=== PATIENT | female | born 1990 | race Caucasian/White ===

== ENCOUNTER 2023-08-05 14:17 | Outpatient (OUT) | payer BC, SELFPAY ==
--- NOTE | 2023-08-05 14:19 | US_ITS ---
[address] [address] Patient Name: ELVIN STUART MRN: [id number] date: 1990 Sex: F Assigned Patient Location: US Current Patient Location: US Accession/Order Number: [id number] Exam Date: 08/05/2023 14:20 Report Date: 08/05/2023 15:55 At the request of: RADAMES CHAUHAN Procedure: US OB transvaginal EXAMINATION: US OB transvaginal HISTORY: MISSED MENSES COMPARISON: No relevant comparison available. FINDINGS: GESTATIONAL SAC: Present and normal appearing. YOLK SAC: Present and normal appearing. POLE: Present and normal appearing. CARDIAC: Present. UTERUS: Normal size and appearance. OVARIES: Right: Normal. Left: Corpus lutein cyst. CERVIX: 3.8 cm in length and closed. CUL-DE-SAC: Normal. OTHER: None. AGE BY LMP: 7 weeks 5 days LOLLY BY LMP: 03/18/2024 AGE BY US CRL: 8 weeks 0 days LOLLY BY US CRL: 03/16/2024 US/US OB transvaginal IMPRESSION: 1. Single live intrauterine . Electronically authenticated by: BLU FELIPE Date: 08/05/2023 15:55
== END 2023-08-05 14:18 | disposition home or self-care (01) ==
LOC: US 14:17
PROVIDERS: Visit Provider Obstetrics & Gynecology
DX: Z34.91 Encounter for supervision of normal pregnancy, unspecified, first trimester (principal); N92.6 Irregular menstruation, unspecified
CPT/HCPCS: 76817

== ENCOUNTER 2023-09-04 08:38 | Outpatient (OUT) | payer BC, SELFPAY ==
[2023-09-04 09:13] LABS: Basophils Absolute Auto 0.1 10^3/uL (0.0-0.1); Basophils Percent Auto 1.1 % (0.2-2.0); Eosinophils Absolute Auto 0.2 10^3/uL (0.0-0.7); Eosinophils Percent Auto 2.3 % (0.9-7.0); Hematocrit 41.4 % (36.0-48.0); Hemoglobin 13.7 g/dL (12.0-16.0); Immature Granulocytes Abs Auto 0.04 10^3/uL (0.00-0.03); Immature Granulocytes Pct Auto 0.5 % (0.0-0.5); Lymphocytes Absolute Auto 2.2 10^3/uL (1.2-3.8); Lymphocytes Percent Auto 25.3 % (20.5-60.0); Mean Corpuscular HGB Conc 33.1 g/dL (29.9-35.2); Mean Corpuscular Hemoglobin 30.6 pg (26.7-34.0); Mean Corpuscular Volume 92.6 fL (81.0-99.0); Mean Platelet Volume 9.3 fL (9.5-13.5); Monocytes Absolute Auto 0.3 10^3/uL (0.3-0.8); Monocytes Percent Auto 3.4 % (1.7-12.0); Neutrophils Percent Auto 67.4 % (43.0-75.0); Platelet Count 312 10^3/uL (150-450); Red Blood Count 4.47 10^6/uL (4.20-5.40); Red Cell Distribution Width 14.1 % (11.0-15.0); White Blood Count 8.8 10^3/uL (4.0-11.0)
[2023-09-04 09:25] LABS: Estimated Average Glucose 88 mg/dL; Glycohemoglobin A1C 4.7 % (4.5-6.2)
[2023-09-04 09:35] LABS: Thyroid Stimulating Hormone 5.807 uIU/mL (0.358-3.740)
[2023-09-05 08:09] LABS: HBsAg Screen Negative (Negative); HCV Ab Non Reactive (Non Reactive); HIV Ab/p24 Ag Screen Non Reactive (Non Reactive); Rubella Antibodies, IgG 2.85 index (Immune >0.99)
[2023-09-05 09:08] LABS: Rapid Plasma Reagin, Quant Non Reactive titer (NonRea<1:1)
== END 2023-09-04 08:39 | disposition home or self-care (01) ==
LOC: LAB 08:39
PROVIDERS: Visit Provider Obstetrics & Gynecology
DX: N92.6 Irregular menstruation, unspecified (principal)
CPT/HCPCS: 36415; 83036; 84443; 85025; 86592; 86762; 86803; 86850; 86900; 86901; 87086; 87340; 87389

== ENCOUNTER 2023-11-03 13:00 | Outpatient (OUT) | payer BC, SELFPAY ==
--- NOTE | 2023-11-03 13:02 | US_ITS ---
[address] [address] Patient Name: ELVIN STUART MRN: [id number] date: 1990 Sex: F Assigned Patient Location: Current Patient Location: US Accession/Order Number: [id number] Exam Date: 11/03/2023 13:03 Report Date: 11/03/2023 15:09 At the request of: RADAMES CHAUHAN Procedure: US OB cervical length EXAMINATION: US OB anatomy, US OB cervical length HISTORY: ANATOMY COMPARISON: No relevant comparison available. FINDINGS: Heart Rate: 148.0 bpm Amniotic Fluid Volume: Subjectively normal Number: 1.0 Position: Transverse presentation, transverse lie Placenta: Posterior, grade 1. The placental edge is 2.1 cm from the os Cervix: 4.5 cm, closed Normal anatomy: Lateral ventricles, cerebellum, posterior fossa, nose, lips, orbits, four-chamber heart, RVOT, LVOT, diaphragm, stomach, kidneys, abdominal cord insertion, bladder, umbilical arteries, three-vessel cord, spine, extremities BIOMETRY: BPD: 4.5 cm cm; 19 weeks 3 days; 11% HC: 18.1 cmcm; 20 weeks 3 days , 37% AC: 15.8 cm cm; 20 weeks 6 days, 55% FL: 4.1 cm cm; 23 weeks 2 days; 97.0 % % EFW: 447.8 grams, 1 lb. 0 oz., 96% FL/AC: 26.1 FL/BPD: 92.2 HC/AC: 1.2 GESTATIONAL AGE: Age by EDC: 20 weeks 4 days LOLLY by EDC: 03/18/2024 Age by US: 20 weeks 0 days LOLLY by US: 03/15/2024 US/US OB cervical length IMPRESSION: Normal anatomy scan Closed cervix measuring 4.5 cm in length Electronically authenticated by: JESSE THOMAS Date: 11/03/2023 15:09
--- NOTE | 2023-11-03 13:02 | US_ITS ---
[address] [address] Patient Name: ELVIN STUART MRN: [id number] date: 1990 Sex: F Assigned Patient Location: Current Patient Location: US Accession/Order Number: [id number] Exam Date: 11/03/2023 13:03 Report Date: 11/03/2023 15:09 At the request of: RADAMES CHAUHAN Procedure: US OB anatomy EXAMINATION: US OB anatomy, US OB cervical length HISTORY: ANATOMY COMPARISON: No relevant comparison available. FINDINGS: Heart Rate: 148.0 bpm Amniotic Fluid Volume: Subjectively normal Number: 1.0 Position: Transverse presentation, transverse lie Placenta: Posterior, grade 1. The placental edge is 2.1 cm from the os Cervix: 4.5 cm, closed Normal anatomy: Lateral ventricles, cerebellum, posterior fossa, nose, lips, orbits, four-chamber heart, RVOT, LVOT, diaphragm, stomach, kidneys, abdominal cord insertion, bladder, umbilical arteries, three-vessel cord, spine, extremities BIOMETRY: BPD: 4.5 cm cm; 19 weeks 3 days; 11% HC: 18.1 cmcm; 20 weeks 3 days , 37% AC: 15.8 cm cm; 20 weeks 6 days, 55% FL: 4.1 cm cm; 23 weeks 2 days; 97.0 % % EFW: 447.8 grams, 1 lb. 0 oz., 96% FL/AC: 26.1 FL/BPD: 92.2 HC/AC: 1.2 GESTATIONAL AGE: Age by EDC: 20 weeks 4 days LOLLY by EDC: 03/18/2024 Age by US: 20 weeks 0 days LOLLY by US: 03/15/2024 US/US OB anatomy IMPRESSION: Normal anatomy scan Closed cervix measuring 4.5 cm in length Electronically authenticated by: JESSE THOMAS Date: 11/03/2023 15:09
== END 2023-11-03 13:01 | disposition home or self-care (01) ==
LOC: US 13:01
PROVIDERS: Visit Provider Obstetrics & Gynecology
DX: O26.812 Pregnancy related exhaustion and fatigue, second trimester (principal); E03.9 Hypothyroidism, unspecified; Z36.89 Encounter for other specified antenatal screening; Z3A.20 20 weeks gestation of pregnancy
CPT/HCPCS: 36415; 76805; 76817; 82105; 82728; 85025; 86376

== ENCOUNTER 2023-11-03 15:50 | Outpatient (OUT) | payer BC, SELFPAY ==
--- OUTSIDE RECORDS SUMMARY | 2023-11-04 10:05 | XMS_ITS | CCD ---
Author Name Unknown Address [address] [place] [address] Organization [facility] Care Team Providers Care Chief Of Production Name Role Phone Bruce Mayes Attending Unavailable [...] HER Unavailable Unavaila ble OBGYN IVF RDMS [id number] 1, MG OBGYN Unavailable Unavailable King Guevara Unavailable Unavailable Shahla Healy Unavailable Unavailable January, Jami Unavailable Unavailable Evelyn Perez Unavailable [phone] Unavailable Unavailable Unavailable Unavailable Sabina Barnhart Unavailable [...] DR CRUM Admitting Unavailable GISSEL ., DR CRMU Consulting Unavailable KARASIK ., DR SHETH Consulting [...] Admkaterine Unavailable AnaEvelyn santana Primary Care Provider [phone] JAMI ROMERO Attending Unavailable ANA, EVELYN Husain Primary Care UnavailEVELYN Tomlinson Primary Care Unavailleyda e Lc Waite Admitting Evelyn Patino [facility] Unavailable Lc Waite Attending Unavailable SHERMAN HUNTER Attending Unavailable Link [facility], Zoya Cheung Attending Robert Perez MD, Evelyn Gracia Primary Care Evelyn Hernandez MD Primary [facility] [place] Zamzam Buitrago APRNSIVA, Zoya Cheung Attending Robert ilable Allergies Allergy Classification Reported Allergen(s) Allergy Type Date of Onset Reaction(s) Facility Progesterone (2 sources) Progesterone; Translations: [Progesterone OIL] Drug Allergy [id number] n 310 IVF Work Phone: (16 sources) Progesterone; Translations: [Progesterone OIL] Drug Allergy 2 [facility] (2 sources) sesame seed extract Drug Allergy [facility] (1 source) No Known Medication Allergies; Translations: [No Known Medication Allergies] Propensity to adverse reactions to drug (disorder) [facility] Repository Medications Current Medications Medication Drug Class(es) [...] Kelechi Gage MD Start : 14-Aug-2019 Active [id number] 200 actuat albuterol 0.09 mg/actuat metered dose [...] DO Start : 19-Jan-2019 Active BD Disp Devon 27G X 1/2 (19 sources) Start: 10-03-2019 BD Disp Needle s 27G X 1/2 USE DIRECTED. Quantity: 2 Refills: 2 Shahla Healy MD Start : 03-Oct-2019 Active chorionic gonadotropin 71986 unt/ml injectable solution (19 sources) Gonadotropin Start: 10-03-2019 Chorionic Gonadotropin 14647 UNIT Intramuscular Solution Reconstituted USE DIRECTED. Quantity: [...] 75 UNIT Daily Quantity: 1 Refills: 4 Shahal Healy MD Start : 03-Oct-2019 Active 0.42 [...] Start : 25-Dec-2019 Active Peak Flow Meter Woodland Rang Device (3 sources) Start: 01-23-2020 Peak Flow Mete r Woodland Rang Device USE DIRECTED. Quantity: 1 Refills: [...] Demographics: Name: KIARA ASHLEY Date: 1990 Address: [address] [place] [address] Date and Time: 12-Jul-2023 09:31 Caller Information: call from Call From: patient Caller Name: Kiara Primary Phone Number: [phone] Reason for Call: Reason for Callmedication question [...] 09:57 by Harmony Ross (N MGR) Normal [facility] XR ANKLE LEFT (MIN 3 [...] Dario William MD 02/27/23 Final result Normal [facility] 1. No acute osseous abnormality involving the left ankle. [facility] RIS CONSOLIDATED EXAMINATION: THREE XRAY VIEWS OF [...] acute osseous abnormality involving the left ankle. [facility] Phone: Radiology Study observation (narrative) [facility] Phone: XR ANKLE LEFT (MIN 3 VIEWS)O rdered By: Dario William on 02-27-2023 [facility] Phone: PAP ACOG PANEL 2: 30 to 65on 01-19-2023 . . Normal [facility] Comment on above: Result Comment: Perf ormed at: WB Performed By: #### [id number] #### [facility] [address] [place] [address] Dr. Claire Mayes Age Gdln ACOG Testing 30-65 Normal [facility] Comment on above: Performed By: #### [id number] #### [facility] [address] [address] [address] Claire Mayes DIAGNOSIS: Comment Normal [facility] Comment on above: Result Comment: NEGA TIVE FOR INTRAEPITHELIAL LESION OR MALIGNANCY. Performed at: WB Performed By: #### 4 [id number] #### [facility] [address] [address] [address] Claire Mayes HPV Aptima Negative Normal Negative [facility] Comment on above: Result Comment: This nucleic acid amplification test detects fourteen high-risk HPV types (16,18,31,33,35,39,45,51,52,56,58,59,66,68) without differentiation. Performed at: =G Performed By: #### 4 [id number] #### [facility] [address] [place] [address] Dr. Claire Mayes HPV Genotype Reflex Comment Normal [facility] Comment on above: Result Comment: Crit eria not met, HPV Genotype not performed. Performed at: WB Performed By: #### 4 [id number] #### [facility] [address] [place] [address] Dr. Claire Mayes Methodology: Comment Normal [facility] Comment on above: Result Comment: This liquid based ThinPrep(R) pap test was screened with the use of an image guided system. Performed at: WB Performed By: #### 4 [id number] #### [facility] [address] [place] [address] Dr. Claire Mayes Note: Comment Normal [facility] Comment on above: Result Comment: The Pap smear is a screening test designed to aid in the detection of premalignant and malignant conditions of the uterine cervix. It is not a diagnostic procedure and should not be used as the sole means of detecting cervical cancer. Both false-positive and false-negative reports do occur. . Performed at: WB Performed By: #### [id number] #### [facility] [address] [place] [address] Dr. Claire Mayes Performed by: Comment Normal [facility] Comment on above: Result Comment: Sherlyn Wright, Editor Continuity And Script (ASCP) Performed at: WB Performed By: #### [id number] #### [facility] [address] [place] [address] Dr. Claire Mayes Specimen adequacy: Comment Normal [facility] Comment on above: Result Comment: Sati sfactory for evaluation. No endocervical component is identified. Performed at: WB Performed By: #### 4 [id number] #### [facility] [address] [place] [address] Dr. Claire Mayes CBC with Diffon 09-22-2022 Abs. Basophil 0.03 k/uL Normal 0.00-0.20 [facility] Comment on above: Performed By: #### L IP, CDP, CP #### [address] [place], [place] [id number] Box Inspector: Jesse Curry MD Abs.Imm.Granulocy te 0.04 k/uL Normal 0.00-0.30 [facility] Comment on above: Performed By: #### L IP, CDP, CP #### [address] [place], [facility]83 Box Inspector: Jesse Curry MD Abs.Neutrophil (Seg) 12.54 k/uL High 1.50-8.10 [facility] Comment on above: Performed By: #### L IP, CDP, CP #### [address] [place] [id number] Box Inspector: Jesse Curry MD Basophils/100 WBC (Bld) 0 % Normal 0-2 [facility] Comment on above: Performed By: #### L IP, CDP, CP #### [address] [place], [facility] Box Inspector: Jesse Curry MD Eosinophils (Bld) [#/Vol] 0.16 10*3/uL Normal 0.00-0.44 [facility] Comment on above: Performed By: #### L IP, CDP, CP #### [address] [place], [facility]83 Box Inspector: Jesse Curry MD Eosinophils/100 WBC (Bld) 1 % Normal 1-4 [facility] Comment on above: Performed By: #### L IP, CDP, CP #### [address] [place], [facility]83 Box Inspector: Jesse Curry MD Erythrocyte distribution width (RBC) [Ratio] 13.6 % Normal 11.8-14.4 [facility] Comment on above: Performed By: #### L IP, CDP, CP #### [address] [place], [facility]83 Box Inspector: Jesse Curry MD Hematocrit (Bld) [Volume fraction] 46.4 % Normal 36.3-47.1 [facility] Comment on above: Performed By: #### L IP, CDP, CP #### [facility] [address] [place], [place] [id number] Box Inspector: Jesse Curry MD Hemoglobin (Bld) [Mass/Vol] 15.6 g/dL High 11.9-15.1 [facility] Comment on above: Performed By: #### L IP, CDP, CP #### [address] [place], [place] [id number] Box Inspector: Jesse Curry MD Immature granulocytes/100 WBC (Bld) 0 % Normal 0 [facility] Comment on above: Performed By: #### L IP, CDP, CP #### [facility] [address] [place] [address] Dr. [place], [place] [id number] Box Inspector: Jesse Curry MD Lymphocytes (Bld) [#/Vol] 0.98 10*3/uL Low 1.10-3.70 [facility] Comment on above: Performed By: #### L IP CDP, CP #### [address] [place], [place] [id number] Box Inspector: Jesse Curry MD Lymphocytes/100 WBC (Bld) 7 % Low 24-43 [facility] Comment on above: Performed By: #### L IP, CDP, CP #### [facility] [address] [place] [address] Dr. [place], [place] [id number] Box Inspector: Jesse Curry MD MCH (RBC) [Entitic mass] 30.4 pg Normal 25.2-33.5 [facility] Comment on above: Performed By: #### L IP, CDP, CP #### [facility] [address] [place] [address] Dr. [place], [place] [id number] Box Inspector: Jesse Curry MD MCHC (RBC) [Mass/Vol] 33.6 g/dL Normal 28.4-34.8 [facility] Comment on above: Performed By: #### L BJ BUCK, CP #### [facility] [address] [place], [place] [id number] Box Inspector: Jesse Curry MD MCV (RBC) [Entitic vol] 90.3 fL Normal 82.6-102.9 [facility] Comment on above: Performed By: #### L IP CDP, CP #### [address] [place] [address] Box Inspector: Jesse Curry MD Monocytes (Bld) [#/Vol] 0.58 10*3/uL Normal 0.10-1.20 [facility] Comment on above: Performed By: #### L BJ BUCK, CP #### [address] [place], [facility]83 Box Inspector: Jesse Curry MD Monocytes/100 WBC (Bld) 4 % Normal 3-12 [facility] Comment on above: Performed By: #### L BJ BUCK, CP #### [address] [place], [place] [id number] Box Inspector: Jesse Curry MD Neutrophil (Seg) 88 % High 36-65 [facility] Comment on above: Performed By: #### L BJ BUCK, CP #### [address] [place], [place] [id number] Box Inspector: Jesse Curry MD NRBC Automated 0.0 per 100 WBC Normal 0.0 [facility] Comment on above: Performed By: #### L BJ BUCK, CP #### [address] [place], [place] [id number] Box Inspector: Jesse Curry MD Platelet mean volume (Bld) [Entitic vol] 9.9 fL Normal 8.1-13.5 [facility] Comment on above: Performed By: #### L IP CDP, CP #### [facility] [address] [place], [place] [id number] Box Inspector: Jesse Curry MD Platelets (Bld) [#/Vol] 299 10*3/uL Normal 138-453 [facility] Comment on above: Performed By: #### L IP CDP, CP #### [facility] [address] [place], [place] [id number] Box Inspector: Jesse Curry MD RBC (Bld) [#/Vol] 5.14 10*6/uL High 3.95-5.11 [facility] Comment on above: Performed By: #### L CIELO CDP, CP #### [address] [place], [place] [id number] Box Inspector: Jesse Curry MD WBC (Bld) [#/Vol] 14.3 10*3/uL High 3.5-11.3 [facility] Comment on above: Performed By: #### L CIELO CDP, CP #### [address] [place], [facility]83 Box Inspector: Jesse Curry MD CT ABDOMEN PELVIS W [...] A Maldonado DO 09/22/22 Final result Normal [facility] Comp Metabolic Profon 2021 Albumin [Mass/Vol] 4.7 g/dL Normal 3.5-5.2 [facility] Comment on above: Performed By: #### L CIELO CDP, CP #### [facility] [address] [place] [address] [place] [id number] Box Inspector: Jesse Curry MD Albumin/Glob Ratio 2.0 Normal 1.0-2.5 [facility] Comment on above: Performed By: #### L CIELO CDP, CP #### [facility] [address] [place] [address] [place] [id number] Box Inspector: Jesse Curry MD Alkaline Phos 77 U/L Normal 35-104 [facility] Comment on above: Performed By: #### L CIELO CDP, CP #### [address] [place] [address] Box Inspector: Jesse Curry MD ALT [Catalytic activity/Vol] 10 U/L Normal 5-33 [facility] Comment on above: Performed By: #### L IP, CDP, CP #### [facility] [address] [place] [address] Dr. [place], [place] [id number] Box Inspector: Jesse Curry MD Anion gap [Moles/Vol] 12 mmol/L Normal 9-17 [facility] Comment on above: Performed By: #### L IP, CDP, CP #### [facility] [address] [place], [place] [id number] Box Inspector: Jesse Curry MD AST [Catalytic activity/Vol] 14 U/L Normal <32 [facility] Comment on above: Performed By: #### L IP, CDP, CP #### [facility] [address] [place], [place] [id number] Box Inspector: Jesse Curry MD Bilirubin [Mass/Vol] 0.6 mg/dL Normal 0.3-1.2 [facility] Comment on above: Performed By: #### L IP, CDP, CP #### [facility] [address] [place] [address] Dr. [place], [place] [id number] Box Inspector: Jesse Curry MD BUN/CRE Ratio 31 High 9-20 [facility] Comment on above: Performed By: #### L IP, CDP, CP #### [address] [place], [place] [id number] Box Inspector: Jesse Curry MD Calcium [Mass/Vol] 9.8 mg/dL Normal 8.6-10.4 [facility] Comment on above: Performed By: #### L IP, CDP, CP #### [facility] [address] [place] [address] Dr. [place], [place] [id number] Box Inspector: Jesse Curry MD Chloride [Moles/Vol] 104 mmol/L Normal 98-107 [facility] Comment on above: Performed By: #### L IP, CDP, CP #### [facility] [address] [place], [place] [id number] Box Inspector: Jesse Curry MD CO2 [Moles/Vol] 22 mmol/L Normal 20-31 [facility] Comment on above: Performed By: #### L IP, CDP, CP #### [facility] [address] [place] [address] Box Inspector: Jesse Curry MD Creatinine [Mass/Vol] 0.85 mg/dL Normal 0.50-0.90 [facility] Comment on above: Performed By: #### L IP, CDP, CP #### [facility] [address] [place] [address] Box Inspector: Jesse Curry MD GFR/1.73 sq M.predicted among non-blacks MDRD (S/P/Bld) [Vol rate/Area] mL/min/{1.73_m2} Normal >60 [facility] Comment on above: Result Comment: Effective Aug [...] By: #### L CIELO CDP, CP #### [facility] [address] [place] [address] Box Inspector: Jesse Curry MD Glucose [Mass/Vol] 109 mg/dL High 70-99 [facility] Comment on above: Performed By: #### L IP, CDP, CP #### [facility] [address] [place] [address] Box Inspector: Jesse Curry MD Potassium [Moles/Vol] 4.0 mmol/L Normal 3.7-5.3 [facility] Comment on above: Performed By: #### L IP, CDP, CP #### [facility] [address] [place] [address] Box Inspector: Jesse Curry MD Protein [Mass/Vol] 7.1 g/dL Normal 6.4-8.3 [facility] Comment on above: Performed By: #### L BJ BUCK, CP #### [facility] [address] [place] [address] Box Inspector: Jesse Curry MD Sodium [Moles/Vol] 138 mmol/L Normal 135-144 [facility] Comment on above: Performed By: #### L IP CDP, CP #### [facility] [address] [place] [address] Box Inspector: Jesse Curry MD Urea nitrogen [Mass/Vol] 26 mg/dL High 6-20 [facility] Comment on above: Performed By: #### L BJ BUCK, CP #### [facility] [address] [place] [address] Box Inspector: Jesse Curry MD HCG, ,Urineon 09-22 Beta HCG ( test) Ql (U) Negative Normal NEG [facility] Comment on above: Result Comment: Spec imens with hCG levels near the threshold of the test (25 mIU/mL) may give a negative or indeterminate result. In such cases, another test should be performed with a new specimen in 48-72 hours. If early is suspected clinically in this setting, correlation with quantitative serum b-hCG level is suggested. [facility] has confirmed the use of plasma for this test. This has not been cleared or approved by the U.S. Food and Drug Administration. The FDA has determined that such clearance is not necessary. Performed By: #### U HCG #### [facility] [address] [place] [address] Box Inspector: Jesse Curry MD Lactic Acidon 09-22-2022 Lactate [Moles/Vol] 1.8 mmol/L Normal 0.5-2.2 [facility] Comment on above: Performed By: #### L ACTIC #### [facility] [address] [place] [address] Box Inspector: Jesse Curry MD Lipaseon 09-22-2022 Lipase [Catalytic activity/Vol] 39 U/L Normal 13-60 [facility] Comment on above: Performed By: #### L IP, CDP, CP #### [facility] [address] [place], [place] [id number] Box Inspector: Jesse Curry MD UA w/Reflex Cultureon 2021 Bilirubin, SemiQt,Ur Negative Normal NEG [facility] Comment on above: Performed By: #### U MICAO, UAX #### [facility] [address] [place], [facility]83 Box Inspector: Jesse Curry MD Blood, Urine Negative Normal NEG [facility] Comment on above: Performed By: #### U MICAO, UAX #### [facility] [address] [place], [facility] Box Inspector: Jesse Curry MD Clarity (U) Clear Normal CLEAR [facility] Comment on above: Performed By: #### U MICAO, UAX #### [facility] [address] [place] [address] Dr. [place], [place] [id number] Box Inspector: Jesse Curry MD Color (U) Yellow Normal YEL [facility] Comment on above: Performed By: #### U MICAO, UAX #### [facility] [address] [place], [facility] Box Inspector: Jesse Curry MD Glucose Ql (U) Negative Normal NEG [facility] Comment on above: Performed By: #### U MICAO, UAX #### [facility] [address] [place], [place] [id number] Box Inspector: Jesse Curry MD Ketones Ql (U) Negative Normal NEG [facility] Comment on above: Performed By: #### U MICAO, UAX #### [facility] [address] [place] [address] Dr. [place], [place] [id number] Box Inspector: Jesse Curry MD Leukocyte esterase Test strip Ql (U) Negative Normal NEG [facility] Comment on above: Performed By: #### U MICAO, UAX #### [address] [place], [place] [id number] Box Inspector: Jesse Curry MD Nitrite,Ur Negative Normal NEG [facility] Comment on above: Performed By: #### U MICAO, UAX #### [address] [place], [facility] Box Inspector: Jesse Curry MD PH,Ur 8.0 Normal 5.0-9.0 [facility] Comment on above: Performed By: #### U MICAO, UAX #### [address] [place], [facility]83 Box Inspector: Jesse Curry MD Protein Ql (U) Negative Normal NEG [facility] Comment on above: Performed By: #### U MICAO, UAX #### [address] [place], [facility] Box Inspector: Jesse Curry MD Spec. [place],Ur 1.020 Normal 1.010-1.020 [facility] Comment on above: Performed By: #### U MICAO, UAX #### [address] [place], [facility]83 Box Inspector: Jesse Curry MD Urobilinogen,Ur Normal Normal NORM [facility] Comment on above: Performed By: #### U MICAO, UAX #### [address] [place], [facility] Box Inspector: Jesse Curry MD Urinalysis,Microon 2 Bacteria TRACE Abnormal NONE [facility] Comment on above: Performed By: #### U MICAO, UAX #### [facility] [address] [place], [place] [id number] Box Inspector: Jesse Curry MD Epithelial cells LM Ql (Urine sed) 0 TO 2 Normal 0-25 [facility] Comment on above: Performed By: #### U MICAO, UAX #### [facility] [address] [place], [place] [id number] Box Inspector: Jesse Curry MD Urine RBC's None Normal 0-2 [facility] Comment on above: Performed By: #### U MICAO, UAX #### [facility] [address] [place] [address] Box Inspector: Jesse Curry MD Urine WBC's 0 TO 2 Normal 0-5 [facility] Comment on above: Performed By: #### U MICAO, UAX #### [facility] [address] [place] [address] Box Inspector: Jesse Curry MD CBC AUTO DIFFon 02-20-2022 BASO # 0.1 103/ul Normal 0.0-0.1 [facility] Comment on above: Performed By: #### C BC #### [facility] [address] [place] [address] Dr. Claire Mayes Basophils/100 WBC (Bld) 0.8 % Normal 0.2-2.0 [facility] Comment on above: Performed By: #### C BC #### [facility] [address] [place] [address] Dr. Claire Mayes EO # 0.2 103/ul Normal 0.0-0.7 [facility] Comment on above: Performed By: #### C BC #### [facility] [address] [place] [address] Dr. Claire Mayes Eosinophils/100 WBC (Bld) 0.9 % Normal 0.9-7.0 [facility] Comment on above: Performed By: #### C BC #### [facility] [address] [place] [address] Dr. Claire Mayes Erythrocyte distribution width (RBC) [Ratio] 15.0 % Normal 11.0-15.0 [facility] Comment on above: Performed By: #### C BC #### [facility] [address] [place] [address] Dr. Claire Mayes Hematocrit (Bld) [Volume fraction] 31.3 % Critically low 36.0-48.0 [facility] Comment on above: Performed By: #### C BC #### [facility] [address] [place] [address] Dr. Claire Mayes Hemoglobin (Bld) [Mass/Vol] 10.3 g/dL Critically low 12.0-16.0 [facility] Comment on above: Performed By: #### C BC #### [facility] [address] [place] [address] Dr. Claire Mayes IG # 0.21 10e3/ul Critically high 0.00-0.03 [facility] Comment on above: Performed By: #### C BC #### [facility] [address] [place] [address] Dr. Claire Mayes IG % 1.3 % Critically high 0.0-0.5 [facility] Comment on above: Performed By: #### C BC #### [facility] [address] [place] [address] Dr. Claire Mayes LYMPH # 2.1 103/ul Normal 1.2-3.8 [facility] Comment on above: Performed By: #### C BC #### [facility] [address] [place] [address] Dr. Claire Mayes Lymphocytes/100 WBC (Bld) 12.6 % Critically low 20.5-60.0 [facility] Comment on above: Performed By: #### C BC #### [facility] [address] [place] [address] Dr. Claire Mayes MANUAL DIFF REQ NO Normal [facility] Comment on above: Performed By: #### C BC #### [facility] [address] [place] [address] Dr. Claire Mayes MCH (RBC) [Entitic mass] 29.8 pg Normal 26.7-34.0 [facility] Comment on above: Performed By: #### C BC #### [facility] [address] [place] [address] Dr. Claire Mayes MCHC (RBC) [Mass/Vol] 32.9 g/dL Normal 29.9-35.2 [facility] Comment on above: Performed By: #### C BC #### [facility] [address] [place] [address] Dr. Claire Mayes MCV (RBC) [Entitic vol] 90.5 fL Normal 81.0-99.0 [facility] Comment on above: Performed By: #### C BC #### [facility] [address] [place] [address] Dr. Claire Mayes MONO # 0.8 103/ul Normal 0.3-0.8 [facility] Comment on above: Performed By: #### C BC #### [facility] [address] [place] [address] Dr. Claire Mayes Monocytes/100 WBC (Bld) 5.1 % Normal 1.7-12.0 [facility] Comment on above: Performed By: #### C BC #### [facility] [address] [place] [address] Dr. Claire Mayes NEUT # 13.2 103/ul Critically high 1.4-6.5 [facility] Comment on above: Performed By: #### C BC #### [facility] [address] [place] [address] Dr. Claire Mayes Neutrophils/100 WBC (Bld) 79.3 % Critically high 43.0-75.0 [facility] Comment on above: Performed By: #### C BC #### [facility] [address] [place] [address] Dr. Claire Mayes Platelet mean volume (Bld) [Entitic vol] 10.4 fL Normal 9.5-13.5 [facility] Comment on above: Performed By: #### C BC #### [facility] [address] [place] [address] Dr. Claire Mayes PLT 233 103/ul Normal 150-450 [facility] Comment on above: Performed By: #### C BC #### [facility] [address] [place] [address] Dr. Claire Mayes RBC 3.46 106/ul Critically low 4.20-5.40 [facility] Comment on above: Performed By: #### C BC #### [facility] [address] [place] [address] Dr. Claire Mayes WBC 16.6 103/ul Critically high 4.0-11.0 [facility] Comment on above: Performed By: #### C BC #### [facility] [address] [place] [address] Dr. Claire Mayes CBC AUTO DIFFon 02-18-2022 BASO # 0.1 103/ul Normal 0.0-0.1 [facility] Comment on above: Performed By: #### C BC #### [facility] [address] [place] [address] Dr. Claire Mayes Basophils/100 WBC (Bld) 0.7 % Normal 0.2-2.0 [facility] Comment on above: Performed By: #### C BC #### [facility] [address] [place] [address] Dr. Claire Mayes EO # 0.2 103/ul Normal 0.0-0.7 [facility] Comment on above: Performed By: #### C BC #### [facility] [address] [place] [address] Dr. Claire Mayes Eosinophils/100 WBC (Bld) 1.2 % Normal 0.9-7.0 [facility] Comment on above: Performed By: #### C BC #### [facility] [address] [place] [address] Dr. Claire Mayes Erythrocyte distribution width (RBC) [Ratio] 15.0 % Normal 11.0-15.0 [facility] Comment on above: Performed By: #### C BC #### [facility] [address] [place] [address] Dr. Claire Mayes Hematocrit (Bld) [Volume fraction] 35.1 % Critically low 36.0-48.0 [facility] Comment on above: Performed By: #### C BC #### [facility] [address] [place] [address] Dr. Claire Mayes Hemoglobin (Bld) [Mass/Vol] 11.8 g/dL Critically low 12.0-16.0 [facility] Comment on above: Performed By: #### C BC #### [facility] [address] [place] [address] Dr. Claire Mayes IG # 0.30 10e3/ul Critically high 0.00-0.03 [facility] Comment on above: Performed By: #### C BC #### [facility] [address] [place] [address] Dr. Claire Mayes IG % 1.9 % Critically high 0.0-0.5 [facility] Comment on above: Performed By: #### C BC #### [facility] [address] [place] [address] Dr. Claire Mayes LYMPH # 2.9 103/ul Normal 1.2-3.8 [facility] Comment on above: Performed By: #### C BC #### [facility] [address] [place] [address] Dr. Claire Mayes Lymphocytes/100 WBC (Bld) 18.5 % Critically low 20.5-60.0 [facility] Comment on above: Performed By: #### C BC #### [facility] [address] [place] [address] Dr. Claire Mayes MANUAL DIFF REQ NO Normal [facility] Comment on above: Performed By: #### C BC #### [facility] [address] [place] [address] Dr. Claire Mayes MCH (RBC) [Entitic mass] 30.2 pg Normal 26.7-34.0 [facility] Comment on above: Performed By: #### C BC #### [facility] [address] [place] [address] Dr. Claire Mayes MCHC (RBC) [Mass/Vol] 33.6 g/dL Normal 29.9-35.2 [facility] Comment on above: Performed By: #### C BC #### [facility] [address] [place] [address] Dr. Claire Mayes MCV (RBC) [Entitic vol] 89.8 fL Normal 81.0-99.0 [facility] Comment on above: Performed By: #### C BC #### [facility] [address] [place] [address] Dr. Claire Mayes MONO # 0.7 103/ul Normal 0.3-0.8 [facility] Comment on above: Performed By: #### C BC #### [facility] [address] [place] [address] Dr. Claire Mayes Monocytes/100 WBC (Bld) 4.7 % Normal 1.7-12.0 [facility] Comment on above: Performed By: #### C BC #### [facility] [address] [place] [address] Dr. Claire Mayes NEUT # 11.3 103/ul Critically high 1.4-6.5 [facility] Comment on above: Performed By: #### C BC #### [facility] [address] [place] [address] Dr. Claire Mayes Neutrophils/100 WBC (Bld) 73.0 % Normal 43.0-75.0 [facility] Comment on above: Performed By: #### C BC #### [facility] [address] [place] [address] Dr. Claire Mayes Platelet mean volume (Bld) [Entitic vol] 10.8 fL Normal 9.5-13.5 [facility] Comment on above: Performed By: #### C BC #### [facility] [address] [place] [address] Dr. Claire Mayes PLT 233 103/ul Normal 150-450 [facility] Comment on above: Performed By: #### C BC #### [facility] [address] [place] [address] Dr. Claire Mayes RBC 3.91 106/ul Critically low 4.20-5.40 [facility] Comment on above: Performed By: #### C BC #### [facility] [address] [address] [address] Claire Mayes WBC 15.5 103/ul Critically high 4.0-11.0 [facility] Comment on above: Performed By: #### C BC #### [facility] [address] [address] [address] Claire Mayes Covid-19 PCR ([facility])on SARS-CoV-2 (COVID-19) RNA FERDINAND+probe Ql (Unsp spec) Not detected Normal NOT DETECTED [facility] Comment on above: Result Comment: [...] for this test is supported by the [place] of Health and Human Service's declaration that [...] used). Performed By: #### C VDTBH #### [facility] [address] [address] [address] Claire Mayes DRUG SCREEN RAPID (URINE)on 02-18-2022 AMP Negative Normal NEGATIVE [facility] Comment on above: Performed By: #### D RUGRPD #### [facility] [address] [place] [address] Dr. Claire Mayes BAR Negative Normal NEGATIVE [facility] Comment on above: Performed By: #### D RUGRPD #### [facility] [address] [place] [address] Dr. Claire Mayes BUP Negative Normal NEGATIVE [facility] Comment on above: Performed By: #### D RUGRPD #### [facility] [address] [place] [address] Dr. Claire Mayes BZO Negative Normal NEGATIVE [facility] Comment on above: Performed By: #### D RUGRPD #### [facility] [address] [place] [address] Dr. Claire Mayes KIT Negative Normal NEGATIVE [facility] Comment on above: Performed By: #### D RUGRPD #### [facility] [address] [place] [address] Dr. Claire Mayes CUT-OFFS SEE BELOW Normal [facility] Comment on above: Result Comment: AMP [...] ng/mL Performed By: #### D RUGRPD #### [facility] [address] [place] [address] Dr. Claire Mayes DRUG CUT HEADER DRUG CLASS TEST SYST EM CUT-OFF CONCENTRATIONS ARE FOLLOWS: Normal [facility] Comment on above: Performed By: #### D RUGRPD #### [facility] [address] [place] [address] Dr. Claire Mayes mAMP Negative Normal NEGATIVE [facility] Comment on above: Performed By: #### D RUGRPD #### [facility] [address] [place] [address] Dr. Claire Mayes MTD Negative Normal NEGATIVE [facility] Comment on above: Performed By: #### D RUGRPD #### [facility] [address] [place] [address] Dr. Claire Mayes OPI Negative Normal NEGATIVE [facility] Comment on above: Performed By: #### D RUGRPD #### [facility] [address] [place] [address] Dr. Claire Mayes OXY Negative Normal NEGATIVE [facility] Comment on above: Performed By: #### D RUGRPD #### [facility] [address] [place] [address] Dr. Claire Mayes PCP Negative Normal NEGATIVE [facility] Comment on above: Performed By: #### D RUGRPD #### [facility] [address] [place] [address] Dr. Claire Mayes PPX Negative Normal NEGATIVE [facility] Comment on above: Performed By: #### D RUGRPD #### [facility] [address] [place] [address] Dr. Claire Mayes TCA Negative Normal NEGATIVE [facility] Comment on above: Performed By: #### D RUGRPD #### [facility] [address] [place] [address] Dr. Claire Mayes THC Negative Normal NEGATIVE [facility] Comment on above: Performed By: #### D RUGRPD #### [facility] [address] [place] [address] Dr. Claire Mayes TYPE AND SCREENon 02-18-2022 TYPE AND SCREEN Negative Normal [facility] Comment on above: Performed By: #### T NS #### [facility] [address] [place] [address] Dr. Claire Mayes US PREG BIOPHY W [...] JESSE THOMAS Date: 2022-02-17 14:27 Normal [facility] US PREG BIOPHY W NON [...] BLU FELIPE Date: 2022-02-10 16:40 Normal [facility] GROUP B STREP CULTUREon 01-14 S. agalactiae Ag Ql (Unsp spec) Culture Observations: Beta Strep called to Belgica Lange at office 02/04/22 @[address] [place] [address] Isolate 1 Streptococcus agalactiae Heavy growth of ORGANISM 1 Streptococcus agalactiae ANTIBIOTIC M.I.C RX STATUS Benzylpenicillin <=0.06 S F Ampicillin <=0.25 S F Cefotaxime <=0.12 S F Ceftriaxone <=0.12 S F Levofloxacin 0.5 S F Erythromycin 2 R F Clindamycin <=0.25 S F Linezolid <=2 S F Vancomycin 0.5 S F Tetracycline >=16 R F Normal [facility] Comment on above: Performed By: #### G BSCX #### [facility] [address] [place] [address] Dr. Claire Mayes US PREG BIOPHY W [...] by: JESSE THOMAS Date: 2022-02-03 16:02 Normal [facility] LMPon 06-19-2021 Last menstrual period start date [id number] TP-HRFNP-Jwtai n 310 IVF Work Phone: PRODUCTION CLOTH CUTTER - Office Visiton PRODUCTION CLOTH CUTTER - Office Visit Diagnoses/Problems Assessed Irregular menses (626.4) (N92.6) Female infertility (628.9) (N97.9) Protein S deficiency (289.81) (D68.59) Occupation Formerly [employer] [employer] ED Provider Impressions 30 year-old desires [...] ] Imaging: Saline US, can do at [place] [x ] Vitamin D, TSH, prolactin [ [...] Verbal consent was requested and obtained from KIARA ASHLEY on this date, 06/19/2021 03:00 PM , for a telehealth visit. Pt presents for a FUV to discuss transferring their remaining embryo. Geena GIL. Telemedicine visit due to COVID-19 pandemic. Verbal consent obtained for telemedicine visit. 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 Hx: LMP: 05/29/21 Menstrual cycles: Have been fairly regular for the past 3 months; 30-35 days Pap smear: 2019, up to date Mammogram: None PMH/Surg Hx/Social Hx: See below Hx of Clotting disorders: Yes- Protein S deficiency Currently on Lovenox 40 mg daily Was on Lovenox 60 mg daily prior to Needs to be on therapeutic dosing when Genetic Screening Hx: [employer] screen negative Partner History: Franklin Ashley 04/09/1990 SA in past year: 2.8 cc 125 mil/mL 69% motility WKI=624 million (recent IUI sample) Morph from original SA was 2.8% Active Problems Problems 16 weeks gest (more content not included)... Normal [employer] CBC AND DIFFERENTIALon 08-06 % AUTOMATED IMMATURE GRAN 0.3 % Normal 0.0 - 0.9 [facility] Comment on above: Result Comment: Graciela ture Granulocyte Count (IG) includes promyelocytes, myelocytes and metamyelocytes but does not include bands. Percent differential counts (%) should be interpreted in the context of the absolute cell counts (cells/L). Performed By: #### C BCDF #### [address] [place] [address] Basophils (Bld) [#/Vol] 0.09 10*3/uL Normal 0.00 - 0.10 [facility] Comment on above: Performed By: #### C BCDF #### [address] [place] [address] Basophils/100 WBC (Bld) 0.9 % Normal 0.0 - 2.0 [facility] Comment on above: Performed By: #### C BCDF #### [address] [place] [address] Eosinophils (Bld) [#/Vol] 0.23 10*3/uL Normal 0.00 - 0.70 [facility] Comment on above: Performed By: #### C BCDF #### [address] [place] [address] Eosinophils/100 WBC (Bld) 2.4 % Normal 0.0 - 6.0 [facility] Comment on above: Performed By: #### C BCDF #### [address] [place] [address] Erythrocyte distribution width (RBC) [Ratio] 14.3 % Normal 11.5 - 14.5 [facility] Comment on above: Performed By: #### C BCDF #### [address] [place] [address] Hematocrit (Bld) [Volume fraction] 40.4 % Normal 36.0 - 46.0 [facility] Comment on above: Performed By: #### C BCDF #### [address] [place] [address] Hemoglobin (Bld) [Mass/Vol] 12.9 g/dL Normal 12.0 - 16.0 [facility] Comment on above: Performed By: #### C BCDF #### [address] [place] [address] Lymphocytes (Bld) [#/Vol] 2.44 10*3/uL Normal 1.20 - 4.80 [facility] Comment on above: Performed By: #### C BCDF #### [address] [place] [address] Lymphocytes/100 WBC (Bld) 25.7 % Normal 13.0 - 44.0 [facility] Comment on above: Performed By: #### C BCDF #### [address] [place] [address] MCHC (RBC) [Mass/Vol] 31.9 g/dL Low 32.0 - 36.0 [facility] Comment on above: Performed By: #### C BCDF #### [address] [place] [address] MCV (RBC) [Entitic vol] 88 fL Normal 80 - 100 [facility] Comment on above: Performed By: #### C BCDF #### [address] [place] [address] Monocytes (Bld) [#/Vol] 0.55 10*3/uL Normal 0.10 - 1.00 [facility] Comment on above: Performed By: #### C BCDF #### [address] [place] [address] Monocytes/100 WBC (Bld) 5.8 % Normal 2.0 - 10.0 [facility] Comment on above: Performed By: #### C BCDF #### [address] [place] [address] Neutrophils (Bld) [#/Vol] 6.15 10*3/uL Normal 1.20 - 7.70 [facility] Comment on above: Performed By: #### C BCDF #### [address] [place] [address] Neutrophils/100 WBC (Bld) 64.9 % Normal 40.0 - 80.0 [facility] Comment on above: Performed By: #### C BCDF #### [address] [place] [address] Platelets (Bld) [#/Vol] 410 10*3/uL Normal 150 - 450 [facility] Comment on above: Performed By: #### C BCDF #### [address] [place] [address] RBC (Bld) [#/Vol] 4.58 x10E12/L Normal 4.00 - 5.20 [facility] Comment on above: Performed By: #### C BCDF #### [address] [place] [address] WBC (Bld) [#/Vol] 9.5 10*3/uL Normal 4.4 - 11.3 [facility] Comment on above: Performed By: #### C BCDF #### [address] 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 Reports her asthma is stable. [...] or homicidal ideation Vitals Vital Signs Recorded: [id number] 01:08PM Heart Rate62 Unbqsqfk329 Umvtkhklw58 Height5 ft 2 in Ghnswg132 lb BMI Vfgvjsfwsx50.28 BSA Calculated1.79 Tobacco Useb) No Fall Screeninga) [...] ongoing well-woman care with her current local Tractor Mechanic Helper. She has Hematology follow-up today following our [...] Aug 06 2020 2:00PM EST (Author) Normal E[employer] Education Complete Blood Count + Diffe marc 06-27-2020 Basophils/100 WBC (Bld) 0.5 % 0.0 - 2.0 DE-RJONY-Wfkww [address] Work Phone: Eosinophils (Bld) [#/Vol] 0.24 {x10E9/L} See Below YJ-VJGYN-Lpcpk wn 2nd Fl Work Phone: Comment on above: Reference Range: 0.0 0 - 0.70 Eosinophils/100 WBC (Bld) 1.1 % 0.0 - 6.0 EU-TUZMQ-Sbnpj wn [facility] Fl Work Phone: Erythrocyte distribution width (RBC) [Ratio] 15.0 % above high threshold See Below QL-UBKUH-Elhvd wn 2nd Fl Work Phone: Comment on above: Reference Range: 11. 5 - 14.5 Hematocrit (Bld) [Volume fraction] 30.0 % below low threshold See Below ZW-SKAAZ-Gzabn wn 2nd Fl Work Phone: Comment on above: Reference Range: 36. 0 - 46.0 Hemoglobin (Bld) [Mass/Vol] 9.8 g/dL below low threshold See Below XP-XXPJU-Afpra wn 2nd Fl Work Phone: Comment on above: Reference Range: 12. 0 - 16.0 Lymphocytes (Bld) [#/Vol] 2.25 {x10E9/L} See Below XW-UQCFP-Cqwyx wn 2nd Fl Work Phone: Comment on above: Reference Range: 1.2 0 - 4.80 Lymphocytes/100 WBC (Bld) 10.4 % See Below CC-AHXAX-Zhfxf wn 2nd Fl Work Phone: Comment on above: Reference Range: 13. 0 - 44.0 MCHC (RBC) [Mass/Vol] 32.7 g/dL See Below ZB-VYREP-Uniln wn 2nd Fl Work Phone: Comment on above: Reference Range: 32. 0 - 36.0 MCV (RBC) [Entitic vol] 91 fL 80 - 100 GQ-JIQJQ-Yjrww wn 2nd Fl Work Phone: Monocytes (Bld) [#/Vol] 0.84 {x10E9/L} See Below KI-KDPAW-Cfmpx wn 2nd Fl Work Phone: Comment on above: Reference Range: 0.1 0 - 1.00 Monocytes/100 WBC (Bld) 3.9 % 2.0 - 10.0 RH-ZDMYA-Ttgnr wn 2nd Fl Work Phone: Neutrophils/100 WBC (Bld) 82.7 % See Below QV-CSNER-Famkv wn 2nd Fl Work Phone: Comment on above: Reference Range: 40. 0 - 80.0 Platelets (Bld) [#/Vol] 225 {x10E9/L} 150 - 450 LX-TJCOZ-Kdbxh wn 2nd Fl Work Phone: RBC (Bld) [#/Vol] 3.31 {x10E12/L} below low threshold See Below AZ-BDGBS-Bhwwg wn 2nd Fl Work Phone: Comment on above: Reference Range: 4.0 0 - 5.20 WBC (Bld) [#/Vol] 0.0 {/100_WBC} 0.0-0.0 MG- OBGYN-[address] Work Phone: WBC (Bld) [#/Vol] 21.6 {x10E9/L} above high threshold 4.4 - 11.3 XN-IAAEQ-Yajth wn 2nd Fl Work Phone: Complete Blood Count + Differential 0.11 {x10E9/L} above high threshold See Below KG-VMITL-Tbgzd wn 2nd Fl Work Phone: Comment on above: Reference Range: 0.0 0 - 0.10 Complete Blood Count + Differential 1.4 % above high threshold 0.0 - 0.9 PB-RTISP-Nbknl[address] Work Phone: Comment on above: Immature Granulocyte Count (IG) includes promyelocytes, myelocytes and metamyelocytes but does not include bands. Percent differential counts (%) should be interpreted in the context of the absolute cell counts (cells/L). Complete Blood Count + Differential 17.85 {x10E9/L} above high threshold See Below BQ-QLJDG-Mipkz wn 2nd Fl Work Phone: Comment on above: Reference Range: 1.2 0 - 7.70 Hematologyon 06-26-2020 Hematocrit (Bld) [Volume fraction] 30.5 % below low threshold See Below FI-KAKSX-Jizie wn 2nd Fl Work Phone: Comment on above: Reference Range: 36. 0 - 46.0 Hemoglobin (Bld) [Mass/Vol] 10.7 g/dL below low threshold See Below TZ-OPNEJ-Sndsm wn 2nd Fl Work Phone: Comment on above: Reference Range: 12. 0 - 16.0 MCV (RBC) [Entitic vol] 84 fL 80 - 100 NQ-GOXCG-Dqxgm wn 2nd Fl Work Phone: Platelets (Bld) [#/Vol] 258 {x10E9/L} 150 - 450 TT-YVQDI-Stzxg wn 2nd Fl Work Phone: RBC (Bld) [#/Vol] 3.62 {x10E12/L} below low threshold See Below XN-QUDXQ-Igins wn 2nd Fl Work Phone: Comment on above: Reference Range: 4.0 0 - 5.20 WBC (Bld) [#/Vol] 0.0 {/100_WBC} 0.0-0.0 MG- OBGYN-Midto wn 2nd Fl Work Phone: WBC (Bld) [#/Vol] 35.7 {x10E9/L} above high threshold 4.4 - 11.3 KR-UYZBE-Luvwh wn 2nd Fl Work Phone: Otheron 06-26-2020 Erythrocyte distribution width (RBC) [Ratio] 14.6 % above high threshold See Below BZ-TGLFJ-Phiif wn 2nd Fl Work Phone: Comment on above: Reference Range: 11. 5 - 14.5 MCHC (RBC) [Mass/Vol] 35.1 g/dL See Below VR-KYHRP-Qyqol wn 2nd Fl Work Phone: Comment on [...] 3.5 cm, located 1.0 cm from themargin. Video Game Script Writer sections are submitted in 5 cassettes.AXQ/LMPSummary of Cassettes:Specimen Label SiteA 1 umbilical cord sections 2 membrane rolls 3 placental parenchyma, umbilical cord insertion site 4 placental parenchyma 5 placental parenchyma, lesionaxq/06/26/2020 FC-VCIKI-Hohgv wn [facility] Fl Work Phone: Coronavirus 2019 RNA by PCR, Symptomaticon 06-25-2020 Coronavirus 2019 RNA by PCR, Symptomatic NOT DETECTED See Below [address] Work Phone: Comment on above: SOURCE: [...] this test method. Fact sheet for providers: www.fda.gov/media/540161/downloadFact sheet for patients: www.[employer].gov/[employer]/157432/downloadThis test has received FDA Emergency Use Authorization (EUA) and has been verified by [facility] ([facility]). This test is only authorized for the duration of time that circumstances exist to justify the authorization of the emergency use of in vitro diagnostic tests for the detection of SARS-CoV-2 virus and/or diagnosis of COVID-19 infection under section 564(b)(1) of the Act, 21 U.S.C. 360bbb-3(b)(1), unless the authorization is terminated or revoked sooner. [facility] is certified under CLIA-88 as qualified to perform high complexity testing. Testing is performed in the [facility] laboratories located at [address] [place] [address]. Hematologyon 06-25-2020 ABO group Nom (Bld) A [address] Work Phone: Blood group antibody screen Ql Negative [address] Work Phone: Hematocrit (Bld) [Volume fraction] 34.7 % below low threshold See Below [address] Work Phone: Comment on above: Reference Range: 36. 0 - 46.0 Hemoglobin (Bld) [Mass/Vol] 11.6 g/dL below low threshold See Below FB-ROLRJ-Lwtxw[address] Work Phone: Comment on above: Reference Range: 12. 0 - 16.0 MCV (RBC) [Entitic vol] 90 fL 80 - 100 HP-COFZD-Hhwui wn 2nd Fl Work Phone: Platelets (Bld) [#/Vol] 268 {x10E9/L} 150 - 450 IN-LQBGS-Hwptu wn 2nd Fl Work Phone: RBC (Bld) [#/Vol] 3.85 {x10E12/L} below low threshold See Below ZV-LRANS-Gvqtf wn 2nd Fl Work Phone: Comment on above: Reference Range: 4.0 0 - 5.20 Rh immune globulin screen (Bld) [Interp] Positive ZQ-AZOLH-Kakav wn 2nd Fl Work Phone: WBC (Bld) [#/Vol] 0.0 {/100_WBC} 0.0-0.0 MG- OBGYN-[address] Work Phone: WBC (Bld) [#/Vol] 15.5 {x10E9/L} above high threshold 4.4 - 11.3 FN-MQDFJ-Xlyeo wn 2nd Fl Work Phone: Otheron 06-25-2020 Erythrocyte distribution width (RBC) [Ratio] 14.4 % See Below BM-EWZRX-Rnyxk wn 2nd Fl Work Phone: Comment on above: Reference Range: 11. 5 - 14.5 MCHC (RBC) [Mass/Vol] 33.4 g/dL See Below MZ-MWQLH-Izmom wn 2nd Fl Work Phone: Comment on above: Reference Range: 32. 0 - 36.0 SYPHILIS SCREENING WITH REFL EXon 06-25-2020 T. pallidum IgG+IgM IA Ql (S) NONREACTIVE See Below SW-GWGNA-Exohq [facility] Fl Work Phone: Comment on above: SOURCE: Reference Ra nge: NONREACTIVENo significant level of Treponema pallidum antibody detected. Repeat testing in 2 to 4 weeks may be considered if early infection or incubating syphilis infection is suspected. Imm/Pathon 06-07-2020 Bacteria identified Aer cx Nom (Genital specimen) PATIENT: KIARA ASHLEY LOCATION: [facility] BILL#: [id number] : 89 AGE: SEX: F ORDERED BY: PARAS GUEVARA: VAGINAL COLLECTED: 06/07/20 09:36ANTIBIOTICS AT ADRIENNE.: RECEIVED : 06/08/20 07:27SITE: VAGINAL R E S U L T S GROUP B STREP SCREEN PRELIM 06/09/20 08:35 CULTURE IN PROGRESS. VK-OWEXQ-PHU 1200 [place] Work Phone: Bacteria identified Aer cx Nom (Genital specimen) PATIENT: KIARA ASHLEY LOCATION: [facility] BILL#: [id number] : 89 AGE: SEX: F ORDERED BY: PARAS GUEVARA: VAGINAL COLLECTED: 06/07/20 09:36ANTIBIOTICS AT ADRIENNE.: RECEIVED : 06/08/20 07:27SITE: VAGINAL R E S U L T S GROUP B STREP SCREEN FINAL 06/10/20 11:54 NEGATIVE FOR GROUP B BETA STREP. QO-BFJPO-Widvj wn 2nd Fl Work Phone: Otheron 06-07-2020 [...] growth-No malformations were identified on a limited survey-[facility] 06/22 The patient is aware of the [...] signed by: RILEY TREVIÑO 06/07/20 09:33 Normal RH-KMESA-PFR [address] [place] Work Phone: Comment on above: ORDER REVISED TO A O B FOLLOW UP OR REPEAT SCAN BY RADIOLOGIST; Original Order Number: [id number] CBC AND DIFFERENTIALon 04-24 % AUTOMATED IMMATURE GRAN 1.9 % High 0.0 - 0.9 [facility] Comment on above: Result Comment: Graciela ture Granulocyte Count (IG) includes promyelocytes, myelocytes and metamyelocytes but does not include bands. Percent differential counts (%) should be interpreted in the context of the absolute cell counts (cells/L). Performed By: #### C BCDF #### [address] [place] [address] Basophils (Bld) [#/Vol] 0.08 10*3/uL Normal 0.00 - 0.10 [facility] [place] Comment on above: Performed By: #### C BCDF #### [address] [place] [address] Basophils/100 WBC (Bld) 0.5 % Normal 0.0 - 2.0 [facility] [place] Comment on above: Performed By: #### C BCDF #### [address] [place] [address] Eosinophils (Bld) [#/Vol] 0.22 10*3/uL Normal 0.00 - 0.70 [facility] [place] Comment on above: Performed By: #### C BCDF #### [address] [place] [address] Eosinophils/100 WBC (Bld) 1.5 % Normal 0.0 - 6.0 [facility] [place] Comment on above: Performed By: #### C BCDF #### [address] [place] [address] Erythrocyte distribution width (RBC) [Ratio] 14.0 % Normal 11.5 - 14.5 [facility] [place] Comment on above: Performed By: #### C BCDF #### [address] [place] [address] Hematocrit (Bld) [Volume fraction] 35.6 % Low 36.0 - 46.0 [facility] [place] Comment on above: Performed By: #### C BCDF #### [address] [place] [address] Hemoglobin (Bld) [Mass/Vol] 11.8 g/dL Low 12.0 - 16.0 [facility] [place] Comment on above: Performed By: #### C BCDF #### [address] [place] [address] Lymphocytes (Bld) [#/Vol] 2.38 10*3/uL Normal 1.20 - 4.80 [facility] [place] Comment on above: Performed By: #### C BCDF #### [address] [place] [address] Lymphocytes/100 WBC (Bld) 16.0 % Normal 13.0 - 44.0 [facility] [place] Comment on above: Performed By: #### C BCDF #### [address] [place] [address] MCHC (RBC) [Mass/Vol] 33.1 g/dL Normal 32.0 - 36.0 [facility] [place] Comment on above: Performed By: #### C BCDF #### [address] [place] [address] MCV (RBC) [Entitic vol] 92 fL Normal 80 - 100 [facility] [place] Comment on above: Performed By: #### C BCDF #### [address] [place] [address] Monocytes (Bld) [#/Vol] 0.74 10*3/uL Normal 0.10 - 1.00 [facility] [place] Comment on above: Performed By: #### C BCDF #### [address] [place] [address] Monocytes/100 WBC (Bld) 5.0 % Normal 2.0 - 10.0 [facility] [place] Comment on above: Performed By: #### C BCDF #### [address] [place] [address] Neutrophils (Bld) [#/Vol] 11.17 10*3/uL High 1.20 - 7.70 [facility] [place] Comment on above: Performed By: #### C BCDF #### [address] [place] [address] Neutrophils/100 WBC (Bld) 75.1 % Normal 40.0 - 80.0 [facility] [place] Comment on above: Performed By: #### C BCDF #### [address] [place] [address] Platelets (Bld) [#/Vol] 285 10*3/uL Normal 150 - 450 [facility] [place] Comment on above: Performed By: #### C BCDF #### [address] [place] [address] RBC (Bld) [#/Vol] 3.89 x10E12/L Low 4.00 - 5.20 [facility] [place] Comment on above: Performed By: #### C BCDF #### [address] [place] [address] WBC (Bld) [#/Vol] 14.9 10*3/uL High 4.4 - 11.3 [facility] Comment on above: Performed By: #### C BCDF #### [address] [place] [address] COMPREHENSIVE PANELon 2019 ALP [Catalytic activity/Vol] 79 U/L Normal 33 - 110 [facility] [place] Comment on above: Performed By: #### C MP #### [address] [place] [address] [facility] [address] [facility] [place] [address] ALT [Catalytic activity/Vol] 7 U/L Normal 7 - 45 [facility] [place] Comment on above: Result Comment: Melida ents treated with Sulfasalazine may generate falsely decreased results for ALT. Performed By: #### C MP #### [address] [place] [address] [place] [address] AST [Catalytic activity/Vol] 13 U/L Normal 9 - 39 [facility] [place] Comment on above: Performed By: #### C MP #### [address] [place] [address] [place] [address] Bilirubin [Mass/Vol] 0.3 mg/dL Normal 0.0 - 1.2 [facility] [place] Comment on above: Performed By: #### C MP #### [address] [place] [address] [place] [address] Protein [Mass/Vol] 5.9 g/dL Low 6.4 - 8.2 [facility] [place] Comment on above: Performed By: #### C MP #### [address] [place] [address] [place] [address] Anion gap [Moles/Vol] 12 mmol/L Normal 10 - 20 [facility] [place] Comment on above: Performed By: #### C MP #### [address] [place] [address] [place] [address] Chloride [Moles/Vol] 106 mmol/L Normal 98 - 107 [facility] [place] Comment on above: Performed By: #### C MP #### [address] [place] [address] [place] [address] Potassium [Moles/Vol] 3.7 mmol/L Normal 3.5 - 5.3 [facility] [place] Comment on above: Performed By: #### C MP #### [address] [place] [address] [place] [address] Sodium [Moles/Vol] 137 mmol/L Normal 136 - 145 [facility] [place] Comment on above: Performed By: #### C MP #### [address] [place] [address] [place] [address] Calcium [Mass/Vol] 9.2 mg/dL Normal 8.6 - 10.3 [facility] [place] Comment on above: Performed By: #### C MP #### [address] [place] [address] [place] [address] Glucose [Mass/Vol] 95 mg/dL Normal 74 - 99 [facility] [place] Comment on above: Performed By: #### C MP #### [address] [place] [address] [place] [address] Urea nitrogen [Mass/Vol] 7 mg/dL Normal 6 - 23 [facility] [place] Comment on above: Performed By: #### C MP #### [address] [place] [address] [place] [address] Albumin [Mass/Vol] 3.4 g/dL Normal 3.4 - 5.0 [facility] [place] Comment on above: Performed By: #### C MP #### [address] [place] [address] [place] [address] Creatinine [Mass/Vol] 0.70 mg/dL Normal 0.50 - 1.05 [facility] [place] Comment on above: Performed By: #### C MP #### [address] [place] [address] [place] [address] GFR- AM. >60 Normal >60 [facility] [place] Comment on above: Result Comment: CALC ULATIONS OF ESTIMATED GFR ARE PERFORMED USING THE MDRD STUDY EQUATION FOR THE IDMS-TRACEABLE CREATININE METHODS. CLIN CHEM 2007;53:766-72 Performed By: #### C MP #### [address] [place] [address] [place] [address] GFR-NON AM. >60 Normal >60 [facility] [place] Comment on above: Performed By: #### C MP #### [address] [place] [address] [place] [address] HCO3 (Bld) [Moles/Vol] 23 mmol/L Normal 21 - 32 [facility] [place] Comment on above: Performed By: #### C MP #### [address] [place] [address] [place] [address] FERRITINon 04-24-2020 Ferritin [Mass/Vol] 8 ug/L Normal 8 - 150 [facility] [place] Comment on above: Performed By: #### F ERRI #### [address] [place] [address] IRON + TIBCon 04-24-2020 % SATURATION 14 % Low 25 - 45 [facility] [place] Comment on above: Performed By: #### I RONT #### [address] [address] Iron [Mass/Vol] 65 ug/dL Normal 35 - 150 [facility] [place] Comment on above: Performed By: #### I RONT #### [address] [place] [address] TIBC 449 ug/dL High 240 - 445 [facility] [place] Comment on above: Performed By: #### I RONT #### [address] [place] [address] Complete Blood Count + Diffe rentialon 02-10-2020 Basophils/100 WBC (Bld) 1.0 % 0.0 - 2.0 YB-NTYFG-CLK 1200 [place] Work Phone: Eosinophils (Bld) [#/Vol] 0.37 {x10E9/L} See Below KV-SLOZD-ZRW 1200 [place] Work Phone: Comment on above: Reference Range: 0.0 0 - 0.70 Eosinophils/100 WBC (Bld) 3.0 % 0.0 - 6.0 EL-ZOGWT-MDI 1200 [place] Work Phone: Erythrocyte distribution width (RBC) [Ratio] 13.4 % See Below DD-XAHSC-YON 1200 [place] Work Phone: Comment on above: Reference Range: 11. 5 - 14.5 Hematocrit (Bld) [Volume fraction] 41.8 % See Below XD-MILWI-MED 1200 [place] Work Phone: Comment on above: Reference Range: 36. 0 - 46.0 Hemoglobin (Bld) [Mass/Vol] 13.6 g/dL See Below KO-OKRSW-KPK 1200 [place] Work Phone: Comment on above: Reference Range: 12. 0 - 16.0 Lymphocytes (Bld) [#/Vol] 2.52 {x10E9/L} See Below WX-JKAOL-YTA 1200 [place] Work Phone: Comment on above: Reference Range: 1.2 0 - 4.80 Lymphocytes/100 WBC (Bld) 20.2 % See Below JV-DYDGO-LNA 1200 [place] Work Phone: Comment on above: Reference Range: 13. 0 - 44.0 MCHC (RBC) [Mass/Vol] 32.5 g/dL See Below FM-UFUBN-SUY 1200 [place] Work Phone: Comment on above: Reference Range: 32. 0 - 36.0 MCV (RBC) [Entitic vol] 95 fL 80 - 100 AG-FSANO-PTE 1200 [place] Work Phone: Monocytes (Bld) [#/Vol] 0.58 {x10E9/L} See Below AD-ZUVFZ-TWS 1200 [place] Work Phone: Comment on above: Reference Range: 0.1 0 - 1.00 Monocytes/100 WBC (Bld) 4.6 % 2.0 - 10.0 DF-ZXHCI-USI 1200 [place] Work Phone: Neutrophils/100 WBC (Bld) 70.6 % See Below KO-SJCOR-HIC 1200 [place] Work Phone: Comment on above: Reference Range: 40. 0 - 80.0 Platelets (Bld) [#/Vol] 372 {x10E9/L} 150 - 450 VJ-OIOWZ-FWR 1200 [place] Work Phone: RBC (Bld) [#/Vol] 4.40 {x10E12/L} See Below MG -OBGYN-MAC 1200 [place] Work Phone: Comment on above: Reference Range: 4.0 0 - 5.20 WBC (Bld) [#/Vol] 0.0 {/100_WBC} 0.0-0.0 MG- OBGYN-MAC 1200 [place] Work Phone: WBC (Bld) [#/Vol] 12.7 {x10E9/L} above high threshold 4.4 - 11.3 AM-HLCKZ-MQJ 1200 [place] Work Phone: Comment on above: SOURCE: Complete Blood Count + Differential 8.81 {x10E9/L} above high threshold See Below RR-UDDQR-NZJ 1200 [place] Work Phone: Comment on above: Reference Range: 1.2 0 - 7.70 Complete Blood Count + Differential 0.6 % 0.0 - 0.9 HU-IKROW-WWX 1200 [place] Work Phone: Comment on above: Percent differential counts (%) should be interpreted in the context of the absolute cell counts (cells/L). Complete Blood Count + Differential 0.13 {x10E9/L} above high threshold See Below DY-FAPBJ-DJG 1200 [place] Work Phone: Comment on above: Reference Range: 0.0 0 - 0.10 Cult, Urineon 12-25-2019 Bacteria identified Cx Nom (U) PATIENT: KIARA ASHLEY LOCATION: C0646 BILL#: [id number] : 89 AGE: SEX: F ORDERED BY: PARAS GUEVARA: URINE COLLECTED: 12/25/19 09:41ANTIBIOTICS AT [facility].: RECEIVED : 12/25/19 17:06SITE: Clean Catch/Voided R E S U L T S URINE CULTURE,BACTERIAL FINAL 12/26/19 10:21 NO SIGNIFICANT GROWTH. PM-BETFM-TSO 1200 [place] Work Phone: Hematologyon 12-25-2019 ABO group Nom (Bld) A TK-MDAVX-KFR 1200 [place] Work Phone: Blood group antibody screen Ql Negative PA-VOYGT-ZCH 1200 [place] Work Phone: Rh immune globulin screen (Bld) [Interp] Positive TC-RVQYJ-UTN 1200 [place] Work Phone: Hepatitis B Surface Antigeno n 12-25-2019 Hepatitis B Surface Antigen NONREACTIVE See Below LP-FOZEJ-JRS 1200 [place] Work Phone: Comment on above: [...] Hepatitis C Antibody Test NON-REACTIVE See Below QW-ORVRC-WYS 1200 [place] Work Phone: Comment on above: SOURCE: Reference Ra nge: NONREACTIVE Patients receiving more than 5 mg/day of biotin may have interference in test results. A sample should be taken no sooner than eight hours after previous dose. Contact the testing laboratory for additional information. Metabolic Panelon 12-25-2019 ALP [Catalytic activity/Vol] 67 U/L 33 - 110 WA-YWFIW-DVQ 1200 [place] Work Phone: Anion gap [Moles/Vol] 15 mmol/L 10 - 20 WK-XRNOF-YBJ 1200 [place] Work Phone: Bilirubin [Mass/Vol] 0.3 mg/dL 0.0 - 1.2 HF-GPJKI-RRY 1200 [place] Work Phone: Calcium [Mass/Vol] 9.6 mg/dL 8.6 - 10.6 FV-CHBJA-GFQ 1200 [place] Work Phone: Chloride [Moles/Vol] 104 mmol/L 98 - 107 UO-OVMPC-BVT 1200 [place] Work Phone: CO2 [Moles/Vol] 21 mmol/L 21 - 32 MG-OBGYN- MAC 1200 [place] Work Phone: Creatinine [Mass/Vol] 0.69 mg/dL See Below FK-WMMIL-BGK 1200 [place] Work Phone: Comment on above: Reference Range: 0.5 0 - 1.05 Glucose [Mass/Vol] 83 mg/dL 74 - 99 YJ-LCZYK-YZE 1200 [place] Work Phone: Comment on above: SOURCE: Potassium [Moles/Vol] 4.1 mmol/L 3.5 - 5.3 CN-LKCYW-ZMR 1200 [place] Work Phone: Protein [Mass/Vol] 6.2 g/dL below low threshold 6.4 - 8.2 XY-NWXLK-LTV 1200 [place] Work Phone: Sodium [Moles/Vol] 136 mmol/L 136 - 145 XZ-TAWLN-JWB 1200 [place] Work Phone: Urea nitrogen [Mass/Vol] 9 mg/dL 6 - 23 OX-KXHRV-SQN 1200 [place] Work Phone: Otheron 12-25-2019 Albumin BCP dye [Mass/Vol] 3.9 g/dL 3.4 - 5.0 GH-MLECJ-RJV 1200 [place] Work Phone: ALT With P-5'-P [Catalytic activity/Vol] 8 U/L 7 - 45 OH-UUBCI-QJW 1200 [place] Work Phone: Comment on above: Patients treated wit h Sulfasalazine may generate falsely decreased results for ALT. AST With P-5'-P [Catalytic activity/Vol] 11 U/L 9 - 39 PL-MGUNZ-LPK 1200 [place] Work Phone: NONE SA-FIKYY-DXU 1200 [place] Work Phone: >60 >60 EZ-WHCGZ-MQY 1200 [place] Work Phone: Comment on above: CALCULATIONS OF MARÍA MATED GFR ARE PERFORMED USING THE MDRD STUDY EQUATION FOR THE IDMS-TRACEABLE CREATININE METHODS. CLIN CHEM 2007;53:766-72 SYPHILIS SCREENING WITH REFL EXon 12-25-2019 T. pallidum IgG+IgM IA Ql (S) NONREACTIVE See Below JO-MOVQG-RFV 1200 [place] Work Phone: Comment on above: SOURCE: Reference Ra nge: NONREACTIVENo significant level of Treponema pallidum antibody detected. Repeat testing in 2 to 4 weeks may be considered if early infection or incubating syphilis infection is suspected. CBC AND DIFFERENTIALon 11-21 % AUTOMATED IMMATURE GRAN 0.9 % Normal 0.0 - 0.9 [facility] [place] Comment on above: Result Comment: Perc ent differential counts (%) should be interpreted in the context of the absolute cell counts (cells/L). Performed By: #### C BCDF #### [address] [place] [address] Basophils (Bld) [#/Vol] 0.16 10*3/uL High 0.00 - 0.10 [facility] [place] Comment on above: Performed By: #### C BCDF #### [address] [place] [address] Basophils/100 WBC (Bld) 1.2 % Normal 0.0 - 2.0 [facility] [place] Comment on above: Performed By: #### C BCDF #### [address] [place] [address] Eosinophils (Bld) [#/Vol] 0.80 10*3/uL High 0.00 - 0.70 [facility] [place] Comment on above: Performed By: #### C BCDF #### [address] [place] [address] Eosinophils/100 WBC (Bld) 5.8 % Normal 0.0 - 6.0 [facility] [place] Comment on above: Performed By: #### C BCDF #### [address] [place] [address] Erythrocyte distribution width (RBC) [Ratio] 13.6 % Normal 11.5 - 14.5 [facility] [place] Comment on above: Performed By: #### C BCDF #### [address] [place] [address] Hematocrit (Bld) [Volume fraction] 39.4 % Normal 36.0 - 46.0 [facility] [place] Comment on above: Performed By: #### C BCDF #### [address] [place] [address] Hemoglobin (Bld) [Mass/Vol] 13.0 g/dL Normal 12.0 - 16.0 [facility] [place] Comment on above: Performed By: #### C BCDF #### [address] [place] [address] Lymphocytes (Bld) [#/Vol] 2.24 10*3/uL Normal 1.20 - 4.80 [facility] [place] Comment on above: Performed By: #### C BCDF #### [address] [place] [address] Lymphocytes/100 WBC (Bld) 16.3 % Normal 13.0 - 44.0 [facility] [place] Comment on above: Performed By: #### C BCDF #### [address] [place] [address] MCHC (RBC) [Mass/Vol] 33.0 g/dL Normal 32.0 - 36.0 [facility] [place] Comment on above: Performed By: #### C BCDF #### [address] [place] [address] MCV (RBC) [Entitic vol] 94 fL Normal 80 - 100 [facility] [place] Comment on above: Performed By: #### C BCDF #### [address] [place] [address] Monocytes (Bld) [#/Vol] 0.83 10*3/uL Normal 0.10 - 1.00 [facility] [place] Comment on above: Performed By: #### C BCDF #### [address] [place] [address] Monocytes/100 WBC (Bld) 6.0 % Normal 2.0 - 10.0 [facility] [place] Comment on above: Performed By: #### C BCDF #### [address] [place] [address] Neutrophils (Bld) [#/Vol] 9.60 10*3/uL High 1.20 - 7.70 [facility] [place] Comment on above: Performed By: #### C BCDF #### [address] [place] [address] Neutrophils/100 WBC (Bld) 69.8 % Normal 40.0 - 80.0 [facility] [place] Comment on above: Performed By: #### C BCDF #### [address] [place] [address] Platelets (Bld) [#/Vol] 380 10*3/uL Normal 150 - 450 [facility] [place] Comment on above: Performed By: #### C BCDF #### [address] [place] [address] RBC (Bld) [#/Vol] 4.21 x10E12/L Normal 4.00 - 5.20 [facility] [place] Comment on above: Performed By: #### C BCDF #### [address] [place] [address] WBC (Bld) [#/Vol] 13.8 10*3/uL High 4.4 - 11.3 [facility] Comment on above: Performed By: #### C BCDF #### [address] [place] [address] Complete Blood Count + Diffe fannytialon 11-14-2019 Basophils (Bld) [#/Vol] 0.05 {x10E9/L} See Below [facility] Work [facility]: Comment on above: Reference Range: 0.0 0 - 0.10 Basophils/100 WBC (Bld) 0.4 % 0.0 - 2.0 MP-Reproductiv e [facility] [place] Work Phone: Eosinophils (Bld) [#/Vol] 0.89 {x10E9/L} above high threshold See Below MP-Reproductiv e [facility] [place] Work Phone: Comment on above: Reference Range: 0.0 0 - 0.70 Eosinophils/100 WBC (Bld) 7.3 % 0.0 - 6.0 MP-Reproductiv e [facility]- [place] Work Phone: Erythrocyte distribution width (RBC) [Ratio] 13.9 % See Below MP-Reproductiv e [facility] [place] Work Phone: Comment on above: Reference Range: [...] 2.13 {x10E9/L} See Below MP-Reproductiv e [facility] [place] Work Phone: Comment on above: Reference Range: 1.2 0 - 4.80 Lymphocytes/100 WBC (Bld) 17.5 % See Below MP-Reproductiv e [facility] [place] Work Phone: Comment on above: Reference Range: [...] 69.4 % See Below MP-Reproductiv e [facility]- [place] Work Phone: Comment on above: Reference Range: 40. 0 - 80.0 Platelets (Bld) [#/Vol] 423 {x10E9/L} 150 - 450 MP-Reproductiv e [facility]- [place] Work Phone: RBC (Bld) [#/Vol] 4.15 {x10E12/L} See Below MP -Reproductiv e [facility]ocr[facility]- [place] Work Phone: Comment on above: Reference Range: 4.0 0 - 5.20 WBC (Bld) [#/Vol] 12.2 {x10E9/L} above high threshold 4.4 - 11.3 MP-Reproductiv e [facility]- [place] Work Phone: WBC (Bld) [#/Vol] 0.0 {/100_WBC} 0.0-0.0 MP- Reproductiv e [facility]- [place] Work Phone: Complete Blood Count + Differential 0.5 % 0.0 - 0.9 MP-Reproductiv e [facility]- [place] Work Phone: Comment on above: Percent differential counts (%) should be interpreted in the context of the absolute cell counts (cells/L). Complete Blood Count + Differential 8.42 {x10E9/L} above high threshold See Below MP-Reproductiv e [facility]- [place] Work Phone: Comment on above: Reference Range: 1.2 0 - 7.70 Metabolic Panelon 11-14-2019 ALP [Catalytic activity/Vol] 82 U/L 33 - 110 MP-Reproductiv e Endocrin[facility]- [place] Work Phone: Anion gap [Moles/Vol] 19 mmol/L 10 - 20 MP-Reproductiv e [facility]- [place] Work Phone: Bilirubin [Mass/Vol] 0.4 mg/dL 0.0 - 1.2 MP-Reproductiv e [facility]- [place] Work Phone: Calcium [Mass/Vol] 9.5 mg/dL 8.6 - 10.6 MP-Reproductiv e [facility]- [place] Work Phone: Chloride [Moles/Vol] 100 mmol/L 98 - 107 MP-Reproductiv e [facility]- [place] Work Phone: CO2 [Moles/Vol] 20 mmol/L below low threshold 21 - 32 MP-Reproductiv e Endocrinology- [place] Work Phone: Creatinine [Mass/Vol] 0.80 mg/dL See Below MP-Reproductiv e Endocrin[facility]- [place] Work Phone: Comment on above: Reference Range: 0.5 0 - 1.05 Glucose [Mass/Vol] 86 mg/dL 74 - 99 MP-Reproductiv e [facility]- [place] Work Phone: Potassium [Moles/Vol] 4.3 mmol/L 3.5 - 5.3 MP-Reproductiv e Endocr[facility]- [place] Work Phone: Protein [Mass/Vol] 5.8 g/dL below low threshold 6.4 - 8.2 MP-Reproductiv e Endocrinology- [place] 206 Work Phone: Sodium [Moles/Vol] 135 mmol/L below low threshold 136 - 145 MP-Reproductiv e Endocr[facility]- [place] Work Phone: Urea nitrogen [Mass/Vol] 10 mg/dL 6 - 23 MP-Reproductiv e Endocr[facility]- [place] Work Phone: Otheron 11-14-2019 Albumin BCP dye [Mass/Vol] 3.5 g/dL 3.4 - 5.0 MP-Reproductiv e [facility] Work Phone: ALT With P-5'-P [Catalytic activity/Vol] 17 U/L 7 - 45 MP-Reproductiv e [facility] Work Phone: Comment on above: Patients treated wit h Sulfasalazine may generate falsely decreased results for ALT. AST With P-5'-P [Catalytic activity/Vol] 22 U/L 9 - 39 MP-Reproductiv e [facility] Work Phone: >60 >60 MP-Reproductiv e [facility] Work Phone: Comment on above: CALCULATIONS OF MARÍA MATED GFR ARE PERFORMED USING THE MDRD STUDY EQUATION FOR THE IDMS-TRACEABLE CREATININE METHODS. CLIN CHEM 2007;53:766-72 CBCon 11-09-2019 Erythrocyte distribution width (RBC) [Ratio] 13.7 % See Below QT-WCXJR-Knlsk n 310 [facility] Work Phone: Comment on above: Performed By: #### L H #### [facility] [address] [place] [address] Reference Range: 11. 5 - 14.5 Hematocrit (Bld) [Volume fraction] 41.9 % See Below XB-YYYGT-Xgvzq n 310 [facility] Work Phone: Comment on above: Performed By: #### L H #### [facility] [address] [place] [address] Reference Range: 36. 0 - 46.0 Hemoglobin (Bld) [Mass/Vol] 14.0 g/dL See Below JC-GKGRI-Hcrwi n 310 [facility] Work Phone: Comment on above: Performed By: #### L H #### [facility] [address] [place] [address] Reference Range: 12. 0 - 16.0 MCHC (RBC) [Mass/Vol] 33.4 g/dL See Below OI-ZZDKT-Hhgco n 310 [facility] Work Phone: Comment on above: Performed By: #### L H #### [facility] [address] [place] [address] Reference Range: 32. 0 - 36.0 MCV (RBC) [Entitic vol] 94 fL 80 - 100 ZA-NSNAL-Aqxut n 310 [facility] Work Phone: Comment on above: Performed By: #### L H #### [facility] [address] [place] [id number] Platelets (Bld) [#/Vol] 411 10*3/uL Normal 150 - [address] [facility] Comment on above: Performed By: #### L H #### [facility] [address] [place] [id number] RBC (Bld) [#/Vol] 4.44 x10E12/L Normal 4.00 - 5.[address] [facility] Comment on above: Performed By: #### L H #### [facility] [address] [place] [id number] WBC (Bld) [#/Vol] 12.4 10*3/uL High 4.4 - 11.3 [facility] Comment on above: Performed By: #### L H #### [facility] [address] [place] [id number] COMPREHENSIVE PANELon 2018 Albumin [Mass/Vol] 3.8 g/dL Normal 3.4 - 5.[address] [facility] Comment on above: Performed By: #### L H #### [facility] [address] [place] [id number] ALP [Catalytic activity/Vol] 51 U/L 33 - 110 TL-BFSNT-Kobph n 310 [facility] Work Phone: Comment on above: Performed By: #### L H #### [facility] [address] [place] [id number] ALT [Catalytic activity/Vol] 12 U/L Normal 7 - [address] [facility] Comment on above: Result Comment: Melida ents treated with Sulfasalazine may generate falsely decreased results for ALT. Performed By: #### L H #### [facility] [address] [place] [id number] Anion gap [Moles/Vol] 13 mmol/L 10 - 20 QD-CDSUB-Weoem n 310 [facility] Work Phone: Comment on above: Performed By: #### L H #### [facility] [address] [place] [id number] AST [Catalytic activity/Vol] 12 U/L Normal 9 - [address] [facility] Comment on above: Performed By: #### L H #### [facility] [address] [place] [address] Bilirubin [Mass/Vol] 0.4 mg/dL 0.0 - 1.2 ZC-VIHOJ-Jwmih n 310 IVF Work Phone: Comment on above: Performed By: #### L H #### [facility] [address] [place] [address] Calcium [Mass/Vol] 9.3 mg/dL 8.6 - 10.3 XG-HJNLB-Ziiim n 310 IVF Work Phone: Comment on above: Performed By: #### L H #### [facility] [address] [place] [address] Chloride [Moles/Vol] 102 mmol/L 98 - 107 WY-[id number]-Zgvrp n 310 IVF Work Phone: Comment on above: Performed By: #### L H #### [facility] [address] [place] [address] Creatinine [Mass/Vol] 0.89 mg/dL See Below [id number]-[id number]-Yibzx n 310 IVF Work Phone: Comment on above: Performed By: #### L H #### [facility] [address] [place] [id number] Reference Range: 0.5 0 - 1.05 GFR- AM. >60 Normal >[address] [facility] Comment on above: Result Comment: CALC ULATIONS OF ESTIMATED GFR ARE PERFORMED USING THE MDRD STUDY EQUATION FOR THE IDMS-TRACEABLE CREATININE METHODS. CLIN CHEM 2007;53:766-72 Performed By: #### L H #### [facility] [address] [place] [id number] GFR-NON AM. >60 Normal >[address] [facility] Comment on above: Performed By: #### L H #### [facility] [address] [place] [address] Glucose [Mass/Vol] 74 mg/dL 74 - 99 WU-JQLAE-Elabx n 310 IVF Work Phone: Comment on above: Performed By: #### L H #### [facility] [address] [place] [address] HCO3 (Bld) [Moles/Vol] 25 mmol/L Normal 21 - [address] [facility] Comment on above: Performed By: #### L H #### [facility] [address] [place] [address] Potassium [Moles/Vol] 4.1 mmol/L 3.5 - 5.3 YS-PWBPJ-Yqfzz n 310 IVF Work Phone: Comment on above: Performed By: #### L H #### [facility] [address] [place] [id number] Protein [Mass/Vol] 6.0 g/dL below low threshold 6.4 - 8.2 BS-NQLNI-Rdgaf n 310 IVF Work Phone: Comment on above: Performed By: #### L H #### [facility] [address] [place] [address] Sodium [Moles/Vol] 136 mmol/L 136 - 145 CO-VLTFN-Dqzcz n 310 IVF Work Phone: Comment on above: Performed By: #### L H #### [facility] [address] [place] [address] Urea nitrogen [Mass/Vol] 11 mg/dL 6 - 23 HM-GWBNS-Ndufn n 310 IVF Work Phone: Comment on above: Performed By: #### L H #### [facility] [address] [place] [address] HCG, Beta Quantitativeon HCG.beta subunit Qn 7102 {mIU/mL} Abnormal BR-TISUV-Xpyid n 310 IVF Work Phone: Comment on [...] performed using a different test methodology at [facility]. Direct result comparison should only be made within the same method. REF VALUESNON FEMALE <5MALES <5 HCG,BETA-QUANTITATIVEon - HCG,BETA-QUANTITA TIVE 7102 mIU/mL [facility] Comment on above: Result Comment: Low- level [...] HCG measurement is performed using the [employer] Access Immunoassay which detects intact HCG and free beta HCG subunit. This test is not indicated for use as a tumor marker. HCG testing is performed using a different test methodology at [facility]. Direct result comparison should only be made within the same method. REF VALUES NON FEMALE <5 MALES <5 Performed By: #### L H #### [facility] [address] [place] [address] Hematologyon 11-09-2019 Platelets (Bld) [#/Vol] 411 {x10E9/L} 150 - 450 NO-QTZEH-Wqwyw n 310 IVF Work Phone: RBC (Bld) [#/Vol] 4.44 {x10E12/L} See Below MG -OBGYN-Risma n 310 IVF Work Phone: Comment on above: Reference Range: 4.0 0 - 5.20 WBC (Bld) [#/Vol] 12.4 {x10E9/L} above high threshold 4.4 - 11.3 KK-ZRIDS-Lbtfh n 310 IVF Work Phone: Metabolic Panelon 11-09-2019 CO2 [Moles/Vol] 25 mmol/L 21 - 32 MG-OBGYN- Risma n 310 IVF Work Phone: Otheron 11-09-2019 Albumin BCP dye [Mass/Vol] 3.8 g/dL 3.4 - 5.0 KV-QCVSJ-Qrazz n 310 IVF Work Phone: ALT With P-5'-P [Catalytic activity/Vol] 12 U/L 7 - 45 FW-EAWZC-Kovky n 310 IVF Work Phone: Comment on above: Patients treated wit h Sulfasalazine may generate falsely decreased results for ALT. AST With P-5'-P [Catalytic activity/Vol] 12 U/L 9 - 39 HT-DABPS-Leuuq n 310 IVF Work Phone: >60 >60 CI-TDPTP-Wafqc n 310 IVF Work Phone: Comment on [...] HCG measurement is performed using the [email or web address] Access Immunoassay which detects intact HCG and free beta HCG subunit. This test is not indicated for use as a tumor marker. HCG testing is performed using a different test methodology at [facility]. Direct result comparison should only be made within the same method. REF VALUESNON FEMALE <5MALES <5 HCG,BETA-QUANTITATIVEon 10-15 HCG,BETA-QUANTITA TIVE 240 mIU/mL [facility] Comment on above: Result Comment: Low- level [...] HCG measurement is performed using the [email or web address] Access Immunoassay which detects intact HCG and free beta HCG subunit. This test is not indicated for use as a tumor marker. HCG testing is performed using a different test methodology at [facility]. Direct result comparison should only be made within the same method. REF VALUES NON FEMALE <5 MALES <5 Performed By: #### E STRA #### [facility] [address] [place] [address] ESTRADIOLon 10-14-2019 ESTRADIOL 1871 pg/mL Normal [facility] Comment on above: Result Comment: Estr adiol measurement is performed using the [employer] Access Immunoassay. Estradiol testing is performed using a different test methodology at [facility]. Direct result comparison should only be made within the same method. REF VALUES FOLLICULAR PHASE 20-144 MID CYCLE 64-357 LUTEAL PHASE 56-214 POSTMENOPAUSE < 32 PREPUBERTY < 20 MALE 10-18Y < 20 ADULT MALE < 40 Performed By: #### E STRA #### [facility] [address] [place] [address] Estradiol, Serumon 9 E2 [Mass/Vol] 1871 pg/mL MG-OBGYN-Ri sma n 310 IVF Work Phone: Comment on above: Estradiol measuremen t is performed using the [employer] Access Immunoassay. Estradiol testing is performed using a different test methodology at [facility]. Direct result comparison should only be made within the same method.REF VALUESFOLLICULAR PHASE 20-144MID CYCLE 64-357LUTEAL PHASE 56-214POSTMENOPAUSE < 32PREPUBERTY < 20MALE 10-18Y < 20ADULT MALE < 40 PROGESTERONEon 10-14-2019 PROGESTERONE 1.0 ng/mL Normal [facility] Comment on above: Result Comment: Prog esterone is performed using the [employer] Access Immunoassay. Progesterone testing is performed using a different test methodology at [facility]. Direct result comparison should only be made within the same method. REF VALUES MALE <0.2-0.8 FOLLICULAR PHASE <0.2-1.5 LUTEAL PHASE 7.4-15.4 POSTMENOPAUSAL <0.2-0.2 1ST TRIMESTER 12.0-84.0 2ND TRIMESTER 10.2-58.8 3RD TRIMESTER 46.5-160 Performed By: #### E STRA #### [facility] [address] [place] [address] Progesterone, Serumon 2018 Progesterone [Mass/Vol] 1.0 ng/mL EV-YKUNW-Kqlhe n 310 IVF Work Phone: Comment on above: Progesterone is perf ormed using the [employer] Access Immunoassay. Progesterone testing is performed using a different test methodology at [facility]. Direct result comparison should only be made within the same method.REF VALUESMALE <0.2-0.8 FOLLICULAR PHASE <0.2-1.5 LUTEAL PHASE 7.4-15.4 POSTMENOPAUSAL <0.2-0.2 1ST TRIMESTER 12.0-84.0 2ND TRIMESTER 10.2-58.8 3RD TRIMESTER 46.5-160 ESTRADIOLon 10-11-2019 ESTRADIOL 284 pg/mL Normal [facility] Comment on above: Result Comment: Estr adiol measurement is performed using the [employer] Access Immunoassay. Estradiol testing is performed using a different test methodology at [facility]. Direct result comparison should only be made within the same method. REF VALUES FOLLICULAR PHASE 20-144 MID CYCLE 64-357 LUTEAL PHASE 56-214 POSTMENOPAUSE < 32 PREPUBERTY < 20 MALE 10-18Y < 20 ADULT MALE < 40 Performed By: #### E STRA #### [facility] [address] [place] [address] Estradiol, Serumon 9 E2 [Mass/Vol] 284 pg/mL MG-OBGYN-Ri sma n 310 IVF Work Phone: Comment on above: Estradiol measuremen t is performed using the [employer] Access Immunoassay. Estradiol testing is performed using a different test methodology at [facility]. Direct result comparison should only be made within the same method.REF VALUESFOLLICULAR PHASE 20-144MID CYCLE 64-357LUTEAL PHASE 56-214POSTMENOPAUSE < 32PREPUBERTY < 20MALE 10-18Y < 20ADULT MALE < 40 ESTRADIOLon 10-05-2019 ESTRADIOL 129 pg/mL Normal [facility] Comment on above: Result Comment: Estr adiol measurement is performed using the [employer] Access Immunoassay. Estradiol testing is performed using a different test methodology at [facility]. Direct result comparison should only be made within the same method. REF VALUES FOLLICULAR PHASE 20-144 MID CYCLE 64-357 LUTEAL PHASE 56-214 POSTMENOPAUSE < 32 PREPUBERTY < 20 MALE 10-18Y < 20 ADULT MALE < 40 Performed By: #### E BARBARA #### [facility] [address] [place] [address] Estradiol, Serumon 9 E2 [Mass/Vol] 129 pg/mL MG-OBGYN-Ri sma n 310 IVF Work Phone: Comment on above: Estradiol measuremen t is performed using the [employer] Access Immunoassay. Estradiol testing is performed using a different test methodology at [facility]. Direct result comparison should only be made within the same method.REF VALUESFOLLICULAR PHASE 20-144MID CYCLE 64-357LUTEAL PHASE 56-214POSTMENOPAUSE < 32PREPUBERTY < 20MALE 10-18Y < 20ADULT MALE < 40 PROGESTERONEon 10-05-2019 PROGESTERONE 0.2 ng/mL Normal [facility] Comment on above: Result Comment: Prog esterone is performed using the [email or web address] Access Immunoassay. Progesterone testing is performed using a different test methodology at [facility]. Direct result comparison should only be made within the same method. REF VALUES MALE <0.2-0.8 FOLLICULAR PHASE <0.2-1.5 LUTEAL PHASE 7.4-15.4 POSTMENOPAUSAL <0.2-0.2 1ST TRIMESTER 12.0-84.0 2ND TRIMESTER 10.2-58.8 3RD TRIMESTER 46.5-160 Performed By: #### E BARBARA #### [facility] [address] [place] [address] Progesterone, Serumon 2018 Progesterone [Mass/Vol] 0.2 ng/mL KH-XMSOO-Qkuku n 310 IVF Work Phone: Comment on above: Progesterone is perf ormed using the [email or web address] Access Immunoassay. Progesterone testing is performed using a different test methodology at [facility]. Direct result comparison should only be made within the same method.REF VALUESMALE <0.2-0.8 FOLLICULAR PHASE <0.2-1.5 LUTEAL PHASE 7.4-15.4 POSTMENOPAUSAL <0.2-0.2 1ST TRIMESTER 12.0-84.0 2ND TRIMESTER 10.2-58.8 3RD TRIMESTER 46.5-160 ESTRADIOLon 10-02-2019 ESTRADIOL 357 pg/mL Normal [facility] Comment on above: Result Comment: Estr adiol measurement is performed using the [employer] Access Immunoassay. Estradiol testing is performed using a different test methodology at [facility]. Direct result comparison should only be made within the same method. REF VALUES FOLLICULAR PHASE 20-144 MID CYCLE 64-357 LUTEAL PHASE 56-214 POSTMENOPAUSE < 32 PREPUBERTY < 20 MALE 10-18Y < 20 ADULT MALE < 40 Performed By: #### E STRA #### [facility] [address] [place] [address] Estradiol, Serumon 9 E2 [Mass/Vol] 357 pg/mL MG-OBGYN-Cr ock er 206A IVF Work Phone: Comment on above: Estradiol measuremen t is performed using the [employer] Access Immunoassay. Estradiol testing is performed using a different test methodology at [facility]. Direct result comparison should only be made within the same method.REF VALUESFOLLICULAR PHASE 20-144MID CYCLE 64-357LUTEAL PHASE 56-214POSTMENOPAUSE < 32PREPUBERTY < 20MALE 10-18Y < 20ADULT MALE < 40 LUTEINIZING HORMONEon 2018 LUTEINIZING HORMONE 14.7 IU/L Normal [facility] Comment on above: Result Comment: Lute inizing Hormone [LH] is performed using the [employer] Access Immunoassay. LH testing is performed using a different test methodology at [facility]. Direct result comparison should only be made within the same method. REF VALUES FOLLICULAR PHASE 1.5-10.0 MID-CYCLE 13.0-72.0 LUTEAL PHASE 0.5-13.0 MENOPAUSE 15.0-65.0 PREPUBERTY 0- 3.0 CHILDREN 0- 6.0 ADULT MALE 1.0- 9.0 Performed By: #### E STRA #### [facility] [address] [place] [address] Luteinizing Hormone, Serumon 10-02-2019 Lutropin Qn 14.7 {IU/L} BJ-HMENR-Dbc ck er 206A IVF Work Phone: Comment on above: Luteinizing Hormone [LH] is performed using the [email or web address] Access Immunoassay. LH testing is performed using a different test methodology at [facility]. Direct result comparison should only be made within the same method.REF VALUESFOLLICULAR PHASE 1.5-10.0MID-CYCLE 13.0-72.0LUTEAL PHASE 0.5-13.0MENOPAUSE 15.0-65.0PREPUBERTY 0- 3.0CHILDREN 0- 6.0ADULT MALE 1.0- 9.0 PROGESTERONEon 10-02-2019 PROGESTERONE 0.1 ng/mL Normal [facility] Comment on above: Result Comment: Prog esterone is performed using the [email or web address] Access Immunoassay. Progesterone testing is performed using a different test methodology at [facility]. Direct result comparison should only be made within the same method. REF VALUES MALE <0.2-0.8 FOLLICULAR PHASE <0.2-1.5 LUTEAL PHASE 7.4-15.4 POSTMENOPAUSAL <0.2-0.2 1ST TRIMESTER 12.0-84.0 2ND TRIMESTER 10.2-58.8 3RD TRIMESTER 46.5-160 Performed By: #### E STRA #### [facility] [address] [place] [address] Progesterone, Serumon 2018 Progesterone [Mass/Vol] 0.1 ng/mL VO-NGCNY-Zaytd er 206A IVF Work Phone: Comment on above: Progesterone is perf ormed using the [email or web address] Access Immunoassay. Progesterone testing is performed using a different test methodology at [facility]. Direct result comparison should only be made within the same method.REF VALUESMALE <0.2-0.8 FOLLICULAR PHASE <0.2-1.5 LUTEAL PHASE 7.4-15.4 POSTMENOPAUSAL <0.2-0.2 1ST TRIMESTER 12.0-84.0 2ND TRIMESTER 10.2-58.8 3RD TRIMESTER 46.5-160 HCG,BETA-QUANTITATIVEon 07-17 HCG,BETA-QUANTITA TIVE 10 mIU/mL [facility] Comment on above: Result Comment: Low- level [...] performed using a different test methodology at [facility] Direct result comparison should only be made within the same method. REF VALUES NON FEMALE <5 MALES <5 Performed By: #### L H #### [facility] [address] [place] [address] LUTEINIZING HORMONEon 2018 LUTEINIZING HORMONE 57.0 IU/L Normal [facility] Comment on above: Result Comment: Lute inizing Hormone [LH] is performed using the [employer] Access Immunoassay. LH testing is performed using a different test methodology at [facility] Direct result comparison should only be made within the same method. REF VALUES FOLLICULAR PHASE 1.5-10.0 MID-CYCLE 13.0-72.0 LUTEAL PHASE 0.5-13.0 MENOPAUSE 15.0-65.0 PREPUBERTY 0- 3.0 CHILDREN 0- 6.0 ADULT MALE 1.0- 9.0 Performed By: #### E STRA #### [facility] [address] [place] [address] PROGESTERONEon 08-13-2019 PROGESTERONE 6.7 ng/mL Normal [facility] Comment on above: Result Comment: Prog esterone is performed using the [email or web address] Access Immunoassay. Progesterone testing is performed using a different test methodology at [facility]. Direct result comparison should only be made within the same method. REF VALUES MALE <0.2-0.8 FOLLICULAR PHASE <0.2-1.5 LUTEAL PHASE 7.4-15.4 POSTMENOPAUSAL <0.2-0.2 1ST TRIMESTER 12.0-84.0 2ND TRIMESTER 10.2-58.8 3RD TRIMESTER 46.5-160 Performed By: #### L H #### [facility] [address] [place] [address] ESTRADIOLon 08-12-2019 ESTRADIOL 1380 pg/mL Normal [facility] Comment on above: Result Comment: Estr adiol measurement is performed using the [employer] Access Immunoassay. Estradiol testing is performed using a different test methodology at [facility]. Direct result comparison should only be made within the same method. REF VALUES FOLLICULAR PHASE 20-144 MID CYCLE 64-357 LUTEAL PHASE 56-214 POSTMENOPAUSE < 32 PREPUBERTY < 20 MALE 10-18Y < 20 ADULT MALE < 40 Performed By: #### L H #### [facility] [address] [place] [address] PROGESTERONEon 08-12-2019 PROGESTERONE 1.7 ng/mL Normal [facility] Comment on above: Result Comment: Prog esterone is performed using the [employer] Access Immunoassay. Progesterone testing is performed using a different test methodology at [facility]. Direct result comparison should only be made within the same method. REF VALUES MALE <0.2-0.8 FOLLICULAR PHASE <0.2-1.5 LUTEAL PHASE 7.4-15.4 POSTMENOPAUSAL <0.2-0.2 1ST TRIMESTER 12.0-84.0 2ND TRIMESTER 10.2-58.8 3RD TRIMESTER 46.5-160 Performed By: #### L H #### [facility] [address] [place] [address] ESTRADIOLon 08-11-2019 ESTRADIOL 874 pg/mL Normal [facility] Comment on above: Result Comment: Estr adiol measurement is performed using the [employer] Access Immunoassay. Estradiol testing is performed using a different test methodology at [facility]. Direct result comparison should only be made within the same method. REF VALUES FOLLICULAR PHASE 20-144 MID CYCLE 64-357 LUTEAL PHASE 56-214 POSTMENOPAUSE < 32 PREPUBERTY < 20 MALE 10-18Y < 20 ADULT MALE < 40 Performed By: #### L H #### [facility] [address] [place] [address] PROGESTERONEon 08-11-2019 PROGESTERONE 1.2 ng/mL Normal [facility] Comment on above: Result Comment: Prog esterone is performed using the [employer] Access Immunoassay. Progesterone testing is performed using a different test methodology at [facility]. Direct result comparison should only be made within the same method. REF VALUES MALE <0.2-0.8 FOLLICULAR PHASE <0.2-1.5 LUTEAL PHASE 7.4-15.4 POSTMENOPAUSAL <0.2-0.2 1ST TRIMESTER 12.0-84.0 2ND TRIMESTER 10.2-58.8 3RD TRIMESTER 46.5-160 Performed By: #### L H #### [facility] [address] [place] [address] ESTRADIOLon 08-09-2019 ESTRADIOL 385 pg/mL Normal [facility] Comment on above: Result Comment: Estr adiol measurement is performed using the [employer] Access Immunoassay. Estradiol testing is performed using a different test methodology at [facility]. Direct result comparison should only be made within the same method. REF VALUES FOLLICULAR PHASE 20-144 MID CYCLE 64-357 LUTEAL PHASE 56-214 POSTMENOPAUSE < 32 PREPUBERTY < 20 MALE 10-18Y < 20 ADULT MALE < 40 Performed By: #### L H #### [facility] [address] [place] [address] ESTRADIOLon 08-07-2019 ESTRADIOL 80 pg/mL Normal [facility] Comment on above: Result Comment: Estr adiol measurement is performed using the [employer] Access Immunoassay. Estradiol testing is performed using a different test methodology at [facility]. Direct result comparison should only be made within the same method. REF VALUES FOLLICULAR PHASE 20-144 MID CYCLE 64-357 LUTEAL PHASE 56-214 POSTMENOPAUSE < 32 PREPUBERTY < 20 MALE 10-18Y < 20 ADULT MALE < 40 Performed By: #### L H #### [facility] [address] [place] [address] ESTRADIOLon 08-04-2019 ESTRADIOL 58 pg/mL Normal [facility] Comment on above: Result Comment: Estr adiol measurement is performed using the [employer] Access Immunoassay. Estradiol testing is performed using a different test methodology at [facility]. Direct result comparison should only be made within the same method. REF VALUES FOLLICULAR PHASE 20-144 MID CYCLE 64-357 LUTEAL PHASE 56-214 POSTMENOPAUSE < 32 PREPUBERTY < 20 MALE 10-18Y < 20 ADULT MALE < 40 Performed By: #### L H #### [facility] [address] [place] [address] ESTRADIOLon 07-07-2019 ESTRADIOL 110 pg/mL Normal [facility] Comment on above: Result Comment: Estr adiol measurement is performed using the [email or web address] Access Immunoassay. Estradiol testing is performed using a different test methodology at [facility]. Direct result comparison should only be made within the same method. REF VALUES FOLLICULAR PHASE 20-144 MID CYCLE 64-357 LUTEAL PHASE 56-214 POSTMENOPAUSE < 32 PREPUBERTY < 20 MALE 10-18Y < 20 ADULT MALE < 40 Performed By: #### L H #### [facility] [address] [place] [address] NR MRI SELLA WO/Won 05-31-20 19 NR MRI SELLA WO/W Patient Name: KIARA ASHLEY STUDY: NR MRI SELLA WO/W; 05/31/2019 2:00 pm INDICATION: History of 7 mm microadenoma 2008. COMPARISON: None. ACCESSION NUMBER(S): [id number] ORDERING CLINICIAN: SHAHLA HEALY TECHNIQUE: High resolution [...] magnum. Electronically signed by: PHYSICIAN ELLEN Normal [facility] ESTRADIOLon 05-05-2019 ESTRADIOL 217 pg/mL Normal [facility] Comment on above: Result Comment: Estr adiol measurement is performed using the [employer] Access Immunoassay. Estradiol testing is performed using a different test methodology at [facility]. Direct result comparison should only be made within the same method. REF VALUES FOLLICULAR PHASE 20-144 MID CYCLE 64-357 LUTEAL PHASE 56-214 POSTMENOPAUSE < 32 PREPUBERTY < 20 MALE 10-18Y < 20 ADULT MALE < 40 Performed By: #### E STRA #### [facility] [address] [place] [id number] LUTEINIZING HORMONEon 2018 LUTEINIZING HORMONE 4.4 IU/L Normal [facility] Comment on above: Result Comment: Lute inizing Hormone [LH] is performed using the [employer] Access Immunoassay. LH testing is performed using a different test methodology at [facility]. Direct result comparison should only be made within the same method. REF VALUES FOLLICULAR PHASE 1.5-10.0 MID-CYCLE 13.0-72.0 LUTEAL PHASE 0.5-13.0 MENOPAUSE 15.0-65.0 PREPUBERTY 0- 3.0 CHILDREN 0- 6.0 ADULT MALE 1.0- 9.0 Performed By: #### L H #### [facility] [address] [place] [address] ESTRADIOLon 04-11-2019 ESTRADIOL 118 pg/mL Normal [facility] Comment on above: Result Comment: Estr adiol measurement is performed using the [employer] Access Immunoassay. Estradiol testing is performed using a different test methodology at [facility]. Direct result comparison should only be made within the same method. REF VALUES FOLLICULAR PHASE 20-144 MID CYCLE 64-357 LUTEAL PHASE 56-214 POSTMENOPAUSE < 32 PREPUBERTY < 20 MALE 10-18Y < 20 ADULT MALE < 40 Performed By: #### E STRA #### [facility] [address] [place] [address] LUTEINIZING HORMONEon 2018 LUTEINIZING HORMONE 7.7 IU/L Normal [facility] Comment on above: Result Comment: Lute inizing Hormone [LH] is performed using the [employer] Access Immunoassay. LH testing is performed using a different test methodology at [facility]. Direct result comparison should only be made within the same method. REF VALUES FOLLICULAR PHASE 1.5-10.0 MID-CYCLE 13.0-72.0 LUTEAL PHASE 0.5-13.0 MENOPAUSE 15.0-65.0 PREPUBERTY 0- 3.0 CHILDREN 0- 6.0 ADULT MALE 1.0- 9.0 Performed By: #### L H #### [facility] [address] [place] [place] [id number] PROGESTERONEon 04-11-2019 PROGESTERONE 0.1 ng/mL Normal [facility] Comment on above: Result Comment: Prog esterone is performed using the [email or web address] Access Immunoassay. Progesterone testing is performed using a different test methodology at [facility] than universal health services. Direct result comparison should only be made within the same method. REF VALUES MALE <0.2-0.8 FOLLICULAR PHASE <0.2-1.5 LUTEAL PHASE 7.4-15.4 POSTMENOPAUSAL <0.2-0.2 1ST TRIMESTER 12.0-84.0 2ND TRIMESTER 10.2-58.8 3RD TRIMESTER 46.5-160 Performed By: #### P SVEN #### [facility] [address] [id number] ESTRADIOLon 03-17-2019 ESTRADIOL 120 pg/mL Normal [facility] Comment on above: Result Comment: Estr adiol measurement is performed using the [employer] Access Immunoassay. Estradiol testing is performed using a different test methodology at [facility] than universal health services. Direct result comparison should only be made within the same method. REF VALUES FOLLICULAR PHASE 20-144 MID CYCLE 64-357 LUTEAL PHASE 56-214 POSTMENOPAUSE < 32 PREPUBERTY < 20 MALE 10-18Y < 20 ADULT MALE < 40 Performed By: #### E STRA #### [facility] [address] [id number] LUTEINIZING HORMONEon 2018 LUTEINIZING HORMONE 6.8 IU/L Normal [facility] Comment on above: Result Comment: Lute inizing Hormone [LH] is performed using the [employer] Access Immunoassay. LH testing is performed using a different test methodology at [facility] than universal health services. Direct result comparison should only be made within the same method. REF VALUES FOLLICULAR PHASE 1.5-10.0 MID-CYCLE 13.0-72.0 LUTEAL PHASE 0.5-13.0 MENOPAUSE 15.0-65.0 PREPUBERTY 0- 3.0 CHILDREN 0- 6.0 ADULT MALE 1.0- 9.0 Performed By: #### L H #### [facility] [address] [place] [address] ESTRADIOLon 02-20-2019 ESTRADIOL 521 pg/mL Normal [facility] Comment on above: Result Comment: Estr adiol measurement is performed using the [employer] Access Immunoassay. Estradiol testing is performed using a different test methodology at [facility]. Direct result comparison should only be made within the same method. REF VALUES FOLLICULAR PHASE 20-144 MID CYCLE 64-357 LUTEAL PHASE 56-214 POSTMENOPAUSE < 32 PREPUBERTY < 20 MALE 10-18Y < 20 ADULT MALE < 40 Performed By: #### E STRA #### [facility] [address] [place] [address] LUTEINIZING HORMONEon 2018 LUTEINIZING HORMONE 3.5 IU/L Normal [facility] Comment on above: Result Comment: Lute inizing Hormone [LH] is performed using the [employer] Access Immunoassay. LH testing is performed using a different test methodology at [facility] than universal health services. Direct result comparison should only be made within the same method. REF VALUES FOLLICULAR PHASE 1.5-10.0 MID-CYCLE 13.0-72.0 LUTEAL PHASE 0.5-13.0 MENOPAUSE 15.0-65.0 PREPUBERTY 0- 3.0 CHILDREN 0- 6.0 ADULT MALE 1.0- 9.0 Performed By: #### L H #### [facility] [address] [place] [address] Vital Signs Date Time Vital Sign Value Performing Clinician Modesto golden 02-27-2023 11:35-0400 Body mass index (BMI) [Ratio] 29.26 kg/m2 Evelyn Perez Work Phone: [facility] 02-27-2023 11:35-0400 Body temperature 98.8 [degF] Evelyn Perez Work Phone: [facility] [employer] 02-27-2023 11:35-0400 Body weight 72.58 kg Evelyn Calderonrn [facility] Phone: [facility] 02-27-2023 11:35-0400 Diastolic blood pressure 66 mm[Hg] Evelyn Calderonrn Work Phone: [facility] [employer] 02-27-2023 11:35-0400 Heart rate 88 /min Evelyn Calderonrn Work Phone: [facility] [employer] 02-27-2023 11:35-0400 Respiratory rate 14 /min Evelyn Calderonrn Work Phone: [facility] [employer] 02-27-2023 11:35-0400 SaO2% (BldA) [Mass fraction] 100 % Evelyn Calderonrn Work Phone: [facility] [employer] 02-27-2023 11:35-0400 Systolic blood pressure 103 mm[Hg] Evelyn Calderonrn Work Phone: [facility] [employer] 06-19-2021 14:03-0400 Body height 157.48 cm Evelyn Calderonrn Work Phone: WN-EBIVH-Ogenyd 310 IVF Work Phone: 06-19-2021 14:03-0400 Body mass index (BMI) [Ratio] 29.26 kg/m2 Evelyn Calderonrn Work Phone: IX-RTQHQ-Ohpfac 310 IVF Work Phone: 06-19-2021 14:03-0400 Body surface area Derived from formula 1.74 m2 Evelyn Calderonrn Work Phone: CU-VHORX-Niwoia 310 IVF Work Phone: 06-19-2021 14:03-0400 Body weight 72.58 kg Evelyn Calderonrn Work Phone: VQ-LBXRX-Zmornc 310 IVF Work Phone: 06-19-2021 14:03-0400 1 1 Evelyn Husain Ana Work Phone: SN-GHUAE-Mfamix 310 IVF Work Phone: Comment on above: GRAV PARA 06-19-2021 14:03-0400 0 1 Evelyn Husain Ana Work Phone: ES-DQGEB-Gletyy 310 IVF Work Phone: Comment on above: [employer] 06-07-2020 10:41-0400 BMI (Body Mass Index) 34.93 kg/m2 King Lappen EN-CFWVV-JAB [address] [place] Work Phone: 06-07-2020 10:41-0400 Body weight 86.64 kg King Lappen VW-ARBPF-CXL [address] [place] Work Phone: 06-07-2020 10:41-0400 BP Diastolic 76 mm[Hg] King Lappen RK-YUZNP-XSH [address] [place] Work Phone: 06-07-2020 10:41-0400 BP Systolic 111 mm[Hg] King Lappen FS-BWIUL-YPT [address] [place] Work Phone: 06-07-2020 10:41-0400 BSA (Body Surface Area) 1.87 m2 King Lappen HH-YXEWD-JEU [address] [place] Work Phone: 06-07-2020 10:41-0400 Pulse (Heart Rate) 101 /min King Lappen LI-UZXRV-IMZ [address] [place] Work Phone: 06-07-2020 10:41-0400 0 1 King Lappen PY-CSBFJ-ZVT [address] [place] Work Phone: Comment on above: Pain Scale 12-25-2019 10:58-0500 BMI (Body Mass Index) 30.18 kg/m2 King Lappen WR-GYBNP-ZBB [address] [place] Work Phone: 12-25-2019 10:58-0500 Body weight 74.84 kg King Lappen XR-GKPHH-UMJ [address] [place] Work Phone: 12-25-2019 10:58-0500 BP Diastolic 68 mm[Hg] King Lappen LO-QUERQ-UNF [address] [place] Work Phone: 12-25-2019 10:58-0500 BP Systolic 112 mm[Hg] King Lappen OL-RVEQI-QSV [address] [place] Work Phone: 12-25-2019 10:58-0500 BSA (Body Surface Area) 1.76 m2 King Lappen BJ-NSZXH-YYV [address] [place] Work Phone: 11-09-2019 11:28-0500 Body Temperature 98.78 [degF] Kelechi Gage FC-AWAJC-Nnvnqp 310 IVF Work Phone: 11-09-2019 11:28-0500 BP Diastolic 76 mm[Hg] Kelechi Gage OL-SATVF-Akmqli 310 IVF Work Phone: 11-09-2019 11:28-0500 BP Systolic 112 mm[Hg] Kelechi Gage WE-IVHVA-Isbtai 310 IVF Work Phone: 11-09-2019 11:28-0500 Respiratory Rate 96 /min Kelechi Gage RE-WUBPZ-Bcyhpy 310 IVF Work Phone: Encounters Encounter Date Encounter Type Care Provider Facility Start: 01-10-2024 ambulatory Evelyn Perez MD Facility:Pulmonology & Critical Care Medicine [facility] Start: 10-05-2023 End: 10-05-2023 ambulatory SHERMAN HUNTER Not Available Start: 09-14-2023 End: 09-14-2023 ambulatory Lc Waite Facility:[facility] Start: 02-27-2023 End: 02-27-2023 Emergency department patient visit EVELYN PEREZ [facility] Start: 02-27-2023 End: 02-27-2023 Emergency department patient visit Evelyn Perez Work Phone: [facility] ED Comment on above: Sprain of left ankle , unspecified ligament, initial encounter (Primary Dx) Start: 01-13-2023 End: 01-14-2023 ambulatory Zoya Skyecharo Buitrago 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 Facility:H1 Start: 09-22-2022 End: 09-22-2022 Emergency department patient visit JAMI ROMERO [facility] Start: 03-10-[address] EVELYN PEREZ Facility:H1 [...] 12-27-2021 End: 12-27-2021 ambulatory Sabina Barnhart Other [employer] Other Start: 12-27-2021 Office outpatient visit 5 minutes Sabina Barnhart [facility] Start: 07-16-2021 Patient encounter procedure Evelyn Perez Work Phone: OW-KFHOM-Ibhhza 310 IVF Work Phone: Start: 07-07-2021 AUDIT Evelyn Husain Scherm erhorn Work Phone: OB-GNFUX-Nbwfap 310 IVF Work Phone: Start: 07-07-2021 Chart Update Evelyn Husain Schechiara erhorn Work Phone: WZ-BSWAH-Ytnfby 310 IVF Work Phone: Start: 07-02-2021 Telephone encounter Evelyn Husain Alejandro higginbothamerhorn Work Phone: DI-XNJRD-Werudh 310 IVF Work Phone: Start: 06-19-2021 Patient encounter procedure Evelyn Trevinohorn Work Phone: FM-TXVMW-Sjhtba 310 IVF Work Phone: Start: 06-07-2020 Patient encounter procedure King Lappen VT-CGRPV-ORM [address] [place] Work Phone: Start: 04-24-2020 Patient encounter procedure King Lappen RH-FHALF-UJB [address] [place] Work Phone: Start: 02-20-2020 Patient encounter procedure King Lappen JC-MWKUH-KRV [address] [place] Work Phone: Start: 02-14-2020 Patient encounter procedure King Lappen ZM-YYFJV-QNF [address] [place] Work Phone: Start: 01-23-2020 Patient encounter procedure King Lappen GV-OOTHS-WWB [address] [place] Work Phone: Start: 12-25-2019 Patient encounter procedure King Lappen II-XVABN-ZMO [address] [place] Work Phone: Start: 11-21-2019 Patient encounter procedure King Lappen CB-PYQNC-ZCX [address] [place] Work Phone: Start: 11-16-2019 Patient encounter procedure [facility]age [facility] Work Phone: Start: 11-14-2019 Patient encounter procedure Kelechi Gage EN-WHAFC-Nlhpgt 310 IVF Work Phone: Start: 11-09-2019 Patient encounter procedure Kelechi Gage UC-IMCHO-Jroqhh 310 IVF Work Phone: Start: 11-02-2019 Patient encounter procedure Kelechi Gage MP-Reproductive Endocrinology-[place] Work Phone: Start: 10-21-2019 Patient encounter procedure Kelechi Gage MP-Reproductive Endocrinology-[place] Work Phone: Start: 10-14-2019 Patient encounter procedure Kelechi Gage EE-BSQAO-Nxttcf 310 IVF Work Phone: Start: 10-11-2019 Patient encounter procedure Kelechi Gage ED-CVXMT-Dmrtpe 310 IVF Work Phone: Start: 10-05-2019 Patient encounter procedure Kelechi Gage AZ-HDHOK-Jdoehn 320 Work Phone: Start: 10-02-2019 Patient encounter procedure Kelechi TONGKB-DOWLT-Lkvqbfj 206A IVF Work Phone: Start: 08-14-2019 Patient encounter procedure Kelechi Gage CZ-AIZRK-Kxrcod 310 IVF Work Phone: Start: 08-13-2019 Patient encounter procedure Kelechi TONGGU-PRLON-Rarqye 310 IVF Work Phone: Start: 08-12-2019 Patient encounter procedure Kelechi Gage SJ-LXSDB-Talibs 310 IVF Work Phone: Start: 08-11-2019 Patient encounter procedure Kelechi Gage NP-EZUJP-Eeujpy 310 IVF Work Phone: Start: 08-09-2019 Patient encounter procedure Kelechi Gage IW-IQRDC-Lksuxx 310 IVF Work Phone: Start: 08-07-2019 Patient encounter procedure Kelechi Gage IH-KISNR-Cetcic 310 IVF Work Phone: Start: 08-04-2019 Patient encounter procedure Kelechi Gage IN-MPLLZ-Hadxrd 310 IVF Work Phone: Start: 07-07-2019 Patient encounter procedure Kelechi Gage EY-MSZGF-Lnzrwi 310 IVF Work Phone: Start: 06-08-2019 Patient encounter procedure Kelechi Gage OD-MDMVX-Bpjbto 310 IVF Work Phone: Start: 05-17-2019 Patient encounter procedure Kelechi Gage SE-NJDLH-Ihqjwb 310 IVF Work Phone: Start: 05-08-2019 Patient encounter procedure Kelechi Gage HR-JQTOA-Fehmnu 310 IVF Work Phone: Start: 05-05-2019 Patient encounter procedure Kelechi Gage GL-RXLOK-Rwngya 310 IVF Work Phone: Start: 04-13-2019 Patient encounter procedure Kelechi Gage AI-NRADK-Buicff 310 IVF Work Phone: Start: 04-11-2019 Patient encounter procedure Kelechi Gage RI-QDXWY-Bnmvdy 310 IVF Work Phone: Start: 03-20-2019 Patient encounter procedure Kelechi Gage JM-JIXBT-Atupcr 310 IVF Work Phone: Start: 03-17-2019 Patient encounter procedure Kelechi Gage YW-XPYIE-Cdjhgr 310 IVF Work Phone: Start: 02-22-2019 Patient encounter procedure Kelechi Gage VL-AZKUV-Gkfupz 310 IVF Work Phone: Start: 02-20-2019 Patient encounter procedure Kelechi Gage II-IXXDI-Zgllze 310 IVF Work Phone: Start: 02-13-2019 Patient encounter procedure Bruce Mayes Facility:[facility] Start: 02-08-2019 End: 02-12-2019 Patient encounter procedure Bruce Montiel Mayes Facility:[facility] Start: 01-19-2019 Patient encounter procedure Kelechi Gage BI-ZUVZH-Cztyxs 310 IVF Work Phone: Patient encounter status Evelyn Perez Work Phone: PV-WSFJZ-Odwpbd 310 IVF Work Phone: Procedures Date Procedure [...] Influenza vaccination Flu vacc ine (Season Ended) [facility] Start: 2021 Screening for malign ant neoplasm of cervix [facility] Start: 07-25-2021 ULTRASOUND, Provider : OBGYN IVF RDMS ARDEN 1,[facility] OBGYN, Status: Pen, Time: 9:00 AM ULTRASOUND, Provider: OBGYN IVF RDMS ARDEN 1,MG OBGYN, Status: Pen, Time: 9:00 AM AQ-QJHUM-Ikmsnt 310 IVF Work Phone: Start: 07-16-2021 ULTRASOUND, Provider : OBGYN IVF RDMS [id number] 1,MG OBGYN, Status: Pen, Time: 1:00 PM ULTRASOUND, Provider: OBGYN IVF RDMS [id number] 1,MG OBGYN, Status: Pen, Time: 1:00 PM ZO-BSRTN-Rqfann 310 IVF Work Phone: Start: 07-07-2021 ULTRASALIN, Provider : Miguel A Barrera, Status: Pen, Time: 10:00 AM ULTRASALIN, Provider: Miguel A Barrera, Status: Pen, Time: 10:00 AM GA-PDWCP-Mjvnbh 310 IVF Work Phone: Start: 06-05-2020 MAC Imaging Order MG-MARINE EQUIPMENT RESEARCH ENGINEER-MAC [address] [place] Work Phone: Start: 11-16-2019 IO Ultrasound, MP-Reproductive Endocrinology-[place] 206 Work Phone: Start: 11-14-2019 Blood count complete auto&auto difrntl wbc Complete Blood Count + Differential EV-HBTGJ-Jtfhkg 310 IVF Work Phone: Start: 11-14-2019 Comprehensive metabo lic 2000 panel ZZ-COXJF-Ztphhr 310 IVF Work Phone: Start: 11-02-2019 Gonadotropin chorion ic quantitative HCG, Beta Quantitative MP-Reproductive Endocrinology-[place] 206 Work Phone: Start: 10-11-2019 IO Ultrasound, limited pelvic, follicle monitoring FZ-EMMRN-Hyleow 310 IVF Work Phone: Start: 10-05-2019 IO Ultrasound, limited pelvic, follicle monitoring YX-PGEWK-Eqznwx 320 Work Phone: Start: 2012 Screening for malign ant neoplasm of cervix Pap smear [facility] Start: 2010 DTaP/Tdap/Td vaccine (1 - Tdap) DTaP/Tdap/Td vaccine (1 - Tdap) [facility] Start: 2009 Hepatitis C screening Hepatitis C sc reen [facility] Start: 2006 HIV screening HIV screen [facility] Start: 2003 Depression Screen Depression Screen [facility] Start: 1992 Varicella vaccine (1 of 2 - 2-dose childhood series) Varicella vaccine (1 of 2 - 2-dose childhood series) [facility] Start: 03-02-1992 COVID-19 Vaccine (#1) COVID-19 Vacci ne (#1) [facility] Assay of estradiol Estradiol, Serum MG-MARINE EQUIPMENT RESEARCH ENGINEER-Risman 310 IVF Work Phone: Comment on above: Approx [id number] Approx [id number] Approx [id number] Assay of progesterone Progesterone, Serum XA-ZRHKV-Kqqtqd 310 IVF Work Phone: Comment on above: Approx [id number] Gonadotropin luteini zing hormone Luteinizing Hormone, Serum DJ-EYCAQ-Iceabo 310 IVF Work Phone: Comment on above: Approx [id number] JC-HUGTU-Xztpym 320 Work Phone: IO Ultrasound, l imited pelvic, follicle monitoring IH-SOFNC-Uyhvty 310 IVF Work Phone: Comment on above: Approx [id number] Approx 13Oct2019 Approx 02Oct2019 NEGATED: Highlighted row has been ruled out! Planned Goals not documented OS-JQMVI-Kmqpso 310 IVF Work Phone: Payers Date Payer Category Payer Self-pay 2017 Unknown 1991 Unknown [id number] 2.16.84 [id number] 1991 Unknown [id number] 2.16.84 0.1.979321.3.579.2.593 1991 Unknown [id number] 2.16.84 0.1.311481.3.579.2.593 1991 Unknown [id number] 2.16.84 0.1.850042.3.579.2.593 1991 Unknown [id number] 2.16.84 0.1.514320.3.579.2.593 1991 Unknown [id number] 2.16.84 0.1.705501.3.579.2.593 1991 Unknown [id number] 2.16.84 0.1.402324.3.579.2.593 1991 Unknown [id number] 2.16.84 0.1.314645.3.579.2.593 1991 Unknown [id number] 2.16.84 0.1.121036.3.579.2.593 1991 Unknown [id number] 2.16.84 0.1.106086.3.579.2.593 1991 Unknown [id number] 2.16.84 0.1.016971.3.579.2.593 1991 Unknown [id number] 2.16.84 0.1.967258.3.579.2.593 1991 Unknown [id number] 2.16.84 0.1.343714.3.579.2.593 1991 Unknown [id number] 2.16.84 0.1.836857.3.579.2.593 1991 Unknown [id number] 2.16.8 40.1.325091.3.579.2.173 1991 Unknown [id number] 2.16.8 40.1.354720.3.579.2.173 1991 Unknown [id number] 2.16.840 .1.942791.3.579.2.1259 1991 Unknown [id number] 2.16. 840.1.014712.3.579.2.196 1991 Unknown [id number] 2.16. 840.1.935711.3.579.2.196 1959 Self-pay [id number] 1959 Unknown [id number] 1959 Unknown [id number] Unknown [id number] 2.16.8 40.1.970311.3.579.2.243 Unknown [id number] 2.16.8 40.1.826368.3.579.2.243 Unknown [id number] 2.16.8 40.1.998609.3.579.2.531 Social History Date Type Detail Facility - - PW-AMSMH-Jsulkp 310 IVF Work Phone: Never a smoker Never a smoker MG-OBSACHIN-Renee rosario 310 IVF Work Phone: Comment on above: [facility] ED; Sex Assigned At Sex Assigned At [facility] [employer] Other Start: 09-22-2022 Tobacco smoking stat [facility] Never smoked tobacco [employer] Work Phone: Start: 09-22-2022 Tobacco use and exposure Smokeless tobacco non-user [employer] Work Phone: Start: 1990 Sex Assigned At Not on file B ON [employer] Work Phone: Start: 02-17-2023 End: 02-27-2023 Exposure to SARS-CoV-2 (event) Not sure BON [employer] Functional Status Date Assessment Result Facility NEGATED: Highlighted row Functional performance Functional status health issues are not documented Disease PZ-RZWRM-Lxcyky 310 IVF Work Phone: Mental Status Date Assessment Result Facility NEGATED: Highlighted row Cognitive function [Interpretation] Cognitive status health issues are not documented Disease EO-WPHRO-Fhcaxd 310 IVF Work Phone: Clinical Note 01-13-2023 [...] qualifying data available. Assessment/Plan 1. Asthma Ordered: [id number] AMB Admin of patient-focused health risk assessment [...] signed by Link Zoya PERKINS 01/13/23 12:06 [facility] Evaluation note 12-27-2021 Note Date & [...] Patient care instructions given in writting by [facility] Care At Home document. [employer] Other Clinical Note 07-25-2021 Note Date & [...] for care. Reviewed plan with Dr. Bruce Aubrto, EMBEDDED SOFTWARE MANAGER 07/25/2021 09:22 note: ob scan LOLLY: 03/05/2022. [...] Plan reviewed by Dr. Healy. Petra Lombardi EMBEDDED SOFTWARE MANAGER 07/16/21 1409 TC to pt with quant = 3238 form yesterday; normal rise from 728 on 07/02; Pt doing well; no problems with Lovenox. PT transferred to [facility] to schedule OB US for next week at [facility]. eBre Way RN 07/07/2021 11:47 Spoke with patient regarding JGJC=521. Pain=0. Patient states she will begin prometrium BID and Lovenox today. Patient will repeat BHCg on Wednesday when she is at work. Patient aware RN will call her WednesdayJuly 07 with results and plan. Lucy Dunlap R.N.07/03/2021 12:19 Spoke to patient, will start Prometrium 100 mg BID and Lovenox 40 mg BID today (+Protein S deficiency). [place] to f/u with patient tomorrow once HCG level is back. Patient verbalized understanding. Rosibel Sam RN 07/02/2021 13:54 note: Reviewed positive test. LMP 05/29, conceived on christy cycle/IC. Plan to get HCG drawn today. Start Prometrium 100mg BID. Start Lovenox 40mg BID SQ. Plan per Dr. Healy. RN to communicate. Petra Lombardi [facility] 07/02/21 1304 Active Problems 16 weeks gestation [...] directed. Peak F (more content not included)... PenBlade Chief complaint Narrative - Reported 06-19-2021 Note [...] 30 year-old who presents for a FET [id number] Hx:06/2020: IOL @ 38 weeks due to [...] contour on HSG - images reviewed from [facility] 08/2018Uterine Cavity Evaluation:Normal uterine cavity [...] Ashley 04/09/1989A in past year:2.8 cc125 mil/mL69% qunktdijFKG=879 million(recent IUI sample)Morph from original SA was 2.8% IU-USSYY-Zqbhnr 310 IVF Work Phone: Evaluation note Note Date & Type Note Facility Evaluation note Diagnosis Sprain of left ankle, unspecified ligament, initial encounter- Primary documented in this encounter [facility] Phone: Hospital Discharge instructions Attachments Note Date & Type Note Facility Hospital Discharge instructions The following attachments cannot be sent through Care Everywhere.Ankle Sprain (Bulgarian)Ankle Sprain: Rehab Exercises (Bulgarian)documented in this encounter [facility] Phone: Summary Purpose Family History No Family [...] section and content) DATE CREATED AUTHOR 02/15/2019 [facility] DATE CREATED AUTHOR AUTHOR'S ORGANIZ ATION 11/12/[address] [facility] DATE CREATED AUTHOR AUTHOR'S ORGANIZ ATION 08/09/2020 [facility] DATE CREATED AUTHOR AUTHOR'S ORGANIZ ATION 07/26/2021 [employer] DATE CREATED AUTHOR AUTHOR'S ORGANIZ ATION 01/21/2023 [facility] DATE CREATED AUTHOR AUTHOR'S ORGANIZ ATION 03/06/2023 [facility] DATE CREATED AUTHOR AUTHOR'S ORGANIZ ATION 07/12/2023 [facility] DATE CREATED AUTHOR AUTHOR'S ORGANIZ ATION 10/04/2023 [facility] DATE CREATED AUTHOR AUTHOR'S ORGANIZ ATION 10/07/2023 [facility] EPIC DATE CREATED AUTHOR AUTHOR'S ORGANIZ ATION 10/30/2023 [facility] REASON FOR VISIT (unrecogniz ed section and content) Reason Comments Ankle Pain Rolled ankle during morning run. Swelling to lateral ankle. 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 Care Teams (unrecognized sec tion and content) Chief Of Production Relationship Specialty Start Date End Date Evelyn Perez [address] [place] [address] PCP - General Pediatrics 09/22/22 [...] BE BASED ON THE PRIMARY CLINICAL RECORDS. [employer] provides no warranty or guarantee of the accuracy or completeness of information in this document.
[2023-11-05 04:07] LABS: Thyroid Peroxidase (TPO) Ab 15 IU/mL (0-34)
== END 2023-11-03 15:51 | disposition home or self-care (01) ==
LOC: LAB 15:50
DX: E03.9 Hypothyroidism, unspecified (principal)
CPT/HCPCS: 36415; 86376

== ENCOUNTER 2023-11-03 16:01 | Outpatient (OUT) | payer BC, SELFPAY ==
[2023-11-03 16:19] LABS: Basophils Absolute Auto 0.1 10^3/uL (0.0-0.1); Basophils Percent Auto 0.9 % (0.2-2.0); Eosinophils Absolute Auto 0.2 10^3/uL (0.0-0.7); Eosinophils Percent Auto 1.8 % (0.9-7.0); Hematocrit 38.7 % (36.0-48.0); Hemoglobin 12.7 g/dL (12.0-16.0); Immature Granulocytes Abs Auto 0.17 10^3/uL (0.00-0.03); Immature Granulocytes Pct Auto 1.4 % (0.0-0.5); Lymphocytes Absolute Auto 2.8 10^3/uL (1.2-3.8); Mean Corpuscular HGB Conc 32.8 g/dL (29.9-35.2); Mean Corpuscular Hemoglobin 30.8 pg (26.7-34.0); Mean Corpuscular Volume 93.9 fL (81.0-99.0); Mean Platelet Volume 9.4 fL (9.5-13.5); Monocytes Absolute Auto 0.4 10^3/uL (0.3-0.8); Monocytes Percent Auto 3.3 % (1.7-12.0); Neutrophils Absolute Auto 8.9 10^3/uL (1.4-6.5); Neutrophils Percent Auto 70.6 % (43.0-75.0); Platelet Count 317 10^3/uL (150-450); Red Blood Count 4.12 10^6/uL (4.20-5.40); Red Cell Distribution Width 14.3 % (11.0-15.0); White Blood Count 12.6 10^3/uL (4.0-11.0)
--- OUTSIDE RECORDS SUMMARY | 2023-11-04 10:03 | XMS_ITS | CCD ---
Author Name Unknown Address [address] [place] [address] Organization [facility] Care Team Providers Care Dry Cell Sealer Name Role Phone Bruce Mayes Attending Unavailable Bruce Mayes Primary Care Unavailable Shahla Healy Consulting Unavailable Bruce Mayes Attending Unavailable Bruce Mayes Primary Care Unavailable Shahla Healy Consulting Unavailable Kelechi Gage Unavailable Unavailable OBGYN IVF RDMS ARDEN 1, MG OBGYN Unavailable Unavailable Evelyn Perez Unavailable Unavailabl e Shahla Healy Unavailable Unavailable Shahla Healy Unavailable Unavailable IVF NURSE OSMEL HER Unavailable Unavaila ble OBGYN IVF RDMS [id number], MG OBGYN Unavailable Unavailable King Guevara Unavailable Unavailable Shahla Healy Unavailable Unavailable January, Jami Unavailable Unavailable Evelyn Perez Unavailable Unavailable Unavailable Unavailable Unavailable Sabina Barnhart Unavailable ANA, DR EVELYN Husain Primary Care Unavail able GISSEL ., DR CRUM Attending Unavailable GISSEL ., DR CRUM Admitting Unavailable ANA, DR EVELYN Husain Primary Care Unavail able GISSEL ., DR CRUM Attending Unavailable GISSEL ., DR CRUM Admitting Unavailable GISSEL ., DR CRUM Consulting Unavailable GISSEL ., DR CRUM Attending Unavailable GISSEL ., DR CRUM Admitting Unavailable ANA, DR EVELYN Husain Primary Care Unavail able ANA, DR EVELYN Husain Primary Care Unavail able GISSEL ., DR CRUM Attending Unavailable GISSEL ., DR CRUM Admitting Unavailable GISSEL ., DR CRUM Consulting Unavailable ANA, DR EVELYN Husain Primary Care Unavail able GISSEL ., DR CRUM Attending Unavailable GISSEL ., DR CRUM Admitting Unavailable ZIEBER, DR BLU Starr Consulting Unavailable WEST, DR JESSE Alvarez Consulting Unavailable ANA, DR EVELYN Husain Primary Care Unavail able GISSEL ., DR CRUM Attending Unavailable GISSEL ., DR CRUM Admitting Unavailable GISSEL ., DR CRUM Consulting Unavailable KARASIK ., DR SHETH Consulting Unavailabl e KARASIK ., DR SHETH Attending Unavailabl e KARASIK ., DR SHETH Admitting Unavailabl e ANA, DR EVELYN Husain Primary Care Unavail able WEST, DR JESSE Alvarez Consulting Unavailable ANA, DR EVELYN Husain Primary Care Unavail able GISSEL ., DR CRUM Attending Unavailable GISSEL ., DR CRUM Admitting Unavailable GISSEL ., DR CRUM Consulting Unavailable KARASIK ., DR SHETH Consulting Unavailabl e GISSEL ., DR CRUM Primary Care Unavailable KARASIK ., DR SHETH Attending Unavailabl e KARASIK ., DR SHETH Admitting Unavailabl e GISSEL ., DR CRUM Consulting Unavailable GISSEL ., DR CRUM Procedure Practitioner Unavail able GISSEL ., DR CRUM Consulting Unavailable ANA, DR EVELYN Husain Primary Care Unavail able GISSEL ., DR CRUM Attending Unavailable GISSEL ., DR CRUM Admkaterine Unavailable ANA, DR EVELYN Husain Primary Care Unavail able GISSEL ., DR CRUM Attending Unavailable GISSEL ., DR CRUM Admitting Unavailable GISSEL ., DR CRUM Consulting Unavailable ANA, DR EVELYN Husain Primary Care Unavail able GISSEL ., DR CRUM Attending Unavailable GISSEL ., DR CRUM Admkaterine Unavailable ANA, DR EVELYN Husain Primary Care Unavail able GISSEL ., DR CRUM Attending Unavailable GISSEL ., DR CRUM Admitting Unavailable ANA, DR EVELYN Husain Primary Care Unavail able GISSEL ., DR CRUM Attending Unavailable GISSEL ., DR CRUM Admkaterine Unavailable AnaEvelyn santana Primary Care Provider [phone] JAMI ROMERO Attending Unavailable ANA, EVELYN Husain Primary Care UnavailEVELYN Tomlinson Primary Care Unavailleyda e Lc Waite Admitting Evelyn Patino [facility] Unavailable Lc Waite Attending Unavailable SHERMAN HUNTER Attending Unavailable Link [facility], Zoya Cheung Attending Robert Perez MD, Evelyn Gracia Primary Care Evelyn Hernandez MD Primary [facility] Buitrago APRNSIVA, Zoya Cheung Attending Robert ilable Allergies Allergy Classification Reported Allergen(s) Allergy Type Date of Onset Reaction(s) Facility Progesterone (2 sources) Progesterone; Translations: [Progesterone OIL] Drug Allergy [id number] n 310 IVF Work Phone: (16 sources) Progesterone; Translations: [Progesterone OIL] Drug Allergy 2 [facility] (2 sources) sesame seed extract Drug Allergy The [facility] Repository (1 source) No Known Medication Allergies; Translations: [No Known Medication Allergies] Propensity to adverse reactions to drug (disorder) [facility] Repository Medications Current Medications Medication Drug Class(es) Dates Sig (Normalized) Sig (Original) metoclopramide 10 mg oral tablet (4 sources) Dopamine-2 Receptor Antagonist Start: 09-22-2022 take 1 tablet by mouth four times daily metoclopramide (REGLAN) 10 MG tablet Take 1 tablet by mouth 4 times daily 30 tablet 0 09/22/2022 Active Start: 01-23-2020 Reglan 10 MG O ral Tablet Refills: 0 DO Start : 23-Jan-2020 Active ondansetron 4 mg disintegrating oral tablet (4 sources) Serotonin-3 Receptor Antagonist Start: 09-22-2022 take 1 tablet by mouth every eight hours as needed for nausea ondansetron (ZOFRAN ODT) 4 MG disintegrating tablet Take 1 tablet by mouth every 8 hours as needed for Nausea or Vomiting 20 tablet 0 09/22/2022 Active Start: 01-23-2020 take 1 tablet by immanuel th every four to six hours as needed for nausea Ondansetron 4 MG Oral Tablet Disintegrating TAKE 1 TABLET Every 4-6 hours as needed for nausea Quantity: 1 Refills: 15 January Jami CALDERÓN Start : 23-Jan-2020 Active 30 Tablet Bottle MV & Min w/FA-DHA ( ADULT GUMMY/DHA/FA PO) (1 source) MV & Mi n w/FA-DHA ( ADULT GUMMY/DHA/FA PO) Take by mouth 0 Active Completed/Discontinued Medications Medication Drug Class(es) Dates Sig (Normalized) Sig (Original) acetaminophen 300 mg / codeine phosphate 30 mg oral tablet (20 sources) Opioid Agonist Start: 08-14-2019 take 1 tablet by mouth every four to six hours as needed for pain Acetaminophen-Cod eine 300-30 MG Oral Tablet TAKE 1 TABLET EVERY 4 TO 6 HOURS NEEDED FOR PAIN. Quantity: 10 Refills: 0 Kelechi Gage MD Start : 14-Aug-2019 Active [id number] 200 actuat albuterol 0.09 mg/actuat metered dose inhaler (13 sources) beta2-Adrenergic Agonist Start: 05-19-2019 Ventolin HFA 108 (90 Base) MCG/ACT Inhalation Aerosol Solution Quantity: 18 Refills: 0 Ordered: 19-May-2019 DO Start : 19-May-2019 Active Start: 05-19-2019 Ventolin HFA 1 08 (90 Base) MCG/ACT Inhalation Aerosol Solution Quantity: 18 Refills: 0 DO Start : 19-May-2019 Active take 2 puff(s) by in halation every six hours as needed for wheezing albuterol sulfate HFA (PROVENTIL;VENTOLIN;PROAIR) 108 (90 Base) MCG/ACT inhaler Inhale 2 puffs into the lungs every 6 hours as needed for Wheezing 0 Active alpha-tocopherol acetate 30 unt / ascorbic acid 100 mg / beta carotene 1000 unt / calcium carbonate 200 mg / calcium pantothenate 7 mg / cholecalciferol 400 unt / docusate sodium 25 mg / ferrous fumarate 29 mg / folic acid 1 mg / niacinamide 15 mg / pyridoxine hydrochloride 20 mg / riboflavin 3 mg / thiamine 3 mg / vitamin b12 0.012 mg / zinc oxide 20 mg oral tablet (20 sources) Vitamin B12, Vitamin D, Vitamin C Start: 01-19-2019 19 Oral Tablet Quantity: 0 Refills: 0 Ordered: 19-Jan-2019 DO Start : 19-Jan-2019 Active BD Disp [place] 27G X 1/2 (19 sources) Start: 10-03-2019 BD Disp Needle s 27G X 1/2 USE DIRECTED. Quantity: 2 Refills: 2 Shahla Healy MD Start : 03-Oct-2019 Active chorionic gonadotropin 97891 unt/ml injectable solution (19 sources) Gonadotropin Start: 10-03-2019 Chorionic Gonadotropin 11336 UNIT Intramuscular Solution Reconstituted USE DIRECTED. Quantity: 1 Refills: 1 Shahla Healy MD Start : 03-Oct-2019 Active 0.4 ml enoxaparin sodium 100 mg/ml prefilled syringe (20 sources) Low Molecular Weight Heparin Start: 06-07-2020 Lovenox 80 MG/0.8ML Subcutaneous Solution Refills: 0 DO Start : 07-Jun-2020 Active 0.8 ML Syringe Start: 11-02-2019 inject 40 mg by subc utaneous injection twice daily Enoxaparin Sodium 40 MG/0.4ML Subcutaneous Solution INJECT 40 MG Twice daily Quantity: 60 Refills: 2 Ordered: 02-Jul-2021 Shahla Healy MD Start : 02-Jul-2021 Active Start: 02-08-2019 Enoxaparin Sod ium 60 MG/0.6ML Subcutaneous Solution Refills: 0 DO Start : 08-Feb-2019 Active 0.6 ML Syringe enoxaparin (LOVE NOX) 300 MG/3ML injection Inject 0.4 mLs into the skin daily 0 Active famotidine 20 mg oral tablet (20 sources) Histamine-2 Receptor Antagonist Start: 01-19-2019 Pepcid 20 MG Oral Tablet Refills: 0 DO Start : 19-Jan-2019 Active 12 hr fexofenadine hydrochloride 60 mg / pseudoephedrine hydrochloride 120 mg extended release oral tablet (18 sources) alpha-Adrenergic Agonist, Histamine-1 Receptor Antagonist Start: 01-19-2019 Connie-D Allergy [facility] Congestion 60-120 MG Oral Tablet Extended Release 12 Hour Refills: 0 DO Start : 19-Jan-2019 Active fluticasone propionate 0.05 mg/actuat metered dose nasal spray (20 sources) Corticosteroid Start: 01-19-2019 Flonase Allerg y Relief 50 MCG/ACT Nasal Suspension Quantity: 0 Refills: 0 Ordered: 19-Jan-2019 DO Start : 19-Jan-2019 Active Start: 01-19-2019 Flonase Allerg y Relief 50 MCG/ACT Nasal Suspension Refills: 0 DO Start : 19-Jan-2019 Active 9.9 ML Bottle 0.36 ml follitropin beta 833 unt/ml cartridge (19 sources) Start: 10-03-2019 inject 75 [IU] by subcutaneous injection once daily Follistim AQ 300 UNT/0.36ML Subcutaneous Solution INJECT 75 UNIT Daily Quantity: 1 Refills: 4 Shahla Healy MD Start : 03-Oct-2019 Active 0.42 ML Crtrdg-NDL Start: 10-03-2019 inject 75 [IU] by li bcutaneous injection once daily Follistim AQ 300 UNT/0.36ML Subcutaneous Solution INJECT 75 UNIT Daily Quantity: 1 Refills: 4 Shahla Healy MD Start : 03-Oct-2019 Active 0.42 ML Crtrdg-NDL 60 actuat formoterol fumarate 0.005 mg/actuat / mometasone furoate 0.2 mg/actuat metered dose inhaler (20 sources) Corticosteroid, beta2-Adrenergic Agonist Start: 01-19-2019 Dulera 200-5 MCG/ACT Inhalation Aerosol Quantity: 0 Refills: 0 Ordered: 19-Jan-2019 DO Start : 19-Jan-2019 Active Start: 01-19-2019 Dulera 200-5 M CG/ACT Inhalation Aerosol Refills: 0 DO Start : 19-Jan-2019 Active 8.8 GM Inhaler take 2 puff(s) by in halation in the morning mometasone-formoterol (DULERA) 200-5 MCG/ACT inhaler Inhale 2 puffs into the lungs in the morning and 2 puffs in the evening. 0 Active letrozole 2.5 mg oral tablet (19 sources) Aromatase Inhibitor Start: 10-03-2019 take 2 tablets by mouth once daily, then take 3-7 tablets by mouth once daily Letrozole 2.5 MG Oral Tablet TAKE 2 TABLET Daily take tablets on cycle days 3-7 please perform urine negative home test prior to starting medications Quantity: 10 Refills: 2 Shahla Healy MD Start : 03-Oct-2019 Active loratadine 10 mg oral capsule (20 sources) Start: 05-17-2019 take 1 capsule by mouth once daily Claritin 10 MG Oral Capsule TAKE 1 CAPSULE Daily Quantity: 30 Refills: 0 Ordered: 17-May-2019 DO Start : 17-May-2019 Active pantoprazole 20 mg delayed release oral tablet (3 sources) Proton Pump Inhibitor Start: 01-23-2020 Protonix 20 MG Oral Tablet Delayed Release Refills: 0 DO Start : 23-Jan-2020 Active Peak Air Peak Flow Meter Device (7 sources) Start: 12-25-2019 Peak Air Peak Flow Meter Device Use as directed. Quantity: 1 Refills: 0 Paola King CALDERÓN Start : 25-Dec-2019 Active Start: 12-25-2019 Peak Air Peak Flow Meter Device USE DIRECTED. Quantity: 1 Refills: 0 JustoKing chisholm MD Start : 25-Dec-2019 Active Peak Flow Meter Hardin Rang Device (3 sources) Start: 01-23-2020 Peak Flow Mete r Hardin Rang Device USE DIRECTED. Quantity: 1 Refills: 0 January Jami CALDERÓN Start : 23-Jan-2020 Active progesterone 100 mg oral capsule (9 sources) Progesterone Start: 07-02-2021 Progesterone 1 00 MG Oral Capsule Insert 1 capsule per vagina twice daily Quantity: 60 Refills: 3 Ordered: 02-Jul-2021 Shahla Healy MD Start : 02-Jul-2021 Active Start: 11-06-2019 Progesterone 5 0 MG/ML Intramuscular Oil Refills: 0 DO Start : 06-Nov-2019 Active Problems Active Problems Problem Classification Problem Date Documented Da te Episodic/Chronic Asthma (20 sources) Asthma; Translations: [Asthma, unspecified type, unspecified] Chronic Cancer; other and unspecified primary (20 sources) Personal history of other benign neoplasm; Translations: [History of neoplasm of pituitary gland] Episodic Coagulation and hemorrhagic disorders (20 sources) Protein S deficiency disease; Translations: [Thrombophilia] Onset: 2 Chronic Esophageal disorders (20 sources) Gastroesophageal reflux disease; Translations: [Esophageal reflux] Chronic Female infertility (20 sources) Female infertility; Translations: [Infertility, female, of unspecified origin] Chronic Immunizations and screening for infectious disease (20 sources) Patient encounter status; Translations: [Screening examination for venereal disease] Onset: 2 Resolved: 2 Episodic Menstrual disorders (20 sources) Irregular periods; Translations: [Irregular menstrual cycle] Chronic Other and unspecified benign neoplasm (20 sources) Pituitary microadenoma; Translations: [Benign neoplasm of pituitary gland and craniopharyngeal duct] Episodic Other complications of ; puerperium affecting management of mother (5 sources) Forceps delivery - delivered; Translations: [Forceps or vacuum extractor delivery without mention of indication, unspecified as to episode of care or not applicable] Episodic Other complications of (10 sources) Thrombophilia; Translations: [Coagulation defects complicating , childbirth, or the puerperium, antepartum condition or complication] Episodic Other complications of (5 sources) Asthma in ; Translations: [Other current conditions classifiable elsewhere of mother, antepartum condition or complication] Episodic Other complications of (5 sources) Anxiety; Translations: [Mental disorders of mother, condition or complication] Episodic Other nervous system disorders (20 sources) Postoperative pain ; Translations: [Other acute postoperative pain] Episodic Other nutritional; endocrine; and metabolic disorders (8 sources) Obesity; Translations: [Obesity complicating , childbirth, or the puerperium, antepartum condition or complication] Chronic Other screening for suspected conditions (not mental disorders or infectious disease) (20 sources) care status; Translations: [Patient encounter status] Onset: 2 Resolved: 1 Episodic Other upper respiratory disease (20 sources) Seasonal allergy; Translations: [Allergic rhinitis, cause unspecified] Chronic Phlebitis; thrombophlebitis and thromboembolism (20 sources) H/O: thrombosis; Translations: [H/O: Deep vein thrombosis] Episodic Pulmonary heart disease (20 sources) Pulmonary embolism; Translations: [Other pulmonary embolism and infarction] Episodic Residual codes; unclassified (8 sources) Gestation period, 20 weeks; Translations: [ state, incidental] Episodic Residual codes; unclassified (8 sources) Gestation period, 26 weeks; Translations: [ state, incidental] Episodic Residual codes; unclassified (7 sources) Gestation period, 33 weeks; Translations: [ state, incidental] Episodic Residual codes; unclassified (7 sources) Gestation period, 35 weeks; Translations: [ state, incidental] Episodic Residual codes; unclassified (5 sources) Gestation period, 16 weeks; Translations: [ state, incidental] Episodic Sprains and strains (2 sources) Sprain of left ankle; Translations: [Sprain of unspecified ligament of left ankle, initial encounter] Onset: 3 Episodic Unclassified (2 sources) [facility] Onset: 9 Unclassified (1 source) PERSONAL HISTORY OF COVID-19; Translations: [PERSONAL HISTORY OF COVID-19] Onset: 2 Unclassified (1 source) CONTACT W/AND (SUSP) EXPOS COVID-19; Translations: [CONTACT W/AND (SUSP) EXPOS COVID-19] Onset: 2 Viral infection (20 sources) Human papilloma virus infection; Translations: [Human papillomavirus in conditions classified elsewhere and of unspecified site] Episodic Past or Other Problems Problem Classification Problem Date Documented Date Episodic/Chronic Abdominal pain (18 sources) Pain in female pelvis; Translations: [Unspecified symptom associated with female genital organs] Onset: 09-22-2022 Episodic OB-related trauma to perineum and vulva (1 source) Second degree perineal laceration during delivery; Translations: [SECOND DEG PERINEAL LAC DUR DELIV] Onset: 02-25-2022 Episodic Other complications of ; puerperium affecting management of mother (1 source) Other diseases of the blood and blood-forming organs and certain disorders involving the immune mechanism complicating childbirth; Translations: [OTH DZ BLD BFO IMMUN COMP CHILDBRTH] Onset: 02-25-2022 Episodic Other complications of ; puerperium affecting management of mother (1 source) Streptococcus B carrier state complicating childbirth; Translations: [STREP B TAVARES STATE COMP CHILDBIRTH] Onset: 02-25-2022 Episodic Other complications of (4 sources) Other diseases of the blood and blood-forming organs and certain disorders involving the immune mechanism complicating , third trimester; Translations: [OTH DZ BLD BFO IMMN COMP PG 3RD TRI] Onset: 02-18-2022 Episodic Other complications of (1 source) Other specified related conditions, third trimester; Translations: [OTH SPEC PREG RELATED COND 3RD TRI] Onset: 02-12-2022 Episodic Other complications of (3 sources) Other diseases of the blood and blood-forming organs and certain disorders involving the immune mechanism complicating , unspecified trimester; Translations: [OTH DZ BLD BFO IMMN COMP PG UNS TRI] Onset: 02-03-2022 Episodic Other and delivery including normal (20 sources) test positive; Translations: [] Onset: 02-24-2022 Episodic Residual codes; unclassified (1 source) 38 weeks gestation of ; Translations: [38 WEEKS GESTATION OF ] Onset: 02-25-2022 Episodic Residual codes; unclassified (1 source) 37 weeks gestation of ; Translations: [37 WEEKS GESTATION OF ] Onset: 02-24-2022 Episodic Residual codes; unclassified (1 source) 36 weeks gestation of ; Translations: [36 WEEKS GESTATION OF ] Onset: 02-12-2022 Episodic Residual codes; unclassified (1 source) 35 weeks gestation of ; Translations: [35 WEEKS GESTATION OF ] Onset: 02-06-2022 Episodic Residual codes; unclassified (3 sources) Gestation period, 16 weeks; Translations: [16 weeks gestation of ] Unclassified (20 sources) Patient encounter status; Translations: [Fertility testing] NEGATED: Highlighted row has not occurred!Residual codes; unclassified (20 sources) Disease Episodic Results Test Name Value Interpretation Reference Range Facility Phone Note - Heme Onc-medica tion questionon 07-12-2023 Phone Note - Heme Onc-medication question Phone Call Information: Patient Demographics: Name: KIARA ASHLEY Date: 1990 Address: [address] [place] [address] Date and Time: 12-Jul-2023 09:31 Caller Information: call from Call From: patient Caller Name: Kiara Primary Phone Number: [phone] Reason for Call: Reason for Callmedication question Message: Message: Patient found out yesterday that she is so she will need to double her Lovenox Asking for new RX Caller Informed Of: Per Dr. Mayes: she needs lovenox 40 mg SC BID for first trimester Team Communication: Clinician note: contacted patient Disposition: Rx sent by eprescribe Team Communications: Spoke with the patient. States she is positive for . Provided update from Dr. Mayes above. Pt asked for script to be sent to [facility]. Script sent. Pt had no further questions or concerns at this time. LamodaHarmony 07/12/2023 09:54 Lamoda, Harmony 07/12/2023 09:57 Outpatient Medication Profile: * Patient Currently Takes Medications as of 31-May-2023 13:54 documented in Structured Notes enoxaparin 40 mg/0.4 mL injectable solution: 40 milligram(s) subcutaneously once a day , Start Date: 31-May-2023 enoxaparin 100 mg/mL injectable solution: 90 milligrams SUBQ 2 times a day Waste 10 mg prior to giving dose , Start Date: 20-Jan-2022 Dulera 200 mcg-5 mcg/inh inhalation aerosol: 2 puff(s) inhaled 2 times a day 1 oral capsule: Calcium 600+D oral tablet: orally once a day Vitamin D3 1000 intl units (25 mcg) oral tablet: albuterol 90 mcg/inh inhalation aerosol: 2 puff(s) inhaled every 6 hours Allergies: NKDA: Sesame oil: Swelling/Edema Lab Results: Results CBC date/time WBC HGB HCT PLT Neut 06-Aug-2020 14:22 9.5 12.9 40.4 410 6.15 BMP date/time NA K CL CO2 BUN CREAT 24-Apr-2020 15:50 137 3.7 106 N/A 7 0.70 Electronic Signatures: Harmony Ross (N MGR) (Signed 12-Jul-2023 09:57) Authored: Phone Call Information Ashli Coleman (UNIT SECT) (Signed 12-Jul-2023 09:31) Authored: Phone Call Information, Outpatient Medication Profile, Allergies, Results Last Updated: 12-Jul-2023 09:57 by Harmony Ross (N MGR) Normal [facility] XR ANKLE LEFT (MIN 3 VIEWS)o n 02-27-2023 XR ANKLE LEFT (MIN 3 VIEWS) EXAMINATION: THREE XRAY VIEWS OF THE LEFT ANKLE 02/27/2023 11:46 am COMPARISON: None. HISTORY: ORDERING SYSTEM PROVIDED HISTORY: pain, swelling TECHNOLOGIST PROVIDED HISTORY: pain, swelling FINDINGS: The bone mineralization is within normal limits. The ankle mortise is stable. No acute fractures or dislocations are seen. There is no soft tissue swelling. IMPRESSION: 1. No acute osseous abnormality involving the left ankle. Interpreted by: Dario William MD Signed by: Dario William MD 02/27/23 Final result Normal [facility] 1. No acute osseous abnormality involving the left ankle. [facility] RIS CONSOLIDATED EXAMINATION: THREE XRAY VIEWS OF THE LEFT ANKLE 02/27/2023 11:46 am COMPARISON: None. HISTORY: ORDERING SYSTEM PROVIDED HISTORY: pain, swelling TECHNOLOGIST PROVIDED HISTORY: pain, swelling FINDINGS: The bone mineralization is within normal limits. The ankle mortise is stable. No acute fractures or dislocations are seen. There is no soft tissue swelling. Dario Reyna MD - 02/27/2023 EXAMINATION: THREE XRAY VIEWS OF THE LEFT ANKLE 02/27/2023 11:46 am COMPARISON: None. HISTORY: ORDERING SYSTEM PROVIDED HISTORY: pain, swelling TECHNOLOGIST PROVIDED HISTORY: pain, swelling FINDINGS: The bone mineralization is within normal limits. The ankle mortise is stable. No acute fractures or dislocations are seen. There is no soft tissue swelling. IMPRESSION: 1. No acute osseous abnormality involving the left ankle. [employer] Phone: Radiology Study observation (narrative) [employer] Phone: XR ANKLE LEFT (MIN 3 VIEWS)O rdered By: Dario William on 02-27-2023 [employer] Phone: PAP ACOG PANEL 2: 30 to 65on 01-19-2023 . . Normal [facility] Comment on above: Result Comment: Perf ormed at: WB Performed By: #### [id number] #### [facility] [address] [place] [address] Dr. Claire Mayes Age Gdln ACOG Testing 30-[address] [facility] Comment on above: Performed By: #### [id number] #### [facility] [address] [address] [address] Claire Mayes DIAGNOSIS: Comment Normal [facility] Comment on above: Result Comment: NEGA TIVE FOR INTRAEPITHELIAL LESION OR MALIGNANCY. Performed at: WB Performed By: #### [id number] #### [facility] [address] [address] [address] Claire Mayes HPV Aptima Negative Normal Negative [facility] Comment on above: Result Comment: This nucleic acid amplification test detects fourteen high-risk HPV types (16,18,31,33,35,39,45,51,52,56,58,59,66,68) without differentiation. Performed at: =G Performed By: #### [id number] #### [facility] [address] [place] [address] Dr. Claire Mayes HPV Genotype Reflex Comment Normal [facility] Comment on above: Result Comment: Crit eria not met, HPV Genotype not performed. Performed at: WB Performed By: #### [id number] #### [facility] [address] [place] [address] Dr. Claire Mayes Methodology: Comment Normal [facility] Comment on above: Result Comment: This liquid based ThinPrep(R) pap test was screened with the use of an image guided system. Performed at: WB Performed By: #### [id number] #### [facility] [facility] [address] [place] [address] Dr. Claire Mayes Note: Comment Normal [facility] Comment on above: Result Comment: The Pap smear is a screening test designed to aid in the detection of premalignant and malignant conditions of the uterine cervix. It is not a diagnostic procedure and should not be used as the sole means of detecting cervical cancer. Both false-positive and false-negative reports do occur. . Performed at: WB Performed By: #### [id number] #### [facility] [address] [place] [address] Dr. Claire Mayes Performed by: Comment Normal [facility] Comment on above: Result Comment: Sherlyn Wright, Retail Visual Merchandiser (ASCP) Performed at: WB Performed By: #### [id number] #### [facility] [address] [place] [address] Dr. Claire Mayes Specimen adequacy: Comment Normal [facility] Comment on above: Result Comment: Sati sfactory for evaluation. No endocervical component is identified. Performed at: WB Performed By: #### [id number] #### [facility] [address] [place] [address] Dr. Claire Mayes CBC with Diffon 09-22-2022 Abs. Basophil 0.03 k/uL Normal 0.00-0.20 [facility] Comment on above: Performed By: #### L IP, CDP, CP #### [address] [place], [place] [id number] Administrative Program Specialist: Jesse Curry MD Abs.Imm.Granulocy te 0.04 k/uL Normal 0.00-0.30 [facility] Comment on above: Performed By: #### L IP, CDP, CP #### [address] [place], [facility] Administrative Program Specialist: Jesse Curry MD Abs.Neutrophil (Seg) 12.54 k/uL High 1.50-8.10 [facility] Comment on above: Performed By: #### L IP, CDP, CP #### [address] [place] [id number] Administrative Program Specialist: Jesse Curry MD Basophils/100 WBC (Bld) 0 % Normal 0-2 [facility] Comment on above: Performed By: #### L IP, CDP, CP #### [address] [place], [facility] Administrative Program Specialist: Jesse Curry MD Eosinophils (Bld) [#/Vol] 0.16 10*3/uL Normal 0.00-0.44 [facility] Comment on above: Performed By: #### L IP, CDP, CP #### [address] [place], [facility] Administrative Program Specialist: Jesse Curry MD Eosinophils/100 WBC (Bld) 1 % Normal 1-4 [facility] Comment on above: Performed By: #### L IP, CDP, CP #### [address] [place], [facility] Administrative Program Specialist: Jesse Curry MD Erythrocyte distribution width (RBC) [Ratio] 13.6 % Normal 11.8-14.4 [facility] Comment on above: Performed By: #### L IP, CDP, CP #### [address] [place], [facility] Administrative Program Specialist: Jesse Curry MD Hematocrit (Bld) [Volume fraction] 46.4 % Normal 36.3-47.1 [facility] Comment on above: Performed By: #### L IP, CDP, CP #### [facility] [address] [place], [place] [id number] Administrative Program Specialist: Jesse Curry MD Hemoglobin (Bld) [Mass/Vol] 15.6 g/dL High 11.9-15.1 [facility] Comment on above: Performed By: #### L IP, CDP, CP #### [address] [place], [place] [id number] Administrative Program Specialist: Jesse Curry MD Immature granulocytes/100 WBC (Bld) 0 % Normal 0 [facility] Comment on above: Performed By: #### L IP, CDP, CP #### [facility] [address] [place] [address] Dr. [place], [place] [id number] Administrative Program Specialist: Jesse Curry MD Lymphocytes (Bld) [#/Vol] 0.98 10*3/uL Low 1.10-3.70 [facility] Comment on above: Performed By: #### L IP CDP, CP #### [address] [place], [place] [id number] Administrative Program Specialist: Jesse Curry MD Lymphocytes/100 WBC (Bld) 7 % Low 24-43 [facility] Comment on above: Performed By: #### L IP, CDP, CP #### [facility] [address] [place] [address] Dr. [place], [place] [id number] Administrative Program Specialist: Jesse Curry MD MCH (RBC) [Entitic mass] 30.4 pg Normal 25.2-33.5 [facility] Comment on above: Performed By: #### L IP, CDP, CP #### [facility] [address] [place] [address] Dr. [place], [place] [id number] Administrative Program Specialist: Jesse Curry MD MCHC (RBC) [Mass/Vol] 33.6 g/dL Normal 28.4-34.8 [facility] Comment on above: Performed By: #### L BJ BUCK, CP #### [facility] [address] [place], [place] [id number] Administrative Program Specialist: Jesse Curry MD MCV (RBC) [Entitic vol] 90.3 fL Normal 82.6-102.9 [facility] Comment on above: Performed By: #### L IP CDP, CP #### [address] [place] [address] Administrative Program Specialist: Jesse Curry MD Monocytes (Bld) [#/Vol] 0.58 10*3/uL Normal 0.10-1.20 [facility] Comment on above: Performed By: #### L BJ BUCK, CP #### [address] [place], [facility] Administrative Program Specialist: Jesse Curry MD Monocytes/100 WBC (Bld) 4 % Normal 3-12 [facility] Comment on above: Performed By: #### L BJ BUCK, CP #### [address] [place], [place] [id number] Administrative Program Specialist: Jesse Curry MD Neutrophil (Seg) 88 % High 36-65 [facility] Comment on above: Performed By: #### L BJ BUCK, CP #### [address] [place], [place] [id number] Administrative Program Specialist: Jesse Curry MD NRBC Automated 0.0 per 100 WBC Normal 0.0 [facility] Comment on above: Performed By: #### L BJ BUCK, CP #### [address] [place], [place] [id number] Administrative Program Specialist: Jesse Curry MD Platelet mean volume (Bld) [Entitic vol] 9.9 fL Normal 8.1-13.5 [facility] Comment on above: Performed By: #### L IP CDP, CP #### [facility] [address] [place], [place] [id number] Administrative Program Specialist: Jesse Curry MD Platelets (Bld) [#/Vol] 299 10*3/uL Normal 138-453 [facility] Comment on above: Performed By: #### L IP CDP, CP #### [facility] [address] [place], [place] 6771083 Administrative Program Specialist: Jesse Curry MD RBC (Bld) [#/Vol] 5.14 10*6/uL High 3.95-5.11 [facility] Comment on above: Performed By: #### L CIELO CDP, CP #### [address] [place], [place] [id number] Administrative Program Specialist: Jesse Curry MD WBC (Bld) [#/Vol] 14.3 10*3/uL High 3.5-11.3 [facility] Comment on above: Performed By: #### L CIELO CDP, CP #### [address] [place], [facility] Administrative Program Specialist: Jesse Curry MD CT ABDOMEN PELVIS W IV CONTR Monica 09-22-2022 CT ABDOMEN PELVIS W IV CONTRAST EXAMINATION: CT OF THE ABDOMEN AND PELVIS WITH CONTRAST 09/22/2022 5:19 am TECHNIQUE: CT of the abdomen and pelvis was performed with the administration of intravenous contrast. Multiplanar reformatted images are provided for review. Automated exposure control, iterative reconstruction, and/or weight based adjustment of the mA/kV was utilized to reduce the radiation dose to as low as reasonably achievable. COMPARISON: None. HISTORY: ORDERING SYSTEM PROVIDED HISTORY: ruq abdominal pain FINDINGS: Lower Chest: The heart is nonenlarged. No pericardial effusion. The visualized lung bases are clear. Organs: Liver is normal in size without evidence of focal liver lesion.. Gallbladder is nondistended and without evidence of radiopaque stone.The intrahepatic and extrahepatic ducts are nondilated. Pancreas appears unremarkable without evidence of ductal dilatation or masses.. Adrenals are unremarkable. Spleen is normal in size. No renal calculi or hydronephrosis. Vasculature is unremarkable. GI/Bowel: The stomach is unremarkable.No evidence of bowel obstruction. There is suggestion of small bowel wall thickening involving the proximal jejunum (series 2, images 64 through 72). Moderate colonic stool burden. Appendix is normal. Pelvis: The urinary bladder appears normal without abnormal wall thickening.No pelvic masses. Peritoneum/Retroperitoneum :There is no free or loculated fluid collection, no free intraperitoneal air.No abdominopelvic lymphadenopathy is present. Bones and abdominal wall: No suspicious osseous lesions are identified. The abdominal wall soft tissues appear normal. IMPRESSION: Suggestion of small bowel wall thickening involving the proximal jejunum raising the concern for underlying infectious/inflammatory process, potentially reflecting collapsed bowel. No evidence of bowel obstruction, free intraperitoneal air or abdominopelvic lymphadenopathy. Interpreted by: Miguel A Maldonado DO Signed by: Miguel A Maldonado DO 09/22/22 Final result Normal [facility] Comp Metabolic Profon 2021 Albumin [Mass/Vol] 4.7 g/dL Normal 3.5-5.2 [facility] Comment on above: Performed By: #### L CIELO CDP, CP #### [facility] [address] [place] [address] [place] [address] Administrative Program Specialist: Jesse Curry MD Albumin/Glob Ratio 2.0 Normal 1.0-2.5 [facility] Comment on above: Performed By: #### L CIELO CDP, CP #### [facility] [address] [place] [address] [place] [address] Administrative Program Specialist: Jesse Curry MD Alkaline Phos 77 U/L Normal 35-104 [facility] Comment on above: Performed By: #### L CIELO CDP, CP #### [address] [place] [address] Administrative Program Specialist: Jesse Curry MD ALT [Catalytic activity/Vol] 10 U/L Normal 5-33 [facility] Comment on above: Performed By: #### L IP, CDP, CP #### [facility] [address] [place] [address] Dr. [place], [place] [id number] Administrative Program Specialist: Jesse Curry MD Anion gap [Moles/Vol] 12 mmol/L Normal 9-17 [facility] Comment on above: Performed By: #### L IP, CDP, CP #### [facility] [address] [place], [place] [id number] Administrative Program Specialist: Jesse Curry MD AST [Catalytic activity/Vol] 14 U/L Normal <32 [facility] Comment on above: Performed By: #### L IP, CDP, CP #### [facility] [address] [place], [place] 6502483 Administrative Program Specialist: Jesse Curry MD Bilirubin [Mass/Vol] 0.6 mg/dL Normal 0.3-1.2 [facility] Comment on above: Performed By: #### L IP, CDP, CP #### [facility] [address] [place] [address] Dr. [place], [place] [id number] Administrative Program Specialist: Jesse Curry MD BUN/CRE Ratio 31 High 9-20 [facility] Comment on above: Performed By: #### L IP, CDP, CP #### [address] [place], [place] [id number] Administrative Program Specialist: Jesse Curry MD Calcium [Mass/Vol] 9.8 mg/dL Normal 8.6-10.4 [facility] Comment on above: Performed By: #### L IP, CDP, CP #### [facility] [address] [place] [address] Dr. [place], [place] [id number] Administrative Program Specialist: Jesse Curry MD Chloride [Moles/Vol] 104 mmol/L Normal 98-107 [facility] Comment on above: Performed By: #### L IP, CDP, CP #### [facility] [address] [place], [place] [id number] Administrative Program Specialist: Jesse Curry MD CO2 [Moles/Vol] 22 mmol/L Normal 20-31 [facility] Comment on above: Performed By: #### L IP, CDP, CP #### [facility] [address] [place] [address] Administrative Program Specialist: Jesse Curry MD Creatinine [Mass/Vol] 0.85 mg/dL Normal 0.50-0.90 [facility] Comment on above: Performed By: #### L IP, CDP, CP #### [facility] [address] [place] [address] Administrative Program Specialist: Jesse Curry MD GFR/1.73 sq M.predicted among non-blacks MDRD (S/P/Bld) [Vol rate/Area] mL/min/{1.73_m2} Normal >60 [facility] Comment on above: Result Comment: Effective Aug 17, 2022 These results are not intended for use in patients <18 years of age. eGFR results are calculated without a race factor using the 2020 CKD-EPI equation. Careful clinical correlation is recommended, particularly when comparing to results calculated using previous equations. The CKD-EPI equation is less accurate in patients with extremes of muscle mass, extra-renal metabolism of creatine, excessive creatine ingestion, or following therapy that affects renal tubular secretion. Performed By: #### L CIELO CDP, CP #### [facility] [address] [place] [address] Administrative Program Specialist: Jesse Curry MD Glucose [Mass/Vol] 109 mg/dL High 70-99 [facility] Comment on above: Performed By: #### L IP, CDP, CP #### [facility] [address] [place] [address] Administrative Program Specialist: Jesse Curry MD Potassium [Moles/Vol] 4.0 mmol/L Normal 3.7-5.3 [facility] Comment on above: Performed By: #### L IP, CDP, CP #### [facility] [address] [place] [address] Administrative Program Specialist: Jesse Curry MD Protein [Mass/Vol] 7.1 g/dL Normal 6.4-8.3 [facility] Comment on above: Performed By: #### L BJ BUCK, CP #### [facility] [address] [place] [address] Administrative Program Specialist: Jesse Curry MD Sodium [Moles/Vol] 138 mmol/L Normal 135-144 [facility] Comment on above: Performed By: #### L IP CDP, CP #### [facility] [address] [place] [address] Administrative Program Specialist: Jesse Curry MD Urea nitrogen [Mass/Vol] 26 mg/dL High 6-20 [facility] Comment on above: Performed By: #### L BJ BUCK, CP #### [facility] [address] [place] [address] Administrative Program Specialist: Jesse Curry MD HCG, ,Urineon 09-22 Beta HCG ( test) Ql (U) Negative Normal NEG [facility] Comment on above: Result Comment: Spec imens with hCG levels near the threshold of the test (25 mIU/mL) may give a negative or indeterminate result. In such cases, another test should be performed with a new specimen in 48-72 hours. If early is suspected clinically in this setting, correlation with quantitative serum b-hCG level is suggested. [facility] has confirmed the use of plasma for this test. This has not been cleared or approved by the [place]. Food and Drug Administration. The FDA has determined that such clearance is not necessary. Performed By: #### U HCG #### [facility] [address] [place] [address] Administrative Program Specialist: Jesse Curry MD Lactic Acidon 09-22-2022 Lactate [Moles/Vol] 1.8 mmol/L Normal 0.5-2.2 [facility] Comment on above: Performed By: #### L ACTIC #### [facility] [address] [place] [address] Administrative Program Specialist: Jesse Curry MD Lipaseon 09-22-2022 Lipase [Catalytic activity/Vol] 39 U/L Normal 13-60 [facility] Comment on above: Performed By: #### L IP, CDP, CP #### [facility] [address] [place], [place] 1400383 Administrative Program Specialist: Jesse Curry MD UA w/Reflex Cultureon 2021 Bilirubin, SemiQt,Ur Negative Normal NEG [facility] Comment on above: Performed By: #### U MICAO, UAX #### [facility] [address] [place], [facility] Administrative Program Specialist: Jesse Curry MD Blood, Urine Negative Normal NEG [facility] Comment on above: Performed By: #### U MICAO, UAX #### [facility] [address] [place], [facility] Administrative Program Specialist: Jesse Curry MD Clarity (U) Clear Normal CLEAR [facility] Comment on above: Performed By: #### U MICAO, UAX #### [facility] [address] [place] [address] Dr. [place], [place] [id number] Administrative Program Specialist: Jesse Curry MD Color (U) Yellow Normal YEL [facility] Comment on above: Performed By: #### U MICAO, UAX #### [facility] [address] [place], [facility] Administrative Program Specialist: Jesse Curry MD Glucose Ql (U) Negative Normal NEG [facility] Comment on above: Performed By: #### U MICAO, UAX #### [facility] [address] [place], [place] [id number] Administrative Program Specialist: Jesse Curry MD Ketones Ql (U) Negative Normal NEG [facility] Comment on above: Performed By: #### U MICAO, UAX #### [facility] [address] [place] [address] Dr. [place], [place] [id number] Administrative Program Specialist: Jesse Curry MD Leukocyte esterase Test strip Ql (U) Negative Normal NEG [facility] Comment on above: Performed By: #### U MICAO, UAX #### [address] [place], [place] [id number] Administrative Program Specialist: Jesse Curry MD Nitrite,Ur Negative Normal NEG [facility] Comment on above: Performed By: #### U MICAO, UAX #### [address] [place], [facility] Administrative Program Specialist: Jesse Curry MD PH,Ur 8.0 Normal 5.0-9.0 [facility] Comment on above: Performed By: #### U MICAO, UAX #### [address] [place], [facility] Administrative Program Specialist: Jesse Curry MD Protein Ql (U) Negative Normal NEG [facility] Comment on above: Performed By: #### U MICAO, UAX #### [address] [place], [facility] Administrative Program Specialist: Jesse Curry MD Spec. [place],Ur 1.020 Normal 1.010-1.020 [facility] Comment on above: Performed By: #### U MICAO, UAX #### [address] [place], [facility] Administrative Program Specialist: Jesse Curry MD Urobilinogen,Ur Normal Normal NORM [facility] Comment on above: Performed By: #### U MICAO, UAX #### [address] [place], [facility] Administrative Program Specialist: Jesse Curry MD Urinalysis,Microon 2 Bacteria TRACE Abnormal NONE [facility] Comment on above: Performed By: #### U MICAO, UAX #### [facility] [address] [place], [place] [id number] Administrative Program Specialist: Jesse Curry MD Epithelial cells LM Ql (Urine sed) 0 TO 2 Normal 0-25 [facility] Comment on above: Performed By: #### U MICAO, UAX #### [facility] [address] [place], [place] [id number] Administrative Program Specialist: Jesse Curry MD Urine RBC's None Normal 0-2 [facility] Comment on above: Performed By: #### U MICAO, UAX #### [facility] [address] [place] [address] Administrative Program Specialist: Jesse Curry MD Urine WBC's 0 TO 2 Normal 0-5 [facility] Comment on above: Performed By: #### U MICAO, UAX #### [facility] [address] [place] [address] Administrative Program Specialist: Jesse Curry MD CBC AUTO DIFFon 02-20-2022 BASO # 0.1 103/ul Normal 0.0-0.[address] [facility] Comment on above: Performed By: #### C BC #### [facility] [address] [place] [address] Dr. Claire Mayes Basophils/100 WBC (Bld) 0.8 % Normal 0.2-2.[address] [facility] Comment on above: Performed By: #### C BC #### [facility] [address] [place] [address] Dr. Claire Mayes EO # 0.2 103/ul Normal 0.0-0.[address] [facility] Comment on above: Performed By: #### C BC #### [facility] [address] [place] [address] Dr. Claire Mayes Eosinophils/100 WBC (Bld) 0.9 % Normal 0.9-7.[address] [facility] Comment on above: Performed By: #### C BC #### [facility] [address] [place] [address] Dr. Claire Mayes Erythrocyte distribution width (RBC) [Ratio] 15.0 % Normal 11.0-15.[address] [facility] Comment on above: Performed By: #### C BC #### [facility] [address] [place] [address] Dr. Claire Mayes Hematocrit (Bld) [Volume fraction] 31.3 % Critically low 36.0-48.[address] [facility] Comment on above: Performed By: #### C BC #### [facility] [address] [place] [address] Dr. Claire Mayes Hemoglobin (Bld) [Mass/Vol] 10.3 g/dL Critically low 12.0-16.[address] [facility] Comment on above: Performed By: #### C BC #### [facility] [address] [place] [address] Dr. Claire Mayes IG # 0.21 10e3/ul Critically high 0.00-0.03 [facility] Comment on above: Performed By: #### C BC #### [facility] [address] [place] [address] Dr. Claire Mayes IG % 1.3 % Critically high 0.0-0.5 [facility] Comment on above: Performed By: #### C BC #### [facility] [address] [place] [address] Dr. Claire Mayes LYMPH # 2.1 103/ul Normal 1.2-3.[address] [facility] Comment on above: Performed By: #### C BC #### [facility] [address] [place] [address] Dr. Claire Mayes Lymphocytes/100 WBC (Bld) 12.6 % Critically low 20.5-60.[address] [facility] Comment on above: Performed By: #### C BC #### [facility] [address] [place] [address] Dr. Claire Mayes MANUAL DIFF REQ NO Normal [facility] Comment on above: Performed By: #### C BC #### [facility] [address] [place] [address] Dr. Claire Mayes MCH (RBC) [Entitic mass] 29.8 pg Normal 26.7-34.[address] [facility] Comment on above: Performed By: #### C BC #### [facility] [address] [place] [address] Dr. Claire Mayes MCHC (RBC) [Mass/Vol] 32.9 g/dL Normal 29.9-35.[address] [facility] Comment on above: Performed By: #### C BC #### [facility] [address] [place] [address] Dr. Claire Mayes MCV (RBC) [Entitic vol] 90.5 fL Normal 81.0-99.[address] [facility] Comment on above: Performed By: #### C BC #### [facility] [address] [place] [address] Dr. Claire Mayes MONO # 0.8 103/ul Normal 0.3-0.[address] [facility] Comment on above: Performed By: #### C BC #### [facility] [address] [place] [address] Dr. Claire Mayes Monocytes/100 WBC (Bld) 5.1 % Normal 1.7-12.[address] [facility] Comment on above: Performed By: #### C BC #### [facility] [address] [place] [address] Dr. Claire Mayes NEUT # 13.2 103/ul Critically high 1.4-6.5 [facility] Comment on above: Performed By: #### C BC #### [facility] [address] [place] [address] Dr. Claire Mayes Neutrophils/100 WBC (Bld) 79.3 % Critically high 43.0-75.[address] [facility] Comment on above: Performed By: #### C BC #### [facility] [address] [place] [address] Dr. Claire Mayes Platelet mean volume (Bld) [Entitic vol] 10.4 fL Normal 9.5-13.[address] [facility] Comment on above: Performed By: #### C BC #### [facility] [address] [place] [address] Dr. Claire Mayes PLT 233 103/ul Normal 150-[address] [facility] Comment on above: Performed By: #### C BC #### [facility] [address] [place] [address] Dr. Claire Mayes RBC 3.46 106/ul Critically low 4.20-5.40 [facility] Comment on above: Performed By: #### C BC #### [facility] [address] [place] [address] Dr. Claire Mayes WBC 16.6 103/ul Critically high 4.0-11.0 [facility] Comment on above: Performed By: #### C BC #### [facility] [address] [place] [address] Dr. Claire Mayes CBC AUTO DIFFon 02-18-2022 BASO # 0.1 103/ul Normal 0.0-0.[address] [facility] Comment on above: Performed By: #### C BC #### [facility] [address] [place] [address] Dr. Claire Mayes Basophils/100 WBC (Bld) 0.7 % Normal 0.2-2.[address] [facility] Comment on above: Performed By: #### C BC #### [facility] [address] [place] [address] Dr. Claire Mayes EO # 0.2 103/ul Normal 0.0-0.[address] [facility] Comment on above: Performed By: #### C BC #### [facility] [address] [place] [address] Dr. Claire Mayes Eosinophils/100 WBC (Bld) 1.2 % Normal 0.9-7.[address] [facility] Comment on above: Performed By: #### C BC #### [facility] [address] [place] [address] Dr. Claire Mayes Erythrocyte distribution width (RBC) [Ratio] 15.0 % Normal 11.0-15.[address] [facility] Comment on above: Performed By: #### C BC #### [facility] [address] [place] [address] Dr. Claire Mayes Hematocrit (Bld) [Volume fraction] 35.1 % Critically low 36.0-48.[address] [facility] Comment on above: Performed By: #### C BC #### [facility] [address] [place] [address] Dr. Claire Mayes Hemoglobin (Bld) [Mass/Vol] 11.8 g/dL Critically low 12.0-16.[address] [facility] Comment on above: Performed By: #### C BC #### [facility] [address] [place] [address] Dr. Claire Mayes IG # 0.30 10e3/ul Critically high 0.00-0.03 [facility] Comment on above: Performed By: #### C BC #### [facility] [address] [place] [address] Dr. Claire Mayes IG % 1.9 % Critically high 0.0-0.5 [facility] Comment on above: Performed By: #### C BC #### [facility] [address] [place] [address] Dr. Claire Mayes LYMPH # 2.9 103/ul Normal 1.2-3.[address] [facility] Comment on above: Performed By: #### C BC #### [facility] [address] [place] [address] Dr. Claire Mayes Lymphocytes/100 WBC (Bld) 18.5 % Critically low 20.5-60.[address] [facility] Comment on above: Performed By: #### C BC #### [facility] [address] [place] [address] Dr. Claire Mayes MANUAL DIFF REQ NO Normal [facility] Comment on above: Performed By: #### C BC #### [facility] [address] [place] [address] Dr. Claire Mayes MCH (RBC) [Entitic mass] 30.2 pg Normal 26.7-34.[address] [facility] Comment on above: Performed By: #### C BC #### [facility] [address] [place] [address] Dr. Claire Mayes MCHC (RBC) [Mass/Vol] 33.6 g/dL Normal 29.9-35.[address] [facility] Comment on above: Performed By: #### C BC #### [facility] [address] [place] [address] Dr. Claire Mayes MCV (RBC) [Entitic vol] 89.8 fL Normal 81.0-99.[address] [facility] Comment on above: Performed By: #### C BC #### [facility] [address] [place] [address] Dr. Claire Mayes MONO # 0.7 103/ul Normal 0.3-0.[address] [facility] Comment on above: Performed By: #### C BC #### [facility] [address] [place] [address] Dr. Claire Mayes Monocytes/100 WBC (Bld) 4.7 % Normal 1.7-12.[address] [facility] Comment on above: Performed By: #### C BC #### [facility] [address] [place] [address] Dr. Claire Mayes NEUT # 11.3 103/ul Critically high 1.4-6.5 [facility] Comment on above: Performed By: #### C BC #### [facility] [address] [place] [address] Dr. Claire Mayes Neutrophils/100 WBC (Bld) 73.0 % Normal 43.0-75.[address] [facility] Comment on above: Performed By: #### C BC #### [facility] [address] [place] [address] Dr. Claire Mayes Platelet mean volume (Bld) [Entitic vol] 10.8 fL Normal 9.5-13.[address] [facility] Comment on above: Performed By: #### C BC #### [facility] [address] [place] [address] Dr. Claire Mayes PLT 233 103/ul Normal 150-[address] [facility] Comment on above: Performed By: #### C BC #### [facility] [address] [place] [address] Dr. Claire Mayes RBC 3.91 106/ul Critically low 4.20-5.40 [facility] Comment on above: Performed By: #### C BC #### [facility] [address] [address] [address] Claire Mayes WBC 15.5 103/ul Critically high 4.0-11.0 [facility] Comment on above: Performed By: #### C BC #### [facility] [address] [address] [address] Claire Mayes Covid-19 PCR ([facility])on SARS-CoV-2 (COVID-19) RNA FERDINAND+probe Ql (Unsp spec) Not detected Normal NOT DETECTED [facility] Comment on above: Result Comment: When diagnostic testing is negative, the possibility of a false negative should be considered in the context of a patient's recent exposures and the presence of clinical signs and symptoms consistent with SARS-CoV-2. This test is not yet approved or cleared by the [place] FDA. When there are no FDA-approved or cleared tests available, and other criteria are met, FDA can make tests available under an emergency access mechanism called an Emergency Use Authorization (EUA). The EUA for this test is supported by the [place] of Health and Human Service's declaration that circumstances exist to justify the emergency use of in vitro diagnostics for the detection and/or diagnosis of the virus that causes COVID-19. This EUA will remain in effect for the duration of the COVID-19 declaration justifying emergency of IVDs, unless it is terminated or revoked by the FDA (after which the test may no longer be used). Performed By: #### C VDTBH #### [facility] [address] [address] [address] Claire Mayes DRUG SCREEN RAPID (URINE)on 02-18-2022 AMP Negative Normal NEGATIVE [facility] Comment on above: Performed By: #### D RUGRPD #### [facility] [address] [place] [address] Dr. Claire Mayes BAR Negative Normal NEGATIVE [facility] Comment on above: Performed By: #### D RUGRPD #### [facility] [address] [place] [address] Dr. Claire Mayes BUP Negative Normal NEGATIVE [facility] Comment on above: Performed By: #### D RUGRPD #### [facility] [address] [place] [address] Dr. Claire Mayes BZO Negative Normal NEGATIVE [facility] Comment on above: Performed By: #### D RUGRPD #### [facility] [address] [place] [address] Dr. Claire Mayes KIT Negative Normal NEGATIVE [facility] Comment on above: Performed By: #### D RUGRPD #### [facility] [address] [place] [address] Dr. Claire Mayes CUT-OFFS SEE BELOW Normal [facility] Comment on above: Result Comment: AMP (Amphetamine): 500ng/mL, BAR (Barbituates): 200 ng/mL, BZO (Benzodiazepines): 150 ng/mL, BUP (Buprenorphine): 10 ng/mL, KIT (Cocaine): 150 ng/mL, mAMP (Methamphetamine): 500 ng/mL, MTD (Methadone): 200 ng/mL, OPI (Opiates): 100 ng/mL, OXY (Oxycodone): 100 ng/mL, PCP (Phencyclidine): 25 ng/mL, PPX (Propoxyphene): 300 ng/mL, THC (Cannabinoids): 50 ng/mL, TCA (Trycyclic Antidepressants): 300 ng/mL Performed By: #### D RUGRPD #### [facility] [address] [place] [address] Dr. Claire Mayes DRUG CUT HEADER DRUG CLASS TEST SYST EM CUT-OFF CONCENTRATIONS ARE FOLLOWS: Normal [facility] Comment on above: Performed By: #### D RUGRPD #### [facility] [address] [place] [address] Dr. Claire Mayes mAMP Negative Normal NEGATIVE [facility] Comment on above: Performed By: #### D RUGRPD #### [facility] [address] [place] [address] Dr. Claire Mayes MTD Negative Normal NEGATIVE [facility] Comment on above: Performed By: #### D RUGRPD #### [facility] [address] [place] [address] Dr. Claire Mayes OPI Negative Normal NEGATIVE [facility] Comment on above: Performed By: #### D RUGRPD #### [facility] [address] [place] [address] Dr. Claire Mayes OXY Negative Normal NEGATIVE [facility] Comment on above: Performed By: #### D RUGRPD #### [facility] [address] [place] [address] Dr. Claire Mayes PCP Negative Normal NEGATIVE [facility] Comment on above: Performed By: #### D RUGRPD #### [facility] [address] [place] [address] Dr. Claire Mayes PPX Negative Normal NEGATIVE [facility] Comment on above: Performed By: #### D RUGRPD #### [facility] [address] [place] [address] Dr. Claire Mayes TCA Negative Normal NEGATIVE [facility] Comment on above: Performed By: #### D RUGRPD #### [facility] [address] [place] [address] Dr. Claire Mayes THC Negative Normal NEGATIVE [facility] Comment on above: Performed By: #### D RUGRPD #### [facility] [address] [place] [address] Dr. Claire Mayes TYPE AND SCREENon 02-18-2022 TYPE AND SCREEN Negative Normal [facility] Comment on above: Performed By: #### T NS #### [facility] [address] [place] [address] Dr. Claire Mayes US PREG BIOPHY W NON STRESSo n 02-17-2022 US PREG BIOPHY W NON STRESS EXAMINATION: US PREG BIOPHY W NON STRESS HISTORY: Complication occurring during COMPARISON: No relevant comparison available. TECHNIQUE: Ultrasound biophysical profile was performed in the radiology department. non-reactive stress testing was performed by nursing staff in the birthing center. FINDINGS: BREATHING MOVEMENTS: 2.0 GROSS BODY MOVEMENTS: 2.0 TONE: 2.0 QUALITATIVE AMNIOTIC FLUID VOLUME: 2.0 PRESENTATION: Cephalic HEART RATE: 157.9 bpm H.B./min AMNIOTIC FLUID VOLUME: 10.3 cm cm GESTATIONAL AGE: 37 weeks 5 days CONCLUSION: Total biophysical profile score: 8.0 Electronically authenticated by: JESSE THOMAS Date: 2022-02-17 14:27 Normal [address] [facility] US PREG BIOPHY W NON STRESSo n 02-10-2022 US PREG BIOPHY W NON STRESS EXAMINATION: US PREG BIOPHY W NON STRESS HISTORY: Complication occurring during COMPARISON: Ultrasound biophysical 02/03/2022 TECHNIQUE: Ultrasound biophysical profile was performed. FINDINGS: BREATHING MOVEMENTS: 2.0 GROSS BODY MOVEMENTS: 2.0 TONE: 2.0 QUALITATIVE AMNIOTIC FLUID VOLUME: 2.0 PRESENTATION: Cephalic HEART RATE: 140.6 bpm bpm. AMNIOTIC FLUID VOLUME: 16.5 cm GESTATIONAL AGE: 36 weeks 5 days CONCLUSION: 1. Total biophysical profile score 8.0. 2. Persistent nuchal cord. Electronically authenticated by: BLU FELIPE Date: 2022-02-10 16:40 Normal [address] [facility] GROUP B STREP CULTUREon 01-14 S. agalactiae Ag Ql (Unsp spec) Culture Observations: Beta Strep called to Belgica Lange at office 02/04/22 @[address] [place] [address] Isolate 1 Streptococcus agalactiae Heavy growth of ORGANISM 1 Streptococcus agalactiae ANTIBIOTIC M.I.C RX STATUS Benzylpenicillin <=0.06 S F Ampicillin <=0.25 S F Cefotaxime <=0.12 S F Ceftriaxone <=0.12 S F Levofloxacin 0.5 S F Erythromycin 2 R F Clindamycin <=0.25 S F Linezolid <=2 S F Vancomycin 0.5 S F Tetracycline >=16 R F Normal [facility] Comment on above: Performed By: #### G BSCX #### [facility] [address] [place] [address] Dr. Claire Mayes US PREG BIOPHY W NON STRESSo n 02-03-2022 US PREG BIOPHY W NON STRESS EXAMINATION: US PREG BIOPHY W NON STRESS HISTORY: Complication occurring during COMPARISON: No relevant comparison available. TECHNIQUE: Ultrasound biophysical profile was performed in the radiology department. FINDINGS: BREATHING MOVEMENTS: 2.0 GROSS BODY MOVEMENTS: 2.0 TONE: 2.0 QUALITATIVE AMNIOTIC FLUID VOLUME: 2.0 PRESENTATION: Cephalic HEART RATE: 130.4 bpm H.B./min AMNIOTIC FLUID VOLUME: 20.0 cm cm GESTATIONAL AGE: 35 weeks 5 days CONCLUSION: Total biophysical profile score: 8.0 Electronically authenticated by: JESSE THOMAS Date: 2022-02-03 16:[address] [facility] LMPon 06-19-2021 Last menstrual period start date [id number] n 310 IVF Work Phone: [employer] - Office Visiton [employer] - Office Visit Diagnoses/Problems Assessed Irregular menses (626.4) (N92.6) Female infertility (628.9) (N97.9) Protein S deficiency (289.81) (D68.59) Occupation [employer] ED Provider Impressions 30 year-old desires to proceed with FET We reviewed IVF and discussed the following: In-vitro fertilization and embryo transfer Stimulation Protocols Oocyte retrieval, risks Cryopreservation Assessment of fertilization Embryo cleavage Statistics ICSI/ Assisted hatching Embryo transfer and preparation Risks of OHSS and multiple gestation Dropped cycles Use of control Selective reduction Number of embryos to transfer Ectopic Team of physicians Informed consent procedure Folic acid supplementation Genetic screening PGS/PGD ART Cycle Plan 1. Protocol: Stimulated FET with Letrozole 5 mg and FSH 75 Trigger plan: hCG Luteal phase support: IM P4 in Ethyl Oleate (had allergic reaction to P4 in sesame oil) Additional medications (Lovenox, neupogen, baby ASA): Lovenox 60 mg daily during stimulation -Increase to therapeutic dosing when per hematology recommendations 2. Transfer: Number of embryos to replace- 1 Trial transfer needed? no, easy transfer previously 3. Patient willing to accept blood transfusion [x ] Yes [ ] No 6. Testing to be done prior to IVF: [x ] STDs for patient and partner [x ] Imaging: [place] US, can do at [facility] [x ] Vitamin D, TSH, prolactin [ ] Update well-woman screening as clinically indicated (pap, mammogram)--should be up to date [x ] Consents [x ] Nursing consult [x ] Financial consult [x ] Consults/referrals: Hematology follow up to get updated recommendations for anti-coagulation [x ] Other considerations: Recommend stop prior to transfer [x ] Education: IVF packet to be mailed to patient Chief Complaint An interactive audio and video telecommunication system which permits real time communications between the patient (at the originating site) and provider (at the distant site) was utilized to provide this telehealth service. Verbal consent was requested and obtained from KIRAA ASHLEY on this date, 06/19/2021 03:00 PM , for a telehealth visit. Pt presents for a FUV to discuss transferring their remaining embryo. Geena GIL. Telemedicine visit due to COVID-19 pandemic. Verbal consent obtained for telemedicine visit. [email or web address] History of Present IllnessIVF Consult: Patient is a 30 year-old who presents for a FET consult OB Hx: 06/2020: IOL @ 38 weeks due to history of Protein S deficiency on Lovenox (therapeutic dosing), needed forceps during delivery. Baby did not go to NICU. Does have hip dysplasia, currently being treated with braces. , goal is to breastfeed x 1 year Currently on Lovenox 40 mg daily (previously was on 60 mg daily during fertility treatments) Indication for IVF: Ovulatory dysfunction, otherwise unexplained *Protein S deficiency -Has seen Dr. Mayes for hematology evaluation and confirmed Protein S deficiency -Has seen Dr. Guevara for MFM consult; has plan for anti-coagulation management in *Pituitary microadenoma (7 mm); history of galactorrhea -Prolactin normal, now with galactorrhea resolved--> no medications ever given -No visual changes or headaches -Repeat brain MRI 05/2019 showed no pituitary adenoma Length of infertility: 1 year currently Ovarian reserve testing: AMH: 2.07 AFC: 6 R, 5 Left Status of fallopian tubes: Bilaterally patent fallopian tubes with normal contour on HSG - images reviewed from [facility] 08/2018 Uterine Cavity Evaluation: Normal uterine cavity on HSG- images reviewed Trial transfer: Easy transfer previously Past Infertility Treatments: Prior Clomid/IUI? 4 cycles Clomid/IC, 2 cycle letrozyle IC 4 cycles of letrozole/IUI- currently on 60 mg daily with plan to change to 40 mg BID with + test IVF #1: 07/2010: Antagonist cycle with letrozole during stim, FSH 275 with low dose hCG added with angatonist start. Peak E2 1380--> Lupron co-trigger---> 15 eggs retrieved, 5 mature--> ICSI--> 4 2pn--> 2 blasts frozen (3AA and 5BB) FET#1: Tried Estrace protocol--lining 2.5 mm. Instead did Letrozole 5 mg with FSH 75 for stimulated FET--> Peak E2 1871--> IM P4--> successful IUP [employer] Hx: LMP: 05/29/21 Menstrual cycles: Have been fairly regular for the past 3 months; 30-35 days Pap smear: 2019, up to date Mammogram: None PMH/Surg Hx/Social Hx: See below Hx of Clotting disorders: Yes- Protein S deficiency Currently on Lovenox 40 mg daily Was on Lovenox 60 mg daily prior to Needs to be on therapeutic dosing when Genetic Screening Hx: [employer] Dx screen negative Partner History: Franklin Ashley 04/09/1990 SA in past year: 2.8 cc 125 mil/mL 69% motility WVS=898 million (recent IUI sample) Morph from original SA was 2.8% Active Problems Problems 16 weeks gest (more content not included)... Normal [employer] CBC AND DIFFERENTIALon 08-06 % AUTOMATED IMMATURE GRAN 0.3 % Normal 0.0 - 0.9 [facility] Comment on above: Result Comment: Graciela ture Granulocyte Count (IG) includes promyelocytes, myelocytes and metamyelocytes but does not include bands. Percent differential counts (%) should be interpreted in the context of the absolute cell counts (cells/L). Performed By: #### C BCDF #### [address] [place] [address] Basophils (Bld) [#/Vol] 0.09 10*3/uL Normal 0.00 - 0.10 [facility] Comment on above: Performed By: #### C BCDF #### [address] [place] [address] Basophils/100 WBC (Bld) 0.9 % Normal 0.0 - 2.0 [facility] Comment on above: Performed By: #### C BCDF #### [address] [place] [address] Eosinophils (Bld) [#/Vol] 0.23 10*3/uL Normal 0.00 - 0.70 [facility] Comment on above: Performed By: #### C BCDF #### [address] [place] [address] Eosinophils/100 WBC (Bld) 2.4 % Normal 0.0 - 6.0 [facility] Comment on above: Performed By: #### C BCDF #### [address] [place] [address] Erythrocyte distribution width (RBC) [Ratio] 14.3 % Normal 11.5 - 14.5 [facility] Comment on above: Performed By: #### C BCDF #### [address] [place] [address] Hematocrit (Bld) [Volume fraction] 40.4 % Normal 36.0 - 46.0 [facility] Comment on above: Performed By: #### C BCDF #### [address] [place] [address] Hemoglobin (Bld) [Mass/Vol] 12.9 g/dL Normal 12.0 - 16.0 [facility] Comment on above: Performed By: #### C BCDF #### [address] [place] [address] Lymphocytes (Bld) [#/Vol] 2.44 10*3/uL Normal 1.20 - 4.80 [facility] Comment on above: Performed By: #### C BCDF #### [address] [place] [address] Lymphocytes/100 WBC (Bld) 25.7 % Normal 13.0 - 44.0 [facility] Comment on above: Performed By: #### C BCDF #### [address] [place] [address] MCHC (RBC) [Mass/Vol] 31.9 g/dL Low 32.0 - 36.0 [facility] Comment on above: Performed By: #### C BCDF #### [address] [place] [address] MCV (RBC) [Entitic vol] 88 fL Normal 80 - 100 [facility] Comment on above: Performed By: #### C BCDF #### [address] [place] [address] Monocytes (Bld) [#/Vol] 0.55 10*3/uL Normal 0.10 - 1.00 [facility] Comment on above: Performed By: #### C BCDF #### [address] [place] [address] Monocytes/100 WBC (Bld) 5.8 % Normal 2.0 - 10.0 [facility] Comment on above: Performed By: #### C BCDF #### [address] [place] [address] Neutrophils (Bld) [#/Vol] 6.15 10*3/uL Normal 1.20 - 7.70 [facility] Comment on above: Performed By: #### C BCDF #### [address] [place] [address] Neutrophils/100 WBC (Bld) 64.9 % Normal 40.0 - 80.0 [facility] Comment on above: Performed By: #### C BCDF #### [address] [place] [address] Platelets (Bld) [#/Vol] 410 10*3/uL Normal 150 - 450 [facility] Comment on above: Performed By: #### C BCDF #### [address] [place] [address] RBC (Bld) [#/Vol] 4.58 x10E12/L Normal 4.00 - 5.20 [facility] Comment on above: Performed By: #### C BCDF #### [address] [place] [address] WBC (Bld) [#/Vol] 9.5 10*3/uL Normal 4.4 - 11.3 [facility] Comment on above: Performed By: #### C BCDF #### [address] [place] [address] [employer] - Visiton 08-06-2020 [employer] - Visit Chief Complaint The patient is being seen today for a Visit. History of Present Illness 29 yo F now 6 weeks s/p LFVD presenting for initial follow-up visit. was notable for Protein S deficiency (LMWH) and persistent asthma. Since her last office visit she reports that she has continued to recover well. She reports that her tailbone pain has resolved and she is no longer using oral analgesia or a donut. Lochia resolved and she has not had return of menstrual function. Breast feeding going well and she denies fever, breast pain/redness or other sx of mastitis. Reports normal bowel/bladder function without incontinence. Reports that her mood is stable and anxiety resolved, denies any sx of depression including SI/HI. She has not resumed sexual activity and declines contraception. Patient compliant with LMWH and has follow-up with her [employer] 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 Reports her asthma is stable. She denies constitutional, cardiopulmonary, GI or sx and ROS otherwise negative. Review of Systems Review Of Systems: General: negative for unintentional weight gain or loss, fever, chills Skin: negative for ulceration, rash, hair changes, nail changes Eyes: negative for double vision, loss of vision, itching. Ears/Nose/Throat: negative for deafness, epistaxis and frequent URI's Respiratory: negative for shortness of breath, wheezing, pleurisy Cardiovascular: negative for chest pain, pressure, palpitations Gastrointestinal: negative for abdominal pain, nausea, emesis, diarrhea Genitourinary: negative for frequency, hematuria, dysuria, flank pain, abnormal vaginal bleeding Neurologic: negative for syncope, seizures, weakness, gait problems, numbness. Musculoskeletal: negative for joint pain, joint swelling, no muscle weakness Psychiatric: negative for sleep disturbance, anxiety, depression, suicidal or homicidal ideation Vitals Vital Signs Recorded: [id number] 01:08PM Heart Rate62 Fjjyivqy050 Mfzrczehy49 Height5 ft 2 in Pcowfc840 lb BMI Lzzguhuxhe30.28 BSA Calculated1.79 Tobacco Useb) No Fall Screeninga) No falls within the last year Gravida1 Para1 Pain Scale0 Physical Exam General: Alert, oriented x 3, NAD. HEENT: Normocephalic, atraumatic, mucous membranes moist, sclerae anicteric. Thyroid: Normal size, non-tender, no nodules. CV: RRR, normal S1S2 without murmur/gallops. Pulmonary: CTAB without wheezes/rales. Abdominal: Soft, non-tender, non-distended without rebound or guarding. Extremities: Non-tender, no erythema or edema. Skin: no rash or skin changes. Psych: normal mood and affect. Provider Impressions Impression: 6 weeks s/p LFVD - recovering well Protein S deficiency - on LMWH Persistent asthma - stable Plan: Ms. Ashley has recovered well from her and LFVD. She has no sx or clinical e/o depression or mastitis. Contraceptive counseling provided. Given her underlying thrombophilia, reviewed recommendation against use of combined hormonal contraception however non-hormonal (copper IUD) or progestin-only contraception is acceptable. Today she declines hormonal contraception and desires barrier contraception (condoms). Patient plans to continue ongoing well-woman care with her current local Psychiatric Aide Instructor. She has Hematology follow-up today following our visit to discuss her anticoagulation plan for her thrombophilia. Her asthma remains clinically stable. Patient may return to routine physical activity. Reviewed she may return to our office at any point with questions. All questions answered. Ms. Ashley expressed understanding and agreement with the plan of care. King Guevara MD Signatures Electronically signed by : King Guevara MD; Aug 06 2020 2:00PM EST (Author) Normal [employer] Complete Blood Count + Diffe marc 06-27-2020 Basophils/100 WBC (Bld) 0.5 % 0.0 - 2.0 EY-INHRW-Tlrcy [address] Work Phone: Eosinophils (Bld) [#/Vol] 0.24 {x10E9/L} See Below PO-IZTID-Bgieo wn 2nd Fl Work Phone: Comment on above: Reference Range: 0.0 0 - 0.70 Eosinophils/100 WBC (Bld) 1.1 % 0.0 - 6.0 OK-YBGWU-Mscbp wn [facility] Fl Work Phone: Erythrocyte distribution width (RBC) [Ratio] 15.0 % above high threshold See Below SN-FHECU-Sanbs wn 2nd Fl Work Phone: Comment on above: Reference Range: 11. 5 - 14.5 Hematocrit (Bld) [Volume fraction] 30.0 % below low threshold See Below YO-JWBIQ-Ahgiy wn 2nd Fl Work Phone: Comment on above: Reference Range: 36. 0 - 46.0 Hemoglobin (Bld) [Mass/Vol] 9.8 g/dL below low threshold See Below CB-FJJUD-Wjvqo wn 2nd Fl Work Phone: Comment on above: Reference Range: 12. 0 - 16.0 Lymphocytes (Bld) [#/Vol] 2.25 {x10E9/L} See Below AL-DDYMC-Rjauv wn 2nd Fl Work Phone: Comment on above: Reference Range: 1.2 0 - 4.80 Lymphocytes/100 WBC (Bld) 10.4 % See Below WU-TGNHR-Utuvq wn 2nd Fl Work Phone: Comment on above: Reference Range: 13. 0 - 44.0 MCHC (RBC) [Mass/Vol] 32.7 g/dL See Below SI-OTPCH-Jjqot wn 2nd Fl Work Phone: Comment on above: Reference Range: 32. 0 - 36.0 MCV (RBC) [Entitic vol] 91 fL 80 - 100 FJ-OPLXV-Ekxnr wn 2nd Fl Work Phone: Monocytes (Bld) [#/Vol] 0.84 {x10E9/L} See Below VY-QDOQA-Ivrtu wn 2nd Fl Work Phone: Comment on above: Reference Range: 0.1 0 - 1.00 Monocytes/100 WBC (Bld) 3.9 % 2.0 - 10.0 YP-SBRKL-Akdfa wn 2nd Fl Work Phone: Neutrophils/100 WBC (Bld) 82.7 % See Below DS-MDFRN-Qemqd wn 2nd Fl Work Phone: Comment on above: Reference Range: 40. 0 - 80.0 Platelets (Bld) [#/Vol] 225 {x10E9/L} 150 - 450 ZW-SRTTG-Thdvn wn 2nd Fl Work Phone: RBC (Bld) [#/Vol] 3.31 {x10E12/L} below low threshold See Below NO-JTVNS-Voqdg wn 2nd Fl Work Phone: Comment on above: Reference Range: 4.0 0 - 5.20 WBC (Bld) [#/Vol] 0.0 {/100_WBC} 0.0-0.0 MG- OBGYN-[address] Work Phone: WBC (Bld) [#/Vol] 21.6 {x10E9/L} above high threshold 4.4 - 11.3 KL-ZKUXN-Siiwy wn 2nd Fl Work Phone: Complete Blood Count + Differential 0.11 {x10E9/L} above high threshold See Below QT-ZRMHW-Scsci wn 2nd Fl Work Phone: Comment on above: Reference Range: 0.0 0 - 0.10 Complete Blood Count + Differential 1.4 % above high threshold 0.0 - 0.9 SR-VXOQI-Ihvun[address] Work Phone: Comment on above: Immature Granulocyte Count (IG) includes promyelocytes, myelocytes and metamyelocytes but does not include bands. Percent differential counts (%) should be interpreted in the context of the absolute cell counts (cells/L). Complete Blood Count + Differential 17.85 {x10E9/L} above high threshold See Below RL-ZSRXE-Lrdiz wn 2nd Fl Work Phone: Comment on above: Reference Range: 1.2 0 - 7.70 Hematologyon 06-26-2020 Hematocrit (Bld) [Volume fraction] 30.5 % below low threshold See Below FW-EEWEH-Hctyz wn 2nd Fl Work Phone: Comment on above: Reference Range: 36. 0 - 46.0 Hemoglobin (Bld) [Mass/Vol] 10.7 g/dL below low threshold See Below WG-SRTQD-Isrvc wn 2nd Fl Work Phone: Comment on above: Reference Range: 12. 0 - 16.0 MCV (RBC) [Entitic vol] 84 fL 80 - 100 UI-LIALF-Byuws wn 2nd Fl Work Phone: Platelets (Bld) [#/Vol] 258 {x10E9/L} 150 - 450 MD-BXEJT-Qmcwc wn 2nd Fl Work Phone: RBC (Bld) [#/Vol] 3.62 {x10E12/L} below low threshold See Below KK-PEZEW-Ycsej wn 2nd Fl Work Phone: Comment on above: Reference Range: 4.0 0 - 5.20 WBC (Bld) [#/Vol] 0.0 {/100_WBC} 0.0-0.0 MG- OBGYN-Midto wn 2nd Fl Work Phone: WBC (Bld) [#/Vol] 35.7 {x10E9/L} above high threshold 4.4 - 11.3 AA-BACJV-Yhbvd wn 2nd Fl Work Phone: Otheron 06-26-2020 Erythrocyte distribution width (RBC) [Ratio] 14.6 % above high threshold See Below ZN-YBYIJ-Auadc wn 2nd Fl Work Phone: Comment on above: Reference Range: 11. 5 - 14.5 MCHC (RBC) [Mass/Vol] 35.1 g/dL See Below YJ-LPHRS-Uqdvk wn 2nd Fl Work Phone: Comment on above: Reference Range: 32. 0 - 36.0 Name KIARA ASHLEY Pathologist: CELINE APONTEate of Procedure: 06/26/2020Date Received: 06/26/2020Date Reported 06/27/2020Submitting Physician: ESMER BULLOCK MD PHDLocation: [phone] Copy To/Referring/Attending:ELISABETH GUEVARA MD Other External # FINAL DIAGNOSISA. PLACENTA:-- MATURE PLACENTA (420 G).-- FINDINGS CONSISTENT WITH HIGH GRADE VASCULAR MALPERFUSION, SEGMENTALTYPE: RECENT NON-OCCLUSIVE THROMBUS FORMATION, CHORIONIC PLATE VESSEL. STEM VESSEL OBLITERATION. SMALL AND LARGE FOCI OF AVASCULAR VILLI AND VILLOUS STROMAL-VASCULARKARYORRHEX IS.-- ACUTE CHORIOAMNIONITIS WITH UMBILICAL PHLEBITIS AND INFLAMMATORYRESPONSE IN CHORIONIC PLATE VESSELS.-- FOCAL LOW GRADE CHRONIC VILLITIS WITH ASSOCIATED PERIVILLOUS FIBRINDEPOSITION. Electronically Signed Out By ALEX ODELL MD/Marika the signature on this report, the individual or group listed as making theFinal Interpretation/Diagnosis certifies that they have reviewed this case. Clinical History:Gestational age: 38.2Ob index: G 1, Full term 0, Willian 0, Ab 0, Lvg 0Maternal history: IVF, asthma, thrombophiliaBaby weight: 2910 gApgars: 9 at 1 minute, 9 at 5 minutesSpecific questions: Maternal tacy otherSpecimens Submitted As:A: PLACENTA Gross Description:Received fresh, labeled with the patient's name and hospital number, with anaccompanying placental record sheet, is a placenta. The placental membranes aretranslucent and complete. The membrane insertion is marginal. The point ofmembrane rupture is 4.5 cm from the nearest margin. The umbilical cord ispale-yellow, 39.7 cm in total length, and inserts in the placenta 3.0 cm fromthe margin. On cut section, the cord has 3 vessels, and measures 0.9 x 0.7 cm.The placenta is discoid, 18 x 16.5 x 2.5 cm, and weighs 420.3 g. The fetalsurface is blue-red and translucent. The maternal surface is complete. The cutsurface is dark red and spongy. Multiple mae-white firm lesions are identifiedon the maternal surface, measuring up to 3.5 cm, located 1.0 cm from themargin. Purchasing Intern sections are submitted in 5 cassettes.AXQ/LMPSummary of Cassettes:Specimen Label SiteA 1 umbilical cord sections 2 membrane rolls 3 placental parenchyma, umbilical cord insertion site 4 placental parenchyma 5 placental parenchyma, lesionaxq/06/26/2020 UT-ARHJE-Wcezg wn [facility] Fl Work Phone: Coronavirus 2019 RNA by PCR, Symptomaticon 06-25-2020 Coronavirus 2019 RNA by PCR, Symptomatic NOT DETECTED See Below [address] Work Phone: Comment on above: SOURCE: Nasal, Nasop haryngealReference Range: Not DetectedThis assay is designed to detect the RdRp gene of SARS-CoV-2 via nucleic acid amplification. A Not Detected result does not preclude COVID-19 infection since the adequacy of sample collection and/or low viral burden may result in presence of viral nucleic acids below the clinical sensitivity of this test method. Fact sheet for providers: www.fda.gov/media/270996/downloadFact sheet for patients: www.Tracab.gov/Immy/075739/downloadThis test has received FDA Emergency Use Authorization (EUA) and has been verified by [facility] ([facility]). This test is only authorized for the duration of time that circumstances exist to justify the authorization of the emergency use of in vitro diagnostic tests for the detection of SARS-CoV-2 virus and/or diagnosis of COVID-19 infection under section 564(b)(1) of the Act, 21 U.S.C. 360bbb-3(b)(1), unless the authorization is terminated or revoked sooner. [facility] is certified under CLIA-88 as qualified to perform high complexity testing. Testing is performed in the [facility] laboratories located at [address] [place] [address]. Hematologyon 06-25-2020 ABO group Nom (Bld) A [address] Work Phone: Blood group antibody screen Ql Negative [address] Work Phone: Hematocrit (Bld) [Volume fraction] 34.7 % below low threshold See Below [address] Work Phone: Comment on above: Reference Range: 36. 0 - 46.0 Hemoglobin (Bld) [Mass/Vol] 11.6 g/dL below low threshold See Below MN-SUROS-Ycibb[address] Work Phone: Comment on above: Reference Range: 12. 0 - 16.0 MCV (RBC) [Entitic vol] 90 fL 80 - 100 WW-OCEMM-Shxqx wn 2nd Fl Work Phone: Platelets (Bld) [#/Vol] 268 {x10E9/L} 150 - 450 HJ-AYQDY-Ftthq wn 2nd Fl Work Phone: RBC (Bld) [#/Vol] 3.85 {x10E12/L} below low threshold See Below WG-QVORW-Bjhle wn 2nd Fl Work Phone: Comment on above: Reference Range: 4.0 0 - 5.20 Rh immune globulin screen (Bld) [Interp] Positive ZI-GCIXS-Hcddc wn 2nd Fl Work Phone: WBC (Bld) [#/Vol] 0.0 {/100_WBC} 0.0-0.0 MG- OBGYN-[address] Work Phone: WBC (Bld) [#/Vol] 15.5 {x10E9/L} above high threshold 4.4 - 11.3 PF-ZYXLV-Pfiwb wn 2nd Fl Work Phone: Otheron 06-25-2020 Erythrocyte distribution width (RBC) [Ratio] 14.4 % See Below IO-WYHAD-Algvl wn 2nd Fl Work Phone: Comment on above: Reference Range: 11. 5 - 14.5 MCHC (RBC) [Mass/Vol] 33.4 g/dL See Below SA-SJCIO-Ebqji wn 2nd Fl Work Phone: Comment on above: Reference Range: 32. 0 - 36.0 SYPHILIS SCREENING WITH REFL EXon 06-25-2020 T. pallidum IgG+IgM IA Ql (S) NONREACTIVE See Below ES-ZPVJP-Kpqms [facility] Fl Work Phone: Comment on above: SOURCE: Reference Ra nge: NONREACTIVENo significant level of Treponema pallidum antibody detected. Repeat testing in 2 to 4 weeks may be considered if early infection or incubating syphilis infection is suspected. Imm/Pathon 06-07-2020 Bacteria identified Aer cx Nom (Genital specimen) PATIENT: KIARA ASHLEY [place] [facility] [place]ILL#: [id number] : 89 AGE: SEX: F ORDERED BY: PARAS GUEVARA: VAGINAL COLLECTED: 06/07/20 09:36ANTIBIOTICS AT ADRIENNE.: RECEIVED : 06/08/20 07:27SITE: VAGINAL R E S U L T S GROUP B STREP SCREEN PRELIM 06/09/20 08:35 CULTURE IN PROGRESS. FG-QHBBR-HWC [address] Work Phone: Bacteria identified Aer cx Nom (Genital specimen) PATIENT: KIARA ASHLEY [place] [facility] BILL#: [id number] : 89 AGE: SEX: F ORDERED BY: PARAS GUEVARA: VAGINAL COLLECTED: 06/07/20 09:36ANTIBIOTICS AT ADRIENNE.: RECEIVED : 06/08/20 07:27SITE: VAGINAL R E S U L T S GROUP B STREP SCREEN FINAL 06/10/20 11:54 NEGATIVE FOR GROUP B BETA STREP. XU-XYVOU-Fhsmi wn 2nd Fl Work Phone: Otheron 06-07-2020 Interpreted by: ELÍAS TREVIÑO06/07/20 09:33Indication======== Growth for Suspect Problem with Growth, Conceived via Assisted ReproductiveTechnology, Asthma, Class I Obesity (BMI 30-34.9) History====== General HistorySmoking: noHeight 157 cmHeight (ft) 5 ftHeight (in) 2 inPrevious OutcomesGravida 1Para 0 Maternal Assessment = Height 157 cmHeight (ft) 5 ftHeight (in) 2 inWeight 74 kgWeight (lb) 164 lbWeight gain 0 kgWeight gain (lb) 0 lbBMI 30.00 kg/m?Physical ExamInitial weight (lb) 164 lbIVF DetailsDonation: donation of one's own eggsDate of egg collection: 08/14/2019Mat. age 28 yrs ========= Hester . Number of fetuses: 1 Dating====== Conception: IVF Embryo TransferEmbryo transfer on: 10/21/2019IVF / ET 5 dGA by IVF / ET 35 w + 4 dEDD by IVF / ET: 07/08/2020Ultrasound examination on: 06/07/2020GA by U/S based upon: AC, BPD, Femur, HCGA by U/S 35 w + 4 dEDD by U/S: 07/08/2020Assigned: based on the IVF / ET date, selected on 12/25/2019Assigned GA 35 w + 4 dAssigned LOLLY: 07/08/2020Pregnancy length 280 d Growth Overview Exam date GA BPD (mm) HC (mm) AC (mm) FL(mm) HL (mm) EFW (g)01/23/2020 16w 1d 33.8 63% 121.3 31% 104.1 59% 21.1 52% 22.4 78% 153 54%02/14/2020 19w 2d 42.8 36% 156.9 14% 146.2 67% 30.2 45% 29.9 55% 301 62%04/24/2020 29w 2d 73.7 47% 266.4 12% 265.7 83% 55.7 36% 1,524 69%06/07/2020 35w 4d 88.5 62% 315.9 17% 306.7 31% 70.9 65% 2,677 45% Impression========= Follow up ultrasound performed for growth and well-being in a complicated by IVF,asthma, 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 -Normal interval growth-No malformations were identified on a limited survey-[facility] 06/22 The patient is aware of the above information.Thank you for allowing us to participate in the care of your patient. Follow-up======== Weekly NSTs recommended and growth in 3 weeks. General Evaluation Cardiac activity present. FHR 152 bpm. movements visualized.Presentation cephalic.Placenta Placental site: anterior, No Previa Seen.Umbilical cord Cord vessels: 3 vessel cord.Amniotic fluid Amount of AF: normal amount. MVP 6.8 cm. MINE 19.9 cm. Q1 6.8 cm, Q2 4.2 cm, Q3 3.9cm, Q4 5.0 cm. Biometry StandardBPD 88.5 mm35w 5d 62% Hadlock OFD 108.9 mm 34% INTERGROWTH-21st HC 315.9 mm35w 3d 17% Hadlock Cerebellum tr 47.1 mm35w 4d 40% Hill AC 306.7 mm34w 4d 31% Hadlock Femur 70.9 mm36w 2d 65% Hadlock HC / AC 1.03 EFW 2,677 g35w 3d 45% Hadlock EFW (lb) 5 lbEFW (oz) 14 ozEFW by: Hadlock (BPD-AC-FL)ExtendedVp 2.2 mmHead / Face / NeckCephalic index 0.81 52% Nicolaides Extremities / Bony StrucFL / BPD 0.80 FL / HC 0.22 FL / AC 0.23 Other StructuresFHR 152 bpm Anatomy Cranium: NormalLateral ventricles: NormalMidline falx: NormalCavum septi pellucidi: NormalCerebellum: NormalCisterna magna: NormalHead / NeckRt lateral ventricle: NormalLt lateral ventricle: NormalThalami: NormalCerebellar lobes: Normal4-chamber view: suboptimalHeart / ThoraxSitus: NormalCardiac axis: NormalCardiac size: NormalCardiac rhythm: NormalDiaphragm: NormalStomach: NormalKidneys: NormalBladder: visualizedAbdomenStomach: correct situsRt kidney: NormalLt kidney: NormalLarge bowel: NormalWants to know gender: no Biophysical Profile 2: breathing movements2: Gross body movements2: tone2: Amniotic fluid volume8/8 Biophysical profile score Maternal Structures Uterus / CervixUterus: VisualizedCervix: Not visualizedOvaries / Tubes / AdnexaRt ovary: NormalLt ovary: Normal Method====== Transabdominal ultrasound examination. View: Suboptimal view: limited by late gestational ageElectronically signed by: RILEY TREVIÑO 06/07/20 09:33 Normal JQ-ZBMDV-DSN [address] [place] Work Phone: Comment on above: ORDER REVISED TO A O B FOLLOW UP OR REPEAT SCAN BY RADIOLOGIST; Original Order Number: [id number] CBC AND DIFFERENTIALon 04-24 % AUTOMATED IMMATURE GRAN 1.9 % High 0.0 - 0.9 [facility] Comment on above: Result Comment: Graciela ture Granulocyte Count (IG) includes promyelocytes, myelocytes and metamyelocytes but does not include bands. Percent differential counts (%) should be interpreted in the context of the absolute cell counts (cells/L). Performed By: #### C BCDF #### [address] [place] [address] Basophils (Bld) [#/Vol] 0.08 10*3/uL Normal 0.00 - 0.10 [facility] Comment on above: Performed By: #### C BCDF #### [address] [place] [address] Basophils/100 WBC (Bld) 0.5 % Normal 0.0 - 2.0 [facility] Comment on above: Performed By: #### C BCDF #### [address] [place] [address] Eosinophils (Bld) [#/Vol] 0.22 10*3/uL Normal 0.00 - 0.70 [facility] Comment on above: Performed By: #### C BCDF #### [address] [place] [address] Eosinophils/100 WBC (Bld) 1.5 % Normal 0.0 - 6.0 [facility] Comment on above: Performed By: #### C BCDF #### [address] [place] [address] Erythrocyte distribution width (RBC) [Ratio] 14.0 % Normal 11.5 - 14.5 [facility] Comment on above: Performed By: #### C BCDF #### [address] [place] [address] Hematocrit (Bld) [Volume fraction] 35.6 % Low 36.0 - 46.0 [facility] Comment on above: Performed By: #### C BCDF #### [address] [place] [address] Hemoglobin (Bld) [Mass/Vol] 11.8 g/dL Low 12.0 - 16.0 [facility] Comment on above: Performed By: #### C BCDF #### [address] [place] [address] Lymphocytes (Bld) [#/Vol] 2.38 10*3/uL Normal 1.20 - 4.80 [facility] Comment on above: Performed By: #### C BCDF #### [address] [place] [address] Lymphocytes/100 WBC (Bld) 16.0 % Normal 13.0 - 44.0 [facility] Comment on above: Performed By: #### C BCDF #### [address] [place] [address] MCHC (RBC) [Mass/Vol] 33.1 g/dL Normal 32.0 - 36.0 [facility] Comment on above: Performed By: #### C BCDF #### [address] [place] [address] MCV (RBC) [Entitic vol] 92 fL Normal 80 - 100 [facility] Comment on above: Performed By: #### C BCDF #### [address] [place] [address] Monocytes (Bld) [#/Vol] 0.74 10*3/uL Normal 0.10 - 1.00 [facility] Comment on above: Performed By: #### C BCDF #### [address] [place] [address] Monocytes/100 WBC (Bld) 5.0 % Normal 2.0 - 10.0 [facility] Comment on above: Performed By: #### C BCDF #### [address] [place] [address] Neutrophils (Bld) [#/Vol] 11.17 10*3/uL High 1.20 - 7.70 [facility] Comment on above: Performed By: #### C BCDF #### [address] [place] [address] Neutrophils/100 WBC (Bld) 75.1 % Normal 40.0 - 80.0 [facility] Comment on above: Performed By: #### C BCDF #### [address] [place] [address] Platelets (Bld) [#/Vol] 285 10*3/uL Normal 150 - 450 [facility] Comment on above: Performed By: #### C BCDF #### [address] [place] [address] RBC (Bld) [#/Vol] 3.89 x10E12/L Low 4.00 - 5.20 [facility] Comment on above: Performed By: #### C BCDF #### [address] [place] [address] WBC (Bld) [#/Vol] 14.9 10*3/uL High 4.4 - 11.3 [facility] Comment on above: Performed By: #### C BCDF #### [address] [place] [address] COMPREHENSIVE PANELon 2019 ALP [Catalytic activity/Vol] 79 U/L Normal 33 - 110 [facility] Comment on above: Performed By: #### C MP #### [address] [place] [address] [facility] [address] [facility] [place] [address] ALT [Catalytic activity/Vol] 7 U/L Normal 7 - 45 [facility] Comment on above: Result Comment: Melida ents treated with Sulfasalazine may generate falsely decreased results for ALT. Performed By: #### C MP #### [address] [place] [address] [place] [address] AST [Catalytic activity/Vol] 13 U/L Normal 9 - 39 [facility] Comment on above: Performed By: #### C MP #### [address] [place] [address] [place] [address] Bilirubin [Mass/Vol] 0.3 mg/dL Normal 0.0 - 1.2 [facility] Comment on above: Performed By: #### C MP #### [address] [place] [address] [place] [address] Protein [Mass/Vol] 5.9 g/dL Low 6.4 - 8.2 [facility] Comment on above: Performed By: #### C MP #### [address] [place] [address] [place] [address] Anion gap [Moles/Vol] 12 mmol/L Normal 10 - 20 [facility] Comment on above: Performed By: #### C MP #### [address] [place] [address] [place] [address] Chloride [Moles/Vol] 106 mmol/L Normal 98 - 107 [facility] Comment on above: Performed By: #### C MP #### [address] [place] [address] [place] [address] Potassium [Moles/Vol] 3.7 mmol/L Normal 3.5 - 5.3 [facility] Comment on above: Performed By: #### C MP #### [address] [place] [address] [place] [address] Sodium [Moles/Vol] 137 mmol/L Normal 136 - 145 [facility] Comment on above: Performed By: #### C MP #### [address] [place] [address] [place] [address] Calcium [Mass/Vol] 9.2 mg/dL Normal 8.6 - 10.3 [facility] Comment on above: Performed By: #### C MP #### [address] [place] [address] [place] [address] Glucose [Mass/Vol] 95 mg/dL Normal 74 - 99 [facility] Comment on above: Performed By: #### C MP #### [address] [place] [address] [place] [address] Urea nitrogen [Mass/Vol] 7 mg/dL Normal 6 - 23 [facility] Comment on above: Performed By: #### C MP #### [address] [place] [address] [place] [address] Albumin [Mass/Vol] 3.4 g/dL Normal 3.4 - 5.0 [facility] Comment on above: Performed By: #### C MP #### [address] [place] [address] [place] [address] Creatinine [Mass/Vol] 0.70 mg/dL Normal 0.50 - 1.05 [facility] Comment on above: Performed By: #### C MP #### [address] [place] [address] [place] [address] GFR- AM. >60 Normal >60 [facility] Comment on above: Result Comment: CALC ULATIONS OF ESTIMATED GFR ARE PERFORMED USING THE MDRD STUDY EQUATION FOR THE IDMS-TRACEABLE CREATININE METHODS. CLIN CHEM 2007;53:766-72 Performed By: #### C MP #### [address] [place] [address] [place] [address] GFR-NON AM. >60 Normal >60 [facility] Comment on above: Performed By: #### C MP #### [address] [place] [address] [place] [address] HCO3 (Bld) [Moles/Vol] 23 mmol/L Normal 21 - 32 [facility] Comment on above: Performed By: #### C MP #### [address] [place] [address] [place] [address] FERRITINon 04-24-2020 Ferritin [Mass/Vol] 8 ug/L Normal 8 - 150 [facility] Comment on above: Performed By: #### F ERRI #### [address] [place] [address] IRON + TIBCon 04-24-2020 % SATURATION 14 % Low 25 - 45 [facility] Comment on above: Performed By: #### I RONT #### [address] [address] Iron [Mass/Vol] 65 ug/dL Normal 35 - 150 [facility] Comment on above: Performed By: #### I RONT #### [address] [place] [address] TIBC 449 ug/dL High 240 - 445 [facility] Comment on above: Performed By: #### I RONT #### [address] [place] [address] Complete Blood Count + Diffe rentialon 02-10-2020 Basophils/100 WBC (Bld) 1.0 % 0.0 - 2.0 VC-GADGM-EFC 1200 [place] Work Phone: Eosinophils (Bld) [#/Vol] 0.37 {x10E9/L} See Below ZC-HZDLU-HQV 1200 [place] Work Phone: Comment on above: Reference Range: 0.0 0 - 0.70 Eosinophils/100 WBC (Bld) 3.0 % 0.0 - 6.0 ZE-PAIOY-EWX 1200 [place] Work Phone: Erythrocyte distribution width (RBC) [Ratio] 13.4 % See Below UK-ITABX-TAI 1200 [place] Work Phone: Comment on above: Reference Range: 11. 5 - 14.5 Hematocrit (Bld) [Volume fraction] 41.8 % See Below MR-NOKQC-XEG 1200 [place] Work Phone: Comment on above: Reference Range: 36. 0 - 46.0 Hemoglobin (Bld) [Mass/Vol] 13.6 g/dL See Below LA-ENLZG-TSD 1200 [place] Work Phone: Comment on above: Reference Range: 12. 0 - 16.0 Lymphocytes (Bld) [#/Vol] 2.52 {x10E9/L} See Below KV-VGKUE-EZN 1200 [place] Work Phone: Comment on above: Reference Range: 1.2 0 - 4.80 Lymphocytes/100 WBC (Bld) 20.2 % See Below UM-YIAWE-JOG 1200 [place] Work Phone: Comment on above: Reference Range: 13. 0 - 44.0 MCHC (RBC) [Mass/Vol] 32.5 g/dL See Below WG-VPJOY-OTZ 1200 [place] Work Phone: Comment on above: Reference Range: 32. 0 - 36.0 MCV (RBC) [Entitic vol] 95 fL 80 - 100 SA-GDBKT-PGP 1200 [place] Work Phone: Monocytes (Bld) [#/Vol] 0.58 {x10E9/L} See Below RM-KSTGD-PMI 1200 [place] Work Phone: Comment on above: Reference Range: 0.1 0 - 1.00 Monocytes/100 WBC (Bld) 4.6 % 2.0 - 10.0 US-IYWAB-WSB 1200 [place] Work Phone: Neutrophils/100 WBC (Bld) 70.6 % See Below DV-PFEOR-TEB 1200 [place] Work Phone: Comment on above: Reference Range: 40. 0 - 80.0 Platelets (Bld) [#/Vol] 372 {x10E9/L} 150 - 450 QC-LWZOG-UDX 1200 [place] Work Phone: RBC (Bld) [#/Vol] 4.40 {x10E12/L} See Below MG -OBGYN-MAC 1200 [place] Work Phone: Comment on above: Reference Range: 4.0 0 - 5.20 WBC (Bld) [#/Vol] 0.0 {/100_WBC} 0.0-0.0 MG- OBGYN-MAC 1200 [place] Work Phone: WBC (Bld) [#/Vol] 12.7 {x10E9/L} above high threshold 4.4 - 11.3 PE-IYBNT-HYM 1200 [place] Work Phone: Comment on above: SOURCE: Complete Blood Count + Differential 8.81 {x10E9/L} above high threshold See Below YK-NFTIO-ETT 1200 [place] Work Phone: Comment on above: Reference Range: 1.2 0 - 7.70 Complete Blood Count + Differential 0.6 % 0.0 - 0.9 OL-WHYXF-ZZK 1200 [place] Work Phone: Comment on above: Percent differential counts (%) should be interpreted in the context of the absolute cell counts (cells/L). Complete Blood Count + Differential 0.13 {x10E9/L} above high threshold See Below IK-CBFZQ-WHH 1200 [place] Work Phone: Comment on above: Reference Range: 0.0 0 - 0.10 Cult, Urineon 12-25-2019 Bacteria identified Cx Nom (U) PATIENT: KIARA ASHLEY LOCATION: [id number] BILL#: [id number] : 89 AGE: SEX: F ORDERED BY: PARAS GUEVARA: URINE COLLECTED: 12/25/19 09:41ANTIBIOTICS AT [facility].: RECEIVED : 12/25/19 17:06SITE: Clean Catch/Voided R E S U L T S URINE CULTURE,BACTERIAL FINAL 12/26/19 10:21 NO SIGNIFICANT GROWTH. BO-JWPVK-LFE 1200 [place] Work Phone: Hematologyon 12-25-2019 ABO group Nom (Bld) A YJ-NUQPG-AUT 1200 [place] Work Phone: Blood group antibody screen Ql Negative NC-OHSJW-QMZ 1200 [place] Work Phone: Rh immune globulin screen (Bld) [Interp] Positive HA-XVCTJ-UFM 1200 [place] Work Phone: Hepatitis B Surface Antigeno n 12-25-2019 Hepatitis B Surface Antigen NONREACTIVE See Below ZA-QFLHT-RJX 1200 [place] Work Phone: Comment on above: SOURCE: Reference Ra nge: NONREACTIVE Patients receiving more than 5 mg/day of biotin may have interference in test results. A sample should be taken no sooner than eight hours after previous dose. Contact the testing laboratory for additional information. SOURCE: Reference Ra nge: NONREACTIVE HIV Ag/Ab screen is performed using the Siemens Advia Centaur HIV Ag/Ab Combo assay which detects the presence of HIV p24 antigen as well as antibodies to HIV-1 (Group M and O) and HIV-2. Hepatitis C Antibody Teston 12-25-2019 Hepatitis C Antibody Test NON-REACTIVE See Below XR-HGVVD-BFW 1200 [place] Work Phone: Comment on above: SOURCE: Reference Ra nge: NONREACTIVE Patients receiving more than 5 mg/day of biotin may have interference in test results. A sample should be taken no sooner than eight hours after previous dose. Contact the testing laboratory for additional information. Metabolic Panelon 12-25-2019 ALP [Catalytic activity/Vol] 67 U/L 33 - 110 BR-CQVXB-WNW 1200 [place] Work Phone: Anion gap [Moles/Vol] 15 mmol/L 10 - 20 JW-UWHMS-WDE 1200 [place] Work Phone: Bilirubin [Mass/Vol] 0.3 mg/dL 0.0 - 1.2 RL-QFTGH-AKM 1200 [place] Work Phone: Calcium [Mass/Vol] 9.6 mg/dL 8.6 - 10.6 OU-IOPES-SIR 1200 [place] Work Phone: Chloride [Moles/Vol] 104 mmol/L 98 - 107 RN-YUXHP-LQI 1200 [place] Work Phone: CO2 [Moles/Vol] 21 mmol/L 21 - 32 MG-OBGYN- MAC 1200 [place] Work Phone: Creatinine [Mass/Vol] 0.69 mg/dL See Below ZY-VOTAF-HQQ 1200 [place] Work Phone: Comment on above: Reference Range: 0.5 0 - 1.05 Glucose [Mass/Vol] 83 mg/dL 74 - 99 AZ-WNTLO-IJR 1200 [place] Work Phone: Comment on above: SOURCE: Potassium [Moles/Vol] 4.1 mmol/L 3.5 - 5.3 XP-VNGFO-MWZ 1200 [place] Work Phone: Protein [Mass/Vol] 6.2 g/dL below low threshold 6.4 - 8.2 KB-IEAXK-MUG 1200 [place] Work Phone: Sodium [Moles/Vol] 136 mmol/L 136 - 145 GR-EAPXG-TMT 1200 [place] Work Phone: Urea nitrogen [Mass/Vol] 9 mg/dL 6 - 23 FY-CXPQW-IPU 1200 [place] Work Phone: Otheron 12-25-2019 Albumin BCP dye [Mass/Vol] 3.9 g/dL 3.4 - 5.0 RN-OGQES-MOZ 1200 [place] Work Phone: ALT With P-5'-P [Catalytic activity/Vol] 8 U/L 7 - 45 FJ-VBIGK-DSS 1200 [place] Work Phone: Comment on above: Patients treated wit h Sulfasalazine may generate falsely decreased results for ALT. AST With P-5'-P [Catalytic activity/Vol] 11 U/L 9 - 39 LL-LBPEG-DSN 1200 [place] Work Phone: NONE IM-UOISX-AXC 1200 [place] Work Phone: >60 >60 TK-QLCOV-CZS 1200 [place] Work Phone: Comment on above: CALCULATIONS OF MARÍA MATED GFR ARE PERFORMED USING THE MDRD STUDY EQUATION FOR THE IDMS-TRACEABLE CREATININE METHODS. CLIN CHEM 2007;53:766-72 SYPHILIS SCREENING WITH REFL EXon 12-25-2019 T. pallidum IgG+IgM IA Ql (S) NONREACTIVE See Below SX-IMXUK-IWO 1200 [place] Work Phone: Comment on above: SOURCE: Reference Ra nge: NONREACTIVENo significant level of Treponema pallidum antibody detected. Repeat testing in 2 to 4 weeks may be considered if early infection or incubating syphilis infection is suspected. CBC AND DIFFERENTIALon 11-21 % AUTOMATED IMMATURE GRAN 0.9 % Normal 0.0 - 0.9 [facility] Comment on above: Result Comment: Perc ent differential counts (%) should be interpreted in the context of the absolute cell counts (cells/L). Performed By: #### C BCDF #### [address] [place] [address] Basophils (Bld) [#/Vol] 0.16 10*3/uL High 0.00 - 0.10 [facility] Comment on above: Performed By: #### C BCDF #### [address] [place] [address] Basophils/100 WBC (Bld) 1.2 % Normal 0.0 - 2.0 [facility] Comment on above: Performed By: #### C BCDF #### [address] [place] [address] Eosinophils (Bld) [#/Vol] 0.80 10*3/uL High 0.00 - 0.70 [facility] Comment on above: Performed By: #### C BCDF #### [address] [place] [address] Eosinophils/100 WBC (Bld) 5.8 % Normal 0.0 - 6.0 [facility] Comment on above: Performed By: #### C BCDF #### [address] [place] [address] Erythrocyte distribution width (RBC) [Ratio] 13.6 % Normal 11.5 - 14.5 [facility] Comment on above: Performed By: #### C BCDF #### [address] [place] [address] Hematocrit (Bld) [Volume fraction] 39.4 % Normal 36.0 - 46.0 [facility] Comment on above: Performed By: #### C BCDF #### [address] [place] [address] Hemoglobin (Bld) [Mass/Vol] 13.0 g/dL Normal 12.0 - 16.0 [facility] Comment on above: Performed By: #### C BCDF #### [address] [place] [address] Lymphocytes (Bld) [#/Vol] 2.24 10*3/uL Normal 1.20 - 4.80 [facility] Comment on above: Performed By: #### C BCDF #### [address] [place] [address] Lymphocytes/100 WBC (Bld) 16.3 % Normal 13.0 - 44.0 [facility] Comment on above: Performed By: #### C BCDF #### [address] [place] [address] MCHC (RBC) [Mass/Vol] 33.0 g/dL Normal 32.0 - 36.0 [facility] Comment on above: Performed By: #### C BCDF #### [address] [place] [address] MCV (RBC) [Entitic vol] 94 fL Normal 80 - 100 [facility] Comment on above: Performed By: #### C BCDF #### [address] [place] [address] Monocytes (Bld) [#/Vol] 0.83 10*3/uL Normal 0.10 - 1.00 [facility] Comment on above: Performed By: #### C BCDF #### [address] [place] [address] Monocytes/100 WBC (Bld) 6.0 % Normal 2.0 - 10.0 [facility] Comment on above: Performed By: #### C BCDF #### [address] [place] [address] Neutrophils (Bld) [#/Vol] 9.60 10*3/uL High 1.20 - 7.70 [facility] Comment on above: Performed By: #### C BCDF #### [address] [place] [address] Neutrophils/100 WBC (Bld) 69.8 % Normal 40.0 - 80.0 [facility] Comment on above: Performed By: #### C BCDF #### [address] [place] [address] Platelets (Bld) [#/Vol] 380 10*3/uL Normal 150 - 450 [facility] Comment on above: Performed By: #### C BCDF #### [address] [place] [address] RBC (Bld) [#/Vol] 4.21 x10E12/L Normal 4.00 - 5.20 [facility] Comment on above: Performed By: #### C BCDF #### [address] [place] [address] WBC (Bld) [#/Vol] 13.8 10*3/uL High 4.4 - 11.3 [facility] Comment on above: Performed By: #### C BCDF #### [address] [place] [address] Complete Blood Count + Diffe fannytialon 11-14-2019 Basophils (Bld) [#/Vol] 0.05 {x10E9/L} See Below [facility] Comment on above: Reference Range: 0.0 0 - 0.10 Basophils/100 WBC (Bld) 0.4 % 0.0 - 2.0 MP-Reproductiv e Endocrinology- [place] Work Phone: Eosinophils (Bld) [#/Vol] 0.89 {x10E9/L} above high threshold See Below MP-Reproductiv e Endocrinology- [place] Work Phone: Comment on above: Reference Range: 0.0 0 - 0.70 Eosinophils/100 WBC (Bld) 7.3 % 0.0 - 6.0 MP-Reproductiv e Endocrinology- [place] Work Phone: Erythrocyte distribution width (RBC) [Ratio] 13.9 % See Below MP-Reproductiv e Endocrinology- [place] Work Phone: Comment on above: Reference Range: 11. 5 - 14.5 Hematocrit (Bld) [Volume fraction] 39.4 % See Below MP-Reproductiv e Endocrinology- [place] Work Phone: Comment on above: Reference Range: 36. 0 - 46.0 Hemoglobin (Bld) [Mass/Vol] 12.8 g/dL See Below MP-Reproductiv e Endocrinology- [place] Work Phone: Comment on above: Reference Range: 12. 0 - 16.0 Lymphocytes (Bld) [#/Vol] 2.13 {x10E9/L} See Below MP-Reproductiv e Endocrinology- [place] Work Phone: Comment on above: Reference Range: 1.2 0 - 4.80 Lymphocytes/100 WBC (Bld) 17.5 % See Below MP-Reproductiv e Endocrinology- [place] Work Phone: Comment on above: Reference Range: 13. 0 - 44.0 MCHC (RBC) [Mass/Vol] 32.5 g/dL See Below MP-Reproductiv e Endocrinology- [place] Work Phone: Comment on above: Reference Range: 32. 0 - 36.0 MCV (RBC) [Entitic vol] 95 fL 80 - 100 MP-Reproductiv e Endocrinology- [place] Work Phone: Monocytes (Bld) [#/Vol] 0.60 {x10E9/L} See Below MP-Reproductiv e Endocrinology- [place] Work Phone: Comment on above: Reference Range: 0.1 0 - 1.00 Monocytes/100 WBC (Bld) 4.9 % 2.0 - 10.0 MP-Reproductiv e Endocrinology- [place] Work Phone: Neutrophils/100 WBC (Bld) 69.4 % See Below MP-Reproductiv e Endocrinology- [place] Work Phone: Comment on above: Reference Range: 40. 0 - 80.0 Platelets (Bld) [#/Vol] 423 {x10E9/L} 150 - 450 MP-Reproductiv e Endocrinology- [place] Work Phone: RBC (Bld) [#/Vol] 4.15 {x10E12/L} See Below MP -Reproductiv e Endocrinology- [place] Work Phone: Comment on above: Reference Range: 4.0 0 - 5.20 WBC (Bld) [#/Vol] 12.2 {x10E9/L} above high threshold 4.4 - 11.3 MP-Reproductiv e Endocrinology- [place] Work Phone: WBC (Bld) [#/Vol] 0.0 {/100_WBC} 0.0-0.0 MP- Reproductiv e Endocrinology- [place] Work Phone: Complete Blood Count + Differential 0.5 % 0.0 - 0.9 MP-Reproductiv e Endocrinology- [place] Work Phone: Comment on above: Percent differential counts (%) should be interpreted in the context of the absolute cell counts (cells/L). Complete Blood Count + Differential 8.42 {x10E9/L} above high threshold See Below MP-Reproductiv e Endocrinology- [place] Work Phone: Comment on above: Reference Range: 1.2 0 - 7.70 Metabolic Panelon 11-14-2019 ALP [Catalytic activity/Vol] 82 U/L 33 - 110 MP-Reproductiv e Endocrinology- [place] Work Phone: Anion gap [Moles/Vol] 19 mmol/L 10 - 20 MP-Reproductiv e Endocrinology- [place] Work Phone: Bilirubin [Mass/Vol] 0.4 mg/dL 0.0 - 1.2 MP-Reproductiv e Endocrinology- [place] Work Phone: Calcium [Mass/Vol] 9.5 mg/dL 8.6 - 10.6 MP-Reproductiv e Endocrinology- [place] Work Phone: Chloride [Moles/Vol] 100 mmol/L 98 - 107 MP-Reproductiv e Endocrinology- [place] Work Phone: CO2 [Moles/Vol] 20 mmol/L below low threshold 21 - 32 MP-Reproductiv e Endocrinology- [place] Work Phone: Creatinine [Mass/Vol] 0.80 mg/dL See Below MP-Reproductiv e Endocrinology- [place] Work Phone: Comment on above: Reference Range: 0.5 0 - 1.05 Glucose [Mass/Vol] 86 mg/dL 74 - 99 MP-Reproductiv e Endocrinology- [place] Work Phone: Potassium [Moles/Vol] 4.3 mmol/L 3.5 - 5.3 MP-Reproductiv e Endocrinology- [place] Work Phone: Protein [Mass/Vol] 5.8 g/dL below low threshold 6.4 - 8.2 MP-Reproductiv e Endocrinology- [place] 206 Work Phone: Sodium [Moles/Vol] 135 mmol/L below low threshold 136 - 145 MP-Reproductiv e Endocrinology- [place] Work Phone: Urea nitrogen [Mass/Vol] 10 mg/dL 6 - 23 MP-Reproductiv e Endocrinology- [place] Work Phone: Otheron 11-14-2019 Albumin BCP dye [Mass/Vol] 3.5 g/dL 3.4 - 5.0 MP-Reproductiv e [facility] Work Phone: ALT With P-5'-P [Catalytic activity/Vol] 17 U/L 7 - 45 MP-Reproductiv e [facility] Work Phone: Comment on above: Patients treated wit h Sulfasalazine may generate falsely decreased results for ALT. AST With P-5'-P [Catalytic activity/Vol] 22 U/L 9 - 39 MP-Reproductiv e [facility] Work Phone: >60 >60 MP-Reproductiv e [facility] Work Phone: Comment on above: CALCULATIONS OF MARÍA MATED GFR ARE PERFORMED USING THE MDRD STUDY EQUATION FOR THE IDMS-TRACEABLE CREATININE METHODS. CLIN CHEM 2007;53:766-72 CBCon 11-09-2019 Erythrocyte distribution width (RBC) [Ratio] 13.7 % See Below AA-WEYHB-Epmzl n 310 [facility] Work Phone: Comment on above: Performed By: #### L H #### [facility] [address] [place] [address] Reference Range: 11. 5 - 14.5 Hematocrit (Bld) [Volume fraction] 41.9 % See Below QU-DKLSJ-Hzlxu n 310 [facility] Work Phone: Comment on above: Performed By: #### L H #### [facility] [address] [place] [address] Reference Range: 36. 0 - 46.0 Hemoglobin (Bld) [Mass/Vol] 14.0 g/dL See Below BL-NEFCU-Xqirh n 310 [facility] Work Phone: Comment on above: Performed By: #### L H #### [facility] [address] [place] [address] Reference Range: 12. 0 - 16.0 MCHC (RBC) [Mass/Vol] 33.4 g/dL See Below DM-NVNNJ-Ayjqs n 310 [facility] Work Phone: Comment on above: Performed By: #### L H #### [facility] [address] [place] [address] Reference Range: 32. 0 - 36.0 MCV (RBC) [Entitic vol] 94 fL 80 - 100 BC-IXITJ-Wavha n 310 [facility] Work Phone: Comment on above: Performed By: #### L H #### [facility] [address] [place] [id number] Platelets (Bld) [#/Vol] 411 10*3/uL Normal 150 - 450 [facility] Comment on above: Performed By: #### L H #### [facility] [address] [place] [id number] RBC (Bld) [#/Vol] 4.44 x10E12/L Normal 4.00 - 5.20 [facility] Comment on above: Performed By: #### L H #### [facility] [address] [place] [id number] WBC (Bld) [#/Vol] 12.4 10*3/uL High 4.4 - 11.3 [facility] Comment on above: Performed By: #### L H #### [facility] [address] [place] [id number] COMPREHENSIVE PANELon 2018 Albumin [Mass/Vol] 3.8 g/dL Normal 3.4 - 5.0 [facility] Comment on above: Performed By: #### L H #### [facility] [address] [place] [id number] ALP [Catalytic activity/Vol] 51 U/L 33 - 110 IB-LDEYT-Naojn n 310 [facility] Work Phone: Comment on above: Performed By: #### L H #### [facility] [address] [place] [id number] ALT [Catalytic activity/Vol] 12 U/L Normal 7 - 45 [facility] Comment on above: Result Comment: Melida ents treated with Sulfasalazine may generate falsely decreased results for ALT. Performed By: #### L H #### [facility] [address] [place] [id number] Anion gap [Moles/Vol] 13 mmol/L 10 - 20 BO-ZIJDU-Eznid n 310 [facility] Work Phone: Comment on above: Performed By: #### L H #### [facility] [address] [place] [id number] AST [Catalytic activity/Vol] 12 U/L Normal 9 - 39 [facility] Comment on above: Performed By: #### L H #### [facility] [address] [place] [address] Bilirubin [Mass/Vol] 0.4 mg/dL 0.0 - 1.2 IZ-IOJYZ-Zpjio n 310 [facility] Work Phone: Comment on above: Performed By: #### L H #### [facility] [address] [place] [address] Calcium [Mass/Vol] 9.3 mg/dL 8.6 - 10.3 JU-SQZJH-Xpqpv n 310 [facility] Work Phone: Comment on above: Performed By: #### L H #### [facility] [address] [place] [address] Chloride [Moles/Vol] 102 mmol/L 98 - 107 EZ-GUNQG-Ptrcp n 310 [facility] Work Phone: Comment on above: Performed By: #### L H #### [facility] [address] [place] [address] Creatinine [Mass/Vol] 0.89 mg/dL See Below EK-QGKFC-Jdqkt n 310 [facility] Work Phone: Comment on above: Performed By: #### L H #### [facility] [address] [place] [id number] Reference Range: 0.5 0 - 1.05 GFR- AM. >60 Normal >60 [facility] Comment on above: Result Comment: CALC ULATIONS OF ESTIMATED GFR ARE PERFORMED USING THE MDRD STUDY EQUATION FOR THE IDMS-TRACEABLE CREATININE METHODS. CLIN CHEM 2007;53:766-72 Performed By: #### L H #### [facility] [address] [place] [id number] GFR-NON AM. >60 Normal >60 [facility] Comment on above: Performed By: #### L H #### [facility] [address] [place] [address] Glucose [Mass/Vol] 74 mg/dL 74 - 99 JP-IMMTT-Abwhs n 310 [facility] Work Phone: Comment on above: Performed By: #### L H #### [facility] [address] [place] [address] HCO3 (Bld) [Moles/Vol] 25 mmol/L Normal 21 - 32 [facility] Comment on above: Performed By: #### L H #### [facility] [address] [place] [address] Potassium [Moles/Vol] 4.1 mmol/L 3.5 - 5.3 YN-JJKFU-Dvnqh n 310 [facility] Work Phone: Comment on above: Performed By: #### L H #### [facility] [address] [place] [id number] Protein [Mass/Vol] 6.0 g/dL below low threshold 6.4 - 8.2 ZM-HWYNA-Pxcxk n 310 [facility] Work Phone: Comment on above: Performed By: #### L H #### [facility] [address] [place] [address] Sodium [Moles/Vol] 136 mmol/L 136 - 145 YM-DCDSQ-Xmbha n 310 [facility] Work Phone: Comment on above: Performed By: #### L H #### [facility] [address] [place] [address] Urea nitrogen [Mass/Vol] 11 mg/dL 6 - 23 TY-LZZIQ-Gsqyn n 310 [facility] Work Phone: Comment on above: Performed By: #### L H #### [facility] [address] [place] [address] HCG, Beta Quantitativeon HCG.beta subunit Qn 7102 {mIU/mL} Abnormal AD-HAPIO-Usgmn n 310 [facility] Work Phone: Comment on above: Low-level positive H CG results can be seen in early , in yudelka- or post-menopausal females due to normal pituitary HCG production, or with analytic interference. Repeat testing in 48-72 hours can aid in assessing for as results should double in this time period. FSH measurement is recommended in yudelka- or post-menopausal females as concurrent elevation of FSH can support pituitary production as the source of the HCG elevation.. Total HCG measurement is performed using the [employer] [place] Access Immunoassay which detects intact HCG and free beta HCG subunit. This test is not indicated for use as a tumor marker. HCG testing is performed using a different test methodology at [facility] than other [facility]. Direct result comparison should only be made within the same method. REF VALUESNON FEMALE <5MALES <5 HCG,BETA-QUANTITATIVEon - HCG,BETA-QUANTITA TIVE 7102 mIU/mL [facility] Comment on above: Result Comment: Low- level positive HCG results can be seen in early , in yudelka- or post-menopausal females due to normal pituitary HCG production, or with analytic interference. Repeat testing in 48-72 hours can aid in assessing for as results should double in this time period. FSH measurement is recommended in yudelka- or post-menopausal females as concurrent elevation of FSH can support pituitary production as the source of the HCG elevation. . Total HCG measurement is performed using the [employer] [place] Access Immunoassay which detects intact HCG and free beta HCG subunit. This test is not indicated for use as a tumor marker. HCG testing is performed using a different test methodology at [facility] than other [facility]. Direct result comparison should only be made within the same method. REF VALUES NON FEMALE <5 MALES <5 Performed By: #### L H #### [facility] [address] [place] [address] Hematologyon 11-09-2019 Platelets (Bld) [#/Vol] 411 {x10E9/L} 150 - 450 CP-KUZDM-Pmzfz n 310 [facility] Work Phone: RBC (Bld) [#/Vol] 4.44 {x10E12/L} See Below MG -OBGYN-Risma n 310 [facility] Work Phone: Comment on above: Reference Range: 4.0 0 - 5.20 WBC (Bld) [#/Vol] 12.4 {x10E9/L} above high threshold 4.4 - 11.3 BC-KNXTH-Kjdta n 310 [facility] Work Phone: Metabolic Panelon 11-09-2019 CO2 [Moles/Vol] 25 mmol/L 21 - 32 MG-OBGYN- Risma n 310 [facility] Work Phone: Otheron 11-09-2019 Albumin BCP dye [Mass/Vol] 3.8 g/dL 3.4 - 5.0 ER-OVKNE-Uospd n 310 [facility] Work Phone: ALT With P-5'-P [Catalytic activity/Vol] 12 U/L 7 - 45 SR-ISYPR-Pcvpa n 310 [facility] Work Phone: Comment on above: Patients treated wit h Sulfasalazine may generate falsely decreased results for ALT. AST With P-5'-P [Catalytic activity/Vol] 12 U/L 9 - 39 MK-EZQZI-Dhbes n 310 IVF Work Phone: >60 >60 BN-XOCUF-Acnbz n 310 IVF Work Phone: Comment on above: CALCULATIONS OF MARÍA MATED GFR ARE PERFORMED USING THE MDRD STUDY EQUATION FOR THE IDMS-TRACEABLE CREATININE METHODS. CLIN CHEM 2007;53:766-72 HCG, Beta Quantitativeon HCG.beta subunit Qn 240 {mIU/mL} Abnormal MP-Reproductiv e Endocrinology- [place] Work Phone: Comment on above: Low-level positive H CG results can be seen in early , in yudelka- or post-menopausal females due to normal pituitary HCG production, or with analytic interference. Repeat testing in 48-72 hours can aid in assessing for as results should double in this time period. FSH measurement is recommended in [place]- or post-menopausal females as concurrent elevation of FSH can support pituitary production as the source of the HCG elevation.. Total HCG measurement is performed using the [employer] Access Immunoassay which detects intact HCG and free beta HCG subunit. This test is not indicated for use as a tumor marker. HCG testing is performed using a different test methodology at [facility] than other [facility]. Direct result comparison should only be made within the same method. REF VALUESNON FEMALE <5MALES <5 HCG,BETA-QUANTITATIVEon 10-15 HCG,BETA-QUANTITA TIVE 240 mIU/mL [facility] Comment on above: Result Comment: Low- level positive HCG results can be seen in early , in [place]- or post-menopausal females due to normal pituitary HCG production, or with analytic interference. Repeat testing in 48-72 hours can aid in assessing for as results should double in this time period. FSH measurement is recommended in [place]- or post-menopausal females as concurrent elevation of FSH can support pituitary production as the source of the HCG elevation. . Total HCG measurement is performed using the [employer] Access Immunoassay which detects intact HCG and free beta HCG subunit. This test is not indicated for use as a tumor marker. HCG testing is performed using a different test methodology at [facility] than other [facility]. Direct result comparison should only be made within the same method. REF VALUES NON FEMALE <5 MALES <5 Performed By: #### E STRA #### [facility] [address] [place] [address] ESTRADIOLon 10-14-2019 ESTRADIOL 1871 pg/mL Normal [facility] Comment on above: Result Comment: Estr adiol measurement is performed using the [employer] Access Immunoassay. Estradiol testing is performed using a different test methodology at [facility] than other [facility]. Direct result comparison should only be made within the same method. REF VALUES FOLLICULAR PHASE 20-144 MID CYCLE 64-357 LUTEAL PHASE 56-214 POSTMENOPAUSE < 32 PREPUBERTY < 20 MALE 10-18Y < 20 ADULT MALE < 40 Performed By: #### E STRA #### [facility] [address] [place] [address] Estradiol, Serumon 9 E2 [Mass/Vol] 1871 pg/mL MG-OBGYN-Ri sma n 310 IVF Work Phone: Comment on above: Estradiol measuremen t is performed using the [employer] Access Immunoassay. Estradiol testing is performed using a different test methodology at [facility] than other [facility]. Direct result comparison should only be made within the same method.REF VALUESFOLLICULAR PHASE 20-144MID CYCLE 64-357LUTEAL PHASE 56-214POSTMENOPAUSE < 32PREPUBERTY < 20MALE 10-18Y < 20ADULT MALE < 40 PROGESTERONEon 10-14-2019 PROGESTERONE 1.0 ng/mL Normal [facility] Comment on above: Result Comment: Prog esterone is performed using the [employer] Access Immunoassay. Progesterone testing is performed using a different test methodology at [facility] than other [facility]. Direct result comparison should only be made within the same method. REF VALUES MALE <0.2-0.8 FOLLICULAR PHASE <0.2-1.5 LUTEAL PHASE 7.4-15.4 POSTMENOPAUSAL <0.2-0.2 1ST TRIMESTER 12.0-84.0 2ND TRIMESTER 10.2-58.8 3RD TRIMESTER 46.5-160 Performed By: #### E STRA #### [facility] [address] [place] [address] Progesterone, Serumon 2018 Progesterone [Mass/Vol] 1.0 ng/mL [id number] n 310 IVF Work Phone: Comment on above: Progesterone is perf ormed using the [employer] Access Immunoassay. Progesterone testing is performed using a different test methodology at [facility] than other [facility]. Direct result comparison should only be made within the same method.REF VALUESMALE <0.2-0.8 FOLLICULAR PHASE <0.2-1.5 LUTEAL PHASE 7.4-15.4 POSTMENOPAUSAL <0.2-0.2 1ST TRIMESTER 12.0-84.0 2ND TRIMESTER 10.2-58.8 3RD TRIMESTER 46.5-160 ESTRADIOLon 10-11-2019 ESTRADIOL 284 pg/mL Normal [facility] Comment on above: Result Comment: Estr adiol measurement is performed using the [employer] [place] Access Immunoassay. Estradiol testing is performed using a different test methodology at [facility] than other [facility]. Direct result comparison should only be made within the same method. REF VALUES FOLLICULAR PHASE 20-144 MID CYCLE 64-357 LUTEAL PHASE 56-214 POSTMENOPAUSE < 32 PREPUBERTY < 20 MALE 10-18Y < 20 ADULT MALE < 40 Performed By: #### E STRA #### [facility] [address] [place] [address] Estradiol, Serumon 9 E2 [Mass/Vol] 284 pg/mL MG-OBGYN-Ri sma n 310 IVF Work Phone: Comment on above: Estradiol measuremen t is performed using the [employer] Access Immunoassay. Estradiol testing is performed using a different test methodology at [facility] than [facility]. Direct result comparison should only be made within the same method.REF VALUESFOLLICULAR PHASE 20-144MID CYCLE 64-357LUTEAL PHASE 56-214POSTMENOPAUSE < 32PREPUBERTY < 20MALE 10-18Y < 20ADULT MALE < 40 ESTRADIOLon 10-05-2019 ESTRADIOL 129 pg/mL Normal [facility] Comment on above: Result Comment: Estr adiol measurement is performed using the [employer] Access Immunoassay. Estradiol testing is performed using a different test methodology at [facility] than other [facility]. Direct result comparison should only be made within the same method. REF VALUES FOLLICULAR PHASE 20-144 MID CYCLE 64-357 LUTEAL PHASE 56-214 POSTMENOPAUSE < 32 PREPUBERTY < 20 MALE 10-18Y < 20 ADULT MALE < 40 Performed By: #### E BARBARA #### [facility] [address] [place] [address] Estradiol, Serumon 9 E2 [Mass/Vol] 129 pg/mL MG-OBGYN-Ri sma n 310 IVF Work Phone: Comment on above: Estradiol measuremen t is performed using the [employer] Access Immunoassay. Estradiol testing is performed using a different test methodology at [facility] than other [facility]. Direct result comparison should only be made within the same method.REF VALUESFOLLICULAR PHASE 20-144MID CYCLE 64-357LUTEAL PHASE 56-214POSTMENOPAUSE < 32PREPUBERTY < 20MALE 10-18Y < 20ADULT MALE < 40 PROGESTERONEon 10-05-2019 PROGESTERONE 0.2 ng/mL Normal [facility] Comment on above: Result Comment: Prog esterone is performed using the [employer] Access Immunoassay. Progesterone testing is performed using a different test methodology at [facility] than other [facility]. Direct result comparison should only be made within the same method. REF VALUES MALE <0.2-0.8 FOLLICULAR PHASE <0.2-1.5 LUTEAL PHASE 7.4-15.4 POSTMENOPAUSAL <0.2-0.2 1ST TRIMESTER 12.0-84.0 2ND TRIMESTER 10.2-58.8 3RD TRIMESTER 46.5-160 Performed By: #### E BARBARA #### [facility] [address] [place] [address] Progesterone, Serumon 2018 Progesterone [Mass/Vol] 0.2 ng/mL [id number]-Zmoiu n 310 IVF Work Phone: Comment on above: Progesterone is perf ormed using the [employer] Access Immunoassay. Progesterone testing is performed using a different test methodology at [facility] than other [facility]. Direct result comparison should only be made within the same method.REF VALUESMALE <0.2-0.8 FOLLICULAR PHASE <0.2-1.5 LUTEAL PHASE 7.4-15.4 POSTMENOPAUSAL <0.2-0.2 1ST TRIMESTER 12.0-84.0 2ND TRIMESTER 10.2-58.8 3RD TRIMESTER 46.5-160 ESTRADIOLon 10-02-2019 ESTRADIOL 357 pg/mL Normal [facility] Comment on above: Result Comment: Estr adiol measurement is performed using the [employer] Access Immunoassay. Estradiol testing is performed using a different test methodology at [facility] than other [facility]. Direct result comparison should only be made within the same method. REF VALUES FOLLICULAR PHASE 20-144 MID CYCLE 64-357 LUTEAL PHASE 56-214 POSTMENOPAUSE < 32 PREPUBERTY < 20 MALE 10-18Y < 20 ADULT MALE < 40 Performed By: #### E STRA #### [facility] [address] [place] [address] Estradiol, Serumon 9 E2 [Mass/Vol] 357 pg/mL MG-OBGYN-Cr ock er 206A IVF Work Phone: Comment on above: Estradiol measuremen t is performed using the [employer] Access Immunoassay. Estradiol testing is performed using a different test methodology at [facility] than other [facility]. Direct result comparison should only be made within the same method.REF VALUESFOLLICULAR PHASE 20-144MID CYCLE 64-357LUTEAL PHASE 56-214POSTMENOPAUSE < 32PREPUBERTY < 20MALE 10-18Y < 20ADULT MALE < 40 LUTEINIZING HORMONEon 2018 LUTEINIZING HORMONE 14.7 IU/L Normal [facility] Comment on above: Result Comment: Lute inizing Hormone [LH] is performed using the [employer] Access Immunoassay. LH testing is performed using a different test methodology at [facility] than other [facility]. Direct result comparison should only be made within the same method. REF VALUES FOLLICULAR PHASE 1.5-10.0 MID-CYCLE 13.0-72.0 LUTEAL PHASE 0.5-13.0 MENOPAUSE 15.0-65.0 PREPUBERTY 0- 3.0 CHILDREN 0- 6.0 ADULT MALE 1.0- 9.0 Performed By: #### E STRA #### [facility] [address] [place] [address] Luteinizing Hormone, Serumon 10-02-2019 Lutropin Qn 14.7 {IU/L} [id number]-Ovu ck er 206A IVF Work Phone: Comment on above: Luteinizing Hormone [LH] is performed using the [employer] Access Immunoassay. LH testing is performed using a different test methodology at [facility] than other [facility]. Direct result comparison should only be made within the same method.REF VALUESFOLLICULAR PHASE 1.5-10.0MID-CYCLE 13.0-72.0LUTEAL PHASE 0.5-13.0MENOPAUSE 15.0-65.0PREPUBERTY 0- 3.0CHILDREN 0- 6.0ADULT MALE 1.0- 9.0 PROGESTERONEon 10-02-2019 PROGESTERONE 0.1 ng/mL Normal [facility] Comment on above: Result Comment: Prog esterone is performed using the [employer] Access Immunoassay. Progesterone testing is performed using a different test methodology at [facility] than other [facility]. Direct result comparison should only be made within the same method. REF VALUES MALE <0.2-0.8 FOLLICULAR PHASE <0.2-1.5 LUTEAL PHASE 7.4-15.4 POSTMENOPAUSAL <0.2-0.2 1ST TRIMESTER 12.0-84.0 2ND TRIMESTER 10.2-58.8 3RD TRIMESTER 46.5-160 Performed By: #### E STRA #### [facility] [address] [place] [address] Progesterone, Serumon 2018 Progesterone [Mass/Vol] 0.1 ng/mL [id number]-Xwwim er 206A IVF Work Phone: Comment on above: Progesterone is perf ormed using the [employer] Access Immunoassay. Progesterone testing is performed using a different test methodology at [facility] than other [facility]. Direct result comparison should only be made within the same method.REF VALUESMALE <0.2-0.8 FOLLICULAR PHASE <0.2-1.5 LUTEAL PHASE 7.4-15.4 POSTMENOPAUSAL <0.2-0.2 1ST TRIMESTER 12.0-84.0 2ND TRIMESTER 10.2-58.8 3RD TRIMESTER 46.5-160 HCG,BETA-QUANTITATIVEon 07-17 HCG,BETA-QUANTITA TIVE 10 mIU/mL [facility] Comment on above: Result Comment: Low- level positive HCG results can be seen in early , in [place]- or post-menopausal females due to normal pituitary HCG production, or with analytic interference. Repeat testing in 48-72 hours can aid in assessing for as results should double in this time period. FSH measurement is recommended in [place]- or post-menopausal females as concurrent elevation of FSH can support pituitary production as the source of the HCG elevation. . Total HCG measurement is performed using the [employer] Access Immunoassay which detects intact HCG and free beta HCG subunit. This test is not indicated for use as a tumor marker. HCG testing is performed using a different test methodology at [facility] than [facility]. Direct result comparison should only be made within the same method. REF VALUES NON FEMALE <5 MALES <5 Performed By: #### L H #### [facility] [address] [place] [address] LUTEINIZING HORMONEon 2018 LUTEINIZING HORMONE 57.0 IU/L Normal [facility] Comment on above: Result Comment: Lute inizing Hormone [LH] is performed using the [employer] Access Immunoassay. LH testing is performed using a different test methodology at [facility] than [facility]. Direct result comparison should only be made within the same method. REF VALUES FOLLICULAR PHASE 1.5-10.0 MID-CYCLE 13.0-72.0 LUTEAL PHASE 0.5-13.0 MENOPAUSE 15.0-65.0 PREPUBERTY 0- 3.0 CHILDREN 0- 6.0 ADULT MALE 1.0- 9.0 Performed By: #### E STRA #### [facility] [address] [place] [address] PROGESTERONEon 08-13-2019 PROGESTERONE 6.7 ng/mL Normal [facility] Comment on above: Result Comment: Prog esterone is performed using the [employer] Access Immunoassay. Progesterone testing is performed using a different test methodology at [facility] than other [facility]. Direct result comparison should only be made within the same method. REF VALUES MALE <0.2-0.8 FOLLICULAR PHASE <0.2-1.5 LUTEAL PHASE 7.4-15.4 POSTMENOPAUSAL <0.2-0.2 1ST TRIMESTER 12.0-84.0 2ND TRIMESTER 10.2-58.8 3RD TRIMESTER 46.5-160 Performed By: #### L H #### [facility] [address] [place] [address] ESTRADIOLon 08-12-2019 ESTRADIOL 1380 pg/mL Normal [facility] Comment on above: Result Comment: Estr adiol measurement is performed using the [employer] Access Immunoassay. Estradiol testing is performed using a different test methodology at [facility] than other [facility]. Direct result comparison should only be made within the same method. REF VALUES FOLLICULAR PHASE 20-144 MID CYCLE 64-357 LUTEAL PHASE 56-214 POSTMENOPAUSE < 32 PREPUBERTY < 20 MALE 10-18Y < 20 ADULT MALE < 40 Performed By: #### L H #### [facility] [address] [place] [address] PROGESTERONEon 08-12-2019 PROGESTERONE 1.7 ng/mL Normal [facility] Comment on above: Result Comment: Prog esterone is performed using the [employer] Access Immunoassay. Progesterone testing is performed using a different test methodology at [facility] than other [facility]. Direct result comparison should only be made within the same method. REF VALUES MALE <0.2-0.8 FOLLICULAR PHASE <0.2-1.5 LUTEAL PHASE 7.4-15.4 POSTMENOPAUSAL <0.2-0.2 1ST TRIMESTER 12.0-84.0 2ND TRIMESTER 10.2-58.8 3RD TRIMESTER 46.5-160 Performed By: #### L H #### [facility] [address] [place] [address] ESTRADIOLon 08-11-2019 ESTRADIOL 874 pg/mL Normal [facility] Comment on above: Result Comment: Estr adiol measurement is performed using the [employer] Access Immunoassay. Estradiol testing is performed using a different test methodology at [facility] than other [facility]. Direct result comparison should only be made within the same method. REF VALUES FOLLICULAR PHASE 20-144 MID CYCLE 64-357 LUTEAL PHASE 56-214 POSTMENOPAUSE < 32 PREPUBERTY < 20 MALE 10-18Y < 20 ADULT MALE < 40 Performed By: #### L H #### [facility] [address] [place] [address] PROGESTERONEon 08-11-2019 PROGESTERONE 1.2 ng/mL Normal [facility] Comment on above: Result Comment: Prog esterone is performed using the [employer] Access Immunoassay. Progesterone testing is performed using a different test methodology at [facility] than other [facility]. Direct result comparison should only be made within the same method. REF VALUES MALE <0.2-0.8 FOLLICULAR PHASE <0.2-1.5 LUTEAL PHASE 7.4-15.4 POSTMENOPAUSAL <0.2-0.2 1ST TRIMESTER 12.0-84.0 2ND TRIMESTER 10.2-58.8 3RD TRIMESTER 46.5-160 Performed By: #### L H #### [facility] [address] [place] [address] ESTRADIOLon 08-09-2019 ESTRADIOL 385 pg/mL Normal [facility] Comment on above: Result Comment: Estr adiol measurement is performed using the [employer] Access Immunoassay. Estradiol testing is performed using a different test methodology at [facility] than other [facility]. Direct result comparison should only be made within the same method. REF VALUES FOLLICULAR PHASE 20-144 MID CYCLE 64-357 LUTEAL PHASE 56-214 POSTMENOPAUSE < 32 PREPUBERTY < 20 MALE 10-18Y < 20 ADULT MALE < 40 Performed By: #### L H #### [facility] [address] [place] [address] ESTRADIOLon 08-07-2019 ESTRADIOL 80 pg/mL Normal [facility] Comment on above: Result Comment: Estr adiol measurement is performed using the [employer] Access Immunoassay. Estradiol testing is performed using a different test methodology at [facility] than other [facility]. Direct result comparison should only be made within the same method. REF VALUES FOLLICULAR PHASE 20-144 MID CYCLE 64-357 LUTEAL PHASE 56-214 POSTMENOPAUSE < 32 PREPUBERTY < 20 MALE 10-18Y < 20 ADULT MALE < 40 Performed By: #### L H #### [facility] [address] [place] [address] ESTRADIOLon 08-04-2019 ESTRADIOL 58 pg/mL Normal [facility] Comment on above: Result Comment: Estr adiol measurement is performed using the [employer] Access Immunoassay. Estradiol testing is performed using a different test methodology at [facility] than [facility]. Direct result comparison should only be made within the same method. REF VALUES FOLLICULAR PHASE 20-144 MID CYCLE 64-357 LUTEAL PHASE 56-214 POSTMENOPAUSE < 32 PREPUBERTY < 20 MALE 10-18Y < 20 ADULT MALE < 40 Performed By: #### L H #### [facility] [address] [place] [address] ESTRADIOLon 07-07-2019 ESTRADIOL 110 pg/mL Normal [facility] Comment on above: Result Comment: Estr adiol measurement is performed using the [employer] Access Immunoassay. Estradiol testing is performed using a different test methodology at [facility] than other [facility]. Direct result comparison should only be made within the same method. REF VALUES FOLLICULAR PHASE 20-144 MID CYCLE 64-357 LUTEAL PHASE 56-214 POSTMENOPAUSE < 32 PREPUBERTY < 20 MALE 10-18Y < 20 ADULT MALE < 40 Performed By: #### L H #### [facility] [address] [place] [address] NR MRI SELLA WO/Won 05-31-20 19 NR MRI SELLA WO/W Patient Name: KIARA ASHLEY STUDY: NR MRI SELLA WO/W; 05/31/2019 2:00 pm INDICATION: History of 7 mm microadenoma 2008. COMPARISON: None. ACCESSION NUMBER(S): [id number] ORDERING CLINICIAN: SHAHLA HEALY TECHNIQUE: High resolution coronal and sagittal T1 and T2 weighted MR images of the sella were acquired. Following administration of 14 mL gadobenate (Multihance) gadolinium based contrast, high resolution post contrast axial and sagittal T1 weighted MR images of the sella were obtained. Dynamic post contrast imaging was also performed. Enhanced MR images of the brain were obtained as well. FINDINGS: There is no evidence of a sellar or suprasellar mass. The pituitary gland enhances homogenously. The pituitary infundibulum is midline. The optic chiasm is unremarkable. Bilateral cavernous sinuses demonstrate symmetric enhancement. The left internal carotid artery deviates mildly into the left side of the sella turcica The images of the brain demonstrate the cerebellar tonsils lie at the lower limits of normal extending 2-3 mm inferior to the foramen magnum; no compression of the cervicomedullary junction is noted. The tonsils have a rounded inferior margin. IMPRESSION: 1. No pituitary adenoma is noted. The cavernous segment of the left internal carotid artery deviates medially into the left side of the sella. 2. The cerebellar tonsils lie at the lower limits of normal, extending 2-3 mm below the foramen magnum. Electronically signed by: PHYSICIAN ELLEN Normal [facility] ESTRADIOLon 05-05-2019 ESTRADIOL 217 pg/mL Normal [facility] Comment on above: Result Comment: Estr adiol measurement is performed using the [employer] Access Immunoassay. Estradiol testing is performed using a different test methodology at [facility] than other [facility]. Direct result comparison should only be made within the same method. REF VALUES FOLLICULAR PHASE 20-144 MID CYCLE 64-357 LUTEAL PHASE 56-214 POSTMENOPAUSE < 32 PREPUBERTY < 20 MALE 10-18Y < 20 ADULT MALE < 40 Performed By: #### E STRA #### [facility] [address] [place] [id number] LUTEINIZING HORMONEon 2018 LUTEINIZING HORMONE 4.4 IU/L Normal [facility] Comment on above: Result Comment: Lute inizing Hormone [LH] is performed using the [employer] Access Immunoassay. LH testing is performed using a different test methodology at [facility] than other [facility]. Direct result comparison should only be made within the same method. REF VALUES FOLLICULAR PHASE 1.5-10.0 MID-CYCLE 13.0-72.0 LUTEAL PHASE 0.5-13.0 MENOPAUSE 15.0-65.0 PREPUBERTY 0- 3.0 CHILDREN 0- 6.0 ADULT MALE 1.0- 9.0 Performed By: #### L H #### [facility] [address] [place] [address] ESTRADIOLon 04-11-2019 ESTRADIOL 118 pg/mL Normal [facility] Comment on above: Result Comment: Estr adiol measurement is performed using the [employer] Access Immunoassay. Estradiol testing is performed using a different test methodology at [facility] than other [facility]. Direct result comparison should only be made within the same method. REF VALUES FOLLICULAR PHASE 20-144 MID CYCLE 64-357 LUTEAL PHASE 56-214 POSTMENOPAUSE < 32 PREPUBERTY < 20 MALE 10-18Y < 20 ADULT MALE < 40 Performed By: #### E STRA #### [facility] [address] [place] [address] LUTEINIZING HORMONEon 2018 LUTEINIZING HORMONE 7.7 IU/L Normal [facility] Comment on above: Result Comment: Lute inizing Hormone [LH] is performed using the [employer] Access Immunoassay. LH testing is performed using a different test methodology at [facility] than other [facility]. Direct result comparison should only be made within the same method. REF VALUES FOLLICULAR PHASE 1.5-10.0 MID-CYCLE 13.0-72.0 LUTEAL PHASE 0.5-13.0 MENOPAUSE 15.0-65.0 PREPUBERTY 0- 3.0 CHILDREN 0- 6.0 ADULT MALE 1.0- 9.0 Performed By: #### L H #### [facility] [address] [place] [id number] PROGESTERONEon 04-11-2019 PROGESTERONE 0.1 ng/mL Normal [facility] Comment on above: Result Comment: Prog esterone is performed using the [employer] Access Immunoassay. Progesterone testing is performed using a different test methodology at [facility] than [facility]. Direct result comparison should only be made within the same method. REF VALUES MALE <0.2-0.8 FOLLICULAR PHASE <0.2-1.5 LUTEAL PHASE 7.4-15.4 POSTMENOPAUSAL <0.2-0.2 1ST TRIMESTER 12.0-84.0 2ND TRIMESTER 10.2-58.8 3RD TRIMESTER 46.5-160 Performed By: #### P SVEN #### [facility] [address] [id number] ESTRADIOLon 03-17-2019 ESTRADIOL 120 pg/mL Normal [facility] Comment on above: Result Comment: Estr adiol measurement is performed using the Jose Revivio Access Immunoassay. Estradiol testing is performed using a different test methodology at [facility] than [facility]. Direct result comparison should only be made within the same method. REF VALUES FOLLICULAR PHASE 20-144 MID CYCLE 64-357 LUTEAL PHASE 56-214 POSTMENOPAUSE < 32 PREPUBERTY < 20 MALE 10-18Y < 20 ADULT MALE < 40 Performed By: #### E STRA #### [facility] [address] [id number] LUTEINIZING HORMONEon 2018 LUTEINIZING HORMONE 6.8 IU/L Normal [facility] Comment on above: Result Comment: Lute inizing Hormone [LH] is performed using the Jose Revivio Access Immunoassay. LH testing is performed using a different test methodology at [facility] than [facility]. Direct result comparison should only be made within the same method. REF VALUES FOLLICULAR PHASE 1.5-10.0 MID-CYCLE 13.0-72.0 LUTEAL PHASE 0.5-13.0 MENOPAUSE 15.0-65.0 PREPUBERTY 0- 3.0 CHILDREN 0- 6.0 ADULT MALE 1.0- 9.0 Performed By: #### L H #### [facility] [address] [place] [address] ESTRADIOLon 02-20-2019 ESTRADIOL 521 pg/mL Normal [facility] Comment on above: Result Comment: Estr adiol measurement is performed using the Jose [place] Access Immunoassay. Estradiol testing is performed using a different test methodology at [facility] than other [facility]. Direct result comparison should only be made within the same method. REF VALUES FOLLICULAR PHASE 20-144 MID CYCLE 64-357 LUTEAL PHASE 56-214 POSTMENOPAUSE < 32 PREPUBERTY < 20 MALE 10-18Y < 20 ADULT MALE < 40 Performed By: #### E STRA #### [facility] [address] [place] [address] LUTEINIZING HORMONEon 2018 LUTEINIZING HORMONE 3.5 IU/L Normal [facility] Comment on above: Result Comment: Lute inizing Hormone [LH] is performed using the Jose [place] Access Immunoassay. LH testing is performed using a different test methodology at [facility] than [facility]. Direct result comparison should only be made within the same method. REF VALUES FOLLICULAR PHASE 1.5-10.0 MID-CYCLE 13.0-72.0 LUTEAL PHASE 0.5-13.0 MENOPAUSE 15.0-65.0 PREPUBERTY 0- 3.0 CHILDREN 0- 6.0 ADULT MALE 1.0- 9.0 Performed By: #### L H #### [facility] [address] [place] [address] Vital Signs Date Time Vital Sign Value Performing Clinician Modesto golden 02-27-2023 11:35-0400 Body mass index (BMI) [Ratio] 29.26 kg/m2 Evelyn Perez Work Phone: [facility] 02-27-2023 11:35-0400 Body temperature 98.8 [degF] Evelyn Perez Work Phone: [facility] [email or web address] 02-27-2023 11:35-0400 Body weight 72.58 kg Evelyn Calderonrn Work Phone: [facility] 02-27-2023 11:35-0400 Diastolic blood pressure 66 mm[Hg] Evelyn Calderonrn Work Phone: [facility] [email or web address] 02-27-2023 11:35-0400 Heart rate 88 /min Evelyn Calderonrn Work Phone: [facility] [email or web address] 02-27-2023 11:35-0400 Respiratory rate 14 /min Evelyn Calderonrn Work Phone: [facility] [email or web address] 02-27-2023 11:35-0400 SaO2% (BldA) [Mass fraction] 100 % Evelyn Calderonrn Work Phone: [facility] [email or web address] 02-27-2023 11:35-0400 Systolic blood pressure 103 mm[Hg] Evelyn Calderonrn Work Phone: [facility] [email or web address] 06-19-2021 14:03-0400 Body height 157.48 cm Evelyn Calderonrn Work Phone: JB-OTTDC-Xywxbr 310 IVF Work Phone: 06-19-2021 14:03-0400 Body mass index (BMI) [Ratio] 29.26 kg/m2 Evelyn Calderonrn Work Phone: SA-FPZUG-Bptgsd 310 IVF Work Phone: 06-19-2021 14:03-0400 Body surface area Derived from formula 1.74 m2 Evelyn Calderonrn Work Phone: AC-JMBZT-Uxkkjt 310 IVF Work Phone: 06-19-2021 14:03-0400 Body weight 72.58 kg Evelyn Calderonrn Work Phone: UG-MUWJM-Ekyldr 310 IVF Work Phone: 06-19-2021 14:03-0400 1 1 Evelyn Husain Ana Work Phone: UC-SMPVZ-Fplybk 310 IVF Work Phone: Comment on above: GRAV PARA 06-19-2021 14:03-0400 0 1 Evelyn Husain Ana Work Phone: JA-GKQAP-Thtxaw 310 IVF Work Phone: Comment on above: [employer] 06-07-2020 10:41-0400 BMI (Body Mass Index) 34.93 kg/m2 King Lappen ZK-BQKSN-LRA [address] [place] Work Phone: 06-07-2020 10:41-0400 Body weight 86.64 kg King Lappen HH-GUXVZ-XTW [address] [place] Work Phone: 06-07-2020 10:41-0400 BP Diastolic 76 mm[Hg] King Lappen QN-QXKYQ-JOJ [address] [place] Work Phone: 06-07-2020 10:41-0400 BP Systolic 111 mm[Hg] King Lappen WY-XWNSK-GGU [address] [place] Work Phone: 06-07-2020 10:41-0400 BSA (Body Surface Area) 1.87 m2 King Lappen MT-SLWCG-TEP [address] [place] Work Phone: 06-07-2020 10:41-0400 Pulse (Heart Rate) 101 /min King Lappen RF-YHIMA-RPL [address] [place] Work Phone: 06-07-2020 10:41-0400 0 1 King Lappen OG-EXZFU-NTW [address] [place] Work Phone: Comment on above: Pain Scale 12-25-2019 10:58-0500 BMI (Body Mass Index) 30.18 kg/m2 King Lappen ME-WOOUK-FDP [address] [place] Work Phone: 12-25-2019 10:58-0500 Body weight 74.84 kg King Lappen NM-XQAZL-WSL [address] [place] Work Phone: 12-25-2019 10:58-0500 BP Diastolic 68 mm[Hg] King Lappen HR-SBIDT-NMD [address] [place] Work Phone: 12-25-2019 10:58-0500 BP Systolic 112 mm[Hg] King Lappen QV-YLYTO-KUJ [address] [place] Work Phone: 12-25-2019 10:58-0500 BSA (Body Surface Area) 1.76 m2 King Lappen HX-WOJPH-NCR [address] [place] Work Phone: 11-09-2019 11:28-0500 Body Temperature 98.78 [degF] Kelechi Gage SK-KJHXK-Wrohde 310 IVF Work Phone: 11-09-2019 11:28-0500 BP Diastolic 76 mm[Hg] Kelechi Gage HQ-GXNBY-Kczmgg 310 IVF Work Phone: 11-09-2019 11:28-0500 BP Systolic 112 mm[Hg] Kelechi Gage MF-RKOZV-Unuigw 310 IVF Work Phone: 11-09-2019 11:28-0500 Respiratory Rate 96 /min Kelechi Gage RQ-OOZJP-Ywsjuo 310 IVF Work Phone: Encounters Encounter Date Encounter Type Care Provider Facility Start: 01-10-2024 ambulatory Evelyn Perez MD Facility:Pulmonology & Critical Care Medicine [facility] Start: 10-05-2023 End: 10-05-2023 ambulatory SHERMAN HUNTER Not Available Start: 09-14-2023 End: 09-14-2023 ambulatory Lc Waite Facility[facility] Start: 02-27-2023 End: 02-27-2023 Emergency department patient visit EVELYN PEREZ [facility] Start: 02-27-2023 End: 02-27-2023 Emergency department patient visit Evelyn Perez Work Phone: [facility] ED Comment on above: Sprain of left ankle , unspecified ligament, initial encounter (Primary Dx) Start: 01-13-2023 End: 01-14-2023 ambulatory Zoya Skyecharo Buitrago [employer] HELPER-MEDICAL FIELD REPRESENTATIVE Facility:Pulmonology & Critical Care Medicine [facility] Start: 01-11-2023 End: 01-11-[address] RADAMES RIBEIRO . Facility:[facility] Start: 09-22-2022 End: 09-22-2022 Emergency department patient visit JAMI ROMERO [facility] Start: 03-10-[address] EVELYN PEREZ Facility:[facility]1 Start: 03-03-[address] EVELYN PEREZ Facility:[facility] Start: 02-24-2022 End: 02-24-[address] EVELYN PEREZ Facility:[facility] Start: 02-18-2022 End: 02-21-2022 Evaluation and management of inpatient DR DOMENIC RONQUILLO . Facility:[facility] Start: 02-17-2022 End: 02-17-[address] JESSE THOMAS Facility:[facility] Start: 02-13-2022 End: 02-13-[address] DOMENIC RONQUILLO . Facility:[facility] Start: 02-10-2022 End: 02-10-[address] RADAMES RIBEIRO . Facility:[facility] Start: 02-06-2022 End: 02-06-[address] RADAMES RIBEIRO . Facility:[facility] Start: 02-03-2022 End: 02-03-[address] JESSE THOMAS Facility:[facility]1 Start: 02-02-2022 End: 02-02-[address] EVELYN PEREZ Facility:[facility]1 Start: 01-27-[address] EVELYN PEREZ Facility:[facility]1 Start: 12-27-2021 End: 12-27-2021 ambulatory Sabina Barnhart Other [facility] Other Start: 12-27-2021 Office outpatient visit 5 minutes Sabina Barnhart [facility] Start: 07-16-2021 Patient encounter procedure Evelyn Perez Work Phone: VL-QXDVV-Riduyo 310 IVF Work Phone: Start: 07-07-2021 AUDIT Evelyn Husain Scherm erhorn Work Phone: BS-HAYPD-Dozoyv 310 IVF Work Phone: Start: 07-07-2021 Chart Update Evelyn Husain Schechiara erhorn Work Phone: EU-ACSHF-Tzsifx 310 IVF Work Phone: Start: 07-02-2021 Telephone encounter Evelyn Husain Alejandro higginbothamerhorn Work Phone: CB-AJFQC-Hjfszn 310 IVF Work Phone: Start: 06-19-2021 Patient encounter procedure Evelyn Trevinohorn Work Phone: GD-QRGRF-Qgivvm 310 IVF Work Phone: Start: 06-07-2020 Patient encounter procedure King Lappen YY-TZELJ-CLA [address] [place] Work Phone: Start: 04-24-2020 Patient encounter procedure King Lappen BJ-UBPKZ-XFH [address] [place] Work Phone: Start: 02-20-2020 Patient encounter procedure King Lappen HF-ZKSFF-GED [address] [place] Work Phone: Start: 02-14-2020 Patient encounter procedure King Lappen UO-YQRWV-HBD [address] [place] Work Phone: Start: 01-23-2020 Patient encounter procedure King Lappen IS-JAOFB-RVN [address] [place] Work Phone: Start: 12-25-2019 Patient encounter procedure King Lappen XX-WBGDX-GKV [address] [place] Work Phone: Start: 11-21-2019 Patient encounter procedure King Lappen ST-TGWHO-FPC [address] [place] Work Phone: Start: 11-16-2019 Patient encounter procedure Kelechi Gage [facility] Work Phone: Start: 11-14-2019 Patient encounter procedure Kelechi Gage JI-NJAPW-Qaemac 310 IVF Work Phone: Start: 11-09-2019 Patient encounter procedure Kelechi Gage KR-MMMUR-Ucwotx 310 IVF Work Phone: Start: 11-02-2019 Patient encounter procedure Kelechi Gage MP-Reproductive Endocrinology-[place] Work Phone: Start: 10-21-2019 Patient encounter procedure Kelechi Gage MP-Reproductive Endocrinology-[place]isman Work Phone: Start: 10-14-2019 Patient encounter procedure Kelechi Gage XR-RMAKS-Ofqtqd 310 IVF Work Phone: Start: 10-11-2019 Patient encounter procedure Kelechi Gage JO-RCCQB-Qfnlcp 310 IVF Work Phone: Start: 10-05-2019 Patient encounter procedure Kelechi Gage IG-JXLHN-Hlwpwp 320 Work Phone: Start: 10-02-2019 Patient encounter procedure Kelechi TONGBZ-FSVSL-Qsgvvoq 206A IVF Work Phone: Start: 08-14-2019 Patient encounter procedure Kelechi Gage EU-QMXXR-Bhwctm 310 IVF Work Phone: Start: 08-13-2019 Patient encounter procedure Kelechi TONGYP-RSXPY-Hjknow 310 IVF Work Phone: Start: 08-12-2019 Patient encounter procedure Kelechi Gage YH-RUABP-Qenwmv 310 IVF Work Phone: Start: 08-11-2019 Patient encounter procedure Kelechi Gage EH-YIOKU-Wwxzdf 310 IVF Work Phone: Start: 08-09-2019 Patient encounter procedure Kelechi Gage DN-MFYZV-Zermcv 310 IVF Work Phone: Start: 08-07-2019 Patient encounter procedure Kelechi Gage AD-XJLUH-Mshszt 310 IVF Work Phone: Start: 08-04-2019 Patient encounter procedure Kelechi Gage MT-VYLQT-Vlijcu 310 IVF Work Phone: Start: 07-07-2019 Patient encounter procedure Kelechi Gage AX-JQOBI-Vrzsqb 310 IVF Work Phone: Start: 06-08-2019 Patient encounter procedure Kelechi Gage PE-CVWKU-Vfnmgc 310 IVF Work Phone: Start: 05-17-2019 Patient encounter procedure Kelechi Gage BX-WGJXD-Raogah 310 IVF Work Phone: Start: 05-08-2019 Patient encounter procedure Kelechi Gage NX-FXAVY-Cuddlu 310 IVF Work Phone: Start: 05-05-2019 Patient encounter procedure Kelechi Gage ZY-JZEQT-Skpyoj 310 IVF Work Phone: Start: 04-13-2019 Patient encounter procedure Kelechi Gage OB-LOPZM-Jfeddl 310 IVF Work Phone: Start: 04-11-2019 Patient encounter procedure Kelechi Gage RR-FSBUR-Ilbsch 310 IVF Work Phone: Start: 03-20-2019 Patient encounter procedure Kelechi Gage ZC-HBDGC-Fbysxf 310 IVF Work Phone: Start: 03-17-2019 Patient encounter procedure Kelechi Gage RM-HFDVL-Rzsswu 310 IVF Work Phone: Start: 02-22-2019 Patient encounter procedure Kelechi Gage ZV-XCBIT-Bpfumn 310 IVF Work Phone: Start: 02-20-2019 Patient encounter procedure Kelechi Gage CD-ZVBDE-Cysnzm 310 IVF Work Phone: Start: 02-13-2019 Patient encounter procedure Bruce Mayes Facility:[facility] Start: 02-08-2019 End: 02-12-2019 Patient encounter procedure Bruce Montiel Mayes Facility:[facility] Start: 01-19-2019 Patient encounter procedure Kelechi Gage GP-EFCLD-Pgcdyo 310 IVF Work Phone: Patient encounter status Evelyn Perez Work Phone: OH-HEFDQ-Kqtrzr 310 IVF Work Phone: Procedures Date Procedure Procedure Detail Performing Clinician Start: 02-27-2023 Radex ankle complete minimum 3 views Dusty Escalante MD Work Phone: Start: 02-19-2022 Delivery of Products of Conception, External Approach DR EVELYN PEREZ Start: 02-19-2022 Division of Female Perineum, External Approach DR EVELYN PEREZ Start: 02-19-2022 Drainage of Amniotic Fluid, Therapeutic from Products of Conception, Via Natural or Artificial Opening DR EVELYN PEREZ Start: 02-19-2022 Repair Perineum Musc le, Open Approach DR EVELYN PEREZ Start: 02-18-2022 Introduction of Horm one into Female Reproductive, Via Natural or Artificial Opening DR EVELYN PEREZ Start: 06-07-2020 Cult, Beta Strep Grp B - Vaginal/Rectal King Lappen Start: 06-05-2020 MAC Imaging Order Justi n Lappen Start: 12-25-2019 Antibody hiv-1 King L appen Start: 12-25-2019 Antibody rubella King Lappen Start: 12-25-2019 Complete Blood Count Anemia Panel with reflex King Lappen Start: 12-25-2019 Culture bacterial quanttative colony count urine King Lappen Start: 12-25-2019 Hemoglobin Identification King Lappen Start: 12-25-2019 Hepatitis c antibody Ju stin Lappen Start: 12-25-2019 Iaad ia hepatitis b surface antigen King Lappen Start: 12-25-2019 Iadna chlamydia trac homatis amplified probe tq King Lappen Start: 12-25-2019 SYPHILIS SCREENING W ITH REFLEX King Lappen Start: 12-25-2019 Type and Screen King Lappen Start: 11-09-2019 Blood count complete auto&auto difrntl wbc Kelechi Gage Start: 11-09-2019 CBC W Auto Different ial panel - Blood Kelechi Too Start: 11-09-2019 Comprehensive metabo lic 2000 panel Kelechi Gage Start: 11-09-2019 Gonadotropin chorion ic quantitative Kelechi Gage Start: 11-09-2019 IO Ultrasound, Kelechi Too Start: 11-09-2019 Urnls dip stick/tabl et rgnt auto w/o microscopy Kelechi Gage Start: 11-02-2019 IO Ultrasound, Kelechi Gage Start: 10-19-2019 Gonadotropin chorion ic quantitative Kelechi Gage Start: 10-11-2019 Assay of estradiol Arsenio Gage Start: 10-11-2019 IO Ultrasound, limit ed pelvic, follicle monitoring Kelechi Gage Start: 10-05-2019 Assay of estradiol Arsenio Gage Start: 10-05-2019 IO Ultrasound, limit ed pelvic, follicle monitoring Kelechi Gage Start: 09-20-2019 Assay of estradiol Arsenio Gage Start: 09-20-2019 Assay of progesterone Eve Gage Start: 09-20-2019 Gonadotropin luteini zing hormone Kelechi Gage Start: 09-20-2019 IO Ultrasound, limit ed pelvic, follicle monitoring Kelechi Gage Start: 08-21-2019 IO Ultrasound, limit ed pelvic, follicle monitoring Kelechi Gage Extraction of wisdom tooth Eve aguirre Too Plan of Treatment Date Care Activity Detail Author Start: 06-15-2023 Influenza vaccination Flu vacc ine (Season Ended) [facility] Start: 2021 Screening for malign ant neoplasm of cervix [facility] Start: 07-25-2021 ULTRASOUND, Provider : OBGYN IVF RDMS ARDEN 1,[facility] O[facility], Status: Pen, Time: 9:00 AM ULTRASOUND, Provider: OBGYN IVF RDMS ARDEN 1,MG OBGYN, Status: Pen, Time: 9:00 AM ND-PEYYH-Igvkyz 310 IVF Work Phone: Start: 07-16-2021 ULTRASOUND, Provider : OBGYN IVF RDMS [id number] 1,MG OBGYN, Status: Pen, Time: 1:00 PM ULTRASOUND, Provider: OBGYN IVF RDMS [id number] 1,MG OBGYN, Status: Pen, Time: 1:00 PM GB-ZLTPC-Rbksnx 310 IVF Work Phone: Start: 07-07-2021 ULTRASALIN, Provider : Miguel A Barrera, Status: Pen, Time: 10:00 AM ULTRASALIN, Provider: Miguel A Barrera, Status: Pen, Time: 10:00 AM JA-IJXJX-Fyhtbh 310 IVF Work Phone: Start: 06-05-2020 MAC Imaging Order MG-SKIP LOAD DRIVER-MAC 1200 [place] Work Phone: Start: 11-16-2019 IO Ultrasound, MP-Reproductive Endocrinology-[place] 206 Work Phone: Start: 11-14-2019 Blood count complete auto&auto difrntl wbc Complete Blood Count + Differential IB-OEKLO-Wegaeq 310 IVF Work Phone: Start: 11-14-2019 Comprehensive metabo lic 2000 panel QK-IOBPJ-Odwrnd 310 IVF Work Phone: Start: 11-02-2019 Gonadotropin chorion ic quantitative HCG, Beta Quantitative MP-Reproductive Endocrinology-[place] 206 Work Phone: Start: 10-11-2019 IO Ultrasound, limited pelvic, follicle monitoring AX-TASUM-Xwxwgs 310 IVF Work Phone: Start: 10-05-2019 IO Ultrasound, limited pelvic, follicle monitoring VD-OOHJB-Zqdnlr 320 Work Phone: Start: 2012 Screening for malign ant neoplasm of cervix Pap smear [facility] Start: 2010 DTaP/Tdap/Td vaccine (1 - Tdap) DTaP/Tdap/Td vaccine (1 - Tdap) [facility] Start: 2009 Hepatitis C screening Hepatitis C sc reen [facility] Start: 2006 HIV screening HIV screen [facility] Start: 2003 Depression Screen Depression Screen [facility] Start: 1992 Varicella vaccine (1 of 2 - 2-dose childhood series) Varicella vaccine (1 of 2 - 2-dose childhood series) [facility] Start: 03-02-1992 COVID-19 Vaccine (#1) COVID-19 Vacci ne (#1) [facility] Assay of estradiol Estradiol, Serum MG-SKIP LOAD DRIVER-Risman 310 IVF Work Phone: Comment on above: Approx [id number] Approx [id number] Approx [id number] Assay of progesterone Progesterone, Serum DH-YKNME-Fwnwqc 310 IVF Work Phone: Comment on above: Approx [id number] Gonadotropin luteini zing hormone Luteinizing Hormone, Serum YE-EGISR-Gmjfqz 310 IVF Work Phone: Comment on above: Approx [id number] LG-RPJGA-Pgbylm 320 Work Phone: IO Ultrasound, l imited pelvic, follicle monitoring RM-MUVUK-Gxnyrb 310 IVF Work Phone: Comment on above: Approx [id number] Approx [id number] Approx 02Oct2019 NEGATED: Highlighted row has been ruled out! Planned Goals not documented KY-SHIKG-Huwcfb 310 IVF Work Phone: Payers Date Payer Category Payer Self-pay 2017 Unknown 1991 Unknown [id number] 2.16.84 [id number] 1991 Unknown [id number] 2.16.84 0.1.831844.3.579.2.593 1991 Unknown [id number] 2.16.84 0.1.702222.3.579.2.593 1991 Unknown [id number] 2.16.84 0.1.450159.3.579.2.593 1991 Unknown [id number] 2.16.84 0.1.307143.3.579.2.593 1991 Unknown [id number] 2.16.84 0.1.749055.3.579.2.593 1991 Unknown [id number] 2.16.84 0.1.589525.3.579.2.593 1991 Unknown [id number] 2.16.84 0.1.131221.3.579.2.593 1991 Unknown [id number] 2.16.84 0.1.013395.3.579.2.593 1991 Unknown [id number] 2.16.84 0.1.657454.3.579.2.593 1991 Unknown [id number] 2.16.84 0.1.122230.3.579.2.593 1991 Unknown [id number] 2.16.84 0.1.809565.3.579.2.593 1991 Unknown [id number] 2.16.84 0.1.957419.3.579.2.593 1991 Unknown [id number] 2.16.84 0.1.973007.3.579.2.593 1991 Unknown [id number] 2.16.8 40.1.713105.3.579.2.173 1991 Unknown [id number] 2.16.8 40.1.829905.3.579.2.173 1991 Unknown [id number] 2.16.840 .1.642058.3.579.2.1259 1991 Unknown [id number] 2.16. 840.1.970697.3.579.2.196 1991 Unknown [id number] 2.16. 840.1.471866.3.579.2.196 1959 Self-pay [id number] 1959 Unknown [id number] 1959 Unknown [id number] Unknown [id number] 2.16.8 40.1.819819.3.579.2.243 Unknown [id number] 2.16.8 40.1.841887.3.579.2.243 Unknown [id number] 2.16.8 40.1.601858.3.579.2.531 Social History Date Type Detail Facility - - LZ-YVVPM-Nbitic 310 IVF Work Phone: Never a smoker Never a smoker MG-OBSACHIN-Renee rosario 310 IVF Work Phone: Comment on above: [facility] ED; Sex Assigned At Sex Assigned At [facility] Other Start: 09-22-2022 Tobacco smoking stat [facility] Never smoked tobacco [employer] Work Phone: Start: 09-22-2022 Tobacco use and exposure Smokeless tobacco non-user [employer] Work Phone: Start: 1990 Sex Assigned At Not on file B ON [email or web address] Work Phone: Start: 02-17-2023 End: 02-27-2023 Exposure to SARS-CoV-2 (event) Not sure [facility]ON [email or web address] Functional Status Date Assessment Result Facility NEGATED: Highlighted row Functional performance Functional status health issues are not documented Disease OW-OATAS-Gnfnsm 310 IVF Work Phone: Mental Status Date Assessment Result Facility NEGATED: Highlighted row Cognitive function [Interpretation] Cognitive status health issues are not documented Disease NZ-LMHPW-Scourl 310 IVF Work Phone: Clinical Note 01-13-2023 Note Date & Type Note Facility 01-13-2023 Note This is a Telehealth Appointment *This visit was conducted via Telehealth with real time interactive synchronized audio and video communication. This was performed due to the current COVID-19 pandemic in order to minimize exposure to both patients and staff. The patient verbally consented to treatment. The patient understands their rights, the HIPAA risks and that they will be charged accordingly for the services rendered. The patient was seen via telemedicine while they were at: _ Chief Complaint med refill History of Present Illness Patient being evaluated via telehealth with history of asthma, shortness of breath and PE. Upon presentation shows no symptoms of distress currently 98% on room air. ACT score is 22. Patient is doing well from pulmonary standpoint no acute symptoms. Currently denies any fevers, chills, night sweats, unintentional weight loss, lower extreme edema, hemoptysis or chest pain. Only has increased shortness of breath from running however training currently running approximately 3 miles. She does continue with Dulera 200, 2 puffs twice daily and albuterol as needed. Does remain on Lovenox injections daily while she is breast-feeding. No new concerns from pulmonary standpoint. Review of Systems General Adult ROS Fatigue: No Weight Loss: No Cardiovascular Edema: No Orthopnea: No EENMT Hoarseness: No Postnasal drainage: No Sore_throat: No Gastrointestinal Heartburn: No Vomiting: No Genitourinary Hematologic/Lymphatic Musculoskeletal Neurological Headache: No Psychiatric Poor sleep quality: No Suicidal Ideation: No Respiratory Cough: No Hemoptysis: No Other Respiratory: No Shortness_of_breath: No Snoring: No Sputum production: No Wheezing: No Skin Physical Exam Vitals & Measurements HR: 78 (Peripheral) SpO2: 98 HT: 158 cm WT: 73.5 kg WT: 73.5 kg (Dosing) BMI: 29.44 General: No acute distress. Normally conversant Eyes: Normal conjunctiva. Round and symmetric pupils. ENT: External ear and nasal structures normal. Hearing grossly intact. No nasal discharge. Neck: Neck appears supple. No visible masses or thyromegaly. Respiratory: Respirations are non-labored. No wheezing or stridor noted. Skin: No visible rashes or ulcers. Psych: Alert and oriented. Cooperative with appropriate mood and affect, normal judgment. CV: No extremity edema or cyanosis noted MSK: Normal ambulation. Normal upper and lower extremity range of motion. Neuro: No focal deficits noted. CNNs II-XII are grossly intact. Additional Vitals No qualifying data available. Assessment/Plan 1. Asthma Ordered: [id number] AMB Admin of patient-focused health risk assessment instrument 2. SOB (shortness of breath) 3. History of pulmonary embolism Increase activity as tolerated Continue with current respiratory medications. Continue with anticoagulation as prescribed monitoring for signs and symptoms of bleeding. Follow-up pulmonary clinic 1 year sooner if needed Plan of care and treatment discussed with patient, all questions and concerns answered at this time. Medical Decision Making Chronic conditions NOT treated during this visit that affected my overall medical decision making: None Treatment plans discussed but not opted for at this time: Treatment plan agreed upon Prescribed medication that requires intensive monitoring for toxicity: None I have reviewed the patient?s medication list for medication interactions/contraindications and/or for upcoming procedures: Yes Time Spent with the Patient I have personally spent 22 minutes on this date, directly related to today's patient visit, including pre and post visit work, for this date of service. Time listed does not include time spent on separately billable services. Problem List/Past Medical History Ongoing Asthma Hx pulmonary embolism Historical No qualifying data Medications Advair HFA 230 mcg-21 mcg/inh inhalation aerosol, 2 puffs, Inhale, BID, 6 refills Dulera 200 mcg-5 mcg/inh inhalation aerosol, 2 puffs, Inhale, BID enoxaparin 40 mg/0.4 mL injectable solution Multi Vitamin+ ProAir HFA 90 mcg/inh inhalation aerosol, 180 mcg= 2 puffs, Inhale, QID, PRN, 6 refills Symbicort 160 mcg-4.5 mcg/inh inhalation aerosol, 2 puffs, Inhale, BID, 3 refills Allergies No Known Medication Allergies Social History Alcohol Never Substance Abuse Denies All Tobacco Never (less than 100 in lifetime) Use:. Family History Noncontributory Immunizations Keep current on vaccinations Health Maintenance Increase activity as tolerated Electronically signed by Link Zoya PERKINS 01/13/23 12:06 [facility] Evaluation note 12-27-2021 Note Date & Type Note Facility 12-27-2021 Evaluation note Encounter Date Diagnosis Assessment Notes Dec, Contact with and (suspected) exposure to other viral communicable diseases (ICD-10 - Z20.828) Dec, Other Additional time spent conducting pre-visit phone call, screening for symptoms, instructions on social distancing, application and removal of PPE, and cleaning of examination room, equipment and supplies was preformed. Patient education given for testing methodology and results. Patient care instructions given in writting by [facility] document. [facility] Other Clinical Note 07-25-2021 Note Date & Type Note Facility 07-25-2021 Note Progress Note Met with pt: Reviewed ultrasound results from today, single IUP with cardiac activity, size within ultrasound error for dating, appropriate interval growth from previous ultrasound, pt denies pain or bleeding. LMP 05/29/2021 8 w + 1 d 03/05/2022 U/S 07/25/2021 based upon CRL 7 w + 5 d 03/08/2022 Assigned dating based on the LMP, selected on 07/16/2021 8 w + 1 d 03/05/2022 Assessment Gestational sac: visualized. Yolk sac: visualized. Embryo: visualized. Cardiac activity: present. YS 3.3 mm 5w 6d 3% Papaioannou CRL 12.7 mm 7w 5d 11% Pexsters FHR 149 bpm Continue prometrium 100 mg PV BID through 10.6 wga. Continue lovenox 40 mg SQ BID entire for protein S deficiency (managed by hematology Dr. Mayes). Transfer care to primary obgyn Dr. Ribeiro for care. Reviewed plan with Dr. Bruce Aburto, MEDICAL FIELD REPRESENTATIVE 07/25/2021 09:22 note: ob scan LOLLY: 03/05/2022. Gest. age 6 w + 6 d LMP 05/29/2021 6 w + 6 d 03/05/2022 U/S 07/16/2021 based upon CRL 6 w + 3 d 03/08/2022 Impression Early single intrauterine with cardiac activity present. Size is consistent with dating provided. Next to GS there is a second sac-like structure that is either consistent with an empty gestational sac (non-viable twin ) or more likely area of subchorionic hematoma. YS 3.1 mm CRL 4.1 mm 6w 3d FHR 111 bpm S=D Called patient to review ultrasound results. Remain on PNV, Lovenox 40mg BID , Prometrium 100mg BID through 10 weeks day. Repeat scan in 7-10 days. Plan reviewed by Dr. Healy. Petra Lombardi MEDICAL FIELD REPRESENTATIVE 07/16/21 1409 TC to pt with quant = 3238 form yesterday; normal rise from 728 on 07/02; Pt doing well; no problems with Lovenox. PT transferred to [facility] to schedule OB US for next week at [facility]. Bere Way RN 07/07/2021 11:47 Spoke with patient regarding YRRX=752. Pain=0. Patient states she will begin prometrium BID and Lovenox today. Patient will repeat BHCg on Wednesday when she is at work. Patient aware RN will call her WednesdayJuly 07 with results and plan. Lucy Dunlap R.N.07/03/2021 12:19 Spoke to patient, will start Prometrium 100 mg BID and Lovenox 40 mg BID today (+Protein S deficiency). Emerson to f/u with patient tomorrow once HCG level is back. Patient verbalized understanding. Rosibel Sam RN 07/02/2021 13:54 note: Reviewed positive test. LMP 05/29, conceived on christy cycle/IC. Plan to get HCG drawn today. Start Prometrium 100mg BID. Start Lovenox 40mg BID SQ. Plan per Dr. Healy. RN to communicate. Petra Lombardi [facility] 07/02/21 1304 Active Problems 16 weeks gestation of (V22.2) (Z3A.16) 20 weeks gestation of (V22.2) (Z3A.20) 26 weeks gestation of (V22.2) (Z3A.26) 33 weeks gestation of (V22.2) (Z3A.33) 35 weeks gestation of (V22.2) (Z3A.35) Acid reflux (530.81) (K21.9) Asthma (493.90) (J45.909) Asthma affecting in second trimester (648.93,493.90) (O99.512,J45.909) Encounter for artificial insemination (V26.1) (Z31.89) Encounter for preconception consultation (V26.49) (Z31.69) Encounter for test, result positive (V72.42) (Z32.01) Encounter for vitamin deficiency screening (V77.99) (Z13.21) Encounter to determine viability of (V23.87) (O36.80X0) Female infertility (628.9) (N97.9) Fertility testing (V26.21) (Z31.41) Forceps delivery (669.50) (O75.9) 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) Irregular menses (626.4) (N92.6) Obesity during in second trimester (649.13) (O99.212) Pelvic pain in female (625.9) (R10.2) Pituitary microadenoma with hyperprolactinemia (227.3,253.1) (D35.2,E22.9) Post-op pain (338.18) (G89.18) anxiety (648.44,300.00) (O99.345,F41.8) exam (V24.2) (Z39.2) (V22.2) (Z34.90) examination or test, unconfirmed (V72.40) (Z32.00) care in first trimester (V22.1) (Z34.91) Preop testing (V72.84) (Z01.818) Pre-procedure lab exam (V72.63) (Z01.812) Protein S deficiency (289.81) (D68.59) Pulmonary embolism (415.19) (I26.99) Screening for STD (sexually transmitted disease) (V74.5) (Z11.3) Screening for STDs (sexually transmitted diseases) (V74.5) (Z11.3) Seasonal allergies (477.9) (J30.2) Thrombophilia affecting in second trimester, antepartum (649.33,289.81) (O99.112,D68.59) Thrombophilia affecting in third trimester, antepartum (649.33,289.81) (O99.113,D68.59) Allergies Progesterone OIL Allergy; Recorded By: Bere Way; 11/06/2019 1:03:32 PM Current Meds Medication NameInstruction Claritin 10 MG Oral CapsuleTAKE 1 CAPSULE Daily Dulera 200-5 MCG/ACT Inhalation Aerosol Enoxaparin Sodium 40 MG/0.4ML Subcutaneous Solution (Lovenox)INJECT 40 MG Twice daily Flonase Allergy Relief 50 MCG/ACT Nasal Suspension (Fluticasone Propionate) Lovenox 40 MG/0.4ML Subcutaneous Solution (Enoxaparin Sodium) Peak Air Peak Flow Meter DeviceUse as directed. Peak F (more content not included)... [email or web address] Chief complaint Narrative - Reported 06-19-2021 Note Date & Type Note Facility 06-19-2021 Chief complaint Narrative - Reported An interactive audio and video telecommunication system which permits real time communications between the patient (at the originating site) and provider (at the distant site) was utilized to provide this telehealth service.Verbal consent was requested and obtained from KIARA ASHLEY on this date, 06/19/2021 03:00 PM , for a telehealth visit.Pt presents for a FUV to discuss transferring their remaining embryo.Geena GIL.Telemedicine visit due to COVID-19 pandemic. Verbal consent obtained for telemedicine visit.[employer] [address] [facility] Work Phone: History of Present illness Narrative 06-15-2020 Note Date & Type Note Facility 06-15-2020 History of Present illness Narrative IVF Consult:Patient is a 30 year-old who presents for a FET [id number] Hx:06/2020: IOL @ 38 weeks due to history of Protein S deficiency on Lovenox (therapeutic dosing), needed forceps during delivery.Baby did not go to NICU. Does have hip dysplasia, currently being treated with braces., goal is to breastfeed x 1 yearCurrently on Lovenox 40 mg daily (previously was on 60 mg daily during fertility treatments)Indication for IVF:Ovulatory dysfunction, otherwise unexplained*Protein S deficiency-Has seen Dr. Mayes for hematology evaluation and confirmed Protein S deficiency-Has seen Dr. Guevara for MFM consult; has plan for anti-coagulation management in *Pituitary microadenoma (7 mm); history of galactorrhea-Prolactin normal, now with galactorrhea resolved--> no medications ever given-No visual changes or headaches-Repeat brain MRI 05/2019 showed no pituitary adenomaLength of infertility:1 year currentlyOvarian reserve testing:AMH: 2.07AFC: 6 R, 5 LeftStatus of fallopian tubes:Bilaterally patent fallopian tubes with normal contour on HSG - images reviewed [facility] 08/2018Uterine Cavity Evaluation:Normal uterine cavity on HSG- images reviewedTrial transfer: Easy transfer previouslyPast Infertility Treatments:Prior Clomid/IUI?4 cycles Clomid/IC, 2 cycle letrozyle IC4 cycles of letrozole/IUI- currently on 60 mg daily with plan to change to 40 mg BID with + testIVF #1: 07/2010: Antagonist cycle with letrozole during stim, FSH 275 with low dose hCG added with angatonist start. Peak E2 1380--> Lupron co-trigger---> 15 eggs retrieved, 5 mature--> ICSI--> 4 2pn--> 2 blasts frozen (3AA and 5BB)FET#1: Tried Estrace protocol--lining 2.5 mm.Instead did Letrozole 5 mg with FSH 75 for stimulated FET--> Peak E2 1871--> IM P4--> successful IUPGYN Hx:LMP: 05/29/21Menstrual cycles: Have been fairly regular for the past 3 months; 30-35 daysPap smear: 2019, up to dateMammogram: NonePMH/Surg Hx/Social Hx: See belowHx of Clotting disorders: Yes- Protein S deficiencyCurrently on Lovenox 40 mg dailyWas on Lovenox 60 mg daily prior to pregnancyNeeds to be on therapeutic dosing when Genetic Screening Hx: [facility] foresight screen negativePartner History:Franklin Ashley 04[birth year]09/1989A in past year:2.8 cc125 mil/mL69% [id number]=617 million(recent IUI sample)Morph from original SA was 2.8% [id number] IVF Work Phone: Evaluation note Note Date & Type Note Facility Evaluation note Diagnosis Sprain of left ankle, unspecified ligament, initial encounter- Primary documented in this encounter [employer] Phone: Hospital Discharge instructions Attachments Note Date & Type Note Facility Hospital Discharge instructions The following attachments cannot be sent through Care Everywhere.Ankle Sprain (Albanian)Ankle Sprain: Rehab Exercises (Albanian)documented in this encounter [employer] Phone: Summary Purpose Family History No Family History Records Found Grandmother Name Dates Details Family history of malignant neoplasm of breast(V16.3, Z80.3) Status:Active Family history of blood clot s(V18.3, Z82.49) Status:Active Sibling Name Dates Details Family history of blood clot s(V18.3, Z82.49) Status:Active Mother Name Dates Details Family history of blood clot s(V18.3, Z82.49) Status:Active Grandmother Name Dates Details Family history of malignant neoplasm of breast(V16.3, Z80.3) Status:Active Family history of blood clot s(V18.3, Z82.49) Status:Active Sibling Name Dates Details Family history of blood clot s(V18.3, Z82.49) Status:Active Mother Name Dates Details Family history of blood clot s(V18.3, Z82.49) Status:Active Grandmother Name Dates Details Family history of malignant neoplasm of breast(V16.3, Z80.3) Status:Active Family history of blood clot s(V18.3, Z82.49) Status:Active Sibling Name Dates Details Family history of blood clot s(V18.3, Z82.49) Status:Active Mother Name Dates Details Family history of blood clot s(V18.3, Z82.49) Status:Active Grandmother Name Dates Details Family history of malignant neoplasm of breast(V16.3, Z80.3) Status:Active Family history of blood clot s(V18.3, Z82.49) Status:Active Sibling Name Dates Details Family history of blood clot s(V18.3, Z82.49) Status:Active Mother Name Dates Details Family history of blood clot s(V18.3, Z82.49) Status:Active Grandmother Name Dates Details Family history of malignant neoplasm of breast(V16.3, Z80.3) Status:Active Family history of blood clot s(V18.3, Z82.49) Status:Active Sibling Name Dates Details Family history of blood clot s(V18.3, Z82.49) Status:Active Mother Name Dates Details Family history of blood clot s(V18.3, Z82.49) Status:Active Grandmother Name Dates Details Family history of malignant neoplasm of breast(V16.3, Z80.3) Status:Active Family history of blood clot s(V18.3, Z82.49) Status:Active Sibling Name Dates Details Family history of blood clot s(V18.3, Z82.49) Status:Active Mother Name Dates Details Family history of blood clot s(V18.3, Z82.49) Status:Active Grandmother Name Dates Details Family history of malignant neoplasm of breast(V16.3, Z80.3) Status:Active Family history of blood clot s(V18.3, Z82.49) Status:Active Sibling Name Dates Details Family history of blood clot s(V18.3, Z82.49) Status:Active Mother Name Dates Details Family history of blood clot s(V18.3, Z82.49) Status:Active Grandmother Name Dates Details Family history of malignant neoplasm of breast(V16.3, Z80.3) Status:Active Family history of blood clot s(V18.3, Z82.49) Status:Active Sibling Name Dates Details Family history of blood clot s(V18.3, Z82.49) Status:Active Mother Name Dates Details Family history of blood clot s(V18.3, Z82.49) Status:Active Grandmother Name Dates Details Family history of malignant neoplasm of breast(V16.3, Z80.3) Status:Active Family history of blood clot s(V18.3, Z82.49) Status:Active Sibling Name Dates Details Family history of blood clot s(V18.3, Z82.49) Status:Active Mother Name Dates Details Family history of blood clot s(V18.3, Z82.49) Status:Active Grandmother Name Dates Details Family history of malignant neoplasm of breast(V16.3, Z80.3) Status:Active Family history of blood clot s(V18.3, Z82.49) Status:Active Sibling Name Dates Details Family history of blood clot s(V18.3, Z82.49) Status:Active Mother Name Dates Details Family history of blood clot s(V18.3, Z82.49) Status:Active Grandmother Name Dates Details Family history of malignant neoplasm of breast(V16.3, Z80.3) Status:Active Family history of blood clot s(V18.3, Z82.49) Status:Active Sibling Name Dates Details Family history of blood clot s(V18.3, Z82.49) Status:Active Mother Name Dates Details Family history of blood clot s(V18.3, Z82.49) Status:Active Grandmother Name Dates Details Family history of malignant neoplasm of breast(V16.3, Z80.3) Status:Active Family history of blood clot s(V18.3, Z82.49) Status:Active Sibling Name Dates Details Family history of blood clot s(V18.3, Z82.49) Status:Active Mother Name Dates Details Family history of blood clot s(V18.3, Z82.49) Status:Active Grandmother Name Dates Details Family history of malignant neoplasm of breast(V16.3, Z80.3) Status:Active Family history of blood clot s(V18.3, Z82.49) Status:Active Sibling Name Dates Details Family history of blood clot s(V18.3, Z82.49) Status:Active Mother Name Dates Details Family history of blood clot s(V18.3, Z82.49) Status:Active Grandmother Name Dates Details Family history of malignant neoplasm of breast(V16.3, Z80.3) Status:Active Family history of blood clot s(V18.3, Z82.49) Status:Active Sibling Name Dates Details Family history of blood clot s(V18.3, Z82.49) Status:Active Mother Name Dates Details Family history of blood clot s(V18.3, Z82.49) Status:Active Grandmother Name Dates Details Family history of malignant neoplasm of breast(V16.3, Z80.3) Status:Active Family history of blood clot s(V18.3, Z82.49) Status:Active Sibling Name Dates Details Family history of blood clot s(V18.3, Z82.49) Status:Active Mother Name Dates Details Family history of blood clot s(V18.3, Z82.49) Status:Active Grandmother Name Dates Details Family history of malignant neoplasm of breast(V16.3, Z80.3) Status:Active Family history of blood clot s(V18.3, Z82.49) Status:Active Sibling Name Dates Details Family history of blood clot s(V18.3, Z82.49) Status:Active Mother Name Dates Details Family history of blood clot s(V18.3, Z82.49) Status:Active Grandmother Name Dates Details Family history of malignant neoplasm of breast(V16.3, Z80.3) Status:Active Family history of blood clot s(V18.3, Z82.49) Status:Active Sibling Name Dates Details Family history of blood clot s(V18.3, Z82.49) Status:Active Mother Name Dates Details Family history of blood clot s(V18.3, Z82.49) Status:Active Grandmother Name Dates Details Family history of malignant neoplasm of breast(V16.3, Z80.3) Status:Active Family history of blood clot s(V18.3, Z82.49) Status:Active Sibling Name Dates Details Family history of blood clot s(V18.3, Z82.49) Status:Active Mother Name Dates Details Family history of blood clot s(V18.3, Z82.49) Status:Active Grandmother Name Dates Details Family history of malignant neoplasm of breast(V16.3, Z80.3) Status:Active Family history of blood clot s(V18.3, Z82.49) Status:Active Sibling Name Dates Details Family history of blood clot s(V18.3, Z82.49) Status:Active Mother Name Dates Details Family history of blood clot s(V18.3, Z82.49) Status:Active Grandmother Name Dates Details Family history of malignant neoplasm of breast(V16.3, Z80.3) Status:Active Family history of blood clot s(V18.3, Z82.49) Status:Active Sibling Name Dates Details Family history of blood clot s(V18.3, Z82.49) Status:Active Mother Name Dates Details Family history of blood clot s(V18.3, Z82.49) Status:Active Grandmother Name Dates Details Family history of malignant neoplasm of breast(V16.3, Z80.3) Status:Active Family history of blood clot s(V18.3, Z82.49) Status:Active Sibling Name Dates Details Family history of blood clot s(V18.3, Z82.49) Status:Active Mother Name Dates Details Family history of blood clot s(V18.3, Z82.49) Status:Active Grandmother Name Dates Details Family history of malignant neoplasm of breast(V16.3, Z80.3) Status:Active Family history of blood clot s(V18.3, Z82.49) Status:Active Sibling Name Dates Details Family history of blood clot s(V18.3, Z82.49) Status:Active Mother Name Dates Details Family history of blood clot s(V18.3, Z82.49) Status:Active Grandmother Name Dates Details Family history of malignant neoplasm of breast(V16.3, Z80.3) Status:Active Family history of blood clot s(V18.3, Z82.49) Status:Active Sibling Name Dates Details Family history of blood clot s(V18.3, Z82.49) Status:Active Mother Name Dates Details Family history of blood clot s(V18.3, Z82.49) Status:Active Grandmother Name Dates Details Family history of malignant neoplasm of breast(V16.3, Z80.3) Status:Active Family history of blood clot s(V18.3, Z82.49) Status:Active Sibling Name Dates Details Family history of blood clot s(V18.3, Z82.49) Status:Active Mother Name Dates Details Family history of blood clot s(V18.3, Z82.49) Status:Active Grandmother Name Dates Details Family history of malignant neoplasm of breast(V16.3, Z80.3) Status:Active Family history of blood clot s(V18.3, Z82.49) Status:Active Sibling Name Dates Details Family history of blood clot s(V18.3, Z82.49) Status:Active Mother Name Dates Details Family history of blood clot s(V18.3, Z82.49) Status:Active Unknown Family Member Name Dates Details Family history of malignant neoplasm of breast: Maternal Grandmother(V16.3, Z80.3) Status:Active Family history of blood clot s: Mother, Sibling, Maternal Grandmother(V18.3, Z82.49) Status:Active Unknown Family Member Name Dates Details Family history of malignant neoplasm of breast: Maternal Grandmother(V16.3, Z80.3) Status:Active Family history of blood clot s: Mother, Sibling, Maternal Grandmother(V18.3, Z82.49) Status:Active Unknown Family Member Name Dates Details Family history of malignant neoplasm of breast: Maternal Grandmother(V16.3, Z80.3) Status:Active Family history of blood clot s: Mother, Sibling, Maternal Grandmother(V18.3, Z82.49) Status:Active Unknown Family Member Name Dates Details Family history of blood clot s: Mother, Sibling, Maternal Grandmother(V18.3, Z82.49) Status:Active Family history of malignant neoplasm of breast: Maternal Grandmother(V16.3, Z80.3) Status:Active Unknown Family Member Name Dates Details Family history of malignant neoplasm of breast: Maternal Grandmother(V16.3, Z80.3) Status:Active Family history of blood clot s: Mother, Sibling, Maternal Grandmother(V18.3, Z82.49) Status:Active Advance Directives No Advanced Directives Records FoundNo Advanced Directives Records FoundNo Advanced Directives Records FoundNo Advanced Directives Records FoundNo Advanced Directives Records FoundNo Advanced Directives Records FoundNo Advanced Directives Records FoundNo Advanced Directives Records FoundNo Advanced Directives Records FoundNo Advanced Directives Records Found Additional Source Comments INFORMATION SOURCE (unrecogn ized section and content) DATE CREATED AUTHOR 02/15/2019 [facility] DATE CREATED AUTHOR AUTHOR'S ORGANIZ ATION 11/12/2019 [facility] DATE CREATED AUTHOR AUTHOR'S ORGANIZ ATION 08/09/2020 [facility] DATE CREATED AUTHOR AUTHOR'S ORGANIZ ATION 07/26/2021 [employer] DATE CREATED AUTHOR AUTHOR'S ORGANIZ ATION 01/21/2023 [facility] DATE CREATED AUTHOR AUTHOR'S ORGANIZ ATION 03/06/2023 [facility] DATE CREATED AUTHOR AUTHOR'S ORGANIZ ATION 07/12/2023 [facility] DATE CREATED AUTHOR AUTHOR'S ORGANIZ ATION 10/04/2023 [facility] DATE CREATED AUTHOR AUTHOR'S ORGANIZ ATION 10/07/2023 [facility] EP[facility] DATE CREATED AUTHOR AUTHOR'S ORGANIZ ATION 10/30/2023 [facility] REASON FOR VISIT (unrecogniz ed section and content) Reason Comments Ankle Pain Rolled ankle during morning run. Swelling to lateral ankle. 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 Care Teams (unrecognized sec tion and content) [employer] Sealer Relationship Specialty Start Date End Date Evelyn Perez [address] [place] [address] PCP - General Pediatrics 09/22/22 FOR RECORDS PERTAINING TO PATIENTS WHO ARE OR HAVE BEEN ENROLLED IN A CHEMICAL DEPENDENCY/SUBSTANCEABUSE PROGRAM, SOME INFORMATION MAY BE OMITTED. This clinical summary was aggregated from multiple sources. Caution should be exercised in using it in the provision of clinical care. This summary normalizes information from multiple sources, and as a consequence, information in this document may materially change the coding, format and clinical context of patient data. In addition, data may be omitted in some cases. CLINICAL DECISIONS SHOULD BE BASED ON THE PRIMARY CLINICAL RECORDS. [facility] provides no warranty or guarantee of the accuracy or completeness of information in this document.
--- OUTSIDE RECORDS SUMMARY | 2023-11-04 10:07 | XMS_ITS | CCD ---
Author Name Unknown Address [address] [place] [address] Organization [facility] Care Team Providers Care Immigration Services Officer Name Role Phone Bruce Mayes Attending Unavailable [...] HER Unavailable Unavaila ble OBGYN IVF RDMS [id number] 1, MG OBGYN Unavailable Unavailable King Guevara Unavailable Unavailable Shahla Healy Unavailable Unavailable January, Jami Unavailable Unavailable Evelyn Perez Unavailable [phone] Unavailable Unavailable Unavailable Unavailable Sabina Barnhart Unavailable [...] Admkaterine Unavailable AnaEvelyn santana Primary Care Provider [phone] JAMI ROMERO Attending Unavailable ANA, EVELYN Husain Primary Care UnavailEVELYN Tomlinson Primary Care Unavailleyda e Lc Waite Admitting Evelyn Patino [facility] Unavailable Lc Waite Attending Unavailable SHERMAN HUNTER Attending Unavailable Link [facility] Zoya Cheung Attending Robert Perez MD, Evelyn Gracia Primary Care Evelyn Hernandez MD Primary [facility] APRNSIVA, Zoya Cheung Attending Robert ilable Allergies Allergy Classification Reported Allergen(s) Allergy Type Date of Onset Reaction(s) Facility Progesterone (2 sources) Progesterone; Translations: [Progesterone OIL] Drug Allergy [id number] n 310 IVF Work Phone: (16 sources) Progesterone; Translations: [Progesterone OIL] Drug Allergy 2 [facility] (2 sources) sesame seed extract Drug Allergy [facility] (1 source) No Known Medication Allergies; Translations: [No Known Medication Allergies] Propensity to adverse reactions to drug (disorder) [facility] Repository Medications Current Medications Medication Drug Class(es) [...] Kelechi Gage MD Start : 14-Aug-2019 Active [id number] 200 actuat albuterol 0.09 mg/actuat metered dose [...] DO Start : 19-Jan-2019 Active BD Disp [place] 27G X 1/2 (19 sources) Start: 10-03-2019 BD Disp Needle s 27G X 1/2 USE DIRECTED. Quantity: 2 Refills: 2 Shahla Healy MD Start : 03-Oct-2019 Active chorionic gonadotropin 01815 unt/ml injectable solution (19 sources) Gonadotropin Start: 10-03-2019 Chorionic Gonadotropin 16243 UNIT Intramuscular Solution Reconstituted USE DIRECTED. Quantity: [...] Start : 25-Dec-2019 Active Peak Flow Meter Calhoun Rang Device (3 sources) Start: 01-23-2020 Peak Flow Mete r Calhoun Rang Device USE DIRECTED. Quantity: 1 Refills: [...] Demographics: Name: KIARA ASHLEY Date: 1990 Address: [address] [place] [address] Date and Time: 12-Jul-2023 09:31 Caller Information: call from Call From: patient Caller Name: Kiara Primary Phone Number: [phone] Reason for Call: Reason for Callmedication question [...] 09:57 by Harmony Ross (N MGR) Normal [facility] XR ANKLE LEFT (MIN 3 VIEWS)o n [...] Dario William MD 02/27/23 Final result Normal [facility] 1. No acute osseous abnormality involving the left ankle. [facility] RIS CONSOLIDATED EXAMINATION: THREE XRAY VIEWS [...] acute osseous abnormality involving the left ankle. EDAN Phone: Radiology Study observation (narrative) EDAN Phone: XR ANKLE LEFT (MIN 3 VIEWS)O rdered By: Dario William on 02-27-2023 EDAN Phone: PAP ACOG PANEL 2: 30 to 65on 01-19-2023 . . Normal [facility] Comment on above: Result Comment: Perf ormed at: WB Performed By: #### [id number] #### [facility] [address] [place] [address] Dr. Claire Mayes Age Gdln ACOG Testing 30-65 Normal [facility] Comment on above: Performed By: #### [id number] #### [facility] [address] [address] [address] Claire Mayes DIAGNOSIS: Comment Normal [facility] Comment on above: Result Comment: NEGA TIVE FOR INTRAEPITHELIAL LESION OR MALIGNANCY. Performed at: WB Performed By: #### [id number] #### [facility] [address] [address] [address] Claire Mayes HPV Aptima Negative Normal Negative [facility] Comment on above: Result Comment: This nucleic acid amplification test detects fourteen high-risk HPV types (16,18,31,33,35,39,45,51,52,56,58,59,66,68) without differentiation. Performed at: =G Performed By: #### [id number] #### [facility] [address] [place] [address] Dr. Claire Mayes HPV Genotype Reflex Comment Normal [facility] Comment on above: Result Comment: Crit eria not met, HPV Genotype not performed. Performed at: WB Performed By: #### [id number] #### [facility] [address] [place] [address] Dr. Claire Mayes Methodology: Comment Normal [facility] Comment on above: Result Comment: This liquid based ThinPrep(R) pap test was screened with the use of an image guided system. Performed at: WB Performed By: #### [id number] #### [facility] [address] [place] [address] Dr. Claire Mayes Note: Comment Normal [facility] Comment on above: Result Comment: The Pap smear is a screening test designed to aid in the detection of premalignant and malignant conditions of the uterine cervix. It is not a diagnostic procedure and should not be used as the sole means of detecting cervical cancer. Both false-positive and false-negative reports do occur. . Performed at: WB Performed By: #### [id number] #### [facility] [address] [place] [address] Dr. Claire Mayes Performed by: Comment Normal [facility] Comment on above: Result Comment: Sherlyn Wright, Fermentation Engineer (ASCP) Performed at: WB Performed By: #### [id number] #### [facility] [address] [place] [address] Dr. Claire Mayes Specimen adequacy: Comment Normal [facility] Comment on above: Result Comment: Sati sfactory for evaluation. No endocervical component is identified. Performed at: WB Performed By: #### [id number] #### [facility] [address] [place] [address] Dr. Claire Mayes CBC with Diffon 09-22-2022 Abs. Basophil 0.03 k/uL Normal 0.00-0.20 [facility] Comment on above: Performed By: #### L IP, CDP, CP #### [address] [place], [place] [id number] Accountant Helper: Jesse Curry MD Abs.Imm.Granulocy te 0.04 k/uL Normal 0.00-0.30 [facility] Comment on above: Performed By: #### L IP, CDP, CP #### [address] [place], [facility]83 Accountant Helper: Jesse Curry MD Abs.Neutrophil (Seg) 12.54 k/uL High 1.50-8.10 [facility] Comment on above: Performed By: #### L IP, CDP, CP #### [address] [place] [id number] Accountant Helper: Jesse Curry MD Basophils/100 WBC (Bld) 0 % Normal 0-2 [facility] Comment on above: Performed By: #### L IP, CDP, CP #### [address] [place], [facility]83 Accountant Helper: Jesse Curry MD Eosinophils (Bld) [#/Vol] 0.16 10*3/uL Normal 0.00-0.44 [facility] Comment on above: Performed By: #### L IP, CDP, CP #### [address] [place], [facility]83 Accountant Helper: Jesse Curry MD Eosinophils/100 WBC (Bld) 1 % Normal 1-4 [facility] Comment on above: Performed By: #### L IP, CDP, CP #### [address] [place], [facility]83 Accountant Helper: Jesse Curry MD Erythrocyte distribution width (RBC) [Ratio] 13.6 % Normal 11.8-14.4 [facility] Comment on above: Performed By: #### L IP, CDP, CP #### [address] [place], [facility]83 Accountant Helper: Jesse Curry MD Hematocrit (Bld) [Volume fraction] 46.4 % Normal 36.3-47.1 [facility] Comment on above: Performed By: #### L IP, CDP, CP #### [facility] [address] [place], [place] 35[address]683 Accountant Helper: Jesse Curry MD Hemoglobin (Bld) [Mass/Vol] 15.6 g/dL High 11.9-15.1 [facility] Comment on above: Performed By: #### L IP, CDP, CP #### [address] [place], [place] [address]83 Accountant Helper: Jesse Curry MD Immature granulocytes/100 WBC (Bld) 0 % Normal 0 [facility] Comment on above: Performed By: #### L IP, CDP, CP #### [facility] [address] [place] [address] Dr. [place], [place] [id number] Accountant Helper: Jesse Curry MD Lymphocytes (Bld) [#/Vol] 0.98 10*3/uL Low 1.10-3.70 [facility] Comment on above: Performed By: #### L IP CDP, CP #### [address] [place], [place] 467[address]83 Accountant Helper: Jesse Curry MD Lymphocytes/100 WBC (Bld) 7 % Low 24-43 [facility] Comment on above: Performed By: #### L IP, CDP, CP #### [facility] [address] [place] [address] Dr. [place], [place] [id number] Accountant Helper: Jesse Curry MD MCH (RBC) [Entitic mass] 30.4 pg Normal 25.2-33.5 [facility] Comment on above: Performed By: #### L IP, CDP, CP #### [facility] [address] [place] [address] Dr[place], [place] [id number] Accountant Helper: Jesse Curry MD MCHC (RBC) [Mass/Vol] 33.6 g/dL Normal 28.4-34.8 [facility] Comment on above: Performed By: #### L BJ BUCK, CP #### [facility] [address] [place], [place] [address]83 Accountant Helper: Jesse Curry MD MCV (RBC) [Entitic vol] 90.3 fL Normal 82.6-102.9 [facility] Comment on above: Performed By: #### L IP CDP, CP #### [address] [place] [address] Accountant Helper: Jesse Curry MD Monocytes (Bld) [#/Vol] 0.58 10*3/uL Normal 0.10-1.20 [facility] Comment on above: Performed By: #### L BJ BUCK, CP #### [address] [place], [facility]83 Accountant Helper: Jesse Curry MD Monocytes/100 WBC (Bld) 4 % Normal 3-12 [facility] Comment on above: Performed By: #### L BJ BUCK, CP #### [address] [place], [place] 9[address]83 Accountant Helper: Jesse Curry MD Neutrophil (Seg) 88 % High 36-65 [facility] Comment on above: Performed By: #### L BJ BUCK, CP #### [address] [place], [place] [id number] Accountant Helper: Jesse Curry MD NRBC Automated 0.0 per 100 WBC Normal 0.0 [facility] Comment on above: Performed By: #### L BJ BUCK, CP #### [address] [place], [place] [address]60683 Accountant Helper: Jesse Curry MD Platelet mean volume (Bld) [Entitic vol] 9.9 fL Normal 8.1-13.5 [facility] Comment on above: Performed By: #### L IP CDP, CP #### [facility] [address] [place], [place] [address]896383 Accountant Helper: Jesse Curry MD Platelets (Bld) [#/Vol] 299 10*3/uL Normal 138-453 [facility] Comment on above: Performed By: #### L IP CDP, CP #### [facility] [address] [place], [place] [address]83 Accountant Helper: Jesse Curry MD RBC (Bld) [#/Vol] 5.14 10*6/uL High 3.95-5.11 [facility] Comment on above: Performed By: #### L CIELO CDP, CP #### [address] [place], [place] [address]83 Accountant Helper: Jesse Curry MD WBC (Bld) [#/Vol] 14.3 10*3/uL High 3.5-11.3 [facility] Comment on above: Performed By: #### L CIELO CDP, CP #### [address] [place], [facility]83 Accountant Helper: Jesse Curry MD CT ABDOMEN PELVIS W [...] A Maldonado DO 09/22/22 Final result Normal [facility] Comp Metabolic Profon 2021 Albumin [Mass/Vol] 4.7 g/dL Normal 3.5-5.2 [facility] Comment on above: Performed By: #### L CIELO CDP, CP #### [facility] [address] [place] [address] [place] [address] Accountant Helper: Jesse Curry MD Albumin/Glob Ratio 2.0 Normal 1.0-2.5 [facility] Comment on above: Performed By: #### L CIELO CDP, CP #### [facility] [address] [place] [address] [place] [address] Accountant Helper: Jesse Curry MD Alkaline Phos 77 U/L Normal 35-104 [facility] Comment on above: Performed By: #### L CIELO CDP, CP #### [address] [place] [address] Accountant Helper: Jesse Curry MD ALT [Catalytic activity/Vol] 10 U/L Normal 5-33 [facility] Comment on above: Performed By: #### L IP, CDP, CP #### [facility] [address] [place] [address] Dr. [place], [place] [phone] Accountant Helper: Jesse Curry MD Anion gap [Moles/Vol] 12 mmol/L Normal 9-17 [facility] Comment on above: Performed By: #### L IP, CDP, CP #### [facility] [address] [place], [place] 3230483 Accountant Helper: Jesse Curry MD AST [Catalytic activity/Vol] 14 U/L Normal <32 [facility] Comment on above: Performed By: #### L IP, CDP, CP #### [facility] [address] [place], [place] 355[address]83 Accountant Helper: Jesse Curry MD Bilirubin [Mass/Vol] 0.6 mg/dL Normal 0.3-1.2 [facility] Comment on above: Performed By: #### L IP, CDP, CP #### [facility] [address] [place] [address] Dr. [place], [place] [phone] Accountant Helper: Jesse Curry MD BUN/CRE Ratio 31 High 9-20 [facility] Comment on above: Performed By: #### L IP, CDP, CP #### [address] [place], [place] 1210383 Accountant Helper: Jesse Curry MD Calcium [Mass/Vol] 9.8 mg/dL Normal 8.6-10.4 [facility] Comment on above: Performed By: #### L IP, CDP, CP #### [facility] [address] [place] [address] Dr. [place], [place] 8343883 Accountant Helper: Jesse Curry MD Chloride [Moles/Vol] 104 mmol/L Normal 98-107 [facility] Comment on above: Performed By: #### L IP, CDP, CP #### [facility] [address] [place], [place] 936[address]83 Accountant Helper: Jesse Curry MD CO2 [Moles/Vol] 22 mmol/L Normal 20-31 [facility] Comment on above: Performed By: #### L IP, CDP, CP #### [facility] [address] [place] [address] Accountant Helper: Jesse Curry MD Creatinine [Mass/Vol] 0.85 mg/dL Normal 0.50-0.90 [facility] Comment on above: Performed By: #### L IP, CDP, CP #### [facility] [address] [place] [address] Accountant Helper: Jesse Curry MD GFR/1.73 sq M.predicted among non-blacks MDRD (S/P/Bld) [Vol rate/Area] mL/min/{1.73_m2} Normal >60 [facility] Comment on above: Result Comment: Effective [...] By: #### L CIELO CDP, CP #### [facility] [address] [place] [address] Accountant Helper: Jesse Curry MD Glucose [Mass/Vol] 109 mg/dL High 70-99 [facility] Comment on above: Performed By: #### L IP, CDP, CP #### [facility] [address] [place] [address] Accountant Helper: Jesse Curry MD Potassium [Moles/Vol] 4.0 mmol/L Normal 3.7-5.3 [facility] Comment on above: Performed By: #### L IP, CDP, CP #### [facility] [address] [place] [address] Accountant Helper: Jesse Curry MD Protein [Mass/Vol] 7.1 g/dL Normal 6.4-8.3 [facility] Comment on above: Performed By: #### L BJ BUCK, CP #### [facility] [address] [place] [address] Accountant Helper: Jesse Curry MD Sodium [Moles/Vol] 138 mmol/L Normal 135-144 [facility] Comment on above: Performed By: #### L IP CDP, CP #### [facility] [address] [place] [address] Accountant Helper: Jesse Curry MD Urea nitrogen [Mass/Vol] 26 mg/dL High 6-20 [facility] Comment on above: Performed By: #### L BJ BUCK, CP #### [facility] [address] [place] [address] Accountant Helper: Jesse Curry MD HCG, ,Urineon 09-22 Beta HCG ( test) Ql (U) Negative Normal NEG [facility] Comment on above: Result Comment: Spec imens with hCG levels near the threshold of the test (25 mIU/mL) may give a negative or indeterminate result. In such cases, another test should be performed with a new specimen in 48-72 hours. If early is suspected clinically in this setting, correlation with quantitative serum b-hCG level is suggested. [facility] has confirmed the use of plasma for this test. This has not been cleared or approved by the U.S. Food and Drug Administration. The FDA has determined that such clearance is not necessary. Performed By: #### U HCG #### [facility] [address] [place] [address] Accountant Helper: Jesse Curry MD Lactic Acidon 09-22-2022 Lactate [Moles/Vol] 1.8 mmol/L Normal 0.5-2.2 [facility] Comment on above: Performed By: #### L ACTIC #### [facility] [address] [place] [address] Accountant Helper: Jesse Curry MD Lipaseon 09-22-2022 Lipase [Catalytic activity/Vol] 39 U/L Normal 13-60 [facility] Comment on above: Performed By: #### L IP, CDP, CP #### [facility] [address] [place], [place] [phone] Accountant Helper: Jesse Curry MD UA w/Reflex Cultureon 2021 Bilirubin, SemiQt,Ur Negative Normal NEG [facility] Comment on above: Performed By: #### U MICAO, UAX #### [facility] [address] [place], [facility]83 Accountant Helper: Jesse Curry MD Blood, Urine Negative Normal NEG [facility] Comment on above: Performed By: #### U MICAO, UAX #### [facility] [address] [place], [facility]83 Accountant Helper: Jesse Curry MD Clarity (U) Clear Normal CLEAR [facility] Comment on above: Performed By: #### U MICAO, UAX #### [facility] [address] [place] [address] Dr. [place], [place] [phone] Accountant Helper: Jesse Curry MD Color (U) Yellow Normal YEL [facility] Comment on above: Performed By: #### U MICAO, UAX #### [facility] [address] [place], [facility]83 Accountant Helper: Jesse Curry MD Glucose Ql (U) Negative Normal NEG [facility] Comment on above: Performed By: #### U MICAO, UAX #### [facility] [address] [place], [place] 2248683 Accountant Helper: Jesse Curry MD Ketones Ql (U) Negative Normal NEG [facility] Comment on above: Performed By: #### U MICAO, UAX #### [facility] [address] [place] [address] Dr. [place], [place] 0117883 Accountant Helper: Jesse Curry MD Leukocyte esterase Test strip Ql (U) Negative Normal NEG [facility] Comment on above: Performed By: #### U MICAO, UAX #### [address] [place], [place] [phone] Accountant Helper: Jesse Curry MD Nitrite,Ur Negative Normal NEG [facility] Comment on above: Performed By: #### U MICAO, UAX #### [address] [place], [facility]83 Accountant Helper: Jesse Curry MD PH,Ur 8.0 Normal 5.0-9.0 [facility] Comment on above: Performed By: #### U MICAO, UAX #### [address] [place], [facility]83 Accountant Helper: Jesse Curry MD Protein Ql (U) Negative Normal NEG [facility] Comment on above: Performed By: #### U MICAO, UAX #### [address] [place], [facility]83 Accountant Helper: Jesse Curry MD Spec. [place],Ur 1.020 Normal 1.010-1.020 [facility] Comment on above: Performed By: #### U MICAO, UAX #### [address] [place], [facility]83 Accountant Helper: Jesse Curry MD Urobilinogen,Ur Normal Normal NORM [facility] Comment on above: Performed By: #### U MICAO, UAX #### [address] [place], [facility]83 Accountant Helper: Jesse Curry MD Urinalysis,Microon 2 Bacteria TRACE Abnormal NONE [facility] Comment on above: Performed By: #### U MICAO, UAX #### [facility] [address] [place], [place] [phone] Accountant Helper: Jesse Curry MD Epithelial cells LM Ql (Urine sed) 0 TO 2 Normal 0-25 [facility] Comment on above: Performed By: #### U MICAO, UAX #### [facility] [address] [place], [place] 7879483 Accountant Helper: Jesse Curry MD Urine RBC's None Normal 0-2 [facility] Comment on above: Performed By: #### U MICAO, UAX #### [facility] [address] [place] [address] Accountant Helper: Jesse Curry MD Urine WBC's 0 TO 2 Normal 0-5 [facility] Comment on above: Performed By: #### U MICAO, UAX #### [facility] [address] [place] [address] Accountant Helper: Jesse Curry MD CBC AUTO DIFFon 02-20-2022 BASO # 0.1 103/ul Normal 0.0-0.1 [facility] Comment on above: Performed By: #### C BC #### [facility] [address] [place] [address] Dr. Claire Mayes Basophils/100 WBC (Bld) 0.8 % Normal 0.2-2.0 [facility] Comment on above: Performed By: #### C BC #### [facility] [address] [place] [address] Dr. Claire Mayes EO # 0.2 103/ul Normal 0.0-0.7 [facility] Comment on above: Performed By: #### C BC #### [facility] [address] [place] [address] Dr. Claire Mayes Eosinophils/100 WBC (Bld) 0.9 % Normal 0.9-7.0 [facility] Comment on above: Performed By: #### C BC #### [facility] [address] [place] [address] Dr. Claire Mayes Erythrocyte distribution width (RBC) [Ratio] 15.0 % Normal 11.0-15.0 [facility] Comment on above: Performed By: #### C BC #### [facility] [address] [place] [address] Dr. Claire Mayes Hematocrit (Bld) [Volume fraction] 31.3 % Critically low 36.0-48.0 [facility] Comment on above: Performed By: #### C BC #### [facility] [address] [place] [address] Dr. Claire Mayes Hemoglobin (Bld) [Mass/Vol] 10.3 g/dL Critically low 12.0-16.0 [facility] Comment on above: Performed By: #### C BC #### [facility] [address] [place] [address] Dr. Claire Mayes IG # 0.21 10e3/ul Critically high 0.00-0.03 [facility] Comment on above: Performed By: #### C BC #### [facility] [address] [place] [address] Dr. Claire Mayes IG % 1.3 % Critically high 0.0-0.5 [facility] Comment on above: Performed By: #### C BC #### [facility] [address] [place] [address] Dr. Claire Mayes LYMPH # 2.1 103/ul Normal 1.2-3.8 [facility] Comment on above: Performed By: #### C BC #### [facility] [address] [place] [address] Dr. Claire Mayes Lymphocytes/100 WBC (Bld) 12.6 % Critically low 20.5-60.0 [facility] Comment on above: Performed By: #### C BC #### [facility] [address] [place] [address] Dr. Claire Mayes MANUAL DIFF REQ NO Normal [facility] Comment on above: Performed By: #### C BC #### [facility] [address] [place] [address] Dr. Claire Maeys MCH (RBC) [Entitic mass] 29.8 pg Normal 26.7-34.0 [facility] Comment on above: Performed By: #### C BC #### [facility] [address] [place] [address] Dr. Claire Mayes MCHC (RBC) [Mass/Vol] 32.9 g/dL Normal 29.9-35.2 [facility] Comment on above: Performed By: #### C BC #### [facility] [address] [place] [address] Dr. Claire Mayes MCV (RBC) [Entitic vol] 90.5 fL Normal 81.0-99.0 [facility] Comment on above: Performed By: #### C BC #### [facility] [address] [place] [address] Dr. Claire Mayes MONO # 0.8 103/ul Normal 0.3-0.8 [facility] Comment on above: Performed By: #### C BC #### [facility] [address] [place] [address] Dr. Claire Mayes Monocytes/100 WBC (Bld) 5.1 % Normal 1.7-12.0 [facility] Comment on above: Performed By: #### C BC #### [facility] [address] [place] [address] Dr. Claire Mayes NEUT # 13.2 103/ul Critically high 1.4-6.5 [facility] Comment on above: Performed By: #### C BC #### [facility] [address] [place] [address] Dr. Claire Mayes Neutrophils/100 WBC (Bld) 79.3 % Critically high 43.0-75.0 [facility] Comment on above: Performed By: #### C BC #### [facility] [address] [place] [address] Dr. Claire Mayes Platelet mean volume (Bld) [Entitic vol] 10.4 fL Normal 9.5-13.5 [facility] Comment on above: Performed By: #### C BC #### [facility] [address] [place] [address] Dr. Claire Mayes PLT 233 103/ul Normal 150-450 [facility] Comment on above: Performed By: #### C BC #### [facility] [address] [place] [address] Dr. Claire Mayes RBC 3.46 106/ul Critically low 4.20-5.40 [facility] Comment on above: Performed By: #### C BC #### [facility] [address] [place] [address] Dr. Claire Mayes WBC 16.6 103/ul Critically high 4.0-11.0 [facility] Comment on above: Performed By: #### C BC #### [facility] [address] [place] [address] Dr. Claire Mayes CBC AUTO DIFFon 02-18-2022 BASO # 0.1 103/ul Normal 0.0-0.1 [facility] Comment on above: Performed By: #### C BC #### [facility] [address] [place] [address] Dr. Claire Mayes Basophils/100 WBC (Bld) 0.7 % Normal 0.2-2.0 [facility] Comment on above: Performed By: #### C BC #### [facility] [address] [place] [address] Dr. Claire aMyes EO # 0.2 103/ul Normal 0.0-0.7 [facility] Comment on above: Performed By: #### C BC #### [facility] [address] [place] [address] Dr. Claire Mayes Eosinophils/100 WBC (Bld) 1.2 % Normal 0.9-7.0 [facility] Comment on above: Performed By: #### C BC #### [facility] [address] [place] [address] Dr. Claire Mayes Erythrocyte distribution width (RBC) [Ratio] 15.0 % Normal 11.0-15.0 [facility] Comment on above: Performed By: #### C BC #### [facility] [address] [place] [address] Dr. Claire Mayes Hematocrit (Bld) [Volume fraction] 35.1 % Critically low 36.0-48.0 [facility] Comment on above: Performed By: #### C BC #### [facility] [address] [place] [address] Dr. Claire Mayes Hemoglobin (Bld) [Mass/Vol] 11.8 g/dL Critically low 12.0-16.0 [facility] Comment on above: Performed By: #### C BC #### [facility] [address] [place] [address] Dr. Claire Mayes IG # 0.30 10e3/ul Critically high 0.00-0.03 [facility] Comment on above: Performed By: #### C BC #### [facility] [address] [place] [address] Dr. Claire Mayes IG % 1.9 % Critically high 0.0-0.5 [facility] Comment on above: Performed By: #### C BC #### [facility] [address] [place] [address] Dr. Claire Mayes LYMPH # 2.9 103/ul Normal 1.2-3.8 [facility] Comment on above: Performed By: #### C BC #### [facility] [address] [place] [address] Dr. Claire Mayes Lymphocytes/100 WBC (Bld) 18.5 % Critically low 20.5-60.0 [facility] Comment on above: Performed By: #### C BC #### [facility] [address] [place] [address] Dr. Claire Mayes MANUAL DIFF REQ NO Normal [facility] Comment on above: Performed By: #### C BC #### [facility] [address] [place] [address] Dr. Claire Mayes MCH (RBC) [Entitic mass] 30.2 pg Normal 26.7-34.0 [facility] Comment on above: Performed By: #### C BC #### [facility] [address] [place] [address] Dr. Claire Mayes MCHC (RBC) [Mass/Vol] 33.6 g/dL Normal 29.9-35.2 [facility] Comment on above: Performed By: #### C BC #### [facility] [address] [place] [address] Dr. Claire Mayes MCV (RBC) [Entitic vol] 89.8 fL Normal 81.0-99.0 [facility] Comment on above: Performed By: #### C BC #### [facility] [address] [place] [address] Dr. Claire Mayes MONO # 0.7 103/ul Normal 0.3-0.8 [facility] Comment on above: Performed By: #### C BC #### [facility] [address] [place] [address] Dr. Claire Mayes Monocytes/100 WBC (Bld) 4.7 % Normal 1.7-12.0 [facility] Comment on above: Performed By: #### C BC #### [facility] [address] [place] [address] Dr. Claire Mayes NEUT # 11.3 103/ul Critically high 1.4-6.5 [facility] Comment on above: Performed By: #### C BC #### [facility] [address] [place] [address] Dr. Claire Mayes Neutrophils/100 WBC (Bld) 73.0 % Normal 43.0-75.0 [facility] Comment on above: Performed By: #### C BC #### [facility] [address] [place] [address] Dr. Claire Mayes Platelet mean volume (Bld) [Entitic vol] 10.8 fL Normal 9.5-13.5 [facility] Comment on above: Performed By: #### C BC #### [facility] [address] [place] [address] Dr. Claire Mayes PLT 233 103/ul Normal 150-450 [facility] Comment on above: Performed By: #### C BC #### [facility] [address] [place] [address] Dr. Claire Mayes RBC 3.91 106/ul Critically low 4.20-5.40 [facility] Comment on above: Performed By: #### C BC #### [facility] [address] [address] [address] Claire Mayes WBC 15.5 103/ul Critically high 4.0-11.0 [facility] Comment on above: Performed By: #### C BC #### [facility] [address] [address] [address] Claire Mayes Covid-19 PCR ([facility])on SARS-CoV-2 (COVID-19) RNA FERDINAND+probe Ql (Unsp spec) Not detected Normal NOT DETECTED [facility] Comment on above: Result Comment: When diagnostic [...] for this test is supported by the [place] of Health and Human Service's declaration that [...] used). Performed By: #### C VDTBH #### [facility] [address] [address] [address] Claire Mayes DRUG SCREEN RAPID (URINE)on 02-18-2022 AMP Negative Normal NEGATIVE [facility] Comment on above: Performed By: #### D RUGRPD #### [facility] [address] [place] [address] Dr. Claire Mayes BAR Negative Normal NEGATIVE [facility] Comment on above: Performed By: #### D RUGRPD #### [facility] [address] [place] [address] Dr. Claire Mayes BUP Negative Normal NEGATIVE [facility] Comment on above: Performed By: #### D RUGRPD #### [facility] [address] [place] [address] Dr. Claire Mayes BZO Negative Normal NEGATIVE [facility] Comment on above: Performed By: #### D RUGRPD #### [facility] [address] [place] [address] Dr. Claire Mayes KIT Negative Normal NEGATIVE [facility] Comment on above: Performed By: #### D RUGRPD #### [facility] [address] [place] [address] Dr. Claire Mayes CUT-OFFS SEE BELOW Normal [facility] Comment on above: Result Comment: AMP [...] ng/mL Performed By: #### D RUGRPD #### [facility] [address] [place] [address] Dr. Claire Mayes DRUG CUT HEADER DRUG CLASS TEST SYST EM CUT-OFF CONCENTRATIONS ARE FOLLOWS: Normal [facility] Comment on above: Performed By: #### D RUGRPD #### [facility] [address] [place] [address] Dr. Claire Mayes mAMP Negative Normal NEGATIVE [facility] Comment on above: Performed By: #### D RUGRPD #### [facility] [address] [place] [address] Dr. Claire Mayes MTD Negative Normal NEGATIVE [facility] Comment on above: Performed By: #### D RUGRPD #### [facility] [address] [place] [address] Dr. Claire Mayes OPI Negative Normal NEGATIVE [facility] Comment on above: Performed By: #### D RUGRPD #### [facility] [address] [place] [address] Dr. Claire Mayes OXY Negative Normal NEGATIVE [facility] Comment on above: Performed By: #### D RUGRPD #### [facility] [address] [place] [address] Dr. Claire Mayes PCP Negative Normal NEGATIVE [facility] Comment on above: Performed By: #### D RUGRPD #### [facility] [address] [place] [address] Dr. Claire Mayes PPX Negative Normal NEGATIVE [facility] Comment on above: Performed By: #### D RUGRPD #### [facility] [address] [place] [address] Dr. Claire Mayes TCA Negative Normal NEGATIVE [facility] Comment on above: Performed By: #### D RUGRPD #### [facility] [address] [place] [address] Dr. Claire Mayes THC Negative Normal NEGATIVE [facility] Comment on above: Performed By: #### D RUGRPD #### [facility] [address] [place] [address] Dr. Claire Mayes TYPE AND SCREENon 02-18-2022 TYPE AND SCREEN Negative Normal [facility] Comment on above: Performed By: #### T NS #### [facility] [address] [place] [address] Dr. Claire Mayes US PREG BIOPHY W [...] JESSE THOMAS Date: 2022-02-17 14:27 Normal [facility] US PREG BIOPHY W NON STRESSo n [...] BLU FELIPE Date: 2022-02-10 16:40 Normal [facility] GROUP B STREP CULTUREon 01-14 S. agalactiae Ag Ql (Unsp spec) Culture Observations: Beta Strep called to Belgica Lange at office 02/04/22 @[address] [place] [address] Isolate 1 Streptococcus agalactiae Heavy growth of ORGANISM 1 Streptococcus agalactiae ANTIBIOTIC M.I.C RX STATUS Benzylpenicillin <=0.06 S F Ampicillin <=0.25 S F Cefotaxime <=0.12 S F Ceftriaxone <=0.12 S F Levofloxacin 0.5 S F Erythromycin 2 R F Clindamycin <=0.25 S F Linezolid <=2 S F Vancomycin 0.5 S F Tetracycline >=16 R F Normal [facility] Comment on above: Performed By: #### G BSCX #### [facility] [address] [place] [address] Dr. Claire Mayes US PREG BIOPHY W [...] THOMAS Date: 2022-02-03 16:02 Normal [facility] LMPon 06-19-2021 Last menstrual period start date [id number] DN-TBKFT-Fzryu n 310 IVF Work Phone: CARD PROCESSING CLERK - Office Visiton CARD PROCESSING CLERK - Office Visit Diagnoses/Problems Assessed Irregular menses (626.4) (N92.6) Female infertility (628.9) (N97.9) Protein S deficiency (289.81) (D68.59) Occupation [employer] ED Provider Impressions 30 year-old desires [...] ] Imaging: Saline US, can do at [facility] [x ] Vitamin D, TSH, prolactin [ [...] pandemic. Verbal consent obtained for telemedicine visit. Guru.oh History of Present IllnessIVF Consult: Patient is [...] contour on HSG - images reviewed from [facility] 08/2018 Uterine Cavity Evaluation: Normal uterine cavity [...] Peak E2 1871--> IM P4--> successful IUP CHECKER Hx: LMP: 05/29/21 Menstrual cycles: Have been fairly regular for the past 3 months; 30-35 days Pap smear: 2019, up to date Mammogram: None PMH/Surg Hx/Social Hx: See below Hx of Clotting disorders: Yes- Protein S deficiency Currently on Lovenox 40 mg daily Was on Lovenox 60 mg daily prior to Needs to be on therapeutic dosing when Genetic Screening Hx: Active [employer] screen negative Partner History: Franklin Ashley 04/09/1990 SA in past year: 2.8 cc 125 mil/mL 69% motility YLW=264 million (recent IUI sample) Morph from original SA was 2.8% Active Problems Problems 16 weeks gest (more content not included)... Normal [employer] CBC AND DIFFERENTIALon 08-06 % AUTOMATED IMMATURE GRAN 0.3 % Normal 0.0 - 0.9 [facility] [place] on above: Result Comment: Graciela ture Granulocyte Count (IG) includes promyelocytes, myelocytes and metamyelocytes but does not include bands. Percent differential counts (%) should be interpreted in the context of the absolute cell counts (cells/L). Performed By: #### C BCDF #### [address] [place] [address] Basophils (Bld) [#/Vol] 0.09 10*3/uL Normal 0.00 - 0.10 [facility] [place] on above: Performed By: #### C BCDF #### [address] [place] [address] Basophils/100 WBC (Bld) 0.9 % Normal 0.0 - 2.0 [facility] Comment on above: Performed By: #### C BCDF #### [address] [place] [address] Eosinophils (Bld) [#/Vol] 0.23 10*3/uL Normal 0.00 - 0.70 [facility] [place] on above: Performed By: #### C BCDF #### [address] [place] [address] Eosinophils/100 WBC (Bld) 2.4 % Normal 0.0 - 6.0 [facility] Comment on above: Performed By: #### C BCDF #### [address] [place] [address] Erythrocyte distribution width (RBC) [Ratio] 14.3 % Normal 11.5 - 14.5 [facility] Comment on above: Performed By: #### C BCDF #### [address] [place] [address] Hematocrit (Bld) [Volume fraction] 40.4 % Normal 36.0 - 46.0 [facility] Comment on above: Performed By: #### C BCDF #### [address] [place] [address] Hemoglobin (Bld) [Mass/Vol] 12.9 g/dL Normal 12.0 - 16.0 [facility] [place] on above: Performed By: #### C BCDF #### [address] [place] [address] Lymphocytes (Bld) [#/Vol] 2.44 10*3/uL Normal 1.20 - 4.80 [facility] [place] on above: Performed By: #### C BCDF #### [address] [place] [address] Lymphocytes/100 WBC (Bld) 25.7 % Normal 13.0 - 44.0 [facility] Comment on above: Performed By: #### C BCDF #### [address] [place] [address] MCHC (RBC) [Mass/Vol] 31.9 g/dL Low 32.0 - 36.0 [facility] Comment on above: Performed By: #### C BCDF #### [address] [place] [address] MCV (RBC) [Entitic vol] 88 fL Normal 80 - 100 [facility] Comment on above: Performed By: #### C BCDF #### [address] [place] [address] Monocytes (Bld) [#/Vol] 0.55 10*3/uL Normal 0.10 - 1.00 [facility] Comment on above: Performed By: #### C BCDF #### [address] [place] [address] Monocytes/100 WBC (Bld) 5.8 % Normal 2.0 - 10.0 [facility] Comment on above: Performed By: #### C BCDF #### [address] [place] [address] Neutrophils (Bld) [#/Vol] 6.15 10*3/uL Normal 1.20 - 7.70 [facility] Comment on above: Performed By: #### C BCDF #### [address] [place] [address] Neutrophils/100 WBC (Bld) 64.9 % Normal 40.0 - 80.0 [facility] [place] on above: Performed By: #### C BCDF #### [address] [place] [address] Platelets (Bld) [#/Vol] 410 10*3/uL Normal 150 - 450 [facility] Comment on above: Performed By: #### C BCDF #### [address] [place] [address] RBC (Bld) [#/Vol] 4.58 x10E12/L Normal 4.00 - 5.20 [facility] [place] on above: Performed By: #### C BCDF #### [address] [place] [address] WBC (Bld) [#/Vol] 9.5 10*3/uL Normal 4.4 - 11.3 [facility] Comment on above: Performed By: #### C BCDF #### [address] [place] [address] CARD PROCESSING CLERK - Visiton 08-06-2020 CARD PROCESSING CLERK - Visit Chief Complaint The patient is [...] with LMWH and has follow-up with her Stunt Man 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 Reports her asthma is stable. [...] or homicidal ideation Vitals Vital Signs Recorded: [id number] 01:08PM Heart Rate62 Lrdvvykq619 Lhfmvwmvu83 Height5 ft 2 in Pqvbym062 lb BMI Uvqgjjutah52.28 BSA Calculated1.79 Tobacco Useb) No Fall Screeninga) [...] ongoing well-woman care with her current local [facility]. She has Hematology follow-up today following our [...] Aug 06 2020 2:00PM EST (Author) Normal [employer] Complete Blood Count + Diffe marc 06-27-2020 Basophils/100 WBC (Bld) 0.5 % 0.0 - 2.0 YX-JKIKI-Ahcno [address] Work Phone: Eosinophils (Bld) [#/Vol] 0.24 {x10E9/L} See Below GS-SNBPD-Vvqvb wn 2nd Fl Work Phone: Comment on above: Reference Range: 0.0 0 - 0.70 Eosinophils/100 WBC (Bld) 1.1 % 0.0 - 6.0 XK-SHCGZ-Ovgew wn [facility] Fl Work Phone: Erythrocyte distribution width (RBC) [Ratio] 15.0 % above high threshold See Below JS-OLSLK-Bklqe wn 2nd Fl Work Phone: Comment on above: Reference Range: 11. 5 - 14.5 Hematocrit (Bld) [Volume fraction] 30.0 % below low threshold See Below CQ-OJSIT-Zpayz wn 2nd Fl Work Phone: Comment on above: Reference Range: 36. 0 - 46.0 Hemoglobin (Bld) [Mass/Vol] 9.8 g/dL below low threshold See Below CR-PZAEA-Nekes wn 2nd Fl Work Phone: Comment on above: Reference Range: 12. 0 - 16.0 Lymphocytes (Bld) [#/Vol] 2.25 {x10E9/L} See Below PY-KIIHL-Rsaed wn 2nd Fl Work Phone: Comment on above: Reference Range: 1.2 0 - 4.80 Lymphocytes/100 WBC (Bld) 10.4 % See Below AZ-BGUEV-Sanif wn 2nd Fl Work Phone: Comment on above: Reference Range: 13. 0 - 44.0 MCHC (RBC) [Mass/Vol] 32.7 g/dL See Below MV-DQFDQ-Vqzfq wn 2nd Fl Work Phone: Comment on above: Reference Range: 32. 0 - 36.0 MCV (RBC) [Entitic vol] 91 fL 80 - 100 ZO-KLSNC-Njegg wn 2nd Fl Work Phone: Monocytes (Bld) [#/Vol] 0.84 {x10E9/L} See Below EY-APLZS-Mqeos wn 2nd Fl Work Phone: Comment on above: Reference Range: 0.1 0 - 1.00 Monocytes/100 WBC (Bld) 3.9 % 2.0 - 10.0 GM-HTCGU-Jmxnz wn 2nd Fl Work Phone: Neutrophils/100 WBC (Bld) 82.7 % See Below GU-FWXRN-Nohtu wn 2nd Fl Work Phone: Comment on above: Reference Range: 40. 0 - 80.0 Platelets (Bld) [#/Vol] 225 {x10E9/L} 150 - 450 EJ-DWVQO-Ltwkd wn 2nd Fl Work Phone: RBC (Bld) [#/Vol] 3.31 {x10E12/L} below low threshold See Below AZ-YCBNK-Xkvai wn 2nd Fl Work Phone: Comment on above: Reference Range: 4.0 0 - 5.20 WBC (Bld) [#/Vol] 0.0 {/100_WBC} 0.0-0.0 MG- OBGYN-[address] Work Phone: WBC (Bld) [#/Vol] 21.6 {x10E9/L} above high threshold 4.4 - 11.3 QK-PHBEL-Hkcrf wn 2nd Fl Work Phone: Complete Blood Count + Differential 0.11 {x10E9/L} above high threshold See Below IP-MKSTL-Ikddb wn 2nd Fl Work Phone: Comment on above: Reference Range: 0.0 0 - 0.10 Complete Blood Count + Differential 1.4 % above high threshold 0.0 - 0.9 FO-VIEBW-Ylfte[address] Work Phone: Comment on above: Immature Granulocyte Count (IG) includes promyelocytes, myelocytes and metamyelocytes but does not include bands. Percent differential counts (%) should be interpreted in the context of the absolute cell counts (cells/L). Complete Blood Count + Differential 17.85 {x10E9/L} above high threshold See Below FD-EQELP-Pqabb wn 2nd Fl Work Phone: Comment on above: Reference Range: 1.2 0 - 7.70 Hematologyon 06-26-2020 Hematocrit (Bld) [Volume fraction] 30.5 % below low threshold See Below KV-SNZZY-Zbfbv wn 2nd Fl Work Phone: Comment on above: Reference Range: 36. 0 - 46.0 Hemoglobin (Bld) [Mass/Vol] 10.7 g/dL below low threshold See Below OW-BFIPC-Uejei wn 2nd Fl Work Phone: Comment on above: Reference Range: 12. 0 - 16.0 MCV (RBC) [Entitic vol] 84 fL 80 - 100 AE-RCVLQ-Unshj wn 2nd Fl Work Phone: Platelets (Bld) [#/Vol] 258 {x10E9/L} 150 - 450 JE-DLMUI-Yqfrw wn 2nd Fl Work Phone: RBC (Bld) [#/Vol] 3.62 {x10E12/L} below low threshold See Below RN-LAQVO-Zwfsf wn 2nd Fl Work Phone: Comment on above: Reference Range: 4.0 0 - 5.20 WBC (Bld) [#/Vol] 0.0 {/100_WBC} 0.0-0.0 MG- OBGYN-Midto wn 2nd Fl Work Phone: WBC (Bld) [#/Vol] 35.7 {x10E9/L} above high threshold 4.4 - 11.3 TD-LJOSF-Xwpvn wn 2nd Fl Work Phone: Otheron 06-26-2020 Erythrocyte distribution width (RBC) [Ratio] 14.6 % above high threshold See Below KS-GDCDI-Vofuz wn 2nd Fl Work Phone: Comment on above: Reference Range: 11. 5 - 14.5 MCHC (RBC) [Mass/Vol] 35.1 g/dL See Below PJ-IMYFP-Whstt wn 2nd Fl Work Phone: Comment on [...] 3.5 cm, located 1.0 cm from themargin. Bd Special Education Teacher sections are submitted in 5 cassettes.AXQ/LMPSummary of Cassettes:Specimen Label SiteA 1 umbilical cord sections 2 membrane rolls 3 placental parenchyma, umbilical cord insertion site 4 placental parenchyma 5 placental parenchyma, lesionaxq/06/26/2020 LI-ILGPL-Psfbv wn [facility] Fl Work Phone: Coronavirus 2019 RNA by PCR, Symptomaticon 06-25-2020 Coronavirus 2019 RNA by PCR, Symptomatic NOT DETECTED See Below [address] Work Phone: Comment on above: SOURCE: [...] this test method. Fact sheet for providers: www.fda.gov/media/740950/downloadFact sheet for patients: www.[employer].gov/ABS/118735/downloadThis test has received FDA Emergency Use Authorization (EUA) and has been verified by [facility] ([facility]). This test is only authorized for the duration of time that circumstances exist to justify the authorization of the emergency use of in vitro diagnostic tests for the detection of SARS-CoV-2 virus and/or diagnosis of COVID-19 infection under section 564(b)(1) of the Act, 21 U.S.C. 360bbb-3(b)(1), unless the authorization is terminated or revoked sooner. [facility] is certified under CLIA-88 as qualified to perform high complexity testing. Testing is performed in the [facility] laboratories located at [address] [place] [address]. Hematologyon 06-25-2020 ABO group Nom (Bld) A [address] Work Phone: Blood group antibody screen Ql Negative [address] Work Phone: Hematocrit (Bld) [Volume fraction] 34.7 % below low threshold See Below [address] Work Phone: Comment on above: Reference Range: 36. 0 - 46.0 Hemoglobin (Bld) [Mass/Vol] 11.6 g/dL below low threshold See Below MP-FHNYR-Wjgiz[address] Work Phone: Comment on above: Reference Range: 12. 0 - 16.0 MCV (RBC) [Entitic vol] 90 fL 80 - 100 NZ-MBQIC-Dvpui wn 2nd Fl Work Phone: Platelets (Bld) [#/Vol] 268 {x10E9/L} 150 - 450 UA-MQPCR-Clclv wn 2nd Fl Work Phone: RBC (Bld) [#/Vol] 3.85 {x10E12/L} below low threshold See Below WT-CLDLC-Eeoyv wn 2nd Fl Work Phone: Comment on above: Reference Range: 4.0 0 - 5.20 Rh immune globulin screen (Bld) [Interp] Positive UJ-RTXHF-Hbalt wn 2nd Fl Work Phone: WBC (Bld) [#/Vol] 0.0 {/100_WBC} 0.0-0.0 MG- OBGYN-[address] Work Phone: WBC (Bld) [#/Vol] 15.5 {x10E9/L} above high threshold 4.4 - 11.3 KG-GEGCF-Syyby wn 2nd Fl Work Phone: Otheron 06-25-2020 Erythrocyte distribution width (RBC) [Ratio] 14.4 % See Below XN-ZDUWM-Zyieo wn 2nd Fl Work Phone: Comment on above: Reference Range: 11. 5 - 14.5 MCHC (RBC) [Mass/Vol] 33.4 g/dL See Below XJ-NXCGU-Ihxem wn 2nd Fl Work Phone: Comment on above: Reference Range: 32. 0 - 36.0 SYPHILIS SCREENING WITH REFL EXon 06-25-2020 T. pallidum IgG+IgM IA Ql (S) NONREACTIVE See Below NG-WROIS-[facility] Fl Work Phone: Comment on above: SOURCE: Reference Ra nge: NONREACTIVENo significant level of Treponema pallidum antibody detected. Repeat testing in 2 to 4 weeks may be considered if early infection or incubating syphilis infection is suspected. Imm/Pathon 06-07-2020 Bacteria identified Aer cx Nom (Genital specimen) PATIENT: KIARA ASHLEY [place] [facility] [place] [place] [id number] : 89 AGE: SEX: F ORDERED BY: PARAS GUEVARA: VAGINAL COLLECTED: 06/07/20 09:36ANTIBIOTICS AT [place]RIEN[place].: RECEIVED : 06/08/20 07:27SITE: VAGINAL R E S U L T S GROUP B STREP SCREEN PRELIM 06/09/20 08:35 CULTURE IN PROGRESS. PD-LWRLB-EZB [address] [place] Work Phone: Bacteria identified Aer cx Nom (Genital specimen) PATIENT: KIARA ASHLEY [place]ATION: [facility] [place] BILL#: [id number] : 89 AGE: SEX: F ORDERED BY: PARAS GUEVARA: VAGINAL COLLECTED: 06/07/20 09:36ANTIBIOTICS AT [place]EN[place].: RECEIVED : 06/08/20 07:27SITE: VAGINAL R E S U L T S GROUP B STREP SCREEN FINAL 06/10/20 11:54 NEGATIVE FOR GROUP B BETA STREP. LK-NPVAU-Mopan wn 2nd Fl Work Phone: Otheron 06-07-2020 [...] growth-No malformations were identified on a limited survey-[facility] 06/22 The patient is aware of the [...] signed by: RILEY TREVIÑO 06/07/20 09:33 Normal LK-GGIPI-OJD 1200 [place] Work Phone: Comment on above: ORDER REVISED TO A O B FOLLOW UP OR REPEAT SCAN BY RADIOLOGIST; Original Order Number: [id number] CBC AND DIFFERENTIALon 04-24 % AUTOMATED IMMATURE GRAN 1.9 % High 0.0 - 0.9 [facility] [place] on [place]: Result Comment: Graciela ture Granulocyte Count (IG) includes promyelocytes, myelocytes and metamyelocytes but does not include bands. Percent differential counts (%) should be interpreted in the context of the absolute cell counts (cells/L). Performed By: #### C BCDF #### [address] [place] [address] Basophils (Bld) [#/Vol] 0.08 10*3/uL Normal 0.00 - 0.10 [facility] [place] on above: Performed By: #### C BCDF #### [address] [place] [address] Basophils/100 WBC (Bld) 0.5 % Normal 0.0 - 2.0 [facility] [place] on above: Performed By: #### C BCDF #### [address] [place] [address] Eosinophils (Bld) [#/Vol] 0.22 10*3/uL Normal 0.00 - 0.70 [facility] [place] on above: Performed By: #### C BCDF #### [address] [place] [address] Eosinophils/100 WBC (Bld) 1.5 % Normal 0.0 - 6.0 [facility] [place] on above: Performed By: #### C BCDF #### [address] [place] [address] Erythrocyte distribution width (RBC) [Ratio] 14.0 % Normal 11.5 - 14.5 [facility] [place] on above: Performed By: #### C BCDF #### [address] [place] [address] Hematocrit (Bld) [Volume fraction] 35.6 % Low 36.0 - 46.0 [facility] [place] on above: Performed By: #### C BCDF #### [address] [place] [address] Hemoglobin (Bld) [Mass/Vol] 11.8 g/dL Low 12.0 - 16.0 [facility] [place] on above: Performed By: #### C BCDF #### [address] [place] [address] Lymphocytes (Bld) [#/Vol] 2.38 10*3/uL Normal 1.20 - 4.80 [facility] [place] on above: Performed By: #### C BCDF #### [address] [place] [address] Lymphocytes/100 WBC (Bld) 16.0 % Normal 13.0 - 44.0 [facility] [place] on above: Performed By: #### C BCDF #### [address] [place] [address] MCHC (RBC) [Mass/Vol] 33.1 g/dL Normal 32.0 - 36.0 [facility] [place] on above: Performed By: #### C BCDF #### [address] [place] [address] MCV (RBC) [Entitic vol] 92 fL Normal 80 - 100 [facility] [place] on above: Performed By: #### C BCDF #### [address] [place] [address] Monocytes (Bld) [#/Vol] 0.74 10*3/uL Normal 0.10 - 1.00 [facility] [place] on above: Performed By: #### C BCDF #### [address] [place] [address] Monocytes/100 WBC (Bld) 5.0 % Normal 2.0 - 10.0 [facility] [place] on above: Performed By: #### C BCDF #### [address] [place] [address] Neutrophils (Bld) [#/Vol] 11.17 10*3/uL High 1.20 - 7.70 [facility] [place] on above: Performed By: #### C BCDF #### [address] [place] [address] Neutrophils/100 WBC (Bld) 75.1 % Normal 40.0 - 80.0 [facility] [place] on above: Performed By: #### C BCDF #### [address] [place] [address] Platelets (Bld) [#/Vol] 285 10*3/uL Normal 150 - 450 [facility] [place] Comment on above: Performed By: #### C BCDF #### [address] [place] [address] RBC (Bld) [#/Vol] 3.89 x10E12/L Low 4.00 - 5.20 [facility] [place] on above: Performed By: #### C BCDF #### [address] [place] [address] WBC (Bld) [#/Vol] 14.9 10*3/uL High 4.4 - 11.3 [facility] [place] on above: Performed By: #### C BCDF #### [address] [place] [address] COMPREHENSIVE PANELon 2019 ALP [Catalytic activity/Vol] 79 U/L Normal 33 - 110 [facility] [place] Comment on above: Performed By: #### C MP #### [address] [place] [address] [facility] [address] [place] [address] ALT [Catalytic activity/Vol] 7 U/L Normal 7 - 45 [facility] [place] Comment on above: Result Comment: Melida ents treated with Sulfasalazine may generate falsely decreased results for ALT. Performed By: #### C MP #### [address] [place] [address] [place] [address] AST [Catalytic activity/Vol] 13 U/L Normal 9 - 39 [facility] [place] Comment on above: Performed By: #### C MP #### [address] [place] [address] [place] [address] Bilirubin [Mass/Vol] 0.3 mg/dL Normal 0.0 - 1.2 [facility] [place] Comment on above: Performed By: #### C MP #### [address] [place] [address] [place] [address] Protein [Mass/Vol] 5.9 g/dL Low 6.4 - 8.2 [facility] [place] Comment on above: Performed By: #### C MP #### [address] [place] [address] [place] [address] Anion gap [Moles/Vol] 12 mmol/L Normal 10 - 20 [facility] [place] Comment on above: Performed By: #### C MP #### [address] [place] [address] [place] [address] Chloride [Moles/Vol] 106 mmol/L Normal 98 - 107 [facility] [place] Comment on above: Performed By: #### C MP #### [address] [place] [address] [place] [address] Potassium [Moles/Vol] 3.7 mmol/L Normal 3.5 - 5.3 [facility] [place] Comment on above: Performed By: #### C MP #### [address] [place] [address] [place] [address] Sodium [Moles/Vol] 137 mmol/L Normal 136 - 145 [facility] [place] Comment on above: Performed By: #### C MP #### [address] [place] [address] [place] [address] Calcium [Mass/Vol] 9.2 mg/dL Normal 8.6 - 10.3 [facility] [place] Comment on above: Performed By: #### C MP #### [address] [place] [address] [place] [address] Glucose [Mass/Vol] 95 mg/dL Normal 74 - 99 [facility] [place] Comment on above: Performed By: #### C MP #### [address] [place] [address] [place] [address] Urea nitrogen [Mass/Vol] 7 mg/dL Normal 6 - 23 [facility] [place] Comment on above: Performed By: #### C MP #### [address] [place] [address] [place] [address] Albumin [Mass/Vol] 3.4 g/dL Normal 3.4 - 5.0 [facility] [place] on above: Performed By: #### C MP #### [address] [place] [address] [place] [address] Creatinine [Mass/Vol] 0.70 mg/dL Normal 0.50 - 1.05 [facility] [place] on above: Performed By: #### C MP #### [address] [place] [address] [place] [address] GFR- AM. >60 Normal >60 [facility] [place] on above: Result Comment: CALC ULATIONS OF ESTIMATED GFR ARE PERFORMED USING THE MDRD STUDY EQUATION FOR THE IDMS-TRACEABLE CREATININE METHODS. CLIN CHEM 2007;53:766-72 Performed By: #### C MP #### [address] [place] [address] [place] [address] GFR-NON AM. >60 Normal >60 [facility] [place] on above: Performed By: #### C MP #### [address] [place] [address] [place] [address] HCO3 (Bld) [Moles/Vol] 23 mmol/L Normal 21 - 32 [facility] [place] Comment on above: Performed By: #### C MP #### [address] [place] [address] [place] [address] FERRITINon 04-24-2020 Ferritin [Mass/Vol] 8 ug/L Normal 8 - 150 [facility] [place] Comment on above: Performed By: #### F ERRI #### [address] [place] [address] IRON + TIBCon 04-24-2020 % SATURATION 14 % Low 25 - 45 [facility] [place] Comment on above: Performed By: #### I RONT #### [address] [address] Iron [Mass/Vol] 65 ug/dL Normal 35 - 150 [facility] [place] Comment on above: Performed By: #### I RONT #### [address] [place] [address] TIBC 449 ug/dL High 240 - 445 [facility] [place] Comment on above: Performed By: #### I RONT #### [address] [place] [address] Complete Blood Count + Diffe rentialon 02-10-2020 Basophils/100 WBC (Bld) 1.0 % 0.0 - 2.0 QH-EHRGS-IRZ 1200 [place] Work Phone: Eosinophils (Bld) [#/Vol] 0.37 {x10E9/L} See Below VL-FMUNN-MMW 1200 [place] Work Phone: Comment on above: Reference Range: 0.0 0 - 0.70 Eosinophils/100 WBC (Bld) 3.0 % 0.0 - 6.0 TM-IBUGQ-LEQ 1200 [place] Work Phone: Erythrocyte distribution width (RBC) [Ratio] 13.4 % See Below XF-GDTEM-BWP 1200 [place] Work Phone: Comment on above: Reference Range: 11. 5 - 14.5 Hematocrit (Bld) [Volume fraction] 41.8 % See Below IL-IASSU-UAG 1200 [place] Work Phone: Comment on above: Reference Range: 36. 0 - 46.0 Hemoglobin (Bld) [Mass/Vol] 13.6 g/dL See Below ND-DRZVB-XBK 1200 [place] Work Phone: Comment on above: Reference Range: 12. 0 - 16.0 Lymphocytes (Bld) [#/Vol] 2.52 {x10E9/L} See Below TH-BQQVZ-XUN 1200 [place] Work Phone: Comment on above: Reference Range: 1.2 0 - 4.80 Lymphocytes/100 WBC (Bld) 20.2 % See Below MR-TWZXF-NPE 1200 [place] Work Phone: Comment on above: Reference Range: 13. 0 - 44.0 MCHC (RBC) [Mass/Vol] 32.5 g/dL See Below KC-XYEAQ-YZK 1200 [place] Work Phone: Comment on above: Reference Range: 32. 0 - 36.0 MCV (RBC) [Entitic vol] 95 fL 80 - 100 LU-GFXWX-JSM 1200 [place] Work Phone: Monocytes (Bld) [#/Vol] 0.58 {x10E9/L} See Below HS-XHVKH-DRB 1200 [place] Work Phone: Comment on above: Reference Range: 0.1 0 - 1.00 Monocytes/100 WBC (Bld) 4.6 % 2.0 - 10.0 XB-ZSQED-ZMK 1200 [place] Work Phone: Neutrophils/100 WBC (Bld) 70.6 % See Below DD-AAHCV-XUR 1200 [place] Work Phone: Comment on above: Reference Range: 40. 0 - 80.0 Platelets (Bld) [#/Vol] 372 {x10E9/L} 150 - 450 EX-GGMIE-DXE 1200 [place] Work Phone: RBC (Bld) [#/Vol] 4.40 {x10E12/L} See Below MG -OBGYN-MAC 1200 [place] Work Phone: Comment on above: Reference Range: 4.0 0 - 5.20 WBC (Bld) [#/Vol] 0.0 {/100_WBC} 0.0-0.0 MG- OBGYN-MAC 1200 [place] Work Phone: WBC (Bld) [#/Vol] 12.7 {x10E9/L} above high threshold 4.4 - 11.3 PW-SPHGE-BFT 1200 [place] Work Phone: Comment on above: SOURCE: Complete Blood Count + Differential 8.81 {x10E9/L} above high threshold See Below OV-TRALW-SYR 1200 [place] Work Phone: Comment on above: Reference Range: 1.2 0 - 7.70 Complete Blood Count + Differential 0.6 % 0.0 - 0.9 LA-AJGYQ-DTA 1200 [place] Work Phone: Comment on above: Percent differential counts (%) should be interpreted in the context of the absolute cell counts (cells/L). Complete Blood Count + Differential 0.13 {x10E9/L} above high threshold See Below JN-YDGGI-FZZ 1200 [place] Work Phone: Comment on above: Reference Range: 0.0 0 - 0.10 Cult, Urineon 12-25-2019 Bacteria identified Cx Nom (U) PATIENT: KIARA ASHLEY LOCATION: C0646 BILL#: [id number] : 89 AGE: SEX: F ORDERED BY: PARAS GUEVARA: URINE COLLECTED: 12/25/19 09:41ANTIBIOTICS AT [facility].: RECEIVED : 12/25/19 17:06SITE: Clean Catch/Voided R E S U L T S URINE CULTURE,BACTERIAL FINAL 12/26/19 10:21 NO SIGNIFICANT GROWTH. PQ-DBUWG-VJY 1200 [place] Work Phone: Hematologyon 12-25-2019 ABO group Nom (Bld) A HQ-HZXRY-MRR 1200 [place] Work Phone: Blood group antibody screen Ql Negative YR-PCWRU-GJF 1200 [place] Work Phone: Rh immune globulin screen (Bld) [Interp] Positive ZC-KHJUZ-AOR 1200 [place] Work Phone: Hepatitis B Surface Antigeno n 12-25-2019 Hepatitis B Surface Antigen NONREACTIVE See Below FA-XXXBS-EZI 1200 [place] Work Phone: Comment on above: [...] Hepatitis C Antibody Test NON-REACTIVE See Below CV-TBOYQ-YLH 1200 [place] Work Phone: Comment on above: SOURCE: Reference Ra nge: NONREACTIVE Patients receiving more than 5 mg/day of biotin may have interference in test results. A sample should be taken no sooner than eight hours after previous dose. Contact the testing laboratory for additional information. Metabolic Panelon 12-25-2019 ALP [Catalytic activity/Vol] 67 U/L 33 - 110 PH-EAIXI-JCM 1200 [place] Work Phone: Anion gap [Moles/Vol] 15 mmol/L 10 - 20 OQ-MMAQK-KWE 1200 [place] Work Phone: Bilirubin [Mass/Vol] 0.3 mg/dL 0.0 - 1.2 PA-ARIIY-BKW 1200 [place] Work Phone: Calcium [Mass/Vol] 9.6 mg/dL 8.6 - 10.6 AD-YWUCG-BTJ 1200 [place] Work Phone: Chloride [Moles/Vol] 104 mmol/L 98 - 107 AR-VSJLW-ZNG 1200 [place] Work Phone: CO2 [Moles/Vol] 21 mmol/L 21 - 32 MG-OBGYN- MAC 1200 [place] Work Phone: Creatinine [Mass/Vol] 0.69 mg/dL See Below PN-OUKGL-FIA 1200 [place] Work Phone: Comment on above: Reference Range: 0.5 0 - 1.05 Glucose [Mass/Vol] 83 mg/dL 74 - 99 ZE-XNVMJ-XFD 1200 [place] Work Phone: Comment on above: SOURCE: Potassium [Moles/Vol] 4.1 mmol/L 3.5 - 5.3 AX-HKKIC-NOS 1200 [place] Work Phone: Protein [Mass/Vol] 6.2 g/dL below low threshold 6.4 - 8.2 PV-WYUFX-DSB 1200 [place] Work Phone: Sodium [Moles/Vol] 136 mmol/L 136 - 145 YV-WRPYG-ONA 1200 [place] Work Phone: Urea nitrogen [Mass/Vol] 9 mg/dL 6 - 23 VV-UNKDD-GDN 1200 [place] Work Phone: Otheron 12-25-2019 Albumin BCP dye [Mass/Vol] 3.9 g/dL 3.4 - 5.0 ZM-DZPWS-LKT 1200 [place] Work Phone: ALT With P-5'-P [Catalytic activity/Vol] 8 U/L 7 - 45 RJ-WUIBV-MGJ 1200 [place] Work Phone: Comment on above: Patients treated wit h Sulfasalazine may generate falsely decreased results for ALT. AST With P-5'-P [Catalytic activity/Vol] 11 U/L 9 - 39 GA-OOKQT-HLI 1200 [place] Work Phone: NONE SO-JLQYZ-SJD 1200 [place] Work Phone: >60 >60 WE-EEMZI-KNO 1200 [place] Work Phone: Comment on above: CALCULATIONS OF MARÍA MATED GFR ARE PERFORMED USING THE MDRD STUDY EQUATION FOR THE IDMS-TRACEABLE CREATININE METHODS. CLIN CHEM 2007;53:766-72 SYPHILIS SCREENING WITH REFL EXon 12-25-2019 T. pallidum IgG+IgM IA Ql (S) NONREACTIVE See Below KU-JDLQD-MPR 1200 [place] Work Phone: Comment on above: SOURCE: Reference Ra nge: NONREACTIVENo significant level of Treponema pallidum antibody detected. Repeat testing in 2 to 4 weeks may be considered if early infection or incubating syphilis infection is suspected. CBC AND DIFFERENTIALon 11-21 % AUTOMATED IMMATURE GRAN 0.9 % Normal 0.0 - 0.9 [facility] [place] on above: Result Comment: Perc ent differential counts (%) should be interpreted in the context of the absolute cell counts (cells/L). Performed By: #### C BCDF #### [address] [place] [address] Basophils (Bld) [#/Vol] 0.16 10*3/uL High 0.00 - 0.10 [facility] [place] Comment on above: Performed By: #### C BCDF #### [address] [place] [address] Basophils/100 WBC (Bld) 1.2 % Normal 0.0 - 2.0 [facility] [place] Comment on above: Performed By: #### C BCDF #### [address] [place] [address] Eosinophils (Bld) [#/Vol] 0.80 10*3/uL High 0.00 - 0.70 [facility] [place] Comment on above: Performed By: #### C BCDF #### [address] [place] [address] Eosinophils/100 WBC (Bld) 5.8 % Normal 0.0 - 6.0 [facility] [place] Comment on above: Performed By: #### C BCDF #### [address] [place] [address] Erythrocyte distribution width (RBC) [Ratio] 13.6 % Normal 11.5 - 14.5 [facility] [place] Comment on above: Performed By: #### C BCDF #### [address] [place] [address] Hematocrit (Bld) [Volume fraction] 39.4 % Normal 36.0 - 46.0 [facility] [place] Comment on above: Performed By: #### C BCDF #### [address] [place] [address] Hemoglobin (Bld) [Mass/Vol] 13.0 g/dL Normal 12.0 - 16.0 [facility] [place] Comment on above: Performed By: #### C BCDF #### [address] [place] [address] Lymphocytes (Bld) [#/Vol] 2.24 10*3/uL Normal 1.20 - 4.80 [facility] [place] Comment on above: Performed By: #### C BCDF #### [address] [place] [address] Lymphocytes/100 WBC (Bld) 16.3 % Normal 13.0 - 44.0 [facility] [place] Comment on above: Performed By: #### C BCDF #### [address] [place] [address] MCHC (RBC) [Mass/Vol] 33.0 g/dL Normal 32.0 - 36.0 [facility] [place] Comment on above: Performed By: #### C BCDF #### [address] [place] [address] MCV (RBC) [Entitic vol] 94 fL Normal 80 - 100 [facility] [place] Comment on above: Performed By: #### C BCDF #### [address] [place] [address] Monocytes (Bld) [#/Vol] 0.83 10*3/uL Normal 0.10 - 1.00 [facility] [place] Comment on above: Performed By: #### C BCDF #### [address] [place] [address] Monocytes/100 WBC (Bld) 6.0 % Normal 2.0 - 10.0 [facility] [place] Comment on above: Performed By: #### C BCDF #### [address] [place] [address] Neutrophils (Bld) [#/Vol] 9.60 10*3/uL High 1.20 - 7.70 [facility] [place] Comment on above: Performed By: #### C BCDF #### [address] [place] [address] Neutrophils/100 WBC (Bld) 69.8 % Normal 40.0 - 80.0 [facility] [place] Comment on above: Performed By: #### C BCDF #### [address] [place] [address] Platelets (Bld) [#/Vol] 380 10*3/uL Normal 150 - 450 [facility] [place] Comment on above: Performed By: #### C BCDF #### [address] [place] [address] RBC (Bld) [#/Vol] 4.21 x10E12/L Normal 4.00 - 5.20 [facility] [place] Comment on above: Performed By: #### C BCDF #### [address] [place] [address] WBC (Bld) [#/Vol] 13.8 10*3/uL High 4.4 - 11.3 [facility] [place] on above: Performed By: #### C BCDF #### [address] [place] [address] Complete Blood Count + Diffe fannytialon 11-14-2019 Basophils (Bld) [#/Vol] 0.05 {x10E9/L} See Below [facility] Work [facility]: Comment on above: Reference Range: 0.0 0 - 0.10 Basophils/100 WBC (Bld) 0.4 % 0.0 - 2.0 MP-Reproductiv e Endocrinology- [place] Work Phone: Eosinophils (Bld) [#/Vol] 0.89 {x10E9/L} above high threshold See Below MP-Reproductiv e Endocrinology- [place] Work Phone: Comment on above: Reference Range: 0.0 0 - 0.70 Eosinophils/100 WBC (Bld) 7.3 % 0.0 - 6.0 MP-Reproductiv e Endocrinology- [place] Work Phone: Erythrocyte distribution width (RBC) [Ratio] 13.9 % See Below MP-Reproductiv e Endocrinology- [place] Work Phone: Comment on above: Reference Range: [...] 2.13 {x10E9/L} See Below MP-Reproductiv e Endocrinology- [place] Work Phone: Comment on above: Reference Range: 1.2 0 - 4.80 Lymphocytes/100 WBC (Bld) 17.5 % See Below MP-Reproductiv e Endocrinology- [place] Work Phone: Comment on above: Reference Range: [...] 69.4 % See Below MP-Reproductiv e Endocrinology- [place] Work Phone: Comment on above: Reference Range: 40. 0 - 80.0 Platelets (Bld) [#/Vol] 423 {x10E9/L} 150 - 450 MP-Reproductiv e Endocrinology- [place] Work Phone: RBC (Bld) [#/Vol] 4.15 {x10E12/L} See Below MP -Reproductiv e Endocrinology- [place] Work Phone: Comment on above: Reference Range: 4.0 0 - 5.20 WBC (Bld) [#/Vol] 12.2 {x10E9/L} above high threshold 4.4 - 11.3 MP-Reproductiv e Endocrinology- [place] Work Phone: WBC (Bld) [#/Vol] 0.0 {/100_WBC} 0.0-0.0 MP- Reproductiv e Endocrinology- [place] Work Phone: Complete Blood Count + Differential 0.5 % 0.0 - 0.9 MP-Reproductiv e Endocrinology- [place] Work Phone: Comment on above: Percent differential counts (%) should be interpreted in the context of the absolute cell counts (cells/L). Complete Blood Count + Differential 8.42 {x10E9/L} above high threshold See Below MP-Reproductiv e Endocrinology- [place] Work Phone: Comment on above: Reference Range: 1.2 0 - 7.70 Metabolic Panelon 11-14-2019 ALP [Catalytic activity/Vol] 82 U/L 33 - 110 MP-Reproductiv e Endocrinology- [place] Work Phone: Anion gap [Moles/Vol] 19 mmol/L 10 - 20 MP-Reproductiv e Endocrinology- [place] Work Phone: Bilirubin [Mass/Vol] 0.4 mg/dL 0.0 - 1.2 MP-Reproductiv e Endocrinology- [place] Work Phone: Calcium [Mass/Vol] 9.5 mg/dL 8.6 - 10.6 MP-Reproductiv e Endocrinology- [place] Work Phone: Chloride [Moles/Vol] 100 mmol/L 98 - 107 MP-Reproductiv e Endocrinology- [place] Work Phone: CO2 [Moles/Vol] 20 mmol/L below low threshold 21 - 32 MP-Reproductiv e Endocrinology- [place] Work Phone: Creatinine [Mass/Vol] 0.80 mg/dL See Below MP-Reproductiv e Endocrinology- [place] Work Phone: Comment on above: Reference Range: 0.5 0 - 1.05 Glucose [Mass/Vol] 86 mg/dL 74 - 99 MP-Reproductiv e Endocrinology- [place] Work Phone: Potassium [Moles/Vol] 4.3 mmol/L 3.5 - 5.3 MP-Reproductiv e Endocrinology- [place] Work Phone: Protein [Mass/Vol] 5.8 g/dL below low threshold 6.4 - 8.2 MP-Reproductiv e Endocrinology- [place] 206 Work Phone: Sodium [Moles/Vol] 135 mmol/L below low threshold 136 - 145 MP-Reproductiv e Endocrinology- [place] Work Phone: Urea nitrogen [Mass/Vol] 10 mg/dL 6 - 23 MP-Reproductiv e Endocrinology- [place] Work Phone: Otheron 11-14-2019 Albumin BCP dye [Mass/Vol] 3.5 g/dL 3.4 - 5.0 MP-Reproductiv e [facility] Work Phone: ALT With P-5'-P [Catalytic activity/Vol] 17 U/L 7 - 45 MP-Reproductiv e [facility] Work Phone: Comment on above: Patients treated wit h Sulfasalazine may generate falsely decreased results for ALT. AST With P-5'-P [Catalytic activity/Vol] 22 U/L 9 - 39 MP-Reproductiv e [facility] Work Phone: >60 >60 MP-Reproductiv e [facility] Work Phone: Comment on above: CALCULATIONS OF MARÍA MATED GFR ARE PERFORMED USING THE MDRD STUDY EQUATION FOR THE IDMS-TRACEABLE CREATININE METHODS. CLIN CHEM 2007;53:766-72 CBCon 11-09-2019 Erythrocyte distribution width (RBC) [Ratio] 13.7 % See Below IP-QVEFN-Czytl n 310 [facility] Work Phone: Comment on above: Performed By: #### L H #### [facility] [address] [place] [address] Reference Range: 11. 5 - 14.5 Hematocrit (Bld) [Volume fraction] 41.9 % See Below XD-XCIDF-Yfjov n 310 [facility] Work Phone: Comment on above: Performed By: #### L H #### [facility] [address] [place] [address] Reference Range: 36. 0 - 46.0 Hemoglobin (Bld) [Mass/Vol] 14.0 g/dL See Below UI-GKZVX-Uyncb n 310 [facility] Work Phone: Comment on above: Performed By: #### L H #### [facility] [address] [place] [address] Reference Range: 12. 0 - 16.0 MCHC (RBC) [Mass/Vol] 33.4 g/dL See Below GJ-HCVSU-Supxn n 310 [facility] Work Phone: Comment on above: Performed By: #### L H #### [facility] [address] [place] [address] Reference Range: 32. 0 - 36.0 MCV (RBC) [Entitic vol] 94 fL 80 - 100 [id number]-[id number] n 310 IVF Work Phone: Comment on above: Performed By: #### L H #### [facility] [address] [place] [id number] Platelets (Bld) [#/Vol] 411 10*3/uL Normal 150 - 450 [facility] Comment on above: Performed By: #### L H #### [facility] [address] [place] [id number] RBC (Bld) [#/Vol] 4.44 x10E12/L Normal 4.00 - 5.20 [facility] Comment on above: Performed By: #### L H #### [facility] [address] [place] [id number] WBC (Bld) [#/Vol] 12.4 10*3/uL High 4.4 - 11.3 [facility] Comment on above: Performed By: #### L H #### [facility] [address] [place] [id number] COMPREHENSIVE PANELon 2018 Albumin [Mass/Vol] 3.8 g/dL Normal 3.4 - 5.0 [facility] Comment on above: Performed By: #### L H #### [facility] [address] [place] [id number] ALP [Catalytic activity/Vol] 51 U/L 33 - 110 [id number]-Rdasb n 310 IVF Work Phone: Comment on above: Performed By: #### L H #### [facility] [address] [place] [id number] ALT [Catalytic activity/Vol] 12 U/L Normal 7 - 45 [facility] Comment on above: Result Comment: Melida ents treated with Sulfasalazine may generate falsely decreased results for ALT. Performed By: #### L H #### [facility] [address] [place] [id number] Anion gap [Moles/Vol] 13 mmol/L 10 - 20 [id number]-Sledc n 310 IVF Work Phone: Comment on above: Performed By: #### L H #### [facility] [address] [place] [id number] AST [Catalytic activity/Vol] 12 U/L Normal 9 - 39 [facility] Comment on above: Performed By: #### L H #### [facility] [address] [place] [address] Bilirubin [Mass/Vol] 0.4 mg/dL 0.0 - 1.2 FL-YFOXM-Njnii n 310 IVF Work Phone: Comment on above: Performed By: #### L H #### [facility] [address] [place] [address] Calcium [Mass/Vol] 9.3 mg/dL 8.6 - 10.3 JJ-WGWMN-Hcvtv n 310 IVF Work Phone: Comment on above: Performed By: #### L H #### [facility] [address] [place] [address] Chloride [Moles/Vol] 102 mmol/L 98 - 107 OV-GDEDW-Tjonj n 310 IVF Work Phone: Comment on above: Performed By: #### L H #### [facility] [address] [place] [address] Creatinine [Mass/Vol] 0.89 mg/dL See Below IT-OUUFR-Uxjyv n 310 IVF Work Phone: Comment on above: Performed By: #### L H #### [facility] [address] [place] [id number] Reference Range: 0.5 0 - 1.05 GFR- AM. >60 Normal >60 [facility] Comment on above: Result Comment: CALC ULATIONS OF ESTIMATED GFR ARE PERFORMED USING THE MDRD STUDY EQUATION FOR THE IDMS-TRACEABLE CREATININE METHODS. CLIN CHEM 2007;53:766-72 Performed By: #### L H #### [facility] [address] [place] [id number] GFR-NON AM. >60 Normal >60 [facility] Comment on above: Performed By: #### L H #### [facility] [address] [place] [address] Glucose [Mass/Vol] 74 mg/dL 74 - 99 YE-VRVOE-Neswj n 310 IVF Work Phone: Comment on above: Performed By: #### L H #### [facility] [address] [place] [address] HCO3 (Bld) [Moles/Vol] 25 mmol/L Normal 21 - 32 [facility] Comment on above: Performed By: #### L H #### [facility] [address] [place] [address] Potassium [Moles/Vol] 4.1 mmol/L 3.5 - 5.3 OJ-HDGLN-Zdqaw n 310 IVF Work Phone: Comment on above: Performed By: #### L H #### [facility] [address] [place] [id number] Protein [Mass/Vol] 6.0 g/dL below low threshold 6.4 - 8.2 XW-JVGAI-Vpoww n 310 IVF Work Phone: Comment on above: Performed By: #### L H #### [facility] [address] [place] [address] Sodium [Moles/Vol] 136 mmol/L 136 - 145 EF-VCNQY-Hevfq n 310 IVF Work Phone: Comment on above: Performed By: #### L H #### [facility] [address] [place] [address] Urea nitrogen [Mass/Vol] 11 mg/dL 6 - 23 DX-OHSXR-Rioia n 310 IVF Work Phone: Comment on above: Performed By: #### L H #### [facility] [address] [place] [address] HCG, Beta Quantitativeon HCG.beta subunit Qn 7102 {mIU/mL} Abnormal VJ-MRJBR-Bmkpr n 310 IVF Work Phone: Comment on [...] performed using a different test methodology at [facility] than other [facility]. Direct result comparison should only be made within the same method. REF VALUESNON FEMALE <5MALES <5 HCG,BETA-QUANTITATIVEon - HCG,BETA-QUANTITA TIVE 7102 mIU/mL [facility] Comment on above: Result Comment: Low- level [...] measurement is performed using the [employer] Access Immunoassay which detects intact HCG and free beta HCG subunit. This test is not indicated for use as a tumor marker. HCG testing is performed using a different test methodology at [facility] than other [facility]. Direct result comparison should only be made within the same method. REF VALUES NON FEMALE <5 MALES <5 Performed By: #### L H #### [facility] [address] [place] [address] Hematologyon 11-09-2019 Platelets (Bld) [#/Vol] 411 {x10E9/L} 150 - 450 PX-QLPZL-Mrwzk n 310 IVF Work Phone: RBC (Bld) [#/Vol] 4.44 {x10E12/L} See Below MG -OBGYN-Risma n 310 IVF Work Phone: Comment on above: Reference Range: 4.0 0 - 5.20 WBC (Bld) [#/Vol] 12.4 {x10E9/L} above high threshold 4.4 - 11.3 KK-YMTAK-Ltzui n 310 IVF Work Phone: Metabolic Panelon 11-09-2019 CO2 [Moles/Vol] 25 mmol/L 21 - 32 MG-OBGYN- Risma n 310 IVF Work Phone: Otheron 11-09-2019 Albumin BCP dye [Mass/Vol] 3.8 g/dL 3.4 - 5.0 OE-WZSLE-Mbghb n 310 IVF Work Phone: ALT With P-5'-P [Catalytic activity/Vol] 12 U/L 7 - 45 JL-BZWHD-Nvjjb n 310 IVF Work Phone: Comment on above: Patients treated wit h Sulfasalazine may generate falsely decreased results for ALT. AST With P-5'-P [Catalytic activity/Vol] 12 U/L 9 - 39 JV-OQENN-Xplco n 310 IVF Work Phone: >60 >60 CQ-AOUOZ-Jczio n 310 IVF Work Phone: Comment on [...] HCG measurement is performed using the [employer] Access Immunoassay which detects intact HCG and free beta HCG subunit. This test is not indicated for use as a tumor marker. HCG testing is performed using a different test methodology at [facility] than other [facility]. Direct result comparison should only be made within the same method. REF VALUESNON FEMALE <5MALES <5 HCG,BETA-QUANTITATIVEon 10-15 HCG,BETA-QUANTITA TIVE 240 mIU/mL [facility] Comment on above: Result Comment: Low- level [...] HCG measurement is performed using the [employer] Access Immunoassay which detects intact HCG and free beta HCG subunit. This test is not indicated for use as a tumor marker. HCG testing is performed using a different test methodology at [facility] than other [facility]. Direct result comparison should only be made within the same method. REF VALUES NON FEMALE <5 MALES <5 Performed By: #### E STRA #### [facility] [address] [place] [address] ESTRADIOLon 10-14-2019 ESTRADIOL 1871 pg/mL Normal [facility] Comment on above: Result Comment: Estr adiol measurement is performed using the [employer] Access Immunoassay. Estradiol testing is performed using a different test methodology at [facility] than other [facility]. Direct result comparison should only be made within the same method. REF VALUES FOLLICULAR PHASE 20-144 MID CYCLE 64-357 LUTEAL PHASE 56-214 POSTMENOPAUSE < 32 PREPUBERTY < 20 MALE 10-18Y < 20 ADULT MALE < 40 Performed By: #### E STRA #### [facility] [address] [place] [address] Estradiol, Serumon 9 E2 [Mass/Vol] 1871 pg/mL MG-OBGYN-Ri sma n 310 IVF Work Phone: Comment on above: Estradiol measuremen t is performed using the [employer] Access Immunoassay. Estradiol testing is performed using a different test methodology at [facility] than other [facility]. Direct result comparison should only be made within the same method.REF VALUESFOLLICULAR PHASE 20-144MID CYCLE 64-357LUTEAL PHASE 56-214POSTMENOPAUSE < 32PREPUBERTY < 20MALE 10-18Y < 20ADULT MALE < 40 PROGESTERONEon 10-14-2019 PROGESTERONE 1.0 ng/mL Normal [facility] Comment on above: Result Comment: Prog esterone is performed using the [employer] Access Immunoassay. Progesterone testing is performed using a different test methodology at [facility] than other [facility]. Direct result comparison should only be made within the same method. REF VALUES MALE <0.2-0.8 FOLLICULAR PHASE <0.2-1.5 LUTEAL PHASE 7.4-15.4 POSTMENOPAUSAL <0.2-0.2 1ST TRIMESTER 12.0-84.0 2ND TRIMESTER 10.2-58.8 3RD TRIMESTER 46.5-160 Performed By: #### E STRA #### [facility] [address] [place] [address] Progesterone, Serumon 2018 Progesterone [Mass/Vol] 1.0 ng/mL QV-CYIHL-Euuqo n 310 IVF Work Phone: Comment on above: Progesterone is perf ormed using the [employer] Access Immunoassay. Progesterone testing is performed using a different test methodology at [facility] than other [facility]. Direct result comparison should only be made within the same method.REF VALUESMALE <0.2-0.8 FOLLICULAR PHASE <0.2-1.5 LUTEAL PHASE 7.4-15.4 POSTMENOPAUSAL <0.2-0.2 1ST TRIMESTER 12.0-84.0 2ND TRIMESTER 10.2-58.8 3RD TRIMESTER 46.5-160 ESTRADIOLon 10-11-2019 ESTRADIOL 284 pg/mL Normal [facility] Comment on above: Result Comment: Estr adiol measurement is performed using the [employer] Access Immunoassay. Estradiol testing is performed using a different test methodology at [facility] than other [facility]. Direct result comparison should only be made within the same method. REF VALUES FOLLICULAR PHASE 20-144 MID CYCLE 64-357 LUTEAL PHASE 56-214 POSTMENOPAUSE < 32 PREPUBERTY < 20 MALE 10-18Y < 20 ADULT MALE < 40 Performed By: #### E STRA #### [facility] [address] [place] [address] Estradiol, Serumon 9 E2 [Mass/Vol] 284 pg/mL MG-OBGYN-Ri sma n 310 IVF Work Phone: Comment on above: Estradiol measuremen t is performed using the [employer] Access Immunoassay. Estradiol testing is performed using a different test methodology at [facility] than [facility]. Direct result comparison should only be made within the same method.REF VALUESFOLLICULAR PHASE 20-144MID CYCLE 64-357LUTEAL PHASE 56-214POSTMENOPAUSE < 32PREPUBERTY < 20MALE 10-18Y < 20ADULT MALE < 40 ESTRADIOLon 10-05-2019 ESTRADIOL 129 pg/mL Normal [facility] Comment on above: Result Comment: Estr adiol measurement is performed using the [employer] Access Immunoassay. Estradiol testing is performed using a different test methodology at [facility] than other [facility]. Direct result comparison should only be made within the same method. REF VALUES FOLLICULAR PHASE 20-144 MID CYCLE 64-357 LUTEAL PHASE 56-214 POSTMENOPAUSE < 32 PREPUBERTY < 20 MALE 10-18Y < 20 ADULT MALE < 40 Performed By: #### E BARBARA #### [facility] [address] [place] [address] Estradiol, Serumon 9 E2 [Mass/Vol] 129 pg/mL MG-OBGYN-Ri sma n 310 IVF Work Phone: Comment on above: Estradiol measuremen t is performed using the [employer] Access Immunoassay. Estradiol testing is performed using a different test methodology at [facility] than other [facility]. Direct result comparison should only be made within the same method.REF VALUESFOLLICULAR PHASE 20-144MID CYCLE 64-357LUTEAL PHASE 56-214POSTMENOPAUSE < 32PREPUBERTY < 20MALE 10-18Y < 20ADULT MALE < 40 PROGESTERONEon 10-05-2019 PROGESTERONE 0.2 ng/mL Normal [facility] Comment on above: Result Comment: Prog esterone is performed using the [employer] Access Immunoassay. Progesterone testing is performed using a different test methodology at [facility] than other [facility]. Direct result comparison should only be made within the same method. REF VALUES MALE <0.2-0.8 FOLLICULAR PHASE <0.2-1.5 LUTEAL PHASE 7.4-15.4 POSTMENOPAUSAL <0.2-0.2 1ST TRIMESTER 12.0-84.0 2ND TRIMESTER 10.2-58.8 3RD TRIMESTER 46.5-160 Performed By: #### E BARBARA #### [facility] [address] [place] [address] Progesterone, Serumon 2018 Progesterone [Mass/Vol] 0.2 ng/mL QI-RKIQL-Brdro n 310 IVF Work Phone: Comment on above: Progesterone is perf ormed using the [employer] Access Immunoassay. Progesterone testing is performed using a different test methodology at [facility] than other [facility]. Direct result comparison should only be made within the same method.REF VALUESMALE <0.2-0.8 FOLLICULAR PHASE <0.2-1.5 LUTEAL PHASE 7.4-15.4 POSTMENOPAUSAL <0.2-0.2 1ST TRIMESTER 12.0-84.0 2ND TRIMESTER 10.2-58.8 3RD TRIMESTER 46.5-160 ESTRADIOLon 10-02-2019 ESTRADIOL 357 pg/mL Normal [facility] Comment on above: Result Comment: Estr adiol measurement is performed using the [employer] Access Immunoassay. Estradiol testing is performed using a different test methodology at [facility] than other [facility]. Direct result comparison should only be made within the same method. REF VALUES FOLLICULAR PHASE 20-144 MID CYCLE 64-357 LUTEAL PHASE 56-214 POSTMENOPAUSE < 32 PREPUBERTY < 20 MALE 10-18Y < 20 ADULT MALE < 40 Performed By: #### E STRA #### [facility] [address] [place] [address] Estradiol, Serumon 9 E2 [Mass/Vol] 357 pg/mL MG-OBGYN-Cr ock er 206A IVF Work Phone: Comment on above: Estradiol measuremen t is performed using the [employer] Access Immunoassay. Estradiol testing is performed using a different test methodology at [facility] than other [facility]. Direct result comparison should only be made within the same method.REF VALUESFOLLICULAR PHASE 20-144MID CYCLE 64-357LUTEAL PHASE 56-214POSTMENOPAUSE < 32PREPUBERTY < 20MALE 10-18Y < 20ADULT MALE < 40 LUTEINIZING HORMONEon 2018 LUTEINIZING HORMONE 14.7 IU/L Normal [facility] Comment on above: Result Comment: Lute inizing Hormone [LH] is performed using the [employer] Access Immunoassay. LH testing is performed using a different test methodology at [facility] than other [facility]. Direct result comparison should only be made within the same method. REF VALUES FOLLICULAR PHASE 1.5-10.0 MID-CYCLE 13.0-72.0 LUTEAL PHASE 0.5-13.0 MENOPAUSE 15.0-65.0 PREPUBERTY 0- 3.0 CHILDREN 0- 6.0 ADULT MALE 1.0- 9.0 Performed By: #### E STRA #### [facility] [address] [place] [address] Luteinizing Hormone, Serumon 10-02-2019 Lutropin Qn 14.7 {IU/L} BC-SELTV-Ltj ck er 206A IVF Work Phone: Comment on above: Luteinizing Hormone [LH] is performed using the [employer] Access Immunoassay. LH testing is performed using a different test methodology at [facility] than other [facility]. Direct result comparison should only be made within the same method.REF VALUESFOLLICULAR PHASE 1.5-10.0MID-CYCLE 13.0-72.0LUTEAL PHASE 0.5-13.0MENOPAUSE 15.0-65.0PREPUBERTY 0- 3.0CHILDREN 0- 6.0ADULT MALE 1.0- 9.0 PROGESTERONEon 10-02-2019 PROGESTERONE 0.1 ng/mL Normal [facility] Comment on above: Result Comment: Prog esterone is performed using the [employer] Access Immunoassay. Progesterone testing is performed using a different test methodology at [facility] than other [facility]. Direct result comparison should only be made within the same method. REF VALUES MALE <0.2-0.8 FOLLICULAR PHASE <0.2-1.5 LUTEAL PHASE 7.4-15.4 POSTMENOPAUSAL <0.2-0.2 1ST TRIMESTER 12.0-84.0 2ND TRIMESTER 10.2-58.8 3RD TRIMESTER 46.5-160 Performed By: #### E STRA #### [facility] [address] [place] [address] Progesterone, Serumon 2018 Progesterone [Mass/Vol] 0.1 ng/mL SV-ZUKPS-Nsqak er 206A IVF Work Phone: Comment on above: Progesterone is perf ormed using the [employer] Access Immunoassay. Progesterone testing is performed using a different test methodology at [facility] than other [facility]. Direct result comparison should only be made within the same method.REF VALUESMALE <0.2-0.8 FOLLICULAR PHASE <0.2-1.5 LUTEAL PHASE 7.4-15.4 POSTMENOPAUSAL <0.2-0.2 1ST TRIMESTER 12.0-84.0 2ND TRIMESTER 10.2-58.8 3RD TRIMESTER 46.5-160 HCG,BETA-QUANTITATIVEon 07-17 HCG,BETA-QUANTITA TIVE 10 mIU/mL [facility] Comment on above: Result Comment: Low- level [...] performed using a different test methodology at [facility] than [facility]. Direct result comparison should only be made within the same method. REF VALUES NON FEMALE <5 MALES <5 Performed By: #### L H #### [facility] [address] [place] [address] LUTEINIZING HORMONEon 2018 LUTEINIZING HORMONE 57.0 IU/L Normal [facility] Comment on above: Result Comment: Lute inizing Hormone [LH] is performed using the [employer] Access Immunoassay. LH testing is performed using a different test methodology at [facility] than [facility]. Direct result comparison should only be made within the same method. REF VALUES FOLLICULAR PHASE 1.5-10.0 MID-CYCLE 13.0-72.0 LUTEAL PHASE 0.5-13.0 MENOPAUSE 15.0-65.0 PREPUBERTY 0- 3.0 CHILDREN 0- 6.0 ADULT MALE 1.0- 9.0 Performed By: #### E STRA #### [facility] [address] [place] [address] PROGESTERONEon 08-13-2019 PROGESTERONE 6.7 ng/mL Normal [facility] Comment on above: Result Comment: Prog esterone is performed using the [employer] Access Immunoassay. Progesterone testing is performed using a different test methodology at [facility] than other [facility]. Direct result comparison should only be made within the same method. REF VALUES MALE <0.2-0.8 FOLLICULAR PHASE <0.2-1.5 LUTEAL PHASE 7.4-15.4 POSTMENOPAUSAL <0.2-0.2 1ST TRIMESTER 12.0-84.0 2ND TRIMESTER 10.2-58.8 3RD TRIMESTER 46.5-160 Performed By: #### L H #### [facility] [address] [place] [address] ESTRADIOLon 08-12-2019 ESTRADIOL 1380 pg/mL Normal [facility] Comment on above: Result Comment: Estr adiol measurement is performed using the [employer] Access Immunoassay. Estradiol testing is performed using a different test methodology at [facility] than other [facility]. Direct result comparison should only be made within the same method. REF VALUES FOLLICULAR PHASE 20-144 MID CYCLE 64-357 LUTEAL PHASE 56-214 POSTMENOPAUSE < 32 PREPUBERTY < 20 MALE 10-18Y < 20 ADULT MALE < 40 Performed By: #### L H #### [facility] [address] [place] [address] PROGESTERONEon 08-12-2019 PROGESTERONE 1.7 ng/mL Normal [facility] Comment on above: Result Comment: Prog esterone is performed using the [employer] Access Immunoassay. Progesterone testing is performed using a different test methodology at [facility] than other [facility]. Direct result comparison should only be made within the same method. REF VALUES MALE <0.2-0.8 FOLLICULAR PHASE <0.2-1.5 LUTEAL PHASE 7.4-15.4 POSTMENOPAUSAL <0.2-0.2 1ST TRIMESTER 12.0-84.0 2ND TRIMESTER 10.2-58.8 3RD TRIMESTER 46.5-160 Performed By: #### L H #### [facility] [address] [place] [address] ESTRADIOLon 08-11-2019 ESTRADIOL 874 pg/mL Normal [facility] Comment on above: Result Comment: Estr adiol measurement is performed using the [employer] Access Immunoassay. Estradiol testing is performed using a different test methodology at [facility] than other [facility]. Direct result comparison should only be made within the same method. REF VALUES FOLLICULAR PHASE 20-144 MID CYCLE 64-357 LUTEAL PHASE 56-214 POSTMENOPAUSE < 32 PREPUBERTY < 20 MALE 10-18Y < 20 ADULT MALE < 40 Performed By: #### L H #### [facility] [address] [place] [address] PROGESTERONEon 08-11-2019 PROGESTERONE 1.2 ng/mL Normal [facility] Comment on above: Result Comment: Prog esterone is performed using the [employer] Access Immunoassay. Progesterone testing is performed using a different test methodology at [facility] than other [facility]. Direct result comparison should only be made within the same method. REF VALUES MALE <0.2-0.8 FOLLICULAR PHASE <0.2-1.5 LUTEAL PHASE 7.4-15.4 POSTMENOPAUSAL <0.2-0.2 1ST TRIMESTER 12.0-84.0 2ND TRIMESTER 10.2-58.8 3RD TRIMESTER 46.5-160 Performed By: #### L H #### [facility] [address] [place] [address] ESTRADIOLon 08-09-2019 ESTRADIOL 385 pg/mL Normal [facility] Comment on above: Result Comment: Estr adiol measurement is performed using the [employer] Access Immunoassay. Estradiol testing is performed using a different test methodology at [facility] than other [facility]. Direct result comparison should only be made within the same method. REF VALUES FOLLICULAR PHASE 20-144 MID CYCLE 64-357 LUTEAL PHASE 56-214 POSTMENOPAUSE < 32 PREPUBERTY < 20 MALE 10-18Y < 20 ADULT MALE < 40 Performed By: #### L H #### [facility] [address] [place] [address] ESTRADIOLon 08-07-2019 ESTRADIOL 80 pg/mL Normal [facility] Comment on above: Result Comment: Estr adiol measurement is performed using the [employer] Access Immunoassay. Estradiol testing is performed using a different test methodology at [facility] than other [facility]. Direct result comparison should only be made within the same method. REF VALUES FOLLICULAR PHASE 20-144 MID CYCLE 64-357 LUTEAL PHASE 56-214 POSTMENOPAUSE < 32 PREPUBERTY < 20 MALE 10-18Y < 20 ADULT MALE < 40 Performed By: #### L H #### [facility] [address] [place] [address] ESTRADIOLon 08-04-2019 ESTRADIOL 58 pg/mL Normal [facility] Comment on above: Result Comment: Estr adiol measurement is performed using the [employer] Access Immunoassay. Estradiol testing is performed using a different test methodology at [facility] than [facility]. Direct result comparison should only be made within the same method. REF VALUES FOLLICULAR PHASE 20-144 MID CYCLE 64-357 LUTEAL PHASE 56-214 POSTMENOPAUSE < 32 PREPUBERTY < 20 MALE 10-18Y < 20 ADULT MALE < 40 Performed By: #### L H #### [facility] [address] [place] [address] ESTRADIOLon 07-07-2019 ESTRADIOL 110 pg/mL Normal [facility] Comment on above: Result Comment: Estr adiol measurement is performed using the [employer] Access Immunoassay. Estradiol testing is performed using a different test methodology at [facility] than other [facility]. Direct result comparison should only be made within the same method. REF VALUES FOLLICULAR PHASE 20-144 MID CYCLE 64-357 LUTEAL PHASE 56-214 POSTMENOPAUSE < 32 PREPUBERTY < 20 MALE 10-18Y < 20 ADULT MALE < 40 Performed By: #### L H #### [facility] [address] [place] [address] NR MRI SELLA WO/Won 05-31-20 19 NR MRI SELLA WO/W Patient Name: KIARA ASHLEY STUDY: NR MRI SELLA WO/W; 05/31/2019 2:00 pm INDICATION: History of 7 mm microadenoma 2008. COMPARISON: None. ACCESSION NUMBER(S): [id number] ORDERING CLINICIAN: SHAHLA HEALY TECHNIQUE: High resolution [...] magnum. Electronically signed by: PHYSICIAN ELLEN Normal [facility] ESTRADIOLon 05-05-2019 ESTRADIOL 217 pg/mL Normal [facility] Comment on above: Result Comment: Estr adiol measurement is performed using the [employer] Access Immunoassay. Estradiol testing is performed using a different test methodology at [facility] than other [facility]. Direct result comparison should only be made within the same method. REF VALUES FOLLICULAR PHASE 20-144 MID CYCLE 64-357 LUTEAL PHASE 56-214 POSTMENOPAUSE < 32 PREPUBERTY < 20 MALE 10-18Y < 20 ADULT MALE < 40 Performed By: #### E STRA #### [facility] [address] [place] [id number] LUTEINIZING HORMONEon 2018 LUTEINIZING HORMONE 4.4 IU/L Normal [facility] Comment on above: Result Comment: Lute inizing Hormone [LH] is performed using the [employer] Access Immunoassay. LH testing is performed using a different test methodology at [facility] than other [facility]. Direct result comparison should only be made within the same method. REF VALUES FOLLICULAR PHASE 1.5-10.0 MID-CYCLE 13.0-72.0 LUTEAL PHASE 0.5-13.0 MENOPAUSE 15.0-65.0 PREPUBERTY 0- 3.0 CHILDREN 0- 6.0 ADULT MALE 1.0- 9.0 Performed By: #### L H #### [facility] [address] [place] [address] ESTRADIOLon 04-11-2019 ESTRADIOL 118 pg/mL Normal [facility] Comment on above: Result Comment: Estr adiol measurement is performed using the [employer] Access Immunoassay. Estradiol testing is performed using a different test methodology at [facility] than other [facility]. Direct result comparison should only be made within the same method. REF VALUES FOLLICULAR PHASE 20-144 MID CYCLE 64-357 LUTEAL PHASE 56-214 POSTMENOPAUSE < 32 PREPUBERTY < 20 MALE 10-18Y < 20 ADULT MALE < 40 Performed By: #### E STRA #### [facility] [address] [place] [address] LUTEINIZING HORMONEon 2018 LUTEINIZING HORMONE 7.7 IU/L Normal [facility] Comment on above: Result Comment: Lute inizing Hormone [LH] is performed using the [employer] Access Immunoassay. LH testing is performed using a different test methodology at [facility] than other [facility]. Direct result comparison should only be made within the same method. REF VALUES FOLLICULAR PHASE 1.5-10.0 MID-CYCLE 13.0-72.0 LUTEAL PHASE 0.5-13.0 MENOPAUSE 15.0-65.0 PREPUBERTY 0- 3.0 CHILDREN 0- 6.0 ADULT MALE 1.0- 9.0 Performed By: #### L H #### [facility] [address] [id number] PROGESTERONEon 04-11-2019 PROGESTERONE 0.1 ng/mL Normal [facility] Comment on above: Result Comment: Prog esterone is performed using the Jose [employer] Access Immunoassay. Progesterone testing is performed using a different test methodology at [facility] than [facility]. Direct result comparison should only be made within the same method. REF VALUES MALE <0.2-0.8 FOLLICULAR PHASE <0.2-1.5 LUTEAL PHASE 7.4-15.4 POSTMENOPAUSAL <0.2-0.2 1ST TRIMESTER 12.0-84.0 2ND TRIMESTER 10.2-58.8 3RD TRIMESTER 46.5-160 Performed By: #### P SVEN #### [facility] [address] [id number] ESTRADIOLon 03-17-2019 ESTRADIOL 120 pg/mL Normal [facility] Comment on above: Result Comment: Estr adiol measurement is performed using the Jose [employer] Access Immunoassay. Estradiol testing is performed using a different test methodology at [facility] than [facility]. Direct result comparison should only be made within the same method. REF VALUES FOLLICULAR PHASE 20-144 MID CYCLE 64-357 LUTEAL PHASE 56-214 POSTMENOPAUSE < 32 PREPUBERTY < 20 MALE 10-18Y < 20 ADULT MALE < 40 Performed By: #### E STRA #### [facility] [address] [id number] LUTEINIZING HORMONEon 2018 LUTEINIZING HORMONE 6.8 IU/L Normal [facility] Comment on above: Result Comment: Lute inizing Hormone [LH] is performed using the Jose [employer] Access Immunoassay. LH testing is performed using a different test methodology at [facility] than [facility]. Direct result comparison should only be made within the same method. REF VALUES FOLLICULAR PHASE 1.5-10.0 MID-CYCLE 13.0-72.0 LUTEAL PHASE 0.5-13.0 MENOPAUSE 15.0-65.0 PREPUBERTY 0- 3.0 CHILDREN 0- 6.0 ADULT MALE 1.0- 9.0 Performed By: #### L H #### [facility] [address] [place] [address] ESTRADIOLon 02-20-2019 ESTRADIOL 521 pg/mL Normal [facility] Comment on above: Result Comment: Estr adiol measurement is performed using the Jose [employer] Access Immunoassay. Estradiol testing is performed using a different test methodology at [facility] than other [facility]. Direct result comparison should only be made within the same method. REF VALUES FOLLICULAR PHASE 20-144 MID CYCLE 64-357 LUTEAL PHASE 56-214 POSTMENOPAUSE < 32 PREPUBERTY < 20 MALE 10-18Y < 20 ADULT MALE < 40 Performed By: #### E STRA #### [facility] [address] [place] [address] LUTEINIZING HORMONEon 2018 LUTEINIZING HORMONE 3.5 IU/L Normal [facility] Comment on above: Result Comment: Lute inizing Hormone [LH] is performed using the Jose [employer] Access Immunoassay. LH testing is performed using a different test methodology at [facility] than [facility]. Direct result comparison should only be made within the same method. REF VALUES FOLLICULAR PHASE 1.5-10.0 MID-CYCLE 13.0-72.0 LUTEAL PHASE 0.5-13.0 MENOPAUSE 15.0-65.0 PREPUBERTY 0- 3.0 CHILDREN 0- 6.0 ADULT MALE 1.0- 9.0 Performed By: #### L H #### [facility] [address] [place] [address] Vital Signs Date Time Vital Sign Value Performing Clinician Modesto golden 02-27-2023 11:35-0400 Body mass index (BMI) [Ratio] 29.26 kg/m2 Evelyn Perez Work Phone: [facility] 02-27-2023 11:35-0400 Body temperature 98.8 [degF] Evelyn Perez Work Phone: [facility] [employer] 02-27-2023 11:35-0400 Body weight 72.58 kg Evelyn Calderonrn [facility] 02-27-2023 11:35-0400 Diastolic blood pressure 66 mm[Hg] Evelyn Calderonrn Work Phone: [facility] [employer] 02-27-2023 11:35-0400 Heart rate 88 /min Evelyn Calderonrn Work Phone: [facility] [employer] 02-27-2023 11:35-0400 Respiratory rate 14 /min Evelyn Calderonrn Work Phone: [facility] [employer] 02-27-2023 11:35-0400 SaO2% (BldA) [Mass fraction] 100 % Evelyn Calderonrn Work Phone: [facility] [employer] 02-27-2023 11:35-0400 Systolic blood pressure 103 mm[Hg] Evelyn Calderonrn Work Phone: [facility] [employer] 06-19-2021 14:03-0400 Body height 157.48 cm Evelyn Calderonrn Work Phone: CI-CCEUQ-Fjtekb 310 IVF Work Phone: 06-19-2021 14:03-0400 Body mass index (BMI) [Ratio] 29.26 kg/m2 Evelyn Calderonrn Work Phone: HC-ULHAO-Efhezd 310 IVF Work Phone: 06-19-2021 14:03-0400 Body surface area Derived from formula 1.74 m2 Evelyn Calderonrn Work Phone: PV-EGSEP-Enequd 310 IVF Work Phone: 06-19-2021 14:03-0400 Body weight 72.58 kg Evelyn Calderonrn Work Phone: VL-MDGBZ-Tbprfg 310 IVF Work Phone: 06-19-2021 14:03-0400 1 1 Evelyn Husain Ana Work Phone: PQ-AUXSW-Utocdb 310 IVF Work Phone: Comment on above: GRAV PARA 06-19-2021 14:03-0400 0 1 Evelyn Husain Ana Work Phone: ON-VPETX-Wwgtbz 310 IVF Work Phone: Comment on above: [employer] 06-07-2020 10:41-0400 BMI (Body Mass Index) 34.93 kg/m2 King Lappen YX-EOVGF-NFA [address] [place] Work Phone: 06-07-2020 10:41-0400 Body weight 86.64 kg King Lappen XL-FVNEO-WVF [address] [place] Work Phone: 06-07-2020 10:41-0400 BP Diastolic 76 mm[Hg] King Lappen TQ-HLJUL-NSK [address] [place] Work Phone: 06-07-2020 10:41-0400 BP Systolic 111 mm[Hg] King Lappen TV-VTJLO-TAU [address] [place] Work Phone: 06-07-2020 10:41-0400 BSA (Body Surface Area) 1.87 m2 King Lappen RI-TXCNU-UXZ [address] [place] Work Phone: 06-07-2020 10:41-0400 Pulse (Heart Rate) 101 /min King Lappen XO-ZNKDZ-UEP [address] [place] Work Phone: 06-07-2020 10:41-0400 0 1 King Lappen RF-UOJSK-VDB [address] [place] Work Phone: Comment on above: Pain Scale 12-25-2019 10:58-0500 BMI (Body Mass Index) 30.18 kg/m2 King Lappen RZ-YPAXR-UOO [address] [place] Work Phone: 12-25-2019 10:58-0500 Body weight 74.84 kg King Lappen BD-PCQBD-XGO [address] [place] Work Phone: 12-25-2019 10:58-0500 BP Diastolic 68 mm[Hg] King Lappen LD-JKEYN-NEE [address] [place] Work Phone: 12-25-2019 10:58-0500 BP Systolic 112 mm[Hg] King Lappen IK-BZLDK-KYR [address] [place] Work Phone: 12-25-2019 10:58-0500 BSA (Body Surface Area) 1.76 m2 King Lappen ST-HEQVH-UKG [address] [place] Work Phone: 11-09-2019 11:28-0500 Body Temperature 98.78 [degF] Kelechi Gage VL-LKZYS-Wjrsji 310 IVF Work Phone: 11-09-2019 11:28-0500 BP Diastolic 76 mm[Hg] Kelechi Gage DV-FJDOD-Geeqcz 310 IVF Work Phone: 11-09-2019 11:28-0500 BP Systolic 112 mm[Hg] Kelechi Gage UY-SUYXQ-Rmcedd 310 IVF Work Phone: 11-09-2019 11:28-0500 Respiratory Rate 96 /min Kelechi Gage XM-SXBYG-Omvcgy 310 IVF Work Phone: Encounters Encounter Date Encounter Type Care Provider Facility Start: 01-10-2024 ambulatory Evelyn Perez MD Facility:Pulmonology & Critical Care Medicine [facility] Start: 10-05-2023 End: 10-05-2023 ambulatory SHERMAN HUNTER Not Available Start: 09-14-2023 End: 09-14-2023 ambulatory Lc Waite Facility:[facility] Start: 02-27-2023 End: 02-27-2023 Emergency department patient visit EVELYN PEREZ [facility] Start: 02-27-2023 End: 02-27-2023 Emergency department patient visit Evelyn Perez Work Phone: [facility] ED Comment on above: Sprain of left ankle , unspecified ligament, initial encounter (Primary Dx) Start: 01-13-2023 End: 01-14-2023 ambulatory Zoya Skyecharo Buitrago BIAZZI NITRATOR OPERATOR-COMPOUNDING TECHNICIAN Facility:Pulmonology & Critical Care Medicine [facility] Start: 01-11-2023 End: 01-11-[address] RADAMES RIBEIRO . Facility:H1 Start: 09-22-2022 End: 09-22-2022 Emergency department patient visit JAMI ROMERO [facility] Start: 03-10-[address] EVELYN PEREZ [...] 12-27-2021 End: 12-27-2021 ambulatory Sabina Barnhart Other [email or web address] Other Start: 12-27-2021 Office outpatient visit 5 minutes Sabina Barnhart [facility] Start: 07-16-2021 Patient encounter procedure Evelyn Perez Work Phone: WQ-WALXP-Gaglaw 310 IVF Work Phone: Start: 07-07-2021 AUDIT Evelyn Husain Scherm erhorn Work Phone: XK-XPEST-Tviaug 310 IVF Work Phone: Start: 07-07-2021 Chart Update Evelyn Husain Schechiara erhorn Work Phone: TC-PXFIO-Nmqnpk 310 IVF Work Phone: Start: 07-02-2021 Telephone encounter Evelyn Husain Alejandro higginbothamerhorn Work Phone: FL-FNHAZ-Gciuvf 310 IVF Work Phone: Start: 06-19-2021 Patient encounter procedure Evelyn Trevinohorn Work Phone: EV-HTYUV-Ioeprb 310 IVF Work Phone: Start: 06-07-2020 Patient encounter procedure King Lappen ZG-NWMXN-DRQ [address] [place] Work Phone: Start: 04-24-2020 Patient encounter procedure King Lappen VO-OXQGQ-RWD [address] [place] Work Phone: Start: 02-20-2020 Patient encounter procedure King Lappen ZQ-KMRUF-MVJ [address] [place] Work Phone: Start: 02-14-2020 Patient encounter procedure King Lappen QA-LEMAW-WBA [address] [place] Work Phone: Start: 01-23-2020 Patient encounter procedure King Lappen BE-MFMYA-OSA [address] [place] Work Phone: Start: 12-25-2019 Patient encounter procedure King Lappen ZF-WORNL-MUG [address] [place] Work Phone: Start: 11-21-2019 Patient encounter procedure King Lappen TZ-YSRVP-FXO 1200 [place] Work Phone: Start: 11-16-2019 Patient encounter procedure [facility]age [facility] Work Phone: Start: 11-14-2019 Patient encounter procedure Kelechi Gage SP-AHBZT-Qvkeso 310 IVF Work Phone: Start: 11-09-2019 Patient encounter procedure Kelechi Gage PA-ISPTZ-Pwvzbu 310 IVF Work Phone: Start: 11-02-2019 Patient encounter procedure Kelechi Gage MP-Reproductive Endocrinology-[place] Work Phone: Start: 10-21-2019 Patient encounter procedure Kelechi Gage MP-Reproductive Endocrinology-[place] Work Phone: Start: 10-14-2019 Patient encounter procedure Kelechi Gage BL-UZRIL-Boijzm 310 IVF Work Phone: Start: 10-11-2019 Patient encounter procedure Kelechi Gage WR-QOBLB-Nxgogd 310 IVF Work Phone: Start: 10-05-2019 Patient encounter procedure Kelechi Gage GK-WDYKG-Qxnhle 320 Work Phone: Start: 10-02-2019 Patient encounter procedure Kelechi TONGHS-CICXM-Cfumsfl 206A IVF Work Phone: Start: 08-14-2019 Patient encounter procedure Kelechi Gage KC-WBQHL-Hqdlym 310 IVF Work Phone: Start: 08-13-2019 Patient encounter procedure Kelechi TONGBT-BRTRV-Csjrsm 310 IVF Work Phone: Start: 08-12-2019 Patient encounter procedure Kelechi Gage RW-KOFBO-Lkiles 310 IVF Work Phone: Start: 08-11-2019 Patient encounter procedure Kelechi Gage YR-ZJRIK-Amqouo 310 IVF Work Phone: Start: 08-09-2019 Patient encounter procedure Kelechi Gage PK-FTDZA-Xedexc 310 IVF Work Phone: Start: 08-07-2019 Patient encounter procedure Kelechi Gage HK-HYOPR-Ozxwpg 310 IVF Work Phone: Start: 08-04-2019 Patient encounter procedure Kelechi Gage FG-HXGVL-Kpicqb 310 IVF Work Phone: Start: 07-07-2019 Patient encounter procedure Kelechi Gage EI-UBPVA-Cuxrpx 310 IVF Work Phone: Start: 06-08-2019 Patient encounter procedure Kelechi Gage YD-JGWVF-Qsiwfw 310 IVF Work Phone: Start: 05-17-2019 Patient encounter procedure Kelechi Gage IB-WRMSR-Rwjaqt 310 IVF Work Phone: Start: 05-08-2019 Patient encounter procedure Kelechi Gage WV-NPZFT-Oobbic 310 IVF Work Phone: Start: 05-05-2019 Patient encounter procedure Kelechi Gage XH-PWVJJ-Toygzv 310 IVF Work Phone: Start: 04-13-2019 Patient encounter procedure Kelechi Gage BQ-LVSJE-Belkcm 310 IVF Work Phone: Start: 04-11-2019 Patient encounter procedure Kelechi Gage IK-XUCZJ-Fhuehj 310 IVF Work Phone: Start: 03-20-2019 Patient encounter procedure Kelechi Gage TP-PUPZU-Toxmvc 310 IVF Work Phone: Start: 03-17-2019 Patient encounter procedure Kelechi Gage XE-GMLKR-Rsjaya 310 IVF Work Phone: Start: 02-22-2019 Patient encounter procedure Kelechi Gaeg NA-FHEYW-Fgxtmr 310 IVF Work Phone: Start: 02-20-2019 Patient encounter procedure Kelechi Gage XR-BGZZA-Bcfbxe 310 IVF Work Phone: Start: 02-13-2019 Patient encounter procedure Bruce Mayes [place] Start: 02-08-2019 End: 02-12-2019 Patient encounter procedure Bruce Montiel Mayes [facility] Start: 01-19-2019 Patient encounter procedure Kelechi Gage ZX-BZSSH-Vievnb 310 IVF Work Phone: Patient encounter status Evelyn Perez Work Phone: SK-MWFPA-Wtkhof 310 IVF Work Phone: Procedures Date Procedure [...] Influenza vaccination Flu vacc ine (Season Ended) [facility] Start: 2021 Screening for malign ant neoplasm of cervix [facility] Start: 07-25-2021 ULTRASOUND, Provider : OBGYN IVF RDMS ARDEN 1,MG OBGYN, Status: Pen, Time: 9:00 AM ULTRASOUND, Provider: OBGYN IVF RDMS ARDEN 1,MG OBGYN, Status: Pen, Time: 9:00 AM FG-ARKHC-Gdltji 310 IVF Work Phone: Start: 07-16-2021 ULTRASOUND, Provider : OBGYN IVF RDMS [id number] 1,MG OBGYN, Status: Pen, Time: 1:00 PM ULTRASOUND, Provider: OBGYN IVF RDMS [id number] 1,MG OBGYN, Status: Pen, Time: 1:00 PM BO-LJNHW-Isnucp 310 IVF Work Phone: Start: 07-07-2021 ULTRASALIN, Provider : Miguel A Barrera, Status: Pen, Time: 10:00 AM ULTRASALIN, Provider: Miguel A Barrera, Status: Pen, Time: 10:00 AM FU-YJJFG-Gctest 310 IVF Work Phone: Start: 06-05-2020 MAC Imaging Order MG-MARKING DEVICES ASSEMBLER-MAC [address] [place] Work Phone: Start: 11-16-2019 IO Ultrasound, MP-Reproductive Endocrinology-[place] 206 Work Phone: Start: 11-14-2019 Blood count complete auto&auto difrntl wbc Complete Blood Count + Differential UJ-BRIJY-Ybjpig 310 IVF Work Phone: Start: 11-14-2019 Comprehensive metabo lic 2000 panel MX-NMZRR-Nyrjvp 310 IVF Work Phone: Start: 11-02-2019 Gonadotropin chorion ic quantitative HCG, Beta Quantitative MP-Reproductive Endocrinology-[place] 206 Work Phone: Start: 10-11-2019 IO Ultrasound, limited pelvic, follicle monitoring XO-ZYVRO-Tuvwpo 310 IVF Work Phone: Start: 10-05-2019 IO Ultrasound, limited pelvic, follicle monitoring HW-BNEAE-Htuhqm 320 Work Phone: Start: 2012 Screening for malign ant neoplasm of cervix Pap smear [facility] Start: 2010 DTaP/Tdap/Td vaccine (1 - Tdap) DTaP/Tdap/Td vaccine (1 - Tdap) [facility] Start: 2009 Hepatitis C screening Hepatitis C sc reen [facility] Start: 2006 HIV screening HIV screen [facility] Start: 2003 Depression Screen Depression Screen [facility] Start: 1992 Varicella vaccine (1 of 2 - 2-dose childhood series) Varicella vaccine (1 of 2 - 2-dose childhood series) [facility] Start: 03-02-1992 COVID-19 Vaccine (#1) COVID-19 Vacci ne (#1) [facility] Assay of estradiol Estradiol, Serum MG-MARKING DEVICES ASSEMBLER-Risman 310 IVF Work Phone: Comment on above: Approx [id number] Approx [id number] Approx [id number] Assay of progesterone Progesterone, Serum YO-PLFEW-Ztcznp 310 IVF Work Phone: Comment on above: Approx [id number] Gonadotropin luteini zing hormone Luteinizing Hormone, Serum YY-ZEBDK-Lygnfa 310 IVF Work Phone: Comment on above: Approx [id number] GB-GYTNP-Jrwqhb 320 Work Phone: IO Ultrasound, l imited pelvic, follicle monitoring QS-OJHXN-Teqxps 310 IVF Work Phone: Comment on above: Approx [id number] Approx 13Oct2019 Approx 02Oct2019 NEGATED: Highlighted row has been ruled out! Planned Goals not documented HI-IDCAN-Doeypx 310 IVF Work Phone: Payers Date Payer Category Payer Self-pay 2017 Unknown 1991 Unknown [id number] 2.16.84 0.1.603580.3.579.2.593 1991 Unknown [id number] 2.16.84 0.1.528248.3.579.2.593 1991 Unknown [id number] 2.16.84 0.1.693093.3.579.2.593 1991 Unknown [id number] 2.16.84 0.1.196087.3.579.2.593 1991 Unknown [id number] 2.16.84 0.1.384771.3.579.2.593 1991 Unknown [id number] 2.16.84 0.1.106912.3.579.2.593 1991 Unknown [id number] 2.16.84 0.1.659823.3.579.2.593 1991 Unknown [id number] 2.16.84 0.1.797555.3.579.2.593 1991 Unknown [id number] 2.16.84 0.1.326130.3.579.2.593 1991 Unknown [id number] 2.16.84 0.1.265600.3.579.2.593 1991 Unknown [id number] 2.16.84 0.1.805218.3.579.2.593 1991 Unknown [id number] 2.16.84 0.1.720886.3.579.2.593 1991 Unknown [id number] 2.16.84 0.1.397454.3.579.2.593 1991 Unknown [id number] 2.16.84 0.1.842215.3.579.2.593 1991 Unknown [id number] 2.16.8 40.1.987295.3.579.2.173 1991 Unknown [id number] 2.16.8 40.1.415304.3.579.2.173 1991 Unknown [id number] 2.16.840 .1.751941.3.579.2.1259 1991 Unknown [id number] 2.16. 840.1.342294.3.579.2.196 1991 Unknown [id number] 2.16. 840.1.245270.3.579.2.196 1959 Self-pay [id number] 1959 Unknown [id number] 1959 Unknown [id number] Unknown [id number] 2.16.8 40.1.039980.3.579.2.243 Unknown [id number] 2.16.8 40.1.118087.3.579.2.243 Unknown [id number] 2.16.8 40.1.130417.3.579.2.531 Social History Date Type Detail Facility - - VM-FAHNR-Zkpeia 310 IVF Work Phone: Never a smoker Never a smoker MG-OBSACHIN-Renee rosario 310 IVF Work Phone: Comment on above: [facility] ED; Sex Assigned At Sex Assigned At [facility] [email or web address] Other Start: 09-22-2022 Tobacco smoking stat [facility] Never smoked tobacco [employer] Work Phone: Start: 09-22-2022 Tobacco use and exposure Smokeless tobacco non-user [employer] Work Phone: Start: 1990 Sex Assigned At Not on file B [facility] [employer] Work Phone: Start: 02-17-2023 End: 02-27-2023 Exposure to SARS-CoV-2 (event) Not sure [facility] [employer] Functional Status Date Assessment Result Facility NEGATED: Highlighted row Functional performance Functional status health issues are not documented Disease RA-HMAMU-Vbgowe 310 IVF Work Phone: Mental Status Date Assessment Result Facility NEGATED: Highlighted row Cognitive function [Interpretation] Cognitive status health issues are not documented Disease CL-IHWNB-Cchsqk 310 IVF Work Phone: Clinical Note 01-13-2023 [...] qualifying data available. Assessment/Plan 1. Asthma Ordered: [id number] AMB Admin of patient-focused health risk assessment [...] signed by Link Zoya PERKINS 01/13/23 12:06 [facility] Evaluation note 12-27-2021 Note Date & Type [...] Patient care instructions given in writting by [facility] Care At Home document. [email or web address] Other Clinical Note 07-25-2021 Note Date & [...] care. Reviewed plan with Dr. Bruce Aburto, COMPOUNDING TECHNICIAN 07/25/2021 09:22 note: ob scan LOLLY: 03/05/2022. [...] Plan reviewed by Dr. Healy. Petra Lombardi COMPOUNDING TECHNICIAN 07/16/21 1409 TC to pt with quant = 3238 form yesterday; normal rise from 728 on 07/02; Pt doing well; no problems with Lovenox. PT transferred to [facility] to schedule OB US for next week at [facility]. Bere Way RN 07/07/2021 11:47 Spoke with patient regarding EAXC=594. Pain=0. Patient states she will begin prometrium BID and Lovenox today. Patient will repeat BHCg on Wednesday when she is at work. Patient aware RN will call her WednesdayJuly 07 with results and plan. Lucy Dunlap R.N.07/03/2021 12:19 Spoke to patient, will start Prometrium 100 mg BID and Lovenox 40 mg BID today (+Protein S deficiency). [place] to f/u with patient tomorrow once HCG level is back. Patient verbalized understanding. Rosibel Sam RN 07/02/2021 13:54 note: Reviewed positive test. LMP 05/29, conceived on christy cycle/IC. Plan to get HCG drawn today. Start Prometrium 100mg BID. Start Lovenox 40mg BID SQ. Plan per Dr. Healy. RN to communicate. Petra Lombardi [facility] 07/02/21 1304 Active Problems 16 weeks gestation [...] directed. Peak F (more content not included)... [facility] Chief complaint Narrative - Reported 06-19-2021 Note [...] 30 year-old who presents for a FET [id number] Hx:06/2020: IOL @ 38 weeks due to [...] contour on HSG - images reviewed from [facility] 08/2018Uterine Cavity Evaluation:Normal uterine cavity on HSG- [...] Ashley 04/09/1989A in past year:2.8 cc125 mil/mL69% xhrajzgyAYO=367 million(recent IUI sample)Morph from original SA was 2.8% WH-WDHBZ-Atfvat 310 IVF Work Phone: Evaluation note Note Date & Type Note Facility Evaluation note Diagnosis Sprain of left ankle, unspecified ligament, initial encounter- Primary documented in this encounter EDAN Phone: Hospital Discharge instructions Attachments Note Date & Type Note Facility Hospital Discharge instructions The following attachments cannot be sent through Care Everywhere.Ankle Sprain (Pashto)Ankle Sprain: Rehab Exercises (Pashto)documented in this encounter EDAN Phone: Summary Purpose Family History No Family [...] section and content) DATE CREATED AUTHOR 02/15/2019 [facility] DATE CREATED AUTHOR AUTHOR'S ORGANIZ ATION 11/12/2019 [facility] DATE CREATED AUTHOR AUTHOR'S ORGANIZ ATION [place]/09/2020 [facility] DATE CREATED AUTHOR AUTHOR'S ORGANIZ ATION 07/26/2021 [employer] DATE CREATED AUTHOR AUTHOR'S ORGANIZ ATION 01/21/2023 [facility] DATE CREATED AUTHOR AUTHOR'S ORGANIZ ATION 03/06/2023 [facility] DATE CREATED AUTHOR AUTHOR'S ORGANIZ ATION 07/12/2023 [facility] DATE CREATED AUTHOR AUTHOR'S ORGANIZ ATION 10/04/2023 [facility] DATE CREATED AUTHOR AUTHOR'S ORGANIZ ATION 10/07/2023 [facility] EPIC DATE CREATED AUTHOR AUTHOR'S ORGANIZ ATION 10/30/2023 [facility] REASON FOR VISIT (unrecogniz ed section and content) Reason Comments Ankle Pain Rolled ankle during morning run. Swelling to lateral ankle. 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 Care Teams (unrecognized sec tion and content) Immigration Services Officer Relationship Specialty Start Date End Date Evelyn Perez [address] [place] [address] PCP - General Pediatrics 09/22/22 [...] BE BASED ON THE PRIMARY CLINICAL RECORDS. [employer] provides no warranty or guarantee of the accuracy or completeness of information in this document.
[2023-11-07 00:07] LABS: AFP Value 74.2 ng/mL (.); Gest. Age on Collection Date 20.9 weeks (.); Insulin Dep Diabetes No (.); Maternal Age At EDD 32.5 yr (.); OSBR Risk 1 IN 5411 (.); Results Report (.)
== END 2023-11-03 16:02 | disposition home or self-care (01) ==
LOC: LAB 16:01
PROVIDERS: Visit Provider Obstetrics & Gynecology
DX: O26.812 Pregnancy related exhaustion and fatigue, second trimester (principal); Z3A.00 Weeks of gestation of pregnancy not specified
CPT/HCPCS: 36415; 82105; 82728; 85025

== ENCOUNTER 2023-11-30 10:29 | Outpatient (OUT) | payer BC, SELFPAY ==
--- NOTE | 2023-11-30 10:31 | US_ITS ---
[address] [address] Patient Name: ELVIN STUART MRN: [id number] date: 1990 Sex: F Assigned Patient Location: US Current Patient Location: US Accession/Order Number: [id number] Exam Date: 11/30/2023 10:31 Report Date: 11/30/2023 13:47 At the request of: RADAMES CHAUHAN Procedure: US OB placenta EXAM: US OB placenta HISTORY: LOW LYING PLACENTA COMPARISON: None. TECHNIQUE: Transabdominal FINDINGS: presentation: Cephalic Placenta: Posterior. No intraplacental or retroplacental echogenic abnormality. The placental edge is 3.7 cm from the internal os Cervix: Closed, 4.7 cm US/US OB placenta IMPRESSION: The placental edge is 3.7 cm from the internal os Electronically authenticated by: JESSE THOMAS Date: 11/30/2023 13:47
--- OUTSIDE RECORDS SUMMARY | 2023-11-30 10:36 | XMS_ITS | CCD ---
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 Phone Bruce Mayes Attending Unavailable [...] HER Unavailable Unavaila ble OBGYN IVF RDMS [id number], MG OBGYN Unavailable Unavailable King Guevara Unavailable Unavailable Shahla Healy Unavailable Unavailable January, Jami Unavailable Unavailable Evelyn Perez Unavailable Unavailable Unavailable Unavailable Unavailable Sabina Barnhart Unavailable ANA, DR EVELYN Husain Primary Care Unavail able GISSEL ., DR CRUM Attending Unavailable GISSEL ., DR CRUM Admitting Unavailable ANA, DR EVELYN Husain Primary Care Unavail able GISSEL Diane, DR CRUM Attending Unavailable GISSEL ., DR [...] Primary Care Unavail able GISSEL ., DR RCUM Attending Unavailable GISSEL ., DR CRUM Admitting [...] Primary Care Unavail able GISSEL ., DR RCUM Attending Unavailable GISSEL ., DR CRUM Admkaterine Unavailable GISSEL ., DR CRUM Consulting Unavailable [...] DR CRUM Attending Unavailable GISSEL ., DR CRMU Admitting Unavailable AnaEvelyn wilson Primary Care Provider JAMI ROMERO Attending EVELYN Patino Primary Care UnavailEVELYN Tomlinson Primary Care Unavailleyda e Lc Waite Admitting Evelyn Patino Primary Care Lc Khanna Attending Unavailable Iftikhar PERKINS, Zoya Cheung Attending Robert Perez MD, Evelyn Gracia Primary Care Evelyn Hernandez MD Primary Care Zamzam PERKINS, Zoya Cheung Attending SHERMAN Wright Attending RADAMES Mills Attending Unavailable Allergies Allergy Classification Reported Allergen(s) Allergy Type Date of Onset Reaction(s) Facility Progesterone (2 sources) Progesterone; Translations: [Progesterone OIL] Drug Allergy [id number] n 310 IVF Work Phone: (16 sources) Progesterone; Translations: [Progesterone OIL] Drug Allergy 2 [facility] (2 sources) sesame seed extract Drug Allergy [facility] (1 source) No Known Medication Allergies; Translations: [No Known Medication Allergies] Propensity to adverse reactions to drug (disorder) [facility] Repository Medications Current Medications Medication Drug Class(es) [...] Kelechi Gage MD Start : 14-Aug-2019 Active [id number] 200 actuat albuterol 0.09 mg/actuat metered dose [...] DO Start : 19-Jan-2019 Active BD Disp Whiting 27G X 1/2 (19 sources) Start: 10-03-2019 BD Disp Needle s 27G X 1/2 USE DIRECTED. Quantity: 2 Refills: 2 Shahla Healy MD Start : 03-Oct-2019 Active chorionic gonadotropin 53413 unt/ml injectable solution (19 sources) Gonadotropin Start: 10-03-2019 Chorionic Gonadotropin 79137 UNIT Intramuscular Solution Reconstituted USE DIRECTED. Quantity: [...] Crtrdg-NDL Start: 10-03-2019 inject 75 [IU] by cotton bcutaneous injection once daily Follistim AQ 300 [...] Use as directed. Quantity: 1 Refills: 0 JustoKing chisholm MD Start : 25-Dec-2019 Active Start: 12-25-2019 Peak Air Peak Flow Meter Device USE DIRECTED. Quantity: 1 Refills: 0 JustoKing chisholm MD Start : 25-Dec-2019 Active Peak Flow Meter Loma Rang Device (3 sources) Start: 01-23-2020 Peak Flow Mete r Loma Rang Device USE DIRECTED. Quantity: 1 Refills: [...] Demographics: Name: KIARA ASHLEY Date: 1990 Address: [address] [place] [address] Date and Time: 12-Jul-2023 09:31 Caller Information: call from Call From: patient Caller Name: Kiara Ferguson Phone Number: [phone] Reason for Call: Reason for Callmedication question [...] further questions or concerns at this time. Lamoda, Harmony 07/12/2023 09:54 Lamoda, Harmony 07/12/2023 09:57 Outpatient [...] 09:57 by Harmony Ross (N MGR) Normal [facility] XR ANKLE LEFT (MIN 3 VIEWS)o n [...] Dario William MD 02/27/23 Final result Normal [facility] 1. No acute osseous abnormality involving the left ankle. [facility] RIS CONSOLIDATED EXAMINATION: THREE XRAY VIEWS [...] acute osseous abnormality involving the left ankle. [facility] Phone: Radiology Study observation (narrative) [facility] Phone: XR ANKLE LEFT (MIN 3 VIEWS)O rdered By: Dario William on 02-27-2023 [facility] Phone: PAP ACOG PANEL 2: 30 to 65on 01-19-2023 . . Normal [facility] Comment on above: Result Comment: Perf ormed at: WB Performed By: #### [id number] #### [facility] [address] [place] [address] Dr. Claire Mayes Age Gdln ACOG Testing 30-65 Normal [facility] Comment on above: Performed By: #### [id number] #### [facility] [address] [address] [address] Claire Mayes DIAGNOSIS: Comment Normal [facility] Comment on above: Result Comment: NEGA TIVE FOR INTRAEPITHELIAL LESION OR MALIGNANCY. Performed at: WB Performed By: #### [id number] #### [facility] [address] [address] [address] Claire Mayes HPV Aptima Negative Normal Negative [facility] Comment on above: Result Comment: This nucleic acid amplification test detects fourteen high-risk HPV types (16,18,31,33,35,39,45,51,52,56,58,59,66,68) without differentiation. Performed at: =G Performed By: #### [id number] #### [facility] [address] [place] [address] Dr. Claire Mayes HPV Genotype Reflex Comment Normal [facility] Comment on above: Result Comment: Crit erkayla not met, HPV Genotype not performed. Performed at: WB Performed By: #### [id number] #### [facility] [address] [place] [address] Dr. Claire Mayes Methodology: Comment Normal [facility] Comment on above: Result Comment: This liquid based ThinPrep(R) pap test was screened with the use of an image guided system. Performed at: WB Performed By: #### [id number] #### [facility] [address] [place] [address] Dr. Claire Mayes Note: Comment Normal [facility] Comment on above: Result Comment: The Pap smear is a screening test designed to aid in the detection of premalignant and malignant conditions of the uterine cervix. It is not a diagnostic procedure and should not be used as the sole means of detecting cervical cancer. Both false-positive and false-negative reports do occur. . Performed at: WB Performed By: #### [id number] #### [facility] [address] [place] [address] Dr. Claire Mayes Performed by: Comment Normal [facility] Comment on above: Result Comment: Sherlyn Wright, Human Resources Communications Manager (ASCP) Performed at: WB Performed By: #### [id number] #### [facility] [address] [place] [address] Dr. Claire Mayes Specimen adequacy: Comment Normal [facility] Comment on above: Result Comment: Sati sfactory for evaluation. No endocervical component is identified. Performed at: WB Performed By: #### [id number] #### [facility] [address] [place] [address] Dr. Claire Mayes CBC with Diffon 09-22-2022 Abs. Basophil 0.03 k/uL Normal 0.00-0.20 [facility] Comment on above: Performed By: #### L IP, CDP, CP #### [address] [place], [facility]83 Aircraft Engineer: Jesse Curry MD Abs.Imm.Granulocy te 0.04 k/uL Normal 0.00-0.[address] [facility] Comment on above: Performed By: #### L IP, CDP, CP #### [address] [place], [facility]83 Aircraft Engineer: Jesse Curry MD Abs.Neutrophil (Seg) 12.54 k/uL High 1.50-8.[address] [facility] Comment on above: Performed By: #### L IP, CDP, CP #### [address] [place] [id number] Aircraft Engineer: Jesse Curry MD Basophils/100 WBC (Bld) 0 % Normal 0-[address] [facility] Comment on above: Performed By: #### L IP, CDP, CP #### [address] [place], [facility]83 Aircraft Engineer: Jesse Curry MD Eosinophils (Bld) [#/Vol] 0.16 10*3/uL Normal 0.00-0.[address] [facility] Comment on above: Performed By: #### L IP, CDP, CP #### [address] [place], [facility]83 Aircraft Engineer: Jesse Curry MD Eosinophils/100 WBC (Bld) 1 % Normal 1-[address] [facility] Comment on above: Performed By: #### L IP, CDP, CP #### [address] [place] [id number] Aircraft Engineer: Jesse Curry MD Erythrocyte distribution width (RBC) [Ratio] 13.6 % Normal 11.8-14.[address] [facility] Comment on above: Performed By: #### L IP, CDP, CP #### [address] [place], [place] [address] Aircraft Engineer: Jesse Curry MD Hematocrit (Bld) [Volume fraction] 46.4 % Normal 36.3-47.[address] [facility] Comment on above: Performed By: #### L IP, CDP, CP #### [facility] [address] [place] [address] Dr. [place], [facility]83 Aircraft Engineer: Jesse Curry MD Hemoglobin (Bld) [Mass/Vol] 15.6 g/dL High 11.9-15.[address] [facility] Comment on above: Performed By: #### L IP, CDP, CP #### [address] [place] [address] Aircraft Engineer: Jesse Curry MD Immature granulocytes/100 WBC (Bld) 0 % Normal [address] [facility] Comment on above: Performed By: #### L IP, CDP, CP #### [address] [place], [place] [address] Aircraft Engineer: Jesse Curry MD Lymphocytes (Bld) [#/Vol] 0.98 10*3/uL Low 1.10-3.[address] [facility] Comment on above: Performed By: #### L IP, CDP, CP #### [address] [place] [address] Aircraft Engineer: Jesse Curry MD Lymphocytes/100 WBC (Bld) 7 % Low 24-[address] [facility] Comment on above: Performed By: #### L IP, CDP, CP #### [facility] [address] [place] [address] Dr. [place], [facility]83 Aircraft Engineer: Jesse Curry MD MCH (RBC) [Entitic mass] 30.4 pg Normal 25.2-33.[address] [facility] Comment on above: Performed By: #### L IP, CDP, CP #### [facility] [address] [place] [address] Dr. [place] [id number] Aircraft Engineer: Jesse Curry MD MCHC (RBC) [Mass/Vol] 33.6 g/dL Normal 28.4-34.[address] [facility] Comment on above: Performed By: #### L BJ BUCK, CP #### [address] [place], [place] [id number] Aircraft Engineer: Jesse Curry MD MCV (RBC) [Entitic vol] 90.3 fL Normal 82.6-102.[address] [facility] Comment on above: Performed By: #### L BJ BUCK, CP #### [address] [place], [place] [id number] Aircraft Engineer: Jesse Curry MD Monocytes (Bld) [#/Vol] 0.58 10*3/uL Normal 0.10-1.[address] [facility] Comment on above: Performed By: #### L BJ BUCK, CP #### [address] [place], [place] [id number] Aircraft Engineer: Jesse Curry MD Monocytes/100 WBC (Bld) 4 % Normal 3-[address] [facility] Comment on above: Performed By: #### L BJ BUCK, CP #### [address] [place], [place] [id number] Aircraft Engineer: Jesse Curry MD Neutrophil (Seg) 88 % High 36-65 [facility] Comment on above: Performed By: #### L BJ BUCK, CP #### [address] [place], [place] [id number] Aircraft Engineer: Jesse Curry MD NRBC Automated 0.0 per 100 WBC Normal 0.[address] [facility] Comment on above: Performed By: #### L BJ BUCK, CP #### [address] [place], [place] [id number] Aircraft Engineer: Jesse Curry MD Platelet mean volume (Bld) [Entitic vol] 9.9 fL Normal 8.1-13.[address] [facility] Comment on above: Performed By: #### L IP, CDP, CP #### [facility] [address] [place], [place] [id number] Aircraft Engineer: Jesse Curry MD Platelets (Bld) [#/Vol] 299 10*3/uL Normal 138-[address] [facility] Comment on above: Performed By: #### L IP CDP, CP #### [facility] [address] [place], [place] [id number] Aircraft Engineer: Jesse Curry MD RBC (Bld) [#/Vol] 5.14 10*6/uL High 3.95-5.[address] [facility] Comment on above: Performed By: #### L IP CDP, CP #### [address] [place], [place] [id number] Aircraft Engineer: Jesse Curry MD WBC (Bld) [#/Vol] 14.3 10*3/uL High 3.5-11.[address] [facility] Comment on above: Performed By: #### L CIELO CDP, CP #### [address] [place] [address] Aircraft Engineer: Jesse Curry MD CT ABDOMEN PELVIS W [...] A Maldonado DO 09/22/22 Final result Normal [facility] Comp Metabolic Profon 2021 Albumin [Mass/Vol] 4.7 g/dL Normal 3.5-5.[address] [facility] Comment on above: Performed By: #### L BJ BUCK, CP #### [facility] [address] [place] [address] [place] [address] Aircraft Engineer: Jesse Curry MD Albumin/Glob Ratio 2.0 Normal 1.0-2.[address] [facility] Comment on above: Performed By: #### L BJ BUCK, CP #### [facility] [address] [place] [address] Aircraft Engineer: Jesse Curry MD Alkaline Phos 77 U/L Normal 35-104 [facility] Comment on above: Performed By: #### L BJ BUCK, CP #### [facility] [address] [place] [address] Aircraft Engineer: Jesse Curry MD ALT [Catalytic activity/Vol] 10 U/L Normal 5-[address] [facility] Comment on above: Performed By: #### L CIELO CDP, CP #### [facility] [address] [place], [place] [id number] Aircraft Engineer: Jesse Curry MD Anion gap [Moles/Vol] 12 mmol/L Normal 9-[address] [facility] Comment on above: Performed By: #### L IP, CDP, CP #### [facility] [address] [place], [place] [id number] Aircraft Engineer: Jesse Curry MD AST [Catalytic activity/Vol] 14 U/L Normal <[address] [facility] Comment on above: Performed By: #### L IP, CDP, CP #### [facility] [address] [place], [place] [id number] Aircraft Engineer: Jesse Curry MD Bilirubin [Mass/Vol] 0.6 mg/dL Normal 0.3-1.[address] [facility] Comment on above: Performed By: #### L IP, CDP, CP #### [facility] [address] [place], [place] [id number] Aircraft Engineer: Jesse Curry MD BUN/CRE Ratio 31 High 9-20 [facility] Comment on above: Performed By: #### L IP, CDP, CP #### [facility] [address] [place], [place] [id number] Aircraft Engineer: Jesse Curry MD Calcium [Mass/Vol] 9.8 mg/dL Normal 8.6-10.[address] [facility] Comment on above: Performed By: #### L IP, CDP, CP #### [facility] [address] [place], [place] 1336083 Aircraft Engineer: Jesse Curry MD Chloride [Moles/Vol] 104 mmol/L Normal 98-[address] [facility] Comment on above: Performed By: #### L IP, CDP, CP #### [facility] [address] [place], [place] [id number] Aircraft Engineer: Jesse Curry MD CO2 [Moles/Vol] 22 mmol/L Normal 20-31 [facility] Comment on above: Performed By: #### L IP, CDP, CP #### [facility] [address] [place] [address] Aircraft Engineer: Jesse Curry MD Creatinine [Mass/Vol] 0.85 mg/dL Normal 0.50-0.[address] [facility] Comment on above: Performed By: #### L IP, CDP, CP #### [facility] [address] [place] [address] Aircraft Engineer: Jesse Curry MD GFR/1.73 sq M.predicted among non-blacks MDRD (S/P/Bld) [Vol rate/Area] mL/min/{1.73_m2} Normal >[address] [facility] Comment on above: Result Comment: Effective [...] renal tubular secretion. Performed By: #### L IP, CDP, CP #### [facility] [address] [place] [address] [place] [address] Aircraft Engineer: Jesse Curry MD Glucose [Mass/Vol] 109 mg/dL High 70-[address] [facility] Comment on above: Performed By: #### L IP, CDP, CP #### [facility] [address] [place] [address] Aircraft Engineer: Jesse Curry MD Potassium [Moles/Vol] 4.0 mmol/L Normal 3.7-5.[address] [facility] Comment on above: Performed By: #### L IP, CDP, CP #### [facility] [address] [place] [address] Aircraft Engineer: Jesse Curry MD Protein [Mass/Vol] 7.1 g/dL Normal 6.4-8.[address] [facility] Comment on above: Performed By: #### L IP, CDP, CP #### [facility] [address] [place] [address] Aircraft Engineer: Jesse Curry MD Sodium [Moles/Vol] 138 mmol/L Normal 135-[address] [facility] Comment on above: Performed By: #### L IP, CDP, CP #### [facility] [address] [place] [address] Aircraft Engineer: Jesse Curry MD Urea nitrogen [Mass/Vol] 26 mg/dL High 6-[address] [facility] Comment on above: Performed By: #### L IP, CDP, CP #### [facility] [address] [place] [address] Aircraft Engineer: Jesse Curry MD HCG, ,Urineon 09-22 Beta HCG ( test) Ql (U) Negative Normal NEG [facility] Comment on above: Result Comment: Spec imens with hCG levels near the threshold of the test (25 mIU/mL) may give a negative or indeterminate result. In such cases, another test should be performed with a new specimen in 48-72 hours. If early is suspected clinically in this setting, correlation with quantitative serum b-hCG level is suggested. [facility] has confirmed the use of plasma for this test. This has not been cleared or approved by the U.S. Food and Drug Administration. The FDA has determined that such clearance is not necessary. Performed By: #### U HCG #### [facility] [address] [place] [address] Aircraft Engineer: Jesse Curry MD Lactic Acidon 09-22-2022 Lactate [Moles/Vol] 1.8 mmol/L Normal 0.5-2.[address] [facility] Comment on above: Performed By: #### L ACTIC #### [facility] [address] [place] [address] Dr. [place] [id number] Aircraft Engineer: Jesse Curry MD Lipaseon 09-22-2022 Lipase [Catalytic activity/Vol] 39 U/L Normal 13-[address] [facility] Comment on above: Performed By: #### L IP, CDP, CP #### [facility] [address] [place], [place] [id number] Aircraft Engineer: Jesse Curry MD UA w/Reflex Cultureon 2021 Bilirubin, SemiQt,Ur Negative Normal NEG [facility] Comment on above: Performed By: #### U MICAO, UAX #### [facility] [address] [place] [address] Dr. [place], [place] [id number] Aircraft Engineer: Jesse Curry MD Blood, Urine Negative Normal NEG [facility] Comment on above: Performed By: #### U MICAO, UAX #### [facility] [address] [place], [place] [id number] Aircraft Engineer: Jesse Curry MD Clarity (U) Clear Normal CLEAR [facility] Comment on above: Performed By: #### U MICAO, UAX #### [facility] [address] [place], [place] [id number] Aircraft Engineer: Jesse Curry MD Color (U) Yellow Normal YEL [facility] Comment on above: Performed By: #### U MICAO, UAX #### [facility] [address] [place], [place] [id number] Aircraft Engineer: Jesse Curry MD Glucose Ql (U) Negative Normal NEG [facility] Comment on above: Performed By: #### U MICAO, UAX #### [facility] [address] [place], [place] [id number] Aircraft Engineer: Jesse Curry MD Ketones Ql (U) Negative Normal NEG [facility] Comment on above: Performed By: #### U MICAO, UAX #### [facility] [address] [place] [address] Dr. [place], [place] 6457983 Aircraft Engineer: Jesse Curry MD Leukocyte esterase Test strip Ql (U) Negative Normal NEG [facility] Comment on above: Performed By: #### U MICAO, UAX #### [facility] [address] [place] [address] Dr. [place], [place] 1634183 Aircraft Engineer: Jesse Curry MD Nitrite,Ur Negative Normal NEG [facility] Comment on above: Performed By: #### U MICAO, UAX #### [address] [place], [place] [id number] Aircraft Engineer: Jesse Curry MD PH,Ur 8.0 Normal 5.0-9.[address] [facility] Comment on above: Performed By: #### U MICAO, UAX #### [address] [place], [place] [id number] Aircraft Engineer: Jesse Curry MD Protein Ql (U) Negative Normal NEG [facility] Comment on above: Performed By: #### U MICAO, UAX #### [address] [place], [place] [id number] Aircraft Engineer: Jesse Curry MD Spec. [place],Ur 1.020 Normal 1.010-1.020 [facility] Comment on above: Performed By: #### U MICAO, UAX #### [facility] [address] [place] [address] Dr. [place], [place] [phone] Aircraft Engineer: Jesse Curry MD Urobilinogen,Ur Normal Normal NORM [facility] Comment on above: Performed By: #### U MICAO, UAX #### [address] [place], [place] [id number] Aircraft Engineer: Jesse Curry MD Urinalysis,Microon 2 Bacteria TRACE Abnormal NONE [facility] Comment on above: Performed By: #### U MICAO, UAX #### [facility] [address] [place], [place] [phone] Aircraft Engineer: Jesse Curry MD Epithelial cells LM Ql (Urine sed) 0 TO 2 Normal 0-[address] [facility] Comment on above: Performed By: #### U MICAO, UAX #### [facility] [address] [place], [facility]83 Aircraft Engineer: Jesse Curry MD Urine RBC's None Normal 0-[address] [facility] Comment on above: Performed By: #### U MICAO, UAX #### [facility] [address] [place], [facility]83 Aircraft Engineer: Jesse Curry MD Urine WBC's 0 TO 2 Normal 0-[address] [facility] Comment on above: Performed By: #### U MICAO, UAX #### [facility] [address] [place], [facility]83 Aircraft Engineer: Jesse Curry MD CBC AUTO DIFFon 02-20-2022 BASO # 0.1 103/ul Normal 0.0-0.1 [facility] Comment on above: Performed By: #### C BC #### [facility] [address] [place] [address] Dr. Claire Mayes Basophils/100 WBC (Bld) 0.8 % Normal 0.2-2.0 [facility] Comment on above: Performed By: #### C BC #### [facility] [address] [place] [address] Dr. Claire Mayes EO # 0.2 103/ul Normal 0.0-0.7 [facility] Comment on above: Performed By: #### C BC #### [facility] [address] [place] [address] Dr. Claire Mayes Eosinophils/100 WBC (Bld) 0.9 % Normal 0.9-7.0 [facility] Comment on above: Performed By: #### C BC #### [facility] [address] [place] [address] Dr. Claire Mayes Erythrocyte distribution width (RBC) [Ratio] 15.0 % Normal 11.0-15.0 [facility] Comment on above: Performed By: #### C BC #### [facility] [address] [place] [address] Dr. Claire Mayes Hematocrit (Bld) [Volume fraction] 31.3 % Critically low 36.0-48.0 [facility] Comment on above: Performed By: #### C BC #### [facility] [address] [place] [address] Dr. Claire Mayes Hemoglobin (Bld) [Mass/Vol] 10.3 g/dL Critically low 12.0-16.0 [facility] Comment on above: Performed By: #### C BC #### [facility] [address] [place] [address] Dr. Claire Mayes IG # 0.21 10e3/ul Critically high 0.00-0.03 [facility] Comment on above: Performed By: #### C BC #### [facility] [address] [place] [address] Dr. Claire Mayes IG % 1.3 % Critically high 0.0-0.5 [facility] Comment on above: Performed By: #### C BC #### [facility] [address] [place] [address] Dr. Claire Mayes LYMPH # 2.1 103/ul Normal 1.2-3.8 [facility] Comment on above: Performed By: #### C BC #### [facility] [address] [place] [address] Dr. Claire Mayes Lymphocytes/100 WBC (Bld) 12.6 % Critically low 20.5-60.0 [facility] Comment on above: Performed By: #### C BC #### [facility] [address] [place] [address] Dr. Claire Mayes MANUAL DIFF REQ NO Normal [facility] Comment on above: Performed By: #### C BC #### [facility] [address] [place] [address] Dr. Claire Mayes MCH (RBC) [Entitic mass] 29.8 pg Normal 26.7-34.0 [facility] Comment on above: Performed By: #### C BC #### [facility] [address] [address] [address] Claire Mayes MCHC (RBC) [Mass/Vol] 32.9 g/dL Normal 29.9-35.2 [facility] Comment on above: Performed By: #### C BC #### [facility] [address] [place] [address] Dr. Claire Mayes MCV (RBC) [Entitic vol] 90.5 fL Normal 81.0-99.0 [facility] Comment on above: Performed By: #### C BC #### [facility] [address] [place] [address] Dr. Claire Mayes MONO # 0.8 103/ul Normal 0.3-0.8 [facility] Comment on above: Performed By: #### C BC #### [facility] [address] [place] [address] Dr. Claire Mayes Monocytes/100 WBC (Bld) 5.1 % Normal 1.7-12.0 [facility] Comment on above: Performed By: #### C BC #### [facility] [address] [place] [address] Dr. Claire Mayes NEUT # 13.2 103/ul Critically high 1.4-6.5 [facility] Comment on above: Performed By: #### C BC #### [facility] [address] [place] [address] Dr. Claire Mayes Neutrophils/100 WBC (Bld) 79.3 % Critically high 43.0-75.0 [facility] Comment on above: Performed By: #### C BC #### [facility] [address] [place] [address] Dr. Claire Mayes Platelet mean volume (Bld) [Entitic vol] 10.4 fL Normal 9.5-13.5 [facility] Comment on above: Performed By: #### C BC #### [facility] [address] [place] [address] Dr. Claire Mayes PLT 233 103/ul Normal 150-450 [facility] Comment on above: Performed By: #### C BC #### [facility] [address] [place] [address] Dr. Claire Mayes RBC 3.46 106/ul Critically low 4.20-5.40 [facility] Comment on above: Performed By: #### C BC #### [facility] [address] [place] [address] Dr. Claire Mayes WBC 16.6 103/ul Critically high 4.0-11.0 [facility] Comment on above: Performed By: #### C BC #### [facility] [address] [place] [address] Dr. Claire Mayes CBC AUTO DIFFon 02-18-2022 BASO # 0.1 103/ul Normal 0.0-0.1 [facility] Comment on above: Performed By: #### C BC #### [facility] [address] [place] [address] Dr. Claire Mayes Basophils/100 WBC (Bld) 0.7 % Normal 0.2-2.0 [facility] Comment on above: Performed By: #### C BC #### [facility] [address] [place] [address] Dr. Claire Mayes EO # 0.2 103/ul Normal 0.0-0.7 [facility] Comment on above: Performed By: #### C BC #### [facility] [address] [place] [address] Dr. Claire Mayes Eosinophils/100 WBC (Bld) 1.2 % Normal 0.9-7.0 [facility] Comment on above: Performed By: #### C BC #### [facility] [address] [place] [address] Dr. Claire Mayes Erythrocyte distribution width (RBC) [Ratio] 15.0 % Normal 11.0-15.0 [facility] Comment on above: Performed By: #### C BC #### [facility] [address] [place] [address] Dr. Claire Mayes Hematocrit (Bld) [Volume fraction] 35.1 % Critically low 36.0-48.0 [facility] Comment on above: Performed By: #### C BC #### [facility] [address] [place] [address] Dr. Claire Mayes Hemoglobin (Bld) [Mass/Vol] 11.8 g/dL Critically low 12.0-16.0 [facility] Comment on above: Performed By: #### C BC #### [facility] [address] [place] [address] Dr. Claire Mayes IG # 0.30 10e3/ul Critically high 0.00-0.03 [facility] Comment on above: Performed By: #### C BC #### [facility] [address] [place] [address] Dr. Claire Mayes IG % 1.9 % Critically high 0.0-0.5 [facility] Comment on above: Performed By: #### C BC #### [facility] [address] [place] [address] Dr. Claire Mayes LYMPH # 2.9 103/ul Normal 1.2-3.8 [facility] Comment on above: Performed By: #### C BC #### [facility] [address] [place] [address] Dr. Claire Mayes Lymphocytes/100 WBC (Bld) 18.5 % Critically low 20.5-60.0 [facility] Comment on above: Performed By: #### C BC #### [facility] [address] [place] [address] Dr. Claire Mayes MANUAL DIFF REQ NO Normal [facility] Comment on above: Performed By: #### C BC #### [facility] [address] [place] [address] Dr. Claire Mayes MCH (RBC) [Entitic mass] 30.2 pg Normal 26.7-34.0 [facility] Comment on above: Performed By: #### C BC #### [facility] [address] [place] [address] Dr. Claire Mayes MCHC (RBC) [Mass/Vol] 33.6 g/dL Normal 29.9-35.2 [facility] Comment on above: Performed By: #### C BC #### [facility] [address] [place] [address] Dr. Claire Mayes MCV (RBC) [Entitic vol] 89.8 fL Normal 81.0-99.0 [facility] Comment on above: Performed By: #### C BC #### [facility] [address] [place] [address] Dr. Claire Mayes MONO # 0.7 103/ul Normal 0.3-0.8 [facility] Comment on above: Performed By: #### C BC #### [facility] [address] [place] [address] Dr. Claire Mayes Monocytes/100 WBC (Bld) 4.7 % Normal 1.7-12.0 [facility] Comment on above: Performed By: #### C BC #### [facility] [address] [place] [address] Dr. Claire Mayes NEUT # 11.3 103/ul Critically high 1.4-6.5 [facility] Comment on above: Performed By: #### C BC #### [facility] [address] [place] [address] Dr. Claire Mayes Neutrophils/100 WBC (Bld) 73.0 % Normal 43.0-75.0 [facility] Comment on above: Performed By: #### C BC #### [facility] [address] [place] [address] Dr. Claire Mayes Platelet mean volume (Bld) [Entitic vol] 10.8 fL Normal 9.5-13.5 [facility] Comment on above: Performed By: #### C BC #### [facility] [address] [place] [address] Dr. Claire Mayes PLT 233 103/ul Normal 150-450 [facility] Comment on above: Performed By: #### C BC #### [facility] [address] [place] [address] Dr. Claire Mayes RBC 3.91 106/ul Critically low 4.20-5.40 [facility] Comment on above: Performed By: #### C BC #### [facility] [address] [address] [address] Claire Mayes WBC 15.5 103/ul Critically high 4.0-11.0 [facility] Comment on above: Performed By: #### C BC #### [facility] [address] [address] [address] Claire Mayes Covid-19 PCR (CVDTBH)on SARS-CoV-2 (COVID-19) RNA FERDINAND+probe Ql (Unsp spec) Not detected Normal NOT DETECTED [facility] Comment on above: Result Comment: When diagnostic [...] for this test is supported by the [place] of Health and Human Service's declaration that [...] used). Performed By: #### C VDTBH #### [facility] [address] [place] [address] Dr. Claire Mayes DRUG SCREEN RAPID (URINE)on 02-18-2022 AMP Negative Normal NEGATIVE [facility] Comment on above: Performed By: #### D RUGRPD #### [facility] [address] [place] [address] Dr. Claire Mayes BAR Negative Normal NEGATIVE [facility] Comment on above: Performed By: #### D RUGRPD #### [facility] [address] [place] [address] Dr. Claire Mayes BUP Negative Normal NEGATIVE [facility] Comment on above: Performed By: #### D RUGRPD #### [facility] [address] [address] [address] Claire Mayes BZO Negative Normal NEGATIVE [facility] Comment on above: Performed By: #### D RUGRPD #### [facility] [address] [place] [address] Dr. Claire Mayes KIT Negative Normal NEGATIVE [facility] Comment on above: Performed By: #### D RUGRPD #### [facility] [address] [address] [address] Claire Mayes CUT-OFFS SEE BELOW Normal [facility] Comment on above: Result Comment: AMP (Amphetamine): 500ng/mL, BAR (Barbituates): 200 ng/mL, BZO (Benzodiazepines): 150 ng/mL, BUP (Buprenorphine): 10 ng/mL, KIT (Cocaine): 150 ng/mL, mAMP (Methamphetamine): 500 ng/mL, MTD (Methadone): 200 ng/mL, OPI (Opiates): 100 ng/mL, OXY (Oxycodone): 100 ng/mL, PCP (Phencyclidine): 25 ng/mL, PPX (Propoxyphene): 300 ng/mL, THC (Cannabinoids): 50 ng/mL, TCA (Trycyclic Antidepressants): 300 ng/mL Performed By: #### D RUGRPD #### [facility] [address] [place] [address] Dr. Claire Mayes DRUG CUT HEADER DRUG CLASS TEST SYST EM CUT-OFF CONCENTRATIONS ARE FOLLOWS: Normal [facility] Comment on above: Performed By: #### D RUGRPD #### [facility] [address] [place] [address] Dr. Claire Mayes mAMP Negative Normal NEGATIVE [facility] Comment on above: Performed By: #### D RUGRPD #### [facility] [address] [place] [address] Dr. Claire Mayes MTD Negative Normal NEGATIVE [facility] Comment on above: Performed By: #### D RUGRPD #### [facility] [address] [address] [address] Claire Mayes OPI Negative Normal NEGATIVE [facility] Comment on above: Performed By: #### D RUGRPD #### [facility] [address] [place] [address] Dr. Claire Mayes OXY Negative Normal NEGATIVE [facility] Comment on above: Performed By: #### D RUGRPD #### [facility] [address] [place] [address] Dr. Claire Mayes PCP Negative Normal NEGATIVE [facility] Comment on above: Performed By: #### D RUGRPD #### [facility] [address] [place] [address] Dr. Claire Mayes PPX Negative Normal NEGATIVE [facility] Comment on above: Performed By: #### D RUGRPD #### [facility] [address] [place] [address] Dr. Claire Mayes TCA Negative Normal NEGATIVE [facility] Comment on above: Performed By: #### D RUGRPD #### [facility] [address] [place] [address] Dr. Claire Mayes THC Negative Normal NEGATIVE [facility] Comment on above: Performed By: #### D RUGRPD #### [facility] [address] [place] [address] Dr. Claire Mayes TYPE AND SCREENon 02-18-2022 TYPE AND SCREEN Negative Normal [facility] Comment on above: Performed By: #### T NS #### [facility] [address] [place] [address] Dr. Claire Mayes US PREG BIOPHY W [...] JESSE THOMAS Date: 2022-02-17 14:27 Normal [facility] US PREG BIOPHY W NON STRESSo n [...] BLU FELIPE Date: 2022-02-10 16:40 Normal [facility] GROUP B STREP CULTUREon 01-14 S. agalactiae Ag Ql (Unsp spec) Culture Observations: Beta Strep called to Belgica Lange at office 02/04/22 @150[facility] Isolate 1 Streptococcus agalactiae Heavy growth of ORGANISM 1 Streptococcus agalactiae ANTIBIOTIC M.I.C RX STATUS Benzylpenicillin <=0.06 S F Ampicillin <=0.25 S F Cefotaxime <=0.12 S F Ceftriaxone <=0.12 S F Levofloxacin 0.5 S F Erythromycin 2 R F Clindamycin <=0.25 S F Linezolid <=2 S F Vancomycin 0.5 S F Tetracycline >=16 R F Normal [facility] Comment on above: Performed By: #### G BSCX #### [facility] [address] [place] [address] Dr. Claire Mayes US PREG BIOPHY W [...] by: JESSE THOMAS Date: 2022-02-03 16:02 Normal [facility] LMPon 06-19-2021 Last menstrual period start date [id number] MZ-RIHIA-Wzxdb n 310 IVF Work Phone: GAS WELDER - Office Visiton GAS WELDER - Office Visit Diagnoses/Problems Assessed Irregular menses (626.4) (N92.6) Female infertility (628.9) (N97.9) Protein S deficiency (289.81) (D68.59) Occupation Formerly [employer] ED Provider Impressions 30 year-old desires [...] ] Imaging: [place] US, can do at [place] [x ] Vitamin D, TSH, prolactin [ [...] pandemic. Verbal consent obtained for telemedicine visit. 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: LMP: 05/29/21 Menstrual cycles: Have been fairly regular for the past 3 months; 30-35 days Pap smear: 2019, up to date Mammogram: None PMH/Surg Hx/Social Hx: See below Hx of Clotting disorders: Yes- Protein S deficiency Currently on Lovenox 40 mg daily Was on Lovenox 60 mg daily prior to Needs to be on therapeutic dosing when Genetic Screening Hx: Web[employer] foresight screen negative Partner History: Franklin Ashley 04/09/1990 SA in past year: 2.8 cc 125 mil/mL 69% motility QHW=737 million (recent IUI sample) Morph from original SA was 2.8% Active Problems Problems 16 weeks gest (more content not included)... Normal [employer] CBC AND DIFFERENTIALon 08-06 % AUTOMATED IMMATURE GRAN 0.3 % Normal 0.0 - 0.9 [facility] Comment on above: Result Comment: Graciela ture Granulocyte Count (IG) includes promyelocytes, myelocytes and metamyelocytes but does not include bands. Percent differential counts (%) should be interpreted in the context of the absolute cell counts (cells/L). Performed By: #### C BCDF #### [address] [place] [address] Basophils (Bld) [#/Vol] 0.09 10*3/uL Normal 0.00 - 0.10 [facility] Comment on above: Performed By: #### C BCDF #### [address] [place] [address] Basophils/100 WBC (Bld) 0.9 % Normal 0.0 - 2.0 [facility] Comment on above: Performed By: #### C BCDF #### [address] [place] [address] Eosinophils (Bld) [#/Vol] 0.23 10*3/uL Normal 0.00 - 0.70 [facility] Comment on above: Performed By: #### C BCDF #### [address] [place] [address] Eosinophils/100 WBC (Bld) 2.4 % Normal 0.0 - 6.0 [facility] Comment on above: Performed By: #### C BCDF #### [address] [place] [address] Erythrocyte distribution width (RBC) [Ratio] 14.3 % Normal 11.5 - 14.5 [facility] Comment on above: Performed By: #### C BCDF #### [address] [place] [address] Hematocrit (Bld) [Volume fraction] 40.4 % Normal 36.0 - 46.0 [facility] Comment on above: Performed By: #### C BCDF #### [address] [place] [address] Hemoglobin (Bld) [Mass/Vol] 12.9 g/dL Normal 12.0 - 16.0 [facility] Comment on above: Performed By: #### C BCDF #### [address] [place] [address] Lymphocytes (Bld) [#/Vol] 2.44 10*3/uL Normal 1.20 - 4.80 [facility] Comment on above: Performed By: #### C BCDF #### [address] [place] [address] Lymphocytes/100 WBC (Bld) 25.7 % Normal 13.0 - 44.0 [facility] Comment on above: Performed By: #### C BCDF #### [address] [place] [address] MCHC (RBC) [Mass/Vol] 31.9 g/dL Low 32.0 - 36.0 [facility] Comment on above: Performed By: #### C BCDF #### [address] [place] [address] MCV (RBC) [Entitic vol] 88 fL Normal 80 - 100 [facility] Comment on above: Performed By: #### C BCDF #### [address] [place] [address] Monocytes (Bld) [#/Vol] 0.55 10*3/uL Normal 0.10 - 1.00 [facility] Comment on above: Performed By: #### C BCDF #### [address] [place] [address] Monocytes/100 WBC (Bld) 5.8 % Normal 2.0 - 10.0 [facility] Comment on above: Performed By: #### C BCDF #### [address] [place] [address] Neutrophils (Bld) [#/Vol] 6.15 10*3/uL Normal 1.20 - 7.70 [facility] Comment on above: Performed By: #### C BCDF #### [address] [place] [address] Neutrophils/100 WBC (Bld) 64.9 % Normal 40.0 - 80.0 [facility] Comment on above: Performed By: #### C BCDF #### [address] [place] [address] Platelets (Bld) [#/Vol] 410 10*3/uL Normal 150 - 450 [facility] Comment on above: Performed By: #### C BCDF #### [address] [place] [address] RBC (Bld) [#/Vol] 4.58 x10E12/L Normal 4.00 - 5.20 [facility] Comment on above: Performed By: #### C BCDF #### [address] [place] [address] WBC (Bld) [#/Vol] 9.5 10*3/uL Normal 4.4 - 11.3 [facility] Comment on above: Performed By: #### C BCDF #### [address] [place] [address] GAS WELDER - Visiton 08-06-2020 GAS WELDER - Visit Chief Complaint The patient is [...] with LMWH and has follow-up with her Developer Programmer Analyst 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 Reports her asthma is stable. 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 She has Hematology follow-up today following our [...] Aug 06 2020 2:00PM EST (Author) [facility] + Diffe marc 06-27-2020 Basophils/100 WBC (Bld) 0.5 % 0.0 - 2.0 TD-YUHDI-Jwkpu 2nd Oh Work Phone: Eosinophils (Bld) [#/Vol] 0.24 {x10E9/L} See Below QW-DEMUB-Kvyko 2nd Fl Work Phone: Comment on above: Reference Range: 0.0 0 - 0.70 Eosinophils/100 WBC (Bld) 1.1 % 0.0 - 6.0 UY-TPENO-Kxaiy wn 2nd Fl Work Phone: Erythrocyte distribution width (RBC) [Ratio] 15.0 % above high threshold See Below XC-EWCFB-Cgzqu wn 2nd Fl Work Phone: Comment on above: Reference Range: 11. 5 - 14.5 Hematocrit (Bld) [Volume fraction] 30.0 % below low threshold See Below WQ-AYSOI-Fcxms wn 2nd Fl Work Phone: Comment on above: Reference Range: 36. 0 - 46.0 Hemoglobin (Bld) [Mass/Vol] 9.8 g/dL below low threshold See Below BK-WXUAG-Tzkim wn 2nd Fl Work Phone: Comment on above: Reference Range: 12. 0 - 16.0 Lymphocytes (Bld) [#/Vol] 2.25 {x10E9/L} See Below JE-DEBIV-Cjjzc wn 2nd Fl Work Phone: Comment on above: Reference Range: 1.2 0 - 4.80 Lymphocytes/100 WBC (Bld) 10.4 % See Below VM-PAPKZ-Lgkfa wn 2nd Fl Work Phone: Comment on above: Reference Range: 13. 0 - 44.0 MCHC (RBC) [Mass/Vol] 32.7 g/dL See Below GS-EANHN-Zzlai wn 2nd Fl Work Phone: Comment on above: Reference Range: 32. 0 - 36.0 MCV (RBC) [Entitic vol] 91 fL 80 - 100 NK-ZFMJO-Njwwa wn 2nd Fl Work Phone: Monocytes (Bld) [#/Vol] 0.84 {x10E9/L} See Below QM-ERXAC-Xquof wn 2nd Fl Work Phone: Comment on above: Reference Range: 0.1 0 - 1.00 Monocytes/100 WBC (Bld) 3.9 % 2.0 - 10.0 AQ-MFXYX-Hrpur wn 2nd Fl Work Phone: Neutrophils/100 WBC (Bld) 82.7 % See Below MH-GCWMH-Cunvn wn 2nd Fl Work Phone: Comment on above: Reference Range: 40. 0 - 80.0 Platelets (Bld) [#/Vol] 225 {x10E9/L} 150 - 450 QF-JYFWB-Mrjfz wn 2nd Fl Work Phone: RBC (Bld) [#/Vol] 3.31 {x10E12/L} below low threshold See Below XP-WRWVL-Mjkmm [facility] Fl Work Phone: Comment on above: Reference Range: 4.0 0 - 5.20 WBC (Bld) [#/Vol] 0.0 {/100_WBC} 0.0-0.0 MG- OBGYN-[address] Fl Work Phone: WBC (Bld) [#/Vol] 21.6 {x10E9/L} above high threshold 4.4 - 11.3 RY-UUCKV-Kwhzs wn 2nd Fl Work Phone: Complete Blood Count + Differential 0.11 {x10E9/L} above high threshold See Below AJ-RFXEJ-Hjfst wn 2nd Fl Work Phone: Comment on above: Reference Range: 0.0 0 - 0.10 Complete Blood Count + Differential 1.4 % above high threshold 0.0 - 0.9 KJ-LAZCF-Coflw[address] Work Phone: Comment on above: Immature Granulocyte Count (IG) includes promyelocytes, myelocytes and metamyelocytes but does not include bands. Percent differential counts (%) should be interpreted in the context of the absolute cell counts (cells/L). Complete Blood Count + Differential 17.85 {x10E9/L} above high threshold See Below TF-VTWMU-Tulmc wn 2nd Fl Work Phone: Comment on above: Reference Range: 1.2 0 - 7.70 Hematologyon 06-26-2020 Hematocrit (Bld) [Volume fraction] 30.5 % below low threshold See Below GZ-IDHXE-Fxwvm [facility] Fl Work Phone: Comment on above: Reference Range: 36. 0 - 46.0 Hemoglobin (Bld) [Mass/Vol] 10.7 g/dL below low threshold See Below LY-WJMLC-Slllq wn 2nd Fl Work Phone: Comment on above: Reference Range: 12. 0 - 16.0 MCV (RBC) [Entitic vol] 84 fL 80 - 100 QO-EEZCV-Cseln wn 2nd Fl Work Phone: Platelets (Bld) [#/Vol] 258 {x10E9/L} 150 - 450 BX-XFGCY-Kioed wn 2nd Fl Work Phone: RBC (Bld) [#/Vol] 3.62 {x10E12/L} below low threshold See Below LX-CIHSJ-Acqjz wn 2nd Fl Work Phone: Comment on above: Reference Range: 4.0 0 - 5.20 WBC (Bld) [#/Vol] 0.0 {/100_WBC} 0.0-0.0 MG- OBGYN-Midto wn 2nd Fl Work Phone: WBC (Bld) [#/Vol] 35.7 {x10E9/L} above high threshold 4.4 - 11.3 ES-AWASW-Wiudp wn 2nd Fl Work Phone: Otheron 06-26-2020 Erythrocyte distribution width (RBC) [Ratio] 14.6 % above high threshold See Below FG-INLUN-Pbhco wn 2nd Fl Work Phone: Comment on above: Reference Range: 11. 5 - 14.5 MCHC (RBC) [Mass/Vol] 35.1 g/dL See Below HW-FHURH-Odrjf wn 2nd Fl Work Phone: Comment on [...] 3.5 cm, located 1.0 cm from themargin. Track Repair Laborer sections are submitted in 5 cassettes.AXQ/LMPSummary of Cassettes:Specimen Label SiteA 1 umbilical cord sections 2 membrane rolls 3 placental parenchyma, umbilical cord insertion site 4 placental parenchyma 5 placental parenchyma, lesionaxq/06/26/2020 XM-JFFBT-Hafan wn 2nd Fl Work Phone: Coronavirus 2019 RNA by PCR, Symptomaticon 06-25-2020 Coronavirus 2019 RNA by PCR, Symptomatic NOT DETECTED See Below [address] Work Phone: Comment on above: SOURCE: [...] this test method. Fact sheet for providers: www.fda.gov/media/612814/downloadFact sheet for patients: www.fda.gov/media/704638/downloadThis test has received FDA Emergency Use Authorization (EUA) and has been verified by [facility] ([facility]). This test is only authorized for the duration of time that circumstances exist to justify the authorization of the emergency use of in vitro diagnostic tests for the detection of SARS-CoV-2 virus and/or diagnosis of COVID-19 infection under section 564(b)(1) of the Act, 21 U.S.C. 360bbb-3(b)(1), unless the authorization is terminated or revoked sooner. [facility] is certified under CLIA-88 as qualified to perform high complexity testing. Testing is performed in the [facility] laboratories located at [address] [place] [address]. Hematologyon 06-25-2020 ABO group Nom (Bld) A [address] Work Phone: Blood group antibody screen Ql Negative [address] Work Phone: Hematocrit (Bld) [Volume fraction] 34.7 % below low threshold See Below [address] Work Phone: Comment on above: Reference Range: 36. 0 - 46.0 Hemoglobin (Bld) [Mass/Vol] 11.6 g/dL below low threshold See Below [address] Fl Work Phone: Comment on above: Reference Range: 12. 0 - 16.0 MCV (RBC) [Entitic vol] 90 fL 80 - 100 BN-OZOGV-Ndrno [facility] Fl Work Phone: Platelets (Bld) [#/Vol] 268 {x10E9/L} 150 - 450 OF-QECWH-Eucdu wn 2nd Fl Work Phone: RBC (Bld) [#/Vol] 3.85 {x10E12/L} below low threshold See Below SZ-VYAZU-Gigrk [facility] Fl Work Phone: Comment on above: Reference Range: 4.0 0 - 5.20 Rh immune globulin screen (Bld) [Interp] Positive AG-QZXND-Rwhvn wn 2nd Fl Work Phone: WBC (Bld) [#/Vol] 0.0 {/100_WBC} 0.0-0.0 MG- OBGYN-[address] Work Phone: WBC (Bld) [#/Vol] 15.5 {x10E9/L} above high threshold 4.4 - 11.3 LO-AXSEX-Zbswl wn 2nd Fl Work Phone: Otheron 06-25-2020 Erythrocyte distribution width (RBC) [Ratio] 14.4 % See Below KV-HCPZD-Fwsvp wn 2nd Fl Work Phone: Comment on above: Reference Range: 11. 5 - 14.5 MCHC (RBC) [Mass/Vol] 33.4 g/dL See Below VE-UUCUM-Ywcrx wn 2nd Fl Work Phone: Comment on above: Reference Range: 32. 0 - 36.0 SYPHILIS SCREENING WITH REFL EXon 06-25-2020 T. pallidum IgG+IgM IA Ql (S) NONREACTIVE See Below JD-CBJHG-E[facility] Work Phone: Comment on above: SOURCE: Reference Ra nge: NONREACTIVENo significant level of Treponema pallidum antibody detected. Repeat testing in 2 to 4 weeks may be considered if early infection or incubating syphilis infection is suspected. Imm/Pathon 06-07-2020 Bacteria identified Aer cx Nom (Genital specimen) PATIENT: KIARA ASHLEY LOCATION: C1009 BILL#: [id number] : 89 AGE: SEX: F ORDERED BY: PARAS GUEVARA: VAGINAL COLLECTED: 06/07/20 09:36ANTIBIOTICS AT [facility].: RECEIVED : 06/08/20 07:27SITE: VAGINAL R E S U L T S GROUP B STREP SCREEN PRELIM 06/09/20 08:35 CULTURE IN PROGRESS. MG-SELOM-KNG 1200 [place] Work Phone: Bacteria identified Aer cx Nom (Genital specimen) PATIENT: KIARA ASHLEY LOCATION: C1009 BILL#: [id number] : 89 AGE: SEX: F ORDERED BY: PARAS GUEVARA: VAGINAL COLLECTED: 06/07/20 09:36ANTIBIOTICS AT [facility].: RECEIVED : 06/08/20 07:27SITE: VAGINAL R E S U L T S GROUP B STREP SCREEN FINAL 06/10/20 11:54 NEGATIVE FOR GROUP B BETA STREP. TV-LVVYX-Vwdro wn 2nd Fl Work Phone: Otheron 06-07-2020 [...] signed by: RILEY TREVIÑO 06/07/20 09:33 Normal AP-CWMBR-LRG 1200 [place] Work Phone: Comment on above: ORDER REVISED TO A O B FOLLOW UP OR REPEAT SCAN BY RADIOLOGIST; Original Order Number: [id number] CBC AND DIFFERENTIALon 04-24 % AUTOMATED IMMATURE GRAN 1.9 % High 0.0 - 0.9 [facility] [place] Comment on above: Result Comment: Graciela ture Granulocyte Count (IG) includes promyelocytes, myelocytes and metamyelocytes but does not include bands. Percent differential counts (%) should be interpreted in the context of the absolute cell counts (cells/L). Performed By: #### C BCDF #### [address] [place] [address] Basophils (Bld) [#/Vol] 0.08 10*3/uL Normal 0.00 - 0.10 [facility] Comment on above: Performed By: #### C BCDF #### [address] [place] [address] Basophils/100 WBC (Bld) 0.5 % Normal 0.0 - 2.0 [facility] Comment on above: Performed By: #### C BCDF #### [address] [place] [address] Eosinophils (Bld) [#/Vol] 0.22 10*3/uL Normal 0.00 - 0.70 [facility] [place] Comment on above: Performed By: #### C BCDF #### [address] [place] [address] Eosinophils/100 WBC (Bld) 1.5 % Normal 0.0 - 6.0 [facility] [place] Comment on above: Performed By: #### C BCDF #### [address] [place] [address] Erythrocyte distribution width (RBC) [Ratio] 14.0 % Normal 11.5 - 14.5 [facility] [place] Comment on above: Performed By: #### C BCDF #### [address] [place] [address] Hematocrit (Bld) [Volume fraction] 35.6 % Low 36.0 - 46.0 [facility] Comment on above: Performed By: #### C BCDF #### [address] [place] [address] Hemoglobin (Bld) [Mass/Vol] 11.8 g/dL Low 12.0 - 16.0 [facility] Comment on above: Performed By: #### C BCDF #### [address] [place] [address] Lymphocytes (Bld) [#/Vol] 2.38 10*3/uL Normal 1.20 - 4.80 [facility] Comment on above: Performed By: #### C BCDF #### [address] [place] [address] Lymphocytes/100 WBC (Bld) 16.0 % Normal 13.0 - 44.0 [facility] Comment on above: Performed By: #### C BCDF #### [address] [place] [address] MCHC (RBC) [Mass/Vol] 33.1 g/dL Normal 32.0 - 36.0 [facility] Comment on above: Performed By: #### C BCDF #### [address] [place] [address] MCV (RBC) [Entitic vol] 92 fL Normal 80 - 100 [facility] Comment on above: Performed By: #### C BCDF #### [address] [place] [address] Monocytes (Bld) [#/Vol] 0.74 10*3/uL Normal 0.10 - 1.00 [facility] Comment on above: Performed By: #### C BCDF #### [address] [place] [address] Monocytes/100 WBC (Bld) 5.0 % Normal 2.0 - 10.0 [facility] Comment on above: Performed By: #### C BCDF #### [address] [place] [address] Neutrophils (Bld) [#/Vol] 11.17 10*3/uL High 1.20 - 7.70 [facility] Comment on above: Performed By: #### C BCDF #### [address] [place] [address] Neutrophils/100 WBC (Bld) 75.1 % Normal 40.0 - 80.0 [facility] Comment on above: Performed By: #### C BCDF #### [address] [place] [address] Platelets (Bld) [#/Vol] 285 10*3/uL Normal 150 - 450 [facility] Comment on above: Performed By: #### C BCDF #### [address] [place] [address] RBC (Bld) [#/Vol] 3.89 x10E12/L Low 4.00 - 5.20 [facility] Comment on above: Performed By: #### C BCDF #### [address] [place] [address] WBC (Bld) [#/Vol] 14.9 10*3/uL High 4.4 - 11.3 [facility] [place] Comment on above: Performed By: #### C BCDF #### [address] [place] [address] COMPREHENSIVE PANELon 2019 ALP [Catalytic activity/Vol] 79 U/L Normal 33 - 110 [facility] Comment on above: Performed By: #### C MP #### [address] [place] [address] [place] [address] ALT [Catalytic activity/Vol] 7 U/L Normal 7 - 45 [facility] Comment on above: Result Comment: Melida ents treated with Sulfasalazine may generate falsely decreased results for ALT. Performed By: #### C MP #### [address] [place] [address] [place] [address] AST [Catalytic activity/Vol] 13 U/L Normal 9 - 39 [facility] Comment on above: Performed By: #### C MP #### [address] [place] [address] [place] [address] Bilirubin [Mass/Vol] 0.3 mg/dL Normal 0.0 - 1.2 [facility] Comment on above: Performed By: #### C MP #### [address] [place] [address] [place] [address] Protein [Mass/Vol] 5.9 g/dL Low 6.4 - 8.2 [facility] Comment on above: Performed By: #### C MP #### [address] [place] [address] [place] [address] Anion gap [Moles/Vol] 12 mmol/L Normal 10 - 20 [facility] Comment on above: Performed By: #### C MP #### [address] [place] [address] [place] [address] Chloride [Moles/Vol] 106 mmol/L Normal 98 - 107 [facility] Comment on above: Performed By: #### C MP #### [address] [place] [address] [place] [address] Potassium [Moles/Vol] 3.7 mmol/L Normal 3.5 - 5.3 [facility] Comment on above: Performed By: #### C MP #### [address] [place] [address] [place] [address] Sodium [Moles/Vol] 137 mmol/L Normal 136 - 145 [facility] Comment on above: Performed By: #### C MP #### [address] [place] [address] [place] [address] Calcium [Mass/Vol] 9.2 mg/dL Normal 8.6 - 10.3 [facility] Comment on above: Performed By: #### C MP #### [address] [place] [address] [place] [address] Glucose [Mass/Vol] 95 mg/dL Normal 74 - 99 [facility] Comment on above: Performed By: #### C MP #### [address] [place] [address] [place] [address] Urea nitrogen [Mass/Vol] 7 mg/dL Normal 6 - 23 [facility] Comment on above: Performed By: #### C MP #### [address] [place] [address] [place] [address] Albumin [Mass/Vol] 3.4 g/dL Normal 3.4 - 5.0 [facility] Comment on above: Performed By: #### C MP #### [address] [place] [address] [place] [address] Creatinine [Mass/Vol] 0.70 mg/dL Normal 0.50 - 1.05 [facility] Comment on above: Performed By: #### C MP #### [address] [place] [address] [place] [address] GFR- AM. >60 Normal >60 [facility] Comment on above: Result Comment: CALC ULATIONS OF ESTIMATED GFR ARE PERFORMED USING THE MDRD STUDY EQUATION FOR THE IDMS-TRACEABLE CREATININE METHODS. CLIN CHEM 2007;53:766-72 Performed By: #### C MP #### [address] [place] [address] [place] [address] GFR-NON AM. >60 Normal >60 [facility] Comment on above: Performed By: #### C MP #### [address] [place] [address] [place] [address] HCO3 (Bld) [Moles/Vol] 23 mmol/L Normal 21 - 32 [facility] Comment on above: Performed By: #### C MP #### [address] [place] [address] [place] [address] FERRITINon 04-24-2020 Ferritin [Mass/Vol] 8 ug/L Normal 8 - 150 [facility] Comment on above: Performed By: #### F ERRI #### [address] [place] [address] IRON + TIBCon 04-24-2020 % SATURATION 14 % Low 25 - 45 [facility] Comment on above: Performed By: #### I RONT #### [address] [place] [address] Iron [Mass/Vol] 65 ug/dL Normal 35 - 150 [facility] Comment on above: Performed By: #### I RONT #### [address] [place] [address] TIBC 449 ug/dL High 240 - 445 [facility] Comment on above: Performed By: #### I RONT #### [address] [place] [address] Complete Blood Count + Diffcharo tran 12-25-2019 Basophils/100 WBC (Bld) 1.0 % 0.0 - 2.0 CI-RZQWP-JTE 1200 [place] Work Phone: Eosinophils (Bld) [#/Vol] 0.37 {x10E9/L} See Below KQ-NWACI-OBD 1200 [place] Work Phone: Comment on above: Reference Range: 0.0 0 - 0.70 Eosinophils/100 WBC (Bld) 3.0 % 0.0 - 6.0 RX-MRCUZ-LLH 1200 [place] Work Phone: Erythrocyte distribution width (RBC) [Ratio] 13.4 % See Below TS-LNCIQ-HRI 1200 [place] Work Phone: Comment on above: Reference Range: 11. 5 - 14.5 Hematocrit (Bld) [Volume fraction] 41.8 % See Below YL-HXWXZ-ZKL 1200 [place] Work Phone: Comment on above: Reference Range: 36. 0 - 46.0 Hemoglobin (Bld) [Mass/Vol] 13.6 g/dL See Below BB-HKEQY-MAA 1200 [place] Work Phone: Comment on above: Reference Range: 12. 0 - 16.0 Lymphocytes (Bld) [#/Vol] 2.52 {x10E9/L} See Below OM-QCWKC-NQP 1200 [place] Work Phone: Comment on above: Reference Range: 1.2 0 - 4.80 Lymphocytes/100 WBC (Bld) 20.2 % See Below VA-ZZOMY-QRK 1200 [place] Work Phone: Comment on above: Reference Range: 13. 0 - 44.0 MCHC (RBC) [Mass/Vol] 32.5 g/dL See Below PY-YZEXK-RSH 1200 [place] Work Phone: Comment on above: Reference Range: 32. 0 - 36.0 MCV (RBC) [Entitic vol] 95 fL 80 - 100 GB-PRDRY-HZG 1200 [place] Work Phone: Monocytes (Bld) [#/Vol] 0.58 {x10E9/L} See Below DW-YDLLS-MSG 1200 [place] Work Phone: Comment on above: Reference Range: 0.1 0 - 1.00 Monocytes/100 WBC (Bld) 4.6 % 2.0 - 10.0 QC-YHLPE-SGO 1200 [place] Work Phone: Neutrophils/100 WBC (Bld) 70.6 % See Below DI-OMHPI-XKS 1200 [place] Work Phone: Comment on above: Reference Range: 40. 0 - 80.0 Platelets (Bld) [#/Vol] 372 {x10E9/L} 150 - 450 LM-QZLLR-YZN 1200 [place] Work Phone: RBC (Bld) [#/Vol] 4.40 {x10E12/L} See Below MG -OBGYN-MAC 1200 [place] Work Phone: Comment on above: Reference Range: 4.0 0 - 5.20 WBC (Bld) [#/Vol] 0.0 {/100_WBC} 0.0-0.0 MG- OBGYN-MAC 1200 [place] Work Phone: WBC (Bld) [#/Vol] 12.7 {x10E9/L} above high threshold 4.4 - 11.3 GK-TLPPL-TUG 1200 [place] Work Phone: Comment on above: SOURCE: Complete Blood Count + Differential 8.81 {x10E9/L} above high threshold See Below IO-SRVCU-ZML 1200 [place] Work Phone: Comment on above: Reference Range: 1.2 0 - 7.70 Complete Blood Count + Differential 0.6 % 0.0 - 0.9 PJ-NVEIP-KSD 1200 [place] Work Phone: Comment on above: Percent differential counts (%) should be interpreted in the context of the absolute cell counts (cells/L). Complete Blood Count + Differential 0.13 {x10E9/L} above high threshold See Below OE-HKBZN-DRZ 1200 [place] Work Phone: Comment on above: Reference Range: 0.0 0 - 0.10 Cult, Urineon 12-25-2019 Bacteria identified Cx Nom (U) PATIENT: KIARA ASHLEY LOCATION: [facility] [place] BILL#: [id number] : 89 AGE: SEX: F ORDERED BY: PARAS GUEVARA: URINE COLLECTED: 12/25/19 09:41ANTIBIOTICS AT [facility].: RECEIVED : 12/25/19 17:06SITE: Clean Catch/Voided R E S U L T S URINE CULTURE,BACTERIAL FINAL 12/26/19 10:21 NO SIGNIFICANT GROWTH. FD-ZBUTV-FCP 1200 [place] Work Phone: Hematologyon 12-25-2019 ABO group Nom (Bld) A XC-KPPVE-URP 1200 [place] Work Phone: Blood group antibody screen Ql Negative QC-EOUJT-JFM 1200 [place] Work Phone: Rh immune globulin screen (Bld) [Interp] Positive PS-FCLVX-UKP 1200 [place] Work Phone: Hepatitis B Surface Antigeno n 12-25-2019 Hepatitis B Surface Antigen NONREACTIVE See Below CP-BBNZF-YJC 1200 [place] Work Phone: Comment on above: [...] Hepatitis C Antibody Test NON-REACTIVE See Below SI-ERDGI-SRT 1200 [place] Work Phone: Comment on above: SOURCE: Reference Ra nge: NONREACTIVE Patients receiving more than 5 mg/day of biotin may have interference in test results. A sample should be taken no sooner than eight hours after previous dose. Contact the testing laboratory for additional information. Metabolic Panelon 12-25-2019 ALP [Catalytic activity/Vol] 67 U/L 33 - 110 WL-SIRWB-GTS 1200 [place] Work Phone: Anion gap [Moles/Vol] 15 mmol/L 10 - 20 WA-KVIVU-JQM 1200 [place] Work Phone: Bilirubin [Mass/Vol] 0.3 mg/dL 0.0 - 1.2 OY-IWCUV-IRQ 1200 [place] Work Phone: Calcium [Mass/Vol] 9.6 mg/dL 8.6 - 10.6 AT-OWQHZ-BQS 1200 [place] Work Phone: Chloride [Moles/Vol] 104 mmol/L 98 - 107 LR-CDWRN-TPB 1200 [place] Work Phone: CO2 [Moles/Vol] 21 mmol/L 21 - 32 MG-OBGYN- MAC 1200 [place] Work Phone: Creatinine [Mass/Vol] 0.69 mg/dL See Below ER-SEJMG-OCK 1200 [place] Work Phone: Comment on above: Reference Range: 0.5 0 - 1.05 Glucose [Mass/Vol] 83 mg/dL 74 - 99 TT-XQJHW-JRQ 1200 [place] Work Phone: Comment on above: SOURCE: Potassium [Moles/Vol] 4.1 mmol/L 3.5 - 5.3 QN-CHTHF-STF 1200 [place] Work Phone: Protein [Mass/Vol] 6.2 g/dL below low threshold 6.4 - 8.2 CT-VGPYP-JXZ 1200 [place] Work Phone: Sodium [Moles/Vol] 136 mmol/L 136 - 145 OQ-YMWMG-HOP 1200 [place] Work Phone: Urea nitrogen [Mass/Vol] 9 mg/dL 6 - 23 XD-WCYCP-PDW 1200 [place] Work Phone: Otheron 12-25-2019 Albumin BCP dye [Mass/Vol] 3.9 g/dL 3.4 - 5.0 EQ-VNILF-GDF 1200 [place] Work Phone: ALT With P-5'-P [Catalytic activity/Vol] 8 U/L 7 - 45 KR-EYQEY-RPN 1200 [place] Work Phone: Comment on above: Patients treated wit h Sulfasalazine may generate falsely decreased results for ALT. AST With P-5'-P [Catalytic activity/Vol] 11 U/L 9 - 39 MH-AEJLW-MNS 1200 [place] Work Phone: NONE BQ-NYQEO-FEU 1200 [place] Work Phone: >60 >60 DD-NYADY-LTV 1200 [place] Work Phone: Comment on above: CALCULATIONS OF MARÍA MATED GFR ARE PERFORMED USING THE MDRD STUDY EQUATION FOR THE IDMS-TRACEABLE CREATININE METHODS. CLIN CHEM 2007;53:766-72 SYPHILIS SCREENING WITH REFL EXon 12-25-2019 T. pallidum IgG+IgM IA Ql (S) NONREACTIVE See Below HU-DKTKV-LCZ 1200 [place] Work Phone: Comment on above: SOURCE: Reference Ra nge: NONREACTIVENo significant level of Treponema pallidum antibody detected. Repeat testing in 2 to 4 weeks may be considered if early infection or incubating syphilis infection is suspected. CBC AND DIFFERENTIALon 11-21 % AUTOMATED IMMATURE GRAN 0.9 % Normal 0.0 - 0.9 [facility] Comment on above: Result Comment: Perc ent differential counts (%) should be interpreted in the context of the absolute cell counts (cells/L). Performed By: #### C BCDF #### [address] [place] [address] Basophils (Bld) [#/Vol] 0.16 10*3/uL High 0.00 - 0.10 [facility] Comment on above: Performed By: #### C BCDF #### [address] [place] [address] Basophils/100 WBC (Bld) 1.2 % Normal 0.0 - 2.0 [facility] Comment on above: Performed By: #### C BCDF #### [address] [place] [address] Eosinophils (Bld) [#/Vol] 0.80 10*3/uL High 0.00 - 0.70 [facility] Comment on above: Performed By: #### C BCDF #### [address] [place] [address] Eosinophils/100 WBC (Bld) 5.8 % Normal 0.0 - 6.0 [facility] Comment on above: Performed By: #### C BCDF #### [address] [place] [address] Erythrocyte distribution width (RBC) [Ratio] 13.6 % Normal 11.5 - 14.5 [facility] Comment on above: Performed By: #### C BCDF #### [address] [place] [address] Hematocrit (Bld) [Volume fraction] 39.4 % Normal 36.0 - 46.0 [facility] Comment on above: Performed By: #### C BCDF #### [address] [place] [address] Hemoglobin (Bld) [Mass/Vol] 13.0 g/dL Normal 12.0 - 16.0 [facility] Comment on above: Performed By: #### C BCDF #### [address] [place] [address] Lymphocytes (Bld) [#/Vol] 2.24 10*3/uL Normal 1.20 - 4.80 [facility] Comment on above: Performed By: #### C BCDF #### [address] [place] [address] Lymphocytes/100 WBC (Bld) 16.3 % Normal 13.0 - 44.0 [facility] Comment on above: Performed By: #### C BCDF #### [address] [place] [address] MCHC (RBC) [Mass/Vol] 33.0 g/dL Normal 32.0 - 36.0 [facility] Comment on above: Performed By: #### C BCDF #### [address] [place] [address] MCV (RBC) [Entitic vol] 94 fL Normal 80 - 100 [facility] Comment on above: Performed By: #### C BCDF #### [address] [place] [address] Monocytes (Bld) [#/Vol] 0.83 10*3/uL Normal 0.10 - 1.00 [facility] Comment on above: Performed By: #### C BCDF #### [address] [place] [address] Monocytes/100 WBC (Bld) 6.0 % Normal 2.0 - 10.0 [facility] Comment on above: Performed By: #### C BCDF #### [address] [place] [address] Neutrophils (Bld) [#/Vol] 9.60 10*3/uL High 1.20 - 7.70 [facility] Comment on above: Performed By: #### C BCDF #### [address] [place] [address] Neutrophils/100 WBC (Bld) 69.8 % Normal 40.0 - 80.0 [facility] Comment on above: Performed By: #### C BCDF #### [address] [place] [address] Platelets (Bld) [#/Vol] 380 10*3/uL Normal 150 - 450 [facility] Comment on above: Performed By: #### C BCDF #### [address] [place] [address] RBC (Bld) [#/Vol] 4.21 x10E12/L Normal 4.00 - 5.20 [facility] Comment on above: Performed By: #### C BCDF #### [address] [place] [address] WBC (Bld) [#/Vol] 13.8 10*3/uL High 4.4 - 11.3 [facility] [place] Comment on above: Performed By: #### C BCDF #### [address] [place] [address] Complete Blood Count + Diffe rentialon 11-14-2019 Basophils (Bld) [#/Vol] 0.05 {x10E9/L} See Below MP-Reproductiv e [facility] Work Phone: Comment on above: Reference Range: 0.0 0 - 0.10 Basophils/100 WBC (Bld) 0.4 % 0.0 - 2.0 MP-Reproductiv e [facility] Work Phone: Eosinophils (Bld) [#/Vol] 0.89 {x10E9/L} above high threshold See Below MP-Reproductiv e [facility] [place] Work Phone: Comment on above: Reference Range: 0.0 0 - 0.70 Eosinophils/100 WBC (Bld) 7.3 % 0.0 - 6.0 MP-Reproductiv e [facility]- [place] Work Phone: Erythrocyte distribution width (RBC) [Ratio] 13.9 % See Below MP-Reproductiv e [facility]- [place] Work Phone: Comment on above: Reference Range: 11. 5 - 14.5 Hematocrit (Bld) [Volume fraction] 39.4 % See Below MP-Reproductiv e [facility] [place] Work Phone: Comment on above: Reference Range: 36. 0 - 46.0 Hemoglobin (Bld) [Mass/Vol] 12.8 g/dL See Below MP-Reproductiv e [facility]- [place] Work Phone: Comment on above: Reference Range: 12. 0 - 16.0 Lymphocytes (Bld) [#/Vol] 2.13 {x10E9/L} See Below MP-Reproductiv e [facility]- [place] Work Phone: Comment on above: Reference Range: 1.2 0 - 4.80 Lymphocytes/100 WBC (Bld) 17.5 % See Below MP-Reproductiv e [facility]- [place] Work Phone: Comment on above: Reference Range: 13. 0 - 44.0 MCHC (RBC) [Mass/Vol] 32.5 g/dL See Below MP-Reproductiv e [facility]- [place] Work Phone: Comment on above: Reference Range: 32. 0 - 36.0 MCV (RBC) [Entitic vol] 95 fL 80 - 100 MP-Reproductiv e [facility]- [place] Work Phone: Monocytes (Bld) [#/Vol] 0.60 {x10E9/L} See Below MP-Reproductiv e [facility]ocr[facility]- [place] Work Phone: Comment on above: Reference Range: 0.1 0 - 1.00 Monocytes/100 WBC (Bld) 4.9 % 2.0 - 10.0 MP-Reproductiv e [facility]- [place] Work Phone: Neutrophils/100 WBC (Bld) 69.4 % See Below MP-Reproductiv e [facility]- [place] Work Phone: Comment on above: Reference Range: 40. 0 - 80.0 Platelets (Bld) [#/Vol] 423 {x10E9/L} 150 - 450 MP-Reproductiv e [facility]- [place] Work Phone: RBC (Bld) [#/Vol] 4.15 {x10E12/L} See Below MP -Reproductiv e Endocrin[facility]- [place] Work Phone: Comment on above: Reference Range: 4.0 0 - 5.20 WBC (Bld) [#/Vol] 12.2 {x10E9/L} above high threshold 4.4 - 11.3 MP-Reproductiv e [facility]- [place] Work Phone: WBC (Bld) [#/Vol] 0.0 {/100_WBC} 0.0-0.0 MP- Reproductiv e Endocrin[facility]- [place] Work Phone: Complete Blood Count + Differential 0.5 % 0.0 - 0.9 MP-Reproductiv e Endocrin[facility]- [place] Work Phone: Comment on above: Percent differential counts (%) should be interpreted in the context of the absolute cell counts (cells/L). Complete Blood Count + Differential 8.42 {x10E9/L} above high threshold See Below MP-Reproductiv e [facility]ocr[facility]- [place] Work Phone: Comment on above: Reference Range: 1.2 0 - 7.70 Metabolic Panelon 11-14-2019 ALP [Catalytic activity/Vol] 82 U/L 33 - 110 MP-Reproductiv e [facility]- [place] Work Phone: Anion gap [Moles/Vol] 19 mmol/L 10 - 20 MP-Reproductiv e [facility]- [place] Work Phone: Bilirubin [Mass/Vol] 0.4 mg/dL 0.0 - 1.2 MP-Reproductiv e [facility]- [place] Work Phone: Calcium [Mass/Vol] 9.5 mg/dL 8.6 - 10.6 MP-Reproductiv e [facility]- [place] Work Phone: Chloride [Moles/Vol] 100 mmol/L 98 - 107 MP-Reproductiv e Endocrin[facility]- [place] Work Phone: CO2 [Moles/Vol] 20 mmol/L below low threshold 21 - 32 MP-Reproductiv e [facility]- [place] Work Phone: Creatinine [Mass/Vol] 0.80 mg/dL See Below MP-Reproductiv e [facility]ocrin[facility]- [place] Work Phone: Comment on above: Reference Range: 0.5 0 - 1.05 Glucose [Mass/Vol] 86 mg/dL 74 - 99 MP-Reproductiv e [facility]ocrin[facility]- [place] Work Phone: Potassium [Moles/Vol] 4.3 mmol/L 3.5 - 5.3 MP-Reproductiv e [facility]ocr[facility]- [place] Work Phone: Protein [Mass/Vol] 5.8 g/dL below low threshold 6.4 - 8.2 MP-Reproductiv e Endocrinology- [place] Work Phone: Sodium [Moles/Vol] 135 mmol/L below low threshold 136 - 145 MP-Reproductiv e Endocrinology- [place] Work Phone: Urea nitrogen [Mass/Vol] 10 mg/dL 6 - 23 MP-Reproductiv e Endocrinology- [place] Work Phone: Otheron 11-14-2019 Albumin BCP dye [Mass/Vol] 3.5 g/dL 3.4 - 5.0 MP-Reproductiv e [facility] [place] Work Phone: ALT With P-5'-P [Catalytic activity/Vol] 17 U/L 7 - 45 MP-Reproductiv e [facility] Work Phone: Comment on above: Patients treated wit h Sulfasalazine may generate falsely decreased results for ALT. AST With P-5'-P [Catalytic activity/Vol] 22 U/L 9 - 39 MP-Reproductiv e [facility]- [place] Work Phone: >60 >60 MP-Reproductiv e [facility] Work Phone: Comment on above: CALCULATIONS OF MARÍA MATED GFR ARE PERFORMED USING THE MDRD STUDY EQUATION FOR THE IDMS-TRACEABLE CREATININE METHODS. CLIN CHEM 2007;53:766-72 CBCon 11-09-2019 Erythrocyte distribution width (RBC) [Ratio] 13.7 % See Below [id number] n 310 [facility] Work Phone: Comment on above: Performed By: #### L H #### [facility] [facility] [address] [place] [address] Reference Range: 11. 5 - 14.5 Hematocrit (Bld) [Volume fraction] 41.9 % See Below SE-VGNXG-Qoagq n 310 IVF Work Phone: Comment on above: Performed By: #### L H #### [facility] [address] [place] [address] Reference Range: 36. 0 - 46.0 Hemoglobin (Bld) [Mass/Vol] 14.0 g/dL See Below II-JBODS-Phuno n 310 IVF Work Phone: Comment on above: Performed By: #### L H #### [facility] [address] [place] [address] Reference Range: 12. 0 - 16.0 MCHC (RBC) [Mass/Vol] 33.4 g/dL See Below CY-VBYAY-Ojctf n 310 IVF Work Phone: Comment on above: Performed By: #### L H #### [facility] [address] [place] [address] Reference Range: 32. 0 - 36.0 MCV (RBC) [Entitic vol] 94 fL 80 - 100 KG-QQWMJ-Adzyz n 310 IVF Work Phone: Comment on above: Performed By: #### L H #### [facility] [address] [place] [id number] Platelets (Bld) [#/Vol] 411 10*3/uL Normal 150 - 450 [facility] Comment on above: Performed By: #### L H #### [facility] [address] [place] [id number] RBC (Bld) [#/Vol] 4.44 x10E12/L Normal 4.00 - 5.20 [facility] Comment on above: Performed By: #### L H #### [facility] [address] [place] [id number] WBC (Bld) [#/Vol] 12.4 10*3/uL High 4.4 - 11.3 [facility] Comment on above: Performed By: #### L H #### [facility] [address] [place] [id number] COMPREHENSIVE PANELon 2018 Albumin [Mass/Vol] 3.8 g/dL Normal 3.4 - 5.0 [facility] Comment on above: Performed By: #### L H #### [facility] [address] [place] [id number] ALP [Catalytic activity/Vol] 51 U/L 33 - 110 FJ-YSADO-Niaoh n 310 IVF Work Phone: Comment on above: Performed By: #### L H #### [facility] [address] [place] [id number] ALT [Catalytic activity/Vol] 12 U/L Normal 7 - 45 [facility] Comment on above: Result Comment: Mleida ents treated with Sulfasalazine may generate falsely decreased results for ALT. Performed By: #### L H #### [facility] [address] [place] [id number] Anion gap [Moles/Vol] 13 mmol/L 10 - 20 JG-VYJIP-Zpvxr n 310 IVF Work Phone: Comment on above: Performed By: #### L H #### [facility] [address] [place] [id number] AST [Catalytic activity/Vol] 12 U/L Normal 9 - 39 [facility] Comment on above: Performed By: #### L H #### [facility] [address] [place] [id number] Bilirubin [Mass/Vol] 0.4 mg/dL 0.0 - 1.2 CN-KPWKW-Hycyj n 310 IVF Work Phone: Comment on above: Performed By: #### L H #### [facility] [address] [place] [id number] Calcium [Mass/Vol] 9.3 mg/dL 8.6 - 10.3 TE-NWWID-Nrrgp n 310 IVF Work Phone: Comment on above: Performed By: #### L H #### [facility] [address] [place] [id number] Chloride [Moles/Vol] 102 mmol/L 98 - 107 JA-JJWQG-Mjucn n 310 IVF Work Phone: Comment on above: Performed By: #### L H #### [facility] [address] [place] [address] Creatinine [Mass/Vol] 0.89 mg/dL See Below VR-DPAOC-Kmejb n 310 IVF Work Phone: Comment on above: Performed By: #### L H #### [facility] [address] [place] [address] Reference Range: 0.5 0 - 1.05 GFR- AM. >60 Normal >60 [facility] Comment on above: Result Comment: CALC ULATIONS OF ESTIMATED GFR ARE PERFORMED USING THE MDRD STUDY EQUATION FOR THE IDMS-TRACEABLE CREATININE METHODS. CLIN CHEM 2007;53:766-72 Performed By: #### L H #### [facility] [address] [place] [id number] GFR-NON AM. >60 Normal >60 [facility] Comment on above: Performed By: #### L H #### [facility] [address] [place] [id number] Glucose [Mass/Vol] 74 mg/dL 74 - 99 TN-JHTOJ-Rlkpu n 310 IVF Work Phone: Comment on above: Performed By: #### L H #### [facility] [address] [place] [address] HCO3 (Bld) [Moles/Vol] 25 mmol/L Normal 21 - 32 [facility] Comment on above: Performed By: #### L H #### [facility] [address] [place] [id number] Potassium [Moles/Vol] 4.1 mmol/L 3.5 - 5.3 BM-OMMAG-Kcbuh n 310 IVF Work Phone: Comment on above: Performed By: #### L H #### [facility] [address] [place] [address] Protein [Mass/Vol] 6.0 g/dL below low threshold 6.4 - 8.2 DG-ETLYX-Lodlp n 310 IVF Work Phone: Comment on above: Performed By: #### L H #### [facility] [address] [place] [address] Sodium [Moles/Vol] 136 mmol/L 136 - 145 MC-BMBGB-Sdwxq n 310 IVF Work Phone: Comment on above: Performed By: #### L H #### [facility] [address] [place] [address] Urea nitrogen [Mass/Vol] 11 mg/dL 6 - 23 PA-DKTEE-Kbkpc n 310 IVF Work Phone: Comment on above: Performed By: #### L H #### [facility] [address] [place] [address] HCG, Beta Quantitativeon HCG.beta subunit Qn 7102 {mIU/mL} Abnormal VD-ROBEA-Wuhgh n 310 IVF Work Phone: Comment on [...] HCG measurement is performed using the [employer] Access Immunoassay which detects intact HCG and free beta HCG subunit. This test is not indicated for use as a tumor marker. HCG testing is performed using a different test methodology at [facility] other [facility]. Direct result comparison should only be made within the same method. REF VALUESNON FEMALE <5MALES <5 HCG,BETA-QUANTITATIVEon 12-2 HCG,BETA-QUANTITA TIVE 7102 mIU/mL [facility] Comment on above: Result Comment: Low- level [...] HCG measurement is performed using the [employer]anc[employer] Access Immunoassay which detects intact HCG and free beta HCG subunit. This test is not indicated for use as a tumor marker. HCG testing is performed using a different test methodology at [facility] than other [facility]. Direct result comparison should only be made within the same method. REF VALUES NON FEMALE <5 MALES <5 Performed By: #### L H #### [facility] [address] [place] [address] Hematologyon 11-09-2019 Platelets (Bld) [#/Vol] 411 {x10E9/L} 150 - 450 YO-LUZIR-Fpsfj n 310 IVF Work Phone: RBC (Bld) [#/Vol] 4.44 {x10E12/L} See Below MG -OBGYN-Risma n 310 IVF Work Phone: Comment on above: Reference Range: 4.0 0 - 5.20 WBC (Bld) [#/Vol] 12.4 {x10E9/L} above high threshold 4.4 - 11.3 QX-JMZOJ-Uuhju n 310 IVF Work Phone: Metabolic Panelon 11-09-2019 CO2 [Moles/Vol] 25 mmol/L 21 - 32 MG-OBGYN- Risma n 310 IVF Work Phone: Otheron 11-09-2019 Albumin BCP dye [Mass/Vol] 3.8 g/dL 3.4 - 5.0 JQ-VKCKX-Yomxz n 310 IVF Work Phone: ALT With P-5'-P [Catalytic activity/Vol] 12 U/L 7 - 45 GP-JNMQG-Zofky n 310 IVF Work Phone: Comment on above: Patients treated wit h Sulfasalazine may generate falsely decreased results for ALT. AST With P-5'-P [Catalytic activity/Vol] 12 U/L 9 - 39 XA-YLEPI-Esvhk n 310 IVF Work Phone: >60 >60 HJ-UYCOT-Xfzua n 310 IVF Work Phone: Comment on [...] HCG measurement is performed using the [employer] Access Immunoassay which detects intact HCG and free beta HCG subunit. This test is not indicated for use as a tumor marker. HCG testing is performed using a different test methodology at [facility] than other [facility]. Direct result comparison should only be made within the same method. REF VALUESNON FEMALE <5MALES <5 HCG,BETA-QUANTITATIVEon 10-15 HCG,BETA-QUANTITA TIVE 240 mIU/mL [facility] Comment on above: Result Comment: Low- level [...] HCG measurement is performed using the [employer] Access Immunoassay which detects intact HCG and free beta HCG subunit. This test is not indicated for use as a tumor marker. HCG testing is performed using a different test methodology at [facility] than other [facility]. Direct result comparison should only be made within the same method. REF VALUES NON FEMALE <5 MALES <5 Performed By: #### E STRA #### [facility] [address] [place] [address] ESTRADIOLon 10-14-2019 ESTRADIOL 1871 pg/mL Normal [facility] Comment on above: Result Comment: Estr adiol measurement is performed using the [employer] Access Immunoassay. Estradiol testing is performed using a different test methodology at [facility] than other [facility] Direct result comparison should only be made within the same method. REF VALUES FOLLICULAR PHASE 20-144 MID CYCLE 64-357 LUTEAL PHASE 56-214 POSTMENOPAUSE < 32 PREPUBERTY < 20 MALE 10-18Y < 20 ADULT MALE < 40 Performed By: #### E STRA #### [facility] [address] [place] [address] Estradiol, Serumon 9 E2 [Mass/Vol] 1871 pg/mL MG-OBGYN-Ri sma n 310 IVF Work Phone: Comment on above: Estradiol measuremen t is performed using the [employer] Access Immunoassay. Estradiol testing is performed using a different test methodology at [facility] than other [facility]. Direct result comparison should only be made within the same method.REF VALUESFOLLICULAR PHASE 20-144MID CYCLE 64-357LUTEAL PHASE 56-214POSTMENOPAUSE < 32PREPUBERTY < 20MALE 10-18Y < 20ADULT MALE < 40 PROGESTERONEon 10-14-2019 PROGESTERONE 1.0 ng/mL Normal [facility] Comment on above: Result Comment: Prog esterone is performed using the [employer] Access Immunoassay. Progesterone testing is performed using a different test methodology at [facility] than other [facility]. Direct result comparison should only be made within the same method. REF VALUES MALE <0.2-0.8 FOLLICULAR PHASE <0.2-1.5 LUTEAL PHASE 7.4-15.4 POSTMENOPAUSAL <0.2-0.2 1ST TRIMESTER 12.0-84.0 2ND TRIMESTER 10.2-58.8 3RD TRIMESTER 46.5-160 Performed By: #### E STRA #### [facility] [address] [place] [address] Progesterone, Serumon 2018 Progesterone [Mass/Vol] 1.0 ng/mL TJ-MQAIH-Qweoj n 310 IVF Work Phone: Comment on above: Progesterone is perf ormed using the [employer] Access Immunoassay. Progesterone testing is performed using a different test methodology at [facility] than other [facility]. Direct result comparison should only be made within the same method.REF VALUESMALE <0.2-0.8 FOLLICULAR PHASE <0.2-1.5 LUTEAL PHASE 7.4-15.4 POSTMENOPAUSAL <0.2-0.2 1ST TRIMESTER 12.0-84.0 2ND TRIMESTER 10.2-58.8 3RD TRIMESTER 46.5-160 ESTRADIOLon 10-11-2019 ESTRADIOL 284 pg/mL Normal [facility] Comment on above: Result Comment: Estr adiol measurement is performed using the [employer] Access Immunoassay. Estradiol testing is performed using a different test methodology at [facility] than other [facility]. Direct result comparison should only be made within the same method. REF VALUES FOLLICULAR PHASE 20-144 MID CYCLE 64-357 LUTEAL PHASE 56-214 POSTMENOPAUSE < 32 PREPUBERTY < 20 MALE 10-18Y < 20 ADULT MALE < 40 Performed By: #### E STRA #### [facility] [address] [place] [address] Estradiol, Serumon 9 E2 [Mass/Vol] 284 pg/mL MG-OBGYN-Ri sma n 310 IVF Work Phone: Comment on above: Estradiol measuremen t is performed using the [employer] Access Immunoassay. Estradiol testing is performed using a different test methodology at [facility] than other [facility]. Direct result comparison should only be made within the same method.REF VALUESFOLLICULAR PHASE 20-144MID CYCLE 64-357LUTEAL PHASE 56-214POSTMENOPAUSE < 32PREPUBERTY < 20MALE 10-18Y < 20ADULT MALE < 40 ESTRADIOLon 10-05-2019 ESTRADIOL 129 pg/mL Normal [facility] Comment on above: Result Comment: Estr adiol measurement is performed using the [employer] Access Immunoassay. Estradiol testing is performed using a different test methodology at [facility] than other [facility]. Direct result comparison should only be made within the same method. REF VALUES FOLLICULAR PHASE 20-144 MID CYCLE 64-357 LUTEAL PHASE 56-214 POSTMENOPAUSE < 32 PREPUBERTY < 20 MALE 10-18Y < 20 ADULT MALE < 40 Performed By: #### E STRA #### [facility] [address] [place] [address] Estradiol, Serumon 9 E2 [Mass/Vol] 129 pg/mL MG-OBGYN-Ri sma n 310 IVF Work Phone: Comment on above: Estradiol measuremen t is performed using the [employer] Access Immunoassay. Estradiol testing is performed using a different test methodology at [facility] than other [facility]. Direct result comparison should only be made within the same method.REF VALUESFOLLICULAR PHASE 20-144MID CYCLE 64-357LUTEAL PHASE 56-214POSTMENOPAUSE < 32PREPUBERTY < 20MALE 10-18Y < 20ADULT MALE < 40 PROGESTERONEon 10-05-2019 PROGESTERONE 0.2 ng/mL Normal [facility] Comment on above: Result Comment: Prog esterone is performed using the [employer] Access Immunoassay. Progesterone testing is performed using a different test methodology at [facility] than other [facility]. Direct result comparison should only be made within the same method. REF VALUES MALE <0.2-0.8 FOLLICULAR PHASE <0.2-1.5 LUTEAL PHASE 7.4-15.4 POSTMENOPAUSAL <0.2-0.2 1ST TRIMESTER 12.0-84.0 2ND TRIMESTER 10.2-58.8 3RD TRIMESTER 46.5-160 Performed By: #### E BARBARA #### [facility] [address] [place] [address] Progesterone, Serumon 2018 Progesterone [Mass/Vol] 0.2 ng/mL GR-LHOFH-Ogwyu n 310 IVF Work Phone: Comment on above: Progesterone is perf ormed using the [employer] Access Immunoassay. Progesterone testing is performed using a different test methodology at [facility] than other [facility] Direct result comparison should only be made within the same method.REF VALUESMALE <0.2-0.8 FOLLICULAR PHASE <0.2-1.5 LUTEAL PHASE 7.4-15.4 POSTMENOPAUSAL <0.2-0.2 1ST TRIMESTER 12.0-84.0 2ND TRIMESTER 10.2-58.8 3RD TRIMESTER 46.5-160 ESTRADIOLon 10-02-2019 ESTRADIOL 357 pg/mL Normal [facility] Comment on above: Result Comment: Estr adiol measurement is performed using the [employer] Access Immunoassay. Estradiol testing is performed using a different test methodology at [facility] than other [facility]. Direct result comparison should only be made within the same method. REF VALUES FOLLICULAR PHASE 20-144 MID CYCLE 64-357 LUTEAL PHASE 56-214 POSTMENOPAUSE < 32 PREPUBERTY < 20 MALE 10-18Y < 20 ADULT MALE < 40 Performed By: #### E STRA #### [facility] [address] [place] [address] Estradiol, Serumon 9 E2 [Mass/Vol] 357 pg/mL MG-OBGYN-Cr ock er 206A IVF Work Phone: Comment on above: Estradiol measuremen t is performed using the [employer] Access Immunoassay. Estradiol testing is performed using a different test methodology at [facility] than other [facility]. Direct result comparison should only be made within the same method.REF VALUESFOLLICULAR PHASE 20-144MID CYCLE 64-357LUTEAL PHASE 56-214POSTMENOPAUSE < 32PREPUBERTY < 20MALE 10-18Y < 20ADULT MALE < 40 LUTEINIZING HORMONEon 2018 LUTEINIZING HORMONE 14.7 IU/L Normal [facility] Comment on above: Result Comment: Lute inizing Hormone [LH] is performed using the [employer] Access Immunoassay. LH testing is performed using a different test methodology at [facility] than other [facility]. Direct result comparison should only be made within the same method. REF VALUES FOLLICULAR PHASE 1.5-10.0 MID-CYCLE 13.0-72.0 LUTEAL PHASE 0.5-13.0 MENOPAUSE 15.0-65.0 PREPUBERTY 0- 3.0 CHILDREN 0- 6.0 ADULT MALE 1.0- 9.0 Performed By: #### E STRA #### [facility] [address] [place] [address] Luteinizing Hormone, Serumon 10-02-2019 Lutropin Qn 14.7 {IU/L} FG-FGGPB-Ovc ck er 206A IVF Work Phone: Comment on above: Luteinizing Hormone [LH] is performed using the [employer] Access Immunoassay. LH testing is performed using a different test methodology at [facility] than other [facility]. Direct result comparison should only be made within the same method.REF VALUESFOLLICULAR PHASE 1.5-10.0MID-CYCLE 13.0-72.0LUTEAL PHASE 0.5-13.0MENOPAUSE 15.0-65.0PREPUBERTY 0- 3.0CHILDREN 0- 6.0ADULT MALE 1.0- 9.0 PROGESTERONEon 10-02-2019 PROGESTERONE 0.1 ng/mL Normal [facility] Comment on above: Result Comment: Prog esterone is performed using the [employer] Access Immunoassay. Progesterone testing is performed using a different test methodology at [facility] than other [facility]. Direct result comparison should only be made within the same method. REF VALUES MALE <0.2-0.8 FOLLICULAR PHASE <0.2-1.5 LUTEAL PHASE 7.4-15.4 POSTMENOPAUSAL <0.2-0.2 1ST TRIMESTER 12.0-84.0 2ND TRIMESTER 10.2-58.8 3RD TRIMESTER 46.5-160 Performed By: #### E STRA #### [facility] [address] [place] [address] Progesterone, Serumon 2018 Progesterone [Mass/Vol] 0.1 ng/mL JK-JYLAY-Jixjq 206A IVF Work Phone: Comment on above: Progesterone is perf ormed using the [employer] Access Immunoassay. Progesterone testing is performed using a different test methodology at [facility] than other [facility]. Direct result comparison should only be made within the same method.REF VALUESMALE <0.2-0.8 FOLLICULAR PHASE <0.2-1.5 LUTEAL PHASE 7.4-15.4 POSTMENOPAUSAL <0.2-0.2 1ST TRIMESTER 12.0-84.0 2ND TRIMESTER 10.2-58.8 3RD TRIMESTER 46.5-160 HCG,BETA-QUANTITATIVEon - HCG,BETA-QUANTITA TIVE 10 mIU/mL [facility] Comment on above: Result Comment: Low- level [...] using a different test methodology at [facility] than other [facility]. Direct result comparison should only be made within the same method. REF VALUES NON FEMALE <5 MALES <5 Performed By: #### L H #### [facility] [address] [place] [address] LUTEINIZING HORMONEon 2018 LUTEINIZING HORMONE 57.0 IU/L Normal [facility] Comment on above: Result Comment: Lute inizing Hormone [LH] is performed using the [employer] Access Immunoassay. LH testing is performed using a different test methodology at [facility] than other [facility]. Direct result comparison should only be made within the same method. REF VALUES FOLLICULAR PHASE 1.5-10.0 MID-CYCLE 13.0-72.0 LUTEAL PHASE 0.5-13.0 MENOPAUSE 15.0-65.0 PREPUBERTY 0- 3.0 CHILDREN 0- 6.0 ADULT MALE 1.0- 9.0 Performed By: #### E STRA #### [facility] [address] [place] [address] PROGESTERONEon 08-13-2019 PROGESTERONE 6.7 ng/mL Normal [facility] Comment on above: Result Comment: Prog esterone is performed using the [employer] Access Immunoassay. Progesterone testing is performed using a different test methodology at [facility] other [facility]. Direct result comparison should only be made within the same method. REF VALUES MALE <0.2-0.8 FOLLICULAR PHASE <0.2-1.5 LUTEAL PHASE 7.4-15.4 POSTMENOPAUSAL <0.2-0.2 1ST TRIMESTER 12.0-84.0 2ND TRIMESTER 10.2-58.8 3RD TRIMESTER 46.5-160 Performed By: #### L H #### [facility] [address] [place] [address] ESTRADIOLon 08-12-2019 ESTRADIOL 1380 pg/mL Normal [facility] Comment on above: Result Comment: Estr adiol measurement is performed using the [employer] Access Immunoassay. Estradiol testing is performed using a different test methodology at [facility] than [facility]. Direct result comparison should only be made within the same method. REF VALUES FOLLICULAR PHASE 20-144 MID CYCLE 64-357 LUTEAL PHASE 56-214 POSTMENOPAUSE < 32 PREPUBERTY < 20 MALE 10-18Y < 20 ADULT MALE < 40 Performed By: #### L H #### [facility] [address] [place] [address] PROGESTERONEon 08-12-2019 PROGESTERONE 1.7 ng/mL Normal [facility] Comment on above: Result Comment: Prog esterone is performed using the [employer] Access Immunoassay. Progesterone testing is performed using a different test methodology at [facility] than [facility]. Direct result comparison should only be made within the same method. REF VALUES MALE <0.2-0.8 FOLLICULAR PHASE <0.2-1.5 LUTEAL PHASE 7.4-15.4 POSTMENOPAUSAL <0.2-0.2 1ST TRIMESTER 12.0-84.0 2ND TRIMESTER 10.2-58.8 3RD TRIMESTER 46.5-160 Performed By: #### L H #### [facility] [address] [place] [address] ESTRADIOLon 08-11-2019 ESTRADIOL 874 pg/mL Normal [facility] Comment on above: Result Comment: Estr adiol measurement is performed using the [employer] Access Immunoassay. Estradiol testing is performed using a different test methodology at [facility] than [facility]. Direct result comparison should only be made within the same method. REF VALUES FOLLICULAR PHASE 20-144 MID CYCLE 64-357 LUTEAL PHASE 56-214 POSTMENOPAUSE < 32 PREPUBERTY < 20 MALE 10-18Y < 20 ADULT MALE < 40 Performed By: #### L H #### [facility] [address] [place] [address] PROGESTERONEon 08-11-2019 PROGESTERONE 1.2 ng/mL Normal [facility] Comment on above: Result Comment: Prog esterone is performed using the [employer] Access Immunoassay. Progesterone testing is performed using a different test methodology at [facility] than [facility]. Direct result comparison should only be made within the same method. REF VALUES MALE <0.2-0.8 FOLLICULAR PHASE <0.2-1.5 LUTEAL PHASE 7.4-15.4 POSTMENOPAUSAL <0.2-0.2 1ST TRIMESTER 12.0-84.0 2ND TRIMESTER 10.2-58.8 3RD TRIMESTER 46.5-160 Performed By: #### L H #### [facility] [address] [place] [address] ESTRADIOLon 08-09-2019 ESTRADIOL 385 pg/mL Normal [facility] Comment on above: Result Comment: Estr adiol measurement is performed using the [employer] Access Immunoassay. Estradiol testing is performed using a different test methodology at [facility] than [facility]. Direct result comparison should only be made within the same method. REF VALUES FOLLICULAR PHASE 20-144 MID CYCLE 64-357 LUTEAL PHASE 56-214 POSTMENOPAUSE < 32 PREPUBERTY < 20 MALE 10-18Y < 20 ADULT MALE < 40 Performed By: #### L H #### [facility] [address] [place] [address] ESTRADIOLon 08-07-2019 ESTRADIOL 80 pg/mL Normal [facility] Comment on above: Result Comment: Estr adiol measurement is performed using the [employer] Access Immunoassay. Estradiol testing is performed using a different test methodology at [facility] than [facility]. Direct result comparison should only be made within the same method. REF VALUES FOLLICULAR PHASE 20-144 MID CYCLE 64-357 LUTEAL PHASE 56-214 POSTMENOPAUSE < 32 PREPUBERTY < 20 MALE 10-18Y < 20 ADULT MALE < 40 Performed By: #### L H #### [facility] [address] [place] [address] ESTRADIOLon 08-04-2019 ESTRADIOL 58 pg/mL Normal [facility] [place] Comment on above: Result Comment: Estr adiol measurement is performed using the Jose Vancleve Access Immunoassay. Estradiol testing is performed using a different test methodology at [facility] than [facility] Direct result comparison should only be made within the same method. REF VALUES FOLLICULAR PHASE 20-144 MID CYCLE 64-357 LUTEAL PHASE 56-214 POSTMENOPAUSE < 32 PREPUBERTY < 20 MALE 10-18Y < 20 ADULT MALE < 40 Performed By: #### L H #### [facility] [address] [place] [address] ESTRADIOLon 07-07-2019 ESTRADIOL 110 pg/mL Normal [facility] [place] Comment on above: Result Comment: Estr adiol measurement is performed using the Jose NativeAD Access Immunoassay. Estradiol testing is performed using a different test methodology at [facility] than other [facility]. Direct result comparison should only be made within the same method. REF VALUES FOLLICULAR PHASE 20-144 MID CYCLE 64-357 LUTEAL PHASE 56-214 POSTMENOPAUSE < 32 PREPUBERTY < 20 MALE 10-18Y < 20 ADULT MALE < 40 Performed By: #### L H #### [facility] [address] [place] [address] NR MRI SELLA WO/Won 05-31-20 19 NR MRI SELLA WO/W Patient Name: KIARA ASHLEY STUDY: NR MRI SELLA WO/W; 05/31/2019 2:00 pm INDICATION: History of 7 mm microadenoma 2008. COMPARISON: None. ACCESSION NUMBER(S): [id number] ORDERING CLINICIAN: SHAHLA HEALY TECHNIQUE: High resolution [...] below the foramen magnum. Electronically signed by: IRENE BLAKE, PHYSICIAN Normal [facility] [place] ESTRADIOLon 05-05-2019 ESTRADIOL 217 pg/mL Normal [facility] [place] Comment on above: Result Comment: Estr adiol measurement is performed using the Jose Ryan Access Immunoassay. Estradiol testing is performed using a different test methodology at [facility] than other [facility]. Direct result comparison should only be made within the same method. REF VALUES FOLLICULAR PHASE 20-144 MID CYCLE 64-357 LUTEAL PHASE 56-214 POSTMENOPAUSE < 32 PREPUBERTY < 20 MALE 10-18Y < 20 ADULT MALE < 40 Performed By: #### E STRA #### [facility] [address] [place] [id number] LUTEINIZING HORMONEon 2018 LUTEINIZING HORMONE 4.4 IU/L Normal [facility] [place] Comment on above: Result Comment: Lute inizing Hormone [LH] is performed using the Jose Vancleve Access Immunoassay. LH testing is performed using a different test methodology at [facility] than other [facility]. Direct result comparison should only be made within the same method. REF VALUES FOLLICULAR PHASE 1.5-10.0 MID-CYCLE 13.0-72.0 LUTEAL PHASE 0.5-13.0 MENOPAUSE 15.0-65.0 PREPUBERTY 0- 3.0 CHILDREN 0- 6.0 ADULT MALE 1.0- 9.0 Performed By: #### L H #### [facility] [address] [place] [address] ESTRADIOLon 04-11-2019 ESTRADIOL 118 pg/mL Normal [facility] [place] Comment on above: Result Comment: Estr adiol measurement is performed using the Jose Vancleve Access Immunoassay. Estradiol testing is performed using a different test methodology at [facility] than [facility]. Direct result comparison should only be made within the same method. REF VALUES FOLLICULAR PHASE 20-144 MID CYCLE 64-357 LUTEAL PHASE 56-214 POSTMENOPAUSE < 32 PREPUBERTY < 20 MALE 10-18Y < 20 ADULT MALE < 40 Performed By: #### E STRA #### [facility] [address] [place] [address] LUTEINIZING HORMONEon 2018 LUTEINIZING HORMONE 7.7 IU/L Normal [facility] [place] Comment on above: Result Comment: Lute inizing Hormone [LH] is performed using the Jose NativeAD Access Immunoassay. LH testing is performed using a different test methodology at [facility]. Direct result comparison should only be made within the same method. REF VALUES FOLLICULAR PHASE 1.5-10.0 MID-CYCLE 13.0-72.0 LUTEAL PHASE 0.5-13.0 MENOPAUSE 15.0-65.0 PREPUBERTY 0- 3.0 CHILDREN 0- 6.0 ADULT MALE 1.0- 9.0 Performed By: #### L H #### [facility] [address] [place] [id number] PROGESTERONEon 04-11-2019 PROGESTERONE 0.1 ng/mL Normal [facility] [place] Comment on above: Result Comment: Prog esterone is performed using the Jose NativeAD Access Immunoassay. Progesterone testing is performed using a different test methodology at [facility]. Direct result comparison should only be made within the same method. REF VALUES MALE <0.2-0.8 FOLLICULAR PHASE <0.2-1.5 LUTEAL PHASE 7.4-15.4 POSTMENOPAUSAL <0.2-0.2 1ST TRIMESTER 12.0-84.0 2ND TRIMESTER 10.2-58.8 3RD TRIMESTER 46.5-160 Performed By: #### P SVEN #### [facility] [address] [place] [id number] ESTRADIOLon 03-17-2019 ESTRADIOL 120 pg/mL Normal [facility] [place] Comment on above: Result Comment: Estr adiol measurement is performed using the Jose NativeAD Access Immunoassay. Estradiol testing is performed using a different test methodology at [facility]. Direct result comparison should only be made within the same method. REF VALUES FOLLICULAR PHASE 20-144 MID CYCLE 64-357 LUTEAL PHASE 56-214 POSTMENOPAUSE < 32 PREPUBERTY < 20 MALE 10-18Y < 20 ADULT MALE < 40 Performed By: #### E STRA #### [facility] [address] [place] [id number] LUTEINIZING HORMONEon 2018 LUTEINIZING HORMONE 6.8 IU/L Normal [facility] [place] Comment on above: Result Comment: Lute inizing Hormone [LH] is performed using the Jose NativeAD Access Immunoassay. LH testing is performed using a different test methodology at [facility]. Direct result comparison should only be made within the same method. REF VALUES FOLLICULAR PHASE 1.5-10.0 MID-CYCLE 13.0-72.0 LUTEAL PHASE 0.5-13.0 MENOPAUSE 15.0-65.0 PREPUBERTY 0- 3.0 CHILDREN 0- 6.0 ADULT MALE 1.0- 9.0 Performed By: #### L H #### [facility] [address] [place] [address] ESTRADIOLon 02-20-2019 ESTRADIOL 521 pg/mL Normal [facility] [place] Comment on above: Result Comment: Estr adiol measurement is performed using the Jose Vancleve Access Immunoassay. Estradiol testing is performed using a different test methodology at [facility]. Direct result comparison should only be made within the same method. REF VALUES FOLLICULAR PHASE 20-144 MID CYCLE 64-357 LUTEAL PHASE 56-214 POSTMENOPAUSE < 32 PREPUBERTY < 20 MALE 10-18Y < 20 ADULT MALE < 40 Performed By: #### E STRA #### [facility] [address] [place] [address] LUTEINIZING HORMONEon 2018 LUTEINIZING HORMONE 3.5 IU/L Normal [facility] [place] Comment on above: Result Comment: Lute inizing Hormone [LH] is performed using the Jose Vancleve Access Immunoassay. LH testing is performed using a different test methodology at [facility] than [facility]. Direct result comparison should only be made within the same method. REF VALUES FOLLICULAR PHASE 1.5-10.0 MID-CYCLE 13.0-72.0 LUTEAL PHASE 0.5-13.0 MENOPAUSE 15.0-65.0 PREPUBERTY 0- 3.0 CHILDREN 0- 6.0 ADULT MALE 1.0- 9.0 Performed By: #### L H #### [facility] [address] [place] [address] Vital Signs Date Time Vital Sign Value Performing Clinician Modesto golden 02-27-2023 11:35-0400 Body mass index (BMI) [Ratio] 29.26 kg/m2 Evelyn Perez Work Phone: [facility] 02-27-2023 11:35-0400 Body temperature 98.8 [degF] Evelyn Calderonrn Work Phone: [facility] [employer] 02-27-2023 11:35-0400 Body weight 72.58 kg Evelyn Calderonrn Work Phone: [facility] [employer] 02-27-2023 11:35-0400 Diastolic blood pressure 66 mm[Hg] Evelyn Calderonrn Work Phone: [facility] [employer] 02-27-2023 11:35-0400 Heart rate 88 /min Evelyn Calderonrn Work Phone: [facility] [employer] 02-27-2023 11:35-0400 Respiratory rate 14 /min Evelyn Calderonrn Work Phone: [facility] [employer] 02-27-2023 11:35-0400 SaO2% (BldA) [Mass fraction] 100 % Evelyn Calderonrn Work Phone: [facility] [employer] 02-27-2023 11:35-0400 Systolic blood pressure 103 mm[Hg] Evelyn Calderonrn Work Phone: [facility] [employer] 06-19-2021 14:03-0400 Body height 157.48 cm Evelyn Matthewsn Work Phone: PC-EVTVJ-Vlcmoe 310 IVF Work Phone: 06-19-2021 14:03-0400 Body mass index (BMI) [Ratio] 29.26 kg/m2 Evelyn Calderonrn Work Phone: BG-IEKJS-Yxjahn 310 IVF Work Phone: 06-19-2021 14:03-0400 Body surface area Derived from formula 1.74 m2 Evelyn Calderonrn Work Phone: WP-GVPRE-Fzwzvz 310 IVF Work Phone: 06-19-2021 14:03-0400 Body weight 72.58 kg Evelyn M Ana Work Phone: XJ-AZUSW-Enpgmz 310 IVF Work Phone: 06-19-2021 14:03-0400 1 Nancy Husain Ana Work Phone: MV-NPNXB-Dupbbt 310 IVF Work Phone: Comment on above: GRAV PARA 06-19-2021 14:03-0400 0 1 Evelyn Husain Ana Work Phone: HB-YMQKJ-Awaxrl 310 IVF Work Phone: Comment on above: [employer] 06-07-2020 10:41-0400 BMI (Body Mass Index) 34.93 kg/m2 King Lappen ZG-WUJNL-YHN [address] [place] Work Phone: 06-07-2020 10:41-0400 Body weight 86.64 kg King Lappen HW-RNVKM-XYA [address] [place] Work Phone: 06-07-2020 10:41-0400 BP Diastolic 76 mm[Hg] King Lappen TS-YUMIO-AXR [address] [place] Work Phone: 06-07-2020 10:41-0400 BP Systolic 111 mm[Hg] King Lappen ZV-CLDYY-TJQ [address] [place] Work Phone: 06-07-2020 10:41-0400 BSA (Body Surface Area) 1.87 m2 King Lappen MK-AALDW-YOK [address] [place] Work Phone: 06-07-2020 10:41-0400 Pulse (Heart Rate) 101 /min King Lappen OQ-BJIUG-UQM [address] [place] Work Phone: 06-07-2020 10:41-0400 0 1 King Lappen MI-NDNMV-FNC [address] [place] Work Phone: Comment on above: Pain Scale 12-25-2019 10:58-0500 BMI (Body Mass Index) 30.18 kg/m2 King Lappen DI-NMVDU-EFA [address] [place] Work Phone: 12-25-2019 10:58-0500 Body weight 74.84 kg King Lappen JP-CIKEJ-LRV [address] [place] Work Phone: 12-25-2019 10:58-0500 BP Diastolic 68 mm[Hg] King Lappen TM-KUHFG-DJN [address] [place] Work Phone: 12-25-2019 10:58-0500 BP Systolic 112 mm[Hg] King Lappen ZD-QTLXE-ALM [address] [place] Work Phone: 12-25-2019 10:58-0500 BSA (Body Surface Area) 1.76 m2 King Lappen MZ-BVKQI-IUO [address] [place] Work Phone: 11-09-2019 11:28-0500 Body Temperature 98.78 [degF] Kelechi Gage KZ-QSCCN-Kazjwa 310 IVF Work Phone: 11-09-2019 11:28-0500 BP Diastolic 76 mm[Hg] Kelechi Gage FN-TMRFR-Jslxur 310 IVF Work Phone: 11-09-2019 11:28-0500 BP Systolic 112 mm[Hg] Kelechi Gage YG-HRUWB-Xsippo 310 IVF Work Phone: 11-09-2019 11:28-0500 Respiratory Rate 96 /min Kelechi Gage EV-UJZRO-Vvecig 310 IVF Work Phone: Encounters Encounter Date Encounter Type Care Provider Facility Start: 01-10-2024 ambulatory Evelyn Perez MD Facility:Pulmonology & Critical Care Medicine [facility] Start: 11-03-2023 End: 11-03-2023 ambulatory RADAMES RIBEIRO Not Available Start: 10-05-2023 End: 10-05-2023 ambulatory SHERMAN HUNTER Not Available Start: 09-14-2023 End: 09-14-2023 ambulatory Lc Waite Facility:[facility] Start: 02-27-2023 End: 02-27-2023 Emergency department patient visit EVELYN PEREZ [facility] Start: 02-27-2023 End: 02-27-2023 Emergency department patient visit Evelyn Perez Work Phone: [facility] ED Comment on above: Sprain of left ankle , unspecified ligament, initial encounter (Primary Dx) Start: 01-13-2023 End: 01-14-2023 ambulatory Zoyakandis Cheung Iftikhar [employer]PL[employer] MAKER-[employer]TER Facility:Pulmonology & Critical Care Medicine [facility] Start: 01-11-2023 End: 01-11-[address] RADAMES RIBEIRO . Facility:[facility] Start: 09-22-2022 End: 09-22-2022 Emergency department patient visit JAMI ROMERO [facility] Start: 03-10-[address] EVELYN PEREZ [...] 12-27-2021 End: 12-27-2021 ambulatory Sabina Barnhart Other [employer] Other Start: 12-27-2021 Office outpatient visit 5 minutes Sabina Barnhart [facility] Start: 07-16-2021 Patient encounter procedure Evelyn Trevinohorn Work Phone: NE-YWRWQ-Javxfs 310 IVF Work Phone: Start: 07-07-2021 AUDIT Evelyn Husain Scherm erhorn Work Phone: TE-REGQA-Ffpiyo 310 IVF Work Phone: Start: 07-07-2021 Chart Update Evelyn Husain Scherm erhorn Work Phone: LB-SYMUH-Abqwwy 310 IVF Work Phone: Start: 07-02-2021 Telephone encounter Evelyn Husain Alejandro gonzales Work Phone: AB-CLTMB-Eldixs 310 IVF Work Phone: Start: 06-19-2021 Patient encounter procedure Evelyn Trevinohorn Work Phone: XE-IAFBA-Jbpipz 310 IVF Work Phone: Start: 06-07-2020 Patient encounter procedure King Lappen FG-YYZXB-RVG [address] [place] Work Phone: Start: 04-24-2020 Patient encounter procedure King Lappen VA-EAYJA-QPS [address] [place] Work Phone: Start: 02-20-2020 Patient encounter procedure King Lappen YD-EJBBZ-ZTT [address] [place] Work Phone: Start: 02-14-2020 Patient encounter procedure King Lappen YD-IBCXG-PJC [address] [place] Work Phone: Start: 01-23-2020 Patient encounter procedure King Lappen DV-FTMDI-AOE [address] [place] Work Phone: Start: 12-25-2019 Patient encounter procedure King Lappen ID-YATZQ-BFU [address] [place] Work Phone: Start: 11-21-2019 Patient encounter procedure King Lappen OB-BZHTI-UES [address] [place] Work Phone: Start: 11-16-2019 Patient encounter procedure Kelechi Gage MP-Reproductive Endocrinology-[place] 206 Work Phone: Start: 11-14-2019 Patient encounter procedure Kelechi Gage GP-TEGIY-Hywxsn 310 IVF Work Phone: Start: 11-09-2019 Patient encounter procedure Kelechi Gage QX-OFQIA-Oxpmqb 310 IVF Work Phone: Start: 11-02-2019 Patient encounter procedure Kelechi Gage MP-Reproductive Endocrinology-[place] Work Phone: Start: 10-21-2019 Patient encounter procedure Kelechi Gage MP-Reproductive Endocrinology-[place] Work Phone: Start: 10-14-2019 Patient encounter procedure Kelechi Gage RI-HNJQW-Utxttm 310 IVF Work Phone: Start: 10-11-2019 Patient encounter procedure Kelechi Gage LO-ALJMH-Aeoqqv 310 IVF Work Phone: Start: 10-05-2019 Patient encounter procedure Kelechi Gage YO-WQAAV-Qfxien 320 Work Phone: Start: 10-02-2019 Patient encounter procedure Kelechi TONGEC-FTFFW-Dmmmewu 206A IVF Work Phone: Start: 08-14-2019 Patient encounter procedure Kelechi TONGXN-ANLMP-Olwwgb 310 IVF Work Phone: Start: 08-13-2019 Patient encounter procedure Kelechi Gage BH-ZVSKC-Hnzslw 310 IVF Work Phone: Start: 08-12-2019 Patient encounter procedure Kelechi Gage HH-QHAMD-Zjbhzj 310 IVF Work Phone: Start: 08-11-2019 Patient encounter procedure Kelechi Gage UA-SIDLM-Pbgujx 310 IVF Work Phone: Start: 08-09-2019 Patient encounter procedure Kelechi Gage XD-LPOIA-Ytlhnf 310 IVF Work Phone: Start: 08-07-2019 Patient encounter procedure Kelechi Gage PE-HKSSH-Ivelto 310 IVF Work Phone: Start: 08-04-2019 Patient encounter procedure Kelechi Gage HR-JRCHQ-Lmiyui 310 IVF Work Phone: Start: 07-07-2019 Patient encounter procedure Kelechi Gage UT-TYOPB-Islsnz 310 IVF Work Phone: Start: 06-08-2019 Patient encounter procedure Kelechi Gage ED-QWYGU-Pxvksx 310 IVF Work Phone: Start: 05-17-2019 Patient encounter procedure Kelechi Gage DY-RYZHQ-Qgnlws 310 IVF Work Phone: Start: 05-08-2019 Patient encounter procedure Kelechi Gage NA-RZAYL-Hzwits 310 IVF Work Phone: Start: 05-05-2019 Patient encounter procedure Kelechi Gage JW-IKYVC-Vyhjlp 310 IVF Work Phone: Start: 04-13-2019 Patient encounter procedure Kelechi Gage SU-ZVTZR-Grnlhg 310 IVF Work Phone: Start: 04-11-2019 Patient encounter procedure Kelechi Gage ZZ-QACMI-Iofhys 310 IVF Work Phone: Start: 03-20-2019 Patient encounter procedure Kelechi Gage PU-QJNPN-Tklqar 310 IVF Work Phone: Start: 03-17-2019 Patient encounter procedure Kelechi Gage IB-OICOR-Lnujvc 310 IVF Work Phone: Start: 02-22-2019 Patient encounter procedure Kelechi Gage RL-HODCM-Vlbhdx 310 IVF Work Phone: Start: 02-20-2019 Patient encounter procedure Kelechi Gage AZ-NZRZF-Fmiafq 310 IVF Work Phone: Start: 02-13-2019 Patient encounter procedure Bruce Mayes Facility:[facility] Start: 02-08-2019 End: 02-12-2019 Patient encounter procedure Bruce Mayes Facility:[facility] Start: 01-19-2019 Patient encounter procedure Kelechi Gage QJ-ACZDZ-Fvrwfz 310 IVF Work Phone: Patient encounter status Evelyn Perez Work Phone: CU-GHMJE-Lzhpzx 310 IVF Work Phone: Procedures Date Procedure Procedure Detail Performing Clinician Start: 02-27-2023 Radex ankle complete minimum 3 views Dusty Escalante MD Work Phone: Start: 02-19-2022 Delivery of Products of Conception, External Approach DR VEELYN PEREZ Start: 02-19-2022 Division of Female Perineum, [...] Auto Different ial panel - Blood Kelechi Gage Start: 11-09-2019 Comprehensive metabo lic 2000 panel Kelechi Gage Start: 11-09-2019 Gonadotropin chorion ic quantitative Kelechi Gage Start: 11-09-2019 IO Ultrasound, Kelechi Gage Start: 11-09-2019 Urnls dip stick/tabl et rgnt [...] Kelechi Gage Extraction of wisdom tooth Eve Gage Plan of Treatment Date Care Activity Detail Author Start: 06-15-2023 Influenza vaccination Flu vacc ine (Season Ended) [facility] Start: 2021 Screening for malign ant neoplasm of cervix [facility] Start: 07-25-2021 ULTRASOUND, Provider : OBGYN IVF RDMS AR[place] 1,[facility] O[facility], Status: Pen, Time: 9:00 AM ULTRASOUND, Provider: OBGYN IVF RDMS AR[place] 1,MG OBGYN, Status: Pen, Time: 9:00 AM DT-FZKEQ-Gkmtpe 310 IVF Work Phone: Start: 07-16-2021 ULTRASOUND, Provider : OBGYN IVF RDMS [id number] 1,MG OBGYN, Status: Pen, Time: 1:00 PM ULTRASOUND, Provider: OBGYN IVF RDMS [id number] 1,[facility] OBGYN, Status: Pen, Time: 1:00 PM QA-LFGXM-Vkmvso 310 IVF Work Phone: Start: 07-07-2021 ULTRASALIN, Provider : Miguel A Barrera, Status: Pen, Time: 10:00 AM ULTRASALIN, Provider: Miguel A Barrera, Status: Pen, Time: 10:00 AM FU-NYLOQ-Dteouz 310 IVF Work Phone: Start: 06-05-2020 MAC Imaging Order MG-[employer]AR-[facility] [address] [place] Work Phone: Start: 11-16-2019 IO Ultrasound, -Reproductive Endocrinology-[place] 206 Work Phone: Start: 11-14-2019 Blood count complete auto&auto difrntl wbc Complete Blood Count + Differential SD-HLDHN-Trmvks 310 IVF Work Phone: Start: 11-14-2019 Comprehensive metabo lic 2000 panel HN-JULFS-Uznjcu 310 IVF Work Phone: Start: 11-02-2019 Gonadotropin chorion ic quantitative HCG, Beta Quantitative -Reproductive Endocrinology-[facility] [place] [address] Work Phone: Start: 10-11-2019 IO Ultrasound, limited pelvic, follicle monitoring SF-APDUE-Sufzrp 310 IVF Work Phone: Start: 10-05-2019 IO Ultrasound, limited pelvic, follicle monitoring VQ-GRIFG-Yntiwc 320 Work Phone: Start: 2012 Screening for malign ant neoplasm of cervix Pap smear [facility] Start: 2010 DTaP/Tdap/Td vaccine (1 - Tdap) DTaP/Tdap/Td vaccine (1 - Tdap) [facility] Start: 2009 Hepatitis C screening Hepatitis C sc reen [facility] Start: 2006 HIV screening HIV screen [facility] Start: 2003 Depression Screen Depression Screen [facility] Start: 1992 Varicella vaccine (1 of 2 - 2-dose childhood series) Varicella vaccine (1 of 2 - 2-dose childhood series) [facility] Start: 03-02-1992 COVID-19 Vaccine (#1) COVID-19 Vacci ne (#1) [facility] Assay of estradiol Estradiol, Serum MG-[employer] REGISTRAR-[place] 310 IVF Work Phone: Comment on above: Approx [id number] Approx [id number] Approx [id number] Assay of progesterone Progesterone, Serum OA-OKAMI-Lzecoe 310 IVF Work Phone: Comment on above: Approx [id number] Gonadotropin luteini zing hormone Luteinizing Hormone, Serum XN-QYZNF-Kvnruv 310 IVF Work Phone: Comment on above: Approx [id number] SO-XWDGE-Prelzv 320 Work Phone: IO Ultrasound, l imited pelvic, follicle monitoring RC-UFIVW-Ckhyoo 310 IVF Work Phone: Comment on above: Approx [id number] Approx [id number] Approx [id number] NEGATED: Highlighted row has been ruled out! Planned Goals not documented GN-QUPAC-Ticxkz 310 IVF Work Phone: Payers Date Payer Category Payer Self-pay 2017 Unknown 1991 Unknown [id number] 2.16.84 [id number] 1991 Unknown [id number] 2.16.84 0.1.747717.3.579.2.593 1991 Unknown [id number] 2.16.84 0.1.510301.3.579.2.593 1991 Unknown [id number] 2.16.84 0.1.567014.3.579.2.593 1991 Unknown [id number] 2.16.84 0.1.630103.3.579.2.593 1991 Unknown [id number] 2.16.84 0.1.801871.3.579.2.593 1991 Unknown [id number] 2.16.84 0.1.811727.3.579.2.593 1991 Unknown [id number] 2.16.84 0.1.217084.3.579.2.593 1991 Unknown [id number] 2.16.84 0.1.449071.3.579.2.593 1991 Unknown [id number] 2.16.84 0.1.306562.3.579.2.593 1991 Unknown [id number] 2.16.84 0.1.664050.3.579.2.593 1991 Unknown [id number] 2.16.84 0.1.903109.3.579.2.593 1991 Unknown [id number] 2.16.84 0.1.760642.3.579.2.593 1991 Unknown [id number] 2.16.84 0.1.758748.3.579.2.593 1991 Unknown [id number] 2.16.8 40.1.446399.3.579.2.173 1991 Unknown [id number] 2.16.8 40.1.718019.3.579.2.173 1991 Unknown [id number] 2.16. 840.1.547844.3.579.2.196 1991 Unknown [id number] 2.16. 840.1.035084.3.579.2.196 1991 Unknown [id number] 2.16.840 .1.989110.3.579.2.1259 1991 Unknown [id number] 2.16.840 .1.557795.3.579.2.1259 1959 Self-pay [id number] 1959 Unknown [id number] 1959 Unknown [id number] Unknown [id number] 2.16.8 40.1.465147.3.579.2.243 Unknown [id number] 2.16.8 40.1.769574.3.579.2.243 Unknown [id number] 2.16.8 40.1.818001.3.579.2.531 Social History Date Type Detail Facility - - VT-KSWFX-Aguyxa 310 IVF Work Phone: Never a smoker Never a smoker MG-[place]-Renee rosario 310 IVF Work Phone: Comment on above: [facility] ED; Sex Assigned At Sex Assigned At [facility] [employer] Other Start: 09-22-2022 [facility] [employer] Phone: Start: 09-22-2022 Tobacco use and exposure Smokeless tobacco non-user [employer] Phone: Start: 1991 Sex Assigned At Not on file B ON [employer] Phone: Start: 02-17-2023 End: 02-27-2023 Exposure to SARS-CoV-2 (event) Not sure [employer] Functional Status Date Assessment Result Facility NEGATED: Highlighted row Functional performance Functional status health issues are not documented Disease VS-IEHGR-Lpczuo 310 IVF Work Phone: Mental Status Date Assessment Result Facility NEGATED: Highlighted row Cognitive function [Interpretation] Cognitive status health issues are not documented Disease KU-OJFQP-Sccmgz 310 [employer] Work Phone: Clinical Note 01-13-2023 Note Date [...] qualifying data available. Assessment/Plan 1. Asthma Ordered: 45014 AMB Admin of patient-focused health risk assessment [...] signed by Link Zoya PERKINS 01/13/23 12:06 [facility] Evaluation note 12-27-2021 Note Date [...] Patient care instructions given in writting by [facility] Care At Home document. [employer] Other Clinical Note 07-25-2021 Note Date & [...] care. Reviewed plan with Dr. Bruce Aburto, ARTIFICIAL ST[employer] SETTER 07/25/2021 09:22 note: ob scan LOLLY: 03/05/2022. [...] Plan reviewed by Dr. Healy. Petra Lombardi ARTIFICIAL STONE SETTER 07/16/21 1409 TC to pt with quant = 3238 form yesterday; normal rise from 728 on 07/02; Pt doing well; no problems with Lovenox. PT transferred to [facility] to schedule OB US for next week at [facility]. [address] RN 07/07/2021 11:47 Spoke with patient regarding HUYG=110. Pain=0. Patient states she will begin prometrium BID and Lovenox today. Patient will repeat BHCg on Wednesday when she is at work. Patient aware RN will call her WednesdayJuly 07 with results and plan. Lucy Dunlap R.N.07/03/2021 12:19 Spoke to patient, will start Prometrium 100 mg BID and Lovenox 40 mg BID today (+Protein S deficiency). [place] to f/u with patient tomorrow once HCG level is back. Patient verbalized understanding. Rosibel Sam RN 07/02/2021 13:54 note: Reviewed positive test. LMP 715, conceived on christy cycle/IC. Plan to get HCG drawn today. Start Prometrium 100mg BID. Start Lovenox 40mg BID SQ. Plan per Dr. Healy. RN to communicate. Petra Lombardi [employer]TER 07/02/21 1304 Active Problems 16 weeks gestation [...] directed. Peak F (more content not included)... WO Funding Chief complaint Narrative - Reported 06-19-2021 Note [...] COVID-19 pandemic. Verbal consent obtained for telemedicine visit.me [id number] IVF Work Phone: History of Present illness Narrative 06-15-2020 Note Date & Type Note Facility 06-15-2020 History of Present illness Narrative IVF Consult:Patient is a 30 year-old who presents for a FET [id number] Hx:06/2020: IOL @ 38 weeks due to [...] contour on HSG - images reviewed from [facility] 08/2018Uterine Cavity Evaluation:Normal uterine cavity on HSG- [...] on therapeutic dosing when Genetic Screening Hx: [employer] foresight screen negativePartner History:Franklin Ashley 04/09/1989A in past year:2.8 cc125 mil/mL69% [id number]=218 million(recent IUI sample)Morph from original SA was 2.8% [id number] IVF Work Phone: Evaluation note Note Date & Type Note Facility Evaluation note Diagnosis Sprain of left ankle, unspecified ligament, initial encounter- Primary documented in this encounter [employer] Work Phone: Hospital Discharge instructions Attachments Note Date & Type Note Facility Hospital Discharge instructions The following attachments cannot be sent through Care Everywhere.Ankle Sprain ([place]izen [place])Ankle Sprain: Rehab Exercises ([place]izen [place])documented in this encounter [employer] Work Phone: Summary Purpose Family History No Family [...] section and content) DATE CREATED AUTHOR 02/15/2019 [facility] DATE CREATED AUTHOR AUTHOR'S ORGANIZ ATION 11/12/2019 [facility] DATE CREATED AUTHOR AUTHOR'S ORGANIZ ATION 08/09/2020 [facility] DATE CREATED AUTHOR AUTHOR'S ORGANIZ ATION 07/26/2021 [facility] DATE CREATED AUTHOR AUTHOR'S ORGANIZ ATION 01/21/2023 [facility] DATE CREATED AUTHOR AUTHOR'S ORGANIZ ATION 03/06/2023 [facility] DATE CREATED AUTHOR AUTHOR'S ORGANIZ ATION 07/12/2023 [facility] DATE CREATED AUTHOR AUTHOR'S ORGANIZ ATION 10/04/2023 [place] DATE CREATED AUTHOR AUTHOR'S ORGANIZ ATION 10/30/2023 [facility] DATE CREATED AUTHOR AUTHOR'S ORGANIZ ATION 11/04/2023 [facility] EPIC REASON FOR VISIT (unrecogniz ed section and content) Reason Comments Ankle Pain Rolled ankle during morning run. Swelling to lateral ankle. Took ibuprofen and tylenol [employer]. 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 [facility] provides no warranty or guarantee of the accuracy or completeness of information in this document.
== END 2023-11-30 10:30 | disposition home or self-care (01) ==
LOC: US 10:29
PROVIDERS: Visit Provider Obstetrics & Gynecology
DX: O44.43 Low lying placenta NOS or without hemorrhage, third trimester (principal)
CPT/HCPCS: 76815

== ENCOUNTER 2023-12-21 06:31 | Outpatient (OUT) | payer OTHER, SELFPAY ==
--- OUTSIDE RECORDS SUMMARY | 2023-12-21 06:37 | XMS_ITS | CCD ---
Author Name Unknown Address [address] [place] [address] Organization [facility] Care Team Providers Care Enterprise Architect Name Role Phone Bruce Mayes Attending Unavailable [...] HER Unavailable Unavaila ble OBGYN IVF RDMS [id number] 1, MG OBGYN Unavailable Unavailable King Guevara Unavailable Unavailable Shahla Healy Unavailable Unavailable January, Jami Unavailable Unavailable Evelyn Perez Unavailable [phone] Unavailable Unavailable Unavailable Unavailable Sabina Barnhart Unavailable [...] Unavailable GISSEL ., DR CRUM Admitting Unavailable AnaEvelyn wilson Primary Care Provider JAMI ROMERO Attending EVELYN Patino Primary Care UnavailEVELYN Tomlinson Primary Care Unavailleyda e Lc Waite Admitting Evelyn Patino Primary Care Lc Khanna Attending Unavailable Iftikhar PERKINS, Zoya Cheung Attending Evelyn Robertson MD Primary [facility] Evelyn Hernandez MD Primary Care Zamzam PERKINS, Zoya Cheung Attending RADAMES Ahuja Attending SHERMAN Harden Attending RADAMES Mills Attending Be Allergies Allergy Classification Reported Allergen(s) Allergy Type Date of Onset Reaction(s) Facility Progesterone (2 sources) Progesterone; Translations: [Progesterone OIL] Drug Allergy [id number] n 310 IVF Work Phone: (16 sources) Progesterone; Translations: [Progesterone OIL] Drug Allergy 2 [facility] (2 sources) sesame seed extract Drug Allergy [facility] (1 source) No Known Medication Allergies; Translations: [No Known Medication Allergies] Propensity to adverse reactions to drug (disorder) [facility] Repository Medications Current Medications Medication [...] Kelechi Gage MD Start : 14-Aug-2019 Active [id number] 200 actuat albuterol 0.09 mg/actuat metered dose [...] DO Start : 19-Jan-2019 Active BD Disp Chaplin 27G X 1/2 (19 sources) Start: 10-03-2019 BD Disp Needle s 27G X 1/2 USE DIRECTED. Quantity: 2 Refills: 2 Shahla Healy MD Start : 03-Oct-2019 Active chorionic gonadotropin 16037 unt/ml injectable solution (19 sources) Gonadotropin Start: 10-03-2019 Chorionic Gonadotropin 58542 UNIT Intramuscular Solution Reconstituted USE DIRECTED. Quantity: [...] Use as directed. Quantity: 1 Refills: 0 King Guevara MD Start : 25-Dec-2019 Active Start: 12-25-2019 Peak Air Peak Flow Meter Device USE DIRECTED. Quantity: 1 Refills: 0 King Guevara MD Start : 25-Dec-2019 Active Peak Flow Meter [place] Rang Device (3 sources) Start: 01-23-2020 Peak Flow Mete r [place] Rang Device USE DIRECTED. Quantity: 1 Refills: [...] Demographics: Name: KIARA ASHLEY Date: 1990 Address: [address] [place] [address] Date and Time: 12-Jul-2023 09:31 Caller Information: call from Call From: patient Caller Name: Kiara Ferguson Phone Number: [phone] Reason for Call: Reason for Callmedication question [...] 09:57 by Harmony Ross (N MGR) Normal [facility] XR ANKLE LEFT (MIN 3 [...] Dario William MD 02/27/23 Final result Normal [facility] 1. No acute osseous abnormality involving the left ankle. [facility] RIS CONSOLIDATED EXAMINATION: THREE XRAY VIEWS [...] acute osseous abnormality involving the left ankle. [employer] Phone: Radiology Study observation (narrative) [employer] Phone: XR ANKLE LEFT (MIN 3 VIEWS)O rdered By: Dario William on 02-27-2023 [employer] Phone: PAP ACOG PANEL 2: 30 to 65on 01-19-2023 . . Normal [facility] Comment on above: Result Comment: Perf ormed at: WB Performed By: #### [id number] #### [facility] [address] [place] [address] Dr. Claire Mayes Age Gdln ACOG Testing 30-65 Normal [facility] Comment on above: Performed By: #### [id number] #### [facility] [address] [address] [address] Claire Mayes DIAGNOSIS: Comment Normal [facility] Comment on above: Result Comment: NEGA TIVE FOR INTRAEPITHELIAL LESION OR MALIGNANCY. Performed at: WB Performed By: #### [id number] #### [facility] [address] [address] [address] Claire Mayes HPV Aptima Negative Normal Negative [facility] Comment on above: Result Comment: This nucleic acid amplification test detects fourteen high-risk HPV types (16,18,31,33,35,39,45,51,52,56,58,59,66,68) without differentiation. Performed at: =G Performed By: #### [id number] #### [facility] [address] [place] [address] Dr. Claire Mayes HPV Genotype Reflex Comment Normal [facility] Comment on above: Result Comment: Crit eria not met, HPV Genotype not performed. Performed at: WB Performed By: #### [id number] #### [facility] [address] [place] [address] Dr. Claire Mayes Methodology: Comment Normal [facility] Comment on above: Result Comment: This liquid based ThinPrep(R) pap test was screened with the use of an image guided system. Performed at: WB Performed By: #### [id number] #### [facility] [address] [place] [address] Dr. Claire Mayes Note: Comment Normal [facility] Comment on above: Result Comment: The Pap smear is a screening test designed to aid in the detection of premalignant and malignant conditions of the uterine cervix. It is not a diagnostic procedure and should not be used as the sole means of detecting cervical cancer. Both false-positive and false-negative reports do occur. . Performed at: WB Performed By: #### [id number] #### [facility] [address] [place] [address] Dr. Claire Mayes Performed by: Comment Normal [facility] Comment on above: Result Comment: Sherlyn Wright [employer] Verifier (ASCP) Performed at: WB Performed By: #### [id number] #### [facility] [address] [place] [address] Dr. Claire Mayes Specimen adequacy: Comment Normal [facility] Comment on above: Result Comment: Sati sfactory for evaluation. No endocervical component is identified. Performed at: WB Performed By: #### [id number] #### [facility] [address] [place] [address] Dr. Claire Mayes CBC with Diffon 09-22-2022 Abs. Basophil 0.03 k/uL Normal 0.00-0.20 [facility] Comment on above: Performed By: #### L IP, CDP, CP #### [address] [place], [facility] Director Clinical Pharmacology: Jesse Curry MD Abs.Imm.Granulocy te 0.04 k/uL Normal 0.00-0.30 [facility] Comment on above: Performed By: #### L IP, CDP, CP #### [address] [place] [address] Director Clinical Pharmacology: Jesse Curry MD Abs.Neutrophil (Seg) 12.54 k/uL High 1.50-8.10 [facility] Comment on above: Performed By: #### L IP, CDP, CP #### [address] [place] [address] Director Clinical Pharmacology: Jesse Curry MD Basophils/100 WBC (Bld) 0 % Normal 0-2 [facility] Comment on above: Performed By: #### L IP, CDP, CP #### [address] [place], [place] [address] Director Clinical Pharmacology: Jesse Curry MD Eosinophils (Bld) [#/Vol] 0.16 10*3/uL Normal 0.00-0.44 [facility] Comment on above: Performed By: #### L IP, CDP, CP #### [address] [place], [place] [address] Director Clinical Pharmacology: Jesse Curry MD Eosinophils/100 WBC (Bld) 1 % Normal 1-4 [facility] Comment on above: Performed By: #### L IP, CDP, CP #### [address] [place] [id number] Director Clinical Pharmacology: Jesse Curry MD Erythrocyte distribution width (RBC) [Ratio] 13.6 % Normal 11.8-14.4 [facility] Comment on above: Performed By: #### L IP, CDP, CP #### [address] [place], [place] [id number] Director Clinical Pharmacology: Jesse Curry MD Hematocrit (Bld) [Volume fraction] 46.4 % Normal 36.3-47.1 [facility] Comment on above: Performed By: #### L IP, CDP, CP #### [address] [place], [facility] Director Clinical Pharmacology: Jesse Curry MD Hemoglobin (Bld) [Mass/Vol] 15.6 g/dL High 11.9-15.1 [facility] Comment on above: Performed By: #### L IP, CDP, CP #### [address] [place], [facility] Director Clinical Pharmacology: Jesse Curry MD Immature granulocytes/100 WBC (Bld) 0 % Normal 0 [facility] Comment on above: Performed By: #### L IP, CDP, CP #### [address] [place], [facility] Director Clinical Pharmacology: Jesse Curry MD Lymphocytes (Bld) [#/Vol] 0.98 10*3/uL Low 1.10-3.70 [facility] Comment on above: Performed By: #### L IP, CDP, CP #### [address] [place], [facility] Director Clinical Pharmacology: Jesse Curry MD Lymphocytes/100 WBC (Bld) 7 % Low 24-43 [facility] Comment on above: Performed By: #### L IP, CDP, CP #### [address] [place], [facility] Director Clinical Pharmacology: Jesse Curry MD MCH (RBC) [Entitic mass] 30.4 pg Normal 25.2-33.5 [facility] Comment on above: Performed By: #### L IP, CDP, CP #### [address] [place] [address] Director Clinical Pharmacology: Jesse Curry MD MCHC (RBC) [Mass/Vol] 33.6 g/dL Normal 28.4-34.8 [facility] Comment on above: Performed By: #### L IP CDP, CP #### [facility] [address] [place] [address] Dr. [place], [place] [id number] Director Clinical Pharmacology: Jesse Curry MD MCV (RBC) [Entitic vol] 90.3 fL Normal 82.6-102.9 [facility] Comment on above: Performed By: #### L IP CDP, CP #### [address] [place] [address] Director Clinical Pharmacology: Jesse Curry MD Monocytes (Bld) [#/Vol] 0.58 10*3/uL Normal 0.10-1.20 [facility] Comment on above: Performed By: #### L BJ BUCK, CP #### [address] [place], [facility] Director Clinical Pharmacology: Jesse Curry MD Monocytes/100 WBC (Bld) 4 % Normal 3-12 [facility] Comment on above: Performed By: #### L BJ BUCK, CP #### [address] [place] [address] Director Clinical Pharmacology: Jesse Curry MD Neutrophil (Seg) 88 % High 36-65 [facility] Comment on above: Performed By: #### L CIELO CDP, CP #### [facility] [address] [place] [address] Dr. [place], [facility] Director Clinical Pharmacology: Jesse Curry MD NRBC Automated 0.0 per 100 WBC Normal 0.0 [facility] Comment on above: Performed By: #### L IP, CDP, CP #### [facility] [address] [place] [address] [place] [address] Director Clinical Pharmacology: Jesse Curry MD Platelet mean volume (Bld) [Entitic vol] 9.9 fL Normal 8.1-13.5 [facility] Comment on above: Performed By: #### L BJ BUCK, CP #### [facility] [address] [place], [place] [id number] Director Clinical Pharmacology: Jesse Curry MD Platelets (Bld) [#/Vol] 299 10*3/uL Normal 138-453 [facility] Comment on above: Performed By: #### L IP CDP, CP #### [facility] [address] [place] [address] Director Clinical Pharmacology: Jesse Curry MD RBC (Bld) [#/Vol] 5.14 10*6/uL High 3.95-5.11 [facility] Comment on above: Performed By: #### L BJ BUCK, CP #### [address] [place] [address] Director Clinical Pharmacology: Jesse Curry MD WBC (Bld) [#/Vol] 14.3 10*3/uL High 3.5-11.3 [facility] Comment on above: Performed By: #### L BJ BUCK, CP #### [address] [place], [place] [id number] Director Clinical Pharmacology: Jesse Curry MD CT ABDOMEN PELVIS W [...] A Maldonado DO 09/22/22 Final result Normal [facility] Comp Metabolic Profon 2021 Albumin [Mass/Vol] 4.7 g/dL Normal 3.5-5.2 [facility] Comment on above: Performed By: #### L BJ BUCK, CP #### [facility] [address] [place] [address] [place] [address] Director Clinical Pharmacology: Jesse Curry MD Albumin/Glob Ratio 2.0 Normal 1.0-2.5 [facility] Comment on above: Performed By: #### L BJ BUCK, CP #### [facility] [address] [place] [address] Director Clinical Pharmacology: Jesse Curry MD Alkaline Phos 77 U/L Normal 35-104 [facility] Comment on above: Performed By: #### L BJ BUCK, CP #### [facility] [address] [place] [address] Director Clinical Pharmacology: Jesse Curry MD ALT [Catalytic activity/Vol] 10 U/L Normal 5-33 [facility] Comment on above: Performed By: #### L BJ BUCK, CP #### [facility] [address] [place], [place] [id number] Director Clinical Pharmacology: Jesse Curry MD Anion gap [Moles/Vol] 12 mmol/L Normal 9-17 [facility] Comment on above: Performed By: #### L IP, CDP, CP #### [facility] [address] [place], [place] [id number] Director Clinical Pharmacology: Jesse Curry MD AST [Catalytic activity/Vol] 14 U/L Normal <32 [facility] Comment on above: Performed By: #### L IP, CDP, CP #### [facility] [address] [place], [place] [address]83 Director Clinical Pharmacology: Jesse Curry MD Bilirubin [Mass/Vol] 0.6 mg/dL Normal 0.3-1.2 [facility] Comment on above: Performed By: #### L IP, CDP, CP #### [address] [place], [place] [id number] Director Clinical Pharmacology: Jesse Curry MD BUN/CRE Ratio 31 High 9-20 [facility] Comment on above: Performed By: #### L IP, CDP, CP #### [address] [place], [place] [id number] Director Clinical Pharmacology: Jesse Curry MD Calcium [Mass/Vol] 9.8 mg/dL Normal 8.6-10.4 [facility] Comment on above: Performed By: #### L IP, CDP, CP #### [facility] [address] [place] [address] Dr. [place], [place] [id number] Director Clinical Pharmacology: Jesse Curry MD Chloride [Moles/Vol] 104 mmol/L Normal 98-107 [facility] Comment on above: Performed By: #### L IP, CDP, CP #### [facility] [address] [place] [address] Dr. [place], [place] [id number] Director Clinical Pharmacology: Jesse Curry MD CO2 [Moles/Vol] 22 mmol/L Normal 20-31 [facility] Comment on above: Performed By: #### L IP CDP, CP #### [facility] [address] [place] [address] Director Clinical Pharmacology: Jesse Curry MD Creatinine [Mass/Vol] 0.85 mg/dL Normal 0.50-0.90 [facility] Comment on above: Performed By: #### L IP, CDP, CP #### [facility] [address] [place] [address] Director Clinical Pharmacology: Jesse Curry MD GFR/1.73 sq M.predicted among non-blacks MDRD (S/P/Bld) [Vol rate/Area] mL/min/{1.73_m2} Normal >60 [facility] Comment on above: Result Comment: Effective [...] renal tubular secretion. Performed By: #### L IP CDP, CP #### [facility] [address] [place] [address] Director Clinical Pharmacology: Jesse Curry MD Glucose [Mass/Vol] 109 mg/dL High 70-99 [facility] Comment on above: Performed By: #### L IP, CDP, CP #### [facility] [address] [place] [address] Director Clinical Pharmacology: Jesse Curry MD Potassium [Moles/Vol] 4.0 mmol/L Normal 3.7-5.3 [facility] Comment on above: Performed By: #### L IP, CDP, CP #### [facility] [address] [place] [address] Director Clinical Pharmacology: Jesse Curry MD Protein [Mass/Vol] 7.1 g/dL Normal 6.4-8.3 [facility] Comment on above: Performed By: #### L IP, CDP, CP #### [facility] [address] [place] [id number] Director Clinical Pharmacology: Jesse Curry MD Sodium [Moles/Vol] 138 mmol/L Normal 135-144 [facility] Comment on above: Performed By: #### L IP, CDP, CP #### [facility] [address] [place] [address] Director Clinical Pharmacology: Jesse Curry MD Urea nitrogen [Mass/Vol] 26 mg/dL High 6-20 [facility] Comment on above: Performed By: #### L IP, CDP, CP #### [facility] [address] [place] [address] [place] [address] Director Clinical Pharmacology: Jesse Curry MD HCG, ,Urineon 09-22 Beta HCG ( test) Ql (U) Negative Normal NEG [facility] Comment on above: Result Comment: Spec imens with hCG levels near the threshold of the test (25 mIU/mL) may give a negative or indeterminate result. In such cases, another test should be performed with a new specimen in 48-72 hours. If early is suspected clinically in this setting, correlation with quantitative serum b-hCG level is suggested. [facility] has confirmed the use of plasma for this test. This has not been cleared or approved by the U.S. Food and Drug Administration. The FDA has determined that such clearance is not necessary. Performed By: #### U HCG #### [facility] [address] [place] [address] [place] [address] Director Clinical Pharmacology: Jesse Curry MD Lactic Acidon 09-22-2022 Lactate [Moles/Vol] 1.8 mmol/L Normal 0.5-2.2 [facility] Comment on above: Performed By: #### L ACTIC #### [facility] [address] [place], [place] [id number] Director Clinical Pharmacology: Jesse Curry MD Lipaseon 09-22-2022 Lipase [Catalytic activity/Vol] 39 U/L Normal 13-60 [facility] Comment on above: Performed By: #### L IP, CDP, CP #### [facility] [address] [place] [address] Director Clinical Pharmacology: Jesse Curry MD UA w/Reflex Cultureon 2021 Bilirubin, SemiQt,Ur Negative Normal NEG [facility] Comment on above: Performed By: #### U MICAO, UAX #### [facility] [address] [place], [place] [phone] Director Clinical Pharmacology: Jesse Curry MD Blood, Urine Negative Normal NEG [facility] Comment on above: Performed By: #### U MICAO, UAX #### [facility] [address] [place], [place] [phone] Director Clinical Pharmacology: Jesse Curry MD Clarity (U) Clear Normal CLEAR [facility] Comment on above: Performed By: #### U MICAO, UAX #### [facility] [address] [place], [place] [phone] Director Clinical Pharmacology: Jesse Curry MD Color (U) Yellow Normal YEL [facility] Comment on above: Performed By: #### U MICAO, UAX #### [facility] [address] [place], [place] [id number] Director Clinical Pharmacology: Jesse Curry MD Glucose Ql (U) Negative Normal NEG [facility] Comment on above: Performed By: #### U MICAO, UAX #### [facility] [address] [place], [place] [phone] Director Clinical Pharmacology: Jesse Curry MD Ketones Ql (U) Negative Normal NEG [facility] Comment on above: Performed By: #### U MICAO, UAX #### [facility] [address] [place] [address] Director Clinical Pharmacology: Jesse Curry MD Leukocyte esterase Test strip Ql (U) Negative Normal NEG [facility] Comment on above: Performed By: #### U MICAO, UAX #### [facility] [address] [place] [address] Dr. [place], [place] [id number] Director Clinical Pharmacology: Jesse Curry MD Nitrite,Ur Negative Normal NEG [facility] Comment on above: Performed By: #### U MICAO, UAX #### [address] [place], [place] [id number] Director Clinical Pharmacology: Jesse Curry MD PH,Ur 8.0 Normal 5.0-9.0 [facility] Comment on above: Performed By: #### U MICAO, UAX #### [address] [place] [address] Director Clinical Pharmacology: Jesse Curry MD Protein Ql (U) Negative Normal NEG [facility] Comment on above: Performed By: #### U MICAO, UAX #### [address] [place], [place] [id number] Director Clinical Pharmacology: Jesse Curry MD Spec. [place],Ur 1.020 Normal 1.010-1.020 [facility] Comment on above: Performed By: #### U MICAO, UAX #### [facility] [address] [place] [address] Dr. [place], [place] [id number] Director Clinical Pharmacology: Jesse Curry MD Urobilinogen,Ur Normal Normal NORM [facility] Comment on above: Performed By: #### U MICAO, UAX #### [address] [place], [place] [phone] Director Clinical Pharmacology: Jesse Curry MD Urinalysis,Microon 2 Bacteria TRACE Abnormal NONE [facility] Comment on above: Performed By: #### U MICAO, UAX #### [facility] [address] [place], [place] 1403283 Director Clinical Pharmacology: Jesse Curry MD Epithelial cells LM Ql (Urine sed) 0 TO 2 Normal 0-25 [facility] Comment on above: Performed By: #### U MICAO, UAX #### [facility] [address] [place], [facility] Director Clinical Pharmacology: Jesse Curry MD Urine RBC's None Normal 0-2 [facility] Comment on above: Performed By: #### U ESTRELLITAO, UAX #### [facility] [address] [place] [address] Director Clinical Pharmacology: Jesse Curry MD Urine WBC's 0 TO 2 Normal 0-5 [facility] Comment on above: Performed By: #### U DARIO, UAX #### [facility] [address] [place] [address] Dr. [place], [facility] Director Clinical Pharmacology: Jesse Curry MD CBC AUTO DIFFon 02-20-2022 BASO # 0.1 103/ul Normal 0.0-0.1 [facility] Comment on above: Performed By: #### C BC #### [facility] [address] [place] [address] Dr. Claire Mayes Basophils/100 WBC (Bld) 0.8 % Normal 0.2-2.0 [facility] Comment on above: Performed By: #### C BC #### [facility] [address] [place] [address] Dr. Claire Mayes EO # 0.2 103/ul Normal 0.0-0.7 [facility] Comment on above: Performed By: #### C BC #### [facility] [address] [place] [address] Dr. Claire Mayes Eosinophils/100 WBC (Bld) 0.9 % Normal 0.9-7.0 [facility] Comment on above: Performed By: #### C BC #### [facility] [address] [place] [address] Dr. Claire Mayes Erythrocyte distribution width (RBC) [Ratio] 15.0 % Normal 11.0-15.0 [facility] Comment on above: Performed By: #### C BC #### [facility] [address] [place] [address] Dr. Claire Mayes Hematocrit (Bld) [Volume fraction] 31.3 % Critically low 36.0-48.0 [facility] Comment on above: Performed By: #### C BC #### [facility] [address] [place] [address] Dr. Claire Mayes Hemoglobin (Bld) [Mass/Vol] 10.3 g/dL Critically low 12.0-16.0 [facility] Comment on above: Performed By: #### C BC #### [facility] [address] [place] [address] Dr. Claire Mayes IG # 0.21 10e3/ul Critically high 0.00-0.03 [facility] Comment on above: Performed By: #### C BC #### [facility] [address] [place] [address] Dr. Claire Mayes IG % 1.3 % Critically high 0.0-0.5 [facility] Comment on above: Performed By: #### C BC #### [facility] [address] [place] [address] Dr. Claire Mayes LYMPH # 2.1 103/ul Normal 1.2-3.8 [facility] Comment on above: Performed By: #### C BC #### [facility] [address] [place] [address] Dr. Claire Mayes Lymphocytes/100 WBC (Bld) 12.6 % Critically low 20.5-60.0 [facility] Comment on above: Performed By: #### C BC #### [facility] [address] [place] [address] Dr. Claire Mayes MANUAL DIFF REQ NO Normal [facility] Comment on above: Performed By: #### C BC #### [facility] [address] [place] [address] Dr. Claire Mayes MCH (RBC) [Entitic mass] 29.8 pg Normal 26.7-34.[address] [facility] Comment on above: Performed By: #### C BC #### [facility] [address] [place] [address] Dr. Claire Mayes MCHC (RBC) [Mass/Vol] 32.9 g/dL Normal 29.9-35.[address] [facility] Comment on above: Performed By: #### C BC #### [facility] [address] [place] [address] Dr. Claire Mayes MCV (RBC) [Entitic vol] 90.5 fL Normal 81.0-99.[address] [facility] Comment on above: Performed By: #### C BC #### [facility] [address] [place] [address] Dr. Claire Mayes MONO # 0.8 103/ul Normal 0.3-0.[address] [facility] Comment on above: Performed By: #### C BC #### [facility] [address] [place] [address] Dr. Claire Mayes Monocytes/100 WBC (Bld) 5.1 % Normal 1.7-12.[address] [facility] Comment on above: Performed By: #### C BC #### [facility] [address] [place] [address] Dr. Claire Mayes NEUT # 13.2 103/ul Critically high 1.4-6.5 [facility] Comment on above: Performed By: #### C BC #### [facility] [address] [place] [address] Dr. Claire Mayes Neutrophils/100 WBC (Bld) 79.3 % Critically high 43.0-75.[address] [facility] Comment on above: Performed By: #### C BC #### [facility] [address] [place] [address] Dr. Claire Mayes Platelet mean volume (Bld) [Entitic vol] 10.4 fL Normal 9.5-13.[address] [facility] Comment on above: Performed By: #### C BC #### [facility] [address] [place] [address] Dr. Claire Mayes PLT 233 103/ul Normal 150-[address] [facility] Comment on above: Performed By: #### C BC #### [facility] [address] [place] [address] Dr. Claire Mayes RBC 3.46 106/ul Critically low 4.20-5.40 [facility] Comment on above: Performed By: #### C BC #### [facility] [address] [place] [address] Dr. Claire Mayes WBC 16.6 103/ul Critically high 4.0-11.0 [facility] Comment on above: Performed By: #### C BC #### [facility] [address] [place] [address] Dr. Claire Mayes CBC AUTO DIFFon 02-18-2022 BASO # 0.1 103/ul Normal 0.0-0.1 [facility] Comment on above: Performed By: #### C BC #### [facility] [address] [place] [address] Dr. Claire Mayes Basophils/100 WBC (Bld) 0.7 % Normal 0.2-2.0 [facility] Comment on above: Performed By: #### C BC #### [facility] [address] [place] [address] Dr. Claire Mayes EO # 0.2 103/ul Normal 0.0-0.[address] [facility] Comment on above: Performed By: #### C BC #### [facility] [address] [place] [address] Dr. Claire Mayes Eosinophils/100 WBC (Bld) 1.2 % Normal 0.9-7.[address] [facility] Comment on above: Performed By: #### C BC #### [facility] [address] [place] [address] Dr. Calire Mayes Erythrocyte distribution width (RBC) [Ratio] 15.0 % Normal 11.0-15.0 [facility] Comment on above: Performed By: #### C BC #### [facility] [address] [place] [address] Dr. Claire Mayes Hematocrit (Bld) [Volume fraction] 35.1 % Critically low 36.0-48.0 [facility] Comment on above: Performed By: #### C BC #### [facility] [address] [place] [address] Dr. Claire Mayes Hemoglobin (Bld) [Mass/Vol] 11.8 g/dL Critically low 12.0-16.[address] [facility] Comment on above: Performed By: #### C BC #### [facility] [address] [place] [address] Dr. Claire Mayes IG # 0.30 10e3/ul Critically high 0.00-0.03 [facility] Comment on above: Performed By: #### C BC #### [facility] [address] [place] [address] Dr. Claire Mayes IG % 1.9 % Critically high 0.0-0.5 [facility] Comment on above: Performed By: #### C BC #### [facility] [address] [place] [address] Dr. Claire Mayes LYMPH # 2.9 103/ul Normal 1.2-3.8 [facility] Comment on above: Performed By: #### C BC #### [facility] [address] [place] [address] Dr. Claire Maeys Lymphocytes/100 WBC (Bld) 18.5 % Critically low 20.5-60.0 [facility] Comment on above: Performed By: #### C BC #### [facility] [address] [place] [address] Dr. Claire Mayes MANUAL DIFF REQ NO Normal [facility] Comment on above: Performed By: #### C BC #### [facility] [address] [place] [address] Dr. Claire Mayes MCH (RBC) [Entitic mass] 30.2 pg Normal 26.7-34.0 [facility] Comment on above: Performed By: #### C BC #### [facility] [address] [place] [address] Dr. Claire Mayes MCHC (RBC) [Mass/Vol] 33.6 g/dL Normal 29.9-35.[address] [facility] Comment on above: Performed By: #### C BC #### [facility] [address] [place] [address] Dr. Claire Mayes MCV (RBC) [Entitic vol] 89.8 fL Normal 81.0-99.[address] [facility] Comment on above: Performed By: #### C BC #### [facility] [address] [place] [address] Dr. Claire Mayes MONO # 0.7 103/ul Normal 0.3-0.[address] [facility] Comment on above: Performed By: #### C BC #### [facility] [address] [place] [address] Dr. Claire Mayes Monocytes/100 WBC (Bld) 4.7 % Normal 1.7-12.[address] [facility] Comment on above: Performed By: #### C BC #### [facility] [address] [place] [address] Dr. Claire Mayes NEUT # 11.3 103/ul Critically high 1.4-6.5 [facility] Comment on above: Performed By: #### C BC #### [facility] [address] [place] [address] Dr. Claire Mayes Neutrophils/100 WBC (Bld) 73.0 % Normal 43.0-75.[address] [facility] Comment on above: Performed By: #### C BC #### [facility] [address] [place] [address] Dr. Claire Mayes Platelet mean volume (Bld) [Entitic vol] 10.8 fL Normal 9.5-13.[address] [facility] Comment on above: Performed By: #### C BC #### [facility] [address] [place] [address] Dr. Claire Mayes PLT 233 103/ul Normal 150-[address] [facility] Comment on above: Performed By: #### C BC #### [facility] [address] [place] [address] Dr. Claire Mayes RBC 3.91 106/ul Critically low 4.20-5.40 [facility] Comment on above: Performed By: #### C BC #### [facility] [address] [place] [address] Dr. Claire Mayes WBC 15.5 103/ul Critically high 4.0-11.0 [facility] Comment on above: Performed By: #### C BC #### [facility] [address] [place] [address] Dr. Claire Mayes Covid-19 PCR ([facility])on SARS-CoV-2 (COVID-19) RNA FERDINAND+probe Ql (Unsp spec) Not detected Normal NOT DETECTED [facility] Comment on above: Result Comment: When [...] for this test is supported by the [place] of Health and Human Service's declaration that [...] used). Performed By: #### C VDTBH #### [facility] [address] [place] [address] Dr. Claire Mayes DRUG SCREEN RAPID (URINE)on 02-18-2022 AMP Negative Normal NEGATIVE [facility] Comment on above: Performed By: #### D RUGRPD #### [facility] [address] [place] [address] Dr. Claire Mayes BAR Negative Normal NEGATIVE [facility] Comment on above: Performed By: #### D RUGRPD #### [facility] [address] [place] [address] Dr. Claire Mayes BUP Negative Normal NEGATIVE [facility] Comment on above: Performed By: #### D RUGRPD #### [facility] [address] [place] [address] Dr. Claire Mayes BZO Negative Normal NEGATIVE [facility] Comment on above: Performed By: #### D RUGRPD #### [facility] [address] [place] [address] Dr. Claire Mayes KIT Negative Normal NEGATIVE [facility] Comment on above: Performed By: #### D RUGRPD #### [facility] [address] [place] [address] Dr. Claire Mayes CUT-OFFS SEE BELOW Normal [facility] Comment on above: Result Comment: AMP (Amphetamine): 500ng/mL, BAR (Barbituates): 200 ng/mL, BZO (Benzodiazepines): 150 ng/mL, BUP (Buprenorphine): 10 ng/mL, KIT (Cocaine): 150 ng/mL, mAMP (Methamphetamine): 500 ng/mL, MTD (Methadone): 200 ng/mL, OPI (Opiates): 100 ng/mL, OXY (Oxycodone): 100 ng/mL, PCP (Phencyclidine): 25 ng/mL, PPX (Propoxyphene): 300 ng/mL, THC (Cannabinoids): 50 ng/mL, TCA (Trycyclic Antidepressants): 300 ng/mL Performed By: #### D RUGRPD #### [facility] [address] [place] [address] Dr. Claire Mayes DRUG CUT HEADER DRUG CLASS TEST SYST EM CUT-OFF CONCENTRATIONS ARE FOLLOWS: Normal [facility] Comment on above: Performed By: #### D RUGRPD #### [facility] [address] [place] [address] Dr. Claire Mayes mAMP Negative Normal NEGATIVE [facility] Comment on above: Performed By: #### D RUGRPD #### [facility] [address] [address] [address] Claire Mayes MTD Negative Normal NEGATIVE [facility] Comment on above: Performed By: #### D RUGRPD #### [facility] [address] [place] [address] Dr. Claire Mayes OPI Negative Normal NEGATIVE [facility] Comment on above: Performed By: #### D RUGRPD #### [facility] [address] [address] [address] Claire Mayes OXY Negative Normal NEGATIVE [facility] Comment on above: Performed By: #### D RUGRPD #### [facility] [address] [place] [address] Dr. Claire Mayes PCP Negative Normal NEGATIVE [facility] Comment on above: Performed By: #### D RUGRPD #### [facility] [address] [place] [address] Dr. Claire Mayes PPX Negative Normal NEGATIVE [facility] Comment on above: Performed By: #### D RUGRPD #### [facility] [address] [place] [address] Dr. Claire Mayes TCA Negative Normal NEGATIVE [facility] Comment on above: Performed By: #### D RUGRPD #### [facility] [address] [place] [address] Dr. Claire Mayes THC Negative Normal NEGATIVE [facility] Comment on above: Performed By: #### D RUGRPD #### [facility] [address] [place] [address] Dr. Claire Mayes TYPE AND SCREENon 02-18-2022 TYPE AND SCREEN Negative Normal [facility] Comment on above: Performed By: #### T NS #### [facility] [address] [place] [address] Dr. Claire Mayes US PREG BIOPHY W [...] JESSE THOMAS Date: 2022-02-17 14:[address] [facility] US PREG BIOPHY W NON STRESSo [...] BLU FELIPE Date: 2022-02-10 16:[address] [facility] GROUP B STREP CULTUREon 01-14 S. agalactiae Ag Ql (Unsp spec) Culture Observations: Beta Strep called to Belgica Lange at office 02/04/22 @1504 -[facility] Isolate 1 Streptococcus agalactiae Heavy growth of ORGANISM 1 Streptococcus agalactiae ANTIBIOTIC M.I.C RX STATUS Benzylpenicillin <=0.06 S F Ampicillin <=0.25 S F Cefotaxime <=0.12 S F Ceftriaxone <=0.12 S F Levofloxacin 0.5 S F Erythromycin 2 R F Clindamycin <=0.25 S F Linezolid <=2 S F Vancomycin 0.5 S F Tetracycline >=16 R F Normal [facility] Comment on above: Performed By: #### G BSCX #### [facility] [address] [place] [address] Dr. 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 Verbal consent obtained for telemedicine visit. Guru.in History of Present IllnessIVF Consult: Patient is [...] contour on HSG - images reviewed from [facility] 08/2018 Uterine Cavity Evaluation: Normal uterine [...] Peak E2 1871--> IM P4--> successful IUP [employer] Hx: LMP: 05/29/21 Menstrual cycles: Have been [...] when Genetic Screening Hx: [employer] foresight screen negative Partner History: Franklin Ashley 04/09/1990 SA in past year: 2.8 cc 125 mil/mL 69% motility MAT=311 million (recent IUI sample) Morph from original SA was 2.8% Active Problems Problems 16 weeks gest (more content not included)... Normal [facility] CBC AND DIFFERENTIALon 08-06 % AUTOMATED IMMATURE GRAN 0.3 % Normal 0.0 - 0.9 [facility] Comment on above: Result Comment: Graciela ture Granulocyte Count (IG) includes promyelocytes, myelocytes and metamyelocytes but does not include bands. Percent differential counts (%) should be interpreted in the context of the absolute cell counts (cells/L). Performed By: #### C BCDF #### [address] [place] [address] Basophils (Bld) [#/Vol] 0.09 10*3/uL Normal 0.00 - 0.10 [facility] Comment on above: Performed By: #### C BCDF #### [address] [place] [address] Basophils/100 WBC (Bld) 0.9 % Normal 0.0 - 2.0 [facility] Comment on above: Performed By: #### C BCDF #### [address] [place] [address] Eosinophils (Bld) [#/Vol] 0.23 10*3/uL Normal 0.00 - 0.70 [facility] Comment on above: Performed By: #### C BCDF #### [address] [place] [address] Eosinophils/100 WBC (Bld) 2.4 % Normal 0.0 - 6.0 [facility] Comment on above: Performed By: #### C BCDF #### [address] [place] [address] Erythrocyte distribution width (RBC) [Ratio] 14.3 % Normal 11.5 - 14.5 [facility] Comment on above: Performed By: #### C BCDF #### [address] [place] [address] Hematocrit (Bld) [Volume fraction] 40.4 % Normal 36.0 - 46.0 [facility] Comment on above: Performed By: #### C BCDF #### [address] [place] [address] Hemoglobin (Bld) [Mass/Vol] 12.9 g/dL Normal 12.0 - 16.0 [facility] Comment on above: Performed By: #### C BCDF #### [address] [place] [address] Lymphocytes (Bld) [#/Vol] 2.44 10*3/uL Normal 1.20 - 4.80 [facility] Comment on above: Performed By: #### C BCDF #### [address] [place] [address] Lymphocytes/100 WBC (Bld) 25.7 % Normal 13.0 - 44.0 [facility] Comment on above: Performed By: #### C BCDF #### [address] [place] [address] MCHC (RBC) [Mass/Vol] 31.9 g/dL Low 32.0 - 36.0 [facility] Comment on above: Performed By: #### C BCDF #### [address] [place] [address] MCV (RBC) [Entitic vol] 88 fL Normal 80 - 100 [facility] Comment on above: Performed By: #### C BCDF #### [address] [place] [address] Monocytes (Bld) [#/Vol] 0.55 10*3/uL Normal 0.10 - 1.00 [facility] Comment on above: Performed By: #### C BCDF #### [address] [place] [address] Monocytes/100 WBC (Bld) 5.8 % Normal 2.0 - 10.0 [facility] Comment on above: Performed By: #### C BCDF #### [address] [place] [address] Neutrophils (Bld) [#/Vol] 6.15 10*3/uL Normal 1.20 - 7.70 [facility] Comment on above: Performed By: #### C BCDF #### [address] [place] [address] Neutrophils/100 WBC (Bld) 64.9 % Normal 40.0 - 80.0 [facility] Comment on above: Performed By: #### C BCDF #### [address] [place] [address] Platelets (Bld) [#/Vol] 410 10*3/uL Normal 150 - 450 [facility] Comment on above: Performed By: #### C BCDF #### [address] [place] [address] RBC (Bld) [#/Vol] 4.58 x10E12/L Normal 4.00 - 5.20 [facility] Comment on above: Performed By: #### C BCDF #### [address] [place] [address] WBC (Bld) [#/Vol] 9.5 10*3/uL Normal 4.4 - 11.3 [facility] Comment on above: Performed By: #### C BCDF #### [facility] [address] [place] [address] FORM TAMPER - Visiton 08-06-2020 FORM TAMPER - Visit Chief Complaint The patient is [...] with LMWH and has follow-up with her [employer] 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 Reports her asthma is stable. [...] or homicidal ideation Vitals Vital Signs Recorded: [id number] 01:08PM Heart Rate62 Wzrvmtkd184 Tvybwjqva46 Height5 ft 2 in Bsfvji696 lb BMI Vnewmyahoq60.28 BSA Calculated1.79 Tobacco Useb) No Fall Screeninga) [...] ongoing well-woman care with her current local Life Skills Consultant. She has Hematology follow-up today following our [...] Aug 06 2020 2:00PM EST (Author) [facility] + Diffe rentialon 06-27-2020 Basophils/100 WBC (Bld) 0.5 % 0.0 - 2.0 VO-BUIRS-Acffr [address] Work Phone: Eosinophils (Bld) [#/Vol] 0.24 {x10E9/L} See Below AR-JBPLG-Jqozs [address] Work Phone: Comment on above: Reference Range: 0.0 0 - 0.70 Eosinophils/100 WBC (Bld) 1.1 % 0.0 - 6.0 PK-QFRXS-Lcbdq [address] Work Phone: Erythrocyte distribution width (RBC) [Ratio] 15.0 % above high threshold See Below TI-ITSUP-Rmgok wn 2nd Fl Work Phone: Comment on above: Reference Range: 11. 5 - 14.5 Hematocrit (Bld) [Volume fraction] 30.0 % below low threshold See Below QG-IPGYL-Jzbfh wn 2nd Fl Work Phone: Comment on above: Reference Range: 36. 0 - 46.0 Hemoglobin (Bld) [Mass/Vol] 9.8 g/dL below low threshold See Below JR-WICKN-Kwkoh wn 2nd Fl Work Phone: Comment on above: Reference Range: 12. 0 - 16.0 Lymphocytes (Bld) [#/Vol] 2.25 {x10E9/L} See Below IP-FVVIK-Amowb wn 2nd Fl Work Phone: Comment on above: Reference Range: 1.2 0 - 4.80 Lymphocytes/100 WBC (Bld) 10.4 % See Below OM-NXUQV-Darde wn 2nd Fl Work Phone: Comment on above: Reference Range: 13. 0 - 44.0 MCHC (RBC) [Mass/Vol] 32.7 g/dL See Below EI-RIQOJ-Fyviz wn 2nd Fl Work Phone: Comment on above: Reference Range: 32. 0 - 36.0 MCV (RBC) [Entitic vol] 91 fL 80 - 100 FB-TZDYG-Iyxdq wn 2nd Fl Work Phone: Monocytes (Bld) [#/Vol] 0.84 {x10E9/L} See Below EB-JDGHI-Lbjch wn 2nd Fl Work Phone: Comment on above: Reference Range: 0.1 0 - 1.00 Monocytes/100 WBC (Bld) 3.9 % 2.0 - 10.0 VQ-OFLVX-Ivqbz wn 2nd Fl Work Phone: Neutrophils/100 WBC (Bld) 82.7 % See Below MP-PSGIA-Febaz wn 2nd Fl Work Phone: Comment on above: Reference Range: 40. 0 - 80.0 Platelets (Bld) [#/Vol] 225 {x10E9/L} 150 - 450 YZ-CACPO-Ouodc wn 2nd Fl Work Phone: RBC (Bld) [#/Vol] 3.31 {x10E12/L} below low threshold See Below GE-HDVDH-Qdtdw 2nd Fl Work Phone: Comment on above: Reference Range: 4.0 0 - 5.20 WBC (Bld) [#/Vol] 0.0 {/100_WBC} 0.0-0.0 MG- OBGYN-[facility] 2nd Fl Work Phone: WBC (Bld) [#/Vol] 21.6 {x10E9/L} above high threshold 4.4 - 11.3 MR-LGIKI-Igsqq wn 2nd Fl Work Phone: Complete Blood Count + Differential 0.11 {x10E9/L} above high threshold See Below SH-FZEVB-Kcnjf wn 2nd Fl Work Phone: Comment on above: Reference Range: 0.0 0 - 0.10 Complete Blood Count + Differential 1.4 % above high threshold 0.0 - 0.9 HF-DTIAA-Waibf wn 2nd Fl Work Phone: Comment on above: Immature Granulocyte Count (IG) includes promyelocytes, myelocytes and metamyelocytes but does not include bands. Percent differential counts (%) should be interpreted in the context of the absolute cell counts (cells/L). Complete Blood Count + Differential 17.85 {x10E9/L} above high threshold See Below GE-JHAVJ-[facility] Fl Work Phone: Comment on above: Reference Range: 1.2 0 - 7.70 Hematologyon 06-26-2020 Hematocrit (Bld) [Volume fraction] 30.5 % below low threshold See Below LV-CTGNT-Isxfc wn 2nd Fl Work Phone: Comment on above: Reference Range: 36. 0 - 46.0 Hemoglobin (Bld) [Mass/Vol] 10.7 g/dL below low threshold See Below WF-OTXFM-Keknw wn 2nd Fl Work Phone: Comment on above: Reference Range: 12. 0 - 16.0 MCV (RBC) [Entitic vol] 84 fL 80 - 100 PA-WFNRT-Qctwz wn 2nd Fl Work Phone: Platelets (Bld) [#/Vol] 258 {x10E9/L} 150 - 450 AD-EOEVN-Fzlxg wn 2nd Fl Work Phone: RBC (Bld) [#/Vol] 3.62 {x10E12/L} below low threshold See Below NF-HEBWW-Wblin wn 2nd Fl Work Phone: Comment on above: Reference Range: 4.0 0 - 5.20 WBC (Bld) [#/Vol] 0.0 {/100_WBC} 0.0-0.0 MG- OBGYN-Midto wn 2nd Fl Work Phone: WBC (Bld) [#/Vol] 35.7 {x10E9/L} above high threshold 4.4 - 11.3 NC-WSBEO-Aiocf wn 2nd Fl Work Phone: Otheron 06-26-2020 Erythrocyte distribution width (RBC) [Ratio] 14.6 % above high threshold See Below LZ-IJUQP-Oleus wn 2nd Fl Work Phone: Comment on above: Reference Range: 11. 5 - 14.5 MCHC (RBC) [Mass/Vol] 35.1 g/dL See Below YC-VASMS-Gwrpx wn 2nd Fl Work Phone: Comment on above: Reference Range: 32. 0 - 36.0 Name KIARA ASHLEY Eve Diane Pathologist: CELINE APONTEate of Procedure: 06/26/2020Date Received: [...] 3.5 cm, located 1.0 cm from themargin. Cardiac Sonographer sections are submitted in 5 cassettes.AXQ/LMPSummary of Cassettes:Specimen Label SiteA 1 umbilical cord sections 2 membrane rolls 3 placental parenchyma, umbilical cord insertion site 4 placental parenchyma 5 placental parenchyma, lesionaxq/06/26/2020 CU-FMZSC-Tlinh[address] Work Phone: Coronavirus 2019 RNA by PCR, Symptomaticon 06-25-2020 Coronavirus 2019 RNA by PCR, Symptomatic NOT DETECTED See Below SB-DVGXK-Ymsqe[address] Work Phone: Comment on above: SOURCE: [...] this test method. Fact sheet for providers: www.fda.gov/media/057035/downloadFact sheet for patients: www.fda.gov/media/542032/downloadThis test has received FDA Emergency Use Authorization (EUA) and has been verified by [facility] ([facility]). This test is only authorized for the duration of time that circumstances exist to justify the authorization of the emergency use of in vitro diagnostic tests for the detection of SARS-CoV-2 virus and/or diagnosis of COVID-19 infection under section 564(b)(1) of the Act, 21 U.S.C. 360bbb-3(b)(1), unless the authorization is terminated or revoked sooner. [facility] is certified under CLIA-88 as qualified to perform high complexity testing. Testing is performed in the [facility] laboratories located at [address] [place] [address]. Hematologyon 06-25-2020 ABO group Nom (Bld) A KO-BBYZP-Xcspx[address] Work Phone: Blood group antibody screen Ql Negative [address] Work Phone: Hematocrit (Bld) [Volume fraction] 34.7 % below low threshold See Below HI-MKPIU-Obrxd[address] Work Phone: Comment on above: Reference Range: 36. 0 - 46.0 Hemoglobin (Bld) [Mass/Vol] 11.6 g/dL below low threshold See Below QS-JZXHM-Llahr 2nd Fl Work Phone: Comment on above: Reference Range: 12. 0 - 16.0 MCV (RBC) [Entitic vol] 90 fL 80 - 100 AV-OEVEB-Yyonr 2nd Fl Work Phone: Platelets (Bld) [#/Vol] 268 {x10E9/L} 150 - 450 OU-FJLQE-Rsdov wn 2nd Fl Work Phone: RBC (Bld) [#/Vol] 3.85 {x10E12/L} below low threshold See Below XI-KIUEO-Vfail 2nd Fl Work Phone: Comment on above: Reference Range: 4.0 0 - 5.20 Rh immune globulin screen (Bld) [Interp] Positive DZ-YEDCI-Ywhet wn 2nd Fl Work Phone: WBC (Bld) [#/Vol] 0.0 {/100_WBC} 0.0-0.0 MG- OBGYN-[address] Work Phone: WBC (Bld) [#/Vol] 15.5 {x10E9/L} above high threshold 4.4 - 11.3 KM-ONYRF-Hxovm wn 2nd Fl Work Phone: Otheron 06-25-2020 Erythrocyte distribution width (RBC) [Ratio] 14.4 % See Below SR-OMOLV-Xdrwm wn 2nd Fl Work Phone: Comment on above: Reference Range: 11. 5 - 14.5 MCHC (RBC) [Mass/Vol] 33.4 g/dL See Below AE-ZONJF-Bdmpz [facility] Fl Work Phone: Comment on above: Reference Range: 32. 0 - 36.0 SYPHILIS SCREENING WITH REFL EXon 06-25-2020 T. pallidum IgG+IgM IA Ql (S) NONREACTIVE See Below DL-YKRPL-Wleko [facility] Fl Work Phone: Comment on above: SOURCE: Reference Ra nge: NONREACTIVENo significant level of Treponema pallidum antibody detected. Repeat testing in 2 to 4 weeks may be considered if early infection or incubating syphilis infection is suspected. Imm/Pathon 06-07-2020 Bacteria identified Aer cx Nom (Genital specimen) PATIENT: KIARA ASHLEY LOCATION: [facility] [place] BILL#: [id number] : 89 AGE: SEX: F ORDERED BY: PARAS GUEVARA: VAGINAL COLLECTED: 06/07/20 09:36ANTIBIOTICS AT [place].: RECEIVED : 06/08/20 07:27SITE: VAGINAL R E S U L T S GROUP B STREP SCREEN PRELIM 06/09/20 08:35 CULTURE IN PROGRESS. BY-GUSLG-WKD [address] [place] Work Phone: Bacteria identified Aer cx Nom (Genital specimen) PATIENT: KIARA ASHLEY [place] [facility] [place] [id number] : 89 AGE: SEX: F ORDERED BY: PARAS GUEVARA: VAGINAL COLLECTED: 06/07/20 09:36ANTIBIOTICS AT [place].: RECEIVED : 06/08/20 07:27SITE: VAGINAL R E S U L T S GROUP B STREP SCREEN FINAL 06/10/20 11:54 NEGATIVE FOR GROUP B BETA STREP. AC-LPWEG-Hfulh wn 2nd Fl Work Phone: Otheron 06-07-2020 [...] growth-No malformations were identified on a limited survey-[facility] 06/22 The patient is aware of [...] signed by: RILEY TREVIÑO 06/07/20 09:33 Normal FU-ALVKI-GDT [address] [place] Work Phone: Comment on above: ORDER REVISED TO A O B FOLLOW UP OR REPEAT SCAN BY RADIOLOGIST; Original Order Number: [id number] CBC AND DIFFERENTIALon 04-24 % AUTOMATED IMMATURE GRAN 1.9 % High 0.0 - 0.9 [facility] Comment on above: Result Comment: Graciela ture Granulocyte Count (IG) includes promyelocytes, myelocytes and metamyelocytes but does not include bands. Percent differential counts (%) should be interpreted in the context of the absolute cell counts (cells/L). Performed By: #### C BCDF #### [address] [place] [address] Basophils (Bld) [#/Vol] 0.08 10*3/uL Normal 0.00 - 0.10 [facility] Comment on above: Performed By: #### C BCDF #### [address] [place] [address] Basophils/100 WBC (Bld) 0.5 % Normal 0.0 - 2.0 [facility] Comment on above: Performed By: #### C BCDF #### [address] [place] [address] Eosinophils (Bld) [#/Vol] 0.22 10*3/uL Normal 0.00 - 0.70 [facility] Comment on above: Performed By: #### C BCDF #### [address] [place] [address] Eosinophils/100 WBC (Bld) 1.5 % Normal 0.0 - 6.0 [facility] Comment on above: Performed By: #### C BCDF #### [address] [place] [address] Erythrocyte distribution width (RBC) [Ratio] 14.0 % Normal 11.5 - 14.5 [facility] Comment on above: Performed By: #### C BCDF #### [address] [place] [address] Hematocrit (Bld) [Volume fraction] 35.6 % Low 36.0 - 46.0 [facility] Comment on above: Performed By: #### C BCDF #### [address] [place] [address] Hemoglobin (Bld) [Mass/Vol] 11.8 g/dL Low 12.0 - 16.0 [facility] Comment on above: Performed By: #### C BCDF #### [address] [place] [address] Lymphocytes (Bld) [#/Vol] 2.38 10*3/uL Normal 1.20 - 4.80 [facility] Comment on above: Performed By: #### C BCDF #### [address] [place] [address] Lymphocytes/100 WBC (Bld) 16.0 % Normal 13.0 - 44.0 [facility] Comment on above: Performed By: #### C BCDF #### [address] [place] [address] MCHC (RBC) [Mass/Vol] 33.1 g/dL Normal 32.0 - 36.0 [facility] Comment on above: Performed By: #### C BCDF #### [address] [place] [address] MCV (RBC) [Entitic vol] 92 fL Normal 80 - 100 [facility] Comment on above: Performed By: #### C BCDF #### [address] [place] [address] Monocytes (Bld) [#/Vol] 0.74 10*3/uL Normal 0.10 - 1.00 [facility] Comment on above: Performed By: #### C BCDF #### [address] [place] [address] Monocytes/100 WBC (Bld) 5.0 % Normal 2.0 - 10.0 [facility] Comment on above: Performed By: #### C BCDF #### [address] [place] [address] Neutrophils (Bld) [#/Vol] 11.17 10*3/uL High 1.20 - 7.70 [facility] Comment on above: Performed By: #### C BCDF #### [address] [place] [address] Neutrophils/100 WBC (Bld) 75.1 % Normal 40.0 - 80.0 [facility] Comment on above: Performed By: #### C BCDF #### [address] [place] [address] Platelets (Bld) [#/Vol] 285 10*3/uL Normal 150 - 450 [facility] Comment on above: Performed By: #### C BCDF #### [address] [place] [address] RBC (Bld) [#/Vol] 3.89 x10E12/L Low 4.00 - 5.20 [facility] Comment on above: Performed By: #### C BCDF #### [address] [place] [address] WBC (Bld) [#/Vol] 14.9 10*3/uL High 4.4 - 11.3 [facility] Comment on above: Performed By: #### C BCDF #### [address] [place] [address] COMPREHENSIVE PANELon 2019 ALP [Catalytic activity/Vol] 79 U/L Normal 33 - 110 [facility] Comment on above: Performed By: #### C MP #### [address] [place] [address] [place] [address] ALT [Catalytic activity/Vol] 7 U/L Normal 7 - 45 [facility] Comment on above: Result Comment: Melida ents treated with Sulfasalazine may generate falsely decreased results for ALT. Performed By: #### C MP #### [address] [place] [address] [place] [address] AST [Catalytic activity/Vol] 13 U/L Normal 9 - 39 [facility] Comment on above: Performed By: #### C MP #### [address] [place] [address] [place] [address] Bilirubin [Mass/Vol] 0.3 mg/dL Normal 0.0 - 1.2 [facility] Comment on above: Performed By: #### C MP #### [address] [place] [address] [place] [address] Protein [Mass/Vol] 5.9 g/dL Low 6.4 - 8.2 [facility] Comment on above: Performed By: #### C MP #### [address] [place] [address] [place] [address] Anion gap [Moles/Vol] 12 mmol/L Normal 10 - 20 [facility] Comment on above: Performed By: #### C MP #### [address] [place] [address] [place] [address] Chloride [Moles/Vol] 106 mmol/L Normal 98 - 107 [facility] Comment on above: Performed By: #### C MP #### [address] [place] [address] [place] [address] Potassium [Moles/Vol] 3.7 mmol/L Normal 3.5 - 5.3 [facility] Comment on above: Performed By: #### C MP #### [address] [place] [address] [place] [address] Sodium [Moles/Vol] 137 mmol/L Normal 136 - 145 [facility] Comment on above: Performed By: #### C MP #### [address] [place] [address] [place] [address] Calcium [Mass/Vol] 9.2 mg/dL Normal 8.6 - 10.3 [facility] Comment on above: Performed By: #### C MP #### [address] [place] [address] [place] [address] Glucose [Mass/Vol] 95 mg/dL Normal 74 - 99 [facility] Comment on above: Performed By: #### C MP #### [address] [place] [address] [place] [address] Urea nitrogen [Mass/Vol] 7 mg/dL Normal 6 - 23 [facility] Comment on above: Performed By: #### C MP #### [address] [place] [address] [place] [address] Albumin [Mass/Vol] 3.4 g/dL Normal 3.4 - 5.0 [facility] Comment on above: Performed By: #### C MP #### [address] [place] [address] [place] [address] Creatinine [Mass/Vol] 0.70 mg/dL Normal 0.50 - 1.05 [facility] Comment on above: Performed By: #### C MP #### [address] [place] [address] [place] [address] GFR- AM. >60 Normal >60 [facility] Comment on above: Result Comment: CALC ULATIONS OF ESTIMATED GFR ARE PERFORMED USING THE MDRD STUDY EQUATION FOR THE IDMS-TRACEABLE CREATININE METHODS. CLIN CHEM 2007;53:766-72 Performed By: #### C MP #### [address] [place] [address] [place] [address] GFR-NON AM. >60 Normal >60 [facility] Comment on above: Performed By: #### C MP #### [address] [place] [address] [place] [address] HCO3 (Bld) [Moles/Vol] 23 mmol/L Normal 21 - 32 [facility] Comment on above: Performed By: #### C MP #### [address] [place] [address] [place] [address] FERRITINon 04-24-2020 Ferritin [Mass/Vol] 8 ug/L Normal 8 - 150 [facility] Comment on above: Performed By: #### F ERRI #### [address] [place] [address] IRON + TIBCon 04-24-2020 % SATURATION 14 % Low 25 - 45 [facility] Comment on above: Performed By: #### I RONT #### [address] [place] [address] Iron [Mass/Vol] 65 ug/dL Normal 35 - 150 [facility] Comment on above: Performed By: #### I RONT #### [address] [place] [address] TIBC 449 ug/dL High 240 - 445 [facility] Comment on above: Performed By: #### I RONT #### [address] [place] [address] Complete Blood Count + Brionna tran 12-25-2019 Basophils/100 WBC (Bld) 1.0 % 0.0 - 2.0 AL-IYFJK-BKE [address] [place] Work Phone: Eosinophils (Bld) [#/Vol] 0.37 {x10E9/L} See Below KD-ZJFLV-KRQ [address] [place] Work Phone: Comment on above: Reference Range: 0.0 0 - 0.70 Eosinophils/100 WBC (Bld) 3.0 % 0.0 - 6.0 YC-XIYVY-QZH [address] [place] Work Phone: Erythrocyte distribution width (RBC) [Ratio] 13.4 % See Below YP-FHNCM-ECQ [address] [place] Work Phone: Comment on above: Reference Range: 11. 5 - 14.5 Hematocrit (Bld) [Volume fraction] 41.8 % See Below VO-WTBCM-SYV [address] [place] Work Phone: Comment on above: Reference Range: 36. 0 - 46.0 Hemoglobin (Bld) [Mass/Vol] 13.6 g/dL See Below EC-JUNUY-CYS [address] [place] Work Phone: Comment on above: Reference Range: 12. 0 - 16.0 Lymphocytes (Bld) [#/Vol] 2.52 {x10E9/L} See Below SF-AWRHL-YVL [address] [place] Work Phone: Comment on above: Reference Range: 1.2 0 - 4.80 Lymphocytes/100 WBC (Bld) 20.2 % See Below TH-PPADN-REY [address] [place] Work Phone: Comment on above: Reference Range: 13. 0 - 44.0 MCHC (RBC) [Mass/Vol] 32.5 g/dL See Below TQ-LDCWU-JRC [address] [place] Work Phone: Comment on above: Reference Range: 32. 0 - 36.0 MCV (RBC) [Entitic vol] 95 fL 80 - 100 OE-VMJPT-XQD [address] [place] Work Phone: Monocytes (Bld) [#/Vol] 0.58 {x10E9/L} See Below PN-IHKPI-PLP [address] [place] Work Phone: Comment on above: Reference Range: 0.1 0 - 1.00 Monocytes/100 WBC (Bld) 4.6 % 2.0 - 10.0 HQ-LQKGO-YXE [address] [place] Work Phone: Neutrophils/100 WBC (Bld) 70.6 % See Below CI-PMHZB-HWN [address] [place] Work Phone: Comment on above: Reference Range: 40. 0 - 80.0 Platelets (Bld) [#/Vol] 372 {x10E9/L} 150 - 450 RR-GPFKA-UYU [address] Work Phone: RBC (Bld) [#/Vol] 4.40 {x10E12/L} See Below MG -OBGYN-MAC [address] [place] Work Phone: Comment on above: Reference Range: 4.0 0 - 5.20 WBC (Bld) [#/Vol] 0.0 {/100_WBC} 0.0-0.0 MG- OBGYN-MAC [address] [place] Work Phone: WBC (Bld) [#/Vol] 12.7 {x10E9/L} above high threshold 4.4 - 11.3 NI-HQHNP-HPV [address] [place] Work Phone: Comment on above: SOURCE: Complete Blood Count + Differential 8.81 {x10E9/L} above high threshold See Below MR-FFNVI-EYD [address] [place] Work Phone: Comment on above: Reference Range: 1.2 0 - 7.70 Complete Blood Count + Differential 0.6 % 0.0 - 0.9 FB-UFYDJ-TQJ [address] [place] Work Phone: Comment on above: Percent differential counts (%) should be interpreted in the context of the absolute cell counts (cells/L). Complete Blood Count + Differential 0.13 {x10E9/L} above high threshold See Below ZE-YHZNC-QOW [address] [place] Work Phone: Comment on above: Reference Range: 0.0 0 - 0.10 Cult, Urineon 12-25-2019 Bacteria identified Cx Nom (U) PATIENT: KIARA ASHLEY [place] [facility] [place] [id number] : 89 AGE: SEX: F ORDERED BY: PARAS GUEVARA: URINE COLLECTED: 12/25/19 09:41ANTIBIOTICS AT [place].: RECEIVED : 12/25/19 17:06SITE: Clean Catch/Voided R E S U L T S URINE CULTURE,BACTERIAL FINAL 12/26/19 10:21 NO SIGNIFICANT GROWTH. FT-FZQPA-ZIM [address] [place] Work Phone: Hematologyon 12-25-2019 ABO group Nom (Bld) A CL-IHTWI-GCE [address] [place] Work Phone: Blood group antibody screen Ql Negative VG-SHMTJ-RXS [address] [place] Work Phone: Rh immune globulin screen (Bld) [Interp] Positive BO-DLYRU-EZU [address] [place] Work Phone: Hepatitis B Surface Antigeno n 12-25-2019 Hepatitis B Surface Antigen NONREACTIVE See Below NB-LEJZB-KFI [address] [place] Work Phone: Comment on above: [...] Hepatitis C Antibody Test NON-REACTIVE See Below MA-YFVPQ-ZDR [address] [place] Work Phone: Comment on above: SOURCE: Reference Ra nge: NONREACTIVE Patients receiving more than 5 mg/day of biotin may have interference in test results. A sample should be taken no sooner than eight hours after previous dose. Contact the testing laboratory for additional information. Metabolic Panelon 12-25-2019 ALP [Catalytic activity/Vol] 67 U/L 33 - 110 QG-SCAPS-QYC [address] [place] Work Phone: Anion gap [Moles/Vol] 15 mmol/L 10 - 20 ZS-HOHTJ-AVQ [address] [place] Work Phone: Bilirubin [Mass/Vol] 0.3 mg/dL 0.0 - 1.2 GV-FKUWK-CCR [address] [place] Work Phone: Calcium [Mass/Vol] 9.6 mg/dL 8.6 - 10.6 ZU-YFHUN-OGI [address] [place] Work Phone: Chloride [Moles/Vol] 104 mmol/L 98 - 107 QQ-GQUAP-ULI [address] [place] Work Phone: CO2 [Moles/Vol] 21 mmol/L 21 - 32 MG-OBGYN- MAC [address] [place] Work Phone: Creatinine [Mass/Vol] 0.69 mg/dL See Below EO-ZIQJS-CMC [address] [place] Work Phone: Comment on above: Reference Range: 0.5 0 - 1.05 Glucose [Mass/Vol] 83 mg/dL 74 - 99 KI-TDOSU-CVX [address] [place] Work Phone: Comment on above: SOURCE: Potassium [Moles/Vol] 4.1 mmol/L 3.5 - 5.3 IS-WYUWC-AGV [address] [place] Work Phone: Protein [Mass/Vol] 6.2 g/dL below low threshold 6.4 - 8.2 MC-VFMUP-XTT [address] [place] Work Phone: Sodium [Moles/Vol] 136 mmol/L 136 - 145 SW-ULXNM-DBH [address] [place] Work Phone: Urea nitrogen [Mass/Vol] 9 mg/dL 6 - 23 HY-KLXCX-YLK [address] [place] Work Phone: Otheron 12-25-2019 Albumin BCP dye [Mass/Vol] 3.9 g/dL 3.4 - 5.0 LD-XEHKH-ZVK [address] [place] Work Phone: ALT With P-5'-P [Catalytic activity/Vol] 8 U/L 7 - 45 GW-GKWTU-MSN [address] [place] Work Phone: Comment on above: Patients treated wit h Sulfasalazine may generate falsely decreased results for ALT. AST With P-5'-P [Catalytic activity/Vol] 11 U/L 9 - 39 VV-MNBDB-WPL [address] [place] Work Phone: NONE CX-ZTGQA-CWU [address] [place] Work Phone: >60 >60 ES-XJXSO-XHC [address] [place] Work Phone: Comment on above: CALCULATIONS OF MARÍA MATED GFR ARE PERFORMED USING THE MDRD STUDY EQUATION FOR THE IDMS-TRACEABLE CREATININE METHODS. CLIN CHEM 2007;53:766-72 SYPHILIS SCREENING WITH REFL EXon 12-25-2019 T. pallidum IgG+IgM IA Ql (S) NONREACTIVE See Below OO-NPPPJ-AUK [address] [place] Work Phone: Comment on above: SOURCE: Reference Ra nge: NONREACTIVENo significant level of Treponema pallidum antibody detected. Repeat testing in 2 to 4 weeks may be considered if early infection or incubating syphilis infection is suspected. CBC AND DIFFERENTIALon 11-21 % AUTOMATED IMMATURE GRAN 0.9 % Normal 0.0 - 0.9 [facility] Comment on above: Result Comment: Perc ent differential counts (%) should be interpreted in the context of the absolute cell counts (cells/L). Performed By: #### C BCDF #### [address] [place] [address] Basophils (Bld) [#/Vol] 0.16 10*3/uL High 0.00 - 0.10 [facility] Comment on above: Performed By: #### C BCDF #### [address] [place] [address] Basophils/100 WBC (Bld) 1.2 % Normal 0.0 - 2.0 [facility] Comment on above: Performed By: #### C BCDF #### [address] [place] [address] Eosinophils (Bld) [#/Vol] 0.80 10*3/uL High 0.00 - 0.70 [facility] Comment on above: Performed By: #### C BCDF #### [address] [place] [address] Eosinophils/100 WBC (Bld) 5.8 % Normal 0.0 - 6.0 [facility] Comment on above: Performed By: #### C BCDF #### [address] [place] [address] Erythrocyte distribution width (RBC) [Ratio] 13.6 % Normal 11.5 - 14.5 [facility] Comment on above: Performed By: #### C BCDF #### [address] [place] [address] Hematocrit (Bld) [Volume fraction] 39.4 % Normal 36.0 - 46.0 [facility] Comment on above: Performed By: #### C BCDF #### [address] [place] [address] Hemoglobin (Bld) [Mass/Vol] 13.0 g/dL Normal 12.0 - 16.0 [facility] Comment on above: Performed By: #### C BCDF #### [address] [place] [address] Lymphocytes (Bld) [#/Vol] 2.24 10*3/uL Normal 1.20 - 4.80 [facility] Comment on above: Performed By: #### C BCDF #### [address] [place] [address] Lymphocytes/100 WBC (Bld) 16.3 % Normal 13.0 - 44.0 [facility] Comment on above: Performed By: #### C BCDF #### [address] [place] [address] MCHC (RBC) [Mass/Vol] 33.0 g/dL Normal 32.0 - 36.0 [facility] Comment on above: Performed By: #### C BCDF #### [address] [place] [address] MCV (RBC) [Entitic vol] 94 fL Normal 80 - 100 [facility] Comment on above: Performed By: #### C BCDF #### [address] [place] [address] Monocytes (Bld) [#/Vol] 0.83 10*3/uL Normal 0.10 - 1.00 [facility] Comment on above: Performed By: #### C BCDF #### [address] [place] [address] Monocytes/100 WBC (Bld) 6.0 % Normal 2.0 - 10.0 [facility] Comment on above: Performed By: #### C BCDF #### [address] [place] [address] Neutrophils (Bld) [#/Vol] 9.60 10*3/uL High 1.20 - 7.70 [facility] Comment on above: Performed By: #### C BCDF #### [address] [place] [address] Neutrophils/100 WBC (Bld) 69.8 % Normal 40.0 - 80.0 [facility] Comment on above: Performed By: #### C BCDF #### [address] [place] [address] Platelets (Bld) [#/Vol] 380 10*3/uL Normal 150 - 450 [facility] Comment on above: Performed By: #### C BCDF #### [address] [place] [address] RBC (Bld) [#/Vol] 4.21 x10E12/L Normal 4.00 - 5.20 [facility] Comment on above: Performed By: #### C BCDF #### [address] [place] [address] WBC (Bld) [#/Vol] 13.8 10*3/uL High 4.4 - 11.3 [facility] Comment on above: Performed By: #### C BCDF #### [address] [place] [address] Complete Blood Count + Diffe rentialon 11-14-2019 Basophils (Bld) [#/Vol] 0.05 {x10E9/L} See Below MP-Reproductiv e [facility] Work Phone: Comment on above: Reference Range: 0.0 0 - 0.10 Basophils/100 WBC (Bld) 0.4 % 0.0 - 2.0 -[facility] Work Phone: Eosinophils (Bld) [#/Vol] 0.89 {x10E9/L} above high threshold See Below MP-Reproductiv e Endocrinology- [place] Work Phone: Comment on above: Reference Range: 0.0 0 - 0.70 Eosinophils/100 WBC (Bld) 7.3 % 0.0 - 6.0 MP-Reproductiv e Endocrinology- [place] Work Phone: Erythrocyte distribution width (RBC) [Ratio] 13.9 % See Below MP-Reproductiv e Endocrinology- [place] Work Phone: Comment on above: Reference Range: 11. 5 - 14.5 Hematocrit (Bld) [Volume fraction] 39.4 % See Below MP-Reproductiv e Endocrinology- [place] Work Phone: Comment on above: Reference Range: 36. 0 - 46.0 Hemoglobin (Bld) [Mass/Vol] 12.8 g/dL See Below MP-Reproductiv e Endocrinology- [place] Work Phone: Comment on above: Reference Range: 12. 0 - 16.0 Lymphocytes (Bld) [#/Vol] 2.13 {x10E9/L} See Below MP-Reproductiv e Endocrinology- [place] Work Phone: Comment on above: Reference Range: 1.2 0 - 4.80 Lymphocytes/100 WBC (Bld) 17.5 % See Below MP-Reproductiv e Endocrinology- [place] Work Phone: Comment on above: Reference Range: 13. 0 - 44.0 MCHC (RBC) [Mass/Vol] 32.5 g/dL See Below MP-Reproductiv e Endocrinology- [place] Work Phone: Comment on above: Reference Range: 32. 0 - 36.0 MCV (RBC) [Entitic vol] 95 fL 80 - 100 MP-Reproductiv e Endocrinology- [place] Work Phone: Monocytes (Bld) [#/Vol] 0.60 {x10E9/L} See Below MP-Reproductiv e Endocrinology- [place] Work Phone: Comment on above: Reference Range: 0.1 0 - 1.00 Monocytes/100 WBC (Bld) 4.9 % 2.0 - 10.0 MP-Reproductiv e Endocrinology- [place] Work Phone: Neutrophils/100 WBC (Bld) 69.4 % See Below MP-Reproductiv e Endocrinology- [place] Work Phone: Comment on above: Reference Range: 40. 0 - 80.0 Platelets (Bld) [#/Vol] 423 {x10E9/L} 150 - 450 MP-Reproductiv e Endocrinology- [place] Work Phone: RBC (Bld) [#/Vol] 4.15 {x10E12/L} See Below MP -Reproductiv e Endocrinology- [place] Work Phone: Comment on above: Reference Range: 4.0 0 - 5.20 WBC (Bld) [#/Vol] 12.2 {x10E9/L} above high threshold 4.4 - 11.3 MP-Reproductiv e Endocrinology- [place] Work Phone: WBC (Bld) [#/Vol] 0.0 {/100_WBC} 0.0-0.0 MP- Reproductiv e Endocrinology- [place] Work Phone: Complete Blood Count + Differential 0.5 % 0.0 - 0.9 MP-Reproductiv e End[facility] [place] Work Phone: Comment on above: Percent differential counts (%) should be interpreted in the context of the absolute cell counts (cells/L). Complete Blood Count + Differential 8.42 {x10E9/L} above high threshold See Below [facility]- [place] Work Phone: Comment on above: Reference Range: 1.2 0 - 7.70 Metabolic Panelon 11-14-2019 ALP [Catalytic activity/Vol] 82 U/L 33 - 110 [facility] [place] Work Phone: Anion gap [Moles/Vol] 19 mmol/L 10 - 20 [facility]- [place] Work Phone: Bilirubin [Mass/Vol] 0.4 mg/dL 0.0 - 1.2 [facility]- [place] Work Phone: Calcium [Mass/Vol] 9.5 mg/dL 8.6 - 10.6 [facility]- [place] Work Phone: Chloride [Moles/Vol] 100 mmol/L 98 - 107 [facility]- [place] Work Phone: CO2 [Moles/Vol] 20 mmol/L below low threshold 21 - 32 [facility]- [place] Work Phone: Creatinine [Mass/Vol] 0.80 mg/dL See Below MP-Reproductiv e [facility]ocr[facility]- [place] Work Phone: Comment on above: Reference Range: 0.5 0 - 1.05 Glucose [Mass/Vol] 86 mg/dL 74 - 99 MP-Reproductiv e Endocrin[facility]- [place] Work Phone: Potassium [Moles/Vol] 4.3 mmol/L 3.5 - 5.3 MP-Reproductiv e Endocrin[facility]- [place] Work Phone: Protein [Mass/Vol] 5.8 g/dL below low threshold 6.4 - 8.2 MP-Reproductiv e Endocrin[facility]- [place] Work Phone: Sodium [Moles/Vol] 135 mmol/L below low threshold 136 - 145 MP-Reproductiv e Endocrin[facility]- [place] Work Phone: Urea nitrogen [Mass/Vol] 10 mg/dL 6 - 23 MP-Reproductiv e Endocrinology- [place] Work Phone: Otheron 11-14-2019 Albumin BCP dye [Mass/Vol] 3.5 g/dL 3.4 - 5.0 MP-Reproductiv e [facility] Work Phone: ALT With P-5'-P [Catalytic activity/Vol] 17 U/L 7 - 45 MP-Rep[address] e [facility] [place] Work Phone: Comment on above: Patients treated wit h Sulfasalazine may generate falsely decreased results for ALT. AST With P-5'-P [Catalytic activity/Vol] 22 U/L 9 - 39 MP-[address] [facility] [place] Work Phone: >60 >60 MP-Reproductiv e [facility] Work Phone: Comment on above: CALCULATIONS OF MARÍA MATED GFR ARE PERFORMED USING THE MDRD STUDY EQUATION FOR THE IDMS-TRACEABLE CREATININE METHODS. CLIN CHEM 2007;53:766-72 CBCon 11-09-2019 Erythrocyte distribution width (RBC) [Ratio] 13.7 % See Below HP-XOORW-Jhnkc n 310 IVF Work Phone: Comment on above: Performed By: #### L H #### [facility][NOTE 3] [address] [place] [address] Reference Range: 11. 5 - 14.5 Hematocrit (Bld) [Volume fraction] 41.9 % See Below LG-AKOKR-Kemei n 310 IVF Work Phone: Comment on above: Performed By: #### L H #### [facility] [address] [place] [address] Reference Range: 36. 0 - 46.0 Hemoglobin (Bld) [Mass/Vol] 14.0 g/dL See Below FK-FVUGC-Afnsr n 310 IVF Work Phone: Comment on above: Performed By: #### L H #### [facility] [address] [place] [address] Reference Range: 12. 0 - 16.0 MCHC (RBC) [Mass/Vol] 33.4 g/dL See Below ZZ-LHLVY-Drvok n 310 IVF Work Phone: Comment on above: Performed By: #### L H #### [facility] [address] [place] [address] Reference Range: 32. 0 - 36.0 MCV (RBC) [Entitic vol] 94 fL 80 - 100 OC-ETXMU-Bdlhr n 310 IVF Work Phone: Comment on above: Performed By: #### L H #### [facility] [address] [place] [id number] Platelets (Bld) [#/Vol] 411 10*3/uL Normal 150 - [address] [facility] Comment on above: Performed By: #### L H #### [facility] [address] [place] [id number] RBC (Bld) [#/Vol] 4.44 x10E12/L Normal 4.00 - 5.[address] [facility] Comment on above: Performed By: #### L H #### [facility] [address] [place] [id number] WBC (Bld) [#/Vol] 12.4 10*3/uL High 4.4 - 11.3 [facility] Comment on above: Performed By: #### L H #### [facility] [address] [place] [id number] COMPREHENSIVE PANELon 2018 Albumin [Mass/Vol] 3.8 g/dL Normal 3.4 - 5.[address] [facility] Comment on above: Performed By: #### L H #### [facility] [address] [place] [id number] ALP [Catalytic activity/Vol] 51 U/L 33 - 110 JI-SXCJB-Dwsnf n 310 IVF Work Phone: Comment on above: Performed By: #### L H #### [facility] [address] [place] [id number] ALT [Catalytic activity/Vol] 12 U/L Normal 7 - [address] [facility] Comment on above: Result Comment: Melida ents treated with Sulfasalazine may generate falsely decreased results for ALT. Performed By: #### L H #### [facility] [address] [place] [address] Anion gap [Moles/Vol] 13 mmol/L 10 - 20 BF-RXIHL-Ajpcw n 310 IVF Work Phone: Comment on above: Performed By: #### L H #### [facility][NOTE 3] [address] [place] [address] AST [Catalytic activity/Vol] 12 U/L Normal 9 - [address] [facility] Comment on above: Performed By: #### L H #### [facility] [address] [place] [id number] Bilirubin [Mass/Vol] 0.4 mg/dL 0.0 - 1.2 WH-ALSRD-Nvjvk n 310 IVF Work Phone: Comment on above: Performed By: #### L H #### [facility] [address] [place] [id number] Calcium [Mass/Vol] 9.3 mg/dL 8.6 - 10.3 XD-APGZR-Qtjhb n 310 IVF Work Phone: Comment on above: Performed By: #### L H #### [facility][NOTE 3] [address] [place] [id number] Chloride [Moles/Vol] 102 mmol/L 98 - 107 PM-PQBOX-Xlrfj n 310 IVF Work Phone: Comment on above: Performed By: #### L H #### [facility][NOTE 3] [address] [place] [id number] Creatinine [Mass/Vol] 0.89 mg/dL See Below ZN-TAJLK-Vmvyz n 310 IVF Work Phone: Comment on above: Performed By: #### L H #### [facility]NOTE 3] [address] [place] [id number] Reference Range: 0.5 0 - 1.05 GFR- AM. >60 Normal >[address] [facility] Comment on above: Result Comment: CALC ULATIONS OF ESTIMATED GFR ARE PERFORMED USING THE MDRD STUDY EQUATION FOR THE IDMS-TRACEABLE CREATININE METHODS. CLIN CHEM 2007;53:766-72 Performed By: #### L H #### [facility][NOTE 3] [address] [place] [id number] GFR-NON AM. >60 Normal >[address] [facility] Comment on above: Performed By: #### L H #### [facility]NOTE 3] [address] [place] [id number] Glucose [Mass/Vol] 74 mg/dL 74 - 99 RH-CDANQ-Jqiux n 310 IVF Work Phone: Comment on above: Performed By: #### L H #### [facility]NOTE 3] [address] [place] [id number] HCO3 (Bld) [Moles/Vol] 25 mmol/L Normal 21 - [address] [facility] Comment on above: Performed By: #### L H #### [facility]NOTE 3] [address] [place] [id number] Potassium [Moles/Vol] 4.1 mmol/L 3.5 - 5.3 LP-GMQWJ-Lfqhe n 310 IVF Work Phone: Comment on above: Performed By: #### L H #### [facility]NOTE 3] [address] [place] [id number] Protein [Mass/Vol] 6.0 g/dL below low threshold 6.4 - 8.2 QF-ETHGF-Kxzao n 310 IVF Work Phone: Comment on above: Performed By: #### L H #### [facility] [address] [place] [id number] Sodium [Moles/Vol] 136 mmol/L 136 - 145 OV-SOBTV-Urcho n 310 IVF Work Phone: Comment on above: Performed By: #### L H #### [facility] [address] [place] [address] Urea nitrogen [Mass/Vol] 11 mg/dL 6 - 23 CT-TFBMO-Opeix n 310 IVF Work Phone: Comment on above: Performed By: #### L H #### [facility] [address] [place] [id number] HCG, Beta Quantitativeon HCG.beta subunit Qn 7102 {mIU/mL} Abnormal SQ-ZBIAF-Djqte n 310 IVF Work Phone: Comment on [...] performed using a different test methodology at [facility] than other [facility]. Direct result comparison should only be made within the same method. REF VALUESNON FEMALE <5MALES <5 HCG,BETA-QUANTITATIVEon 12-2 HCG,BETA-QUANTITA TIVE 7102 mIU/mL [facility] Comment on above: Result Comment: Low- level [...] HCG measurement is performed using the [employer] [place] Access Immunoassay which detects intact HCG and free beta HCG subunit. This test is not indicated for use as a tumor marker. HCG testing is performed using a different test methodology at [facility] than other [facility]. Direct result comparison should only be made within the same method. REF VALUES NON FEMALE <5 MALES <5 Performed By: #### L H #### [facility]NOTE 3] [address] [place] [id number] Hematologyon 11-09-2019 Platelets (Bld) [#/Vol] 411 {x10E9/L} 150 - 450 TX-RRZZQ-Twalc n 310 IVF Work Phone: RBC (Bld) [#/Vol] 4.44 {x10E12/L} See Below MG -OBGYN-Risma n 310 IVF Work Phone: Comment on above: Reference Range: 4.0 0 - 5.20 WBC (Bld) [#/Vol] 12.4 {x10E9/L} above high threshold 4.4 - 11.3 SS-COKDF-Ukwav n 310 IVF Work Phone: Metabolic Panelon 11-09-2019 CO2 [Moles/Vol] 25 mmol/L 21 - 32 MG-OBGYN- Risma n 310 IVF Work Phone: Otheron 11-09-2019 Albumin BCP dye [Mass/Vol] 3.8 g/dL 3.4 - 5.0 ER-UJRWX-Bdfep n 310 IVF Work Phone: ALT With P-5'-P [Catalytic activity/Vol] 12 U/L 7 - 45 KO-ITLWO-Emkbx n 310 IVF Work Phone: Comment on above: Patients treated wit h Sulfasalazine may generate falsely decreased results for ALT. AST With P-5'-P [Catalytic activity/Vol] 12 U/L 9 - 39 ZR-BNGNS-Avwim n 310 IVF Work Phone: >60 >60 VL-CYOXK-Xutzs n 310 IVF Work Phone: Comment on [...] HCG measurement is performed using the [employer] Access Immunoassay which detects intact HCG and free beta HCG subunit. This test is not indicated for use as a tumor marker. HCG testing is performed using a different test methodology at [facility] than other [facility]. Direct result comparison should only be made within the same method. REF VALUESNON FEMALE <5MALES <5 HCG,BETA-QUANTITATIVEon 10-15 HCG,BETA-QUANTITA TIVE 240 mIU/mL [facility] Comment on above: Result Comment: Low- level [...] performed using a different test methodology at [facility] than other [facility]. Direct result comparison should only be made within the same method. REF VALUES NON FEMALE <5 MALES <5 Performed By: #### E STRA #### [facility] [address] [place] [address] ESTRADIOLon 10-14-2019 ESTRADIOL 1871 pg/mL Normal [facility] Comment on above: Result Comment: Estr adiol measurement is performed using the [employer] [place] Access Immunoassay. Estradiol testing is performed using a different test methodology at [facility] than other [facility]. Direct result comparison should only be made within the same method. REF VALUES FOLLICULAR PHASE 20-144 MID CYCLE 64-357 LUTEAL PHASE 56-214 POSTMENOPAUSE < 32 PREPUBERTY < 20 MALE 10-18Y < 20 ADULT MALE < 40 Performed By: #### E STRA #### [facility]NOTE 3] [address] [place] [address] Estradiol, Serumon 9 E2 [Mass/Vol] 1871 pg/mL MG-OBGYN-Ri sma n 310 IVF Work Phone: Comment on above: Estradiol measuremen t is performed using the [employer] [place] Access Immunoassay. Estradiol testing is performed using a different test methodology at [facility] than other [facility]. Direct result comparison should only be made within the same method.REF VALUESFOLLICULAR PHASE 20-144MID CYCLE 64-357LUTEAL PHASE 56-214POSTMENOPAUSE < 32PREPUBERTY < 20MALE 10-18Y < 20ADULT MALE < 40 PROGESTERONEon 10-14-2019 PROGESTERONE 1.0 ng/mL Normal [facility] Comment on above: Result Comment: Prog esterone is performed using the [employer] [place] Access Immunoassay. Progesterone testing is performed using a different test methodology at [facility] than other [facility]. Direct result comparison should only be made within the same method. REF VALUES MALE <0.2-0.8 FOLLICULAR PHASE <0.2-1.5 LUTEAL PHASE 7.4-15.4 POSTMENOPAUSAL <0.2-0.2 1ST TRIMESTER 12.0-84.0 2ND TRIMESTER 10.2-58.8 3RD TRIMESTER 46.5-160 Performed By: #### E STRA #### [facility] [address] [place] [address] Progesterone, Serumon 2018 Progesterone [Mass/Vol] 1.0 ng/mL XR-JOLOE-Swdpc n 310 IVF Work Phone: Comment on above: Progesterone is perf ormed using the [employer] Access Immunoassay. Progesterone testing is performed using a different test methodology at [facility] than other [facility]. Direct result comparison should only be made within the same method.REF VALUESMALE <0.2-0.8 FOLLICULAR PHASE <0.2-1.5 LUTEAL PHASE 7.4-15.4 POSTMENOPAUSAL <0.2-0.2 1ST TRIMESTER 12.0-84.0 2ND TRIMESTER 10.2-58.8 3RD TRIMESTER 46.5-160 ESTRADIOLon 10-11-2019 ESTRADIOL 284 pg/mL Normal [facility] Comment on above: Result Comment: Estr adiol measurement is performed using the [employer] Access Immunoassay. Estradiol testing is performed using a different test methodology at [facility] than other [facility]. Direct result comparison should only be made within the same method. REF VALUES FOLLICULAR PHASE 20-144 MID CYCLE 64-357 LUTEAL PHASE 56-214 POSTMENOPAUSE < 32 PREPUBERTY < 20 MALE 10-18Y < 20 ADULT MALE < 40 Performed By: #### E STRA #### [facility] [address] [place] [address] Estradiol, Serumon 9 E2 [Mass/Vol] 284 pg/mL MG-OBGYN-Ri sma n 310 IVF Work Phone: Comment on above: Estradiol measuremen t is performed using the [employer] Access Immunoassay. Estradiol testing is performed using a different test methodology at [facility] than other [facility]. Direct result comparison should only be made within the same method.REF VALUESFOLLICULAR PHASE 20-144MID CYCLE 64-357LUTEAL PHASE 56-214POSTMENOPAUSE < 32PREPUBERTY < 20MALE 10-18Y < 20ADULT MALE < 40 ESTRADIOLon 10-05-2019 ESTRADIOL 129 pg/mL Normal [facility] Comment on above: Result Comment: Estr adiol measurement is performed using the [employer] Access Immunoassay. Estradiol testing is performed using a different test methodology at [facility] than other [facility]. Direct result comparison should only be made within the same method. REF VALUES FOLLICULAR PHASE 20-144 MID CYCLE 64-357 LUTEAL PHASE 56-214 POSTMENOPAUSE < 32 PREPUBERTY < 20 MALE 10-18Y < 20 ADULT MALE < 40 Performed By: #### E STRA #### [facility]NOTE 3] [address] [place] [address] Estradiol, Serumon 9 E2 [Mass/Vol] 129 pg/mL MG-OBGYN-Ri sma n 310 IVF Work Phone: Comment on above: Estradiol measuremen t is performed using the [employer] Access Immunoassay. Estradiol testing is performed using a different test methodology at [facility] than other [facility]. Direct result comparison should only be made within the same method.REF VALUESFOLLICULAR PHASE 20-144MID CYCLE 64-357LUTEAL PHASE 56-214POSTMENOPAUSE < 32PREPUBERTY < 20MALE 10-18Y < 20ADULT MALE < 40 PROGESTERONEon 10-05-2019 PROGESTERONE 0.2 ng/mL Normal [facility] Comment on above: Result Comment: Prog esterone is performed using the [employer] Access Immunoassay. Progesterone testing is performed using a different test methodology at [facility] than other [facility]. Direct result comparison should only be made within the same method. REF VALUES MALE <0.2-0.8 FOLLICULAR PHASE <0.2-1.5 LUTEAL PHASE 7.4-15.4 POSTMENOPAUSAL <0.2-0.2 1ST TRIMESTER 12.0-84.0 2ND TRIMESTER 10.2-58.8 3RD TRIMESTER 46.5-160 Performed By: #### E STRA #### [facility]NOTE 3] [address] [place] [address] Progesterone, Serumon 2018 Progesterone [Mass/Vol] 0.2 ng/mL BQ-RUJBR-Jimen n 310 IVF Work Phone: Comment on above: Progesterone is perf ormed using the [employer] Access Immunoassay. Progesterone testing is performed using a different test methodology at [facility] than other [facility]. Direct result comparison should only be made within the same method.REF VALUESMALE <0.2-0.8 FOLLICULAR PHASE <0.2-1.5 LUTEAL PHASE 7.4-15.4 POSTMENOPAUSAL <0.2-0.2 1ST TRIMESTER 12.0-84.0 2ND TRIMESTER 10.2-58.8 3RD TRIMESTER 46.5-160 ESTRADIOLon 1118-2019 ESTRADIOL 357 pg/mL Normal [facility] Comment on above: Result Comment: Estr adiol measurement is performed using the [employer] [place] Access Immunoassay. Estradiol testing is performed using a different test methodology at [facility] than other [facility]. Direct result comparison should only be made within the same method. REF VALUES FOLLICULAR PHASE 20-144 MID CYCLE 64-357 LUTEAL PHASE 56-214 POSTMENOPAUSE < 32 PREPUBERTY < 20 MALE 10-18Y < 20 ADULT MALE < 40 Performed By: #### E STRA #### [facility] [address] [place] [address] Estradiol, Serumon 9 E2 [Mass/Vol] 357 pg/mL MG-OBGYN-Cr ock er 206A IVF Work Phone: Comment on above: Estradiol measuremen t is performed using the [employer] Access Immunoassay. Estradiol testing is performed using a different test methodology at [facility] than other [facility]. Direct result comparison should only be made within the same method.REF VALUESFOLLICULAR PHASE 20-144MID CYCLE 64-357LUTEAL PHASE 56-214POSTMENOPAUSE < 32PREPUBERTY < 20MALE 10-18Y < 20ADULT MALE < 40 LUTEINIZING HORMONEon 2018 LUTEINIZING HORMONE 14.7 IU/L Normal [facility] Comment on above: Result Comment: Lute inizing Hormone [LH] is performed using the [employer] [place] Access Immunoassay. LH testing is performed using a different test methodology at [facility] than other [facility]. Direct result comparison should only be made within the same method. REF VALUES FOLLICULAR PHASE 1.5-10.0 MID-CYCLE 13.0-72.0 LUTEAL PHASE 0.5-13.0 MENOPAUSE 15.0-65.0 PREPUBERTY 0- 3.0 CHILDREN 0- 6.0 ADULT MALE 1.0- 9.0 Performed By: #### E STRA #### [facility]NOTE 3] [address] [place] [address] Luteinizing Hormone, Serumon 10-02-2019 Lutropin Qn 14.7 {IU/L} QO-QQQIH-Fna ck er 206A IVF Work Phone: Comment on above: Luteinizing Hormone [LH] is performed using the [employer] Access Immunoassay. LH testing is performed using a different test methodology at [facility] than other [facility]. Direct result comparison should only be made within the same method.REF VALUESFOLLICULAR PHASE 1.5-10.0MID-CYCLE 13.0-72.0LUTEAL PHASE 0.5-13.0MENOPAUSE 15.0-65.0PREPUBERTY 0- 3.0CHILDREN 0- 6.0ADULT MALE 1.0- 9.0 PROGESTERONEon 10-02-2019 PROGESTERONE 0.1 ng/mL Normal [facility] Comment on above: Result Comment: Prog esterone is performed using the [employer] Access Immunoassay. Progesterone testing is performed using a different test methodology at [facility] than other [facility]. Direct result comparison should only be made within the same method. REF VALUES MALE <0.2-0.8 FOLLICULAR PHASE <0.2-1.5 LUTEAL PHASE 7.4-15.4 POSTMENOPAUSAL <0.2-0.2 1ST TRIMESTER 12.0-84.0 2ND TRIMESTER 10.2-58.8 3RD TRIMESTER 46.5-160 Performed By: #### E STRA #### [facility] [address] [place] [address] Progesterone, Serumon 2018 Progesterone [Mass/Vol] 0.1 ng/mL TB-SYQTS-Lwodu er 206A IVF Work Phone: Comment on above: Progesterone is perf ormed using the [employer] Access Immunoassay. Progesterone testing is performed using a different test methodology at [facility] than other [facility]. Direct result comparison should only be made within the same method.REF VALUESMALE <0.2-0.8 FOLLICULAR PHASE <0.2-1.5 LUTEAL PHASE 7.4-15.4 POSTMENOPAUSAL <0.2-0.2 1ST TRIMESTER 12.0-84.0 2ND TRIMESTER 10.2-58.8 3RD TRIMESTER 46.5-160 HCG,BETA-QUANTITATIVEon - HCG,BETA-QUANTITA TIVE 10 mIU/mL [facility] Comment on above: Result Comment: Low- level [...] HCG measurement is performed using the [employer] [place] Access Immunoassay which detects intact HCG and free beta HCG subunit. This test is not indicated for use as a tumor marker. HCG testing is performed using a different test methodology at [facility] than other [facility]. Direct result comparison should only be made within the same method. REF VALUES NON FEMALE <5 MALES <5 Performed By: #### L H #### [facility]NOTE 3] [address] [place] [address] LUTEINIZING HORMONEon 2018 LUTEINIZING HORMONE 57.0 IU/L Normal [facility] Comment on above: Result Comment: Lute inizing Hormone [LH] is performed using the [employer] [place] Access Immunoassay. LH testing is performed using a different test methodology at [facility] than other [facility]. Direct result comparison should only be made within the same method. REF VALUES FOLLICULAR PHASE 1.5-10.0 MID-CYCLE 13.0-72.0 LUTEAL PHASE 0.5-13.0 MENOPAUSE 15.0-65.0 PREPUBERTY 0- 3.0 CHILDREN 0- 6.0 ADULT MALE 1.0- 9.0 Performed By: #### E STRA #### [facility]NOTE 3] [address] [place] [address] PROGESTERONEon 08-13-2019 PROGESTERONE 6.7 ng/mL Normal [facility] Comment on above: Result Comment: Prog esterone is performed using the [employer] Access Immunoassay. Progesterone testing is performed using a different test methodology at [facility] than other [facility]. Direct result comparison should only be made within the same method. REF VALUES MALE <0.2-0.8 FOLLICULAR PHASE <0.2-1.5 LUTEAL PHASE 7.4-15.4 POSTMENOPAUSAL <0.2-0.2 1ST TRIMESTER 12.0-84.0 2ND TRIMESTER 10.2-58.8 3RD TRIMESTER 46.5-160 Performed By: #### L H #### [facility]NOTE 3] [address] [place] [address] ESTRADIOLon 08-12-2019 ESTRADIOL 1380 pg/mL Normal [facility] Comment on above: Result Comment: Estr adiol measurement is performed using the [employer] [place] Access Immunoassay. Estradiol testing is performed using a different test methodology at [facility] than other [facility]. Direct result comparison should only be made within the same method. REF VALUES FOLLICULAR PHASE 20-144 MID CYCLE 64-357 LUTEAL PHASE 56-214 POSTMENOPAUSE < 32 PREPUBERTY < 20 MALE 10-18Y < 20 ADULT MALE < 40 Performed By: #### L H #### [facility] [address] [place] [id number] PROGESTERONEon 08-12-2019 PROGESTERONE 1.7 ng/mL Normal [facility] Comment on above: Result Comment: Prog esterone is performed using the [employer] [place] Access Immunoassay. Progesterone testing is performed using a different test methodology at [facility] than [facility]. Direct result comparison should only be made within the same method. REF VALUES MALE <0.2-0.8 FOLLICULAR PHASE <0.2-1.5 LUTEAL PHASE 7.4-15.4 POSTMENOPAUSAL <0.2-0.2 1ST TRIMESTER 12.0-84.0 2ND TRIMESTER 10.2-58.8 3RD TRIMESTER 46.5-160 Performed By: #### L H #### [facility] [address] [place] [address] ESTRADIOLon 08-11-2019 ESTRADIOL 874 pg/mL Normal [facility] Comment on above: Result Comment: Estr adiol measurement is performed using the [employer] [place] Access Immunoassay. Estradiol testing is performed using a different test methodology at [facility] than [facility]. Direct result comparison should only be made within the same method. REF VALUES FOLLICULAR PHASE 20-144 MID CYCLE 64-357 LUTEAL PHASE 56-214 POSTMENOPAUSE < 32 PREPUBERTY < 20 MALE 10-18Y < 20 ADULT MALE < 40 Performed By: #### L H #### [facility] [address] [place] [address] PROGESTERONEon 08-11-2019 PROGESTERONE 1.2 ng/mL Normal [facility] Comment on above: Result Comment: Prog esterone is performed using the [employer] Access Immunoassay. Progesterone testing is performed using a different test methodology at [facility] than [facility]. Direct result comparison should only be made within the same method. REF VALUES MALE <0.2-0.8 FOLLICULAR PHASE <0.2-1.5 LUTEAL PHASE 7.4-15.4 POSTMENOPAUSAL <0.2-0.2 1ST TRIMESTER 12.0-84.0 2ND TRIMESTER 10.2-58.8 3RD TRIMESTER 46.5-160 Performed By: #### L H #### [facility] [address] [place] [address] ESTRADIOLon 08-09-2019 ESTRADIOL 385 pg/mL Normal [facility] Comment on above: Result Comment: Estr adiol measurement is performed using the [employer] [place] Access Immunoassay. Estradiol testing is performed using a different test methodology at [facility] than [facility]. Direct result comparison should only be made within the same method. REF VALUES FOLLICULAR PHASE 20-144 MID CYCLE 64-357 LUTEAL PHASE 56-214 POSTMENOPAUSE < 32 PREPUBERTY < 20 MALE 10-18Y < 20 ADULT MALE < 40 Performed By: #### L H #### [facility] [address] [place] [address] ESTRADIOLon 08-07-2019 ESTRADIOL 80 pg/mL Normal [facility] Comment on above: Result Comment: Estr adiol measurement is performed using the Jose [place] Access Immunoassay. Estradiol testing is performed using a different test methodology at [facility] than [facility]. Direct result comparison should only be made within the same method. REF VALUES FOLLICULAR PHASE 20-144 MID CYCLE 64-357 LUTEAL PHASE 56-214 POSTMENOPAUSE < 32 PREPUBERTY < 20 MALE 10-18Y < 20 ADULT MALE < 40 Performed By: #### L H #### [facility] [address] [place] [address] ESTRADIOLon 08-04-2019 ESTRADIOL 58 pg/mL Normal [facility] Comment on above: Result Comment: Estr adiol measurement is performed using the Jose Ryan Access Immunoassay. Estradiol testing is performed using a different test methodology at [facility] than [facility]. Direct result comparison should only be made within the same method. REF VALUES FOLLICULAR PHASE 20-144 MID CYCLE 64-357 LUTEAL PHASE 56-214 POSTMENOPAUSE < 32 PREPUBERTY < 20 MALE 10-18Y < 20 ADULT MALE < 40 Performed By: #### L H #### [facility] [address] [place] [address] ESTRADIOLon 07-07-2019 ESTRADIOL 110 pg/mL Normal [facility] Comment on above: Result Comment: Estr adiol measurement is performed using the Jose [employer]ault[employer] Access Immunoassay. Estradiol testing is performed using a different test methodology at [facility] than other [facility]. Direct result comparison should only be made within the same method. REF VALUES FOLLICULAR PHASE 20-144 MID CYCLE 64-357 LUTEAL PHASE 56-214 POSTMENOPAUSE < 32 PREPUBERTY < 20 MALE 10-18Y < 20 ADULT MALE < 40 Performed By: #### L H #### [facility] [address] [place] [address] NR MRI SELLA WO/Won 05-31-20 19 NR MRI SELLA WO/W Patient Name: KIARA ASHLEY STUDY: NR MRI SELLA WO/W; 05/31/2019 2:00 pm INDICATION: History of 7 mm microadenoma 2008. COMPARISON: None. ACCESSION NUMBER(S): [id number] ORDERING CLINICIAN: SHAHLA HEALY TECHNIQUE: High resolution [...] Electronically signed by: IRENE BLAKE, PHYSICIAN Normal [facility] ESTRADIOLon 05-05-2019 ESTRADIOL 217 pg/mL Normal [facility] Comment on above: Result Comment: Estr adiol measurement is performed using the Jose [place] Access Immunoassay. Estradiol testing is performed using a different test methodology at [facility] than other [facility]. Direct result comparison should only be made within the same method. REF VALUES FOLLICULAR PHASE 20-144 MID CYCLE 64-357 LUTEAL PHASE 56-214 POSTMENOPAUSE < 32 PREPUBERTY < 20 MALE 10-18Y < 20 ADULT MALE < 40 Performed By: #### E STRA #### [facility] [address] [place] [id number] LUTEINIZING HORMONEon 2018 LUTEINIZING HORMONE 4.4 IU/L Normal [facility] Comment on above: Result Comment: Lute inizing Hormone [LH] is performed using the Jose [place] Access Immunoassay. LH testing is performed using a different test methodology at [facility] than other [facility]. Direct result comparison should only be made within the same method. REF VALUES FOLLICULAR PHASE 1.5-10.0 MID-CYCLE 13.0-72.0 LUTEAL PHASE 0.5-13.0 MENOPAUSE 15.0-65.0 PREPUBERTY 0- 3.0 CHILDREN 0- 6.0 ADULT MALE 1.0- 9.0 Performed By: #### L H #### [facility] [address] [place] [address] ESTRADIOLon 04-11-2019 ESTRADIOL 118 pg/mL Normal [facility] Comment on above: Result Comment: Estr adiol measurement is performed using the Jose [place] Access Immunoassay. Estradiol testing is performed using a different test methodology at [facility] than other [facility]. Direct result comparison should only be made within the same method. REF VALUES FOLLICULAR PHASE 20-144 MID CYCLE 64-357 LUTEAL PHASE 56-214 POSTMENOPAUSE < 32 PREPUBERTY < 20 MALE 10-18Y < 20 ADULT MALE < 40 Performed By: #### E STRA #### [facility] [address] [place] [address] LUTEINIZING HORMONEon 2018 LUTEINIZING HORMONE 7.7 IU/L Normal [facility] Comment on above: Result Comment: Lute inizing Hormone [LH] is performed using the Jose Vaultive Access Immunoassay. LH testing is performed using a different test methodology at [facility] than other [facility]. Direct result comparison should only be made within the same method. REF VALUES FOLLICULAR PHASE 1.5-10.0 MID-CYCLE 13.0-72.0 LUTEAL PHASE 0.5-13.0 MENOPAUSE 15.0-65.0 PREPUBERTY 0- 3.0 CHILDREN 0- 6.0 ADULT MALE 1.0- 9.0 Performed By: #### L H #### [facility] [address] [place] [id number] PROGESTERONEon 04-11-2019 PROGESTERONE 0.1 ng/mL Normal [facility] Comment on above: Result Comment: Prog esterone is performed using the Jose Vaultive Access Immunoassay. Progesterone testing is performed using a different test methodology at [facility] than [facility]. Direct result comparison should only be made within the same method. REF VALUES MALE <0.2-0.8 FOLLICULAR PHASE <0.2-1.5 LUTEAL PHASE 7.4-15.4 POSTMENOPAUSAL <0.2-0.2 1ST TRIMESTER 12.0-84.0 2ND TRIMESTER 10.2-58.8 3RD TRIMESTER 46.5-160 Performed By: #### P SVEN #### [facility] 3] [address] [place] [id number] ESTRADIOLon 03-17-2019 ESTRADIOL 120 pg/mL Normal [facility] Comment on above: Result Comment: Estr adiol measurement is performed using the Jose Vaultive Access Immunoassay. Estradiol testing is performed using a different test methodology at [facility] than other [facility]. Direct result comparison should only be made within the same method. REF VALUES FOLLICULAR PHASE 20-144 MID CYCLE 64-357 LUTEAL PHASE 56-214 POSTMENOPAUSE < 32 PREPUBERTY < 20 MALE 10-18Y < 20 ADULT MALE < 40 Performed By: #### E STRA #### [facility]NOTE 3] [address] [place] [id number] LUTEINIZING HORMONEon 2018 LUTEINIZING HORMONE 6.8 IU/L Normal [facility] Comment on above: Result Comment: Lute inizing Hormone [LH] is performed using the Jose Vaultive Access Immunoassay. LH testing is performed using a different test methodology at [facility] than [facility]. Direct result comparison should only be made within the same method. REF VALUES FOLLICULAR PHASE 1.5-10.0 MID-CYCLE 13.0-72.0 LUTEAL PHASE 0.5-13.0 MENOPAUSE 15.0-65.0 PREPUBERTY 0- 3.0 CHILDREN 0- 6.0 ADULT MALE 1.0- 9.0 Performed By: #### L H #### [facility]NOTE 3] [address] [place] [address] ESTRADIOLon 02-20-2019 ESTRADIOL 521 pg/mL Normal [facility] Comment on above: Result Comment: Estr adiol measurement is performed using the Jose [place] Access Immunoassay. Estradiol testing is performed using a different test methodology at [facility] than [facility]. Direct result comparison should only be made within the same method. REF VALUES FOLLICULAR PHASE 20-144 MID CYCLE 64-357 LUTEAL PHASE 56-214 POSTMENOPAUSE < 32 PREPUBERTY < 20 MALE 10-18Y < 20 ADULT MALE < 40 Performed By: #### E STRA #### [facility]NOTE 3] [address] [place] [address] LUTEINIZING HORMONEon 2018 LUTEINIZING HORMONE 3.5 IU/L Normal [facility] Comment on above: Result Comment: Lute inizing Hormone [LH] is performed using the Jose [place] Access Immunoassay. LH testing is performed using a different test methodology at [facility] than [facility]. Direct result comparison should only be made within the same method. REF VALUES FOLLICULAR PHASE 1.5-10.0 MID-CYCLE 13.0-72.0 LUTEAL PHASE 0.5-13.0 MENOPAUSE 15.0-65.0 PREPUBERTY 0- 3.0 CHILDREN 0- 6.0 ADULT MALE 1.0- 9.0 Performed By: #### L H #### [facility]NOTE 3] [address] [place] [address] Vital Signs Date Time Vital Sign Value Performing Clinician Modesto golden 02-27-2023 11:35-0400 Body mass index (BMI) [Ratio] 29.26 kg/m2 Evelyn Perez Work Phone: [facility] 02-27-2023 11:35-0400 Body temperature 98.8 [degF] Evelyn Calderonrn Work Phone: [facility] [employer] 02-27-2023 11:35-0400 Body weight 72.58 kg Evelyn Calderonrn Work Phone: [facility] [employer] 02-27-2023 11:35-0400 Diastolic blood pressure 66 mm[Hg] Evelyn Calderonrn Work Phone: [facility] [employer] 02-27-2023 11:35-0400 Heart rate 88 /min Evelyn Calderonrn Work Phone: [facility] [employer] 02-27-2023 11:35-0400 Respiratory rate 14 /min Evelyn Calderonrn Work Phone: [facility] [employer] 02-27-2023 11:35-0400 SaO2% (BldA) [Mass fraction] 100 % Evelyn Calderonrn Work Phone: [facility] [employer] 02-27-2023 11:35-0400 Systolic blood pressure 103 mm[Hg] Evelyn Calderonrn Work Phone: [facility] [employer] 06-19-2021 14:03-0400 Body height 157.48 cm Evelyn Calderonrn Work Phone: UM-ICAFM-Ytawax 310 IVF Work Phone: 06-19-2021 14:03-0400 Body mass index (BMI) [Ratio] 29.26 kg/m2 Evelyn Calderonrn Work Phone: RL-TPLTW-Khcfkp 310 IVF Work Phone: 06-19-2021 14:03-0400 Body surface area Derived from formula 1.74 m2 Evelyn Calderonrn Work Phone: HL-YTDSU-Qzbjuh 310 IVF Work Phone: 06-19-2021 14:03-0400 Body weight 72.58 kg Evelyn M Ana Work Phone: UW-SNWIP-Hxlbki 310 IVF Work Phone: 06-19-2021 14:03-0400 1 1 Evelyn Husain Ana Work Phone: KI-SHERJ-Eejkbl 310 IVF Work Phone: Comment on above: GRAV PARA 06-19-2021 14:03-0400 0 1 Evelyn Husain Ana Work Phone: XB-DNDGG-Seefnh 310 IVF Work Phone: Comment on above: [employer] 06-07-2020 10:41-0400 BMI (Body Mass Index) 34.93 kg/m2 King Lappen TN-YFIMK-FOJ [address] [place] Work Phone: 06-07-2020 10:41-0400 Body weight 86.64 kg King Lappen LX-ZWIVI-QWH [address] [place] Work Phone: 06-07-2020 10:41-0400 BP Diastolic 76 mm[Hg] King Lappen ET-EMVDX-NOO [address] [place] Work Phone: 06-07-2020 10:41-0400 BP Systolic 111 mm[Hg] King Lappen PY-QKZOR-SEG [address] [place] Work Phone: 06-07-2020 10:41-0400 BSA (Body Surface Area) 1.87 m2 King Lappen LH-DGZXE-BLW [address] [place] Work Phone: 06-07-2020 10:41-0400 Pulse (Heart Rate) 101 /min King Lappen NQ-TOGFS-FPK [address] [place] Work Phone: 06-07-2020 10:41-0400 0 1 King Lappen JK-VPYEJ-QKS [address] [place] Work Phone: Comment on above: [employer] 12-25-2019 10:58-0500 BMI (Body Mass Index) 30.18 kg/m2 King Lappen XO-BZAZZ-QFM [address] [place] Work Phone: 12-25-2019 10:58-0500 Body weight 74.84 kg King Lappen MN-LWVML-IWC [address] [place] Work Phone: 12-25-2019 10:58-0500 BP Diastolic 68 mm[Hg] King Lappen RO-ZHNYH-RCY [address] [place] Work Phone: 12-25-2019 10:58-0500 BP Systolic 112 mm[Hg] King Lappen CA-YWTNY-KXB [address] [place] Work Phone: 12-25-2019 10:58-0500 BSA (Body Surface Area) 1.76 m2 King Lappen WQ-GPALF-WMY [address] [place] Work Phone: 11-09-2019 11:28-0500 Body Temperature 98.78 [degF] Kelechi Gage PG-SCHHG-Xtxrer 310 IVF Work Phone: 11-09-2019 11:28-0500 BP Diastolic 76 mm[Hg] Kelechi Gage FG-HUSHH-Ifwiyt 310 IVF Work Phone: 11-09-2019 11:28-0500 BP Systolic 112 mm[Hg] Kelechi Gage SF-ETMEU-Ucbgtl 310 IVF Work Phone: 11-09-2019 11:28-0500 Respiratory Rate 96 /min Kelechi Gage SC-LKCMC-Yrmsla 310 IVF Work Phone: Encounters Encounter Date Encounter Type Care Provider Facility Start: 01-10-2024 ambulatory Evelyn Perez MD Facility:[facility] Start: 11-30-2023 End: 11-30-2023 ambulatory RADAMES RIBEIRO Not Available Start: 11-03-2023 End: 11-03-2023 ambulatory RADAMES METCALFO Not Available Start: 10-05-2023 End: 10-05-2023 ambulatory SHERMAN HUNTER Not Available Start: 09-14-2023 End: 09-14-2023 ambulatory Lc Waite Facility:[facility] Start: 02-27-2023 End: 02-27-2023 Emergency department patient visit EVELYN PEREZ [facility] Start: 02-27-2023 End: 02-27-2023 Emergency department patient visit Evelyn Perez Work Phone: [facility] ED Comment on above: Sprain of left ankle , unspecified ligament, initial encounter (Primary Dx) Start: 01-13-2023 End: 01-14-2023 ambulatory Zoya Buitrago SURVEY DIRECTOR-TEXTILE ARTIST Facility:Pulmonology & Critical Care Medicine [facility] Start: 01-11-2023 End: 01-11-[address] RADAMES RIBEIRO . Facility:[facility]1 Start: 09-22-2022 End: 09-22-2022 Emergency department patient visit JAMI ROMERO [facility] Start: 03-10-[address] EVELYN PEREZ [...] 12-27-2021 End: 12-27-2021 ambulatory Sabina Barnhart Other [facility] [employer] Other Start: 12-27-2021 Office outpatient visit 5 minutes Sabina Barnhart [facility] Start: 07-16-2021 Patient encounter procedure Evelyn Trevinohorn Work Phone: MG-NYQAW-Kuecau 310 IVF Work Phone: Start: 07-07-2021 AUDIT Evelyn Husain Scherm erhorn Work Phone: HK-AWYGK-Vulgwv 310 IVF Work Phone: Start: 07-07-2021 Chart Update Evelyn Husain Scherm erhorn Work Phone: VO-FLHKP-Euvlmq 310 IVF Work Phone: Start: 07-02-2021 Telephone encounter Evelyn Husain Alejandro gonzales Work Phone: NP-DXXYP-Pvzyos 310 IVF Work Phone: Start: 06-19-2021 Patient encounter procedure Evelyn Trevinohorn Work Phone: FO-MUROS-Mwnbfa 310 IVF Work Phone: Start: 06-07-2020 Patient encounter procedure King Lappen WW-MQRQR-DIF [address] [place] Work Phone: Start: 04-24-2020 Patient encounter procedure King Lappen UL-VYAAP-QVF [address] [place] Work Phone: Start: 02-20-2020 Patient encounter procedure King Lappen BC-RBHDI-FNR [address] [place] Work Phone: Start: 02-14-2020 Patient encounter procedure King Lappen BE-FEOHQ-QQQ [address] [place] Work Phone: Start: 01-23-2020 Patient encounter procedure King Lappen ED-ELBUP-SHU [address] [place] Work Phone: Start: 12-25-2019 Patient encounter procedure King Lappen EP-KHVIG-OSC [address] [place] Work Phone: Start: 11-21-2019 Patient encounter procedure King Guevara PX-YOEHV-BYQ [address] [place] Work Phone: Start: 11-16-2019 Patient encounter procedure Kelechi Gage MP-Reproductive Endocrinology-[place] 206 Work Phone: Start: 11-14-2019 Patient encounter procedure Kelechi Gage TS-QVUEE-Cebxxg 310 IVF Work Phone: Start: 11-09-2019 Patient encounter procedure Kelechi Gage FD-AWVBW-Uqinsc 310 IVF Work Phone: Start: 11-02-2019 Patient encounter procedure Kelechi Gage MP-Reproductive Endocrinology-[place] Work Phone: Start: 10-21-2019 Patient encounter procedure Kelechi Gage MP-Reproductive Endocrinology-[place] Work Phone: Start: 10-14-2019 Patient encounter procedure Kelechi Gage ZZ-DQKQQ-Kpvtpo 310 IVF Work Phone: Start: 10-11-2019 Patient encounter procedure Kelechi Gage MR-BKIRK-Pahser 310 IVF Work Phone: Start: 10-05-2019 Patient encounter procedure Kelechi Gage US-FYYJK-Zrqafm 320 Work Phone: Start: 10-02-2019 Patient encounter procedure Kelechi Gage BO-DKXKR-Fbhplee 206A IVF Work Phone: Start: 08-14-2019 Patient encounter procedure Kelechi Gage TX-ITDCU-Thcdyn 310 IVF Work Phone: Start: 08-13-2019 Patient encounter procedure Kelechi Gage FK-RWBYX-Rzdinu 310 IVF Work Phone: Start: 08-12-2019 Patient encounter procedure Kelechi Gage FJ-DZDMH-Sjhcca 310 IVF Work Phone: Start: 08-11-2019 Patient encounter procedure Kelechi Gage SM-FOOPV-Xpsjqj 310 IVF Work Phone: Start: 08-09-2019 Patient encounter procedure Kelechi Gage KB-MSARY-Houkhu 310 IVF Work Phone: Start: 08-07-2019 Patient encounter procedure Kelechi Gage JY-LCGUH-Svkaga 310 IVF Work Phone: Start: 08-04-2019 Patient encounter procedure Kelechi Gage ZT-BVDID-Kturhb 310 IVF Work Phone: Start: 07-07-2019 Patient encounter procedure Kelechi TONGVB-OXFID-Zpomwy 310 IVF Work Phone: Start: 06-08-2019 Patient encounter procedure Kelechi Gage GW-NMXEM-Udgyac 310 IVF Work Phone: Start: 05-17-2019 Patient encounter procedure Kelechi Gage HR-BBQUV-Fpaxvr 310 IVF Work Phone: Start: 05-08-2019 Patient encounter procedure Kelechi Gage TZ-LDKLT-Wclzyk 310 IVF Work Phone: Start: 05-05-2019 Patient encounter procedure Kelechi Gage KW-THZAF-Tvedbv 310 IVF Work Phone: Start: 04-13-2019 Patient encounter procedure Kelechi Gage BL-CFSCL-Wzzucs 310 IVF Work Phone: Start: 04-11-2019 Patient encounter procedure Kelechi TOGNHY-TIZWQ-Njvhuq 310 IVF Work Phone: Start: 03-20-2019 Patient encounter procedure Kelechi TONGVE-FLMRJ-Bmfbcg 310 IVF Work Phone: Start: 03-17-2019 Patient encounter procedure Kelechi TONGXI-YPYUY-Xsoinp 310 IVF Work Phone: Start: 02-22-2019 Patient encounter procedure Kelechi Gage QE-VKNMN-Ndjzdj 310 IVF Work Phone: Start: 02-20-2019 Patient encounter procedure Kelechi Gage JB-VGZDJ-Ywuwxo 310 IVF Work Phone: Start: 02-13-2019 Patient encounter procedure Bruce Mayes Facility:[facility] Start: 02-08-2019 End: 02-12-2019 Patient encounter procedure Bruce Mayes Facility:[facility] Start: 01-19-2019 Patient encounter procedure Kelechi Gage SL-ESTYX-Edupwn 310 IVF Work Phone: Patient encounter status Evelyn Perez Work Phone: FT-ETVZN-Fbztkd 310 IVF Work Phone: Procedures Date Procedure [...] 12-25-2019 Iaad ia hepatitis b surface antigen Ikng Lappen Start: 12-25-2019 Iadna chlamydia trac homatis [...] Influenza vaccination Flu vacc ine (Season Ended) [facility] Start: 2021 Screening for malign ant neoplasm of cervix [facility] Start: 07-25-2021 ULTRASOUND, Provider : OBGYN IVF RDMS ARDEN 1,[facility], Status: Pen, Time: 9:00 AM ULTRASOUND, Provider: OBGYN IVF RDMS ARDEN 1,[facility] O[facility], Status: Pen, Time: 9:00 AM KT-UOSVW-Nsdhfi 310 IVF Work Phone: Start: 07-16-2021 ULTRASOUND, Provider : OBGYN IVF RDMS [id number] 1,[facility] O[facility], Status: Pen, Time: 1:00 PM ULTRASOUND, Provider: OBGYN IVF RDMS [id number] 1,[facility], Status: Pen, Time: 1:00 PM UF-VDSMH-Gxjiep 310 IVF Work Phone: Start: 07-07-2021 ULTRASALIN, Provider : Miguel A Barrera, Status: Pen, Time: 10:00 AM ULTRASALIN, Provider: Miguel A Barrera, Status: Pen, Time: 10:00 AM YJ-FTYXL-Uitwut 310 IVF Work Phone: Start: 06-05-2020 MAC Imaging Order MG-RIG BUILDER-MAC [address] [place] Work Phone: Start: 11-16-2019 IO Ultrasound, -Reproductive Endocrinology-[facility] [place] 206 Work Phone: Start: 11-14-2019 Blood count complete auto&auto difrntl wbc Complete Blood Count + Differential HL-WUCUW-Cqxowb 310 IVF Work Phone: Start: 11-14-2019 Comprehensive metabo lic 2000 panel XM-OSLTM-Yddwbs 310 IVF Work Phone: Start: 11-02-2019 Gonadotropin chorion ic quantitative HCG, Beta Quantitative -Reproductive Endocrinology-[facility] [place] [address] Work Phone: Start: 10-11-2019 IO Ultrasound, limited pelvic, follicle monitoring XO-NSYER-Pehiit 310 IVF Work Phone: Start: 10-05-2019 IO Ultrasound, limited pelvic, follicle monitoring IY-ECPPG-Gnryev 320 Work Phone: Start: 2012 Screening for malign ant neoplasm of cervix Pap smear [facility] Start: 2010 DTaP/Tdap/Td vaccine (1 - Tdap) DTaP/Tdap/Td vaccine (1 - Tdap) [facility] Start: 2009 Hepatitis C screening Hepatitis C sc reen [facility] Start: 2006 HIV screening HIV screen [facility] Start: 2003 Depression Screen Depression Screen [facility] Start: 1992 Varicella vaccine (1 of 2 - 2-dose childhood series) Varicella vaccine (1 of 2 - 2-dose childhood series) [facility] Start: 03-02-1992 COVID-19 Vaccine (#1) COVID-19 Vacci ne (#1) [facility] Assay of estradiol Estradiol, Serum MG-RIG BUILDER-Risman 310 IVF Work Phone: Comment on above: Approx [id number] Approx [id number] Approx [id number] Assay of progesterone Progesterone, Serum XD-QZRIA-Chfzln 310 IVF Work Phone: Comment on above: Approx [id number] Gonadotropin luteini zing hormone Luteinizing Hormone, Serum KA-ARXWQ-Gczysw 310 IVF Work Phone: Comment on above: Approx [id number] LA-SIQPB-Artabm 320 Work Phone: IO Ultrasound, l imited pelvic, follicle monitoring OA-SFEHQ-Ujldwt 310 IVF Work Phone: Comment on above: Approx [id number] Approx [id number] Approx [id number] NEGATED: Highlighted row has been ruled out! Planned Goals not documented HZ-ADQKH-Zfnuyu 310 IVF Work Phone: Payers Date Payer Category Payer Self-pay 2017 Unknown 1991 Unknown [id number] 2.16.84 0.1.659687.3.579.2.593 1991 Unknown [id number] 2.16.84 0.1.559414.3.579.2.593 1991 Unknown [id number] 2.16.84 0.1.266250.3.579.2.593 1991 Unknown [id number] 2.16.84 0.1.649160.3.579.2.593 1991 Unknown [id number] 2.16.84 0.1.215164.3.579.2.593 1991 Unknown [id number] 2.16.84 0.1.564583.3.579.2.593 1991 Unknown [id number] 2.16.84 0.1.659662.3.579.2.593 1991 Unknown [id number] 2.16.84 0.1.958864.3.579.2.593 1991 Unknown [id number] 2.16.84 0.1.046714.3.579.2.593 1991 Unknown [id number] 2.16.84 0.1.709966.3.579.2.593 1991 Unknown [id number] 2.16.84 0.1.570399.3.579.2.593 1991 Unknown [id number] 2.16.84 0.1.873265.3.579.2.593 1991 Unknown [id number] 2.16.84 0.1.930327.3.579.2.593 1991 Unknown [id number] 2.16.84 0.1.967248.3.579.2.593 1991 Unknown [id number] 2.16.8 40.1.490071.3.579.2.173 1991 Unknown [id number] 2.16.8 40.1.369495.3.579.2.173 1991 Unknown [id number] 2.16. 840.1.766255.3.579.2.196 1991 Unknown [id number] 2.16. 840.1.271437.3.579.2.196 1991 Unknown [id number] 2.16.84 0.1.965766.3.579.2.1259 1991 Unknown [id number] 2.16.840 .1.844115.3.579.2.1259 1991 Unknown [id number] 2.16.840 .1.987585.3.579.2.1259 1959 Self-pay [id number] 1959 Unknown [id number] 1959 Unknown [id number] Unknown [id number] 2.16.8 40.1.957775.3.579.2.243 Unknown [id number] 2.16.8 40.1.832618.3.579.2.243 Unknown [id number] 2.16.8 40.1.102678.3.579.2.531 Social History Date Type Detail Facility - - AK-XRNAO-Kughvh 310 IVF Work Phone: Never a smoker Never a smoker -Christina dietrichn 310 IVF Work Phone: Comment on above: [facility] ED; Sex Assigned At Sex Assigned At [facility] [employer] Other Start: 09-22-2022 [facility] [employer] Work Phone: Start: 09-22-2022 Tobacco use and exposure Smokeless tobacco non-user [employer] Work Phone: Start: 1990 Sex Assigned At Not on file [facility] [employer] [facility] Phone: Start: 02-17-2023 End: 02-27-2023 Exposure to SARS-CoV-2 (event) Not sure [facility] Functional Status Date Assessment Result Facility NEGATED: Highlighted row Functional performance Functional status health issues are not documented Disease Marcela 310 IVF Work Phone: Mental Status Date Assessment Result Facility NEGATED: Highlighted row Cognitive function [Interpretation] Cognitive status health issues are not documented Disease Marcela 310 [facility] Work Phone: Clinical Note 01-13-2023 Note Date [...] qualifying data available. Assessment/Plan 1. Asthma Ordered: [id number] AMB Admin of patient-focused health risk assessment [...] signed by Link Zoya PERKINS 01/13/23 12:06 [facility] Evaluation note 12-27-2021 Note Date & Type [...] Patient care instructions given in writting by [facility] Care At Home document. [employer] Other Clinical Note 07-25-2021 Note Date & [...] care. Reviewed plan with Dr. Bruce Aburto, TEXTILE ARTIST 07/25/2021 09:22 note: ob scan LOLLY: 03/05/2022. [...] Plan reviewed by Dr. Healy. Petra Lombardi TEXTILE ARTIST 07/16/21 1409 TC to pt with quant = 3238 form yesterday; normal rise from 728 on 07/02; Pt doing well; no problems with Lovenox. [facility] to schedule OB US for next week at [facility]. Bere [address] RN 07/07/2021 11:47 Spoke with patient regarding PPXY=271. Pain=0. Patient states she will begin prometrium BID and Lovenox today. Patient will repeat [facility] on Wednesday when she is at work. Patient aware RN will call her Saleem Larose 23 with results and plan. Lucy Dunlap R.N.07/03/2021 12:19 Spoke to patient, will start Prometrium 100 mg BID and Lovenox 40 mg BID today (+Protein S deficiency). Forest to f/u with patient tomorrow once HCG level is back. Patient verbalized understanding. Rosibel Sam RN 07/02/2021 13:54 MD note: Reviewed positive test. LMP 15, conceived on christy cycle/IC. Plan to get HCG drawn today. Start Prometrium 100mg BID. Start Lovenox 40mg BID SQ. Plan per Dr. Healy. RN to communicate. Petra Lombardi TEXTILE ARTIST 07/02/21 1304 Active Problems 16 weeks gestation [...] directed. Peak F (more content not included)... schoox Chief complaint Narrative - Reported 06-19-2021 Note [...] pandemic. Verbal consent obtained for telemedicine visit.me [id number] IV[facility] Work Phone: History of Present illness Narrative 06-15-2020 Note Date & Type Note Facility 06-15-2020 History of Present illness Narrative IVF Consult:Patient is a 30 year-old who presents for a FET [id number] Hx:06/2020: IOL @ 38 weeks due to [...] contour on HSG - images reviewed from [facility] 08/2018Uterine Cavity Evaluation:Normal uterine cavity on [...] Ashley 04/09/1989A in past year:2.8 cc125 mil/mL69% dvehxoyiAQU=777 million(recent IUI sample)Morph from original SA was 2.8% [id number] IVF Work Phone: Evaluation note Note Date & Type Note Facility Evaluation note Diagnosis Sprain of left ankle, unspecified ligament, initial encounter- Primary documented in this encounter [facility] Work Phone: Hospital Discharge instructions Attachments Note Date & Type Note Facility Hospital Discharge instructions The following attachments cannot be sent through Care Everywhere.Ankle Sprain ([place]elsh)Ankle Sprain: Rehab Exercises (Welsh)documented in this encounter [facility] Work Phone: Summary Purpose Family History No [...] section and content) DATE CREATED AUTHOR [place]15/[place] [facility] [place] DATE CREATED AUTHOR AUTHOR'S ORGANIZ ATION 11/12/[address] [facility] DATE CREATED AUTHOR AUTHOR'S ORGANIZ ATION 08/09/2020 [facility] DATE CREATED AUTHOR AUTHOR'S ORGANIZ ATION 07/26/2021 [facility] DATE CREATED AUTHOR AUTHOR'S ORGANIZ ATION 01/21/2023 [facility] DATE CREATED AUTHOR AUTHOR'S ORGANIZ ATION 03/06/2023 [facility] DATE CREATED AUTHOR AUTHOR'S ORGANIZ ATION 07/12/2023 [facility] DATE CREATED AUTHOR AUTHOR'S ORGANIZ ATION 10/04/2023 [facility] DATE CREATED AUTHOR AUTHOR'S ORGANIZ ATION 10/30/2023 [facility] DATE CREATED AUTHOR AUTHOR'S ORGANIZ ATION 12/01/2023 [facility] EPIC REASON FOR VISIT (unrecogniz ed section and content) Reason Comments Ankle Pain Rolled ankle during morning run. Swelling to lateral ankle. 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 Care Teams (unrecognized sec tion and content) Enterprise Architect Relationship Specialty Start Date End Date Evelyn Perez [address] [place] [address] PCP - General Pediatrics 09/22/22 [...] BE BASED ON THE PRIMARY CLINICAL RECORDS. Property Partner [facility]. provides no warranty or guarantee of the accuracy or completeness of information in this document.
[2023-12-21 08:06] LABS: Basophils Absolute Auto 0.1 10^3/uL (0.0-0.1); Basophils Percent Auto 0.7 % (0.2-2.0); Eosinophils Absolute Auto 0.2 10^3/uL (0.0-0.7); Eosinophils Percent Auto 1.6 % (0.9-7.0); Hematocrit 36.2 % (36.0-48.0); Hemoglobin 12.1 g/dL (12.0-16.0); Immature Granulocytes Abs Auto 0.33 10^3/uL (0.00-0.03); Immature Granulocytes Pct Auto 2.9 % (0.0-0.5); Lymphocytes Absolute Auto 2.1 10^3/uL (1.2-3.8); Lymphocytes Percent Auto 18.8 % (20.5-60.0); Mean Corpuscular HGB Conc 33.4 g/dL (29.9-35.2); Mean Corpuscular Hemoglobin 31.5 pg (26.7-34.0); Mean Corpuscular Volume 94.3 fL (81.0-99.0); Mean Platelet Volume 9.7 fL (9.5-13.5); Monocytes Absolute Auto 0.5 10^3/uL (0.3-0.8); Monocytes Percent Auto 4.2 % (1.7-12.0); Neutrophils Absolute Auto 8.1 10^3/uL (1.4-6.5); Neutrophils Percent Auto 71.8 % (43.0-75.0); Platelet Count 280 10^3/uL (150-450); Red Blood Count 3.84 10^6/uL (4.20-5.40); Red Cell Distribution Width 14.6 % (11.0-15.0); White Blood Count 11.3 10^3/uL (4.0-11.0)
[2023-12-21 09:57] LABS: Glucose 1 Hour 100 mg/dL
== END 2023-12-21 06:32 | disposition home or self-care (01) ==
LOC: LAB 06:35
PROVIDERS: Visit Provider Obstetrics & Gynecology
DX: Z34.92 Encounter for supervision of normal pregnancy, unspecified, second trimester (principal)
CPT/HCPCS: 36415; 82950; 85025

== ENCOUNTER 2024-01-10 13:35 | Outpatient (OUT) | payer OTHER, SELFPAY ==
--- NOTE | 2024-01-10 13:37 | US_ITS ---
[address] [address] Patient Name: ELVIN STUART MRN: [id number] date: 1990 Sex: F Assigned Patient Location: [facility] Current Patient Location: [facility] Accession/Order Number: [id number] Exam Date: 01/10/2024 13:39 Report Date: 01/10/2024 14:03 At the request of: RADAMES CHAUHAN Procedure: US OB growth EXAMINATION: US OB growth HISTORY: Hypothyroidism E03.9 COMPARISON: No relevant comparison available. FINDINGS: Heart Rate: 127.0 bpm Amniotic Fluid Volume: 14.5 cm Number: 1.0 Position: Breech presentation, longitudinal lie Maximum Vertical Pocket: 6.7 cm cm 3.0 cm cm 1.0 cm cm 3.9 cm cm BIOMETRY: BPD: 7.4 cm cm; 29 weeks 6 days; 23% HC: 29.1 cmcm; 32 weeks 0 days , 65% AC: 27.3 cm cm; 31 weeks 2 days, 76% FL: 6.0 cm cm; 31 weeks 0 days; 56.1 % % EFW: 1714.9 grams, 3 lbs. 12 oz., 69% FL/AC: 21.8 FL/BPD: 80.1 HC/AC: 1.1 GESTATIONAL AGE: Age by EDC: 30 weeks 2 days LOLLY by EDC: 03/18/2024 Age by US: 31 weeks 0 days LOLLY by US: 03/13/2024 US/US OB growth IMPRESSION: Normal interval growth Electronically authenticated by: JESSE THOMAS Date: 01/10/2024 14:03
== END 2024-01-10 13:36 | disposition home or self-care (01) ==
LOC: NOMS 13:35
PROVIDERS: Visit Provider Obstetrics & Gynecology
DX: E03.9 Hypothyroidism, unspecified (principal); O36.63X0 Maternal care for excessive fetal growth, third trimester, not applicable or unspecified; Z3A.30 30 weeks gestation of pregnancy
CPT/HCPCS: 76816

== ENCOUNTER 2024-01-24 07:25 | Outpatient (OUT) | payer OTHER, SELFPAY ==
--- OUTSIDE RECORDS SUMMARY | 2024-01-24 07:43 | XMS_ITS | CCD ---
Author Name Unknown Address [id number] [place] [address] Organization [facility] Care Team Providers Care Social Welfare Research Worker Name Role Phone Bruce Mayes Attending [...] HER Unavailable Unavaila ble OBGYN IVF RDMS [id number] 1, MG OBGYN Unavailable Unavailable King Guevara Unavailable Unavailable Shahla Healy Unavailable Unavailable January, Jami Unavailable Unavailable Evelyn Perez Unavailable Unavailable Unavailable Unavailable Unavailable Sabina Barnhart Unavailable DR EVELYN PEREZ Primary Care Unavail able GISSEL ., DR [...] DR EVELYN Husain Primary Care Unavail able [place], DR JESSE Alvarez Consulting Unavailable ANA, DR EVELYN Husain Primary Care Unavail able GISSEL ., DR CRUM Attending Unavailable GISSEL ., DR CRMU Admkaterine Unavailable GISSEL ., DR CRUM Consulting [...] Unavailable GISSEL ., DR CRUM Admitting Unavailable Ana, Evelyn Husain Primary Care Provider [phone] JAMI ROMERO Attending Unavailable EVELYN PEREZ Primary Care EVELYN Coombs Primary Care UnavailLc Rick Admitting Unavailable Evelyn Perez Primary Care Unavailable Lc Waite Attending Unavailable Jesse Regan MD Primary Care Provider [phone] DEMARIO RIBEIRO Attending Unavailable BERE STEEL Attending Unavailable BERE STEEL Attending Unavailable DEMARIO RIBEIRO Attending Unavailable Link GREGORIO, Zoya Cheung Attending Zamzamva ilEvelyn Hyatt MD Primary Care Evelyn Hernandez MD Primary [facility] Zamzam PERKINS, Zoya Cheung Attending Robert ilable Allergies Allergy Classification Reported Allergen(s) Allergy Type Date of Onset Reaction(s) Facility Progesterone (2 sources) Progesterone; Translations: [Progesterone OIL] Drug Allergy [id number] n 310 IVF Work Phone: (16 sources) Progesterone; Translations: [Progesterone OIL] Drug Allergy 2 [facility] (2 sources) sesame seed extract Drug Allergy [facility] (2 sources) Progesterone Drug Allergy 2 [facility] (1 source) No Known Medication Allergies; Translations: [No Known Medication Allergies] Propensity to adverse reactions to drug (disorder) [facility] Medications Current Medications Medication Drug Class(es) Dates Sig (Normalized) Sig (Original) calcium carbonate 1500 mg / cholecalciferol 800 unt oral tablet (2 sources) Vitamin D Calcium Carb-Cholecalciferol 600-20 MG-MCG tablet orally once a day 0 Active cholecalciferol 0.025 mg oral tablet (2 sources) Vitamin D cholecalciferol (Vitamin D-3) 25 MCG (1000 UT) tablet 1 {tab} by oral route. 0 Active 0.6 ml enoxaparin sodium 100 mg/ml prefilled syringe (20 sources) Low Molecular Weight Heparin Start: 10-31-2023 Enoxaparin Sodium 60 MG/0.6ML solution prefilled syringe Start: 06-07-2020 Lovenox 80 MG/ 0.8ML Subcutaneous Solution Refills: 0 DO Start : [...] mLs into the skin daily 0 Active levothyroxine sodium 0.025 mg oral tablet (4 sources) l-Thyroxine Start: 09-06-2023 End: 12-26-2024 take 1 tablet by mouth before mealtime levothyroxine (Synthroid) 25 MCG tablet Indications: First trimester , Hypothyroidism, unspecified type (CMS/HCC) Take 1 tablet (25 mcg) by mouth in the morning. Take before meals. 30 tablet 11 12/27/2023 12/26/2024 Active metoclopramide 10 mg oral tablet (6 sources) Dopamine-2 Receptor Antagonist Start: 11-30-2023 End: 12-30-2023 take 1 tablet by mouth every six hours metoclopramide (Reglan) 10 MG tablet Indications: Nausea and vomiting during Take 1 tablet (10 mg) by mouth every 6 (six) hours 120 tablet 0 11/30/2023 12/30/2023 Active Start: 09-22-2022 take 1 tablet by [facility] four times daily metoclopramide (REGLAN) 10 MG [...] Start : 23-Jan-2020 Active 30 Tablet Bottle pantoprazole 40 mg delayed release oral tablet (5 sources) Proton Pump Inhibitor Start: 11-18-2023 End: 11-17-2024 take 1 tablet by mouth once before mealtime pantoprazole (Protonix) 40 MG EC tablet Indications: Heartburn during in second trimester Take 1 tablet (40 mg) by mouth in the morning. Take before meals. Do not crush, chew, or split.. 90 tablet 3 11/18/2023 11/17/2024 Active Start: 01-23-2020 Protonix 20 MG Oral Tablet Delayed Release Refills: 0 DO Start : 23-Jan-2020 Active MV & Min w/FA-DHA ( ADULT GUMMY/DHA/FA PO) (1 source) MV & Mi n w/FA-DHA ( ADULT GUMMY/DHA/FA PO) Take by mouth 0 Active MV-Min-Fe Fum-FA-DH A ( 1 PO) (2 sources) MV-Min- Fe Fum-FA-DHA ( 1 PO) 0 Active Progesterone 200 MG supposit ory (2 sources) Start: 07-07-2023 Progesterone 2 00 MG suppository Indications: Missed menses Insert 200 mg into the vagina at bedtime. 30 suppository 2 07/07/2023 Active Completed/Discontinued Medications Medication Drug Class(es) Dates [...] Kelechi Gage MD Start : 14-Aug-2019 Active [id number] 200 actuat albuterol 0.09 mg/actuat metered dose inhaler (15 sources) beta2-Adrenergic Agonist Start: 05-19-2019 Ventolin HFA 108 (90 Base) MCG/ACT Inhalation Aerosol Solution Quantity: 18 Refills: 0 Ordered: 19-May-2019 DO Start : 19-May-2019 Active Start: 05-19-2019 Ventolin HFA 1 08 (90 Base) MCG/ACT Inhalation Aerosol Solution Quantity: 18 Refills: 0 DO Start : 19-May-2019 Active take 1 puff(s) by in halation every four hours albuterol HFA 90 mcg/act inhaler Inhale 1 puff every 4 (four) hours if needed. 0 Active take 2 puff(s) by in halation [...] DO Start : 19-Jan-2019 Active BD Disp [place] 27G X 1/2 (19 sources) Start: 10-03-2019 BD Disp Needle s 27G X 1/2 USE DIRECTED. Quantity: 2 Refills: 2 Shahla Healy MD Start : 03-Oct-2019 Active chorionic gonadotropin 22371 unt/ml injectable solution (19 sources) Gonadotropin Start: 10-03-2019 Chorionic Gonadotropin 00581 UNIT Intramuscular Solution Reconstituted USE DIRECTED. Quantity: 1 Refills: 1 Shahla Healy MD Start : 03-Oct-2019 Active famotidine 20 mg oral tablet (20 [...] by in halation in the morning mometasone-formoterol (Dulera) 200-5 MCG/ACT inhaler Inhale 2 puffs in the morning and 2 puffs before bedtime. 0 Active letrozole 2.5 mg oral tablet [...] Ordered: 17-May-2019 DO Start : 17-May-2019 Active take 1 tablet by mouth in the mo rning loratadine (Claritin) 10 MG tablet Take 10 mg by mouth in the morning. 0 Active Peak Air Peak Flow Meter Device (7 sources) Start: 12-25-2019 Peak Air Peak Flow Meter Device Use as directed. Quantity: 1 Refills: 0 King Guevara MD Start : 25-Dec-2019 Active Start: 12-25-2019 Peak Air Peak Flow Meter Device USE DIRECTED. Quantity: 1 Refills: 0 King Guevara MD Start : 25-Dec-2019 Active Peak Flow Meter [place] Device (3 sources) Start: 01-23-2020 Peak Flow Mete r [place] Device USE DIRECTED. Quantity: 1 Refills: [...] of mother, condition or complication] Episodic Other complications of (2 sources) Excessive growth affecting management of mother; Translations: [Maternal care for excessive growth, third trimester, not applicable or unspecified] 12-27-2023 Episodic Other nervous system disorders (20 sources) Postoperative pain ; Translations: [Other acute postoperative pain] Episodic Other nutritional; endocrine; and metabolic disorders (8 sources) Obesity; Translations: [Obesity complicating , childbirth, or the puerperium, antepartum condition or complication] Chronic Other and delivery including normal (20 sources) test positive; Translations: [] Onset: 2 Episodic Other screening for suspected conditions (not mental disorders or infectious disease) (20 sources) care status; Translations: [Patient encounter status] Onset: 2 Resolved: 1 Episodic Other upper respiratory disease (20 sources) Seasonal allergy; Translations: [Allergic rhinitis, cause unspecified] Chronic Phlebitis; thrombophlebitis and thromboembolism (20 sources) H/O: thrombosis; Translations: [H/O: Deep vein thrombosis] 12-27-2023 Episodic Pulmonary heart disease (20 sources) Pulmonary [...] 16 weeks; Translations: [ state, incidental] Episodic Thyroid disorders (4 sources) Hypothyroidism; Translations: [Hypothyroidism, unspecified] 12-27-2023 Chronic Unclassified (2 sources) [facility] Onset: 9 [...] PG UNS TRI] Onset: 02-03-2022 Episodic Other connective tissue disease (2 sources) Pain in left foot; Translations: [Pain in left foot] Onset: 03-29-2023 03-29-2023 Episodic Other connective tissue disease (2 sources) Peroneal tendinitis of left lower limb; Translations: [Peroneal tendinitis, left leg] Onset: 03-29-2023 03-29-2023 Episodic Other connective tissue disease (2 sources) Metatarsalgia of left foot; Translations: [Metatarsalgia, left foot] Onset: 03-29-2023 03-29-2023 Episodic Other injuries and conditions due to external causes (2 sources) Injury of left ankle; Translations: [Unspecified injury of left ankle, initial encounter] Onset: 03-29-2023 03-29-2023 Episodic Other non-traumatic joint disorders (2 sources) Sinus tarsi syndrome of left ankle; Translations: [Pain in left ankle and joints of left foot] Onset: 03-29-2023 03-29-2023 Episodic Residual codes; unclassified (1 source) 38 [...] weeks; Translations: [16 weeks gestation of ] Sprains and strains (4 sources) Sprain of left ankle; Translations: [Sprain of unspecified ligament of left ankle, initial encounter] Onset: 02-27-2023 Episodic Unclassified (20 sources) Patient encounter status; Translations: [Fertility testing] NEGATED: Highlighted row has not occurred!Residual codes; unclassified (20 sources) Disease Episodic Results Test Name Value Interpretation Reference Range Facility Pulmonology Office/Clinic Brittany lloyd 01-10-2024 Pulmonology Office/Clinic Note Chief Complaint 1yr follow up History of Present Illness 33-year-old female here for follow-up with history of well-controlled asthma, shortness of breath and history of PE. Upon presentation shows no symptoms of distress currently 95% on room air. ACT score today in office is 22. Patient is doing well from pulmonary standpoint well-controlled asthma does have increased shortness of breath however is 30 weeks gestation she contributes all of her increased shortness of breath secondary to . Does continue with Lovenox injections. She continues with Dulera 200, 2 puffs twice daily and albuterol as needed with great symptom relief. She currently denies any fevers, chills, night sweats, unintentional weight loss, lower extremity edema, hemoptysis or chest pain. Review of Systems General Adult ROS Fatigue: No Weight Loss: No Cardiovascular Edema: No Orthopnea: No EENMT Hoarseness: Yes Postnasal drainage: Yes Sore_throat: No Gastrointestinal Heartburn: Yes Vomiting: No Genitourinary Hematologic/Lymphatic Musculoskeletal Neurological Headache: No Psychiatric Poor sleep quality: No Suicidal Ideation: No Respiratory Cough: Yes Hemoptysis: No Shortness_of_breath: No Snoring: No Sputum production: Yes Wheezing: Yes Skin Physical Exam Vitals & Measurements T: 36.7 ?C (Oral) HR: 81 (Peripheral) BP: 94/59 SpO2: 95 HT: 157 cm WT: 85.5 kg WT: 85.5 kg (Dosing) BMI: 34.69 General: Alert and oriented, well nourished, no acute distress. Eye: PERRL, EOMI, normal conjunctiva. HENT: Normocephalic, no scleral icterus, no sinus tenderness. Neck: Supple, non-tender, no carotid bruits, no JVD, no lymphadenopathy. Lungs: Clear to auscultation, non-labored respiration. Heart: Normal rate, regular rhythm, no murmur, gallop or edema. Abdomen: soft, non-tender, non-distended, normal bowel sounds. Musculoskeletal: Normal range of motion and strength, no tenderness or swelling. Skin: Skin is warm, dry and pink. Neurologic: Awake, alert, and oriented X3, CN II-XII intact. Psychiatric: Cooperative, appropriate mood and affect. Remaining physical exam negative other than mentioned above Additional Vitals No qualifying data available. Assessment/Plan 1. Hx pulmonary embolism 2. Asthma Patient is doing well from pulmonary standpoint continue with current respiratory medications will send for Dulera and albuterol refills. Continue with anticoagulation as prescribed by BINDERY WORKER, patient is currently 30 weeks gestation. Follow-up pulmonary clinic 1 year or sooner if needed Plan of care treatment discussed with patient, all questions and concerns answered at this time. Medical Decision Making Chronic conditions NOT treated during this visit that affected my overall medical decision making: None Treatment plans discussed but not opted for at this time: Treatment plan agreed upon Prescribed medication that requires intensive monitoring for toxicity: None I have reviewed the patient?s medication list for medication interactions/contraindicat ions and/or for upcoming procedures: Yes Time Spent with the Patient I have personally spent 21 minutes on this date, directly related to today's patient visit, including pre and post visit work, for this date of service. Time listed does not include time spent on separately billable services. Problem List/Past Medical History Ongoing Asthma Hx pulmonary embolism Historical No qualifying data Procedure/Surgical History [place] Teeth Removal (2005) IVF (11/15/2018) Medications Dulera 200 mcg-5 mcg/inh inhalation aerosol, See Instructions enoxaparin 40 mg/0.4 mL injectable solution enoxaparin 60 mg/0.6 mL injectable solution Multi Vitamin+ ProAir HFA 90 mcg/inh inhalation aerosol, 180 mcg= 2 puffs, Inhale, QID, PRN, 6 refills Synthroid 25 mcg (0.025 mg) oral tablet Allergies No Known Medication Allergies Social History Alcohol Never Substance Abuse Denies All Tobacco Never (less than 100 in lifetime) Use:. Family History Noncontributory Immunizations Keep current on vaccinations Health Maintenance Increase activity as tolerated Electronically signed by Link Zoya PERKINS 01/10/24 12:40 EST Normal [facility] Phone Note - Heme Onc-medica tion questionon 07-12-2023 Phone Note - Heme Onc-medication question Phone Call Information: Patient Demographics: Name: KIARA ASHLEY Date: 1990 Address: [address] [place] [address] Date and Time: 12-Jul-2023 09:31 Caller Information: call from Call From: patient Caller Name: Kiara Primary Phone Number: [phone] Reason for Call: Reason for Callmedication question Message: Message: Patient found out yesterday that she is so she will need to double her Lovenox Asking for new RX Caller Informed Of: Per Dr. Mayes: she needs lovenox 40 mg SC BID for first trimester Team Communication: Clinician note: contacted patient Disposition: Rx sent by [employer] Team Communications: Spoke with the patient. States she is positive for . Provided update from Dr. Mayes above. Pt asked for script to be sent to [facility]. Script sent. Pt had no further questions or concerns at this time. Harmony Ross 07/12/2023 09:54 Harmony Ross 07/12/2023 09:57 Outpatient Medication Profile: * Patient [...] by Harmony Ross (N MGR) Normal [facility] XR ANKLE LEFT (MIN 3 [...] Dario William MD 02/27/23 Final result Normal [facility] 1. No acute osseous abnormality involving the left ankle. [facility] EXAMINATION: THREE XRAY VIEWS OF THE LEFT ANKLE 02/27/2023 11:46 am COMPARISON: None. HISTORY: ORDERING SYSTEM PROVIDED HISTORY: pain, swelling TECHNOLOGIST PROVIDED HISTORY: pain, swelling FINDINGS: The bone mineralization is within normal limits. The ankle mortise is stable. No acute fractures or dislocations are seen. There is no soft tissue swelling. [facility] Dario William MD - 02/27/2023 EXAMINATION: THREE XRAY VIEWS [...] acute osseous abnormality involving the left ankle. [employer] Phone: Radiology Study observation (narrative) [employer] Phone: XR ANKLE LEFT (MIN 3 VIEWS)O rdered By: Dario Stewart on 02-27-2023 [employer] Phone: PAP ACOG PANEL 2: 30 to 65on 01-19-2023 . . Normal [facility] Comment on above: Result Comment: Perf ormed at: WB Performed By: #### [id number] #### [facility] [address] [address] [address] Claire Mayes Age Gdln ACOG Testing 30-[address] [facility] Comment on above: Performed By: #### [id number] #### [facility] [address] [address] [address] Claire Mayes DIAGNOSIS: Comment Normal [facility] Comment on above: Result Comment: NEGA TIVE FOR INTRAEPITHELIAL LESION OR MALIGNANCY. Performed at: WB Performed By: #### [id number] #### [facility] [address] [address] [address] Claire Mayes HPV Aptima Negative Normal Negative [facility] Comment on above: Result Comment: This nucleic acid amplification test detects fourteen high-risk HPV types (16,18,31,33,35,39,45,51,52,56,58,59,66,68) without differentiation. Performed at: =G Performed By: #### [id number] #### [facility] [address] [address] [address] Claire Mayes HPV Genotype Reflex Comment Normal [facility] Comment on above: Result Comment: Crit eria not met, HPV Genotype not performed. Performed at: WB Performed By: #### [id number] #### [facility] [address] [address] [address] Claire Mayes Methodology: Comment Normal [facility] Comment on above: Result Comment: This liquid based ThinPrep(R) pap test was screened with the use of an image guided system. Performed at: WB Performed By: #### [id number] #### [facility] [address] [place] [address] Dr. Claire Mayes Note: Comment Normal [facility] Comment on above: Result Comment: The Pap smear is a screening test designed to aid in the detection of premalignant and malignant conditions of the uterine cervix. It is not a diagnostic procedure and should not be used as the sole means of detecting cervical cancer. Both false-positive and false-negative reports do occur. . Performed at: WB Performed By: #### [id number] #### [facility] [address] [place] [address] Dr. Claire Mayes Performed by: Comment Normal [facility] Comment on above: Result Comment: Sherlyn Wright, Can Machine Operator (ASCP) Performed at: WB Performed By: #### [id number] #### [facility] [address] [place] [address] Dr. Claire Mayes Specimen adequacy: Comment Normal [facility] Comment on above: Result Comment: Sati sfactory for evaluation. No endocervical component is identified. Performed at: WB Performed By: #### [id number] #### [facility] [address] [place] [address] Dr. Claire Mayes CBC with Diffon 09-22-2022 Abs. Basophil 0.03 k/uL Normal 0.00-0.20 [facility] Comment on above: Performed By: #### L BJ BUCK, CP #### [facility] [address] [place] [address] [place] [address] Diaphragm Builder: Jesse Curry MD Abs.Imm.Granulocy te 0.04 k/uL Normal 0.00-0.30 [facility] Comment on above: Performed By: #### L BJ BUCK, CP #### [facility] [address] [place] [id number] Diaphragm Builder: Jesse Curry MD Abs.Neutrophil (Seg) 12.54 k/uL High 1.50-8.10 [facility] Comment on above: Performed By: #### L IP, CDP, CP #### [facility] [address] [place], [place] [address] Diaphragm Builder: Jesse Curry MD Basophils/100 WBC (Bld) 0 % Normal 0-2 [facility] Comment on above: Performed By: #### L IP, CDP, CP #### [address] [place], [place] [address] Diaphragm Builder: Jesse Curry MD Eosinophils (Bld) [#/Vol] 0.16 10*3/uL Normal 0.00-0.44 [facility] Comment on above: Performed By: #### L IP, CDP, CP #### [address] [place], [place] [address] Diaphragm Builder: Jesse Curry MD Eosinophils/100 WBC (Bld) 1 % Normal 1-4 [facility] Comment on above: Performed By: #### L IP, CDP, CP #### [address] [place], [facility] Diaphragm Builder: Jesse Curry MD Erythrocyte distribution width (RBC) [Ratio] 13.6 % Normal 11.8-14.4 [facility] Comment on above: Performed By: #### L IP, CDP, CP #### [address] [place], [place] [address] Diaphragm Builder: Jesse Curry MD Hematocrit (Bld) [Volume fraction] 46.4 % Normal 36.3-47.1 [facility] Comment on above: Performed By: #### L IP, CDP, CP #### [address] [place], [facility] Diaphragm Builder: Jesse Curry MD Hemoglobin (Bld) [Mass/Vol] 15.6 g/dL High 11.9-15.1 [facility] Comment on above: Performed By: #### L IP, CDP, CP #### [facility] [address] [place], [place] [id number] Diaphragm Builder: Jesse Curry MD Immature granulocytes/100 WBC (Bld) 0 % Normal 0 [facility] Comment on above: Performed By: #### L IP, CDP, CP #### [address] [place], [facility] Diaphragm Builder: Jesse Curry MD Lymphocytes (Bld) [#/Vol] 0.98 10*3/uL Low 1.10-3.70 [facility] Comment on above: Performed By: #### L IP, CDP, CP #### [address] [place], [facility] Diaphragm Builder: Jesse Curry MD Lymphocytes/100 WBC (Bld) 7 % Low 24-43 [facility] Comment on above: Performed By: #### L IP, CDP, CP #### [address] [place], [facility] Diaphragm Builder: Jesse Curry MD MCH (RBC) [Entitic mass] 30.4 pg Normal 25.2-33.5 [facility] Comment on above: Performed By: #### L IP, CDP, CP #### [address] [place], [facility] Diaphragm Builder: Jesse Curry MD MCHC (RBC) [Mass/Vol] 33.6 g/dL Normal 28.4-34.8 [facility] Comment on above: Performed By: #### L IP, CDP, CP #### [address] [place] [address] Diaphragm Builder: Jesse Curry MD MCV (RBC) [Entitic vol] 90.3 fL Normal 82.6-102.9 [facility] Comment on above: Performed By: #### L IP, CDP, CP #### [address] [place], [facility] Diaphragm Builder: Jesse Curry MD Monocytes (Bld) [#/Vol] 0.58 10*3/uL Normal 0.10-1.20 [facility] Comment on above: Performed By: #### L IP, CDP, CP #### [facility] [address] [place], [facility] Diaphragm Builder: Jesse Curry MD Monocytes/100 WBC (Bld) 4 % Normal 3-12 [facility] Comment on above: Performed By: #### L IP, CDP, CP #### [address] [place], [place] [address] Diaphragm Builder: Jesse Curry MD Neutrophil (Seg) 88 % High 36-65 [facility] Comment on above: Performed By: #### L IP, CDP, CP #### [address] [place], [facility] Diaphragm Builder: Jesse Curry MD NRBC Automated 0.0 per 100 WBC Normal 0.0 [facility] Comment on above: Performed By: #### L IP, CDP, CP #### [address] [place], [facility] Diaphragm Builder: Jesse Curry MD Platelet mean volume (Bld) [Entitic vol] 9.9 fL Normal 8.1-13.5 [facility] Comment on above: Performed By: #### L IP, CDP, CP #### [address] [place], [facility] Diaphragm Builder: Jesse Curry MD Platelets (Bld) [#/Vol] 299 10*3/uL Normal 138-453 [facility] Comment on above: Performed By: #### L IP, CDP, CP #### [facility] [address] [place], [facility] Diaphragm Builder: Jesse Curry MD RBC (Bld) [#/Vol] 5.14 10*6/uL High 3.95-5.11 [facility] Comment on above: Performed By: #### L BJ BUCK, CP #### [facility] [address] [place], [place] [id number] Diaphragm Builder: Jesse Curry MD WBC (Bld) [#/Vol] 14.3 10*3/uL High 3.5-11.3 [facility] Comment on above: Performed By: #### L BJ BUCK, CP #### [facility] [address] [place] [address] Diaphragm Builder: Jesse Curry MD CT ABDOMEN PELVIS W [...] A Maldonado DO 09/22/22 Final result Normal [facility] Comp Metabolic Profon 2021 Albumin [Mass/Vol] 4.7 g/dL Normal 3.5-5.2 [facility] Comment on above: Performed By: #### L IP, CDP, CP #### [facility] [address] [place] [address] Diaphragm Builder: Jesse Curry MD Albumin/Glob Ratio 2.0 Normal 1.0-2.5 [facility] Comment on above: Performed By: #### L IP, CDP, CP #### [address] [place] [address] Diaphragm Builder: Jesse Curry MD Alkaline Phos 77 U/L Normal 35-104 [facility] Comment on above: Performed By: #### L IP, CDP, CP #### [address] [place] [address] Diaphragm Builder: Jesse Curry MD ALT [Catalytic activity/Vol] 10 U/L Normal 5-33 [facility] Comment on above: Performed By: #### L IP, CDP, CP #### [facility] [address] [place] [address] Diaphragm Builder: Jesse Curry MD Anion gap [Moles/Vol] 12 mmol/L Normal 9-17 [facility] Comment on above: Performed By: #### L IP, CDP, CP #### [facility] [address] [place] [address] Diaphragm Builder: Jesse Curry MD AST [Catalytic activity/Vol] 14 U/L Normal <32 [facility] Comment on above: Performed By: #### L IP, CDP, CP #### [facility] [address] [place], [place] [id number] Diaphragm Builder: Jesse Curry MD Bilirubin [Mass/Vol] 0.6 mg/dL Normal 0.3-1.2 [facility] Comment on above: Performed By: #### L IP, CDP, CP #### [facility] [address] [place], [place] [id number] Diaphragm Builder: Jesse Curry MD BUN/CRE Ratio 31 High 9-20 [facility] Comment on above: Performed By: #### L IP, CDP, CP #### [address] [place], [place] [id number] Diaphragm Builder: Jesse Curry MD Calcium [Mass/Vol] 9.8 mg/dL Normal 8.6-10.4 [facility] Comment on above: Performed By: #### L IP, CDP, CP #### [facility] [address] [place] [address] Dr[place], [place] [id number] Diaphragm Builder: Jesse Curry MD Chloride [Moles/Vol] 104 mmol/L Normal 98-107 [facility] Comment on above: Performed By: #### L IP, CDP, CP #### [address] [place], [place] [id number] Diaphragm Builder: Jesse Curry MD CO2 [Moles/Vol] 22 mmol/L Normal 20-31 [facility] Comment on above: Performed By: #### L IP, CDP, CP #### [facility] [address] [place] [address] Dr[place], [place] [id number] Diaphragm Builder: Jesse Curry MD Creatinine [Mass/Vol] 0.85 mg/dL Normal 0.50-0.90 [facility] Comment on above: Performed By: #### L IP, CDP, CP #### [facility] [address] [place] [address] Dr[place], [place] [id number] Diaphragm Builder: Jesse Curry MD GFR/1.73 sq M.predicted among non-blacks MDRD (S/P/Bld) [Vol rate/Area] mL/min/{1.73_m2} Normal >60 [facility] Comment on above: Result Comment: [...] renal tubular secretion. Performed By: #### L BJ BUCK, CP #### [address] [place] [address] Diaphragm Builder: Jesse Curry MD Glucose [Mass/Vol] 109 mg/dL High 70-99 [facility] Comment on above: Performed By: #### L BJ BUCK, CP #### [address] [place] [address] Diaphragm Builder: Jesse Curry MD Potassium [Moles/Vol] 4.0 mmol/L Normal 3.7-5.3 [facility] Comment on above: Performed By: #### L CIELO CDP, CP #### [address] [place] [address] Diaphragm Builder: Jesse Curry MD Protein [Mass/Vol] 7.1 g/dL Normal 6.4-8.3 [facility] Comment on above: Performed By: #### L IP CDP, CP #### [address] [place] [address] Diaphragm Builder: Jesse Curry MD Sodium [Moles/Vol] 138 mmol/L Normal 135-144 [facility] Comment on above: Performed By: #### L IP, CDP, CP #### [address] [place] [address] Diaphragm Builder: Jesse Curry MD Urea nitrogen [Mass/Vol] 26 mg/dL High 6-20 [facility] Comment on above: Performed By: #### L BJ BUCK, CP #### [facility] [address] [place] [address] Diaphragm Builder: Jesse Curry MD HCG, ,Urineon 09-22 Beta HCG ( test) Ql (U) Negative Normal NEG [facility] Comment on above: Result Comment: Spec imens with hCG levels near the threshold of the test (25 mIU/mL) may give a negative or indeterminate result. In such cases, another test should be performed with a new specimen in 48-72 hours. If early is suspected clinically in this setting, correlation with quantitative serum b-hCG level is suggested. [facility] has confirmed the use of plasma for this test. This has not been cleared or approved by the [place]. Food and Drug Administration. The FDA has determined that such clearance is not necessary. Performed By: #### U HCG #### [facility] [address] [place] [address] Diaphragm Builder: Jesse Curry MD Lactic Acidon 5 Lactate [Moles/Vol] 1.8 mmol/L Normal 0.5-2.2 [facility] Comment on above: Performed By: #### L ACTIC #### [facility] [address] [place] [address] Diaphragm Builder: Jesse Curry MD Lipaseon 1 Lipase [Catalytic activity/Vol] 39 U/L Normal 13-60 [facility] Comment on above: Performed By: #### L BJ BUCK, CP #### [facility] [address] [place] [address] Diaphragm Builder: Jesse Curry MD UA w/Reflex Cultureon 2021 Bilirubin, SemiQt,Ur Negative Normal NEG [facility] Comment on above: Performed By: #### U MICAO, UAX #### [facility] [address] [place], [place] [id number] Diaphragm Builder: Jesse Curry MD Blood, Urine Negative Normal NEG [facility] Comment on above: Performed By: #### U MICAO, UAX #### [facility] [address] [place] [address] Dr[place], [place] [phone] Diaphragm Builder: Jesse Curry MD Clarity (U) Clear Normal CLEAR [facility] Comment on above: Performed By: #### U MICAO, UAX #### [facility] [address] [place], [place] [id number] Diaphragm Builder: Jesse Curry MD Color (U) Yellow Normal YEL [facility] Comment on above: Performed By: #### U MICAO, UAX #### [facility] [address] [place] [address] Dr[place], [place] [id number] Diaphragm Builder: Jesse Curry MD Glucose Ql (U) Negative Normal NEG [facility] Comment on above: Performed By: #### U MICAO, UAX #### [address] [place], [place] 9324083 Diaphragm Builder: Jesse Curry MD Ketones Ql (U) Negative Normal NEG [facility] Comment on above: Performed By: #### U MICAO, UAX #### [facility] [address] [place] [address] Dr[place], [place] [id number] Diaphragm Builder: Jesse Curry MD Leukocyte esterase Test strip Ql (U) Negative Normal NEG [facility] Comment on above: Performed By: #### U MICAO, UAX #### [address] [place], [place] [id number] Diaphragm Builder: Jesse Curry MD Nitrite,Ur Negative Normal NEG [facility] Comment on above: Performed By: #### U MICAO, UAX #### [facility] [address] [place] [address] Dr[place], [place] [id number] Diaphragm Builder: Jesse Curry MD PH,Ur 8.0 Normal 5.0-9.0 [facility] Comment on above: Performed By: #### U MICAO, UAX #### [facility] [address] [place] [address] Dr. [place], [place] [id number] Diaphragm Builder: Jesse Curry MD Protein Ql (U) Negative Normal NEG [facility] Comment on above: Performed By: #### U MICAO, UAX #### [address] [place], [place] [id number] Diaphragm Builder: Jesse Curry MD Spec. [place],Ur 1.020 Normal 1.010-1.020 [facility] Comment on above: Performed By: #### U MICAO, UAX #### [facility] [address] [place] [address] Dr[place], [place] [id number] Diaphragm Builder: Jesse Curry MD Urobilinogen,Ur Normal Normal NORM [facility] Comment on above: Performed By: #### U MICAO, UAX #### [address] [place], [place] [phone] Diaphragm Builder: Jesse Curry MD Urinalysis,Microon 2 Bacteria TRACE Abnormal NONE [facility] Comment on above: Performed By: #### U MICAO, UAX #### [facility] [address] [place] [address] Dr[place], [place] [id number] Diaphragm Builder: Jesse Curry MD Epithelial cells LM Ql (Urine sed) 0 TO 2 Normal 0-25 [facility] Comment on above: Performed By: #### U MICAO, UAX #### [facility] [address] [place] [address] Diaphragm Builder: Jesse Curry MD Urine RBC's None Normal 0-2 [facility] Comment on above: Performed By: #### U MICAO, UAX #### [facility] [address] [place], [place] [phone] Diaphragm Builder: Jesse Curry MD Urine WBC's 0 TO 2 Normal 0-5 [facility] Comment on above: Performed By: #### U DARIO, UAX #### [facility] [address] [place] [address] Diaphragm Builder: Jesse Curry MD CBC AUTO DIFFon 02-20-2022 BASO # 0.1 103/ul Normal 0.0-0.[address] [facility] Comment on above: Performed By: #### C BC #### [facility] [address] [place] [address] Dr. Claire Mayes Basophils/100 WBC (Bld) 0.8 % Normal 0.2-2.[address] [facility] Comment on above: Performed By: #### C BC #### [facility] [address] [place] [address] Dr. Claire Mayes EO # 0.2 103/ul Normal 0.0-0.[address] [facility] Comment on above: Performed By: #### C BC #### [facility] [address] [place] [address] Dr. Claire Mayes Eosinophils/100 WBC (Bld) 0.9 % Normal 0.9-7.[address] [facility] Comment on above: Performed By: #### C BC #### [facility] [address] [place] [address] Dr. Claire Mayes Erythrocyte distribution width (RBC) [Ratio] 15.0 % Normal 11.0-15.[address] [facility] Comment on above: Performed By: #### C BC #### [facility] [address] [place] [address] Dr. Claire Mayes Hematocrit (Bld) [Volume fraction] 31.3 % Critically low 36.0-48.[address] [facility] Comment on above: Performed By: #### C BC #### [facility] [address] [place] [address] Dr. Claire Mayes Hemoglobin (Bld) [Mass/Vol] 10.3 g/dL Critically low 12.0-16.[address] [facility] Comment on above: Performed By: #### C BC #### [facility] [address] [place] [address] Dr. Claire Mayes IG # 0.21 10e3/ul Critically high 0.00-0.03 [facility] Comment on above: Performed By: #### C BC #### [facility] [address] [address] [address] Claire Mayes IG % 1.3 % Critically high 0.0-0.5 [facility] Comment on above: Performed By: #### C BC #### [facility] [address] [place] [address] Dr. Claire Mayes LYMPH # 2.1 103/ul Normal 1.2-3.[address] [facility] Comment on above: Performed By: #### C BC #### [facility] [address] [place] [address] Dr. Claire Mayes Lymphocytes/100 WBC (Bld) 12.6 % Critically low 20.5-60.[address] [facility] Comment on above: Performed By: #### C BC #### [facility] [address] [place] [address] Dr. Calire Mayes MANUAL DIFF REQ NO Normal [facility] Comment on above: Performed By: #### C BC #### [facility] [address] [place] [address] Dr. Claire Mayes MCH (RBC) [Entitic mass] 29.8 pg Normal 26.7-34.[address] [facility] Comment on above: Performed By: #### C BC #### [facility] [address] [place] [address] Dr. Claire Mayes MCHC (RBC) [Mass/Vol] 32.9 g/dL Normal 29.9-35.[address] [facility] Comment on above: Performed By: #### C BC #### [facility] [address] [place] [address] Dr. Claire Mayes MCV (RBC) [Entitic vol] 90.5 fL Normal 81.0-99.[address] [facility] Comment on above: Performed By: #### C BC #### [facility] [address] [place] [address] Dr. Claire Mayes MONO # 0.8 103/ul Normal 0.3-0.8 [facility] Comment on above: Performed By: #### C BC #### [facility] [address] [place] [address] Dr. Claire Mayes Monocytes/100 WBC (Bld) 5.1 % Normal 1.7-12.[address] [facility] Comment on above: Performed By: #### C BC #### [facility] [address] [place] [address] Dr. Claire Mayes NEUT # 13.2 103/ul Critically high 1.4-6.5 [facility] Comment on above: Performed By: #### C BC #### [facility] [address] [place] [address] Dr. Claire Mayes Neutrophils/100 WBC (Bld) 79.3 % Critically high 43.0-75.0 [facility] Comment on above: Performed By: #### C BC #### [facility] [address] [place] [address] Dr. Claire Mayes Platelet mean volume (Bld) [Entitic vol] 10.4 fL Normal 9.5-13.5 [facility] Comment on above: Performed By: #### C BC #### [facility] [address] [place] [address] Dr. Claire Mayes PLT 233 103/ul Normal 150-450 [facility] Comment on above: Performed By: #### C BC #### [facility] [address] [place] [address] Dr. Claire Mayes RBC 3.46 106/ul Critically low 4.20-5.40 [facility] [place] Comment on above: Performed By: #### C BC #### [facility] [address] [place] [address] Dr. Claire Mayes WBC 16.6 103/ul Critically high 4.0-11.0 [facility] Comment on above: Performed By: #### C BC #### [facility] [address] [address] [address] Claire Mayes CBC AUTO DIFFon 02-18-2022 BASO # 0.1 103/ul Normal 0.0-0.[address] [facility] Comment on above: Performed By: #### C BC #### [facility] [address] [place] [address] Dr. Claire Mayes Basophils/100 WBC (Bld) 0.7 % Normal 0.2-2.[address] [facility] Comment on above: Performed By: #### C BC #### [facility] [address] [place] [address] Dr. Claire Mayes EO # 0.2 103/ul Normal 0.0-0.[address] [facility] Comment on above: Performed By: #### C BC #### [facility] [address] [place] [address] Dr. Claire Mayes Eosinophils/100 WBC (Bld) 1.2 % Normal 0.9-7.[address] [facility] Comment on above: Performed By: #### C BC #### [facility] [address] [place] [address] Dr. Claire Mayes Erythrocyte distribution width (RBC) [Ratio] 15.0 % Normal 11.0-15.[address] [facility] Comment on above: Performed By: #### C BC #### [facility] [address] [place] [address] Dr. Claire Mayes Hematocrit (Bld) [Volume fraction] 35.1 % Critically low 36.0-48.[address] [facility] Comment on above: Performed By: #### C BC #### [facility] [address] [place] [address] Dr. Claire Mayes Hemoglobin (Bld) [Mass/Vol] 11.8 g/dL Critically low 12.0-16.[address] [facility] Comment on above: Performed By: #### C BC #### [facility] [address] [place] [address] Dr. Claire Mayes IG # 0.30 10e3/ul Critically high 0.00-0.03 [facility] Comment on above: Performed By: #### C BC #### [facility] [address] [place] [address] Dr. Claire Mayes IG % 1.9 % Critically high 0.0-0.5 [facility] Comment on above: Performed By: #### C BC #### [facility] [address] [place] [address] Dr. Claire Mayes LYMPH # 2.9 103/ul Normal 1.2-3.[address] [facility] Comment on above: Performed By: #### C BC #### [facility] [address] [place] [address] Dr. Claire Mayes Lymphocytes/100 WBC (Bld) 18.5 % Critically low 20.5-60.[address] [facility] Comment on above: Performed By: #### C BC #### [facility] [address] [place] [address] Dr. Claire Mayes MANUAL DIFF REQ NO Normal [facility] Comment on above: Performed By: #### C BC #### [facility] [address] [place] [address] Dr. Claire Mayes MCH (RBC) [Entitic mass] 30.2 pg Normal 26.7-34.[address] [facility] Comment on above: Performed By: #### C BC #### [facility] [address] [place] [address] Dr. Claire Mayes MCHC (RBC) [Mass/Vol] 33.6 g/dL Normal 29.9-35.[address] [facility] Comment on above: Performed By: #### C BC #### [facility] [address] [place] [address] Dr. Claire Mayes MCV (RBC) [Entitic vol] 89.8 fL Normal 81.0-99.[address] [facility] Comment on above: Performed By: #### C BC #### [facility] [address] [place] [address] Dr. Claire Mayes MONO # 0.7 103/ul Normal 0.3-0.[address] [facility] Comment on above: Performed By: #### C BC #### [facility] [address] [address] [address] Claire Mayes Monocytes/100 WBC (Bld) 4.7 % Normal 1.7-12.[address] [facility] Comment on above: Performed By: #### C BC #### [facility] [address] [address] [address] Claire Mayes NEUT # 11.3 103/ul Critically high 1.4-6.5 [facility] Comment on above: Performed By: #### C BC #### [facility] [address] [address] [address] Claire aMyes Neutrophils/100 WBC (Bld) 73.0 % Normal 43.0-75.[address] [facility] Comment on above: Performed By: #### C BC #### [facility] [address] [place] [address] Dr. Claire Mayes Platelet mean volume (Bld) [Entitic vol] 10.8 fL Normal 9.5-13.[address] [facility] Comment on above: Performed By: #### C BC #### [facility] [address] [place] [address] Dr. Claire Mayes PLT 233 103/ul Normal 150-450 [facility] Comment on above: Performed By: #### C BC #### [facility] [address] [place] [address] Dr. Claire Mayes RBC 3.91 106/ul Critically low 4.20-5.40 [facility] Comment on above: Performed By: #### C BC #### [facility] [address] [address] [address] Claire Mayes WBC 15.5 103/ul Critically high 4.0-11.0 [facility] Comment on above: Performed By: #### C BC #### [facility] [address] [place] [address] Dr. Claire Mayes Covid-19 PCR ([facility])on SARS-CoV-2 (COVID-19) RNA FERDINAND+probe Ql (Unsp spec) Not detected Normal NOT DETECTED [facility] Comment on above: Result Comment: When diagnostic [...] for this test is supported by the [place] of [employer] and Human Service's declaration that [...] used). Performed By: #### C VDTBH #### [facility] [address] [place] [address] Dr. Claire Mayes DRUG SCREEN RAPID (URINE)on 02-18-2022 AMP Negative Normal NEGATIVE [facility] Comment on above: Performed By: #### D RUGRPD #### [facility] [address] [place] [address] Dr. Claire Mayes BAR Negative Normal NEGATIVE [facility] Comment on above: Performed By: #### D RUGRPD #### [facility] [address] [place] [address] Dr. Claire Mayes BUP Negative Normal NEGATIVE [facility] Comment on above: Performed By: #### D RUGRPD #### [facility] [address] [place] [address] Dr. Claire Mayes BZO Negative Normal NEGATIVE [facility] Comment on above: Performed By: #### D RUGRPD #### [facility] [address] [place] [address] Dr. Claire Mayes KIT Negative Normal NEGATIVE [facility] Comment on above: Performed By: #### D RUGRPD #### [facility] [address] [place] [address] Dr. Claire Mayes CUT-OFFS SEE BELOW Normal [facility] Comment on above: Result Comment: AMP [...] ng/mL Performed By: #### D RUGRPD #### [facility] [address] [place] [address] Dr. Claire Mayes DRUG CUT HEADER DRUG CLASS TEST SYST EM CUT-OFF CONCENTRATIONS ARE FOLLOWS: Normal [facility] Comment on above: Performed By: #### D RUGRPD #### [facility] [address] [place] [address] Dr. Claire Mayes mAMP Negative Normal NEGATIVE [facility] Comment on above: Performed By: #### D RUGRPD #### [facility] [address] [place] [address] Dr. Claire Mayes MTD Negative Normal NEGATIVE [facility] Comment on above: Performed By: #### D RUGRPD #### [facility] [address] [place] [address] Dr. Claire Mayes OPI Negative Normal NEGATIVE [facility] Comment on above: Performed By: #### D RUGRPD #### [facility] [address] [place] [address] Dr. Claire Mayes OXY Negative Normal NEGATIVE [facility] Comment on above: Performed By: #### D RUGRPD #### [facility] [address] [place] [address] Dr. Claire Mayes PCP Negative Normal NEGATIVE [facility] Comment on above: Performed By: #### D RUGRPD #### [facility] [address] [address] [address] Claire Mayes PPX Negative Normal NEGATIVE [facility] Comment on above: Performed By: #### D RUGRPD #### [facility] [address] [address] [address] Claire Mayes TCA Negative Normal NEGATIVE [facility] Comment on above: Performed By: #### D RUGRPD #### [facility] [address] [place] [address] Dr. Claire Mayes THC Negative Normal NEGATIVE [facility] Comment on above: Performed By: #### D RUGRPD #### [facility] [address] [place] [address] Dr. Claire Mayes TYPE AND SCREENon 02-18-2022 TYPE AND SCREEN Negative Normal [facility] Comment on above: Performed By: #### T NS #### [facility] Laboratory [address] [place] [address] Dr. Claire Mayes US PREG BIOPHY W [...] by: JESSE THOMAS Date: 2022-02-17 14:[address] [facility] US PREG BIOPHY W NON STRESSo [...] by: BLU FELIPE Date: 2022-02-10 16:[address] [facility] GROUP B STREP CULTUREon 01-14 S. agalactiae Ag Ql (Unsp spec) Culture Observations: Beta Strep called to Belgica Lange at office 02/04/22 @[address] [place] [address] Isolate 1 Streptococcus agalactiae Heavy growth of ORGANISM 1 Streptococcus agalactiae ANTIBIOTIC M.I.C RX STATUS Benzylpenicillin <=0.06 S F Ampicillin <=0.25 S F Cefotaxime <=0.12 S F Ceftriaxone <=0.12 S F Levofloxacin 0.5 S F Erythromycin 2 R F Clindamycin <=0.25 S F Linezolid <=2 S F Vancomycin 0.5 S F Tetracycline >=16 R F Normal [facility] Comment on above: Performed By: #### G BSCX #### [facility] [address] [place] [address] Dr. 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 Hx: LMP: 05/29/21 Menstrual cycles: Have been fairly regular for the past 3 months; 30-35 days Pap smear: 2018, up to date Mammogram: None PMH/Surg Hx/Social Hx: See below Hx of Clotting disorders: Yes- Protein S deficiency Currently on Lovenox 40 mg daily Was on Lovenox 60 mg daily prior to Needs to be on therapeutic dosing when Genetic Screening Hx: EVault screen negative Partner History: Franklin WOMACK 04/09/1990 SA in past year: 2.8 cc 125 mil/mL 69% motility QPO=181 million (recent IUI sample) Morph from original SA was 2.8% Active Problems Problems 16 weeks gest (more content not included)... Normal Touchworks CBC AND DIFFERENTIALon 08-06 % AUTOMATED IMMATURE GRAN 0.3 % Normal 0.0 - 0.9 [facility] Comment on above: Result Comment: Graciela ture Granulocyte Count (IG) includes promyelocytes, myelocytes and metamyelocytes but does not include bands. Percent differential counts (%) should be interpreted in the context of the absolute cell counts (cells/L). Performed By: #### C BCDF #### [address] [place] [address] Basophils (Bld) [#/Vol] 0.09 10*3/uL Normal 0.00 - 0.10 [facility] [place] Comment on above: Performed By: #### C BCDF #### [address] [place] [address] Basophils/100 WBC (Bld) 0.9 % Normal 0.0 - 2.0 [facility] [place] Comment on above: Performed By: #### C BCDF #### [address] [place] [address] Eosinophils (Bld) [#/Vol] 0.23 10*3/uL Normal 0.00 - 0.70 [facility] [place] Comment on above: Performed By: #### C BCDF #### [address] [place] [address] Eosinophils/100 WBC (Bld) 2.4 % Normal 0.0 - 6.0 [facility] [place] Comment on above: Performed By: #### C BCDF #### [address] [place] [address] Erythrocyte distribution width (RBC) [Ratio] 14.3 % Normal 11.5 - 14.5 [facility] [place] Comment on above: Performed By: #### C BCDF #### [address] [place] [address] Hematocrit (Bld) [Volume fraction] 40.4 % Normal 36.0 - 46.0 [facility] [place] Comment on above: Performed By: #### C BCDF #### [address] [place] [address] Hemoglobin (Bld) [Mass/Vol] 12.9 g/dL Normal 12.0 - 16.0 [facility] [place] Comment on above: Performed By: #### C BCDF #### [address] [place] [address] Lymphocytes (Bld) [#/Vol] 2.44 10*3/uL Normal 1.20 - 4.80 [facility] [place] Comment on above: Performed By: #### C BCDF #### [address] [place] [address] Lymphocytes/100 WBC (Bld) 25.7 % Normal 13.0 - 44.0 [facility] [place] Comment on above: Performed By: #### C BCDF #### [address] [place] [address] MCHC (RBC) [Mass/Vol] 31.9 g/dL Low 32.0 - 36.0 [facility] [place] Comment on above: Performed By: #### C BCDF #### [address] [place] [address] MCV (RBC) [Entitic vol] 88 fL Normal 80 - 100 [facility] [place] Comment on above: Performed By: #### C BCDF #### [address] [place] [address] Monocytes (Bld) [#/Vol] 0.55 10*3/uL Normal 0.10 - 1.00 [facility] [place] Comment on above: Performed By: #### C BCDF #### [address] [place] [address] Monocytes/100 WBC (Bld) 5.8 % Normal 2.0 - 10.0 [facility] [place] Comment on above: Performed By: #### C BCDF #### [address] [place] [address] Neutrophils (Bld) [#/Vol] 6.15 10*3/uL Normal 1.20 - 7.70 [facility] [place] Comment on above: Performed By: #### C BCDF #### [address] [place] [address] Neutrophils/100 WBC (Bld) 64.9 % Normal 40.0 - 80.0 [facility] [place] Comment on above: Performed By: #### C BCDF #### [address] [place] [address] Platelets (Bld) [#/Vol] 410 10*3/uL Normal 150 - 450 [facility] [place] Comment on above: Performed By: #### C BCDF #### [address] [place] [address] RBC (Bld) [#/Vol] 4.58 x10E12/L Normal 4.00 - 5.20 [facility] [place] Comment on above: Performed By: #### C BCDF #### [address] [place] [address] WBC (Bld) [#/Vol] 9.5 10*3/uL Normal 4.4 - 11.3 [facility] Comment on above: Performed By: #### C BCDF #### [address] [place] [address] HANDICAPPED TEACHER - Visiton 08-06-2020 HANDICAPPED TEACHER - Visit Chief Complaint The patient is [...] with LMWH and has follow-up with her Cardiology Specialist 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 Reports her asthma is stable. [...] or homicidal ideation Vitals Vital Signs Recorded: [id number] 01:08PM Heart Rate62 Dfgslysq428 Ogykuimid89 Height5 ft 2 in Mfvzjq523 lb BMI Plfwfxzkwh01.28 BSA Calculated1.79 Tobacco Useb) No Fall Screeninga) [...] ongoing well-woman care with her current local Sheet Taker. She has Hematology follow-up today following our [...] Aug 06 2020 2:00PM EST (Author) Normal Touchworks Complete Blood Count + Diffe marc 06-27-2020 Basophils/100 WBC (Bld) 0.5 % 0.0 - 2.0 TX-RDNWV-Hjuma[address] Work Phone: Eosinophils (Bld) [#/Vol] 0.24 {x10E9/L} See Below TH-KLTWM-Nxuiw[address] Work Phone: Comment on above: Reference Range: 0.0 0 - 0.70 Eosinophils/100 WBC (Bld) 1.1 % 0.0 - 6.0 JM-VZTKM-Dkjms[address] Work Phone: Erythrocyte distribution width (RBC) [Ratio] 15.0 % above high threshold See Below UQ-WUEXS-Xtlcf[address] Work Phone: Comment on above: Reference Range: 11. 5 - 14.5 Hematocrit (Bld) [Volume fraction] 30.0 % below low threshold See Below SY-TAJHK-Tmaay[address] Work Phone: Comment on above: Reference Range: 36. 0 - 46.0 Hemoglobin (Bld) [Mass/Vol] 9.8 g/dL below low threshold See Below LY-EKRKV-Tozcb[address] Work Phone: Comment on above: Reference Range: 12. 0 - 16.0 Lymphocytes (Bld) [#/Vol] 2.25 {x10E9/L} See Below UW-XQAED-Qnzkz wn 2nd Fl Work Phone: Comment on above: Reference Range: 1.2 0 - 4.80 Lymphocytes/100 WBC (Bld) 10.4 % See Below VD-RXGWI-Ckbid wn 2nd Fl Work Phone: Comment on above: Reference Range: 13. 0 - 44.0 MCHC (RBC) [Mass/Vol] 32.7 g/dL See Below OK-YZSPY-Edrcu wn 2nd Fl Work Phone: Comment on above: Reference Range: 32. 0 - 36.0 MCV (RBC) [Entitic vol] 91 fL 80 - 100 FL-QZMAR-Lrdbs wn 2nd Fl Work Phone: Monocytes (Bld) [#/Vol] 0.84 {x10E9/L} See Below SN-LAHLD-Hguak wn 2nd Fl Work Phone: Comment on above: Reference Range: 0.1 0 - 1.00 Monocytes/100 WBC (Bld) 3.9 % 2.0 - 10.0 NP-XXFGR-Qtglj wn 2nd Fl Work Phone: Neutrophils/100 WBC (Bld) 82.7 % See Below CV-AAFBI-Wdurd wn 2nd Fl Work Phone: Comment on above: Reference Range: 40. 0 - 80.0 Platelets (Bld) [#/Vol] 225 {x10E9/L} 150 - 450 BX-ZPSHE-Mocsi wn 2nd Fl Work Phone: RBC (Bld) [#/Vol] 3.31 {x10E12/L} below low threshold See Below YV-YDOZW-Piwvw wn 2nd Fl Work Phone: Comment on above: Reference Range: 4.0 0 - 5.20 WBC (Bld) [#/Vol] 0.0 {/100_WBC} 0.0-0.0 MG- OBGYN-[facility] wn 2nd Fl Work Phone: WBC (Bld) [#/Vol] 21.6 {x10E9/L} above high threshold 4.4 - 11.3 JA-VBQVQ-Erhmi[address] Work Phone: Complete Blood Count + Differential 0.11 {x10E9/L} above high threshold See Below VD-CPXZK-Jwaly[address] Work Phone: Comment on above: Reference Range: 0.0 0 - 0.10 Complete Blood Count + Differential 1.4 % above high threshold 0.0 - 0.9 ZY-XVNSJ-Hlqit[address] Work Phone: Comment on above: Immature Granulocyte Count (IG) includes promyelocytes, myelocytes and metamyelocytes but does not include bands. Percent differential counts (%) should be interpreted in the context of the absolute cell counts (cells/L). Complete Blood Count + Differential 17.85 {x10E9/L} above high threshold See Below AX-KSFTY-Fgflj[address] Work Phone: Comment on above: Reference Range: 1.2 0 - 7.70 Hematologyon 06-26-2020 Hematocrit (Bld) [Volume fraction] 30.5 % below low threshold See Below VD-TOZVX-Qibxp[address] Work Phone: Comment on above: Reference Range: 36. 0 - 46.0 Hemoglobin (Bld) [Mass/Vol] 10.7 g/dL below low threshold See Below VV-HLUPL-Zjvjx[address] Work Phone: Comment on above: Reference Range: 12. 0 - 16.0 MCV (RBC) [Entitic vol] 84 fL 80 - 100 FZ-WSSYQ-Ecngv[address] Work Phone: Platelets (Bld) [#/Vol] 258 {x10E9/L} 150 - 450 CH-SBLUE-Unhtq[address] Work Phone: RBC (Bld) [#/Vol] 3.62 {x10E12/L} below low threshold See Below JO-QJQUT-Sbwec wn 2nd Fl Work Phone: Comment on above: Reference Range: 4.0 0 - 5.20 WBC (Bld) [#/Vol] 0.0 {/100_WBC} 0.0-0.0 MG- OBGYN-Midto 2nd Fl Work Phone: WBC (Bld) [#/Vol] 35.7 {x10E9/L} above high threshold 4.4 - 11.3 HF-WYRWE-Jyxkn wn 2nd Fl Work Phone: Otheron 06-26-2020 Erythrocyte distribution width (RBC) [Ratio] 14.6 % above high threshold See Below EI-LFWQL-Qojyb wn 2nd Fl Work Phone: Comment on above: Reference Range: 11. 5 - 14.5 MCHC (RBC) [Mass/Vol] 35.1 g/dL See Below MS-PUINA-Fislb 2nd Fl Work Phone: Comment on above: [...] 3.5 cm, located 1.0 cm from themargin. Distribution Transformer Assembler sections are submitted in 5 cassettes.AXQ/LMPSummary of Cassettes:Specimen Label SiteA 1 umbilical cord sections 2 membrane rolls 3 placental parenchyma, umbilical cord insertion site 4 placental parenchyma 5 placental parenchyma, lesionaxq/06/26/2020 ZN-KULZO-Glntp wn [address]nd Va Work Phone: Coronavirus 2019 RNA by PCR, Symptomaticon 06-25-2020 Coronavirus 2019 RNA by PCR, Symptomatic NOT DETECTED See Below KA-AFVYI-Knqgl wn [address] Work Phone: Comment on above: SOURCE: Nasal, [...] this test method. Fact sheet for providers: www.fda.gov/media/499517/downloadFact sheet for patients: www.fda.gov/media/426525/downloadThis test has received FDA Emergency Use Authorization (EUA) and has been verified by [facility] ([facility]). This test is only authorized for the duration of time that circumstances exist to justify the authorization of the emergency use of in vitro diagnostic tests for the detection of SARS-CoV-2 virus and/or diagnosis of COVID-19 infection under section 564(b)(1) of the Act, 21 U.S.C. 360bbb-3(b)(1), unless the authorization is terminated or revoked sooner. [facility] is certified under CLIA-88 as qualified to perform high complexity testing. Testing is performed in the [facility] laboratories located at [address] [place] [address]. Hematologyon 06-25-2020 ABO group Nom (Bld) A [address] Work Phone: Blood group antibody screen Ql Negative [address] Work Phone: Hematocrit (Bld) [Volume fraction] 34.7 % below low threshold See Below [address] Work Phone: Comment on above: Reference Range: 36. 0 - 46.0 Hemoglobin (Bld) [Mass/Vol] 11.6 g/dL below low threshold See Below HM-SVEUV-Atgvd[address] Work Phone: Comment on above: Reference Range: 12. 0 - 16.0 MCV (RBC) [Entitic vol] 90 fL 80 - 100 GM-QHKLR-Jfbwf[address] Work Phone: Platelets (Bld) [#/Vol] 268 {x10E9/L} 150 - 450 PY-FAKFH-Dmawc[address] Work Phone: RBC (Bld) [#/Vol] 3.85 {x10E12/L} below low threshold See Below FP-HPGPK-Nnhiq[address] Work Phone: Comment on above: Reference Range: 4.0 0 - 5.20 Rh immune globulin screen (Bld) [Interp] Positive VY-HIVFP-Mmyxr[address] Work Phone: WBC (Bld) [#/Vol] 0.0 {/100_WBC} 0.0-0.0 [facility] Work Phone: WBC (Bld) [#/Vol] 15.5 {x10E9/L} above high threshold 4.4 - 11.3 EQ-VVGEF-Udkvs[address] Work Phone: Otheron 06-25-2020 Erythrocyte distribution width (RBC) [Ratio] 14.4 % See Below YP-THHFF-Bqwjv[address] Work Phone: Comment on above: Reference Range: 11. 5 - 14.5 MCHC (RBC) [Mass/Vol] 33.4 g/dL See Below [address] Work Phone: Comment on above: Reference Range: 32. 0 - 36.0 SYPHILIS SCREENING WITH REFL EXon 06-25-2020 T. pallidum IgG+IgM IA Ql (S) NONREACTIVE See Below [address] Work Phone: Comment on above: SOURCE: Reference Ra nge: NONREACTIVENo significant level of Treponema pallidum antibody detected. Repeat testing in 2 to 4 weeks may be considered if early infection or incubating syphilis infection is suspected. Imm/Pathon 06-07-2020 Bacteria identified Aer cx Nom (Genital specimen) PATIENT: KIARA [place]SHLEY [place] [facility] [id number] : 89 AGE: SEX: F ORDERED BY: PARAS GUEVARA: VAGINAL COLLECTED: 06/07/20 09:36ANTIBIOTICS AT [place].: RECEIVED : 06/08/20 07:27SITE: VAGINAL R E S U L T S GROUP B STREP SCREEN PRELIM 06/09/20 08:35 CULTURE IN PROGRESS. SA-JRSUP-FXK [address] [place] Work Phone: Bacteria identified Aer cx Nom (Genital specimen) PATIENT: KIARA ASHLEY [place] [facility] [place]ILL#: [id number] : 89 AGE: SEX: F ORDERED BY: PARAS GUEVARA: VAGINAL COLLECTED: 06/07/20 09:36ANTIBIOTICS AT [place]EN[place].: RECEIVED : 06/08/20 07:27SITE: VAGINAL R E S U L T S GROUP B STREP SCREEN FINAL 06/10/20 11:54 NEGATIVE FOR GROUP B BETA STREP. WN-YQWCK-Qggmr wn 2nd Fl Work Phone: Otheron 06-07-2020 [...] growth-No malformations were identified on a limited survey-[facility] 06/22 The patient is aware [...] signed by: RILEY TREVIÑO 06/07/20 09:33 Normal JU-EMDPV-UWX [address] [place] Work Phone: Comment on above: ORDER REVISED TO A O B FOLLOW UP OR REPEAT SCAN BY RADIOLOGIST; Original Order Number: [id number] CBC AND DIFFERENTIALon 04-24 % AUTOMATED IMMATURE GRAN 1.9 % High 0.0 - 0.9 [facility] Comment on above: Result Comment: Graciela ture Granulocyte Count (IG) includes promyelocytes, myelocytes and metamyelocytes but does not include bands. Percent differential counts (%) should be interpreted in the context of the absolute cell counts (cells/L). Performed By: #### C BCDF #### [address] [place] [address] Basophils (Bld) [#/Vol] 0.08 10*3/uL Normal 0.00 - 0.10 [facility] Comment on above: Performed By: #### C BCDF #### [address] [place] [address] Basophils/100 WBC (Bld) 0.5 % Normal 0.0 - 2.0 [facility] Comment on above: Performed By: #### C BCDF #### [address] [place] [address] Eosinophils (Bld) [#/Vol] 0.22 10*3/uL Normal 0.00 - 0.70 [facility] Comment on above: Performed By: #### C BCDF #### [address] [place] [address] Eosinophils/100 WBC (Bld) 1.5 % Normal 0.0 - 6.0 [facility] Comment on above: Performed By: #### C BCDF #### [address] [place] [address] Erythrocyte distribution width (RBC) [Ratio] 14.0 % Normal 11.5 - 14.5 [facility] Comment on above: Performed By: #### C BCDF #### [address] [place] [address] Hematocrit (Bld) [Volume fraction] 35.6 % Low 36.0 - 46.0 [facility] Comment on above: Performed By: #### C BCDF #### [address] [place] [address] Hemoglobin (Bld) [Mass/Vol] 11.8 g/dL Low 12.0 - 16.0 [facility] [place] Comment on above: Performed By: #### C BCDF #### [address] [place] [address] Lymphocytes (Bld) [#/Vol] 2.38 10*3/uL Normal 1.20 - 4.80 [facility] [place] Comment on above: Performed By: #### C BCDF #### [address] [place] [address] Lymphocytes/100 WBC (Bld) 16.0 % Normal 13.0 - 44.0 [facility] [place] Comment on above: Performed By: #### C BCDF #### [address] [place] [address] MCHC (RBC) [Mass/Vol] 33.1 g/dL Normal 32.0 - 36.0 [facility] [place] Comment on above: Performed By: #### C BCDF #### [address] [place] [address] MCV (RBC) [Entitic vol] 92 fL Normal 80 - 100 [facility] [place] Comment on above: Performed By: #### C BCDF #### [address] [place] [address] Monocytes (Bld) [#/Vol] 0.74 10*3/uL Normal 0.10 - 1.00 [facility] [place] Comment on above: Performed By: #### C BCDF #### [address] [place] [address] Monocytes/100 WBC (Bld) 5.0 % Normal 2.0 - 10.0 [facility] [place] Comment on above: Performed By: #### C BCDF #### [address] [place] [address] Neutrophils (Bld) [#/Vol] 11.17 10*3/uL High 1.20 - 7.70 [facility] Comment on above: Performed By: #### C BCDF #### [address] [place] [address] Neutrophils/100 WBC (Bld) 75.1 % Normal 40.0 - 80.0 [facility] [place] Comment on above: Performed By: #### C BCDF #### [address] [place] [address] Platelets (Bld) [#/Vol] 285 10*3/uL Normal 150 - 450 [facility] [place] Comment on above: Performed By: #### C BCDF #### [address] [place] [address] RBC (Bld) [#/Vol] 3.89 x10E12/L Low 4.00 - 5.20 [facility] [place] Comment on above: Performed By: #### C BCDF #### [address] [place] [address] WBC (Bld) [#/Vol] 14.9 10*3/uL High 4.4 - 11.3 [facility] Comment on above: Performed By: #### C BCDF #### [address] [place] [address] COMPREHENSIVE PANELon 2019 ALP [Catalytic activity/Vol] 79 U/L Normal 33 - 110 [facility] [place] Comment on above: Performed By: #### C MP #### [address] [place] [address] [address] [place] [address] ALT [Catalytic activity/Vol] 7 U/L Normal 7 - 45 [facility] [place] Comment on above: Result Comment: Melida ents treated with Sulfasalazine may generate falsely decreased results for ALT. Performed By: #### C MP #### [address] [place] [address] [address] [place] [address] AST [Catalytic activity/Vol] 13 U/L Normal 9 - 39 [facility] [place] Comment on above: Performed By: #### C MP #### [address] [place] [address] [place] [address] Bilirubin [Mass/Vol] 0.3 mg/dL Normal 0.0 - 1.2 [facility] [place] Comment on above: Performed By: #### C MP #### [address] [place] [address] [place] [address] Protein [Mass/Vol] 5.9 g/dL Low 6.4 - 8.2 [facility] [place] Comment on above: Performed By: #### C MP #### [address] [place] [address] [place] [address] Anion gap [Moles/Vol] 12 mmol/L Normal 10 - 20 [facility] [place] Comment on above: Performed By: #### C MP #### [address] [place] [address] [place] [address] Chloride [Moles/Vol] 106 mmol/L Normal 98 - 107 [facility] Comment on above: Performed By: #### C MP #### [address] [place] [address] [place] [address] Potassium [Moles/Vol] 3.7 mmol/L Normal 3.5 - 5.3 [facility] [place] Comment on above: Performed By: #### C MP #### [address] [place] [address] [place] [address] Sodium [Moles/Vol] 137 mmol/L Normal 136 - 145 [facility] [place] Comment on above: Performed By: #### C MP #### [address] [place] [address] [place] [address] Calcium [Mass/Vol] 9.2 mg/dL Normal 8.6 - 10.3 [facility] [place] Comment on above: Performed By: #### C MP #### [address] [place] [address] [place] [address] Glucose [Mass/Vol] 95 mg/dL Normal 74 - 99 [facility] Comment on above: Performed By: #### C MP #### [address] [place] [address] [place] [address] Urea nitrogen [Mass/Vol] 7 mg/dL Normal 6 - 23 [facility] [place] Comment on above: Performed By: #### C MP #### [address] [place] [address] [place] [address] Albumin [Mass/Vol] 3.4 g/dL Normal 3.4 - 5.0 [facility] [place] Comment on above: Performed By: #### C MP #### [address] [place] [address] [place] [address] Creatinine [Mass/Vol] 0.70 mg/dL Normal 0.50 - 1.05 [facility] [place] Comment on above: Performed By: #### C MP #### [address] [place] [address] [place] [address] GFR- AM. >60 Normal >60 [facility] [place] Comment on above: Result Comment: CALC ULATIONS OF ESTIMATED GFR ARE PERFORMED USING THE MDRD STUDY EQUATION FOR THE IDMS-TRACEABLE CREATININE METHODS. CLIN CHEM 2007;53:766-72 Performed By: #### C MP #### [address] [place] [address] [place] [address] GFR-NON AM. >60 Normal >60 [facility] [place] Comment on above: Performed By: #### C MP #### [address] [place] [address] [place] [address] HCO3 (Bld) [Moles/Vol] 23 mmol/L Normal 21 - 32 [facility] [place] Comment on above: Performed By: #### C MP #### [address] [place] [address] [place] [address] FERRITINon 04-24-2020 Ferritin [Mass/Vol] 8 ug/L Normal 8 - 150 [facility] [place] Comment on above: Performed By: #### F ERRI #### [address] [place] [address] IRON + TIBCon 04-24-2020 % SATURATION 14 % Low 25 - 45 [facility] Comment on above: Performed By: #### I RONT #### [address] [place] [address] Iron [Mass/Vol] 65 ug/dL Normal 35 - 150 [facility] Comment on above: Performed By: #### I RONT #### [address] [place] [address] TIBC 449 ug/dL High 240 - 445 [facility] Comment on above: Performed By: #### I RONT #### [address] [place] [address] Complete Blood Count + Diffe rentialon 12-25-2019 Basophils/100 WBC (Bld) 1.0 % 0.0 - 2.0 DG-GCMFU-BRO [address] [place] Work Phone: Eosinophils (Bld) [#/Vol] 0.37 {x10E9/L} See Below GY-VHLXS-ZBV [address] [place] Work Phone: Comment on above: Reference Range: 0.0 0 - 0.70 Eosinophils/100 WBC (Bld) 3.0 % 0.0 - 6.0 EH-QCKQV-UTQ [address] [place] Work Phone: Erythrocyte distribution width (RBC) [Ratio] 13.4 % See Below AS-FSLYR-MRI [address] [place] Work Phone: Comment on above: Reference Range: 11. 5 - 14.5 Hematocrit (Bld) [Volume fraction] 41.8 % See Below AX-WDAGL-GRY [address] [place] Work Phone: Comment on above: Reference Range: 36. 0 - 46.0 Hemoglobin (Bld) [Mass/Vol] 13.6 g/dL See Below YP-MZYER-KRD [address] [place] Work Phone: Comment on above: Reference Range: 12. 0 - 16.0 Lymphocytes (Bld) [#/Vol] 2.52 {x10E9/L} See Below JY-OYUNO-IYF 1200 [place] Work Phone: Comment on above: Reference Range: 1.2 0 - 4.80 Lymphocytes/100 WBC (Bld) 20.2 % See Below OY-CEQPA-OFV 1200 [place] Work Phone: Comment on above: Reference Range: 13. 0 - 44.0 MCHC (RBC) [Mass/Vol] 32.5 g/dL See Below WX-AKVVN-JLH 1200 [place] Work Phone: Comment on above: Reference Range: 32. 0 - 36.0 MCV (RBC) [Entitic vol] 95 fL 80 - 100 IP-UMCMY-KPT 1200 [place] Work Phone: Monocytes (Bld) [#/Vol] 0.58 {x10E9/L} See Below HN-QJYVG-QFV 1200 [place] Work Phone: Comment on above: Reference Range: 0.1 0 - 1.00 Monocytes/100 WBC (Bld) 4.6 % 2.0 - 10.0 IQ-NLAAF-QQY 1200 [place] Work Phone: Neutrophils/100 WBC (Bld) 70.6 % See Below PL-AYKIU-EAY 1200 [place] Work Phone: Comment on above: Reference Range: 40. 0 - 80.0 Platelets (Bld) [#/Vol] 372 {x10E9/L} 150 - 450 QW-ZAVUG-HLW 1200 [place] Work Phone: RBC (Bld) [#/Vol] 4.40 {x10E12/L} See Below MG -OBGYN-MAC 1200 [place] Work Phone: Comment on above: Reference Range: 4.0 0 - 5.20 WBC (Bld) [#/Vol] 0.0 {/100_WBC} 0.0-0.0 MG- OBGYN-MAC 1200 [place] Work Phone: WBC (Bld) [#/Vol] 12.7 {x10E9/L} above high threshold 4.4 - 11.3 VF-NSPTB-AGE 1200 [place] Work Phone: Comment on above: SOURCE: Complete Blood Count + Differential 8.81 {x10E9/L} above high threshold See Below UA-ZTWUY-TCN 1200 [place] Work Phone: Comment on above: Reference Range: 1.2 0 - 7.70 Complete Blood Count + Differential 0.6 % 0.0 - 0.9 XX-RJUPS-XVU 1200 [place] Work Phone: Comment on above: Percent differential counts (%) should be interpreted in the context of the absolute cell counts (cells/L). Complete Blood Count + Differential 0.13 {x10E9/L} above high threshold See Below ZQ-NBTZH-GCR 1200 [place] Work Phone: Comment on above: Reference Range: 0.0 0 - 0.10 Cult, Urineon 12-25-2019 Bacteria identified Cx Nom (U) PATIENT: KIARA ASHLEY LOCATION: C0646 BILL#: [id number] : 89 AGE: SEX: F ORDERED BY: PARAS GUEVARA: URINE COLLECTED: 12/25/19 09:41ANTIBIOTICS AT [facility].: RECEIVED : 02/10/20 17:06SITE: Clean Catch/Voided R E S U L T S URINE CULTURE,BACTERIAL FINAL 12/26/19 10:21 NO SIGNIFICANT GROWTH. CA-JAVQD-IBB 1200 [place] Work Phone: Hematologyon 12-25-2019 ABO group Nom (Bld) A OM-QDPDG-JSP 1200 [place] Work Phone: Blood group antibody screen Ql Negative OH-UUDFM-OSB 1200 [place] Work Phone: Rh immune globulin screen (Bld) [Interp] Positive NP-OIBSV-QGK 1200 [place] Work Phone: Hepatitis B Surface Antigeno n 12-25-2019 Hepatitis B Surface Antigen NONREACTIVE See Below KV-MTAOZ-WSQ 1200 [place] Work Phone: Comment on above: [...] Hepatitis C Antibody Test NON-REACTIVE See Below MQ-EJAMY-EKW 1200 [place] Work Phone: Comment on above: SOURCE: Reference Ra nge: NONREACTIVE Patients receiving more than 5 mg/day of biotin may have interference in test results. A sample should be taken no sooner than eight hours after previous dose. Contact the testing laboratory for additional information. Metabolic Panelon 12-25-2019 ALP [Catalytic activity/Vol] 67 U/L 33 - 110 LI-KNMCT-QAA 1200 [place] Work Phone: Anion gap [Moles/Vol] 15 mmol/L 10 - 20 UE-KUMIH-JVO 1200 [place] Work Phone: Bilirubin [Mass/Vol] 0.3 mg/dL 0.0 - 1.2 FA-KVPIR-LBF 1200 [place] Work Phone: Calcium [Mass/Vol] 9.6 mg/dL 8.6 - 10.6 LN-XQKXD-IGD 1200 [place] Work Phone: Chloride [Moles/Vol] 104 mmol/L 98 - 107 WV-TNLWF-DNJ 1200 [place] Work Phone: CO2 [Moles/Vol] 21 mmol/L 21 - 32 MG-OBGYN- MAC 1200 [place] Work Phone: Creatinine [Mass/Vol] 0.69 mg/dL See Below GZ-GVOLC-OXD 1200 [place] Work Phone: Comment on above: Reference Range: 0.5 0 - 1.05 Glucose [Mass/Vol] 83 mg/dL 74 - 99 ZO-EVRZU-XQW 1200 [place] Work Phone: Comment on above: SOURCE: Potassium [Moles/Vol] 4.1 mmol/L 3.5 - 5.3 QA-GTHIJ-RLQ 1200 [place] Work Phone: Protein [Mass/Vol] 6.2 g/dL below low threshold 6.4 - 8.2 BD-DAWFW-XLW 1200 [place] Work Phone: Sodium [Moles/Vol] 136 mmol/L 136 - 145 WN-KGWPV-XOY 1200 [place] Work Phone: Urea nitrogen [Mass/Vol] 9 mg/dL 6 - 23 WC-RFPMW-CKD 1200 [place] Work Phone: Otheron 12-25-2019 Albumin BCP dye [Mass/Vol] 3.9 g/dL 3.4 - 5.0 CP-YKAVW-SXH 1200 [place] Work Phone: ALT With P-5'-P [Catalytic activity/Vol] 8 U/L 7 - 45 YS-FWUTL-DOQ 1200 [place] Work Phone: Comment on above: Patients treated wit h Sulfasalazine may generate falsely decreased results for ALT. AST With P-5'-P [Catalytic activity/Vol] 11 U/L 9 - 39 OG-BWRGQ-CTO 1200 [place] Work Phone: NONE HJ-UDBIM-SGV 1200 [place] Work Phone: >60 >60 WB-TEWSS-KZZ 1200 [place] Work Phone: Comment on above: CALCULATIONS OF MARÍA MATED GFR ARE PERFORMED USING THE MDRD STUDY EQUATION FOR THE IDMS-TRACEABLE CREATININE METHODS. CLIN CHEM 2007;53:766-72 SYPHILIS SCREENING WITH REFL EXon 12-25-2019 T. pallidum IgG+IgM IA Ql (S) NONREACTIVE See Below XW-HDUVF-FTR 1200 [place] Work Phone: Comment on above: SOURCE: Reference Ra nge: NONREACTIVENo significant level of Treponema pallidum antibody detected. Repeat testing in 2 to 4 weeks may be considered if early infection or incubating syphilis infection is suspected. CBC AND DIFFERENTIALon 11-21 % AUTOMATED IMMATURE GRAN 0.9 % Normal 0.0 - 0.9 [facility] [place] Comment on above: Result Comment: Perc ent differential counts (%) should be interpreted in the context of the absolute cell counts (cells/L). Performed By: #### C BCDF #### [address] [place] [address] Basophils (Bld) [#/Vol] 0.16 10*3/uL High 0.00 - 0.10 [facility] [place] Comment on above: Performed By: #### C BCDF #### [address] [place] [address] Basophils/100 WBC (Bld) 1.2 % Normal 0.0 - 2.0 [facility] [place] Comment on above: Performed By: #### C BCDF #### [address] [place] [address] Eosinophils (Bld) [#/Vol] 0.80 10*3/uL High 0.00 - 0.70 [facility] [place] Comment on above: Performed By: #### C BCDF #### [address] [place] [address] Eosinophils/100 WBC (Bld) 5.8 % Normal 0.0 - 6.0 [facility] [place] Comment on above: Performed By: #### C BCDF #### [address] [place] [address] Erythrocyte distribution width (RBC) [Ratio] 13.6 % Normal 11.5 - 14.5 [facility] [place] Comment on above: Performed By: #### C BCDF #### [address] [place] [address] Hematocrit (Bld) [Volume fraction] 39.4 % Normal 36.0 - 46.0 [facility] [place] Comment on above: Performed By: #### C BCDF #### [address] [place] [address] Hemoglobin (Bld) [Mass/Vol] 13.0 g/dL Normal 12.0 - 16.0 [facility] [place] Comment on above: Performed By: #### C BCDF #### [address] [place] [address] Lymphocytes (Bld) [#/Vol] 2.24 10*3/uL Normal 1.20 - 4.80 [facility] [place] Comment on above: Performed By: #### C BCDF #### [address] [place] [address] Lymphocytes/100 WBC (Bld) 16.3 % Normal 13.0 - 44.0 [facility] [place] Comment on above: Performed By: #### C BCDF #### [address] [place] [address] MCHC (RBC) [Mass/Vol] 33.0 g/dL Normal 32.0 - 36.0 [facility] [place] Comment on above: Performed By: #### C BCDF #### [address] [place] [address] MCV (RBC) [Entitic vol] 94 fL Normal 80 - 100 [facility] [place] Comment on above: Performed By: #### C BCDF #### [address] [place] [address] Monocytes (Bld) [#/Vol] 0.83 10*3/uL Normal 0.10 - 1.00 [facility] [place] Comment on above: Performed By: #### C BCDF #### [address] [place] [address] Monocytes/100 WBC (Bld) 6.0 % Normal 2.0 - 10.0 [facility] [place] Comment on above: Performed By: #### C BCDF #### [address] [place] [address] Neutrophils (Bld) [#/Vol] 9.60 10*3/uL High 1.20 - 7.70 [facility] [place] Comment on above: Performed By: #### C BCDF #### [address] [place] [address] Neutrophils/100 WBC (Bld) 69.8 % Normal 40.0 - 80.0 [facility] [place] Comment on above: Performed By: #### C BCDF #### [address] [place] [address] Platelets (Bld) [#/Vol] 380 10*3/uL Normal 150 - 450 [facility] [place] Comment on above: Performed By: #### C BCDF #### [address] [place] [address] RBC (Bld) [#/Vol] 4.21 x10E12/L Normal 4.00 - 5.20 [facility] [place] Comment on above: Performed By: #### C BCDF #### [address] [place] [address] WBC (Bld) [#/Vol] 13.8 10*3/uL High 4.4 - 11.3 [facility] Comment on above: Performed By: #### C BCDF #### [address] [place] [address] Complete Blood Count + Diffe martaon 11-14-2019 Basophils (Bld) [#/Vol] 0.05 {x10E9/L} See Below -Reproductiv e Endocrinology- [place] Work Phone: Comment on above: Reference Range: 0.0 0 - 0.10 Basophils/100 WBC (Bld) 0.4 % 0.0 - 2.0 MP-Reproductiv e Endocrinology- [place] Work Phone: Eosinophils (Bld) [#/Vol] 0.89 {x10E9/L} above high threshold See Below MP-Reproductiv e Endocrinology- [place] Work Phone: Comment on above: Reference Range: 0.0 0 - 0.70 Eosinophils/100 WBC (Bld) 7.3 % 0.0 - 6.0 MP-Reproductiv e Endocrinology- [place] Work Phone: Erythrocyte distribution width (RBC) [Ratio] 13.9 % See Below -Reproductiv e Endocrinology- [place] Work Phone: Comment on above: Reference Range: 11. 5 - 14.5 Hematocrit (Bld) [Volume fraction] 39.4 % See Below -Reproductiv e Endocrinology- [place] Work Phone: Comment on above: Reference Range: 36. 0 - 46.0 Hemoglobin (Bld) [Mass/Vol] 12.8 g/dL See Below -Reproductiv e Endocrinology- [place] Work Phone: Comment on above: Reference Range: 12. 0 - 16.0 Lymphocytes (Bld) [#/Vol] 2.13 {x10E9/L} See Below -Reproductiv e Endocrinology- [place] Work Phone: Comment on above: Reference Range: 1.2 0 - 4.80 Lymphocytes/100 WBC (Bld) 17.5 % See Below MP-Reproductiv e Endocrinology- [place] Work Phone: Comment on above: Reference Range: 13. 0 - 44.0 MCHC (RBC) [Mass/Vol] 32.5 g/dL See Below MP-Reproductiv e Endocrinology- [place] Work Phone: Comment on above: Reference Range: [...] 69.4 % See Below MP-Reproductiv e Endocrinology- [place] 206 Work Phone: Comment on above: Reference Range: 40. 0 - 80.0 Platelets (Bld) [#/Vol] 423 {x10E9/L} 150 - 450 MP-Reproductiv e Endocrinology- [place] Work Phone: RBC (Bld) [#/Vol] 4.15 {x10E12/L} See Below MP -Reproductiv e Endocrinology- [place] 206 Work Phone: Comment on above: Reference Range: 4.0 0 - 5.20 WBC (Bld) [#/Vol] 12.2 {x10E9/L} above high threshold 4.4 - 11.3 MP-Reproductiv e Endocrinology- [place] Work Phone: WBC (Bld) [#/Vol] 0.0 {/100_WBC} 0.0-0.0 MP- Reproductiv e Endocrinology- [place] Work Phone: Complete Blood Count + Differential 0.5 % 0.0 - 0.9 MP-Reproductiv e Endocrinology- [place] Work Phone: Comment on above: Percent differential counts (%) should be interpreted in the context of the absolute cell counts (cells/L). Complete Blood Count + Differential 8.42 {x10E9/L} above high threshold See Below MP-Reproductiv e Endocrinology- [place] Work Phone: Comment on above: Reference Range: 1.2 0 - 7.70 Metabolic Panelon 11-14-2019 ALP [Catalytic activity/Vol] 82 U/L 33 - 110 MP-Reproductiv e Endocrinology- [place] Work Phone: Anion gap [Moles/Vol] 19 mmol/L 10 - 20 MP-Reproductiv e Endocrinology- [place] Work Phone: Bilirubin [Mass/Vol] 0.4 mg/dL 0.0 - 1.2 MP-Reproductiv e Endocrinology- [place] Work Phone: Calcium [Mass/Vol] 9.5 mg/dL 8.6 - 10.6 MP-Reproductiv e Endocrinology- [place] Work Phone: Chloride [Moles/Vol] 100 mmol/L 98 - 107 MP-Reproductiv e Endocrinology- [place] Work Phone: CO2 [Moles/Vol] 20 mmol/L below low threshold 21 - 32 MP-Reproductiv e Endocrinology- [place] Work Phone: Creatinine [Mass/Vol] 0.80 mg/dL See Below MP-Reproductiv e Endocrinology- [place] Work Phone: Comment on above: Reference Range: 0.5 0 - 1.05 Glucose [Mass/Vol] 86 mg/dL 74 - 99 MP-Reproductiv e Endocrinology- [place] Work Phone: Potassium [Moles/Vol] 4.3 mmol/L 3.5 - 5.3 MP-Reproductiv e Endocrinology- [place] Work Phone: Protein [Mass/Vol] 5.8 g/dL below low threshold 6.4 - 8.2 MP-Reproductiv e Endocrinology- [place] Work Phone: Sodium [Moles/Vol] 135 mmol/L below low threshold 136 - 145 MP-Reproductiv e Endocrinology- [place] Work Phone: Urea nitrogen [Mass/Vol] 10 mg/dL 6 - 23 MP-Reproductiv e [facility] Work Phone: Otheron 11-14-2019 Albumin BCP dye [Mass/Vol] 3.5 g/dL 3.4 - 5.0 MP-Reproductiv e [facility] Work Phone: ALT With P-5'-P [Catalytic activity/Vol] 17 U/L 7 - 45 MP-Reproductiv e [facility] Work Phone: Comment on above: Patients treated wit h Sulfasalazine may generate falsely decreased results for ALT. AST With P-5'-P [Catalytic activity/Vol] 22 U/L 9 - 39 MP-Reproductiv e [facility] Work Phone: >60 >60 MP-Reproductiv e [facility] Work Phone: Comment on above: CALCULATIONS OF MARÍA MATED GFR ARE PERFORMED USING THE MDRD STUDY EQUATION FOR THE IDMS-TRACEABLE CREATININE METHODS. CLIN CHEM 2007;53:766-72 CBCon 11-09-2019 Erythrocyte distribution width (RBC) [Ratio] 13.7 % See Below IX-BWOES-Eubqv n 310 [place] Work Phone: Comment on above: Performed By: #### L H #### [facility] [address] [place] [address] Reference Range: 11. 5 - 14.5 Hematocrit (Bld) [Volume fraction] 41.9 % See Below HA-NXBBX-Jrjlt n 310 [place] Work Phone: Comment on above: Performed By: #### L H #### [facility] [address] [place] [address] Reference Range: 36. 0 - 46.0 Hemoglobin (Bld) [Mass/Vol] 14.0 g/dL See Below AE-LWYDW-Goeob n 310 [place] Work Phone: Comment on above: Performed By: #### L H #### [facility] [address] [place] [address] Reference Range: 12. 0 - 16.0 MCHC (RBC) [Mass/Vol] 33.4 g/dL See Below VK-GYSAF-Myqny n 310 [place] Work Phone: Comment on above: Performed By: #### L H #### [facility] [address] [place] [address] Reference Range: 32. 0 - 36.0 MCV (RBC) [Entitic vol] 94 fL 80 - 100 XQ-HDYDH-Hhbuq n 310 [place] Work Phone: Comment on above: Performed By: #### L H #### [facility] [address] [place] [id number] Platelets (Bld) [#/Vol] 411 10*3/uL Normal 150 - 450 [facility] Comment on above: Performed By: #### L H #### [facility] [address] [place] [id number] RBC (Bld) [#/Vol] 4.44 x10E12/L Normal 4.00 - 5.20 [facility] Comment on above: Performed By: #### L H #### [facility] [address] [place] [id number] WBC (Bld) [#/Vol] 12.4 10*3/uL High 4.4 - 11.3 [facility] Comment on above: Performed By: #### L H #### [facility] [address] [place] [id number] COMPREHENSIVE PANELon 2018 Albumin [Mass/Vol] 3.8 g/dL Normal 3.4 - 5.0 [facility] Comment on above: Performed By: #### L H #### [facility] [address] [place] [address] ALP [Catalytic activity/Vol] 51 U/L 33 - 110 ZC-RIRRX-Eweeu n 310 [place] Work Phone: Comment on above: Performed By: #### L H #### [facility] [address] [place] [id number] ALT [Catalytic activity/Vol] 12 U/L Normal 7 - 45 [facility] Comment on above: Result Comment: Melida ents treated with Sulfasalazine may generate falsely decreased results for ALT. Performed By: #### L H #### [facility] [address] [place] [id number] Anion gap [Moles/Vol] 13 mmol/L 10 - 20 NQ-YZLLB-Hvpom n 310 [place] Work Phone: Comment on above: Performed By: #### L H #### [facility] [address] [place] [id number] AST [Catalytic activity/Vol] 12 U/L Normal 9 - 39 [facility] Comment on above: Performed By: #### L H #### [facility] [address] [place] [address] Bilirubin [Mass/Vol] 0.4 mg/dL 0.0 - 1.2 CN-RPHJF-Pcwnm n 310 [place] Work Phone: Comment on above: Performed By: #### L H #### [facility] [address] [place] [id number] Calcium [Mass/Vol] 9.3 mg/dL 8.6 - 10.3 DX-QWDWX-Mjwcn n 310 [place] Work Phone: Comment on above: Performed By: #### L H #### [facility] [address] [place] [phone] Chloride [Moles/Vol] 102 mmol/L 98 - 107 ZN-KBDSB-Nlskq n 310 [facility] Work Phone: Comment on above: Performed By: #### L H #### [facility] [address] [place] [id number] Creatinine [Mass/Vol] 0.89 mg/dL See Below AO-BIZVQ-Mxthk n 310 [place] Work Phone: Comment on above: Performed By: #### L H #### [facility] [address] [place] [id number] Reference Range: 0.5 0 - 1.05 GFR- AM. >60 Normal >60 [facility] Comment on above: Result Comment: CALC ULATIONS OF ESTIMATED GFR ARE PERFORMED USING THE MDRD STUDY EQUATION FOR THE IDMS-TRACEABLE CREATININE METHODS. CLIN CHEM 2007;53:766-72 Performed By: #### L H #### [facility] [address] [place] [address] GFR-NON AM. >60 Normal >60 [facility] Comment on above: Performed By: #### L H #### [facility] [address] [place] [address] Glucose [Mass/Vol] 74 mg/dL 74 - 99 CB-DPDXV-Bhqpr n 310 [place] Work Phone: Comment on above: Performed By: #### L H #### [facility] [address] [place] [address] HCO3 (Bld) [Moles/Vol] 25 mmol/L Normal 21 - 32 [facility] Comment on above: Performed By: #### L H #### [facility] [address] [place] [address] Potassium [Moles/Vol] 4.1 mmol/L 3.5 - 5.3 QG-WIKPO-Bvcsh n 310 [place] Work Phone: Comment on above: Performed By: #### L H #### [facility] [address] [place] [address] Protein [Mass/Vol] 6.0 g/dL below low threshold 6.4 - 8.2 QT-FGKRD-Ielhg n 310 [place] Work Phone: Comment on above: Performed By: #### L H #### [facility] [address] [place] [address] Sodium [Moles/Vol] 136 mmol/L 136 - 145 CF-PCWZP-Jrgnl n 310 [facility] Work Phone: Comment on above: Performed By: #### L H #### [facility] [address] [place] [address] Urea nitrogen [Mass/Vol] 11 mg/dL 6 - 23 FF-URCFT-Sqdwh n 310 [facility] Work Phone: Comment on above: Performed By: #### L H #### [facility] [address] [place] [address] HCG, Beta Quantitativeon HCG.beta subunit Qn 7102 {mIU/mL} Abnormal SH-TBRQB-Tiwil n 310 [place] Work Phone: Comment on [...] HCG measurement is performed using the [employer] Access Immunoassay which detects intact HCG and free beta HCG subunit. This test is not indicated for use as a tumor marker. HCG testing is performed using a different test methodology at [facility] than other [facility]. Direct result comparison should only be made within the same method. REF VALUESNON FEMALE <5MALES <5 HCG,BETA-QUANTITATIVEon - HCG,BETA-QUANTITA TIVE 7102 mIU/mL [facility] Comment on above: Result Comment: Low- level [...] HCG measurement is performed using the [employer] Access Immunoassay which detects intact HCG and free beta HCG subunit. This test is not indicated for use as a tumor marker. HCG testing is performed using a different test methodology at [facility] than other [facility]. Direct result comparison should only be made within the same method. REF VALUES NON FEMALE <5 MALES <5 Performed By: #### L H #### [facility] [address] [place] [address] Hematologyon 11-09-2019 Platelets (Bld) [#/Vol] 411 {x10E9/L} 150 - 450 IO-JYUGZ-Yqshx n 310 [facility] Work Phone: RBC (Bld) [#/Vol] 4.44 {x10E12/L} See Below MG -OBGYN-Risma n 310 [facility] Work Phone: Comment on above: Reference Range: 4.0 0 - 5.20 WBC (Bld) [#/Vol] 12.4 {x10E9/L} above high threshold 4.4 - 11.3 XE-YJQZU-Pzypt n 310 [facility] Work Phone: Metabolic Panelon 11-09-2019 CO2 [Moles/Vol] 25 mmol/L 21 - 32 MG-OBGYN- Risma n 310 [facility] Work Phone: Otheron 11-09-2019 Albumin BCP dye [Mass/Vol] 3.8 g/dL 3.4 - 5.0 GA-PHXKH-Fqmqt n 310 [facility] Work Phone: ALT With P-5'-P [Catalytic activity/Vol] 12 U/L 7 - 45 RI-BNJIP-Sogeq n 310 [facility] Work Phone: Comment on above: Patients treated wit h Sulfasalazine may generate falsely decreased results for ALT. AST With P-5'-P [Catalytic activity/Vol] 12 U/L 9 - 39 OZ-PMITV-Euwst n 310 [facility] Work Phone: >60 >60 QX-QVDOJ-Btbml n 310 [facility] Work Phone: Comment on above: CALCULATIONS OF MARÍA MATED GFR ARE PERFORMED USING THE MDRD STUDY EQUATION FOR THE IDMS-TRACEABLE CREATININE METHODS. CLIN CHEM 2007;53:766-72 HCG, Beta Quantitativeon HCG.beta subunit Qn 240 {mIU/mL} Abnormal MP-Reproductiv e Endocrinology- [place] Work Phone: Comment on above: Low-level positive H CG results can be seen in early , in yudekla- or post-menopausal females due to normal pituitary [...] HCG measurement is performed using the [employer] Access Immunoassay which detects intact HCG and free beta HCG subunit. This test is not indicated for use as a tumor marker. HCG testing is performed using a different test methodology at [facility] than other [facility]. Direct result comparison should only be made within the same method. REF VALUESNON FEMALE <5MALES <5 HCG,BETA-QUANTITATIVEon 10-15 HCG,BETA-QUANTITA TIVE 240 mIU/mL [facility] Comment on above: Result Comment: Low- level [...] performed using a different test methodology at [facility] than other [facility]. Direct result comparison should only be made within the same method. REF VALUES NON FEMALE <5 MALES <5 Performed By: #### E STRA #### [facility] [address] [place] [address] ESTRADIOLon 10-14-2019 ESTRADIOL 1871 pg/mL Normal [facility] Comment on above: Result Comment: Estr adiol measurement is performed using the [employer] Access Immunoassay. Estradiol testing is performed using a different test methodology at [facility] than other [facility]. Direct result comparison should only be made within the same method. REF VALUES FOLLICULAR PHASE 20-144 MID CYCLE 64-357 LUTEAL PHASE 56-214 POSTMENOPAUSE < 32 PREPUBERTY < 20 MALE 10-18Y < 20 ADULT MALE < 40 Performed By: #### E STRA #### [facility] [address] [place] [address] Estradiol, Serumon 9 E2 [Mass/Vol] 1871 pg/mL MG-OBGYN-Ri sma n 310 IVF Work Phone: Comment on above: Estradiol measuremen t is performed using the [employer] Access Immunoassay. Estradiol testing is performed using a different test methodology at [facility] than other [facility]. Direct result comparison should only be made within the same method.REF VALUESFOLLICULAR PHASE 20-144MID CYCLE 64-357LUTEAL PHASE 56-214POSTMENOPAUSE < 32PREPUBERTY < 20MALE 10-18Y < 20ADULT MALE < 40 PROGESTERONEon 10-14-2019 PROGESTERONE 1.0 ng/mL Normal [facility] Comment on above: Result Comment: Prog esterone is performed using the [employer] Access Immunoassay. Progesterone testing is performed using a different test methodology at [facility] than other [facility]. Direct result comparison should only be made within the same method. REF VALUES MALE <0.2-0.8 FOLLICULAR PHASE <0.2-1.5 LUTEAL PHASE 7.4-15.4 POSTMENOPAUSAL <0.2-0.2 1ST TRIMESTER 12.0-84.0 2ND TRIMESTER 10.2-58.8 3RD TRIMESTER 46.5-160 Performed By: #### E STRA #### [facility] [address] [place] [address] Progesterone, Serumon 2018 Progesterone [Mass/Vol] 1.0 ng/mL WL-REDZP-Tfgem n 310 IVF Work Phone: Comment on above: Progesterone is perf ormed using the [employer] Access Immunoassay. Progesterone testing is performed using a different test methodology at [facility] than other [facility]. Direct result comparison should only be made within the same method.REF VALUESMALE <0.2-0.8 FOLLICULAR PHASE <0.2-1.5 LUTEAL PHASE 7.4-15.4 POSTMENOPAUSAL <0.2-0.2 1ST TRIMESTER 12.0-84.0 2ND TRIMESTER 10.2-58.8 3RD TRIMESTER 46.5-160 ESTRADIOLon 10-11-2019 ESTRADIOL 284 pg/mL Normal [facility] Comment on above: Result Comment: Estr adiol measurement is performed using the [employer] Access Immunoassay. Estradiol testing is performed using a different test methodology at [facility] than other [facility]. Direct result comparison should only be made within the same method. REF VALUES FOLLICULAR PHASE 20-144 MID CYCLE 64-357 LUTEAL PHASE 56-214 POSTMENOPAUSE < 32 PREPUBERTY < 20 MALE 10-18Y < 20 ADULT MALE < 40 Performed By: #### E STRA #### [facility] [address] [place] [address] Estradiol, Serumon 9 E2 [Mass/Vol] 284 pg/mL MG-OBGYN-Ri [facility] n 310 [facility]F Work Phone: Comment on above: Estradiol measuremen t is performed using the [employer] Access Immunoassay. Estradiol testing is performed using a different test methodology at [facility] than other [facility]. Direct result comparison should only be made within the same method.REF VALUESFOLLICULAR PHASE 20-144MID CYCLE 64-357LUTEAL PHASE 56-214POSTMENOPAUSE < 32PREPUBERTY < 20MALE 10-18Y < 20ADULT MALE < 40 ESTRADIOLon 10-05-2019 ESTRADIOL 129 pg/mL Normal [facility] Comment on above: Result Comment: Estr adiol measurement is performed using the [employer] Access Immunoassay. Estradiol testing is performed using a different test methodology at [facility] than other [facility]. Direct result comparison should only be made within the same method. REF VALUES FOLLICULAR PHASE 20-144 MID CYCLE 64-357 LUTEAL PHASE 56-214 POSTMENOPAUSE < 32 PREPUBERTY < 20 MALE 10-18Y < 20 ADULT MALE < 40 Performed By: #### E STRA #### [facility] [address] [place] [address] Estradiol, Serumon 9 E2 [Mass/Vol] 129 pg/mL MG-OBGYN-Ri [facility] n 310 IVF Work Phone: Comment on above: Estradiol measuremen t is performed using the [employer] Access Immunoassay. Estradiol testing is performed using a different test methodology at [facility] than other [facility]. Direct result comparison should only be made within the same method.REF VALUESFOLLICULAR PHASE 20-144MID CYCLE 64-357LUTEAL PHASE 56-214POSTMENOPAUSE < 32PREPUBERTY < 20MALE 10-18Y < 20ADULT MALE < 40 PROGESTERONEon 10-05-2019 PROGESTERONE 0.2 ng/mL Normal [facility] Comment on above: Result Comment: Prog esterone is performed using the [employer] Access Immunoassay. Progesterone testing is performed using a different test methodology at [facility] than other [facility]. Direct result comparison should only be made within the same method. REF VALUES MALE <0.2-0.8 FOLLICULAR PHASE <0.2-1.5 LUTEAL PHASE 7.4-15.4 POSTMENOPAUSAL <0.2-0.2 1ST TRIMESTER 12.0-84.0 2ND TRIMESTER 10.2-58.8 3RD TRIMESTER 46.5-160 Performed By: #### E STRA #### [facility] [address] [place] [address] Progesterone, Serumon 2018 Progesterone [Mass/Vol] 0.2 ng/mL MQ-RPJKO-Medrq n 310 IVF Work Phone: Comment on above: Progesterone is perf ormed using the [employer] Access Immunoassay. Progesterone testing is performed using a different test methodology at [facility] than other [facility]. Direct result comparison should only be made within the same method.REF VALUESMALE <0.2-0.8 FOLLICULAR PHASE <0.2-1.5 LUTEAL PHASE 7.4-15.4 POSTMENOPAUSAL <0.2-0.2 1ST TRIMESTER 12.0-84.0 2ND TRIMESTER 10.2-58.8 3RD TRIMESTER 46.5-160 ESTRADIOLon 10-02-2019 ESTRADIOL 357 pg/mL Normal [facility] Comment on above: Result Comment: Estr adiol measurement is performed using the [employer] Access Immunoassay. Estradiol testing is performed using a different test methodology at [facility] than other [facility]. Direct result comparison should only be made within the same method. REF VALUES FOLLICULAR PHASE 20-144 MID CYCLE 64-357 LUTEAL PHASE 56-214 POSTMENOPAUSE < 32 PREPUBERTY < 20 MALE 10-18Y < 20 ADULT MALE < 40 Performed By: #### E STRA #### [facility] [address] [place] [address] Estradiol, Serumon 11-18-201 9 E2 [Mass/Vol] 357 pg/mL MG-OBGYN-Cr ock er 206A IVF Work Phone: Comment on above: Estradiol measuremen t is performed using the [employer] Access Immunoassay. Estradiol testing is performed using a different test methodology at [facility] than other [facility]. Direct result comparison should only be made within the same method.REF VALUESFOLLICULAR PHASE 20-144MID CYCLE 64-357LUTEAL PHASE 56-214POSTMENOPAUSE < 32PREPUBERTY < 20MALE 10-18Y < 20ADULT MALE < 40 LUTEINIZING HORMONEon 2018 LUTEINIZING HORMONE 14.7 IU/L Normal [facility] Comment on above: Result Comment: Lute inizing Hormone [LH] is performed using the [employer] Access Immunoassay. LH testing is performed using a different test methodology at [facility] than other [facility]. Direct result comparison should only be made within the same method. REF VALUES FOLLICULAR PHASE 1.5-10.0 MID-CYCLE 13.0-72.0 LUTEAL PHASE 0.5-13.0 MENOPAUSE 15.0-65.0 PREPUBERTY 0- 3.0 CHILDREN 0- 6.0 ADULT MALE 1.0- 9.0 Performed By: #### E [facility] #### [facility] [address] [place] [address] Luteinizing Hormone, Serumon 10-02-2019 Lutropin Qn 14.7 {IU/L} BR-TXYXU-Udv ck er 206A IVF Work Phone: Comment on above: Luteinizing Hormone [LH] is performed using the [employer] Access Immunoassay. LH testing is performed using a different test methodology at [facility] than [facility]. Direct result comparison should only be made within the same method.REF VALUESFOLLICULAR PHASE 1.5-10.0MID-CYCLE 13.0-72.0LUTEAL PHASE 0.5-13.0MENOPAUSE 15.0-65.0PREPUBERTY 0- 3.0CHILDREN 0- 6.0ADULT MALE 1.0- 9.0 PROGESTERONEon 10-02-2019 PROGESTERONE 0.1 ng/mL Normal [facility] Comment on above: Result Comment: Prog esterone is performed using the [employer] Access Immunoassay. Progesterone testing is performed using a different test methodology at [facility] than other [facility]. Direct result comparison should only be made within the same method. REF VALUES MALE <0.2-0.8 FOLLICULAR PHASE <0.2-1.5 LUTEAL PHASE 7.4-15.4 POSTMENOPAUSAL <0.2-0.2 1ST TRIMESTER 12.0-84.0 2ND TRIMESTER 10.2-58.8 3RD TRIMESTER 46.5-160 Performed By: #### E STRA #### [facility] [address] [place] [address] Progesterone, Serumon 2018 Progesterone [Mass/Vol] 0.1 ng/mL RI-JHRYY-Ijrou er 206A IVF Work Phone: Comment on above: Progesterone is perf ormed using the [employer] Access Immunoassay. Progesterone testing is performed using a different test methodology at [facility] than other [facility]. Direct result comparison should only be made within the same method.REF VALUESMALE <0.2-0.8 FOLLICULAR PHASE <0.2-1.5 LUTEAL PHASE 7.4-15.4 POSTMENOPAUSAL <0.2-0.2 1ST TRIMESTER 12.0-84.0 2ND TRIMESTER 10.2-58.8 3RD TRIMESTER 46.5-160 HCG,BETA-QUANTITATIVEon 07-17 HCG,BETA-QUANTITA TIVE 10 mIU/mL [facility] Comment on above: Result Comment: Low- level [...] HCG measurement is performed using the Jose [employer] Access Immunoassay which detects intact HCG and free beta HCG subunit. This test is not indicated for use as a tumor marker. HCG testing is performed using a different test methodology at [facility] than other [facility]. Direct result comparison should only be made within the same method. REF VALUES NON FEMALE <5 MALES <5 Performed By: #### L H #### [facility] [address] [place] [address] LUTEINIZING HORMONEon 2018 LUTEINIZING HORMONE 57.0 IU/L Normal [facility] Comment on above: Result Comment: Lute inizing Hormone [LH] is performed using the [employer] Access Immunoassay. LH testing is performed using a different test methodology at [facility] than other [facility]. Direct result comparison should only be made within the same method. REF VALUES FOLLICULAR PHASE 1.5-10.0 MID-CYCLE 13.0-72.0 LUTEAL PHASE 0.5-13.0 MENOPAUSE 15.0-65.0 PREPUBERTY 0- 3.0 CHILDREN 0- 6.0 ADULT MALE 1.0- 9.0 Performed By: #### E STRA #### [facility] [address] [place] [address] PROGESTERONEon 08-13-2019 PROGESTERONE 6.7 ng/mL Normal [facility] Comment on above: Result Comment: Prog esterone is performed using the [employer] Access Immunoassay. Progesterone testing is performed using a different test methodology at [facility] than other [facility]. Direct result comparison should only be made within the same method. REF VALUES MALE <0.2-0.8 FOLLICULAR PHASE <0.2-1.5 LUTEAL PHASE 7.4-15.4 POSTMENOPAUSAL <0.2-0.2 1ST TRIMESTER 12.0-84.0 2ND TRIMESTER 10.2-58.8 3RD TRIMESTER 46.5-160 Performed By: #### L H #### [facility] [address] [place] [address] ESTRADIOLon 08-12-2019 ESTRADIOL 1380 pg/mL Normal [facility] Comment on above: Result Comment: Estr adiol measurement is performed using the [employer] Access Immunoassay. Estradiol testing is performed using a different test methodology at [facility] than other [facility]. Direct result comparison should only be made within the same method. REF VALUES FOLLICULAR PHASE 20-144 MID CYCLE 64-357 LUTEAL PHASE 56-214 POSTMENOPAUSE < 32 PREPUBERTY < 20 MALE 10-18Y < 20 ADULT MALE < 40 Performed By: #### L H #### [facility] [address] [place] [address] PROGESTERONEon 08-12-2019 PROGESTERONE 1.7 ng/mL Normal [facility] Comment on above: Result Comment: Prog esterone is performed using the Jose [employer] Access Immunoassay. Progesterone testing is performed using a different test methodology at [facility] than other [facility]. Direct result comparison should only be made within the same method. REF VALUES MALE <0.2-0.8 FOLLICULAR PHASE <0.2-1.5 LUTEAL PHASE 7.4-15.4 POSTMENOPAUSAL <0.2-0.2 1ST TRIMESTER 12.0-84.0 2ND TRIMESTER 10.2-58.8 3RD TRIMESTER 46.5-160 Performed By: #### L H #### [facility] [address] [place] [address] ESTRADIOLon 08-11-2019 ESTRADIOL 874 pg/mL Normal [facility] Comment on above: Result Comment: Estr adiol measurement is performed using the [employer] Access Immunoassay. Estradiol testing is performed using a different test methodology at [facility] than other [facility]. Direct result comparison should only be made within the same method. REF VALUES FOLLICULAR PHASE 20-144 MID CYCLE 64-357 LUTEAL PHASE 56-214 POSTMENOPAUSE < 32 PREPUBERTY < 20 MALE 10-18Y < 20 ADULT MALE < 40 Performed By: #### L H #### [facility] [address] [place] [address] PROGESTERONEon 08-11-2019 PROGESTERONE 1.2 ng/mL Normal [facility] Comment on above: Result Comment: Prog esterone is performed using the Jose [employer] Access Immunoassay. Progesterone testing is performed using a different test methodology at [facility] than other [facility]. Direct result comparison should only be made within the same method. REF VALUES MALE <0.2-0.8 FOLLICULAR PHASE <0.2-1.5 LUTEAL PHASE 7.4-15.4 POSTMENOPAUSAL <0.2-0.2 1ST TRIMESTER 12.0-84.0 2ND TRIMESTER 10.2-58.8 3RD TRIMESTER 46.5-160 Performed By: #### L H #### [facility] [address] [place] [address] ESTRADIOLon 08-09-2019 ESTRADIOL 385 pg/mL Normal [facility] Comment on above: Result Comment: Estr adiol measurement is performed using the [employer] Access Immunoassay. Estradiol testing is performed using a different test methodology at [facility] than other [facility]. Direct result comparison should only be made within the same method. REF VALUES FOLLICULAR PHASE 20-144 MID CYCLE 64-357 LUTEAL PHASE 56-214 POSTMENOPAUSE < 32 PREPUBERTY < 20 MALE 10-18Y < 20 ADULT MALE < 40 Performed By: #### L H #### [facility] [address] [place] [address] ESTRADIOLon 08-07-2019 ESTRADIOL 80 pg/mL Normal [facility] Comment on above: Result Comment: Estr adiol measurement is performed using the [employer] Access Immunoassay. Estradiol testing is performed using a different test methodology at [facility] than [facility]. Direct result comparison should only be made within the same method. REF VALUES FOLLICULAR PHASE 20-144 MID CYCLE 64-357 LUTEAL PHASE 56-214 POSTMENOPAUSE < 32 PREPUBERTY < 20 MALE 10-18Y < 20 ADULT MALE < 40 Performed By: #### L H #### [facility] [address] [place] [address] ESTRADIOLon 08-04-2019 ESTRADIOL 58 pg/mL Normal [facility] Comment on above: Result Comment: Estr adiol measurement is performed using the Jose [employer] Access Immunoassay. Estradiol testing is performed using a different test methodology at [facility] than [facility]. Direct result comparison should only be made within the same method. REF VALUES FOLLICULAR PHASE 20-144 MID CYCLE 64-357 LUTEAL PHASE 56-214 POSTMENOPAUSE < 32 PREPUBERTY < 20 MALE 10-18Y < 20 ADULT MALE < 40 Performed By: #### L H #### [facility] [address] [place] [address] ESTRADIOLon 07-07-2019 ESTRADIOL 110 pg/mL Normal [facility] Comment on above: Result Comment: Estr adiol measurement is performed using the [employer] Access Immunoassay. Estradiol testing is performed using a different test methodology at [facility] than [facility]. Direct result comparison should only be made within the same method. REF VALUES FOLLICULAR PHASE 20-144 MID CYCLE 64-357 LUTEAL PHASE 56-214 POSTMENOPAUSE < 32 PREPUBERTY < 20 MALE 10-18Y < 20 ADULT MALE < 40 Performed By: #### L H #### [facility] [address] [place] [address] NR MRI SELLA WO/Won 05-31-20 19 NR MRI SELLA WO/W Patient Name: KIARA ASHLEY STUDY: NR MRI SELLA WO/W; 05/31/2019 2:00 pm INDICATION: History of 7 mm microadenoma 2008. COMPARISON: None. ACCESSION NUMBER(S): [id number] ORDERING CLINICIAN: SHAHLA HEALY TECHNIQUE: High resolution [...] the foramen magnum. Electronically signed by: IRENE BLAKE PHYSICIAN Normal [facility] ESTRADIOLon 05-05-2019 ESTRADIOL 217 pg/mL Normal [facility] Comment on above: Result Comment: Estr adiol measurement is performed using the Jose [employer] Access Immunoassay. Estradiol testing is performed using a different test methodology at [facility] than other [facility]. Direct result comparison should only be made within the same method. REF VALUES FOLLICULAR PHASE 20-144 MID CYCLE 64-357 LUTEAL PHASE 56-214 POSTMENOPAUSE < 32 PREPUBERTY < 20 MALE 10-18Y < 20 ADULT MALE < 40 Performed By: #### E STRA #### [facility] [address] [place] [address] LUTEINIZING HORMONEon 2018 LUTEINIZING HORMONE 4.4 IU/L Normal [facility] Comment on above: Result Comment: Lute inizing Hormone [LH] is performed using the Jose [employer] Access Immunoassay. LH testing is performed using a different test methodology at [facility] than other [facility]. Direct result comparison should only be made within the same method. REF VALUES FOLLICULAR PHASE 1.5-10.0 MID-CYCLE 13.0-72.0 LUTEAL PHASE 0.5-13.0 MENOPAUSE 15.0-65.0 PREPUBERTY 0- 3.0 CHILDREN 0- 6.0 ADULT MALE 1.0- 9.0 Performed By: #### L H #### [facility] [address] [place] [address] ESTRADIOLon 04-11-2019 ESTRADIOL 118 pg/mL Normal [facility] Comment on above: Result Comment: Estr adiol measurement is performed using the [employer] Access Immunoassay. Estradiol testing is performed using a different test methodology at [facility] than [facility]. Direct result comparison should only be made within the same method. REF VALUES FOLLICULAR PHASE 20-144 MID CYCLE 64-357 LUTEAL PHASE 56-214 POSTMENOPAUSE < 32 PREPUBERTY < 20 MALE 10-18Y < 20 ADULT MALE < 40 Performed By: #### E STRA #### [facility] [address] [place] [address] LUTEINIZING HORMONEon 2018 LUTEINIZING HORMONE 7.7 IU/L Normal [facility] Comment on above: Result Comment: Lute inizing Hormone [LH] is performed using the [employer] Access Immunoassay. LH testing is performed using a different test methodology at [facility] than [facility]. Direct result comparison should only be made within the same method. REF VALUES FOLLICULAR PHASE 1.5-10.0 MID-CYCLE 13.0-72.0 LUTEAL PHASE 0.5-13.0 MENOPAUSE 15.0-65.0 PREPUBERTY 0- 3.0 CHILDREN 0- 6.0 ADULT MALE 1.0- 9.0 Performed By: #### L H #### [facility] [address] [place] [address] PROGESTERONEon 04-11-2019 PROGESTERONE 0.1 ng/mL Normal [facility] Comment on above: Result Comment: Prog esterone is performed using the [employer] Access Immunoassay. Progesterone testing is performed using a different test methodology at [facility] than other [facility]. Direct result comparison should only be made within the same method. REF VALUES MALE <0.2-0.8 FOLLICULAR PHASE <0.2-1.5 LUTEAL PHASE 7.4-15.4 POSTMENOPAUSAL <0.2-0.2 1ST TRIMESTER 12.0-84.0 2ND TRIMESTER 10.2-58.8 3RD TRIMESTER 46.5-160 Performed By: #### P SVEN #### [facility] [address] [place] [address] ESTRADIOLon 03-17-2019 ESTRADIOL 120 pg/mL Normal [facility] Comment on above: Result Comment: Estr adiol measurement is performed using the [employer] Access Immunoassay. Estradiol testing is performed using a different test methodology at [facility] than [facility]. Direct result comparison should only be made within the same method. REF VALUES FOLLICULAR PHASE 20-144 MID CYCLE 64-357 LUTEAL PHASE 56-214 POSTMENOPAUSE < 32 PREPUBERTY < 20 MALE 10-18Y < 20 ADULT MALE < 40 Performed By: #### E STRA #### [facility] [address] [place] [address] LUTEINIZING HORMONEon 2018 LUTEINIZING HORMONE 6.8 IU/L Normal [facility] Comment on above: Result Comment: Lute inizing Hormone [LH] is performed using the [employer] Access Immunoassay. LH testing is performed using a different test methodology at [facility] than [facility]. Direct result comparison should only be made within the same method. REF VALUES FOLLICULAR PHASE 1.5-10.0 MID-CYCLE 13.0-72.0 LUTEAL PHASE 0.5-13.0 MENOPAUSE 15.0-65.0 PREPUBERTY 0- 3.0 CHILDREN 0- 6.0 ADULT MALE 1.0- 9.0 Performed By: #### L H #### [facility] [address] [place] [address] ESTRADIOLon 02-20-2019 ESTRADIOL 521 pg/mL Normal [facility] Comment on above: Result Comment: Estr adiol measurement is performed using the [employer] Access Immunoassay. Estradiol testing is performed using a different test methodology at [facility] than other [facility]. Direct result comparison should only be made within the same method. REF VALUES FOLLICULAR PHASE 20-144 MID CYCLE 64-357 LUTEAL PHASE 56-214 POSTMENOPAUSE < 32 PREPUBERTY < 20 MALE 10-18Y < 20 ADULT MALE < 40 Performed By: #### E STRA #### [facility] [address] [place] [address] LUTEINIZING HORMONEon 2018 LUTEINIZING HORMONE 3.5 IU/L Normal [facility] Comment on above: Result Comment: Lute inizing Hormone [LH] is performed using the [employer] Access Immunoassay. LH testing is performed using a different test methodology at [facility] than other [facility]. Direct result comparison should only be made within the same method. REF VALUES FOLLICULAR PHASE 1.5-10.0 MID-CYCLE 13.0-72.0 LUTEAL PHASE 0.5-13.0 MENOPAUSE 15.0-65.0 PREPUBERTY 0- 3.0 CHILDREN 0- 6.0 ADULT MALE 1.0- 9.0 Performed By: #### L H #### [facility] [address] [place] [address] Vital Signs Date Time Vital Sign Value Performing Clinician Modesto golden 12-27-2023 10:57-0500 Body mass index (BMI) [Ratio] 34.84 kg/m2 Bere JOHNSON Work Phone: [facility] 12-27-2023 10:57-0500 Body weight 83.64 kg Bere JOHNSON Work Phone: [facility] 12-27-2023 10:57-0500 Diastolic blood pressure 68 mm[Hg] Bere JOHNSON Work Phone: [facility] 12-27-2023 10:57-0500 Systolic blood pressure 110 mm[Hg] Bere JOHNSON Work Phone: [facility] 02-27-2023 11:35-0400 Body mass index (BMI) [Ratio] 29.26 kg/m2 Evelyn Perez Work Phone: [facility] 02-27-2023 11:35-0400 Body temperature 98.8 [degF] Evelyn Calderonrn Work Phone: [facility] [employer] 02-27-2023 11:35-0400 Body weight 72.58 kg Evelyn Calderonrn Work Phone: [facility] 02-27-2023 11:35-0400 Diastolic blood pressure 66 mm[Hg] Evelyn Calderonrn Work Phone: [facility] 02-27-2023 11:35-0400 Heart rate 88 /min Evelyn Calderonrn Work Phone: [facility] 02-27-2023 11:35-0400 Respiratory rate 14 /min Evelyn Calderonrn Work Phone: [facility] 02-27-2023 11:35-0400 SaO2% (BldA) [Mass fraction] 100 % Evelyn Calderonrn Work Phone: [facility] 02-27-2023 11:35-0400 Systolic blood pressure 103 mm[Hg] Evelyn Calderonrn Work Phone: [facility] 06-19-2021 14:03-0400 Body height 157.48 cm Evelyn Calderonrn Work Phone: VN-IVJHW-Ktuivn 310 IVF Work Phone: 06-19-2021 14:03-0400 Body mass index (BMI) [Ratio] 29.26 kg/m2 Evelyn Grubererhorn Work Phone: TH-QTHFE-Lbypda 310 IVF Work Phone: 06-19-2021 14:03-0400 Body surface area Derived from formula 1.74 m2 Evelyn Calderonrn Work Phone: GJ-WBGIJ-Enosvo 310 IVF Work Phone: 06-19-2021 14:03-0400 Body weight 72.58 kg Evelyn M Ana Work Phone: UU-SOGBM-Nmtghg 310 IVF Work Phone: 06-19-2021 14:03-0400 1 1 Evelyn M Ana Work Phone: YK-SDPVT-Jeyxue 310 IVF Work Phone: Comment on above: GRAV PARA 06-19-2021 14:03-0400 0 1 Evelyn M Ana Work Phone: RE-GMKRN-Eimjgy 310 IVF Work Phone: Comment on above: [employer] 06-07-2020 10:41-0400 BMI (Body Mass Index) 34.93 kg/m2 King Lappen FF-GYRMQ-FBN [address] [place] Work Phone: 06-07-2020 10:41-0400 Body weight 86.64 kg King Lappen NU-NKJMD-HZR 120 0 [place] Work Phone: 06-07-2020 10:41-0400 BP Diastolic 76 mm[Hg] King Lappen FP-WKWNX-WWG 120 0 [place] Work Phone: 06-07-2020 10:41-0400 BP Systolic 111 mm[Hg] King Lappen LU-GAMSL-CLA 120 0 [place] Work Phone: 06-07-2020 10:41-0400 BSA (Body Surface Area) 1.87 m2 King Lappen VS-KKLOF-YVZ 1200 [place] Work Phone: 06-07-2020 10:41-0400 Pulse (Heart Rate) 101 /min King Lappen RP-LZDOS-HVT 1200 [place] Work Phone: 06-07-2020 10:41-0400 0 1 King Lappen WS-BGCQF-DXT 120 0 [place] Work Phone: Comment on above: [employer] 12-25-2019 10:58-0500 BMI (Body Mass Index) 30.18 kg/m2 King Lappen XG-DZUEP-LYO [address] [place] Work Phone: 12-25-2019 10:58-0500 Body weight 74.84 kg King Lappen FS-GFLOR-PAF 120 0 [place] Work Phone: 12-25-2019 10:58-0500 BP Diastolic 68 mm[Hg] King Lappen HN-SUPSB-GNL 120 0 [place] Work Phone: 12-25-2019 10:58-0500 BP Systolic 112 mm[Hg] King Lappen CO-ZCTRJ-UUV 120 0 [place] Work Phone: 12-25-2019 10:58-0500 BSA (Body Surface Area) 1.76 m2 King Lappen OU-BNHMW-PBQ 1200 [place] Work Phone: 11-09-2019 11:28-0500 Body Temperature 98.78 [degF] Kelechi Gage YQ-CFPTG-Pftcsx 310 IVF Work Phone: 11-09-2019 11:28-0500 BP Diastolic 76 mm[Hg] Kelechi Gage TD-KHIPX-Jwisqh 310 IVF Work Phone: 11-09-2019 11:28-0500 BP Systolic 112 mm[Hg] Kelechi Gage NT-RIEHN-Sttkfc 310 IVF Work Phone: 11-09-2019 11:28-0500 Respiratory Rate 96 /min Kelechi Gage IQ-BUGBO-Prrijw 310 IVF Work Phone: Encounters Encounter Date Encounter Type Care Provider Facility Start: 01-10-2024 End: 01-11-2024 ambulatory Zoya Buitrago SHINGLES [employer] MANAGER Facility:[facility] Start: 12-27-2023 End: 12-27-2023 ambulatory [employer] Not Available Start: 12-27-2023 End: 12-27-2023 flow sheet Bere Steel PA Work Phone: [facility] Comment on above: Third trimester preg teddy; First trimester ; Hypothyroidism, unspecified type (CMS/HCC); Hypothyroidism (acquired) ([facility]); H/O blood clots; Excessive growth affecting management of in third trimester, single or unspecified fetus Start: 11-30-2023 End: 11-30-2023 ambulatory DEMARIO RIBEIRO Not Available Start: 11-03-2023 End: 11-03-2023 ambulatory DEMARIO RIBEIRO Not Available Start: 10-05-2023 End: 10-05-2023 ambulatory BERE STEEL Not Available Start: 09-14-2023 End: 09-14-2023 ambulatory Lc Waite Facility:[facility] Start: 02-27-2023 End: 02-27-2023 Emergency department patient visit EVELYN Husain ANA [facility] Start: 02-27-2023 End: 02-27-2023 Emergency department patient visit Evelyn UngerAna Work Phone: [facility] ED Comment on above: Sprain of left ankle , unspecified ligament, initial encounter (Primary Dx) Start: 01-11-2023 End: 01-11-[address] DEMARIO RIBEIRO . Facility:[facility]1 Start: 09-22-2022 End: 09-22-2022 Emergency department patient visit JAMI ROMERO [facility] Start: 03-10-[address] EVELYN [...] Facility:[facility] Start: 02-10-2022 End: 02-10-[address] DEMARIO RIBEIRO . Facility:[facility] Start: 02-06-2022 End: 02-06-[address] DEMARIO RIBEIRO . Facility:[facility] Start: 02-03-2022 End: 02-03-[address] JESSE THOMAS Facility:[facility] Start: 02-02-2022 End: 02-02-[address] EVELYN PEREZ Facility:[facility] Start: 01-27-[address] EVLEYN PEREZ Facility:[facility]1 Start: 12-27-2021 End: 12-27-2021 ambulatory Sabina Barnhart Other [facility] [employer] Other Start: 12-27-2021 Office outpatient visit 5 minutes Sabina Barnhart [facility] Start: 07-16-2021 Patient encounter procedure Evelyn Perez Work Phone: BF-JLJKR-Jykkqe 310 IVF Work Phone: Start: 07-07-2021 AUDIT Evelyn Husain Scherm erhorclarisse Work Phone: IA-XPKPY-Zserja 310 IVF Work Phone: Start: 07-07-2021 Chart Update Evelyn castrohofabrizio Work Phone: CC-MVVXG-Jtstkz 310 IVF Work Phone: Start: 07-02-2021 Telephone encounter Evelyn gonazles Work Phone: QX-KYZIH-Bqqfqt 310 IVF Work Phone: Start: 06-19-2021 Patient encounter procedure Evelyn Perez Work Phone: BC-GSBUA-Oywany 310 IVF Work Phone: Start: 06-07-2020 Patient encounter procedure King Lappen EE-NUJXR-OLO 1200 [place] Work Phone: Start: 04-24-2020 Patient encounter procedure King Lappen SK-TMCOB-WKX 1200 [place] Work Phone: Start: 02-20-2020 Patient encounter procedure King Lappen LB-WEZYJ-VKY 1200 [place] Work Phone: Start: 02-14-2020 Patient encounter procedure King Lappen HE-FQYOG-TST 1200 [place] Work Phone: Start: 01-23-2020 Patient encounter procedure King Kemppen JY-XXQEJ-ZGJ 1200 [place] Work Phone: Start: 12-25-2019 Patient encounter procedure King Lappen MD-ELAER-WZO 1200 [place] Work Phone: Start: 11-21-2019 Patient encounter procedure King Kemppen YY-YOSVS-SHX 1200 [place] Work Phone: Start: 11-16-2019 Patient encounter procedure Kelechi Gage MP-Reproductive Endocrinology-Balwinder 206 Work Phone: Start: 11-14-2019 Patient encounter procedure Kelechi Gage DH-TUHPL-Oubgej 310 IVF Work Phone: Start: 11-09-2019 Patient encounter procedure Kelechi Gage DA-JDNWJ-Xmlkch 310 IVF Work Phone: Start: 11-02-2019 Patient encounter procedure Kelechi Gage MP-Reproductive Endocrinology-Risman Work Phone: Start: 10-21-2019 Patient encounter procedure Kelechi Gage MP-Reproductive Endocrinology-Risman Work Phone: Start: 10-14-2019 Patient encounter procedure Kelechi Gage FB-JTQEI-Slwrra 310 IVF Work Phone: Start: 10-11-2019 Patient encounter procedure Kelechi Gage SL-MBALS-Hnszec 310 IVF Work Phone: Start: 10-05-2019 Patient encounter procedure Kelechi Gage OU-WJESG-Errwxg 320 Work Phone: Start: 10-02-2019 Patient encounter procedure Kelechi Gage UO-LHKUN-Ajqpmih 206A IVF Work Phone: Start: 08-14-2019 Patient encounter procedure Kelechi Gage FR-CCEJZ-Nbzfhc 310 IVF Work Phone: Start: 08-13-2019 Patient encounter procedure Kelechi Gage WP-IQRDJ-Qmebmb 310 IVF Work Phone: Start: 08-12-2019 Patient encounter procedure Kelechi Gage FE-HNPSX-Yhjvrg 310 IVF Work Phone: Start: 08-11-2019 Patient encounter procedure Kelechi Gage LD-JLCUM-Fyqxol 310 IVF Work Phone: Start: 08-09-2019 Patient encounter procedure Kelechi Gage OV-WDVZL-Pfriku 310 IVF Work Phone: Start: 08-07-2019 Patient encounter procedure Kelechi Gage QS-IAMFO-Uvfwwn 310 IVF Work Phone: Start: 08-04-2019 Patient encounter procedure Kelechi Gage IU-EWBCW-Nvbkib 310 IVF Work Phone: Start: 07-07-2019 Patient encounter procedure Kelechi Gage FX-HMEKK-Ilbiij 310 IVF Work Phone: Start: 06-08-2019 Patient encounter procedure Kelechi Gage ML-WWPFK-Jipedc 310 IVF Work Phone: Start: 05-17-2019 Patient encounter procedure Kelechi Gage KU-QBEJS-Aicjrc 310 IVF Work Phone: Start: 05-08-2019 Patient encounter procedure Kelechi TONGHM-XQWZC-Etdylr 310 IVF Work Phone: Start: 05-05-2019 Patient encounter procedure Kelechi Gage AV-VZCFU-Zfuvme 310 IVF Work Phone: Start: 04-13-2019 Patient encounter procedure Kelechi TONGRC-YVEWT-Nryscg 310 IVF Work Phone: Start: 04-11-2019 Patient encounter procedure Kelechi Gage JE-KTVWH-Ipdglh 310 IVF Work Phone: Start: 03-20-2019 Patient encounter procedure Kelechi Gage FB-MJLIP-Aypkii 310 IVF Work Phone: Start: 03-17-2019 Patient encounter procedure Kelechi Gage QV-RLNPQ-Kruobu 310 IVF Work Phone: Start: 02-22-2019 Patient encounter procedure Kelechi Gage FO-QCEAL-Fdpvkx 310 IVF Work Phone: Start: 02-20-2019 Patient encounter procedure Kelechi Gage SA-IQYBE-Ddcuya 310 IVF Work Phone: Start: 02-13-2019 Patient encounter procedure Bruce Mayes [facility] Start: 02-08-2019 End: 02-12-2019 Patient encounter procedure Bruce Mayes Facility:[facility] Start: 01-19-2019 Patient encounter procedure Kelechi Gage OL-HBLAY-Kmrxzd 310 IVF Work Phone: Patient encounter status Evelyn Perez Work Phone: WJ-PLTWR-Aywvan 310 IVF Work Phone: Procedures Date Procedure [...] Lappen Start: 12-25-2019 Type and Screen King Guevara Start: 11-09-2019 Blood count complete auto&auto difrntl wbc Kelechi Gage Start: 11-09-2019 CBC W Auto Different ial panel - Blood Kelechi Gage Start: 11-09-2019 Comprehensive metabo lic 2000 panel Kelechi Gage Start: 11-09-2019 Gonadotropin chorion ic quantitative Kelechi Gage Start: 11-09-2019 IO Ultrasound, Kelechi Gage Start: 11-09-2019 Urnls dip stick/tabl et rgnt auto w/o microscopy Kelechi Gage Start: 11-02-2019 IO Ultrasound, Keelchi Gage Start: 10-19-2019 Gonadotropin chorion ic quantitative [...] Treatment Date Care Activity Detail Author Start: 02-07-2024 End: 02-07-2024 Patient encounter procedure 02/07/2024 9:40 AM EDT Routine [facility] [address] [place] [phone] Demario Ribeiro, DO [address] [place] [address] [facility] Start: 02-07-2024 End: 02-07-2024 Professional / ancillary services management 02/07/2024 9:00 AM EDT Ancillary Procedure [facility] [address] [place], [place] [phone] [facility] Start: 01-24-2024 End: 01-24-2024 Patient encounter procedure 01/24/2024 9:30 AM EDT Routine [facility] [address] [place] [phone] Bere Steel PA [address] [place], [place] [id number] [facility] Start: 01-10-2024 End: 01-10-2024 Patient encounter procedure 01/10/2024 2:20 PM EST Routine [facility] [address] [place], [place] [phone] Demario Ribeiro DO [address] [place], [place] [id number] [facility] Start: 01-10-2024 End: 01-10-2024 Professional / ancillary services management 01/10/2024 2:00 PM EST Ancillary Procedure [facility] [address] [place], [place] [phone] [facility] Start: 12-27-2023 End: 12-27-2024 US biophysical profile w non stress test US biophysical profile w non stress test Imaging Routine Hypothyroidism (acquired) (CMS/HCC) H/O blood clots Expected: 12/27/2023 (Approximate), Expires: 12/27/2024 [facility] Work Phone: Comment on above: Expected: 12/27/2023 (Approximate), Expires: 12/27/2024 Start: 12-27-2023 End: 12-27-2024 US for US OB SCAN FOR GROWTH Imaging Routine Hypothyroidism, unspecified type (CMS/HCC) Excessive growth affecting management of in third trimester, single or unspecified fetus Expected: 12/27/2023 (Approximate), Expires: 12/27/2024 [facility] Healthcare Comment on above: Expected: 12/27/2023 (Approximate), Expires: 12/27/2024 Start: 06-15-2023 Influenza vaccination Flu vacc ine (Season Ended) [facility] Start: 2021 Screening for malignant neoplasm of cervix [facility] Start: 07-25-2021 ULTRASOUND, Provider : OBGYN IVF RDMS ARDEN 1,[facility], Status: Pen, Time: 9:00 AM ULTRASOUND, Provider: OBGYN IVF RDMS ARDEN 1,MG OBGYN, Status: Pen, Time: 9:00 AM JA-TTBCU-Gwixrl 310 IVF Work Phone: Start: 07-16-2021 ULTRASOUND, Provider : OBGYN IVF RDMS [id number] 1,[facility] OBGYN, Status: Pen, Time: 1:00 PM ULTRASOUND, Provider: OBGYN IVF RDMS [id number] 1,[facility] OBG[facility], Status: Pen, Time: 1:00 PM TH-NWDZD-Qgtkjy 310 IVF Work Phone: Start: 07-07-2021 ULTRASALIN, Provider : Miguel A Barrera, Status: Pen, Time: 10:00 AM ULTRASALIN, Provider: Miguel A Barrera, Status: Pen, Time: 10:00 AM TQ-JZIBF-Ikjzwk 310 IVF Work Phone: Start: 06-05-2020 MAC Imaging Order MG-SEWER DIGGER-MAC 1200 [place] Work Phone: Start: 11-16-2019 IO Ultrasound, -Reproductive Endocrinology-[facility] chastity 206 Work Phone: Start: 11-14-2019 Blood count complete auto&auto difrntl wbc Complete Blood Count + Differential LP-FEMME-Xcmapy 310 IVF Work Phone: Start: 11-14-2019 Comprehensive metabolic 2000 panel QM-QGXIU-Byzvbc 310 IVF Work Phone: Start: 11-02-2019 Gonadotropin chorion ic quantitative HCG, Beta Quantitative MP-Reproductive Endocrinology-[place] chastity 206 Work Phone: Start: 10-11-2019 IO Ultrasound, limited pelvic, follicle monitoring IP-KFKYN-Lunwpi 310 IVF Work Phone: Start: 10-05-2019 IO Ultrasound, limited pelvic, follicle monitoring BO-QUFPN-Lfvmgk 320 Work Phone: Start: 2012 Screening for malignant neoplasm of cervix Pap smear [facility] Start: 2010 DTaP/Tdap/Td vaccine (1 - Tdap) DTaP/Tdap/Td vaccine (1 - Tdap) [facility] Start: 2009 Hepatitis C screening Hepatitis C sc reen [facility] Start: 2006 HIV screening HIV screen [facility] Start: 2003 Depression Screen Depression Screen [facility] Start: 1992 Varicella vaccine (1 of 2 - 2-dose childhood series) Varicella vaccine (1 of 2 - 2-dose childhood series) [facility] Start: 03-02-1992 COVID-19 Vaccine (#1) COVID-19 Vacci ne (#1) [facility] Assay of estradiol Estradiol, Serum MG-SEWER DIGGER-Risman 310 IVF Work Phone: Comment on above: Approx [id number] Approx [id number] Approx [id number] Assay of progesterone Progesterone, Serum XM-XQBAN-Knpyib 310 IVF Work Phone: Comment on above: Approx [id number] Gonadotropin luteinizing hormone Luteinizing Hormone, Serum FW-KEODR-Yzjffu 310 IVF Work Phone: Comment on above: Approx [id number] OK-TMMDN-Nfhxme 320 Work Phone: IO Ultrasound, l imited pelvic, follicle monitoring LF-JJGZP-Chbppx 310 IVF Work Phone: Comment on above: Approx [id number] Approx [id number] Approx [id number] NEGATED: Highlighted row has been ruled out! Planned Goals not documented XM-TNMXZ-Ihjpig 310 IVF Work Phone: Payers Date Payer Category Payer Self-pay 2016 Private Health Insurance [id number] 2016 Private Health Insurance [id number] 1991 Unknown [id number] 2.16.84 0.1.538844.3.579.2.593 1991 Unknown [id number] 2.16.84 0.1.282423.3.579.2.593 1991 Unknown [id number] 2.16.84 0.1.754610.3.579.2.593 1991 Unknown [id number] 2.16.84 0.1.451150.3.579.2.593 1991 Unknown [id number] 2.16.84 0.1.062085.3.579.2.593 1991 Unknown [id number] 2.16.84 0.1.817113.3.579.2.593 1991 Unknown [id number] 2.16.84 0.1.225337.3.579.2.593 1991 Unknown [id number] 2.16.84 0.1.695979.3.579.2.593 1991 Unknown [id number] 2.16.84 0.1.658471.3.579.2.593 1991 Unknown [id number] 2.16.84 0.1.972719.3.579.2.593 1991 Unknown [id number] 2.16.84 0.1.980474.3.579.2.593 1991 Unknown [id number] 2.16.84 0.1.978422.3.579.2.593 1991 Unknown [id number] 2.16.84 0.1.659396.3.579.2.593 1991 Unknown [id number] 2.16.84 0.1.132682.3.579.2.593 1991 Unknown [id number] 2.16.8 40.1.755514.3.579.2.173 1991 Unknown [id number] 2.16.8 40.1.478381.3.579.2.173 1991 Unknown [id number] 2.16.84 0.1.322421.3.579.2.1259 1991 Unknown [id number] 2.16.84 0.1.585249.3.579.2.1259 1991 Unknown [id number] 2.16.840 .1.497585.3.579.2.1259 1991 Unknown [id number] 2.16.840 .1.152881.3.579.2.1259 1991 Unknown [id number] 2.16. 840.1.281983.3.579.2.196 1991 Unknown [id number] 2.16. 840.1.037499.3.579.2.196 1959 Self-pay [id number] 1959 Unknown [id number] 1959 Unknown [id number] Unknown [id number] 2.16.8 40.1.971715.3.579.2.243 Unknown [id number] 2.16.8 40.1.870027.3.579.2.243 Unknown Unknown [id number] 2.16.8 40.1.390243.3.579.2.531 Social History Date Type Detail Facility - - [address] Work Phone: Start: 05-11-2023 End: 12-27-2023 Never a smoker Never a smoker [facility] Comment on above: [facility] ED; Start: 05-11-2023 End: 09-06-2023 Sex Assigned At [facility] Start: 09-22-2022 End: 04-15-2023 Tobacco smoking status NEIS Never smoked tobacco [employer] Phone: Start: 09-22-2022 End: 04-15-2023 Tobacco use and exposure Smokeless tobacco non-user [facility] [employer] Phone: Start: 1990 Sex Assigned At Not on file [facility] Phone: Start: 02-17-2023 End: 02-27-2023 Exposure to SARS-CoV-2 (event) Not sure [facility] Start: 12-27-2023 Alcohol intake Current drinke r of alcohol (finding) [facility] Frequency of Alcohol Consumption Not on file [facility] How many standard dr inks containing alcohol do you have on a typical day? 1 or 2 [facility] How often do you hav e 6 or more drinks on 1 occasion? Monthly [facility] Start: 06-25-2023 [facility] Functional Status Date Assessment Result Facility NEGATED: Highlighted row Functional performance Functional status health issues are not documented Disease JG-LLJNB-Aukwje 310 IVF Work Phone: Mental Status Date Assessment Result Facility NEGATED: Highlighted row Cognitive function [Interpretation] Cognitive status health issues are not documented Disease SF-WIZQY-Fhcajw 310 IVF Work Phone: History of Present illness Narrative 12-27-2023 ELIZABETH Daly - 12/27/2023 10:50 AM EST Note Date & Type Note Facility 12-27-2023 History of Presen t illness Narrative Reason for Appointment: Patient ID: Kiara Ashley is a 33 y.o. female who presents for Routine Visit Patient presents today for Return OB appointment. Current Medications: has a current medication list which includes the following prescription(s): albuterol hfa, calcium carb-cholecalciferol, cholecalciferol, enoxaparin sodium, famotidine, levothyroxine, loratadine, metoclopramide, dulera, pantoprazole, mv-min-fe fum-fa-dha, and progesterone. 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 Peroneal tendinitis of left lower extremity 03/29/2023 Metatarsalgia of left foot 03/29/2023 Second trimester 11/26/2023 Resolved Ambulatory Problems Diagnosis Date Noted No Resolved Ambulatory Problems Past Medical History: Diagnosis Date Asthma (CMS/HCC) Infection of obstetric surgical wound Protein S deficiency (CMS/HCC) Vaginal delivery Family History Problem Relation Name Age of Onset Arthritis Mother Cancer Maternal Grandmother Heart disease Paternal Grandmother Hyperlipidemia Paternal Grandmother Hypertension Paternal Grandmother Diabetes Paternal Grandmother Mental illness Paternal Grandmother COPD Paternal Grandmother Diabetes Paternal Grandfather Hypertension Paternal Grandfather Hyperlipidemia Paternal Grandfather Heart disease Paternal Grandfather Social History Tobacco Use Smoking status: Never Smokeless tobacco: Never Substance Use Topics Alcohol use: Yes Alcohol/week: 1.0 standard drink of alcohol Types: 1 Glasses of wine per week Drug use: Never Past Surgical History: Procedure Laterality Date FERTILITY SURGERY 2019 Invetro egg retrival WISDOM TOOTH EXTRACTION 11/15/2006 Allergies Allergen Reactions Progesterone Unknown Other Reaction(s): Other (See Comments) Injections with seseme seed oil Other Reaction(s): Not available Review of Systems: Review of Systems Constitutional: Negative. HENT: Negative. Eyes: Negative. Respiratory: Negative. Cardiovascular: Negative. Gastrointestinal: Negative. Musculoskeletal: Negative. Skin: Negative. Neurological: Negative. Psychiatric/Behavioral: Negative. All other systems reviewed and are negative. Hematological: Negative. Endocrine: Negative. Objective Physical Exam Constitutional: Appearance: Normal appearance. She is normal weight. HENT: Head: Normocephalic. Cardiovascular: Rate and Rhythm: Normal rate. Pulses: Normal pulses. Pulmonary: Effort: Pulmonary effort is normal. Breath sounds: Normal breath sounds. Abdominal: Palpations: Abdomen is soft. Musculoskeletal: General: Normal range of motion. Neurological: General: No focal deficit present. Mental Status: She is alert and oriented to person, place, and time. Psychiatric: Mood and Affect: Mood normal. Behavior: Behavior normal. Thought Content: Thought content normal. Judgment: Judgment normal. Vitals and nursing note reviewed. Vitals: Estimated body mass index is 34.84 kg/m as calculated from the following: Height as of 05/11/23: 5' 1 . Weight as of this encounter: 184 lb 6.4 oz. BP: 110/68 Patient's last menstrual period was 06/11/2023. Assessment/Plan Encounter Diagnoses Name Primary? Third trimester First trimester Hypothyroidism, unspecified type (CMS/HCC) Hypothyroidism (acquired) (CMS/HCC) H/O blood clots Excessive growth affecting management of in third trimester, single or unspecified fetus Patient presents today for a routine obstetrics appointment. Patient is currently 28w3d . Patient states she is doing well but has complaints of being tired due to current . Patient has verbalizes frequent movement. labor precautions was discussed/given and patient was instructed to perform kick counts three times a day. Pt continues with uri symptoms, she tried zpak and made her vomit. We will send in amoxicillin, synthroid refill sent in to pharmacy Follow Up: Patient is to return to office in 2 week for routine OB appointment. Documented by Annika Barroso LPN on behalf of: ELIZABETH Daly documented in this encounter [facility] Healthcare Evaluation note 12-27-2021 Note Date & Type [...] Patient care instructions given in writting by [facility] Care At Home document. [employer] Other Clinical Note 07-25-2021 Note Date & [...] care. Reviewed plan with Dr. Bruce Aburto, PUBLIC HOUSING MANAGER 07/25/2021 09:22 note: ob scan LOLLY: [...] Plan reviewed by Dr. Healy. Petra Lombardi PUBLIC HOUSING MANAGER 07/16/21 1409 TC to pt with quant = 3238 form yesterday; normal rise from 728 on 07/02; Pt doing well; no problems with Lovenox. [facility] for [facility] at [facility]. Bere Way RN 07/07/2021 11:47 Spoke with patient regarding WPVX=573. Pain=0. Patient states she will begin prometrium BID and Lovenox today. Patient will repeat BHCg on Wednesday when she is at work. Patient aware RN will call her WednesdayJuly 07 with results and plan. Lucy Dunlap R.N.07/03/2021 12:19 Spoke to patient, will start Prometrium 100 mg BID and Lovenox 40 mg BID today (+Protein S deficiency). Dundee to f/u with patient tomorrow once HCG level is back. Patient verbalized understanding. Rosibel Sam RN 07/02/2021 13:54 MD note: Reviewed positive test. LMP 05/29, conceived on christy cycle/IC. Plan to get HCG drawn today. Start Prometrium 100mg BID. Start Lovenox 40mg BID SQ. Plan per Dr. Healy. RN to communicate. Petra Lombardi [facility] 07/02/21 1304 Active Problems 16 weeks gestation [...] directed. Peak F (more content not included)... [employer] Chief complaint Narrative - Reported 06-19-2021 Note [...] 30 year-old who presents for a FET [id number] Hx:06/2020: IOL @ 38 weeks due to [...] contour on HSG - images reviewed from [facility] 08/2018Uterine Cavity Evaluation:Normal uterine cavity on HSG- [...] Ashley 04/09/1989A in past year:2.8 cc125 mil/mL69% xwwqpejhQTY=941 million(recent IUI sample)Morph from original SA was 2.8% MD-PVBHF-Wgriic 310 IVF Work Phone: Evaluation note Note Date & Type Note Facility Evaluation note Diagnosis Sprain of left ankle, unspecified ligament, initial encounter- Primary documented in this encounter [employer] Work Phone: Evaluation note Note Date & Type Note Facility Evaluation note Diagnosis Third trimester state, incidental First trimester state, incidental Hypothyroidism, unspecified type (CMS/HCC) Hypothyroidism (acquired) (CMS/HCC) Unspecified hypothyroidism H/O blood clots Excessive growth affecting management of in third trimester, single or unspecified fetus documented in this encounter [facility] Discharge instructions Attachments Note Date & Type Note Facility Hospital Discharge instructions The following attachments cannot be sent through Care Everywhere.Ankle Sprain (Lithuanian)Ankle Sprain: Rehab Exercises (Lithuanian)documented in this encounter [employer] Phone: Summary Purpose Family History No Family [...] section and content) DATE CREATED AUTHOR 02/15/2019 [facility] DATE CREATED AUTHOR AUTHOR'S ORGANIZ ATION 11/12/2019 [facility] DATE CREATED AUTHOR AUTHOR'S ORGANIZ ATION 08/09/2020 [facility] DATE CREATED AUTHOR AUTHOR'S ORGANIZ ATION 07/26/2021 [employer] DATE CREATED AUTHOR AUTHOR'S ORGANIZ ATION 01/21/2023 [facility] DATE CREATED AUTHOR AUTHOR'S ORGANIZ ATION 03/06/2023 [facility] DATE CREATED AUTHOR AUTHOR'S ORGANIZ ATION 07/12/2023 [facility] DATE CREATED AUTHOR AUTHOR'S ORGANIZ ATION 10/04/2023 [facility] DATE CREATED AUTHOR AUTHOR'S ORGANIZ ATION 12/28/2023 [facility] EPIC DATE CREATED AUTHOR AUTHOR'S ORGANIZ ATION 01/15/2024 [facility] REASON FOR VISIT (unrecogniz ed section and content) Reason Comments Ankle Pain Rolled ankle during morning run. Swelling to lateral ankle. Took ibuprofen and tylenol [employer]. Reason Comments Routine Visit Care Teams (unrecognized sec tion and content) Social Welfare Research Worker Relationship Specialty Start Date End Date Evelyn Perez [address] [place] [phone] PCP - General Pediatrics 09/22/22 Social Welfare Research Worker Relationship Specialty Start Date End Date Jesse Regan MD [address] [place] [address] PCP - General Family Medicine 11/30/23 FOR RECORDS PERTAINING TO PATIENTS WHO ARE [...] BE BASED ON THE PRIMARY CLINICAL RECORDS. [facility] [employer] [facility]. provides no warranty or guarantee of the accuracy or completeness of information in this document.
--- NOTE | 2024-01-24 10:52 | US_ITS ---
[address] [address] Patient Name: ELVIN STUART MRN: [facility]:[id number] date: 1990 Sex: F Assigned Patient Location: [facility] Current Patient Location: Accession/Order Number: [id number] Exam Date: 01/24/2024 10:53 Report Date: 01/24/2024 11:46 At the request of: RADAMES CHAUHAN Procedure: US OB BPP w non-stress EXAMINATION: US OB BPP w non-stress HISTORY: HYPOTHYROIDISM COMPARISON: No relevant comparison available. TECHNIQUE: Ultrasound biophysical profile was performed in the radiology department. FINDINGS: BREATHING MOVEMENTS: 2.0 GROSS BODY MOVEMENTS: 2.0 TONE: 2.0 QUALITATIVE AMNIOTIC FLUID VOLUME: 2.0 PRESENTATION: CEPHALIC HEART RATE: 131.7 bpm H.B./min AMNIOTIC FLUID VOLUME: 16.6 cm cm GESTATIONAL AGE: 32 weeks 2 days CONCLUSION: Total biophysical profile score: 8.0 Electronically authenticated by: JESSE THOMAS Date: 01/24/2024 11:46
[2024-01-24 11:09] VITALS: BP 115/56; PULSE 81
== END 2024-01-24 11:30 | disposition home or self-care (01) ==
LOC: US 07:41 → FBC 10:55
PROVIDERS: Visit Provider Obstetrics & Gynecology
DX: E03.9 Hypothyroidism, unspecified (principal); Z86.718 Personal history of other venous thrombosis and embolism; O36.63X0 Maternal care for excessive fetal growth, third trimester, not applicable or unspecified; Z3A.32 32 weeks gestation of pregnancy
CPT/HCPCS: 76818

== ENCOUNTER 2024-01-27 07:04 | Outpatient (OUT) | payer OTHER, SELFPAY ==
--- OUTSIDE RECORDS SUMMARY | 2024-01-27 07:08 | XMS_ITS | CCD ---
Author Name Unknown Address [id number] [place] [address] Organization [facility] Care Team Providers Care Construction Supervisor Name Role Phone Bruce Mayes Attending Unavailable [...] HER Unavailable Unavaila ble OBGYN IVF RDMS [id number] 1, MG OBGYN Unavailable Unavailable King Guevara Unavailable Unavailable Shahla Healy Unavailable Unavailable January, Jami Unavailable Unavailable Evelyn Perez Unavailable Unavailable Unavailable Unavailable Unavailable Sabina Barnhart Unavailable DR EVELYN PEREZ Primary Care Unavail able GISSEL Diane, DR [...] Unavailable Ana, Evelyn Husain Primary Care Provider JAMI ROMERO Attending Unavailable EVELYN PEREZ Primary Care UnavailEVELYN Tomlinson Primary Care UnavailLc Rick Admitting Unavailable Evelyn Perez Primary Care Lc Khanna Attending Unavailable Jesse Regan MD Primary Care Provider Link [facility], Zoya Cheung Attending Zamzamva Evelyn Alfonso MD Primary Care Zamzam vailasánchez Perez MD, Evelyn Gracia Primary Care Zamzam vailable Link [facility], Zoya Cheung Attending Unava DEMARIO Hoang Attending Unavailable BERE STEEL Attending Unavailable BERE STEEL Attending Unavailable DEMARIO RIBEIRO Attending Unavailable DEMARIO RIBEIRO Attending Unavailable ELSA, BERE Attending Unavailable Allergies Allergy Classification Reported Allergen(s) Allergy Type Date of Onset Reaction(s) Facility Progesterone (2 sources) Progesterone; Translations: [Progesterone OIL] Drug Allergy [id number] IVF Work Phone: (16 sources) Progesterone; Translations: [Progesterone OIL] Drug Allergy [facility] (2 sources) sesame seed extract Drug Allergy [facility] Repository (2 sources) Progesterone Drug Allergy 2 [facility] (1 source) No Known Medication Allergies; Translations: [No Known Medication Allergies] Propensity to adverse reactions to drug (disorder) [facility] Repository Medications Current Medications Medication Drug [...] Active Start: 09-22-2022 take 1 tablet by immanuel four times daily metoclopramide (REGLAN) 10 MG [...] NEEDED FOR PAIN. Quantity: 10 Refills: 0 Kelecih Gage MD Start : 14-Aug-2019 Active [id number] 200 actuat albuterol 0.09 mg/actuat metered dose [...] DO Start : 19-Jan-2019 Active BD Disp [place] 27G X 1/2 (19 sources) Start: 10-03-2019 BD Disp Needle s 27G X 1/2 USE DIRECTED. Quantity: 2 Refills: 2 Shahla Healy MD Start : 03-Oct-2019 Active chorionic gonadotropin 11648 unt/ml injectable solution (19 sources) Gonadotropin Start: 10-03-2019 Chorionic Gonadotropin 67448 UNIT Intramuscular Solution Reconstituted USE DIRECTED. Quantity: [...] Start : 25-Dec-2019 Active Peak Flow Meter [place] Rang Device (3 sources) Start: 01-23-2020 Peak Flow Mete r [place] Rang Device USE DIRECTED. Quantity: 1 Refills: [...] refills. Continue with anticoagulation as prescribed by RAIL CAR MECHANIC, patient is currently 30 weeks gestation. Follow-up [...] embolism Historical No qualifying data Procedure/Surgical History Ralph Teeth Removal (2005) IVF (11/15/2018) Medications Dulera [...] Link Zoya PERKINS 01/10/24 12:40 EST Normal [facility] Phone Note - Heme Onc-medica tion questionon 07-12-2023 Phone Note - Heme Onc-medication question Phone Call Information: Patient Demographics: Name: KIARA ASHLYE Date: 1990 Address: [address] [place] [address] Date and Time: 12-Jul-2023 09:31 Caller Information: call from Call From: patient Caller Name: Kiara Primary Phone Number: [phone] Reason for Call: Reason for Callmedication question [...] asked for script to be sent to [facility]. Script sent. Pt had no further questions or concerns at this time. Harmony Ross 07/12/2023 09:54 LamHarmony aguiar 07/12/2023 09:57 Outpatient Medication Profile: * Patient [...] (Signed 12-Jul-2023 09:57) Authored: Phone Call Information Virginia Ashli (UNIT SECT) (Signed 12-Jul-2023 09:31) Authored: Phone [...] Dario William MD 02/27/23 Final result Normal [facility] 1. No acute osseous abnormality involving the left ankle. [facility] EXAMINATION: THREE XRAY VIEWS OF THE LEFT ANKLE 02/27/2023 11:46 am COMPARISON: None. HISTORY: ORDERING SYSTEM PROVIDED HISTORY: pain, swelling TECHNOLOGIST PROVIDED HISTORY: pain, swelling FINDINGS: The bone mineralization is within normal limits. The ankle mortise is stable. No acute fractures or dislocations are seen. There is no soft tissue swelling. [facility] Dario William MD - 02/27/2023 EXAMINATION: [...] acute osseous abnormality involving the left ankle. [employer] Phone: Radiology Study observation (narrative) [employer] Phone: XR ANKLE LEFT (MIN 3 VIEWS)O rdered By: Dario Stewart on 02-27-2023 [facility] inFreeDA Phone: PAP ACOG PANEL 2: 30 to 65on 01-19-2023 . . Normal [facility] Comment on above: Result Comment: Perf ormed at: WB Performed By: #### [id number] #### [facility] [address] [address] [address] Claire Mayes Age Gdln ACOG Testing 30-65 Normal [facility] Comment on above: Performed By: #### [id number] #### [facility] [address] [address] [address] Claire Mayes DIAGNOSIS: Comment Normal [facility] Comment on above: Result Comment: NEGA TIVE FOR INTRAEPITHELIAL LESION OR MALIGNANCY. Performed at: WB Performed By: #### [id number] #### [facility] [address] [address] [address] Claire Mayes HPV Aptima Negative Normal Negative [facility] Comment on above: Result Comment: This nucleic acid amplification test detects fourteen high-risk HPV types (16,18,31,33,35,39,45,51,52,56,58,59,66,68) without differentiation. Performed at: =G Performed By: #### [id number] #### [facility] [address] [address] [address] Claire Mayes HPV Genotype Reflex Comment Normal [facility] Comment on above: Result Comment: Crit eria not met, HPV Genotype not performed. Performed at: WB Performed By: #### [id number] #### [facility] [address] [address] [address] Claire Mayes Methodology: Comment Normal [facility] Comment on above: Result Comment: This liquid based ThinPrep(R) pap test was screened with the use of an image guided system. Performed at: WB Performed By: #### [id number] #### [facility] [address] [place] [address] Dr. Claire Mayes Note: Comment Normal [facility] Comment on above: Result Comment: The Pap smear is a screening test designed to aid in the detection of premalignant and malignant conditions of the uterine cervix. It is not a diagnostic procedure and should not be used as the sole means of detecting cervical cancer. Both false-positive and false-negative reports do occur. . Performed at: WB Performed By: #### [id number] #### [facility] [address] [place] [address] Dr. Claire Mayes Performed by: Comment Normal [facility] Comment on above: Result Comment: Sherlyn Wright, Motor Vehicle Operator Road Supervisor (ASCP) Performed at: WB Performed By: #### [id number] #### [facility] [address] [place] [address] Dr. Clarie Mayes Specimen adequacy: Comment Normal [facility] Comment on above: Result Comment: Sati sfactory for evaluation. No endocervical component is identified. Performed at: WB Performed By: #### 4 [id number] #### [facility] [address] [place] [address] Dr. Claire Mayes CBC with Diffon 09-22-2022 Abs. Basophil 0.03 k/uL Normal 0.00-0.20 [facility] Comment on above: Performed By: #### L BJ BUCK, CP #### [facility] [address] [place] [address] Junior Mechanical Engineer: Jesse Curry MD Abs.Imm.Granulocy te 0.04 k/uL Normal 0.00-0.30 [facility] Comment on above: Performed By: #### L IP CDP, CP #### [facility] [address] [place], [place] [id number] Junior Mechanical Engineer: Jesse Curry MD Abs.Neutrophil (Seg) 12.54 k/uL High 1.50-8.10 [facility] Comment on above: Performed By: #### L IP, CDP, CP #### [address] [place], [facility] Junior Mechanical Engineer: Jesse Curry MD Basophils/100 WBC (Bld) 0 % Normal 0-2 [facility] Comment on above: Performed By: #### L IP, CDP, CP #### [address] [place], [place] [address] Junior Mechanical Engineer: Jesse Curry MD Eosinophils (Bld) [#/Vol] 0.16 10*3/uL Normal 0.00-0.44 [facility] Comment on above: Performed By: #### L IP, CDP, CP #### [address] [place] [id number] Junior Mechanical Engineer: Jesse Curry MD Eosinophils/100 WBC (Bld) 1 % Normal 1-4 [facility] Comment on above: Performed By: #### L CIELO CDP, CP #### [address] [place], [facility] Junior Mechanical Engineer: Jesse Curry MD Erythrocyte distribution width (RBC) [Ratio] 13.6 % Normal 11.8-14.4 [facility] Comment on above: Performed By: #### L IP CDP, CP #### [address] [place], [facility] Junior Mechanical Engineer: Jesse Curry MD Hematocrit (Bld) [Volume fraction] 46.4 % Normal 36.3-47.1 [facility] Comment on above: Performed By: #### L IP, CDP, CP #### [address] [place] [address] Junior Mechanical Engineer: Jesse Curry MD Hemoglobin (Bld) [Mass/Vol] 15.6 g/dL High 11.9-15.1 [facility] Comment on above: Performed By: #### L IP, CDP, CP #### [facility] [address] [place], [place] [address] Junior Mechanical Engineer: Jesse Curry MD Immature granulocytes/100 WBC (Bld) 0 % Normal 0 [facility] Comment on above: Performed By: #### L IP, CDP, CP #### [facility] [address] [place], [place] [address] Junior Mechanical Engineer: Jesse Curry MD Lymphocytes (Bld) [#/Vol] 0.98 10*3/uL Low 1.10-3.70 [facility] Comment on above: Performed By: #### L IP, CDP, CP #### [address] [place], [facility] Junior Mechanical Engineer: Jesse Curry MD Lymphocytes/100 WBC (Bld) 7 % Low 24-43 [facility] Comment on above: Performed By: #### L IP, CDP, CP #### [address] [place], [facility] Junior Mechanical Engineer: Jesse Curry MD MCH (RBC) [Entitic mass] 30.4 pg Normal 25.2-33.5 [facility] Comment on above: Performed By: #### L IP CDP, CP #### [address] [place], [place] [address] Junior Mechanical Engineer: Jesse Curry MD MCHC (RBC) [Mass/Vol] 33.6 g/dL Normal 28.4-34.8 [facility] Comment on above: Performed By: #### L IP, CDP, CP #### [address] [place], [place] [address]83 Junior Mechanical Engineer: Jesse Curry MD MCV (RBC) [Entitic vol] 90.3 fL Normal 82.6-102.9 [facility] Comment on above: Performed By: #### L IP, CDP, CP #### [facility] [address] [place] [address] Junior Mechanical Engineer: Jesse Curry MD Monocytes (Bld) [#/Vol] 0.58 10*3/uL Normal 0.10-1.20 [facility] Comment on above: Performed By: #### L IP, CDP, CP #### [address] [place], [facility] Junior Mechanical Engineer: Jesse Curry MD Monocytes/100 WBC (Bld) 4 % Normal 3-12 [facility] Comment on above: Performed By: #### L IP, CDP, CP #### [address] [place], [place] [address] Junior Mechanical Engineer: Jesse Curry MD Neutrophil (Seg) 88 % High 36-65 [facility] Comment on above: Performed By: #### L IP, CDP, CP #### [address] [place], [facility]83 Junior Mechanical Engineer: Jesse Curry MD NRBC Automated 0.0 per 100 WBC Normal 0.0 [facility] Comment on above: Performed By: #### L IP, CDP, CP #### [address] [place], [facility]83 Junior Mechanical Engineer: Jesse Curry MD Platelet mean volume (Bld) [Entitic vol] 9.9 fL Normal 8.1-13.5 [facility] Comment on above: Performed By: #### L IP, CDP, CP #### [address] [place], [facility]83 Junior Mechanical Engineer: Jesse Curry MD Platelets (Bld) [#/Vol] 299 10*3/uL Normal 138-453 [facility] Comment on above: Performed By: #### L IP, CDP, CP #### [address] [place], [facility]83 Junior Mechanical Engineer: Jesse Curry MD RBC (Bld) [#/Vol] 5.14 10*6/uL High 3.95-5.11 [facility] Comment on above: Performed By: #### L IP, CDP, CP #### [facility] [address] [place], [place] [id number] Junior Mechanical Engineer: Jesse Curry MD WBC (Bld) [#/Vol] 14.3 10*3/uL High 3.5-11.3 [facility] Comment on above: Performed By: #### L IP, BJ, CP #### [facility] [address] [place], [place] [id number] Junior Mechanical Engineer: Jesse Curry MD CT ABDOMEN PELVIS [...] A Maldonado DO 09/22/22 Final result Normal [facility] Comp Metabolic Profon 2021 Albumin [Mass/Vol] 4.7 g/dL Normal 3.5-5.2 [facility] Comment on above: Performed By: #### L IP, CDP, CP #### [facility] [address] [place] [address] [place] [address] Junior Mechanical Engineer: Jesse Curry MD Albumin/Glob Ratio 2.0 Normal 1.0-2.5 [facility] Comment on above: Performed By: #### L IP, CDP, CP #### [facility] [address] [place] [address] Dr[place], [place] [id number] Junior Mechanical Engineer: Jesse Curry MD Alkaline Phos 77 U/L Normal 35-104 [facility] Comment on above: Performed By: #### L IP, CDP, CP #### [address] [place], [place] [address]483 Junior Mechanical Engineer: Jesse Curry MD ALT [Catalytic activity/Vol] 10 U/L Normal 5-33 [facility] Comment on above: Performed By: #### L IP, CDP, CP #### [facility] [address] [place], [place] [address]383 Junior Mechanical Engineer: Jesse Curry MD Anion gap [Moles/Vol] 12 mmol/L Normal 9-17 [facility] Comment on above: Performed By: #### L IP, CDP, CP #### [facility] [address] [place], [place] [address]697383 Junior Mechanical Engineer: Jesse Curry MD AST [Catalytic activity/Vol] 14 U/L Normal <32 [facility] Comment on above: Performed By: #### L IP, CDP, CP #### [facility] [address] [place], [place] [address]383 Junior Mechanical Engineer: Jesse Curry MD Bilirubin [Mass/Vol] 0.6 mg/dL Normal 0.3-1.2 [facility] Comment on above: Performed By: #### L IP, CDP, CP #### [facility] [address] [place], [place] [address] Junior Mechanical Engineer: Jesse Curry MD BUN/CRE Ratio 31 High 9-20 [facility] Comment on above: Performed By: #### L IP, CDP, CP #### [address] [place], [place] 2256383 Junior Mechanical Engineer: Jesse Curry MD Calcium [Mass/Vol] 9.8 mg/dL Normal 8.6-10.4 [facility] Comment on above: Performed By: #### L IP, CDP, CP #### [address] [place], [place] [address]83 Junior Mechanical Engineer: Jesse Curry MD Chloride [Moles/Vol] 104 mmol/L Normal 98-107 [facility] Comment on above: Performed By: #### L IP, CDP, CP #### [facility] [address] [place] [address] Dr[place], [place] 6239183 Junior Mechanical Engineer: Jesse Curry MD CO2 [Moles/Vol] 22 mmol/L Normal 20-31 [facility] Comment on above: Performed By: #### L IP, CDP, CP #### [facility] [address] [place] [address] Dr[place], [place] 8638383 Junior Mechanical Engineer: Jesse Curry MD Creatinine [Mass/Vol] 0.85 mg/dL Normal 0.50-0.90 [facility] Comment on above: Performed By: #### L IP, CDP, CP #### [facility] [address] [place] [address] [place] [address] Junior Mechanical Engineer: Jesse Curry MD GFR/1.73 sq M.predicted among non-blacks MDRD (S/P/Bld) [Vol rate/Area] mL/min/{1.73_m2} Normal >60 [facility] Comment on above: Result Comment: Effective [...] By: #### L IP CDP, CP #### [address] [place] [address] Junior Mechanical Engineer: Jesse Curry MD Glucose [Mass/Vol] 109 mg/dL High 70-99 [facility] Comment on above: Performed By: #### L IP CDP, CP #### [address] [place] [address] Junior Mechanical Engineer: Jesse Curry MD Potassium [Moles/Vol] 4.0 mmol/L Normal 3.7-5.3 [facility] Comment on above: Performed By: #### L IP CDP, CP #### [address] [place] [address] Junior Mechanical Engineer: Jesse Curry MD Protein [Mass/Vol] 7.1 g/dL Normal 6.4-8.3 [facility] Comment on above: Performed By: #### L IP, CDP, CP #### [address] [place] [address] Junior Mechanical Engineer: Jesse Curry MD Sodium [Moles/Vol] 138 mmol/L Normal 135-144 [facility] Comment on above: Performed By: #### L IP, CDP, CP #### [facility] [address] [place] [address] Junior Mechanical Engineer: Jesse Curry MD Urea nitrogen [Mass/Vol] 26 mg/dL High 6-20 [facility] Comment on above: Performed By: #### L BJ BUCK, CP #### [facility] [address] [place] [address] Junior Mechanical Engineer: Jesse Curry MD HCG, ,Urineon 09-22 Beta HCG ( test) Ql (U) Negative Normal NEG [facility] Comment on above: Result Comment: Spec imens with hCG levels near the threshold of the test (25 mIU/mL) may give a negative or indeterminate result. In such cases, another test should be performed with a new specimen in 48-72 hours. If early is suspected clinically in this setting, correlation with quantitative serum b-hCG level is suggested. [facility] has confirmed the use of plasma for this test. This has not been cleared or approved by the U.S. Food and Drug Administration. The FDA has determined that such clearance is not necessary. Performed By: #### U HCG #### [facility] [address] [place] [address] Junior Mechanical Engineer: Jesse Curry MD Lactic Acidon Lactate [Moles/Vol] 1.8 mmol/L Normal 0.5-2.2 [facility] Comment on above: Performed By: #### L ACTIC #### [facility] [address] [place] [address] Junior Mechanical Engineer: Jesse Curry MD Lipaseon 09-22-2022 Lipase [Catalytic activity/Vol] 39 U/L Normal 13-60 [facility] Comment on above: Performed By: #### L BJ BUCK, CP #### [facility] [address] [place] [address] Junior Mechanical Engineer: Jesse Curry MD UA w/Reflex Cultureon 2021 Bilirubin, SemiQt,Ur Negative Normal NEG [facility] Comment on above: Performed By: #### U MICAO, UAX #### [facility] [address] [place], [place] [id number] Junior Mechanical Engineer: Jesse Curry MD Blood, Urine Negative Normal NEG [facility] Comment on above: Performed By: #### U MICAO, UAX #### [facility] [address] [place], [place] [id number] Junior Mechanical Engineer: Jesse Curry MD Clarity (U) Clear Normal CLEAR [facility] Comment on above: Performed By: #### U MICAO, UAX #### [address] [place], [place] 7128183 Junior Mechanical Engineer: Jesse Curry MD Color (U) Yellow Normal YEL [facility] Comment on above: Performed By: #### U MICAO, UAX #### [facility] [address] [place] [address] Dr[place], [place] 1936983 Junior Mechanical Engineer: Jesse Curry MD Glucose Ql (U) Negative Normal NEG [facility] Comment on above: Performed By: #### U MICAO, UAX #### [address] [place], [place] [id number] Junior Mechanical Engineer: Jesse Curry MD Ketones Ql (U) Negative Normal NEG [facility] in Hospital Comment on above: Performed By: #### U MICAO, UAX #### [facility] [address] [place] [address] [place], [place] 258[address]83 Junior Mechanical Engineer: Jesse Curry MD Leukocyte esterase Test strip Ql (U) Negative Normal NEG [facility] Comment on above: Performed By: #### U MICAO, UAX #### [address] [place], [place] 36[address]83 Junior Mechanical Engineer: Jesse Curry MD Nitrite,Ur Negative Normal NEG [facility] Comment on above: Performed By: #### U MICAO, UAX #### [facility] [address] [place], [place] 34[address]483 Junior Mechanical Engineer: Jesse Curry MD PH,Ur 8.0 Normal 5.0-9.0 [facility] Comment on above: Performed By: #### U MICAO, UAX #### [facility] [address] [place], [place] [address]83 Junior Mechanical Engineer: Jesse Curry MD Protein Ql (U) Negative Normal NEG [facility] Comment on above: Performed By: #### U MICAO, UAX #### [facility] [address] [place], [place] 775[address]83 Junior Mechanical Engineer: Jesse Curry MD Spec. [place],Ur 1.020 Normal 1.010-1.020 [facility] Comment on above: Performed By: #### U MICAO, UAX #### [facility] [address] [place] [address] Dr[place], [place] 7358683 Junior Mechanical Engineer: Jesse Curry MD Urobilinogen,Ur Normal Normal NORM [facility] Comment on above: Performed By: #### U MICAO, UAX #### [address] [place], [place] [address]83 Junior Mechanical Engineer: Jesse Curry MD Urinalysis,Microon 2 Bacteria TRACE Abnormal NONE [facility] Comment on above: Performed By: #### U MICAO, UAX #### [facility] [address] [place], [place] [address]683 Junior Mechanical Engineer: Jesse Curry MD Epithelial cells LM Ql (Urine sed) 0 TO 2 Normal 0-25 [facility] Comment on above: Performed By: #### U MICAO, UAX #### [facility] [address] [place], [place] [id number] Junior Mechanical Engineer: Jesse Curry MD Urine RBC's None Normal 0-2 [facility] Comment on above: Performed By: #### U DARIO UAX #### [facility] [address] [place] [address] Junior Mechanical Engineer: Jesse Curry MD Urine WBC's 0 TO 2 Normal 0-5 [facility] Comment on above: Performed By: #### U DARIO UAX #### [facility] [address] [place] [address] Junior Mechanical Engineer: Jesse Curry MD CBC AUTO DIFFon 02-20-2022 BASO # 0.1 103/ul Normal 0.0-0.1 [facility] Comment on above: Performed By: #### C BC #### [facility] [address] [place] [address] Dr. Claire Mayes Basophils/100 WBC (Bld) 0.8 % Normal 0.2-2.0 [facility] Comment on above: Performed By: #### C BC #### [facility] [address] [place] [address] Dr. Claire Mayes EO # 0.2 103/ul Normal 0.0-0.7 [facility] Comment on above: Performed By: #### C BC #### [facility] [address] [place] [address] Dr. Claire Mayes Eosinophils/100 WBC (Bld) 0.9 % Normal 0.9-7.0 [facility] Comment on above: Performed By: #### C BC #### [facility] [address] [place] [address] Dr. Claire Mayes Erythrocyte distribution width (RBC) [Ratio] 15.0 % Normal 11.0-15.0 [facility] Comment on above: Performed By: #### C BC #### [facility] [address] [place] [address] Dr. Claire Mayes Hematocrit (Bld) [Volume fraction] 31.3 % Critically low 36.0-48.0 [facility] Comment on above: Performed By: #### C BC #### [facility] [address] [address] [address] Claire Mayes Hemoglobin (Bld) [Mass/Vol] 10.3 g/dL Critically low 12.0-16.0 [facility] Comment on above: Performed By: #### C BC #### [facility] [address] [address] [address] Claire Mayes IG # 0.21 10e3/ul Critically high 0.00-0.03 [facility] Comment on above: Performed By: #### C BC #### [facility] [address] [address] [address] Claire Mayes IG % 1.3 % Critically high 0.0-0.5 [facility] Comment on above: Performed By: #### C BC #### [facility] [address] [place] [address] Dr. Claire Mayes LYMPH # 2.1 103/ul Normal 1.2-3.8 [facility] Comment on above: Performed By: #### C BC #### [facility] [address] [place] [address] Dr. Claire Mayes Lymphocytes/100 WBC (Bld) 12.6 % Critically low 20.5-60.0 [facility] Comment on above: Performed By: #### C BC #### [facility] [address] [place] [address] Dr. Claire Mayes MANUAL DIFF REQ NO Normal [facility] Comment on above: Performed By: #### C BC #### [facility] [address] [address] [address] Claire Mayes MCH (RBC) [Entitic mass] 29.8 pg Normal 26.7-34.0 [facility] Comment on above: Performed By: #### C BC #### [facility] [address] [place] [address] Dr. Claire Mayes MCHC (RBC) [Mass/Vol] 32.9 g/dL Normal 29.9-35.2 [facility] Comment on above: Performed By: #### C BC #### [facility] [address] [place] [address] Dr. Claire Mayes MCV (RBC) [Entitic vol] 90.5 fL Normal 81.0-99.0 [facility] Comment on above: Performed By: #### C BC #### [facility] [address] [place] [address] Dr. Claire Mayes MONO # 0.8 103/ul Normal 0.3-0.8 [facility] Comment on above: Performed By: #### C BC #### [facility] [address] [place] [address] Dr. Claire Mayes Monocytes/100 WBC (Bld) 5.1 % Normal 1.7-12.0 [facility] Comment on above: Performed By: #### C BC #### [facility] [address] [place] [address] Dr. Claire Mayes NEUT # 13.2 103/ul Critically high 1.4-6.5 [facility] Comment on above: Performed By: #### C BC #### [facility] [address] [place] [address] Dr. Claire Mayes Neutrophils/100 WBC (Bld) 79.3 % Critically high 43.0-75.0 [facility] Comment on above: Performed By: #### C BC #### [facility] [address] [place] [address] Dr. Claire Mayes Platelet mean volume (Bld) [Entitic vol] 10.4 fL Normal 9.5-13.5 [facility] Comment on above: Performed By: #### C BC #### [facility] [address] [place] [address] Dr. Claire Mayes PLT 233 103/ul Normal 150-450 [facility] Comment on above: Performed By: #### C BC #### [facility] [address] [place] [address] Dr. Claire Mayes RBC 3.46 106/ul Critically low 4.20-5.40 [facility] Comment on above: Performed By: #### C BC #### [facility] [address] [place] [address] Dr. Claire Mayes WBC 16.6 103/ul Critically high 4.0-11.0 [facility] Comment on above: Performed By: #### C BC #### [facility] [address] [place] [address] Dr. Claire Mayes CBC AUTO DIFFon 02-18-2022 BASO # 0.1 103/ul Normal 0.0-0.1 [facility] Comment on above: Performed By: #### C BC #### [facility] [address] [place] [address] Dr. Claire Mayes Basophils/100 WBC (Bld) 0.7 % Normal 0.2-2.0 [facility] Comment on above: Performed By: #### C BC #### [facility] [address] [place] [address] Dr. Claire Mayes EO # 0.2 103/ul Normal 0.0-0.7 [facility] Comment on above: Performed By: #### C BC #### [facility] [address] [place] [address] Dr. Claire Mayes Eosinophils/100 WBC (Bld) 1.2 % Normal 0.9-7.0 [facility] Comment on above: Performed By: #### C BC #### [facility] [address] [place] [address] Dr. Claire Mayes Erythrocyte distribution width (RBC) [Ratio] 15.0 % Normal 11.0-15.0 [facility] Comment on above: Performed By: #### C BC #### [facility] [address] [place] [address] Dr. Claire Mayes Hematocrit (Bld) [Volume fraction] 35.1 % Critically low 36.0-48.0 [facility] Comment on above: Performed By: #### C BC #### [facility] [address] [place] [address] Dr. Claire Mayes Hemoglobin (Bld) [Mass/Vol] 11.8 g/dL Critically low 12.0-16.0 [facility] Comment on above: Performed By: #### C BC #### [facility] [address] [place] [address] Dr. Claire Mayes IG # 0.30 10e3/ul Critically high 0.00-0.03 [facility] Comment on above: Performed By: #### C BC #### [facility] [address] [place] [address] Dr. Claire Mayes IG % 1.9 % Critically high 0.0-0.5 [facility] Comment on above: Performed By: #### C BC #### [facility] [address] [place] [address] Dr. Claire Mayes LYMPH # 2.9 103/ul Normal 1.2-3.8 [facility] Comment on above: Performed By: #### C BC #### [facility] [address] [place] [address] Dr. Claire Mayes Lymphocytes/100 WBC (Bld) 18.5 % Critically low 20.5-60.0 [facility] Comment on above: Performed By: #### C BC #### [facility] [address] [place] [address] Dr. Claire Mayes MANUAL DIFF REQ NO Normal [facility] Comment on above: Performed By: #### C BC #### [facility] [address] [place] [address] Dr. Claire Mayes MCH (RBC) [Entitic mass] 30.2 pg Normal 26.7-34.0 [facility] Comment on above: Performed By: #### C BC #### [facility] [address] [place] [address] Dr. Claire Mayes MCHC (RBC) [Mass/Vol] 33.6 g/dL Normal 29.9-35.2 [facility] Comment on above: Performed By: #### C BC #### [facility] [address] [place] [address] Dr. Claire Mayes MCV (RBC) [Entitic vol] 89.8 fL Normal 81.0-99.0 [facility] Comment on above: Performed By: #### C BC #### [facility] [address] [place] [address] Dr. Claire Mayes MONO # 0.7 103/ul Normal 0.3-0.8 [facility] Comment on above: Performed By: #### C BC #### [facility] [address] [place] [address] Dr. Claire Mayes Monocytes/100 WBC (Bld) 4.7 % Normal 1.7-12.0 [facility] Comment on above: Performed By: #### C BC #### [facility] [address] [place] [address] Dr. Claire Mayes NEUT # 11.3 103/ul Critically high 1.4-6.5 [facility] Comment on above: Performed By: #### C BC #### [facility] [address] [place] [address] Dr. Claire Mayes Neutrophils/100 WBC (Bld) 73.0 % Normal 43.0-75.0 [facility] Comment on above: Performed By: #### C BC #### [facility] [address] [place] [address] Dr. Claire Mayes Platelet mean volume (Bld) [Entitic vol] 10.8 fL Normal 9.5-13.5 [facility] Comment on above: Performed By: #### C BC #### [facility] [address] [place] [address] Dr. Claire Mayes PLT 233 103/ul Normal 150-450 [facility] Comment on above: Performed By: #### C BC #### [facility] [address] [place] [address] Dr. Claire Mayes RBC 3.91 106/ul Critically low 4.20-5.40 [facility] Comment on above: Performed By: #### C BC #### [facility] [address] [place] [address] Dr. Claire Mayes WBC 15.5 103/ul Critically high 4.0-11.0 [facility] Comment on above: Performed By: #### C BC #### [facility] [address] [place] [address] Dr. Claire Mayes Covid-19 PCR ([facility])on SARS-CoV-2 (COVID-19) RNA FERDINAND+probe Ql (Unsp spec) Not detected Normal NOT DETECTED [facility] Comment on above: Result Comment: When [...] for this test is supported by the [employer] Developer of Health and Human Service's declaration that [...] used). Performed By: #### C VDTBH #### [facility] [address] [place] [address] Dr. Claire Mayes DRUG SCREEN RAPID (URINE)on 02-18-2022 AMP Negative Normal NEGATIVE [facility] Comment on above: Performed By: #### D RUGRPD #### [facility] [address] [place] [address] Dr. Claire Mayes BAR Negative Normal NEGATIVE [facility] Comment on above: Performed By: #### D RUGRPD #### [facility] [address] [place] [address] Dr. Claire Mayes BUP Negative Normal NEGATIVE [facility] Comment on above: Performed By: #### D RUGRPD #### [facility] [address] [place] [address] Dr. Claire Mayes BZO Negative Normal NEGATIVE [facility] Comment on above: Performed By: #### D RUGRPD #### [facility] [address] [place] [address] Dr. Claire Mayes KIT Negative Normal NEGATIVE [facility] Comment on above: Performed By: #### D RUGRPD #### [facility] [address] [place] [address] Dr. Claire Mayes CUT-OFFS SEE BELOW Normal [facility] Comment on above: Result Comment: AMP (Amphetamine): 500ng/mL, BAR (Barbituates): 200 ng/mL, BZO (Benzodiazepines): 150 ng/mL, BUP (Buprenorphine): 10 ng/mL, KIT (Cocaine): 150 ng/mL, mAMP (Methamphetamine): 500 ng/mL, MTD (Methadone): 200 ng/mL, OPI (Opiates): 100 ng/mL, OXY (Oxycodone): 100 ng/mL, PCP (Phencyclidine): 25 ng/mL, PPX (Propoxyphene): 300 ng/mL, THC (Cannabinoids): 50 ng/mL, TCA (Trycyclic Antidepressants): 300 ng/mL Performed By: #### D RUGRPD #### [facility] [address] [place] [address] Dr. Claire Mayes DRUG CUT HEADER DRUG CLASS TEST SYST EM CUT-OFF CONCENTRATIONS ARE FOLLOWS: Normal [facility] Comment on above: Performed By: #### D RUGRPD #### [facility] [address] [place] [address] Dr. Claire Mayes mAMP Negative Normal NEGATIVE [facility] Comment on above: Performed By: #### D RUGRPD #### [facility] [address] [place] [address] Dr. Claire Mayes MTD Negative Normal NEGATIVE [facility] Comment on above: Performed By: #### D RUGRPD #### [facility] [address] [place] [address] Dr. Claire Mayes OPI Negative Normal NEGATIVE [facility] Comment on above: Performed By: #### D RUGRPD #### [facility] [address] [place] [address] Dr. Claire Mayes OXY Negative Normal NEGATIVE [facility] Comment on above: Performed By: #### D RUGRPD #### [facility] [address] [place] [address] Dr. Claire Mayes PCP Negative Normal NEGATIVE [facility] Comment on above: Performed By: #### D RUGRPD #### [facility] [address] [address] [address] Claire Mayes PPX Negative Normal NEGATIVE [facility] Comment on above: Performed By: #### D RUGRPD #### [facility] [address] [place] [address] Dr. Claire Mayes TCA Negative Normal NEGATIVE [facility] Comment on above: Performed By: #### D RUGRPD #### [facility] [address] [address] [address] Claire Mayes THC Negative Normal NEGATIVE [facility] Comment on above: Performed By: #### D RUGRPD #### [facility] [address] [place] [address] Dr. Claire Mayes TYPE AND SCREENon 02-18-2022 TYPE AND SCREEN Negative Normal [facility] Comment on above: Performed By: #### T NS #### [facility] [address] [place] [address] Dr. Claire Mayes US PREG BIOPHY W [...] JESSE THOMAS Date: 2022-02-17 14:27 Normal [facility] US PREG BIOPHY W NON STRESSo [...] BLU FELIPE Date: 2022-02-10 16:40 Normal [facility] GROUP B STREP CULTUREon 01-14 S. agalactiae Ag Ql (Unsp spec) Culture Observations: Beta Strep called to Belgica Lange at office 02/04/22 @[address] [place] [address] Isolate 1 Streptococcus agalactiae Heavy growth of ORGANISM 1 Streptococcus agalactiae ANTIBIOTIC M.I.C RX STATUS Benzylpenicillin <=0.06 S F Ampicillin <=0.25 S F Cefotaxime <=0.12 S F Ceftriaxone <=0.12 S F Levofloxacin 0.5 S F Erythromycin 2 R F Clindamycin <=0.25 S F Linezolid <=2 S F Vancomycin 0.5 S F Tetracycline >=16 R F Normal [facility] Comment on above: Performed By: #### G BSCX #### [facility] [address] [place] [address] Dr. 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 Verbal consent obtained for telemedicine visit. 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.. Normal [employer] CBC AND DIFFERENTIALon 08-06 % AUTOMATED IMMATURE GRAN 0.3 % Normal 0.0 - 0.9 [facility] Comment on above: Result Comment: Graciela ture Granulocyte Count (IG) includes promyelocytes, myelocytes and metamyelocytes but does not include bands. Percent differential counts (%) should be interpreted in the context of the absolute cell counts (cells/L). Performed By: #### C BCDF #### [address] [place] [address] Basophils (Bld) [#/Vol] 0.09 10*3/uL Normal 0.00 - 0.10 [facility] Comment on above: Performed By: #### C BCDF #### [address] [place] [address] Basophils/100 WBC (Bld) 0.9 % Normal 0.0 - 2.0 [facility] Comment on above: Performed By: #### C BCDF #### [address] [place] [address] Eosinophils (Bld) [#/Vol] 0.23 10*3/uL Normal 0.00 - 0.70 [facility] Comment on above: Performed By: #### C BCDF #### [address] [place] [address] Eosinophils/100 WBC (Bld) 2.4 % Normal 0.0 - 6.0 [facility] Comment on above: Performed By: #### C BCDF #### [address] [place] [address] Erythrocyte distribution width (RBC) [Ratio] 14.3 % Normal 11.5 - 14.5 [facility] Comment on above: Performed By: #### C BCDF #### [address] [place] [address] Hematocrit (Bld) [Volume fraction] 40.4 % Normal 36.0 - 46.0 [facility] Comment on above: Performed By: #### C BCDF #### [address] [place] [address] Hemoglobin (Bld) [Mass/Vol] 12.9 g/dL Normal 12.0 - 16.0 [facility] Comment on above: Performed By: #### C BCDF #### [address] [place] [address] Lymphocytes (Bld) [#/Vol] 2.44 10*3/uL Normal 1.20 - 4.80 [facility] Comment on above: Performed By: #### C BCDF #### [address] [place] [address] Lymphocytes/100 WBC (Bld) 25.7 % Normal 13.0 - 44.0 [facility] Comment on above: Performed By: #### C BCDF #### [address] [place] [address] MCHC (RBC) [Mass/Vol] 31.9 g/dL Low 32.0 - 36.0 [facility] Comment on above: Performed By: #### C BCDF #### [address] [place] [address] MCV (RBC) [Entitic vol] 88 fL Normal 80 - 100 [facility] Comment on above: Performed By: #### C BCDF #### [address] [place] [address] Monocytes (Bld) [#/Vol] 0.55 10*3/uL Normal 0.10 - 1.00 [facility] Comment on above: Performed By: #### C BCDF #### [address] [place] [address] Monocytes/100 WBC (Bld) 5.8 % Normal 2.0 - 10.0 [facility] Comment on above: Performed By: #### C BCDF #### [address] [place] [address] Neutrophils (Bld) [#/Vol] 6.15 10*3/uL Normal 1.20 - 7.70 [facility] Comment on above: Performed By: #### C BCDF #### [address] [place] [address] Neutrophils/100 WBC (Bld) 64.9 % Normal 40.0 - 80.0 [facility] Comment on above: Performed By: #### C BCDF #### [address] [place] [address] Platelets (Bld) [#/Vol] 410 10*3/uL Normal 150 - 450 [facility] Comment on above: Performed By: #### C BCDF #### [address] [place] [address] RBC (Bld) [#/Vol] 4.58 x10E12/L Normal 4.00 - 5.20 [facility] Comment on above: Performed By: #### C BCDF #### [address] [place] [address] WBC (Bld) [#/Vol] 9.5 10*3/uL Normal 4.4 - 11.3 [facility] Comment on above: Performed By: #### C BCDF #### [address] 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 Reports her asthma is stable. 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 She has Hematology follow-up today following our [...] Aug 06 2020 2:00PM EST (Author) Normal [employer] Complete Blood Count + Diffe marc 06-27-2020 Basophils/100 WBC (Bld) 0.5 % 0.0 - 2.0 SG-SBNDX-Diwkh[address] Work Phone: Eosinophils (Bld) [#/Vol] 0.24 {x10E9/L} See Below QP-VUQYQ-Zmgvj[address] Work Phone: Comment on above: Reference Range: 0.0 0 - 0.70 Eosinophils/100 WBC (Bld) 1.1 % 0.0 - 6.0 DU-UXVIQ-Hmhig[address] Work Phone: Erythrocyte distribution width (RBC) [Ratio] 15.0 % above high threshold See Below UK-ZQPMK-Ycecf[address] Work Phone: Comment on above: Reference Range: 11. 5 - 14.5 Hematocrit (Bld) [Volume fraction] 30.0 % below low threshold See Below QJ-UDUKA-Kpotu[address] Work Phone: Comment on above: Reference Range: 36. 0 - 46.0 Hemoglobin (Bld) [Mass/Vol] 9.8 g/dL below low threshold See Below LO-JRUCK-Hgxge[address] Work Phone: Comment on above: Reference Range: 12. 0 - 16.0 Lymphocytes (Bld) [#/Vol] 2.25 {x10E9/L} See Below EQ-AWYJS-Wtaye wn 2nd Fl Work Phone: Comment on above: Reference Range: 1.2 0 - 4.80 Lymphocytes/100 WBC (Bld) 10.4 % See Below IH-GYFOI-Klxrl wn 2nd Fl Work Phone: Comment on above: Reference Range: 13. 0 - 44.0 MCHC (RBC) [Mass/Vol] 32.7 g/dL See Below JZ-LTVTJ-Awftg wn 2nd Fl Work Phone: Comment on above: Reference Range: 32. 0 - 36.0 MCV (RBC) [Entitic vol] 91 fL 80 - 100 XI-YOFKI-Jknmf wn 2nd Fl Work Phone: Monocytes (Bld) [#/Vol] 0.84 {x10E9/L} See Below GM-QHSZV-Gswau wn 2nd Fl Work Phone: Comment on above: Reference Range: 0.1 0 - 1.00 Monocytes/100 WBC (Bld) 3.9 % 2.0 - 10.0 GE-JDQLL-Yicat wn 2nd Fl Work Phone: Neutrophils/100 WBC (Bld) 82.7 % See Below UP-YHYNO-Wfjsw wn 2nd Fl Work Phone: Comment on above: Reference Range: 40. 0 - 80.0 Platelets (Bld) [#/Vol] 225 {x10E9/L} 150 - 450 ES-RTNYE-Ttlpj wn 2nd Fl Work Phone: RBC (Bld) [#/Vol] 3.31 {x10E12/L} below low threshold See Below QX-MSCCI-Pudmu 2nd Fl Work Phone: Comment on above: Reference Range: 4.0 0 - 5.20 WBC (Bld) [#/Vol] 0.0 {/100_WBC} 0.0-0.0 MG- OBGYN[address] Fl Work Phone: WBC (Bld) [#/Vol] 21.6 {x10E9/L} above high threshold 4.4 - 11.3 GV-AJMSP-Eirjg wn 2nd Fl Work Phone: Complete Blood Count + Differential 0.11 {x10E9/L} above high threshold See Below HV-FQWPB-Ravoz[address] Work Phone: Comment on above: Reference Range: 0.0 0 - 0.10 Complete Blood Count + Differential 1.4 % above high threshold 0.0 - 0.9 HQ-TVWHO-Xwoyr[address] Work Phone: Comment on above: Immature Granulocyte Count (IG) includes promyelocytes, myelocytes and metamyelocytes but does not include bands. Percent differential counts (%) should be interpreted in the context of the absolute cell counts (cells/L). Complete Blood Count + Differential 17.85 {x10E9/L} above high threshold See Below FY-FVCEE-Ncczt wn 2nd Fl Work Phone: Comment on above: Reference Range: 1.2 0 - 7.70 Hematologyon 06-26-2020 Hematocrit (Bld) [Volume fraction] 30.5 % below low threshold See Below RF-GCPSX-Skgrc wn 2nd Fl Work Phone: Comment on above: Reference Range: 36. 0 - 46.0 Hemoglobin (Bld) [Mass/Vol] 10.7 g/dL below low threshold See Below ZQ-NTZYX-Norju wn 2nd Fl Work Phone: Comment on above: Reference Range: 12. 0 - 16.0 MCV (RBC) [Entitic vol] 84 fL 80 - 100 OP-LLLIY-Uipgu wn 2nd Fl Work Phone: Platelets (Bld) [#/Vol] 258 {x10E9/L} 150 - 450 GC-YDJIS-Sgrdk wn 2nd Fl Work Phone: RBC (Bld) [#/Vol] 3.62 {x10E12/L} below low threshold See Below SD-SYMUF-Tctqf wn 2nd Fl Work Phone: Comment on above: Reference Range: 4.0 0 - 5.20 WBC (Bld) [#/Vol] 0.0 {/100_WBC} 0.0-0.0 MG- OBGYN-Midto wn 2nd Fl Work Phone: WBC (Bld) [#/Vol] 35.7 {x10E9/L} above high threshold 4.4 - 11.3 QD-JUZGL-Fszpi wn 2nd Fl Work Phone: Otheron 06-26-2020 Erythrocyte distribution width (RBC) [Ratio] 14.6 % above high threshold See Below TG-KMCZP-Bkjig wn 2nd Fl Work Phone: Comment on above: Reference Range: 11. 5 - 14.5 MCHC (RBC) [Mass/Vol] 35.1 g/dL See Below JP-VYMDZ-Uofze wn 2nd Fl Work Phone: Comment on [...] FIBRINDEPOSITION. Electronically Signed Out By ALEX ODELL MD/SXRBy the signature on this report, the individual [...] 3.5 cm, located 1.0 cm from themargin. Inner Diameter Grinder Tool sections are submitted in 5 cassettes.AXQ/LMPSummary of Cassettes:Specimen Label SiteA 1 umbilical cord sections 2 membrane rolls 3 placental parenchyma, umbilical cord insertion site 4 placental parenchyma 5 placental parenchyma, lesionaxq/06/26/2020 HF-TCIQA-Gcwzm[address] Work Phone: Coronavirus 2019 RNA by PCR, Symptomaticon 06-25-2020 Coronavirus 2019 RNA by PCR, Symptomatic NOT DETECTED See Below RB-VWWPU-Uthyh[address] Work Phone: Comment on above: SOURCE: [...] this test method. Fact sheet for providers: www.fda.gov/media/420877/downloadFact sheet for patients: www.fda.gov/media/541031/downloadThis test has received FDA Emergency Use Authorization (EUA) and has been verified by [facility] ([facility]). This test is only authorized for the duration of time that circumstances exist to justify the authorization of the emergency use of in vitro diagnostic tests for the detection of SARS-CoV-2 virus and/or diagnosis of COVID-19 infection under section 564(b)(1) of the Act, 21 U.S.C. 360bbb-3(b)(1), unless the authorization is terminated or revoked sooner. [facility] is certified under CLIA-88 as qualified to perform high complexity testing. Testing is performed in the [facility] laboratories located at [address] [place] [address]. Hematologyon 06-25-2020 ABO group Nom (Bld) A [address] Work Phone: Blood group antibody screen Ql Negative [address] Work Phone: Hematocrit (Bld) [Volume fraction] 34.7 % below low threshold See Below [address] Work Phone: Comment on above: Reference Range: 36. 0 - 46.0 Hemoglobin (Bld) [Mass/Vol] 11.6 g/dL below low threshold See Below [address] Work Phone: Comment on above: Reference Range: 12. 0 - 16.0 MCV (RBC) [Entitic vol] 90 fL 80 - [address] Work Phone: Platelets (Bld) [#/Vol] 268 {x10E9/L} 150 - [address] Work Phone: RBC (Bld) [#/Vol] 3.85 {x10E12/L} below low threshold See Below XG-TYXNE-Gmvfs[address] Work Phone: Comment on above: Reference Range: 4.0 0 - 5.20 Rh immune globulin screen (Bld) [Interp] Positive GF-WNHJU-Opitj[address] Work Phone: WBC (Bld) [#/Vol] 0.0 {/100_WBC} 0.0-0.0 MG- OBGYN-[address] Work Phone: WBC (Bld) [#/Vol] 15.5 {x10E9/L} above high threshold 4.4 - 11.3 BC-NVOFE-Qjtla[address] Work Phone: Otheron 06-25-2020 Erythrocyte distribution width (RBC) [Ratio] 14.4 % See Below SK-VZSDJ-Wptge[address] Work Phone: Comment on above: Reference Range: 11. 5 - 14.5 MCHC (RBC) [Mass/Vol] 33.4 g/dL See Below XZ-ILVTI-Zqhwd[address] Work Phone: Comment on above: Reference Range: 32. 0 - 36.0 SYPHILIS SCREENING WITH REFL EXon 06-25-2020 T. pallidum IgG+IgM IA Ql (S) NONREACTIVE See Below RX-MBTEM-Ukvtc[address] Work Phone: Comment on above: SOURCE: Reference Ra nge: NONREACTIVENo significant level of Treponema pallidum antibody detected. Repeat testing in 2 to 4 weeks may be considered if early infection or incubating syphilis infection is suspected. Imm/Pathon 06-07-2020 Bacteria identified Aer cx Nom (Genital specimen) PATIENT: KIARA ASHLEY LOCATION: [facility] [place] BILL#: [id number] : 89 AGE: SEX: F ORDERED BY: PARAS GUEVARA: VAGINAL COLLECTED: 06/07/20 09:36ANTIBIOTICS AT [facility].: RECEIVED : 06/08/20 07:27SITE: VAGINAL R E S U L T S GROUP B STREP SCREEN PRELIM 06/09/20 08:35 CULTURE IN PROGRESS. XR-FPRSZ-IOE [address] [place] Work Phone: Bacteria identified Aer cx Nom (Genital specimen) PATIENT: KIARA ASHLEY LOCATION: [facility] [place] BILL#: [id number] : 89 AGE: SEX: F ORDERED BY: PARAS GUEVARA: VAGINAL COLLECTED: 06/07/20 09:36ANTIBIOTICS AT [place].: RECEIVED : 06/08/20 07:27SITE: VAGINAL R E S U L T S GROUP B STREP SCREEN FINAL 06/10/20 11:54 NEGATIVE FOR GROUP B BETA STREP. ZV-TQUUX-Ayqtf wn 2nd Fl Work Phone: Otheron 06-07-2020 [...] growth-No malformations were identified on a limited survey-[facility] 06/22 The patient is aware of [...] signed by: RILEY TREVIÑO 06/07/20 09:33 Normal UE-SAFJB-HTC [address] [place] Work Phone: Comment on above: ORDER REVISED TO A O B FOLLOW UP OR REPEAT SCAN BY RADIOLOGIST; Original Order Number: [id number] CBC AND DIFFERENTIALon 06-10 -2020 % AUTOMATED IMMATURE GRAN 1.9 % High 0.0 - 0.9 [facility] [place] Comment on above: Result Comment: Graciela ture Granulocyte Count (IG) includes promyelocytes, myelocytes and metamyelocytes but does not include bands. Percent differential counts (%) should be interpreted in the context of the absolute cell counts (cells/L). Performed By: #### C BCDF #### [address] [place] [address] Basophils (Bld) [#/Vol] 0.08 10*3/uL Normal 0.00 - 0.10 [facility] [place] Comment on above: Performed By: #### C BCDF #### [address] [place] [address] Basophils/100 WBC (Bld) 0.5 % Normal 0.0 - 2.0 [facility] [place] Comment on above: Performed By: #### C BCDF #### [address] [place] [address] Eosinophils (Bld) [#/Vol] 0.22 10*3/uL Normal 0.00 - 0.70 [facility] [place] Comment on above: Performed By: #### C BCDF #### [address] [place] [address] Eosinophils/100 WBC (Bld) 1.5 % Normal 0.0 - 6.0 [facility] [place] Comment on above: Performed By: #### C BCDF #### [address] [place] [address] Erythrocyte distribution width (RBC) [Ratio] 14.0 % Normal 11.5 - 14.5 [facility] [place] Comment on above: Performed By: #### C BCDF #### [address] [place] [address] Hematocrit (Bld) [Volume fraction] 35.6 % Low 36.0 - 46.0 [facility] [place] Comment on above: Performed By: #### C BCDF #### [address] [place] [address] Hemoglobin (Bld) [Mass/Vol] 11.8 g/dL Low 12.0 - 16.0 [facility] [place] Comment on above: Performed By: #### C BCDF #### [address] [place] [address] Lymphocytes (Bld) [#/Vol] 2.38 10*3/uL Normal 1.20 - 4.80 [facility] [place] Comment on above: Performed By: #### C BCDF #### [address] [place] [address] Lymphocytes/100 WBC (Bld) 16.0 % Normal 13.0 - 44.0 [facility] [place] Comment on above: Performed By: #### C BCDF #### [address] [place] [address] MCHC (RBC) [Mass/Vol] 33.1 g/dL Normal 32.0 - 36.0 [facility] [place] Comment on above: Performed By: #### C BCDF #### [address] [place] [address] MCV (RBC) [Entitic vol] 92 fL Normal 80 - 100 [facility] [place] Comment on above: Performed By: #### C BCDF #### [address] [place] [address] Monocytes (Bld) [#/Vol] 0.74 10*3/uL Normal 0.10 - 1.00 [facility] [place] Comment on above: Performed By: #### C BCDF #### [address] [place] [address] Monocytes/100 WBC (Bld) 5.0 % Normal 2.0 - 10.0 [facility] [place] Comment on above: Performed By: #### C BCDF #### [address] [place] [address] Neutrophils (Bld) [#/Vol] 11.17 10*3/uL High 1.20 - 7.70 [facility] [place] Comment on above: Performed By: #### C BCDF #### [address] [place] [address] Neutrophils/100 WBC (Bld) 75.1 % Normal 40.0 - 80.0 [facility] [place] Comment on above: Performed By: #### C BCDF #### [address] [place] [address] Platelets (Bld) [#/Vol] 285 10*3/uL Normal 150 - 450 [facility] [place] Comment on above: Performed By: #### C BCDF #### [address] [place] [address] RBC (Bld) [#/Vol] 3.89 x10E12/L Low 4.00 - 5.20 [facility] [place] Comment on above: Performed By: #### C BCDF #### [address] [place] [address] WBC (Bld) [#/Vol] 14.9 10*3/uL High 4.4 - 11.3 [facility] Comment on above: Performed By: #### C BCDF #### [address] [place] [address] COMPREHENSIVE PANELon 2019 ALP [Catalytic activity/Vol] 79 U/L Normal 33 - 110 [facility] [place] Comment on above: Performed By: #### C MP #### [address] [place] [address] [place] [id number] [facility] [place] [address] ALT [Catalytic activity/Vol] 7 U/L Normal 7 - 45 [facility] [place] Comment on above: Result Comment: Melida ents treated with Sulfasalazine may generate falsely decreased results for ALT. Performed By: #### C MP #### [address] [place] [address] [facility] [address] [place] [address] AST [Catalytic activity/Vol] 13 U/L Normal 9 - 39 [facility] [place] Comment on above: Performed By: #### C MP #### [address] [place] [address] [place] [address] Bilirubin [Mass/Vol] 0.3 mg/dL Normal 0.0 - 1.2 [facility] [place] Comment on above: Performed By: #### C MP #### [address] [place] [address] [place] [address] Protein [Mass/Vol] 5.9 g/dL Low 6.4 - 8.2 [facility] [place] Comment on above: Performed By: #### C MP #### [address] [place] [address] [place] [address] Anion gap [Moles/Vol] 12 mmol/L Normal 10 - 20 [facility] [place] Comment on above: Performed By: #### C MP #### [address] [place] [address] [place] [address] Chloride [Moles/Vol] 106 mmol/L Normal 98 - 107 [facility] [place] Comment on above: Performed By: #### C MP #### [address] [place] [address] [place] [address] Potassium [Moles/Vol] 3.7 mmol/L Normal 3.5 - 5.3 [facility] [place] Comment on above: Performed By: #### C MP #### [address] [place] [address] [place] [address] Sodium [Moles/Vol] 137 mmol/L Normal 136 - 145 [facility] [place] Comment on above: Performed By: #### C MP #### [address] [place] [address] [place] [address] Calcium [Mass/Vol] 9.2 mg/dL Normal 8.6 - 10.3 [facility] [place] Comment on above: Performed By: #### C MP #### [address] [place] [address] [place] [address] Glucose [Mass/Vol] 95 mg/dL Normal 74 - 99 [facility] [place] Comment on above: Performed By: #### C MP #### [address] [place] [address] [place] [address] Urea nitrogen [Mass/Vol] 7 mg/dL Normal 6 - 23 [facility] [place] Comment on above: Performed By: #### C MP #### [address] [place] [address] [place] [address] Albumin [Mass/Vol] 3.4 g/dL Normal 3.4 - 5.0 [facility] [place] Comment on above: Performed By: #### C MP #### [address] [place] [address] [place] [address] Creatinine [Mass/Vol] 0.70 mg/dL Normal 0.50 - 1.05 [facility] [place] Comment on above: Performed By: #### C MP #### [address] [place] [address] [place] [address] GFR- AM. >60 Normal >60 [facility] [place] Comment on above: Result Comment: CALC ULATIONS OF ESTIMATED GFR ARE PERFORMED USING THE MDRD STUDY EQUATION FOR THE IDMS-TRACEABLE CREATININE METHODS. CLIN CHEM 2007;53:766-72 Performed By: #### C MP #### [address] [place] [address] [place] [address] GFR-NON AM. >60 Normal >60 [facility] [place] Comment on above: Performed By: #### C MP #### [address] [place] [address] [place] [address] HCO3 (Bld) [Moles/Vol] 23 mmol/L Normal 21 - 32 [facility] [place] Comment on above: Performed By: #### C MP #### [address] [place] [address] [place] [address] FERRITINon 04-24-2020 Ferritin [Mass/Vol] 8 ug/L Normal 8 - 150 [facility] [place] Comment on above: Performed By: #### F ERRI #### [address] [place] [address] IRON + TIBCon 04-24-2020 % SATURATION 14 % Low 25 - 45 [facility] [place] Comment on above: Performed By: #### I RONT #### [address] [place] [address] Iron [Mass/Vol] 65 ug/dL Normal 35 - 150 [facility] [place] Comment on above: Performed By: #### I RONT #### [address] [place] [address] TIBC 449 ug/dL High 240 - 445 [facility] [place] Comment on above: Performed By: #### I RONT #### [address] [place] [address] Complete Blood Count + Diffe rentialon 12-25-2019 Basophils/100 WBC (Bld) 1.0 % 0.0 - 2.0 LB-NCGBI-OBL [address] [place] Work Phone: Eosinophils (Bld) [#/Vol] 0.37 {x10E9/L} See Below HM-CHAWT-YWO [address] [place] Work Phone: Comment on above: Reference Range: 0.0 0 - 0.70 Eosinophils/100 WBC (Bld) 3.0 % 0.0 - 6.0 NU-HVIMM-RCH [address] [place] Work Phone: Erythrocyte distribution width (RBC) [Ratio] 13.4 % See Below SR-GBUKD-OJS [address] [place] Work Phone: Comment on above: Reference Range: 11. 5 - 14.5 Hematocrit (Bld) [Volume fraction] 41.8 % See Below DP-QJRWX-SFD [address] [place] Work Phone: Comment on above: Reference Range: 36. 0 - 46.0 Hemoglobin (Bld) [Mass/Vol] 13.6 g/dL See Below RX-LMHGG-RPI [address] [place] Work Phone: Comment on above: Reference Range: 12. 0 - 16.0 Lymphocytes (Bld) [#/Vol] 2.52 {x10E9/L} See Below HH-IEEAB-JUK [address] [place] Work Phone: Comment on above: Reference Range: 1.2 0 - 4.80 Lymphocytes/100 WBC (Bld) 20.2 % See Below CE-GQZEP-LUQ [address] [place] Work Phone: Comment on above: Reference Range: 13. 0 - 44.0 MCHC (RBC) [Mass/Vol] 32.5 g/dL See Below PI-DXETX-JDO [address] [place] Work Phone: Comment on above: Reference Range: 32. 0 - 36.0 MCV (RBC) [Entitic vol] 95 fL 80 - 100 FF-QFWVD-OPP [address] [place] Work Phone: Monocytes (Bld) [#/Vol] 0.58 {x10E9/L} See Below NL-YQCKH-YRS [address] [place] Work Phone: Comment on above: Reference Range: 0.1 0 - 1.00 Monocytes/100 WBC (Bld) 4.6 % 2.0 - 10.0 CZ-HZCRR-GGI [address] [place] Work Phone: Neutrophils/100 WBC (Bld) 70.6 % See Below NF-MWYEH-CHY [address] [place] Work Phone: Comment on above: Reference Range: 40. 0 - 80.0 Platelets (Bld) [#/Vol] 372 {x10E9/L} 150 - 450 UT-MWZAO-RKV [address] [place] Work Phone: RBC (Bld) [#/Vol] 4.40 {x10E12/L} See Below MG -OBGYN-MAC [address] [place] Work Phone: Comment on above: Reference Range: 4.0 0 - 5.20 WBC (Bld) [#/Vol] 0.0 {/100_WBC} 0.0-0.0 MG- OBGYN-MAC [address] [place] Work Phone: WBC (Bld) [#/Vol] 12.7 {x10E9/L} above high threshold 4.4 - 11.3 DA-RNSKH-FYP [address] [place] Work Phone: Comment on above: SOURCE: Complete Blood Count + Differential 8.81 {x10E9/L} above high threshold See Below ED-PPYYI-LZJ [address] [place] Work Phone: Comment on above: Reference Range: 1.2 0 - 7.70 Complete Blood Count + Differential 0.6 % 0.0 - 0.9 GK-JFLNL-BIN [address] [place] Work Phone: Comment on above: Percent differential counts (%) should be interpreted in the context of the absolute cell counts (cells/L). Complete Blood Count + Differential 0.13 {x10E9/L} above high threshold See Below XR-ISCSX-GFL [address] [place] Work Phone: Comment on above: Reference Range: 0.0 0 - 0.10 Cult, Urineon 12-25-2019 Bacteria identified Cx Nom (U) PATIENT: KIARA ASHLEY LOCATION: [id number] BILL#: [id number] : 89 AGE: SEX: F ORDERED BY: PARAS GUEVARA: URINE COLLECTED: 12/25/19 09:41ANTIBIOTICS AT [place].: RECEIVED : 12/25/19 17:06SITE: Clean Catch/Voided R E S U L T S URINE CULTURE,BACTERIAL FINAL 12/26/19 10:21 NO SIGNIFICANT GROWTH. VJ-NXCOJ-JLS [address] [place] Work Phone: Hematologyon 12-25-2019 ABO group Nom (Bld) A CH-MXDMX-ARX [address] [place] Work Phone: Blood group antibody screen Ql Negative KO-SHKES-QEL [address] [place] Work Phone: Rh immune globulin screen (Bld) [Interp] Positive YO-FREZO-TUS [address] [place] Work Phone: Hepatitis B Surface Antigeno n 12-25-2019 Hepatitis B Surface Antigen NONREACTIVE See Below YB-GPDFG-KNL [address] [place] Work Phone: Comment on above: [...] Hepatitis C Antibody Test NON-REACTIVE See Below YJ-FVJGW-GNS [address] [place] Work Phone: Comment on above: SOURCE: Reference Ra nge: NONREACTIVE Patients receiving more than 5 mg/day of biotin may have interference in test results. A sample should be taken no sooner than eight hours after previous dose. Contact the testing laboratory for additional information. Metabolic Panelon 12-25-2019 ALP [Catalytic activity/Vol] 67 U/L 33 - 110 NW-MLCLI-JYZ [address] [place] Work Phone: Anion gap [Moles/Vol] 15 mmol/L 10 - 20 DH-ILDRP-MSX [address] [place] Work Phone: Bilirubin [Mass/Vol] 0.3 mg/dL 0.0 - 1.2 OQ-BNEHZ-BSG [address] [place] Work Phone: Calcium [Mass/Vol] 9.6 mg/dL 8.6 - 10.6 VD-YKBDN-PYX [address] [place] Work Phone: Chloride [Moles/Vol] 104 mmol/L 98 - 107 VR-OCSYV-UXK [address] [place] Work Phone: CO2 [Moles/Vol] 21 mmol/L 21 - 32 MG-OBGYN- MAC [address] [place] Work Phone: Creatinine [Mass/Vol] 0.69 mg/dL See Below RX-UKINR-MTB [address] [place] Work Phone: Comment on above: Reference Range: 0.5 0 - 1.05 Glucose [Mass/Vol] 83 mg/dL 74 - 99 CT-SJCCL-GBN [address] [place] Work Phone: Comment on above: SOURCE: Potassium [Moles/Vol] 4.1 mmol/L 3.5 - 5.3 YI-USLOQ-NFW [address] [place] Work Phone: Protein [Mass/Vol] 6.2 g/dL below low threshold 6.4 - 8.2 AF-NWFKM-QGY [address] [place] Work Phone: Sodium [Moles/Vol] 136 mmol/L 136 - 145 TE-DMVVC-OXR [address] [place] Work Phone: Urea nitrogen [Mass/Vol] 9 mg/dL 6 - 23 MO-HDGER-CTT [address] [place] Work Phone: Otheron 12-25-2019 Albumin BCP dye [Mass/Vol] 3.9 g/dL 3.4 - 5.0 TO-UGBHJ-GVB 1200 [place] Work Phone: ALT With P-5'-P [Catalytic activity/Vol] 8 U/L 7 - 45 EU-RZOIU-ZAZ [address] [place] Work Phone: Comment on above: Patients treated wit h Sulfasalazine may generate falsely decreased results for ALT. AST With P-5'-P [Catalytic activity/Vol] 11 U/L 9 - 39 BE-RKYWB-VRB [address] [place] Work Phone: NONE SZ-GQGJW-ITR [address] [place] Work Phone: >60 >60 SR-EIWAL-LEB [address] [place] Work Phone: Comment on above: CALCULATIONS OF MARÍA MATED GFR ARE PERFORMED USING THE MDRD STUDY EQUATION FOR THE IDMS-TRACEABLE CREATININE METHODS. CLIN CHEM 2007;53:766-72 SYPHILIS SCREENING WITH REFL EXon 12-25-2019 T. pallidum IgG+IgM IA Ql (S) NONREACTIVE See Below RB-KQHVX-SGR [address] [place] Work Phone: Comment on above: SOURCE: Reference Ra nge: NONREACTIVENo significant level of Treponema pallidum antibody detected. Repeat testing in 2 to 4 weeks may be considered if early infection or incubating syphilis infection is suspected. CBC AND DIFFERENTIALon 11-21 % AUTOMATED IMMATURE GRAN 0.9 % Normal 0.0 - 0.9 [facility] [place] Comment on above: Result Comment: Perc ent differential counts (%) should be interpreted in the context of the absolute cell counts (cells/L). Performed By: #### C BCDF #### [address] [place] [address] Basophils (Bld) [#/Vol] 0.16 10*3/uL High 0.00 - 0.10 [facility] [place] Comment on above: Performed By: #### C BCDF #### [address] [place] [address] Basophils/100 WBC (Bld) 1.2 % Normal 0.0 - 2.0 [facility] [place] Comment on above: Performed By: #### C BCDF #### [address] [place] [address] Eosinophils (Bld) [#/Vol] 0.80 10*3/uL High 0.00 - 0.70 [facility] [place] Comment on above: Performed By: #### C BCDF #### [address] [place] [address] Eosinophils/100 WBC (Bld) 5.8 % Normal 0.0 - 6.0 [facility] [place] Comment on above: Performed By: #### C BCDF #### [address] [place] [address] Erythrocyte distribution width (RBC) [Ratio] 13.6 % Normal 11.5 - 14.5 [facility] [place] Comment on above: Performed By: #### C BCDF #### [address] [place] [address] Hematocrit (Bld) [Volume fraction] 39.4 % Normal 36.0 - 46.0 [facility] [place] Comment on above: Performed By: #### C BCDF #### [address] [place] [address] Hemoglobin (Bld) [Mass/Vol] 13.0 g/dL Normal 12.0 - 16.0 [facility] [place] Comment on above: Performed By: #### C BCDF #### [address] [place] [address] Lymphocytes (Bld) [#/Vol] 2.24 10*3/uL Normal 1.20 - 4.80 [facility] [place] Comment on above: Performed By: #### C BCDF #### [address] [place] [address] Lymphocytes/100 WBC (Bld) 16.3 % Normal 13.0 - 44.0 [facility] [place] Comment on above: Performed By: #### C BCDF #### [address] [place] [address] MCHC (RBC) [Mass/Vol] 33.0 g/dL Normal 32.0 - 36.0 [facility] [place] Comment on above: Performed By: #### C BCDF #### [address] [place] [address] MCV (RBC) [Entitic vol] 94 fL Normal 80 - 100 [facility] [place] Comment on above: Performed By: #### C BCDF #### [address] [place] [address] Monocytes (Bld) [#/Vol] 0.83 10*3/uL Normal 0.10 - 1.00 [facility] [place] Comment on above: Performed By: #### C BCDF #### [address] [place] [address] Monocytes/100 WBC (Bld) 6.0 % Normal 2.0 - 10.0 [facility] [place] Comment on above: Performed By: #### C BCDF #### [address] [place] [address] Neutrophils (Bld) [#/Vol] 9.60 10*3/uL High 1.20 - 7.70 [facility] [place] Comment on above: Performed By: #### C BCDF #### [address] [place] [address] Neutrophils/100 WBC (Bld) 69.8 % Normal 40.0 - 80.0 [facility] [place] Comment on above: Performed By: #### C BCDF #### [address] [place] [address] Platelets (Bld) [#/Vol] 380 10*3/uL Normal 150 - 450 [facility] [place] Comment on above: Performed By: #### C BCDF #### [address] [place] [address] RBC (Bld) [#/Vol] 4.21 x10E12/L Normal 4.00 - 5.20 [facility] [place] Comment on above: Performed By: #### C BCDF #### [address] [place] [address] WBC (Bld) [#/Vol] 13.8 10*3/uL High 4.4 - 11.3 [facility] Comment on above: Performed By: #### C BCDF #### [address] [place] [address] Complete Blood Count + Diffe marc 11-14-2019 Basophils (Bld) [#/Vol] 0.05 {x10E9/L} See Below -Reproductiv e Endocrinology- [place] Work Phone: Comment on above: Reference Range: 0.0 0 - 0.10 Basophils/100 WBC (Bld) 0.4 % 0.0 - 2.0 MP-Reproductiv e Endocrinology- [place] Work Phone: Eosinophils (Bld) [#/Vol] 0.89 {x10E9/L} above high threshold See Below MP-Reproductiv e Endocrinology- [place] Work Phone: Comment on above: Reference Range: 0.0 0 - 0.70 Eosinophils/100 WBC (Bld) 7.3 % 0.0 - 6.0 MP-Reproductiv e Endocrinology- [place] Work Phone: Erythrocyte distribution width (RBC) [Ratio] 13.9 % See Below -Reproductiv e Endocrinology- [place] 206 Work Phone: Comment on above: Reference Range: 11. 5 - 14.5 Hematocrit (Bld) [Volume fraction] 39.4 % See Below -Reproductiv e Endocrinology- [place] 206 Work Phone: Comment on above: Reference Range: 36. 0 - 46.0 Hemoglobin (Bld) [Mass/Vol] 12.8 g/dL See Below -Reproductiv e Endocrinology- [place] Work Phone: Comment on above: Reference Range: 12. 0 - 16.0 Lymphocytes (Bld) [#/Vol] 2.13 {x10E9/L} See Below -Reproductiv e Endocrinology- [place] Work Phone: Comment on above: Reference Range: 1.2 0 - 4.80 Lymphocytes/100 WBC (Bld) 17.5 % See Below MP-Reproductiv e Endocrinology- [place] Work Phone: Comment on above: Reference Range: 13. 0 - 44.0 MCHC (RBC) [Mass/Vol] 32.5 g/dL See Below MP-Reproductiv e Endocrinology- [place] Work Phone: Comment on above: Reference Range: 32. 0 - 36.0 MCV (RBC) [Entitic vol] 95 fL 80 - 100 MP-Reproductiv e Endocrinology- [place] Work Phone: Monocytes (Bld) [#/Vol] 0.60 {x10E9/L} See Below MP-Reproductiv e Endocrinology- [place] Work Phone: Comment on above: Reference Range: 0.1 0 - 1.00 Monocytes/100 WBC (Bld) 4.9 % 2.0 - 10.0 MP-Reproductiv e Endocrinology- [place] Work Phone: Neutrophils/100 WBC (Bld) 69.4 % See Below MP-Reproductiv e Endocrinology- [place] Work Phone: Comment on above: Reference Range: 40. 0 - 80.0 Platelets (Bld) [#/Vol] 423 {x10E9/L} 150 - 450 MP-Reproductiv e Endocrinology- [place] Work Phone: RBC (Bld) [#/Vol] 4.15 {x10E12/L} See Below MP -Reproductiv e [facility]ocr[facility]ology[facility] [place] Work Phone: Comment on above: Reference Range: 4.0 0 - 5.20 WBC (Bld) [#/Vol] 12.2 {x10E9/L} above high threshold 4.4 - 11.3 MP-Reproductiv e Endocrinology- [place] Work Phone: WBC (Bld) [#/Vol] 0.0 {/100_WBC} 0.0-0.0 MP- Reproductiv e Endocrinology- [place] Work Phone: Complete Blood Count + Differential 0.5 % 0.0 - 0.9 MP-Reproductiv e Endocrinology- [place] Work Phone: Comment on above: Percent differential counts (%) should be interpreted in the context of the absolute cell counts (cells/L). Complete Blood Count + Differential 8.42 {x10E9/L} above high threshold See Below MP-Reproductiv e Endocrinology- [place] Work Phone: Comment on above: Reference Range: 1.2 0 - 7.70 Metabolic Panelon 11-14-2019 ALP [Catalytic activity/Vol] 82 U/L 33 - 110 MP-Reproductiv e Endocrinology- [place] Work Phone: Anion gap [Moles/Vol] 19 mmol/L 10 - 20 [facility]- [place] Work Phone: Bilirubin [Mass/Vol] 0.4 mg/dL 0.0 - 1.2 [facility]- [place] Work Phone: Calcium [Mass/Vol] 9.5 mg/dL 8.6 - 10.6 [facility]- [place] Work Phone: Chloride [Moles/Vol] 100 mmol/L 98 - 107 [facility]- [place] Work Phone: CO2 [Moles/Vol] 20 mmol/L below low threshold 21 - 32 [facility]- [place] Work Phone: Creatinine [Mass/Vol] 0.80 mg/dL See Below [facility]- [place] Work Phone: Comment on above: Reference Range: 0.5 0 - 1.05 Glucose [Mass/Vol] 86 mg/dL 74 - 99 [facility]- [place] Work Phone: Potassium [Moles/Vol] 4.3 mmol/L 3.5 - 5.3 [facility]- [place] Work Phone: Protein [Mass/Vol] 5.8 g/dL below low threshold 6.4 - 8.2 [facility]- [place] Work Phone: Sodium [Moles/Vol] 135 mmol/L below low threshold 136 - 145 [facility] Work Phone: Urea nitrogen [Mass/Vol] 10 mg/dL 6 - 23 MP-Reproductiv e [facility]- [place] Work Phone: Otheron 11-14-2019 Albumin BCP dye [Mass/Vol] 3.5 g/dL 3.4 - 5.0 MP-Reproductiv e Endocrin[facility]- [place] Work Phone: ALT With P-5'-P [Catalytic activity/Vol] 17 U/L 7 - 45 MP-Reproductiv e [facility] Work Phone: Comment on above: Patients treated wit h Sulfasalazine may generate falsely decreased results for ALT. AST With P-5'-P [Catalytic activity/Vol] 22 U/L 9 - 39 [facility] e [facility] [place] Work Phone: >60 >60 MP-Reproductiv e [facility] Work Phone: Comment on above: CALCULATIONS OF MARÍA MATED GFR ARE PERFORMED USING THE MDRD STUDY EQUATION FOR THE IDMS-TRACEABLE CREATININE METHODS. CLIN CHEM 2007;53:766-72 CBCon 11-09-2019 Erythrocyte distribution width (RBC) [Ratio] 13.7 % See Below YM-EORRC-Lpdxn n 310 IVF Work Phone: Comment on above: Performed By: #### L H #### [facility] [address] [place] [address] Reference Range: 11. 5 - 14.5 Hematocrit (Bld) [Volume fraction] 41.9 % See Below ZC-DTVYY-Mjxqg n 310 IV[facility] Work Phone: Comment on above: Performed By: #### L H #### [facility] [address] [place] [address] Reference Range: 36. 0 - 46.0 Hemoglobin (Bld) [Mass/Vol] 14.0 g/dL See Below WI-PFXDH-Oaaxg n 310 IV[facility] Work Phone: Comment on above: Performed By: #### L H #### [facility] [address] [place] [address] Reference Range: 12. 0 - 16.0 MCHC (RBC) [Mass/Vol] 33.4 g/dL See Below NZ-CCQHY-Wiqpg n 310 IVF Work Phone: Comment on above: Performed By: #### L H #### [facility] [address] [place] [address] Reference Range: 32. 0 - 36.0 MCV (RBC) [Entitic vol] 94 fL 80 - 100 NB-RVLRV-Knzqq n 310 IV[facility] Work Phone: Comment on above: Performed By: #### L H #### [facility] [address] [place] [id number] Platelets (Bld) [#/Vol] 411 10*3/uL Normal 150 - 450 [facility] Comment on above: Performed By: #### L H #### [facility] [address] [place] [id number] RBC (Bld) [#/Vol] 4.44 x10E12/L Normal 4.00 - 5.20 [facility] Comment on above: Performed By: #### L H #### [facility] [address] [place] [id number] WBC (Bld) [#/Vol] 12.4 10*3/uL High 4.4 - 11.3 [facility] Comment on above: Performed By: #### L H #### [facility] [address] [place] [id number] COMPREHENSIVE PANELon 2018 Albumin [Mass/Vol] 3.8 g/dL Normal 3.4 - 5.0 [facility] Comment on above: Performed By: #### L H #### [facility] [address] [place] [id number] ALP [Catalytic activity/Vol] 51 U/L 33 - 110 MO-WGUWD-Ereeq n 310 IVF Work Phone: Comment on above: Performed By: #### L H #### [facility] [address] [place] [address] ALT [Catalytic activity/Vol] 12 U/L Normal 7 - 45 [facility] Comment on above: Result Comment: Melida ents treated with Sulfasalazine may generate falsely decreased results for ALT. Performed By: #### L H #### [facility] [address] [place] [address] Anion gap [Moles/Vol] 13 mmol/L 10 - 20 ME-EWRFE-Szvii n 310 IVF Work Phone: Comment on above: Performed By: #### L H #### [facility] [address] [place] [address] AST [Catalytic activity/Vol] 12 U/L Normal 9 - 39 [facility] Comment on above: Performed By: #### L H #### [facility] [address] [place] [address] Bilirubin [Mass/Vol] 0.4 mg/dL 0.0 - 1.2 TE-XQOJT-Slgzu n 310 IVF Work Phone: Comment on above: Performed By: #### L H #### [facility] [address] [place] [address] Calcium [Mass/Vol] 9.3 mg/dL 8.6 - 10.3 FP-AVBZL-Cqzpe n 310 IV[facility] Work Phone: Comment on above: Performed By: #### L H #### [facility] [address] [place] [address] Chloride [Moles/Vol] 102 mmol/L 98 - 107 NL-PPGHW-Xbejv n 310 IVF Work Phone: Comment on above: Performed By: #### L H #### [facility] [address] [place] [address] Creatinine [Mass/Vol] 0.89 mg/dL See Below VH-CSXRE-Gbbdq n 310 IVF Work Phone: Comment on above: Performed By: #### L H #### [facility] [address] [place] [id number] Reference Range: 0.5 0 - 1.05 GFR- AM. >60 Normal >60 [facility] Comment on above: Result Comment: CALC ULATIONS OF ESTIMATED GFR ARE PERFORMED USING THE MDRD STUDY EQUATION FOR THE IDMS-TRACEABLE CREATININE METHODS. CLIN CHEM 2007;53:766-72 Performed By: #### L H #### [facility] [address] [place] [id number] GFR-NON AM. >60 Normal >60 [facility] Comment on above: Performed By: #### L H #### [facility] [address] [place] [id number] Glucose [Mass/Vol] 74 mg/dL 74 - 99 SO-RBSPU-Xznpn n 310 IVF Work Phone: Comment on above: Performed By: #### L H #### [facility] [address] [place] [id number] HCO3 (Bld) [Moles/Vol] 25 mmol/L Normal 21 - 32 [facility] Comment on above: Performed By: #### L H #### [facility] [address] [place] [id number] Potassium [Moles/Vol] 4.1 mmol/L 3.5 - 5.3 OS-LJBQS-Jqcwu n 310 IVF Work Phone: Comment on above: Performed By: #### L H #### [facility] [address] [place] [id number] Protein [Mass/Vol] 6.0 g/dL below low threshold 6.4 - 8.2 NP-RRULJ-Rigvm n 310 IVF Work Phone: Comment on above: Performed By: #### L H #### [facility] [address] [place] [id number] Sodium [Moles/Vol] 136 mmol/L 136 - 145 HH-SIRQK-Cmpdf n 310 IVF Work Phone: Comment on above: Performed By: #### L H #### [facility] [address] [place] [address] Urea nitrogen [Mass/Vol] 11 mg/dL 6 - 23 AX-JIVZD-Ilkhl n 310 IVF Work Phone: Comment on above: Performed By: #### L H #### [facility] [address] [place] [address] HCG, Beta Quantitativeon HCG.beta subunit Qn 7102 {mIU/mL} Abnormal MM-PUISH-Yonxv n 310 IVF Work Phone: Comment on [...] performed using a different test methodology at [facility] than other [facility]. Direct result comparison should only be made within the same method. REF VALUESNON FEMALE <5MALES <5 HCG,BETA-QUANTITATIVEon 12- HCG,BETA-QUANTITA TIVE 7102 mIU/mL [facility] Comment on above: Result Comment: Low- level [...] HCG measurement is performed using the [employer] Access Immunoassay which detects intact HCG and free beta HCG subunit. This test is not indicated for use as a tumor marker. HCG testing is performed using a different test methodology at [facility] than other [facility]. Direct result comparison should only be made within the same method. REF VALUES NON FEMALE <5 MALES <5 Performed By: #### L H #### [facility] [address] [place] [address] Hematologyon 11-09-2019 Platelets (Bld) [#/Vol] 411 {x10E9/L} 150 - 450 SC-KKNBK-Cacxe n 310 IVF Work Phone: RBC (Bld) [#/Vol] 4.44 {x10E12/L} See Below MG -OBGYN-Risma n 310 IVF Work Phone: Comment on above: Reference Range: 4.0 0 - 5.20 WBC (Bld) [#/Vol] 12.4 {x10E9/L} above high threshold 4.4 - 11.3 ED-PGHUY-Zujlt n 310 IVF Work Phone: Metabolic Panelon 11-09-2019 CO2 [Moles/Vol] 25 mmol/L 21 - 32 MG-OBGYN- Risma n 310 IVF Work Phone: Otheron 11-09-2019 Albumin BCP dye [Mass/Vol] 3.8 g/dL 3.4 - 5.0 OQ-OQDGY-Ivubv n 310 IVF Work Phone: ALT With P-5'-P [Catalytic activity/Vol] 12 U/L 7 - 45 XL-NEQDJ-Pzlut n 310 IVF Work Phone: Comment on above: Patients treated wit h Sulfasalazine may generate falsely decreased results for ALT. AST With P-5'-P [Catalytic activity/Vol] 12 U/L 9 - 39 BR-KDNEA-Nsyly n 310 IVF Work Phone: >60 >60 KS-GBFMD-Nmurx n 310 IVF Work Phone: Comment on [...] HCG measurement is performed using the [employer] Access Immunoassay which detects intact HCG and free beta HCG subunit. This test is not indicated for use as a tumor marker. HCG testing is performed using a different test methodology at [facility] than other [facility]. Direct result comparison should only be made within the same method. REF VALUESNON FEMALE <5MALES <5 HCG,BETA-QUANTITATIVEon 10-15 HCG,BETA-QUANTITA TIVE 240 mIU/mL [facility] Comment on above: Result Comment: Low- level [...] HCG measurement is performed using the [employer] Access Immunoassay which detects intact HCG and free beta HCG subunit. This test is not indicated for use as a tumor marker. HCG testing is performed using a different test methodology at [facility] than other [facility]. Direct result comparison should only be made within the same method. REF VALUES NON FEMALE <5 MALES <5 Performed By: #### E STRA #### [facility] [address] [place] [address] ESTRADIOLon 10-14-2019 ESTRADIOL 1871 pg/mL Normal [facility] Comment on above: Result Comment: Estr adiol measurement is performed using the [employer] Access Immunoassay. Estradiol testing is performed using a different test methodology at [facility] than other [facility]. Direct result comparison should only be made within the same method. REF VALUES FOLLICULAR PHASE 20-144 MID CYCLE 64-357 LUTEAL PHASE 56-214 POSTMENOPAUSE < 32 PREPUBERTY < 20 MALE 10-18Y < 20 ADULT MALE < 40 Performed By: #### E STRA #### [facility] [address] [place] [address] Estradiol, Serumon 9 E2 [Mass/Vol] 1871 pg/mL MG-OBGYN-Ri sma n 310 IVF Work Phone: Comment on above: Estradiol measuremen t is performed using the [employer] Access Immunoassay. Estradiol testing is performed using a different test methodology at [facility] than other [facility]. Direct result comparison should only be made within the same method.REF VALUESFOLLICULAR PHASE 20-144MID CYCLE 64-357LUTEAL PHASE 56-214POSTMENOPAUSE < 32PREPUBERTY < 20MALE 10-18Y < 20ADULT MALE < 40 PROGESTERONEon 10-14-2019 PROGESTERONE 1.0 ng/mL Normal [facility] Comment on above: Result Comment: Prog esterone is performed using the [employer] Access Immunoassay. Progesterone testing is performed using a different test methodology at [facility] than other [facility]. Direct result comparison should only be made within the same method. REF VALUES MALE <0.2-0.8 FOLLICULAR PHASE <0.2-1.5 LUTEAL PHASE 7.4-15.4 POSTMENOPAUSAL <0.2-0.2 1ST TRIMESTER 12.0-84.0 2ND TRIMESTER 10.2-58.8 3RD TRIMESTER 46.5-160 Performed By: #### E STRA #### [facility] [address] [place] [address] Progesterone, Serumon 2018 Progesterone [Mass/Vol] 1.0 ng/mL AB-KGWLL-Trcjs n 310 IVF Work Phone: Comment on above: Progesterone is perf ormed using the [employer] Access Immunoassay. Progesterone testing is performed using a different test methodology at [facility] than other [facility]. Direct result comparison should only be made within the same method.REF VALUESMALE <0.2-0.8 FOLLICULAR PHASE <0.2-1.5 LUTEAL PHASE 7.4-15.4 POSTMENOPAUSAL <0.2-0.2 1ST TRIMESTER 12.0-84.0 2ND TRIMESTER 10.2-58.8 3RD TRIMESTER 46.5-160 ESTRADIOLon 10-11-2019 ESTRADIOL 284 pg/mL Normal [facility] Comment on above: Result Comment: Estr adiol measurement is performed using the [employer] Access Immunoassay. Estradiol testing is performed using a different test methodology at [facility] than other [facility]. Direct result comparison should only be made within the same method. REF VALUES FOLLICULAR PHASE 20-144 MID CYCLE 64-357 LUTEAL PHASE 56-214 POSTMENOPAUSE < 32 PREPUBERTY < 20 MALE 10-18Y < 20 ADULT MALE < 40 Performed By: #### E STRA #### [facility] [address] [place] [address] Estradiol, Serumon 9 E2 [Mass/Vol] 284 pg/mL MG-OBGYN-Ri sma n 310 IVF Work Phone: Comment on above: Estradiol measuremen t is performed using the [employer] Access Immunoassay. Estradiol testing is performed using a different test methodology at [facility] than other [facility]. Direct result comparison should only be made within the same method.REF VALUESFOLLICULAR PHASE 20-144MID CYCLE 64-357LUTEAL PHASE 56-214POSTMENOPAUSE < 32PREPUBERTY < 20MALE 10-18Y < 20ADULT MALE < 40 ESTRADIOLon 10-05-2019 ESTRADIOL 129 pg/mL Normal [facility] Comment on above: Result Comment: Estr adiol measurement is performed using the [employer] Access Immunoassay. Estradiol testing is performed using a different test methodology at [facility] than other [facility]. Direct result comparison should only be made within the same method. REF VALUES FOLLICULAR PHASE 20-144 MID CYCLE 64-357 LUTEAL PHASE 56-214 POSTMENOPAUSE < 32 PREPUBERTY < 20 MALE 10-18Y < 20 ADULT MALE < 40 Performed By: #### E STRA #### [facility] [address] [place] [address] Estradiol, Serumon 9 E2 [Mass/Vol] 129 pg/mL MG-OBGYN-Ri sma n 310 IVF Work Phone: Comment on above: Estradiol measuremen t is performed using the [employer] Access Immunoassay. Estradiol testing is performed using a different test methodology at [facility] than other [facility]. Direct result comparison should only be made within the same method.REF VALUESFOLLICULAR PHASE 20-144MID CYCLE 64-357LUTEAL PHASE 56-214POSTMENOPAUSE < 32PREPUBERTY < 20MALE 10-18Y < 20ADULT MALE < 40 PROGESTERONEon 10-05-2019 PROGESTERONE 0.2 ng/mL Normal [facility] Comment on above: Result Comment: Prog esterone is performed using the [employer] Access Immunoassay. Progesterone testing is performed using a different test methodology at [facility] than other [facility]. Direct result comparison should only be made within the same method. REF VALUES MALE <0.2-0.8 FOLLICULAR PHASE <0.2-1.5 LUTEAL PHASE 7.4-15.4 POSTMENOPAUSAL <0.2-0.2 1ST TRIMESTER 12.0-84.0 2ND TRIMESTER 10.2-58.8 3RD TRIMESTER 46.5-160 Performed By: #### E STRA #### [facility] [address] [place] [address] Progesterone, Serumon 2018 Progesterone [Mass/Vol] 0.2 ng/mL MV-MYDSO-Pejlr n 310 IVF Work Phone: Comment on above: Progesterone is perf ormed using the [employer] Access Immunoassay. Progesterone testing is performed using a different test methodology at [facility] than other [facility]. Direct result comparison should only be made within the same method.REF VALUESMALE <0.2-0.8 FOLLICULAR PHASE <0.2-1.5 LUTEAL PHASE 7.4-15.4 POSTMENOPAUSAL <0.2-0.2 1ST TRIMESTER 12.0-84.0 2ND TRIMESTER 10.2-58.8 3RD TRIMESTER 46.5-160 ESTRADIOLon 10-02-2019 ESTRADIOL 357 pg/mL Normal [facility] Comment on above: Result Comment: Estr adiol measurement is performed using the [employer] Access Immunoassay. Estradiol testing is performed using a different test methodology at [facility] than other [facility]. Direct result comparison should only be made within the same method. REF VALUES FOLLICULAR PHASE 20-144 MID CYCLE 64-357 LUTEAL PHASE 56-214 POSTMENOPAUSE < 32 PREPUBERTY < 20 MALE 10-18Y < 20 ADULT MALE < 40 Performed By: #### E STRA #### [facility] [address] [place] [address] Estradiol, Serumon 9 E2 [Mass/Vol] 357 pg/mL MG-OBGYN-Cr ock er 206A IVF Work Phone: Comment on above: Estradiol measuremen t is performed using the [employer] Access Immunoassay. Estradiol testing is performed using a different test methodology at [facility] than other [facility]. Direct result comparison should only be made within the same method.REF VALUESFOLLICULAR PHASE 20-144MID CYCLE 64-357LUTEAL PHASE 56-214POSTMENOPAUSE < 32PREPUBERTY < 20MALE 10-18Y < 20ADULT MALE < 40 LUTEINIZING HORMONEon 2018 LUTEINIZING HORMONE 14.7 IU/L Normal [facility] Comment on above: Result Comment: Lute inizing Hormone [LH] is performed using the [employer] Access Immunoassay. LH testing is performed using a different test methodology at [facility] than other [facility]. Direct result comparison should only be made within the same method. REF VALUES FOLLICULAR PHASE 1.5-10.0 MID-CYCLE 13.0-72.0 LUTEAL PHASE 0.5-13.0 MENOPAUSE 15.0-65.0 PREPUBERTY 0- 3.0 CHILDREN 0- 6.0 ADULT MALE 1.0- 9.0 Performed By: #### E [facility] #### [facility] [address] [place] [address] Luteinizing Hormone, Serumon 10-02-2019 Lutropin Qn 14.7 {IU/L} QJ-UYCCU-Vjz ck er 206A IVF Work Phone: Comment on above: Luteinizing Hormone [LH] is performed using the [employer] Access Immunoassay. LH testing is performed using a different test methodology at [facility] than other [facility]. Direct result comparison should only be made within the same method.REF VALUESFOLLICULAR PHASE 1.5-10.0MID-CYCLE 13.0-72.0LUTEAL PHASE 0.5-13.0MENOPAUSE 15.0-65.0PREPUBERTY 0- 3.0CHILDREN 0- 6.0ADULT MALE 1.0- 9.0 PROGESTERONEon 10-02-2019 PROGESTERONE 0.1 ng/mL Normal [facility] Comment on above: Result Comment: Prog esterone is performed using the [employer] Access Immunoassay. Progesterone testing is performed using a different test methodology at [facility] than other [facility]. Direct result comparison should only be made within the same method. REF VALUES MALE <0.2-0.8 FOLLICULAR PHASE <0.2-1.5 LUTEAL PHASE 7.4-15.4 POSTMENOPAUSAL <0.2-0.2 1ST TRIMESTER 12.0-84.0 2ND TRIMESTER 10.2-58.8 3RD TRIMESTER 46.5-160 Performed By: #### E STRA #### [facility] [address] [place] [address] Progesterone, Serumon 2018 Progesterone [Mass/Vol] 0.1 ng/mL MD-KMZEW-Fvyol er 206A IVF Work Phone: Comment on above: Progesterone is perf ormed using the [employer] Access Immunoassay. Progesterone testing is performed using a different test methodology at [facility] than other [facility]. Direct result comparison should only be made within the same method.REF VALUESMALE <0.2-0.8 FOLLICULAR PHASE <0.2-1.5 LUTEAL PHASE 7.4-15.4 POSTMENOPAUSAL <0.2-0.2 1ST TRIMESTER 12.0-84.0 2ND TRIMESTER 10.2-58.8 3RD TRIMESTER 46.5-160 HCG,BETA-QUANTITATIVEon - HCG,BETA-QUANTITA TIVE 10 mIU/mL [facility] Comment on above: Result Comment: Low- level [...] performed using a different test methodology at [facility] than other [facility]. Direct result comparison should only be made within the same method. REF VALUES NON FEMALE <5 MALES <5 Performed By: #### L H #### [facility] [address] [place] [address] LUTEINIZING HORMONEon 2018 LUTEINIZING HORMONE 57.0 IU/L Normal [facility] Comment on above: Result Comment: Lute inizing Hormone [LH] is performed using the [employer] Access Immunoassay. LH testing is performed using a different test methodology at [facility] than other [facility]. Direct result comparison should only be made within the same method. REF VALUES FOLLICULAR PHASE 1.5-10.0 MID-CYCLE 13.0-72.0 LUTEAL PHASE 0.5-13.0 MENOPAUSE 15.0-65.0 PREPUBERTY 0- 3.0 CHILDREN 0- 6.0 ADULT MALE 1.0- 9.0 Performed By: #### E STRA #### [facility] [address] [place] [address] PROGESTERONEon 08-13-2019 PROGESTERONE 6.7 ng/mL Normal [facility] Comment on above: Result Comment: Prog esterone is performed using the [employer] Access Immunoassay. Progesterone testing is performed using a different test methodology at [facility] than other [facility]. Direct result comparison should only be made within the same method. REF VALUES MALE <0.2-0.8 FOLLICULAR PHASE <0.2-1.5 LUTEAL PHASE 7.4-15.4 POSTMENOPAUSAL <0.2-0.2 1ST TRIMESTER 12.0-84.0 2ND TRIMESTER 10.2-58.8 3RD TRIMESTER 46.5-160 Performed By: #### L H #### [facility] [address] [place] [address] ESTRADIOLon 08-12-2019 ESTRADIOL 1380 pg/mL Normal [facility] Comment on above: Result Comment: Estr adiol measurement is performed using the [employer] Access Immunoassay. Estradiol testing is performed using a different test methodology at [facility] than other [facility]. Direct result comparison should only be made within the same method. REF VALUES FOLLICULAR PHASE 20-144 MID CYCLE 64-357 LUTEAL PHASE 56-214 POSTMENOPAUSE < 32 PREPUBERTY < 20 MALE 10-18Y < 20 ADULT MALE < 40 Performed By: #### L H #### [facility] [address] [place] [id number] PROGESTERONEon 08-12-2019 PROGESTERONE 1.7 ng/mL Normal [facility] Comment on above: Result Comment: Prog esterone is performed using the [employer] Access Immunoassay. Progesterone testing is performed using a different test methodology at [facility] than other [facility]. Direct result comparison should only be made within the same method. REF VALUES MALE <0.2-0.8 FOLLICULAR PHASE <0.2-1.5 LUTEAL PHASE 7.4-15.4 POSTMENOPAUSAL <0.2-0.2 1ST TRIMESTER 12.0-84.0 2ND TRIMESTER 10.2-58.8 3RD TRIMESTER 46.5-160 Performed By: #### L H #### [facility] [address] [place] [address] ESTRADIOLon 08-11-2019 ESTRADIOL 874 pg/mL Normal [facility] Comment on above: Result Comment: Estr adiol measurement is performed using the [employer] Access Immunoassay. Estradiol testing is performed using a different test methodology at [facility] than other [facility]. Direct result comparison should only be made within the same method. REF VALUES FOLLICULAR PHASE 20-144 MID CYCLE 64-357 LUTEAL PHASE 56-214 POSTMENOPAUSE < 32 PREPUBERTY < 20 MALE 10-18Y < 20 ADULT MALE < 40 Performed By: #### L H #### [facility] [address] [place] [address] PROGESTERONEon 08-11-2019 PROGESTERONE 1.2 ng/mL Normal [facility] Comment on above: Result Comment: Prog esterone is performed using the [employer] Access Immunoassay. Progesterone testing is performed using a different test methodology at [facility] than other [facility]. Direct result comparison should only be made within the same method. REF VALUES MALE <0.2-0.8 FOLLICULAR PHASE <0.2-1.5 LUTEAL PHASE 7.4-15.4 POSTMENOPAUSAL <0.2-0.2 1ST TRIMESTER 12.0-84.0 2ND TRIMESTER 10.2-58.8 3RD TRIMESTER 46.5-160 Performed By: #### L H #### [facility] [address] [place] [address] ESTRADIOLon 08-09-2019 ESTRADIOL 385 pg/mL Normal [facility] Comment on above: Result Comment: Estr adiol measurement is performed using the [employer] Access Immunoassay. Estradiol testing is performed using a different test methodology at [facility] than other [facility]. Direct result comparison should only be made within the same method. REF VALUES FOLLICULAR PHASE 20-144 MID CYCLE 64-357 LUTEAL PHASE 56-214 POSTMENOPAUSE < 32 PREPUBERTY < 20 MALE 10-18Y < 20 ADULT MALE < 40 Performed By: #### L H #### [facility] [address] [place] [address] ESTRADIOLon 08-07-2019 ESTRADIOL 80 pg/mL Normal [facility] Comment on above: Result Comment: Estr adiol measurement is performed using the [employer] Access Immunoassay. Estradiol testing is performed using a different test methodology at [facility] than other [facility]. Direct result comparison should only be made within the same method. REF VALUES FOLLICULAR PHASE 20-144 MID CYCLE 64-357 LUTEAL PHASE 56-214 POSTMENOPAUSE < 32 PREPUBERTY < 20 MALE 10-18Y < 20 ADULT MALE < 40 Performed By: #### L H #### [facility] [address] [place] [address] ESTRADIOLon 08-04-2019 ESTRADIOL 58 pg/mL Normal [facility] Comment on above: Result Comment: Estr adiol measurement is performed using the Jose Ryan Access Immunoassay. Estradiol testing is performed using a different test methodology at [facility]. Direct result comparison should only be made within the same method. REF VALUES FOLLICULAR PHASE 20-144 MID CYCLE 64-357 LUTEAL PHASE 56-214 POSTMENOPAUSE < 32 PREPUBERTY < 20 MALE 10-18Y < 20 ADULT MALE < 40 Performed By: #### L H #### [facility] [address] [place] [address] ESTRADIOLon 07-07-2019 ESTRADIOL 110 pg/mL Normal [facility] Comment on above: Result Comment: Estr adiol measurement is performed using the Jose Steptoe Access Immunoassay. Estradiol testing is performed using a different test methodology at [facility] than other [facility]. Direct result comparison should only be made within the same method. REF VALUES FOLLICULAR PHASE 20-144 MID CYCLE 64-357 LUTEAL PHASE 56-214 POSTMENOPAUSE < 32 PREPUBERTY < 20 MALE 10-18Y < 20 ADULT MALE < 40 Performed By: #### L H #### [facility] [address] [place] [address] NR MRI SELLA WO/Won 05-31-20 19 NR MRI SELLA WO/W Patient Name: KIARA ASHLEY STUDY: NR MRI SELLA WO/W; 05/31/2019 2:00 pm INDICATION: History of 7 mm microadenoma 2008. COMPARISON: None. ACCESSION NUMBER(S): [id number] ORDERING CLINICIAN: SHAHLA HEALY TECHNIQUE: High resolution [...] Electronically signed by: IRENE BLAKE PHYSICIAN Normal [facility] ESTRADIOLon 05-05-2019 ESTRADIOL 217 pg/mL Normal [facility] Comment on above: Result Comment: Estr adiol measurement is performed using the [employer] Access Immunoassay. Estradiol testing is performed using a different test methodology at [facility] than other [facility]. Direct result comparison should only be made within the same method. REF VALUES FOLLICULAR PHASE 20-144 MID CYCLE 64-357 LUTEAL PHASE 56-214 POSTMENOPAUSE < 32 PREPUBERTY < 20 MALE 10-18Y < 20 ADULT MALE < 40 Performed By: #### E [facility] #### [facility] [address] [place] [address] LUTEINIZING HORMONEon 2018 LUTEINIZING HORMONE 4.4 IU/L Normal [facility] Comment on above: Result Comment: Lute inizing Hormone [LH] is performed using the Jose Steptoe Access Immunoassay. LH testing is performed using a different test methodology at [facility]. Direct result comparison should only be made within the same method. REF VALUES FOLLICULAR PHASE 1.5-10.0 MID-CYCLE 13.0-72.0 LUTEAL PHASE 0.5-13.0 MENOPAUSE 15.0-65.0 PREPUBERTY 0- 3.0 CHILDREN 0- 6.0 ADULT MALE 1.0- 9.0 Performed By: #### L H #### [facility] [address] [place] [address] ESTRADIOLon 04-11-2019 ESTRADIOL 118 pg/mL Normal [facility] Comment on above: Result Comment: Estr adiol measurement is performed using the Jose Steptoe Access Immunoassay. Estradiol testing is performed using a different test methodology at [facility]. Direct result comparison should only be made within the same method. REF VALUES FOLLICULAR PHASE 20-144 MID CYCLE 64-357 LUTEAL PHASE 56-214 POSTMENOPAUSE < 32 PREPUBERTY < 20 MALE 10-18Y < 20 ADULT MALE < 40 Performed By: #### E STRA #### [facility] [address] [place] [address] LUTEINIZING HORMONEon 2018 LUTEINIZING HORMONE 7.7 IU/L Normal [facility] Comment on above: Result Comment: Lute inizing Hormone [LH] is performed using the Jose Ryan Access Immunoassay. LH testing is performed using a different test methodology at [facility]. Direct result comparison should only be made within the same method. REF VALUES FOLLICULAR PHASE 1.5-10.0 MID-CYCLE 13.0-72.0 LUTEAL PHASE 0.5-13.0 MENOPAUSE 15.0-65.0 PREPUBERTY 0- 3.0 CHILDREN 0- 6.0 ADULT MALE 1.0- 9.0 Performed By: #### L H #### [facility] [address] [place] [address] PROGESTERONEon 04-11-2019 PROGESTERONE 0.1 ng/mL Normal [facility] Comment on above: Result Comment: Prog esterone is performed using the [employer] Access Immunoassay. Progesterone testing is performed using a different test methodology at [facility] than other [facility]. Direct result comparison should only be made within the same method. REF VALUES MALE <0.2-0.8 FOLLICULAR PHASE <0.2-1.5 LUTEAL PHASE 7.4-15.4 POSTMENOPAUSAL <0.2-0.2 1ST TRIMESTER 12.0-84.0 2ND TRIMESTER 10.2-58.8 3RD TRIMESTER 46.5-160 Performed By: #### P SVEN #### [facility] [address] [place] [address] ESTRADIOLon 03-17-2019 ESTRADIOL 120 pg/mL Normal [facility] Comment on above: Result Comment: Estr adiol measurement is performed using the [employer] Access Immunoassay. Estradiol testing is performed using a different test methodology at [facility] than other [facility]. Direct result comparison should only be made within the same method. REF VALUES FOLLICULAR PHASE 20-144 MID CYCLE 64-357 LUTEAL PHASE 56-214 POSTMENOPAUSE < 32 PREPUBERTY < 20 MALE 10-18Y < 20 ADULT MALE < 40 Performed By: #### E STRA #### [facility] [address] [place] [address] LUTEINIZING HORMONEon 2018 LUTEINIZING HORMONE 6.8 IU/L Normal [facility] Comment on above: Result Comment: Lute inizing Hormone [LH] is performed using the [employer] Access Immunoassay. LH testing is performed using a different test methodology at [facility] than other [facility]. Direct result comparison should only be made within the same method. REF VALUES FOLLICULAR PHASE 1.5-10.0 MID-CYCLE 13.0-72.0 LUTEAL PHASE 0.5-13.0 MENOPAUSE 15.0-65.0 PREPUBERTY 0- 3.0 CHILDREN 0- 6.0 ADULT MALE 1.0- 9.0 Performed By: #### L H #### [facility] [address] [place] [address] ESTRADIOLon 02-20-2019 ESTRADIOL 521 pg/mL Normal [facility] Comment on above: Result Comment: Estr adiol measurement is performed using the [employer] Access Immunoassay. Estradiol testing is performed using a different test methodology at [facility] than other [facility]. Direct result comparison should only be made within the same method. REF VALUES FOLLICULAR PHASE 20-144 MID CYCLE 64-357 LUTEAL PHASE 56-214 POSTMENOPAUSE < 32 PREPUBERTY < 20 MALE 10-18Y < 20 ADULT MALE < 40 Performed By: #### E STRA #### [facility] [address] [place] [address] LUTEINIZING HORMONEon 2018 LUTEINIZING HORMONE 3.5 IU/L Normal [facility] Comment on above: Result Comment: Lute inizing Hormone [LH] is performed using the [employer] Access Immunoassay. LH testing is performed using a different test methodology at [facility] than other [facility]. Direct result comparison should only be made within the same method. REF VALUES FOLLICULAR PHASE 1.5-10.0 MID-CYCLE 13.0-72.0 LUTEAL PHASE 0.5-13.0 MENOPAUSE 15.0-65.0 PREPUBERTY 0- 3.0 CHILDREN 0- 6.0 ADULT MALE 1.0- 9.0 Performed By: #### L H #### [facility] [address] [place] [address] Vital Signs Date Time Vital Sign Value Performing Clinician Modesto golden 12-27-2023 10:57-0500 Body mass index (BMI) [Ratio] 34.84 kg/m2 Bere JOHNSON Work Phone: [facility] 12-27-2023 10:57-0500 Body weight 83.64 kg Bere JOHNSON Work Phone: [facility] 12-27-2023 10:57-0500 Diastolic blood pressure 68 mm[Hg] Bere JOHNSON Work Phone: [facility] 12-27-2023 10:57-0500 Systolic blood pressure 110 mm[Hg] Bere JOHNSON Work Phone: [facility] 02-27-2023 11:35-0400 Body mass index (BMI) [Ratio] 29.26 kg/m2 Evelyn Perez Work Phone: [employer] 02-27-2023 11:35-0400 Body temperature 98.8 [degF] Evelyn Grubererhorn Work Phone: [facility] [employer] 02-27-2023 11:35-0400 Body weight 72.58 kg Evelyn Grubererhorn Work Phone: [employer] 02-27-2023 11:35-0400 Diastolic blood pressure 66 mm[Hg] Evelyn Grubererhorn Work Phone: [employer] 02-27-2023 11:35-0400 Heart rate 88 /min Evelyn Grubererhorn Work Phone: [facility] [employer] 02-27-2023 11:35-0400 Respiratory rate 14 /min Evelyn Grubererhorn Work Phone: [facility] [employer] 02-27-2023 11:35-0400 SaO2% (BldA) [Mass fraction] 100 % Evelyn Calderonrn Work Phone: [facility] [employer] 02-27-2023 11:35-0400 Systolic blood pressure 103 mm[Hg] Evelyn Grubererhorn Work Phone: [facility] [employer] 06-19-2021 14:03-0400 Body height 157.48 cm Evelyn Grubererhorn Work Phone: QU-HCPHK-Pyzpqv 310 IVF Work Phone: 06-19-2021 14:03-0400 Body mass index (BMI) [Ratio] 29.26 kg/m2 Evelyn Husain Ana Work Phone: ST-YXUOC-Yzyavv 310 IVF Work Phone: 06-19-2021 14:03-0400 Body surface area Derived from formula 1.74 m2 Evelyn Husain Ana Work Phone: MQ-QZEMG-Xnzaqx 310 IVF Work Phone: 06-19-2021 14:03-0400 Body weight 72.58 kg Evelyn M Ana Work Phone: WP-WYWKI-Ssqese 310 IVF Work Phone: 06-19-2021 14:03-0400 1 1 Evelyn M Ana Work Phone: EJ-DDGXD-Rxkjqg 310 IVF Work Phone: Comment on above: GRAV PARA 06-19-2021 14:03-0400 0 1 Evelyn M Ana Work Phone: PE-RAKIC-Ieuyed 310 IVF Work Phone: Comment on above: [employer] 06-07-2020 10:41-0400 BMI (Body Mass Index) 34.93 kg/m2 King Lappen NS-GUZBU-CXQ [address] [place] Work Phone: 06-07-2020 10:41-0400 Body weight 86.64 kg King Lappen KQ-TKEUO-GPL 120 0 [place] Work Phone: 06-07-2020 10:41-0400 BP Diastolic 76 mm[Hg] King Lappen TP-QDWPX-HWP 120 0 [place] Work Phone: 06-07-2020 10:41-0400 BP Systolic 111 mm[Hg] King Lappen MP-LUVLO-CWP 120 0 [place] Work Phone: 06-07-2020 10:41-0400 BSA (Body Surface Area) 1.87 m2 King Lappen ZA-QFIRY-YUM [address] [place] Work Phone: 06-07-2020 10:41-0400 Pulse (Heart Rate) 101 /min King Lappen BM-QLPDS-JSM [address] [place] Work Phone: 06-07-2020 10:41-0400 0 1 King Lappen QV-HWXBI-WOA 120 0 [place] Work Phone: Comment on above: [employer] 12-25-2019 10:58-0500 BMI (Body Mass Index) 30.18 kg/m2 King Lappen KW-HFYSZ-AUC [address] [place] Work Phone: 12-25-2019 10:58-0500 Body weight 74.84 kg King Lappen NM-RKXZS-OEN 120 0 [place] Work Phone: 12-25-2019 10:58-0500 BP Diastolic 68 mm[Hg] King Lappen JZ-LQWYY-ZKZ 120 0 [place] Work Phone: 12-25-2019 10:58-0500 BP Systolic 112 mm[Hg] King Lappen XD-IYDOH-HAH 120 0 [place] Work Phone: 12-25-2019 10:58-0500 BSA (Body Surface Area) 1.76 m2 King Lappen BC-XOPHT-YZQ 1200 [place] Work Phone: 11-09-2019 11:28-0500 Body Temperature 98.78 [degF] Kelechi Gage IP-HTWAS-Ljqilv 310 IVF Work Phone: 11-09-2019 11:28-0500 BP Diastolic 76 mm[Hg] Kelechi Gage JC-EYEMU-Pdstha 310 IVF Work Phone: 11-09-2019 11:28-0500 BP Systolic 112 mm[Hg] Kelechi Gage DN-PSQNO-Yrspom 310 IVF Work Phone: 11-09-2019 11:28-0500 Respiratory Rate 96 /min Kelechi Gage JJ-MQHXW-Gjquca 310 IVF Work Phone: Encounters Encounter Date Encounter Type Care Provider Facility Start: 01-24-2024 End: 01-24-2024 ambulatory BERE STEEL Not Available Start: 01-10-2024 End: 01-11-2024 ambulatory Zoya Buitrago [place] [employer] SERVICE MANAGER Facility:[facility]ul[facility]ology & [facility] Start: 12-27-2023 End: 12-27-2023 ambulatory BERE [employer] Not Available Start: 12-27-2023 End: 12-27-2023 flow sheet Bere Oneida PA Work Phone: [facility] Comment on above: Third trimester preg teddy; First trimester ; Hypothyroidism, unspecified type (CMS/HCC); Hypothyroidism (acquired) (CMS/HCC); H/O blood clots; Excessive growth affecting management of in third trimester, single or unspecified fetus Start: 11-30-2023 End: 11-30-2023 ambulatory DEMARIO RIBEIRO Not Available Start: 11-03-2023 End: 11-03-2023 ambulatory DEMARIO RIBEIRO Not Available Start: 10-05-2023 End: 10-05-2023 ambulatory BERE STEEL Not Available Start: 09-14-2023 End: 09-14-2023 ambulatory Lc Waite Facility:[facility] Start: 02-27-2023 End: 02-27-2023 Emergency department patient visit EVELYN Husain ANA [facility] Start: 02-27-2023 End: 02-27-2023 [facility] Phone: [facility] ED Comment on above: Sprain of left ankle , unspecified ligament, initial encounter (Primary Dx) Start: 01-11-2023 End: 01-11-[address] DEMARIO RIBEIRO . Facility:[facility] Start: 09-22-2022 End: 09-22-2022 Emergency department patient visit JAMI ROMERO [facility] Start: 03-10-[address] EVELYN PEREZ [...] 12-27-2021 End: 12-27-2021 ambulatory Sabina Barnhart Other [facility] [employer] Other Start: 12-27-2021 Office outpatient visit 5 minutes Sabina Barnhart [facility] Start: 07-16-2021 Patient encounter procedure Evelyn Perez Work Phone: LU-SILZY-Iiisyk 310 IVF Work Phone: Start: 07-07-2021 AUDIT Evelyn santana Work Phone: PK-BHMAZ-Pltfmr 310 IVF Work Phone: Start: 07-07-2021 Chart Update Evelyn santana Work Phone: MR-CTQRA-Mhbtgz 310 IVF Work Phone: Start: 07-02-2021 Telephone encounter Evelyn gonzales Work Phone: FH-GRJKH-Usphsa 310 IVF Work Phone: Start: 06-19-2021 Patient encounter procedure Evelyn Perez Work Phone: GK-RTBYG-Pzktjq 310 IVF Work Phone: Start: 06-07-2020 Patient encounter procedure King Lappen BT-VTUVP-HOF [address] [place] Work Phone: Start: 04-24-2020 Patient encounter procedure King Lappen SS-QAZWF-LKV 1200 [place] Work Phone: Start: 02-20-2020 Patient encounter procedure King Lappen WP-OXNNE-GMP 1200 [place] Work Phone: Start: 02-14-2020 Patient encounter procedure King Lappen MW-NJAEB-HQV 1200 [place] Work Phone: Start: 01-23-2020 Patient encounter procedure King Lappen JD-RGSVF-AIR 1200 [place] Work Phone: Start: 12-25-2019 Patient encounter procedure King Lappen DZ-PKRDP-WHY 1200 [place] Work Phone: Start: 11-21-2019 Patient encounter procedure King Lappen JT-NFYJV-ZTC 1200 [place] Work Phone: Start: 11-16-2019 Patient encounter procedure Kelechi Gage MP-Reproductive Endocrinology-[place] 206 Work Phone: Start: 11-14-2019 Patient encounter procedure Kelechi Gage TD-HIVOS-Guuprj 310 IVF Work Phone: Start: 11-09-2019 Patient encounter procedure Kelechi Gage OO-MDXYX-Hjcdtt 310 IVF Work Phone: Start: 11-02-2019 Patient encounter procedure Kelechi Gage MP-Reproductive Endocrinology-[place] Work Phone: Start: 10-21-2019 Patient encounter procedure Kelechi Gage MP-Reproductive Endocrinology-[place] Work Phone: Start: 10-14-2019 Patient encounter procedure Kelechi Gage RP-XOPCO-Usojtc 310 IVF Work Phone: Start: 10-11-2019 Patient encounter procedure Kelechi Gage UQ-OOHEZ-Fbonra 310 IVF Work Phone: Start: 10-05-2019 Patient encounter procedure Kelechi Gage EE-ZFDBA-Zosqti 320 Work Phone: Start: 10-02-2019 Patient encounter procedure Kelechi Gage GT-CSGEX-Nkellnl 206A IVF Work Phone: Start: 08-14-2019 Patient encounter procedure Kelechi Gage RU-RLJUY-Tnnhjw 310 IVF Work Phone: Start: 08-13-2019 Patient encounter procedure Kelechi Gage LA-JHSQX-Nijnpu 310 IVF Work Phone: Start: 08-12-2019 Patient encounter procedure Kelechi Gage DJ-LUCPX-Arrxal 310 IVF Work Phone: Start: 08-11-2019 Patient encounter procedure Kelechi Gage BU-HQWGE-Skhvlr 310 IVF Work Phone: Start: 08-09-2019 Patient encounter procedure Kelechi Gage BN-DTEMX-Invgcy 310 IVF Work Phone: Start: 08-07-2019 Patient encounter procedure Kelechi Gage BX-CEDDB-Vacxtr 310 IVF Work Phone: Start: 08-04-2019 Patient encounter procedure Kelechi Gage HP-OCTZF-Kxrqlu 310 IVF Work Phone: Start: 07-07-2019 Patient encounter procedure Kelechi Gage AB-DMGUX-Uwewrf 310 IVF Work Phone: Start: 06-08-2019 Patient encounter procedure Kelechi Gage BK-UXSNW-Fuixvf 310 IVF Work Phone: Start: 05-17-2019 Patient encounter procedure Kelechi TONGQN-GSKYZ-Xipygc 310 IVF Work Phone: Start: 05-08-2019 Patient encounter procedure Kelechi TONGAG-BAWCS-Tyqkkg 310 IVF Work Phone: Start: 05-05-2019 Patient encounter procedure Kelechi Gage JL-FMYZV-Vvpmhy 310 IVF Work Phone: Start: 04-13-2019 Patient encounter procedure Kelechi Gage DR-TRGPG-Hlcmqs 310 IVF Work Phone: Start: 04-11-2019 Patient encounter procedure Kelechi Gage DX-OZQEJ-Nkvkve 310 IVF Work Phone: Start: 03-20-2019 Patient encounter procedure Kelechi Gage PM-OQBIV-Hmlmmq 310 IVF Work Phone: Start: 03-17-2019 Patient encounter procedure Kelechi Gage OE-WNQCQ-Djxbwl 310 IVF Work Phone: Start: 02-22-2019 Patient encounter procedure Kelechi TONGXS-HBBRT-Tefzno 310 IVF Work Phone: Start: 02-20-2019 Patient encounter procedure Kelechi TONGUP-IJVCX-Sdeiea 310 IVF Work Phone: Start: 02-13-2019 Patient encounter procedure Bruce Mayes Facility[place] Start: 02-08-2019 End: 02-12-2019 Patient encounter procedure Bruce Mayes Facility:[facility] Start: 01-19-2019 Patient encounter procedure Kelechi TONGKH-UAWDD-Vvsrpu 310 IVF Work Phone: Patient encounter status Evelyn Perez Work Phone: XJ-PVUQW-Ngdsdv 310 IVF Work Phone: Procedures Date Procedure [...] chlamydia trac homatis amplified probe tq King Guevara Start: 12-25-2019 SYPHILIS SCREENING W ITH REFLEX King Guevara Start: 12-25-2019 Type and Screen King Guevara [...] procedure 02/07/2024 9:40 AM EDT Routine [facility] [address] [place] [phone] Demario Ribeiro, DO [address] [place] [address] [facility] Start: 02-07-2024 End: 02-07-2024 Professional / ancillary services management 02/07/2024 9:00 AM EDT Ancillary Procedure [facility] [address] [place] [phone] [facility] Start: 01-24-2024 End: 01-24-2024 Patient encounter procedure 01/24/2024 9:30 AM EDT Routine [facility] [address] [place], [place] [phone] Bere Steel PA [address] [facility] [address] [place], [place] [id number] [facility] Start: 01-10-2024 End: 01-10-2024 Patient encounter procedure 01/10/2024 2:20 PM EST Routine [facility] [address] [place] [phone] Demario Ribeiro DO [address] [facility] [place] [address] [facility] Start: 01-10-2024 End: 01-10-2024 Professional / ancillary services management 01/10/2024 2:00 PM EST Ancillary Procedure [facility] [address] [place] [phone] [facility] Start: 12-27-2023 End: 12-27-2024 US biophysical profile w non stress test US biophysical profile w non stress test Imaging Routine Hypothyroidism (acquired) (CMS/HCC) H/O blood clots Expected: 12/27/2023 (Approximate), Expires: 12/27/2024 [facility] Work Phone: Comment on above: Expected: 12/27/2023 (Approximate), Expires: 12/27/2024 Start: 12-27-2023 End: 12-27-2024 US for US OB SCAN FOR GROWTH Imaging Routine Hypothyroidism, unspecified type (CMS/HCC) Excessive growth affecting management of in third trimester, single or unspecified fetus Expected: 12/27/2023 (Approximate), Expires: 12/27/2024 [facility] Comment on above: Expected: 12/27/2023 (Approximate), Expires: 12/27/2024 Start: 06-15-2023 Influenza vaccination Flu vacc ine (Season Ended) [facility] Start: 2021 Screening for malignant neoplasm of cervix [facility] Start: 07-25-2021 ULTRASOUND, Provider : OBGYRosenda IVF RDMS AR[place] 1,[facility], Status: Pen, Time: 9:00 AM ULTRASOUND, Provider: OBGYN IVF RDMS ARDEN 1,[facility] OBG[facility], Status: Pen, Time: 9:00 AM SQ-JTPPM-Zmfuiy 310 IVF Work Phone: Start: 07-16-2021 ULTRASOUND, Provider : OBGYN IVF RDMS [id number] 1,[facility] OBG[facility], Status: Pen, Time: 1:00 PM ULTRASOUND, Provider: OBGYN IVF RDMS [id number] 1,[facility] O[facility], Status: Pen, Time: 1:00 PM MF-UXVMU-Lqdkfp 310 IVF Work Phone: Start: 07-07-2021 ULTRASALIN, Provider : Miguel A Barrera, Status: Pen, Time: 10:00 AM ULTRASALIN, Provider: Miguel A Barrera, Status: Pen, Time: 10:00 AM RM-ILBCX-Xyxdlq 310 IVF Work Phone: Start: 06-05-2020 MAC Imaging Order MG-MILITARY TECHNOLOGY SPECIALIST-MAC 1200 [place] Work Phone: Start: 11-16-2019 IO Ultrasound, -Reproductive Endocrinology-[facility] chastity Work Phone: Start: 11-14-2019 Blood count complete auto&auto difrntl wbc Complete Blood Count + Differential HC-IMAHP-Jaygqa 310 IVF Work Phone: Start: 11-14-2019 Comprehensive metabolic 2000 panel SK-XLPJC-Pwwupc 310 IVF Work Phone: Start: 11-02-2019 Gonadotropin chorion ic quantitative HCG, Beta Quantitative MP-Reproductive Endocrinology-[place] [facility] 206 Work Phone: Start: 10-11-2019 IO Ultrasound, limited pelvic, follicle monitoring WQ-CFBPM-Oktcba 310 IVF Work Phone: Start: 10-05-2019 IO Ultrasound, limited pelvic, follicle monitoring WR-NWCYD-Ebtqwh 320 Work Phone: Start: 2012 Screening for malignant neoplasm of cervix Pap smear [facility] Start: 2010 DTaP/Tdap/Td vaccine (1 - Tdap) DTaP/Tdap/Td vaccine (1 - Tdap) [facility] Start: 2009 Hepatitis C screening Hepatitis C sc reen [facility] Start: 2006 HIV screening HIV screen [facility] Start: 2003 Depression Screen Depression Screen [facility] Start: 1992 Varicella vaccine (1 of 2 - 2-dose childhood series) Varicella vaccine (1 of 2 - 2-dose childhood series) [facility] Start: 03-02-1992 COVID-19 Vaccine (#1) COVID-19 Vacci ne (#1) [facility] Assay of estradiol Estradiol, Serum MG-MILITARY TECHNOLOGY SPECIALIST-[place] 310 IVF Work Phone: Comment on above: Approx [id number] Approx [id number] Approx [id number] Assay of progesterone Progesterone, Serum SX-VYBME-Utowry 310 IVF Work Phone: Comment on above: Approx [id number] Gonadotropin luteinizing hormone Luteinizing Hormone, Serum EX-CPEIS-Dlvmhk 310 IVF Work Phone: Comment on above: Approx [id number] IK-SHYXM-Rpdnsg 320 Work Phone: IO Ultrasound, l imited pelvic, follicle monitoring YN-IBNNE-Cybzfy 310 IVF Work Phone: Comment on above: Approx [id number] Approx [id number] Approx [id number] NEGATED: Highlighted row has been ruled out! Planned Goals not documented WR-MBGAU-Cvxtgk 310 IVF Work Phone: Payers Date Payer Category Payer Self-pay 2016 Private Health Insurance [id number] 2016 Private Health Insurance [id number] 1991 Unknown [id number] 2.16.84 0.1.542109.3.579.2.593 1991 Unknown [id number] 2.16.84 0.1.267624.3.579.2.593 1991 Unknown [id number] 2.16.84 0.1.390195.3.579.2.593 1991 Unknown [id number] 2.16.84 0.1.556546.3.579.2.593 1991 Unknown [id number] 2.16.84 0.1.318033.3.579.2.593 1991 Unknown [id number] 2.16.84 0.1.266875.3.579.2.593 1991 Unknown [id number] 2.16.84 0.1.963930.3.579.2.593 1991 Unknown [id number] 2.16.84 0.1.884507.3.579.2.593 1991 Unknown [id number] 2.16.84 0.1.382606.3.579.2.593 1991 Unknown [id number] 2.16.84 0.1.426512.3.579.2.593 1991 Unknown [id number] 2.16.84 0.1.490869.3.579.2.593 1991 Unknown [id number] 2.16.84 0.1.542221.3.579.2.593 1991 Unknown [id number] 2.16.84 0.1.884373.3.579.2.593 1991 Unknown [id number] 2.16.84 0.1.902829.3.579.2.593 1991 Unknown [id number] 2.16.8 40.1.374921.3.579.2.173 1991 Unknown [id number] 2.16.8 40.1.084644.3.579.2.173 1991 Unknown [id number] 2.16. 840.1.524008.3.579.2.196 1991 Unknown [id number] 2.16. 840.1.407483.3.579.2.196 1991 Unknown [id number] 2.16.84 0.1.826057.3.579.2.1259 1991 Unknown [id number] 2.16.84 0.1.665973.3.579.2.1259 1991 Unknown [id number] 2.16.84 0.1.594512.3.579.2.1259 1991 Unknown [id number] 2.16.84 0.1.709850.3.579.2.1259 1991 Unknown [id number] 2.16.840 .1.849605.3.579.2.1259 1991 Unknown [id number] 2.16.840 .1.891978.3.579.2.1259 1959 Self-pay [id number] 1959 Unknown [id number] 1959 Unknown [id number] Unknown [id number] 2.16.8 40.1.512606.3.579.2.243 Unknown [id number] 2.16.8 40.1.257357.3.579.2.243 Unknown Unknown [id number] 2.16.8 40.1.406567.3.579.2.531 Social History Date Type Detail Facility - - [address] Work Phone: Start: 05-11-2023 End: 12-27-2023 Never a smoker Never a smoker [facility] Comment on above: [facility] ED; Start: 05-11-2023 End: 09-06-2023 [facility]igned At [facility] [facility] Start: 09-22-2022 End: 04-15-2023 Tobacco smoking status NHIS Never smoked tobacco [employer] Phone: Start: 09-22-2022 End: 04-15-2023 Tobacco use and exposure Smokeless tobacco non-user [employer] Phone: Start: 1990 Sex Assigned At Not on file B ON inFreeDA Phone: Start: 02-17-2023 End: 02-27-2023 Exposure to SARS-CoV-2 (event) Not sure [employer] Start: 12-27-2023 Alcohol intake Current drinke r [...] status health issues are not documented Disease [id number] 310 IVF Work Phone: Mental Status Date Assessment Result Facility NEGATED: Highlighted row Cognitive function [Interpretation] Cognitive status health issues are not documented Disease [id number]-[id number] 310 IVF Work Phone: History of Present [...] of: ELIZABETH Daly documented in this encounter [facility] Healthcare Evaluation note 12-27-2021 Note Date & [...] Patient care instructions given in writting by [facility] Care At Home document. Press[facility] Other Clinical Note 07-25-2021 Note Date & [...] care. Reviewed plan with Dr. Bruce Aburto, LAWN SERVICE MANAGER 07/25/2021 09:22 note: ob scan LOLLY: [...] Plan reviewed by Dr. Healy. Petra Lombardi LAWN SERVICE MANAGER 07/16/21 1409 TC to pt with quant = 3238 form yesterday; normal rise from 728 on 07/02; Pt doing well; no problems with Lovenox. PT transferred [facility] to schedule OB US for next week at [facility]. Bere Way RN 07/07/2021 11:47 Spoke with patient regarding XQIR=213. Pain=0. Patient states she will begin prometrium BID and Lovenox today. Patient will repeat BHCg on Wednesday when she is at work. Patient aware RN will call her WednesdayJuly 07 with results and plan. Lucy Dunlap R.N.07/03/2021 12:19 Spoke to patient, will start Prometrium 100 mg BID and Lovenox 40 mg BID today (+Protein S deficiency). [place] to f/u with patient tomorrow once HCG level is back. Patient verbalized understanding. Rosibel Sam RN 07/02/2021 13:54 note: Reviewed positive test. LMP 7/15, conceived on christy cycle/IC. Plan to get HCG drawn today. Start Prometrium 100mg BID. Start Lovenox 40mg BID SQ. Plan per Dr. Healy. RN to communicate. Petra Lombardi LAWN SERVICE MANAGER 07/02/21 1304 Active Problems 16 weeks gestation [...] directed. Peak F (more content not included)... [email or web address] Chief complaint Narrative - Reported 06-19-2021 Note [...] COVID-19 pandemic. Verbal consent obtained for telemedicine visit.Nelsonemreme Longojosephine Huizar IVF Work Phone: History of Present illness Narrative 06-15-2020 Note Date & Type Note Facility 06-15-2020 History of Present illness Narrative IVF Consult:Patient is a 30 year-old who presents for a FET [id number] Hx:06/2020: IOL @ 38 weeks due to [...] contour on HSG - images reviewed from [facility] 08/2018Uterine Cavity Evaluation:Normal uterine cavity on [...] on therapeutic dosing when Genetic Screening Hx: Flux foresight screen negativePartner History:Franklin Ashley 04/09/1989A in past year:2.8 cc125 mil/mL69% jryragnsTUD=273 million(recent IUI sample)Morph from original SA was 2.8% [id number] 310 IVF Work Phone: Evaluation note Note Date & Type Note Facility Evaluation note Diagnosis Sprain of left ankle, unspecified ligament, initial encounter- Primary documented in this encounter [employer] Phone: Evaluation note Note Date & Type Note Facility Evaluation note Diagnosis Third trimester state, incidental First trimester state, incidental Hypothyroidism, unspecified type (CMS/HCC) Hypothyroidism (acquired) (CMS/HCC) Unspecified hypothyroidism H/O blood clots Excessive growth affecting management of in third trimester, single or unspecified fetus documented in this encounter [facility] Hospital Discharge instructions Attachments Note Date & Type Note Facility Hospital Discharge instructions The following attachments cannot be sent through Care Everywhere.Ankle Sprain ([facility]ymraes)Ankle Sprain: Rehab Exercises ([place]ymraes)documented in this encounter [employer] Phone: Summary Purpose Family History No Family [...] section and content) DATE CREATED AUTHOR 02/15/2019 [facility] [place] DATE CREATED AUTHOR AUTHOR'S ORGANIZ ATION 11/12/2019 [facility] DATE CREATED AUTHOR AUTHOR'S ORGANIZ ATION 08/09/2020 [facility] DATE CREATED AUTHOR AUTHOR'S ORGANIZ ATION 07/26/2021 [facility] DATE CREATED AUTHOR AUTHOR'S ORGANIZ ATION 01/21/2023 [facility] DATE CREATED AUTHOR AUTHOR'S ORGANIZ ATION 03/06/2023 [facility] DATE CREATED AUTHOR AUTHOR'S ORGANIZ ATION 07/12/2023 [facility] DATE CREATED AUTHOR AUTHOR'S ORGANIZ ATION 10/04/2023 [facility] DATE CREATED AUTHOR AUTHOR'S ORGANIZ ATION 01/15/2024 [facility] DATE CREATED AUTHOR AUTHOR'S ORGANIZ ATION 01/24/2024 [facility] dical Specialists EPIC REASON FOR VISIT (unrecogniz ed section and content) Reason Comments Ankle Pain Rolled ankle during morning run. Swelling to lateral ankle. 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 Reason Comments Routine Visit Care Teams (unrecognized sec tion and content) Construction Supervisor Relationship Specialty Start Date End Date Evelyn Perez [address] [place] [address] PCP - General Pediatrics 09/22/22 Construction Supervisor Relationship Specialty Start Date End Date Jesse Regan MD [address] [place] [address] PCP - General Family Medicine 11/30/23 FOR [...] BE BASED ON THE PRIMARY CLINICAL RECORDS. [facility] [employer] [facility]. provides no warranty or guarantee of the accuracy or completeness of information in this document.
[2024-01-27 13:05] VITALS: BP 105/62; PULSE 85
== END 2024-01-27 13:27 | disposition home or self-care (01) ==
LOC: FBCO 07:05 → FBC 13:00
PROVIDERS: Visit Provider Obstetrics & Gynecology
DX: E03.9 Hypothyroidism, unspecified (principal); O36.63X0 Maternal care for excessive fetal growth, third trimester, not applicable or unspecified
CPT/HCPCS: 59025

== ENCOUNTER 2024-01-31 07:10 | Outpatient (OUT) | payer OTHER, SELFPAY ==
--- OUTSIDE RECORDS SUMMARY | 2024-01-31 07:12 | XMS_ITS | CCD ---
Author Name Unknown Address [address] [place] [address] Organization [facility] Care Team Providers Care Imcu Specialist Name Role Phone Bruce Mayes Attending Unavailable [...] HER Unavailable Unavaila ble OBGYN IVF RDMS [id number], MG OBGYN Unavailable Unavailable King Guevara [...] Unavailable Ana, Evelyn Husain Primary Care Provider [phone] JAMI ROMERO Attending Unavailable EVELYN PEREZ Primary Care UnavailEVELYN Tomlinson Primary Care UnavailLc Rick Admitting Unavailable Evelyn Perez Primary Care Lc Khanna Attending Unavailable Jesse Regan MD Primary Care Provider Link [facility], Zoya Cheung Attending Zamzamva Evelyn Alfonso MD Primary Care Zamzam vailasánchez Perez MD, Evelyn Gracia Primary Care Zamzam vailable Link [facility], Zoya Cheung Attending Unava DEMARIO Hoang Attending Unavailable BERE STEEL Attending Unavailable BERE STEEL Attending Unavailable DEMARIO RIBEIRO Attending Unavailable DEMARIO RIBEIRO Attending Unavailable ELSA, BERE Attending Unavailable Allergies Allergy Classification Reported Allergen(s) Allergy Type Date of Onset Reaction(s) Facility Progesterone (2 sources) Progesterone; Translations: [Progesterone OIL] Drug Allergy [id number] n 310 IVF Work Phone: (16 sources) Progesterone; Translations: [Progesterone OIL] Drug Allergy [address] [facility] (2 sources) sesame seed extract Drug Allergy [facility] (2 sources) Progesterone Drug Allergy 2 [facility] (1 source) No Known Medication Allergies; Translations: [No Known Medication Allergies] Propensity to adverse reactions to drug (disorder) [facility] Repository Medications Current Medications Medication Drug Class(es) [...] Kelechi Gage MD Start : 14-Aug-2019 Active [id number] 200 actuat albuterol 0.09 mg/actuat metered dose [...] DO Start : 19-Jan-2019 Active BD Disp Coleman 27G X 1/2 (19 sources) Start: 10-03-2019 BD Disp Needle s 27G X 1/2 USE DIRECTED. Quantity: 2 Refills: 2 Shahla Healy MD Start : 03-Oct-2019 Active chorionic gonadotropin 54133 unt/ml injectable solution (19 sources) Gonadotropin Start: 10-03-2019 Chorionic Gonadotropin 46470 UNIT Intramuscular Solution Reconstituted USE DIRECTED. Quantity: [...] Start : 25-Dec-2019 Active Peak Flow Meter [place] Rang Device (3 sources) Start: 01-23-2020 Peak Flow Mete r [place] Rang Device USE DIRECTED. Quantity: 1 Refills: [...] refills. Continue with anticoagulation as prescribed by [employer], patient is currently 30 weeks gestation. Follow-up [...] embolism Historical No qualifying data Procedure/Surgical History [place] Teeth Removal (2005) IVF (11/15/2018) Medications Dulera [...] Link Zoya PERKINS 01/10/24 12:40 EST Normal [facility] Phone Note - Heme Onc-medica tion questionon 07-12-2023 Phone Note - Heme Onc-medication question Phone Call Information: Patient Demographics: Name: KIARA ASHLEY Date: 1990 Address: [address] [place] [address] Date and Time: 12-Jul-2023 09:31 Caller Information: call from Call From: patient Caller Name: Kiara Primary Phone Number: [phone] Reason for Call: Reason for Callmedication question [...] asked for script to be sent to [facility]. Script sent. Pt had no further questions [...] 09:57 by Harmony Ross (N MGR) Normal [facility] XR ANKLE LEFT (MIN 3 VIEWS)o n [...] Dario William MD 02/27/23 Final result Normal [facility] 1. No acute osseous abnormality involving the left ankle. [facility] EXAMINATION: THREE XRAY VIEWS OF THE LEFT ANKLE 02/27/2023 11:46 am COMPARISON: None. HISTORY: ORDERING SYSTEM PROVIDED HISTORY: pain, swelling TECHNOLOGIST PROVIDED HISTORY: pain, swelling FINDINGS: The bone mineralization is within normal limits. The ankle mortise is stable. No acute fractures or dislocations are seen. There is no soft tissue swelling. [facility] Dario William MD - 02/27/2023 [...] acute osseous abnormality involving the left ankle. [employer] Phone: Radiology Study observation (narrative) [employer] Phone: XR ANKLE LEFT (MIN 3 VIEWS)O rdered By: Dario Stewart on 02-27-2023 [facility] [employer] Phone: PAP ACOG PANEL 2: 30 to 65on 01-19-2023 . . Normal [facility] Comment on above: Result Comment: Perf ormed at: WB Performed By: #### [id number] #### [facility] [address] [address] [address] Claire Mayes Age Gdln ACOG Testing 30-65 Normal [facility] Comment on above: Performed By: #### 4 [id number] #### [facility] [address] [address] [address] Claire Mayes DIAGNOSIS: Comment Normal [facility] Comment on above: Result Comment: NEGA TIVE FOR INTRAEPITHELIAL LESION OR MALIGNANCY. Performed at: WB Performed By: #### [id number] #### [facility] [address] [address] [address] Claire Mayes HPV Aptima Negative Normal Negative [facility] Comment on above: Result Comment: This nucleic acid amplification test detects fourteen high-risk HPV types (16,18,31,33,35,39,45,51,52,56,58,59,66,68) without differentiation. Performed at: =G Performed By: #### [id number] #### [facility] [address] [address] [address] Claire Mayes HPV Genotype Reflex Comment Normal [facility] Comment on above: Result Comment: Crit eria not met, HPV Genotype not performed. Performed at: WB Performed By: #### [id number] #### [facility] [address] [address] [address] Claire Mayes Methodology: Comment Normal [facility] Comment on above: Result Comment: This liquid based ThinPrep(R) pap test was screened with the use of an image guided system. Performed at: WB Performed By: #### [id number] #### [facility] [address] [place] [address] Dr. Claire Mayes Note: Comment Normal [facility] Comment on above: Result Comment: The Pap smear is a screening test designed to aid in the detection of premalignant and malignant conditions of the uterine cervix. It is not a diagnostic procedure and should not be used as the sole means of detecting cervical cancer. Both false-positive and false-negative reports do occur. . Performed at: WB Performed By: #### [id number] #### [facility] [address] [place] [address] Dr. Claire Mayes Performed by: Comment Normal [facility] Comment on above: Result Comment: Sherlyn Wright, Family Practice Medical Doctor (ASCP) Performed at: WB Performed By: #### [id number] #### [facility] [address] [place] [address] Dr. Claire Mayes Specimen adequacy: Comment Normal [facility] Comment on above: Result Comment: Sati sfactory for evaluation. No endocervical component is identified. Performed at: WB Performed By: #### [id number] #### [facility] [address] [place] [address] Dr. Claire Mayes CBC with Diffon 09-22-2022 Abs. Basophil 0.03 k/uL Normal 0.00-0.20 [facility] Comment on above: Performed By: #### L BJ BUCK, CP #### [facility] [address] [place] [address] Tariff Inspector: Jesse Curry MD Abs.Imm.Granulocy te 0.04 k/uL Normal 0.00-0.30 [facility] Comment on above: Performed By: #### L IP CDP, CP #### [facility] [address] [place], [place] [id number] Tariff Inspector: Jesse Curry MD Abs.Neutrophil (Seg) 12.54 k/uL High 1.50-8.10 [facility] Comment on above: Performed By: #### L IP, CDP, CP #### [address] [place], [facility]83 Tariff Inspector: Jesse Curry MD Basophils/100 WBC (Bld) 0 % Normal 0-2 [facility] Comment on above: Performed By: #### L IP, CDP, CP #### [address] [place], [place] [address] Tariff Inspector: Jesse Curry MD Eosinophils (Bld) [#/Vol] 0.16 10*3/uL Normal 0.00-0.44 [facility] Comment on above: Performed By: #### L IP, CDP, CP #### [address] [place] [id number] Tariff Inspector: Jesse Curry MD Eosinophils/100 WBC (Bld) 1 % Normal 1-4 [facility] Comment on above: Performed By: #### L CIELO CDP, CP #### [address] [place], [facility]83 Tariff Inspector: Jesse Curry MD Erythrocyte distribution width (RBC) [Ratio] 13.6 % Normal 11.8-14.4 [facility] Comment on above: Performed By: #### L IP CDP, CP #### [address] [place], [facility]83 Tariff Inspector: Jesse Curry MD Hematocrit (Bld) [Volume fraction] 46.4 % Normal 36.3-47.1 [facility] Comment on above: Performed By: #### L IP, CDP, CP #### [address] [place] [address] Tariff Inspector: Jesse Curry MD Hemoglobin (Bld) [Mass/Vol] 15.6 g/dL High 11.9-15.1 [facility] Comment on above: Performed By: #### L IP, CDP, CP #### [facility] [address] [place], [place] [address] Tariff Inspector: Jesse Curry MD Immature granulocytes/100 WBC (Bld) 0 % Normal 0 [facility] Comment on above: Performed By: #### L IP, CDP, CP #### [facility] [address] [place], [place] [address] Tariff Inspector: Jesse Curry MD Lymphocytes (Bld) [#/Vol] 0.98 10*3/uL Low 1.10-3.70 [facility] Comment on above: Performed By: #### L IP, CDP, CP #### [address] [place], [facility]83 Tariff Inspector: Jesse Curry MD Lymphocytes/100 WBC (Bld) 7 % Low 24-43 [facility] Comment on above: Performed By: #### L IP, CDP, CP #### [address] [place], [facility]83 Tariff Inspector: Jesse Curry MD MCH (RBC) [Entitic mass] 30.4 pg Normal 25.2-33.5 [facility] Comment on above: Performed By: #### L IP CDP, CP #### [address] [place], [place] [address] Tariff Inspector: Jesse Curry MD MCHC (RBC) [Mass/Vol] 33.6 g/dL Normal 28.4-34.8 [facility] Comment on above: Performed By: #### L IP, CDP, CP #### [address] [place], [place] [id number] Tariff Inspector: Jesse Curry MD MCV (RBC) [Entitic vol] 90.3 fL Normal 82.6-102.9 [facility] Comment on above: Performed By: #### L IP, CDP, CP #### [facility] [address] [place] [address] Tariff Inspector: Jesse Curry MD Monocytes (Bld) [#/Vol] 0.58 10*3/uL Normal 0.10-1.20 [facility] Comment on above: Performed By: #### L IP, CDP, CP #### [address] [place], [facility]83 Tariff Inspector: Jesse Curry MD Monocytes/100 WBC (Bld) 4 % Normal 3-12 [facility] Comment on above: Performed By: #### L IP, CDP, CP #### [address] [place], [place] [address] Tariff Inspector: Jesse Curry MD Neutrophil (Seg) 88 % High 36-65 [facility] Comment on above: Performed By: #### L IP, CDP, CP #### [address] [place], [facility]83 Tariff Inspector: Jesse Curry MD NRBC Automated 0.0 per 100 WBC Normal 0.0 [facility] Comment on above: Performed By: #### L IP, CDP, CP #### [address] [place], [facility]83 Tariff Inspector: Jesse Curry MD Platelet mean volume (Bld) [Entitic vol] 9.9 fL Normal 8.1-13.5 [facility] Comment on above: Performed By: #### L IP, CDP, CP #### [address] [place], [facility]83 Tariff Inspector: Jesse Curry MD Platelets (Bld) [#/Vol] 299 10*3/uL Normal 138-453 [facility] Comment on above: Performed By: #### L IP, CDP, CP #### [address] [place], [facility]83 Tariff Inspector: Jesse Curry MD RBC (Bld) [#/Vol] 5.14 10*6/uL High 3.95-5.11 [facility] Comment on above: Performed By: #### L IP, CDP, CP #### [facility] [address] [place], [place] [id number] Tariff Inspector: Jesse Curry MD WBC (Bld) [#/Vol] 14.3 10*3/uL High 3.5-11.3 [facility] Comment on above: Performed By: #### L IP, BJ, CP #### [facility] [address] [place], [place] [phone] Tariff Inspector: Jesse Curry MD CT ABDOMEN PELVIS [...] A Maldonado DO 09/22/22 Final result Normal [facility] Comp Metabolic Profon 2021 Albumin [Mass/Vol] 4.7 g/dL Normal 3.5-5.2 [facility] Comment on above: Performed By: #### L IP, CDP, CP #### [facility] [address] [place] [address] [place] [address] Tariff Inspector: Jesse Curry MD Albumin/Glob Ratio 2.0 Normal 1.0-2.5 [facility] Comment on above: Performed By: #### L IP, CDP, CP #### [facility] [address] [place] [address] Dr. [place], [place] [id number] Tariff Inspector: Jesse Curry MD Alkaline Phos 77 U/L Normal 35-104 [facility] Comment on above: Performed By: #### L IP, CDP, CP #### [address] [place], [place] [id number] Tariff Inspector: Jesse Curry MD ALT [Catalytic activity/Vol] 10 U/L Normal 5-33 [facility] Comment on above: Performed By: #### L IP, CDP, CP #### [facility] [address] [place], [place] [id number] Tariff Inspector: Jesse Curry MD Anion gap [Moles/Vol] 12 mmol/L Normal 9-17 [facility] Comment on above: Performed By: #### L IP, CDP, CP #### [facility] [address] [place], [place] [id number] Tariff Inspector: Jesse Curry MD AST [Catalytic activity/Vol] 14 U/L Normal <32 [facility] Comment on above: Performed By: #### L IP, CDP, CP #### [facility] [address] [place], [place] [id number] Tariff Inspector: Jesse Curry MD Bilirubin [Mass/Vol] 0.6 mg/dL Normal 0.3-1.2 [facility] Comment on above: Performed By: #### L IP, CDP, CP #### [facility] [address] [place], [place] [id number] Tariff Inspector: Jesse Curry MD BUN/CRE Ratio 31 High 9-20 [facility] Comment on above: Performed By: #### L IP, CDP, CP #### [address] [place], [place] [id number] Tariff Inspector: Jesse Curry MD Calcium [Mass/Vol] 9.8 mg/dL Normal 8.6-10.4 [facility] Comment on above: Performed By: #### L IP, CDP, CP #### [address] [place], [place] [id number] Tariff Inspector: Jesse Curry MD Chloride [Moles/Vol] 104 mmol/L Normal 98-107 [facility] Comment on above: Performed By: #### L IP, CDP, CP #### [facility] [address] [place] [address] Dr. [place], [place] [id number] Tariff Inspector: Jesse Curry MD CO2 [Moles/Vol] 22 mmol/L Normal 20-31 [facility] Comment on above: Performed By: #### L IP, CDP, CP #### [facility] [address] [place] [address] Dr[place], [place] [id number] Tariff Inspector: Jesse Curry MD Creatinine [Mass/Vol] 0.85 mg/dL Normal 0.50-0.90 [facility] Comment on above: Performed By: #### L IP, CDP, CP #### [facility] [address] [place] [address] [place] [address] Tariff Inspector: Jesse Curry MD GFR/1.73 sq M.predicted among non-blacks MDRD (S/P/Bld) [Vol rate/Area] mL/min/{1.73_m2} Normal >60 [facility] Comment on above: Result Comment: [...] By: #### L IP CDP, CP #### [address] [place] [address] Tariff Inspector: Jesse Curry MD Glucose [Mass/Vol] 109 mg/dL High 70-99 [facility] Comment on above: Performed By: #### L IP CDP, CP #### [address] [place] [address] Tariff Inspector: Jesse Curry MD Potassium [Moles/Vol] 4.0 mmol/L Normal 3.7-5.3 [facility] Comment on above: Performed By: #### L IP CDP, CP #### [address] [place] [address] Tariff Inspector: Jesse Curry MD Protein [Mass/Vol] 7.1 g/dL Normal 6.4-8.3 [facility] Comment on above: Performed By: #### L IP, CDP, CP #### [address] [place] [address] Tariff Inspector: Jesse Curry MD Sodium [Moles/Vol] 138 mmol/L Normal 135-144 [facility] Comment on above: Performed By: #### L IP, CDP, CP #### [facility] [address] [place] [address] Tariff Inspector: Jesse Curry MD Urea nitrogen [Mass/Vol] 26 mg/dL High 6-20 [facility] Comment on above: Performed By: #### L BJ BUCK, CP #### [facility] [address] [place] [address] Tariff Inspector: Jesse Curry MD HCG, ,Urineon 09-22 Beta HCG ( test) Ql (U) Negative Normal NEG [facility] Comment on above: Result Comment: Spec imens with hCG levels near the threshold of the test (25 mIU/mL) may give a negative or indeterminate result. In such cases, another test should be performed with a new specimen in 48-72 hours. If early is suspected clinically in this setting, correlation with quantitative serum b-hCG level is suggested. [facility] has confirmed the use of plasma for this test. This has not been cleared or approved by the U.S. Food and Drug Administration. The FDA has determined that such clearance is not necessary. Performed By: #### U HCG #### [facility] [address] [place] [address] Tariff Inspector: Jesse Curry MD Lactic Acidon 5 Lactate [Moles/Vol] 1.8 mmol/L Normal 0.5-2.2 [facility] Comment on above: Performed By: #### L ACTIC #### [facility] [address] [place] [address] Tariff Inspector: Jesse Curry MD Lipaseon 09-22-2022 Lipase [Catalytic activity/Vol] 39 U/L Normal 13-60 [facility] Comment on above: Performed By: #### L BJ BUCK, CP #### [facility] [address] [place] [address] Tariff Inspector: Jesse Curry MD UA w/Reflex Cultureon 2021 Bilirubin, SemiQt,Ur Negative Normal NEG [facility] Comment on above: Performed By: #### U MICAO, UAX #### [facility] [address] [place], [place] [id number] Tariff Inspector: Jesse Curry MD Blood, Urine Negative Normal NEG [facility] Comment on above: Performed By: #### U MICAO, UAX #### [facility] [address] [place], [place] [phone] Tariff Inspector: Jesse Curry MD Clarity (U) Clear Normal CLEAR [facility] Comment on above: Performed By: #### U MICAO, UAX #### [address] [place], [place] [id number] Tariff Inspector: Jesse Curry MD Color (U) Yellow Normal YEL [facility] Comment on above: Performed By: #### U MICAO, UAX #### [facility] [address] [place] [address] Dr. [place], [place] [id number] Tariff Inspector: Jesse Curry MD Glucose Ql (U) Negative Normal NEG [facility] Comment on above: Performed By: #### U MICAO, UAX #### [address] [place], [place] [id number] Tariff Inspector: Jesse Curry MD Ketones Ql (U) Negative Normal NEG [facility] Comment on above: Performed By: #### U MICAO, UAX #### [facility] [address] [place] [address] Dr. [place], [place] [id number] Tariff Inspector: Jesse Curry MD Leukocyte esterase Test strip Ql (U) Negative Normal NEG [facility] Comment on above: Performed By: #### U MICAO, UAX #### [address] [place], [place] [id number] Tariff Inspector: Jesse Curry MD Nitrite,Ur Negative Normal NEG [facility] Comment on above: Performed By: #### U MICAO, UAX #### [facility] [address] [place], [place] [id number] Tariff Inspector: Jesse Curry MD PH,Ur 8.0 Normal 5.0-9.0 [facility] Comment on above: Performed By: #### U MICAO, UAX #### [facility] [address] [place], [place] [phone] Tariff Inspector: Jesse Curry MD Protein Ql (U) Negative Normal NEG [facility] Comment on above: Performed By: #### U MICAO, UAX #### [facility] [address] [place], [place] [id number] Tariff Inspector: Jesse Curry MD Spec. [place],Ur 1.020 Normal 1.010-1.020 [facility] Comment on above: Performed By: #### U MICAO, UAX #### [facility] [address] [place] [address] Dr. [place], [place] [id number] Tariff Inspector: Jesse Curry MD Urobilinogen,Ur Normal Normal NORM [facility] Comment on above: Performed By: #### U MICAO, UAX #### [address] [place], [place] [phone] Tariff Inspector: Jesse Curry MD Urinalysis,Microon 2 Bacteria TRACE Abnormal NONE [facility] Comment on above: Performed By: #### U MICAO, UAX #### [facility] [address] [place], [place] [id number] Tariff Inspector: Jesse Curry MD Epithelial cells LM Ql (Urine sed) 0 TO 2 Normal 0-25 [facility] Comment on above: Performed By: #### U MICAO, UAX #### [facility] [address] [place], [place] [id number] Tariff Inspector: Jesse Curry MD Urine RBC's None Normal 0-2 [facility] Comment on above: Performed By: #### U DARIO UAX #### [facility] [address] [place] [address] Tariff Inspector: Jesse Curry MD Urine WBC's 0 TO 2 Normal 0-5 [facility] Comment on above: Performed By: #### U DARIO UAX #### [facility] [address] [place] [address] Tariff Inspector: Jesse Curry MD CBC AUTO DIFFon 02-20-2022 BASO # 0.1 103/ul Normal 0.0-0.1 [facility] Comment on above: Performed By: #### C BC #### [facility] [address] [place] [address] Dr. Claire Mayes Basophils/100 WBC (Bld) 0.8 % Normal 0.2-2.0 [facility] Comment on above: Performed By: #### C BC #### [facility] [address] [place] [address] Dr. Claire Mayes EO # 0.2 103/ul Normal 0.0-0.7 [facility] Comment on above: Performed By: #### C BC #### [facility] [address] [place] [address] Dr. Claire Mayes Eosinophils/100 WBC (Bld) 0.9 % Normal 0.9-7.0 [facility] Comment on above: Performed By: #### C BC #### [facility] [address] [place] [address] Dr. Claire Mayes Erythrocyte distribution width (RBC) [Ratio] 15.0 % Normal 11.0-15.0 [facility] Comment on above: Performed By: #### C BC #### [facility] [address] [place] [address] Dr. Claire Mayes Hematocrit (Bld) [Volume fraction] 31.3 % Critically low 36.0-48.0 [facility] Comment on above: Performed By: #### C BC #### [facility] [address] [address] [address] Claire Mayes Hemoglobin (Bld) [Mass/Vol] 10.3 g/dL Critically low 12.0-16.0 [facility] Comment on above: Performed By: #### C BC #### [facility] [address] [address] [address] Claire Mayes IG # 0.21 10e3/ul Critically high 0.00-0.03 [facility] Comment on above: Performed By: #### C BC #### [facility] [address] [address] [address] Claire Mayes IG % 1.3 % Critically high 0.0-0.5 [facility] Comment on above: Performed By: #### C BC #### [facility] [address] [place] [address] Dr. Claire Mayes LYMPH # 2.1 103/ul Normal 1.2-3.8 [facility] Comment on above: Performed By: #### C BC #### [facility] [address] [place] [address] Dr. Claire Mayes Lymphocytes/100 WBC (Bld) 12.6 % Critically low 20.5-60.0 [facility] Comment on above: Performed By: #### C BC #### [facility] [address] [place] [address] Dr. Claire Mayes MANUAL DIFF REQ NO Normal [facility] Comment on above: Performed By: #### C BC #### [facility] [address] [address] [address] Claire Mayes MCH (RBC) [Entitic mass] 29.8 pg Normal 26.7-34.0 [facility] Comment on above: Performed By: #### C BC #### [facility] [address] [place] [address] Dr. Claire Mayes MCHC (RBC) [Mass/Vol] 32.9 g/dL Normal 29.9-35.2 [facility] Comment on above: Performed By: #### C BC #### [facility] [address] [place] [address] Dr. Claire Mayes MCV (RBC) [Entitic vol] 90.5 fL Normal 81.0-99.0 [facility] Comment on above: Performed By: #### C BC #### [facility] [address] [place] [address] Dr. Claire Mayes MONO # 0.8 103/ul Normal 0.3-0.8 [facility] Comment on above: Performed By: #### C BC #### [facility] [address] [place] [address] Dr. Claire Mayes Monocytes/100 WBC (Bld) 5.1 % Normal 1.7-12.0 [facility] Comment on above: Performed By: #### C BC #### [facility] [address] [place] [address] Dr. Claire Mayes NEUT # 13.2 103/ul Critically high 1.4-6.5 [facility] Comment on above: Performed By: #### C BC #### [facility] [address] [place] [address] Dr. Claire Mayes Neutrophils/100 WBC (Bld) 79.3 % Critically high 43.0-75.0 [facility] Comment on above: Performed By: #### C BC #### [facility] [address] [place] [address] Dr. Claire Mayes Platelet mean volume (Bld) [Entitic vol] 10.4 fL Normal 9.5-13.5 [facility] Comment on above: Performed By: #### C BC #### [facility] [address] [place] [address] Dr. Claire Mayes PLT 233 103/ul Normal 150-450 [facility] Comment on above: Performed By: #### C BC #### [facility] [address] [place] [address] Dr. Claire Mayes RBC 3.46 106/ul Critically low 4.20-5.40 [facility] Comment on above: Performed By: #### C BC #### [facility] [address] [place] [address] Dr. Claire Mayes WBC 16.6 103/ul Critically high 4.0-11.0 [facility] Comment on above: Performed By: #### C BC #### [facility] [address] [place] [address] Dr. Claire Mayes CBC AUTO DIFFon 02-18-2022 BASO # 0.1 103/ul Normal 0.0-0.1 [facility] Comment on above: Performed By: #### C BC #### [facility] [address] [place] [address] Dr. Claire Mayes Basophils/100 WBC (Bld) 0.7 % Normal 0.2-2.0 [facility] Comment on above: Performed By: #### C BC #### [facility] [address] [place] [address] Dr. Claire Mayes EO # 0.2 103/ul Normal 0.0-0.7 [facility] Comment on above: Performed By: #### C BC #### [facility] [address] [place] [address] Dr. Claire Mayes Eosinophils/100 WBC (Bld) 1.2 % Normal 0.9-7.0 [facility] Comment on above: Performed By: #### C BC #### [facility] [address] [place] [address] Dr. Claire Mayes Erythrocyte distribution width (RBC) [Ratio] 15.0 % Normal 11.0-15.0 [facility] Comment on above: Performed By: #### C BC #### [facility] [address] [place] [address] Dr. Claire Mayes Hematocrit (Bld) [Volume fraction] 35.1 % Critically low 36.0-48.0 [facility] Comment on above: Performed By: #### C BC #### [facility] [address] [place] [address] Dr. Claire Mayes Hemoglobin (Bld) [Mass/Vol] 11.8 g/dL Critically low 12.0-16.0 [facility] Comment on above: Performed By: #### C BC #### [facility] [address] [place] [address] Dr. Claire Mayes IG # 0.30 10e3/ul Critically high 0.00-0.03 [facility] Comment on above: Performed By: #### C BC #### [facility] [address] [place] [address] Dr. Claire Mayes IG % 1.9 % Critically high 0.0-0.5 [facility] Comment on above: Performed By: #### C BC #### [facility] [address] [place] [address] Dr. Claire Mayes LYMPH # 2.9 103/ul Normal 1.2-3.8 [facility] Comment on above: Performed By: #### C BC #### [facility] [address] [place] [address] Dr. Claire Mayes Lymphocytes/100 WBC (Bld) 18.5 % Critically low 20.5-60.0 [facility] Comment on above: Performed By: #### C BC #### [facility] [address] [place] [address] Dr. Claire Mayes MANUAL DIFF REQ NO Normal [facility] Comment on above: Performed By: #### C BC #### [facility] [address] [place] [address] Dr. Claire Mayes MCH (RBC) [Entitic mass] 30.2 pg Normal 26.7-34.0 [facility] Comment on above: Performed By: #### C BC #### [facility] [address] [place] [address] Dr. Claire Mayes MCHC (RBC) [Mass/Vol] 33.6 g/dL Normal 29.9-35.2 [facility] Comment on above: Performed By: #### C BC #### [facility] [address] [place] [address] Dr. Claire Mayes MCV (RBC) [Entitic vol] 89.8 fL Normal 81.0-99.0 [facility] Comment on above: Performed By: #### C BC #### [facility] [address] [place] [address] Dr. Claire Mayes MONO # 0.7 103/ul Normal 0.3-0.8 [facility] Comment on above: Performed By: #### C BC #### [facility] [address] [place] [address] Dr. Claire Mayes Monocytes/100 WBC (Bld) 4.7 % Normal 1.7-12.0 [facility] Comment on above: Performed By: #### C BC #### [facility] [address] [place] [address] Dr. Claire Mayes NEUT # 11.3 103/ul Critically high 1.4-6.5 [facility] Comment on above: Performed By: #### C BC #### [facility] [address] [place] [address] Dr. Claire Mayes Neutrophils/100 WBC (Bld) 73.0 % Normal 43.0-75.0 [facility] Comment on above: Performed By: #### C BC #### [facility] [address] [place] [address] Dr. Claire Mayes Platelet mean volume (Bld) [Entitic vol] 10.8 fL Normal 9.5-13.5 [facility] Comment on above: Performed By: #### C BC #### [facility] [address] [place] [address] Dr. Claire Mayes PLT 233 103/ul Normal 150-450 [facility] Comment on above: Performed By: #### C BC #### [facility] [address] [place] [address] Dr. Claire Mayes RBC 3.91 106/ul Critically low 4.20-5.40 [facility] Comment on above: Performed By: #### C BC #### [facility] [address] [place] [address] Dr. Claire Mayes WBC 15.5 103/ul Critically high 4.0-11.0 [facility] Comment on above: Performed By: #### C BC #### [facility] [address] [place] [address] Dr. Claire Mayes Covid-19 PCR ([facility])on SARS-CoV-2 (COVID-19) RNA FERDINAND+probe Ql (Unsp spec) Not detected Normal NOT DETECTED [facility] Comment on above: Result Comment: When [...] for this test is supported by the [employer] [place] of Health and Human Service's declaration that [...] used). Performed By: #### C VDTBH #### [facility] [address] [place] [address] Dr. Claire Mayes DRUG SCREEN RAPID (URINE)on 02-18-2022 AMP Negative Normal NEGATIVE [facility] Comment on above: Performed By: #### D RUGRPD #### [facility] [address] [place] [address] Dr. Claire Mayes BAR Negative Normal NEGATIVE [facility] Comment on above: Performed By: #### D RUGRPD #### [facility] [address] [place] [address] Dr. Claire Mayes BUP Negative Normal NEGATIVE [facility] Comment on above: Performed By: #### D RUGRPD #### [facility] [address] [place] [address] Dr. Claire Mayes BZO Negative Normal NEGATIVE [facility] Comment on above: Performed By: #### D RUGRPD #### [facility] [address] [place] [address] Dr. Claire Mayes KIT Negative Normal NEGATIVE [facility] Comment on above: Performed By: #### D RUGRPD #### [facility] [address] [place] [address] Dr. Claire Mayes CUT-OFFS SEE BELOW Normal [facility] Comment on above: Result Comment: AMP [...] ng/mL Performed By: #### D RUGRPD #### [facility] [address] [place] [address] Dr. Claire Mayes DRUG CUT HEADER DRUG CLASS TEST SYST EM CUT-OFF CONCENTRATIONS ARE FOLLOWS: Normal [facility] Comment on above: Performed By: #### D RUGRPD #### [facility] [address] [place] [address] Dr. Claire Mayes mAMP Negative Normal NEGATIVE [facility] Comment on above: Performed By: #### D RUGRPD #### [facility] [address] [place] [address] Dr. Claire Mayes MTD Negative Normal NEGATIVE [facility] Comment on above: Performed By: #### D RUGRPD #### [facility] [address] [place] [address] Dr. Claire Mayes OPI Negative Normal NEGATIVE [facility] Comment on above: Performed By: #### D RUGRPD #### [facility] [address] [place] [address] Dr. Claire Mayes OXY Negative Normal NEGATIVE [facility] Comment on above: Performed By: #### D RUGRPD #### [facility] [address] [place] [address] Dr. Claire Mayes PCP Negative Normal NEGATIVE [facility] Comment on above: Performed By: #### D RUGRPD #### [facility] [address] [address] [address] Claire Mayes PPX Negative Normal NEGATIVE [facility] Comment on above: Performed By: #### D RUGRPD #### [facility] [address] [place] [address] Dr. Claire Mayes TCA Negative Normal NEGATIVE [facility] Comment on above: Performed By: #### D RUGRPD #### [facility] [address] [address] [address] Claire Mayes THC Negative Normal NEGATIVE [facility] Comment on above: Performed By: #### D RUGRPD #### [facility] [address] [place] [address] Dr. Claire Mayes TYPE AND SCREENon 02-18-2022 TYPE AND SCREEN Negative Normal [facility] Comment on above: Performed By: #### T NS #### [facility] [address] [place] [address] Dr. Claire Mayes US PREG BIOPHY W [...] JESSE THOMAS Date: 2022-02-17 14:27 Normal [facility] US PREG BIOPHY W NON STRESSo [...] by: BLU FELIPE Date: 2022-02-10 16:40 Normal [facility] GROUP B STREP CULTUREon 01-14 S. agalactiae Ag Ql (Unsp spec) Culture Observations: Beta Strep called to Belgica Lange at office 02/04/22 @[address] [place] [address] Isolate 1 Streptococcus agalactiae Heavy growth of ORGANISM 1 Streptococcus agalactiae ANTIBIOTIC M.I.C RX STATUS Benzylpenicillin <=0.06 S F Ampicillin <=0.25 S F Cefotaxime <=0.12 S F Ceftriaxone <=0.12 S F Levofloxacin 0.5 S F Erythromycin 2 R F Clindamycin <=0.25 S F Linezolid <=2 S F Vancomycin 0.5 S F Tetracycline >=16 R F Normal [facility] Comment on above: Performed By: #### G BSCX #### [facility] [address] [place] [address] Dr. 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 Verbal consent obtained for telemedicine visit. Guru.mi History of Present IllnessIVF Consult: Patient is [...] contour on HSG - images reviewed from [facility] 08/2018 Uterine Cavity Evaluation: Normal uterine [...] Peak E2 1871--> IM P4--> successful IUP [employer] Hx: LMP: 05/29/21 Menstrual cycles: Have been fairly regular for the past 3 months; 30-35 days Pap smear: 2018, up to date Mammogram: None PMH/Surg Hx/Social Hx: See below Hx of Clotting disorders: Yes- Protein S deficiency Currently on Lovenox 40 mg daily Was on Lovenox 60 mg daily prior to Needs to be on therapeutic dosing when Genetic Screening Hx: [employer] screen negative Partner History: Franklin Ashley 04/09/1990 SA in past year: 2.8 cc 125 mil/mL 69% motility SKG=696 million (recent IUI sample) Morph from original SA was 2.8% Active Problems Problems 16 weeks gest (more content not included)... Normal [employer] CBC AND DIFFERENTIALon 08-06 % AUTOMATED IMMATURE GRAN 0.3 % Normal 0.0 - 0.9 [facility] Comment on above: Result Comment: Graciela ture Granulocyte Count (IG) includes promyelocytes, myelocytes and metamyelocytes but does not include bands. Percent differential counts (%) should be interpreted in the context of the absolute cell counts (cells/L). Performed By: #### C BCDF #### [address] [place] [address] Basophils (Bld) [#/Vol] 0.09 10*3/uL Normal 0.00 - 0.10 [facility] Comment on above: Performed By: #### C BCDF #### [address] [place] [address] Basophils/100 WBC (Bld) 0.9 % Normal 0.0 - 2.0 [facility] Comment on above: Performed By: #### C BCDF #### [address] [place] [address] Eosinophils (Bld) [#/Vol] 0.23 10*3/uL Normal 0.00 - 0.70 [facility] Comment on above: Performed By: #### C BCDF #### [address] [place] [address] Eosinophils/100 WBC (Bld) 2.4 % Normal 0.0 - 6.0 [facility] Comment on above: Performed By: #### C BCDF #### [address] [place] [address] Erythrocyte distribution width (RBC) [Ratio] 14.3 % Normal 11.5 - 14.5 [facility] Comment on above: Performed By: #### C BCDF #### [address] [place] [address] Hematocrit (Bld) [Volume fraction] 40.4 % Normal 36.0 - 46.0 [facility] Comment on above: Performed By: #### C BCDF #### [address] [place] [address] Hemoglobin (Bld) [Mass/Vol] 12.9 g/dL Normal 12.0 - 16.0 [facility] Comment on above: Performed By: #### C BCDF #### [address] [place] [address] Lymphocytes (Bld) [#/Vol] 2.44 10*3/uL Normal 1.20 - 4.80 [facility] Comment on above: Performed By: #### C BCDF #### [address] [place] [address] Lymphocytes/100 WBC (Bld) 25.7 % Normal 13.0 - 44.0 [facility] Comment on above: Performed By: #### C BCDF #### [address] [place] [address] MCHC (RBC) [Mass/Vol] 31.9 g/dL Low 32.0 - 36.0 [facility] Comment on above: Performed By: #### C BCDF #### [address] [place] [address] MCV (RBC) [Entitic vol] 88 fL Normal 80 - 100 [facility] Comment on above: Performed By: #### C BCDF #### [address] [place] [address] Monocytes (Bld) [#/Vol] 0.55 10*3/uL Normal 0.10 - 1.00 [facility] Comment on above: Performed By: #### C BCDF #### [address] [place] [address] Monocytes/100 WBC (Bld) 5.8 % Normal 2.0 - 10.0 [facility] Comment on above: Performed By: #### C BCDF #### [address] [place] [address] Neutrophils (Bld) [#/Vol] 6.15 10*3/uL Normal 1.20 - 7.70 [facility] Comment on above: Performed By: #### C BCDF #### [address] [place] [address] Neutrophils/100 WBC (Bld) 64.9 % Normal 40.0 - 80.0 [facility] Comment on above: Performed By: #### C BCDF #### [address] [place] [address] Platelets (Bld) [#/Vol] 410 10*3/uL Normal 150 - 450 [facility] Comment on above: Performed By: #### C BCDF #### [address] [place] [address] RBC (Bld) [#/Vol] 4.58 x10E12/L Normal 4.00 - 5.20 [facility] Comment on above: Performed By: #### C BCDF #### [address] [place] [address] WBC (Bld) [#/Vol] 9.5 10*3/uL Normal 4.4 - 11.3 [facility] Comment on above: Performed By: #### C BCDF #### [address] [place] [address] HAND PATTERN MARKER - Visiton 08-06-2020 HAND PATTERN MARKER - Visit Chief Complaint The patient is [...] with LMWH and has follow-up with her Home Specialist 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 She has Hematology follow-up today following our [...] Aug 06 2020 2:00PM EST (Author) Normal [employer] Complete Blood Count + Diffe marc 06-27-2020 Basophils/100 WBC (Bld) 0.5 % 0.0 - 2.0 MZ-OCPXX-Uspwt[address] Work Phone: Eosinophils (Bld) [#/Vol] 0.24 {x10E9/L} See Below ZD-FTEOP-Udatq[address] Work Phone: Comment on above: Reference Range: 0.0 0 - 0.70 Eosinophils/100 WBC (Bld) 1.1 % 0.0 - 6.0 CM-BHQDQ-Nuoaw[address] Work Phone: Erythrocyte distribution width (RBC) [Ratio] 15.0 % above high threshold See Below RJ-ZGDQR-Icduw[address] Work Phone: Comment on above: Reference Range: 11. 5 - 14.5 Hematocrit (Bld) [Volume fraction] 30.0 % below low threshold See Below CW-TOFKJ-Nvane[address] Work Phone: Comment on above: Reference Range: 36. 0 - 46.0 Hemoglobin (Bld) [Mass/Vol] 9.8 g/dL below low threshold See Below NU-HSJIS-Rwnte[address] Work Phone: Comment on above: Reference Range: 12. 0 - 16.0 Lymphocytes (Bld) [#/Vol] 2.25 {x10E9/L} See Below VX-PUNZG-Rkwhr wn 2nd Fl Work Phone: Comment on above: Reference Range: 1.2 0 - 4.80 Lymphocytes/100 WBC (Bld) 10.4 % See Below TW-QSIGG-Ndxsd wn 2nd Fl Work Phone: Comment on above: Reference Range: 13. 0 - 44.0 MCHC (RBC) [Mass/Vol] 32.7 g/dL See Below QY-KRVTR-Fdiqk wn 2nd Fl Work Phone: Comment on above: Reference Range: 32. 0 - 36.0 MCV (RBC) [Entitic vol] 91 fL 80 - 100 UB-CDWRQ-Ytbyq wn 2nd Fl Work Phone: Monocytes (Bld) [#/Vol] 0.84 {x10E9/L} See Below MP-WYWXP-Hbked wn 2nd Fl Work Phone: Comment on above: Reference Range: 0.1 0 - 1.00 Monocytes/100 WBC (Bld) 3.9 % 2.0 - 10.0 FN-GNOEC-Ijori wn 2nd Fl Work Phone: Neutrophils/100 WBC (Bld) 82.7 % See Below IR-ABDEW-Wlfqg wn 2nd Fl Work Phone: Comment on above: Reference Range: 40. 0 - 80.0 Platelets (Bld) [#/Vol] 225 {x10E9/L} 150 - 450 PT-MWHSG-Rqslg wn 2nd Fl Work Phone: RBC (Bld) [#/Vol] 3.31 {x10E12/L} below low threshold See Below PU-JFCJU-Ayyuu 2nd Fl Work Phone: Comment on above: Reference Range: 4.0 0 - 5.20 WBC (Bld) [#/Vol] 0.0 {/100_WBC} 0.0-0.0 MG- OBGYN[address] Fl Work Phone: WBC (Bld) [#/Vol] 21.6 {x10E9/L} above high threshold 4.4 - 11.3 WD-HNELF-Sinzv wn 2nd Fl Work Phone: Complete Blood Count + Differential 0.11 {x10E9/L} above high threshold See Below LO-VTCBF-Udwsc[address] Work Phone: Comment on above: Reference Range: 0.0 0 - 0.10 Complete Blood Count + Differential 1.4 % above high threshold 0.0 - 0.9 DN-KBGHY-Krxab[address] Work Phone: Comment on above: Immature Granulocyte Count (IG) includes promyelocytes, myelocytes and metamyelocytes but does not include bands. Percent differential counts (%) should be interpreted in the context of the absolute cell counts (cells/L). Complete Blood Count + Differential 17.85 {x10E9/L} above high threshold See Below NK-WMWVF-Fzjom wn 2nd Fl Work Phone: Comment on above: Reference Range: 1.2 0 - 7.70 Hematologyon 06-26-2020 Hematocrit (Bld) [Volume fraction] 30.5 % below low threshold See Below XO-RGNJF-Dhyjs wn 2nd Fl Work Phone: Comment on above: Reference Range: 36. 0 - 46.0 Hemoglobin (Bld) [Mass/Vol] 10.7 g/dL below low threshold See Below DX-QSPDR-Mpajg wn 2nd Fl Work Phone: Comment on above: Reference Range: 12. 0 - 16.0 MCV (RBC) [Entitic vol] 84 fL 80 - 100 MY-GROVU-Pzzdx wn 2nd Fl Work Phone: Platelets (Bld) [#/Vol] 258 {x10E9/L} 150 - 450 HI-MNSGH-Advzo wn 2nd Fl Work Phone: RBC (Bld) [#/Vol] 3.62 {x10E12/L} below low threshold See Below OP-BDIPT-Hpvax wn 2nd Fl Work Phone: Comment on above: Reference Range: 4.0 0 - 5.20 WBC (Bld) [#/Vol] 0.0 {/100_WBC} 0.0-0.0 MG- OBGYN-Midto wn 2nd Fl Work Phone: WBC (Bld) [#/Vol] 35.7 {x10E9/L} above high threshold 4.4 - 11.3 ON-IUNMK-Lljnf wn 2nd Fl Work Phone: Otheron 06-26-2020 Erythrocyte distribution width (RBC) [Ratio] 14.6 % above high threshold See Below DL-GBDKE-Snzjq wn 2nd Fl Work Phone: Comment on above: Reference Range: 11. 5 - 14.5 MCHC (RBC) [Mass/Vol] 35.1 g/dL See Below LL-FTEZG-Hculj wn 2nd Fl Work Phone: Comment on [...] 3.5 cm, located 1.0 cm from themargin. Ferry Operator sections are submitted in 5 cassettes.AXQ/LMPSummary of Cassettes:Specimen Label SiteA 1 umbilical cord sections 2 membrane rolls 3 placental parenchyma, umbilical cord insertion site 4 placental parenchyma 5 placental parenchyma, lesionaxq/06/26/2020 KV-QOTKK-Iloak[address] Work Phone: Coronavirus 2019 RNA by PCR, Symptomaticon 06-25-2020 Coronavirus 2019 RNA by PCR, Symptomatic NOT DETECTED See Below RB-TWSTO-Afdpz[address] Work Phone: Comment on above: SOURCE: [...] this test method. Fact sheet for providers: www.fda.gov/media/620931/downloadFact sheet for patients: www.fda.gov/media/776067/downloadThis test has received FDA Emergency Use Authorization (EUA) and has been verified by [facility] ([facility]). This test is only authorized for the duration of time that circumstances exist to justify the authorization of the emergency use of in vitro diagnostic tests for the detection of SARS-CoV-2 virus and/or diagnosis of COVID-19 infection under section 564(b)(1) of the Act, 21 U.S.C. 360bbb-3(b)(1), unless the authorization is terminated or revoked sooner. [facility] is certified under CLIA-88 as qualified to perform high complexity testing. Testing is performed in the [facility] laboratories located at [address] [place] [address]. Hematologyon 06-25-2020 ABO group Nom (Bld) A [address] Work Phone: Blood group antibody screen Ql Negative [address] Work Phone: Hematocrit (Bld) [Volume fraction] 34.7 % below low threshold See Below [address] Work Phone: Comment on above: Reference Range: 36. 0 - 46.0 Hemoglobin (Bld) [Mass/Vol] 11.6 g/dL below low threshold See Below [address] Work Phone: Comment on above: Reference Range: 12. 0 - 16.0 MCV (RBC) [Entitic vol] 90 fL 80 - [address] Work Phone: Platelets (Bld) [#/Vol] 268 {x10E9/L} 150 - [address] Work Phone: RBC (Bld) [#/Vol] 3.85 {x10E12/L} below low threshold See Below FN-JJHMS-Uhbbg[address] Work Phone: Comment on above: Reference Range: 4.0 0 - 5.20 Rh immune globulin screen (Bld) [Interp] Positive UI-ERYXH-Nfkmk[address] Work Phone: WBC (Bld) [#/Vol] 0.0 {/100_WBC} 0.0-0.0 MG- OBGYN-[address] Work Phone: WBC (Bld) [#/Vol] 15.5 {x10E9/L} above high threshold 4.4 - 11.3 WS-HMLIA-Ivwku[address] Work Phone: Otheron 06-25-2020 Erythrocyte distribution width (RBC) [Ratio] 14.4 % See Below XQ-IRCZB-Mwjeu[address] Work Phone: Comment on above: Reference Range: 11. 5 - 14.5 MCHC (RBC) [Mass/Vol] 33.4 g/dL See Below GJ-QLLYT-Ypyye[address] Work Phone: Comment on above: Reference Range: 32. 0 - 36.0 SYPHILIS SCREENING WITH REFL EXon 06-25-2020 T. pallidum IgG+IgM IA Ql (S) NONREACTIVE See Below CV-UMMTL-Vyefq[address] Work Phone: Comment on above: SOURCE: Reference Ra nge: NONREACTIVENo significant level of Treponema pallidum antibody detected. Repeat testing in 2 to 4 weeks may be considered if early infection or incubating syphilis infection is suspected. Imm/Pathon 06-07-2020 Bacteria identified Aer cx Nom (Genital specimen) PATIENT: KIARA ASHLEY LOCATION[place] [facility] [place]#: [id number] : 89 AGE: SEX: F ORDERED BY: PARAS GUEVARA: VAGINAL COLLECTED: 06/07/20 09:36ANTIBIOTICS AT [place].: RECEIVED : 06/08/20 07:27SITE: VAGINAL R E S U L T S GROUP B STREP SCREEN PRELIM 06/09/20 08:35 CULTURE IN PROGRESS. TN-WMCYG-IJT [address] [place] Work Phone: Bacteria identified Aer cx Nom (Genital specimen) PATIENT: KIARA ASHLEY LOCATION: [facility] [place] BILL#: [id number] : 89 AGE: SEX: F ORDERED BY: PARAS GUEVARA: VAGINAL COLLECTED: 06/07/20 09:36ANTIBIOTICS AT [place].: RECEIVED : 06/08/20 07:27SITE: VAGINAL R E S U L T S GROUP B STREP SCREEN FINAL 06/10/20 11:54 NEGATIVE FOR GROUP B BETA STREP. IZ-FHGMY-Bsvbj wn 2nd Fl Work Phone: Otheron 06-07-2020 [...] growth-No malformations were identified on a limited survey-[facility] 06/22 The patient is aware [...] signed by: RILEY TREVIÑO 06/07/20 09:33 Normal WF-MYLPU-GHC [address] [place] Work Phone: Comment on above: ORDER REVISED TO A O B FOLLOW UP OR REPEAT SCAN BY RADIOLOGIST; Original Order Number: [id number] CBC AND DIFFERENTIALon 06-10 -2020 % AUTOMATED IMMATURE GRAN 1.9 % High 0.0 - 0.9 [facility] Comment on above: Result Comment: Graciela ture Granulocyte Count (IG) includes promyelocytes, myelocytes and metamyelocytes but does not include bands. Percent differential counts (%) should be interpreted in the context of the absolute cell counts (cells/L). Performed By: #### C BCDF #### [address] [place] [address] Basophils (Bld) [#/Vol] 0.08 10*3/uL Normal 0.00 - 0.10 [facility] Comment on above: Performed By: #### C BCDF #### [address] [place] [address] Basophils/100 WBC (Bld) 0.5 % Normal 0.0 - 2.0 [facility] Comment on above: Performed By: #### C BCDF #### [address] [place] [address] Eosinophils (Bld) [#/Vol] 0.22 10*3/uL Normal 0.00 - 0.70 [facility] Comment on above: Performed By: #### C BCDF #### [address] [place] [address] Eosinophils/100 WBC (Bld) 1.5 % Normal 0.0 - 6.0 [facility] Comment on above: Performed By: #### C BCDF #### [address] [place] [address] Erythrocyte distribution width (RBC) [Ratio] 14.0 % Normal 11.5 - 14.5 [facility] Comment on above: Performed By: #### C BCDF #### [address] [place] [address] Hematocrit (Bld) [Volume fraction] 35.6 % Low 36.0 - 46.0 [facility] Comment on above: Performed By: #### C BCDF #### [address] [place] [address] Hemoglobin (Bld) [Mass/Vol] 11.8 g/dL Low 12.0 - 16.0 [facility] Comment on above: Performed By: #### C BCDF #### [address] [place] [address] Lymphocytes (Bld) [#/Vol] 2.38 10*3/uL Normal 1.20 - 4.80 [facility] Comment on above: Performed By: #### C BCDF #### [address] [place] [address] Lymphocytes/100 WBC (Bld) 16.0 % Normal 13.0 - 44.0 [facility] Comment on above: Performed By: #### C BCDF #### [address] [place] [address] MCHC (RBC) [Mass/Vol] 33.1 g/dL Normal 32.0 - 36.0 [facility] Comment on above: Performed By: #### C BCDF #### [address] [place] [address] MCV (RBC) [Entitic vol] 92 fL Normal 80 - 100 [facility] Comment on above: Performed By: #### C BCDF #### [address] [place] [address] Monocytes (Bld) [#/Vol] 0.74 10*3/uL Normal 0.10 - 1.00 [facility] Comment on above: Performed By: #### C BCDF #### [address] [place] [address] Monocytes/100 WBC (Bld) 5.0 % Normal 2.0 - 10.0 [facility] Comment on above: Performed By: #### C BCDF #### [address] [place] [address] Neutrophils (Bld) [#/Vol] 11.17 10*3/uL High 1.20 - 7.70 [facility] Comment on above: Performed By: #### C BCDF #### [address] [place] [address] Neutrophils/100 WBC (Bld) 75.1 % Normal 40.0 - 80.0 [facility] Comment on above: Performed By: #### C BCDF #### [address] [place] [address] Platelets (Bld) [#/Vol] 285 10*3/uL Normal 150 - 450 [facility] Comment on above: Performed By: #### C BCDF #### [address] [place] [address] RBC (Bld) [#/Vol] 3.89 x10E12/L Low 4.00 - 5.20 [facility] Comment on above: Performed By: #### C BCDF #### [address] [place] [address] WBC (Bld) [#/Vol] 14.9 10*3/uL High 4.4 - 11.3 [facility] Comment on above: Performed By: #### C BCDF #### [address] [place] [address] COMPREHENSIVE PANELon 2019 ALP [Catalytic activity/Vol] 79 U/L Normal 33 - 110 [facility] Comment on above: Performed By: #### C MP #### [address] [place] [address] [place] [id number] [facility] [address] ALT [Catalytic activity/Vol] 7 U/L Normal 7 - 45 [facility] Comment on above: Result Comment: Melida ents treated with Sulfasalazine may generate falsely decreased results for ALT. Performed By: #### C MP #### [address] [place] [address] [facility] [address] [place] [address] AST [Catalytic activity/Vol] 13 U/L Normal 9 - 39 [facility] Comment on above: Performed By: #### C MP #### [address] [place] [address] [place] [address] Bilirubin [Mass/Vol] 0.3 mg/dL Normal 0.0 - 1.2 [facility] Comment on above: Performed By: #### C MP #### [address] [place] [address] [place] [address] Protein [Mass/Vol] 5.9 g/dL Low 6.4 - 8.2 [facility] Comment on above: Performed By: #### C MP #### [address] [place] [address] [place] [address] Anion gap [Moles/Vol] 12 mmol/L Normal 10 - 20 [facility] Comment on above: Performed By: #### C MP #### [address] [place] [address] [place] [address] Chloride [Moles/Vol] 106 mmol/L Normal 98 - 107 [facility] Comment on above: Performed By: #### C MP #### [address] [place] [address] [place] [address] Potassium [Moles/Vol] 3.7 mmol/L Normal 3.5 - 5.3 [facility] Comment on above: Performed By: #### C MP #### [address] [place] [address] [place] [address] Sodium [Moles/Vol] 137 mmol/L Normal 136 - 145 [facility] Comment on above: Performed By: #### C MP #### [address] [place] [address] [place] [address] Calcium [Mass/Vol] 9.2 mg/dL Normal 8.6 - 10.3 [facility] Comment on above: Performed By: #### C MP #### [address] [place] [address] [place] [address] Glucose [Mass/Vol] 95 mg/dL Normal 74 - 99 [facility] Comment on above: Performed By: #### C MP #### [address] [place] [address] [place] [address] Urea nitrogen [Mass/Vol] 7 mg/dL Normal 6 - 23 [facility] Comment on above: Performed By: #### C MP #### [address] [place] [address] [place] [address] Albumin [Mass/Vol] 3.4 g/dL Normal 3.4 - 5.0 [facility] Comment on above: Performed By: #### C MP #### [address] [place] [address] [place] [address] Creatinine [Mass/Vol] 0.70 mg/dL Normal 0.50 - 1.05 [facility] Comment on above: Performed By: #### C MP #### [address] [place] [address] [place] [address] GFR- AM. >60 Normal >60 [facility] Comment on above: Result Comment: CALC ULATIONS OF ESTIMATED GFR ARE PERFORMED USING THE MDRD STUDY EQUATION FOR THE IDMS-TRACEABLE CREATININE METHODS. CLIN CHEM 2007;53:766-72 Performed By: #### C MP #### [address] [place] [address] [place] [address] GFR-NON AM. >60 Normal >60 [facility] Comment on above: Performed By: #### C MP #### [address] [place] [address] [place] [address] HCO3 (Bld) [Moles/Vol] 23 mmol/L Normal 21 - 32 [facility] Comment on above: Performed By: #### C MP #### [address] [place] [address] [place] [address] FERRITINon 04-24-2020 Ferritin [Mass/Vol] 8 ug/L Normal 8 - 150 [facility] Comment on above: Performed By: #### F ERRI #### [address] [place] [address] IRON + TIBCon 04-24-2020 % SATURATION 14 % Low 25 - 45 [facility] Comment on above: Performed By: #### I RONT #### [address] [place] [address] Iron [Mass/Vol] 65 ug/dL Normal 35 - 150 [facility] Comment on above: Performed By: #### I RONT #### [address] [place] [address] TIBC 449 ug/dL High 240 - 445 [facility] Comment on above: Performed By: #### I RONT #### [address] [place] [address] Complete Blood Count + Diffe rentialon 12-25-2019 Basophils/100 WBC (Bld) 1.0 % 0.0 - 2.0 GR-UOQUX-GPJ [address] [place] Work Phone: Eosinophils (Bld) [#/Vol] 0.37 {x10E9/L} See Below ZU-XZOCY-QBT [address] [place] Work Phone: Comment on above: Reference Range: 0.0 0 - 0.70 Eosinophils/100 WBC (Bld) 3.0 % 0.0 - 6.0 QU-NEDSB-GDV [address] [place] Work Phone: Erythrocyte distribution width (RBC) [Ratio] 13.4 % See Below PL-TGBWE-URX [address] [place] Work Phone: Comment on above: Reference Range: 11. 5 - 14.5 Hematocrit (Bld) [Volume fraction] 41.8 % See Below TW-NCOCH-XZG [address] [place] Work Phone: Comment on above: Reference Range: 36. 0 - 46.0 Hemoglobin (Bld) [Mass/Vol] 13.6 g/dL See Below OL-DPBPW-AND [address] [place] Work Phone: Comment on above: Reference Range: 12. 0 - 16.0 Lymphocytes (Bld) [#/Vol] 2.52 {x10E9/L} See Below BI-TOLVO-IGF [address] [place] Work Phone: Comment on above: Reference Range: 1.2 0 - 4.80 Lymphocytes/100 WBC (Bld) 20.2 % See Below DX-EMGLF-POF [address] [place] Work Phone: Comment on above: Reference Range: 13. 0 - 44.0 MCHC (RBC) [Mass/Vol] 32.5 g/dL See Below UW-HKFDE-WYT [address] [place] Work Phone: Comment on above: Reference Range: 32. 0 - 36.0 MCV (RBC) [Entitic vol] 95 fL 80 - 100 WK-ZTTGN-OZG [address] [place] Work Phone: Monocytes (Bld) [#/Vol] 0.58 {x10E9/L} See Below CT-AMMAG-XTJ [address] [place] Work Phone: Comment on above: Reference Range: 0.1 0 - 1.00 Monocytes/100 WBC (Bld) 4.6 % 2.0 - 10.0 XN-HSFMH-VUD [address] [place] Work Phone: Neutrophils/100 WBC (Bld) 70.6 % See Below UA-LANDL-XTS [address] [place] Work Phone: Comment on above: Reference Range: 40. 0 - 80.0 Platelets (Bld) [#/Vol] 372 {x10E9/L} 150 - 450 CC-EGYOA-JQP [address] [place] Work Phone: RBC (Bld) [#/Vol] 4.40 {x10E12/L} See Below MG -OBGYN-MAC [address] [place] Work Phone: Comment on above: Reference Range: 4.0 0 - 5.20 WBC (Bld) [#/Vol] 0.0 {/100_WBC} 0.0-0.0 MG- OBGYN-MAC [address] [place] Work Phone: WBC (Bld) [#/Vol] 12.7 {x10E9/L} above high threshold 4.4 - 11.3 XU-CRQYG-FJQ [address] [place] Work Phone: Comment on above: SOURCE: Complete Blood Count + Differential 8.81 {x10E9/L} above high threshold See Below TI-RIHUT-RDX [address] [place] Work Phone: Comment on above: Reference Range: 1.2 0 - 7.70 Complete Blood Count + Differential 0.6 % 0.0 - 0.9 NO-RBZOV-EOH [address] [place] Work Phone: Comment on above: Percent differential counts (%) should be interpreted in the context of the absolute cell counts (cells/L). Complete Blood Count + Differential 0.13 {x10E9/L} above high threshold See Below DJ-BCPHK-ZWA [address] [place] Work Phone: Comment on above: Reference Range: 0.0 0 - 0.10 Cult, Urineon 12-25-2019 Bacteria identified Cx Nom (U) PATIENT: KIARA ASHLEY LOCATION: [id number] BILL#: [id number] : 89 AGE: SEX: F ORDERED BY: PARAS GUEVARA: URINE COLLECTED: 12/25/19 09:41ANTIBIOTICS AT [place].: RECEIVED : 12/25/19 17:06SITE: Clean Catch/Voided R E S U L T S URINE CULTURE,BACTERIAL FINAL 12/26/19 10:21 NO SIGNIFICANT GROWTH. IO-XWMCG-VMI [address] [place] Work Phone: Hematologyon 12-25-2019 ABO group Nom (Bld) A HX-ARJXO-FZB [address] [place] Work Phone: Blood group antibody screen Ql Negative ZN-GBPUL-POG [address] [place] Work Phone: Rh immune globulin screen (Bld) [Interp] Positive HJ-XZQHD-JXF [address] [place] Work Phone: Hepatitis B Surface Antigeno n 12-25-2019 Hepatitis B Surface Antigen NONREACTIVE See Below AL-IRMZJ-HEU [address] [place] Work Phone: Comment on above: [...] Hepatitis C Antibody Test NON-REACTIVE See Below LH-XTCIH-COM [address] [place] Work Phone: Comment on above: SOURCE: Reference Ra nge: NONREACTIVE Patients receiving more than 5 mg/day of biotin may have interference in test results. A sample should be taken no sooner than eight hours after previous dose. Contact the testing laboratory for additional information. Metabolic Panelon 12-25-2019 ALP [Catalytic activity/Vol] 67 U/L 33 - 110 SC-FFQGC-YPD [address] [place] Work Phone: Anion gap [Moles/Vol] 15 mmol/L 10 - 20 ST-JICTR-DUR [address] [place] Work Phone: Bilirubin [Mass/Vol] 0.3 mg/dL 0.0 - 1.2 LP-VCLMT-FNT [address] [place] Work Phone: Calcium [Mass/Vol] 9.6 mg/dL 8.6 - 10.6 UJ-WZSWU-FDG [address] [place] Work Phone: Chloride [Moles/Vol] 104 mmol/L 98 - 107 HO-QJOXF-ATP [address] [place] Work Phone: CO2 [Moles/Vol] 21 mmol/L 21 - 32 MG-OBGYN- MAC 1200 [place] Work Phone: Creatinine [Mass/Vol] 0.69 mg/dL See Below RL-VYQAB-UND [address] [place] Work Phone: Comment on above: Reference Range: 0.5 0 - 1.05 Glucose [Mass/Vol] 83 mg/dL 74 - 99 EZ-VYJMB-VTN 1200 [place] Work Phone: Comment on above: SOURCE: Potassium [Moles/Vol] 4.1 mmol/L 3.5 - 5.3 RS-UUBLY-DRW [address] [place] Work Phone: Protein [Mass/Vol] 6.2 g/dL below low threshold 6.4 - 8.2 FI-TWIDA-DKU [address] [place] Work Phone: Sodium [Moles/Vol] 136 mmol/L 136 - 145 XN-RLENN-RVK [address] [place] Work Phone: Urea nitrogen [Mass/Vol] 9 mg/dL 6 - 23 SE-SPJUC-TWA [address] [place] Work Phone: Otheron 12-25-2019 Albumin BCP dye [Mass/Vol] 3.9 g/dL 3.4 - 5.0 FQ-EPYWS-NKT 1200 [place] Work Phone: ALT With P-5'-P [Catalytic activity/Vol] 8 U/L 7 - 45 QT-DBYVX-GJV [address] [place] Work Phone: Comment on above: Patients treated wit h Sulfasalazine may generate falsely decreased results for ALT. AST With P-5'-P [Catalytic activity/Vol] 11 U/L 9 - 39 SM-WSHPF-NEF [address] [place] Work Phone: NONE LJ-DANEZ-FKJ [address] [place] Work Phone: >60 >60 AJ-STPRW-CZQ 1200 [place] Work Phone: Comment on above: CALCULATIONS OF MARÍA MATED GFR ARE PERFORMED USING THE MDRD STUDY EQUATION FOR THE IDMS-TRACEABLE CREATININE METHODS. CLIN CHEM 2007;53:766-72 SYPHILIS SCREENING WITH REFL EXon 12-25-2019 T. pallidum IgG+IgM IA Ql (S) NONREACTIVE See Below ZB-XTQDF-GUR 1200 [place] Work Phone: Comment on above: SOURCE: Reference Ra nge: NONREACTIVENo significant level of Treponema pallidum antibody detected. Repeat testing in 2 to 4 weeks may be considered if early infection or incubating syphilis infection is suspected. CBC AND DIFFERENTIALon 11-21 % AUTOMATED IMMATURE GRAN 0.9 % Normal 0.0 - 0.9 [facility] Comment on above: Result Comment: Perc ent differential counts (%) should be interpreted in the context of the absolute cell counts (cells/L). Performed By: #### C BCDF #### [address] [place] [address] Basophils (Bld) [#/Vol] 0.16 10*3/uL High 0.00 - 0.10 [facility] Comment on above: Performed By: #### C BCDF #### [address] [place] [address] Basophils/100 WBC (Bld) 1.2 % Normal 0.0 - 2.0 [facility] Comment on above: Performed By: #### C BCDF #### [address] [place] [address] Eosinophils (Bld) [#/Vol] 0.80 10*3/uL High 0.00 - 0.70 [facility] Comment on above: Performed By: #### C BCDF #### [address] [place] [address] Eosinophils/100 WBC (Bld) 5.8 % Normal 0.0 - 6.0 [facility] Comment on above: Performed By: #### C BCDF #### [address] [place] [address] Erythrocyte distribution width (RBC) [Ratio] 13.6 % Normal 11.5 - 14.5 [facility] Comment on above: Performed By: #### C BCDF #### [address] [place] [address] Hematocrit (Bld) [Volume fraction] 39.4 % Normal 36.0 - 46.0 [facility] Comment on above: Performed By: #### C BCDF #### [address] [place] [address] Hemoglobin (Bld) [Mass/Vol] 13.0 g/dL Normal 12.0 - 16.0 [facility] Comment on above: Performed By: #### C BCDF #### [address] [place] [address] Lymphocytes (Bld) [#/Vol] 2.24 10*3/uL Normal 1.20 - 4.80 [facility] Comment on above: Performed By: #### C BCDF #### [address] [place] [address] Lymphocytes/100 WBC (Bld) 16.3 % Normal 13.0 - 44.0 [facility] Comment on above: Performed By: #### C BCDF #### [address] [place] [address] MCHC (RBC) [Mass/Vol] 33.0 g/dL Normal 32.0 - 36.0 [facility] Comment on above: Performed By: #### C BCDF #### [address] [place] [address] MCV (RBC) [Entitic vol] 94 fL Normal 80 - 100 [facility] Comment on above: Performed By: #### C BCDF #### [address] [place] [address] Monocytes (Bld) [#/Vol] 0.83 10*3/uL Normal 0.10 - 1.00 [facility] Comment on above: Performed By: #### C BCDF #### [address] [place] [address] Monocytes/100 WBC (Bld) 6.0 % Normal 2.0 - 10.0 [facility] Comment on above: Performed By: #### C BCDF #### [address] [place] [address] Neutrophils (Bld) [#/Vol] 9.60 10*3/uL High 1.20 - 7.70 [facility] Comment on above: Performed By: #### C BCDF #### [address] [place] [address] Neutrophils/100 WBC (Bld) 69.8 % Normal 40.0 - 80.0 [facility] Comment on above: Performed By: #### C BCDF #### [address] [place] [address] Platelets (Bld) [#/Vol] 380 10*3/uL Normal 150 - 450 [facility] Comment on above: Performed By: #### C BCDF #### [address] [place] [address] RBC (Bld) [#/Vol] 4.21 x10E12/L Normal 4.00 - 5.20 [facility] Comment on above: Performed By: #### C BCDF #### [address] [place] [address] WBC (Bld) [#/Vol] 13.8 10*3/uL High 4.4 - 11.3 [facility] Comment on above: Performed By: #### C BCDF #### [address] [place] [address] Complete Blood Count + Diffe marc 11-14-2019 Basophils (Bld) [#/Vol] 0.05 {x10E9/L} See Below -Reproductiv e Endocrinology- [place] Work Phone: Comment on above: Reference Range: 0.0 0 - 0.10 Basophils/100 WBC (Bld) 0.4 % 0.0 - 2.0 MP-Reproductiv e Endocrinology- [place] Work Phone: Eosinophils (Bld) [#/Vol] 0.89 {x10E9/L} above high threshold See Below MP-Reproductiv e Endocrinology- [place] Work Phone: Comment on above: Reference Range: 0.0 0 - 0.70 Eosinophils/100 WBC (Bld) 7.3 % 0.0 - 6.0 MP-Reproductiv e Endocrinology- [place] Work Phone: Erythrocyte distribution width (RBC) [Ratio] 13.9 % See Below -Reproductiv e Endocrinology- [place] 206 Work Phone: Comment on above: Reference Range: 11. 5 - 14.5 Hematocrit (Bld) [Volume fraction] 39.4 % See Below -Reproductiv e Endocrinology- [place] 206 Work Phone: Comment on above: Reference Range: 36. 0 - 46.0 Hemoglobin (Bld) [Mass/Vol] 12.8 g/dL See Below -Reproductiv e Endocrinology- [place] Work Phone: Comment on above: Reference Range: [...] 32.5 g/dL See Below MP-Reproductiv e Endocrinology- [place] Work Phone: Comment on above: Reference Range: 32. 0 - 36.0 MCV (RBC) [Entitic vol] 95 fL 80 - 100 MP-Reproductiv e Endocrinology- [place] Work Phone: Monocytes (Bld) [#/Vol] 0.60 {x10E9/L} See Below MP-Reproductiv e Endocrinology- [place] Work Phone: Comment on above: Reference Range: 0.1 0 - 1.00 Monocytes/100 WBC (Bld) 4.9 % 2.0 - 10.0 MP-Reproductiv e Endocrinology- [place] Work Phone: Neutrophils/100 WBC (Bld) 69.4 % See Below MP-Reproductiv e Endocrinology- [place] Work Phone: Comment on above: Reference Range: 40. 0 - 80.0 Platelets (Bld) [#/Vol] 423 {x10E9/L} 150 - 450 MP-Reproductiv e Endocrinology- [place] Work Phone: RBC (Bld) [#/Vol] 4.15 {x10E12/L} See Below MP -Reproductiv e EndocrinologyRooftop Media [place] Work Phone: Comment on above: Reference Range: 4.0 0 - 5.20 WBC (Bld) [#/Vol] 12.2 {x10E9/L} above high threshold 4.4 - 11.3 MP-Reproductiv e Endocrinology- [place] Work Phone: WBC (Bld) [#/Vol] 0.0 {/100_WBC} 0.0-0.0 MP- Reproductiv e Endocrinology- [place] Work Phone: Complete Blood Count + Differential 0.5 % 0.0 - 0.9 MP-Reproductiv e Endocrinology- [place] Work Phone: Comment on above: Percent differential counts (%) should be interpreted in the context of the absolute cell counts (cells/L). Complete Blood Count + Differential 8.42 {x10E9/L} above high threshold See Below MP-Reproductiv e [facility]- [place] Work Phone: Comment on above: Reference Range: 1.2 0 - 7.70 Metabolic Panelon 11-14-2019 ALP [Catalytic activity/Vol] 82 U/L 33 - 110 MP-Reproductiv e [facility]- [place] Work Phone: Anion gap [Moles/Vol] 19 mmol/L 10 - 20 MP-Reproductiv e [facility]- [place] Work Phone: Bilirubin [Mass/Vol] 0.4 mg/dL 0.0 - 1.2 MP-Reproductiv e [facility]ocr[facility]- [place] Work Phone: Calcium [Mass/Vol] 9.5 mg/dL 8.6 - 10.6 MP-Reproductiv e [facility]- [place] Work Phone: Chloride [Moles/Vol] 100 mmol/L 98 - 107 MP-Reproductiv e Endocr[facility]- [place] Work Phone: CO2 [Moles/Vol] 20 mmol/L below low threshold 21 - 32 MP-Reproductiv e Endocrin[facility]- [place] Work Phone: Creatinine [Mass/Vol] 0.80 mg/dL See Below MP-Reproductiv e Endocrin[facility]- [place] Work Phone: Comment on above: Reference Range: 0.5 0 - 1.05 Glucose [Mass/Vol] 86 mg/dL 74 - 99 MP-Reproductiv e Endocrin[facility]- [place] Work Phone: Potassium [Moles/Vol] 4.3 mmol/L 3.5 - 5.3 MP-Reproductiv e Endocrin[facility]- [place] Work Phone: Protein [Mass/Vol] 5.8 g/dL below low threshold 6.4 - 8.2 MP-Reproductiv e Endocrin[facility]- [place] Work Phone: Sodium [Moles/Vol] 135 mmol/L below low threshold 136 - 145 [facility] Urea nitrogen [Mass/Vol] 10 mg/dL 6 - 23 MP-Reproductiv e Endocrin[facility]- [place] Work Phone: Otheron 11-14-2019 Albumin BCP dye [Mass/Vol] 3.5 g/dL 3.4 - 5.0 MP-Reproductiv e Endocrin[facility]- [place] Work Phone: ALT With P-5'-P [Catalytic activity/Vol] 17 U/L 7 - 45 MP-Reproductiv e [facility] Work Phone: Comment on above: Patients treated wit h Sulfasalazine may generate falsely decreased results for ALT. AST With P-5'-P [Catalytic activity/Vol] 22 U/L 9 - 39 [facility] [place] Work Phone: >60 >60 MP-Reproductiv e [facility] Work Phone: Comment on above: CALCULATIONS OF MARÍA MATED GFR ARE PERFORMED USING THE MDRD STUDY EQUATION FOR THE IDMS-TRACEABLE CREATININE METHODS. CLIN CHEM 2007;53:766-72 CBCon 11-09-2019 Erythrocyte distribution width (RBC) [Ratio] 13.7 % See Below IR-IUKGG-Lcwkl n 310 IVF Work Phone: Comment on above: Performed By: #### L H #### [facility] [address] [place] [address] Reference Range: 11. 5 - 14.5 Hematocrit (Bld) [Volume fraction] 41.9 % See Below HQ-EJLFN-Cagbd n 310 IVF Work Phone: Comment on above: Performed By: #### L H #### [facility] [address] [place] [address] Reference Range: 36. 0 - 46.0 Hemoglobin (Bld) [Mass/Vol] 14.0 g/dL See Below NC-SZZKU-Fjiqf n 310 IVF Work Phone: Comment on above: Performed By: #### L H #### [facility] [address] [place] [address] Reference Range: 12. 0 - 16.0 MCHC (RBC) [Mass/Vol] 33.4 g/dL See Below WA-UXWPH-Btvqf n 310 IVF Work Phone: Comment on above: Performed By: #### L H #### [facility] [address] [place] [address] Reference Range: 32. 0 - 36.0 MCV (RBC) [Entitic vol] 94 fL 80 - 100 YN-UOSRW-Dlxlc n 310 IVF Work Phone: Comment on above: Performed By: #### L H #### [facility] [address] [place] [id number] Platelets (Bld) [#/Vol] 411 10*3/uL Normal 150 - 450 [facility] Comment on above: Performed By: #### L H #### [facility] [address] [place] [id number] RBC (Bld) [#/Vol] 4.44 x10E12/L Normal 4.00 - 5.20 [facility] Comment on above: Performed By: #### L H #### [facility] [address] [place] [id number] WBC (Bld) [#/Vol] 12.4 10*3/uL High 4.4 - 11.3 [facility] Comment on above: Performed By: #### L H #### [facility] [address] [place] [id number] COMPREHENSIVE PANELon 2018 Albumin [Mass/Vol] 3.8 g/dL Normal 3.4 - 5.0 [facility] Comment on above: Performed By: #### L H #### [facility] [address] [place] [id number] ALP [Catalytic activity/Vol] 51 U/L 33 - 110 HV-UTQYE-Kyihv n 310 IVF Work Phone: Comment on above: Performed By: #### L H #### [facility] [address] [place] [address] ALT [Catalytic activity/Vol] 12 U/L Normal 7 - 45 [facility] Comment on above: Result Comment: Melida ents treated with Sulfasalazine may generate falsely decreased results for ALT. Performed By: #### L H #### [facility] [address] [place] [address] Anion gap [Moles/Vol] 13 mmol/L 10 - 20 ST-FSXSD-Letek n 310 IVF Work Phone: Comment on above: Performed By: #### L H #### [facility] [address] [place] [address] AST [Catalytic activity/Vol] 12 U/L Normal 9 - 39 [facility] Comment on above: Performed By: #### L H #### [facility] [address] [place] [address] Bilirubin [Mass/Vol] 0.4 mg/dL 0.0 - 1.2 NR-IAUIT-Prglj n 310 IVF Work Phone: Comment on above: Performed By: #### L H #### [facility] [address] [place] [address] Calcium [Mass/Vol] 9.3 mg/dL 8.6 - 10.3 SX-JKPAN-Vmxyv n 310 IVF Work Phone: Comment on above: Performed By: #### L H #### [facility] [address] [place] [address] Chloride [Moles/Vol] 102 mmol/L 98 - 107 GV-GJUDU-Yrkoh n 310 IVF Work Phone: Comment on above: Performed By: #### L H #### [facility] [address] [place] [address] Creatinine [Mass/Vol] 0.89 mg/dL See Below OG-VZMIT-Hcdth n 310 IVF Work Phone: Comment on above: Performed By: #### L H #### [facility] [address] [place] [id number] Reference Range: 0.5 0 - 1.05 GFR- AM. >60 Normal >60 [facility] Comment on above: Result Comment: CALC ULATIONS OF ESTIMATED GFR ARE PERFORMED USING THE MDRD STUDY EQUATION FOR THE IDMS-TRACEABLE CREATININE METHODS. CLIN CHEM 2007;53:766-72 Performed By: #### L H #### [facility] [address] [place] [id number] GFR-NON AM. >60 Normal >60 [facility] Comment on above: Performed By: #### L H #### [facility] [address] [place] [id number] Glucose [Mass/Vol] 74 mg/dL 74 - 99 OK-LIXPN-Krysf n 310 IVF Work Phone: Comment on above: Performed By: #### L H #### [facility] [address] [place] [id number] HCO3 (Bld) [Moles/Vol] 25 mmol/L Normal 21 - 32 [facility] Comment on above: Performed By: #### L H #### [facility] [address] [place] [id number] Potassium [Moles/Vol] 4.1 mmol/L 3.5 - 5.3 MP-UQQKW-Rcnva n 310 IVF Work Phone: Comment on above: Performed By: #### L H #### [facility] [address] [place] [id number] Protein [Mass/Vol] 6.0 g/dL below low threshold 6.4 - 8.2 EF-BASBE-Oazlb n 310 IVF Work Phone: Comment on above: Performed By: #### L H #### [facility] [address] [place] [id number] Sodium [Moles/Vol] 136 mmol/L 136 - 145 AO-UPBED-Xwqzu n 310 IVF Work Phone: Comment on above: Performed By: #### L H #### [facility] [address] [place] [address] Urea nitrogen [Mass/Vol] 11 mg/dL 6 - 23 KF-DQYNG-Hwacf n 310 IVF Work Phone: Comment on above: Performed By: #### L H #### [facility] [address] [place] [address] HCG, Beta Quantitativeon HCG.beta subunit Qn 7102 {mIU/mL} Abnormal KG-WYQAR-Audng n 310 IVF Work Phone: Comment on [...] performed using a different test methodology at [facility] than other legacy [facility]. Direct result comparison should only be made within the same method. REF VALUESNON FEMALE <5MALES <5 HCG,BETA-QUANTITATIVEon 12- HCG,BETA-QUANTITA TIVE 7102 mIU/mL [facility] Comment on above: Result Comment: Low- [...] HCG measurement is performed using the [employer] Access Immunoassay which detects intact HCG and free beta HCG subunit. This test is not indicated for use as a tumor marker. HCG testing is performed using a different test methodology at [facility] than other legacy [facility]. Direct result comparison should only be made within the same method. REF VALUES NON FEMALE <5 MALES <5 Performed By: #### L H #### [facility] [address] [place] [address] Hematologyon 11-09-2019 Platelets (Bld) [#/Vol] 411 {x10E9/L} 150 - 450 PG-QIWNB-Qubil n 310 IVF Work Phone: RBC (Bld) [#/Vol] 4.44 {x10E12/L} See Below MG -OBGYN-Risma n 310 IVF Work Phone: Comment on above: Reference Range: 4.0 0 - 5.20 WBC (Bld) [#/Vol] 12.4 {x10E9/L} above high threshold 4.4 - 11.3 SG-OKEPD-Otomw n 310 IVF Work Phone: Metabolic Panelon 11-09-2019 CO2 [Moles/Vol] 25 mmol/L 21 - 32 MG-OBGYN- Risma n 310 IVF Work Phone: Otheron 11-09-2019 Albumin BCP dye [Mass/Vol] 3.8 g/dL 3.4 - 5.0 YZ-ELPPL-Ksxyu n 310 IVF Work Phone: ALT With P-5'-P [Catalytic activity/Vol] 12 U/L 7 - 45 LO-JKOVN-Prnyb n 310 IVF Work Phone: Comment on above: Patients treated wit h Sulfasalazine may generate falsely decreased results for ALT. AST With P-5'-P [Catalytic activity/Vol] 12 U/L 9 - 39 BA-WWQBR-Gsxkk n 310 IVF Work Phone: >60 >60 HW-UNXVH-Oqwyp n 310 IVF Work Phone: Comment on [...] HCG measurement is performed using the [employer] Access Immunoassay which detects intact HCG and free beta HCG subunit. This test is not indicated for use as a tumor marker. HCG testing is performed using a different test methodology at [facility] than other legacy [facility]. Direct result comparison should only be made within the same method. REF VALUESNON FEMALE <5MALES <5 HCG,BETA-QUANTITATIVEon 10-15 HCG,BETA-QUANTITA TIVE 240 mIU/mL [facility] Comment on above: Result Comment: Low- [...] HCG measurement is performed using the [employer] Access Immunoassay which detects intact HCG and free beta HCG subunit. This test is not indicated for use as a tumor marker. HCG testing is performed using a different test methodology at [facility] than other legacy [facility]. Direct result comparison should only be made within the same method. REF VALUES NON FEMALE <5 MALES <5 Performed By: #### E STRA #### [facility] [address] [place] [address] ESTRADIOLon 10-14-2019 ESTRADIOL 1871 pg/mL Normal [facility] Comment on above: Result Comment: Estr adiol measurement is performed using the [employer] Access Immunoassay. Estradiol testing is performed using a different test methodology at [facility] than other legacy [facility]. Direct result comparison should only be made within the same method. REF VALUES FOLLICULAR PHASE 20-144 MID CYCLE 64-357 LUTEAL PHASE 56-214 POSTMENOPAUSE < 32 PREPUBERTY < 20 MALE 10-18Y < 20 ADULT MALE < 40 Performed By: #### E STRA #### [facility] [address] [place] [address] Estradiol, Serumon 9 E2 [Mass/Vol] 1871 pg/mL MG-OBGYN-Ri sma n 310 IVF Work Phone: Comment on above: Estradiol measuremen t is performed using the [employer] Access Immunoassay. Estradiol testing is performed using a different test methodology at [facility] than other legacy [facility]. Direct result comparison should only be made within the same method.REF VALUESFOLLICULAR PHASE 20-144MID CYCLE 64-357LUTEAL PHASE 56-214POSTMENOPAUSE < 32PREPUBERTY < 20MALE 10-18Y < 20ADULT MALE < 40 PROGESTERONEon 10-14-2019 PROGESTERONE 1.0 ng/mL Normal [facility] Comment on above: Result Comment: Prog esterone is performed using the [employer] Access Immunoassay. Progesterone testing is performed using a different test methodology at [facility] than other [facility]. Direct result comparison should only be made within the same method. REF VALUES MALE <0.2-0.8 FOLLICULAR PHASE <0.2-1.5 LUTEAL PHASE 7.4-15.4 POSTMENOPAUSAL <0.2-0.2 1ST TRIMESTER 12.0-84.0 2ND TRIMESTER 10.2-58.8 3RD TRIMESTER 46.5-160 Performed By: #### E STRA #### [facility] [address] [place] [address] Progesterone, Serumon 2018 Progesterone [Mass/Vol] 1.0 ng/mL RQ-ELEBT-Tcxoj n 310 IVF Work Phone: Comment on above: Progesterone is perf ormed using the [employer] Access Immunoassay. Progesterone testing is performed using a different test methodology at [facility] than other [facility]. Direct result comparison should only be made within the same method.REF VALUESMALE <0.2-0.8 FOLLICULAR PHASE <0.2-1.5 LUTEAL PHASE 7.4-15.4 POSTMENOPAUSAL <0.2-0.2 1ST TRIMESTER 12.0-84.0 2ND TRIMESTER 10.2-58.8 3RD TRIMESTER 46.5-160 ESTRADIOLon 10-11-2019 ESTRADIOL 284 pg/mL Normal [facility] Comment on above: Result Comment: Estr adiol measurement is performed using the [employer] Access Immunoassay. Estradiol testing is performed using a different test methodology at [facility] than other [facility]. Direct result comparison should only be made within the same method. REF VALUES FOLLICULAR PHASE 20-144 MID CYCLE 64-357 LUTEAL PHASE 56-214 POSTMENOPAUSE < 32 PREPUBERTY < 20 MALE 10-18Y < 20 ADULT MALE < 40 Performed By: #### E STRA #### [facility] [address] [place] [address] Estradiol, Serumon 9 E2 [Mass/Vol] 284 pg/mL MG-OBGYN-Ri sma n 310 IVF Work Phone: Comment on above: Estradiol measuremen t is performed using the [employer] Access Immunoassay. Estradiol testing is performed using a different test methodology at [facility] than other [facility]. Direct result comparison should only be made within the same method.REF VALUESFOLLICULAR PHASE 20-144MID CYCLE 64-357LUTEAL PHASE 56-214POSTMENOPAUSE < 32PREPUBERTY < 20MALE 10-18Y < 20ADULT MALE < 40 ESTRADIOLon 10-05-2019 ESTRADIOL 129 pg/mL Normal [facility] Comment on above: Result Comment: Estr adiol measurement is performed using the [employer] Access Immunoassay. Estradiol testing is performed using a different test methodology at [facility] than other [facility]. Direct result comparison should only be made within the same method. REF VALUES FOLLICULAR PHASE 20-144 MID CYCLE 64-357 LUTEAL PHASE 56-214 POSTMENOPAUSE < 32 PREPUBERTY < 20 MALE 10-18Y < 20 ADULT MALE < 40 Performed By: #### E STRA #### [facility] [address] [place] [address] Estradiol, Serumon 9 E2 [Mass/Vol] 129 pg/mL MG-OBGYN-Ri sma n 310 IVF Work Phone: Comment on above: Estradiol measuremen t is performed using the [employer] Access Immunoassay. Estradiol testing is performed using a different test methodology at [facility] than other [facility]. Direct result comparison should only be made within the same method.REF VALUESFOLLICULAR PHASE 20-144MID CYCLE 64-357LUTEAL PHASE 56-214POSTMENOPAUSE < 32PREPUBERTY < 20MALE 10-18Y < 20ADULT MALE < 40 PROGESTERONEon 10-05-2019 PROGESTERONE 0.2 ng/mL Normal [facility] Comment on above: Result Comment: Prog esterone is performed using the [employer] Access Immunoassay. Progesterone testing is performed using a different test methodology at [facility] than other [facility]. Direct result comparison should only be made within the same method. REF VALUES MALE <0.2-0.8 FOLLICULAR PHASE <0.2-1.5 LUTEAL PHASE 7.4-15.4 POSTMENOPAUSAL <0.2-0.2 1ST TRIMESTER 12.0-84.0 2ND TRIMESTER 10.2-58.8 3RD TRIMESTER 46.5-160 Performed By: #### E STRA #### [facility] [address] [place] [address] Progesterone, Serumon 2018 Progesterone [Mass/Vol] 0.2 ng/mL CK-LFZIT-Emqpr n 310 IVF Work Phone: Comment on above: Progesterone is perf ormed using the [employer] Access Immunoassay. Progesterone testing is performed using a different test methodology at [facility] than other [facility]. Direct result comparison should only be made within the same method.REF VALUESMALE <0.2-0.8 FOLLICULAR PHASE <0.2-1.5 LUTEAL PHASE 7.4-15.4 POSTMENOPAUSAL <0.2-0.2 1ST TRIMESTER 12.0-84.0 2ND TRIMESTER 10.2-58.8 3RD TRIMESTER 46.5-160 ESTRADIOLon 10-02-2019 ESTRADIOL 357 pg/mL Normal [facility] Comment on above: Result Comment: Estr adiol measurement is performed using the [employer] Access Immunoassay. Estradiol testing is performed using a different test methodology at [facility] than other [facility]. Direct result comparison should only be made within the same method. REF VALUES FOLLICULAR PHASE 20-144 MID CYCLE 64-357 LUTEAL PHASE 56-214 POSTMENOPAUSE < 32 PREPUBERTY < 20 MALE 10-18Y < 20 ADULT MALE < 40 Performed By: #### E STRA #### [facility] [address] [place] [address] Estradiol, Serumon 9 E2 [Mass/Vol] 357 pg/mL MG-OBGYN-Cr ock er 206A IVF Work Phone: Comment on above: Estradiol measuremen t is performed using the [employer] Access Immunoassay. Estradiol testing is performed using a different test methodology at [facility] than other [facility]. Direct result comparison should only be made within the same method.REF VALUESFOLLICULAR PHASE 20-144MID CYCLE 64-357LUTEAL PHASE 56-214POSTMENOPAUSE < 32PREPUBERTY < 20MALE 10-18Y < 20ADULT MALE < 40 LUTEINIZING HORMONEon 2018 LUTEINIZING HORMONE 14.7 IU/L Normal [facility] Comment on above: Result Comment: Lute inizing Hormone [LH] is performed using the [employer] Access Immunoassay. LH testing is performed using a different test methodology at [facility] than other [facility]. Direct result comparison should only be made within the same method. REF VALUES FOLLICULAR PHASE 1.5-10.0 MID-CYCLE 13.0-72.0 LUTEAL PHASE 0.5-13.0 MENOPAUSE 15.0-65.0 PREPUBERTY 0- 3.0 CHILDREN 0- 6.0 ADULT MALE 1.0- 9.0 Performed By: #### E [facility] #### [facility] [address] [place] [address] Luteinizing Hormone, Serumon 10-02-2019 Lutropin Qn 14.7 {IU/L} FK-DHMTG-Tdv ck er 206A IVF Work Phone: Comment on above: Luteinizing Hormone [LH] is performed using the [employer] Access Immunoassay. LH testing is performed using a different test methodology at [facility] than other [facility]. Direct result comparison should only be made within the same method.REF VALUESFOLLICULAR PHASE 1.5-10.0MID-CYCLE 13.0-72.0LUTEAL PHASE 0.5-13.0MENOPAUSE 15.0-65.0PREPUBERTY 0- 3.0CHILDREN 0- 6.0ADULT MALE 1.0- 9.0 PROGESTERONEon 10-02-2019 PROGESTERONE 0.1 ng/mL Normal [facility] Comment on above: Result Comment: Prog esterone is performed using the [employer] Access Immunoassay. Progesterone testing is performed using a different test methodology at [facility] than other [facility]. Direct result comparison should only be made within the same method. REF VALUES MALE <0.2-0.8 FOLLICULAR PHASE <0.2-1.5 LUTEAL PHASE 7.4-15.4 POSTMENOPAUSAL <0.2-0.2 1ST TRIMESTER 12.0-84.0 2ND TRIMESTER 10.2-58.8 3RD TRIMESTER 46.5-160 Performed By: #### E STRA #### [facility] [address] [place] [address] Progesterone, Serumon 2018 Progesterone [Mass/Vol] 0.1 ng/mL OJ-TVCIJ-Towyd er 206A IVF Work Phone: Comment on above: Progesterone is perf ormed using the [employer] Access Immunoassay. Progesterone testing is performed using a different test methodology at [facility] than other [facility]. Direct result comparison should only be made within the same method.REF VALUESMALE <0.2-0.8 FOLLICULAR PHASE <0.2-1.5 LUTEAL PHASE 7.4-15.4 POSTMENOPAUSAL <0.2-0.2 1ST TRIMESTER 12.0-84.0 2ND TRIMESTER 10.2-58.8 3RD TRIMESTER 46.5-160 HCG,BETA-QUANTITATIVEon - HCG,BETA-QUANTITA TIVE 10 mIU/mL [facility] Comment on above: Result Comment: Low- [...] performed using a different test methodology at [facility] than other [facility]. Direct result comparison should only be made within the same method. REF VALUES NON FEMALE <5 MALES <5 Performed By: #### L H #### [facility] [address] [place] [address] LUTEINIZING HORMONEon 2018 LUTEINIZING HORMONE 57.0 IU/L Normal [facility] Comment on above: Result Comment: Lute inizing Hormone [LH] is performed using the [employer] Access Immunoassay. LH testing is performed using a different test methodology at [facility] than other [facility]. Direct result comparison should only be made within the same method. REF VALUES FOLLICULAR PHASE 1.5-10.0 MID-CYCLE 13.0-72.0 LUTEAL PHASE 0.5-13.0 MENOPAUSE 15.0-65.0 PREPUBERTY 0- 3.0 CHILDREN 0- 6.0 ADULT MALE 1.0- 9.0 Performed By: #### E STRA #### [facility] [address] [place] [address] PROGESTERONEon 08-13-2019 PROGESTERONE 6.7 ng/mL Normal [facility] Comment on above: Result Comment: Prog esterone is performed using the [employer] Access Immunoassay. Progesterone testing is performed using a different test methodology at [facility] than other [facility]. Direct result comparison should only be made within the same method. REF VALUES MALE <0.2-0.8 FOLLICULAR PHASE <0.2-1.5 LUTEAL PHASE 7.4-15.4 POSTMENOPAUSAL <0.2-0.2 1ST TRIMESTER 12.0-84.0 2ND TRIMESTER 10.2-58.8 3RD TRIMESTER 46.5-160 Performed By: #### L H #### [facility] [address] [place] [address] ESTRADIOLon 08-12-2019 ESTRADIOL 1380 pg/mL Normal [facility] Comment on above: Result Comment: Estr adiol measurement is performed using the [employer] Access Immunoassay. Estradiol testing is performed using a different test methodology at [facility] than other [facility]. Direct result comparison should only be made within the same method. REF VALUES FOLLICULAR PHASE 20-144 MID CYCLE 64-357 LUTEAL PHASE 56-214 POSTMENOPAUSE < 32 PREPUBERTY < 20 MALE 10-18Y < 20 ADULT MALE < 40 Performed By: #### L H #### [facility] [address] [place] [id number] PROGESTERONEon 08-12-2019 PROGESTERONE 1.7 ng/mL Normal [facility] Comment on above: Result Comment: Prog esterone is performed using the [employer] Access Immunoassay. Progesterone testing is performed using a different test methodology at [facility] than other [facility]. Direct result comparison should only be made within the same method. REF VALUES MALE <0.2-0.8 FOLLICULAR PHASE <0.2-1.5 LUTEAL PHASE 7.4-15.4 POSTMENOPAUSAL <0.2-0.2 1ST TRIMESTER 12.0-84.0 2ND TRIMESTER 10.2-58.8 3RD TRIMESTER 46.5-160 Performed By: #### L H #### [facility] [address] [place] [address] ESTRADIOLon 08-11-2019 ESTRADIOL 874 pg/mL Normal [facility] Comment on above: Result Comment: Estr adiol measurement is performed using the [employer] Access Immunoassay. Estradiol testing is performed using a different test methodology at [facility] than other legacy [facility]. Direct result comparison should only be made within the same method. REF VALUES FOLLICULAR PHASE 20-144 MID CYCLE 64-357 LUTEAL PHASE 56-214 POSTMENOPAUSE < 32 PREPUBERTY < 20 MALE 10-18Y < 20 ADULT MALE < 40 Performed By: #### L H #### [facility] [address] [place] [address] PROGESTERONEon 08-11-2019 PROGESTERONE 1.2 ng/mL Normal [facility] Comment on above: Result Comment: Prog esterone is performed using the [employer] Access Immunoassay. Progesterone testing is performed using a different test methodology at [facility] than other legacy [facility]. Direct result comparison should only be made within the same method. REF VALUES MALE <0.2-0.8 FOLLICULAR PHASE <0.2-1.5 LUTEAL PHASE 7.4-15.4 POSTMENOPAUSAL <0.2-0.2 1ST TRIMESTER 12.0-84.0 2ND TRIMESTER 10.2-58.8 3RD TRIMESTER 46.5-160 Performed By: #### L H #### [facility] [address] [place] [address] ESTRADIOLon 08-09-2019 ESTRADIOL 385 pg/mL Normal [facility] Comment on above: Result Comment: Estr adiol measurement is performed using the [employer] Access Immunoassay. Estradiol testing is performed using a different test methodology at [facility] than other legacy [facility]. Direct result comparison should only be made within the same method. REF VALUES FOLLICULAR PHASE 20-144 MID CYCLE 64-357 LUTEAL PHASE 56-214 POSTMENOPAUSE < 32 PREPUBERTY < 20 MALE 10-18Y < 20 ADULT MALE < 40 Performed By: #### L H #### [facility] [address] [place] [address] ESTRADIOLon 08-07-2019 ESTRADIOL 80 pg/mL Normal [facility] Comment on above: Result Comment: Estr adiol measurement is performed using the [employer] Access Immunoassay. Estradiol testing is performed using a different test methodology at [facility] than other legacy [facility]. Direct result comparison should only be made within the same method. REF VALUES FOLLICULAR PHASE 20-144 MID CYCLE 64-357 LUTEAL PHASE 56-214 POSTMENOPAUSE < 32 PREPUBERTY < 20 MALE 10-18Y < 20 ADULT MALE < 40 Performed By: #### L H #### [facility] [address] [place] [address] ESTRADIOLon 08-04-2019 ESTRADIOL 58 pg/mL Normal [facility] Comment on above: Result Comment: Estr adiol measurement is performed using the [employer] Access Immunoassay. Estradiol testing is performed using a different test methodology at [facility] than [facility]. Direct result comparison should only be made within the same method. REF VALUES FOLLICULAR PHASE 20-144 MID CYCLE 64-357 LUTEAL PHASE 56-214 POSTMENOPAUSE < 32 PREPUBERTY < 20 MALE 10-18Y < 20 ADULT MALE < 40 Performed By: #### L H #### [facility] [address] [place] [address] ESTRADIOLon 07-07-2019 ESTRADIOL 110 pg/mL Normal [facility] Comment on above: Result Comment: Estr adiol measurement is performed using the [employer] Access Immunoassay. Estradiol testing is performed using a different test methodology at [facility] than other legacy [facility]. Direct result comparison should only be made within the same method. REF VALUES FOLLICULAR PHASE 20-144 MID CYCLE 64-357 LUTEAL PHASE 56-214 POSTMENOPAUSE < 32 PREPUBERTY < 20 MALE 10-18Y < 20 ADULT MALE < 40 Performed By: #### L H #### [facility] [address] [place] [address] NR MRI SELLA WO/Won 05-31-20 19 NR MRI SELLA WO/W Patient Name: KIARA ASHLEY STUDY: NR MRI SELLA WO/W; 05/31/2019 2:00 pm INDICATION: History of 7 mm microadenoma 2008. COMPARISON: None. ACCESSION NUMBER(S): [id number] ORDERING CLINICIAN: SHAHLA HEALY TECHNIQUE: High resolution [...] Electronically signed by: IRENE BLAKE PHYSICIAN Normal [facility] ESTRADIOLon 05-05-2019 ESTRADIOL 217 pg/mL Normal [facility] Comment on above: Result Comment: Estr adiol measurement is performed using the Jose [employer] Access Immunoassay. Estradiol testing is performed using a different test methodology at [facility] than other [facility]. Direct result comparison should only be made within the same method. REF VALUES FOLLICULAR PHASE 20-144 MID CYCLE 64-357 LUTEAL PHASE 56-214 POSTMENOPAUSE < 32 PREPUBERTY < 20 MALE 10-18Y < 20 ADULT MALE < 40 Performed By: #### E [facility] #### [facility] [address] [place] [address] LUTEINIZING HORMONEon 2018 LUTEINIZING HORMONE 4.4 IU/L Normal [facility] Comment on above: Result Comment: Lute inizing Hormone [LH] is performed using the [employer] Access Immunoassay. LH testing is performed using a different test methodology at [facility] than [facility]. Direct result comparison should only be made within the same method. REF VALUES FOLLICULAR PHASE 1.5-10.0 MID-CYCLE 13.0-72.0 LUTEAL PHASE 0.5-13.0 MENOPAUSE 15.0-65.0 PREPUBERTY 0- 3.0 CHILDREN 0- 6.0 ADULT MALE 1.0- 9.0 Performed By: #### L H #### [facility] [address] [place] [address] ESTRADIOLon 04-11-2019 ESTRADIOL 118 pg/mL Normal [facility] Comment on above: Result Comment: Estr adiol measurement is performed using the [employer] Access Immunoassay. Estradiol testing is performed using a different test methodology at [facility] than [facility]. Direct result comparison should only be made within the same method. REF VALUES FOLLICULAR PHASE 20-144 MID CYCLE 64-357 LUTEAL PHASE 56-214 POSTMENOPAUSE < 32 PREPUBERTY < 20 MALE 10-18Y < 20 ADULT MALE < 40 Performed By: #### E STRA #### [facility] [address] [place] [address] LUTEINIZING HORMONEon 2018 LUTEINIZING HORMONE 7.7 IU/L Normal [facility] Comment on above: Result Comment: Lute inizing Hormone [LH] is performed using the [employer] Access Immunoassay. LH testing is performed using a different test methodology at [facility] than [facility]. Direct result comparison should only be made within the same method. REF VALUES FOLLICULAR PHASE 1.5-10.0 MID-CYCLE 13.0-72.0 LUTEAL PHASE 0.5-13.0 MENOPAUSE 15.0-65.0 PREPUBERTY 0- 3.0 CHILDREN 0- 6.0 ADULT MALE 1.0- 9.0 Performed By: #### L H #### [facility] [address] [place] [address] PROGESTERONEon 04-11-2019 PROGESTERONE 0.1 ng/mL Normal [facility] Comment on above: Result Comment: Prog esterone is performed using the [employer] Access Immunoassay. Progesterone testing is performed using a different test methodology at [facility] than other [facility]. Direct result comparison should only be made within the same method. REF VALUES MALE <0.2-0.8 FOLLICULAR PHASE <0.2-1.5 LUTEAL PHASE 7.4-15.4 POSTMENOPAUSAL <0.2-0.2 1ST TRIMESTER 12.0-84.0 2ND TRIMESTER 10.2-58.8 3RD TRIMESTER 46.5-160 Performed By: #### P SVEN #### [facility] [address] [place] [address] ESTRADIOLon 03-17-2019 ESTRADIOL 120 pg/mL Normal [facility] Comment on above: Result Comment: Estr adiol measurement is performed using the [employer] Access Immunoassay. Estradiol testing is performed using a different test methodology at [facility] than other [facility]. Direct result comparison should only be made within the same method. REF VALUES FOLLICULAR PHASE 20-144 MID CYCLE 64-357 LUTEAL PHASE 56-214 POSTMENOPAUSE < 32 PREPUBERTY < 20 MALE 10-18Y < 20 ADULT MALE < 40 Performed By: #### E STRA #### [facility] [address] [place] [address] LUTEINIZING HORMONEon 2018 LUTEINIZING HORMONE 6.8 IU/L Normal [facility] Comment on above: Result Comment: Lute inizing Hormone [LH] is performed using the [employer] Access Immunoassay. LH testing is performed using a different test methodology at [facility] than other [facility]. Direct result comparison should only be made within the same method. REF VALUES FOLLICULAR PHASE 1.5-10.0 MID-CYCLE 13.0-72.0 LUTEAL PHASE 0.5-13.0 MENOPAUSE 15.0-65.0 PREPUBERTY 0- 3.0 CHILDREN 0- 6.0 ADULT MALE 1.0- 9.0 Performed By: #### L H #### [facility] [address] [place] [address] ESTRADIOLon 02-20-2019 ESTRADIOL 521 pg/mL Normal [facility] Comment on above: Result Comment: Estr adiol measurement is performed using the [employer] Access Immunoassay. Estradiol testing is performed using a different test methodology at [facility] than other [facility]. Direct result comparison should only be made within the same method. REF VALUES FOLLICULAR PHASE 20-144 MID CYCLE 64-357 LUTEAL PHASE 56-214 POSTMENOPAUSE < 32 PREPUBERTY < 20 MALE 10-18Y < 20 ADULT MALE < 40 Performed By: #### E STRA #### [facility] [address] [place] [address] LUTEINIZING HORMONEon 2018 LUTEINIZING HORMONE 3.5 IU/L Normal [facility] Comment on above: Result Comment: Lute inizing Hormone [LH] is performed using the [employer] Access Immunoassay. LH testing is performed using a different test methodology at [facility] than other [facility]. Direct result comparison should only be made within the same method. REF VALUES FOLLICULAR PHASE 1.5-10.0 MID-CYCLE 13.0-72.0 LUTEAL PHASE 0.5-13.0 MENOPAUSE 15.0-65.0 PREPUBERTY 0- 3.0 CHILDREN 0- 6.0 ADULT MALE 1.0- 9.0 Performed By: #### L H #### [facility] [address] [place] [address] Vital Signs Date Time Vital Sign Value Performing Clinician [place] golden 12-27-2023 10:57-0500 Body mass index (BMI) [Ratio] 34.84 kg/m2 Bere JOHNSON Work Phone: [facility] 12-27-2023 10:57-0500 Body weight 83.64 kg Bere JOHNSON Work Phone: [facility] 12-27-2023 10:57-0500 Diastolic blood pressure 68 mm[Hg] Bere JOHNSON Work Phone: [facility] 12-27-2023 10:57-0500 Systolic blood pressure 110 mm[Hg] Bere JOHNSON Work Phone: [facility] 02-27-2023 11:35-0400 Body mass index (BMI) [Ratio] 29.26 kg/m2 Evelyn Perez Work Phone: [employer] 02-27-2023 11:35-0400 Body temperature 98.8 [degF] Evelyn Grubererhorn Work Phone: [facility] [employer] 02-27-2023 11:35-0400 Body weight 72.58 kg Evelyn Grubererhorn Work Phone: [employer] 02-27-2023 11:35-0400 Diastolic blood pressure 66 mm[Hg] Evelyn Grubererhorn Work Phone: [employer] 02-27-2023 11:35-0400 Heart rate 88 /min Evelyn Grubererhorn Work Phone: [facility] [employer] 02-27-2023 11:35-0400 Respiratory rate 14 /min Evelyn Grubererhorn Work Phone: [facility] [employer] 02-27-2023 11:35-0400 SaO2% (BldA) [Mass fraction] 100 % Evelyn Calderonrn Work Phone: [facility] [employer] 02-27-2023 11:35-0400 Systolic blood pressure 103 mm[Hg] Evelyn Grubererhorn Work Phone: [facility] [employer] 06-19-2021 14:03-0400 Body height 157.48 cm Evelyn Grubererhorn Work Phone: NT-YQNDQ-Bcucaj 310 IVF Work Phone: 06-19-2021 14:03-0400 Body mass index (BMI) [Ratio] 29.26 kg/m2 Evelyn Husain Ana Work Phone: HA-ENJHQ-Kkeoag 310 IVF Work Phone: 06-19-2021 14:03-0400 Body surface area Derived from formula 1.74 m2 Evelyn Husain Ana Work Phone: EG-QTDDK-Yjrfdv 310 IVF Work Phone: 06-19-2021 14:03-0400 Body weight 72.58 kg Evelyn M Ana Work Phone: OE-NZSON-Mdutwn 310 IVF Work Phone: 06-19-2021 14:03-0400 1 1 Evelyn M Ana Work Phone: KW-WKQXH-Mrwdfd 310 IVF Work Phone: Comment on above: GRAV PARA 06-19-2021 14:03-0400 0 1 Evelyn M Ana Work Phone: PJ-OLWXD-Wtvsoq 310 IVF Work Phone: Comment on above: [employer] 06-07-2020 10:41-0400 BMI (Body Mass Index) 34.93 kg/m2 King Lappen WE-PRHXS-DJO [address] [place] Work Phone: 06-07-2020 10:41-0400 Body weight 86.64 kg King Lappen GU-EATTT-QJS 120 0 [place] Work Phone: 06-07-2020 10:41-0400 BP Diastolic 76 mm[Hg] King Lappen BN-ZDKQA-KPI 120 0 [place] Work Phone: 06-07-2020 10:41-0400 BP Systolic 111 mm[Hg] King Lappen AM-WOPFS-NMU 120 0 [place] Work Phone: 06-07-2020 10:41-0400 BSA (Body Surface Area) 1.87 m2 King Lappen WJ-FCWXD-WQY [address] [place] Work Phone: 06-07-2020 10:41-0400 Pulse (Heart Rate) 101 /min King Lappen JM-ZURWJ-UAV 1200 [place] Work Phone: 06-07-2020 10:41-0400 0 1 King Lappen BH-IIGQR-XCN 120 0 [place] Work Phone: Comment on above: [employer] 12-25-2019 10:58-0500 BMI (Body Mass Index) 30.18 kg/m2 King Lappen PP-UHIDS-GBK [address] [place] Work Phone: 12-25-2019 10:58-0500 Body weight 74.84 kg King Lappen FP-DIIWD-GCE 120 0 [place] Work Phone: 12-25-2019 10:58-0500 BP Diastolic 68 mm[Hg] King Lappen WW-FWHIT-CZV 120 0 [place] Work Phone: 12-25-2019 10:58-0500 BP Systolic 112 mm[Hg] King Lappen WY-QNMUH-UZQ 120 0 [place] Work Phone: 12-25-2019 10:58-0500 BSA (Body Surface Area) 1.76 m2 King Lappen IR-ZFGYP-GWT 1200 [place] Work Phone: 11-09-2019 11:28-0500 Body Temperature 98.78 [degF] Kelechi Gage NM-DFEEM-Ionlwu 310 IVF Work Phone: 11-09-2019 11:28-0500 BP Diastolic 76 mm[Hg] Kelechi Gage HP-RLJQM-Ghubsw 310 IVF Work Phone: 11-09-2019 11:28-0500 BP Systolic 112 mm[Hg] Kelechi Gage CS-AKQOG-Xncsks 310 IVF Work Phone: 11-09-2019 11:28-0500 Respiratory Rate 96 /min Kelechi Gage WG-CIQAN-Dgzfmn 310 IVF Work Phone: Encounters Encounter Date Encounter Type Care Provider Facility Start: 01-24-2024 End: 01-24-2024 ambulatory BERE [employer]EL Not Available Start: 01-10-2024 End: 01-11-2024 ambulatory Zoya Buitrago [employer] Facility:[facility] Start: 12-27-2023 End: 12-27-2023 ambulatory [employer] Not Available Start: 12-27-2023 End: 12-27-2023 flow sheet Bere [place] PA Work Phone: [facility] Comment [...] Start: 09-14-2023 End: 09-14-2023 ambulatory Lc Waite Facility:[facility] Start: 02-27-2023 End: 02-27-2023 Emergency department patient visit EVELYN Husain [facility] Start: 02-27-2023 End: 02-27-2023 [facility] Comment on above: Sprain of left ankle , unspecified ligament, initial encounter (Primary Dx) Start: 01-11-2023 End: 01-11-[address] DEMARIO RIBEIRO . Facility:[facility] Start: 09-22-2022 End: 09-22-2022 Emergency department patient visit JAMI [facility] Start: 03-10-[address] EVELYN [...] End: 12-27-2021 ambulatory Sabina Barnhart Other [facility] [employer] Other Start: 12-27-2021 Office outpatient visit 5 minutes Sabina Barnhart [facility] Start: 07-16-2021 Patient encounter procedure Evelyn Perez Work Phone: TT-TFVDV-Uggwsj 310 IVF Work Phone: Start: 07-07-2021 AUDIT Evelyn santana Work Phone: PG-XNYMV-Bdfwtw 310 IVF Work Phone: Start: 07-07-2021 Chart Update Evelyn santana Work Phone: YS-QPUGV-Qxlbxr 310 IVF Work Phone: Start: 07-02-2021 Telephone encounter Evelyn gonzales Work Phone: ZN-XDDDW-Vqrywv 310 IVF Work Phone: Start: 06-19-2021 Patient encounter procedure Evelyn Perez Work Phone: RT-UICQB-Nmbvzl 310 IVF Work Phone: Start: 06-07-2020 Patient encounter procedure King Lappen UK-PURJQ-GAD 1200 [place] Work Phone: Start: 04-24-2020 Patient encounter procedure King Lappen FL-FFDHG-HEZ 1200 [place] Work Phone: Start: 02-20-2020 Patient encounter procedure King Lappen SA-IHGQR-PGB 1200 [place] Work Phone: Start: 02-14-2020 Patient encounter procedure King Lappen VS-TUDNY-EQZ 1200 [place] Work Phone: Start: 01-23-2020 Patient encounter procedure King Lappen BJ-ZKILX-TTJ 1200 [place] Work Phone: Start: 12-25-2019 Patient encounter procedure King Lappen VH-UXQDT-MEU 1200 [place] Work Phone: Start: 11-21-2019 Patient encounter procedure King Lappen HQ-HKRZD-GPW 1200 [place] Work Phone: Start: 11-16-2019 Patient encounter procedure Kelechi Gage MP-Reproductive Endocrinology-[place] 206 Work Phone: Start: 11-14-2019 Patient encounter procedure Kelechi Gage IJ-NDNGF-Uaoiza 310 IVF Work Phone: Start: 11-09-2019 Patient encounter procedure Kelechi Gage EQ-JJGNI-Gbtcvz 310 IVF Work Phone: Start: 11-02-2019 Patient encounter procedure Kelechi Gage MP-Reproductive Endocrinology-[place] Work Phone: Start: 10-21-2019 Patient encounter procedure Kelechi Gage MP-Reproductive Endocrinology-[place] Work Phone: Start: 10-14-2019 Patient encounter procedure Kelechi Gage KK-WXLJX-Tbvvck 310 IVF Work Phone: Start: 10-11-2019 Patient encounter procedure Kelechi Gage YI-OWAGF-Bgfwhu 310 IVF Work Phone: Start: 10-05-2019 Patient encounter procedure Kelechi Gage AM-AFNOI-Pbxqgk 320 Work Phone: Start: 10-02-2019 Patient encounter procedure Kelechi Gage OI-BISID-Cthricf 206A IVF Work Phone: Start: 08-14-2019 Patient encounter procedure Kelechi Gage OG-RLZGT-Zvrmzs 310 IVF Work Phone: Start: 08-13-2019 Patient encounter procedure Kelechi Gage RA-BATTZ-Hifqfs 310 IVF Work Phone: Start: 08-12-2019 Patient encounter procedure Kelechi Gage GY-PCKBE-Lfatey 310 IVF Work Phone: Start: 08-11-2019 Patient encounter procedure Kelechi Gage ZU-NEBTD-Kkebee 310 IVF Work Phone: Start: 08-09-2019 Patient encounter procedure Kelechi Gage AP-WGFRL-Qqshwl 310 IVF Work Phone: Start: 08-07-2019 Patient encounter procedure Kelechi Gage JU-LJVPE-Qugfkl 310 IVF Work Phone: Start: 08-04-2019 Patient encounter procedure Kelechi Gage AD-LXJSN-Artbet 310 IVF Work Phone: Start: 07-07-2019 Patient encounter procedure Kelechi Gage ZT-IHCSN-Hrixye 310 IVF Work Phone: Start: 06-08-2019 Patient encounter procedure Kelechi Gage ZQ-KPNYH-Dfkerw 310 IVF Work Phone: Start: 05-17-2019 Patient encounter procedure Kelechi TONGZC-TLYPS-Quhqcf 310 IVF Work Phone: Start: 05-08-2019 Patient encounter procedure Kelechi TONGOJ-JOQSX-Odpqws 310 IVF Work Phone: Start: 05-05-2019 Patient encounter procedure Kelechi Gage RM-CKUZJ-Qbqbjl 310 IVF Work Phone: Start: 04-13-2019 Patient encounter procedure Kelechi Gage SG-FXFHY-Asobpi 310 IVF Work Phone: Start: 04-11-2019 Patient encounter procedure Kelechi Gage SZ-CRGEX-Wggqmg 310 IVF Work Phone: Start: 03-20-2019 Patient encounter procedure Kelechi Gage WO-FXVKG-Gbjdlr 310 IVF Work Phone: Start: 03-17-2019 Patient encounter procedure Kelechi Gage DG-VNXZI-Bhmaqy 310 IVF Work Phone: Start: 02-22-2019 Patient encounter procedure Kelechi TONGDB-LRBZU-Ojflcz 310 IVF Work Phone: Start: 02-20-2019 Patient encounter procedure Kelechi TONGHL-CCTQU-Djfhzf 310 IVF Work Phone: Start: 02-13-2019 Patient encounter procedure Bruce Mayes [place] Start: 02-08-2019 End: 02-12-2019 Patient encounter procedure Bruce Mayes Facility[place] Start: 01-19-2019 Patient encounter procedure Kelechi TONGLV-FLTUE-Bxraaj 310 IVF Work Phone: Patient encounter status Evelyn Perez Work Phone: AG-DVQOH-Lihjtc 310 IVF Work Phone: Procedures Date Procedure [...] AM EDT Routine [facility] [address] [place] [phone] Demario Ribeiro, DO [address] [place] [address] [facility] Start: 02-07-2024 End: 02-07-2024 Professional / ancillary services management 02/07/2024 9:00 AM EDT Ancillary Procedure [facility] [address] [place] [phone] [facility] Start: 01-24-2024 End: 01-24-2024 Patient encounter procedure 01/24/2024 9:30 AM EDT Routine [facility] [address] [place] [phone] Bere Steel PA [address] [facility] [address] [place], [place] [id number] [facility] Start: 01-10-2024 End: 01-10-2024 Patient encounter procedure 01/10/2024 2:20 PM EST Routine [facility] [address] [facility] [address] [place] [phone] Demario Ribeiro DO [address] [facility] [place] [address] [facility] Start: 01-10-2024 End: 01-10-2024 Professional / ancillary services management 01/10/2024 2:00 PM EST Ancillary Procedure [facility] [address] [facility] [address] [place] [phone] [facility] Start: 12-27-2023 End: 12-27-2024 US biophysical profile w non stress test US biophysical profile w non stress test Imaging Routine Hypothyroidism (acquired) (CMS/HCC) H/O blood clots Expected: 12/27/2023 (Approximate), Expires: 12/27/2024 [facility] Work Phone: Comment on above: Expected: 12/27/2023 (Approximate), Expires: 12/27/2024 Start: 12-27-2023 End: 12-27-2024 US for US OB SCAN FOR GROWTH Imaging Routine Hypothyroidism, unspecified type (CMS/HCC) Excessive growth affecting management of in third trimester, single or unspecified fetus Expected: 12/27/2023 (Approximate), Expires: 12/27/2024 [facility] Comment on above: Expected: 12/27/2023 (Approximate), Expires: 12/27/2024 Start: 06-15-2023 Influenza vaccination Flu vacc ine (Season Ended) [facility] Start: 2021 Screening for malignant neoplasm of cervix [facility] Start: 07-25-2021 ULTRASOUND, Provider : OBGYRosenda IVF RDMS AR[place] 1,[facility], Status: Pen, Time: 9:00 AM ULTRASOUND, Provider: OBGYN IVF RDMS AR[place] 1,[facility] O[facility], Status: Pen, Time: 9:00 AM RG-YHKDQ-Nxvhwh 310 IVF Work Phone: Start: 07-16-2021 ULTRASOUND, Provider : OBGYN IVF RDMS [id number] 1,[facility] OBG[facility], Status: Pen, Time: 1:00 PM ULTRASOUND, Provider: OBGYN IVF RDMS [id number] 1,[facility], Status: Pen, Time: 1:00 PM DZ-JBDTB-Nrnmsq 310 IVF Work Phone: Start: 07-07-2021 ULTRASALIN, Provider : Miguel A Barrera, Status: Pen, Time: 10:00 AM ULTRASALIN, Provider: Miguel A Barrera, Status: Pen, Time: 10:00 AM LM-TSJCX-Lzsioj 310 IVF Work Phone: Start: 06-05-2020 MAC Imaging Order MG-MECHANICAL EQUIPMENT TEST ENGINEER-MAC 1200 [place] Work Phone: Start: 11-16-2019 IO Ultrasound, -Reproductive Endocrinology-[facility] chastity Work Phone: Start: 11-14-2019 Blood count complete auto&auto difrntl wbc Complete Blood Count + Differential UN-XUAKS-Ovhpez 310 IVF Work Phone: Start: 11-14-2019 Comprehensive metabolic 2000 panel AH-FSOPV-Gocypu 310 IVF Work Phone: Start: 11-02-2019 Gonadotropin chorion ic quantitative HCG, Beta Quantitative MP-Reproductive Endocrinology-[place] [facility] 206 Work Phone: Start: 10-11-2019 IO Ultrasound, limited pelvic, follicle monitoring QX-QJKDM-Zxbkpo 310 IVF Work Phone: Start: 10-05-2019 IO Ultrasound, limited pelvic, follicle monitoring ZQ-DNVFK-Dkseai 320 Work Phone: Start: 2012 Screening for malignant neoplasm of cervix Pap smear [facility] Start: 2010 DTaP/Tdap/Td vaccine (1 - Tdap) DTaP/Tdap/Td vaccine (1 - Tdap) [facility] Start: 2009 Hepatitis C screening Hepatitis C sc reen [facility] Start: 2006 HIV screening HIV screen [facility] Start: 2003 Depression Screen Depression Screen [facility] Start: 1992 Varicella vaccine (1 of 2 - 2-dose childhood series) Varicella vaccine (1 of 2 - 2-dose childhood series) [facility] Start: 03-02-1992 COVID-19 Vaccine (#1) COVID-19 Vacci ne (#1) [facility] Assay of estradiol Estradiol, Serum MG-MECHANICAL EQUIPMENT TEST ENGINEER-[place] 310 IVF Work Phone: Comment on above: Approx [id number] Approx [id number] Approx [id number] Assay of progesterone Progesterone, Serum OX-IFKRL-Udkhiy 310 IVF Work Phone: Comment on above: Approx [id number] Gonadotropin luteinizing hormone Luteinizing Hormone, Serum QQ-YKQFI-Jnponn 310 IVF Work Phone: Comment on above: Approx [id number] JN-ATKEY-Ldgpph 320 Work Phone: IO Ultrasound, l imited pelvic, follicle monitoring YA-SVLFY-Ovwizk 310 IVF Work Phone: Comment on above: Approx [id number] Approx [id number] Approx [id number] NEGATED: Highlighted row has been ruled out! Planned Goals not documented WU-DQGCJ-Agozvb 310 IVF Work Phone: Payers Date Payer Category Payer Self-pay 2016 Private Health Insurance [id number] 2016 Private Health Insurance [id number] 1991 Unknown [id number] 2.16.84 0.1.698565.3.579.2.593 1991 Unknown [id number] 2.16.84 0.1.578105.3.579.2.593 1991 Unknown [id number] 2.16.84 0.1.932674.3.579.2.593 1991 Unknown [id number] 2.16.84 0.1.536808.3.579.2.593 1991 Unknown [id number] 2.16.84 0.1.573150.3.579.2.593 1991 Unknown [id number] 2.16.84 0.1.252602.3.579.2.593 1991 Unknown [id number] 2.16.84 0.1.950522.3.579.2.593 1991 Unknown [id number] 2.16.84 0.1.813158.3.579.2.593 1991 Unknown [id number] 2.16.84 0.1.575857.3.579.2.593 1991 Unknown [id number] 2.16.84 0.1.911152.3.579.2.593 1991 Unknown [id number] 2.16.84 0.1.413051.3.579.2.593 1991 Unknown [id number] 2.16.84 0.1.770293.3.579.2.593 1991 Unknown [id number] 2.16.84 0.1.372725.3.579.2.593 1991 Unknown [id number] 2.16.84 0.1.145956.3.579.2.593 1991 Unknown [id number] 2.16.8 40.1.609487.3.579.2.173 1991 Unknown [id number] 2.16.8 40.1.279029.3.579.2.173 1991 Unknown [id number] 2.16. 840.1.269423.3.579.2.196 1991 Unknown [id number] 2.16. 840.1.808562.3.579.2.196 1991 Unknown [id number] 2.16.84 0.1.156107.3.579.2.1259 1991 Unknown [id number] 2.16.84 0.1.180578.3.579.2.1259 1991 Unknown [id number] 2.16.84 0.1.292777.3.579.2.1259 1991 Unknown [id number] 2.16.84 0.1.976880.3.579.2.1259 1991 Unknown [id number] 2.16.840 .1.415486.3.579.2.1259 1991 Unknown [id number] 2.16.840 .1.277672.3.579.2.1259 1959 Self-pay [id number] 1959 Unknown [id number] 1959 Unknown [id number] Unknown [id number] 2.16.8 40.1.784223.3.579.2.243 Unknown [id number] 2.16.8 40.1.853043.3.579.2.243 Unknown Unknown [id number] 2.16.8 40.1.968498.3.579.2.531 Social History Date Type Detail Facility - - [address] Work Phone: Start: 05-11-2023 End: 12-27-2023 Never a smoker Never a smoker [facility] Comment on above: [facility] ED; Start: 05-11-2023 End: 09-06-2023 Sex Assigned At [facility] Start: 09-22-2022 End: 04-15-2023 Tobacco smoking status NHIS Never smoked tobacco [employer] Phone: Start: 09-22-2022 End: 04-15-2023 Tobacco use and exposure Smokeless tobacco non-user [employer] Phone: Start: 1990 Sex Assigned At Not on file [facility] Phone: Start: 02-17-2023 End: 02-27-2023 Exposure to SARS-CoV-2 (event) Not sure [facility] Start: 12-27-2023 Alcohol intake Current drinke r [...] status health issues are not documented Disease JM-PYKJL-Inybjt 310 IVF Work Phone: Mental Status Date Assessment Result Facility NEGATED: Highlighted row Cognitive function [Interpretation] Cognitive status health issues are not documented Disease LL-BTUGA-Mlhyum 310 IVF Work Phone: History of Present [...] of: ELIZABETH Daly documented in this encounter [facility] Healthcare Evaluation note 12-27-2021 Note Date & [...] Patient care instructions given in writting by [facility] At Home document. [facility] Other Clinical Note 07-25-2021 Note Date & [...] care. Reviewed plan with Dr. Bruce Aburto, RUBBER GR[employer]ER 07/25/2021 09:22 note: ob scan LOLLY: 03/05/2022. [...] Plan reviewed by Dr. Healy. Petra Lombardi RUBBER GRINDER 07/16/21 1409 TC to pt with quant = 3238 form yesterday; normal rise from 728 on 07/02; Pt doing well; no problems with Lovenox. PT transferred to [facility] for rehab medicine to schedule OB US for next week at [facility]. Bere Way RN 07/07/2021 11:47 Spoke with patient regarding UHRW=387. Pain=0. Patient states she will begin prometrium BID and Lovenox today. Patient will repeat BHCg on Wednesday when she is at work. Patient aware RN will call her WednesdayJuly 07 with results and plan. Lucy Dunlap R.N.07/03/2021 12:19 Spoke to patient, will start Prometrium 100 mg BID and Lovenox 40 mg BID today (+Protein S deficiency). [place] to f/u with patient tomorrow once HCG level is back. Patient verbalized understanding. Rosibel Sam RN 07/02/2021 13:54 note: Reviewed positive test. LMP 7/15, conceived on christy cycle/IC. Plan to get HCG drawn today. Start Prometrium 100mg BID. Start Lovenox 40mg BID SQ. Plan per Dr. Healy. RN to communicate. Petra Lombardi RUBBER GRINDER 07/02/21 1304 Active Problems 16 weeks gestation [...] directed. Peak F (more content not included)... [employer] Chief complaint Narrative - Reported 06-19-2021 Note [...] 30 year-old who presents for a FET [id number] Hx:06/2020: IOL @ 38 weeks due to [...] contour on HSG - images reviewed from [facility] 08/2018Uterine Cavity Evaluation:Normal uterine cavity on [...] on therapeutic dosing when Genetic Screening Hx: [employer] foresight screen negativePartner History:Franklin Ashley [birth year]1990A in past year:2.8 cc125 mil/mL69% dkqlpdtjEGI=419 million(recent IUI sample)Morph from original SA was 2.8% UG-NHFQY-Ckqvyg 310 IVF Work Phone: Evaluation note Note Date & Type Note Facility Evaluation note Diagnosis Sprain of left ankle, unspecified ligament, initial encounter- Primary documented in this encounter [employer] Phone: Evaluation note Note Date & Type Note Facility Evaluation note Diagnosis Third trimester state, incidental First trimester state, incidental Hypothyroidism, unspecified type (CMS/HCC) Hypothyroidism (acquired) (CMS/HCC) Unspecified hypothyroidism H/O blood clots Excessive growth affecting management of in third trimester, single or unspecified fetus documented in this encounter [facility] Hospital Discharge instructions Attachments Note Date & Type Note Facility Hospital Discharge instructions The following attachments cannot be sent through Care Everywhere.Ankle Sprain (Maltese)Ankle Sprain: Rehab Exercises (Maltese)documented in this encounter [employer] Phone: Summary Purpose Family History No Family [...] section and content) DATE CREATED AUTHOR 02/15/2019 [facility] DATE CREATED AUTHOR AUTHOR'S ORGANIZ ATION 11/12/2019 [facility] DATE CREATED AUTHOR AUTHOR'S ORGANIZ ATION 08/09/2020 [facility] DATE CREATED AUTHOR AUTHOR'S ORGANIZ ATION 07/26/2021 [facility] DATE CREATED AUTHOR AUTHOR'S ORGANIZ ATION 01/21/2023 [facility] DATE CREATED AUTHOR AUTHOR'S ORGANIZ ATION 03/06/2023 [facility] DATE CREATED AUTHOR AUTHOR'S ORGANIZ ATION 07/12/2023 [facility] DATE CREATED AUTHOR AUTHOR'S ORGANIZ ATION 10/04/2023 [facility] DATE CREATED AUTHOR AUTHOR'S ORGANIZ ATION 01/15/2024 [facility] DATE CREATED AUTHOR AUTHOR'S ORGANIZ ATION 01/24/2024 [facility] EPIC REASON FOR VISIT (unrecogniz ed section and content) Reason Comments Ankle Pain Rolled ankle during morning run. Swelling to lateral ankle. 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 Reason Comments Routine Visit Care Teams (unrecognized sec tion and content) [facility] Relationship Specialty Start Date End Date Evelyn Perez [address] [place] [address] PCP - General Pediatrics 09/22/22 [facility] Relationship Specialty Start Date End Date Jesse Regan MD [address] [place] [address] PCP - General Family Medicine 11/30/23 FOR [...] BE BASED ON THE PRIMARY CLINICAL RECORDS. [facility] [employer] [facility]. provides no warranty or guarantee of the accuracy or completeness of information in this document.
--- NOTE | 2024-01-31 11:04 | US_ITS ---
[address] [address] Patient Name: ELVIN STUART MRN: [id number] date: 1990 Sex: F Assigned Patient Location: [facility] Current Patient Location: [facility] Accession/Order Number: [id number] Exam Date: 01/31/2024 11:07 Report Date: 01/31/2024 11:54 At the request of: RADAMES CHAUHAN Procedure: US OB BPP w non-stress EXAMINATION: US OB BPP w non-stress HISTORY: HYPOTHYROIDISM E03.9 COMPARISON: No relevant comparison available. TECHNIQUE: Ultrasound biophysical profile was performed in the radiology department. FINDINGS: BREATHING MOVEMENTS: 2.0 GROSS BODY MOVEMENTS: 2.0 TONE: 2.0 QUALITATIVE AMNIOTIC FLUID VOLUME: 2.0 PRESENTATION: CEPHALIC HEART RATE: 143.6 bpm H.B./min AMNIOTIC FLUID VOLUME: 16.8 cm cm GESTATIONAL AGE: 33 weeks 2 days CONCLUSION: Total biophysical profile score: 8.0 Electronically authenticated by: JESSE THOMAS Date: 01/31/2024 11:54
[2024-01-31 11:28] VITALS: BP 112/63; PULSE 80
== END 2024-01-31 12:06 | disposition home or self-care (01) ==
LOC: US 07:10 → FBC 11:01
PROVIDERS: Visit Provider Obstetrics & Gynecology
DX: O36.63X0 Maternal care for excessive fetal growth, third trimester, not applicable or unspecified (principal); E03.9 Hypothyroidism, unspecified; Z3A.33 33 weeks gestation of pregnancy
CPT/HCPCS: 76818

== ENCOUNTER 2024-02-03 06:05 | Outpatient (OUT) | payer OTHER, SELFPAY ==
--- OUTSIDE RECORDS SUMMARY | 2024-02-03 06:19 | XMS_ITS | CCD ---
Author Organization [facility] Care Team Providers Care American History Teacher Name Role Phone Bruce Mayes Attending Unavailable [...] HER Unavailable Unavaila ble OBGYN IVF RDMS [id number] 1, MG OBGYN Unavailable Unavailable Lapkathrine King Unavailable Unavailable Shahla Healy Unavailable Unavailable January, [...] Primary Care Provider JAMI ROMERO Attending Unavailable ANA, EVELYN Husain Primary Care Unavailabl e ANA, EVELYN M Primary Care UnavailLc Rick Admitting Unavailable Evelyn Perez Primary Care Unavailable Lc Waite Attending Unavailable Jesse Regan MD Primary Care Provider Iftikhar [facility], Zoya Cheung Attending Evelyn Robertson MD Primary Care Zamzam vailasánchez Perez MD, Evelyn Gracia Primary Care Zamzam vailable Link KEEGANSIVA, Zoya Cheung Attending Unava DEMARIO Hoang Attending Unavailable BERE STEEL Attending Unavailable BERE STEEL Attending Unavailable DEMARIO RIBEIRO Attending Unavailable DEMARIO RIBEIRO Attending Unavailable BERE STEEL Attending Unavailable Allergies Allergy Classification Reported Allergen(s) Allergy Type Date of Onset Reaction(s) Facility Progesterone (2 sources) Progesterone; Translations: [Progesterone OIL] Drug Allergy [id number] n 310 IVF Work Phone: (16 sources) Progesterone; Translations: [Progesterone OIL] Drug Allergy 2 [facility] (2 sources) sesame seed extract Drug Allergy [facility] (2 sources) Progesterone Drug Allergy 2 [facility] (1 source) No Known Medication Allergies; Translations: [No Known Medication Allergies] Propensity to adverse reactions to drug (disorder) [facility] Medications Current Medications Medication Drug [...] Kelechi Gage MD Start : 14-Aug-2019 Active [id number] 200 actuat albuterol 0.09 mg/actuat metered dose [...] DO Start : 19-Jan-2019 Active BD Disp Tyler 27G X 1/2 (19 sources) Start: 10-03-2019 BD Disp Needle s 27G X 1/2 USE DIRECTED. Quantity: 2 Refills: 2 Shahla Healy MD Start : 03-Oct-2019 Active chorionic gonadotropin 29020 unt/ml injectable solution (19 sources) Gonadotropin Start: 10-03-2019 Chorionic Gonadotropin 31527 UNIT Intramuscular Solution Reconstituted USE DIRECTED. Quantity: [...] Start : 25-Dec-2019 Active Peak Flow Meter [place] Rang Device (3 sources) Start: 01-23-2020 Peak Flow Mete r [place] Rang Device USE DIRECTED. Quantity: 1 Refills: [...] refills. Continue with anticoagulation as prescribed by CATERING SALES MANAGER, patient is currently 30 weeks gestation. Follow-up [...] embolism Historical No qualifying data Procedure/Surgical History [place] Teeth Removal (2005) IVF (11/15/2018) Medications Dulera [...] Link Zoya PERKINS 01/10/24 12:[address] [facility] Phone Note - Heme Onc-medica tion questionon 07-12-2023 Phone Note - Heme Onc-medication question Phone Call Information: Patient Demographics: Name: KIARA ASHLEY Date: 1990 Address: [address] [place] [address] Date and Time: 12-Jul-2023 09:31 Caller Information: call from Call From: patient Caller Name: Kiara Primary Phone Number: [phone] Reason for Call: Reason for Callmedication question [...] asked for script to be sent to [facility]. Script sent. Pt had no further questions [...] 09:57 by Harmony Ross (N MGR) Normal [facility] XR ANKLE LEFT (MIN 3 VIEWS)o [...] William MD 02/27/23 Final result Normal [facility] 1. No acute osseous abnormality involving the left ankle. [facility] EXAMINATION: THREE XRAY VIEWS OF THE LEFT ANKLE 02/27/2023 11:46 am COMPARISON: None. HISTORY: ORDERING SYSTEM PROVIDED HISTORY: pain, swelling TECHNOLOGIST PROVIDED HISTORY: pain, swelling FINDINGS: The bone mineralization is within normal limits. The ankle mortise is stable. No acute fractures or dislocations are seen. There is no soft tissue swelling. [facility] Dario William MD - 02/27/2023 EXAMINATION: [...] acute osseous abnormality involving the left ankle. [facility] Work Phone: Radiology Study observation (narrative) [employer] Phone: XR ANKLE LEFT (MIN 3 VIEWS)O rdered By: Draio William on 02-27-2023 [employer] Phone: PAP ACOG PANEL 2: 30 to 65on 01-19-2023 . . Normal [facility] Comment on above: Result Comment: Perf ormed at: WB Performed By: #### [id number] #### [facility] [address] [address] [address] Claire Mayes Age Gdln ACOG Testing 30-65 Normal [facility] Comment on above: Performed By: #### [id number] #### [facility] [address] [address] [address] Claire Mayes DIAGNOSIS: Comment Normal [facility] Comment on above: Result Comment: NEGA TIVE FOR INTRAEPITHELIAL LESION OR MALIGNANCY. Performed at: WB Performed By: #### [id number] #### [facility] [address] [address] [address] Claire Mayes HPV Aptima Negative Normal Negative [facility] Comment on above: Result Comment: This nucleic acid amplification test detects fourteen high-risk HPV types (16,18,31,33,35,39,45,51,52,56,58,59,66,68) without differentiation. Performed at: =G Performed By: #### [id number] #### [facility] [address] [address] [address] Claire Mayes HPV Genotype Reflex Comment Normal [facility] Comment on above: Result Comment: Crit eria not met, HPV Genotype not performed. Performed at: WB Performed By: #### [id number] #### [facility] [address] [address] [address] Claire Mayes Methodology: Comment Normal [facility] Comment on above: Result Comment: This liquid based ThinPrep(R) pap test was screened with the use of an image guided system. Performed at: WB Performed By: #### 4 [id number] #### [facility] [address] [place] [address] Dr. Claire Mayes Note: Comment [facility] Comment on above: Result Comment: The Pap smear is a screening test designed to aid in the detection of premalignant and malignant conditions of the uterine cervix. It is not a diagnostic procedure and should not be used as the sole means of detecting cervical cancer. Both false-positive and false-negative reports do occur. . Performed at: WB Performed By: #### [id number] #### [facility] [address] [place] [address] Dr. Claire Mayes Performed by: Comment Normal [facility] Comment on above: Result Comment: Sherlyn Wright, Ball Assembler (ASCP) Performed at: WB Performed By: #### [id number] #### [facility] [address] [place] [address] Dr. Claire Mayes Specimen adequacy: Comment Normal [facility] Comment on above: Result Comment: Sati sfactory for evaluation. No endocervical component is identified. Performed at: WB Performed By: #### [id number] #### [facility] [address] [place] [address] Dr. Claire Mayes CBC with Diffon 09-22-2022 Abs. Basophil 0.03 k/uL Normal 0.00-0.20 [facility] Comment on above: Performed By: #### L BJ BUCK, CP #### [facility] [address] [place] [address] Dr. [place], [id number] Systems Analyst Developer: Jesse Curry MD Abs.Imm.Granulocy te 0.04 k/uL Normal 0.00-0.30 [facility] Comment on above: Performed By: #### L CIELO CDP, CP #### [facility] [address] [place] [id number] Systems Analyst Developer: Jesse Curry MD Abs.Neutrophil (Seg) 12.54 k/uL High 1.50-8.10 [facility] Comment on above: Performed By: #### L IP, CDP, CP #### [facility] [address] [place], [id number] Systems Analyst Developer: Jesse Curry MD Basophils/100 WBC (Bld) 0 % Normal 0-2 [facility] Comment on above: Performed By: #### L IP, CDP, CP #### [address] Lawson, [facility] Systems Analyst Developer: Jesse Curry MD Eosinophils (Bld) [#/Vol] 0.16 10*3/uL Normal 0.00-0.44 [facility] Comment on above: Performed By: #### L IP, CDP, CP #### [address] [place] [address] Systems Analyst Developer: Jesse Curry MD Eosinophils/100 WBC (Bld) 1 % Normal 1-4 [facility] Comment on above: Performed By: #### L IP, CDP, CP #### [address] Lawson, [place] [address] Systems Analyst Developer: Jesse Curry MD Erythrocyte distribution width (RBC) [Ratio] 13.6 % Normal 11.8-14.4 [facility] Comment on above: Performed By: #### L IP, CDP, CP #### [address] Lawson, [place] [address] Systems Analyst Developer: Jesse Curry MD Hematocrit (Bld) [Volume fraction] 46.4 % Normal 36.3-47.1 [facility] Comment on above: Performed By: #### L IP, CDP, CP #### [address] [place] [id number] Systems Analyst Developer: Jesse Curry MD Hemoglobin (Bld) [Mass/Vol] 15.6 g/dL High 11.9-15.1 [facility] Comment on above: Performed By: #### L IP, CDP, CP #### [facility] [address] [place], [place] [id number] Systems Analyst Developer: Jesse Curry MD Immature granulocytes/100 WBC (Bld) 0 % Normal 0 [facility] Comment on above: Performed By: #### L IP, CDP, CP #### [address] [place], [place] [id number] Systems Analyst Developer: Jesse Curry MD Lymphocytes (Bld) [#/Vol] 0.98 10*3/uL Low 1.10-3.70 [facility] Comment on above: Performed By: #### L IP, CDP, CP #### [address] Lawson, [id number] Systems Analyst Developer: Jesse Curry MD Lymphocytes/100 WBC (Bld) 7 % Low 24-43 [facility] Comment on above: Performed By: #### L IP, CDP, CP #### [address] Lawson, [id number] Systems Analyst Developer: Jesse Curry MD MCH (RBC) [Entitic mass] 30.4 pg Normal 25.2-33.5 [facility] Comment on above: Performed By: #### L IP, CDP, CP #### [address] Lawson, [id number] Systems Analyst Developer: Jesse Curry MD MCHC (RBC) [Mass/Vol] 33.6 g/dL Normal 28.4-34.8 [facility] Comment on above: Performed By: #### L IP, CDP, CP #### [address] [place], [place] [id number] Systems Analyst Developer: Jesse Curry MD MCV (RBC) [Entitic vol] 90.3 fL Normal 82.6-102.9 [facility] Comment on above: Performed By: #### L IP, CDP, CP #### [address] Lawson, [id number] Systems Analyst Developer: Jesse Curry MD Monocytes (Bld) [#/Vol] 0.58 10*3/uL Normal 0.10-1.20 [facility] Comment on above: Performed By: #### L IP, CDP, CP #### [facility] [address] [place] [address] Dr. Lawson, [id number] Systems Analyst Developer: Jesse Curry MD Monocytes/100 WBC (Bld) 4 % Normal 3-12 [facility] Comment on above: Performed By: #### L IP, CDP, CP #### [address] Lawson, [place] [address] Systems Analyst Developer: Jesse Curry MD Neutrophil (Seg) 88 % High 36-65 [facility] Comment on above: Performed By: #### L IP, CDP, CP #### [address] Lawson, [id number] Systems Analyst Developer: Jesse Curry MD NRBC Automated 0.0 per 100 WBC Normal 0.0 [facility] Comment on above: Performed By: #### L IP, CDP, CP #### [address] Lawson, [id number] Systems Analyst Developer: Jesse Curry MD Platelet mean volume (Bld) [Entitic vol] 9.9 fL Normal 8.1-13.5 [facility] Comment on above: Performed By: #### L IP, CDP, CP #### [facility] [address] [place] [address] Dr. Lawson, [id number] Systems Analyst Developer: Jesse Curry MD Platelets (Bld) [#/Vol] 299 10*3/uL Normal 138-453 [facility] Comment on above: Performed By: #### L IP, CDP, CP #### [address] Lawson, [id number] Systems Analyst Developer: Jesse Curry MD RBC (Bld) [#/Vol] 5.14 10*6/uL High 3.95-5.11 [facility] Comment on above: Performed By: #### L BJ BUCK, CP #### [facility] [address] [place], [place] [id number] Systems Analyst Developer: Jesse Curry MD WBC (Bld) [#/Vol] 14.3 10*3/uL High 3.5-11.3 [facility] Comment on above: Performed By: #### L BJ BUCK, CP #### [facility] [address] [place], [place] [id number] Systems Analyst Developer: Jesse Curry MD CT ABDOMEN PELVIS W [...] Maldonado DO 09/22/22 Final result Normal [facility] Comp Metabolic Profon 2021 Albumin [Mass/Vol] 4.7 g/dL Normal 3.5-5.2 [facility] Comment on above: Performed By: #### L IP, CDP, CP #### [facility] [address] [place] [address] Systems Analyst Developer: Jesse Curry MD Albumin/Glob Ratio 2.0 Normal 1.0-2.5 [facility] Comment on above: Performed By: #### L IP, CDP, CP #### [address] [place] [address] Systems Analyst Developer: Jesse Curry MD Alkaline Phos 77 U/L Normal 35-104 [facility] Comment on above: Performed By: #### L IP, CDP, CP #### [address] [place] [address] Systems Analyst Developer: Jesse Curry MD ALT [Catalytic activity/Vol] 10 U/L Normal 5-33 [facility] Comment on above: Performed By: #### L IP, CDP, CP #### [address] [place] [address] Systems Analyst Developer: Jesse Curry MD Anion gap [Moles/Vol] 12 mmol/L Normal 9-17 [facility] Comment on above: Performed By: #### L IP, CDP, CP #### [address] [place] [address] Systems Analyst Developer: Jesse Curry MD AST [Catalytic activity/Vol] 14 U/L Normal <32 [facility] Comment on above: Performed By: #### L IP, CDP, CP #### [facility] [address] [place], [place] [id number] Systems Analyst Developer: Jesse Curry MD Bilirubin [Mass/Vol] 0.6 mg/dL Normal 0.3-1.2 [facility] Comment on above: Performed By: #### L IP, CDP, CP #### [facility] [address] [place], [place] [id number] Systems Analyst Developer: Jesse Curry MD BUN/CRE Ratio 31 High 9-20 [facility] Comment on above: Performed By: #### L IP, CDP, CP #### [facility] [address] [place], [place] [id number] Systems Analyst Developer: Jesse Curry MD Calcium [Mass/Vol] 9.8 mg/dL Normal 8.6-10.4 [facility] Comment on above: Performed By: #### L IP, CDP, CP #### [facility] [address] [place], [place] 2322983 Systems Analyst Developer: Jesse Curry MD Chloride [Moles/Vol] 104 mmol/L Normal 98-107 [facility] Comment on above: Performed By: #### L IP, CDP, CP #### [facility] [address] [place], [place] [id number] Systems Analyst Developer: Jesse Curry MD CO2 [Moles/Vol] 22 mmol/L Normal 20-31 [facility] Comment on above: Performed By: #### L IP, CDP, CP #### [facility] [address] [place], [place] [address]83 Systems Analyst Developer: Jesse Curry MD Creatinine [Mass/Vol] 0.85 mg/dL Normal 0.50-0.90 [facility] Comment on above: Performed By: #### L IP, CDP, CP #### [facility] [address] [place], [place] 2302983 Systems Analyst Developer: Jesse Curry MD GFR/1.73 sq M.predicted among non-blacks MDRD (S/P/Bld) [Vol rate/Area] mL/min/{1.73_m2} Normal >60 [facility] Comment on above: Result Comment: Effective [...] By: #### L BJ BUCK, CP #### [address] [place] [address] Systems Analyst Developer: Jesse Curry MD Glucose [Mass/Vol] 109 mg/dL High 70-99 [facility] Comment on above: Performed By: #### L CIELO CDP, CP #### [facility] [address] [place] [address] [place] [address] Systems Analyst Developer: Jesse Curry MD Potassium [Moles/Vol] 4.0 mmol/L Normal 3.7-5.3 [facility] Comment on above: Performed By: #### L IP CDP, CP #### [address] [place] [address] Systems Analyst Developer: Jesse Curry MD Protein [Mass/Vol] 7.1 g/dL Normal 6.4-8.3 [facility] Comment on above: Performed By: #### L IP CDP, CP #### [facility] [address] [place] [address] [place] [address] Systems Analyst Developer: Jesse Curry MD Sodium [Moles/Vol] 138 mmol/L Normal 135-144 [facility] Comment on above: Performed By: #### L IP CDP, CP #### [address] [place] [address] Systems Analyst Developer: Jesse Curry MD Urea nitrogen [Mass/Vol] 26 mg/dL High 6-20 [facility] Comment on above: Performed By: #### L BJ BUCK, CP #### [facility] [address] [place] [address] Systems Analyst Developer: Jesse Curry MD HCG, ,Urineon 09-22 Beta HCG ( test) Ql (U) Negative Normal NEG [facility] Comment on above: Result Comment: Spec imens with hCG levels near the threshold of the test (25 mIU/mL) may give a negative or indeterminate result. In such cases, another test should be performed with a new specimen in 48-72 hours. If early is suspected clinically in this setting, correlation with quantitative serum b-hCG level is suggested. [facility] has confirmed the use of plasma for this test. This has not been cleared or approved by the U.[place]. Food and Drug Administration. The FDA has determined that such clearance is not necessary. Performed By: #### U HCG #### [facility] [address] [place] [address] Systems Analyst Developer: Jesse Curry MD Lactic Acidon 7411 Lactate [Moles/Vol] 1.8 mmol/L Normal 0.5-2.2 [facility] Comment on above: Performed By: #### L ACTIC #### [facility] [address] [place] [address] Systems Analyst Developer: Jesse Curry MD Lipaseon 0 Lipase [Catalytic activity/Vol] 39 U/L Normal 13-60 [facility] Comment on above: Performed By: #### L BJ BUCK, CP #### [facility] [address] [place] [address] Systems Analyst Developer: Jesse Curry MD UA w/Reflex Cultureon 2021 Bilirubin, SemiQt,Ur Negative Normal NEG [facility] Comment on above: Performed By: #### U MICAO, UAX #### [facility] [address] [place], [place] [id number] Systems Analyst Developer: Jesse Curry MD Blood, Urine Negative Normal NEG [facility] Comment on above: Performed By: #### U MICAO, UAX #### [facility] [address] [place], [place] 814[address]83 Systems Analyst Developer: Jesse Curry MD Clarity (U) Clear Normal CLEAR [facility] Comment on above: Performed By: #### U MICAO, UAX #### [facility] [address] [place], [place] [id number] Systems Analyst Developer: Jesse Curry MD Color (U) Yellow Normal YEL [facility] Comment on above: Performed By: #### U MICAO, UAX #### [address] [place], [place] [id number] Systems Analyst Developer: Jesse Curry MD Glucose Ql (U) Negative Normal NEG [facility] [employer] Comment on above: Performed By: #### U MICAO, UAX #### [address] [place], [place] 112[address]83 Systems Analyst Developer: Jesse Curry MD Ketones Ql (U) Negative Normal NEG [facility] [place] [facility] [employer] Comment on above: Performed By: #### U MICAO, UAX #### [facility] [address] [place] [address] Dr. [place], [place] [id number] Systems Analyst Developer: Jesse Curry MD Leukocyte esterase Test strip Ql (U) Negative Normal NEG [facility] Comment on above: Performed By: #### U MICAO, UAX #### [address] [place], [place] [id number] Systems Analyst Developer: Jesse Curry MD Nitrite,Ur Negative Normal NEG [facility] Comment on above: Performed By: #### U MICAO, UAX #### [facility] [address] [place] [address] Dr. [place], [place] [id number] Systems Analyst Developer: Jesse Curry MD PH,Ur 8.0 Normal 5.0-9.0 [facility] Comment on above: Performed By: #### U MICAO, UAX #### [facility] [address] [place] [address] Systems Analyst Developer: Jesse Curry MD Protein Ql (U) Negative Normal NEG [facility] Comment on above: Performed By: #### U MICAO, UAX #### [facility] [address] [place], [place] 5516183 Systems Analyst Developer: Jesse Curry MD Spec. [place],Ur 1.020 Normal 1.010-1.020 [facility] Comment on above: Performed By: #### U MICAO, UAX #### [facility] [address] [place] [address] Dr. Lawson, [id number] Systems Analyst Developer: Jesse Curry MD Urobilinogen,Ur Normal Normal NORM [facility] Comment on above: Performed By: #### U MICAO, UAX #### [address] [place], [id number] Systems Analyst Developer: Jesse Curry MD Urinalysis,Microon 2 Bacteria TRACE Abnormal NONE [facility] Comment on above: Performed By: #### U MICAO, UAX #### [facility] [address] [place], [id number] Systems Analyst Developer: Jesse Curry MD Epithelial cells LM Ql (Urine sed) 0 TO 2 Normal 0-25 [facility] Comment on above: Performed By: #### U MICAO, UAX #### [facility] [address] [place] [address] Systems Analyst Developer: Jesse Curry MD Urine RBC's None Normal 0-2 [facility] Comment on above: Performed By: #### U MICAO, UAX #### [facility] [address] [place], [place] [address]83 Systems Analyst Developer: Jesse Curry MD Urine WBC's 0 TO 2 Normal 0-5 [facility] Comment on above: Performed By: #### U MICAO, UAX #### [facility] [address] [place] [address] Systems Analyst Developer: Jesse Curry MD CBC AUTO DIFFon 02-20-2022 BASO # 0.1 103/ul Normal 0.0-0.1 [facility] Comment on above: Performed By: #### C BC #### [facility] [address] [place] [address] Dr. Claire Mayes Basophils/100 WBC (Bld) 0.8 % Normal 0.2-2.0 [facility] Comment on above: Performed By: #### C BC #### [facility] [address] [place] [address] Dr. Claire Mayes EO # 0.2 103/ul Normal 0.0-0.7 [facility] Comment on above: Performed By: #### C BC #### [facility] [address] [place] [address] Dr. Claire Mayes Eosinophils/100 WBC (Bld) 0.9 % Normal 0.9-7.0 [facility] Comment on above: Performed By: #### C BC #### [facility] [address] [place] [address] Dr. Claire Mayes Erythrocyte distribution width (RBC) [Ratio] 15.0 % Normal 11.0-15.0 [facility] Comment on above: Performed By: #### C BC #### [facility] [address] [place] [address] Dr. Claire Mayes Hematocrit (Bld) [Volume fraction] 31.3 % Critically low 36.0-48.0 [facility] Comment on above: Performed By: #### C BC #### [facility] [address] [place] [address] Dr. Claire Mayes Hemoglobin (Bld) [Mass/Vol] 10.3 g/dL Critically low 12.0-16.0 [facility] Comment on above: Performed By: #### C BC #### [facility] [address] [place] [address] Dr. Claire Mayes IG # 0.21 10e3/ul Critically high 0.00-0.03 [facility] Comment on above: Performed By: #### C BC #### [facility] [address] [place] [address] Dr. Claire Mayes IG % 1.3 % Critically high 0.0-0.5 [facility] Comment on above: Performed By: #### C BC #### [facility] [address] [place] [address] Dr. Claire Mayes LYMPH # 2.1 103/ul Normal 1.2-3.8 [facility] Comment on above: Performed By: #### C BC #### [facility] [address] [place] [address] Dr. Claire Mayes Lymphocytes/100 WBC (Bld) 12.6 % Critically low 20.5-60.0 [facility] Comment on above: Performed By: #### C BC #### [facility] [address] [place] [address] Dr. Claire Mayes MANUAL DIFF REQ NO Normal [facility] Comment on above: Performed By: #### C BC #### [facility] [address] [place] [address] Dr. Claire Mayes MCH (RBC) [Entitic mass] 29.8 pg Normal 26.7-34.0 [facility] Comment on above: Performed By: #### C BC #### [facility] [address] [place] [address] Dr. Claire Mayes MCHC (RBC) [Mass/Vol] 32.9 g/dL Normal 29.9-35.2 [facility] Comment on above: Performed By: #### C BC #### [facility] [address] [place] [address] Dr. Claire Mayes MCV (RBC) [Entitic vol] 90.5 fL Normal 81.0-99.0 [facility] Comment on above: Performed By: #### C BC #### [facility] [address] [place] [address] Dr. Claire Mayes MONO # 0.8 103/ul Normal 0.3-0.8 [facility] Comment on above: Performed By: #### C BC #### [facility] [address] [address] [address] Claire Mayes Monocytes/100 WBC (Bld) 5.1 % Normal 1.7-12.0 [facility] Comment on above: Performed By: #### C BC #### [facility] [address] [place] [address] Dr. Claire Mayes NEUT # 13.2 103/ul Critically high 1.4-6.5 [facility] Comment on above: Performed By: #### C BC #### [facility] [address] [place] [address] Dr. Claire Mayes Neutrophils/100 WBC (Bld) 79.3 % Critically high 43.0-75.0 [facility] Comment on above: Performed By: #### C BC #### [facility] [address] [place] [address] Dr. Claire Mayes Platelet mean volume (Bld) [Entitic vol] 10.4 fL Normal 9.5-13.5 [facility] Comment on above: Performed By: #### C BC #### [facility] [address] [place] [address] Dr. Claire Mayes PLT 233 103/ul Normal 150-450 [facility] Comment on above: Performed By: #### C BC #### [facility] [address] [place] [address] Dr. Claire Mayes RBC 3.46 106/ul Critically low 4.20-5.40 [facility] Comment on above: Performed By: #### C BC #### [facility] [address] [place] [address] Dr. Claire Mayes WBC 16.6 103/ul Critically high 4.0-11.0 [facility] Comment on above: Performed By: #### C BC #### [facility] [address] [address] [address] Claire Mayes CBC AUTO DIFFon 02-18-2022 BASO # 0.1 103/ul Normal 0.0-0.1 [facility] Comment on above: Performed By: #### C BC #### [facility] [address] [address] [address] Claire Mayes Basophils/100 WBC (Bld) 0.7 % Normal 0.2-2.0 [facility] Comment on above: Performed By: #### C BC #### [facility] [address] [address] [address] Claire Mayes EO # 0.2 103/ul Normal 0.0-0.7 [facility] Comment on above: Performed By: #### C BC #### [facility] [address] [place] [address] Dr. Claire Mayes Eosinophils/100 WBC (Bld) 1.2 % Normal 0.9-7.0 [facility] Comment on above: Performed By: #### C BC #### [facility] [address] [address] [address] Claire Mayes Erythrocyte distribution width (RBC) [Ratio] 15.0 % Normal 11.0-15.0 [facility] Comment on above: Performed By: #### C BC #### [facility] [address] [place] [address] Dr. Claire Mayes Hematocrit (Bld) [Volume fraction] 35.1 % Critically low 36.0-48.0 [facility] Comment on above: Performed By: #### C BC #### [facility] [address] [address] [address] Claire Mayes Hemoglobin (Bld) [Mass/Vol] 11.8 g/dL Critically low 12.0-16.0 [facility] Comment on above: Performed By: #### C BC #### [facility] [address] [address] [address] Claire Mayes IG # 0.30 10e3/ul Critically high 0.00-0.03 [facility] Comment on above: Performed By: #### C BC #### [facility] [address] [place] [address] Dr. Claire Mayes IG % 1.9 % Critically high 0.0-0.5 [facility] Comment on above: Performed By: #### C BC #### [facility] [address] [place] [address] Dr. Claire Mayes LYMPH # 2.9 103/ul Normal 1.2-3.8 [facility] Comment on above: Performed By: #### C BC #### [facility] [address] [place] [address] Dr. Claire Mayes Lymphocytes/100 WBC (Bld) 18.5 % Critically low 20.5-60.0 [facility] Comment on above: Performed By: #### C BC #### [facility] [address] [place] [address] Dr. Claire Mayes MANUAL DIFF REQ NO Normal [facility] Comment on above: Performed By: #### C BC #### [facility] [address] [place] [address] Dr. Claire Mayes MCH (RBC) [Entitic mass] 30.2 pg Normal 26.7-34.0 [facility] Comment on above: Performed By: #### C BC #### [facility] [address] [place] [address] Dr. Claire Mayes MCHC (RBC) [Mass/Vol] 33.6 g/dL Normal 29.9-35.2 [facility] Comment on above: Performed By: #### C BC #### [facility] [address] [place] [address] Dr. Claire Mayes MCV (RBC) [Entitic vol] 89.8 fL Normal 81.0-99.0 [facility] Comment on above: Performed By: #### C BC #### [facility] [address] [place] [address] Dr. lCaire Mayes MONO # 0.7 103/ul Normal 0.3-0.8 [facility] Comment on above: Performed By: #### C BC #### [facility] [address] [place] [address] Dr. Claire Mayes Monocytes/100 WBC (Bld) 4.7 % Normal 1.7-12.0 [facility] Comment on above: Performed By: #### C BC #### [facility] [address] [place] [address] Dr. Claire Mayes NEUT # 11.3 103/ul Critically high 1.4-6.5 [facility] Comment on above: Performed By: #### C BC #### [facility] [address] [place] [address] Dr. Claire Mayes Neutrophils/100 WBC (Bld) 73.0 % Normal 43.0-75.0 [facility] Comment on above: Performed By: #### C BC #### [facility] [address] [place] [address] Dr. Claire Mayes Platelet mean volume (Bld) [Entitic vol] 10.8 fL Normal 9.5-13.5 [facility] Comment on above: Performed By: #### C BC #### [facility] [address] [place] [address] Dr. Claire Mayes PLT 233 103/ul Normal 150-450 [facility] Comment on above: Performed By: #### C BC #### [facility] [address] [place] [address] Dr. Claire Mayes RBC 3.91 106/ul Critically low 4.20-5.40 [facility] Comment on above: Performed By: #### C BC #### [facility] [address] [place] [address] Dr. Claire Mayes WBC 15.5 103/ul Critically high 4.0-11.0 [facility] Comment on above: Performed By: #### C BC #### [facility] [address] [place] [address] Dr. Claire Mayes [facility]on SARS-CoV-2 (COVID-19) RNA FERDINAND+probe Ql (Unsp spec) Not detected Normal NOT DETECTED [facility] Comment on above: Result Comment: When [...] for this test is supported by the [place] of Health and Human Service's declaration that [...] used). Performed By: #### C VDTBH #### [facility] [address] [place] [address] Dr. Claire Mayes DRUG SCREEN RAPID (URINE)on 02-18-2022 AMP Negative Normal NEGATIVE [facility] Comment on above: Performed By: #### D RUGRPD #### [facility] [address] [place] [address] Dr. Claire Mayes BAR Negative Normal NEGATIVE [facility] Comment on above: Performed By: #### D RUGRPD #### [facility] [address] [place] [address] Dr. Claire Mayes BUP Negative Normal NEGATIVE [facility] Comment on above: Performed By: #### D RUGRPD #### [facility] [address] [place] [address] Dr. Claire Mayes BZO Negative Normal NEGATIVE [facility] Comment on above: Performed By: #### D RUGRPD #### [facility] [address] [place] [address] Dr. Claire Mayes KIT Negative Normal NEGATIVE [facility] Comment on above: Performed By: #### D RUGRPD #### [facility] [address] [place] [address] Dr. Claire Mayes CUT-OFFS SEE BELOW Normal [facility] Comment on above: Result Comment: AMP [...] ng/mL Performed By: #### D RUGRPD #### [facility] [address] [place] [address] Dr. Claire Mayes DRUG CUT HEADER DRUG CLASS TEST SYST EM CUT-OFF CONCENTRATIONS ARE FOLLOWS: Normal [facility] Comment on above: Performed By: #### D RUGRPD #### [facility] [address] [place] [address] Dr. Claire Mayes mAMP Negative Normal NEGATIVE [facility] Comment on above: Performed By: #### D RUGRPD #### [facility] [address] [place] [address] Dr. Claire Mayes MTD Negative Normal NEGATIVE [facility] Comment on above: Performed By: #### D RUGRPD #### [facility] [address] [place] [address] Dr. Claire Mayes OPI Negative Normal NEGATIVE [facility] Comment on above: Performed By: #### D RUGRPD #### [facility] [address] [place] [address] Dr. Claire Mayes OXY Negative Normal NEGATIVE [facility] Comment on above: Performed By: #### D RUGRPD #### [facility] [address] [place] [address] Dr. Claire Mayes PCP Negative Normal NEGATIVE [facility] Comment on above: Performed By: #### D RUGRPD #### [facility] [address] [place] [address] Dr. Claire Mayes PPX Negative Normal NEGATIVE [facility] Comment on above: Performed By: #### D RUGRPD #### [facility] [address] [address] [address] Claire Mayes TCA Negative Normal NEGATIVE [facility] Comment on above: Performed By: #### D RUGRPD #### [facility] [address] [address] [address] Claire Mayes THC Negative Normal NEGATIVE [facility] Comment on above: Performed By: #### D RUGRPD #### [facility] [address] [address] [address] Claire Mayes TYPE AND SCREENon 02-18-2022 TYPE AND SCREEN Negative Normal [facility] Comment on above: Performed By: #### T NS #### [facility] [address] [address] [address] Claire Mayes US PREG BIOPHY W [...] JESSE THOMAS Date: 2022-02-17 14:27 Normal [facility] US PREG BIOPHY W NON STRESSo [...] by: BLU FELIPE Date: 2022-02-10 16:40 Normal [facility] GROUP B STREP CULTUREon 01-14 S. agalactiae Ag Ql (Unsp spec) Culture Observations: Beta Strep called to Belgica Lange at office 02/04/22 @[address] [place] [address] Isolate 1 Streptococcus agalactiae Heavy growth of ORGANISM 1 Streptococcus agalactiae ANTIBIOTIC M.I.C RX STATUS Benzylpenicillin <=0.06 S F Ampicillin <=0.25 S F Cefotaxime <=0.12 S F Ceftriaxone <=0.12 S F Levofloxacin 0.5 S F Erythromycin 2 R F Clindamycin <=0.25 S F Linezolid <=2 S F Vancomycin 0.5 S F Tetracycline >=16 R F Normal [facility] Comment on above: Performed By: #### G BSCX #### [facility] [address] [place] [address] Dr. 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 Verbal consent obtained for telemedicine visit. 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 Hx: LMP: 05/29/21 Menstrual cycles: Have been fairly regular for the past 3 months; 30-35 days Pap smear: 2019, up to date Mammogram: None PMH/Surg Hx/Social Hx: See below Hx of Clotting disorders: Yes- Protein S deficiency Currently on Lovenox 40 mg daily Was on Lovenox 60 mg daily prior to Needs to be on therapeutic dosing when Genetic Screening Hx: [employer] screen negative Partner History: Franklin Ashley 04/09/1990 SA in past year: 2.8 cc 125 mil/mL 69% motility MHD=694 million (recent IUI sample) Morph from original SA was 2.8% Active Problems Problems 16 weeks gest (more content not included)... Normal [employer] CBC AND DIFFERENTIALon 08-06 % AUTOMATED IMMATURE GRAN 0.3 % Normal 0.0 - 0.9 [facility] Comment on above: Result Comment: Graciela ture Granulocyte Count (IG) includes promyelocytes, myelocytes and metamyelocytes but does not include bands. Percent differential counts (%) should be interpreted in the context of the absolute cell counts (cells/L). Performed By: #### C BCDF #### [address] [place] [address] Basophils (Bld) [#/Vol] 0.09 10*3/uL Normal 0.00 - 0.10 [facility] Comment on above: Performed By: #### C BCDF #### [address] [place] [address] Basophils/100 WBC (Bld) 0.9 % Normal 0.0 - 2.0 [facility] Comment on above: Performed By: #### C BCDF #### [address] [place] [address] Eosinophils (Bld) [#/Vol] 0.23 10*3/uL Normal 0.00 - 0.70 [facility] Comment on above: Performed By: #### C BCDF #### [address] [place] [address] Eosinophils/100 WBC (Bld) 2.4 % Normal 0.0 - 6.0 [facility] Comment on above: Performed By: #### C BCDF #### [address] [place] [address] Erythrocyte distribution width (RBC) [Ratio] 14.3 % Normal 11.5 - 14.5 [facility] Comment on above: Performed By: #### C BCDF #### [address] [place] [address] Hematocrit (Bld) [Volume fraction] 40.4 % Normal 36.0 - 46.0 [facility] Comment on above: Performed By: #### C BCDF #### [address] [place] [address] Hemoglobin (Bld) [Mass/Vol] 12.9 g/dL Normal 12.0 - 16.0 [facility] Comment on above: Performed By: #### C BCDF #### [address] [place] [address] Lymphocytes (Bld) [#/Vol] 2.44 10*3/uL Normal 1.20 - 4.80 [facility] Comment on above: Performed By: #### C BCDF #### [address] [place] [address] Lymphocytes/100 WBC (Bld) 25.7 % Normal 13.0 - 44.0 [facility] Comment on above: Performed By: #### C BCDF #### [address] [place] [address] MCHC (RBC) [Mass/Vol] 31.9 g/dL Low 32.0 - 36.0 [facility] Comment on above: Performed By: #### C BCDF #### [address] [place] [address] MCV (RBC) [Entitic vol] 88 fL Normal 80 - 100 [facility] Comment on above: Performed By: #### C BCDF #### [address] [place] [address] Monocytes (Bld) [#/Vol] 0.55 10*3/uL Normal 0.10 - 1.00 [facility] Comment on above: Performed By: #### C BCDF #### [address] [place] [address] Monocytes/100 WBC (Bld) 5.8 % Normal 2.0 - 10.0 [facility] Comment on above: Performed By: #### C BCDF #### [address] [place] [address] Neutrophils (Bld) [#/Vol] 6.15 10*3/uL Normal 1.20 - 7.70 [facility] Comment on above: Performed By: #### C BCDF #### [address] [place] [address] Neutrophils/100 WBC (Bld) 64.9 % Normal 40.0 - 80.0 [facility] Comment on above: Performed By: #### C BCDF #### [address] [place] [address] Platelets (Bld) [#/Vol] 410 10*3/uL Normal 150 - 450 [facility] Comment on above: Performed By: #### C BCDF #### [address] [place] [address] RBC (Bld) [#/Vol] 4.58 x10E12/L Normal 4.00 - 5.20 [facility] Comment on above: Performed By: #### C BCDF #### [address] [place] [address] WBC (Bld) [#/Vol] 9.5 10*3/uL Normal 4.4 - 11.3 [facility] Comment on above: Performed By: #### C BCDF #### [address] [place] [address] [employer]KER - Visiton 08-06-2020 PAT[employer]KER - Visit Chief Complaint The patient is [...] with LMWH and has follow-up with her Brine Maker 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 Reports her asthma is stable. [...] or homicidal ideation Vitals Vital Signs Recorded: [id number] 01:08PM Heart Rate62 Qhghczns140 Mxufwlenf66 Height5 ft 2 in Cylciy445 lb BMI Fudxaqpjje73.28 BSA Calculated1.79 Tobacco Useb) No Fall Screeninga) [...] ongoing well-woman care with her current local Bridge Tender. She has Hematology follow-up today following our [...] WBC (Bld) 0.5 % 0.0 - 2.0 QI-BUUPV-Mlqxw[address] Work Phone: Eosinophils (Bld) [#/Vol] 0.24 {x10E9/L} See Below QH-XMWKD-Axkti[address] Work Phone: Comment on above: Reference Range: 0.0 0 - 0.70 Eosinophils/100 WBC (Bld) 1.1 % 0.0 - 6.0 NX-FVYVK-Ckven[address] Work Phone: Erythrocyte distribution width (RBC) [Ratio] 15.0 % above high threshold See Below XK-UMGJU-Vawuq[address] Work Phone: Comment on above: Reference Range: 11. 5 - 14.5 Hematocrit (Bld) [Volume fraction] 30.0 % below low threshold See Below JA-EFLVK-Ehkdt[address] Work Phone: Comment on above: Reference Range: 36. 0 - 46.0 Hemoglobin (Bld) [Mass/Vol] 9.8 g/dL below low threshold See Below RM-MKOTK-Cjorq[address] Work Phone: Comment on above: Reference Range: 12. 0 - 16.0 Lymphocytes (Bld) [#/Vol] 2.25 {x10E9/L} See Below QM-EHJNT-Nvyne wn 2nd Fl Work Phone: Comment on above: Reference Range: 1.2 0 - 4.80 Lymphocytes/100 WBC (Bld) 10.4 % See Below UW-MUTIP-Tzrdh wn 2nd Fl Work Phone: Comment on above: Reference Range: 13. 0 - 44.0 MCHC (RBC) [Mass/Vol] 32.7 g/dL See Below KT-BUOOI-Kfmci wn 2nd Fl Work Phone: Comment on above: Reference Range: 32. 0 - 36.0 MCV (RBC) [Entitic vol] 91 fL 80 - 100 PY-TCXRW-Rzzhn wn 2nd Fl Work Phone: Monocytes (Bld) [#/Vol] 0.84 {x10E9/L} See Below ZD-JTPOV-Tjzni wn 2nd Fl Work Phone: Comment on above: Reference Range: 0.1 0 - 1.00 Monocytes/100 WBC (Bld) 3.9 % 2.0 - 10.0 RN-VPREK-Vdrjt wn 2nd Fl Work Phone: Neutrophils/100 WBC (Bld) 82.7 % See Below ZG-MYETP-Rvyox wn 2nd Fl Work Phone: Comment on above: Reference Range: 40. 0 - 80.0 Platelets (Bld) [#/Vol] 225 {x10E9/L} 150 - 450 EG-WDMWH-Cdrvs wn 2nd Fl Work Phone: RBC (Bld) [#/Vol] 3.31 {x10E12/L} below low threshold See Below AL-MSFML-Soghl wn 2nd Fl Work Phone: Comment on above: Reference Range: 4.0 0 - 5.20 WBC (Bld) [#/Vol] 0.0 {/100_WBC} 0.0-0.0 MG- OBGYN[address] Fl Work Phone: WBC (Bld) [#/Vol] 21.6 {x10E9/L} above high threshold 4.4 - 11.3 YE-JIBKE-Snfpf[address] Work Phone: Complete Blood Count + Differential 0.11 {x10E9/L} above high threshold See Below AB-VOGPS-Rqnry[address] Work Phone: Comment on above: Reference Range: 0.0 0 - 0.10 Complete Blood Count + Differential 1.4 % above high threshold 0.0 - 0.9 FY-RJDTG-Jcffm[address] Work Phone: Comment on above: Immature Granulocyte Count (IG) includes promyelocytes, myelocytes and metamyelocytes but does not include bands. Percent differential counts (%) should be interpreted in the context of the absolute cell counts (cells/L). Complete Blood Count + Differential 17.85 {x10E9/L} above high threshold See Below SW-TPYIS-Mcopl[address] Work Phone: Comment on above: Reference Range: 1.2 0 - 7.70 Hematologyon 06-26-2020 Hematocrit (Bld) [Volume fraction] 30.5 % below low threshold See Below FU-QIYJP-Ubcbp[address] Work Phone: Comment on above: Reference Range: 36. 0 - 46.0 Hemoglobin (Bld) [Mass/Vol] 10.7 g/dL below low threshold See Below MI-PEGNS-Sdmuv[address] Work Phone: Comment on above: Reference Range: 12. 0 - 16.0 MCV (RBC) [Entitic vol] 84 fL 80 - 100 PR-BHWPN-Lbzuo[address] Work Phone: Platelets (Bld) [#/Vol] 258 {x10E9/L} 150 - 450 DO-XFHJM-Qkmoy[address] Work Phone: RBC (Bld) [#/Vol] 3.62 {x10E12/L} below low threshold See Below NU-JAGID-Cbtaz 2nd Fl Work Phone: Comment on above: Reference Range: 4.0 0 - 5.20 WBC (Bld) [#/Vol] 0.0 {/100_WBC} 0.0-0.0 MG- OBGYN-Midto 2nd Fl Work Phone: WBC (Bld) [#/Vol] 35.7 {x10E9/L} above high threshold 4.4 - 11.3 AR-WZVYY-Stldt 2nd Fl Work Phone: Otheron 06-26-2020 Erythrocyte distribution width (RBC) [Ratio] 14.6 % above high threshold See Below FM-BSIJB-Yelfv 2nd Fl Work Phone: Comment on above: Reference Range: 11. 5 - 14.5 MCHC (RBC) [Mass/Vol] 35.1 g/dL See Below NN-JBZST-Wtkfw wn 2nd Fl Work Phone: Comment on [...] FIBRINDEPOSITION. Electronically Signed Out By ALEX ODELL MD/BOBOBy the signature on this report, the individual [...] 3.5 cm, located 1.0 cm from themargin. Coremaker Helper sections are submitted in 5 cassettes.AXQ/LMPSummary of Cassettes:Specimen Label SiteA 1 umbilical cord sections 2 membrane rolls 3 placental parenchyma, umbilical cord insertion site 4 placental parenchyma 5 placental parenchyma, lesionaxq/06/26/2020 AF-GLIET-Igejz 2nd Or Work Phone: Coronavirus 2019 RNA by PCR, Symptomaticon 06-25-2020 Coronavirus 2019 RNA by PCR, Symptomatic NOT DETECTED See Below IA-FFWII-Mmyzh 2nd Or Work Phone: Comment on above: SOURCE: Nasal, [...] this test method. Fact sheet for providers: www.fda.gov/media/140509/downloadFact sheet for patients: www.fda.gov/media/942556/downloadThis test has received FDA Emergency Use Authorization (EUA) and has been verified by [facility] ([facility]). This test is only authorized for the duration of time that circumstances exist to justify the authorization of the emergency use of in vitro diagnostic tests for the detection of SARS-CoV-2 virus and/or diagnosis of COVID-19 infection under section 564(b)(1) of the Act, 21 U.S.C. 360bbb-3(b)(1), unless the authorization is terminated or revoked sooner. [facility] is certified under CLIA-88 as qualified to perform high complexity testing. Testing is performed in the [facility] laboratories located at [address] [place] [address]. Hematologyon 06-25-2020 ABO group Nom (Bld) A [address] Work Phone: Blood group antibody screen Ql Negative [address] Work Phone: Hematocrit (Bld) [Volume fraction] 34.7 % below low threshold See Below [address] Work Phone: Comment on above: Reference Range: 36. 0 - 46.0 Hemoglobin (Bld) [Mass/Vol] 11.6 g/dL below low threshold See Below EP-GGKAG-Mvlli[address] Work Phone: Comment on above: Reference Range: 12. 0 - 16.0 MCV (RBC) [Entitic vol] 90 fL 80 - 100 XG-ZANWY-Qkkzn[address] Work Phone: Platelets (Bld) [#/Vol] 268 {x10E9/L} 150 - 450 BE-FRJUJ-Mklta[address] Work Phone: RBC (Bld) [#/Vol] 3.85 {x10E12/L} below low threshold See Below CX-YXNQZ-Jeren[address] Work Phone: Comment on above: Reference Range: 4.0 0 - 5.20 Rh immune globulin screen (Bld) [Interp] Positive CC-IFLBO-Iknjo[address] Work Phone: WBC (Bld) [#/Vol] 0.0 {/100_WBC} 0.0-0.0 - OBGYN[address] Work Phone: WBC (Bld) [#/Vol] 15.5 {x10E9/L} above high threshold 4.4 - 11.3 RE-XNVBX-Borne[address] Work Phone: Otheron 06-25-2020 Erythrocyte distribution width (RBC) [Ratio] 14.4 % See Below HZ-HYFIM-Zwscz[address] Work Phone: Comment on above: Reference Range: 11. 5 - 14.5 MCHC (RBC) [Mass/Vol] 33.4 g/dL See Below HB-GQSJA-Hjuvr[address] Work Phone: Comment on above: Reference Range: 32. 0 - 36.0 SYPHILIS SCREENING WITH REFL [facility] 06-25-2020 T. pallidum IgG+IgM IA Ql (S) NONREACTIVE See Below RJ-UZREU-Rbjtw[address] Work Phone: Comment on above: SOURCE: Reference Ra nge: NONREACTIVENo significant level of Treponema pallidum antibody detected. Repeat testing in 2 to 4 weeks may be considered if early infection or incubating syphilis infection is suspected. Imm/Pathon 06-07-2020 Bacteria identified Aer cx Nom (Genital specimen) PATIENT: KIARA [place]SHLEY [place] [facility] [place] [id number] : 89 AGE: SEX: F ORDERED BY: PARAS GUEVARA: VAGINAL COLLECTED: 06/07/20 09:36ANTIBIOTICS AT [facility].: RECEIVED : 06/08/20 07:27SITE: VAGINAL R E S U L T S GROUP B STREP SCREEN PRELIM 06/09/20 08:35 CULTURE IN PROGRESS. EE-WINVK-IJJ [address] [place] Work Phone: Bacteria identified Aer cx Nom (Genital specimen) PATIENT: KIARA ASHLEY [place] [facility] [place] [id number] : 89 AGE: SEX: F ORDERED BY: PARAS GUEVARA: VAGINAL COLLECTED: 06/07/20 09:36ANTIBIOTICS AT [facility].: RECEIVED : 06/08/20 07:27SITE: VAGINAL R E S U L T S GROUP B STREP SCREEN FINAL 06/10/20 11:54 NEGATIVE FOR GROUP B BETA STREP. NS-MMKIE-Xpckj wn 2nd Fl Work Phone: Otheron 06-07-2020 [...] growth-No malformations were identified on a limited survey-[facility] 06/22 The patient is aware of [...] signed by: RILEY TREVIÑO 06/07/20 09:33 Normal KE-HVXNY-LZG [address] [place] Work Phone: Comment on above: ORDER REVISED TO A O B FOLLOW UP OR REPEAT SCAN BY RADIOLOGIST; Original Order Number: [id number] CBC AND DIFFERENTIALon 04-24 % AUTOMATED IMMATURE GRAN 1.9 % High 0.0 - 0.9 [facility] Comment on above: Result Comment: Graciela ture Granulocyte Count (IG) includes promyelocytes, myelocytes and metamyelocytes but does not include bands. Percent differential counts (%) should be interpreted in the context of the absolute cell counts (cells/L). Performed By: #### C BCDF #### [address] [place] [address] Basophils (Bld) [#/Vol] 0.08 10*3/uL Normal 0.00 - 0.10 [facility] Comment on above: Performed By: #### C BCDF #### [address] [place] [address] Basophils/100 WBC (Bld) 0.5 % Normal 0.0 - 2.0 [facility] Comment on above: Performed By: #### C BCDF #### [address] [place] [address] Eosinophils (Bld) [#/Vol] 0.22 10*3/uL Normal 0.00 - 0.70 [facility] Comment on above: Performed By: #### C BCDF #### [address] [place] [address] Eosinophils/100 WBC (Bld) 1.5 % Normal 0.0 - 6.0 [facility] Comment on above: Performed By: #### C BCDF #### [address] [place] [address] Erythrocyte distribution width (RBC) [Ratio] 14.0 % Normal 11.5 - 14.5 [facility] Comment on above: Performed By: #### C BCDF #### [address] [place] [address] Hematocrit (Bld) [Volume fraction] 35.6 % Low 36.0 - 46.0 [facility] Comment on above: Performed By: #### C BCDF #### [address] [place] [address] Hemoglobin (Bld) [Mass/Vol] 11.8 g/dL Low 12.0 - 16.0 [facility] [place] Comment on above: Performed By: #### C BCDF #### [address] [place] [address] Lymphocytes (Bld) [#/Vol] 2.38 10*3/uL Normal 1.20 - 4.80 [facility] [place] Comment on above: Performed By: #### C BCDF #### [address] [place] [address] Lymphocytes/100 WBC (Bld) 16.0 % Normal 13.0 - 44.0 [facility] Comment on above: Performed By: #### C BCDF #### [address] [place] [address] MCHC (RBC) [Mass/Vol] 33.1 g/dL Normal 32.0 - 36.0 [facility] Comment on above: Performed By: #### C BCDF #### [address] [place] [address] MCV (RBC) [Entitic vol] 92 fL Normal 80 - 100 [facility] [place] Comment on above: Performed By: #### C BCDF #### [address] [place] [address] Monocytes (Bld) [#/Vol] 0.74 10*3/uL Normal 0.10 - 1.00 [facility] [place] Comment on above: Performed By: #### C BCDF #### [address] [place] [address] Monocytes/100 WBC (Bld) 5.0 % Normal 2.0 - 10.0 [facility] [place] Comment on above: Performed By: #### C BCDF #### [address] [place] [address] Neutrophils (Bld) [#/Vol] 11.17 10*3/uL High 1.20 - 7.70 [facility] [place] Comment on above: Performed By: #### C BCDF #### [address] [place] [address] Neutrophils/100 WBC (Bld) 75.1 % Normal 40.0 - 80.0 [facility] [place] Comment on above: Performed By: #### C BCDF #### [address] [place] [address] Platelets (Bld) [#/Vol] 285 10*3/uL Normal 150 - 450 [facility] [place] Comment on above: Performed By: #### C BCDF #### [address] [place] [address] RBC (Bld) [#/Vol] 3.89 x10E12/L Low 4.00 - 5.20 [facility] Comment on above: Performed By: #### C BCDF #### [address] [place] [address] WBC (Bld) [#/Vol] 14.9 10*3/uL High 4.4 - 11.3 [facility] Comment on above: Performed By: #### C BCDF #### [address] [place] [address] COMPREHENSIVE PANELon 2019 ALP [Catalytic activity/Vol] 79 U/L Normal 33 - 110 [facility] [place] Comment on above: Performed By: #### C MP #### [address] [place] [address] [place] [address] ALT [Catalytic activity/Vol] 7 U/L Normal 7 - 45 [facility] Comment on above: Result Comment: Melida ents treated with Sulfasalazine may generate falsely decreased results for ALT. Performed By: #### C MP #### [address] [place] [address] [place] [address] AST [Catalytic activity/Vol] 13 U/L Normal 9 - 39 [facility] Comment on above: Performed By: #### C MP #### [address] [place] [address] [place] [address] Bilirubin [Mass/Vol] 0.3 mg/dL Normal 0.0 - 1.2 [facility] Comment on above: Performed By: #### C MP #### [address] [place] [address] [place] [address] Protein [Mass/Vol] 5.9 g/dL Low 6.4 - 8.2 [facility] [place] Comment on above: Performed By: #### C MP #### [address] [place] [address] [place] [address] Anion gap [Moles/Vol] 12 mmol/L Normal 10 - 20 [facility] Comment on above: Performed By: #### C MP #### [address] [place] [address] [place] [address] Chloride [Moles/Vol] 106 mmol/L Normal 98 - 107 [facility] Comment on above: Performed By: #### C MP #### [address] [place] [address] [place] [address] Potassium [Moles/Vol] 3.7 mmol/L Normal 3.5 - 5.3 [facility] Comment on above: Performed By: #### C MP #### [address] [place] [address] [place] [address] Sodium [Moles/Vol] 137 mmol/L Normal 136 - 145 [facility] Comment on above: Performed By: #### C MP #### [address] [place] [address] [place] [address] Calcium [Mass/Vol] 9.2 mg/dL Normal 8.6 - 10.3 [facility] Comment on above: Performed By: #### C MP #### [address] [place] [address] [place] [address] Glucose [Mass/Vol] 95 mg/dL Normal 74 - 99 [facility] Comment on above: Performed By: #### C MP #### [address] [place] [address] [place] [address] Urea nitrogen [Mass/Vol] 7 mg/dL Normal 6 - 23 [facility] Comment on above: Performed By: #### C MP #### [address] [place] [address] [place] [address] Albumin [Mass/Vol] 3.4 g/dL Normal 3.4 - 5.0 [facility] Comment on above: Performed By: #### C MP #### [address] [place] [address] [place] [address] Creatinine [Mass/Vol] 0.70 mg/dL Normal 0.50 - 1.05 [facility] Comment on above: Performed By: #### C MP #### [address] [place] [address] [place] [address] GFR- AM. >60 Normal >60 [facility] Comment on above: Result Comment: CALC ULATIONS OF ESTIMATED GFR ARE PERFORMED USING THE MDRD STUDY EQUATION FOR THE IDMS-TRACEABLE CREATININE METHODS. CLIN CHEM 2007;53:766-72 Performed By: #### C MP #### [address] [place] [address] [place] [address] GFR-NON AM. >60 Normal >60 [facility] Comment on above: Performed By: #### C MP #### [address] [place] [address] [place] [address] HCO3 (Bld) [Moles/Vol] 23 mmol/L Normal 21 - 32 [facility] Comment on above: Performed By: #### C MP #### [address] [place] [address] [place] [address] FERRITINon 04-24-2020 Ferritin [Mass/Vol] 8 ug/L Normal 8 - 150 [facility] Comment on above: Performed By: #### F ERRI #### [address] [place] [address] IRON + TIBCon 04-24-2020 % SATURATION 14 % Low 25 - 45 [facility] Comment on above: Performed By: #### I RONT #### [address] [place] [address] Iron [Mass/Vol] 65 ug/dL Normal 35 - 150 [facility] Comment on above: Performed By: #### I RONT #### [address] [place] [address] TIBC 449 ug/dL High 240 - 445 [facility] Comment on above: Performed By: #### I RONT #### [address] [place] [address] Complete Blood Count + Diffe rentialon 12-25-2019 Basophils/100 WBC (Bld) 1.0 % 0.0 - 2.0 DV-UCTSQ-PMX [address] [place] Work Phone: Eosinophils (Bld) [#/Vol] 0.37 {x10E9/L} See Below SG-VYKGN-ZLY [address] [place] Work Phone: Comment on above: Reference Range: 0.0 0 - 0.70 Eosinophils/100 WBC (Bld) 3.0 % 0.0 - 6.0 NA-VPOED-FWK [address] [place] Work Phone: Erythrocyte distribution width (RBC) [Ratio] 13.4 % See Below CL-GEHQN-ZZZ [address] [place] Work Phone: Comment on above: Reference Range: 11. 5 - 14.5 Hematocrit (Bld) [Volume fraction] 41.8 % See Below VR-SHKZE-XML [address] [place] Work Phone: Comment on above: Reference Range: 36. 0 - 46.0 Hemoglobin (Bld) [Mass/Vol] 13.6 g/dL See Below DZ-YJOTH-SBF [address] [place] Work Phone: Comment on above: Reference Range: 12. 0 - 16.0 Lymphocytes (Bld) [#/Vol] 2.52 {x10E9/L} See Below MM-EDUNL-IXI [address] [place] Work Phone: Comment on above: Reference Range: 1.2 0 - 4.80 Lymphocytes/100 WBC (Bld) 20.2 % See Below SI-NSTRI-KIW [address] [place] Work Phone: Comment on above: Reference Range: 13. 0 - 44.0 MCHC (RBC) [Mass/Vol] 32.5 g/dL See Below BL-OQVAZ-FMC [address] [place] Work Phone: Comment on above: Reference Range: 32. 0 - 36.0 MCV (RBC) [Entitic vol] 95 fL 80 - 100 TQ-UUHMD-IRW [address] [place] Work Phone: Monocytes (Bld) [#/Vol] 0.58 {x10E9/L} See Below QG-QWTCT-GYJ [address] [place] Work Phone: Comment on above: Reference Range: 0.1 0 - 1.00 Monocytes/100 WBC (Bld) 4.6 % 2.0 - 10.0 ZZ-BNUUZ-IIN [address] [place] Work Phone: Neutrophils/100 WBC (Bld) 70.6 % See Below OH-VETXV-JOL [address] [place] Work Phone: Comment on above: Reference Range: 40. 0 - 80.0 Platelets (Bld) [#/Vol] 372 {x10E9/L} 150 - 450 QP-RIXIW-DCZ [address] [place] Work Phone: RBC (Bld) [#/Vol] 4.40 {x10E12/L} See Below MG -OBGYN-MAC [address] [place] Work Phone: Comment on above: Reference Range: 4.0 0 - 5.20 WBC (Bld) [#/Vol] 0.0 {/100_WBC} 0.0-0.0 MG- OBGYN-MAC [address] [place] Work Phone: WBC (Bld) [#/Vol] 12.7 {x10E9/L} above high threshold 4.4 - 11.3 NQ-DDMLK-AZG [address] [place] Work Phone: Comment on above: SOURCE: Complete Blood Count + Differential 8.81 {x10E9/L} above high threshold See Below LA-KMZPO-HWL [address] [place] Work Phone: Comment on above: Reference Range: 1.2 0 - 7.70 Complete Blood Count + Differential 0.6 % 0.0 - 0.9 LT-UNFHZ-ACH [address] [place] Work Phone: Comment on above: Percent differential counts (%) should be interpreted in the context of the absolute cell counts (cells/L). Complete Blood Count + Differential 0.13 {x10E9/L} above high threshold See Below XY-NIEPV-XRD [address] [place] Work Phone: Comment on above: Reference Range: 0.0 0 - 0.10 Cult, Urineon 12-25-2019 Bacteria identified Cx Nom (U) PATIENT: KIARA ASHLEY LOCATION: [facility] [place] BILL#: [id number] : 89 AGE: SEX: F ORDERED BY: PARAS GUEVARA: URINE COLLECTED: 12/25/19 09:41ANTIBIOTICS AT [facility].: RECEIVED : 12/25/19 17:06SITE: Clean Catch/Voided R E S U L T S URINE CULTURE,BACTERIAL FINAL 12/26/19 10:21 NO SIGNIFICANT GROWTH. OK-QOQTZ-MZC [address] [place] Work Phone: Hematologyon 12-25-2019 ABO group Nom (Bld) A DZ-CDZIF-FLT [address] [place] Work Phone: Blood group antibody screen Ql Negative UL-BPSAO-NZD [address] [place] Work Phone: Rh immune globulin screen (Bld) [Interp] Positive RU-AWBVC-AGZ [address] [place] Work Phone: Hepatitis B Surface Antigeno n 12-25-2019 Hepatitis B Surface Antigen NONREACTIVE See Below CA-FTZYA-ZGV [address] [place] Work Phone: Comment on above: [...] Hepatitis C Antibody Test NON-REACTIVE See Below SW-POYGY-JKO [address] [place] Work Phone: Comment on above: SOURCE: Reference Ra nge: NONREACTIVE Patients receiving more than 5 mg/day of biotin may have interference in test results. A sample should be taken no sooner than eight hours after previous dose. Contact the testing laboratory for additional information. Metabolic Panelon 12-25-2019 ALP [Catalytic activity/Vol] 67 U/L 33 - 110 FF-SRXHV-VPX [address] [place] Work Phone: Anion gap [Moles/Vol] 15 mmol/L 10 - 20 WN-GPLYK-OHH [address] [place] Work Phone: Bilirubin [Mass/Vol] 0.3 mg/dL 0.0 - 1.2 FO-LXFRX-CKF [address] [place] Work Phone: Calcium [Mass/Vol] 9.6 mg/dL 8.6 - 10.6 BM-ZCWKW-WLN [address] [place] Work Phone: Chloride [Moles/Vol] 104 mmol/L 98 - 107 MI-BAYTZ-LKB [address] [place] Work Phone: CO2 [Moles/Vol] 21 mmol/L 21 - 32 MG-OBGYN- MAC [address] [place] Work Phone: Creatinine [Mass/Vol] 0.69 mg/dL See Below AI-RWORH-ZVY [address] [place] Work Phone: Comment on above: Reference Range: 0.5 0 - 1.05 Glucose [Mass/Vol] 83 mg/dL 74 - 99 TW-WQHRM-KFT [address] [place] Work Phone: Comment on above: SOURCE: Potassium [Moles/Vol] 4.1 mmol/L 3.5 - 5.3 WA-JTKPB-EZJ [address] [place] Work Phone: Protein [Mass/Vol] 6.2 g/dL below low threshold 6.4 - 8.2 QT-ESYGK-NQU [address] [place] Work Phone: Sodium [Moles/Vol] 136 mmol/L 136 - 145 NV-MWRXB-MFF [address] [place] Work Phone: Urea nitrogen [Mass/Vol] 9 mg/dL 6 - 23 OL-XXMHP-YFQ [address] [place] Work Phone: Otheron 12-25-2019 Albumin BCP dye [Mass/Vol] 3.9 g/dL 3.4 - 5.0 QE-CIFEM-KQF [address] [place] Work Phone: ALT With P-5'-P [Catalytic activity/Vol] 8 U/L 7 - 45 GO-XHPEJ-QFI [address] [place] Work Phone: Comment on above: Patients treated wit h Sulfasalazine may generate falsely decreased results for ALT. AST With P-5'-P [Catalytic activity/Vol] 11 U/L 9 - 39 UM-GCURJ-OUU [address] [place] Work Phone: NONE SQ-JKUED-FRN [address] [place] Work Phone: >60 >60 CF-YJMVH-RFJ [address] [place] Work Phone: Comment on above: CALCULATIONS OF MARÍA MATED GFR ARE PERFORMED USING THE MDRD STUDY EQUATION FOR THE IDMS-TRACEABLE CREATININE METHODS. CLIN CHEM 2007;53:766-72 SYPHILIS SCREENING WITH REFL EXon 12-25-2019 T. pallidum IgG+IgM IA Ql (S) NONREACTIVE See Below DT-BWLGY-LHE [address] [place] Work Phone: Comment on above: SOURCE: Reference Ra nge: NONREACTIVENo significant level of Treponema pallidum antibody detected. Repeat testing in 2 to 4 weeks may be considered if early infection or incubating syphilis infection is suspected. CBC AND DIFFERENTIALon 11-21 % AUTOMATED IMMATURE GRAN 0.9 % Normal 0.0 - 0.9 [facility] Comment on above: Result Comment: Perc ent differential counts (%) should be interpreted in the context of the absolute cell counts (cells/L). Performed By: #### C BCDF #### [address] [place] [address] Basophils (Bld) [#/Vol] 0.16 10*3/uL High 0.00 - 0.10 [facility] Comment on above: Performed By: #### C BCDF #### [address] [place] [address] Basophils/100 WBC (Bld) 1.2 % Normal 0.0 - 2.0 [facility] Comment on above: Performed By: #### C BCDF #### [address] [place] [address] Eosinophils (Bld) [#/Vol] 0.80 10*3/uL High 0.00 - 0.70 [facility] Comment on above: Performed By: #### C BCDF #### [address] [place] [address] Eosinophils/100 WBC (Bld) 5.8 % Normal 0.0 - 6.0 [facility] Comment on above: Performed By: #### C BCDF #### [address] [place] [address] Erythrocyte distribution width (RBC) [Ratio] 13.6 % Normal 11.5 - 14.5 [facility] Comment on above: Performed By: #### C BCDF #### [address] [place] [address] Hematocrit (Bld) [Volume fraction] 39.4 % Normal 36.0 - 46.0 [facility] Comment on above: Performed By: #### C BCDF #### [address] [place] [address] Hemoglobin (Bld) [Mass/Vol] 13.0 g/dL Normal 12.0 - 16.0 [facility] Comment on above: Performed By: #### C BCDF #### [address] [place] [address] Lymphocytes (Bld) [#/Vol] 2.24 10*3/uL Normal 1.20 - 4.80 [facility] Comment on above: Performed By: #### C BCDF #### [address] [place] [address] Lymphocytes/100 WBC (Bld) 16.3 % Normal 13.0 - 44.0 [facility] Comment on above: Performed By: #### C BCDF #### [address] [place] [address] MCHC (RBC) [Mass/Vol] 33.0 g/dL Normal 32.0 - 36.0 [facility] Comment on above: Performed By: #### C BCDF #### [address] [place] [address] MCV (RBC) [Entitic vol] 94 fL Normal 80 - 100 [facility] Comment on above: Performed By: #### C BCDF #### [address] [place] [address] Monocytes (Bld) [#/Vol] 0.83 10*3/uL Normal 0.10 - 1.00 [facility] Comment on above: Performed By: #### C BCDF #### [address] [place] [address] Monocytes/100 WBC (Bld) 6.0 % Normal 2.0 - 10.0 [facility] Comment on above: Performed By: #### C BCDF #### [address] [place] [address] Neutrophils (Bld) [#/Vol] 9.60 10*3/uL High 1.20 - 7.70 [facility] Comment on above: Performed By: #### C BCDF #### [address] [place] [address] Neutrophils/100 WBC (Bld) 69.8 % Normal 40.0 - 80.0 [facility] Comment on above: Performed By: #### C BCDF #### [address] [place] [address] Platelets (Bld) [#/Vol] 380 10*3/uL Normal 150 - 450 [facility] Comment on above: Performed By: #### C BCDF #### [address] [place] [address] RBC (Bld) [#/Vol] 4.21 x10E12/L Normal 4.00 - 5.20 [facility] Comment on above: Performed By: #### C BCDF #### [address] [place] [address] WBC (Bld) [#/Vol] 13.8 10*3/uL High 4.4 - 11.3 [facility] Comment on above: Performed By: #### C BCDF #### [address] [place] [address] Complete Blood Count + Diffe rentialon 11-14-2019 Basophils (Bld) [#/Vol] 0.05 {x10E9/L} See Below MP-Reproductiv e Endocrinology- [facility] Work Phone: Comment on above: Reference Range: [...] 13.9 % See Below -Reproductiv e Endocrinology- [place] [...] 2.13 {x10E9/L} See Below -Reproductiv e Endocrinology- [facility] Work Phone: Comment on above: Reference Range: 1.2 0 - 4.80 Lymphocytes/100 WBC (Bld) 17.5 % See Below MP-Reproductiv e Endocrinology- [facility] Work Phone: Comment on above: Reference Range: [...] 69.4 % See Below MP-Reproductiv e Endocrinology- [facility] Work Phone: Comment on above: Reference Range: [...] % 0.0 - 0.9 MP-Reproductiv e Endocrinology- [facility] Work Phone: Comment on above: Percent differential counts (%) should be interpreted in the context of the absolute cell counts (cells/L). Complete Blood Count + Differential 8.42 {x10E9/L} above high threshold See Below MP-Reproductiv e Endocrinology- [place] Work Phone: Comment on above: Reference Range: 1.2 0 - 7.70 Metabolic Panelon 11-14-2019 ALP [Catalytic activity/Vol] 82 U/L 33 - 110 MP-Reproductiv e Endocrinology- [facility] Work Phone: Anion gap [Moles/Vol] 19 mmol/L 10 - 20 MP-Reproductiv e Endocrinology- [facility] Work Phone: Bilirubin [Mass/Vol] 0.4 mg/dL 0.0 - 1.2 MP-Reproductiv e Endocrinology- [place] Work Phone: Calcium [Mass/Vol] 9.5 mg/dL 8.6 - 10.6 MP-Reproductiv e Endocrinology- [facility] Work Phone: Chloride [Moles/Vol] 100 mmol/L 98 - 107 MP-Reproductiv e Endocrinology- [facility] Work Phone: CO2 [Moles/Vol] 20 mmol/L below low threshold 21 - 32 MP-Reproductiv e Endocrinology- [place] Work Phone: Creatinine [Mass/Vol] 0.80 mg/dL See Below MP-Reproductiv e Endocrinology- [facility] Work Phone: Comment on above: Reference Range: 0.5 0 - 1.05 Glucose [Mass/Vol] 86 mg/dL 74 - 99 MP-Reproductiv e Endocrinology- [place] Work Phone: Potassium [Moles/Vol] 4.3 mmol/L 3.5 - 5.3 MP-Reproductiv e Endocrinology- [facility] Work Phone: Protein [Mass/Vol] 5.8 g/dL below low threshold 6.4 - 8.2 MP-Reproductiv e Endocrinology- [place] Work Phone: Sodium [Moles/Vol] 135 mmol/L below low threshold 136 - 145 MP-Reproductiv e Endocrinology- [facility] Work Phone: Urea nitrogen [Mass/Vol] 10 mg/dL 6 - 23 MP-Reproductiv e [facility] Work Phone: Otheron 11-14-2019 Albumin BCP dye [Mass/Vol] 3.5 g/dL 3.4 - 5.0 MP-Reproductiv e [facility] Work Phone: ALT With P-5'-P [Catalytic activity/Vol] 17 U/L 7 - 45 MP-Reproductiv e [facility] Work Phone: Comment on above: Patients treated wit h Sulfasalazine may generate falsely decreased results for ALT. AST With P-5'-P [Catalytic activity/Vol] 22 U/L 9 - 39 MP-Reproductiv e [facility] Work Phone: >60 >60 -Reproductiv [facility] Work Phone: Comment on above: CALCULATIONS OF MARÍA MATED GFR ARE PERFORMED USING THE MDRD STUDY EQUATION FOR THE IDMS-TRACEABLE CREATININE METHODS. CLIN CHEM 2007;53:766-72 CBCon 11-09-2019 Erythrocyte distribution width (RBC) [Ratio] 13.7 % See Below DY-QMWAF-Xyqpq n [facility] Work Phone: Comment on above: Performed By: #### L H #### [facility] [address] [place] [address] Reference Range: 11. 5 - 14.5 Hematocrit (Bld) [Volume fraction] 41.9 % See Below YO-SSQAU-Jvetw n [facility] Work Phone: Comment on above: Performed By: #### L H #### [facility] [address] [place] [address] Reference Range: 36. 0 - 46.0 Hemoglobin (Bld) [Mass/Vol] 14.0 g/dL See Below KC-LPZRX-Ciuoy n 310 IVF Work Phone: Comment on above: Performed By: #### L H #### [facility] [address] [place] [address] Reference Range: 12. 0 - 16.0 MCHC (RBC) [Mass/Vol] 33.4 g/dL See Below OC-MOYII-Dcwnw n 310 IVF Work Phone: Comment on above: Performed By: #### L H #### [facility] [address] [place] [address] Reference Range: 32. 0 - 36.0 MCV (RBC) [Entitic vol] 94 fL 80 - 100 EM-EYCFC-Xcnen n 310 IVF Work Phone: Comment on above: Performed By: #### L H #### [facility] [facility] [address] [id number] Platelets (Bld) [#/Vol] 411 10*3/uL Normal 150 - 450 [facility] Comment on above: Performed By: #### L H #### [facility] [address] [id number] RBC (Bld) [#/Vol] 4.44 x10E12/L Normal 4.00 - 5.20 [facility] Comment on above: Performed By: #### L H #### [facility] [address] [id number] WBC (Bld) [#/Vol] 12.4 10*3/uL High 4.4 - 11.3 [facility] Comment on above: Performed By: #### L H #### [facility] [address] [id number] COMPREHENSIVE PANELon 2018 Albumin [Mass/Vol] 3.8 g/dL Normal 3.4 - 5.0 [facility] Comment on above: Performed By: #### L H #### [facility] [address] [id number] ALP [Catalytic activity/Vol] 51 U/L 33 - 110 KB-DDMOC-Lyvvc n 310 IVF Work Phone: Comment on above: Performed By: #### L H #### [facility] [address] [place] [address] ALT [Catalytic activity/Vol] 12 U/L Normal 7 - 45 [facility] Comment on above: Result Comment: Melida ents treated with Sulfasalazine may generate falsely decreased results for ALT. Performed By: #### L H #### [facility] [address] [id number] Anion gap [Moles/Vol] 13 mmol/L 10 - 20 MD-ZCYOC-Rbihh n 310 IVF Work Phone: Comment on above: Performed By: #### L H #### [facility] [address] [id number] AST [Catalytic activity/Vol] 12 U/L Normal 9 - 39 [facility] Comment on above: Performed By: #### L H #### [facility] [address] [id number] Bilirubin [Mass/Vol] 0.4 mg/dL 0.0 - 1.2 XJ-ZGZXK-Tfiww n 310 IVF Work Phone: Comment on above: Performed By: #### L H #### [facility] [address] [id number] Calcium [Mass/Vol] 9.3 mg/dL 8.6 - 10.3 CB-QIENY-Lgysq n 310 IVF Work Phone: Comment on above: Performed By: #### L H #### [facility] [address] [id number] Chloride [Moles/Vol] 102 mmol/L 98 - 107 QE-EYZGF-Hgmro n 310 IVF Work Phone: Comment on above: Performed By: #### L H #### [facility] [address] [id number] Creatinine [Mass/Vol] 0.89 mg/dL See Below HJ-NUYDH-Gfhwh n 310 IVF Work Phone: Comment on above: Performed By: #### L H #### [facility] [address] [id number] Reference Range: 0.5 0 - 1.05 GFR- AM. >60 Normal >60 [facility] Comment on above: Result Comment: CALC ULATIONS OF ESTIMATED GFR ARE PERFORMED USING THE MDRD STUDY EQUATION FOR THE IDMS-TRACEABLE CREATININE METHODS. CLIN CHEM 2007;53:766-72 Performed By: #### L H #### [facility] [address] [place] [address] GFR-NON AM. >60 Normal >60 [facility] Comment on above: Performed By: #### L H #### [facility] [address] [place] [address] Glucose [Mass/Vol] 74 mg/dL 74 - 99 KU-NSABX-Nvnxc n 310 IVF Work Phone: Comment on above: Performed By: #### L H #### [facility] [address] [place] [address] HCO3 (Bld) [Moles/Vol] 25 mmol/L Normal 21 - 32 [facility] Comment on above: Performed By: #### L H #### [facility] [address] [place] [address] Potassium [Moles/Vol] 4.1 mmol/L 3.5 - 5.3 JX-LXVTD-Fujhf n 310 IVF Work Phone: Comment on above: Performed By: #### L H #### [facility] [address] [place] [address] Protein [Mass/Vol] 6.0 g/dL below low threshold 6.4 - 8.2 LK-DRWGK-Nlokx n 310 IVF Work Phone: Comment on above: Performed By: #### L H #### [facility] [address] [place] [address] Sodium [Moles/Vol] 136 mmol/L 136 - 145 SM-CAFWO-Kkuwy n 310 IVF Work Phone: Comment on above: Performed By: #### L H #### [facility] [address] [place] [address] Urea nitrogen [Mass/Vol] 11 mg/dL 6 - 23 MJ-WYPWJ-Hixbg n 310 IVF Work Phone: Comment on above: Performed By: #### L H #### [facility] [address] [place] [address] HCG, Beta Quantitativeon HCG.beta subunit Qn 7102 {mIU/mL} Abnormal VR-PKUHK-Ctdxe n 310 IVF Work Phone: Comment on [...] HCG measurement is performed using the [employer] Access Immunoassay which detects intact HCG and free beta HCG subunit. This test is not indicated for use as a tumor marker. HCG testing is performed using a different test methodology at [facility] than other [facility]. Direct result comparison should only be made within the same method. REF VALUESNON FEMALE <5MALES <5 HCG,BETA-QUANTITATIVEon - HCG,BETA-QUANTITA TIVE 7102 mIU/mL [facility] Comment on above: Result Comment: Low- level [...] HCG measurement is performed using the [employer] Access Immunoassay which detects intact HCG and free beta HCG subunit. This test is not indicated for use as a tumor marker. HCG testing is performed using a different test methodology at [facility] than other [facility]. Direct result comparison should only be made within the same method. REF VALUES NON FEMALE <5 MALES <5 Performed By: #### L H #### [facility] [address] [id number] Hematologyon 11-09-2019 Platelets (Bld) [#/Vol] 411 {x10E9/L} 150 - 450 OB-WAPVX-Onoyt n 310 IVF Work Phone: RBC (Bld) [#/Vol] 4.44 {x10E12/L} See Below MG -OBGYN-Risma n 310 IVF Work Phone: Comment on above: Reference Range: 4.0 0 - 5.20 WBC (Bld) [#/Vol] 12.4 {x10E9/L} above high threshold 4.4 - 11.3 WQ-ETHTI-Bbqwy n 310 IVF Work Phone: Metabolic Panelon 11-09-2019 CO2 [Moles/Vol] 25 mmol/L 21 - 32 MG-OBGYN- Risma n 310 IVF Work Phone: Otheron 11-09-2019 Albumin BCP dye [Mass/Vol] 3.8 g/dL 3.4 - 5.0 LT-OYGOL-Ohiim n 310 IVF Work Phone: ALT With P-5'-P [Catalytic activity/Vol] 12 U/L 7 - 45 UJ-XQIGT-Gmrqa n 310 IVF Work Phone: Comment on above: Patients treated wit h Sulfasalazine may generate falsely decreased results for ALT. AST With P-5'-P [Catalytic activity/Vol] 12 U/L 9 - 39 ZM-BYUZI-Japto n 310 IVF Work Phone: >60 >60 LL-IRDDG-Czfih n 310 IVF Work Phone: Comment on [...] using a different test methodology at [facility] than other [facility]. Direct result comparison should only be made within the same method. REF VALUESNON FEMALE <5MALES <5 HCG,BETA-QUANTITATIVEon 10-15 HCG,BETA-QUANTITA TIVE 240 mIU/mL [facility] Comment on above: Result Comment: Low- level [...] using a different test methodology at [facility] than [facility]. Direct result comparison should only be made within the same method. REF VALUES NON FEMALE <5 MALES <5 Performed By: #### E STRA #### [facility] [address] [place] [address] ESTRADIOLon 10-14-2019 ESTRADIOL 1871 pg/mL Normal [facility] Comment on above: Result Comment: Estr adiol measurement is performed using the [employer] Access Immunoassay. Estradiol testing is performed using a different test methodology at [facility] than other [facility]. Direct result comparison should only be made within the same method. REF VALUES FOLLICULAR PHASE 20-144 MID CYCLE 64-357 LUTEAL PHASE 56-214 POSTMENOPAUSE < 32 PREPUBERTY < 20 MALE 10-18Y < 20 ADULT MALE < 40 Performed By: #### E STRA #### [facility] [address] [place] [address] Estradiol, Serumon 9 E2 [Mass/Vol] 1871 pg/mL MG-OBGYN-Ri sma n 310 IVF Work Phone: Comment on above: Estradiol measuremen t is performed using the [employer] Access Immunoassay. Estradiol testing is performed using a different test methodology at [facility] than other [facility]. Direct result comparison should only be made within the same method.REF VALUESFOLLICULAR PHASE 20-144MID CYCLE 64-357LUTEAL PHASE 56-214POSTMENOPAUSE < 32PREPUBERTY < 20MALE 10-18Y < 20ADULT MALE < 40 PROGESTERONEon 10-14-2019 PROGESTERONE 1.0 ng/mL Normal [facility] Comment on above: Result Comment: Prog esterone is performed using the [employer] Access Immunoassay. Progesterone testing is performed using a different test methodology at [facility] than other [facility]. Direct result comparison should only be made within the same method. REF VALUES MALE <0.2-0.8 FOLLICULAR PHASE <0.2-1.5 LUTEAL PHASE 7.4-15.4 POSTMENOPAUSAL <0.2-0.2 1ST TRIMESTER 12.0-84.0 2ND TRIMESTER 10.2-58.8 3RD TRIMESTER 46.5-160 Performed By: #### E STRA #### [facility] [address] [place] [address] Progesterone, Serumon 2018 Progesterone [Mass/Vol] 1.0 ng/mL UM-ZXFEO-Syrfl n 310 IVF Work Phone: Comment on above: Progesterone is perf ormed using the [employer] Access Immunoassay. Progesterone testing is performed using a different test methodology at [facility] than other [facility]. Direct result comparison should only be made within the same method.REF VALUESMALE <0.2-0.8 FOLLICULAR PHASE <0.2-1.5 LUTEAL PHASE 7.4-15.4 POSTMENOPAUSAL <0.2-0.2 1ST TRIMESTER 12.0-84.0 2ND TRIMESTER 10.2-58.8 3RD TRIMESTER 46.5-160 ESTRADIOLon 10-11-2019 ESTRADIOL 284 pg/mL Normal [facility] Comment on above: Result Comment: Estr adiol measurement is performed using the [employer] Access Immunoassay. Estradiol testing is performed using a different test methodology at [facility] than other [facility]. Direct result comparison should only be made within the same method. REF VALUES FOLLICULAR PHASE 20-144 MID CYCLE 64-357 LUTEAL PHASE 56-214 POSTMENOPAUSE < 32 PREPUBERTY < 20 MALE 10-18Y < 20 ADULT MALE < 40 Performed By: #### E STRA #### [facility] [address] [place] [address] Estradiol, Serumon 201 9 E2 [Mass/Vol] 284 pg/mL MG-OBGYN-Ri [facility] n 310 IVF Work Phone: Comment on above: Estradiol measuremen t is performed using the [employer] Access Immunoassay. Estradiol testing is performed using a different test methodology at [facility] than other [facility]. Direct result comparison should only be made within the same method.REF VALUESFOLLICULAR PHASE 20-144MID CYCLE 64-357LUTEAL PHASE 56-214POSTMENOPAUSE < 32PREPUBERTY < 20MALE 10-18Y < 20ADULT MALE < 40 ESTRADIOLon 10-05-2019 ESTRADIOL 129 pg/mL Normal [facility] Comment on above: Result Comment: Estr adiol measurement is performed using the [employer] Access Immunoassay. Estradiol testing is performed using a different test methodology at [facility] than other [facility]. Direct result comparison should only be made within the same method. REF VALUES FOLLICULAR PHASE 20-144 MID CYCLE 64-357 LUTEAL PHASE 56-214 POSTMENOPAUSE < 32 PREPUBERTY < 20 MALE 10-18Y < 20 ADULT MALE < 40 Performed By: #### E STRA #### [facility] [address] [place] [address] Estradiol, Serumon 9 E2 [Mass/Vol] 129 pg/mL MG-OBGYN-Ri [facility] n 310 IVF Work Phone: Comment on above: Estradiol measuremen t is performed using the [employer] Access Immunoassay. Estradiol testing is performed using a different test methodology at [facility] than other [facility]. Direct result comparison should only be made within the same method.REF VALUESFOLLICULAR PHASE 20-144MID CYCLE 64-357LUTEAL PHASE 56-214POSTMENOPAUSE < 32PREPUBERTY < 20MALE 10-18Y < 20ADULT MALE < 40 PROGESTERONEon 10-05-2019 PROGESTERONE 0.2 ng/mL Normal [facility] Comment on above: Result Comment: Prog esterone is performed using the [employer] Access Immunoassay. Progesterone testing is performed using a different test methodology at [facility] than other [facility]. Direct result comparison should only be made within the same method. REF VALUES MALE <0.2-0.8 FOLLICULAR PHASE <0.2-1.5 LUTEAL PHASE 7.4-15.4 POSTMENOPAUSAL <0.2-0.2 1ST TRIMESTER 12.0-84.0 2ND TRIMESTER 10.2-58.8 3RD TRIMESTER 46.5-160 Performed By: #### E BARBARA #### [facility] [address] [place] [address] Progesterone, Serumon 2018 Progesterone [Mass/Vol] 0.2 ng/mL ZT-XWLTG-Byblr n 310 IVF Work Phone: Comment on above: Progesterone is perf ormed using the [employer] Access Immunoassay. Progesterone testing is performed using a different test methodology at [facility] than other [facility]. Direct result comparison should only be made within the same method.REF VALUESMALE <0.2-0.8 FOLLICULAR PHASE <0.2-1.5 LUTEAL PHASE 7.4-15.4 POSTMENOPAUSAL <0.2-0.2 1ST TRIMESTER 12.0-84.0 2ND TRIMESTER 10.2-58.8 3RD TRIMESTER 46.5-160 ESTRADIOLon 10-02-2019 ESTRADIOL 357 pg/mL Normal [facility] Comment on above: Result Comment: Estr adiol measurement is performed using the [employer] Access Immunoassay. Estradiol testing is performed using a different test methodology at [facility] than other [facility]. Direct result comparison should only be made within the same method. REF VALUES FOLLICULAR PHASE 20-144 MID CYCLE 64-357 LUTEAL PHASE 56-214 POSTMENOPAUSE < 32 PREPUBERTY < 20 MALE 10-18Y < 20 ADULT MALE < 40 Performed By: #### E STRA #### [facility] [address] [place] [address] Estradiol, Serumon 9 E2 [Mass/Vol] 357 pg/mL MG-OBGYN-Cr ock er 206A IVF Work Phone: Comment on above: Estradiol measuremen t is performed using the [employer] Access Immunoassay. Estradiol testing is performed using a different test methodology at [facility] than other [facility]. Direct result comparison should only be made within the same method.REF VALUESFOLLICULAR PHASE 20-144MID CYCLE 64-357LUTEAL PHASE 56-214POSTMENOPAUSE < 32PREPUBERTY < 20MALE 10-18Y < 20ADULT MALE < 40 LUTEINIZING HORMONEon 2018 LUTEINIZING HORMONE 14.7 IU/L Normal [facility] Comment on above: Result Comment: Lute inizing Hormone [LH] is performed using the [employer] Access Immunoassay. LH testing is performed using a different test methodology at [facility] than other [facility]. Direct result comparison should only be made within the same method. REF VALUES FOLLICULAR PHASE 1.5-10.0 MID-CYCLE 13.0-72.0 LUTEAL PHASE 0.5-13.0 MENOPAUSE 15.0-65.0 PREPUBERTY 0- 3.0 CHILDREN 0- 6.0 ADULT MALE 1.0- 9.0 Performed By: #### E [facility] #### [facility] [address] [place] [address] Luteinizing Hormone, Serumon 10-02-2019 Lutropin Qn 14.7 {IU/L} ZO-BPYIR-Fif ck er 206A IVF Work Phone: Comment on above: Luteinizing Hormone [LH] is performed using the [employer] Access Immunoassay. LH testing is performed using a different test methodology at [facility] than other [facility]. Direct result comparison should only be made within the same method.REF VALUESFOLLICULAR PHASE 1.5-10.0MID-CYCLE 13.0-72.0LUTEAL PHASE 0.5-13.0MENOPAUSE 15.0-65.0PREPUBERTY 0- 3.0CHILDREN 0- 6.0ADULT MALE 1.0- 9.0 PROGESTERONEon 10-02-2019 PROGESTERONE 0.1 ng/mL Normal [facility] Comment on above: Result Comment: Prog esterone is performed using the [employer] Access Immunoassay. Progesterone testing is performed using a different test methodology at [facility] than [facility]. Direct result comparison should only be made within the same method. REF VALUES MALE <0.2-0.8 FOLLICULAR PHASE <0.2-1.5 LUTEAL PHASE 7.4-15.4 POSTMENOPAUSAL <0.2-0.2 1ST TRIMESTER 12.0-84.0 2ND TRIMESTER 10.2-58.8 3RD TRIMESTER 46.5-160 Performed By: #### E STRA #### [facility] [address] [place] [address] Progesterone, Serumon 2018 Progesterone [Mass/Vol] 0.1 ng/mL PU-SOXOG-Irnmo er 206A IVF Work Phone: Comment on above: Progesterone is perf ormed using the [employer] Access Immunoassay. Progesterone testing is performed using a different test methodology at [facility] than [facility]. Direct result comparison should only be made within the same method.REF VALUESMALE <0.2-0.8 FOLLICULAR PHASE <0.2-1.5 LUTEAL PHASE 7.4-15.4 POSTMENOPAUSAL <0.2-0.2 1ST TRIMESTER 12.0-84.0 2ND TRIMESTER 10.2-58.8 3RD TRIMESTER 46.5-160 HCG,BETA-QUANTITATIVEon 07-17 HCG,BETA-QUANTITA TIVE 10 mIU/mL [facility] Comment on above: Result Comment: Low- level [...] HCG measurement is performed using the [employer] Access Immunoassay which detects intact HCG and free beta HCG subunit. This test is not indicated for use as a tumor marker. HCG testing is performed using a different test methodology at [facility] than other [facility]. Direct result comparison should only be made within the same method. REF VALUES NON FEMALE <5 MALES <5 Performed By: #### L H #### [facility] [address] [place] [address] LUTEINIZING HORMONEon 2018 LUTEINIZING HORMONE 57.0 IU/L Normal [facility] Comment on above: Result Comment: Lute inizing Hormone [LH] is performed using the [employer] Access Immunoassay. LH testing is performed using a different test methodology at [facility] than other [facility]. Direct result comparison should only be made within the same method. REF VALUES FOLLICULAR PHASE 1.5-10.0 MID-CYCLE 13.0-72.0 LUTEAL PHASE 0.5-13.0 MENOPAUSE 15.0-65.0 PREPUBERTY 0- 3.0 CHILDREN 0- 6.0 ADULT MALE 1.0- 9.0 Performed By: #### E STRA #### [facility] [address] [place] [address] PROGESTERONEon 08-13-2019 PROGESTERONE 6.7 ng/mL Normal [facility] Comment on above: Result Comment: Prog esterone is performed using the [employer] Access Immunoassay. Progesterone testing is performed using a different test methodology at [facility] than [facility]. Direct result comparison should only be made within the same method. REF VALUES MALE <0.2-0.8 FOLLICULAR PHASE <0.2-1.5 LUTEAL PHASE 7.4-15.4 POSTMENOPAUSAL <0.2-0.2 1ST TRIMESTER 12.0-84.0 2ND TRIMESTER 10.2-58.8 3RD TRIMESTER 46.5-160 Performed By: #### L H #### [facility] [address] [place] [address] ESTRADIOLon 08-12-2019 ESTRADIOL 1380 pg/mL Normal [facility] Comment on above: Result Comment: Estr adiol measurement is performed using the [employer] Access Immunoassay. Estradiol testing is performed using a different test methodology at [facility] than [facility]. Direct result comparison should only be made within the same method. REF VALUES FOLLICULAR PHASE 20-144 MID CYCLE 64-357 LUTEAL PHASE 56-214 POSTMENOPAUSE < 32 PREPUBERTY < 20 MALE 10-18Y < 20 ADULT MALE < 40 Performed By: #### L H #### [facility] [address] [place] [address] PROGESTERONEon 08-12-2019 PROGESTERONE 1.7 ng/mL Normal [facility] Comment on above: Result Comment: Prog esterone is performed using the [employer] Access Immunoassay. Progesterone testing is performed using a different test methodology at [facility] than other [facility]. Direct result comparison should only be made within the same method. REF VALUES MALE <0.2-0.8 FOLLICULAR PHASE <0.2-1.5 LUTEAL PHASE 7.4-15.4 POSTMENOPAUSAL <0.2-0.2 1ST TRIMESTER 12.0-84.0 2ND TRIMESTER 10.2-58.8 3RD TRIMESTER 46.5-160 Performed By: #### L H #### [facility] [address] [place] [address] ESTRADIOLon 08-11-2019 ESTRADIOL 874 pg/mL Normal [facility] Comment on above: Result Comment: Estr adiol measurement is performed using the [employer] Access Immunoassay. Estradiol testing is performed using a different test methodology at [facility] than other [facility]. Direct result comparison should only be made within the same method. REF VALUES FOLLICULAR PHASE 20-144 MID CYCLE 64-357 LUTEAL PHASE 56-214 POSTMENOPAUSE < 32 PREPUBERTY < 20 MALE 10-18Y < 20 ADULT MALE < 40 Performed By: #### L H #### [facility] [address] [place] [address] PROGESTERONEon 08-11-2019 PROGESTERONE 1.2 ng/mL Normal [facility] Comment on above: Result Comment: Prog esterone is performed using the [employer] Access Immunoassay. Progesterone testing is performed using a different test methodology at [facility] than [facility]. Direct result comparison should only be made within the same method. REF VALUES MALE <0.2-0.8 FOLLICULAR PHASE <0.2-1.5 LUTEAL PHASE 7.4-15.4 POSTMENOPAUSAL <0.2-0.2 1ST TRIMESTER 12.0-84.0 2ND TRIMESTER 10.2-58.8 3RD TRIMESTER 46.5-160 Performed By: #### L H #### [facility] [address] [place] [address] ESTRADIOLon 08-09-2019 ESTRADIOL 385 pg/mL Normal [facility] Comment on above: Result Comment: Estr adiol measurement is performed using the [employer] Access Immunoassay. Estradiol testing is performed using a different test methodology at [facility] than [facility]. Direct result comparison should only be made within the same method. REF VALUES FOLLICULAR PHASE 20-144 MID CYCLE 64-357 LUTEAL PHASE 56-214 POSTMENOPAUSE < 32 PREPUBERTY < 20 MALE 10-18Y < 20 ADULT MALE < 40 Performed By: #### L H #### [facility] [address] [place] [address] ESTRADIOLon 08-07-2019 ESTRADIOL 80 pg/mL Normal [facility] Comment on above: Result Comment: Estr adiol measurement is performed using the [employer] Access Immunoassay. Estradiol testing is performed using a different test methodology at [facility] than other [facility]. Direct result comparison should only be made within the same method. REF VALUES FOLLICULAR PHASE 20-144 MID CYCLE 64-357 LUTEAL PHASE 56-214 POSTMENOPAUSE < 32 PREPUBERTY < 20 MALE 10-18Y < 20 ADULT MALE < 40 Performed By: #### L H #### [facility] [address] [id number] ESTRADIOLon 08-04-2019 ESTRADIOL 58 pg/mL Normal [facility] Comment on above: Result Comment: Estr adiol measurement is performed using the [employer] Access Immunoassay. Estradiol testing is performed using a different test methodology at [facility] than other [facility]. Direct result comparison should only be made within the same method. REF VALUES FOLLICULAR PHASE 20-144 MID CYCLE 64-357 LUTEAL PHASE 56-214 POSTMENOPAUSE < 32 PREPUBERTY < 20 MALE 10-18Y < 20 ADULT MALE < 40 Performed By: #### L H #### [facility] [address] [id number] ESTRADIOLon 07-07-2019 ESTRADIOL 110 pg/mL Normal [facility] Comment on above: Result Comment: Estr adiol measurement is performed using the [employer] Access Immunoassay. Estradiol testing is performed using a different test methodology at [facility] than other [facility]. Direct result comparison should only be made within the same method. REF VALUES FOLLICULAR PHASE 20-144 MID CYCLE 64-357 LUTEAL PHASE 56-214 POSTMENOPAUSE < 32 PREPUBERTY < 20 MALE 10-18Y < 20 ADULT MALE < 40 Performed By: #### L H #### [facility] [address] [place] [address] NR MRI SELLA WO/Won 05-31-20 19 NR MRI SELLA WO/W Patient Name: KIARA ASHLEY STUDY: NR MRI SELLA WO/W; 05/31/2019 2:00 pm INDICATION: History of 7 mm microadenoma 2008. COMPARISON: None. ACCESSION NUMBER(S): [id number] ORDERING CLINICIAN: SHAHLA HEALY TECHNIQUE: High resolution [...] magnum. Electronically signed by: PHYSICIAN ELLEN Normal [facility] ESTRADIOLon 05-05-2019 ESTRADIOL 217 pg/mL Normal [facility] Comment on above: Result Comment: Estr adiol measurement is performed using the [employer] Access Immunoassay. Estradiol testing is performed using a different test methodology at [facility] than other [facility]. Direct result comparison should only be made within the same method. REF VALUES FOLLICULAR PHASE 20-144 MID CYCLE 64-357 LUTEAL PHASE 56-214 POSTMENOPAUSE < 32 PREPUBERTY < 20 MALE 10-18Y < 20 ADULT MALE < 40 Performed By: #### E STRA #### [facility] [address] [place] [address] LUTEINIZING HORMONEon 2018 LUTEINIZING HORMONE 4.4 IU/L Normal [facility] Comment on above: Result Comment: Lute inizing Hormone [LH] is performed using the Jose Ryan Access Immunoassay. LH testing is performed using a different test methodology at [facility] than other [facility]. Direct result comparison should only be made within the same method. REF VALUES FOLLICULAR PHASE 1.5-10.0 MID-CYCLE 13.0-72.0 LUTEAL PHASE 0.5-13.0 MENOPAUSE 15.0-65.0 PREPUBERTY 0- 3.0 CHILDREN 0- 6.0 ADULT MALE 1.0- 9.0 Performed By: #### L H #### [facility] [address] [place] [id number] ESTRADIOLon 04-11-2019 ESTRADIOL 118 pg/mL Normal [facility] Comment on above: Result Comment: Estr adiol measurement is performed using the Jose Ryan Access Immunoassay. Estradiol testing is performed using a different test methodology at [facility] than [facility]. Direct result comparison should only be made within the same method. REF VALUES FOLLICULAR PHASE 20-144 MID CYCLE 64-357 LUTEAL PHASE 56-214 POSTMENOPAUSE < 32 PREPUBERTY < 20 MALE 10-18Y < 20 ADULT MALE < 40 Performed By: #### E STRA #### [facility] [address] [place] [address] LUTEINIZING HORMONEon 2018 LUTEINIZING HORMONE 7.7 IU/L Normal [facility] Comment on above: Result Comment: Lute inizing Hormone [LH] is performed using the Jose Ryan Access Immunoassay. LH testing is performed using a different test methodology at [facility] than [facility]. Direct result comparison should only be made within the same method. REF VALUES FOLLICULAR PHASE 1.5-10.0 MID-CYCLE 13.0-72.0 LUTEAL PHASE 0.5-13.0 MENOPAUSE 15.0-65.0 PREPUBERTY 0- 3.0 CHILDREN 0- 6.0 ADULT MALE 1.0- 9.0 Performed By: #### L H #### [facility] [address] [place] [address] PROGESTERONEon 04-11-2019 PROGESTERONE 0.1 ng/mL Normal [facility] Comment on above: Result Comment: Prog esterone is performed using the Jose HipLogiq Access Immunoassay. Progesterone testing is performed using a different test methodology at [facility] than other [facility]. Direct result comparison should only be made within the same method. REF VALUES MALE <0.2-0.8 FOLLICULAR PHASE <0.2-1.5 LUTEAL PHASE 7.4-15.4 POSTMENOPAUSAL <0.2-0.2 1ST TRIMESTER 12.0-84.0 2ND TRIMESTER 10.2-58.8 3RD TRIMESTER 46.5-160 Performed By: #### P SVEN #### [facility] [address] [place] [address] ESTRADIOLon 03-17-2019 ESTRADIOL 120 pg/mL Normal [facility] Comment on above: Result Comment: Estr adiol measurement is performed using the Jose HipLogiq Access Immunoassay. Estradiol testing is performed using a different test methodology at [facility] than other [facility]. Direct result comparison should only be made within the same method. REF VALUES FOLLICULAR PHASE 20-144 MID CYCLE 64-357 LUTEAL PHASE 56-214 POSTMENOPAUSE < 32 PREPUBERTY < 20 MALE 10-18Y < 20 ADULT MALE < 40 Performed By: #### E STRA #### [facility] [address] [place] [address] LUTEINIZING HORMONEon 2018 LUTEINIZING HORMONE 6.8 IU/L Normal [facility] Comment on above: Result Comment: Lute inizing Hormone [LH] is performed using the Jose Bro[place] Access Immunoassay. LH testing is performed using a different test methodology at [facility] than other [facility]. Direct result comparison should only be made within the same method. REF VALUES FOLLICULAR PHASE 1.5-10.0 MID-CYCLE 13.0-72.0 LUTEAL PHASE 0.5-13.0 MENOPAUSE 15.0-65.0 PREPUBERTY 0- 3.0 CHILDREN 0- 6.0 ADULT MALE 1.0- 9.0 Performed By: #### L H #### [facility] [address] [place] [address] ESTRADIOLon 02-20-2019 ESTRADIOL 521 pg/mL Normal [facility] Comment on above: Result Comment: Estr adiol measurement is performed using the Jose HipLogiq Access Immunoassay. Estradiol testing is performed using a different test methodology at [facility] than other [facility]. Direct result comparison should only be made within the same method. REF VALUES FOLLICULAR PHASE 20-144 MID CYCLE 64-357 LUTEAL PHASE 56-214 POSTMENOPAUSE < 32 PREPUBERTY < 20 MALE 10-18Y < 20 ADULT MALE < 40 Performed By: #### E STRA #### [facility] [address] [place] [address] LUTEINIZING HORMONEon 2018 LUTEINIZING HORMONE 3.5 IU/L Normal [facility] Comment on above: Result Comment: Lute inizing Hormone [LH] is performed using the Jose HipLogiq Access Immunoassay. LH testing is performed using a different test methodology at [facility] than other [facility]. Direct result comparison should only be made within the same method. REF VALUES FOLLICULAR PHASE 1.5-10.0 MID-CYCLE 13.0-72.0 LUTEAL PHASE 0.5-13.0 MENOPAUSE 15.0-65.0 PREPUBERTY 0- 3.0 CHILDREN 0- 6.0 ADULT MALE 1.0- 9.0 Performed By: #### L H #### [facility] [address] [place] [address] Vital Signs Date Time Vital Sign Value Performing Clinician Modesto golden 12-27-2023 10:57-0500 Body mass index (BMI) [Ratio] 34.84 kg/m2 Bere JOHNSON Work Phone: [facility] 12-27-2023 10:57-0500 Body weight 83.64 kg Bere JOHNSON Work Phone: [facility] 12-27-2023 10:57-0500 Diastolic blood pressure 68 mm[Hg] Bere JOHNSON Work Phone: [facility] 12-27-2023 10:57-0500 Systolic blood pressure 110 mm[Hg] Bere JOHNSON Work Phone: [facility] 02-27-2023 11:35-0400 Body mass index (BMI) [Ratio] 29.26 kg/m2 Evelyn Perez Work Phone: [facility] 02-27-2023 11:35-0400 Body temperature 98.8 [degF] Evelyn Calderonrn Work Phone: [facility] [employer] 02-27-2023 11:35-0400 Body weight 72.58 kg Evelyn Calderonrn Work Phone: [facility] [employer] 02-27-2023 11:35-0400 Diastolic blood pressure 66 mm[Hg] Evelyn Calderonrn Work Phone: [facility] [employer] 02-27-2023 11:35-0400 Heart rate 88 /min Evelyn Calderonrn Work Phone: [facility] [employer] 02-27-2023 11:35-0400 Respiratory rate 14 /min Evelyn Calderonrn Work Phone: [facility] [employer] 02-27-2023 11:35-0400 SaO2% (BldA) [Mass fraction] 100 % Evelyn Calderonrn Work Phone: [facility] [employer] 02-27-2023 11:35-0400 Systolic blood pressure 103 mm[Hg] Evelyn Calderonrn Work Phone: [facility] [employer] 06-19-2021 14:03-0400 Body height 157.48 cm Evelyn Calderonrn Work Phone: EO-KNQJC-Dgbknb 310 IVF Work Phone: 06-19-2021 14:03-0400 Body mass index (BMI) [Ratio] 29.26 kg/m2 Evelyn Calderonrn Work Phone: LD-WMGPY-Zjhnda 310 IVF Work Phone: 06-19-2021 14:03-0400 Body surface area Derived from formula 1.74 m2 Evelyn Calderonrn Work Phone: MX-JVTPE-Qqitlj 310 IVF Work Phone: 06-19-2021 14:03-0400 Body weight 72.58 kg Evelyn M Ana Work Phone: VI-VUDZS-Lwxlfo 310 IVF Work Phone: 06-19-2021 14:03-0400 1 1 Evelyn Husain Ana Work Phone: YB-XEMZN-Fuddqf 310 IVF Work Phone: Comment on above: GRAV PARA 06-19-2021 14:03-0400 0 1 Evelyn Husain Ana Work Phone: BS-IAFVE-Twophw 310 IVF Work Phone: Comment on above: [employer] 06-07-2020 10:41-0400 BMI (Body Mass Index) 34.93 kg/m2 King Lappen FO-LNOEP-VEU [address] [place] Work Phone: 06-07-2020 10:41-0400 Body weight 86.64 kg King Lappen VQ-EZKEU-ZXZ 120 0 [place] Work Phone: 06-07-2020 10:41-0400 BP Diastolic 76 mm[Hg] King Lappen ML-YTCAG-SDO 120 0 [place] Work Phone: 06-07-2020 10:41-0400 BP Systolic 111 mm[Hg] King Lappen JU-ZSYCF-MOR 120 0 [place] Work Phone: 06-07-2020 10:41-0400 BSA (Body Surface Area) 1.87 m2 King Lappen LZ-RVDDT-KPQ 1200 [place] Work Phone: 06-07-2020 10:41-0400 Pulse (Heart Rate) 101 /min King Lappen BU-NDTRS-QSE 1200 [place] Work Phone: 06-07-2020 10:41-0400 0 1 King Lappen EM-EINNB-WXQ 120 0 [place] Work Phone: Comment on above: [employer] 12-25-2019 10:58-0500 BMI (Body Mass Index) 30.18 kg/m2 King Lappen FG-LMBTK-CEA 1200 [place] Work Phone: 12-25-2019 10:58-0500 Body weight 74.84 kg King Lappen WS-ONEHZ-YNV 120 0 [place] Work Phone: 12-25-2019 10:58-0500 BP Diastolic 68 mm[Hg] King Lappen SZ-EEKHY-DRA 120 0 [place] Work Phone: 12-25-2019 10:58-0500 BP Systolic 112 mm[Hg] King Lappen FY-GFSBZ-QXV 120 0 [place] Work Phone: 12-25-2019 10:58-0500 BSA (Body Surface Area) 1.76 m2 King Lappen GW-IHVXZ-JUJ 1200 [place] Work Phone: 11-09-2019 11:28-0500 Body Temperature 98.78 [degF] Kelechi Gage CT-CISVK-Efqjkk 310 IVF Work Phone: 11-09-2019 11:28-0500 BP Diastolic 76 mm[Hg] Kelechi Gage QT-IMFQF-Ntjhae 310 IVF Work Phone: 11-09-2019 11:28-0500 BP Systolic 112 mm[Hg] Kelechi Gage OE-HSSBM-Iqivqt 310 IVF Work Phone: 11-09-2019 11:28-0500 Respiratory Rate 96 /min Kelechi Gage QS-XHUNS-Avvvzd 310 IVF Work Phone: Encounters Encounter Date Encounter Type Care Provider Facility Start: 01-24-2024 End: 01-24-2024 ambulatory BERE STEEL Not Available Start: 01-10-2024 End: 01-11-2024 ambulatory Zoya Buitrago RISK ENGINEER-PATIENT ACCOUNT LIAISON Facility:Pulmonology & [facility] Start: 12-27-2023 End: 12-27-2023 ambulatory BREE STEEL Not Available Start: 12-27-2023 End: 12-27-2023 flow sheet Bere Steel PA Work Phone: [facility] Comment on above: Third trimester preg teddy; First trimester ; Hypothyroidism, unspecified type (CMS/HCC); Hypothyroidism (acquired) (CMS/[facility]); H/O blood clots; Excessive growth affecting management of in third trimester, single or unspecified fetus Start: 11-30-2023 End: 11-30-2023 ambulatory DEMARIO RIBEIRO Not Available Start: 11-03-2023 End: 11-03-2023 ambulatory DEMARIO RIBEIRO Not Available Start: 10-05-2023 End: 10-05-2023 ambulatory BERE ELSA Not Available Start: 09-14-2023 End: 09-14-2023 ambulatory Lc Waite Facility:[facility] Start: 02-27-2023 End: 02-27-2023 Emergency department patient visit EVELYN Husain ANA [facility] Start: 02-27-2023 End: 02-27-2023 Emergency department patient visit Evelyn Ana Work Phone: [facility] ED Comment on above: Sprain of left ankle , unspecified ligament, initial encounter (Primary Dx) Start: 01-11-2023 End: 01-11-[address] DEMARIO RIBEIRO . Facility:[facility] Start: 09-22-2022 End: 09-22-2022 Emergency department patient visit JAMI ROMERO [facility] Start: 03-10-[address] EVELYN PEREZ Facility:[facility] Start: 03-03-[address] EVELYN PEREZ Facility:[facility] Start: 02-24-2022 End: 02-24-[address] EVELYN PEREZ Facility:[facility] Start: 02-18-2022 End: 02-21-2022 Evaluation and management of inpatient DR DOMENIC RONQUILLO . Facility:[facility] Start: 02-17-2022 End: 02-17-[address] JESSE THOMSA Facility:[facility] Start: 02-13-2022 End: 02-13-[address] DOMENIC RONQUILLO . Facility:[facility] Start: 02-10-2022 End: 02-10-[address] DEMARIO RIBEIRO . Facility:[facility] Start: 02-06-2022 End: 03-25-[address] DEMARIO RIBEIRO . Facility:[facility] Start: 02-03-2022 End: 02-03-[address] JESSE THOMAS Facility:[facility] Start: 02-02-2022 End: 02-02-[address] EVELYN PEREZ Facility:[facility] Start: 01-27-[address] EVELYN PEREZ Facility:[facility] Start: 12-27-2021 End: 12-27-2021 ambulatory Sabina Barnhart Other [place] [employer] Other Start: 12-27-2021 Office outpatient visit 5 minutes Sabina Barnhart [facility] Start: 07-16-2021 Patient encounter procedure Evelyn Perez Work Phone: NB-OKICT-Blxwtu 310 IVF Work Phone: Start: 07-07-2021 AUDIT Evelyn santana Work Phone: NN-SWVPP-Inayxj 310 IVF Work Phone: Start: 07-07-2021 Chart Update Evelyn santana Work Phone: XX-WWTPX-Qhxbtf 310 IVF Work Phone: Start: 07-02-2021 Telephone encounter Evelyn gonzales Work Phone: NT-IIIKX-Urufei 310 IVF Work Phone: Start: 06-19-2021 Patient encounter procedure Evelyn Perez Work Phone: IK-UKQKT-Lebrfd 310 IVF Work Phone: Start: 06-07-2020 Patient encounter procedure King Lappen QX-WBLMA-FIB 1200 [place] Work Phone: Start: 04-24-2020 Patient encounter procedure King Lappen KG-NXODQ-PRQ 1200 [place] Work Phone: Start: 02-20-2020 Patient encounter procedure King Lappen KS-FDHEC-GQO 1200 [place] Work Phone: Start: 02-14-2020 Patient encounter procedure King Kepmpen AY-EHYAI-ROD 1200 [place] Work Phone: Start: 01-23-2020 Patient encounter procedure King Lappen FC-TMKQE-EJI 1200 [place] Work Phone: Start: 12-25-2019 Patient encounter procedure King Lappen BO-LZDRZ-ADN 1200 [place] Work Phone: Start: 11-21-2019 Patient encounter procedure King Kemppen SW-LNBAA-DPV 1200 [place] Work Phone: Start: 11-16-2019 Patient encounter procedure Kelechi Gage MP-Reproductive Endocrinology-[facility] 206 Work Phone: Start: 11-14-2019 Patient encounter procedure Kelechi Gage OP-ZZCXI-Jdajiu 310 IVF Work Phone: Start: 11-09-2019 Patient encounter procedure Kelechi Gage OV-AEIXZ-Josbka 310 IVF Work Phone: Start: 11-02-2019 Patient encounter procedure Kelechi Gage MP-Reproductive Endocrinology-[place] Work Phone: Start: 10-21-2019 Patient encounter procedure Kelechi Gage MP-Reproductive Endocrinology-[place] Work Phone: Start: 10-14-2019 Patient encounter procedure Kelechi Gage MP-SAEWW-Kclsvn 310 IVF Work Phone: Start: 10-11-2019 Patient encounter procedure Kelechi Gage RH-GOUJR-Jntbpy 310 IVF Work Phone: Start: 10-05-2019 Patient encounter procedure Kelechi Gage UY-DISXT-Nzkntc 320 Work Phone: Start: 10-02-2019 Patient encounter procedure Kelechi Gage RF-PJVLC-Ililmlt 206A IVF Work Phone: Start: 08-14-2019 Patient encounter procedure Kelechi Gage LW-NULKW-Iskthy 310 IVF Work Phone: Start: 08-13-2019 Patient encounter procedure Kelechi Gage AS-SVXSR-Fulkav 310 IVF Work Phone: Start: 08-12-2019 Patient encounter procedure Kelechi Gage ZD-YROCT-Ccqlct 310 IVF Work Phone: Start: 08-11-2019 Patient encounter procedure Kelechi TONGGF-AODWV-Dhmuyr 310 IVF Work Phone: Start: 08-09-2019 Patient encounter procedure Kelechi TONGWE-TVYOD-Vrhcju 310 IVF Work Phone: Start: 08-07-2019 Patient encounter procedure Kelechi Gage RK-LXFDB-Wxufqi 310 IVF Work Phone: Start: 08-04-2019 Patient encounter procedure Kelechi TONGRT-SDYAD-Iuozlf 310 IVF Work Phone: Start: 07-07-2019 Patient encounter procedure Kelechi Gage FG-LHMBL-Dtjsko 310 IVF Work Phone: Start: 06-08-2019 Patient encounter procedure Kelechi TONGNI-KXQMG-Mjwujc 310 IVF Work Phone: Start: 05-17-2019 Patient encounter procedure Kelechi TONGHN-CWYRZ-Uilwre 310 IVF Work Phone: Start: 05-08-2019 Patient encounter procedure Kelechi TONGIX-MKXSN-Nacdqr 310 IVF Work Phone: Start: 05-05-2019 Patient encounter procedure Kelechi TONGYI-XGNYX-Ghpelo 310 IVF Work Phone: Start: 04-13-2019 Patient encounter procedure Kelechi TONGLH-PEFUT-Bknbyh 310 IVF Work Phone: Start: 04-11-2019 Patient encounter procedure Kelechi Gage VY-NHZAL-Lbfnjj 310 IVF Work Phone: Start: 03-20-2019 Patient encounter procedure Kelechi Gage GU-DFNFX-Kzfscc 310 IVF Work Phone: Start: 03-17-2019 Patient encounter procedure Kelechi TONGXG-FLBZM-Zhgvlu 310 IVF Work Phone: Start: 02-22-2019 Patient encounter procedure Kelechi Gage NT-MXTXI-Lfjaud 310 IVF Work Phone: Start: 02-20-2019 Patient encounter procedure Kelechi Gage NT-ONZTD-Krzxas 310 IVF Work Phone: Start: 02-13-2019 Patient encounter procedure Bruce Mayes Facility:[facility] Start: 02-08-2019 End: 02-12-2019 Patient encounter procedure Bruce Mayes Facility:[facility] Start: 01-19-2019 Patient encounter procedure Kelechi Gage WU-UKUOA-Jjnmgq 310 IVF Work Phone: Patient encounter status Evelyn Perez Work Phone: ER-NEFAA-Vpzyup 310 IVF Work Phone: Procedures Date Procedure [...] Kelechi Gage Start: 10-05-2019 Assay of estradiol rAsenio Gage Start: 10-05-2019 IO Ultrasound, limit ed [...] Routine [facility] [address] [place], [place] [phone] Demario Ribeiro, DO [address] [place] [address] [facility] Start: 02-07-2024 End: 02-07-2024 Professional / ancillary services management 02/07/2024 9:00 AM EDT Ancillary Procedure [facility] [address] [place], [place] [phone] [facility] Start: 01-24-2024 End: 01-24-2024 Patient encounter procedure 01/24/2024 9:30 AM EDT Routine [facility] [address] [facility] [address] [place], [place] [phone] Bere Steel PA [address] [facility] [address] [place], [place] [id number] [facility] Start: 01-10-2024 End: 01-10-2024 Patient encounter procedure 01/10/2024 2:20 PM EST Routine [facility] [address] [facility] [address] [address] [place], [place] [address] Demario Ribeiro DO [address] [facility] [address] [place], [place] [id number] [facility] Start: 01-10-2024 End: 01-10-2024 Professional / ancillary services management 01/10/2024 2:00 PM EST Ancillary Procedure [facility] [address] [facility] [address] [address] [place], [place] [phone] [facility] Start: 12-27-2023 End: 12-27-2024 US biophysical profile w non stress test US biophysical profile w non stress test Imaging Routine Hypothyroidism (acquired) (CMS/HCC) H/O blood clots Expected: 12/27/2023 (Approximate), Expires: 12/27/2024 [facility] Healthcare Work Phone: Comment on above: Expected: 12/27/2023 (Approximate), Expires: 12/27/2024 Start: 12-27-2023 End: 12-27-2024 US for US OB SCAN FOR GROWTH Imaging Routine Hypothyroidism, unspecified type (CMS/HCC) Excessive growth affecting management of in third trimester, single or unspecified fetus Expected: 12/27/2023 (Approximate), Expires: 12/27/2024 [facility] Healthcare Comment on above: Expected: 12/27/2023 (Approximate), Expires: 12/27/2024 Start: 06-15-2023 Influenza vaccination Flu vacc ine (Season Ended) [facility] Start: 2021 Screening for malignant neoplasm of cervix [facility] Start: 07-25-2021 ULTRASOUND, Provider : OBGYN IVF RDMS ARDEN 1,[facility], Status: Pen, Time: 9:00 AM ULTRASOUND, Provider: OBGYN IVF RDMS ARDEN 1,[facility] OBGYN, Status: Pen, Time: 9:00 AM FE-PYLAO-Cgbpvi 310 IVF Work Phone: Start: 07-16-2021 ULTRASOUND, Provider : OBGYN IVF RDMS [id number] 1,[facility] OBGYN, Status: Pen, Time: 1:00 PM ULTRASOUND, Provider: OBGYN IVF RDMS [id number] 1,[facility] OBGYN, Status: Pen, Time: 1:00 PM VG-GQCXH-Ezhkce 310 IVF Work Phone: Start: 07-07-2021 ULTRASALIN, Provider : Miguel A Barrera, Status: Pen, Time: 10:00 AM ULTRASALIN, Provider: Miguel A Barrera, Status: Pen, Time: 10:00 AM YJ-DMNZR-Hqcpvq 310 IVF Work Phone: Start: 06-05-2020 MAC Imaging Order MG-FREIGHT SEPARATOR-MAC 1200 [place] Work Phone: Start: 11-16-2019 IO Ultrasound, -Reproductive Endocrinology-[facility] chastity 206 Work Phone: Start: 11-14-2019 Blood count complete auto&auto difrntl wbc Complete Blood Count + Differential ED-IWLVX-Rpuuya 310 IVF Work Phone: Start: 11-14-2019 Comprehensive metabolic 2000 panel OP-EEJNG-Vopmyv 310 IVF Work Phone: Start: 11-02-2019 Gonadotropin chorion ic quantitative HCG, Beta Quantitative MP-Reproductive Endocrinology-[place] chast[place] 206 Work Phone: Start: 10-11-2019 IO Ultrasound, limited pelvic, follicle monitoring XP-JVTAY-Wrvkky 310 IVF Work Phone: Start: 10-05-2019 IO Ultrasound, limited pelvic, follicle monitoring BP-JZYGH-Gypvjh 320 Work Phone: Start: 2012 Screening for malignant neoplasm of cervix Pap smear [facility] Start: 2010 DTaP/Tdap/Td vaccine (1 - Tdap) DTaP/Tdap/Td vaccine (1 - Tdap) [facility] Start: 2009 Hepatitis C screening Hepatitis C sc reen [facility] Start: 2006 HIV screening HIV screen [facility] Start: 2003 Depression Screen Depression Screen [facility] Start: 1992 Varicella vaccine (1 of 2 - 2-dose childhood series) Varicella vaccine (1 of 2 - 2-dose childhood series) [facility] Start: 03-02-1992 COVID-19 Vaccine (#1) COVID-19 Vacci ne (#1) [facility] Assay of estradiol Estradiol, Serum MG-FREIGHT SEPARATOR-Risman 310 IVF Work Phone: Comment on above: Approx [id number] Approx [id number] Approx [id number] Assay of progesterone Progesterone, Serum VA-NJOGV-Dzrzyy 310 IVF Work Phone: Comment on above: Approx [id number] Gonadotropin luteinizing hormone Luteinizing Hormone, Serum IQ-OYNHE-Peaiqg 310 IVF Work Phone: Comment on above: Approx [id number] JS-MRYWO-Afbmlp 320 Work Phone: IO Ultrasound, l imited pelvic, follicle monitoring TL-XSAWP-Pnrhdy 310 IVF Work Phone: Comment on above: Approx [id number] Approx [id number] Approx [id number] NEGATED: Highlighted row has been ruled out! Planned Goals not documented CY-SGYEO-Iyqavu 310 IVF Work Phone: Payers Date Payer Category Payer Self-pay 2016 Private Health Insurance [id number] 2016 Private Health Insurance [id number] 1991 Unknown [id number] 2.16.84 0.1.778044.3.579.2.593 1991 Unknown [id number] 2.16.84 0.1.426096.3.579.2.593 1991 Unknown [id number] 2.16.84 0.1.838002.3.579.2.593 1991 Unknown [id number] 2.16.84 0.1.283142.3.579.2.593 1991 Unknown [id number] 2.16.84 0.1.663028.3.579.2.593 1991 Unknown [id number] 2.16.84 0.1.612464.3.579.2.593 1991 Unknown [id number] 2.16.84 0.1.457441.3.579.2.593 1991 Unknown [id number] 2.16.84 0.1.051608.3.579.2.593 1991 Unknown [id number] 2.16.84 0.1.635711.3.579.2.593 1991 Unknown [id number] 2.16.84 0.1.243899.3.579.2.593 1991 Unknown [id number] 2.16.84 0.1.711883.3.579.2.593 1991 Unknown [id number] 2.16.84 0.1.243806.3.579.2.593 1991 Unknown [id number] 2.16.84 0.1.346568.3.579.2.593 1991 Unknown [id number] 2.16.84 0.1.257269.3.579.2.593 1991 Unknown [id number] 2.16.8 40.1.114458.3.579.2.173 1991 Unknown [id number] 2.16.8 40.1.850316.3.579.2.173 1991 Unknown [id number] 2.16. 840.1.755264.3.579.2.196 1991 Unknown [id number] 2.16. 840.1.125886.3.579.2.196 1991 Unknown [id number] 2.16.84 0.1.275047.3.579.2.1259 1991 Unknown [id number] 2.16.84 0.1.355161.3.579.2.1259 1991 Unknown [id number] 2.16.84 0.1.747703.3.579.2.1259 1991 Unknown [id number] 2.16.84 0.1.063641.3.579.2.1259 1991 Unknown [id number] 2.16.840 .1.997985.3.579.2.1259 1991 Unknown [id number] 2.16.840 .1.961002.3.579.2.1259 1959 Self-pay [id number] 1959 Unknown [id number] 1959 Unknown [id number] Unknown [id number] 2.16.8 40.1.630346.3.579.2.243 Unknown [id number] 2.16.8 40.1.036253.3.579.2.243 Unknown Unknown [id number] 2.16.8 40.1.839796.3.579.2.531 Social History Date Type Detail Facility - - [address] Work Phone: Start: 05-11-2023 End: 12-27-2023 Never a smoker Never a smoker [facility] Comment on above: [facility]; Start: 05-11-2023 End: 09-06-2023 Sex Assigned At [facility] Start: 09-22-2022 End: 04-15-2023 Tobacco smoking status LAIS Never smoked tobacco [facility] Work Phone: Start: 09-22-2022 End: 04-15-2023 Tobacco use and exposure Smokeless tobacco non-user [employer] Work Phone: Start: 1991 Sex Assigned At Not on file B ON [employer] Phone: Start: 02-17-2023 End: 02-27-2023 Exposure to SARS-CoV-2 (event) Not sure [employer] Start: 12-27-2023 Alcohol intake Current drinke r [...] status health issues are not documented Disease QV-PDBYS-Uqbqxo 310 IVF Work Phone: Mental Status Date Assessment Result Facility NEGATED: Highlighted row Cognitive function [Interpretation] Cognitive status health issues are not documented Disease NH-ONTGW-Wlhpod 310 IVF Work Phone: History of Present [...] of: ELIZABETH Daly documented in this encounter [facility] Healthcare Evaluation note 12-27-2021 Note Date [...] Patient care instructions given in writting by [facility] Care At Home document. [employer] Other Clinical Note 07-25-2021 Note Date & [...] care. Reviewed plan with Dr. Bruce Aburto, PATIENT ACCOUNT LIAISON 07/25/2021 09:22 note: ob scan LOLLY: 03/05/2022. [...] Plan reviewed by Dr. Healy. Petra Lombardi PATIENT ACCOUNT LIAISON 07/16/21 1409 TC to pt with quant = 3238 form yesterday; normal rise from 728 on 07/02; Pt doing well; no problems with Lovenox. PT transferred to [facility] to schedule OB US for next week at [facility]. Bere Way RN 07/07/2021 11:47 Spoke with patient regarding DZPK=[id number]. Pain=0. Patient states she will begin prometrium BID and Lovenox today. Patient will repeat BHCg on Wednesday when she is at work. Patient aware RN will call her WednesdayJuly 07 with results and plan. Lucy Dunlap R.N.07/03/2021 12:19 Spoke to patient, will start Prometrium 100 mg BID and Lovenox 40 mg BID today (+Protein S deficiency). Arden to f/u with patient tomorrow once HCG level is back. Patient verbalized understanding. Rosibel Sam RN 07/02/2021 13:54 MD note: Reviewed positive test. LMP 7/15, conceived on christy cycle/IC. Plan to get HCG drawn today. Start Prometrium 100mg BID. Start Lovenox 40mg BID SQ. Plan per Dr. Healy. RN to communicate. Petra Lombardi PATIENT ACCOUNT LIAISON 07/02/21 1304 Active Problems 16 weeks gestation [...] directed. Peak F (more content not included)... [employer] Chief complaint Narrative - Reported 06-19-2021 Note [...] 30 year-old who presents for a FET [id number] Hx:06/2020: IOL @ 38 weeks due to [...] contour on HSG - images reviewed from [facility] 08/2018Uterine Cavity Evaluation:Normal uterine cavity on [...] on therapeutic dosing when Genetic Screening Hx: [place] foresethology screen negativePartner History:Franklin Ashley 04/09/1989A in past year:2.8 cc125 mil/mL69% szozvqiiIRV=729 million(recent IUI sample)Morph from original SA was 2.8% [id number] IVF Work Phone: Evaluation note Note Date & Type Note Facility Evaluation note Diagnosis Sprain of left ankle, unspecified ligament, initial encounter- Primary documented in this encounter [employer] Work Phone: Evaluation note Note Date & Type Note Facility Evaluation note Diagnosis Third trimester state, incidental First trimester state, incidental Hypothyroidism, unspecified type (CMS/HCC) Hypothyroidism (acquired) (CMS/HCC) Unspecified hypothyroidism H/O blood clots Excessive growth affecting management of in third trimester, single or unspecified fetus documented in this encounter [facility] Discharge instructions Attachments Note Date & Type Note Facility Hospital Discharge instructions The following attachments cannot be sent through Care Everywhere.Ankle Sprain (Dominican)Ankle Sprain: Rehab Exercises (Dominican)documented in this encounter [employer] Phone: Summary Purpose Family History No Family [...] section and content) DATE CREATED AUTHOR [facility]/15/2019 [facility] DATE CREATED AUTHOR AUTHOR'S ORGANIZ ATION 11/12/2019 [facility] DATE CREATED AUTHOR AUTHOR'S ORGANIZ ATION 08/09/2020 [facility] DATE CREATED AUTHOR AUTHOR'S ORGANIZ ATION 07/26/2021 [employer] DATE CREATED AUTHOR AUTHOR'S ORGANIZ ATION 01/21/2023 [facility] DATE CREATED AUTHOR AUTHOR'S ORGANIZ ATION 03/06/2023 [facility] DATE CREATED AUTHOR AUTHOR'S ORGANIZ ATION 07/12/2023 [facility] DATE CREATED AUTHOR AUTHOR'S ORGANIZ ATION 10/04/2023 [facility] DATE CREATED AUTHOR AUTHOR'S ORGANIZ ATION 01/15/2024 [facility] DATE CREATED AUTHOR AUTHOR'S ORGANIZ ATION 01/24/2024 [facility] EPIC REASON FOR VISIT (unrecogniz ed section and content) Reason Comments Ankle Pain Rolled ankle during morning run. Swelling to lateral ankle. 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 Reason Comments Routine Visit Care Teams (unrecognized sec tion and content) American [employer] Teacher Relationship Specialty Start Date End Date Evelyn Perez [address] [place] [id number] PCP - General Pediatrics 09/22/22 [employer] Teacher Relationship Specialty Start Date End Date Jesse Regan MD [address] [place] [address] PCP - General Family Medicine 11/30/23 FOR [...] BE BASED ON THE PRIMARY CLINICAL RECORDS. [employer] [facility] provides no warranty or guarantee of the accuracy or completeness of information in this document.
[2024-02-03 10:26] VITALS: BP 110/62; PULSE 78
== END 2024-02-03 10:50 | disposition home or self-care (01) ==
LOC: FBCO 06:16 → FBC 10:13
PROVIDERS: Visit Provider Obstetrics & Gynecology
DX: O99.283 Endocrine, nutritional and metabolic diseases complicating pregnancy, third trimester (principal); Z3A.00 Weeks of gestation of pregnancy not specified
CPT/HCPCS: 59025

== ENCOUNTER 2024-02-07 07:25 | Outpatient (OUT) | payer OTHER, SELFPAY ==
--- OUTSIDE RECORDS SUMMARY | 2024-02-07 07:39 | XMS_ITS | CCD ---
Author Organization [facility] Care Team Providers Care Cloth Measurer Name Role Phone Bruce Mayes Attending Unavailable [...] HER Unavailable Unavaila ble OBGYN IVF RDMS [id number] 1, MG OBGYN Unavailable Unavailable Lapkathrine King Unavailable Unavailable Shahla Healy Unavailable Unavailable January, Jami Unavailable Unavailable Evelyn Perez Unavailable [phone] Unavailable Unavailable Unavailable Unavailable Sabina Barnhart Unavailable [...] Unavailable GISSEL ., DR CRMU Admitting Unavailable ANA, DR EVELYN Husain Primary Care Unavail able GISSEL ., DR CRUM Attending Unavailable GISSEL ., DR CRUM Admitting Unavailable ANA, DR EVELYN Huasin Primary Care Unavail able GISSEL ., DR CRUM Attending Unavailable GISSEL ., DR CRUM Admitting Unavailable Ana, Evelyn Husain Primary Care Provider JAMI ROMERO Attending Unavailable ANA, EVELYN Husain Primary Care Unavailabl e ANA, EVELYN M Primary Care UnavailLc Rick Admitting Unavailable Evelyn Perez Primary Care Unavailable Lc Waite Attending Unavailable Jesse Regan MD Primary [facility] Zoya Cheung Attending Evelyn Robertson MD Primary [...] sources) Progesterone; Translations: [Progesterone OIL] Drug Allergy [id number] n 310 IVF Work Phone: (16 sources) Progesterone; Translations: [Progesterone OIL] Drug Allergy 2 [facility] (2 sources) sesame seed extract Drug Allergy [facility] (2 sources) Progesterone Drug Allergy 2 [facility] (1 source) No Known Medication Allergies; Translations: [...] Kelechi Gage MD Start : 14-Aug-2019 Active [id number] 200 actuat albuterol 0.09 mg/actuat metered dose [...] DO Start : 19-Jan-2019 Active BD Disp Hollis 27G X 1/2 (19 sources) Start: 10-03-2019 BD Disp Needle s 27G X 1/2 USE DIRECTED. Quantity: 2 Refills: 2 Shahla Healy MD Start : 03-Oct-2019 Active chorionic gonadotropin 49831 unt/ml injectable solution (19 sources) Gonadotropin Start: 10-03-2019 Chorionic Gonadotropin 34173 UNIT Intramuscular Solution Reconstituted USE DIRECTED. Quantity: [...] Start : 25-Dec-2019 Active Peak Flow Meter Houston Rang Device (3 sources) Start: 01-23-2020 Peak Flow Mete r [place] Rang Device USE DIRECTED. Quantity: 1 Refills: [...] refills. Continue with anticoagulation as prescribed by WEB MASTER, patient is currently 30 weeks gestation. Follow-up [...] embolism Historical No qualifying data Procedure/Surgical History Gideon Teeth Removal (2005) IVF (11/15/2018) Medications Dulera [...] Demographics: Name: KIARA ASHLEY Date: 1990 Address: [address] [place] [address] Date and Time: 12-Jul-2023 09:31 Caller Information: call from Call From: patient Caller Name: Kiara Primary Phone Number: [phone] Reason for Call: Reason for Callmedication question [...] 09:57 by Harmony Ross (N MGR) Normal [facility] XR ANKLE LEFT (MIN 3 VIEWS)o [...] Dario William MD 02/27/23 Final result Normal [facility] 1. No acute osseous abnormality involving the left ankle. [facility] EXAMINATION: THREE XRAY VIEWS OF THE LEFT ANKLE 02/27/2023 11:46 am COMPARISON: None. HISTORY: ORDERING SYSTEM PROVIDED HISTORY: pain, swelling TECHNOLOGIST PROVIDED HISTORY: pain, swelling FINDINGS: The bone mineralization is within normal limits. The ankle mortise is stable. No acute fractures or dislocations are seen. There is no soft tissue swelling. [facility] Dario William MD - 02/27/2023 [...] HEALTH Work Phone: Radiology Study observation (narrative) [employer] Phone: XR ANKLE LEFT (MIN 3 VIEWS)O rdered By: Dario William on 02-27-2023 [employer] Phone: PAP ACOG PANEL 2: 30 to 65on 01-19-2023 . . Normal [facility] Comment on above: Result Comment: Perf ormed at: WB Performed By: #### [id number] #### [facility] [address] [address] [address] Claire Mayes Age Gdln ACOG Testing 30-65 Normal [facility] Comment on above: Performed By: #### [id number] #### [facility] [address] [address] [address] Claire Mayes DIAGNOSIS: Comment Normal [facility] Comment on above: Result Comment: NEGA TIVE FOR INTRAEPITHELIAL LESION OR MALIGNANCY. Performed at: WB Performed By: #### [id number] #### [facility] [address] [address] [address] Claire Mayes HPV Aptima Negative Normal Negative [facility] Comment on above: Result Comment: This nucleic acid amplification test detects fourteen high-risk HPV types (16,18,31,33,35,39,45,51,52,56,58,59,66,68) without differentiation. Performed at: =G Performed By: #### [id number] #### [facility] [address] [address] [address] Claire Mayes HPV Genotype Reflex Comment Normal [facility] Comment on above: Result Comment: Crit eria not met, HPV Genotype not performed. Performed at: WB Performed By: #### [id number] #### [facility] [address] [address] [address] Claire Mayes Methodology: Comment Normal [facility] Comment on above: Result Comment: This liquid based ThinPrep(R) pap test was screened with the use of an image guided system. Performed at: WB Performed By: #### [id number] #### [facility] [address] [place] [address] Dr. Claire Mayes Note: Comment [facility] Comment on above: Result Comment: The Pap smear is a screening test designed to aid in the detection of premalignant and malignant conditions of the uterine cervix. It is not a diagnostic procedure and should not be used as the sole means of detecting cervical cancer. Both false-positive and false-negative reports do occur. . Performed at: WB Performed By: #### [id number] #### [facility] [address] [place] [address] Dr. Claire Mayes Performed by: Comment Normal [facility] Comment on above: Result Comment: Sherlyn Wright, Ship Scraper (ASCP) Performed at: WB Performed By: #### [id number] #### [facility] [address] [place] [address] Dr. Claire Mayes Specimen adequacy: Comment Normal [facility] Comment on above: Result Comment: Sati sfactory for evaluation. No endocervical component is identified. Performed at: WB Performed By: #### [id number] #### [facility] [address] [place] [address] Dr. Claire Mayes CBC with Diffon 09-22-2022 Abs. Basophil 0.03 k/uL Normal 0.00-0.20 [facility] Comment on above: Performed By: #### L BJ BUCK, CP #### [facility] [address] [place] [address] Dr. [place], [facility] Stain Applicator: Jesse Curry MD Abs.Imm.Granulocy te 0.04 k/uL Normal 0.00-0.30 [facility] Comment on above: Performed By: #### L CIELO CDP, CP #### [facility] [address] [place] [id number] Stain Applicator: Jesse Curry MD Abs.Neutrophil (Seg) 12.54 k/uL High 1.50-8.10 [facility] Comment on above: Performed By: #### L IP, CDP, CP #### [facility] [address] [place], [facility] Stain Applicator: Jesse Curry MD Basophils/100 WBC (Bld) 0 % Normal 0-2 [facility] Comment on above: Performed By: #### L IP, CDP, CP #### [address] [place], [facility] Stain Applicator: Jesse Curry MD Eosinophils (Bld) [#/Vol] 0.16 10*3/uL Normal 0.00-0.44 [facility] Comment on above: Performed By: #### L IP, CDP, CP #### [address] [place] [address] Stain Applicator: Jesse Curry MD Eosinophils/100 WBC (Bld) 1 % Normal 1-4 [facility] Comment on above: Performed By: #### L IP, CDP, CP #### [address] [place], [place] [address] Stain Applicator: Jesse Curry MD Erythrocyte distribution width (RBC) [Ratio] 13.6 % Normal 11.8-14.4 [facility] Comment on above: Performed By: #### L IP, CDP, CP #### [address] [place], [place] [address] Stain Applicator: Jesse Curry MD Hematocrit (Bld) [Volume fraction] 46.4 % Normal 36.3-47.1 [facility] Comment on above: Performed By: #### L IP, CDP, CP #### [address] [place] [id number] Stain Applicator: Jesse Curry MD Hemoglobin (Bld) [Mass/Vol] 15.6 g/dL High 11.9-15.1 [facility] Comment on above: Performed By: #### L IP, CDP, CP #### [facility] [address] [place], [place] [id number] Stain Applicator: Jesse Curry MD Immature granulocytes/100 WBC (Bld) 0 % Normal 0 [facility] Comment on above: Performed By: #### L IP, CDP, CP #### [address] [place], [place] 0489783 Stain Applicator: Jesse Curry MD Lymphocytes (Bld) [#/Vol] 0.98 10*3/uL Low 1.10-3.70 [facility] Comment on above: Performed By: #### L IP, CDP, CP #### [address] [place], [facility] Stain Applicator: Jesse Curry MD Lymphocytes/100 WBC (Bld) 7 % Low 24-43 [facility] Comment on above: Performed By: #### L IP, CDP, CP #### [address] [place], [facility] Stain Applicator: Jesse Curry MD MCH (RBC) [Entitic mass] 30.4 pg Normal 25.2-33.5 [facility] Comment on above: Performed By: #### L IP, CDP, CP #### [address] [place], [facility] Stain Applicator: Jesse Curry MD MCHC (RBC) [Mass/Vol] 33.6 g/dL Normal 28.4-34.8 [facility] Comment on above: Performed By: #### L IP, CDP, CP #### [address] [place], [place] [id number] Stain Applicator: Jesse Curry MD MCV (RBC) [Entitic vol] 90.3 fL Normal 82.6-102.9 [facility] Comment on above: Performed By: #### L IP, CDP, CP #### [address] [place], [facility] Stain Applicator: Jesse Curry MD Monocytes (Bld) [#/Vol] 0.58 10*3/uL Normal 0.10-1.20 [facility] Comment on above: Performed By: #### L IP, CDP, CP #### [facility] [address] [place] [address] Dr. [place], [facility] Stain Applicator: Jesse Curry MD Monocytes/100 WBC (Bld) 4 % Normal 3-12 [facility] Comment on above: Performed By: #### L IP, CDP, CP #### [address] [place], [place] [address] Stain Applicator: Jesse Curry MD Neutrophil (Seg) 88 % High 36-65 [facility] Comment on above: Performed By: #### L IP, CDP, CP #### [address] [place], [facility] Stain Applicator: Jesse Curry MD NRBC Automated 0.0 per 100 WBC Normal 0.0 [facility] Comment on above: Performed By: #### L IP, CDP, CP #### [address] [place], [facility] Stain Applicator: Jsese Curry MD Platelet mean volume (Bld) [Entitic vol] 9.9 fL Normal 8.1-13.5 [facility] Comment on above: Performed By: #### L IP, CDP, CP #### [facility] [address] [place] [address] Dr. [place], [facility] Stain Applicator: Jesse Curry MD Platelets (Bld) [#/Vol] 299 10*3/uL Normal 138-453 [facility] Comment on above: Performed By: #### L IP, CDP, CP #### [address] [place], [facility] Stain Applicator: Jesse Curry MD RBC (Bld) [#/Vol] 5.14 10*6/uL High 3.95-5.11 [facility] Comment on above: Performed By: #### L BJ BUCK, CP #### [facility] [address] [place], [place] [id number] Stain Applicator: Jesse Curry MD WBC (Bld) [#/Vol] 14.3 10*3/uL High 3.5-11.3 [facility] Comment on above: Performed By: #### L BJ BUCK, CP #### [facility] [address] [place], [place] [id number] Stain Applicator: Jesse Curry MD CT ABDOMEN PELVIS W [...] or abdominopelvic lymphadenopathy. Interpreted by: Miguel A Maldondao DO Signed by: Miguel A Maldonado DO 09/22/22 Final result Normal [facility] Comp Metabolic Profon 2021 Albumin [Mass/Vol] 4.7 g/dL Normal 3.5-5.2 [facility] Comment on above: Performed By: #### L IP, CDP, CP #### [facility] [address] [place] [address] Stain Applicator: Jesse Curry MD Albumin/Glob Ratio 2.0 Normal 1.0-2.5 [facility] Comment on above: Performed By: #### L IP, CDP, CP #### [address] [place] [address] Stain Applicator: Jesse Curry MD Alkaline Phos 77 U/L Normal 35-104 [facility] Comment on above: Performed By: #### L IP, CDP, CP #### [address] [place] [address] Stain Applicator: Jesse Curry MD ALT [Catalytic activity/Vol] 10 U/L Normal 5-33 [facility] Comment on above: Performed By: #### L IP, CDP, CP #### [address] [place] [address] Stain Applicator: Jesse Curry MD Anion gap [Moles/Vol] 12 mmol/L Normal 9-17 [facility] Comment on above: Performed By: #### L IP, CDP, CP #### [address] [place] [address] Stain Applicator: Jesse Curry MD AST [Catalytic activity/Vol] 14 U/L Normal <32 [facility] Comment on above: Performed By: #### L IP, CDP, CP #### [facility] [address] [place], [place] [id number] Stain Applicator: Jesse Curry MD Bilirubin [Mass/Vol] 0.6 mg/dL Normal 0.3-1.2 [facility] Comment on above: Performed By: #### L IP, CDP, CP #### [facility] [address] [place], [place] [address] Stain Applicator: Jesse Curry MD BUN/CRE Ratio 31 High 9-20 [facility] Comment on above: Performed By: #### L IP, CDP, CP #### [facility] [address] [place], [place] 557[address]83 Stain Applicator: Jesse Curry MD Calcium [Mass/Vol] 9.8 mg/dL Normal 8.6-10.4 [facility] Comment on above: Performed By: #### L IP, CDP, CP #### [facility] [address] [place], [place] [id number] Stain Applicator: Jesse Curry MD Chloride [Moles/Vol] 104 mmol/L Normal 98-107 [facility] Comment on above: Performed By: #### L IP, CDP, CP #### [facility] [address] [place], [place] 3118383 Stain Applicator: Jesse Curry MD CO2 [Moles/Vol] 22 mmol/L Normal 20-31 [facility] Comment on above: Performed By: #### L IP, CDP, CP #### [facility] [address] [place], [place] [id number] Stain Applicator: Jesse Curry MD Creatinine [Mass/Vol] 0.85 mg/dL Normal 0.50-0.90 [facility] Comment on above: Performed By: #### L IP, CDP, CP #### [facility] [address] [place], [place] 8[address]83 Stain Applicator: Jesse Curry MD GFR/1.73 sq M.predicted among non-blacks MDRD (S/P/Bld) [Vol rate/Area] mL/min/{1.73_m2} Normal >60 [facility] Comment on above: Result Comment: Effective [...] By: #### L BJ BUCK, CP #### [address] [place] [address] Stain Applicator: Jesse Curry MD Glucose [Mass/Vol] 109 mg/dL High 70-99 [facility] Comment on above: Performed By: #### L CIELO CDP, CP #### [facility] [address] [place] [address] [place] [address] Stain Applicator: Jesse Curry MD Potassium [Moles/Vol] 4.0 mmol/L Normal 3.7-5.3 [facility] Comment on above: Performed By: #### L IP CDP, CP #### [address] [place] [address] Stain Applicator: Jesse Curry MD Protein [Mass/Vol] 7.1 g/dL Normal 6.4-8.3 [facility] Comment on above: Performed By: #### L IP CDP, CP #### [facility] [address] [place] [address] [place] [address] Stain Applicator: Jesse Curry MD Sodium [Moles/Vol] 138 mmol/L Normal 135-144 [facility] Comment on above: Performed By: #### L IP CDP, CP #### [address] [place] [address] Stain Applicator: Jesse Curry MD Urea nitrogen [Mass/Vol] 26 mg/dL High 6-20 [facility] Comment on above: Performed By: #### L BJ BUCK, CP #### [facility] [address] [place] [address] Stain Applicator: Jesse Curry MD HCG, ,Urineon 09-22 Beta HCG ( test) Ql (U) Negative Normal NEG [facility] Comment on above: Result Comment: Spec imens with hCG levels near the threshold of the test (25 mIU/mL) may give a negative or indeterminate result. In such cases, another test should be performed with a new specimen in 48-72 hours. If early is suspected clinically in this setting, correlation with quantitative serum b-hCG level is suggested. [facility] has confirmed the use of plasma for this test. This has not been cleared or approved by the U.[place]. Food and Drug Administration. The FDA has determined that such clearance is not necessary. Performed By: #### U HCG #### [facility] [address] [place] [address] Stain Applicator: Jesse Curry MD Lactic Acidon 5134 Lactate [Moles/Vol] 1.8 mmol/L Normal 0.5-2.2 [facility] Comment on above: Performed By: #### L ACTIC #### [facility] [address] [place] [address] Stain Applicator: Jesse Curry MD Lipaseon 5 Lipase [Catalytic activity/Vol] 39 U/L Normal 13-60 [facility] Comment on above: Performed By: #### L BJ BUCK, CP #### [facility] [address] [place] [address] Stain Applicator: Jesse Curry MD UA w/Reflex Cultureon 2021 Bilirubin, SemiQt,Ur Negative Normal NEG [facility] Comment on above: Performed By: #### U MICAO, UAX #### [facility] [address] [place], [place] [id number] Stain Applicator: Jesse Curry MD Blood, Urine Negative Normal NEG [facility] Comment on above: Performed By: #### U MICAO, UAX #### [facility] [address] [place], [place] [id number] Stain Applicator: Jesse Curry MD Clarity (U) Clear Normal CLEAR [facility] Comment on above: Performed By: #### U MICAO, UAX #### [facility] [address] [place], [place] [id number] Stain Applicator: Jesse Curry MD Color (U) Yellow Normal YEL [facility] Comment on above: Performed By: #### U MICAO, UAX #### [address] [place], [place] [id number] Stain Applicator: Jesse Curry MD Glucose Ql (U) Negative Normal NEG [facility] Comment on above: Performed By: #### U MICAO, UAX #### [address] [place], [place] [id number] Stain Applicator: Jesse Curry MD Ketones Ql (U) Negative Normal NEG [facility] Comment on above: Performed By: #### U MICAO, UAX #### [facility] [address] [place] [address] Dr. [place], [place] [id number] Stain Applicator: Jesse Curry MD Leukocyte esterase Test strip Ql (U) Negative Normal NEG [facility] Comment on above: Performed By: #### U MICAO, UAX #### [address] [place], [place] [id number] Stain Applicator: Jesse Curry MD Nitrite,Ur Negative Normal NEG [facility] Comment on above: Performed By: #### U MICAO, UAX #### [facility] [address] [place] [address] Dr. [place], [place] [id number] Stain Applicator: Jesse Curry MD PH,Ur 8.0 Normal 5.0-9.0 [facility] Comment on above: Performed By: #### U MICAO, UAX #### [facility] [address] [place] [address] Stain Applicator: Jesse Curry MD Protein Ql (U) Negative Normal NEG [facility] Comment on above: Performed By: #### U MICAO, UAX #### [facility] [address] [place], [place] 4958183 Stain Applicator: Jesse Curry MD Spec. [place],Ur 1.020 Normal 1.010-1.020 [facility] Comment on above: Performed By: #### U MICAO, UAX #### [facility] [address] [place] [address] Dr. [place], [facility] Stain Applicator: Jesse Curry MD Urobilinogen,Ur Normal Normal NORM [facility] Comment on above: Performed By: #### U MICAO, UAX #### [address] [place], [facility] Stain Applicator: Jesse Curry MD Urinalysis,Microon 2 Bacteria TRACE Abnormal NONE [facility] Comment on above: Performed By: #### U MICAO, UAX #### [facility] [address] [place], [facility] Stain Applicator: Jesse Curry MD Epithelial cells LM Ql (Urine sed) 0 TO 2 Normal 0-25 [facility] Comment on above: Performed By: #### U MICAO, UAX #### [facility] [address] [place] [address] Stain Applicator: Jesse Curry MD Urine RBC's None Normal 0-2 [facility] Comment on above: Performed By: #### U MICAO, UAX #### [facility] [address] [place], [place] [id number] Stain Applicator: Jesse Curry MD Urine WBC's 0 TO 2 Normal 0-5 [facility] Comment on above: Performed By: #### U MICAO, UAX #### [facility] [address] [place] [address] Stain Applicator: Jesse Curry MD CBC AUTO DIFFon 02-20-2022 BASO # 0.1 103/ul Normal 0.0-0.1 [facility] Comment on above: Performed By: #### C BC #### [facility] [address] [place] [address] Dr. Claire Mayes Basophils/100 WBC (Bld) 0.8 % Normal 0.2-2.0 [facility] Comment on above: Performed By: #### C BC #### [facility] [address] [place] [address] Dr. Claire Mayes EO # 0.2 103/ul Normal 0.0-0.7 [facility] Comment on above: Performed By: #### C BC #### [facility] [address] [place] [address] Dr. Claire Mayes Eosinophils/100 WBC (Bld) 0.9 % Normal 0.9-7.0 [facility] Comment on above: Performed By: #### C BC #### [facility] [address] [place] [address] Dr. Claire Mayes Erythrocyte distribution width (RBC) [Ratio] 15.0 % Normal 11.0-15.0 [facility] Comment on above: Performed By: #### C BC #### [facility] [address] [place] [address] Dr. Claire Mayes Hematocrit (Bld) [Volume fraction] 31.3 % Critically low 36.0-48.0 [facility] Comment on above: Performed By: #### C BC #### [facility] [address] [place] [address] Dr. Claire Mayes Hemoglobin (Bld) [Mass/Vol] 10.3 g/dL Critically low 12.0-16.0 [facility] Comment on above: Performed By: #### C BC #### [facility] [address] [place] [address] Dr. Claire Mayes IG # 0.21 10e3/ul Critically high 0.00-0.03 [facility] Comment on above: Performed By: #### C BC #### [facility] [address] [place] [address] Dr. Claire Mayes IG % 1.3 % Critically high 0.0-0.5 [facility] Comment on above: Performed By: #### C BC #### [facility] [address] [place] [address] Dr. Claire Mayes LYMPH # 2.1 103/ul Normal 1.2-3.8 [facility] Comment on above: Performed By: #### C BC #### [facility] [address] [place] [address] Dr. Claire Mayes Lymphocytes/100 WBC (Bld) 12.6 % Critically low 20.5-60.0 [facility] Comment on above: Performed By: #### C BC #### [facility] [address] [place] [address] Dr. Claire Mayes MANUAL DIFF REQ NO Normal [facility] Comment on above: Performed By: #### C BC #### [facility] [address] [place] [address] Dr. Claire Mayes MCH (RBC) [Entitic mass] 29.8 pg Normal 26.7-34.0 [facility] Comment on above: Performed By: #### C BC #### [facility] [address] [place] [address] Dr. Claire Mayes MCHC (RBC) [Mass/Vol] 32.9 g/dL Normal 29.9-35.2 [facility] Comment on above: Performed By: #### C BC #### [facility] [address] [place] [address] Dr. Claire Mayes MCV (RBC) [Entitic vol] 90.5 fL Normal 81.0-99.0 [facility] Comment on above: Performed By: #### C BC #### [facility] [address] [place] [address] Dr. Claire Mayes MONO # 0.8 103/ul Normal 0.3-0.8 [facility] Comment on above: Performed By: #### C BC #### [facility] [address] [address] [address] Claire Mayes Monocytes/100 WBC (Bld) 5.1 % Normal 1.7-12.0 [facility] Comment on above: Performed By: #### C BC #### [facility] [address] [place] [address] Dr. Claire Mayes NEUT # 13.2 103/ul Critically high 1.4-6.5 [facility] Comment on above: Performed By: #### C BC #### [facility] [address] [place] [address] Dr. Claire Mayes Neutrophils/100 WBC (Bld) 79.3 % Critically high 43.0-75.0 [facility] Comment on above: Performed By: #### C BC #### [facility] [address] [place] [address] Dr. Claire Mayes Platelet mean volume (Bld) [Entitic vol] 10.4 fL Normal 9.5-13.5 [facility] Comment on above: Performed By: #### C BC #### [facility] [address] [place] [address] Dr. Claire Mayes PLT 233 103/ul Normal 150-450 [facility] Comment on above: Performed By: #### C BC #### [facility] [address] [place] [address] Dr. Claire Mayes RBC 3.46 106/ul Critically low 4.20-5.40 [facility] Comment on above: Performed By: #### C BC #### [facility] [address] [place] [address] Dr. Claire Mayes WBC 16.6 103/ul Critically high 4.0-11.0 [facility] Comment on above: Performed By: #### C BC #### [facility] [address] [address] [address] Claire Mayes CBC AUTO DIFFon 02-18-2022 BASO # 0.1 103/ul Normal 0.0-0.1 [facility] Comment on above: Performed By: #### C BC #### [facility] [address] [address] [address] Claire Mayes Basophils/100 WBC (Bld) 0.7 % Normal 0.2-2.0 [facility] Comment on above: Performed By: #### C BC #### [facility] [address] [address] [address] Claire Mayes EO # 0.2 103/ul Normal 0.0-0.7 [facility] Comment on above: Performed By: #### C BC #### [facility] [address] [place] [address] Dr. Claire Mayes Eosinophils/100 WBC (Bld) 1.2 % Normal 0.9-7.0 [facility] Comment on above: Performed By: #### C BC #### [facility] [address] [address] [address] Claire Mayes Erythrocyte distribution width (RBC) [Ratio] 15.0 % Normal 11.0-15.0 [facility] Comment on above: Performed By: #### C BC #### [facility] [address] [place] [address] Dr. Claire Mayes Hematocrit (Bld) [Volume fraction] 35.1 % Critically low 36.0-48.0 [facility] Comment on above: Performed By: #### C BC #### [facility] [address] [address] [address] Claire Mayes Hemoglobin (Bld) [Mass/Vol] 11.8 g/dL Critically low 12.0-16.0 [facility] Comment on above: Performed By: #### C BC #### [facility] [address] [address] [address] Claire Mayes IG # 0.30 10e3/ul Critically high 0.00-0.03 [facility] Comment on above: Performed By: #### C BC #### [facility] [address] [place] [address] Dr. Claire Mayes IG % 1.9 % Critically high 0.0-0.5 [facility] Comment on above: Performed By: #### C BC #### [facility] [address] [place] [address] Dr. Claire Mayes LYMPH # 2.9 103/ul Normal 1.2-3.8 [facility] Comment on above: Performed By: #### C BC #### [facility] [address] [place] [address] Dr. Claire Mayes Lymphocytes/100 WBC (Bld) 18.5 % Critically low 20.5-60.0 [facility] Comment on above: Performed By: #### C BC #### [facility] [address] [place] [address] Dr. Claire Mayes MANUAL DIFF REQ NO Normal [facility] Comment on above: Performed By: #### C BC #### [facility] [address] [place] [address] Dr. Claire Mayes MCH (RBC) [Entitic mass] 30.2 pg Normal 26.7-34.0 [facility] Comment on above: Performed By: #### C BC #### [facility] [address] [place] [address] Dr. Claire Mayes MCHC (RBC) [Mass/Vol] 33.6 g/dL Normal 29.9-35.2 [facility] Comment on above: Performed By: #### C BC #### [facility] [address] [place] [address] Dr. Claire Mayes MCV (RBC) [Entitic vol] 89.8 fL Normal 81.0-99.0 [facility] Comment on above: Performed By: #### C BC #### [facility] [address] [place] [address] Dr. Claire Mayes MONO # 0.7 103/ul Normal 0.3-0.8 [facility] Comment on above: Performed By: #### C BC #### [facility] [address] [place] [address] Dr. Claire Mayes Monocytes/100 WBC (Bld) 4.7 % Normal 1.7-12.0 [facility] Comment on above: Performed By: #### C BC #### [facility] [address] [place] [address] Dr. Claire Mayes NEUT # 11.3 103/ul Critically high 1.4-6.5 [facility] Comment on above: Performed By: #### C BC #### [facility] [address] [place] [address] Dr. Claire Mayes Neutrophils/100 WBC (Bld) 73.0 % Normal 43.0-75.0 [facility] Comment on above: Performed By: #### C BC #### [facility] [address] [place] [address] Dr. Claire Mayes Platelet mean volume (Bld) [Entitic vol] 10.8 fL Normal 9.5-13.5 [facility] Comment on above: Performed By: #### C BC #### [facility] [address] [place] [address] Dr. Claire Mayes PLT 233 103/ul Normal 150-450 [facility] Comment on above: Performed By: #### C BC #### [facility] [address] [place] [address] Dr. Claire Mayes RBC 3.91 106/ul Critically low 4.20-5.40 [facility] Comment on above: Performed By: #### C BC #### [facility] [address] [place] [address] Dr. Claire Mayes WBC 15.5 103/ul Critically high 4.0-11.0 [facility] Comment on above: Performed By: #### C BC #### [facility] [address] [place] [address] Dr. Claire Mayes Covid-19 PCR [facility]on SARS-CoV-2 (COVID-19) RNA FERDINAND+probe Ql (Unsp spec) Not detected Normal NOT DETECTED [facility] Comment on above: Result Comment: [...] for this test is supported by the [place] of Health and Human Service's declaration that [...] used). Performed By: #### C VDTBH #### [facility] [address] [place] [address] Dr. Claire Mayes DRUG SCREEN RAPID (URINE)on 02-18-2022 AMP Negative Normal NEGATIVE [facility] Comment on above: Performed By: #### D RUGRPD #### [facility] [address] [place] [address] Dr. Claire Mayes BAR Negative Normal NEGATIVE [facility] Comment on above: Performed By: #### D RUGRPD #### [facility] [address] [place] [address] Dr. Claire Mayes BUP Negative Normal NEGATIVE [facility] Comment on above: Performed By: #### D RUGRPD #### [facility] [address] [place] [address] Dr. Claire Mayes BZO Negative Normal NEGATIVE [facility] Comment on above: Performed By: #### D RUGRPD #### [facility] [address] [place] [address] Dr. Claire Mayes KIT Negative Normal NEGATIVE [facility] Comment on above: Performed By: #### D RUGRPD #### [facility] [address] [place] [address] Dr. Claire Mayes CUT-OFFS SEE BELOW Normal [facility] Comment on above: Result Comment: [...] ng/mL Performed By: #### D RUGRPD #### [facility] [address] [place] [address] Dr. Claire Mayes DRUG CUT HEADER DRUG CLASS TEST SYST EM CUT-OFF CONCENTRATIONS ARE FOLLOWS: Normal [facility] Comment on above: Performed By: #### D RUGRPD #### [facility] [address] [place] [address] Dr. Claire Mayes mAMP Negative Normal NEGATIVE [facility] Comment on above: Performed By: #### D RUGRPD #### [facility] [address] [place] [address] Dr. Claire Mayes MTD Negative Normal NEGATIVE [facility] Comment on above: Performed By: #### D RUGRPD #### [facility] [address] [place] [address] Dr. Claire Mayes OPI Negative Normal NEGATIVE [facility] Comment on above: Performed By: #### D RUGRPD #### [facility] [address] [place] [address] Dr. Claire Mayes OXY Negative Normal NEGATIVE [facility] Comment on above: Performed By: #### D RUGRPD #### [facility] [address] [place] [address] Dr. Claire Mayes PCP Negative Normal NEGATIVE [facility] Comment on above: Performed By: #### D RUGRPD #### [facility] [address] [place] [address] Dr. Claire Mayes PPX Negative Normal NEGATIVE [facility] Comment on above: Performed By: #### D RUGRPD #### [facility] [address] [address] [address] Claire Mayes TCA Negative Normal NEGATIVE [facility] Comment on above: Performed By: #### D RUGRPD #### [facility] [address] [address] [address] Claire Mayes THC Negative Normal NEGATIVE [facility] Comment on above: Performed By: #### D RUGRPD #### [facility] [address] [address] [address] Claire Mayes TYPE AND SCREENon 02-18-2022 TYPE AND SCREEN Negative Normal [facility] Comment on above: Performed By: #### T NS #### [facility] [address] [address] [address] Claire Mayes US PREG BIOPHY W [...] JESSE THOMAS Date: 2022-02-17 14:27 Normal [facility] US PREG BIOPHY W NON [...] by: BLU FELIPE Date: 2022-02-10 16:40 Normal [facility] GROUP B STREP CULTUREon 01-14 S. agalactiae Ag Ql (Unsp spec) Culture Observations: Beta Strep called to Belgica Lange at office 02/04/22 @[address] [place] [address] Isolate 1 Streptococcus agalactiae Heavy growth of ORGANISM 1 Streptococcus agalactiae ANTIBIOTIC M.I.C RX STATUS Benzylpenicillin <=0.06 S F Ampicillin <=0.25 S F Cefotaxime <=0.12 S F Ceftriaxone <=0.12 S F Levofloxacin 0.5 S F Erythromycin 2 R F Clindamycin <=0.25 S F Linezolid <=2 S F Vancomycin 0.5 S F Tetracycline >=16 R F Normal [facility] Comment on above: Performed By: #### G BSCX #### [facility] [address] [place] [address] Dr. Claire Mayes US PREG BIOPHY W [...] JESSE THOMAS Date: 2022-02-03 16:02 Normal [facility] LMPon 06-19-2021 Last menstrual period start date [id number] UC-IUCJQ-Ynitw n 310 IVF Work Phone: MOTO MIX OPERATOR - Office Visiton MOTO MIX OPERATOR - Office Visit Diagnoses/Problems Assessed Irregular menses (626.4) (N92.6) Female infertility (628.9) (N97.9) Protein S deficiency (289.81) (D68.59) Occupation [facility] ED Provider Impressions 30 year-old desires to [...] ] Imaging: Saline US, can do at [facility] [x ] Vitamin D, TSH, prolactin [ [...] pandemic. Verbal consent obtained for telemedicine visit. [employer]uru[employer] History of Present IllnessIVF Consult: Patient is [...] contour on HSG - images reviewed from [facility] 08/2018 Uterine Cavity Evaluation: Normal [...] Peak E2 1871--> IM P4--> successful IUP WEB MASTER Hx: LMP: 05/29/21 Menstrual cycles: Have been fairly regular for the past 3 months; 30-35 days Pap smear: 2019, up to date Mammogram: None PMH/Surg Hx/Social Hx: See below Hx of Clotting disorders: Yes- Protein S deficiency Currently on Lovenox 40 mg daily Was on Lovenox 60 mg daily prior to Needs to be on therapeutic dosing when Genetic Screening Hx: Edutor screen negative Partner History: Franklin Ashley 04/09/1990 SA in past year: 2.8 cc 125 mil/mL 69% motility XDZ=438 million (recent IUI sample) Morph from original SA was 2.8% Active Problems Problems 16 weeks gest (more content not included)... Normal [employer] CBC AND DIFFERENTIALon 08-06 % AUTOMATED IMMATURE GRAN 0.3 % Normal 0.0 - 0.9 [facility] Comment on above: Result Comment: Graciela ture Granulocyte Count (IG) includes promyelocytes, myelocytes and metamyelocytes but does not include bands. Percent differential counts (%) should be interpreted in the context of the absolute cell counts (cells/L). Performed By: #### C BCDF #### [address] [place] [address] Basophils (Bld) [#/Vol] 0.09 10*3/uL Normal 0.00 - 0.10 [facility] Comment on above: Performed By: #### C BCDF #### [address] [place] [address] Basophils/100 WBC (Bld) 0.9 % Normal 0.0 - 2.0 [facility] Comment on above: Performed By: #### C BCDF #### [address] [place] [address] Eosinophils (Bld) [#/Vol] 0.23 10*3/uL Normal 0.00 - 0.70 [facility] Comment on above: Performed By: #### C BCDF #### [address] [place] [address] Eosinophils/100 WBC (Bld) 2.4 % Normal 0.0 - 6.0 [facility] Comment on above: Performed By: #### C BCDF #### [address] [place] [address] Erythrocyte distribution width (RBC) [Ratio] 14.3 % Normal 11.5 - 14.5 [facility] Comment on above: Performed By: #### C BCDF #### [address] [place] [address] Hematocrit (Bld) [Volume fraction] 40.4 % Normal 36.0 - 46.0 [facility] Comment on above: Performed By: #### C BCDF #### [address] [place] [address] Hemoglobin (Bld) [Mass/Vol] 12.9 g/dL Normal 12.0 - 16.0 [facility] Comment on above: Performed By: #### C BCDF #### [address] [place] [address] Lymphocytes (Bld) [#/Vol] 2.44 10*3/uL Normal 1.20 - 4.80 [facility] Comment on above: Performed By: #### C BCDF #### [address] [place] [address] Lymphocytes/100 WBC (Bld) 25.7 % Normal 13.0 - 44.0 [facility] Comment on above: Performed By: #### C BCDF #### [address] [place] [address] MCHC (RBC) [Mass/Vol] 31.9 g/dL Low 32.0 - 36.0 [facility] Comment on above: Performed By: #### C BCDF #### [address] [place] [address] MCV (RBC) [Entitic vol] 88 fL Normal 80 - 100 [facility] Comment on above: Performed By: #### C BCDF #### [address] [place] [address] Monocytes (Bld) [#/Vol] 0.55 10*3/uL Normal 0.10 - 1.00 [facility] Comment on above: Performed By: #### C BCDF #### [address] [place] [address] Monocytes/100 WBC (Bld) 5.8 % Normal 2.0 - 10.0 [facility] Comment on above: Performed By: #### C BCDF #### [address] [place] [address] Neutrophils (Bld) [#/Vol] 6.15 10*3/uL Normal 1.20 - 7.70 [facility] Comment on above: Performed By: #### C BCDF #### [address] [place] [address] Neutrophils/100 WBC (Bld) 64.9 % Normal 40.0 - 80.0 [facility] Comment on above: Performed By: #### C BCDF #### [address] [place] [address] Platelets (Bld) [#/Vol] 410 10*3/uL Normal 150 - 450 [facility] Comment on above: Performed By: #### C BCDF #### [address] [place] [address] RBC (Bld) [#/Vol] 4.58 x10E12/L Normal 4.00 - 5.20 [facility] Comment on above: Performed By: #### C BCDF #### [address] [place] [address] WBC (Bld) [#/Vol] 9.5 10*3/uL Normal 4.4 - 11.3 [facility] Comment on above: Performed By: #### C BCDF #### [address] [place] [address] MOTO MIX OPERATOR - Visiton 08-06-2020 MOTO MIX OPERATOR - Visit Chief Complaint The patient is [...] with LMWH and has follow-up with her Press Operator Assistant 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 Reports her asthma is stable. [...] or homicidal ideation Vitals Vital Signs Recorded: [id number] 01:08PM Heart Rate62 Vaksrgms850 Rooytvvhy34 Height5 ft 2 in Wklzjo110 lb BMI Dvjwdhewnw93.28 BSA Calculated1.79 Tobacco Useb) No Fall Screeninga) [...] ongoing well-woman care with her current local Medical Assistant Ob Gyn. She has Hematology follow-up today following our [...] WBC (Bld) 0.5 % 0.0 - 2.0 WJ-DATHW-Fbsbk[address] Work Phone: Eosinophils (Bld) [#/Vol] 0.24 {x10E9/L} See Below XA-KZLEX-Dgsol[address] Work Phone: Comment on above: Reference Range: 0.0 0 - 0.70 Eosinophils/100 WBC (Bld) 1.1 % 0.0 - 6.0 WH-RANLU-Qzxze[address] Work Phone: Erythrocyte distribution width (RBC) [Ratio] 15.0 % above high threshold See Below PV-RMNXQ-Wggwd[address] Work Phone: Comment on above: Reference Range: 11. 5 - 14.5 Hematocrit (Bld) [Volume fraction] 30.0 % below low threshold See Below SC-JVKHK-Ptggh[address] Work Phone: Comment on above: Reference Range: 36. 0 - 46.0 Hemoglobin (Bld) [Mass/Vol] 9.8 g/dL below low threshold See Below SE-SPUDC-Tlzeu[address] Work Phone: Comment on above: Reference Range: 12. 0 - 16.0 Lymphocytes (Bld) [#/Vol] 2.25 {x10E9/L} See Below PO-GGFEB-Uknlu wn 2nd Fl Work Phone: Comment on above: Reference Range: 1.2 0 - 4.80 Lymphocytes/100 WBC (Bld) 10.4 % See Below IM-CJZZC-Nmsyt wn 2nd Fl Work Phone: Comment on above: Reference Range: 13. 0 - 44.0 MCHC (RBC) [Mass/Vol] 32.7 g/dL See Below WF-NLPTR-Ekluo wn 2nd Fl Work Phone: Comment on above: Reference Range: 32. 0 - 36.0 MCV (RBC) [Entitic vol] 91 fL 80 - 100 AM-RITNS-Lsozj wn 2nd Fl Work Phone: Monocytes (Bld) [#/Vol] 0.84 {x10E9/L} See Below ZE-XOXJD-Tvycv wn 2nd Fl Work Phone: Comment on above: Reference Range: 0.1 0 - 1.00 Monocytes/100 WBC (Bld) 3.9 % 2.0 - 10.0 XF-TKXVA-Zzbmi wn 2nd Fl Work Phone: Neutrophils/100 WBC (Bld) 82.7 % See Below MS-SEKUG-Tegwc wn 2nd Fl Work Phone: Comment on above: Reference Range: 40. 0 - 80.0 Platelets (Bld) [#/Vol] 225 {x10E9/L} 150 - 450 QV-JEUSV-Yprof wn 2nd Fl Work Phone: RBC (Bld) [#/Vol] 3.31 {x10E12/L} below low threshold See Below LD-EXOOR-Onjds wn 2nd Fl Work Phone: Comment on above: Reference Range: 4.0 0 - 5.20 WBC (Bld) [#/Vol] 0.0 {/100_WBC} 0.0-0.0 MG- OBGYN[address] Fl Work Phone: WBC (Bld) [#/Vol] 21.6 {x10E9/L} above high threshold 4.4 - 11.3 HI-HNDAL-Gzlfm[address] Work Phone: Complete Blood Count + Differential 0.11 {x10E9/L} above high threshold See Below JX-KVBSD-Szxna[address] Work Phone: Comment on above: Reference Range: 0.0 0 - 0.10 Complete Blood Count + Differential 1.4 % above high threshold 0.0 - 0.9 TL-OCJDM-Xtrvl[address] Work Phone: Comment on above: Immature Granulocyte Count (IG) includes promyelocytes, myelocytes and metamyelocytes but does not include bands. Percent differential counts (%) should be interpreted in the context of the absolute cell counts (cells/L). Complete Blood Count + Differential 17.85 {x10E9/L} above high threshold See Below CH-IIJSQ-Xeuia[address] Work Phone: Comment on above: Reference Range: 1.2 0 - 7.70 Hematologyon 06-26-2020 Hematocrit (Bld) [Volume fraction] 30.5 % below low threshold See Below KR-RFBOY-Rriel[address] Work Phone: Comment on above: Reference Range: 36. 0 - 46.0 Hemoglobin (Bld) [Mass/Vol] 10.7 g/dL below low threshold See Below FB-WNISY-Dugzw[address] Work Phone: Comment on above: Reference Range: 12. 0 - 16.0 MCV (RBC) [Entitic vol] 84 fL 80 - 100 NK-VNSQB-Httfc[address] Work Phone: Platelets (Bld) [#/Vol] 258 {x10E9/L} 150 - 450 HY-PXDYI-Wzovv[address] Work Phone: RBC (Bld) [#/Vol] 3.62 {x10E12/L} below low threshold See Below GE-PXHPN-Asiit 2nd Fl Work Phone: Comment on above: Reference Range: 4.0 0 - 5.20 WBC (Bld) [#/Vol] 0.0 {/100_WBC} 0.0-0.0 MG- OBGYN-Midto 2nd Fl Work Phone: WBC (Bld) [#/Vol] 35.7 {x10E9/L} above high threshold 4.4 - 11.3 EP-IEKPC-Cvlzp 2nd Fl Work Phone: Otheron 06-26-2020 Erythrocyte distribution width (RBC) [Ratio] 14.6 % above high threshold See Below QP-WHPHK-Zzwbu 2nd Fl Work Phone: Comment on above: Reference Range: 11. 5 - 14.5 MCHC (RBC) [Mass/Vol] 35.1 g/dL See Below BV-XDGBH-Aschc wn 2nd Fl Work Phone: Comment on [...] 3.5 cm, located 1.0 cm from themargin. Clerical Stock Inspector sections are submitted in 5 cassettes.AXQ/LMPSummary of Cassettes:Specimen Label SiteA 1 umbilical cord sections 2 membrane rolls 3 placental parenchyma, umbilical cord insertion site 4 placental parenchyma 5 placental parenchyma, lesionaxq/06/26/2020 TI-TWCVM-Acgnw 2nd Sd Work Phone: Coronavirus 2019 RNA by PCR, Symptomaticon 06-25-2020 Coronavirus 2019 RNA by PCR, Symptomatic NOT DETECTED See Below FP-VYPEX-Sjpmc 2nd Sd Work Phone: Comment on above: SOURCE: Nasal, [...] this test method. Fact sheet for providers: www.fda.gov/media/272095/downloadFact sheet for patients: www.fda.gov/media/880031/downloadThis test has received FDA Emergency Use Authorization (EUA) and has been verified by [facility] ([facility]). This test is only authorized for the duration of time that circumstances exist to justify the authorization of the emergency use of in vitro diagnostic tests for the detection of SARS-CoV-2 virus and/or diagnosis of COVID-19 infection under section 564(b)(1) of the Act, 21 U.S.C. 360bbb-3(b)(1), unless the authorization is terminated or revoked sooner. [facility] is certified under CLIA-88 as qualified to perform high complexity testing. Testing is performed in the [facility] laboratories located at [address] [place] [address]. Hematologyon 06-25-2020 ABO group Nom (Bld) A [address] Work Phone: Blood group antibody screen Ql Negative [address] Work Phone: Hematocrit (Bld) [Volume fraction] 34.7 % below low threshold See Below [address] Work Phone: Comment on above: Reference Range: 36. 0 - 46.0 Hemoglobin (Bld) [Mass/Vol] 11.6 g/dL below low threshold See Below LU-NAEET-Rjxhz[address] Work Phone: Comment on above: Reference Range: 12. 0 - 16.0 MCV (RBC) [Entitic vol] 90 fL 80 - 100 ZO-WSOPO-Uihgw[address] Work Phone: Platelets (Bld) [#/Vol] 268 {x10E9/L} 150 - 450 WI-KUKUX-Sehaw[address] Work Phone: RBC (Bld) [#/Vol] 3.85 {x10E12/L} below low threshold See Below QO-SPHNF-Achtq[address] Work Phone: Comment on above: Reference Range: 4.0 0 - 5.20 Rh immune globulin screen (Bld) [Interp] Positive MK-UKGMN-Zurok[address] Work Phone: WBC (Bld) [#/Vol] 0.0 {/100_WBC} 0.0-0.0 - OBGYN[address] Work Phone: WBC (Bld) [#/Vol] 15.5 {x10E9/L} above high threshold 4.4 - 11.3 OE-QKTVX-Nhcyr[address] Work Phone: Otheron 06-25-2020 Erythrocyte distribution width (RBC) [Ratio] 14.4 % See Below QV-GBTOU-Udffl[address] Work Phone: Comment on above: Reference Range: 11. 5 - 14.5 MCHC (RBC) [Mass/Vol] 33.4 g/dL See Below AF-RBDRE-Ofhmo[address] Work Phone: Comment on above: Reference Range: 32. 0 - 36.0 SYPHILIS SCREENING WITH REFL [facility] 06-25-2020 T. pallidum IgG+IgM IA Ql (S) NONREACTIVE See Below OZ-QRYLV-Gfykt[address] Work Phone: Comment on above: SOURCE: Reference Ra nge: NONREACTIVENo significant level of Treponema pallidum antibody detected. Repeat testing in 2 to 4 weeks may be considered if early infection or incubating syphilis infection is suspected. Imm/Pathon 06-07-2020 Bacteria identified Aer cx Nom (Genital specimen) PATIENT: KIARA ASHLEY [place] [facility] [place]#: [id number] : 89 AGE: SEX: F ORDERED BY: PARAS GUEVARA: VAGINAL COLLECTED: 06/07/20 09:36ANTIBIOTICS AT ADRIENNE.: RECEIVED : 06/08/20 07:27SITE: VAGINAL R E S U L T S GROUP B STREP SCREEN PRELIM 06/09/20 08:35 CULTURE IN PROGRESS. ND-WOFBZ-NLC 1200 [place] Work Phone: Bacteria identified Aer cx Nom (Genital specimen) PATIENT: KIARA ASHLEY [place] [facility] [place] [id number] : 89 AGE: SEX: F ORDERED BY: PARAS GUEVARA: VAGINAL COLLECTED: 06/07/20 09:36ANTIBIOTICS AT [facility].: RECEIVED : 06/08/20 07:27SITE: VAGINAL R E S U L T S GROUP B STREP SCREEN FINAL 06/10/20 11:54 NEGATIVE FOR GROUP B BETA STREP. XI-EMJJD-Ipljk wn 2nd Fl Work Phone: Otheron 06-07-2020 [...] growth-No malformations were identified on a limited survey-[facility] 06/22 The patient is aware of [...] signed by: RILEY TREVIÑO 06/07/20 09:33 Normal WY-YBZKJ-RWP 1200 [place] Work Phone: Comment on above: ORDER REVISED TO A O B FOLLOW UP OR REPEAT SCAN BY RADIOLOGIST; Original Order Number: [id number] CBC AND DIFFERENTIALon 04-24 % AUTOMATED IMMATURE GRAN 1.9 % High 0.0 - 0.9 [facility] Comment on above: Result Comment: Graciela ture Granulocyte Count (IG) includes promyelocytes, myelocytes and metamyelocytes but does not include bands. Percent differential counts (%) should be interpreted in the context of the absolute cell counts (cells/L). Performed By: #### C BCDF #### [address] [place] [address] Basophils (Bld) [#/Vol] 0.08 10*3/uL Normal 0.00 - 0.10 [facility] Comment on above: Performed By: #### C BCDF #### [address] [place] [address] Basophils/100 WBC (Bld) 0.5 % Normal 0.0 - 2.0 [facility] Comment on above: Performed By: #### C BCDF #### [address] [place] [address] Eosinophils (Bld) [#/Vol] 0.22 10*3/uL Normal 0.00 - 0.70 [facility] Comment on above: Performed By: #### C BCDF #### [address] [place] [address] Eosinophils/100 WBC (Bld) 1.5 % Normal 0.0 - 6.0 [facility] Comment on above: Performed By: #### C BCDF #### [address] [place] [address] Erythrocyte distribution width (RBC) [Ratio] 14.0 % Normal 11.5 - 14.5 [facility] Comment on above: Performed By: #### C BCDF #### [address] [place] [address] Hematocrit (Bld) [Volume fraction] 35.6 % Low 36.0 - 46.0 [facility] Comment on above: Performed By: #### C BCDF #### [address] [place] [address] Hemoglobin (Bld) [Mass/Vol] 11.8 g/dL Low 12.0 - 16.0 [facility] Comment on above: Performed By: #### C BCDF #### [address] [place] [address] Lymphocytes (Bld) [#/Vol] 2.38 10*3/uL Normal 1.20 - 4.80 [facility] Comment on above: Performed By: #### C BCDF #### [address] [place] [address] Lymphocytes/100 WBC (Bld) 16.0 % Normal 13.0 - 44.0 [facility] Comment on above: Performed By: #### C BCDF #### [address] [place] [address] MCHC (RBC) [Mass/Vol] 33.1 g/dL Normal 32.0 - 36.0 [facility] Comment on above: Performed By: #### C BCDF #### [address] [place] [address] MCV (RBC) [Entitic vol] 92 fL Normal 80 - 100 [facility] Comment on above: Performed By: #### C BCDF #### [address] [place] [address] Monocytes (Bld) [#/Vol] 0.74 10*3/uL Normal 0.10 - 1.00 [facility] Comment on above: Performed By: #### C BCDF #### [address] [place] [address] Monocytes/100 WBC (Bld) 5.0 % Normal 2.0 - 10.0 [facility] Comment on above: Performed By: #### C BCDF #### [address] [place] [address] Neutrophils (Bld) [#/Vol] 11.17 10*3/uL High 1.20 - 7.70 [facility] Comment on above: Performed By: #### C BCDF #### [address] [place] [address] Neutrophils/100 WBC (Bld) 75.1 % Normal 40.0 - 80.0 [facility] Comment on above: Performed By: #### C BCDF #### [address] [place] [address] Platelets (Bld) [#/Vol] 285 10*3/uL Normal 150 - 450 [facility] Comment on above: Performed By: #### C BCDF #### [address] [place] [address] RBC (Bld) [#/Vol] 3.89 x10E12/L Low 4.00 - 5.20 [facility] Comment on above: Performed By: #### C BCDF #### [address] [place] [address] WBC (Bld) [#/Vol] 14.9 10*3/uL High 4.4 - 11.3 [facility] Comment on above: Performed By: #### C BCDF #### [address] [place] [address] COMPREHENSIVE PANELon 2019 ALP [Catalytic activity/Vol] 79 U/L Normal 33 - 110 [facility] Comment on above: Performed By: #### C MP #### [address] [place] [address] [place] [address] ALT [Catalytic activity/Vol] 7 U/L Normal 7 - 45 [facility] Comment on above: Result Comment: Melida ents treated with Sulfasalazine may generate falsely decreased results for ALT. Performed By: #### C MP #### [address] [place] [address] [place] [address] AST [Catalytic activity/Vol] 13 U/L Normal 9 - 39 [facility] Comment on above: Performed By: #### C MP #### [address] [place] [address] [place] [address] Bilirubin [Mass/Vol] 0.3 mg/dL Normal 0.0 - 1.2 [facility] Comment on above: Performed By: #### C MP #### [address] [place] [address] [place] [address] Protein [Mass/Vol] 5.9 g/dL Low 6.4 - 8.2 [facility] Comment on above: Performed By: #### C MP #### [address] [place] [address] [place] [address] Anion gap [Moles/Vol] 12 mmol/L Normal 10 - 20 [facility] Comment on above: Performed By: #### C MP #### [address] [place] [address] [place] [address] Chloride [Moles/Vol] 106 mmol/L Normal 98 - 107 [facility] Comment on above: Performed By: #### C MP #### [address] [place] [address] [place] [address] Potassium [Moles/Vol] 3.7 mmol/L Normal 3.5 - 5.3 [facility] Comment on above: Performed By: #### C MP #### [address] [place] [address] [place] [address] Sodium [Moles/Vol] 137 mmol/L Normal 136 - 145 [facility] Comment on above: Performed By: #### C MP #### [address] [place] [address] [place] [address] Calcium [Mass/Vol] 9.2 mg/dL Normal 8.6 - 10.3 [facility] Comment on above: Performed By: #### C MP #### [address] [place] [address] [place] [address] Glucose [Mass/Vol] 95 mg/dL Normal 74 - 99 [facility] Comment on above: Performed By: #### C MP #### [address] [place] [address] [place] [address] Urea nitrogen [Mass/Vol] 7 mg/dL Normal 6 - 23 [facility] Comment on above: Performed By: #### C MP #### [address] [place] [address] [place] [address] Albumin [Mass/Vol] 3.4 g/dL Normal 3.4 - 5.0 [facility] Comment on above: Performed By: #### C MP #### [address] [place] [address] [place] [address] Creatinine [Mass/Vol] 0.70 mg/dL Normal 0.50 - 1.05 [facility] Comment on above: Performed By: #### C MP #### [address] [place] [address] [place] [address] GFR- AM. >60 Normal >60 [facility] Comment on above: Result Comment: CALC ULATIONS OF ESTIMATED GFR ARE PERFORMED USING THE MDRD STUDY EQUATION FOR THE IDMS-TRACEABLE CREATININE METHODS. CLIN CHEM 2007;53:766-72 Performed By: #### C MP #### [address] [place] [address] [place] [address] GFR-NON AM. >60 Normal >60 [facility] Comment on above: Performed By: #### C MP #### [address] [place] [address] [place] [address] HCO3 (Bld) [Moles/Vol] 23 mmol/L Normal 21 - 32 [facility] Comment on above: Performed By: #### C MP #### [address] [place] [address] [place] [address] FERRITINon 04-24-2020 Ferritin [Mass/Vol] 8 ug/L Normal 8 - 150 [facility] Comment on above: Performed By: #### F ERRI #### [address] [place] [address] IRON + TIBCon 04-24-2020 % SATURATION 14 % Low 25 - 45 [facility] Comment on above: Performed By: #### I RONT #### [address] [place] [address] Iron [Mass/Vol] 65 ug/dL Normal 35 - 150 [facility] Comment on above: Performed By: #### I RONT #### [address] [place] [address] TIBC 449 ug/dL High 240 - 445 [facility] Comment on above: Performed By: #### I RONT #### [address] [place] [address] Complete Blood Count + Diffe rentialon 12-25-2019 Basophils/100 WBC (Bld) 1.0 % 0.0 - 2.0 HQ-NCWWE-WUJ [address] [place] Work Phone: Eosinophils (Bld) [#/Vol] 0.37 {x10E9/L} See Below BI-BAJQA-NBG 1200 [place] Work Phone: Comment on above: Reference Range: 0.0 0 - 0.70 Eosinophils/100 WBC (Bld) 3.0 % 0.0 - 6.0 BB-PRFNO-LAJ 1200 [place] Work Phone: Erythrocyte distribution width (RBC) [Ratio] 13.4 % See Below QC-KVUZF-HKX 1200 [place] Work Phone: Comment on above: Reference Range: 11. 5 - 14.5 Hematocrit (Bld) [Volume fraction] 41.8 % See Below BN-IHYIP-MJZ 1200 [place] Work Phone: Comment on above: Reference Range: 36. 0 - 46.0 Hemoglobin (Bld) [Mass/Vol] 13.6 g/dL See Below YR-MAKOP-UWJ 1200 [place] Work Phone: Comment on above: Reference Range: 12. 0 - 16.0 Lymphocytes (Bld) [#/Vol] 2.52 {x10E9/L} See Below TP-XAFMN-LZC 1200 [place] Work Phone: Comment on above: Reference Range: 1.2 0 - 4.80 Lymphocytes/100 WBC (Bld) 20.2 % See Below AG-LMJQX-POY 1200 [place] Work Phone: Comment on above: Reference Range: 13. 0 - 44.0 MCHC (RBC) [Mass/Vol] 32.5 g/dL See Below QK-EGMLG-QSF 1200 [place] Work Phone: Comment on above: Reference Range: 32. 0 - 36.0 MCV (RBC) [Entitic vol] 95 fL 80 - 100 WL-CDFYI-LCS 1200 [place] Work Phone: Monocytes (Bld) [#/Vol] 0.58 {x10E9/L} See Below VK-RLBHC-WIY 1200 [place] Work Phone: Comment on above: Reference Range: 0.1 0 - 1.00 Monocytes/100 WBC (Bld) 4.6 % 2.0 - 10.0 AE-THCZT-RTP 1200 [place] Work Phone: Neutrophils/100 WBC (Bld) 70.6 % See Below JL-OVZDG-FGT 1200 [place] Work Phone: Comment on above: Reference Range: 40. 0 - 80.0 Platelets (Bld) [#/Vol] 372 {x10E9/L} 150 - 450 ED-ZBRBP-TGN 1200 [place] Work Phone: RBC (Bld) [#/Vol] 4.40 {x10E12/L} See Below MG -OBGYN-MAC 1200 [place] Work Phone: Comment on above: Reference Range: 4.0 0 - 5.20 WBC (Bld) [#/Vol] 0.0 {/100_WBC} 0.0-0.0 MG- OBGYN-MAC 1200 [place] Work Phone: WBC (Bld) [#/Vol] 12.7 {x10E9/L} above high threshold 4.4 - 11.3 GL-QVJRG-LFU 1200 [place] Work Phone: Comment on above: SOURCE: Complete Blood Count + Differential 8.81 {x10E9/L} above high threshold See Below PJ-BMGDE-XMZ 1200 [place] Work Phone: Comment on above: Reference Range: 1.2 0 - 7.70 Complete Blood Count + Differential 0.6 % 0.0 - 0.9 XX-AKTTE-EIK 1200 [place] Work Phone: Comment on above: Percent differential counts (%) should be interpreted in the context of the absolute cell counts (cells/L). Complete Blood Count + Differential 0.13 {x10E9/L} above high threshold See Below MC-OXYPU-RTX 1200 [place] Work Phone: Comment on above: Reference Range: 0.0 0 - 0.10 Cult, Urineon 12-25-2019 Bacteria identified Cx Nom (U) PATIENT: KIARA ASHLEY LOCATION: [facility] [place] BILL#: [id number] : 89 AGE: SEX: F ORDERED BY: PARAS GUEVARA: URINE COLLECTED: 12/25/19 09:41ANTIBIOTICS AT [place].: RECEIVED : 12/25/19 17:06SITE: Clean Catch/Voided R E S U L T S URINE CULTURE,BACTERIAL FINAL 12/26/19 10:21 NO SIGNIFICANT GROWTH. WK-DWOMQ-YHX 1200 [place] Work Phone: Hematologyon 12-25-2019 ABO group Nom (Bld) A AG-ENJCC-HLW 1200 [place] Work Phone: Blood group antibody screen Ql Negative XT-WMFDP-GJX 1200 [place] Work Phone: Rh immune globulin screen (Bld) [Interp] Positive BH-BZJRH-QIW 1200 [place] Work Phone: Hepatitis B Surface Antigeno n 12-25-2019 Hepatitis B Surface Antigen NONREACTIVE See Below TH-SJIWP-TQI 1200 [place] Work Phone: Comment on above: [...] Hepatitis C Antibody Test NON-REACTIVE See Below ZR-TLLID-QXL 1200 [place] Work Phone: Comment on above: SOURCE: Reference Ra nge: NONREACTIVE Patients receiving more than 5 mg/day of biotin may have interference in test results. A sample should be taken no sooner than eight hours after previous dose. Contact the testing laboratory for additional information. Metabolic Panelon 12-25-2019 ALP [Catalytic activity/Vol] 67 U/L 33 - 110 TQ-DJIRY-EDW 1200 [place] Work Phone: Anion gap [Moles/Vol] 15 mmol/L 10 - 20 BP-UKGEX-XDH 1200 [place] Work Phone: Bilirubin [Mass/Vol] 0.3 mg/dL 0.0 - 1.2 ZI-LCGWN-YWO 1200 [place] Work Phone: Calcium [Mass/Vol] 9.6 mg/dL 8.6 - 10.6 CB-ITTWZ-JOJ 1200 [place] Work Phone: Chloride [Moles/Vol] 104 mmol/L 98 - 107 HQ-CTHAV-NZY 1200 [place] Work Phone: CO2 [Moles/Vol] 21 mmol/L 21 - 32 MG-OBGYN- MAC 1200 [place] Work Phone: Creatinine [Mass/Vol] 0.69 mg/dL See Below HQ-NGSRB-NXA 1200 [place] Work Phone: Comment on above: Reference Range: 0.5 0 - 1.05 Glucose [Mass/Vol] 83 mg/dL 74 - 99 II-GPFDM-JGO 1200 [place] Work Phone: Comment on above: SOURCE: Potassium [Moles/Vol] 4.1 mmol/L 3.5 - 5.3 QB-WNCZP-WRP 1200 [place] Work Phone: Protein [Mass/Vol] 6.2 g/dL below low threshold 6.4 - 8.2 FW-PCIOJ-JJZ 1200 [place] Work Phone: Sodium [Moles/Vol] 136 mmol/L 136 - 145 GU-PQSLT-AGE 1200 [place] Work Phone: Urea nitrogen [Mass/Vol] 9 mg/dL 6 - 23 AZ-GYYXM-CGI 1200 [place] Work Phone: Otheron 12-25-2019 Albumin BCP dye [Mass/Vol] 3.9 g/dL 3.4 - 5.0 VE-JTTJC-DAC 1200 [place] Work Phone: ALT With P-5'-P [Catalytic activity/Vol] 8 U/L 7 - 45 NU-LWGBC-NRG 1200 [place] Work Phone: Comment on above: Patients treated wit h Sulfasalazine may generate falsely decreased results for ALT. AST With P-5'-P [Catalytic activity/Vol] 11 U/L 9 - 39 QY-MDJCA-JQP 1200 [place] Work Phone: NONE BP-RFBXJ-AXT 1200 [place] Work Phone: >60 >60 SP-XOLNU-HNO 1200 [place] Work Phone: Comment on above: CALCULATIONS OF MARÍA MATED GFR ARE PERFORMED USING THE MDRD STUDY EQUATION FOR THE IDMS-TRACEABLE CREATININE METHODS. CLIN CHEM 2007;53:766-72 SYPHILIS SCREENING WITH REFL EXon 12-25-2019 T. pallidum IgG+IgM IA Ql (S) NONREACTIVE See Below WA-PQQIB-IBB 1200 [place] Work Phone: Comment on above: SOURCE: Reference Ra nge: NONREACTIVENo significant level of Treponema pallidum antibody detected. Repeat testing in 2 to 4 weeks may be considered if early infection or incubating syphilis infection is suspected. CBC AND DIFFERENTIALon 11-21 % AUTOMATED IMMATURE GRAN 0.9 % Normal 0.0 - 0.9 [facility] Comment on above: Result Comment: Perc ent differential counts (%) should be interpreted in the context of the absolute cell counts (cells/L). Performed By: #### C BCDF #### [address] [place] [address] Basophils (Bld) [#/Vol] 0.16 10*3/uL High 0.00 - 0.10 [facility] Comment on above: Performed By: #### C BCDF #### [address] [place] [address] Basophils/100 WBC (Bld) 1.2 % Normal 0.0 - 2.0 [facility] Comment on above: Performed By: #### C BCDF #### [address] [place] [address] Eosinophils (Bld) [#/Vol] 0.80 10*3/uL High 0.00 - 0.70 [facility] Comment on above: Performed By: #### C BCDF #### [address] [place] [address] Eosinophils/100 WBC (Bld) 5.8 % Normal 0.0 - 6.0 [facility] Comment on above: Performed By: #### C BCDF #### [address] [place] [address] Erythrocyte distribution width (RBC) [Ratio] 13.6 % Normal 11.5 - 14.5 [facility] Comment on above: Performed By: #### C BCDF #### [address] [place] [address] Hematocrit (Bld) [Volume fraction] 39.4 % Normal 36.0 - 46.0 [facility] Comment on above: Performed By: #### C BCDF #### [address] [place] [address] Hemoglobin (Bld) [Mass/Vol] 13.0 g/dL Normal 12.0 - 16.0 [facility] Comment on above: Performed By: #### C BCDF #### [address] [place] [address] Lymphocytes (Bld) [#/Vol] 2.24 10*3/uL Normal 1.20 - 4.80 [facility] Comment on above: Performed By: #### C BCDF #### [address] [place] [address] Lymphocytes/100 WBC (Bld) 16.3 % Normal 13.0 - 44.0 [facility] Comment on above: Performed By: #### C BCDF #### [address] [place] [address] MCHC (RBC) [Mass/Vol] 33.0 g/dL Normal 32.0 - 36.0 [facility] Comment on above: Performed By: #### C BCDF #### [address] [place] [address] MCV (RBC) [Entitic vol] 94 fL Normal 80 - 100 [facility] Comment on above: Performed By: #### C BCDF #### [address] [place] [address] Monocytes (Bld) [#/Vol] 0.83 10*3/uL Normal 0.10 - 1.00 [facility] Comment on above: Performed By: #### C BCDF #### [address] [place] [address] Monocytes/100 WBC (Bld) 6.0 % Normal 2.0 - 10.0 [facility] Comment on above: Performed By: #### C BCDF #### [address] [place] [address] Neutrophils (Bld) [#/Vol] 9.60 10*3/uL High 1.20 - 7.70 [facility] Comment on above: Performed By: #### C BCDF #### [address] [place] [address] Neutrophils/100 WBC (Bld) 69.8 % Normal 40.0 - 80.0 [facility] Comment on above: Performed By: #### C BCDF #### [address] [place] [address] Platelets (Bld) [#/Vol] 380 10*3/uL Normal 150 - 450 [facility] Comment on above: Performed By: #### C BCDF #### [address] [place] [address] RBC (Bld) [#/Vol] 4.21 x10E12/L Normal 4.00 - 5.20 [facility] Comment on above: Performed By: #### C BCDF #### [address] [place] [address] WBC (Bld) [#/Vol] 13.8 10*3/uL High 4.4 - 11.3 [facility] Comment on above: Performed By: #### C BCDF #### [address] [place] [address] Complete Blood Count + Diffe rentialon 11-14-2019 Basophils (Bld) [#/Vol] 0.05 {x10E9/L} See Below MP-Reproductiv e Endocrinology- [place] Work Phone: Comment on above: Reference Range: [...] 2.13 {x10E9/L} See Below -Reproductiv e Endocrinology- [place] Work Phone: Comment on above: Reference Range: 1.2 0 - 4.80 Lymphocytes/100 WBC (Bld) 17.5 % See Below MP-Reproductiv e Endocrinology- [place] Work Phone: Comment on above: Reference Range: [...] 69.4 % See Below MP-Reproductiv e Endocrinology- [place] Work Phone: Comment on above: Reference Range: [...] % 0.0 - 0.9 MP-Reproductiv e Endocrinology- [place] Work Phone: Comment on above: Percent differential counts (%) should be interpreted in the context of the absolute cell counts (cells/L). Complete Blood Count + Differential 8.42 {x10E9/L} above high threshold See Below MP-Reproductiv e Endocrinology- [place] Work Phone: Comment on above: Reference Range: 1.2 0 - 7.70 Metabolic Panelon 11-14-2019 ALP [Catalytic activity/Vol] 82 U/L 33 - 110 MP-Reproductiv e Endocrinology- [place] Work Phone: Anion gap [Moles/Vol] 19 mmol/L 10 - 20 MP-Reproductiv e Endocrinology- [place] Work Phone: Bilirubin [Mass/Vol] 0.4 mg/dL 0.0 - 1.2 MP-Reproductiv e Endocrinology- [place] Work Phone: Calcium [Mass/Vol] 9.5 mg/dL 8.6 - 10.6 MP-Reproductiv e Endocrinology- [place] Work Phone: Chloride [Moles/Vol] 100 mmol/L 98 - 107 MP-Reproductiv e Endocrinology- [place] Work Phone: CO2 [Moles/Vol] 20 mmol/L below low threshold 21 - 32 MP-Reproductiv e Endocrinology- [place] Work Phone: Creatinine [Mass/Vol] 0.80 mg/dL See Below MP-Reproductiv e Endocrinology- [place] Work Phone: Comment on above: Reference Range: 0.5 0 - 1.05 Glucose [Mass/Vol] 86 mg/dL 74 - 99 MP-Reproductiv e Endocrinology- [place] Work Phone: Potassium [Moles/Vol] 4.3 mmol/L 3.5 - 5.3 MP-Reproductiv e Endocrinology- [place] Work Phone: Protein [Mass/Vol] 5.8 g/dL below low threshold 6.4 - 8.2 MP-Reproductiv e Endocrinology- [place] Work Phone: Sodium [Moles/Vol] 135 mmol/L below low threshold 136 - 145 MP-Reproductiv e Endocrinology- [place] Work Phone: Urea nitrogen [Mass/Vol] 10 mg/dL 6 - 23 MP-Reproductiv e [facility] Work Phone: Otheron 11-14-2019 Albumin BCP dye [Mass/Vol] 3.5 g/dL 3.4 - 5.0 MP-Reproductiv e [facility] Work Phone: ALT With P-5'-P [Catalytic activity/Vol] 17 U/L 7 - 45 MP-Reproductiv e [facility] Work Phone: Comment on above: Patients treated wit h Sulfasalazine may generate falsely decreased results for ALT. AST With P-5'-P [Catalytic activity/Vol] 22 U/L 9 - 39 MP-Reproductiv e [facility] Work Phone: >60 >60 -Reproductiv [facility] Work Phone: Comment on above: CALCULATIONS OF MARÍA MATED GFR ARE PERFORMED USING THE MDRD STUDY EQUATION FOR THE IDMS-TRACEABLE CREATININE METHODS. CLIN CHEM 2007;53:766-72 CBCon 11-09-2019 Erythrocyte distribution width (RBC) [Ratio] 13.7 % See Below JV-RSZEA-Tqeat n 310 [facility] Work Phone: Comment on above: Performed By: #### L H #### [facility] [address] [place] [address] Reference Range: 11. 5 - 14.5 Hematocrit (Bld) [Volume fraction] 41.9 % See Below XA-JLLCF-Zzmaj n 310 [facility] Work Phone: Comment on above: Performed By: #### L H #### [facility] [address] [place] [address] Reference Range: 36. 0 - 46.0 Hemoglobin (Bld) [Mass/Vol] 14.0 g/dL See Below GS-CMEOB-Guiax n 310 [facility] Work Phone: Comment on above: Performed By: #### L H #### [facility] [address] [place] [address] Reference Range: 12. 0 - 16.0 MCHC (RBC) [Mass/Vol] 33.4 g/dL See Below QN-FAWJN-Kjvtj n 310 [facility] Work Phone: Comment on above: Performed By: #### L H #### [facility] [address] [place] [address] Reference Range: 32. 0 - 36.0 MCV (RBC) [Entitic vol] 94 fL 80 - 100 IY-NHZVK-Mtgyw n 310 [facility] Work Phone: Comment on above: Performed By: #### L H #### [facility] [address] [place] [id number] Platelets (Bld) [#/Vol] 411 10*3/uL Normal 150 - 450 [facility] Comment on above: Performed By: #### L H #### [facility] [address] [place] [id number] RBC (Bld) [#/Vol] 4.44 x10E12/L Normal 4.00 - 5.20 [facility] Comment on above: Performed By: #### L H #### [facility] [address] [place] [id number] WBC (Bld) [#/Vol] 12.4 10*3/uL High 4.4 - 11.3 [facility] Comment on above: Performed By: #### L H #### [facility] [address] [place] [id number] COMPREHENSIVE PANELon 2018 Albumin [Mass/Vol] 3.8 g/dL Normal 3.4 - 5.0 [facility] Comment on above: Performed By: #### L H #### [facility] [address] [place] [id number] ALP [Catalytic activity/Vol] 51 U/L 33 - 110 NQ-YRTDR-Woxyj n 310 [facility] Work Phone: Comment on above: Performed By: #### L H #### [facility] [address] [place] [address] ALT [Catalytic activity/Vol] 12 U/L Normal 7 - 45 [facility] Comment on above: Result Comment: Melida ents treated with Sulfasalazine may generate falsely decreased results for ALT. Performed By: #### L H #### [facility] [address] [place] [id number] Anion gap [Moles/Vol] 13 mmol/L 10 - 20 PJ-XXEIO-Ydmpz n 310 [facility] Work Phone: Comment on above: Performed By: #### L H #### [facility] [address] [place] [id number] AST [Catalytic activity/Vol] 12 U/L Normal 9 - 39 [facility] [place] Comment on above: Performed By: #### L H #### [facility] [address] [place] [id number] Bilirubin [Mass/Vol] 0.4 mg/dL 0.0 - 1.2 JF-[id number]-Nruut n 310 IVF Work Phone: Comment on above: Performed By: #### L H #### [facility] [address] [place] [id number] Calcium [Mass/Vol] 9.3 mg/dL 8.6 - 10.3 BR-AAICL-Bnkey n 310 IVF Work Phone: Comment on above: Performed By: #### L H #### [facility] [address] [place] [id number] Chloride [Moles/Vol] 102 mmol/L 98 - 107 EH-PLKWJ-Onszv n 310 IVF Work Phone: Comment on above: Performed By: #### L H #### [facility] [address] [place] [id number] Creatinine [Mass/Vol] 0.89 mg/dL See Below AZ-[id number]-Jvicx n 310 IVF Work Phone: Comment on above: Performed By: #### L H #### [facility] [address] [place] [id number] Reference Range: 0.5 0 - 1.05 GFR- AM. >60 Normal >60 [facility] [place] Comment on above: Result Comment: CALC ULATIONS OF ESTIMATED GFR ARE PERFORMED USING THE MDRD STUDY EQUATION FOR THE IDMS-TRACEABLE CREATININE METHODS. CLIN CHEM 2007;53:766-72 Performed By: #### L H #### [facility] [address] [place] [address] GFR-NON AM. >60 Normal >60 [facility] [place] Comment on above: Performed By: #### L H #### [facility] [facility] [address] [place] [address] Glucose [Mass/Vol] 74 mg/dL 74 - 99 BU-CQEAZ-Lhrox n 310 IVF Work Phone: Comment on above: Performed By: #### L H #### [facility] [address] [place] [address] HCO3 (Bld) [Moles/Vol] 25 mmol/L Normal 21 - 32 [facility] Comment on above: Performed By: #### L H #### [facility] [address] [place] [address] Potassium [Moles/Vol] 4.1 mmol/L 3.5 - 5.3 VE-CZVVA-Zltuu n 310 IVF Work Phone: Comment on above: Performed By: #### L H #### [facility] [address] [place] [address] Protein [Mass/Vol] 6.0 g/dL below low threshold 6.4 - 8.2 VT-ETZHH-Nvroy n 310 IVF Work Phone: Comment on above: Performed By: #### L H #### [facility] [address] [place] [address] Sodium [Moles/Vol] 136 mmol/L 136 - 145 LF-SNSCZ-Xvmup n 310 IVF Work Phone: Comment on above: Performed By: #### L H #### [facility] [address] [place] [address] Urea nitrogen [Mass/Vol] 11 mg/dL 6 - 23 TT-GLTAO-Sssuu n 310 IVF Work Phone: Comment on above: Performed By: #### L H #### [facility] [address] [place] [address] HCG, Beta Quantitativeon HCG.beta subunit Qn 7102 {mIU/mL} Abnormal VA-PEGMP-Aeorz n 310 IVF Work Phone: Comment on [...] HCG measurement is performed using the [employer] Access Immunoassay which detects intact HCG and free beta HCG subunit. This test is not indicated for use as a tumor marker. HCG testing is performed using a different test methodology at [facility] than other [facility]. Direct result comparison should only be made within the same method. REF VALUESNON FEMALE <5MALES <5 HCG,BETA-QUANTITATIVEon - HCG,BETA-QUANTITA TIVE 7102 mIU/mL [facility] Comment on above: Result Comment: Low- level [...] HCG measurement is performed using the [employer] Access Immunoassay which detects intact HCG and free beta HCG subunit. This test is not indicated for use as a tumor marker. HCG testing is performed using a different test methodology at [facility] than other [facility]. Direct result comparison should only be made within the same method. REF VALUES NON FEMALE <5 MALES <5 Performed By: #### L H #### [facility] [address] [place] [id number] Hematologyon 11-09-2019 Platelets (Bld) [#/Vol] 411 {x10E9/L} 150 - 450 HC-XCBYA-Iykfw n 310 IVF Work Phone: RBC (Bld) [#/Vol] 4.44 {x10E12/L} See Below MG -OBGYN-Risma n 310 IVF Work Phone: Comment on above: Reference Range: 4.0 0 - 5.20 WBC (Bld) [#/Vol] 12.4 {x10E9/L} above high threshold 4.4 - 11.3 WZ-CEDPW-Gjkup n 310 IVF Work Phone: Metabolic Panelon 11-09-2019 CO2 [Moles/Vol] 25 mmol/L 21 - 32 MG-OBGYN- Risma n 310 IVF Work Phone: Otheron 11-09-2019 Albumin BCP dye [Mass/Vol] 3.8 g/dL 3.4 - 5.0 YQ-DONFL-Tepej n 310 IVF Work Phone: ALT With P-5'-P [Catalytic activity/Vol] 12 U/L 7 - 45 OK-YWMYR-Ytxlh n 310 IVF Work Phone: Comment on above: Patients treated wit h Sulfasalazine may generate falsely decreased results for ALT. AST With P-5'-P [Catalytic activity/Vol] 12 U/L 9 - 39 QP-INGEO-Xxlza n 310 IVF Work Phone: >60 >60 ZS-MSCJM-Lbzwy n 310 IVF Work Phone: Comment on [...] performed using a different test methodology at [facility] than other [facility]. Direct result comparison should only be made within the same method. REF VALUESNON FEMALE <5MALES <5 HCG,BETA-QUANTITATIVEon 10-15 HCG,BETA-QUANTITA TIVE 240 mIU/mL [facility] Comment on above: Result Comment: Low- level [...] performed using a different test methodology at [facility] than [facility]. Direct result comparison should only be made within the same method. REF VALUES NON FEMALE <5 MALES <5 Performed By: #### E STRA #### [facility] [address] [place] [address] ESTRADIOLon 10-14-2019 ESTRADIOL 1871 pg/mL Normal [facility] Comment on above: Result Comment: Estr adiol measurement is performed using the [employer] Access Immunoassay. Estradiol testing is performed using a different test methodology at [facility] than other [facility]. Direct result comparison should only be made within the same method. REF VALUES FOLLICULAR PHASE 20-144 MID CYCLE 64-357 LUTEAL PHASE 56-214 POSTMENOPAUSE < 32 PREPUBERTY < 20 MALE 10-18Y < 20 ADULT MALE < 40 Performed By: #### E STRA #### [facility] [address] [place] [address] Estradiol, Serumon 9 E2 [Mass/Vol] 1871 pg/mL MG-OBGYN-Ri sma n 310 IVF Work Phone: Comment on above: Estradiol measuremen t is performed using the [employer] Access Immunoassay. Estradiol testing is performed using a different test methodology at [facility] than other [facility]. Direct result comparison should only be made within the same method.REF VALUESFOLLICULAR PHASE 20-144MID CYCLE 64-357LUTEAL PHASE 56-214POSTMENOPAUSE < 32PREPUBERTY < 20MALE 10-18Y < 20ADULT MALE < 40 PROGESTERONEon 10-14-2019 PROGESTERONE 1.0 ng/mL Normal [facility] Comment on above: Result Comment: Prog esterone is performed using the [employer] Access Immunoassay. Progesterone testing is performed using a different test methodology at [facility] than other [facility]. Direct result comparison should only be made within the same method. REF VALUES MALE <0.2-0.8 FOLLICULAR PHASE <0.2-1.5 LUTEAL PHASE 7.4-15.4 POSTMENOPAUSAL <0.2-0.2 1ST TRIMESTER 12.0-84.0 2ND TRIMESTER 10.2-58.8 3RD TRIMESTER 46.5-160 Performed By: #### E STRA #### [facility] [address] [place] [address] Progesterone, Serumon 2018 Progesterone [Mass/Vol] 1.0 ng/mL HO-BCZYS-Aejos n 310 IVF Work Phone: Comment on above: Progesterone is perf ormed using the [employer] Access Immunoassay. Progesterone testing is performed using a different test methodology at [facility] than other [facility]. Direct result comparison should only be made within the same method.REF VALUESMALE <0.2-0.8 FOLLICULAR PHASE <0.2-1.5 LUTEAL PHASE 7.4-15.4 POSTMENOPAUSAL <0.2-0.2 1ST TRIMESTER 12.0-84.0 2ND TRIMESTER 10.2-58.8 3RD TRIMESTER 46.5-160 ESTRADIOLon 10-11-2019 ESTRADIOL 284 pg/mL Normal [facility] Comment on above: Result Comment: Estr adiol measurement is performed using the [employer] Access Immunoassay. Estradiol testing is performed using a different test methodology at [facility] than other [facility]. Direct result comparison should only be made within the same method. REF VALUES FOLLICULAR PHASE 20-144 MID CYCLE 64-357 LUTEAL PHASE 56-214 POSTMENOPAUSE < 32 PREPUBERTY < 20 MALE 10-18Y < 20 ADULT MALE < 40 Performed By: #### E STRA #### [facility] [address] [place] [address] Estradiol, Serumon 201 9 E2 [Mass/Vol] 284 pg/mL MG-OBGYN-Ri [facility] n 310 IVF Work Phone: Comment on above: Estradiol measuremen t is performed using the [employer] Access Immunoassay. Estradiol testing is performed using a different test methodology at [facility] than other [facility]. Direct result comparison should only be made within the same method.REF VALUESFOLLICULAR PHASE 20-144MID CYCLE 64-357LUTEAL PHASE 56-214POSTMENOPAUSE < 32PREPUBERTY < 20MALE 10-18Y < 20ADULT MALE < 40 ESTRADIOLon 10-05-2019 ESTRADIOL 129 pg/mL Normal [facility] Comment on above: Result Comment: Estr adiol measurement is performed using the [employer] Access Immunoassay. Estradiol testing is performed using a different test methodology at [facility] than other [facility]. Direct result comparison should only be made within the same method. REF VALUES FOLLICULAR PHASE 20-144 MID CYCLE 64-357 LUTEAL PHASE 56-214 POSTMENOPAUSE < 32 PREPUBERTY < 20 MALE 10-18Y < 20 ADULT MALE < 40 Performed By: #### E STRA #### [facility] [address] [place] [address] Estradiol, Serumon 9 E2 [Mass/Vol] 129 pg/mL MG-OBGYN-Ri [facility] n 310 IVF Work Phone: Comment on above: Estradiol measuremen t is performed using the [employer] Access Immunoassay. Estradiol testing is performed using a different test methodology at [facility] than other [facility]. Direct result comparison should only be made within the same method.REF VALUESFOLLICULAR PHASE 20-144MID CYCLE 64-357LUTEAL PHASE 56-214POSTMENOPAUSE < 32PREPUBERTY < 20MALE 10-18Y < 20ADULT MALE < 40 PROGESTERONEon 10-05-2019 PROGESTERONE 0.2 ng/mL Normal [facility] Comment on above: Result Comment: Prog esterone is performed using the [employer] Access Immunoassay. Progesterone testing is performed using a different test methodology at [facility] than other [facility]. Direct result comparison should only be made within the same method. REF VALUES MALE <0.2-0.8 FOLLICULAR PHASE <0.2-1.5 LUTEAL PHASE 7.4-15.4 POSTMENOPAUSAL <0.2-0.2 1ST TRIMESTER 12.0-84.0 2ND TRIMESTER 10.2-58.8 3RD TRIMESTER 46.5-160 Performed By: #### E BARBARA #### [facility] [address] [place] [address] Progesterone, Serumon 2018 Progesterone [Mass/Vol] 0.2 ng/mL PQ-YHWJP-Jsmdb n 310 IVF Work Phone: Comment on above: Progesterone is perf ormed using the [employer] Access Immunoassay. Progesterone testing is performed using a different test methodology at [facility] than other [facility]. Direct result comparison should only be made within the same method.REF VALUESMALE <0.2-0.8 FOLLICULAR PHASE <0.2-1.5 LUTEAL PHASE 7.4-15.4 POSTMENOPAUSAL <0.2-0.2 1ST TRIMESTER 12.0-84.0 2ND TRIMESTER 10.2-58.8 3RD TRIMESTER 46.5-160 ESTRADIOLon 10-02-2019 ESTRADIOL 357 pg/mL Normal [facility] Comment on above: Result Comment: Estr adiol measurement is performed using the [employer] Access Immunoassay. Estradiol testing is performed using a different test methodology at [facility] than other [facility]. Direct result comparison should only be made within the same method. REF VALUES FOLLICULAR PHASE 20-144 MID CYCLE 64-357 LUTEAL PHASE 56-214 POSTMENOPAUSE < 32 PREPUBERTY < 20 MALE 10-18Y < 20 ADULT MALE < 40 Performed By: #### E STRA #### [facility] [address] [place] [address] Estradiol, Serumon 9 E2 [Mass/Vol] 357 pg/mL MG-OBGYN-Cr ock er 206A IVF Work Phone: Comment on above: Estradiol measuremen t is performed using the [employer] Access Immunoassay. Estradiol testing is performed using a different test methodology at [facility] than other [facility]. Direct result comparison should only be made within the same method.REF VALUESFOLLICULAR PHASE 20-144MID CYCLE 64-357LUTEAL PHASE 56-214POSTMENOPAUSE < 32PREPUBERTY < 20MALE 10-18Y < 20ADULT MALE < 40 LUTEINIZING HORMONEon 2018 LUTEINIZING HORMONE 14.7 IU/L Normal [facility] Comment on above: Result Comment: Lute inizing Hormone [LH] is performed using the [employer] Access Immunoassay. LH testing is performed using a different test methodology at [facility] than other [facility]. Direct result comparison should only be made within the same method. REF VALUES FOLLICULAR PHASE 1.5-10.0 MID-CYCLE 13.0-72.0 LUTEAL PHASE 0.5-13.0 MENOPAUSE 15.0-65.0 PREPUBERTY 0- 3.0 CHILDREN 0- 6.0 ADULT MALE 1.0- 9.0 Performed By: #### E [facility] #### [facility] [address] [place] [address] Luteinizing Hormone, Serumon 10-02-2019 Lutropin Qn 14.7 {IU/L} XL-OQCPP-Ord ck er 206A IVF Work Phone: Comment on above: Luteinizing Hormone [LH] is performed using the [employer] Access Immunoassay. LH testing is performed using a different test methodology at [facility] than other [facility]. Direct result comparison should only be made within the same method.REF VALUESFOLLICULAR PHASE 1.5-10.0MID-CYCLE 13.0-72.0LUTEAL PHASE 0.5-13.0MENOPAUSE 15.0-65.0PREPUBERTY 0- 3.0CHILDREN 0- 6.0ADULT MALE 1.0- 9.0 PROGESTERONEon 10-02-2019 PROGESTERONE 0.1 ng/mL Normal [facility] Comment on above: Result Comment: Prog esterone is performed using the [employer] Access Immunoassay. Progesterone testing is performed using a different test methodology at [facility] than [facility]. Direct result comparison should only be made within the same method. REF VALUES MALE <0.2-0.8 FOLLICULAR PHASE <0.2-1.5 LUTEAL PHASE 7.4-15.4 POSTMENOPAUSAL <0.2-0.2 1ST TRIMESTER 12.0-84.0 2ND TRIMESTER 10.2-58.8 3RD TRIMESTER 46.5-160 Performed By: #### E STRA #### [facility] [address] [place] [address] Progesterone, Serumon 2018 Progesterone [Mass/Vol] 0.1 ng/mL MD-ADVOS-Jbntm er 206A IVF Work Phone: Comment on above: Progesterone is perf ormed using the [employer] Access Immunoassay. Progesterone testing is performed using a different test methodology at [facility] than [facility]. Direct result comparison should only be made within the same method.REF VALUESMALE <0.2-0.8 FOLLICULAR PHASE <0.2-1.5 LUTEAL PHASE 7.4-15.4 POSTMENOPAUSAL <0.2-0.2 1ST TRIMESTER 12.0-84.0 2ND TRIMESTER 10.2-58.8 3RD TRIMESTER 46.5-160 HCG,BETA-QUANTITATIVEon 07-17 HCG,BETA-QUANTITA TIVE 10 mIU/mL [facility] Comment on above: Result Comment: Low- level [...] HCG measurement is performed using the [employer] Access Immunoassay which detects intact HCG and free beta HCG subunit. This test is not indicated for use as a tumor marker. HCG testing is performed using a different test methodology at [facility] than other [facility]. Direct result comparison should only be made within the same method. REF VALUES NON FEMALE <5 MALES <5 Performed By: #### L H #### [facility] [address] [place] [address] LUTEINIZING HORMONEon 2018 LUTEINIZING HORMONE 57.0 IU/L Normal [facility] Comment on above: Result Comment: Lute inizing Hormone [LH] is performed using the [employer] Access Immunoassay. LH testing is performed using a different test methodology at [facility] than other [facility]. Direct result comparison should only be made within the same method. REF VALUES FOLLICULAR PHASE 1.5-10.0 MID-CYCLE 13.0-72.0 LUTEAL PHASE 0.5-13.0 MENOPAUSE 15.0-65.0 PREPUBERTY 0- 3.0 CHILDREN 0- 6.0 ADULT MALE 1.0- 9.0 Performed By: #### E STRA #### [facility] [address] [place] [address] PROGESTERONEon 08-13-2019 PROGESTERONE 6.7 ng/mL Normal [facility] Comment on above: Result Comment: Prog esterone is performed using the [employer] Access Immunoassay. Progesterone testing is performed using a different test methodology at [facility] than [facility]. Direct result comparison should only be made within the same method. REF VALUES MALE <0.2-0.8 FOLLICULAR PHASE <0.2-1.5 LUTEAL PHASE 7.4-15.4 POSTMENOPAUSAL <0.2-0.2 1ST TRIMESTER 12.0-84.0 2ND TRIMESTER 10.2-58.8 3RD TRIMESTER 46.5-160 Performed By: #### L H #### [facility] [address] [place] [address] ESTRADIOLon 08-12-2019 ESTRADIOL 1380 pg/mL Normal [facility] Comment on above: Result Comment: Estr adiol measurement is performed using the [employer] Access Immunoassay. Estradiol testing is performed using a different test methodology at [facility] than [facility]. Direct result comparison should only be made within the same method. REF VALUES FOLLICULAR PHASE 20-144 MID CYCLE 64-357 LUTEAL PHASE 56-214 POSTMENOPAUSE < 32 PREPUBERTY < 20 MALE 10-18Y < 20 ADULT MALE < 40 Performed By: #### L H #### [facility] [address] [place] [address] PROGESTERONEon 08-12-2019 PROGESTERONE 1.7 ng/mL Normal [facility] Comment on above: Result Comment: Prog esterone is performed using the [employer] Access Immunoassay. Progesterone testing is performed using a different test methodology at [facility] than other [facility]. Direct result comparison should only be made within the same method. REF VALUES MALE <0.2-0.8 FOLLICULAR PHASE <0.2-1.5 LUTEAL PHASE 7.4-15.4 POSTMENOPAUSAL <0.2-0.2 1ST TRIMESTER 12.0-84.0 2ND TRIMESTER 10.2-58.8 3RD TRIMESTER 46.5-160 Performed By: #### L H #### [facility] [address] [place] [address] ESTRADIOLon 08-11-2019 ESTRADIOL 874 pg/mL Normal [facility] Comment on above: Result Comment: Estr adiol measurement is performed using the [employer] Access Immunoassay. Estradiol testing is performed using a different test methodology at [facility] than other [facility]. Direct result comparison should only be made within the same method. REF VALUES FOLLICULAR PHASE 20-144 MID CYCLE 64-357 LUTEAL PHASE 56-214 POSTMENOPAUSE < 32 PREPUBERTY < 20 MALE 10-18Y < 20 ADULT MALE < 40 Performed By: #### L H #### [facility] [address] [place] [address] PROGESTERONEon 08-11-2019 PROGESTERONE 1.2 ng/mL Normal [facility] Comment on above: Result Comment: Prog esterone is performed using the [employer] Access Immunoassay. Progesterone testing is performed using a different test methodology at [facility] than [facility]. Direct result comparison should only be made within the same method. REF VALUES MALE <0.2-0.8 FOLLICULAR PHASE <0.2-1.5 LUTEAL PHASE 7.4-15.4 POSTMENOPAUSAL <0.2-0.2 1ST TRIMESTER 12.0-84.0 2ND TRIMESTER 10.2-58.8 3RD TRIMESTER 46.5-160 Performed By: #### L H #### [facility] [address] [place] [address] ESTRADIOLon 08-09-2019 ESTRADIOL 385 pg/mL Normal [facility] Comment on above: Result Comment: Estr adiol measurement is performed using the [employer] Access Immunoassay. Estradiol testing is performed using a different test methodology at [facility] than [facility]. Direct result comparison should only be made within the same method. REF VALUES FOLLICULAR PHASE 20-144 MID CYCLE 64-357 LUTEAL PHASE 56-214 POSTMENOPAUSE < 32 PREPUBERTY < 20 MALE 10-18Y < 20 ADULT MALE < 40 Performed By: #### L H #### [facility] [address] [place] [address] ESTRADIOLon 08-07-2019 ESTRADIOL 80 pg/mL Normal [facility] Comment on above: Result Comment: Estr adiol measurement is performed using the [employer] Access Immunoassay. Estradiol testing is performed using a different test methodology at [facility] than other [facility]. Direct result comparison should only be made within the same method. REF VALUES FOLLICULAR PHASE 20-144 MID CYCLE 64-357 LUTEAL PHASE 56-214 POSTMENOPAUSE < 32 PREPUBERTY < 20 MALE 10-18Y < 20 ADULT MALE < 40 Performed By: #### L H #### [facility] [address] [place] [id number] ESTRADIOLon 08-04-2019 ESTRADIOL 58 pg/mL Normal [facility] Comment on above: Result Comment: Estr adiol measurement is performed using the [employer] Access Immunoassay. Estradiol testing is performed using a different test methodology at [facility] than other [facility]. Direct result comparison should only be made within the same method. REF VALUES FOLLICULAR PHASE 20-144 MID CYCLE 64-357 LUTEAL PHASE 56-214 POSTMENOPAUSE < 32 PREPUBERTY < 20 MALE 10-18Y < 20 ADULT MALE < 40 Performed By: #### L H #### [facility] [address] [place] [id number] ESTRADIOLon 07-07-2019 ESTRADIOL 110 pg/mL Normal [facility] Comment on above: Result Comment: Estr adiol measurement is performed using the [employer] Access Immunoassay. Estradiol testing is performed using a different test methodology at [facility] than other [facility]. Direct result comparison should only be made within the same method. REF VALUES FOLLICULAR PHASE 20-144 MID CYCLE 64-357 LUTEAL PHASE 56-214 POSTMENOPAUSE < 32 PREPUBERTY < 20 MALE 10-18Y < 20 ADULT MALE < 40 Performed By: #### L H #### [facility] [address] [place] [address] NR MRI SELLA WO/Won 05-31-20 19 NR MRI SELLA WO/W Patient Name: KIARA ASHLEY STUDY: NR MRI SELLA WO/W; 05/31/2019 2:00 pm INDICATION: History of 7 mm microadenoma 2008. COMPARISON: None. ACCESSION NUMBER(S): [id number] ORDERING CLINICIAN: SHAHLA HEALY TECHNIQUE: High resolution [...] magnum. Electronically signed by: PHYSICIAN ELLEN Normal [facility] ESTRADIOLon 05-05-2019 ESTRADIOL 217 pg/mL Normal [facility] Comment on above: Result Comment: Estr adiol measurement is performed using the [employer] Access Immunoassay. Estradiol testing is performed using a different test methodology at [facility] than other [facility]. Direct result comparison should only be made within the same method. REF VALUES FOLLICULAR PHASE 20-144 MID CYCLE 64-357 LUTEAL PHASE 56-214 POSTMENOPAUSE < 32 PREPUBERTY < 20 MALE 10-18Y < 20 ADULT MALE < 40 Performed By: #### E STRA #### [facility] [address] [place] [address] LUTEINIZING HORMONEon 2018 LUTEINIZING HORMONE 4.4 IU/L Normal [facility] Comment on above: Result Comment: Lute inizing Hormone [LH] is performed using the [employer] Access Immunoassay. LH testing is performed using a different test methodology at [facility] than other [facility]. Direct result comparison should only be made within the same method. REF VALUES FOLLICULAR PHASE 1.5-10.0 MID-CYCLE 13.0-72.0 LUTEAL PHASE 0.5-13.0 MENOPAUSE 15.0-65.0 PREPUBERTY 0- 3.0 CHILDREN 0- 6.0 ADULT MALE 1.0- 9.0 Performed By: #### L H #### [facility] [address] [place] [id number] ESTRADIOLon 04-11-2019 ESTRADIOL 118 pg/mL Normal [facility] Comment on above: Result Comment: Estr adiol measurement is performed using the [employer] Access Immunoassay. Estradiol testing is performed using a different test methodology at [facility] than [facility]. Direct result comparison should only be made within the same method. REF VALUES FOLLICULAR PHASE 20-144 MID CYCLE 64-357 LUTEAL PHASE 56-214 POSTMENOPAUSE < 32 PREPUBERTY < 20 MALE 10-18Y < 20 ADULT MALE < 40 Performed By: #### E STRA #### [facility] [address] [place] [address] LUTEINIZING HORMONEon 2018 LUTEINIZING HORMONE 7.7 IU/L Normal [facility] Comment on above: Result Comment: Lute inizing Hormone [LH] is performed using the [employer] Access Immunoassay. LH testing is performed using a different test methodology at [facility] than [facility]. Direct result comparison should only be made within the same method. REF VALUES FOLLICULAR PHASE 1.5-10.0 MID-CYCLE 13.0-72.0 LUTEAL PHASE 0.5-13.0 MENOPAUSE 15.0-65.0 PREPUBERTY 0- 3.0 CHILDREN 0- 6.0 ADULT MALE 1.0- 9.0 Performed By: #### L H #### [facility] [address] [place] [address] PROGESTERONEon 04-11-2019 PROGESTERONE 0.1 ng/mL Normal [facility] Comment on above: Result Comment: Prog esterone is performed using the Jose GeoPage Access Immunoassay. Progesterone testing is performed using a different test methodology at [facility] than other [facility]. Direct result comparison should only be made within the same method. REF VALUES MALE <0.2-0.8 FOLLICULAR PHASE <0.2-1.5 LUTEAL PHASE 7.4-15.4 POSTMENOPAUSAL <0.2-0.2 1ST TRIMESTER 12.0-84.0 2ND TRIMESTER 10.2-58.8 3RD TRIMESTER 46.5-160 Performed By: #### P SVEN #### [facility] [address] [place] [address] ESTRADIOLon 03-17-2019 ESTRADIOL 120 pg/mL Normal [facility] Comment on above: Result Comment: Estr adiol measurement is performed using the Jose GeoPage Access Immunoassay. Estradiol testing is performed using a different test methodology at [facility] than other [facility]. Direct result comparison should only be made within the same method. REF VALUES FOLLICULAR PHASE 20-144 MID CYCLE 64-357 LUTEAL PHASE 56-214 POSTMENOPAUSE < 32 PREPUBERTY < 20 MALE 10-18Y < 20 ADULT MALE < 40 Performed By: #### E STRA #### [facility] [address] [place] [address] LUTEINIZING HORMONEon 2018 LUTEINIZING HORMONE 6.8 IU/L Normal [facility] Comment on above: Result Comment: Lute inizing Hormone [LH] is performed using the Jose [place] Access Immunoassay. LH testing is performed using a different test methodology at [facility] than other [facility]. Direct result comparison should only be made within the same method. REF VALUES FOLLICULAR PHASE 1.5-10.0 MID-CYCLE 13.0-72.0 LUTEAL PHASE 0.5-13.0 MENOPAUSE 15.0-65.0 PREPUBERTY 0- 3.0 CHILDREN 0- 6.0 ADULT MALE 1.0- 9.0 Performed By: #### L H #### [facility] [address] [place] [address] ESTRADIOLon 02-20-2019 ESTRADIOL 521 pg/mL Normal [facility] Comment on above: Result Comment: Estr adiol measurement is performed using the Jose GeoPage Access Immunoassay. Estradiol testing is performed using a different test methodology at [facility] than other [facility]. Direct result comparison should only be made within the same method. REF VALUES FOLLICULAR PHASE 20-144 MID CYCLE 64-357 LUTEAL PHASE 56-214 POSTMENOPAUSE < 32 PREPUBERTY < 20 MALE 10-18Y < 20 ADULT MALE < 40 Performed By: #### E STRA #### [facility] [address] [place] [address] LUTEINIZING HORMONEon 2018 LUTEINIZING HORMONE 3.5 IU/L Normal [facility] Comment on above: Result Comment: Lute inizing Hormone [LH] is performed using the Jose GeoPage Access Immunoassay. LH testing is performed using a different test methodology at [facility] than other [facility]. Direct result comparison should only be made within the same method. REF VALUES FOLLICULAR PHASE 1.5-10.0 MID-CYCLE 13.0-72.0 LUTEAL PHASE 0.5-13.0 MENOPAUSE 15.0-65.0 PREPUBERTY 0- 3.0 CHILDREN 0- 6.0 ADULT MALE 1.0- 9.0 Performed By: #### L H #### [facility] [address] [place] [address] Vital Signs Date Time Vital Sign Value Performing Clinician Modesto golden 12-27-2023 10:57-0500 Body mass index (BMI) [Ratio] 34.84 kg/m2 Bere JOHNSON Work Phone: [facility] 12-27-2023 10:57-0500 Body weight 83.64 kg Bere JOHNSON Work Phone: [facility] 12-27-2023 10:57-0500 Diastolic blood pressure 68 mm[Hg] Bere JOHNSON Work Phone: [facility] 12-27-2023 10:57-0500 Systolic blood pressure 110 mm[Hg] Bere JOHNSON Work Phone: [facility] 02-27-2023 11:35-0400 Body mass index (BMI) [Ratio] 29.26 kg/m2 Evelyn Perez Work Phone: [facility] 02-27-2023 11:35-0400 Body temperature 98.8 [degF] Evelyn Calderonrn Work Phone: [facility] [email or web address] 02-27-2023 11:35-0400 Body weight 72.58 kg Evelyn Calderonrn Work Phone: [facility] [email or web address] 02-27-2023 11:35-0400 Diastolic blood pressure 66 mm[Hg] Evelyn Calderonrn Work Phone: [facility] [email or web address] 02-27-2023 11:35-0400 Heart rate 88 /min Evelyn Calderonrn Work Phone: [facility] [email or web address] 02-27-2023 11:35-0400 Respiratory rate 14 /min Evelyn Calderonrn Work Phone: [facility] [email or web address] 02-27-2023 11:35-0400 SaO2% (BldA) [Mass fraction] 100 % Evelyn Calderonrn Work Phone: [facility] [email or web address] 02-27-2023 11:35-0400 Systolic blood pressure 103 mm[Hg] Evelyn Calderonrn Work Phone: [facility] [email or web address] 06-19-2021 14:03-0400 Body height 157.48 cm Evelyn Calderonrn Work Phone: KL-OCNYK-Gvfqmr 310 IVF Work Phone: 06-19-2021 14:03-0400 Body mass index (BMI) [Ratio] 29.26 kg/m2 Evelyn Calderonrn Work Phone: VA-CYJFX-Fbfhep 310 IVF Work Phone: 06-19-2021 14:03-0400 Body surface area Derived from formula 1.74 m2 Evelyn Calderonrn Work Phone: EW-JRBNT-Rpjycg 310 IVF Work Phone: 06-19-2021 14:03-0400 Body weight 72.58 kg Evelyn M Ana Work Phone: XA-IAVMN-Jzpodh 310 IVF Work Phone: 06-19-2021 14:03-0400 1 1 Evelyn Husain Ana Work Phone: PW-UTQLS-Virdvh 310 IVF Work Phone: Comment on above: GRAV PARA 06-19-2021 14:03-0400 0 1 Evelyn Husain Ana Work Phone: UB-XEPYO-Pkaela 310 IVF Work Phone: Comment on above: [employer] 06-07-2020 10:41-0400 BMI (Body Mass Index) 34.93 kg/m2 King Lappen OR-BABOS-RTI [address] [place] Work Phone: 06-07-2020 10:41-0400 Body weight 86.64 kg King Lappen UT-WOGNL-HJJ 120 0 [place] Work Phone: 06-07-2020 10:41-0400 BP Diastolic 76 mm[Hg] King Lappen VY-GXREM-YVL 120 0 [place] Work Phone: 06-07-2020 10:41-0400 BP Systolic 111 mm[Hg] King Lappen JG-HZQZO-MSU 120 0 [place] Work Phone: 06-07-2020 10:41-0400 BSA (Body Surface Area) 1.87 m2 King Lappen BA-YSCHO-UFA 1200 [place] Work Phone: 06-07-2020 10:41-0400 Pulse (Heart Rate) 101 /min King Lappen UE-ZTECE-EUG 1200 [place] Work Phone: 06-07-2020 10:41-0400 0 1 King Lappen EL-MBEUQ-PCY 120 0 [place] Work Phone: Comment on above: [employer] 12-25-2019 10:58-0500 BMI (Body Mass Index) 30.18 kg/m2 King Lappen KE-LCOQL-TEP 1200 [place] Work Phone: 12-25-2019 10:58-0500 Body weight 74.84 kg King Lappen SZ-SKKVO-IYR 120 0 [place] Work Phone: 12-25-2019 10:58-0500 BP Diastolic 68 mm[Hg] King Lappen TF-MKOGJ-UIN 120 0 [place] Work Phone: 12-25-2019 10:58-0500 BP Systolic 112 mm[Hg] King Lappen VP-IGHFM-STX 120 0 [place] Work Phone: 12-25-2019 10:58-0500 BSA (Body Surface Area) 1.76 m2 King Lappen RX-EAQJM-HCW 1200 [place] Work Phone: 11-09-2019 11:28-0500 Body Temperature 98.78 [degF] Kelechi Gage ZY-RHPKN-Akadop 310 IVF Work Phone: 11-09-2019 11:28-0500 BP Diastolic 76 mm[Hg] Kelechi Gage MJ-KNETO-Hcyvez 310 IVF Work Phone: 11-09-2019 11:28-0500 BP Systolic 112 mm[Hg] Kelechi Gage YG-TEWSR-Qgpwva 310 IVF Work Phone: 11-09-2019 11:28-0500 Respiratory Rate 96 /min Kelechi Gage GL-ZGPUW-Ydssbw 310 IVF Work Phone: Encounters Encounter Date Encounter Type Care Provider Facility Start: 01-24-2024 End: 01-24-2024 ambulatory BERE STEEL Not Available Start: 01-10-2024 End: 01-11-2024 ambulatory Zoya Buitrago REEL WORKER-MANAGER PROCUREMENT Facility:Pulmonology & Critical Care Medicine [facility] Start: 12-27-2023 End: 12-27-2023 ambulatory BERE STEEL Not Available Start: 12-27-2023 End: 12-27-2023 flow sheet Bere Steel PA Work Phone: [facility] Comment on above: Third trimester preg teddy; First trimester ; Hypothyroidism, unspecified type (CMS/HCC); Hypothyroidism (acquired) (CMS/[facility]); H/O blood clots; Excessive growth affecting management of in third trimester, single or unspecified fetus Start: 11-30-2023 End: 11-30-2023 ambulatory DEMARIO RIBEIRO Not Available Start: 11-03-2023 End: 11-03-2023 ambulatory DEMARIO RIBEIRO Not Available Start: 10-05-2023 End: 10-05-2023 ambulatory BERE ELSA Not Available Start: 09-14-2023 End: 09-14-2023 ambulatory Lc Waite Facility:[facility] Start: 02-27-2023 End: 02-27-2023 Emergency department patient visit EVELYN Husani ANA [facility] Start: 02-27-2023 End: 02-27-2023 Emergency department patient visit Evelyn Ana Work Phone: [facility] ED Comment on above: Sprain of left ankle , unspecified ligament, initial encounter (Primary Dx) Start: 01-11-2023 End: 01-11-[address] DEMARIO RIBEIRO . Facility:[facility] Start: 09-22-2022 End: 09-22-2022 Emergency department patient visit JAMI ROMERO [facility] Start: 03-10-[address] EVELYN PEREZ [...] 12-27-2021 End: 12-27-2021 ambulatory Sabina Barnhart Other [place] [employer] Other Start: 12-27-2021 Office outpatient visit 5 minutes Sabina Barnhart [facility] Start: 07-16-2021 Patient encounter procedure Evelyn Perez Work Phone: YP-PDPCA-Ebbbnd 310 IVF Work Phone: Start: 07-07-2021 AUDIT Evelyn santana Work Phone: GQ-LBQNE-Evkhns 310 IVF Work Phone: Start: 07-07-2021 Chart Update Evelyn santana Work Phone: DN-HYQTZ-Tlccqe 310 IVF Work Phone: Start: 07-02-2021 Telephone encounter Evelyn gonzales Work Phone: LG-ELSZA-Lmxryb 310 IVF Work Phone: Start: 06-19-2021 Patient encounter procedure Evelyn Perez Work Phone: QG-TRVYL-Bapfjc 310 IVF Work Phone: Start: 06-07-2020 Patient encounter procedure King Lappen CV-QGPFC-HBK 1200 [place] Work Phone: Start: 04-24-2020 Patient encounter procedure King Lappen YZ-ZFFIL-BNR 1200 [place] Work Phone: Start: 02-20-2020 Patient encounter procedure King Lappen PK-YPKPN-WRQ 1200 [place] Work Phone: Start: 02-14-2020 Patient encounter procedure King Kemppen VZ-SQVPC-MCN 1200 [place] Work Phone: Start: 01-23-2020 Patient encounter procedure King Lappen LS-FCGSA-YAZ 1200 [place] Work Phone: Start: 12-25-2019 Patient encounter procedure King Lappen TR-TFUCQ-PPM 1200 [place] Work Phone: Start: 11-21-2019 Patient encounter procedure King Kemppen MQ-UCKVB-PIQ 1200 [place] Work Phone: Start: 11-16-2019 Patient encounter procedure Kelechi Gage MP-Reproductive Endocrinology-Germfask 206 Work Phone: Start: 11-14-2019 Patient encounter procedure Kelechi Gage HZ-EDIQT-Xsysru 310 IVF Work Phone: Start: 11-09-2019 Patient encounter procedure Kelechi Gage LL-DGIBZ-Kinkqr 310 IVF Work Phone: Start: 11-02-2019 Patient encounter procedure Kelechi Gage MP-Reproductive Endocrinology-Risman Work Phone: Start: 10-21-2019 Patient encounter procedure Kelechi Gage MP-Reproductive Endocrinology-Risman Work Phone: Start: 10-14-2019 Patient encounter procedure Kelechi Gage OA-UKZLB-Qveacb 310 IVF Work Phone: Start: 10-11-2019 Patient encounter procedure Kelechi Gage SD-ZYLGZ-Jjkdxz 310 IVF Work Phone: Start: 10-05-2019 Patient encounter procedure Kelechi Gage OX-RJQPS-Nkghis 320 Work Phone: Start: 10-02-2019 Patient encounter procedure Kelechi Gage YB-QJBEV-Maaolrh 206A IVF Work Phone: Start: 08-14-2019 Patient encounter procedure Kelechi Gage BD-UWMPI-Wuharz 310 IVF Work Phone: Start: 08-13-2019 Patient encounter procedure Kelechi Gage OX-VJSMG-Llcagg 310 IVF Work Phone: Start: 08-12-2019 Patient encounter procedure Kelechi Gage NI-EHPON-Stbnbq 310 IVF Work Phone: Start: 08-11-2019 Patient encounter procedure Kelechi TONGBH-KMSHE-Xxelij 310 IVF Work Phone: Start: 08-09-2019 Patient encounter procedure Kelechi TONGPF-TWCWH-Wmavcq 310 IVF Work Phone: Start: 08-07-2019 Patient encounter procedure Kelechi Gage KM-UIGSZ-Jtocbg 310 IVF Work Phone: Start: 08-04-2019 Patient encounter procedure Kelechi TONGZQ-JIZDU-Ekyewo 310 IVF Work Phone: Start: 07-07-2019 Patient encounter procedure Kelechi Gage OV-CTMQF-Cpmvlt 310 IVF Work Phone: Start: 06-08-2019 Patient encounter procedure Kelechi TONGMM-SQJQN-Cfeheu 310 IVF Work Phone: Start: 05-17-2019 Patient encounter procedure Kelechi TONGTH-KSDDI-Pltarv 310 IVF Work Phone: Start: 05-08-2019 Patient encounter procedure Kelechi TONGJA-NUMSL-Sduxet 310 IVF Work Phone: Start: 05-05-2019 Patient encounter procedure Kelechi TONGFU-JCIFT-Rjnssk 310 IVF Work Phone: Start: 04-13-2019 Patient encounter procedure Kelechi TONGPN-XWQZM-Gccwhy 310 IVF Work Phone: Start: 04-11-2019 Patient encounter procedure Kelechi Gage WJ-WOQQF-Egfxid 310 IVF Work Phone: Start: 03-20-2019 Patient encounter procedure Kelechi Gage FV-LMDGA-Vpiuzg 310 IVF Work Phone: Start: 03-17-2019 Patient encounter procedure Kelechi TONGOX-EOZLZ-Mrsqas 310 IVF Work Phone: Start: 02-22-2019 Patient encounter procedure Kelechi Gage PM-CNLKW-Fiisfa 310 IVF Work Phone: Start: 02-20-2019 Patient encounter procedure Kelechi Gage RC-MQJBP-Cirfpw 310 IVF Work Phone: Start: 02-13-2019 Patient encounter procedure Bruce Mayes Facility:[facility] Start: 02-08-2019 End: 02-12-2019 Patient encounter procedure Bruce Mayes Facility:[facility] Start: 01-19-2019 Patient encounter procedure Kelechi Gage NR-GDMWL-Wpjdqu 310 IVF Work Phone: Patient encounter status Evelyn Perez Work Phone: MK-NNDVN-Ydglly 310 IVF Work Phone: Procedures Date Procedure [...] Routine [facility] [address] [place], [place] [id number] Demario Ribeiro, DO [address] [place] [address] [facility] Start: 02-07-2024 End: 02-07-2024 Professional / ancillary services management 02/07/2024 9:00 AM EDT Ancillary Procedure [facility] [address] [place], [place] [phone] [facility] Start: 01-24-2024 End: 01-24-2024 Patient encounter procedure 01/24/2024 9:30 AM EDT Routine [facility] [address] [facility] [address] [place], [place] [phone] Bere Steel PA [address] [facility] [address] [place], [place] [id number] [facility] Start: 01-10-2024 End: 01-10-2024 Patient encounter procedure 01/10/2024 2:20 PM EST Routine [facility] [address] [facility] [address] [place], [place] [address] Demario Ribeiro DO [address] [facility] [address] [place] [place], [place] [id number] [facility] Start: 01-10-2024 End: 01-10-2024 Professional / ancillary services management 01/10/2024 2:00 PM EST Ancillary Procedure [facility] [address] [facility] [address] [place], [place] [phone] [facility] Start: 12-27-2023 End: 12-27-2024 US biophysical profile w non stress test US biophysical profile w non stress test Imaging Routine Hypothyroidism (acquired) (CMS/HCC) H/O blood clots Expected: 12/27/2023 (Approximate), Expires: 12/27/2024 [facility] Healthcare Work Phone: Comment on above: Expected: 12/27/2023 (Approximate), Expires: 12/27/2024 Start: 12-27-2023 End: 12-27-2024 US for US OB SCAN FOR GROWTH Imaging Routine Hypothyroidism, unspecified type (CMS/HCC) Excessive growth affecting management of in third trimester, single or unspecified fetus Expected: 12/27/2023 (Approximate), Expires: 12/27/2024 [facility] Healthcare Comment on above: Expected: 12/27/2023 (Approximate), Expires: 12/27/2024 Start: 06-15-2023 Influenza vaccination Flu vacc ine (Season Ended) [facility] Start: 2021 Screening for malignant neoplasm of cervix [facility] Start: 07-25-2021 ULTRASOUND, Provider : OBGYN IVF RDMS ARDEN 1,[facility], Status: Pen, Time: 9:00 AM ULTRASOUND, Provider: OBGYN IVF RDMS ARDEN 1,MG OBG[facility], Status: Pen, Time: 9:00 AM TT-ZEASE-Geurdk 310 IVF Work Phone: Start: 07-16-2021 ULTRASOUND, Provider : OBGYN IVF RDMS [id number] 1,[facility] OBG[facility], Status: Pen, Time: 1:00 PM ULTRASOUND, Provider: OBGYN IVF RDMS [id number] 1,[facility] OBG[facility], Status: Pen, Time: 1:00 PM KU-BQEUY-Zqyiog 310 IVF Work Phone: Start: 07-07-2021 ULTRASALIN, Provider : Miguel A Barrera, Status: Pen, Time: 10:00 AM ULTRASALIN, Provider: Miguel A Barrera, Status: Pen, Time: 10:00 AM SA-VLZPD-Uxeaym 310 IVF Work Phone: Start: 06-05-2020 MAC Imaging Order MG-BICYCLE FITTER-MAC 1200 [place] Work Phone: Start: 11-16-2019 IO Ultrasound, -Reproductive Endocrinology-[facility] chastity 206 Work Phone: Start: 11-14-2019 Blood count complete auto&auto difrntl wbc Complete Blood Count + Differential HC-YRWKH-Jzlwuy 310 IVF Work Phone: Start: 11-14-2019 Comprehensive metabolic 2000 panel WA-JWZVO-Qcxoox 310 IVF Work Phone: Start: 11-02-2019 Gonadotropin chorion ic quantitative HCG, Beta Quantitative MP-Reproductive Endocrinology-[place] chastity 206 Work Phone: Start: 10-11-2019 IO Ultrasound, limited pelvic, follicle monitoring EF-VPTNT-Gqepgh 310 IVF Work Phone: Start: 10-05-2019 IO Ultrasound, limited pelvic, follicle monitoring JW-ETHAY-Ztgakq 320 Work Phone: Start: 2012 Screening for malignant neoplasm of cervix Pap smear [facility] Start: 2010 DTaP/Tdap/Td vaccine (1 - Tdap) DTaP/Tdap/Td vaccine (1 - Tdap) [facility] Start: 2009 Hepatitis C screening Hepatitis C sc reen [facility] Start: 2006 HIV screening HIV screen [facility] Start: 2003 Depression Screen Depression Screen [facility] Start: 1992 Varicella vaccine (1 of 2 - 2-dose childhood series) Varicella vaccine (1 of 2 - 2-dose childhood series) [facility] Start: 03-02-1992 COVID-19 Vaccine (#1) COVID-19 Vacci ne (#1) [facility] Assay of estradiol Estradiol, Serum MG-BICYCLE FITTER-Risman 310 IVF Work Phone: Comment on above: Approx [id number] Approx [id number] Approx [id number] Assay of progesterone Progesterone, Serum VH-BQIKC-Gzwvbo 310 IVF Work Phone: Comment on above: Approx [id number] Gonadotropin luteinizing hormone Luteinizing Hormone, Serum KO-SBPXQ-Inoeya 310 IVF Work Phone: Comment on above: Approx [id number] YF-VTZZX-Vovsjv 320 Work Phone: IO Ultrasound, l imited pelvic, follicle monitoring ZG-GJCUL-Tmamao 310 IVF Work Phone: Comment on above: Approx [id number] Approx [id number] Approx [id number] NEGATED: Highlighted row has been ruled out! Planned Goals not documented JR-NXJDX-Vjizra 310 IVF Work Phone: Payers Date Payer Category Payer Self-pay 2016 Private Health Insurance [id number] 2016 Private Health Insurance [id number] 1991 Unknown [id number] 2.16.84 0.1.100949.3.579.2.593 1991 Unknown [id number] 2.16.84 0.1.112168.3.579.2.593 1991 Unknown [id number] 2.16.84 0.1.692874.3.579.2.593 1991 Unknown [id number] 2.16.84 0.1.524737.3.579.2.593 1991 Unknown [id number] 2.16.84 0.1.088455.3.579.2.593 1991 Unknown [id number] 2.16.84 0.1.565112.3.579.2.593 1991 Unknown [id number] 2.16.84 0.1.918922.3.579.2.593 1991 Unknown [id number] 2.16.84 0.1.494228.3.579.2.593 1991 Unknown [id number] 2.16.84 0.1.206656.3.579.2.593 1991 Unknown [id number] 2.16.84 0.1.597914.3.579.2.593 1991 Unknown [id number] 2.16.84 0.1.615205.3.579.2.593 1991 Unknown [id number] 2.16.84 0.1.689878.3.579.2.593 1991 Unknown [id number] 2.16.84 0.1.464670.3.579.2.593 1991 Unknown [id number] 2.16.84 0.1.614563.3.579.2.593 1991 Unknown [id number] 2.16.8 40.1.550249.3.579.2.173 1991 Unknown [id number] 2.16.8 40.1.442426.3.579.2.173 1991 Unknown [id number] 2.16. 840.1.509105.3.579.2.196 1991 Unknown [id number] 2.16. 840.1.710838.3.579.2.196 1991 Unknown [id number] 2.16.84 0.1.853435.3.579.2.1259 1991 Unknown [id number] 2.16.84 0.1.026553.3.579.2.1259 1991 Unknown [id number] 2.16.84 0.1.417495.3.579.2.1259 1991 Unknown [id number] 2.16.84 0.1.793247.3.579.2.1259 1991 Unknown [id number] 2.16.840 .1.061937.3.579.2.1259 1991 Unknown [id number] 2.16.840 .1.327481.3.579.2.1259 1959 Self-pay [id number] 1959 Unknown [id number] 1959 Unknown [id number] Unknown [id number] 2.16.8 40.1.265850.3.579.2.243 Unknown [id number] 2.16.8 40.1.408551.3.579.2.243 Unknown Unknown [id number] 2.16.8 40.1.366061.3.579.2.531 Social History Date Type Detail Facility - - [address] Work Phone: Start: 05-11-2023 End: 12-27-2023 Never a smoker Never a smoker [facility] Comment on above: [facility]; Start: 05-11-2023 End: 09-06-2023 Sex Assigned At [facility] Start: 09-22-2022 End: 04-15-2023 Tobacco smoking status HIIS Never smoked tobacco [facility] Work Phone: Start: 09-22-2022 End: 04-15-2023 Tobacco use and exposure Smokeless tobacco non-user [facility] Work Phone: Start: 1991 Sex Assigned At Not on file [employer] Phone: Start: 02-17-2023 End: 02-27-2023 Exposure to SARS-CoV-2 (event) Not sure [facility] Start: 12-27-2023 Alcohol intake Current drinke r [...] status health issues are not documented Disease TJ-LYZFQ-Douezi 310 IVF Work Phone: Mental Status Date Assessment Result Facility NEGATED: Highlighted row Cognitive function [Interpretation] Cognitive status health issues are not documented Disease AG-UFLUH-Bttgwh 310 IVF Work Phone: History of Present [...] of: ELIZABETH Daly documented in this encounter [facility] Healthcare Evaluation note 12-27-2021 Note Date [...] Patient care instructions given in writting by [facility] Care At Home document. [employer] Other Clinical Note 07-25-2021 Note Date & [...] care. Reviewed plan with Dr. Bruce Aburto, MANAGER PROCUREMENT 07/25/2021 09:22 note: ob scan LOLLY: 03/05/2022. [...] Plan reviewed by Dr. Healy. Petra Lombardi MANAGER PROCUREMENT 07/16/21 1409 TC to pt with quant = 3238 form yesterday; normal rise from 728 on 07/02; Pt doing well; no problems with Lovenox. [facility] to schedule OB US for next week at [facility]. Bere Way RN 07/07/2021 11:47 Spoke with patient regarding DJLW=902. Pain=0. Patient states she will begin prometrium [...] Dr. Healy. RN to communicate. Petra Lombardi MANAGER PROCUREMENT 07/02/21 1304 Active Problems 16 weeks gestation [...] directed. Peak F (more content not included)... [email or web address] Chief complaint Narrative - Reported 06-19-2021 Note [...] 30 year-old who presents for a FET [id number] Hx:06/2020: IOL @ 38 weeks due to [...] contour on HSG - images reviewed from [facility] 08/2018Uterine Cavity Evaluation:Normal uterine cavity [...] on therapeutic dosing when Genetic Screening Hx: [facility] [employer] screen negativePartner History:Franklin Ashley 04/09/1989A in past year:2.8 cc125 mil/mL69% xvuvjuuwITM=343 million(recent IUI sample)Morph from original SA was 2.8% JF-TELUU-Yrqpdq 310 IVF Work Phone: Evaluation note Note Date & Type Note Facility Evaluation note Diagnosis Sprain of left ankle, unspecified ligament, initial encounter- Primary documented in this encounter [facility] Work Phone: Evaluation note Note Date & Type Note Facility Evaluation note Diagnosis Third trimester state, incidental First trimester state, incidental Hypothyroidism, unspecified type (CMS/HCC) Hypothyroidism (acquired) (CMS/HCC) Unspecified hypothyroidism H/O blood clots Excessive growth affecting management of in third trimester, single or unspecified fetus documented in this encounter [facility] Hospital Discharge instructions Attachments Note Date & Type Note Facility Hospital Discharge instructions The following attachments cannot be sent through Care Everywhere.Ankle Sprain (Panamanian)Ankle Sprain: Rehab Exercises (Panamanian)documented in this encounter [employer] Phone: Summary Purpose Family History No Family [...] section and content) DATE CREATED AUTHOR 02/15/2019 [facility] DATE CREATED AUTHOR AUTHOR'S ORGANIZ ATION 11/12/2019 [facility] DATE CREATED AUTHOR AUTHOR'S ORGANIZ ATION 08/09/2020 [facility] DATE CREATED AUTHOR AUTHOR'S ORGANIZ ATION 07/26/2021 [facility] DATE CREATED AUTHOR AUTHOR'S ORGANIZ ATION 01/21/2023 [facility] DATE CREATED AUTHOR AUTHOR'S ORGANIZ ATION 03/06/2023 [facility] DATE CREATED AUTHOR AUTHOR'S ORGANIZ ATION 07/12/2023 [facility] DATE CREATED AUTHOR AUTHOR'S ORGANIZ ATION 10/04/2023 [facility] DATE CREATED AUTHOR AUTHOR'S ORGANIZ ATION 01/15/2024 [facility] DATE CREATED AUTHOR AUTHOR'S ORGANIZ ATION 01/24/2024 [facility] EPIC REASON FOR VISIT (unrecogniz ed section and content) Reason Comments Ankle Pain Rolled ankle during morning run. Swelling to lateral ankle. 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 Reason Comments Routine Visit Care Teams (unrecognized sec tion and content) Cloth Measurer Relationship Specialty Start Date End Date Evelyn Perez [address] [place] [id number] PCP - General Pediatrics 09/22/22 Cloth Measurer Relationship Specialty Start Date End Date Jesse Regan MD [address] [place] [address] PCP - General Family Medicine 11/30/23 FOR [...] BE BASED ON THE PRIMARY CLINICAL RECORDS. Foodist [facility]. provides no warranty or guarantee of the accuracy or completeness of information in this document.
--- NOTE | 2024-02-07 09:08 | US_ITS ---
[address] [address] Patient Name: ELVIN STUART MRN: [id number] date: 1990 Sex: F Assigned Patient Location: [facility] [place] Current Patient Location: [facility] Accession/Order Number: [id number] Exam Date: 02/07/2024 09:09 Report Date: 02/07/2024 10:41 At the request of: RADAMES CHAUHAN Procedure: US OB growth EXAMINATION: US OB growth HISTORY: SIZE INCONSISTENT WITH DATES COMPARISON: No relevant comparison available. FINDINGS: Heart Rate: 151.0 bpm Amniotic Fluid Volume: 9.5 cm Number: 1.0 Position: Cephalic presentation, longitudinal lie Maximum Vertical Pocket: 1.9 cm cm 2.1 cm cm 2.2 cm cm 3.2 cm cm BIOMETRY: BPD: 8.5 cm cm; 34 weeks 1 days; 43% HC: 32.4 cmcm; 36 weeks 4 days , 71% AC: 32.2 cm cm; 36 weeks 1 days, 92% FL: 6.8 cm cm; 34 weeks 6 days; 53.8 % % EFW: 2734.1 grams, 6 lbs. 0 oz., 80% FL/AC: 21.1 FL/BPD: 80.0 HC/AC: 1.0 GESTATIONAL AGE: Age by EDC: 34 weeks 3 days LOLLY by EDC: 03/17/2024 Age by US: 35 weeks 3 days LOLLY by US: 03/10/2024 US/US OB growth IMPRESSION: Normal interval growth Electronically authenticated by: JESSE THOMAS Date: 02/07/2024 10:41
--- NOTE | 2024-02-07 09:08 | US_ITS ---
[address] [address] Patient Name: ELVIN STUART MRN: [id number] date: 1990 Sex: F Assigned Patient Location: [facility] [place] Current Patient Location: [facility] [place] Accession/Order Number: [id number] Exam Date: 02/07/2024 09:09 Report Date: 02/07/2024 10:33 At the request of: RADAMES CHAUHAN Procedure: US OB BPP w non-stress EXAMINATION: US OB BPP w non-stress HISTORY: SIZE INCONSISTENT WITH DATES COMPARISON: No relevant comparison available. TECHNIQUE: Ultrasound biophysical profile was performed in the radiology department. non-reactive stress testing was performed by nursing staff in the birthing center. FINDINGS: BREATHING MOVEMENTS: 2 GROSS BODY MOVEMENTS: 2 TONE: 2 QUALITATIVE AMNIOTIC FLUID VOLUME: 2 PRESENTATION: CEPHALIC HEART RATE: 151.0 bpm H.B./min AMNIOTIC FLUID VOLUME: 9.5 cm cm GESTATIONAL AGE: 34 weeks 3 days CONCLUSION: Total biophysical profile score: 8 Electronically authenticated by: JESSE THOMAS Date: 02/07/2024 10:33
[2024-02-07 10:54] VITALS: BP 111/71; PULSE 90; TEMP 36.6
== END 2024-02-07 11:22 | disposition home or self-care (01) ==
LOC: NOMS 07:37 → FBCO 09:47 → FBC 10:49
PROVIDERS: Visit Provider Obstetrics & Gynecology
DX: O44.40 Low lying placenta NOS or without hemorrhage, unspecified trimester (principal); E03.9 Hypothyroidism, unspecified; Z3A.34 34 weeks gestation of pregnancy
CPT/HCPCS: 59025; 76816; 76818

== ENCOUNTER 2024-02-10 07:12 | Outpatient (OUT) | payer OTHER, SELFPAY ==
--- OUTSIDE RECORDS SUMMARY | 2024-02-10 07:15 | XMS_ITS | CCD ---
Author Organization [facility] Care Team Providers Care Respooler Name Role Phone Bruce Maeys Attending Unavailable Bruce Mayes Primary Care Unavailable Shahla Healy Consulting Unavailable Bruce Mayes Attending Unavailable Bruce Mayes Primary Care Unavailable Shahla Healy Consulting Unavailable Kelechi Gage Unavailable Unavailable OBGYN IVF RDMS ARDEN 1, MG OBGYN Unavailable Unavailable Evelyn Perez Unavailable Unavailabl e Shahla Healy Unavailable Unavailable Shahla Healy Unavailable Unavailable IVF NURSE OSMEL HER Unavailable Unavaila ble OBGYN IVF RDMS [id number] 1, MG OBGYN Unavailable Unavailable Lapkathrine King Unavailable Unavailable Shahla Healy Unavailable Unavailable January, Jami Unavailable Unavailable Evelyn Perez Unavailable [phone] Unavailable Unavailable Unavailable Unavailable Sabina Barnhart Unavailable [...] Unavailable Ana, Evelyn Husain Primary Care Provider [phone] JAMI ROMERO Attending Unavailable ANA, EVELYN Husain Primary Care Unavailabl e ANA, EVELYN M Primary Care UnavailLc Rick Admitting Unavailable Evelyn Perez Primary Care Unavailable Lc Waite Attending Unavailable Jesse Regan MD Primary Care Provider [facility] [place], Zoya Cheung Attending Evelyn Robertson MD Primary Care Zamzam vailasánchez Perez MD, Evelyn Gracia Primary Care Zamzam vailable Link KEEGANRESIDENTIAL CAREGIVER, Zoya Cheung Attending Zamzamva DEMARIO Hoang Attending Unavailable BERE STEEL Attending Unavailable ELSA, BERE Attending Unavailable DEMARIO RIBEIRO Attending Unavailable BERE STEEL Attending Unavailable DEMARIO RIBEIRO Attending Unavailable DEMARIO RIBEIRO Attending Unavailable Allergies Allergy Classification Reported Allergen(s) Allergy Type Date of Onset Reaction(s) Facility Progesterone (2 sources) Progesterone; Translations: [Progesterone OIL] Drug Allergy [id number] n 310 IVF Work Phone: (16 sources) Progesterone; Translations: [Progesterone OIL] Drug Allergy 2 [facility] (2 sources) sesame seed extract Drug Allergy [facility] (2 sources) Progesterone Drug Allergy 2 [facility] (1 source) No Known Medication Allergies; Translations: [No Known Medication Allergies] Propensity to adverse reactions to drug (disorder) [facility] Repository Medications Current Medications Medication [...] Kelechi Gage MD Start : 14-Aug-2019 Active [id number] 200 actuat albuterol 0.09 mg/actuat metered dose [...] DO Start : 19-Jan-2019 Active BD Disp Medina 27G X 1/2 (19 sources) Start: 10-03-2019 BD Disp Needle s 27G X 1/2 USE DIRECTED. Quantity: 2 Refills: 2 Shahla Healy MD Start : 03-Oct-2019 Active chorionic gonadotropin 38565 unt/ml injectable solution (19 sources) Gonadotropin Start: 10-03-2019 Chorionic Gonadotropin 60073 UNIT Intramuscular Solution Reconstituted USE DIRECTED. Quantity: [...] UNIT Daily Quantity: 1 Refills: 4 Shahla Helay MD Start : 03-Oct-2019 Active 0.42 ML [...] Start : 25-Dec-2019 Active Peak Flow Meter [place] Rang Device (3 sources) Start: 01-23-2020 Peak Flow Mete r [place] Rang Device USE DIRECTED. Quantity: 1 Refills: [...] refills. Continue with anticoagulation as prescribed by [employer], patient is currently 30 weeks gestation. Follow-up [...] embolism Historical No qualifying data Procedure/Surgical History Sunset Teeth Removal (2005) IVF (11/15/2018) Medications Dulera [...] Link Zoya PERKINS 01/10/24 12:40 EST Normal [facility] Phone Note - Heme Onc-medica tion questionon 07-12-2023 Phone Note - Heme Onc-medication question Phone Call Information: Patient Demographics: Name: KIARA ASHLEY Date: 1990 Address: [address] [place] [address] Date and Time: 12-Jul-2023 09:31 Caller Information: call from Call From: patient Caller Name: Kiara Primary Phone Number: [phone] Reason for Call: Reason for Callmedication question Message: Message: Patient found out yesterday that she is so she will need to double her Lovenox Asking for new RX Caller Informed Of: Per Dr. Mayes: she needs lovenox 40 mg SC BID for first trimester Team Communication: Clinician note: contacted patient Disposition: Rx sent by [employer] Team Communications: Spoke with the patient. States she is positive for . Provided update from Dr. Mayes above. Pt asked for script to be sent to [facility]. Script sent. Pt had no further questions [...] Dario William MD 02/27/23 Final result Normal [facility] 1. No acute osseous abnormality involving the left ankle. [facility] EXAMINATION: THREE XRAY VIEWS OF THE LEFT ANKLE 02/27/2023 11:46 am COMPARISON: None. HISTORY: ORDERING SYSTEM PROVIDED HISTORY: pain, swelling TECHNOLOGIST PROVIDED HISTORY: pain, swelling FINDINGS: The bone mineralization is within normal limits. The ankle mortise is stable. No acute fractures or dislocations are seen. There is no soft tissue swelling. [facility] Dario William MD - 02/27/2023 [...] acute osseous abnormality involving the left ankle. [email or web address] Phone: Radiology Study observation (narrative) [email or web address] Phone: XR ANKLE LEFT (MIN 3 VIEWS)O rdered By: Dario Stewart on 02-27-2023 [email or web address] Phone: PAP ACOG PANEL 2: 30 to 65on 01-19-2023 . . Normal [facility] Comment on above: Result Comment: Perf ormed at: WB Performed By: #### [id number] #### [facility] [address] [address] [address] Claire Mayes Age Gdln ACOG Testing 31- Normal [facility] Comment on above: Performed By: #### [id number] #### [facility] [address] [address] [address] Claire Mayes DIAGNOSIS: Comment Normal [facility] Comment on above: Result Comment: NEGA TIVE FOR INTRAEPITHELIAL LESION OR MALIGNANCY. Performed at: WB Performed By: #### [id number] #### [facility] [address] [address] [address] Claire Mayes HPV Aptima Negative Normal Negative [facility] Comment on above: Result Comment: This nucleic acid amplification test detects fourteen high-risk HPV types (16,18,31,33,35,39,45,51,52,56,58,59,66,68) without differentiation. Performed at: =G Performed By: #### [id number] #### [facility] [address] [address] [address] Claire Mayes HPV Genotype Reflex Comment Normal [facility] Comment on above: Result Comment: Crit eria not met, HPV Genotype not performed. Performed at: WB Performed By: #### [id number] #### [facility] [address] [address] [address] Claire Mayes Methodology: Comment Normal [facility] Comment on above: Result Comment: This liquid based ThinPrep(R) pap test was screened with the use of an image guided system. Performed at: WB Performed By: #### [id number] #### [facility] [address] [place] [address] Dr. Claire Mayes Note: Comment Normal [facility] Comment on above: Result Comment: The Pap smear is a screening test designed to aid in the detection of premalignant and malignant conditions of the uterine cervix. It is not a diagnostic procedure and should not be used as the sole means of detecting cervical cancer. Both false-positive and false-negative reports do occur. . Performed at: WB Performed By: #### [id number] #### [facility] [address] [place] [address] Dr. Claire Mayes Performed by: Comment Normal [facility] Comment on above: Result Comment: Sherlyn Wright, Criminal Court Judge (ASCP) Performed at: WB Performed By: #### [id number] #### [facility] [address] [place] [address] Dr. Claire Mayes Specimen adequacy: Comment Normal [facility] Comment on above: Result Comment: Sati sfactory for evaluation. No endocervical component is identified. Performed at: WB Performed By: #### [id number] #### [facility] [address] [place] [address] Dr. Claire Mayes CBC with Diffon 09-22-2022 Abs. Basophil 0.03 k/uL Normal 0.00-0.20 [facility] Comment on above: Performed By: #### L BJ BUCK, CP #### [facility] [address] [place] [address] Dr. [address] [place] [id number] System Administrator: Jesse Curry MD Abs.Imm.Granulocy te 0.04 k/uL Normal 0.00-0.30 [facility] Comment on above: Performed By: #### L BJ BUCK, CP #### [facility] [address] [place] [place] [id number] System Administrator: Jesse Curry MD Abs.Neutrophil (Seg) 12.54 k/uL High 1.50-8.10 [facility] Comment on above: Performed By: #### L IP, CDP, CP #### [facility] [address] [place], [place] [address] System Administrator: Jesse Curry MD Basophils/100 WBC (Bld) 0 % Normal 0-2 [facility] Comment on above: Performed By: #### L IP, CDP, CP #### [address] [place], [place] [address] System Administrator: Jesse Curry MD Eosinophils (Bld) [#/Vol] 0.16 10*3/uL Normal 0.00-0.44 [facility] Comment on above: Performed By: #### L IP, CDP, CP #### [address] [place], [place] [address] System Administrator: Jesse Curry MD Eosinophils/100 WBC (Bld) 1 % Normal 1-4 [facility] Comment on above: Performed By: #### L IP, CDP, CP #### [address] [place], [facility]83 System Administrator: Jesse Curry MD Erythrocyte distribution width (RBC) [Ratio] 13.6 % Normal 11.8-14.4 [facility] Comment on above: Performed By: #### L IP, CDP, CP #### [address] [place], [place] [address] System Administrator: Jesse Curry MD Hematocrit (Bld) [Volume fraction] 46.4 % Normal 36.3-47.1 [facility] Comment on above: Performed By: #### L IP, CDP, CP #### [address] [place], [facility]83 System Administrator: Jesse Curry MD Hemoglobin (Bld) [Mass/Vol] 15.6 g/dL High 11.9-15.1 [facility] Comment on above: Performed By: #### L IP, CDP, CP #### [facility] [address] [place], [place] [id number] System Administrator: Jesse Curry MD Immature granulocytes/100 WBC (Bld) 0 % Normal 0 [facility] Comment on above: Performed By: #### L IP, CDP, CP #### [address] [place], [facility]83 System Administrator: Jesse Curry MD Lymphocytes (Bld) [#/Vol] 0.98 10*3/uL Low 1.10-3.70 [facility] Comment on above: Performed By: #### L IP, CDP, CP #### [address] [place], [facility]83 System Administrator: Jesse Curry MD Lymphocytes/100 WBC (Bld) 7 % Low 24-43 [facility] Comment on above: Performed By: #### L IP, CDP, CP #### [address] [place], [facility]83 System Administrator: Jesse Curry MD MCH (RBC) [Entitic mass] 30.4 pg Normal 25.2-33.5 [facility] Comment on above: Performed By: #### L IP, CDP, CP #### [address] [place], [facility]83 System Administrator: Jesse Curry MD MCHC (RBC) [Mass/Vol] 33.6 g/dL Normal 28.4-34.8 [facility] Comment on above: Performed By: #### L IP, CDP, CP #### [address] [place] [address] System Administrator: Jesse Curry MD MCV (RBC) [Entitic vol] 90.3 fL Normal 82.6-102.9 [facility] Comment on above: Performed By: #### L IP, CDP, CP #### [address] [place], [facility]83 System Administrator: Jesse Curry MD Monocytes (Bld) [#/Vol] 0.58 10*3/uL Normal 0.10-1.20 [facility] Comment on above: Performed By: #### L IP, CDP, CP #### [facility] [address] [place], [facility]83 System Administrator: Jesse Curry MD Monocytes/100 WBC (Bld) 4 % Normal 3-12 [facility] Comment on above: Performed By: #### L IP, CDP, CP #### [address] [place], [place] [address] System Administrator: Jesse Curry MD Neutrophil (Seg) 88 % High 36-65 [facility] Comment on above: Performed By: #### L IP, CDP, CP #### [address] [place], [facility]83 System Administrator: Jesse Curry MD NRBC Automated 0.0 per 100 WBC Normal 0.0 [facility] Comment on above: Performed By: #### L IP, CDP, CP #### [address] [place], [facility]83 System Administrator: Jesse Curry MD Platelet mean volume (Bld) [Entitic vol] 9.9 fL Normal 8.1-13.5 [facility] Comment on above: Performed By: #### L IP, CDP, CP #### [facility] [address] [place] [address] Dr. [place], [facility]83 System Administrator: Jesse Curry MD Platelets (Bld) [#/Vol] 299 10*3/uL Normal 138-453 [facility] Comment on above: Performed By: #### L IP, CDP, CP #### [facility] [address] [place], [facility]83 System Administrator: Jesse Curry MD RBC (Bld) [#/Vol] 5.14 10*6/uL High 3.95-5.11 [facility] Comment on above: Performed By: #### L BJ BUCK, CP #### [facility] [address] [place], [place] [id number] System Administrator: Jesse Curry MD WBC (Bld) [#/Vol] 14.3 10*3/uL High 3.5-11.3 [facility] Comment on above: Performed By: #### L BJ BUCK, CP #### [facility] [address] [place] [address] System Administrator: Jesse Curry MD CT ABDOMEN PELVIS W [...] A Maldonado DO 09/22/22 Final result Normal [facility] Comp Metabolic Profon 2021 Albumin [Mass/Vol] 4.7 g/dL Normal 3.5-5.2 [facility] Comment on above: Performed By: #### L IP, CDP, CP #### [facility] [address] [place] [address] System Administrator: Jesse Curry MD Albumin/Glob Ratio 2.0 Normal 1.0-2.5 [facility] Comment on above: Performed By: #### L IP, CDP, CP #### [address] [place] [address] System Administrator: Jesse Curry MD Alkaline Phos 77 U/L Normal 35-104 [facility] Comment on above: Performed By: #### L IP, CDP, CP #### [address] [place] [address] System Administrator: Jesse Curry MD ALT [Catalytic activity/Vol] 10 U/L Normal 5-33 [facility] Comment on above: Performed By: #### L IP, CDP, CP #### [address] [place] [address] System Administrator: Jesse Curry MD Anion gap [Moles/Vol] 12 mmol/L Normal 9-17 [facility] Comment on above: Performed By: #### L IP, CDP, CP #### [address] [place] [address] System Administrator: Jesse Curry MD AST [Catalytic activity/Vol] 14 U/L Normal <32 [facility] Comment on above: Performed By: #### L IP, CDP, CP #### [facility] [address] [place], [place] [id number] System Administrator: Jesse Curry MD Bilirubin [Mass/Vol] 0.6 mg/dL Normal 0.3-1.2 [facility] Comment on above: Performed By: #### L IP, CDP, CP #### [facility] [address] [place], [place] [id number] System Administrator: Jesse Curry MD BUN/CRE Ratio 31 High 9-20 [facility] Comment on above: Performed By: #### L IP, CDP, CP #### [address] [place], [place] [id number] System Administrator: Jesse Curry MD Calcium [Mass/Vol] 9.8 mg/dL Normal 8.6-10.4 [facility] Comment on above: Performed By: #### L IP, CDP, CP #### [facility] [address] [place] [address] Dr. [place], [place] 4391983 System Administrator: Jesse Curry MD Chloride [Moles/Vol] 104 mmol/L Normal 98-107 [facility] Comment on above: Performed By: #### L IP, CDP, CP #### [facility] [address] [place] [address] Dr. [place], [place] 9031383 System Administrator: Jesse Curry MD CO2 [Moles/Vol] 22 mmol/L Normal 20-31 [facility] Comment on above: Performed By: #### L IP, CDP, CP #### [facility] [address] [place] [address] Dr. [place], [place] [id number] System Administrator: Jesse Curry MD Creatinine [Mass/Vol] 0.85 mg/dL Normal 0.50-0.90 [facility] Comment on above: Performed By: #### L IP, CDP, CP #### [facility] [address] [place] [address] Dr. [place], [place] 8073783 System Administrator: Jesse Curry MD GFR/1.73 sq M.predicted among non-blacks MDRD (S/P/Bld) [Vol rate/Area] mL/min/{1.73_m2} Normal >60 [facility] Comment on above: Result Comment: [...] #### L BJ BUCK, CP #### [address] [place] [address] System Administrator: Jesse Curry MD Glucose [Mass/Vol] 109 mg/dL High 70-99 [facility] Comment on above: Performed By: #### L BJ BUCK, CP #### [address] [place] [address] System Administrator: Jesse Curry MD Potassium [Moles/Vol] 4.0 mmol/L Normal 3.7-5.3 [facility] Comment on above: Performed By: #### L CIELO CDP, CP #### [address] [place] [address] System Administrator: Jesse Curry MD Protein [Mass/Vol] 7.1 g/dL Normal 6.4-8.3 [facility] Comment on above: Performed By: #### L CIELO CDP, CP #### [address] [place] [address] System Administrator: Jesse Curry MD Sodium [Moles/Vol] 138 mmol/L Normal 135-144 [facility] Comment on above: Performed By: #### L IP CDP, CP #### [address] [place] [address] System Administrator: Jsese Curry MD Urea nitrogen [Mass/Vol] 26 mg/dL High 6-20 [facility] Comment on above: Performed By: #### L BJ BUCK, CP #### [facility] [address] [place] [address] System Administrator: Jesse Curry MD HCG, ,Urineon 09-22 Beta HCG ( test) Ql (U) Negative Normal NEG [facility] Comment on above: Result Comment: Spec imens with hCG levels near the threshold of the test (25 mIU/mL) may give a negative or indeterminate result. In such cases, another test should be performed with a new specimen in 48-72 hours. If early is suspected clinically in this setting, correlation with quantitative serum b-hCG level is suggested. [facility] has confirmed the use of plasma for this test. This has not been cleared or approved by the U.S. Food and Drug Administration. The FDA has determined that such clearance is not necessary. Performed By: #### U HCG #### [facility] [address] [place] [address] System Administrator: Jesse Curry MD Lactic Acidon 09-22-2022 Lactate [Moles/Vol] 1.8 mmol/L Normal 0.5-2.2 [facility] Comment on above: Performed By: #### L ACTIC #### [facility] [address] [place] [address] System Administrator: Jesse Curry MD Lipaseon 09-22-2022 Lipase [Catalytic activity/Vol] 39 U/L Normal 13-60 [facility] Comment on above: Performed By: #### L BJ BUCK, CP #### [facility] [address] [place] [address] System Administrator: Jesse Curry MD UA w/Reflex Cultureon 2021 Bilirubin, SemiQt,Ur Negative Normal NEG [facility] Comment on above: Performed By: #### U MICAO, UAX #### [facility] [address] [place] [address] Dr. [place], [place] [id number] System Administrator: Jesse Curry MD Blood, Urine Negative Normal NEG [facility] Comment on above: Performed By: #### U MICAO, UAX #### [facility] [address] [place] [address] Dr. [place], [place] 7536383 System Administrator: Jesse Curry MD Clarity (U) Clear Normal CLEAR [facility] Comment on above: Performed By: #### U MICAO, UAX #### [address] [place], [place] 3282383 System Administrator: Jesse Curry MD Color (U) Yellow Normal YEL [facility] Comment on above: Performed By: #### U MICAO, UAX #### [facility] [address] [place] [address] Dr. [place], [place] 6084583 System Administrator: Jesse Curry MD Glucose Ql (U) Negative Normal NEG [facility] Comment on above: Performed By: #### U MICAO, UAX #### [address] [place], [place] 7406483 System Administrator: Jesse Curry MD Ketones Ql (U) Negative Normal NEG [facility] Comment on above: Performed By: #### U MICAO, UAX #### [facility] [address] [place] [address] Dr. [place], [place] 4229383 System Administrator: Jesse Curry MD Leukocyte esterase Test strip Ql (U) Negative Normal NEG [facility] Comment on above: Performed By: #### U MICAO, UAX #### [address] [place], [place] 6555183 System Administrator: Jesse Curry MD Nitrite,Ur Negative Normal NEG [facility] Comment on above: Performed By: #### U MICAO, UAX #### [facility] [address] [place] [address] Dr. [place], [place] 7905283 System Administrator: Jesse Curry MD PH,Ur 8.0 Normal 5.0-9.0 [facility] Comment on above: Performed By: #### U MICAO, UAX #### [facility] [address] [place] [address] Dr. [place], [place] [id number] System Administrator: Jesse Curry MD Protein Ql (U) Negative Normal NEG [facility] Comment on above: Performed By: #### U MICAO, UAX #### [address] [place], [place] 4294583 System Administrator: Jesse Curry MD Spec. [place],Ur 1.020 Normal 1.010-1.[address] [facility] Comment on above: Performed By: #### U MICAO, UAX #### [facility] [address] [place] [address] Dr. [place], [place] 6381383 System Administrator: Jesse Curry MD Urobilinogen,Ur Normal Normal NORM [facility] Comment on above: Performed By: #### U MICAO, UAX #### [address] [place], [place] 2188283 System Administrator: Jesse Curry MD Urinalysis,Microon 2 Bacteria TRACE Abnormal NONE [facility] Comment on above: Performed By: #### U MICAO, UAX #### [facility] [address] [place] [address] Dr. [place], [place] 5235683 System Administrator: Jesse Curry MD Epithelial cells LM Ql (Urine sed) 0 TO 2 Normal 0-25 [facility] Comment on above: Performed By: #### U MICAO, UAX #### [facility] [address] [place] [address] [place] [address] System Administrator: Jesse Curry MD Urine RBC's None Normal 0-2 [facility] Comment on above: Performed By: #### U MICAO, UAX #### [facility] [address] [place], [place] 2326483 System Administrator: Jesse Curry MD Urine WBC's 0 TO 2 Normal 0-5 [facility] Comment on above: Performed By: #### U DARIO, UAX #### [facility] [address] [place] [address] System Administrator: Jesse Curry MD CBC AUTO DIFFon 02-20-2022 BASO # 0.1 103/ul Normal 0.0-0.1 [facility] Comment on above: Performed By: #### C BC #### [facility] [address] [place] [address] Dr. Claire Mayes Basophils/100 WBC (Bld) 0.8 % Normal 0.2-2.0 [facility] Comment on above: Performed By: #### C BC #### [facility] [address] [place] [address] Dr. Claire Mayes EO # 0.2 103/ul Normal 0.0-0.7 [facility] Comment on above: Performed By: #### C BC #### [facility] [address] [place] [address] Dr. Claire Mayes Eosinophils/100 WBC (Bld) 0.9 % Normal 0.9-7.0 [facility] Comment on above: Performed By: #### C BC #### [facility] [address] [place] [address] Dr. Claire Mayes Erythrocyte distribution width (RBC) [Ratio] 15.0 % Normal 11.0-15.0 [facility] Comment on above: Performed By: #### C BC #### [facility] [address] [place] [address] Dr. Claire Mayes Hematocrit (Bld) [Volume fraction] 31.3 % Critically low 36.0-48.0 [facility] Comment on above: Performed By: #### C BC #### [facility] [address] [place] [address] Dr. Claire Mayes Hemoglobin (Bld) [Mass/Vol] 10.3 g/dL Critically low 12.0-16.0 [facility] Comment on above: Performed By: #### C BC #### [facility] [address] [place] [address] Dr. Claire Mayes IG # 0.21 10e3/ul Critically high 0.00-0.03 [facility] Comment on above: Performed By: #### C BC #### [facility] [address] [address] [address] Claire Mayes IG % 1.3 % Critically high 0.0-0.[address] [facility] Comment on above: Performed By: #### C BC #### [facility] [address] [place] [address] Dr. Claire Mayes LYMPH # 2.1 103/ul Normal 1.2-3.8 [facility] Comment on above: Performed By: #### C BC #### [facility] [address] [place] [address] Dr. Claire Mayes Lymphocytes/100 WBC (Bld) 12.6 % Critically low 20.5-60.0 [facility] Comment on above: Performed By: #### C BC #### [facility] [address] [place] [address] Dr. Claire Mayes MANUAL DIFF REQ NO Normal [facility] Comment on above: Performed By: #### C BC #### [facility] [address] [place] [address] Dr. Claire Mayes MCH (RBC) [Entitic mass] 29.8 pg Normal 26.7-34.0 [facility] Comment on above: Performed By: #### C BC #### [facility] [address] [place] [address] Dr. Claire Mayes MCHC (RBC) [Mass/Vol] 32.9 g/dL Normal 29.9-35.2 [facility] Comment on above: Performed By: #### C BC #### [facility] [address] [place] [address] Dr. Claire Mayes MCV (RBC) [Entitic vol] 90.5 fL Normal 81.0-99.0 [facility] Comment on above: Performed By: #### C BC #### [facility] [address] [place] [address] Dr. Claire Mayes MONO # 0.8 103/ul Normal 0.3-0.8 [facility] Comment on above: Performed By: #### C BC #### [facility] [address] [place] [address] Dr. Claire Mayes Monocytes/100 WBC (Bld) 5.1 % Normal 1.7-12.0 [facility] Comment on above: Performed By: #### C BC #### [facility] [address] [place] [address] Dr. Claire Mayes NEUT # 13.2 103/ul Critically high 1.4-6.5 [facility] Comment on above: Performed By: #### C BC #### [facility] [address] [place] [address] Dr. Claire Mayes Neutrophils/100 WBC (Bld) 79.3 % Critically high 43.0-75.0 [facility] Comment on above: Performed By: #### C BC #### [facility] [address] [place] [address] Dr. Claire Mayes Platelet mean volume (Bld) [Entitic vol] 10.4 fL Normal 9.5-13.5 [facility] Comment on above: Performed By: #### C BC #### [facility] [address] [place] [address] Dr. Claire Mayes PLT 233 103/ul Normal 150-450 [facility] Comment on above: Performed By: #### C BC #### [facility] [address] [place] [address] Dr. Claire Mayes RBC 3.46 106/ul Critically low 4.20-5.40 [facility] Comment on above: Performed By: #### C BC #### [facility] [address] [place] [address] Dr. Claire Mayes WBC 16.6 103/ul Critically high 4.0-11.0 [facility] Comment on above: Performed By: #### C BC #### [facility] [address] [address] [address] Claire Mayes CBC AUTO DIFFon 02-18-2022 BASO # 0.1 103/ul Normal 0.0-0.1 [facility] Comment on above: Performed By: #### C BC #### [facility] [address] [address] [address] Claire Mayes Basophils/100 WBC (Bld) 0.7 % Normal 0.2-2.0 [facility] Comment on above: Performed By: #### C BC #### [facility] [address] [place] [address] Dr. Claire Mayes EO # 0.2 103/ul Normal 0.0-0.7 [facility] Comment on above: Performed By: #### C BC #### [facility] [address] [place] [address] Dr. Claire Mayes Eosinophils/100 WBC (Bld) 1.2 % Normal 0.9-7.0 [facility] Comment on above: Performed By: #### C BC #### [facility] [address] [place] [address] Dr. Claire Mayes Erythrocyte distribution width (RBC) [Ratio] 15.0 % Normal 11.0-15.0 [facility] Comment on above: Performed By: #### C BC #### [facility] [address] [place] [address] Dr. Claire Mayes Hematocrit (Bld) [Volume fraction] 35.1 % Critically low 36.0-48.0 [facility] Comment on above: Performed By: #### C BC #### [facility] [address] [place] [address] Dr. Claire Mayes Hemoglobin (Bld) [Mass/Vol] 11.8 g/dL Critically low 12.0-16.0 [facility] Comment on above: Performed By: #### C BC #### [facility] [address] [place] [address] Dr. Claire Mayes IG # 0.30 10e3/ul Critically high 0.00-0.03 [facility] Comment on above: Performed By: #### C BC #### [facility] [address] [place] [address] Dr. Claire Mayes IG % 1.9 % Critically high 0.0-0.[address] [facility] Comment on above: Performed By: #### C BC #### [facility] [address] [place] [address] Dr. Claire Mayes LYMPH # 2.9 103/ul Normal 1.2-3.8 [facility] Comment on above: Performed By: #### C BC #### [facility] [address] [place] [address] Dr. Claire Mayes Lymphocytes/100 WBC (Bld) 18.5 % Critically low 20.5-60.0 [facility] Comment on above: Performed By: #### C BC #### [facility] [address] [place] [address] Dr. Claire Mayes MANUAL DIFF REQ NO Normal [facility] Comment on above: Performed By: #### C BC #### [facility] [address] [place] [address] Dr. Claire Mayes MCH (RBC) [Entitic mass] 30.2 pg Normal 26.7-34.0 [facility] Comment on above: Performed By: #### C BC #### [facility] [address] [place] [address] Dr. Claire Mayes MCHC (RBC) [Mass/Vol] 33.6 g/dL Normal 29.9-35.2 [facility] Comment on above: Performed By: #### C BC #### [facility] [address] [place] [address] Dr. Claire Mayes MCV (RBC) [Entitic vol] 89.8 fL Normal 81.0-99.0 [facility] Comment on above: Performed By: #### C BC #### [facility] [address] [place] [address] Dr. Claire Mayes MONO # 0.7 103/ul Normal 0.3-0.8 [facility] Comment on above: Performed By: #### C BC #### [facility] [address] [address] [address] Claire Mayes Monocytes/100 WBC (Bld) 4.7 % Normal 1.7-12.0 [facility] Comment on above: Performed By: #### C BC #### [facility] [address] [address] [address] Claire Mayes NEUT # 11.3 103/ul Critically high 1.4-6.5 [facility] Comment on above: Performed By: #### C BC #### [facility] [address] [address] [address] Claire Mayes Neutrophils/100 WBC (Bld) 73.0 % Normal 43.0-75.0 [facility] Comment on above: Performed By: #### C BC #### [facility] [address] [place] [address] Dr. Claire Mayes Platelet mean volume (Bld) [Entitic vol] 10.8 fL Normal 9.5-13.5 [facility] Comment on above: Performed By: #### C BC #### [facility] [address] [address] [address] Claire Mayes PLT 233 103/ul Normal 150-450 [facility] Comment on above: Performed By: #### C BC #### [facility] [address] [place] [address] Dr. Claire Mayes RBC 3.91 106/ul Critically low 4.20-5.40 [facility] Comment on above: Performed By: #### C BC #### [facility] [address] [address] [address] Claire Mayes WBC 15.5 103/ul Critically high 4.0-11.0 [facility] Comment on above: Performed By: #### C BC #### [facility] [address] [address] [address] Claire Mayes Covid-19 PCR ([facility])on SARS-CoV-2 (COVID-19) RNA FERDINAND+probe Ql (Unsp spec) Not detected Normal NOT DETECTED [facility] Comment on above: Result Comment: When [...] for this test is supported by the Triage Licensed Practical Nurse of Health and Human Service's declaration that [...] By: #### C VDTBH #### [facility] [address] [place] [address] Dr. Claire Mayes DRUG SCREEN RAPID (URINE)on 02-18-2022 AMP Negative Normal NEGATIVE [facility] Comment on above: Performed By: #### D RUGRPD #### [facility] [address] [place] [address] Dr. Claire Mayes BAR Negative Normal NEGATIVE [facility] Comment on above: Performed By: #### D RUGRPD #### [facility] [address] [place] [address] Dr. Claire Mayes BUP Negative Normal NEGATIVE [facility] Comment on above: Performed By: #### D RUGRPD #### [facility] [address] [place] [address] Dr. Claire Mayes BZO Negative Normal NEGATIVE [facility] Comment on above: Performed By: #### D RUGRPD #### [facility] [address] [place] [address] Dr. Claire Mayes KIT Negative Normal NEGATIVE [facility] Comment on above: Performed By: #### D RUGRPD #### [facility] [address] [place] [address] Dr. Claire Mayes CUT-OFFS SEE BELOW Normal [facility] Comment on above: Result Comment: AMP (Amphetamine): [...] By: #### D RUGRPD #### [facility] [address] [place] [address] Dr. Claire Mayes DRUG CUT HEADER DRUG CLASS TEST SYST EM CUT-OFF CONCENTRATIONS ARE FOLLOWS: Normal [facility] Comment on above: Performed By: #### D RUGRPD #### [facility] [address] [place] [address] Dr. Claire Mayes mAMP Negative Normal NEGATIVE [facility] Comment on above: Performed By: #### D RUGRPD #### [facility] [address] [place] [address] Dr. Claire Mayes MTD Negative Normal NEGATIVE [facility] Comment on above: Performed By: #### D RUGRPD #### [facility] [address] [place] [address] Dr. Claire Mayes OPI Negative Normal NEGATIVE [facility] Comment on above: Performed By: #### D RUGRPD #### [facility] [address] [place] [address] Dr. Claire Mayes OXY Negative Normal NEGATIVE [facility] Comment on above: Performed By: #### D RUGRPD #### [facility] [address] [place] [address] Dr. Claire Mayes PCP Negative Normal NEGATIVE [facility] Comment on above: Performed By: #### D RUGRPD #### [facility] [address] [address] [address] Claire Mayes PPX Negative Normal NEGATIVE [facility] Comment on above: Performed By: #### D RUGRPD #### [facility] [address] [address] [address] Claire Mayes TCA Negative Normal NEGATIVE [facility] Comment on above: Performed By: #### D RUGRPD #### [facility] [address] [place] [address] Dr. Claire Mayes THC Negative Normal NEGATIVE [facility] Comment on above: Performed By: #### D RUGRPD #### [facility] [address] [place] [address] Dr. Claire Mayes TYPE AND SCREENon 02-18-2022 TYPE AND SCREEN Negative Normal [facility] Comment on above: Performed By: #### T NS #### [facility] [address] [place] [address] Dr. Claire Mayes US PREG BIOPHY W [...] by: JESSE THOMAS Date: 2022-02-17 14:27 Normal [facility] US PREG BIOPHY W NON STRESSo n [...] by: BLU FELIPE Date: 2022-02-10 16:40 Normal [facility] GROUP B STREP CULTUREon 01-14 S. agalactiae Ag Ql (Unsp spec) Culture Observations: Beta Strep called to Belgica Lange at office 02/04/22 @[address] [place] [address] Isolate 1 Streptococcus agalactiae Heavy growth of ORGANISM 1 Streptococcus agalactiae ANTIBIOTIC M.I.C RX STATUS Benzylpenicillin <=0.06 S F Ampicillin <=0.25 S F Cefotaxime <=0.12 S F Ceftriaxone <=0.12 S F Levofloxacin 0.5 S F Erythromycin 2 R F Clindamycin <=0.25 S F Linezolid <=2 S F Vancomycin 0.5 S F Tetracycline >=16 R F Normal [facility] Comment on above: Performed By: #### G BSCX #### [facility] [address] [place] [address] Dr. 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 Provider Impressions 30 year-old [...] ] Imaging: Saline US, can do at [place] [x ] Vitamin D, TSH, prolactin [ [...] HSG - images reviewed from [facility] 08/2018 Uterine Cavity Evaluation: Normal uterine [...] Peak E2 1871--> IM P4--> successful IUP [employer] Hx: LMP: 05/29/21 Menstrual cycles: Have been fairly regular for the past 3 months; 30-35 days Pap smear: 2018, up to date Mammogram: None PMH/Surg Hx/Social Hx: See below Hx of Clotting disorders: Yes- Protein S deficiency Currently on Lovenox 40 mg daily Was on Lovenox 60 mg daily prior to Needs to be on therapeutic dosing when Genetic Screening Hx: [employer] foresight screen negative Partner History: Franklin Ashley 04/09/1990 SA in past year: 2.8 cc 125 mil/mL 69% motility MGS=431 million (recent IUI sample) Morph from original SA was 2.8% Active Problems Problems 16 weeks gest (more content not included)... Normal [employer] CBC AND DIFFERENTIALon 08-06 % AUTOMATED IMMATURE GRAN 0.3 % Normal 0.0 - 0.9 [facility] Comment on above: Result Comment: Graciela ture Granulocyte Count (IG) includes promyelocytes, myelocytes and metamyelocytes but does not include bands. Percent differential counts (%) should be interpreted in the context of the absolute cell counts (cells/L). Performed By: #### C BCDF #### [address] [place] [address] Basophils (Bld) [#/Vol] 0.09 10*3/uL Normal 0.00 - 0.10 [facility] Comment on above: Performed By: #### C BCDF #### [address] [place] [address] Basophils/100 WBC (Bld) 0.9 % Normal 0.0 - 2.0 [facility] Comment on above: Performed By: #### C BCDF #### [address] [place] [address] Eosinophils (Bld) [#/Vol] 0.23 10*3/uL Normal 0.00 - 0.70 [facility] Comment on above: Performed By: #### C BCDF #### [address] [place] [address] Eosinophils/100 WBC (Bld) 2.4 % Normal 0.0 - 6.0 [facility] Comment on above: Performed By: #### C BCDF #### [address] [place] [address] Erythrocyte distribution width (RBC) [Ratio] 14.3 % Normal 11.5 - 14.5 [facility] Comment on above: Performed By: #### C BCDF #### [address] [place] [address] Hematocrit (Bld) [Volume fraction] 40.4 % Normal 36.0 - 46.0 [facility] Comment on above: Performed By: #### C BCDF #### [address] [place] [address] Hemoglobin (Bld) [Mass/Vol] 12.9 g/dL Normal 12.0 - 16.0 [facility] Comment on above: Performed By: #### C BCDF #### [address] [place] [address] Lymphocytes (Bld) [#/Vol] 2.44 10*3/uL Normal 1.20 - 4.80 [facility] Comment on above: Performed By: #### C BCDF #### [address] [place] [address] Lymphocytes/100 WBC (Bld) 25.7 % Normal 13.0 - 44.0 [facility] Comment on above: Performed By: #### C BCDF #### [address] [place] [address] MCHC (RBC) [Mass/Vol] 31.9 g/dL Low 32.0 - 36.0 [facility] Comment on above: Performed By: #### C BCDF #### [address] [place] [address] MCV (RBC) [Entitic vol] 88 fL Normal 80 - 100 [facility] Comment on above: Performed By: #### C BCDF #### [address] [place] [address] Monocytes (Bld) [#/Vol] 0.55 10*3/uL Normal 0.10 - 1.00 [facility] Comment on above: Performed By: #### C BCDF #### [address] [place] [address] Monocytes/100 WBC (Bld) 5.8 % Normal 2.0 - 10.0 [facility] Comment on above: Performed By: #### C BCDF #### [address] [place] [address] Neutrophils (Bld) [#/Vol] 6.15 10*3/uL Normal 1.20 - 7.70 [facility] Comment on above: Performed By: #### C BCDF #### [address] [place] [address] Neutrophils/100 WBC (Bld) 64.9 % Normal 40.0 - 80.0 [facility] Comment on above: Performed By: #### C BCDF #### [address] [place] [address] Platelets (Bld) [#/Vol] 410 10*3/uL Normal 150 - 450 [facility] Comment on above: Performed By: #### C BCDF #### [address] [place] [address] RBC (Bld) [#/Vol] 4.58 x10E12/L Normal 4.00 - 5.20 [facility] Comment on above: Performed By: #### C BCDF #### [address] [place] [address] WBC (Bld) [#/Vol] 9.5 10*3/uL Normal 4.4 - 11.3 [facility] Comment on above: Performed By: #### C BCDF #### [address] [place] [address] [employer] - Visiton 08-06-2020 [employer] - Visit Chief Complaint The patient is [...] with LMWH and 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 Reports her asthma is stable. [...] or homicidal ideation Vitals Vital Signs Recorded: [id number] 01:08PM Heart Rate62 Gxzsusnx075 Dntmwgbot33 Height5 ft 2 in Fpkwjz181 lb BMI Gvkrohuhkw13.28 BSA Calculated1.79 Tobacco Useb) No Fall Screeninga) [...] ongoing well-woman care with her current local [employer]. She has Hematology follow-up today following our [...] WBC (Bld) 0.5 % 0.0 - 2.0 RO-YKGCG-Bospb[address] Work Phone: Eosinophils (Bld) [#/Vol] 0.24 {x10E9/L} See Below AR-JXDPP-Pbvmp[address] Work Phone: Comment on above: Reference Range: 0.0 0 - 0.70 Eosinophils/100 WBC (Bld) 1.1 % 0.0 - 6.0 HQ-YOIYO-Nksvb[address] Work Phone: Erythrocyte distribution width (RBC) [Ratio] 15.0 % above high threshold See Below HY-HRWBA-Wyrik[address] Work Phone: Comment on above: Reference Range: 11. 5 - 14.5 Hematocrit (Bld) [Volume fraction] 30.0 % below low threshold See Below RW-NGFDZ-Ehrzk[address] Work Phone: Comment on above: Reference Range: 36. 0 - 46.0 Hemoglobin (Bld) [Mass/Vol] 9.8 g/dL below low threshold See Below AI-FFWFS-Cntni[address] Work Phone: Comment on above: Reference Range: 12. 0 - 16.0 Lymphocytes (Bld) [#/Vol] 2.25 {x10E9/L} See Below EJ-TYLLK-Wiwvb wn 2nd Fl Work Phone: Comment on above: Reference Range: 1.2 0 - 4.80 Lymphocytes/100 WBC (Bld) 10.4 % See Below YK-LHDNP-Itxty wn 2nd Fl Work Phone: Comment on above: Reference Range: 13. 0 - 44.0 MCHC (RBC) [Mass/Vol] 32.7 g/dL See Below FG-PVCMW-Tpmum wn 2nd Fl Work Phone: Comment on above: Reference Range: 32. 0 - 36.0 MCV (RBC) [Entitic vol] 91 fL 80 - 100 IR-UYOLA-Rbosv wn 2nd Fl Work Phone: Monocytes (Bld) [#/Vol] 0.84 {x10E9/L} See Below IR-POMRR-Wounp wn 2nd Fl Work Phone: Comment on above: Reference Range: 0.1 0 - 1.00 Monocytes/100 WBC (Bld) 3.9 % 2.0 - 10.0 FJ-OPBAN-Rsamv wn 2nd Fl Work Phone: Neutrophils/100 WBC (Bld) 82.7 % See Below SV-FDWPV-Syfyu wn 2nd Fl Work Phone: Comment on above: Reference Range: 40. 0 - 80.0 Platelets (Bld) [#/Vol] 225 {x10E9/L} 150 - 450 TX-VKYSP-Unnpi wn 2nd Fl Work Phone: RBC (Bld) [#/Vol] 3.31 {x10E12/L} below low threshold See Below JK-WRTVH-Buyoi wn 2nd Fl Work Phone: Comment on above: Reference Range: 4.0 0 - 5.20 WBC (Bld) [#/Vol] 0.0 {/100_WBC} 0.0-0.0 MG- OBGYN-[facility] 2nd Fl Work Phone: WBC (Bld) [#/Vol] 21.6 {x10E9/L} above high threshold 4.4 - 11.3 EH-SQRZQ-Aoqeb[address] Work Phone: Complete Blood Count + Differential 0.11 {x10E9/L} above high threshold See Below FI-TVGQQ-Ukxcv[address] Work Phone: Comment on above: Reference Range: 0.0 0 - 0.10 Complete Blood Count + Differential 1.4 % above high threshold 0.0 - 0.9 LR-CCYEL-Nkevv[address] Work Phone: Comment on above: Immature Granulocyte Count (IG) includes promyelocytes, myelocytes and metamyelocytes but does not include bands. Percent differential counts (%) should be interpreted in the context of the absolute cell counts (cells/L). Complete Blood Count + Differential 17.85 {x10E9/L} above high threshold See Below KT-UKFPU-Idnws[address] Work Phone: Comment on above: Reference Range: 1.2 0 - 7.70 Hematologyon 06-26-2020 Hematocrit (Bld) [Volume fraction] 30.5 % below low threshold See Below GJ-XHXNJ-Nlawd[address] Work Phone: Comment on above: Reference Range: 36. 0 - 46.0 Hemoglobin (Bld) [Mass/Vol] 10.7 g/dL below low threshold See Below CT-ATOGR-Nusys[address] Work Phone: Comment on above: Reference Range: 12. 0 - 16.0 MCV (RBC) [Entitic vol] 84 fL 80 - 100 VK-IWSDX-Dfboq[address] Work Phone: Platelets (Bld) [#/Vol] 258 {x10E9/L} 150 - 450 FW-MAJSO-Ssgnm[address] Work Phone: RBC (Bld) [#/Vol] 3.62 {x10E12/L} below low threshold See Below GX-YOLGO-Flulp wn 2nd Fl Work Phone: Comment on above: Reference Range: 4.0 0 - 5.20 WBC (Bld) [#/Vol] 0.0 {/100_WBC} 0.0-0.0 MG- OBGYN-Midto 2nd Fl Work Phone: WBC (Bld) [#/Vol] 35.7 {x10E9/L} above high threshold 4.4 - 11.3 QT-VLNPV-Fwuew wn 2nd Fl Work Phone: Otheron 06-26-2020 Erythrocyte distribution width (RBC) [Ratio] 14.6 % above high threshold See Below SV-AXZMM-Zopvw wn 2nd Fl Work Phone: Comment on above: Reference Range: 11. 5 - 14.5 MCHC (RBC) [Mass/Vol] 35.1 g/dL See Below ZV-ZMHJG-Hdxyy 2nd Fl Work Phone: Comment on above: [...] 3.5 cm, located 1.0 cm from themargin. Mail Opener sections are submitted in 5 cassettes.AXQ/LMPSummary of Cassettes:Specimen Label SiteA 1 umbilical cord sections 2 membrane rolls 3 placental parenchyma, umbilical cord insertion site 4 placental parenchyma 5 placental parenchyma, lesionaxq/06/26/2020 DQ-ZPHGV-Mzxdu wn 2nd Fl Work Phone: Coronavirus 2019 RNA by PCR, Symptomaticon 06-25-2020 Coronavirus 2019 RNA by PCR, Symptomatic NOT DETECTED See Below DX-MOSLC-Weimg 2nd Ar Work Phone: Comment on above: SOURCE: Nasal, [...] this test method. Fact sheet for providers: www.fda.gov/media/976891/downloadFact sheet for patients: www.fda.gov/media/899608/downloadThis test has received FDA Emergency Use Authorization (EUA) and has been verified by [facility] ([facility]). This test is only authorized for the duration of time that circumstances exist to justify the authorization of the emergency use of in vitro diagnostic tests for the detection of SARS-CoV-2 virus and/or diagnosis of COVID-19 infection under section 564(b)(1) of the Act, 21 U.S.C. 360bbb-3(b)(1), unless the authorization is terminated or revoked sooner. [facility] is certified under CLIA-88 as qualified to perform high complexity testing. Testing is performed in the [facility] laboratories located at [address] [place] [address]. Hematologyon 06-25-2020 ABO group Nom (Bld) A [address] Work Phone: Blood group antibody screen Ql Negative [address] Work Phone: Hematocrit (Bld) [Volume fraction] 34.7 % below low threshold See Below [address] Work Phone: Comment on above: Reference Range: 36. 0 - 46.0 Hemoglobin (Bld) [Mass/Vol] 11.6 g/dL below low threshold See Below PO-SSMMM-Fiitz[address] Work Phone: Comment on above: Reference Range: 12. 0 - 16.0 MCV (RBC) [Entitic vol] 90 fL 80 - 100 VB-QCIWZ-Kquhi[address] Work Phone: Platelets (Bld) [#/Vol] 268 {x10E9/L} 150 - 450 FL-GUOGN-Wsxrt[address] Work Phone: RBC (Bld) [#/Vol] 3.85 {x10E12/L} below low threshold See Below HQ-CUVBF-Nzcxt[address] Work Phone: Comment on above: Reference Range: 4.0 0 - 5.20 Rh immune globulin screen (Bld) [Interp] Positive ZW-HZQFF-Gakzq[address] Work Phone: WBC (Bld) [#/Vol] 0.0 {/100_WBC} 0.0-0.0 [facility] [place] OBGYN[address] Work Phone: WBC (Bld) [#/Vol] 15.5 {x10E9/L} above high threshold 4.4 - 11.3 HX-IGZHU-Dhkja[address] Work Phone: Otheron 06-25-2020 Erythrocyte distribution width (RBC) [Ratio] 14.4 % See Below TH-ISWBW-Vvxir[address] Work Phone: Comment on above: Reference Range: 11. 5 - 14.5 MCHC (RBC) [Mass/Vol] 33.4 g/dL See Below [address] Work Phone: Comment on above: Reference Range: 32. 0 - 36.0 SYPHILIS SCREENING WITH REFL EXon 06-25-2020 T. pallidum IgG+IgM IA Ql (S) NONREACTIVE See Below [address] Work Phone: Comment on above: SOURCE: Reference Ra nge: NONREACTIVENo significant level of Treponema pallidum antibody detected. Repeat testing in 2 to 4 weeks may be considered if early infection or incubating syphilis infection is suspected. Imm/Pathon 06-07-2020 Bacteria identified Aer cx Nom (Genital specimen) PATIENT: KIARA ASHLEY LOCATION: [facility] [place] BILL#: [id number] : 89 AGE: SEX: F ORDERED BY: PARAS GUEVARA: VAGINAL COLLECTED: 06/07/20 09:36ANTIBIOTICS AT [place].: RECEIVED : 06/08/20 07:27SITE: VAGINAL R E S U L T S GROUP B STREP SCREEN PRELIM 06/09/20 08:35 CULTURE IN PROGRESS. WA-IXNIE-VKF [address] [place] Work Phone: Bacteria identified Aer cx Nom (Genital specimen) PATIENT: KIARA ASHLEY [place] [facility] [place] BILL#: [id number] : 89 AGE: SEX: F ORDERED BY: PARAS GUEVARA: VAGINAL COLLECTED: 06/07/20 09:36ANTIBIOTICS AT [place].: RECEIVED : 06/08/20 07:27SITE: VAGINAL R E S U L T S GROUP B STREP SCREEN FINAL 06/10/20 11:54 NEGATIVE FOR GROUP B BETA STREP. AF-CUFSZ-Kkabh wn 2nd Fl Work Phone: Otheron 06-07-2020 [...] growth-No malformations were identified on a limited survey-[facility] 06/22 The patient is aware of [...] signed by: RILEY TREVIÑO 06/07/20 09:33 Normal YH-SACFA-DIH [address] [place] Work Phone: Comment on above: ORDER REVISED TO A O B FOLLOW UP OR REPEAT SCAN BY RADIOLOGIST; Original Order Number: [id number] CBC AND DIFFERENTIALon 04-24 % AUTOMATED IMMATURE GRAN 1.9 % High 0.0 - 0.9 [facility] [place] on above: Result Comment: Graciela ture Granulocyte Count (IG) includes promyelocytes, myelocytes and metamyelocytes but does not include bands. Percent differential counts (%) should be interpreted in the context of the absolute cell counts (cells/L). Performed By: #### C BCDF #### [address] [place] [address] Basophils (Bld) [#/Vol] 0.08 10*3/uL Normal 0.00 - 0.10 [facility] [place] Comment on above: Performed By: #### C BCDF #### [address] [place] [address] Basophils/100 WBC (Bld) 0.5 % Normal 0.0 - 2.0 [facility] [place] Comment on above: Performed By: #### C BCDF #### [address] [place] [address] Eosinophils (Bld) [#/Vol] 0.22 10*3/uL Normal 0.00 - 0.70 [facility] [place] Comment on above: Performed By: #### C BCDF #### [address] [place] [address] Eosinophils/100 WBC (Bld) 1.5 % Normal 0.0 - 6.0 [facility] [place] Comment on above: Performed By: #### C BCDF #### [address] [place] [address] Erythrocyte distribution width (RBC) [Ratio] 14.0 % Normal 11.5 - 14.5 [facility] [place] Comment on above: Performed By: #### C BCDF #### [address] [place] [address] Hematocrit (Bld) [Volume fraction] 35.6 % Low 36.0 - 46.0 [facility] [place] Comment on above: Performed By: #### C BCDF #### [address] [place] [address] Hemoglobin (Bld) [Mass/Vol] 11.8 g/dL Low 12.0 - 16.0 [facility] [place] Comment on above: Performed By: #### C BCDF #### [address] [place] [address] Lymphocytes (Bld) [#/Vol] 2.38 10*3/uL Normal 1.20 - 4.80 [facility] [place] Comment on above: Performed By: #### C BCDF #### [address] [place] [address] Lymphocytes/100 WBC (Bld) 16.0 % Normal 13.0 - 44.0 [facility] [place] Comment on above: Performed By: #### C BCDF #### [address] [place] [address] MCHC (RBC) [Mass/Vol] 33.1 g/dL Normal 32.0 - 36.0 [facility] [place] Comment on above: Performed By: #### C BCDF #### [address] [place] [address] MCV (RBC) [Entitic vol] 92 fL Normal 80 - 100 [facility] [place] Comment on above: Performed By: #### C BCDF #### [address] [place] [address] Monocytes (Bld) [#/Vol] 0.74 10*3/uL Normal 0.10 - 1.00 [facility] [place] Comment on above: Performed By: #### C BCDF #### [address] [place] [address] Monocytes/100 WBC (Bld) 5.0 % Normal 2.0 - 10.0 [facility] [place] Comment on above: Performed By: #### C BCDF #### [address] [place] [address] Neutrophils (Bld) [#/Vol] 11.17 10*3/uL High 1.20 - 7.70 [facility] [place] Comment on above: Performed By: #### C BCDF #### [address] [place] [address] Neutrophils/100 WBC (Bld) 75.1 % Normal 40.0 - 80.0 [facility] [place] Comment on above: Performed By: #### C BCDF #### [address] [place] [address] Platelets (Bld) [#/Vol] 285 10*3/uL Normal 150 - 450 [facility] [place] Comment on above: Performed By: #### C BCDF #### [address] [place] [address] RBC (Bld) [#/Vol] 3.89 x10E12/L Low 4.00 - 5.20 [facility] [place] Comment on above: Performed By: #### C BCDF #### [address] [place] [address] WBC (Bld) [#/Vol] 14.9 10*3/uL High 4.4 - 11.3 [facility] [place] Comment on above: Performed By: #### C BCDF #### [address] [place] [address] COMPREHENSIVE PANELon 2019 ALP [Catalytic activity/Vol] 79 U/L Normal 33 - 110 [facility] [place] Comment on above: Performed By: #### C MP #### [address] [place] [address] [address] ALT [Catalytic activity/Vol] 7 U/L Normal 7 - 45 [facility] [place] Comment on above: Result Comment: Melida ents treated with Sulfasalazine may generate falsely decreased results for ALT. Performed By: #### C MP #### [address] [place] [address] [address] AST [Catalytic activity/Vol] 13 U/L Normal 9 - 39 [facility] [place] Comment on above: Performed By: #### C MP #### [address] [place] [address] [place] [address] Bilirubin [Mass/Vol] 0.3 mg/dL Normal 0.0 - 1.2 [facility] [place] Comment on above: Performed By: #### C MP #### [address] [place] [address] [place] [address] Protein [Mass/Vol] 5.9 g/dL Low 6.4 - 8.2 [facility] [place] Comment on above: Performed By: #### C MP #### [address] [place] [address] [place] [address] Anion gap [Moles/Vol] 12 mmol/L Normal 10 - 20 [facility] [place] Comment on above: Performed By: #### C MP #### [address] [place] [address] [place] [address] Chloride [Moles/Vol] 106 mmol/L Normal 98 - 107 [facility] [place] Comment on above: Performed By: #### C MP #### [address] [place] [address] [place] [address] Potassium [Moles/Vol] 3.7 mmol/L Normal 3.5 - 5.3 [facility] [place] Comment on above: Performed By: #### C MP #### [address] [place] [address] [place] [address] Sodium [Moles/Vol] 137 mmol/L Normal 136 - 145 [facility] [place] Comment on above: Performed By: #### C MP #### [address] [place] [address] [place] [address] Calcium [Mass/Vol] 9.2 mg/dL Normal 8.6 - 10.3 [facility] [place] Comment on above: Performed By: #### C MP #### [address] [place] [address] [place] [address] Glucose [Mass/Vol] 95 mg/dL Normal 74 - 99 [facility] [place] Comment on above: Performed By: #### C MP #### [address] [place] [address] [place] [address] Urea nitrogen [Mass/Vol] 7 mg/dL Normal 6 - 23 [facility] [place] Comment on above: Performed By: #### C MP #### [address] [place] [address] [place] [address] Albumin [Mass/Vol] 3.4 g/dL Normal 3.4 - 5.0 [facility] [place] Comment on above: Performed By: #### C MP #### [address] [place] [address] [place] [address] Creatinine [Mass/Vol] 0.70 mg/dL Normal 0.50 - 1.05 [facility] [place] Comment on above: Performed By: #### C MP #### [address] [place] [address] [place] [address] GFR- AM. >60 Normal >60 [facility] [place] Comment on above: Result Comment: CALC ULATIONS OF ESTIMATED GFR ARE PERFORMED USING THE MDRD STUDY EQUATION FOR THE IDMS-TRACEABLE CREATININE METHODS. CLIN CHEM 2007;53:766-72 Performed By: #### C MP #### [address] [place] [address] [place] [address] GFR-NON AM. >60 Normal >60 [facility] [place] Comment on above: Performed By: #### C MP #### [address] [place] [address] [place] [address] HCO3 (Bld) [Moles/Vol] 23 mmol/L Normal 21 - 32 [facility] [place] Comment on above: Performed By: #### C MP #### [address] [place] [address] [place] [address] FERRITINon 04-24-2020 Ferritin [Mass/Vol] 8 ug/L Normal 8 - 150 [facility] [place] Comment on above: Performed By: #### F ERRI #### [address] [place] [address] IRON + TIBCon 04-24-2020 % SATURATION 14 % Low 25 - 45 [facility] [place] Comment on above: Performed By: #### I RONT #### [address] [place] [address] Iron [Mass/Vol] 65 ug/dL Normal 35 - 150 [facility] [place] Comment on above: Performed By: #### I RONT #### [address] [place] [address] TIBC 449 ug/dL High 240 - 445 [facility] [place] Comment on above: Performed By: #### I RONT #### [address] [place] [address] Complete Blood Count + Diffe rentialon 12-25-2019 Basophils/100 WBC (Bld) 1.0 % 0.0 - 2.0 KJ-DGVWI-IQS [address] [place] Work Phone: Eosinophils (Bld) [#/Vol] 0.37 {x10E9/L} See Below UE-GLEOI-PJM [address] [place] Work Phone: Comment on above: Reference Range: 0.0 0 - 0.70 Eosinophils/100 WBC (Bld) 3.0 % 0.0 - 6.0 DH-NTOWO-TOF [address] [place] Work Phone: Erythrocyte distribution width (RBC) [Ratio] 13.4 % See Below ZM-UDFQL-GWV [address] [place] Work Phone: Comment on above: Reference Range: 11. 5 - 14.5 Hematocrit (Bld) [Volume fraction] 41.8 % See Below KN-QZNHS-AYT [address] [place] Work Phone: Comment on above: Reference Range: 36. 0 - 46.0 Hemoglobin (Bld) [Mass/Vol] 13.6 g/dL See Below OU-QARRR-XJR [address] [place] Work Phone: Comment on above: Reference Range: 12. 0 - 16.0 Lymphocytes (Bld) [#/Vol] 2.52 {x10E9/L} See Below HH-WWDKU-RPV [address] [place] Work Phone: Comment on above: Reference Range: 1.2 0 - 4.80 Lymphocytes/100 WBC (Bld) 20.2 % See Below KE-QTTKZ-CHO [address] [place] Work Phone: Comment on above: Reference Range: 13. 0 - 44.0 MCHC (RBC) [Mass/Vol] 32.5 g/dL See Below AS-WZBYK-WYG [address] [place] Work Phone: Comment on above: Reference Range: 32. 0 - 36.0 MCV (RBC) [Entitic vol] 95 fL 80 - 100 PV-ZMGPG-AXI [address] [place] Work Phone: Monocytes (Bld) [#/Vol] 0.58 {x10E9/L} See Below BL-FXKYK-LEZ [address] [place] Work Phone: Comment on above: Reference Range: 0.1 0 - 1.00 Monocytes/100 WBC (Bld) 4.6 % 2.0 - 10.0 LY-YZDME-QGE [address] [place] Work Phone: Neutrophils/100 WBC (Bld) 70.6 % See Below GK-VTAOA-GVF [address] [place] Work Phone: Comment on above: Reference Range: 40. 0 - 80.0 Platelets (Bld) [#/Vol] 372 {x10E9/L} 150 - 450 BE-RBJHV-PAH [address] [place] Work Phone: RBC (Bld) [#/Vol] 4.40 {x10E12/L} See Below MG -OBGYN-MAC [address] [place] Work Phone: Comment on above: Reference Range: 4.0 0 - 5.20 WBC (Bld) [#/Vol] 0.0 {/100_WBC} 0.0-0.0 MG- OBGYN-MAC [address] [place] Work Phone: WBC (Bld) [#/Vol] 12.7 {x10E9/L} above high threshold 4.4 - 11.3 RH-RZQDX-NIH [address] [place] Work Phone: Comment on above: SOURCE: Complete Blood Count + Differential 8.81 {x10E9/L} above high threshold See Below WX-MFPFI-XWO [address] [place] Work Phone: Comment on above: Reference Range: 1.2 0 - 7.70 Complete Blood Count + Differential 0.6 % 0.0 - 0.9 KC-JSBJD-RPO [address] [place] Work Phone: Comment on above: Percent differential counts (%) should be interpreted in the context of the absolute cell counts (cells/L). Complete Blood Count + Differential 0.13 {x10E9/L} above high threshold See Below LZ-SRHNE-MAW [address] [place] Work Phone: Comment on above: Reference Range: 0.0 0 - 0.10 Cult, Urineon 12-25-2019 Bacteria identified Cx Nom (U) PATIENT: KIARA ASHLEY LOCATION: [id number] BILL#: [id number] : 89 AGE: SEX: F ORDERED BY: PARAS GUEVARA: URINE COLLECTED: 12/25/19 09:41ANTIBIOTICS AT [place].: RECEIVED : 12/25/19 17:06SITE: Clean Catch/Voided R E S U L T S URINE CULTURE,BACTERIAL FINAL 12/26/19 10:21 NO SIGNIFICANT GROWTH. AK-AKZEI-MNT [address] [place] Work Phone: Hematologyon 12-25-2019 ABO group Nom (Bld) A SD-QETNQ-UDU [address] [place] Work Phone: Blood group antibody screen Ql Negative YJ-GQIGE-EYM [address] [place] Work Phone: Rh immune globulin screen (Bld) [Interp] Positive JZ-QQRGT-AJD [address] [place] Work Phone: Hepatitis B Surface Antigeno n 12-25-2019 Hepatitis B Surface Antigen NONREACTIVE See Below TX-EQDVY-FYD [address] [place] Work Phone: Comment on above: [...] Hepatitis C Antibody Test NON-REACTIVE See Below WW-LXWAQ-UJV [address] [place] Work Phone: Comment on above: SOURCE: Reference Ra nge: NONREACTIVE Patients receiving more than 5 mg/day of biotin may have interference in test results. A sample should be taken no sooner than eight hours after previous dose. Contact the testing laboratory for additional information. Metabolic Panelon 12-25-2019 ALP [Catalytic activity/Vol] 67 U/L 33 - 110 RD-DWLJQ-LLS [address] [place] Work Phone: Anion gap [Moles/Vol] 15 mmol/L 10 - 20 OA-SHDHH-EOA [address] [place] Work Phone: Bilirubin [Mass/Vol] 0.3 mg/dL 0.0 - 1.2 CO-ZVMOO-WOH [address] [place] Work Phone: Calcium [Mass/Vol] 9.6 mg/dL 8.6 - 10.6 WL-MIAVM-AJD [address] [place] Work Phone: Chloride [Moles/Vol] 104 mmol/L 98 - 107 DW-JCNFK-TEP [address] [place] Work Phone: CO2 [Moles/Vol] 21 mmol/L 21 - 32 MG-OBGYN- MAC [address] [place] Work Phone: Creatinine [Mass/Vol] 0.69 mg/dL See Below VV-YRNRQ-XAI [address] [place] Work Phone: Comment on above: Reference Range: 0.5 0 - 1.05 Glucose [Mass/Vol] 83 mg/dL 74 - 99 US-VDHRS-OHX [address] [place] Work Phone: Comment on above: SOURCE: Potassium [Moles/Vol] 4.1 mmol/L 3.5 - 5.3 VF-XRAFP-TUE [address] [place] Work Phone: Protein [Mass/Vol] 6.2 g/dL below low threshold 6.4 - 8.2 DY-CSJHN-YXL [address] [place] Work Phone: Sodium [Moles/Vol] 136 mmol/L 136 - 145 JV-OLIXY-FMY [address] [place] Work Phone: Urea nitrogen [Mass/Vol] 9 mg/dL 6 - 23 ZN-YXKDG-NLA [address] [place] Work Phone: Otheron 12-25-2019 Albumin BCP dye [Mass/Vol] 3.9 g/dL 3.4 - 5.0 CC-WROKM-EGW [address] [place] Work Phone: ALT With P-5'-P [Catalytic activity/Vol] 8 U/L 7 - 45 IG-KVAOH-KXX [address] [place] Work Phone: Comment on above: Patients treated wit h Sulfasalazine may generate falsely decreased results for ALT. AST With P-5'-P [Catalytic activity/Vol] 11 U/L 9 - 39 YD-PRJOL-OEW [address] [place] Work Phone: NONE CN-OAFGL-BDA [address] [place] Work Phone: >60 >60 KX-KVVRU-BNY [address] [place] Work Phone: Comment on above: CALCULATIONS OF MARÍA MATED GFR ARE PERFORMED USING THE MDRD STUDY EQUATION FOR THE IDMS-TRACEABLE CREATININE METHODS. CLIN CHEM 2007;53:766-72 SYPHILIS SCREENING WITH REFL EXon 12-25-2019 T. pallidum IgG+IgM IA Ql (S) NONREACTIVE See Below WD-ZTMWG-CDJ [address] [place] Work Phone: Comment on above: SOURCE: Reference Ra nge: NONREACTIVENo significant level of Treponema pallidum antibody detected. Repeat testing in 2 to 4 weeks may be considered if early infection or incubating syphilis infection is suspected. CBC AND DIFFERENTIALon 11-21 % AUTOMATED IMMATURE GRAN 0.9 % Normal 0.0 - 0.9 [facility] [place] Comment on above: Result Comment: Perc ent differential counts (%) should be interpreted in the context of the absolute cell counts (cells/L). Performed By: #### C BCDF #### [address] [place] [address] Basophils (Bld) [#/Vol] 0.16 10*3/uL High 0.00 - 0.10 [facility] [place] Comment on above: Performed By: #### C BCDF #### [address] [place] [address] Basophils/100 WBC (Bld) 1.2 % Normal 0.0 - 2.0 [facility] [place] Comment on above: Performed By: #### C BCDF #### [address] [place] [address] Eosinophils (Bld) [#/Vol] 0.80 10*3/uL High 0.00 - 0.70 [facility] [place] Comment on above: Performed By: #### C BCDF #### [address] [place] [address] Eosinophils/100 WBC (Bld) 5.8 % Normal 0.0 - 6.0 [facility] [place] Comment on above: Performed By: #### C BCDF #### [address] [place] [address] Erythrocyte distribution width (RBC) [Ratio] 13.6 % Normal 11.5 - 14.5 [facility] [place] Comment on above: Performed By: #### C BCDF #### [address] [place] [address] Hematocrit (Bld) [Volume fraction] 39.4 % Normal 36.0 - 46.0 [facility] [place] Comment on above: Performed By: #### C BCDF #### [address] [place] [address] Hemoglobin (Bld) [Mass/Vol] 13.0 g/dL Normal 12.0 - 16.0 [facility] [place] Comment on above: Performed By: #### C BCDF #### [address] [place] [address] Lymphocytes (Bld) [#/Vol] 2.24 10*3/uL Normal 1.20 - 4.80 [facility] [place] Comment on above: Performed By: #### C BCDF #### [address] [place] [address] Lymphocytes/100 WBC (Bld) 16.3 % Normal 13.0 - 44.0 [facility] [place] Comment on above: Performed By: #### C BCDF #### [address] [place] [address] MCHC (RBC) [Mass/Vol] 33.0 g/dL Normal 32.0 - 36.0 [facility] [place] Comment on above: Performed By: #### C BCDF #### [address] [place] [address] MCV (RBC) [Entitic vol] 94 fL Normal 80 - 100 [facility] [place] Comment on above: Performed By: #### C BCDF #### [address] [place] [address] Monocytes (Bld) [#/Vol] 0.83 10*3/uL Normal 0.10 - 1.00 [facility] [place] Comment on above: Performed By: #### C BCDF #### [address] [place] [address] Monocytes/100 WBC (Bld) 6.0 % Normal 2.0 - 10.0 [facility] [place] Comment on above: Performed By: #### C BCDF #### [address] [place] [address] Neutrophils (Bld) [#/Vol] 9.60 10*3/uL High 1.20 - 7.70 [facility] [place] Comment on above: Performed By: #### C BCDF #### [address] [place] [address] Neutrophils/100 WBC (Bld) 69.8 % Normal 40.0 - 80.0 [facility] [place] Comment on above: Performed By: #### C BCDF #### [address] [place] [address] Platelets (Bld) [#/Vol] 380 10*3/uL Normal 150 - 450 [facility] [place] Comment on above: Performed By: #### C BCDF #### [address] [place] [address] RBC (Bld) [#/Vol] 4.21 x10E12/L Normal 4.00 - 5.20 [facility] [place] Comment on above: Performed By: #### C BCDF #### [address] [place] [address] WBC (Bld) [#/Vol] 13.8 10*3/uL High 4.4 - 11.3 [facility] Comment on above: Performed By: #### C BCDF #### [address] [place] [address] Complete Blood Count + Diffe martaon 11-14-2019 Basophils (Bld) [#/Vol] 0.05 {x10E9/L} See Below -Reproductiv e Endocrinology- [place] Work Phone: Comment on above: Reference Range: 0.0 0 - 0.10 Basophils/100 WBC (Bld) 0.4 % 0.0 - 2.0 MP-Reproductiv e Endocrinology- [place] Work Phone: Eosinophils (Bld) [#/Vol] 0.89 {x10E9/L} above high threshold See Below MP-Reproductiv e Endocrinology- [place] Work Phone: Comment on above: Reference Range: 0.0 0 - 0.70 Eosinophils/100 WBC (Bld) 7.3 % 0.0 - 6.0 MP-Reproductiv e Endocrinology- [place] Work Phone: Erythrocyte distribution width (RBC) [Ratio] 13.9 % See Below -Reproductiv e Endocrinology- [place] Work Phone: Comment on above: Reference Range: [...] 32.5 g/dL See Below MP-Reproductiv e Endocrinology- [place] Work Phone: Comment on above: Reference Range: 32. 0 - 36.0 MCV (RBC) [Entitic vol] 95 fL 80 - 100 [facility] Work [facility]: Monocytes (Bld) [#/Vol] 0.60 {x10E9/L} See Below [facility] Work Phone: Comment on above: Reference Range: 0.1 0 - 1.00 Monocytes/100 WBC (Bld) 4.9 % 2.0 - 10.0 [facility] Work Phone: Neutrophils/100 WBC (Bld) 69.4 % See Below MP-Reproductiv e EndocrinologyThe [facility] Work Phone: Comment on above: Reference Range: 40. 0 - 80.0 Platelets (Bld) [#/Vol] 423 {x10E9/L} 150 - 450 [facility] Work Phone: RBC (Bld) [#/Vol] 4.15 {x10E12/L} See Below MP [facility] Work Phone: Comment on above: Reference Range: 4.0 0 - 5.20 WBC (Bld) [#/Vol] 12.2 {x10E9/L} above high threshold 4.4 - 11.3 [facility] Work Phone: WBC (Bld) [#/Vol] 0.0 {/100_WBC} [...] U/L 33 - 110 MP-Reproductiv e Endocrinology- [place] Work Phone: Anion gap [Moles/Vol] 19 mmol/L 10 - 20 MP-Reproductiv e Endocrinology- [place] Work Phone: Bilirubin [Mass/Vol] 0.4 mg/dL 0.0 - 1.2 MP-Reproductiv e Endocrinology- [place] Work Phone: Calcium [Mass/Vol] 9.5 mg/dL 8.6 - 10.6 MP-Reproductiv e Endocrinology- [place] Work Phone: Chloride [Moles/Vol] 100 mmol/L 98 [...] threshold 136 - 145 MP-Reproductiv e Endocrinology- [place] Work Phone: Urea nitrogen [Mass/Vol] 10 mg/dL 6 - 23 MP-Reproductiv e [facility] Work Phone: Otheron 11-14-2019 Albumin BCP dye [Mass/Vol] 3.5 g/dL 3.4 - 5.0 MP-Reproductiv e [facility] Work Phone: ALT With P-5'-P [Catalytic activity/Vol] 17 U/L 7 - 45 MP-Reproductiv e [facility] Work Phone: Comment on above: Patients treated wit h Sulfasalazine may generate falsely decreased results for ALT. AST With P-5'-P [Catalytic activity/Vol] 22 U/L 9 - 39 MP-Reproductiv e [facility] Work Phone: >60 >60 -Reproductiv [facility] Work Phone: Comment on above: CALCULATIONS OF MARÍA MATED GFR ARE PERFORMED USING THE MDRD STUDY EQUATION FOR THE IDMS-TRACEABLE CREATININE METHODS. CLIN CHEM 2007;53:766-72 CBCon 11-09-2019 Erythrocyte distribution width (RBC) [Ratio] 13.7 % See Below WS-RDOAO-Eetmt n 310 IV[facility] Work Phone: Comment on above: Performed By: #### L H #### [facility] [address] [place] [address] Reference Range: 11. 5 - 14.5 Hematocrit (Bld) [Volume fraction] 41.9 % See Below MD-DNYYN-Ywyeb n 310 [facility] Work Phone: Comment on above: Performed By: #### L H #### [facility] [address] [place] [address] Reference Range: 36. 0 - 46.0 Hemoglobin (Bld) [Mass/Vol] 14.0 g/dL See Below FT-HQEPC-Ylkye n 310 [facility] Work Phone: Comment on above: Performed By: #### L H #### [facility] [address] [place] [address] Reference Range: 12. 0 - 16.0 MCHC (RBC) [Mass/Vol] 33.4 g/dL See Below ZV-NSYWG-Hupcf n 310 [facility] Work Phone: Comment on above: Performed By: #### L H #### [facility] [address] [place] [address] Reference Range: 32. 0 - 36.0 MCV (RBC) [Entitic vol] 94 fL 80 - 100 IV-CUJRV-Pecof n 310 [facility] Work Phone: Comment on above: Performed By: #### L H #### [facility] [address] [place] [id number] Platelets (Bld) [#/Vol] 411 10*3/uL Normal 150 - 450 [facility] Comment on above: Performed By: #### L H #### [facility] [address] [place] [id number] RBC (Bld) [#/Vol] 4.44 x10E12/L Normal 4.00 - 5.20 [facility] Comment on above: Performed By: #### L H #### [facility] [address] [place] [id number] WBC (Bld) [#/Vol] 12.4 10*3/uL High 4.4 - 11.3 [facility] Comment on above: Performed By: #### L H #### [facility] [address] [place] [id number] COMPREHENSIVE PANELon 2018 Albumin [Mass/Vol] 3.8 g/dL Normal 3.4 - 5.0 [facility] Comment on above: Performed By: #### L H #### [facility] [address] [place] [address] ALP [Catalytic activity/Vol] 51 U/L 33 - 110 PG-ONXGV-Cyshs n 310 IV[facility] Work Phone: Comment on above: Performed By: #### L H #### [facility] [address] [place] [address] ALT [Catalytic activity/Vol] 12 U/L Normal 7 - 45 [facility] Comment on above: Result Comment: Melida ents treated with Sulfasalazine may generate falsely decreased results for ALT. Performed By: #### L H #### [facility] [address] [place] [address] Anion gap [Moles/Vol] 13 mmol/L 10 - 20 LR-ORLSD-Bkeca n 310 IV[facility] Work Phone: Comment on above: Performed By: #### L H #### [facility] [address] [place] [id number] AST [Catalytic activity/Vol] 12 U/L Normal 9 - 39 [facility] Comment on above: Performed By: #### L H #### [facility] [address] [place] [id number] Bilirubin [Mass/Vol] 0.4 mg/dL 0.0 - 1.2 ZZ-EBZRL-Wycty n 310 IV[facility] Work Phone: Comment on above: Performed By: #### L H #### [facility] [address] [place] [id number] Calcium [Mass/Vol] 9.3 mg/dL 8.6 - 10.3 NM-YLFQT-Nikps n 310 IV[facility] Work Phone: Comment on above: Performed By: #### L H #### [facility] [address] [place] [id number] Chloride [Moles/Vol] 102 mmol/L 98 - 107 OH-WKOAE-Bydpj n 310 IV[facility] Work Phone: Comment on above: Performed By: #### L H #### [facility] [address] [place] [id number] Creatinine [Mass/Vol] 0.89 mg/dL See Below FX-RYIVX-Egptu n 310 IV[facility] Work Phone: Comment on above: Performed By: #### L H #### [facility] [address] [place] [id number] Reference Range: 0.5 0 - 1.05 GFR- AM. >60 Normal >60 [facility] Comment on above: Result Comment: CALC ULATIONS OF ESTIMATED GFR ARE PERFORMED USING THE MDRD STUDY EQUATION FOR THE IDMS-TRACEABLE CREATININE METHODS. CLIN CHEM 2007;53:766-72 Performed By: #### L H #### [facility] [address] [place] [address] GFR-NON AM. >60 Normal >60 [facility] Comment on above: Performed By: #### L H #### [facility] [address] [place] [address] Glucose [Mass/Vol] 74 mg/dL 74 - 99 JC-VZPZX-Dtruy n 310 IV[facility] Work Phone: Comment on above: Performed By: #### L H #### [facility] [address] [place] [address] HCO3 (Bld) [Moles/Vol] 25 mmol/L Normal 21 - 32 [facility] Comment on above: Performed By: #### L H #### [facility] [address] [place] [address] Potassium [Moles/Vol] 4.1 mmol/L 3.5 - 5.3 JB-UAONI-Bchsa n 310 IV[facility] Work Phone: Comment on above: Performed By: #### L H #### [facility] [address] [place] [id number] Protein [Mass/Vol] 6.0 g/dL below low threshold 6.4 - 8.2 WF-HVYPH-Zhwnl n 310 IV[facility] Work Phone: Comment on above: Performed By: #### L H #### [facility] [address] [place] [id number] Sodium [Moles/Vol] 136 mmol/L 136 - 145 ID-EOMON-Rbwen n 310 IV[facility] Work Phone: Comment on above: Performed By: #### L H #### [facility] [address] [place] [address] Urea nitrogen [Mass/Vol] 11 mg/dL 6 - 23 WW-CRRNN-Jpnic n 310 IV[facility] Work Phone: Comment on above: Performed By: #### L H #### [facility] [address] [place] [address] HCG, Beta Quantitativeon HCG.beta subunit Qn 7102 {mIU/mL} Abnormal ZL-TVFPL-Avjzc n 310 [facility] Work Phone: Comment on [...] HCG measurement is performed using the [employer] Access Immunoassay which detects intact HCG and free beta HCG subunit. This test is not indicated for use as a tumor marker. HCG testing is performed using a different test methodology at [facility] than other [facility]. Direct result comparison should only be made within the same method. REF VALUESNON FEMALE <5MALES <5 HCG,BETA-QUANTITATIVEon - HCG,BETA-QUANTITA TIVE 7102 mIU/mL [facility] Comment on above: Result Comment: Low- [...] HCG measurement is performed using the [employer] Access Immunoassay which detects intact HCG and free beta HCG subunit. This test is not indicated for use as a tumor marker. HCG testing is performed using a different test methodology at [facility] than other [facility]. Direct result comparison should only be made within the same method. REF VALUES NON FEMALE <5 MALES <5 Performed By: #### L H #### [facility] [address] [place] [address] Hematologyon 11-09-2019 Platelets (Bld) [#/Vol] 411 {x10E9/L} 150 - 450 LL-SRRVW-Qsrdf n 310 [facility] Work Phone: RBC (Bld) [#/Vol] 4.44 {x10E12/L} See Below MG -OBGYN-Risma n 310 IV[facility] Work Phone: Comment on above: Reference Range: 4.0 0 - 5.20 WBC (Bld) [#/Vol] 12.4 {x10E9/L} above high threshold 4.4 - 11.3 XH-DXVUC-Uzlpq n 310 [facility] Work Phone: Metabolic Panelon 11-09-2019 CO2 [Moles/Vol] 25 mmol/L 21 - 32 MG-OBGYN- Risma n 310 IV[facility] Work Phone: Otheron 11-09-2019 Albumin BCP dye [Mass/Vol] 3.8 g/dL 3.4 - 5.0 SU-TFSDY-Wqoxy n 310 [facility] Work Phone: ALT With P-5'-P [Catalytic activity/Vol] 12 U/L 7 - 45 YK-VPDGC-Lotza n 310 IV[facility] Work Phone: Comment on above: Patients treated wit h Sulfasalazine may generate falsely decreased results for ALT. AST With P-5'-P [Catalytic activity/Vol] 12 U/L 9 - 39 RQ-HKJTU-Kqksi n 310 [facility] Work Phone: >60 >60 OV-YZFKH-Jtqwc n 310 IV[facility] Work Phone: Comment on [...] performed using a different test methodology at [facility] than other [facility]. Direct result comparison should only be made within the same method. REF VALUESNON FEMALE <5MALES <5 HCG,BETA-QUANTITATIVEon 10-15 HCG,BETA-QUANTITA TIVE 240 mIU/mL [facility] Comment on above: Result Comment: Low- [...] performed using a different test methodology at [facility] than other [facility]. Direct result comparison should only be made within the same method. REF VALUES NON FEMALE <5 MALES <5 Performed By: #### E STRA #### [facility] [address] [place] [address] ESTRADIOLon 10-14-2019 ESTRADIOL 1871 pg/mL Normal [facility] Comment on above: Result Comment: Estr adiol measurement is performed using the [employer] Access Immunoassay. Estradiol testing is performed using a different test methodology at [facility] than other [facility]. Direct result comparison should only be made within the same method. REF VALUES FOLLICULAR PHASE 20-144 MID CYCLE 64-357 LUTEAL PHASE 56-214 POSTMENOPAUSE < 32 PREPUBERTY < 20 MALE 10-18Y < 20 ADULT MALE < 40 Performed By: #### E STRA #### [facility] [address] [place] [address] Estradiol, Serumon 9 E2 [Mass/Vol] 1871 pg/mL MG-OBGYN-Ri sma n 310 IVF Work Phone: Comment on above: Estradiol measuremen t is performed using the [employer] Access Immunoassay. Estradiol testing is performed using a different test methodology at [facility] than other [facility]. Direct result comparison should only be made within the same method.REF VALUESFOLLICULAR PHASE 20-144MID CYCLE 64-357LUTEAL PHASE 56-214POSTMENOPAUSE < 32PREPUBERTY < 20MALE 10-18Y < 20ADULT MALE < 40 PROGESTERONEon 10-14-2019 PROGESTERONE 1.0 ng/mL Normal [facility] Comment on above: Result Comment: Prog esterone is performed using the [employer] Access Immunoassay. Progesterone testing is performed using a different test methodology at [facility] than other [facility]. Direct result comparison should only be made within the same method. REF VALUES MALE <0.2-0.8 FOLLICULAR PHASE <0.2-1.5 LUTEAL PHASE 7.4-15.4 POSTMENOPAUSAL <0.2-0.2 1ST TRIMESTER 12.0-84.0 2ND TRIMESTER 10.2-58.8 3RD TRIMESTER 46.5-160 Performed By: #### E STRA #### [facility] [address] [place] [address] Progesterone, Serumon 2018 Progesterone [Mass/Vol] 1.0 ng/mL ZL-ICMVW-Cndnc n 310 IVF Work Phone: Comment on above: Progesterone is perf ormed using the [employer] Access Immunoassay. Progesterone testing is performed using a different test methodology at [facility] than other [facility]. Direct result comparison should only be made within the same method.REF VALUESMALE <0.2-0.8 FOLLICULAR PHASE <0.2-1.5 LUTEAL PHASE 7.4-15.4 POSTMENOPAUSAL <0.2-0.2 1ST TRIMESTER 12.0-84.0 2ND TRIMESTER 10.2-58.8 3RD TRIMESTER 46.5-160 ESTRADIOLon 10-11-2019 ESTRADIOL 284 pg/mL Normal [facility] Comment on above: Result Comment: Estr adiol measurement is performed using the [employer] Access Immunoassay. Estradiol testing is performed using a different test methodology at [facility] than other [facility]. Direct result comparison should only be made within the same method. REF VALUES FOLLICULAR PHASE 20-144 MID CYCLE 64-357 LUTEAL PHASE 56-214 POSTMENOPAUSE < 32 PREPUBERTY < 20 MALE 10-18Y < 20 ADULT MALE < 40 Performed By: #### E STRA #### [facility] [address] [place] [address] Estradiol, Serumon 201 9 E2 [Mass/Vol] 284 pg/mL MG-OBGYN-Ri [facility] n 310 IVF Work Phone: Comment on above: Estradiol measuremen t is performed using the [employer] Access Immunoassay. Estradiol testing is performed using a different test methodology at [facility] than other [facility]. Direct result comparison should only be made within the same method.REF VALUESFOLLICULAR PHASE 20-144MID CYCLE 64-357LUTEAL PHASE 56-214POSTMENOPAUSE < 32PREPUBERTY < 20MALE 10-18Y < 20ADULT MALE < 40 ESTRADIOLon 10-05-2019 ESTRADIOL 129 pg/mL Normal [facility] Comment on above: Result Comment: Estr adiol measurement is performed using the [employer] Access Immunoassay. Estradiol testing is performed using a different test methodology at [facility] than other [facility]. Direct result comparison should only be made within the same method. REF VALUES FOLLICULAR PHASE 20-144 MID CYCLE 64-357 LUTEAL PHASE 56-214 POSTMENOPAUSE < 32 PREPUBERTY < 20 MALE 10-18Y < 20 ADULT MALE < 40 Performed By: #### E STRA #### [facility] [address] [place] [address] Estradiol, Serumon 9 E2 [Mass/Vol] 129 pg/mL MG-OBGYN-Ri [facility] n 310 IVF Work Phone: Comment on above: Estradiol measuremen t is performed using the [employer] Access Immunoassay. Estradiol testing is performed using a different test methodology at [facility] than other [facility]. Direct result comparison should only be made within the same method.REF VALUESFOLLICULAR PHASE 20-144MID CYCLE 64-357LUTEAL PHASE 56-214POSTMENOPAUSE < 32PREPUBERTY < 20MALE 10-18Y < 20ADULT MALE < 40 PROGESTERONEon 10-05-2019 PROGESTERONE 0.2 ng/mL Normal [facility] Comment on above: Result Comment: Prog esterone is performed using the [employer] Access Immunoassay. Progesterone testing is performed using a different test methodology at [facility] than other [facility]. Direct result comparison should only be made within the same method. REF VALUES MALE <0.2-0.8 FOLLICULAR PHASE <0.2-1.5 LUTEAL PHASE 7.4-15.4 POSTMENOPAUSAL <0.2-0.2 1ST TRIMESTER 12.0-84.0 2ND TRIMESTER 10.2-58.8 3RD TRIMESTER 46.5-160 Performed By: #### E STRA #### [facility] [address] [place] [address] Progesterone, Serumon 2018 Progesterone [Mass/Vol] 0.2 ng/mL MC-YDOZR-Nrthb n 310 IVF Work Phone: Comment on above: Progesterone is perf ormed using the [employer] Access Immunoassay. Progesterone testing is performed using a different test methodology at [facility] than other [facility]. Direct result comparison should only be made within the same method.REF VALUESMALE <0.2-0.8 FOLLICULAR PHASE <0.2-1.5 LUTEAL PHASE 7.4-15.4 POSTMENOPAUSAL <0.2-0.2 1ST TRIMESTER 12.0-84.0 2ND TRIMESTER 10.2-58.8 3RD TRIMESTER 46.5-160 ESTRADIOLon 10-02-2019 ESTRADIOL 357 pg/mL Normal [facility] Comment on above: Result Comment: Estr adiol measurement is performed using the [employer] Access Immunoassay. Estradiol testing is performed using a different test methodology at [facility] than other [facility]. Direct result comparison should only be made within the same method. REF VALUES FOLLICULAR PHASE 20-144 MID CYCLE 64-357 LUTEAL PHASE 56-214 POSTMENOPAUSE < 32 PREPUBERTY < 20 MALE 10-18Y < 20 ADULT MALE < 40 Performed By: #### E STRA #### [facility] [address] [place] [address] Estradiol, Serumon 9 E2 [Mass/Vol] 357 pg/mL MG-OBGYN-Cr ock er 206A IVF Work Phone: Comment on above: Estradiol measuremen t is performed using the [employer] Access Immunoassay. Estradiol testing is performed using a different test methodology at [facility] than other [facility]. Direct result comparison should only be made within the same method.REF VALUESFOLLICULAR PHASE 20-144MID CYCLE 64-357LUTEAL PHASE 56-214POSTMENOPAUSE < 32PREPUBERTY < 20MALE 10-18Y < 20ADULT MALE < 40 LUTEINIZING HORMONEon 2018 LUTEINIZING HORMONE 14.7 IU/L Normal [facility] Comment on above: Result Comment: Lute inizing Hormone [LH] is performed using the [employer] Immunoassay. LH testing is performed using a different test methodology at [facility] than other [facility]. Direct result comparison should only be made within the same method. REF VALUES FOLLICULAR PHASE 1.5-10.0 MID-CYCLE 13.0-72.0 LUTEAL PHASE 0.5-13.0 MENOPAUSE 15.0-65.0 PREPUBERTY 0- 3.0 CHILDREN 0- 6.0 ADULT MALE 1.0- 9.0 Performed By: #### E STRA #### [facility] [address] [place] [address] Luteinizing Hormone, Serumon 10-02-2019 Lutropin Qn 14.7 {IU/L} XR-FEGTL-Gxo ck er 206A IVF Work Phone: Comment on above: Luteinizing Hormone [LH] is performed using the [employer] Immunoassay. LH testing is performed using a different test methodology at [facility] than other [facility]. Direct result comparison should only be made within the same method.REF VALUESFOLLICULAR PHASE 1.5-10.0MID-CYCLE 13.0-72.0LUTEAL PHASE 0.5-13.0MENOPAUSE 15.0-65.0PREPUBERTY 0- 3.0CHILDREN 0- 6.0ADULT MALE 1.0- 9.0 PROGESTERONEon 10-02-2019 PROGESTERONE 0.1 ng/mL Normal [facility] Comment on above: Result Comment: Prog esterone is performed using the [employer] Immunoassay. Progesterone testing is performed using a different test methodology at [facility] than other [facility]. Direct result comparison should only be made within the same method. REF VALUES MALE <0.2-0.8 FOLLICULAR PHASE <0.2-1.5 LUTEAL PHASE 7.4-15.4 POSTMENOPAUSAL <0.2-0.2 1ST TRIMESTER 12.0-84.0 2ND TRIMESTER 10.2-58.8 3RD TRIMESTER 46.5-160 Performed By: #### E STRA #### [facility] [address] [place] [address] Progesterone, Serumon 2018 Progesterone [Mass/Vol] 0.1 ng/mL QQ-KPIXK-Opduw er 206A IVF Work Phone: Comment on above: Progesterone is perf ormed using the [employer] Access Immunoassay. Progesterone testing is performed using a different test methodology at [facility] than other [facility]. Direct result comparison should only be made within the same method.REF VALUESMALE <0.2-0.8 FOLLICULAR PHASE <0.2-1.5 LUTEAL PHASE 7.4-15.4 POSTMENOPAUSAL <0.2-0.2 1ST TRIMESTER 12.0-84.0 2ND TRIMESTER 10.2-58.8 3RD TRIMESTER 46.5-160 HCG,BETA-QUANTITATIVEon 07-17 HCG,BETA-QUANTITA TIVE 10 mIU/mL [facility] Comment on above: Result Comment: Low- [...] HCG measurement is performed using the [employer] Access Immunoassay which detects intact HCG and free beta HCG subunit. This test is not indicated for use as a tumor marker. HCG testing is performed using a different test methodology at [facility] than other [facility]. Direct result comparison should only be made within the same method. REF VALUES NON FEMALE <5 MALES <5 Performed By: #### L H #### [facility] [address] [place] [address] LUTEINIZING HORMONEon 2018 LUTEINIZING HORMONE 57.0 IU/L Normal [facility] Comment on above: Result Comment: Lute inizing Hormone [LH] is performed using the [employer] Immunoassay. LH testing is performed using a different test methodology at [facility] than other [facility]. Direct result comparison should only be made within the same method. REF VALUES FOLLICULAR PHASE 1.5-10.0 MID-CYCLE 13.0-72.0 LUTEAL PHASE 0.5-13.0 MENOPAUSE 15.0-65.0 PREPUBERTY 0- 3.0 CHILDREN 0- 6.0 ADULT MALE 1.0- 9.0 Performed By: #### E STRA #### [facility] [address] [place] [address] PROGESTERONEon 08-13-2019 PROGESTERONE 6.7 ng/mL Normal [facility] Comment on above: Result Comment: Prog esterone is performed using the [employer] Immunoassay. Progesterone testing is performed using a different test methodology at [facility] than other [facility]. Direct result comparison should only be made within the same method. REF VALUES MALE <0.2-0.8 FOLLICULAR PHASE <0.2-1.5 LUTEAL PHASE 7.4-15.4 POSTMENOPAUSAL <0.2-0.2 1ST TRIMESTER 12.0-84.0 2ND TRIMESTER 10.2-58.8 3RD TRIMESTER 46.5-160 Performed By: #### L H #### [facility] [address] [place] [address] ESTRADIOLon 08-12-2019 ESTRADIOL 1380 pg/mL Normal [facility] Comment on above: Result Comment: Estr adiol measurement is performed using the [employer] Immunoassay. Estradiol testing is performed using a different test methodology at [facility] than [facility]. Direct result comparison should only be made within the same method. REF VALUES FOLLICULAR PHASE 20-144 MID CYCLE 64-357 LUTEAL PHASE 56-214 POSTMENOPAUSE < 32 PREPUBERTY < 20 MALE 10-18Y < 20 ADULT MALE < 40 Performed By: #### L H #### [facility] [address] [place] [address] PROGESTERONEon 08-12-2019 PROGESTERONE 1.7 ng/mL Normal [facility] Comment on above: Result Comment: Prog esterone is performed using the [employer] Immunoassay. Progesterone testing is performed using a different test methodology at [facility] than other [facility]. Direct result comparison should only be made within the same method. REF VALUES MALE <0.2-0.8 FOLLICULAR PHASE <0.2-1.5 LUTEAL PHASE 7.4-15.4 POSTMENOPAUSAL <0.2-0.2 1ST TRIMESTER 12.0-84.0 2ND TRIMESTER 10.2-58.8 3RD TRIMESTER 46.5-160 Performed By: #### L H #### [facility] [address] [place] [address] ESTRADIOLon 08-11-2019 ESTRADIOL 874 pg/mL Normal [facility] Comment on above: Result Comment: Estr adiol measurement is performed using the [employer] Immunoassay. Estradiol testing is performed using a different test methodology at [facility] than other [facility]. Direct result comparison should only be made within the same method. REF VALUES FOLLICULAR PHASE 20-144 MID CYCLE 64-357 LUTEAL PHASE 56-214 POSTMENOPAUSE < 32 PREPUBERTY < 20 MALE 10-18Y < 20 ADULT MALE < 40 Performed By: #### L H #### [facility] [address] [place] [address] PROGESTERONEon 08-11-2019 PROGESTERONE 1.2 ng/mL Normal [facility] Comment on above: Result Comment: Prog esterone is performed using the [employer] Immunoassay. Progesterone testing is performed using a different test methodology at [facility] than other [facility]. Direct result comparison should only be made within the same method. REF VALUES MALE <0.2-0.8 FOLLICULAR PHASE <0.2-1.5 LUTEAL PHASE 7.4-15.4 POSTMENOPAUSAL <0.2-0.2 1ST TRIMESTER 12.0-84.0 2ND TRIMESTER 10.2-58.8 3RD TRIMESTER 46.5-160 Performed By: #### L H #### [facility] [address] [place] [address] ESTRADIOLon 08-09-2019 ESTRADIOL 385 pg/mL Normal [facility] Comment on above: Result Comment: Estr adiol measurement is performed using the [employer] Immun[employer]. Estradiol testing is performed using a different test methodology at [facility] than [facility]. Direct result comparison should only be made within the same method. REF VALUES FOLLICULAR PHASE 20-144 MID CYCLE 64-357 LUTEAL PHASE 56-214 POSTMENOPAUSE < 32 PREPUBERTY < 20 MALE 10-18Y < 20 ADULT MALE < 40 Performed By: #### L H #### [facility] [address] [place] [address] ESTRADIOLon 08-07-2019 ESTRADIOL 80 pg/mL Normal [facility] Comment on above: Result Comment: Estr adiol measurement is performed using the [employer] Access Immunoassay. Estradiol testing is performed using a different test methodology at [facility] than [facility]. Direct result comparison should only be made within the same method. REF VALUES FOLLICULAR PHASE 20-144 MID CYCLE 64-357 LUTEAL PHASE 56-214 POSTMENOPAUSE < 32 PREPUBERTY < 20 MALE 10-18Y < 20 ADULT MALE < 40 Performed By: #### L H #### [facility] [address] [place] [address] ESTRADIOLon 08-04-2019 ESTRADIOL 58 pg/mL Normal [facility] Comment on above: Result Comment: Estr adiol measurement is performed using the [employer] Access Immunoassay. Estradiol testing is performed using a different test methodology at [facility] than [facility]. Direct result comparison should only be made within the same method. REF VALUES FOLLICULAR PHASE 20-144 MID CYCLE 64-357 LUTEAL PHASE 56-214 POSTMENOPAUSE < 32 PREPUBERTY < 20 MALE 10-18Y < 20 ADULT MALE < 40 Performed By: #### L H #### [facility] [address] [place] [address] ESTRADIOLon 07-07-2019 ESTRADIOL 110 pg/mL Normal [facility] Comment on above: Result Comment: Estr adiol measurement is performed using the [employer] Access Immunoassay. Estradiol testing is performed using a different test methodology at [facility] than [facility]. Direct result comparison should only be made within the same method. REF VALUES FOLLICULAR PHASE 20-144 MID CYCLE 64-357 LUTEAL PHASE 56-214 POSTMENOPAUSE < 32 PREPUBERTY < 20 MALE 10-18Y < 20 ADULT MALE < 40 Performed By: #### L H #### [facility] [address] [place] [address] NR MRI SELLA WO/Won 05-31-20 19 NR MRI SELLA WO/W Patient Name: KIARA ASHLEY STUDY: NR MRI SELLA WO/W; 05/31/2019 2:00 pm INDICATION: History of 7 mm microadenoma 2008. COMPARISON: None. ACCESSION NUMBER(S): [id number] ORDERING CLINICIAN: SHAHLA HEALY TECHNIQUE: High resolution [...] Electronically signed by: IRENE BLAKE PHYSICIAN Normal [facility] ESTRADIOLon 05-05-2019 ESTRADIOL 217 pg/mL Normal [facility] Comment on above: Result Comment: Estr adiol measurement is performed using the [employer] Access Immunoassay. Estradiol testing is performed using a different test methodology at [facility] than other [facility]. Direct result comparison should only be made within the same method. REF VALUES FOLLICULAR PHASE 20-144 MID CYCLE 64-357 LUTEAL PHASE 56-214 POSTMENOPAUSE < 32 PREPUBERTY < 20 MALE 10-18Y < 20 ADULT MALE < 40 Performed By: #### E STRA #### [facility] [address] [place] [address] LUTEINIZING HORMONEon 2018 LUTEINIZING HORMONE 4.4 IU/L Normal [facility] Comment on above: Result Comment: Lute inizing Hormone [LH] is performed using the [employer] Access Immunoassay. LH testing is performed using a different test methodology at [facility] than other [facility]. Direct result comparison should only be made within the same method. REF VALUES FOLLICULAR PHASE 1.5-10.0 MID-CYCLE 13.0-72.0 LUTEAL PHASE 0.5-13.0 MENOPAUSE 15.0-65.0 PREPUBERTY 0- 3.0 CHILDREN 0- 6.0 ADULT MALE 1.0- 9.0 Performed By: #### L H #### [facility] [address] [place] [address] ESTRADIOLon 04-11-2019 ESTRADIOL 118 pg/mL Normal [facility] Comment on above: Result Comment: Estr adiol measurement is performed using the [employer] Access Immunoassay. Estradiol testing is performed using a different test methodology at [facility] than [facility]. Direct result comparison should only be made within the same method. REF VALUES FOLLICULAR PHASE 20-144 MID CYCLE 64-357 LUTEAL PHASE 56-214 POSTMENOPAUSE < 32 PREPUBERTY < 20 MALE 10-18Y < 20 ADULT MALE < 40 Performed By: #### E STRA #### [facility] [address] [place] [address] LUTEINIZING HORMONEon 2018 LUTEINIZING HORMONE 7.7 IU/L Normal [facility] Comment on above: Result Comment: Lute inizing Hormone [LH] is performed using the [employer] Access Immunoassay. LH testing is performed using a different test methodology at [facility] than [facility]. Direct result comparison should only be made within the same method. REF VALUES FOLLICULAR PHASE 1.5-10.0 MID-CYCLE 13.0-72.0 LUTEAL PHASE 0.5-13.0 MENOPAUSE 15.0-65.0 PREPUBERTY 0- 3.0 CHILDREN 0- 6.0 ADULT MALE 1.0- 9.0 Performed By: #### L H #### [facility] [address] [place] [address] PROGESTERONEon 04-11-2019 PROGESTERONE 0.1 ng/mL Normal [facility] Comment on above: Result Comment: Prog esterone is performed using the [employer] Access Immunoassay. Progesterone testing is performed using a different test methodology at [facility] than other [facility]. Direct result comparison should only be made within the same method. REF VALUES MALE <0.2-0.8 FOLLICULAR PHASE <0.2-1.5 LUTEAL PHASE 7.4-15.4 POSTMENOPAUSAL <0.2-0.2 1ST TRIMESTER 12.0-84.0 2ND TRIMESTER 10.2-58.8 3RD TRIMESTER 46.5-160 Performed By: #### P SVEN #### [facility] [address] [place] [address] ESTRADIOLon 03-17-2019 ESTRADIOL 120 pg/mL Normal [facility] Comment on above: Result Comment: Estr adiol measurement is performed using the [employer] Access Immunoassay. Estradiol testing is performed using a different test methodology at [facility] than [facility]. Direct result comparison should only be made within the same method. REF VALUES FOLLICULAR PHASE 20-144 MID CYCLE 64-357 LUTEAL PHASE 56-214 POSTMENOPAUSE < 32 PREPUBERTY < 20 MALE 10-18Y < 20 ADULT MALE < 40 Performed By: #### E STRA #### [facility] [address] [place] [address] LUTEINIZING HORMONEon 2018 LUTEINIZING HORMONE 6.8 IU/L Normal [facility] Comment on above: Result Comment: Lute inizing Hormone [LH] is performed using the [employer] Access Immunoassay. LH testing is performed using a different test methodology at [facility] than [facility]. Direct result comparison should only be made within the same method. REF VALUES FOLLICULAR PHASE 1.5-10.0 MID-CYCLE 13.0-72.0 LUTEAL PHASE 0.5-13.0 MENOPAUSE 15.0-65.0 PREPUBERTY 0- 3.0 CHILDREN 0- 6.0 ADULT MALE 1.0- 9.0 Performed By: #### L H #### [facility] [address] [place] [address] ESTRADIOLon 02-20-2019 ESTRADIOL 521 pg/mL Normal [facility] Comment on above: Result Comment: Estr adiol measurement is performed using the [employer] Access Immunoassay. Estradiol testing is performed using a different test methodology at [facility] than other [facility]. Direct result comparison should only be made within the same method. REF VALUES FOLLICULAR PHASE 20-144 MID CYCLE 64-357 LUTEAL PHASE 56-214 POSTMENOPAUSE < 32 PREPUBERTY < 20 MALE 10-18Y < 20 ADULT MALE < 40 Performed By: #### E STRA #### [facility] [address] [place] [address] LUTEINIZING HORMONEon 2018 LUTEINIZING HORMONE 3.5 IU/L Normal [facility] Comment on above: Result Comment: Lute inizing Hormone [LH] is performed using the [employer] Access Immunoassay. LH testing is performed using a different test methodology at [facility] than other [facility]. Direct result comparison should only be made within the same method. REF VALUES FOLLICULAR PHASE 1.5-10.0 MID-CYCLE 13.0-72.0 LUTEAL PHASE 0.5-13.0 MENOPAUSE 15.0-65.0 PREPUBERTY 0- 3.0 CHILDREN 0- 6.0 ADULT MALE 1.0- 9.0 Performed By: #### L H #### [facility] [address] [place] [address] Vital Signs Date Time Vital Sign Value Performing Clinician Modesto golden 12-27-2023 10:57-0500 Body mass index (BMI) [Ratio] 34.84 kg/m2 Bere JOHNSON Work Phone: [facility] 12-27-2023 10:57-0500 Body weight 83.64 kg Bere JOHNSON Work Phone: [facility] 12-27-2023 10:57-0500 Diastolic blood pressure 68 mm[Hg] Bere JOHNSON Work Phone: [facility] 12-27-2023 10:57-0500 Systolic blood pressure 110 mm[Hg] Bere JOHNSON Work Phone: [facility] 02-27-2023 11:35-0400 Body mass index (BMI) [Ratio] 29.26 kg/m2 Evelyn Perez Work Phone: [facility] 02-27-2023 11:35-0400 Body temperature 98.8 [degF] Evelyn Calderonrn Work Phone: [facility] [employer] 02-27-2023 11:35-0400 Body weight 72.58 kg Evelyn Calderonrn Work Phone: [facility] [employer] 02-27-2023 11:35-0400 Diastolic blood pressure 66 mm[Hg] Evelyn Calderonrn Work Phone: [facility] [employer] 02-27-2023 11:35-0400 Heart rate 88 /min Evelyn Calderonrn Work Phone: [facility] [employer] 02-27-2023 11:35-0400 Respiratory rate 14 /min Evelyn Calderonrn Work Phone: [facility] 02-27-2023 11:35-0400 SaO2% (BldA) [Mass fraction] 100 % Evelyn Calderonrn Work Phone: [facility] [employer] 02-27-2023 11:35-0400 Systolic blood pressure 103 mm[Hg] Evelyn Calderonrn Work Phone: [facility] [employer] 06-19-2021 14:03-0400 Body height 157.48 cm Evelyn Calderonrn Work Phone: SF-ATHBB-Pazzat 310 IVF Work Phone: 06-19-2021 14:03-0400 Body mass index (BMI) [Ratio] 29.26 kg/m2 Evelyn Calderonrn Work Phone: FZ-JPJZD-Ifenkb 310 IVF Work Phone: 06-19-2021 14:03-0400 Body surface area Derived from formula 1.74 m2 Evelyn Calderonrn Work Phone: LZ-RPKSP-Efbthi 310 IVF Work Phone: 06-19-2021 14:03-0400 Body weight 72.58 kg Evelyn Husain Ana Work Phone: WI-HSTLB-Juvfrn 310 IVF Work Phone: 06-19-2021 14:03-0400 1 1 Evelyn M Ana Work Phone: XS-CJXHU-Ehedjj 310 IVF Work Phone: Comment on above: GRAV PARA 06-19-2021 14:03-0400 0 1 Evelyn Husain Ana Work Phone: LL-IFZYY-Flovef 310 IVF Work Phone: Comment on above: [employer] 06-07-2020 10:41-0400 BMI (Body Mass Index) 34.93 kg/m2 King Lappen SF-MXKUY-ERY [address] [place] Work Phone: 06-07-2020 10:41-0400 Body weight 86.64 kg King Lappen CW-OKDWM-OPK 120 0 [place] Work Phone: 06-07-2020 10:41-0400 BP Diastolic 76 mm[Hg] King Lappen KK-EKOTE-DWS 120 0 [place] Work Phone: 06-07-2020 10:41-0400 BP Systolic 111 mm[Hg] King Lappen TG-JEDWD-LAM 120 0 [place] Work Phone: 06-07-2020 10:41-0400 BSA (Body Surface Area) 1.87 m2 King Lappen DY-PYDKF-ISR [address] [place] Work Phone: 06-07-2020 10:41-0400 Pulse (Heart Rate) 101 /min King Lappen HW-RLKVA-OTF 1200 [place] Work Phone: 06-07-2020 10:41-0400 0 1 King Lappen LJ-HFFHY-MIW 120 0 [place] Work Phone: Comment on above: [employer] 12-25-2019 10:58-0500 BMI (Body Mass Index) 30.18 kg/m2 King Lappen VJ-MAZTR-UYX [address] [place] Work Phone: 12-25-2019 10:58-0500 Body weight 74.84 kg King Lappen XR-MOVAD-UKX 120 0 [place] Work Phone: 12-25-2019 10:58-0500 BP Diastolic 68 mm[Hg] King Lappen PQ-ZDWQU-OXU 120 0 [place] Work Phone: 12-25-2019 10:58-0500 BP Systolic 112 mm[Hg] King Lappen QT-IVRAJ-MWB 120 0 [place] Work Phone: 12-25-2019 10:58-0500 BSA (Body Surface Area) 1.76 m2 King Lappen QN-YPXHL-QDY 1200 [place] Work Phone: 11-09-2019 11:28-0500 Body Temperature 98.78 [degF] Kelechi Gage GS-AYMOT-Icqzmh 310 IVF Work Phone: 11-09-2019 11:28-0500 BP Diastolic 76 mm[Hg] Kelechi Gage KI-LYOCI-Jnlbaz 310 IVF Work Phone: 11-09-2019 11:28-0500 BP Systolic 112 mm[Hg] Kelechi Gage DZ-TJTKY-Bvrcgo 310 IVF Work Phone: 11-09-2019 11:28-0500 Respiratory Rate 96 /min Kelechi Gage YF-XQEHB-Zetvbo 310 IVF Work Phone: Encounters Encounter Date Encounter Type Care Provider Facility Start: 02-07-2024 End: 02-07-2024 ambulatory DEMARIO RIBEIRO Not Available Start: 01-24-2024 End: 01-24-2024 ambulatory BERE STEEL Not Available Start: 01-10-2024 End: 01-11-2024 ambulatory Zoya Buitrago [employer]IDENTIAL CAREGIVER Facility:Pulmonology & Critical Care Medicine [facility] Start: 12-27-2023 End: 12-27-2023 ambulatory BERE STEEL Not Available Start: 12-27-2023 End: 12-27-2023 flow sheet Bere JOHNSON Work Phone: [facility] Comment on [...] Start: 09-14-2023 End: 09-14-2023 ambulatory Lc Waite Facility:[facility] Start: 02-27-2023 End: 02-27-2023 Emergency department patient visit EVELYN Husain ANA [facility] Start: 02-27-2023 End: 02-27-2023 Emergency department patient visit Evelyn UngerAna Work Phone: [facility] ED Comment on above: Sprain of left ankle , unspecified ligament, initial encounter (Primary Dx) Start: 01-11-2023 End: 01-11-[address] DEMARIO RIBEIRO . Facility:[facility] Start: 09-22-2022 End: 09-22-2022 Emergency department patient visit JAMI ROMERO [facility] Start: 03-10-[address] EVELYN [...] 12-27-2021 End: 12-27-2021 ambulatory Sabina Barnhart Other [employer] Other Start: 12-27-2021 Office outpatient visit 5 minutes Sabina Barnhart [facility] Start: 07-16-2021 Patient encounter procedure Evelyn Perez Work Phone: QK-QPBOJ-Mpntel 310 IVF Work Phone: Start: 07-07-2021 AUDIT Evelyn castrohofabrizio Work Phone: DU-VCRGD-Ittxrc 310 IVF Work Phone: Start: 07-07-2021 Chart Update Evelyn santana Work Phone: QB-PNVAN-Eupqxb 310 IVF Work Phone: Start: 07-02-2021 Telephone encounter Evelyn gonzales Work Phone: NO-YVOLI-Elpnxb 310 IVF Work Phone: Start: 06-19-2021 Patient encounter procedure Evelyn Perez Work Phone: HV-HLSPM-Lmxbsr 310 IVF Work Phone: Start: 06-07-2020 Patient encounter procedure King Lappen RQ-CJUGK-JXS 1200 [place] Work Phone: Start: 04-24-2020 Patient encounter procedure King Lappen JU-PVSOP-KPK 1200 [place] Work Phone: Start: 02-20-2020 Patient encounter procedure King Lappen OF-OUWVK-XPP 1200 [place] Work Phone: Start: 02-14-2020 Patient encounter procedure King Lappen WV-VRUYG-JCS 1200 [place] Work Phone: Start: 01-23-2020 Patient encounter procedure King Lappen EL-UNYDC-UIY 1200 [place] Work Phone: Start: 12-25-2019 Patient encounter procedure King Lappen PP-GPFOV-YUB 1200 [place] Work Phone: Start: 11-21-2019 Patient encounter procedure King Lappen IE-NUGGD-EHK 1200 [place] Work Phone: Start: 11-16-2019 Patient encounter procedure Kelechi Gage MP-Reproductive Endocrinology-[place] 206 Work Phone: Start: 11-14-2019 Patient encounter procedure Kelechi Gage PG-OVXTK-Ppbtev 310 IVF Work Phone: Start: 11-09-2019 Patient encounter procedure Kelechi Gage OP-FKDGF-Ebdbyi 310 IVF Work Phone: Start: 11-02-2019 Patient encounter procedure Kelechi Gage ZEE-Reproductive Endocrinology-[place] Work Phone: Start: 10-21-2019 Patient encounter procedure Kelechi Gage MP-Reproductive Endocrinology-[place] Work Phone: Start: 10-14-2019 Patient encounter procedure Kelechi Gage AB-YBFTT-Zzsuss 310 IVF Work Phone: Start: 10-11-2019 Patient encounter procedure Kelechi Gage KS-ZPWLE-Zgtjzs 310 IVF Work Phone: Start: 10-05-2019 Patient encounter procedure Kelechi Gage EG-NODZR-Aovqnd 320 Work Phone: Start: 10-02-2019 Patient encounter procedure Kelechi Gage II-SAZLO-Teqgrbv 206A IVF Work Phone: Start: 08-14-2019 Patient encounter procedure Kelechi Gage IY-SNCHK-Njclxw 310 IVF Work Phone: Start: 08-13-2019 Patient encounter procedure Kelechi Gage TK-GIPII-Cfscts 310 IVF Work Phone: Start: 08-12-2019 Patient encounter procedure Kelechi TONGDZ-ZXNWJ-Vawmem 310 IVF Work Phone: Start: 08-11-2019 Patient encounter procedure Kelechi TONGGP-EPZXY-Pvnuud 310 IVF Work Phone: Start: 08-09-2019 Patient encounter procedure Kelechi Gage TB-SUWNZ-Bclyxo 310 IVF Work Phone: Start: 08-07-2019 Patient encounter procedure Kelechi TONGDF-ACTRZ-Pmjosk 310 IVF Work Phone: Start: 08-04-2019 Patient encounter procedure Kelechi Gage CG-JFBTO-Zegybo 310 IVF Work Phone: Start: 07-07-2019 Patient encounter procedure Kelechi TONGZC-HENMC-Cyxfiq 310 IVF Work Phone: Start: 06-08-2019 Patient encounter procedure Kelechi TONGOG-NKMKB-Pocqrp 310 IVF Work Phone: Start: 05-17-2019 Patient encounter procedure Kelechi TONGTJ-SPFMV-Nuddro 310 IVF Work Phone: Start: 05-08-2019 Patient encounter procedure Kelechi TONGYV-PGLIF-Uevtqt 310 IVF Work Phone: Start: 05-05-2019 Patient encounter procedure Kelechi Gage KO-SDWUL-Pmmxnd 310 IVF Work Phone: Start: 04-13-2019 Patient encounter procedure Kelechi Gage SU-EKUBQ-Qfayrp 310 IVF Work Phone: Start: 04-11-2019 Patient encounter procedure Kelechi Gage YK-QKGZE-Oiphld 310 IVF Work Phone: Start: 03-20-2019 Patient encounter procedure Kelechi Gage VU-MGTJP-Ivkghk 310 IVF Work Phone: Start: 03-17-2019 Patient encounter procedure Kelechi Gage RD-WTNCA-Mdfsfs 310 IVF Work Phone: Start: 02-22-2019 Patient encounter procedure Kelechi Gage GR-YJUWQ-Ithfyf 310 IVF Work Phone: Start: 02-20-2019 Patient encounter procedure Kelechi TONGNA-GXHZG-Bdoppy 310 IVF Work Phone: Start: 02-13-2019 Patient encounter procedure [place] [place]: 02-08-2019 End: 02-12-2019 Patient encounter procedure Bruce Mayes [place] [place]: 01-19-2019 Patient encounter procedure Kelechi TONGTI-LKRFB-Cibqoh 310 IVF Work Phone: Patient encounter status Evelyn Perez Work Phone: WO-DZNBW-Hnairh 310 IVF Work Phone: Procedures Date Procedure [...] Iaad ia hepatitis b surface antigen King Guevara Start: 12-25-2019 Iadna chlamydia trac homatis amplified [...] Gage Start: 09-20-2019 Assay of progesterone Eve aguirre Too Start: 09-20-2019 Gonadotropin luteini zing hormone Kelecih Gage Start: 09-20-2019 IO Ultrasound, limit ed pelvic, follicle monitoring Kelechi Gage Start: 08-21-2019 IO Ultrasound, limit ed pelvic, follicle monitoring Kelechi Gage Extraction of wisdom tooth Eve aguirre Too Plan of Treatment Date Care Activity Detail Author Start: 02-07-2024 End: 02-07-2024 Patient encounter procedure 02/07/2024 9:40 AM EDT Routine [facility] [address] [facility] [place] [address] Demario Ribeiro DO [address] [place] [address] [facility] Start: 02-07-2024 End: 02-07-2024 Professional / ancillary services management 02/07/2024 9:00 AM EDT Ancillary Procedure [facility] [address] [place] [address] [facility] Start: 01-24-2024 End: 01-24-2024 Patient encounter procedure 01/24/2024 9:30 AM EDT Routine [facility] [address] [facility] [place] [place] [id number] Bere Steel PA [address] [place] [address] [facility] Start: 01-10-2024 End: 01-10-2024 Patient encounter procedure 01/10/2024 2:20 PM EST Routine [facility] [address] [place] [id number] Demario Ribeiro DO [address] [facility] [address] [place] [address] [facility] Start: 01-10-2024 End: 01-10-2024 Professional / ancillary services management 01/10/2024 2:00 PM EST Ancillary Procedure [facility] [address] [place] [id number] [facility] Start: 12-27-2023 End: 12-27-2024 US biophysical profile w non stress test US biophysical profile w non stress test Imaging Routine Hypothyroidism (acquired) (CMS/HCC) H/O blood clots Expected: 12/27/2023 (Approximate), Expires: 12/27/2024 [facility] Work Phone: Comment on above: Expected: 12/27/2023 (Approximate), Expires: 12/27/2024 Start: 12-27-2023 End: 12-27-2024 US for US OB SCAN FOR GROWTH Imaging Routine Hypothyroidism, unspecified type (CMS/HCC) Excessive growth affecting management of in third trimester, single or unspecified fetus Expected: 12/27/2023 (Approximate), Expires: 12/27/2024 [facility] Healthcare Comment on above: Expected: 12/27/2023 (Approximate), Expires: 12/27/2024 Start: 06-15-2023 Influenza vaccination Flu vacc ine (Season Ended) [facility] Start: 2021 Screening for malignant neoplasm of cervix [facility] Start: 07-25-2021 ULTRASOUND, Provider : OBGYRosenda IVF RDMS AR[place] 1,[facility], Status: Pen, Time: 9:00 AM ULTRASOUND, Provider: OBGYN IVF RDMS ARDEN 1,MG OBGYN, Status: Pen, Time: 9:00 AM FI-KGTDS-Byjafs 310 IVF Work Phone: Start: 07-16-2021 ULTRASOUND, Provider : OBGYN IVF RDMS [id number] 1,MG OBGYN, Status: Pen, Time: 1:00 PM ULTRASOUND, Provider: OBGYN IVF RDMS [id number] 1,[facility] OBGYN, Status: Pen, Time: 1:00 PM ZU-FIHOD-Ygylxv 310 IVF Work Phone: Start: 07-07-2021 ULTRASALIN, Provider : Miguel A Barrera, Status: Pen, Time: 10:00 AM ULTRASALIN, Provider: Miguel A Barrera, Status: Pen, Time: 10:00 AM PI-OKHMP-Pichle 310 IVF Work Phone: Start: 06-05-2020 MAC Imaging Order MG-PARACHUTE SUPERVISOR-MAC 1200 [place] Work Phone: Start: 11-16-2019 IO Ultrasound, -Reproductive Endocrinology-[facility] chastity 206 Work Phone: Start: 11-14-2019 Blood count complete auto&auto difrntl wbc Complete Blood Count + Differential QY-VKQBX-Vkcnxf 310 IVF Work Phone: Start: 11-14-2019 Comprehensive metabolic 2000 panel KP-CKKLL-Nsduiv 310 IVF Work Phone: Start: 11-02-2019 Gonadotropin chorion ic quantitative HCG, Beta Quantitative MP-Reproductive Endocrinology-[place] 206 Work Phone: Start: 10-11-2019 IO Ultrasound, limited pelvic, follicle monitoring IK-EYQVP-Pztaee 310 IVF Work Phone: Start: 10-05-2019 IO Ultrasound, limited pelvic, follicle monitoring DR-HLVJP-Fgxzuw 320 Work Phone: Start: 2012 Screening for malignant neoplasm of cervix Pap smear [facility] Start: 2010 DTaP/Tdap/Td vaccine (1 - Tdap) DTaP/Tdap/Td vaccine (1 - Tdap) [facility] Start: 2009 Hepatitis C screening Hepatitis C sc reen [facility] Start: 2006 HIV screening HIV screen [facility] Start: 2003 Depression Screen Depression Screen [facility] Start: 1992 Varicella vaccine (1 of 2 - 2-dose childhood series) Varicella vaccine (1 of 2 - 2-dose childhood series) [facility] Start: 03-02-1992 COVID-19 Vaccine (#1) COVID-19 Vacci ne (#1) [facility] Assay of estradiol Estradiol, Serum MG-PARACHUTE SUPERVISOR-[place] 310 IVF Work Phone: Comment on above: Approx [id number] Approx [id number] Approx [id number] Assay of progesterone Progesterone, Serum SH-PYMDI-Qnfdzi 310 IVF Work Phone: Comment on above: Approx [id number] Gonadotropin luteinizing hormone Luteinizing Hormone, Serum UW-RCOVI-Uzgxap 310 IVF Work Phone: Comment on above: Approx [id number] WH-LJLMS-Fnuejp 320 Work Phone: IO Ultrasound, l imited pelvic, follicle monitoring JY-XBTMU-Xrxntb 310 IVF Work Phone: Comment on above: Approx [id number] Approx [id number] Approx [id number] NEGATED: Highlighted row has been ruled out! Planned Goals not documented DP-VDQNF-Kmxupd 310 IVF Work Phone: Payers Date Payer Category Payer Self-pay 2016 Private Health Insurance [id number] 2016 Private Health Insurance [id number] 1991 Unknown [id number] 2.16.84 [id number] 1991 Unknown [id number] 2.16.84 [id number] 1991 Unknown [id number] 2.16.84 [id number] 1991 Unknown [id number] 2.16.84 [id number] 1991 Unknown [id number] 2.16.84 [id number] 1991 Unknown [id number] 2.16.84 [id number] 1991 Unknown [id number] 2.16.84 [id number] 1991 Unknown [id number] 2.16.84 [id number] 1991 Unknown [id number] 2.16.84 [id number] 1991 Unknown [id number] 2.16.84 [id number] 1991 Unknown [id number] 2.16.84 [id number] 1991 Unknown [id number] 2.16.84 0.1.757220.3.579.2.593 1990 Unknown [id number] 2.16.84 0.1.989090.3.579.2.593 1991 Unknown [id number] 2.16.84 0.1.316041.3.579.2.593 1991 Unknown [id number] 2.16.8 40.1.629088.3.579.2.173 1991 Unknown [id number] 2.16.8 40.1.736628.3.579.2.173 1991 Unknown [id number] 2.16. 840.1.562710.3.579.2.196 1991 Unknown [id number] 2.16. 840.1.841343.3.579.2.196 1991 Unknown [id number] 2.16.84 0.1.679088.3.579.2.1259 1991 Unknown [id number] 2.16.84 0.1.795240.3.579.2.1259 1991 Unknown [id number] 2.16.84 0.1.564511.3.579.2.1259 1991 Unknown [id number] 2.16.84 0.1.981284.3.579.2.1259 1991 Unknown [id number] 2.16.84 0.1.433329.3.579.2.1259 1991 Unknown [id number] 2.16.840 .1.177379.3.579.2.1259 1991 Unknown [id number] 2.16.840 .1.267472.3.579.2.1259 1959 Self-pay [id number] 1959 Unknown [id number] 1959 Unknown [id number] Unknown [id number] 2.16.8 40.1.601663.3.579.2.243 Unknown [id number] 2.16.8 40.1.028062.3.579.2.243 Unknown Unknown [id number] 2.16.8 40.1.373172.3.579.2.531 Social History Date Type Detail Facility - - ZI-XWVTF-Blrpvj 310 IVF Work Phone: Start: 05-11-2023 End: 12-27-2023 Never a smoker Never a smoker [facility] Comment on above: [facility]; Start: 05-11-2023 End: 09-06-2023 Sex Assigned At [facility] Start: 09-22-2022 End: 04-15-2023 Tobacco smoking status NHIS Never smoked tobacco [email or web address] Phone: Start: 09-22-2022 End: 04-15-2023 Tobacco use and exposure Smokeless tobacco non-user [email or web address] Phone: Start: 1990 Sex Assigned At Not on file B ON [email or web address] Phone: Start: 02-17-2023 End: 02-27-2023 Exposure to SARS-CoV-2 (event) Not sure [employer] Start: 12-27-2023 Alcohol intake Current drinke r [...] status health issues are not documented Disease DW-BMLDD-Imbyxh 310 IVF Work Phone: Mental Status Date Assessment Result Facility NEGATED: Highlighted row Cognitive function [Interpretation] Cognitive status health issues are not documented Disease TP-MPCCP-Dhoqjb 310 IVF Work Phone: History of Present [...] of: ELIZABETH Daly documented in this encounter [facility] Healthcare Evaluation note 12-27-2021 Note Date & [...] [facility] Care At Home document. [employer] Other Clinical Note 07-25-2021 Note Date & [...] care. Reviewed plan with Dr. Bruce Aburto, RESIDENTIAL CAREGIVER 07/25/2021 09:22 MD note: ob scan LOLLY: 03/05/2022. Gest. age [...] days. Plan reviewed by Dr. Healy. Petra Harjit RESIDENTIAL CAREGIVER 07/16/21 1409 TC to pt with quant = 3238 form yesterday; normal rise from 728 on 07/02; Pt doing well; no problems with Lovenox. PT transferred [facility] to schedule OB US for next week at [facility] [place]. Bere [address] RN 07/07/2021 11:47 Spoke with patient regarding LWJW=305. Pain=0. Patient states she will begin prometrium [...] Dr. Healy. RN to communicate. Petra Lombardi RESIDENTIAL CAREGIVER 07/02/21 1304 Active Problems 16 weeks gestation [...] directed. Peak F (more content not included)... [employer] Chief complaint Narrative - Reported 06-19-2021 Note [...] pandemic. Verbal consent obtained for telemedicine visit.[employer] TONGCB-TWHWH-Mxumus 310 IVF Work Phone: History of Present illness Narrative 06-15-2020 Note Date & Type Note Facility 06-15-2020 History of Present illness Narrative IVF Consult:Patient is a 30 year-old who presents for a FET [id number] Hx:06/2020: IOL @ 38 weeks due to [...] HSG - images reviewed from [facility] 08/2018Uterine Cavity Evaluation:Normal uterine cavity on [...] on therapeutic dosing when Genetic Screening Hx: [employer] foresight screen negativePartner History:Franklin Ashley 04/09/1989A in past year:2.8 cc125 mil/mL69% rexhrtcrLNB=917 million(recent IUI sample)Morph from original SA was 2.8% HU-PLYVW-Drpnvj 310 IVF Work Phone: Evaluation note Note Date & Type Note Facility Evaluation note Diagnosis Sprain of left ankle, unspecified ligament, initial encounter- Primary documented in this encounter [email or web address] Phone: Evaluation note Note Date & Type Note Facility Evaluation note Diagnosis Third trimester state, incidental First trimester state, incidental Hypothyroidism, unspecified type ([facility]) Hypothyroidism (acquired) ([facility]) Unspecified hypothyroidism H/O blood clots Excessive growth affecting management of in third trimester, single or unspecified fetus documented in this encounter [facility] Hospital Discharge instructions Attachments Note Date & Type Note Facility Hospital Discharge instructions The following attachments cannot be sent through Care Everywhere.Ankle Sprain ([facility])Ankle Sprain: Rehab Exercises ([facility])documented in this encounter [email or web address] Phone: Summary Purpose Family History No Family [...] DATE CREATED AUTHOR AUTHOR'S ORGANIZ ATION 11/12/2019 [facility] DATE CREATED AUTHOR AUTHOR'S ORGANIZ ATION 08/09/2020 [facility] CREATED AUTHOR AUTHOR'S ORGANIZ ATION 07/26/2021 [employer] DATE CREATED AUTHOR AUTHOR'S ORGANIZ ATION 01/21/2023 [facility] DATE CREATED AUTHOR AUTHOR'S ORGANIZ ATION 03/06/2023 [facility] DATE CREATED AUTHOR AUTHOR'S ORGANIZ ATION 07/12/2023 [facility] DATE CREATED AUTHOR AUTHOR'S ORGANIZ ATION 10/04/2023 [facility] DATE CREATED AUTHOR AUTHOR'S ORGANIZ ATION 01/15/2024 [facility] DATE CREATED AUTHOR AUTHOR'S ORGANIZ ATION 02/07/2024 [facility] dical Specialists EPIC REASON FOR VISIT (unrecogniz ed section and content) Reason Comments Ankle Pain Rolled ankle during morning run. Swelling to lateral ankle. 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 Reason Comments Routine Visit Care Teams (unrecognized sec tion and content) Respooler Relationship Specialty Start Date End Date Evelyn Perez [address] [place] [address] PCP - General Pediatrics 09/22/22 Respooler Relationship Specialty Start Date End Date Jesse Regan MD [address] [place] [address] PCP - General Family Medicine 11/30/23 FOR [...] BE BASED ON THE PRIMARY CLINICAL RECORDS. [employer] provides no warranty or guarantee of the accuracy or completeness of information in this document.
[2024-02-10 10:16] VITALS: BP 110/64; PULSE 83
== END 2024-02-10 11:00 | disposition home or self-care (01) ==
LOC: FBCO 07:12 → FBC 10:08
PROVIDERS: Visit Provider Obstetrics & Gynecology
DX: O99.283 Endocrine, nutritional and metabolic diseases complicating pregnancy, third trimester (principal)
CPT/HCPCS: 59025

== ENCOUNTER 2024-02-15 08:00 | Outpatient (OUT) | payer OTHER, SELFPAY ==
--- NOTE | 2024-02-15 | US_ITS ---
[address] [address] Patient Name: ELVIN STUART MRN: [facility]:[id number] date: 1990 Sex: F Assigned Patient Location: [facility] Current Patient Location: [facility] Accession/Order Number: [id number] Exam Date: 02/15/2024 10:12 Report Date: 02/15/2024 11:05 At the request of: RADAMES CHAUHAN Procedure: US OB BPP w non-stress EXAMINATION: US OB BPP w non-stress HISTORY: HYPOTHYROIDISM E03.9 COMPARISON: Ultrasound OB biophysical 02/07/2024 TECHNIQUE: Ultrasound biophysical profile was performed in the radiology department. BREATHING MOVEMENTS: 2.0 GROSS BODY MOVEMENTS: 2.0 TONE: 2.0 QUALITATIVE AMNIOTIC FLUID VOLUME: 2.0 PRESENTATION: CEPHALIC HEART RATE: 129.2 bpm bpm. AMNIOTIC FLUID VOLUME: 15.4 cm GESTATIONAL AGE: 35 weeks 3 days CONCLUSION: Total biophysical profile score 8.0. Electronically authenticated by: BLU FELIPE Date: 02/15/2024 11:05
--- OUTSIDE RECORDS SUMMARY | 2024-02-15 08:04 | XMS_ITS | CCD ---
Author Organization [facility] Care Team Providers Care Esthetic Dermatologist Name Role Phone Bruce Mayes Attending Unavailable [...] HER Unavailable Unavaila ble OBGYN IVF RDMS [id number] 1, MG OBGYN Unavailable Unavailable Lapkathrine King Unavailable Unavailable Shahla Healy Unavailable Unavailable January, Jami Unavailable Unavailable Evelyn Perez Unavailable [phone] Unavailable Unavailable Unavailable Unavailable Sabina Barnhart Unavailable [...] Unavailable Jesse Regan MD Primary Care Provider [phone] [facility], Zoya Cheung Attending Evelyn Robertson MD Primary Care Zamzam vailasánchez Perez MD, Evelyn Gracia Primary Care Zamzam vailable Link [employer] COMPENSATION ANALYST, Zoya Cheung Attending Zamzamva DEMARIO Hoang Attending Unavailable BERE STEEL Attending Unavailable ELSA, BERE Attending Unavailable DEMARIO RIBEIRO Attending Unavailable BERE STEEL Attending Unavailable DEMARIO RIBEIRO Attending Unavailable DEMARIO RIBEIRO Attending Unavailable Allergies Allergy Classification Reported Allergen(s) Allergy Type Date of Onset Reaction(s) Facility Progesterone (2 sources) Progesterone; Translations: [Progesterone OIL] Drug Allergy [id number] n 310 IVF Work Phone: (16 sources) Progesterone; Translations: [Progesterone OIL] Drug Allergy 2 [facility] (2 sources) sesame seed extract Drug Allergy [facility] (2 sources) Progesterone Drug Allergy 2 [facility] (1 source) No Known Medication Allergies; Translations: [...] Kelechi Gage MD Start : 14-Aug-2019 Active [id number] 200 actuat albuterol 0.09 mg/actuat metered dose [...] DO Start : 19-Jan-2019 Active BD Disp [place] 27G X 1/2 (19 sources) Start: 10-03-2019 BD Disp Needle s 27G X 1/2 USE DIRECTED. Quantity: 2 Refills: 2 Shahla Healy MD Start : 03-Oct-2019 Active chorionic gonadotropin 51137 unt/ml injectable solution (19 sources) Gonadotropin Start: 10-03-2019 Chorionic Gonadotropin 63394 UNIT Intramuscular Solution Reconstituted USE DIRECTED. Quantity: [...] Start : 25-Dec-2019 Active Peak Flow Meter [place] [facility] Device (3 sources) Start: 01-23-2020 Peak Flow Mete r [place] Device USE DIRECTED. Quantity: 1 Refills: [...] refills. Continue with anticoagulation as prescribed by J2EE SOFTWARE ENGINEER, patient is currently 30 weeks gestation. Follow-up [...] embolism Historical No qualifying data Procedure/Surgical History [place] Teeth Removal (2005) IVF (11/15/2018) Medications Dulera [...] Link Zoya PERKINS 01/10/24 12:40 EST Normal [facility] Phone Note - Heme Onc-medica tion questionon 07-12-2023 Phone Note - Heme Onc-medication question Phone Call Information: Patient Demographics: Name: KIARA ASHLEY Date: 1990 Address: [address] [place] [address] Date and Time: 12-Jul-2023 09:31 Caller Information: call from Call From: patient Caller Name: Kiara Primary Phone Number: [phone] Reason for Call: Reason for Callmedication question Message: Message: Patient found out yesterday that she is so she will need to double her Lovenox Asking for new RX Caller Informed Of: Per Dr. Mayes: she needs lovenox 40 mg SC BID for first trimester Team Communication: Clinician note: contacted patient Disposition: Rx sent by watAgamee Team Communications: Spoke with the patient. States she is positive for . Provided update from Dr. Mayes above. Pt asked for script to be sent to [facility]. Script sent. Pt had no further questions [...] 09:57 by Harmony Ross (N MGR) Normal [facility] XR ANKLE LEFT (MIN 3 [...] Dario William MD 02/27/23 Final result Normal [facility] 1. No acute osseous abnormality involving the left ankle. [facility] EXAMINATION: THREE XRAY VIEWS OF THE LEFT ANKLE 02/27/2023 11:46 am COMPARISON: None. HISTORY: ORDERING SYSTEM PROVIDED HISTORY: pain, swelling TECHNOLOGIST PROVIDED HISTORY: pain, swelling FINDINGS: The bone mineralization is within normal limits. The ankle mortise is stable. No acute fractures or dislocations are seen. There is no soft tissue swelling. [facility] Dario William MD - 02/27/2023 EXAMINATION: [...] acute osseous abnormality involving the left ankle. [employer] Phone: Radiology Study observation (narrative) [employer] Phone: XR ANKLE LEFT (MIN 3 VIEWS)O rdered By: Dario Stewart on 02-27-2023 [employer] Phone: PAP ACOG PANEL 2: 30 to 65on 01-19-2023 . . Normal [facility] Comment on above: Result Comment: Perf ormed at: WB Performed By: #### [id number] #### [facility] [address] [address] [address] Claire Mayes Age Gdln ACOG Testing 31- Normal [facility] Comment on above: Performed By: #### [id number] #### [facility] [address] [address] [address] Claire Mayes DIAGNOSIS: Comment Normal [facility] Comment on above: Result Comment: NEGA TIVE FOR INTRAEPITHELIAL LESION OR MALIGNANCY. Performed at: WB Performed By: #### [id number] #### [facility] [address] [address] [address] Claire Mayes HPV Aptima Negative Normal Negative [facility] Comment on above: Result Comment: This nucleic acid amplification test detects fourteen high-risk HPV types (16,18,31,33,35,39,45,51,52,56,58,59,66,68) without differentiation. Performed at: =G Performed By: #### [id number] #### [facility] [address] [address] [address] Claire Mayes HPV Genotype Reflex Comment Normal [facility] Comment on above: Result Comment: Crit eria not met, HPV Genotype not performed. Performed at: WB Performed By: #### [id number] #### [facility] [address] [address] [address] Claire Mayes Methodology: Comment Normal [facility] Comment on above: Result Comment: This liquid based ThinPrep(R) pap test was screened with the use of an image guided system. Performed at: WB Performed By: #### 4 [id number] #### [facility] [address] [place] [address] Dr. Claire Mayes Note: Comment Normal [facility] Comment on above: Result Comment: The Pap smear is a screening test designed to aid in the detection of premalignant and malignant conditions of the uterine cervix. It is not a diagnostic procedure and should not be used as the sole means of detecting cervical cancer. Both false-positive and false-negative reports do occur. . Performed at: WB Performed By: #### [id number] #### [facility] [address] [place] [address] Dr. Claire Mayes Performed by: Comment Normal [facility] Comment on above: Result Comment: Sherlyn Wright, Media Account Executive (ASCP) Performed at: WB Performed By: #### [id number] #### [facility] [address] [place] [address] Dr. Claire Mayes Specimen adequacy: Comment Normal [facility] Comment on above: Result Comment: Sati sfactory for evaluation. No endocervical component is identified. Performed at: WB Performed By: #### [id number] #### [facility] [address] [place] [address] Dr. Claire Mayes CBC with Diffon 09-22-2022 Abs. Basophil 0.03 k/uL Normal 0.00-0.20 [facility] Comment on above: Performed By: #### L BJ BUCK, CP #### [facility] [address] [place] [address] Dr. [place] [id number] Beverage Host: Jesse Curry MD Abs.Imm.Granulocy te 0.04 k/uL Normal 0.00-0.30 [facility] Comment on above: Performed By: #### L BJ BUCK, CP #### [facility] [address] [place] [id number] Beverage Host: Jesse Curry MD Abs.Neutrophil (Seg) 12.54 k/uL High 1.50-8.10 [facility] Comment on above: Performed By: #### L IP, CDP, CP #### [facility] [address] [place], [place] [address] Beverage Host: Jesse Curry MD Basophils/100 WBC (Bld) 0 % Normal 0-2 [facility] Comment on above: Performed By: #### L IP, CDP, CP #### [address] [place], [place] [address] Beverage Host: Jesse Curry MD Eosinophils (Bld) [#/Vol] 0.16 10*3/uL Normal 0.00-0.44 [facility] Comment on above: Performed By: #### L IP, CDP, CP #### [address] [place], [place] [address] Beverage Host: Jesse Curry MD Eosinophils/100 WBC (Bld) 1 % Normal 1-4 [facility] Comment on above: Performed By: #### L IP, CDP, CP #### [address] Lawson, [facility]83 Beverage Host: Jesse Curry MD Erythrocyte distribution width (RBC) [Ratio] 13.6 % Normal 11.8-14.4 [facility] Comment on above: Performed By: #### L IP, CDP, CP #### [address] [place], [place] [address] Beverage Host: Jesse Curry MD Hematocrit (Bld) [Volume fraction] 46.4 % Normal 36.3-47.1 [facility] Comment on above: Performed By: #### L IP, CDP, CP #### [address] [place], [facility] Beverage Host: Jesse Curry MD Hemoglobin (Bld) [Mass/Vol] 15.6 g/dL High 11.9-15.1 [facility] Comment on above: Performed By: #### L IP, CDP, CP #### [facility] [address] [place], [place] [id number] Beverage Host: Jesse Curry MD Immature granulocytes/100 WBC (Bld) 0 % Normal 0 [facility] Comment on above: Performed By: #### L IP, CDP, CP #### [address] Lawson, [facility] Beverage Host: Jesse Curry MD Lymphocytes (Bld) [#/Vol] 0.98 10*3/uL Low 1.10-3.70 [facility] Comment on above: Performed By: #### L IP, CDP, CP #### [address] [place], [facility] Beverage Host: Jesse Curry MD Lymphocytes/100 WBC (Bld) 7 % Low 24-43 [facility] Comment on above: Performed By: #### L IP, CDP, CP #### [address] [place], [facility] Beverage Host: Jesse Curry MD MCH (RBC) [Entitic mass] 30.4 pg Normal 25.2-33.5 [facility] Comment on above: Performed By: #### L IP, CDP, CP #### [address] [place], [facility] Beverage Host: Jesse Curry MD MCHC (RBC) [Mass/Vol] 33.6 g/dL Normal 28.4-34.8 [facility] Comment on above: Performed By: #### L IP, CDP, CP #### [address] [place] [address] Beverage Host: Jesse Curry MD MCV (RBC) [Entitic vol] 90.3 fL Normal 82.6-102.9 [facility] Comment on above: Performed By: #### L IP, CDP, CP #### [address] [place], [facility] Beverage Host: Jesse Curry MD Monocytes (Bld) [#/Vol] 0.58 10*3/uL Normal 0.10-1.20 [facility] Comment on above: Performed By: #### L IP, CDP, CP #### [facility] [address] [place], [facility]83 Beverage Host: Jesse Curry MD Monocytes/100 WBC (Bld) 4 % Normal 3-12 [facility] Comment on above: Performed By: #### L IP, CDP, CP #### [address] [place], [place] [address] Beverage Host: Jesse Curry MD Neutrophil (Seg) 88 % High 36-65 [facility] Comment on above: Performed By: #### L IP, CDP, CP #### [address] Lawson, [facility] Beverage Host: Jesse Curry MD NRBC Automated 0.0 per 100 WBC Normal 0.0 [facility] Comment on above: Performed By: #### L IP, CDP, CP #### [address] [place], [facility]83 Beverage Host: Jesse Curry MD Platelet mean volume (Bld) [Entitic vol] 9.9 fL Normal 8.1-13.5 [facility] Comment on above: Performed By: #### L IP, CDP, CP #### [facility] [address] [place] [address] Dr. [place], [facility] Beverage Host: Jesse Curry MD Platelets (Bld) [#/Vol] 299 10*3/uL Normal 138-453 [facility] Comment on above: Performed By: #### L IP, CDP, CP #### [facility] [address] [place], [facility] Beverage Host: Jesse Curry MD RBC (Bld) [#/Vol] 5.14 10*6/uL High 3.95-5.11 [facility] Comment on above: Performed By: #### L BJ BUCK, CP #### [facility] [address] [place], [place] [id number] Beverage Host: Jesse Curry MD WBC (Bld) [#/Vol] 14.3 10*3/uL High 3.5-11.3 [facility] Comment on above: Performed By: #### L BJ BUCK, CP #### [facility] [address] [place] [address] Beverage Host: Jesse Curry MD CT ABDOMEN PELVIS W [...] A Maldonado DO 09/22/22 Final result Normal [facility] Comp Metabolic Profon 2021 Albumin [Mass/Vol] 4.7 g/dL Normal 3.5-5.2 [facility] Comment on above: Performed By: #### L IP, CDP, CP #### [facility] [address] [place] [address] Beverage Host: Jesse Curry MD Albumin/Glob Ratio 2.0 Normal 1.0-2.5 [facility] Comment on above: Performed By: #### L IP, CDP, CP #### [address] [place] [address] Beverage Host: Jesse Curry MD Alkaline Phos 77 U/L Normal 35-104 [facility] Comment on above: Performed By: #### L IP, CDP, CP #### [address] [place] [address] Beverage Host: Jesse Curry MD ALT [Catalytic activity/Vol] 10 U/L Normal 5-33 [facility] Comment on above: Performed By: #### L IP, CDP, CP #### [address] [place] [address] Beverage Host: Jesse Curry MD Anion gap [Moles/Vol] 12 mmol/L Normal 9-17 [facility] Comment on above: Performed By: #### L IP, CDP, CP #### [address] [place] [address] Beverage Host: Jesse Curry MD AST [Catalytic activity/Vol] 14 U/L Normal <32 [facility] Comment on above: Performed By: #### L IP, CDP, CP #### [facility] [address] [place], [place] [phone] Beverage Host: Jesse Curry MD Bilirubin [Mass/Vol] 0.6 mg/dL Normal 0.3-1.2 [facility] Comment on above: Performed By: #### L IP, CDP, CP #### [facility] [address] [place], [place] [phone] Beverage Host: Jesse Curry MD BUN/CRE Ratio 31 High 9-20 [facility] Comment on above: Performed By: #### L IP, CDP, CP #### [address] [place], [place] [phone] Beverage Host: Jesse Curry MD Calcium [Mass/Vol] 9.8 mg/dL Normal 8.6-10.4 [facility] Comment on above: Performed By: #### L IP, CDP, CP #### [facility] [address] [place] [address] Dr. [place], [place] [phone] Beverage Host: Jesse Curry MD Chloride [Moles/Vol] 104 mmol/L Normal 98-107 [facility] Comment on above: Performed By: #### L IP, CDP, CP #### [facility] [address] [place] [address] Dr. [place], [place] [phone] Beverage Host: Jesse Curry MD CO2 [Moles/Vol] 22 mmol/L Normal 20-31 [facility] Comment on above: Performed By: #### L IP, CDP, CP #### [facility] [address] [place] [address] Dr. [place], [place] [phone] Beverage Host: Jesse Curry MD Creatinine [Mass/Vol] 0.85 mg/dL Normal 0.50-0.90 [facility] Comment on above: Performed By: #### L IP, CDP, CP #### [facility] [address] [place] [address] Dr. [place], [place] [phone] Beverage Host: Jesse Curry MD GFR/1.73 sq M.predicted among non-blacks MDRD (S/P/Bld) [Vol rate/Area] mL/min/{1.73_m2} Normal >60 [facility] Comment on above: Result Comment: [...] By: #### L BJ BUCK, CP #### [address] [place] [address] Beverage Host: Jesse Curry MD Glucose [Mass/Vol] 109 mg/dL High 70-99 [facility] Comment on above: Performed By: #### L BJ BUCK, CP #### [address] [place] [address] Beverage Host: Jesse Curry MD Potassium [Moles/Vol] 4.0 mmol/L Normal 3.7-5.3 [facility] Comment on above: Performed By: #### L CIELO CDP, CP #### [address] [place] [address] Beverage Host: Jesse Curry MD Protein [Mass/Vol] 7.1 g/dL Normal 6.4-8.3 [facility] Comment on above: Performed By: #### L CIELO CDP, CP #### [address] [place] [address] Beverage Host: Jesse Curry MD Sodium [Moles/Vol] 138 mmol/L Normal 135-144 [facility] Comment on above: Performed By: #### L IP CDP, CP #### [address] [place] [address] Beverage Host: Jesse Curry MD Urea nitrogen [Mass/Vol] 26 mg/dL High 6-20 [facility] Comment on above: Performed By: #### L BJ BUCK, CP #### [facility] [address] [place] [address] Beverage Host: Jesse Curry MD HCG, ,Urineon 09-22 Beta HCG ( test) Ql (U) Negative Normal NEG [facility] Comment on above: Result Comment: Spec imens with hCG levels near the threshold of the test (25 mIU/mL) may give a negative or indeterminate result. In such cases, another test should be performed with a new specimen in 48-72 hours. If early is suspected clinically in this setting, correlation with quantitative serum b-hCG level is suggested. [facility] has confirmed the use of plasma for this test. This has not been cleared or approved by the U.[place]. Food and Drug Administration. The FDA has determined that such clearance is not necessary. Performed By: #### U HCG #### [facility] [address] [place] [address] Beverage Host: Jesse Curry MD Lactic Acidon 09-22-2022 Lactate [Moles/Vol] 1.8 mmol/L Normal 0.5-2.2 [facility] Comment on above: Performed By: #### L ACTIC #### [facility] [address] [place] [address] Beverage Host: Jesse Curry MD Lipaseon 09-22-2022 Lipase [Catalytic activity/Vol] 39 U/L Normal 13-60 [facility] Comment on above: Performed By: #### L BJ BUCK, CP #### [facility] [address] [place] [address] Beverage Host: Jesse Curry MD UA w/Reflex Cultureon 2021 Bilirubin, SemiQt,Ur Negative Normal NEG [facility] Comment on above: Performed By: #### U MICAO, UAX #### [facility] [address] [place] [address] Dr. [place], [place] [phone] Beverage Host: Jesse Curry MD Blood, Urine Negative Normal NEG [facility] Comment on above: Performed By: #### U MICAO, UAX #### [facility] [address] [place] [address] Dr. [place], [place] [phone] Beverage Host: Jesse Curry MD Clarity (U) Clear Normal CLEAR [facility] Comment on above: Performed By: #### U MICAO, UAX #### [address] [place], [place] [phone] Beverage Host: Jesse Curry MD Color (U) Yellow Normal YEL [facility] Comment on above: Performed By: #### U MICAO, UAX #### [facility] [address] [place] [address] Dr. [place], [place] [phone] Beverage Host: Jesse Curry MD Glucose Ql (U) Negative Normal NEG [facility] Comment on above: Performed By: #### U MICAO, UAX #### [address] [place], [place] [phone] Beverage Host: Jesse Curry MD Ketones Ql (U) Negative Normal NEG [facility] Comment on above: Performed By: #### U MICAO, UAX #### [facility] [address] [place] [address] Dr. [place], [place] [phone] Beverage Host: Jesse Curry MD Leukocyte esterase Test strip Ql (U) Negative Normal NEG [facility] Comment on above: Performed By: #### U MICAO, UAX #### [address] [place], [place] [phone] Beverage Host: Jesse Curry MD Nitrite,Ur Negative Normal NEG [facility] Comment on above: Performed By: #### U MICAO, UAX #### [facility] [address] [place] [address] Dr. [place], [place] [phone] Beverage Host: Jesse Curry MD PH,Ur 8.0 Normal 5.0-9.0 [facility] Comment on above: Performed By: #### U MICAO, UAX #### [facility] [address] [place] [address] Dr. [place], [place] [phone] Beverage Host: Jesse Curry MD Protein Ql (U) Negative Normal NEG [facility] Comment on above: Performed By: #### U MICAO, UAX #### [address] [place], [place] [phone] Beverage Host: Jesse Curry MD Spec. Raymond,Ur 1.020 Normal 1.010-1.020 [facility] Comment on above: Performed By: #### U MICAO, UAX #### [facility] [address] [place] [address] Dr. [place], [place] [phone] Beverage Host: Jesse Curry MD Urobilinogen,Ur Normal Normal NORM [facility] Comment on above: Performed By: #### U MICAO, UAX #### [address] [place], [place] [phone] Beverage Host: Jesse Curry MD Urinalysis,Microon 2 Bacteria TRACE Abnormal NONE [facility] Comment on above: Performed By: #### U MICAO, UAX #### [facility] [address] [place] [address] Dr. [place], [place] [phone] Beverage Host: Jesse Curry MD Epithelial cells LM Ql (Urine sed) 0 TO 2 Normal 0-25 [facility] Comment on above: Performed By: #### U MICAO, UAX #### [facility] [address] [place] [address] [place] [address] Beverage Host: Jesse Curry MD Urine RBC's None Normal 0-2 [facility] Comment on above: Performed By: #### U MICAO, UAX #### [facility] [address] [place], [place] [phone] Beverage Host: Jesse Curry MD Urine WBC's 0 TO 2 Normal 0-5 [facility] Comment on above: Performed By: #### U DARIO, UAX #### [facility] [address] [place] [address] Beverage Host: Jesse Curry MD CBC AUTO DIFFon 02-20-2022 BASO # 0.1 103/ul Normal 0.0-0.1 [facility] Comment on above: Performed By: #### C BC #### [facility] [address] [place] [address] Dr. Claire Mayes Basophils/100 WBC (Bld) 0.8 % Normal 0.2-2.0 [facility] Comment on above: Performed By: #### C BC #### [facility] [address] [place] [address] Dr. Claire Mayes EO # 0.2 103/ul Normal 0.0-0.7 [facility] Comment on above: Performed By: #### C BC #### [facility] [address] [place] [address] Dr. Claire Mayes Eosinophils/100 WBC (Bld) 0.9 % Normal 0.9-7.0 [facility] Comment on above: Performed By: #### C BC #### [facility] [address] [place] [address] Dr. Claire Mayes Erythrocyte distribution width (RBC) [Ratio] 15.0 % Normal 11.0-15.0 [facility] Comment on above: Performed By: #### C BC #### [facility] [address] [place] [address] Dr. Claire Mayes Hematocrit (Bld) [Volume fraction] 31.3 % Critically low 36.0-48.0 [facility] Comment on above: Performed By: #### C BC #### [facility] [address] [place] [address] Dr. Claire Mayes Hemoglobin (Bld) [Mass/Vol] 10.3 g/dL Critically low 12.0-16.0 [facility] Comment on above: Performed By: #### C BC #### [facility] [address] [place] [address] Dr. Claire Mayes IG # 0.21 10e3/ul Critically high 0.00-0.03 [facility] Comment on above: Performed By: #### C BC #### [facility] [facility] [address] [address] [address] Claire Mayes IG % 1.3 % Critically high 0.0-0.5 [facility] Comment on above: Performed By: #### C BC #### [facility] [address] [place] [address] Dr. Claire Mayes LYMPH # 2.1 103/ul Normal 1.2-3.8 [facility] Comment on above: Performed By: #### C BC #### [facility] [address] [place] [address] Dr. Claire Mayes Lymphocytes/100 WBC (Bld) 12.6 % Critically low 20.5-60.0 [facility] Comment on above: Performed By: #### C BC #### [facility] [address] [place] [address] Dr. Cliare Mayes MANUAL DIFF REQ NO Normal [facility] Comment on above: Performed By: #### C BC #### [facility] [address] [place] [address] Dr. Claire Mayes MCH (RBC) [Entitic mass] 29.8 pg Normal 26.7-34.0 [facility] Comment on above: Performed By: #### C BC #### [facility] [address] [place] [address] Dr. Claire Mayes MCHC (RBC) [Mass/Vol] 32.9 g/dL Normal 29.9-35.2 [facility] Comment on above: Performed By: #### C BC #### [facility] [address] [place] [address] Dr. Claire Mayes MCV (RBC) [Entitic vol] 90.5 fL Normal 81.0-99.0 [facility] Comment on above: Performed By: #### C BC #### [facility] [address] [place] [address] Dr. Claire Mayes MONO # 0.8 103/ul Normal 0.3-0.8 [facility] Comment on above: Performed By: #### C BC #### [facility] [address] [place] [address] Dr. Claire Mayes Monocytes/100 WBC (Bld) 5.1 % Normal 1.7-12.0 [facility] Comment on above: Performed By: #### C BC #### [facility] [address] [place] [address] Dr. Claire Mayes NEUT # 13.2 103/ul Critically high 1.4-6.5 [facility] Comment on above: Performed By: #### C BC #### [facility] [address] [place] [address] Dr. Claire Mayes Neutrophils/100 WBC (Bld) 79.3 % Critically high 43.0-75.0 [facility] Comment on above: Performed By: #### C BC #### [facility] [address] [place] [address] Dr. Claire Mayes Platelet mean volume (Bld) [Entitic vol] 10.4 fL Normal 9.5-13.5 [facility] Comment on above: Performed By: #### C BC #### [facility] [address] [place] [address] Dr. Claire Mayes PLT 233 103/ul Normal 150-450 [facility] Comment on above: Performed By: #### C BC #### [facility] [address] [place] [address] Dr. Claire Mayes RBC 3.46 106/ul Critically low 4.20-5.40 [facility] Comment on above: Performed By: #### C BC #### [facility] [address] [place] [address] Dr. Claire Mayes WBC 16.6 103/ul Critically high 4.0-11.0 [facility] Comment on above: Performed By: #### C BC #### [facility] [address] [address] [address] Claire Mayes CBC AUTO DIFFon 02-18-2022 BASO # 0.1 103/ul Normal 0.0-0.1 [facility] Comment on above: Performed By: #### C BC #### [facility] [address] [address] [address] Claire Mayes Basophils/100 WBC (Bld) 0.7 % Normal 0.2-2.0 [facility] Comment on above: Performed By: #### C BC #### [facility] [address] [place] [address] Dr. Claire Mayes EO # 0.2 103/ul Normal 0.0-0.7 [facility] Comment on above: Performed By: #### C BC #### [facility] [address] [place] [address] Dr. Claire Mayes Eosinophils/100 WBC (Bld) 1.2 % Normal 0.9-7.0 [facility] Comment on above: Performed By: #### C BC #### [facility] [address] [place] [address] Dr. Claire Mayes Erythrocyte distribution width (RBC) [Ratio] 15.0 % Normal 11.0-15.0 [facility] Comment on above: Performed By: #### C BC #### [facility] [address] [place] [address] Dr. Claire Mayes Hematocrit (Bld) [Volume fraction] 35.1 % Critically low 36.0-48.0 [facility] Comment on above: Performed By: #### C BC #### [facility] [address] [place] [address] Dr. Claire Mayes Hemoglobin (Bld) [Mass/Vol] 11.8 g/dL Critically low 12.0-16.0 [facility] Comment on above: Performed By: #### C BC #### [facility] [address] [place] [address] Dr. Claire Mayes IG # 0.30 10e3/ul Critically high 0.00-0.03 [facility] Comment on above: Performed By: #### C BC #### [facility] [address] [place] [address] Dr. Claire Mayes IG % 1.9 % Critically high 0.0-0.5 [facility] Comment on above: Performed By: #### C BC #### [facility] [address] [place] [address] Dr. Claire Mayes LYMPH # 2.9 103/ul Normal 1.2-3.8 [facility] Comment on above: Performed By: #### C BC #### [facility] [address] [place] [address] Dr. Claire Mayes Lymphocytes/100 WBC (Bld) 18.5 % Critically low 20.5-60.0 [facility] Comment on above: Performed By: #### C BC #### [facility] [address] [place] [address] Dr. Claire Mayes MANUAL DIFF REQ NO Normal [facility] Comment on above: Performed By: #### C BC #### [facility] [address] [place] [address] Dr. Claire Mayes MCH (RBC) [Entitic mass] 30.2 pg Normal 26.7-34.0 [facility] Comment on above: Performed By: #### C BC #### [facility] [address] [place] [address] Dr. Claire Mayes MCHC (RBC) [Mass/Vol] 33.6 g/dL Normal 29.9-35.2 [facility] Comment on above: Performed By: #### C BC #### [facility] [address] [place] [address] Dr. Claire Mayes MCV (RBC) [Entitic vol] 89.8 fL Normal 81.0-99.0 [facility] Comment on above: Performed By: #### C BC #### [facility] [address] [place] [address] Dr. Claire Mayes MONO # 0.7 103/ul Normal 0.3-0.8 [facility] Comment on above: Performed By: #### C BC #### [facility] [address] [address] [address] Claire Mayes Monocytes/100 WBC (Bld) 4.7 % Normal 1.7-12.0 [facility] Comment on above: Performed By: #### C BC #### [facility] [address] [address] [address] Claire Mayes NEUT # 11.3 103/ul Critically high 1.4-6.5 [facility] Comment on above: Performed By: #### C BC #### [facility] [address] [address] [address] Claire Mayes Neutrophils/100 WBC (Bld) 73.0 % Normal 43.0-75.0 [facility] Comment on above: Performed By: #### C BC #### [facility] [address] [place] [address] Dr. Claire Mayes Platelet mean volume (Bld) [Entitic vol] 10.8 fL Normal 9.5-13.5 [facility] Comment on above: Performed By: #### C BC #### [facility] [address] [address] [address] Claire Mayes PLT 233 103/ul Normal 150-450 [facility] Comment on above: Performed By: #### C BC #### [facility] [address] [place] [address] Dr. Claire Mayes RBC 3.91 106/ul Critically low 4.20-5.40 [facility] Comment on above: Performed By: #### C BC #### [facility] [address] [address] [address] Claire Mayes WBC 15.5 103/ul Critically high 4.0-11.0 [facility] Comment on above: Performed By: #### C BC #### [facility] [address] [address] [address] Claire Mayes Covid-19 PCR ([facility])on SARS-CoV-2 (COVID-19) RNA FERDINAND+probe Ql (Unsp spec) Not detected Normal NOT DETECTED [facility] Comment on above: Result Comment: [...] for this test is supported by the [place] of Health and Human Service's declaration that [...] used). Performed By: #### C VDTBH #### [facility] [address] [place] [address] Dr. Claire Mayes DRUG SCREEN RAPID (URINE)on 02-18-2022 AMP Negative Normal NEGATIVE [facility] Comment on above: Performed By: #### D RUGRPD #### [facility] [address] [place] [address] Dr. Clarie Mayes BAR Negative Normal NEGATIVE [facility] Comment on above: Performed By: #### D RUGRPD #### [facility] [address] [place] [address] Dr. Claire Mayes BUP Negative Normal NEGATIVE [facility] Comment on above: Performed By: #### D RUGRPD #### [facility] [address] [place] [address] Dr. Claire Mayes BZO Negative Normal NEGATIVE [facility] Comment on above: Performed By: #### D RUGRPD #### [facility] [address] [place] [address] Dr. Claire Mayes KIT Negative Normal NEGATIVE [facility] Comment on above: Performed By: #### D RUGRPD #### [facility] [address] [place] [address] Dr. Claire Mayes CUT-OFFS SEE BELOW Normal [facility] Comment on above: Result Comment: [...] ng/mL Performed By: #### D RUGRPD #### [facility] [address] [place] [address] Dr. Claire Mayes DRUG CUT HEADER DRUG CLASS TEST SYST EM CUT-OFF CONCENTRATIONS ARE FOLLOWS: Normal [facility] Comment on above: Performed By: #### D RUGRPD #### [facility] [address] [place] [address] Dr. Claire Mayes mAMP Negative Normal NEGATIVE [facility] Comment on above: Performed By: #### D RUGRPD #### [facility] [address] [place] [address] Dr. Claire Mayes MTD Negative Normal NEGATIVE [facility] Comment on above: Performed By: #### D RUGRPD #### [facility] [address] [place] [address] Dr. Claire Mayes OPI Negative Normal NEGATIVE [facility] Comment on above: Performed By: #### D RUGRPD #### [facility] [address] [place] [address] Dr. Claire Mayes OXY Negative Normal NEGATIVE [facility] Comment on above: Performed By: #### D RUGRPD #### [facility] [address] [place] [address] Dr. Claire Mayes PCP Negative Normal NEGATIVE [facility] Comment on above: Performed By: #### D RUGRPD #### [facility] [address] [address] [address] Claire Mayes PPX Negative Normal NEGATIVE [facility] Comment on above: Performed By: #### D RUGRPD #### [facility] [address] [address] [address] Claire Mayes TCA Negative Normal NEGATIVE [facility] Comment on above: Performed By: #### D RUGRPD #### [facility] [address] [place] [address] Dr. Claire aMyes THC Negative Normal NEGATIVE [facility] Comment on above: Performed By: #### D RUGRPD #### [facility] [address] [place] [address] Dr. Claire Mayes TYPE AND SCREENon 02-18-2022 TYPE AND SCREEN Negative Normal [facility] Comment on above: Performed By: #### T NS #### [facility] [address] [place] [address] Dr. Claire Mayes US PREG BIOPHY W [...] by: JESSE THOMAS Date: 2022-02-17 14:27 Normal [facility] US PREG BIOPHY W NON [...] by: BLU FELIPE Date: 2022-02-10 16:40 Normal [facility] GROUP B STREP CULTUREon 01-14 S. agalactiae Ag Ql (Unsp spec) Culture Observations: Beta Strep called to Belgica Lange at office 02/04/22 @[address] [place] [address] Isolate 1 Streptococcus agalactiae Heavy growth of ORGANISM 1 Streptococcus agalactiae ANTIBIOTIC M.I.C RX STATUS Benzylpenicillin <=0.06 S F Ampicillin <=0.25 S F Cefotaxime <=0.12 S F Ceftriaxone <=0.12 S F Levofloxacin 0.5 S F Erythromycin 2 R F Clindamycin <=0.25 S F Linezolid <=2 S F Vancomycin 0.5 S F Tetracycline >=16 R F Normal [facility] Comment on above: Performed By: #### G BSCX #### [facility] [address] [place] [address] Dr. 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 Verbal consent obtained for telemedicine visit. Guru.ma History of Present IllnessIVF Consult: Patient is [...] contour on HSG - images reviewed from [facility] 08/2018 Uterine Cavity Evaluation: Normal [...] Peak E2 1871--> IM P4--> successful IUP [employer] Hx: LMP: 05/29/21 Menstrual cycles: Have been fairly regular for the past 3 months; 30-35 days Pap smear: 2018, up to date Mammogram: None PMH/Surg Hx/Social Hx: See below Hx of Clotting disorders: Yes- Protein S deficiency Currently on Lovenox 40 mg daily Was on Lovenox 60 mg daily prior to Needs to be on therapeutic dosing when Genetic Screening Hx: [employer] fores[employer] screen negative Partner History: Franklin Ashley 04/09/1990 SA in past year: 2.8 cc 125 mil/mL 69% motility TOQ=513 million (recent IUI sample) Morph from original SA was 2.8% Active Problems Problems 16 weeks gest (more content not included)... Normal [employer] CBC AND DIFFERENTIALon 08-06 % AUTOMATED IMMATURE GRAN 0.3 % Normal 0.0 - 0.9 [facility] Comment on above: Result Comment: Graciela ture Granulocyte Count (IG) includes promyelocytes, myelocytes and metamyelocytes but does not include bands. Percent differential counts (%) should be interpreted in the context of the absolute cell counts (cells/L). Performed By: #### C BCDF #### [address] [place] [address] Basophils (Bld) [#/Vol] 0.09 10*3/uL Normal 0.00 - 0.10 [facility] Comment on above: Performed By: #### C BCDF #### [address] [place] [address] Basophils/100 WBC (Bld) 0.9 % Normal 0.0 - 2.0 [facility] Comment on above: Performed By: #### C BCDF #### [address] [place] [address] Eosinophils (Bld) [#/Vol] 0.23 10*3/uL Normal 0.00 - 0.70 [facility] Comment on above: Performed By: #### C BCDF #### [address] [place] [address] Eosinophils/100 WBC (Bld) 2.4 % Normal 0.0 - 6.0 [facility] Comment on above: Performed By: #### C BCDF #### [address] [place] [address] Erythrocyte distribution width (RBC) [Ratio] 14.3 % Normal 11.5 - 14.5 [facility] Comment on above: Performed By: #### C BCDF #### [address] [place] [address] Hematocrit (Bld) [Volume fraction] 40.4 % Normal 36.0 - 46.0 [facility] Comment on above: Performed By: #### C BCDF #### [address] [place] [address] Hemoglobin (Bld) [Mass/Vol] 12.9 g/dL Normal 12.0 - 16.0 [facility] Comment on above: Performed By: #### C BCDF #### [address] [place] [address] Lymphocytes (Bld) [#/Vol] 2.44 10*3/uL Normal 1.20 - 4.80 [facility] Comment on above: Performed By: #### C BCDF #### [address] [place] [address] Lymphocytes/100 WBC (Bld) 25.7 % Normal 13.0 - 44.0 [facility] Comment on above: Performed By: #### C BCDF #### [address] [place] [address] MCHC (RBC) [Mass/Vol] 31.9 g/dL Low 32.0 - 36.0 [facility] Comment on above: Performed By: #### C BCDF #### [address] [place] [address] MCV (RBC) [Entitic vol] 88 fL Normal 80 - 100 [facility] Comment on above: Performed By: #### C BCDF #### [address] [place] [address] Monocytes (Bld) [#/Vol] 0.55 10*3/uL Normal 0.10 - 1.00 [facility] Comment on above: Performed By: #### C BCDF #### [address] [place] [address] Monocytes/100 WBC (Bld) 5.8 % Normal 2.0 - 10.0 [facility] Comment on above: Performed By: #### C BCDF #### [address] [place] [address] Neutrophils (Bld) [#/Vol] 6.15 10*3/uL Normal 1.20 - 7.70 [facility] Comment on above: Performed By: #### C BCDF #### [address] [place] [address] Neutrophils/100 WBC (Bld) 64.9 % Normal 40.0 - 80.0 [facility] Comment on above: Performed By: #### C BCDF #### [address] [place] [address] Platelets (Bld) [#/Vol] 410 10*3/uL Normal 150 - 450 [facility] Comment on above: Performed By: #### C BCDF #### [address] [place] [address] RBC (Bld) [#/Vol] 4.58 x10E12/L Normal 4.00 - 5.20 [facility] Comment on above: Performed By: #### C BCDF #### [address] [place] [address] WBC (Bld) [#/Vol] 9.5 10*3/uL Normal 4.4 - 11.3 [facility] Comment on above: Performed By: #### C BCDF #### [address] [place] [address] [employer] - Visiton 08-06-2020 [employer] - Visit Chief Complaint The patient is [...] with LMWH and has follow-up with her Otm Consultant 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 Reports her asthma is stable. [...] or homicidal ideation Vitals Vital Signs Recorded: [id number] 01:08PM Heart Rate62 [id number] Vgpqqnvyy62 Height5 ft 2 in Joaqkf547 lb BMI Iviwgjonts78.28 BSA Calculated1.79 Tobacco Useb) No Fall Screeninga) [...] ongoing well-woman care with her current local Director Print. She has Hematology follow-up today following our [...] WBC (Bld) 0.5 % 0.0 - 2.0 JP-UBSPU-Bksyh[address] Work Phone: Eosinophils (Bld) [#/Vol] 0.24 {x10E9/L} See Below WH-NWDXY-Mlwfx[address] Work Phone: Comment on above: Reference Range: 0.0 0 - 0.70 Eosinophils/100 WBC (Bld) 1.1 % 0.0 - 6.0 MQ-GSZRG-Wpktp[address] Work Phone: Erythrocyte distribution width (RBC) [Ratio] 15.0 % above high threshold See Below EJ-HZWEQ-Sbfep[address] Work Phone: Comment on above: Reference Range: 11. 5 - 14.5 Hematocrit (Bld) [Volume fraction] 30.0 % below low threshold See Below HN-QFYYD-Jzzad[address] Work Phone: Comment on above: Reference Range: 36. 0 - 46.0 Hemoglobin (Bld) [Mass/Vol] 9.8 g/dL below low threshold See Below OU-SEKXJ-Syqmq[address] Work Phone: Comment on above: Reference Range: 12. 0 - 16.0 Lymphocytes (Bld) [#/Vol] 2.25 {x10E9/L} See Below GJ-XLEDL-Yfjek wn 2nd Fl Work Phone: Comment on above: Reference Range: 1.2 0 - 4.80 Lymphocytes/100 WBC (Bld) 10.4 % See Below NU-YQPAT-Cjqed wn 2nd Fl Work Phone: Comment on above: Reference Range: 13. 0 - 44.0 MCHC (RBC) [Mass/Vol] 32.7 g/dL See Below MP-QXKJU-Fxhyf wn 2nd Fl Work Phone: Comment on above: Reference Range: 32. 0 - 36.0 MCV (RBC) [Entitic vol] 91 fL 80 - 100 VP-RKKSK-Wbqao wn 2nd Fl Work Phone: Monocytes (Bld) [#/Vol] 0.84 {x10E9/L} See Below RU-VWLEX-Wuela wn 2nd Fl Work Phone: Comment on above: Reference Range: 0.1 0 - 1.00 Monocytes/100 WBC (Bld) 3.9 % 2.0 - 10.0 PF-XOJIY-Fvtek wn 2nd Fl Work Phone: Neutrophils/100 WBC (Bld) 82.7 % See Below HF-EIFSC-Mbwkd wn 2nd Fl Work Phone: Comment on above: Reference Range: 40. 0 - 80.0 Platelets (Bld) [#/Vol] 225 {x10E9/L} 150 - 450 ZL-DAMQQ-Bpvze wn 2nd Fl Work Phone: RBC (Bld) [#/Vol] 3.31 {x10E12/L} below low threshold See Below CN-MEYPB-Plicw wn 2nd Fl Work Phone: Comment on above: Reference Range: 4.0 0 - 5.20 WBC (Bld) [#/Vol] 0.0 {/100_WBC} 0.0-0.0 MG- OBGYN-[facility] 2nd Fl Work Phone: WBC (Bld) [#/Vol] 21.6 {x10E9/L} above high threshold 4.4 - 11.3 CO-TEQAX-Fokkz[address] Work Phone: Complete Blood Count + Differential 0.11 {x10E9/L} above high threshold See Below GC-KVHMT-Nhisj[address] Work Phone: Comment on above: Reference Range: 0.0 0 - 0.10 Complete Blood Count + Differential 1.4 % above high threshold 0.0 - 0.9 SH-MAVDQ-Xciui[address] Work Phone: Comment on above: Immature Granulocyte Count (IG) includes promyelocytes, myelocytes and metamyelocytes but does not include bands. Percent differential counts (%) should be interpreted in the context of the absolute cell counts (cells/L). Complete Blood Count + Differential 17.85 {x10E9/L} above high threshold See Below HZ-YMQEL-Tzhlv[address] Work Phone: Comment on above: Reference Range: 1.2 0 - 7.70 Hematologyon 06-26-2020 Hematocrit (Bld) [Volume fraction] 30.5 % below low threshold See Below SG-XELHA-Qlecg[address] Work Phone: Comment on above: Reference Range: 36. 0 - 46.0 Hemoglobin (Bld) [Mass/Vol] 10.7 g/dL below low threshold See Below ON-HVNJT-Wtwfs[address] Work Phone: Comment on above: Reference Range: 12. 0 - 16.0 MCV (RBC) [Entitic vol] 84 fL 80 - 100 TE-NEXJS-Gdqyr[address] Work Phone: Platelets (Bld) [#/Vol] 258 {x10E9/L} 150 - 450 EH-TBOQW-Xmkse[address] Work Phone: RBC (Bld) [#/Vol] 3.62 {x10E12/L} below low threshold See Below OA-RPIWN-Kewnr wn 2nd Fl Work Phone: Comment on above: Reference Range: 4.0 0 - 5.20 WBC (Bld) [#/Vol] 0.0 {/100_WBC} 0.0-0.0 MG- OBGYN-[facility]to 2nd Fl Work Phone: WBC (Bld) [#/Vol] 35.7 {x10E9/L} above high threshold 4.4 - 11.3 BE-DKUQE-Hezfv wn 2nd Fl Work Phone: Otheron 06-26-2020 Erythrocyte distribution width (RBC) [Ratio] 14.6 % above high threshold See Below WB-ASHQT-Cebkg wn 2nd Fl Work Phone: Comment on above: Reference Range: 11. 5 - 14.5 MCHC (RBC) [Mass/Vol] 35.1 g/dL See Below PR-ZDRSY-Ddinp 2nd Fl Work Phone: Comment on above: [...] 3.5 cm, located 1.0 cm from themargin. Early Childhood Aide Classroom sections are submitted in 5 cassettes.AXQ/LMPSummary of Cassettes:Specimen Label SiteA 1 umbilical cord sections 2 membrane rolls 3 placental parenchyma, umbilical cord insertion site 4 placental parenchyma 5 placental parenchyma, lesionaxq/06/26/2020 UY-AXVZV-Kysrb wn 2nd Fl Work Phone: Coronavirus 2019 RNA by PCR, Symptomaticon 06-25-2020 Coronavirus 2019 RNA by PCR, Symptomatic NOT DETECTED See Below XE-GNZEC-Bmgxv 2nd Md Work Phone: Comment on above: SOURCE: Nasal, [...] this test method. Fact sheet for providers: www.fda.gov/media/384596/downloadFact sheet for patients: www.fda.gov/media/744750/downloadThis test has received FDA Emergency Use Authorization (EUA) and has been verified by [facility] ([facility]). This test is only authorized for the duration of time that circumstances exist to justify the authorization of the emergency use of in vitro diagnostic tests for the detection of SARS-CoV-2 virus and/or diagnosis of COVID-19 infection under section 564(b)(1) of the Act, 21 U.S.C. 360bbb-3(b)(1), unless the authorization is terminated or revoked sooner. [facility] is certified under CLIA-88 as qualified to perform high complexity testing. Testing is performed in the [facility] laboratories located at [address] [place] [address]. Hematologyon 06-25-2020 ABO group Nom (Bld) A [address] Work Phone: Blood group antibody screen Ql Negative [address] Work Phone: Hematocrit (Bld) [Volume fraction] 34.7 % below low threshold See Below [address] Work Phone: Comment on above: Reference Range: 36. 0 - 46.0 Hemoglobin (Bld) [Mass/Vol] 11.6 g/dL below low threshold See Below ZJ-PGNLY-Eyfln[address] Work Phone: Comment on above: Reference Range: 12. 0 - 16.0 MCV (RBC) [Entitic vol] 90 fL 80 - 100 NM-RVZJE-Vfeam[address] Work Phone: Platelets (Bld) [#/Vol] 268 {x10E9/L} 150 - 450 WD-ITIFL-Sfull[address] Work Phone: RBC (Bld) [#/Vol] 3.85 {x10E12/L} below low threshold See Below JM-PEBZM-Wticr[address] Work Phone: Comment on above: Reference Range: 4.0 0 - 5.20 Rh immune globulin screen (Bld) [Interp] Positive PV-BXQZU-Bqjmb[address] Work Phone: WBC (Bld) [#/Vol] 0.0 {/100_WBC} 0.0-0.0 [facility] Work Phone: WBC (Bld) [#/Vol] 15.5 {x10E9/L} above high threshold 4.4 - 11.3 OW-RXWDN-Clgyj[address] Work Phone: Otheron 06-25-2020 Erythrocyte distribution width (RBC) [Ratio] 14.4 % See Below VA-RSWLD-Vzgyk[address] Work Phone: Comment on above: Reference Range: 11. 5 - 14.5 MCHC (RBC) [Mass/Vol] 33.4 g/dL See Below [address] Work Phone: Comment on above: Reference Range: 32. 0 - 36.0 SYPHILIS SCREENING WITH REFL EXon 06-25-2020 T. pallidum IgG+IgM IA Ql (S) NONREACTIVE See Below [address] Work Phone: Comment on above: SOURCE: Reference Ra nge: NONREACTIVENo significant level of Treponema pallidum antibody detected. Repeat testing in 2 to 4 weeks may be considered if early infection or incubating syphilis infection is suspected. Imm/Pathon 06-07-2020 Bacteria identified Aer cx Nom (Genital specimen) PATIENT: KIARA ASHLEY LOCATION: [facility] [place] BILL#: [id number] : 89 AGE: SEX: F ORDERED BY: PARAS GUEVARA: VAGINAL COLLECTED: 06/07/20 09:36ANTIBIOTICS AT [place].: RECEIVED : 06/08/20 07:27SITE: VAGINAL R E S U L T S GROUP B STREP SCREEN PRELIM 06/09/20 08:35 CULTURE IN PROGRESS. FV-IJXPM-LKC [address] [place] Work Phone: Bacteria identified Aer cx Nom (Genital specimen) PATIENT: KIARA ASHLEY LOCATION: [facility] [place] BILL#: [id number] : 89 AGE: SEX: F ORDERED BY: PARAS GUEVARA: VAGINAL COLLECTED: 06/07/20 09:36ANTIBIOTICS AT [place].: RECEIVED : 06/08/20 07:27SITE: VAGINAL R E S U L T S GROUP B STREP SCREEN FINAL 06/10/20 11:54 NEGATIVE FOR GROUP B BETA STREP. ER-YPJSP-Atpxq wn 2nd Fl Work Phone: Otheron 06-07-2020 [...] signed by: RILEY TREVIÑO 06/07/20 09:33 Normal BG-CZVGL-ZEY [address] [place] Work Phone: Comment on above: ORDER REVISED TO A O B FOLLOW UP OR REPEAT SCAN BY RADIOLOGIST; Original Order Number: [id number] CBC AND DIFFERENTIALon 04-24 % AUTOMATED IMMATURE GRAN 1.9 % High 0.0 - 0.9 [facility] [place] Comment on above: Result Comment: Graciela ture Granulocyte Count (IG) includes promyelocytes, myelocytes and metamyelocytes but does not include bands. Percent differential counts (%) should be interpreted in the context of the absolute cell counts (cells/L). Performed By: #### C BCDF #### [address] [place] [address] Basophils (Bld) [#/Vol] 0.08 10*3/uL Normal 0.00 - 0.10 [facility] [place] Comment on above: Performed By: #### C BCDF #### [address] [place] [address] Basophils/100 WBC (Bld) 0.5 % Normal 0.0 - 2.0 [facility] [place] Comment on above: Performed By: #### C BCDF #### [address] [place] [address] Eosinophils (Bld) [#/Vol] 0.22 10*3/uL Normal 0.00 - 0.70 [facility] [place] Comment on above: Performed By: #### C BCDF #### [address] [place] [address] Eosinophils/100 WBC (Bld) 1.5 % Normal 0.0 - 6.0 [facility] [place] Comment on above: Performed By: #### C BCDF #### [address] [place] [address] Erythrocyte distribution width (RBC) [Ratio] 14.0 % Normal 11.5 - 14.5 [facility] [place] Comment on above: Performed By: #### C BCDF #### [address] [place] [address] Hematocrit (Bld) [Volume fraction] 35.6 % Low 36.0 - 46.0 [facility] [place] Comment on above: Performed By: #### C BCDF #### [address] [place] [address] Hemoglobin (Bld) [Mass/Vol] 11.8 g/dL Low 12.0 - 16.0 [facility] [place] Comment on above: Performed By: #### C BCDF #### [address] [place] [address] Lymphocytes (Bld) [#/Vol] 2.38 10*3/uL Normal 1.20 - 4.80 [facility] [place] Comment on above: Performed By: #### C BCDF #### [address] [place] [address] Lymphocytes/100 WBC (Bld) 16.0 % Normal 13.0 - 44.0 [facility] [place] Comment on above: Performed By: #### C BCDF #### [address] [place] [address] MCHC (RBC) [Mass/Vol] 33.1 g/dL Normal 32.0 - 36.0 [facility] [place] Comment on above: Performed By: #### C BCDF #### [address] [place] [address] MCV (RBC) [Entitic vol] 92 fL Normal 80 - 100 [facility] [place] Comment on above: Performed By: #### C BCDF #### [address] [place] [address] Monocytes (Bld) [#/Vol] 0.74 10*3/uL Normal 0.10 - 1.00 [facility] [place] Comment on above: Performed By: #### C BCDF #### [address] [place] [address] Monocytes/100 WBC (Bld) 5.0 % Normal 2.0 - 10.0 [facility] [place] Comment on above: Performed By: #### C BCDF #### [address] [place] [address] Neutrophils (Bld) [#/Vol] 11.17 10*3/uL High 1.20 - 7.70 [facility] [place] Comment on above: Performed By: #### C BCDF #### [address] [place] [address] Neutrophils/100 WBC (Bld) 75.1 % Normal 40.0 - 80.0 [facility] [place] Comment on above: Performed By: #### C BCDF #### [address] [place] [address] Platelets (Bld) [#/Vol] 285 10*3/uL Normal 150 - 450 [facility] [place] Comment on above: Performed By: #### C BCDF #### [address] [place] [address] RBC (Bld) [#/Vol] 3.89 x10E12/L Low 4.00 - 5.20 [facility] [place] Comment on above: Performed By: #### C BCDF #### [address] [place] [address] WBC (Bld) [#/Vol] 14.9 10*3/uL High 4.4 - 11.3 [facility] [place] Comment on above: Performed By: #### C BCDF #### [address] [place] [address] COMPREHENSIVE PANELon 2019 ALP [Catalytic activity/Vol] 79 U/L Normal 33 - 110 [facility] [place] Comment on above: Performed By: #### C MP #### [address] [place] [address] [address] ALT [Catalytic activity/Vol] 7 U/L Normal 7 - 45 [facility] [place] Comment on above: Result Comment: Melida ents treated with Sulfasalazine may generate falsely decreased results for ALT. Performed By: #### C MP #### [address] [place] [address] [address] AST [Catalytic activity/Vol] 13 U/L Normal 9 - 39 [facility] [place] Comment on above: Performed By: #### C MP #### [address] [place] [address] [place] [address] Bilirubin [Mass/Vol] 0.3 mg/dL Normal 0.0 - 1.2 [facility] [place] Comment on above: Performed By: #### C MP #### [address] [place] [address] [place] [address] Protein [Mass/Vol] 5.9 g/dL Low 6.4 - 8.2 [facility] [place] Comment on above: Performed By: #### C MP #### [address] [place] [address] [place] [address] Anion gap [Moles/Vol] 12 mmol/L Normal 10 - 20 [facility] [place] Comment on above: Performed By: #### C MP #### [address] [place] [address] [place] [address] Chloride [Moles/Vol] 106 mmol/L Normal 98 - 107 [facility] [place] Comment on above: Performed By: #### C MP #### [address] [place] [address] [place] [address] Potassium [Moles/Vol] 3.7 mmol/L Normal 3.5 - 5.3 [facility] [place] Comment on above: Performed By: #### C MP #### [address] [place] [address] [place] [address] Sodium [Moles/Vol] 137 mmol/L Normal 136 - 145 [facility] [place] Comment on above: Performed By: #### C MP #### [address] [place] [address] [place] [address] Calcium [Mass/Vol] 9.2 mg/dL Normal 8.6 - 10.3 [facility] [place] Comment on above: Performed By: #### C MP #### [address] [place] [address] [place] [address] Glucose [Mass/Vol] 95 mg/dL Normal 74 - 99 [facility] [place] Comment on above: Performed By: #### C MP #### [address] [place] [address] [place] [address] Urea nitrogen [Mass/Vol] 7 mg/dL Normal 6 - 23 [facility] [place] Comment on above: Performed By: #### C MP #### [address] [place] [address] [place] [address] Albumin [Mass/Vol] 3.4 g/dL Normal 3.4 - 5.0 [facility] [place] Comment on above: Performed By: #### C MP #### [address] [place] [address] [place] [address] Creatinine [Mass/Vol] 0.70 mg/dL Normal 0.50 - 1.05 [facility] [place] Comment on above: Performed By: #### C MP #### [address] [place] [address] [place] [address] GFR- AM. >60 Normal >60 [facility] [place] Comment on above: Result Comment: CALC ULATIONS OF ESTIMATED GFR ARE PERFORMED USING THE MDRD STUDY EQUATION FOR THE IDMS-TRACEABLE CREATININE METHODS. CLIN CHEM 2007;53:766-72 Performed By: #### C MP #### [address] [place] [address] [place] [address] GFR-NON AM. >60 Normal >60 [facility] [place] Comment on above: Performed By: #### C MP #### [address] [place] [address] [place] [address] HCO3 (Bld) [Moles/Vol] 23 mmol/L Normal 21 - 32 [facility] [place] Comment on above: Performed By: #### C MP #### [address] [place] [address] [place] [address] FERRITINon 04-24-2020 Ferritin [Mass/Vol] 8 ug/L Normal 8 - 150 [facility] [place] Comment on above: Performed By: #### F ERRI #### [address] [place] [address] IRON + TIBCon 04-24-2020 % SATURATION 14 % Low 25 - 45 [facility] [place] Comment on above: Performed By: #### I RONT #### [address] [place] [address] Iron [Mass/Vol] 65 ug/dL Normal 35 - 150 [facility] [place] Comment on above: Performed By: #### I RONT #### [address] [place] [address] TIBC 449 ug/dL High 240 - 445 [facility] [place] Comment on above: Performed By: #### I RONT #### [address] [place] [address] Complete Blood Count + Diffe rentialon 12-25-2019 Basophils/100 WBC (Bld) 1.0 % 0.0 - 2.0 GK-PQFMT-BBS [address] [place] Work Phone: Eosinophils (Bld) [#/Vol] 0.37 {x10E9/L} See Below UP-KMQPI-SKL [address] [place] Work Phone: Comment on above: Reference Range: 0.0 0 - 0.70 Eosinophils/100 WBC (Bld) 3.0 % 0.0 - 6.0 TY-FNIZG-XYY [address] [place] Work Phone: Erythrocyte distribution width (RBC) [Ratio] 13.4 % See Below UQ-QFNGE-BXL [address] [place] Work Phone: Comment on above: Reference Range: 11. 5 - 14.5 Hematocrit (Bld) [Volume fraction] 41.8 % See Below LJ-NRHSY-IGH [address] [place] Work Phone: Comment on above: Reference Range: 36. 0 - 46.0 Hemoglobin (Bld) [Mass/Vol] 13.6 g/dL See Below UI-SXGKY-OHB [address] [place] Work Phone: Comment on above: Reference Range: 12. 0 - 16.0 Lymphocytes (Bld) [#/Vol] 2.52 {x10E9/L} See Below YT-KVPYE-UJI [address] [place] Work Phone: Comment on above: Reference Range: 1.2 0 - 4.80 Lymphocytes/100 WBC (Bld) 20.2 % See Below YY-WRCQD-CAY [address] [place] Work Phone: Comment on above: Reference Range: 13. 0 - 44.0 MCHC (RBC) [Mass/Vol] 32.5 g/dL See Below AO-YDDIJ-JLC [address] [place] Work Phone: Comment on above: Reference Range: 32. 0 - 36.0 MCV (RBC) [Entitic vol] 95 fL 80 - 100 FD-QJMEL-LDW [address] [place] Work Phone: Monocytes (Bld) [#/Vol] 0.58 {x10E9/L} See Below FT-DZWJM-ROZ [address] [place] Work Phone: Comment on above: Reference Range: 0.1 0 - 1.00 Monocytes/100 WBC (Bld) 4.6 % 2.0 - 10.0 KW-UDCED-FHG [address] [place] Work Phone: Neutrophils/100 WBC (Bld) 70.6 % See Below KX-UHIWQ-EOO [address] [place] Work Phone: Comment on above: Reference Range: 40. 0 - 80.0 Platelets (Bld) [#/Vol] 372 {x10E9/L} 150 - 450 PQ-QFAVF-LTP [address] [place] Work Phone: RBC (Bld) [#/Vol] 4.40 {x10E12/L} See Below MG -OBGYN-MAC [address] [place] Work Phone: Comment on above: Reference Range: 4.0 0 - 5.20 WBC (Bld) [#/Vol] 0.0 {/100_WBC} 0.0-0.0 MG- OBGYN-MAC [address] [place] Work Phone: WBC (Bld) [#/Vol] 12.7 {x10E9/L} above high threshold 4.4 - 11.3 FW-NAPUR-CWJ [address] [place] Work Phone: Comment on above: SOURCE: Complete Blood Count + Differential 8.81 {x10E9/L} above high threshold See Below MT-WPPPR-RET [address] [place] Work Phone: Comment on above: Reference Range: 1.2 0 - 7.70 Complete Blood Count + Differential 0.6 % 0.0 - 0.9 VS-ZVUSA-GGZ [address] [place] Work Phone: Comment on above: Percent differential counts (%) should be interpreted in the context of the absolute cell counts (cells/L). Complete Blood Count + Differential 0.13 {x10E9/L} above high threshold See Below RY-GRDWN-DSV [address] [place] Work Phone: Comment on above: Reference Range: 0.0 0 - 0.10 Cult, Urineon 12-25-2019 Bacteria identified Cx Nom (U) PATIENT: KIARA ASHLEY LOCATION: [id number] BILL#: [id number] : 89 AGE: SEX: F ORDERED BY: PARAS GUEVARA: URINE COLLECTED: 12/25/19 09:41ANTIBIOTICS AT [place].: RECEIVED : 12/25/19 17:06SITE: Clean Catch/Voided R E S U L T S URINE CULTURE,BACTERIAL FINAL 12/26/19 10:21 NO SIGNIFICANT GROWTH. AJ-SCCSK-KFX [address] [place] Work Phone: Hematologyon 12-25-2019 ABO group Nom (Bld) A MR-ATAYI-FVK [address] [place] Work Phone: Blood group antibody screen Ql Negative VG-NKWWZ-WRR [address] [place] Work Phone: Rh immune globulin screen (Bld) [Interp] Positive BK-VLKJL-XAY [address] [place] Work Phone: Hepatitis B Surface Antigeno n 12-25-2019 Hepatitis B Surface Antigen NONREACTIVE See Below JM-BOYCL-FCO [address] [place] Work Phone: Comment on above: [...] Hepatitis C Antibody Test NON-REACTIVE See Below IL-HTGZQ-FVP [address] [place] Work Phone: Comment on above: SOURCE: Reference Ra nge: NONREACTIVE Patients receiving more than 5 mg/day of biotin may have interference in test results. A sample should be taken no sooner than eight hours after previous dose. Contact the testing laboratory for additional information. Metabolic Panelon 12-25-2019 ALP [Catalytic activity/Vol] 67 U/L 33 - 110 DS-CXXIL-AOC [address] [place] Work Phone: Anion gap [Moles/Vol] 15 mmol/L 10 - 20 UP-BIUMI-ZVX [address] [place] Work Phone: Bilirubin [Mass/Vol] 0.3 mg/dL 0.0 - 1.2 FC-KZJIO-GKV [address] [place] Work Phone: Calcium [Mass/Vol] 9.6 mg/dL 8.6 - 10.6 MO-VPGEP-JQM [address] [place] Work Phone: Chloride [Moles/Vol] 104 mmol/L 98 - 107 ND-RIUMG-PPA [address] [place] Work Phone: CO2 [Moles/Vol] 21 mmol/L 21 - 32 MG-OBGYN- MAC [address] [place] Work Phone: Creatinine [Mass/Vol] 0.69 mg/dL See Below CN-AARWX-ARZ [address] [place] Work Phone: Comment on above: Reference Range: 0.5 0 - 1.05 Glucose [Mass/Vol] 83 mg/dL 74 - 99 MH-SGRNE-FAD [address] [place] Work Phone: Comment on above: SOURCE: Potassium [Moles/Vol] 4.1 mmol/L 3.5 - 5.3 FX-UYCFF-ZBZ [address] [place] Work Phone: Protein [Mass/Vol] 6.2 g/dL below low threshold 6.4 - 8.2 WO-BUGLR-LZS [address] [place] Work Phone: Sodium [Moles/Vol] 136 mmol/L 136 - 145 MD-ETGTK-HSL [address] [place] Work Phone: Urea nitrogen [Mass/Vol] 9 mg/dL 6 - 23 ID-BTYFJ-VUM [address] [place] Work Phone: Otheron 12-25-2019 Albumin BCP dye [Mass/Vol] 3.9 g/dL 3.4 - 5.0 CE-AGBFW-XQP [address] [place] Work Phone: ALT With P-5'-P [Catalytic activity/Vol] 8 U/L 7 - 45 IJ-RDAWE-GGE [address] [place] Work Phone: Comment on above: Patients treated wit h Sulfasalazine may generate falsely decreased results for ALT. AST With P-5'-P [Catalytic activity/Vol] 11 U/L 9 - 39 UY-XEYAC-ITP [address] [place] Work Phone: NONE FU-RKGCN-HZC [address] [place] Work Phone: >60 >60 NL-XIYDT-BYS [address] [place] Work Phone: Comment on above: CALCULATIONS OF MARÍA MATED GFR ARE PERFORMED USING THE MDRD STUDY EQUATION FOR THE IDMS-TRACEABLE CREATININE METHODS. CLIN CHEM 2007;53:766-72 SYPHILIS SCREENING WITH REFL EXon 12-25-2019 T. pallidum IgG+IgM IA Ql (S) NONREACTIVE See Below PV-AHZOW-YUN [address] [place] Work Phone: Comment on above: SOURCE: Reference Ra nge: NONREACTIVENo significant level of Treponema pallidum antibody detected. Repeat testing in 2 to 4 weeks may be considered if early infection or incubating syphilis infection is suspected. CBC AND DIFFERENTIALon 11-21 % AUTOMATED IMMATURE GRAN 0.9 % Normal 0.0 - 0.9 [facility] [place] Comment on above: Result Comment: Perc ent differential counts (%) should be interpreted in the context of the absolute cell counts (cells/L). Performed By: #### C BCDF #### [address] [place] [address] Basophils (Bld) [#/Vol] 0.16 10*3/uL High 0.00 - 0.10 [facility] [place] Comment on above: Performed By: #### C BCDF #### [address] [place] [address] Basophils/100 WBC (Bld) 1.2 % Normal 0.0 - 2.0 [facility] [place] Comment on above: Performed By: #### C BCDF #### [address] [place] [address] Eosinophils (Bld) [#/Vol] 0.80 10*3/uL High 0.00 - 0.70 [facility] [place] Comment on above: Performed By: #### C BCDF #### [address] [place] [address] Eosinophils/100 WBC (Bld) 5.8 % Normal 0.0 - 6.0 [facility] [place] Comment on above: Performed By: #### C BCDF #### [address] [place] [address] Erythrocyte distribution width (RBC) [Ratio] 13.6 % Normal 11.5 - 14.5 [facility] [place] Comment on above: Performed By: #### C BCDF #### [address] [place] [address] Hematocrit (Bld) [Volume fraction] 39.4 % Normal 36.0 - 46.0 [facility] [place] Comment on above: Performed By: #### C BCDF #### [address] [place] [address] Hemoglobin (Bld) [Mass/Vol] 13.0 g/dL Normal 12.0 - 16.0 [facility] [place] Comment on above: Performed By: #### C BCDF #### [address] [place] [address] Lymphocytes (Bld) [#/Vol] 2.24 10*3/uL Normal 1.20 - 4.80 [facility] [place] Comment on above: Performed By: #### C BCDF #### [address] [place] [address] Lymphocytes/100 WBC (Bld) 16.3 % Normal 13.0 - 44.0 [facility] [place] Comment on above: Performed By: #### C BCDF #### [address] [place] [address] MCHC (RBC) [Mass/Vol] 33.0 g/dL Normal 32.0 - 36.0 [facility] [place] Comment on above: Performed By: #### C BCDF #### [address] [place] [address] MCV (RBC) [Entitic vol] 94 fL Normal 80 - 100 [facility] [place] Comment on above: Performed By: #### C BCDF #### [address] [place] [address] Monocytes (Bld) [#/Vol] 0.83 10*3/uL Normal 0.10 - 1.00 [facility] [place] Comment on above: Performed By: #### C BCDF #### [address] [place] [address] Monocytes/100 WBC (Bld) 6.0 % Normal 2.0 - 10.0 [facility] [place] Comment on above: Performed By: #### C BCDF #### [address] [place] [address] Neutrophils (Bld) [#/Vol] 9.60 10*3/uL High 1.20 - 7.70 [facility] [place] Comment on above: Performed By: #### C BCDF #### [address] [place] [address] Neutrophils/100 WBC (Bld) 69.8 % Normal 40.0 - 80.0 [facility] [place] Comment on above: Performed By: #### C BCDF #### [address] [place] [address] Platelets (Bld) [#/Vol] 380 10*3/uL Normal 150 - 450 [facility] [place] Comment on above: Performed By: #### C BCDF #### [address] [place] [address] RBC (Bld) [#/Vol] 4.21 x10E12/L Normal 4.00 - 5.20 [facility] [place] Comment on above: Performed By: #### C BCDF #### [address] [place] [address] WBC (Bld) [#/Vol] 13.8 10*3/uL High 4.4 - 11.3 [facility] [place] Comment on above: Performed By: #### C BCDF #### [address] [place] [address] Complete Blood Count + Diffe martaon 11-14-2019 Basophils (Bld) [#/Vol] 0.05 {x10E9/L} See Below -Reproductiv e Endocrin[facility]- [place] Work Phone: Comment on above: Reference Range: 0.0 0 - 0.10 Basophils/100 WBC (Bld) 0.4 % 0.0 - 2.0 MP-Reproductiv e Endocrinology- [place] Work Phone: Eosinophils (Bld) [#/Vol] 0.89 {x10E9/L} above high threshold See Below MP-Reproductiv e [facility]ocrin[facility]- [place] Work Phone: Comment on above: Reference Range: 0.0 0 - 0.70 Eosinophils/100 WBC (Bld) 7.3 % 0.0 - 6.0 MP-Reproductiv e Endocrin[facility]- [place] Work Phone: Erythrocyte distribution width (RBC) [Ratio] 13.9 % See Below -Reproductiv e Endocrinology- [place] Work Phone: Comment on above: Reference Range: 11. 5 - 14.5 Hematocrit (Bld) [Volume fraction] 39.4 % See Below -Reproductiv e Endocrin[facility]- [place] Work Phone: Comment on above: Reference Range: 36. 0 - 46.0 Hemoglobin (Bld) [Mass/Vol] 12.8 g/dL See Below -Reproductiv e Endocrin[facility]- [place] Work Phone: Comment on above: Reference Range: 12. 0 - 16.0 Lymphocytes (Bld) [#/Vol] 2.13 {x10E9/L} See Below -Reproductiv e Endocrin[facility]- [place] Work Phone: Comment on above: Reference Range: 1.2 0 - 4.80 Lymphocytes/100 WBC (Bld) 17.5 % See Below MP-Reproductiv e Endocrinology- [place] Work Phone: Comment on above: Reference Range: 13. 0 - 44.0 MCHC (RBC) [Mass/Vol] 32.5 g/dL See Below MP-Reproductiv e Endocrin[facility]- [place] Work Phone: Comment on above: Reference Range: 32. 0 - 36.0 MCV (RBC) [Entitic vol] 95 fL 80 - 100 [facility] Work [facility]: Monocytes (Bld) [#/Vol] 0.60 {x10E9/L} See Below [facility] Work Phone: Comment on above: Reference Range: 0.1 0 - 1.00 Monocytes/100 WBC (Bld) 4.9 % 2.0 - 10.0 [facility] Work Phone: Neutrophils/100 WBC (Bld) 69.4 % See Below [facility] Work [facility]: Comment on above: Reference Range: 40. 0 - 80.0 Platelets (Bld) [#/Vol] 423 {x10E9/L} 150 - 450 [facility] Work Phone: RBC (Bld) [#/Vol] 4.15 {x10E12/L} See Below MP [facility] Work Phone: Comment on above: Reference Range: 4.0 0 - 5.20 WBC (Bld) [#/Vol] 12.2 {x10E9/L} above high threshold 4.4 - 11.3 [facility] Work Phone: WBC (Bld) [#/Vol] 0.0 {/100_WBC} 0.0-0.0 MP- Reproductiv e [facility]ocr[facility]- [place] Work Phone: Complete Blood Count + Differential 0.5 % 0.0 - 0.9 MP-Reproductiv e [facility]ocrin[facility]- [place] Work Phone: Comment on above: Percent differential counts (%) should be interpreted in the context of the absolute cell counts (cells/L). Complete Blood Count + Differential 8.42 {x10E9/L} above high threshold See Below MP-Reproductiv e Endocrinology- [place] Work Phone: Comment on above: Reference Range: 1.2 0 - 7.70 Metabolic Panelon 11-14-2019 ALP [Catalytic activity/Vol] 82 U/L 33 - 110 MP-Reproductiv e Endocrinology- [place] Work Phone: Anion gap [Moles/Vol] 19 mmol/L 10 - 20 MP-Reproductiv e Endocrin[facility]- [place] Work Phone: Bilirubin [Mass/Vol] 0.4 mg/dL 0.0 - 1.2 MP-Reproductiv e Endocrinology- [place] Work Phone: Calcium [Mass/Vol] 9.5 mg/dL 8.6 - 10.6 MP-Reproductiv e Endocrinology- [place] Work Phone: Chloride [Moles/Vol] 100 mmol/L 98 - 107 MP-Reproductiv e Endocrinology- [place] Work Phone: CO2 [Moles/Vol] 20 mmol/L below low threshold 21 - 32 MP-Reproductiv e Endocrinology- [place] Work Phone: Creatinine [Mass/Vol] 0.80 mg/dL See Below MP-Reproductiv e Endocrinology- [place] Work Phone: Comment on above: Reference Range: 0.5 0 - 1.05 Glucose [Mass/Vol] 86 mg/dL 74 - 99 MP-Reproductiv e Endocrinology- [place] Work Phone: Potassium [Moles/Vol] 4.3 mmol/L 3.5 - 5.3 [facility] [place] Work Phone: Protein [Mass/Vol] 5.8 g/dL below low threshold 6.4 - 8.2 [facility]duct[facility] [place] Work Phone: Sodium [Moles/Vol] 135 mmol/L below low threshold 136 - 145 [facility]duct[facility]- [place] Work Phone: Urea nitrogen [Mass/Vol] 10 mg/dL 6 - 23 MP-Reproductiv e [facility] Work Phone: Otheron 11-14-2019 Albumin BCP dye [Mass/Vol] 3.5 g/dL 3.4 - 5.0 MP-Reproductiv e [facility] Work Phone: ALT With P-5'-P [Catalytic activity/Vol] 17 U/L 7 - 45 MP-Reproductiv e [facility] Work Phone: Comment on above: Patients treated wit h Sulfasalazine may generate falsely decreased results for ALT. AST With P-5'-P [Catalytic activity/Vol] 22 U/L 9 - 39 MP-Reproductiv e [facility] Work Phone: >60 >60 -Reproductiv [facility] [facility] Work Phone: Comment on above: CALCULATIONS OF MARÍA MATED GFR ARE PERFORMED USING THE MDRD STUDY EQUATION FOR THE IDMS-TRACEABLE CREATININE METHODS. CLIN CHEM 2007;53:766-72 CBCon 11-09-2019 Erythrocyte distribution width (RBC) [Ratio] 13.7 % See Below SW-KEILV-Azhzl n 310 IVF Work Phone: Comment on above: Performed By: #### L H #### [facility] [address] [place] [address] Reference Range: 11. 5 - 14.5 Hematocrit (Bld) [Volume fraction] 41.9 % See Below NC-UNIXE-Ltidh n 310 IVF Work Phone: Comment on above: Performed By: #### L H #### [facility] [address] [place] [address] Reference Range: 36. 0 - 46.0 Hemoglobin (Bld) [Mass/Vol] 14.0 g/dL See Below HL-BNGGY-Wdahd n 310 IVF Work Phone: Comment on above: Performed By: #### L H #### [facility] [address] [place] [address] Reference Range: 12. 0 - 16.0 MCHC (RBC) [Mass/Vol] 33.4 g/dL See Below BQ-DCBDB-Syiez n 310 IVF Work Phone: Comment on above: Performed By: #### L H #### [facility] [address] [place] [address] Reference Range: 32. 0 - 36.0 MCV (RBC) [Entitic vol] 94 fL 80 - 100 UE-JETXJ-Bpzjo n 310 IVF Work Phone: Comment on above: Performed By: #### L H #### [facility] [address] [place] [id number] Platelets (Bld) [#/Vol] 411 10*3/uL Normal 150 - 450 [facility] Comment on above: Performed By: #### L H #### [facility] [address] [place] [id number] RBC (Bld) [#/Vol] 4.44 x10E12/L Normal 4.00 - 5.20 [facility] Comment on above: Performed By: #### L H #### [facility] [address] [place] [id number] WBC (Bld) [#/Vol] 12.4 10*3/uL High 4.4 - 11.3 [facility] Comment on above: Performed By: #### L H #### [facility] [address] [place] [id number] COMPREHENSIVE PANELon 2018 Albumin [Mass/Vol] 3.8 g/dL Normal 3.4 - 5.0 [facility] Comment on above: Performed By: #### L H #### [facility] [address] [place] [address] ALP [Catalytic activity/Vol] 51 U/L 33 - 110 VH-FKWPM-Vouwd n 310 IVF Work Phone: Comment on above: Performed By: #### L H #### [facility] [address] [place] [address] ALT [Catalytic activity/Vol] 12 U/L Normal 7 - 45 [facility] Comment on above: Result Comment: Melida ents treated with Sulfasalazine may generate falsely decreased results for ALT. Performed By: #### L H #### [facility] [address] [place] [address] Anion gap [Moles/Vol] 13 mmol/L 10 - 20 HY-QHPTP-Sfmae n 310 IVF Work Phone: Comment on above: Performed By: #### L H #### [facility] [address] [place] [id number] AST [Catalytic activity/Vol] 12 U/L Normal 9 - 39 [facility] Comment on above: Performed By: #### L H #### [facility] [address] [place] [id number] Bilirubin [Mass/Vol] 0.4 mg/dL 0.0 - 1.2 QV-JBSCA-Gbwvy n 310 IVF Work Phone: Comment on above: Performed By: #### L H #### [facility] [address] [place] [id number] Calcium [Mass/Vol] 9.3 mg/dL 8.6 - 10.3 DU-MQSBT-Jimqo n 310 IVF Work Phone: Comment on above: Performed By: #### L H #### [facility] [address] [place] [id number] Chloride [Moles/Vol] 102 mmol/L 98 - 107 ZD-MDNNY-Ltott n 310 IVF Work Phone: Comment on above: Performed By: #### L H #### [facility] [address] [place] [id number] Creatinine [Mass/Vol] 0.89 mg/dL See Below PS-SFZTE-Xhrog n 310 IVF Work Phone: Comment on above: Performed By: #### L H #### [facility] [address] [place] [id number] Reference Range: 0.5 0 - 1.05 GFR- AM. >60 Normal >60 [facility] Comment on above: Result Comment: CALC ULATIONS OF ESTIMATED GFR ARE PERFORMED USING THE MDRD STUDY EQUATION FOR THE IDMS-TRACEABLE CREATININE METHODS. CLIN CHEM 2007;53:766-72 Performed By: #### L H #### [facility] [address] [place] [address] GFR-NON AM. >60 Normal >60 [facility] Comment on above: Performed By: #### L H #### [facility] [address] [place] [address] Glucose [Mass/Vol] 74 mg/dL 74 - 99 DF-OWBSA-Mkyrq n 310 IVF Work Phone: Comment on above: Performed By: #### L H #### [facility] [address] [place] [address] HCO3 (Bld) [Moles/Vol] 25 mmol/L Normal 21 - 32 [facility] Comment on above: Performed By: #### L H #### [facility] [address] [place] [address] Potassium [Moles/Vol] 4.1 mmol/L 3.5 - 5.3 OG-XSCKN-Ucnck n 310 IVF Work Phone: Comment on above: Performed By: #### L H #### [facility] [address] [place] [id number] Protein [Mass/Vol] 6.0 g/dL below low threshold 6.4 - 8.2 RY-SPVCY-Cmdsh n 310 IVF Work Phone: Comment on above: Performed By: #### L H #### [facility] [address] [place] [id number] Sodium [Moles/Vol] 136 mmol/L 136 - 145 CI-FWVAD-Jmeae n 310 IVF Work Phone: Comment on above: Performed By: #### L H #### [facility] [address] [place] [address] Urea nitrogen [Mass/Vol] 11 mg/dL 6 - 23 MU-KSXJQ-Xwelc n 310 IVF Work Phone: Comment on above: Performed By: #### L H #### [facility] [address] [place] [address] HCG, Beta Quantitativeon HCG.beta subunit Qn 7102 {mIU/mL} Abnormal SB-GIVSJ-Abchn n 310 IVF Work Phone: Comment on [...] HCG measurement is performed using the [employer] Access Immunoassay which detects intact HCG and free beta HCG subunit. This test is not indicated for use as a tumor marker. HCG testing is performed using a different test methodology at [facility] than other [facility]. Direct result comparison should only be made within the same method. REF VALUESNON FEMALE <5MALES <5 HCG,BETA-QUANTITATIVEon - HCG,BETA-QUANTITA TIVE 7102 mIU/mL [facility] Comment on above: Result Comment: Low- level [...] HCG measurement is performed using the [employer] Access Immunoassay which detects intact HCG and free beta HCG subunit. This test is not indicated for use as a tumor marker. HCG testing is performed using a different test methodology at [facility] than other [facility]. Direct result comparison should only be made within the same method. REF VALUES NON FEMALE <5 MALES <5 Performed By: #### L H #### [facility] [address] [place] [address] Hematologyon 11-09-2019 Platelets (Bld) [#/Vol] 411 {x10E9/L} 150 - 450 UM-VUKUK-Ghdtu n 310 IVF Work Phone: RBC (Bld) [#/Vol] 4.44 {x10E12/L} See Below MG -OBGYN-Risma n 310 IVF Work Phone: Comment on above: Reference Range: 4.0 0 - 5.20 WBC (Bld) [#/Vol] 12.4 {x10E9/L} above high threshold 4.4 - 11.3 GX-MRJSX-Gfnhy n 310 IVF Work Phone: Metabolic Panelon 11-09-2019 CO2 [Moles/Vol] 25 mmol/L 21 - 32 MG-OBGYN- Risma n 310 IVF Work Phone: Otheron 11-09-2019 Albumin BCP dye [Mass/Vol] 3.8 g/dL 3.4 - 5.0 JP-FVYXA-Sxscm n 310 IVF Work Phone: ALT With P-5'-P [Catalytic activity/Vol] 12 U/L 7 - 45 ZR-YMEDN-Xvgef n 310 IVF Work Phone: Comment on above: Patients treated wit h Sulfasalazine may generate falsely decreased results for ALT. AST With P-5'-P [Catalytic activity/Vol] 12 U/L 9 - 39 SB-VZPDT-Kfayw n 310 IVF Work Phone: >60 >60 IQ-NIHJO-Jzqtu n 310 IVF Work Phone: Comment on [...] time period. FSH measurement is recommended in yduelka- or post-menopausal females as concurrent elevation of FSH can support pituitary production as the source of the HCG elevation.. Total HCG measurement is performed using the [employer] Access Immunoassay which detects intact HCG and free beta HCG subunit. This test is not indicated for use as a tumor marker. HCG testing is performed using a different test methodology at [facility] than other [facility]. Direct result comparison should only be made within the same method. REF VALUESNON FEMALE <5MALES <5 HCG,BETA-QUANTITATIVEon 10-15 HCG,BETA-QUANTITA TIVE 240 mIU/mL [facility] Comment on above: Result Comment: Low- level [...] HCG measurement is performed using the [employer] Access Immunoassay which detects intact HCG and free beta HCG subunit. This test is not indicated for use as a tumor marker. HCG testing is performed using a different test methodology at [facility] than other [facility]. Direct result comparison should only be made within the same method. REF VALUES NON FEMALE <5 MALES <5 Performed By: #### E STRA #### [facility] [address] [place] [address] ESTRADIOLon 10-14-2019 ESTRADIOL 1871 pg/mL Normal [facility] Comment on above: Result Comment: Estr adiol measurement is performed using the [employer] Access Immunoassay. Estradiol testing is performed using a different test methodology at [facility] than other [facility]. Direct result comparison should only be made within the same method. REF VALUES FOLLICULAR PHASE 20-144 MID CYCLE 64-357 LUTEAL PHASE 56-214 POSTMENOPAUSE < 32 PREPUBERTY < 20 MALE 10-18Y < 20 ADULT MALE < 40 Performed By: #### E STRA #### [facility] [address] [place] [address] Estradiol, Serumon 9 E2 [Mass/Vol] 1871 pg/mL MG-OBGYN-Ri sma n 310 IVF Work Phone: Comment on above: Estradiol measuremen t is performed using the [employer] Access Immunoassay. Estradiol testing is performed using a different test methodology at [facility] than other [facility]. Direct result comparison should only be made within the same method.REF VALUESFOLLICULAR PHASE 20-144MID CYCLE 64-357LUTEAL PHASE 56-214POSTMENOPAUSE < 32PREPUBERTY < 20MALE 10-18Y < 20ADULT MALE < 40 PROGESTERONEon 10-14-2019 PROGESTERONE 1.0 ng/mL Normal [facility] Comment on above: Result Comment: Prog esterone is performed using the [employer] Access Immunoassay. Progesterone testing is performed using a different test methodology at [facility] than other [facility]. Direct result comparison should only be made within the same method. REF VALUES MALE <0.2-0.8 FOLLICULAR PHASE <0.2-1.5 LUTEAL PHASE 7.4-15.4 POSTMENOPAUSAL <0.2-0.2 1ST TRIMESTER 12.0-84.0 2ND TRIMESTER 10.2-58.8 3RD TRIMESTER 46.5-160 Performed By: #### E STRA #### [facility] [address] [place] [address] Progesterone, Serumon 2018 Progesterone [Mass/Vol] 1.0 ng/mL TY-PCNKI-Hzimv n 310 IVF Work Phone: Comment on above: Progesterone is perf ormed using the [employer] Access Immunoassay. Progesterone testing is performed using a different test methodology at [facility] than other [facility]. Direct result comparison should only be made within the same method.REF VALUESMALE <0.2-0.8 FOLLICULAR PHASE <0.2-1.5 LUTEAL PHASE 7.4-15.4 POSTMENOPAUSAL <0.2-0.2 1ST TRIMESTER 12.0-84.0 2ND TRIMESTER 10.2-58.8 3RD TRIMESTER 46.5-160 ESTRADIOLon 10-11-2019 ESTRADIOL 284 pg/mL Normal [facility] Comment on above: Result Comment: Estr adiol measurement is performed using the [employer] Access Immunoassay. Estradiol testing is performed using a different test methodology at [facility] than other [facility]. Direct result comparison should only be made within the same method. REF VALUES FOLLICULAR PHASE 20-144 MID CYCLE 64-357 LUTEAL PHASE 56-214 POSTMENOPAUSE < 32 PREPUBERTY < 20 MALE 10-18Y < 20 ADULT MALE < 40 Performed By: #### E STRA #### [facility] [address] [place] [address] Estradiol, Serumon 201 9 E2 [Mass/Vol] 284 pg/mL MG-OBGYN-Ri [facility] n 310 IVF Work Phone: Comment on above: Estradiol measuremen t is performed using the [employer] Access Immunoassay. Estradiol testing is performed using a different test methodology at [facility] than other [facility]. Direct result comparison should only be made within the same method.REF VALUESFOLLICULAR PHASE 20-144MID CYCLE 64-357LUTEAL PHASE 56-214POSTMENOPAUSE < 32PREPUBERTY < 20MALE 10-18Y < 20ADULT MALE < 40 ESTRADIOLon 10-05-2019 ESTRADIOL 129 pg/mL Normal [facility] Comment on above: Result Comment: Estr adiol measurement is performed using the [employer] Access Immunoassay. Estradiol testing is performed using a different test methodology at [facility] than other [facility]. Direct result comparison should only be made within the same method. REF VALUES FOLLICULAR PHASE 20-144 MID CYCLE 64-357 LUTEAL PHASE 56-214 POSTMENOPAUSE < 32 PREPUBERTY < 20 MALE 10-18Y < 20 ADULT MALE < 40 Performed By: #### E STRA #### [facility] [address] [place] [address] Estradiol, Serumon 9 E2 [Mass/Vol] 129 pg/mL MG-OBGYN-Ri [facility] n 310 IVF Work Phone: Comment on above: Estradiol measuremen t is performed using the [employer] Access Immunoassay. Estradiol testing is performed using a different test methodology at [facility] than other [facility]. Direct result comparison should only be made within the same method.REF VALUESFOLLICULAR PHASE 20-144MID CYCLE 64-357LUTEAL PHASE 56-214POSTMENOPAUSE < 32PREPUBERTY < 20MALE 10-18Y < 20ADULT MALE < 40 PROGESTERONEon 10-05-2019 PROGESTERONE 0.2 ng/mL Normal [facility] Comment on above: Result Comment: Prog esterone is performed using the [employer] Access Immunoassay. Progesterone testing is performed using a different test methodology at [facility] than other [facility]. Direct result comparison should only be made within the same method. REF VALUES MALE <0.2-0.8 FOLLICULAR PHASE <0.2-1.5 LUTEAL PHASE 7.4-15.4 POSTMENOPAUSAL <0.2-0.2 1ST TRIMESTER 12.0-84.0 2ND TRIMESTER 10.2-58.8 3RD TRIMESTER 46.5-160 Performed By: #### E STRA #### [facility] [address] [place] [address] Progesterone, Serumon 2018 Progesterone [Mass/Vol] 0.2 ng/mL RC-WSRTA-Khqac n 310 IVF Work Phone: Comment on above: Progesterone is perf ormed using the [employer] Access Immunoassay. Progesterone testing is performed using a different test methodology at [facility] than other [facility]. Direct result comparison should only be made within the same method.REF VALUESMALE <0.2-0.8 FOLLICULAR PHASE <0.2-1.5 LUTEAL PHASE 7.4-15.4 POSTMENOPAUSAL <0.2-0.2 1ST TRIMESTER 12.0-84.0 2ND TRIMESTER 10.2-58.8 3RD TRIMESTER 46.5-160 ESTRADIOLon 10-02-2019 ESTRADIOL 357 pg/mL Normal [facility] Comment on above: Result Comment: Estr adiol measurement is performed using the [employer] Access Immunoassay. Estradiol testing is performed using a different test methodology at [facility] than other [facility]. Direct result comparison should only be made within the same method. REF VALUES FOLLICULAR PHASE 20-144 MID CYCLE 64-357 LUTEAL PHASE 56-214 POSTMENOPAUSE < 32 PREPUBERTY < 20 MALE 10-18Y < 20 ADULT MALE < 40 Performed By: #### E STRA #### [facility] [address] [place] [address] Estradiol, Serumon 9 E2 [Mass/Vol] 357 pg/mL MG-OBGYN-Cr ock er 206A IVF Work Phone: Comment on above: Estradiol measuremen t is performed using the [employer] Access Immunoassay. Estradiol testing is performed using a different test methodology at [facility] than other [facility]. Direct result comparison should only be made within the same method.REF VALUESFOLLICULAR PHASE 20-144MID CYCLE 64-357LUTEAL PHASE 56-214POSTMENOPAUSE < 32PREPUBERTY < 20MALE 10-18Y < 20ADULT MALE < 40 LUTEINIZING HORMONEon 2018 LUTEINIZING HORMONE 14.7 IU/L Normal [facility] Comment on above: Result Comment: Lute inizing Hormone [LH] is performed using the [employer] Access Immunoassay. LH testing is performed using a different test methodology at [facility] than other [facility]. Direct result comparison should only be made within the same method. REF VALUES FOLLICULAR PHASE 1.5-10.0 MID-CYCLE 13.0-72.0 LUTEAL PHASE 0.5-13.0 MENOPAUSE 15.0-65.0 PREPUBERTY 0- 3.0 CHILDREN 0- 6.0 ADULT MALE 1.0- 9.0 Performed By: #### E STRA #### [facility] [address] [place] [address] Luteinizing Hormone, Serumon 10-02-2019 Lutropin Qn 14.7 {IU/L} GK-OCJCR-Pld ck er 206A IVF Work Phone: Comment on above: Luteinizing Hormone [LH] is performed using the [employer] Access Immunoassay. LH testing is performed using a different test methodology at [facility] than other [facility]. Direct result comparison should only be made within the same method.REF VALUESFOLLICULAR PHASE 1.5-10.0MID-CYCLE 13.0-72.0LUTEAL PHASE 0.5-13.0MENOPAUSE 15.0-65.0PREPUBERTY 0- 3.0CHILDREN 0- 6.0ADULT MALE 1.0- 9.0 PROGESTERONEon 10-02-2019 PROGESTERONE 0.1 ng/mL Normal [facility] Comment on above: Result Comment: Prog esterone is performed using the [employer] Access Immunoassay. Progesterone testing is performed using a different test methodology at [facility] than other [facility]. Direct result comparison should only be made within the same method. REF VALUES MALE <0.2-0.8 FOLLICULAR PHASE <0.2-1.5 LUTEAL PHASE 7.4-15.4 POSTMENOPAUSAL <0.2-0.2 1ST TRIMESTER 12.0-84.0 2ND TRIMESTER 10.2-58.8 3RD TRIMESTER 46.5-160 Performed By: #### E STRA #### [facility] [address] [place] [address] Progesterone, Serumon 2018 Progesterone [Mass/Vol] 0.1 ng/mL MP-GBMZE-Bxhpn er 206A IVF Work Phone: Comment on above: Progesterone is perf ormed using the [employer] Access Immunoassay. Progesterone testing is performed using a different test methodology at [facility] than other [facility]. Direct result comparison should only be made within the same method.REF VALUESMALE <0.2-0.8 FOLLICULAR PHASE <0.2-1.5 LUTEAL PHASE 7.4-15.4 POSTMENOPAUSAL <0.2-0.2 1ST TRIMESTER 12.0-84.0 2ND TRIMESTER 10.2-58.8 3RD TRIMESTER 46.5-160 HCG,BETA-QUANTITATIVEon 07-17 HCG,BETA-QUANTITA TIVE 10 mIU/mL [facility] Comment on above: Result Comment: Low- level [...] HCG measurement is performed using the [employer] Access Immunoassay which detects intact HCG and free beta HCG subunit. This test is not indicated for use as a tumor marker. HCG testing is performed using a different test methodology at [facility] than other [facility]. Direct result comparison should only be made within the same method. REF VALUES NON FEMALE <5 MALES <5 Performed By: #### L H #### [facility] [address] [place] [address] LUTEINIZING HORMONEon 2018 LUTEINIZING HORMONE 57.0 IU/L Normal [facility] Comment on above: Result Comment: Lute inizing Hormone [LH] is performed using the [employer] Access Immunoassay. LH testing is performed using a different test methodology at [facility] than other [facility]. Direct result comparison should only be made within the same method. REF VALUES FOLLICULAR PHASE 1.5-10.0 MID-CYCLE 13.0-72.0 LUTEAL PHASE 0.5-13.0 MENOPAUSE 15.0-65.0 PREPUBERTY 0- 3.0 CHILDREN 0- 6.0 ADULT MALE 1.0- 9.0 Performed By: #### E STRA #### [facility] [address] [place] [address] PROGESTERONEon 08-13-2019 PROGESTERONE 6.7 ng/mL Normal [facility] Comment on above: Result Comment: Prog esterone is performed using the [employer] Access Immunoassay. Progesterone testing is performed using a different test methodology at [facility] than other [facility]. Direct result comparison should only be made within the same method. REF VALUES MALE <0.2-0.8 FOLLICULAR PHASE <0.2-1.5 LUTEAL PHASE 7.4-15.4 POSTMENOPAUSAL <0.2-0.2 1ST TRIMESTER 12.0-84.0 2ND TRIMESTER 10.2-58.8 3RD TRIMESTER 46.5-160 Performed By: #### L H #### [facility] [address] [place] [address] ESTRADIOLon 08-12-2019 ESTRADIOL 1380 pg/mL Normal [facility] Comment on above: Result Comment: Estr adiol measurement is performed using the [employer] Access Immunoassay. Estradiol testing is performed using a different test methodology at [facility] than [facility]. Direct result comparison should only be made within the same method. REF VALUES FOLLICULAR PHASE 20-144 MID CYCLE 64-357 LUTEAL PHASE 56-214 POSTMENOPAUSE < 32 PREPUBERTY < 20 MALE 10-18Y < 20 ADULT MALE < 40 Performed By: #### L H #### [facility] [address] [place] [address] PROGESTERONEon 08-12-2019 PROGESTERONE 1.7 ng/mL Normal [facility] Comment on above: Result Comment: Prog esterone is performed using the [employer] Access Immunoassay. Progesterone testing is performed using a different test methodology at [facility] than other [facility]. Direct result comparison should only be made within the same method. REF VALUES MALE <0.2-0.8 FOLLICULAR PHASE <0.2-1.5 LUTEAL PHASE 7.4-15.4 POSTMENOPAUSAL <0.2-0.2 1ST TRIMESTER 12.0-84.0 2ND TRIMESTER 10.2-58.8 3RD TRIMESTER 46.5-160 Performed By: #### L H #### [facility] [address] [place] [address] ESTRADIOLon 08-11-2019 ESTRADIOL 874 pg/mL Normal [facility] Comment on above: Result Comment: Estr adiol measurement is performed using the [employer] Access Immunoassay. Estradiol testing is performed using a different test methodology at [facility] than other [facility]. Direct result comparison should only be made within the same method. REF VALUES FOLLICULAR PHASE 20-144 MID CYCLE 64-357 LUTEAL PHASE 56-214 POSTMENOPAUSE < 32 PREPUBERTY < 20 MALE 10-18Y < 20 ADULT MALE < 40 Performed By: #### L H #### [facility] [address] [place] [address] PROGESTERONEon 08-11-2019 PROGESTERONE 1.2 ng/mL Normal [facility] Comment on above: Result Comment: Prog esterone is performed using the [employer] Access Immunoassay. Progesterone testing is performed using a different test methodology at [facility] than other [facility]. Direct result comparison should only be made within the same method. REF VALUES MALE <0.2-0.8 FOLLICULAR PHASE <0.2-1.5 LUTEAL PHASE 7.4-15.4 POSTMENOPAUSAL <0.2-0.2 1ST TRIMESTER 12.0-84.0 2ND TRIMESTER 10.2-58.8 3RD TRIMESTER 46.5-160 Performed By: #### L H #### [facility] [address] [place] [address] ESTRADIOLon 08-09-2019 ESTRADIOL 385 pg/mL Normal [facility] Comment on above: Result Comment: Estr adiol measurement is performed using the [employer] Access Immunoassay. Estradiol testing is performed using a different test methodology at [facility] than [facility]. Direct result comparison should only be made within the same method. REF VALUES FOLLICULAR PHASE 20-144 MID CYCLE 64-357 LUTEAL PHASE 56-214 POSTMENOPAUSE < 32 PREPUBERTY < 20 MALE 10-18Y < 20 ADULT MALE < 40 Performed By: #### L H #### [facility] [address] [place] [address] ESTRADIOLon 08-07-2019 ESTRADIOL 80 pg/mL [facility] [facility] Comment on above: Result Comment: Estr adiol measurement is performed using the [employer] Access Immunoassay. Estradiol testing is performed using a different test methodology at [facility] than [facility]. Direct result comparison should only be made within the same method. REF VALUES FOLLICULAR PHASE 20-144 MID CYCLE 64-357 LUTEAL PHASE 56-214 POSTMENOPAUSE < 32 PREPUBERTY < 20 MALE 10-18Y < 20 ADULT MALE < 40 Performed By: #### L H #### [facility] [address] [place] [address] ESTRADIOLon 08-04-2019 ESTRADIOL 58 pg/mL Normal [facility] Comment on above: Result Comment: Estr adiol measurement is performed using the [employer] Access Immunoassay. Estradiol testing is performed using a different test methodology at [facility] than [facility]. Direct result comparison should only be made within the same method. REF VALUES FOLLICULAR PHASE 20-144 MID CYCLE 64-357 LUTEAL PHASE 56-214 POSTMENOPAUSE < 32 PREPUBERTY < 20 MALE 10-18Y < 20 ADULT MALE < 40 Performed By: #### L H #### [facility] [address] [place] [address] ESTRADIOLon 07-07-2019 ESTRADIOL 110 pg/mL Normal [facility] Comment on above: Result Comment: Estr adiol measurement is performed using the [employer] Access Immunoassay. Estradiol testing is performed using a different test methodology at [facility] than [facility]. Direct result comparison should only be made within the same method. REF VALUES FOLLICULAR PHASE 20-144 MID CYCLE 64-357 LUTEAL PHASE 56-214 POSTMENOPAUSE < 32 PREPUBERTY < 20 MALE 10-18Y < 20 ADULT MALE < 40 Performed By: #### L H #### [facility] [address] [place] [address] NR MRI SELLA WO/Won 05-31-20 19 NR MRI SELLA WO/W Patient Name: KIARA ASHLEY STUDY: NR MRI SELLA WO/W; 05/31/2019 2:00 pm INDICATION: History of 7 mm microadenoma 2008. COMPARISON: None. ACCESSION NUMBER(S): [id number] ORDERING CLINICIAN: SHAHLA HEALY TECHNIQUE: High resolution [...] Electronically signed by: IRENE BLAKE PHYSICIAN Normal [facility] ESTRADIOLon 05-05-2019 ESTRADIOL 217 pg/mL Normal [facility] Comment on above: Result Comment: Estr adiol measurement is performed using the [employer] Access Immunoassay. Estradiol testing is performed using a different test methodology at [facility] than other [facility]. Direct result comparison should only be made within the same method. REF VALUES FOLLICULAR PHASE 20-144 MID CYCLE 64-357 LUTEAL PHASE 56-214 POSTMENOPAUSE < 32 PREPUBERTY < 20 MALE 10-18Y < 20 ADULT MALE < 40 Performed By: #### E STRA #### [facility] [address] [place] [address] LUTEINIZING HORMONEon 2018 LUTEINIZING HORMONE 4.4 IU/L Normal [facility] Comment on above: Result Comment: Lute inizing Hormone [LH] is performed using the [employer] Access Immunoassay. LH testing is performed using a different test methodology at [facility] than other [facility]. Direct result comparison should only be made within the same method. REF VALUES FOLLICULAR PHASE 1.5-10.0 MID-CYCLE 13.0-72.0 LUTEAL PHASE 0.5-13.0 MENOPAUSE 15.0-65.0 PREPUBERTY 0- 3.0 CHILDREN 0- 6.0 ADULT MALE 1.0- 9.0 Performed By: #### L H #### [facility] [address] [place] [address] ESTRADIOLon 04-11-2019 ESTRADIOL 118 pg/mL Normal [facility] Comment on above: Result Comment: Estr adiol measurement is performed using the [employer] Access Immunoassay. Estradiol testing is performed using a different test methodology at [facility] than [facility]. Direct result comparison should only be made within the same method. REF VALUES FOLLICULAR PHASE 20-144 MID CYCLE 64-357 LUTEAL PHASE 56-214 POSTMENOPAUSE < 32 PREPUBERTY < 20 MALE 10-18Y < 20 ADULT MALE < 40 Performed By: #### E STRA #### [facility] [address] [place] [address] LUTEINIZING HORMONEon 2018 LUTEINIZING HORMONE 7.7 IU/L Normal [facility] Comment on above: Result Comment: Lute inizing Hormone [LH] is performed using the [employer] Access Immunoassay. LH testing is performed using a different test methodology at [facility] than [facility]. Direct result comparison should only be made within the same method. REF VALUES FOLLICULAR PHASE 1.5-10.0 MID-CYCLE 13.0-72.0 LUTEAL PHASE 0.5-13.0 MENOPAUSE 15.0-65.0 PREPUBERTY 0- 3.0 CHILDREN 0- 6.0 ADULT MALE 1.0- 9.0 Performed By: #### L H #### [facility] [address] [place] [address] PROGESTERONEon 04-11-2019 PROGESTERONE 0.1 ng/mL Normal [facility] Comment on above: Result Comment: Prog esterone is performed using the Jose [employer] Access Immunoassay. Progesterone testing is performed using a different test methodology at [facility] than other [facility]. Direct result comparison should only be made within the same method. REF VALUES MALE <0.2-0.8 FOLLICULAR PHASE <0.2-1.5 LUTEAL PHASE 7.4-15.4 POSTMENOPAUSAL <0.2-0.2 1ST TRIMESTER 12.0-84.0 2ND TRIMESTER 10.2-58.8 3RD TRIMESTER 46.5-160 Performed By: #### P SVEN #### [facility] [address] [place] [address] ESTRADIOLon 03-17-2019 ESTRADIOL 120 pg/mL Normal [facility] Comment on above: Result Comment: Estr adiol measurement is performed using the [employer] Access Immunoassay. Estradiol testing is performed using a different test methodology at [facility] than [facility]. Direct result comparison should only be made within the same method. REF VALUES FOLLICULAR PHASE 20-144 MID CYCLE 64-357 LUTEAL PHASE 56-214 POSTMENOPAUSE < 32 PREPUBERTY < 20 MALE 10-18Y < 20 ADULT MALE < 40 Performed By: #### E STRA #### [facility] [address] [place] [address] LUTEINIZING HORMONEon 2018 LUTEINIZING HORMONE 6.8 IU/L Normal [facility] Comment on above: Result Comment: Lute inizing Hormone [LH] is performed using the [employer] Access Immunoassay. LH testing is performed using a different test methodology at [facility] than [facility]. Direct result comparison should only be made within the same method. REF VALUES FOLLICULAR PHASE 1.5-10.0 MID-CYCLE 13.0-72.0 LUTEAL PHASE 0.5-13.0 MENOPAUSE 15.0-65.0 PREPUBERTY 0- 3.0 CHILDREN 0- 6.0 ADULT MALE 1.0- 9.0 Performed By: #### L H #### [facility] [address] [place] [address] ESTRADIOLon 02-20-2019 ESTRADIOL 521 pg/mL Normal [facility] Comment on above: Result Comment: Estr adiol measurement is performed using the [employer] Access Immunoassay. Estradiol testing is performed using a different test methodology at [facility] than other [facility]. Direct result comparison should only be made within the same method. REF VALUES FOLLICULAR PHASE 20-144 MID CYCLE 64-357 LUTEAL PHASE 56-214 POSTMENOPAUSE < 32 PREPUBERTY < 20 MALE 10-18Y < 20 ADULT MALE < 40 Performed By: #### E STRA #### [facility] [address] [place] [address] LUTEINIZING HORMONEon 2018 LUTEINIZING HORMONE 3.5 IU/L Normal [facility] Comment on above: Result Comment: Lute inizing Hormone [LH] is performed using the [employer] Access Immunoassay. LH testing is performed using a different test methodology at [facility] than other [facility]. Direct result comparison should only be made within the same method. REF VALUES FOLLICULAR PHASE 1.5-10.0 MID-CYCLE 13.0-72.0 LUTEAL PHASE 0.5-13.0 MENOPAUSE 15.0-65.0 PREPUBERTY 0- 3.0 CHILDREN 0- 6.0 ADULT MALE 1.0- 9.0 Performed By: #### L H #### [facility] [address] [place] [address] Vital Signs Date Time Vital Sign Value Performing Clinician Modesto golden 12-27-2023 10:57-0500 Body mass index (BMI) [Ratio] 34.84 kg/m2 Bere JOHNSON Work Phone: [facility] 12-27-2023 10:57-0500 Body weight 83.64 kg Bere JOHNSON Work Phone: [facility] 12-27-2023 10:57-0500 Diastolic blood pressure 68 mm[Hg] Bere JOHNSON Work Phone: [facility] 12-27-2023 10:57-0500 Systolic blood pressure 110 mm[Hg] Bere JOHNSON Work Phone: [facility] 02-27-2023 11:35-0400 Body mass index (BMI) [Ratio] 29.26 kg/m2 Evelyn Perez Work Phone: [facility] 02-27-2023 11:35-0400 Body temperature 98.8 [degF] Evelyn Calderonrn Work Phone: [facility] [employer] 02-27-2023 11:35-0400 Body weight 72.58 kg Evelyn Calderonrn Work Phone: [facility] [employer] 02-27-2023 11:35-0400 Diastolic blood pressure 66 mm[Hg] Evelyn Calderonrn Work Phone: [facility] [employer] 02-27-2023 11:35-0400 Heart rate 88 /min Evelyn aClderonrn Work Phone: [facility] [employer] 02-27-2023 11:35-0400 Respiratory rate 14 /min Evelyn Calderonrn Work Phone: [facility] 02-27-2023 11:35-0400 SaO2% (BldA) [Mass fraction] 100 % Evelyn Calderonrn Work Phone: [facility] [employer] 02-27-2023 11:35-0400 Systolic blood pressure 103 mm[Hg] Evelyn Calderonrn Work Phone: [facility] [employer] 06-19-2021 14:03-0400 Body height 157.48 cm Evelyn Calderonrn Work Phone: GV-JRCBL-Qsabke 310 IVF Work Phone: 06-19-2021 14:03-0400 Body mass index (BMI) [Ratio] 29.26 kg/m2 Evelyn Calderonrn Work Phone: GY-UAHBN-Viyvio 310 IVF Work Phone: 06-19-2021 14:03-0400 Body surface area Derived from formula 1.74 m2 Evelyn Calderonrn Work Phone: IF-BSHMK-Zcmwis 310 IVF Work Phone: 06-19-2021 14:03-0400 Body weight 72.58 kg Evelyn Husain Ana Work Phone: CN-IXRRH-Hvxnwn 310 IVF Work Phone: 06-19-2021 14:03-0400 1 1 Evelyn M Ana Work Phone: OB-ZRJNR-Huepfj 310 IVF Work Phone: Comment on above: GRAV PARA 06-19-2021 14:03-0400 0 1 Evelyn Husain Ana Work Phone: AF-NELNT-Bjdxku 310 IVF Work Phone: Comment on above: [employer] 06-07-2020 10:41-0400 BMI (Body Mass Index) 34.93 kg/m2 King Lappen IE-LUHBR-EMT [address] [place] Work Phone: 06-07-2020 10:41-0400 Body weight 86.64 kg King Lappen ZB-BQWQA-CKI 120 0 [place] Work Phone: 06-07-2020 10:41-0400 BP Diastolic 76 mm[Hg] King Lappen UG-MWGML-PJM 120 0 [place] Work Phone: 06-07-2020 10:41-0400 BP Systolic 111 mm[Hg] King Lappen IW-FCKDM-EHE 120 0 [place] Work Phone: 06-07-2020 10:41-0400 BSA (Body Surface Area) 1.87 m2 King Lappen YY-FLLVW-BEW [address] [place] Work Phone: 06-07-2020 10:41-0400 Pulse (Heart Rate) 101 /min King Lappen ZX-WBQTQ-WNM 1200 [place] Work Phone: 06-07-2020 10:41-0400 0 1 King Lappen CH-ENSWH-BKX 120 0 [place] Work Phone: Comment on above: [employer] 12-25-2019 10:58-0500 BMI (Body Mass Index) 30.18 kg/m2 King Lappen IT-VDQPZ-OLC [address] [place] Work Phone: 12-25-2019 10:58-0500 Body weight 74.84 kg King Lappen VW-WBSXQ-SAT 120 0 [place] Work Phone: 12-25-2019 10:58-0500 BP Diastolic 68 mm[Hg] King Lappen WN-GTXQB-NTU 120 0 [place] Work Phone: 12-25-2019 10:58-0500 BP Systolic 112 mm[Hg] King Lappen FW-LIMKU-CPA 120 0 [place] Work Phone: 12-25-2019 10:58-0500 BSA (Body Surface Area) 1.76 m2 King Lappen AW-JDZRG-OFG 1200 [place] Work Phone: 11-09-2019 11:28-0500 Body Temperature 98.78 [degF] Kelechi Gage TZ-QRUNK-Cwcpft 310 IVF Work Phone: 11-09-2019 11:28-0500 BP Diastolic 76 mm[Hg] Kelechi Gage VV-WCEBP-Yurwca 310 IVF Work Phone: 11-09-2019 11:28-0500 BP Systolic 112 mm[Hg] Kelechi Gage AA-GZWXI-Olnbhv 310 IVF Work Phone: 11-09-2019 11:28-0500 Respiratory Rate 96 /min Kelechi Gage AH-UGXFW-Lfwdfm 310 IVF Work Phone: Encounters Encounter Date Encounter Type Care Provider Facility Start: 02-07-2024 End: 02-07-2024 ambulatory DEMARIO RIBEIRO Not Available Start: 01-24-2024 End: 01-24-2024 ambulatory BERE STEEL Not Available Start: 01-10-2024 End: 01-11-2024 ambulatory Zoya Buitrago OR DIRECTOR-SALES COMPENSATION ANALYST Facility:[facility] Start: 12-27-2023 End: 12-27-2023 ambulatory BERE STEEL Not Available Start: 12-27-2023 End: 12-27-2023 flow sheet Bere JOHNSON Work Phone: [facility] Comment on above: Third trimester preg teddy; First trimester ; Hypothyroidism, unspecified type (CMS/HCC); Hypothyroidism (acquired) (CMS/HCC); H/O blood clots; Excessive growth affecting management of in third trimester, single or unspecified fetus Start: 11-30-2023 End: 11-30-2023 ambulatory DEMAROI RIBEIRO Not Available Start: 11-03-2023 End: 11-03-2023 ambulatory DEMARIO RIBEIRO Not Available Start: 10-05-2023 End: 10-05-2023 ambulatory BERE STEEL Not Available Start: 09-14-2023 End: 09-14-2023 ambulatory Lc Waite Facility:[facility] Start: 02-27-2023 End: 02-27-2023 Emergency department patient visit EVELYN Husain ANA [facility] Start: 02-27-2023 End: 02-27-2023 Emergency department patient visit Evelyn UngerAna Work Phone: [facility] ED Comment on above: Sprain of left ankle , unspecified ligament, initial encounter (Primary Dx) Start: 01-11-2023 End: 01-11-[address] DEMARIO RIBEIRO . Facility:[facility] Start: 09-22-2022 End: 09-22-2022 Emergency department patient visit JAMI ROMERO [facility] Start: 03-10-[address] EVELYN [...] 12-27-2021 End: 12-27-2021 ambulatory Sabina Barnhart Other [employer] Other Start: 12-27-2021 Office outpatient visit 5 minutes Sabina Barnhart [facility] Start: 07-16-2021 Patient encounter procedure Evelyn Perez Work Phone: QP-OJDHY-Lsmvhs 310 IVF Work Phone: Start: 07-07-2021 AUDIT Evelyn castrohofabrizio Work Phone: ZV-BVFCV-Iqgxkd 310 IVF Work Phone: Start: 07-07-2021 Chart Update Evelyn santana Work Phone: ED-ZMHTS-Jelodc 310 IVF Work Phone: Start: 07-02-2021 Telephone encounter Evelyn gonzales Work Phone: BV-FJJBM-Cnwvkp 310 IVF Work Phone: Start: 06-19-2021 Patient encounter procedure Evelyn Perez Work Phone: FJ-HDQQQ-Hqyzyu 310 IVF Work Phone: Start: 06-07-2020 Patient encounter procedure King Lappen XI-DWJGG-CRD [address] [place] Work Phone: Start: 04-24-2020 Patient encounter procedure King Lappen UG-ZZUVD-EFZ 1200 [place] Work Phone: Start: 02-20-2020 Patient encounter procedure King Lappen YW-EEENB-RBJ 1200 [place] Work Phone: Start: 02-14-2020 Patient encounter procedure King Lappen GI-MCCVM-NUI 1200 [place] Work Phone: Start: 01-23-2020 Patient encounter procedure King Lappen XD-EBOVR-ZWA 1200 [place] Work Phone: Start: 12-25-2019 Patient encounter procedure King Lappen YS-PSNMM-YFD 1200 [place] Work Phone: Start: 11-21-2019 Patient encounter procedure King Lappen NE-TMLOJ-EGP 1200 [place] Work Phone: Start: 11-16-2019 Patient encounter procedure Kelechi Gage MP-Reproductive Endocrinology-[place] 206 Work Phone: Start: 11-14-2019 Patient encounter procedure Kelechi Gage IJ-XWLWM-Nqpecu 310 IVF Work Phone: Start: 11-09-2019 Patient encounter procedure Kelechi Gage FK-MHVJC-Yshqjk 310 IVF Work Phone: Start: 11-02-2019 Patient encounter procedure Kelechi Gage ZEE-Reproductive Endocrinology-[place] Work Phone: Start: 10-21-2019 Patient encounter procedure Kelechi Gage MP-Reproductive Endocrinology-[place] Work Phone: Start: 10-14-2019 Patient encounter procedure Kelechi Gage PA-KVHUK-Gucuav 310 IVF Work Phone: Start: 10-11-2019 Patient encounter procedure Kelechi Gage DY-LKROE-Hfmflz 310 IVF Work Phone: Start: 10-05-2019 Patient encounter procedure Kelechi Gage UB-MIYES-Drmxwh 320 Work Phone: Start: 10-02-2019 Patient encounter procedure Kelechi Gage ML-NUSMZ-Btabcij 206A IVF Work Phone: Start: 08-14-2019 Patient encounter procedure Kelechi Gage RV-AXXNE-Yebljc 310 IVF Work Phone: Start: 08-13-2019 Patient encounter procedure Kelechi Gage PR-LEICM-Oafiou 310 IVF Work Phone: Start: 08-12-2019 Patient encounter procedure Kelechi TONGNU-XLSAI-Xpuihl 310 IVF Work Phone: Start: 08-11-2019 Patient encounter procedure Kelechi TONGMI-ESODO-Asyrge 310 IVF Work Phone: Start: 08-09-2019 Patient encounter procedure Kelechi Gage FN-QBPCO-Xqbjqq 310 IVF Work Phone: Start: 08-07-2019 Patient encounter procedure Kelechi TONGQJ-ZQGAM-Nisxrr 310 IVF Work Phone: Start: 08-04-2019 Patient encounter procedure Kelechi Gage IM-NLHLM-Dboycr 310 IVF Work Phone: Start: 07-07-2019 Patient encounter procedure Kelechi TONGES-XOPFA-Oaqrqp 310 IVF Work Phone: Start: 06-08-2019 Patient encounter procedure Kelechi TONGHB-QTMNK-Uyyxem 310 IVF Work Phone: Start: 05-17-2019 Patient encounter procedure Kelechi TONGGS-NIFBU-Vtstwe 310 IVF Work Phone: Start: 05-08-2019 Patient encounter procedure Kelechi TONGTG-FJPVQ-Klfuxw 310 IVF Work Phone: Start: 05-05-2019 Patient encounter procedure Kelechi Gage VE-CFDWG-Mahbrb 310 IVF Work Phone: Start: 04-13-2019 Patient encounter procedure Kelechi Gage HE-FCYHD-Bvdoyv 310 IVF Work Phone: Start: 04-11-2019 Patient encounter procedure Kelechi Gage ON-YOHTH-Jsrehg 310 IVF Work Phone: Start: 03-20-2019 Patient encounter procedure Kelechi Gage PA-BQQBZ-Ufjucj 310 IVF Work Phone: Start: 03-17-2019 Patient encounter procedure Kelechi Gage VY-JFIUJ-Rkmqoi 310 IVF Work Phone: Start: 02-22-2019 Patient encounter procedure Kelechi Gage PE-GGMLK-Arluwb 310 IVF Work Phone: Start: 02-20-2019 Patient encounter procedure Kelechi TONGRL-PUYYH-Nsksxe 310 IVF Work Phone: Start: 02-13-2019 Patient encounter procedure Bruce Mayes Facility:[facility] Start: 02-08-2019 End: 02-12-2019 Patient encounter procedure Bruce Mayes Facility:[facility] Start: 01-19-2019 Patient encounter procedure Kelechi TONGXZ-KVDLV-Zfkxlc 310 IVF Work Phone: Patient encounter status Evelyn Perez Work Phone: DE-NHTFO-Ddhfgv 310 IVF Work Phone: Procedures Date Procedure [...] Too Start: 09-20-2019 Gonadotropin luteini zing hormone Kelechi Gage Start: 09-20-2019 IO Ultrasound, limit ed pelvic, follicle monitoring Kelechi Gage Start: 08-21-2019 IO Ultrasound, limit ed pelvic, follicle monitoring Kelechi Gage Extraction of wisdom tooth Eve aguirre Too Plan of Treatment Date Care Activity Detail Author Start: 02-07-2024 End: 02-07-2024 Patient encounter procedure 02/07/2024 9:40 AM EDT Routine [facility] [address] [facility] [place] [address] Demario Ribeiro DO [address] [place] [address] [facility] Start: 02-07-2024 End: 02-07-2024 Professional / ancillary services management 02/07/2024 9:00 AM EDT Ancillary Procedure [facility] [address] [place], [place] [address] [facility] Start: 01-24-2024 End: 01-24-2024 Patient encounter procedure 01/24/2024 9:30 AM EDT Routine [facility] [address] [facility] [place] [place] [id number] Bere Steel PA [address] [place] [address] [facility] Start: 01-10-2024 End: 01-10-2024 Patient encounter procedure 01/10/2024 2:20 PM EST Routine [facility] [address] [place], [place] [address] Demario Ribeiro DO [address] [facility] [place] [address] [facility] Start: 01-10-2024 End: 01-10-2024 Professional / ancillary services management 01/10/2024 2:00 PM EST Ancillary Procedure [facility] [address] [facility] [address] [place] [address] [facility] Start: 12-27-2023 End: 12-27-2024 US biophysical profile w non stress test US biophysical profile w non stress test Imaging Routine Hypothyroidism (acquired) (CMS/HCC) H/O blood clots Expected: 12/27/2023 (Approximate), Expires: 12/27/2024 [facility] Work Phone: Comment on above: Expected: 12/27/2023 (Approximate), Expires: 12/27/2024 Start: 12-27-2023 End: 12-27-2024 US for US OB SCAN FOR GROWTH Imaging Routine Hypothyroidism, unspecified type (CMS/HCC) Excessive growth affecting management of in third trimester, single or unspecified fetus Expected: 12/27/2023 (Approximate), Expires: 12/27/2024 [facility] Comment on above: Expected: 12/27/2023 (Approximate), Expires: 12/27/2024 Start: 06-15-2023 Influenza vaccination Flu vacc ine (Season Ended) [facility] Start: 2021 Screening for malignant neoplasm of cervix [facility] Start: 07-25-2021 ULTRASOUND, Provider : OBGYRosenda IVF RDMS [place] 1,[facility], Status: Pen, Time: 9:00 AM ULTRASOUND, Provider: OBGYN IVF RDMS AR[place] 1,[facility] O[facility], Status: Pen, Time: 9:00 AM DD-PPQKZ-Vnfiwh 310 IVF Work Phone: Start: 07-16-2021 ULTRASOUND, Provider : OBGYN IVF RDMS [id number] 1,[facility], Status: Pen, Time: 1:00 PM ULTRASOUND, Provider: OBGYN IVF RDMS [id number] 1,[facility], Status: Pen, Time: 1:00 PM HX-MBFCO-Eswiwo 310 IVF Work Phone: Start: 07-07-2021 ULTRASALIN, Provider : Miguel A Barrera, Status: Pen, Time: 10:00 AM ULTRASALIN, Provider: Miguel A Barrera, Status: Pen, Time: 10:00 AM GS-RIWFQ-Ldhqsk 310 IVF Work Phone: Start: 06-05-2020 MAC Imaging Order MG-PRODUCT SAFETY LEAD-MAC 1200 [place] Work Phone: Start: 11-16-2019 IO Ultrasound, -Reproductive Endocrinology-[facility] chastity 206 Work Phone: Start: 11-14-2019 Blood count complete auto&auto difrntl wbc Complete Blood Count + Differential XY-RZSED-Hpjypl 310 IVF Work Phone: Start: 11-14-2019 Comprehensive metabolic 2000 panel JK-RALSN-Nlmndw 310 IVF Work Phone: Start: 11-02-2019 Gonadotropin chorion ic quantitative HCG, Beta Quantitative MP-Reproductive Endocrinology-[place] 206 Work Phone: Start: 10-11-2019 IO Ultrasound, limited pelvic, follicle monitoring QG-RIGML-Niuusx 310 IVF Work Phone: Start: 10-05-2019 IO Ultrasound, limited pelvic, follicle monitoring TA-AQKUO-Tkshui 320 Work Phone: Start: 2012 Screening for malignant neoplasm of cervix Pap smear [facility] Start: 2010 DTaP/Tdap/Td vaccine (1 - Tdap) DTaP/Tdap/Td vaccine (1 - Tdap) [facility] Start: 2009 Hepatitis C screening Hepatitis C sc reen [facility] Start: 2006 HIV screening [facility] screen [facility] Start: 2003 Depression Screen Depression Screen [facility] Start: 1992 Varicella vaccine (1 of 2 - 2-dose childhood series) Varicella vaccine (1 of 2 - 2-dose childhood series) [facility] Start: 03-02-1992 COVID-19 Vaccine (#1) COVID-19 Vacci ne (#1) [facility] Assay of estradiol Estradiol, Serum MG-PRODUCT SAFETY LEAD-[place] 310 IVF Work Phone: Comment on above: Approx [id number] Approx [id number] Approx [id number] Assay of progesterone Progesterone, Serum RP-FOADF-Bbtqoz 310 IVF Work Phone: Comment on above: Approx [id number] Gonadotropin luteinizing hormone Luteinizing Hormone, Serum IL-VXFBS-Mjbbxw 310 IVF Work Phone: Comment on above: Approx [id number] CK-XPLLL-Yyhpwo 320 Work Phone: IO Ultrasound, l imited pelvic, follicle monitoring CX-SOFZA-Arxhig 310 IVF Work Phone: Comment on above: Approx [id number] Approx [id number] Approx [id number] NEGATED: Highlighted row has been ruled out! Planned Goals not documented BS-MFSEO-Adgrly 310 IVF Work Phone: Payers Date Payer Category Payer Self-pay 2016 Private Health Insurance [id number] 2016 Private Health Insurance [id number] 1991 Unknown [id number] 2.16.84 [id number] 1991 Unknown [id number] 2.16.84 [id number] 1991 Unknown [id number] 2.16.84 [id number] 1991 Unknown [id number] 2.16.84 [id number] 1991 Unknown [id number] 2.16.84 [id number] 1991 Unknown [id number] 2.16.84 [id number] 1991 Unknown [id number] 2.16.84 [id number] 1991 Unknown [id number] 2.16.84 [id number] 1991 Unknown [id number] 2.16.84 [id number] 1991 Unknown [id number] 2.16.84 0.1.339020.3.579.2.593 1991 Unknown [id number] 2.16.84 [id number] 1991 Unknown [id number] 2.16.84 [id number] 1991 Unknown [id number] 2.16.84 0.1.971011.3.579.2.593 1990 Unknown [id number] 2.16.84 0.1.286333.3.579.2.593 1991 Unknown [id number] 2.16.8 40.1.397148.3.579.2.173 1991 Unknown [id number] 2.16.8 40.1.855439.3.579.2.173 1991 Unknown [id number] 2.16. 840.1.173287.3.579.2.196 1991 Unknown [id number] 2.16. 840.1.630995.3.579.2.196 1991 Unknown [id number] 2.16.84 0.1.459220.3.579.2.1259 1991 Unknown [id number] 2.16.84 0.1.481487.3.579.2.1259 1991 Unknown [id number] 2.16.84 0.1.178510.3.579.2.1259 1991 Unknown [id number] 2.16.84 0.1.780901.3.579.2.1259 1991 Unknown [id number] 2.16.84 0.1.128799.3.579.2.1259 1991 Unknown [id number] 2.16.840 .1.643441.3.579.2.1259 1991 Unknown [id number] 2.16.840 .1.886679.3.579.2.1259 1959 Self-pay [id number] 1959 Unknown [id number] 1959 Unknown [id number] Unknown [id number] 2.16.8 40.1.107918.3.579.2.243 Unknown [id number] 2.16.8 40.1.710661.3.579.2.243 Unknown Unknown [id number] 2.16.8 40.1.679467.3.579.2.531 Social History Date Type Detail Facility - - [id number] 310 IVF Work Phone: Start: 05-11-2023 End: 12-27-2023 Never a smoker Never a smoker [facility] Comment on above: [facility]; Start: 05-11-2023 End: 09-06-2023 Sex Assigned At [facility] Start: 09-22-2022 End: 04-15-2023 Tobacco smoking status NHIS Never smoked tobacco [employer] Phone: Start: 09-22-2022 End: 04-15-2023 Tobacco use and exposure Smokeless tobacco non-user [employer] Phone: Start: 1990 Sex Assigned At Not on file B ON [employer] Phone: Start: 02-17-2023 End: 02-27-2023 Exposure to SARS-CoV-2 (event) Not sure [employer] Start: 12-27-2023 Alcohol intake Current drinke r [...] status health issues are not documented Disease [id number] 310 IVF Work Phone: Mental Status Date Assessment Result Facility NEGATED: Highlighted row Cognitive function [Interpretation] Cognitive status health issues are not documented Disease [id number]-[id number] 310 IVF Work Phone: History of Present [...] of: ELIZABETH Daly documented in this encounter [facility] Healthcare Evaluation note 12-27-2021 Note [...] instructions given in writting by [facility] [place][NOTE 2] Care At Home document. [employer] Other Clinical Note 07-25-2021 Note Date & [...] care. Reviewed plan with Dr. Bruce Aburto, SALES COMPENSATION ANALYST 07/25/2021 09:22 MD note: ob scan LOLLY: [...] Plan reviewed by Dr. Healy. Petra Harjit SALES COMPENSATION ANALYST 07/16/21 1409 TC to pt with quant = 3238 form yesterday; normal rise from 728 on 07/02; Pt doing well; no problems with Lovenox. PT transferred to [facility] to schedule OB US for next week at [facility]. Bere [address] RN 07/07/2021 11:47 Spoke with patient regarding PZAM=256. Pain=0. Patient states she will begin prometrium BID and Lovenox today. Patient will repeat BHCg on Wednesday when she is at work. Patient aware RN will call her WednesdayJuly 07 with results and plan. Lucy Dunlap R.N.07/03/2021 12:19 Spoke to patient, will start Prometrium 100 mg BID and Lovenox 40 mg BID today (+Protein S deficiency). [place] to f/u with patient tomorrow once HCG level is back. Patient verbalized understanding. Rosibel Sam RN 07/02/2021 13:54 MD note: Reviewed positive test. LMP 7/15, conceived on christy cycle/IC. Plan to get HCG drawn today. Start Prometrium 100mg BID. Start Lovenox 40mg BID SQ. Plan per Dr. Healy. RN to communicate. Petra Lombardi SALES COMPENSATION ANALYST 07/02/21 1304 Active Problems 16 weeks gestation [...] directed. Peak F (more content not included)... [facility] Chief complaint Narrative - Reported 06-19-2021 Note [...] pandemic. Verbal consent obtained for telemedicine visit.[employer] [id number] 310 IVF Work Phone: History of Present illness Narrative 06-15-2020 Note Date & Type Note Facility 06-15-2020 History of Present illness Narrative IVF Consult:Patient is a 30 year-old who presents for a FET [id number] Hx:06/2020: IOL @ 38 weeks due to [...] contour on HSG - images reviewed from [facility] 08/2018Uterine Cavity Evaluation:Normal uterine cavity [...] on therapeutic dosing when Genetic Screening Hx: [employer] foresight screen negativePartner History:Franklin Ashley 04/09/1989A in past year:2.8 cc125 mil/mL69% pqbsoaahSNE=723 million(recent IUI sample)Morph from original SA was 2.8% [id number] 310 IVF Work Phone: Evaluation note Note Date & Type Note Facility Evaluation note Diagnosis Sprain of left ankle, unspecified ligament, initial encounter- Primary documented in this encounter [employer] Phone: Evaluation note Note Date & Type Note Facility Evaluation note Diagnosis Third trimester state, incidental First trimester state, incidental Hypothyroidism, unspecified type ([facility]) Hypothyroidism (acquired) ([facility]) Unspecified hypothyroidism H/O blood clots Excessive growth affecting management of in third trimester, single or unspecified fetus documented in this encounter [facility] Discharge instructions Attachments Note Date & Type Note Facility Hospital Discharge instructions The following attachments cannot be sent through Care Everywhere.Ankle Sprain ([place])Ankle Sprain: Rehab Exercises ([place])documented in this encounter [employer] Phone: Summary Purpose Family History No Family [...] DATE CREATED AUTHOR AUTHOR'S ORGANIZ ATION 11/12/2019 [facility] DATE CREATED AUTHOR AUTHOR'S ORGANIZ ATION 08/09/2020 [facility] DATE CREATED AUTHOR AUTHOR'S ORGANIZ ATION 07/26/2021 [employer] DATE CREATED AUTHOR AUTHOR'S ORGANIZ ATION 01/21/2023 [facility] DATE CREATED AUTHOR AUTHOR'S ORGANIZ ATION 03/06/2023 [facility] DATE CREATED AUTHOR AUTHOR'S ORGANIZ ATION 07/12/2023 [facility] DATE CREATED AUTHOR AUTHOR'S ORGANIZ ATION 10/04/2023 [facility] DATE CREATED AUTHOR AUTHOR'S ORGANIZ ATION 01/15/2024 [facility] DATE CREATED AUTHOR AUTHOR'S ORGANIZ ATION 02/07/2024 [facility] dical Specialists EPIC REASON FOR VISIT (unrecogniz ed section and content) Reason Comments Ankle Pain Rolled ankle during morning run. Swelling to lateral ankle. 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 Reason Comments Routine Visit Care Teams (unrecognized sec tion and content) Esthetic Dermatologist Relationship Specialty Start Date End Date Evelyn Perez [address] [place] [address] PCP - General Pediatrics 09/22/22 Esthetic Dermatologist Relationship Specialty Start Date End Date Jesse Regan MD [address] [place] [address] PCP - General Family Medicine 11/30/23 FOR [...] BE BASED ON THE PRIMARY CLINICAL RECORDS. [employer] provides no warranty or guarantee of the accuracy or completeness of information in this document.
[2024-02-15 10:14] VITALS: BP 105/63; PULSE 80
[2024-02-15] MEDS: BETAMETHASONE ACE/BETAMETHASONE SOD PHOS 30 MG/5 ML 12 MG IM (11:35)
== END 2024-02-15 11:40 | disposition home or self-care (01) ==
LOC: US 08:00 → FBC 10:05
PROVIDERS: Visit Provider Obstetrics & Gynecology
DX: E03.9 Hypothyroidism, unspecified (principal); O36.63X0 Maternal care for excessive fetal growth, third trimester, not applicable or unspecified; Z3A.35 35 weeks gestation of pregnancy
CPT/HCPCS: 76818; 96372; J0702

== ENCOUNTER 2024-02-16 07:40 | Outpatient (OUT) | payer OTHER, SELFPAY ==
--- OUTSIDE RECORDS SUMMARY | 2024-02-16 07:54 | XMS_ITS | CCD ---
Author Organization [facility] Care Team Providers Care Mail Handler Sorter Name Role Phone Bruce Mayes Attending Unavailable [...] HER Unavailable Unavaila ble OBGYN IVF RDMS [id number], MG OBGYN Unavailable Unavailable Lapkathrine King [...] Unavailable Jesse Regan MD Primary Care Provider [phone] [facility] Zoya Cheung Attending Evelyn Robertson MD Primary Care Zamzam vailasánchez Perez MD, Evelyn Gracia Primary Care Zamzam vailable Link [employer], Zoya Cheung Attending Zamzamva DEMARIO Hoang Attending Unavailable BERE STEEL Attending Unavailable ELSA, BERE Attending Unavailable DEMARIO RIBEIRO Attending Unavailable BREE STEEL Attending Unavailable DEMARIO RIBEIRO Attending Unavailable DEMARIO RIBEIRO Attending Unavailable Allergies Allergy Classification Reported Allergen(s) Allergy Type Date of Onset Reaction(s) Facility Progesterone (2 sources) Progesterone; Translations: [Progesterone OIL] Drug Allergy [id number] n 310 IVF Work Phone: (16 sources) Progesterone; Translations: [Progesterone OIL] Drug Allergy [address] [facility] (2 sources) sesame seed extract Drug Allergy [facility] (2 sources) Progesterone Drug Allergy 2 [facility] (1 source) No Known Medication Allergies; Translations: [No Known Medication Allergies] Propensity to adverse reactions to drug (disorder) [facility] Repository Medications Current Medications Medication Drug Class(es) [...] Kelechi Gage MD Start : 14-Aug-2019 Active [id number] 200 actuat albuterol 0.09 mg/actuat metered dose [...] DO Start : 19-Jan-2019 Active BD Disp [place] 27G X 1/2 (19 sources) Start: 10-03-2019 BD Disp Needle s 27G X 1/2 USE DIRECTED. Quantity: 2 Refills: 2 Shahla Healy MD Start : 03-Oct-2019 Active chorionic gonadotropin 56373 unt/ml injectable solution (19 sources) Gonadotropin Start: 10-03-2019 Chorionic Gonadotropin 60176 UNIT Intramuscular Solution Reconstituted USE DIRECTED. Quantity: [...] Start : 25-Dec-2019 Active Peak Flow Meter Jericho Rang Device (3 sources) Start: 01-23-2020 Peak Flow Mete r Jericho Rang Device USE DIRECTED. Quantity: 1 Refills: [...] refills. Continue with anticoagulation as prescribed by WOOL PULLER, patient is currently 30 weeks gestation. Follow-up [...] embolism Historical No qualifying data Procedure/Surgical History Carlton Teeth Removal (2005) IVF (11/15/2018) Medications Dulera [...] Link Zoya PERKINS 01/10/24 12:40 EST Normal [facility] Phone Note - Heme Onc-medica tion questionon 07-12-2023 Phone Note - Heme Onc-medication question Phone Call Information: Patient Demographics: Name: KIARA ASHLEY Date: 1990 Address: [address] [place] [address] Date and Time: 12-Jul-2023 09:31 Caller Information: call from Call From: patient Caller Name: Kiara Primary Phone Number: [phone] Reason for Call: Reason for Callmedication question Message: Message: Patient found out yesterday that she is so she will need to double her Lovenox Asking for new RX Caller Informed Of: Per Dr. Mayes: she needs lovenox 40 mg SC BID for first trimester Team Communication: Clinician note: contacted patient Disposition: Rx sent by [facility] Team Communications: Spoke with the patient. States she is positive for . Provided update from Dr. Mayes above. Pt asked for script to be sent to [facility]. Script sent. Pt had no further questions [...] 09:57 by Harmony Ross (N MGR) Normal [facility] XR ANKLE LEFT (MIN 3 [...] Dario William MD 02/27/23 Final result Normal [facility] 1. No acute osseous abnormality involving the left ankle. [facility] EXAMINATION: THREE XRAY VIEWS OF THE LEFT ANKLE 02/27/2023 11:46 am COMPARISON: None. HISTORY: ORDERING SYSTEM PROVIDED HISTORY: pain, swelling TECHNOLOGIST PROVIDED HISTORY: pain, swelling FINDINGS: The bone mineralization is within normal limits. The ankle mortise is stable. No acute fractures or dislocations are seen. There is no soft tissue swelling. [facility] Dario William MD - 02/27/2023 [...] acute osseous abnormality involving the left ankle. [facility] Phone: Radiology Study observation (narrative) [facility] Phone: XR ANKLE LEFT (MIN 3 VIEWS)O rdered By: Dario Stewart on 02-27-2023 [facility] Phone: PAP ACOG PANEL 2: 30 to 65on 01-19-2023 . . Normal [facility] Comment on above: Result Comment: Perf ormed at: WB Performed By: #### [id number] #### [facility] [address] [address] [address] Claire Mayes Age Gdln ACOG Testing 31- Normal [facility] Comment on above: Performed By: #### [id number] #### [facility] [address] [address] [address] Claire Mayes DIAGNOSIS: Comment Normal [facility] Comment on above: Result Comment: NEGA TIVE FOR INTRAEPITHELIAL LESION OR MALIGNANCY. Performed at: WB Performed By: #### [id number] #### [facility] [address] [address] [address] Claire Mayes HPV Aptima Negative Normal Negative [facility] Comment on above: Result Comment: This nucleic acid amplification test detects fourteen high-risk HPV types (16,18,31,33,35,39,45,51,52,56,58,59,66,68) without differentiation. Performed at: =G Performed By: #### [id number] #### [facility] [address] [address] [address] Claire Mayes HPV Genotype Reflex Comment Normal [facility] Comment on above: Result Comment: Crit eria not met, HPV Genotype not performed. Performed at: WB Performed By: #### [id number] #### [facility] [address] [address] [address] Claire Mayes Methodology: Comment Normal [facility] Comment on above: Result Comment: This liquid based ThinPrep(R) pap test was screened with the use of an image guided system. Performed at: WB Performed By: #### [id number] #### [facility] [address] [place] [address] Dr. Claire Mayes Note: Comment Normal [facility] Comment on above: Result Comment: The Pap smear is a screening test designed to aid in the detection of premalignant and malignant conditions of the uterine cervix. It is not a diagnostic procedure and should not be used as the sole means of detecting cervical cancer. Both false-positive and false-negative reports do occur. . Performed at: WB Performed By: #### [id number] #### [facility] [address] [place] [address] Dr. Claire Mayes Performed by: Comment Normal [facility] Comment on above: Result Comment: Sherlyn Wright, Supervisor [employer] (ASCP) Performed at: WB Performed By: #### 4 [id number] #### [facility] [address] [place] [address] Dr. Claire Mayes Specimen adequacy: Comment Normal [facility] Comment on above: Result Comment: Sati sfactory for evaluation. No endocervical component is identified. Performed at: WB Performed By: #### [id number] #### [facility] [address] [place] [address] Dr. Claire Mayes CBC with Diffon 09-22-2022 Abs. Basophil 0.03 k/uL Normal 0.00-0.20 [facility] Comment on above: Performed By: #### L BJ BUCK, CP #### [facility] [address] [place] [address] Dr. [address] [place] [id number] Construction Economist: Jesse Curry MD Abs.Imm.Granulocy te 0.04 k/uL Normal 0.00-0.30 [facility] Comment on above: Performed By: #### L BJ BUCK, CP #### [facility] [address] [place] [id number] Construction Economist: Jesse Curry MD Abs.Neutrophil (Seg) 12.54 k/uL High 1.50-8.10 [facility] Comment on above: Performed By: #### L IP, CDP, CP #### [facility] [address] [place], [place] [address] Construction Economist: Jesse Curry MD Basophils/100 WBC (Bld) 0 % Normal 0-2 [facility] Comment on above: Performed By: #### L IP, CDP, CP #### [address] [place], [place] [address] Construction Economist: Jesse Curry MD Eosinophils (Bld) [#/Vol] 0.16 10*3/uL Normal 0.00-0.44 [facility] Comment on above: Performed By: #### L IP, CDP, CP #### [address] [place], [place] [address] Construction Economist: Jesse Curry MD Eosinophils/100 WBC (Bld) 1 % Normal 1-4 [facility] Comment on above: Performed By: #### L IP, CDP, CP #### [address] [place], [facility]83 Construction Economist: Jesse Curry MD Erythrocyte distribution width (RBC) [Ratio] 13.6 % Normal 11.8-14.4 [facility] Comment on above: Performed By: #### L IP, CDP, CP #### [address] [place], [place] [address] Construction Economist: Jesse Curry MD Hematocrit (Bld) [Volume fraction] 46.4 % Normal 36.3-47.1 [facility] Comment on above: Performed By: #### L IP, CDP, CP #### [address] [place], [facility]83 Construction Economist: Jesse Curry MD Hemoglobin (Bld) [Mass/Vol] 15.6 g/dL High 11.9-15.1 [facility] Comment on above: Performed By: #### L IP, CDP, CP #### [facility] [address] [place], [place] [id number] Construction Economist: Jesse Curry MD Immature granulocytes/100 WBC (Bld) 0 % Normal 0 [facility] Comment on above: Performed By: #### L IP, CDP, CP #### [address] [place], [facility]83 Construction Economist: Jesse Curry MD Lymphocytes (Bld) [#/Vol] 0.98 10*3/uL Low 1.10-3.70 [facility] Comment on above: Performed By: #### L IP, CDP, CP #### [address] [place], [facility]83 Construction Economist: Jesse Curry MD Lymphocytes/100 WBC (Bld) 7 % Low 24-43 [facility] Comment on above: Performed By: #### L IP, CDP, CP #### [address] [place], [facility]83 Construction Economist: Jesse Curry MD MCH (RBC) [Entitic mass] 30.4 pg Normal 25.2-33.5 [facility] Comment on above: Performed By: #### L IP, CDP, CP #### [address] [place], [facility]83 Construction Economist: Jesse Curry MD MCHC (RBC) [Mass/Vol] 33.6 g/dL Normal 28.4-34.8 [facility] Comment on above: Performed By: #### L IP, CDP, CP #### [address] [place] [address] Construction Economist: Jesse Curry MD MCV (RBC) [Entitic vol] 90.3 fL Normal 82.6-102.9 [facility] Comment on above: Performed By: #### L IP, CDP, CP #### [address] [place], [facility]83 Construction Economist: Jesse Curry MD Monocytes (Bld) [#/Vol] 0.58 10*3/uL Normal 0.10-1.20 [facility] Comment on above: Performed By: #### L IP, CDP, CP #### [facility] [address] [place], [facility]83 Construction Economist: Jesse Curry MD Monocytes/100 WBC (Bld) 4 % Normal 3-12 [facility] Comment on above: Performed By: #### L IP, CDP, CP #### [address] [place], [place] [address] Construction Economist: Jesse Curry MD Neutrophil (Seg) 88 % High 36-65 [facility] Comment on above: Performed By: #### L IP, CDP, CP #### [address] [place], [facility]83 Construction Economist: Jesse Curry MD NRBC Automated 0.0 per 100 WBC Normal 0.0 [facility] Comment on above: Performed By: #### L IP, CDP, CP #### [address] [place], [facility]83 Construction Economist: Jesse Curry MD Platelet mean volume (Bld) [Entitic vol] 9.9 fL Normal 8.1-13.5 [facility] Comment on above: Performed By: #### L IP, CDP, CP #### [facility] [address] [place] [address] Dr. [place], [facility]83 Construction Economist: Jesse Curry MD Platelets (Bld) [#/Vol] 299 10*3/uL Normal 138-453 [facility] Comment on above: Performed By: #### L IP, CDP, CP #### [facility] [address] [place], [facility]83 Construction Economist: Jesse Curry MD RBC (Bld) [#/Vol] 5.14 10*6/uL High 3.95-5.11 [facility] Comment on above: Performed By: #### L BJ BUCK, CP #### [facility] [address] [place], [place] [id number] Construction Economist: Jesse Curry MD WBC (Bld) [#/Vol] 14.3 10*3/uL High 3.5-11.3 [facility] Comment on above: Performed By: #### L BJ BUCK, CP #### [facility] [address] [place] [address] Construction Economist: Jesse Curry MD CT ABDOMEN PELVIS W [...] A Maldonado DO 09/22/22 Final result Normal [facility] Comp Metabolic Profon 2021 Albumin [Mass/Vol] 4.7 g/dL Normal 3.5-5.2 [facility] Comment on above: Performed By: #### L IP, CDP, CP #### [facility] [address] [place] [address] Construction Economist: Jesse Curry MD Albumin/Glob Ratio 2.0 Normal 1.0-2.5 [facility] Comment on above: Performed By: #### L IP, CDP, CP #### [address] [place] [address] Construction Economist: Jesse Curry MD Alkaline Phos 77 U/L Normal 35-104 [facility] Comment on above: Performed By: #### L IP, CDP, CP #### [address] [place] [address] Construction Economist: Jesse Curry MD ALT [Catalytic activity/Vol] 10 U/L Normal 5-33 [facility] Comment on above: Performed By: #### L IP, CDP, CP #### [address] [place] [address] Construction Economist: Jesse Curry MD Anion gap [Moles/Vol] 12 mmol/L Normal 9-17 [facility] Comment on above: Performed By: #### L IP, CDP, CP #### [address] [place] [address] Construction Economist: Jesse Curry MD AST [Catalytic activity/Vol] 14 U/L Normal <32 [facility] Comment on above: Performed By: #### L IP, CDP, CP #### [facility] [address] [place], [place] [id number] Construction Economist: Jesse Curry MD Bilirubin [Mass/Vol] 0.6 mg/dL Normal 0.3-1.2 [facility] Comment on above: Performed By: #### L IP, CDP, CP #### [facility] [address] [place], [place] [id number] Construction Economist: Jesse Curry MD BUN/CRE Ratio 31 High 9-20 [facility] Comment on above: Performed By: #### L IP, CDP, CP #### [address] [place], [place] [id number] Construction Economist: Jesse Curry MD Calcium [Mass/Vol] 9.8 mg/dL Normal 8.6-10.4 [facility] Comment on above: Performed By: #### L IP, CDP, CP #### [facility] [address] [place] [address] Dr. [place], [place] [id number] Construction Economist: Jesse Curry MD Chloride [Moles/Vol] 104 mmol/L Normal 98-107 [facility] Comment on above: Performed By: #### L IP, CDP, CP #### [facility] [address] [place] [address] Dr. [place], [place] [id number] Construction Economist: Jesse Curry MD CO2 [Moles/Vol] 22 mmol/L Normal 20-31 [facility] Comment on above: Performed By: #### L IP, CDP, CP #### [facility] [address] [place] [address] Dr. [place], [place] [id number] Construction Economist: Jesse Curry MD Creatinine [Mass/Vol] 0.85 mg/dL Normal 0.50-0.90 [facility] Comment on above: Performed By: #### L IP, CDP, CP #### [facility] [address] [place] [address] Dr. [place], [place] [id number] Construction Economist: Jesse Curry MD GFR/1.73 sq M.predicted among non-blacks MDRD (S/P/Bld) [Vol rate/Area] mL/min/{1.73_m2} Normal >60 [facility] Comment on above: Result Comment: Effective [...] By: #### L BJ BUCK, CP #### [address] [place] [address] Construction Economist: Jesse Curry MD Glucose [Mass/Vol] 109 mg/dL High 70-99 [facility] Comment on above: Performed By: #### L BJ BUCK, CP #### [address] [place] [address] Construction Economist: Jesse Curry MD Potassium [Moles/Vol] 4.0 mmol/L Normal 3.7-5.3 [facility] Comment on above: Performed By: #### L CIELO CDP, CP #### [address] [place] [address] Construction Economist: Jesse Curry MD Protein [Mass/Vol] 7.1 g/dL Normal 6.4-8.3 [facility] Comment on above: Performed By: #### L CIELO CDP, CP #### [address] [place] [address] Construction Economist: Jesse Curry MD Sodium [Moles/Vol] 138 mmol/L Normal 135-144 [facility] Comment on above: Performed By: #### L IP CDP, CP #### [address] [place] [address] Construction Economist: Jesse Curry MD Urea nitrogen [Mass/Vol] 26 mg/dL High 6-20 [facility] Comment on above: Performed By: #### L BJ BUCK, CP #### [facility] [address] [place] [address] Construction Economist: Jesse Curry MD HCG, ,Urineon 09-22 Beta HCG ( test) Ql (U) Negative Normal NEG [facility] Comment on above: Result Comment: Spec imens with hCG levels near the threshold of the test (25 mIU/mL) may give a negative or indeterminate result. In such cases, another test should be performed with a new specimen in 48-72 hours. If early is suspected clinically in this setting, correlation with quantitative serum b-hCG level is suggested. [facility] has confirmed the use of plasma for this test. This has not been cleared or approved by the U.S. Food and Drug Administration. The FDA has determined that such clearance is not necessary. Performed By: #### U HCG #### [facility] [address] [place] [address] Construction Economist: Jesse Curry MD Lactic Acidon 09-22-2022 Lactate [Moles/Vol] 1.8 mmol/L Normal 0.5-2.2 [facility] Comment on above: Performed By: #### L ACTIC #### [facility] [address] [place] [address] Construction Economist: Jesse Curry MD Lipaseon 09-22-2022 Lipase [Catalytic activity/Vol] 39 U/L Normal 13-60 [facility] Comment on above: Performed By: #### L BJ BUCK, CP #### [facility] [address] [place] [address] Construction Economist: Jesse Curry MD UA w/Reflex Cultureon 2021 Bilirubin, SemiQt,Ur Negative Normal NEG [facility] Comment on above: Performed By: #### U MICAO, UAX #### [facility] [address] [place] [address] Dr. [place], [place] [id number] Construction Economist: Jesse Curry MD Blood, Urine Negative Normal NEG [facility] Comment on above: Performed By: #### U MICAO, UAX #### [facility] [address] [place] [address] Dr. [place], [place] [id number] Construction Economist: Jesse Curry MD Clarity (U) Clear Normal CLEAR [facility] Comment on above: Performed By: #### U MICAO, UAX #### [address] [place], [place] [id number] Construction Economist: Jesse Curry MD Color (U) Yellow Normal YEL [facility] Comment on above: Performed By: #### U MICAO, UAX #### [facility] [address] [place] [address] Dr. [place], [place] [id number] Construction Economist: Jesse Curry MD Glucose Ql (U) Negative Normal NEG [facility] Comment on above: Performed By: #### U MICAO, UAX #### [address] [place], [place] [phone] Construction Economist: Jesse Curry MD Ketones Ql (U) Negative Normal NEG [facility] Comment on above: Performed By: #### U MICAO, UAX #### [facility] [address] [place] [address] Dr. [place], [place] [id number] Construction Economist: Jesse Curry MD Leukocyte esterase Test strip Ql (U) Negative Normal NEG [facility] Comment on above: Performed By: #### U MICAO, UAX #### [address] [place], [place] [phone] Construction Economist: Jesse Curry MD Nitrite,Ur Negative Normal NEG [facility] Comment on above: Performed By: #### U MICAO, UAX #### [facility] [address] [place] [address] Dr. [place], [place] [phone] Construction Economist: Jesse Curry MD PH,Ur 8.0 Normal 5.0-9.0 [facility] Comment on above: Performed By: #### U MICAO, UAX #### [facility] [address] [place] [address] Dr. [place], [place] [phone] Construction Economist: Jesse Curry MD Protein Ql (U) Negative Normal NEG [facility] Comment on above: Performed By: #### U MICAO, UAX #### [address] [place], [place] 7600183 Construction Economist: Jesse Curry MD Spec. [place],Ur 1.020 Normal 1.010-1.020 [facility] Comment on above: Performed By: #### U MICAO, UAX #### [facility] [address] [place] [address] Dr. [place], [place] [phone] Construction Economist: Jesse Curry MD Urobilinogen,Ur Normal Normal NORM [facility] Comment on above: Performed By: #### U MICAO, UAX #### [address] [place], [place] [id number] Construction Economist: Jesse Curry MD Urinalysis,Microon 2 Bacteria TRACE Abnormal NONE [facility] Comment on above: Performed By: #### U MICAO, UAX #### [facility] [address] [place] [address] Dr. [place], [place] [id number] Construction Economist: Jesse Curry MD Epithelial cells LM Ql (Urine sed) 0 TO 2 Normal 0-25 [facility] Comment on above: Performed By: #### U MICAO, UAX #### [facility] [address] [place] [address] [place] [address] Construction Economist: Jesse Curry MD Urine RBC's None Normal 0-2 [facility] Comment on above: Performed By: #### U MICAO, UAX #### [facility] [address] [place], [place] [phone] Construction Economist: Jesse Curry MD Urine WBC's 0 TO 2 Normal 0-5 [facility] Comment on above: Performed By: #### U DARIO, UAX #### [facility] [address] [place] [address] Construction Economist: Jesse Curry MD CBC AUTO DIFFon 02-20-2022 BASO # 0.1 103/ul Normal 0.0-0.1 [facility] Comment on above: Performed By: #### C BC #### [facility] [address] [place] [address] Dr. Claire Mayes Basophils/100 WBC (Bld) 0.8 % Normal 0.2-2.0 [facility] Comment on above: Performed By: #### C BC #### [facility] [address] [place] [address] Dr. Claire Mayes EO # 0.2 103/ul Normal 0.0-0.7 [facility] Comment on above: Performed By: #### C BC #### [facility] [address] [place] [address] Dr. Claire Mayes Eosinophils/100 WBC (Bld) 0.9 % Normal 0.9-7.0 [facility] Comment on above: Performed By: #### C BC #### [facility] [address] [place] [address] Dr. Claire Mayes Erythrocyte distribution width (RBC) [Ratio] 15.0 % Normal 11.0-15.0 [facility] Comment on above: Performed By: #### C BC #### [facility] [address] [place] [address] Dr. Claire Mayes Hematocrit (Bld) [Volume fraction] 31.3 % Critically low 36.0-48.0 [facility] Comment on above: Performed By: #### C BC #### [facility] [address] [place] [address] Dr. Claire Mayes Hemoglobin (Bld) [Mass/Vol] 10.3 g/dL Critically low 12.0-16.0 [facility] Comment on above: Performed By: #### C BC #### [facility] [address] [place] [address] Dr. Claire Mayes IG # 0.21 10e3/ul Critically high 0.00-0.03 [facility] Comment on above: Performed By: #### C BC #### [facility] [address] [address] [address] Claire Mayes IG % 1.3 % Critically high 0.0-0.5 [facility] Comment on above: Performed By: #### C BC #### [facility] [address] [place] [address] Dr. Claire Mayes LYMPH # 2.1 103/ul Normal 1.2-3.8 [facility] Comment on above: Performed By: #### C BC #### [facility] [address] [place] [address] Dr. Claire Mayes Lymphocytes/100 WBC (Bld) 12.6 % Critically low 20.5-60.0 [facility] Comment on above: Performed By: #### C BC #### [facility] [address] [place] [address] Dr. Claire Mayes MANUAL DIFF REQ NO Normal [facility] Comment on above: Performed By: #### C BC #### [facility] [address] [place] [address] Dr. Claire Mayes MCH (RBC) [Entitic mass] 29.8 pg Normal 26.7-34.0 [facility] Comment on above: Performed By: #### C BC #### [facility] [address] [place] [address] Dr. Claire Mayes MCHC (RBC) [Mass/Vol] 32.9 g/dL Normal 29.9-35.2 [facility] Comment on above: Performed By: #### C BC #### [facility] [address] [place] [address] Dr. Claire Mayes MCV (RBC) [Entitic vol] 90.5 fL Normal 81.0-99.0 [facility] Comment on above: Performed By: #### C BC #### [facility] [address] [place] [address] Dr. Claire Mayes MONO # 0.8 103/ul Normal 0.3-0.8 [facility] Comment on above: Performed By: #### C BC #### [facility] [address] [place] [address] Dr. Claire Mayes Monocytes/100 WBC (Bld) 5.1 % Normal 1.7-12.0 [facility] Comment on above: Performed By: #### C BC #### [facility] [address] [place] [address] Dr. Claire Mayes NEUT # 13.2 103/ul Critically high 1.4-6.5 [facility] Comment on above: Performed By: #### C BC #### [facility] [address] [place] [address] Dr. Claire Mayes Neutrophils/100 WBC (Bld) 79.3 % Critically high 43.0-75.0 [facility] Comment on above: Performed By: #### C BC #### [facility] [address] [place] [address] Dr. Claire Mayes Platelet mean volume (Bld) [Entitic vol] 10.4 fL Normal 9.5-13.5 [facility] Comment on above: Performed By: #### C BC #### [facility] [address] [place] [address] Dr. Claire Mayes PLT 233 103/ul Normal 150-450 [facility] Comment on above: Performed By: #### C BC #### [facility] [address] [place] [address] Dr. Claire Mayes RBC 3.46 106/ul Critically low 4.20-5.40 [facility] Comment on above: Performed By: #### C BC #### [facility] [address] [place] [address] Dr. Claire Mayes WBC 16.6 103/ul Critically high 4.0-11.[address] [facility] Comment on above: Performed By: #### C BC #### [facility] [address] [address] [address] Claire Mayes CBC AUTO DIFFon 02-18-2022 BASO # 0.1 103/ul Normal 0.0-0.1 [facility] Comment on above: Performed By: #### C BC #### [facility] [address] [address] [address] Claire Mayes Basophils/100 WBC (Bld) 0.7 % Normal 0.2-2.0 [facility] Comment on above: Performed By: #### C BC #### [facility] [address] [place] [address] Dr. Claire Mayes EO # 0.2 103/ul Normal 0.0-0.7 [facility] Comment on above: Performed By: #### C BC #### [facility] [address] [place] [address] Dr. Claire Mayes Eosinophils/100 WBC (Bld) 1.2 % Normal 0.9-7.0 [facility] Comment on above: Performed By: #### C BC #### [facility] [address] [place] [address] Dr. Claire Mayes Erythrocyte distribution width (RBC) [Ratio] 15.0 % Normal 11.0-15.0 [facility] Comment on above: Performed By: #### C BC #### [facility] [address] [place] [address] Dr. Claire Mayes Hematocrit (Bld) [Volume fraction] 35.1 % Critically low 36.0-48.0 [facility] Comment on above: Performed By: #### C BC #### [facility] [address] [place] [address] Dr. Claire Mayes Hemoglobin (Bld) [Mass/Vol] 11.8 g/dL Critically low 12.0-16.0 [facility] Comment on above: Performed By: #### C BC #### [facility] [address] [place] [address] Dr. Claire Mayes IG # 0.30 10e3/ul Critically high 0.00-0.03 [facility] Comment on above: Performed By: #### C BC #### [facility] [address] [place] [address] Dr. Claire Mayes IG % 1.9 % Critically high 0.0-0.5 [facility] Comment on above: Performed By: #### C BC #### [facility] [address] [place] [address] Dr. Claire Mayes LYMPH # 2.9 103/ul Normal 1.2-3.8 [facility] Comment on above: Performed By: #### C BC #### [facility] [address] [place] [address] Dr. Claire Mayes Lymphocytes/100 WBC (Bld) 18.5 % Critically low 20.5-60.0 [facility] Comment on above: Performed By: #### C BC #### [facility] [address] [place] [address] Dr. Claire Mayes MANUAL DIFF REQ NO Normal [facility] Comment on above: Performed By: #### C BC #### [facility] [address] [place] [address] Dr. Claire Mayes MCH (RBC) [Entitic mass] 30.2 pg Normal 26.7-34.0 [facility] Comment on above: Performed By: #### C BC #### [facility] [address] [place] [address] Dr. Claire Mayes MCHC (RBC) [Mass/Vol] 33.6 g/dL Normal 29.9-35.2 [facility] Comment on above: Performed By: #### C BC #### [facility] [address] [place] [address] Dr. Claire Mayes MCV (RBC) [Entitic vol] 89.8 fL Normal 81.0-99.0 [facility] Comment on above: Performed By: #### C BC #### [facility] [address] [place] [address] Dr. Claire Mayes MONO # 0.7 103/ul Normal 0.3-0.8 [facility] Comment on above: Performed By: #### C BC #### [facility] [address] [address] [address] Claire Mayes Monocytes/100 WBC (Bld) 4.7 % Normal 1.7-12.0 [facility] Comment on above: Performed By: #### C BC #### [facility] [address] [address] [address] Claire Mayes NEUT # 11.3 103/ul Critically high 1.4-6.[address] [facility] Comment on above: Performed By: #### C BC #### [facility] [address] [address] [address] Claire Mayes Neutrophils/100 WBC (Bld) 73.0 % Normal 43.0-75.0 [facility] Comment on above: Performed By: #### C BC #### [facility] [address] [place] [address] Dr. Claire Mayes Platelet mean volume (Bld) [Entitic vol] 10.8 fL Normal 9.5-13.5 [facility] Comment on above: Performed By: #### C BC #### [facility] [address] [address] [address] Claire Mayes PLT 233 103/ul Normal 150-450 [facility] Comment on above: Performed By: #### C BC #### [facility] [address] [place] [address] Dr. Claire Mayes RBC 3.91 106/ul Critically low 4.20-5.40 [facility] Comment on above: Performed By: #### C BC #### [facility] [address] [address] [address] Claire Mayes WBC 15.5 103/ul Critically high 4.0-11.[address] [facility] Comment on above: Performed By: #### C BC #### [facility] [address] [address] [address] Claire Mayes Covid-19 PCR ([facility])on SARS-CoV-2 (COVID-19) RNA FERDINAND+probe Ql (Unsp spec) Not detected Normal NOT DETECTED [facility] Comment on above: Result Comment: When [...] for this test is supported by the [place] of [employer] and Human Service's declaration that [...] used). Performed By: #### C VDTBH #### [facility] [address] [place] [address] Dr. Claire Mayes DRUG SCREEN RAPID (URINE)on 02-18-2022 AMP Negative Normal NEGATIVE [facility] Comment on above: Performed By: #### D RUGRPD #### [facility] [address] [place] [address] Dr. Claire Mayes BAR Negative Normal NEGATIVE [facility] Comment on above: Performed By: #### D RUGRPD #### [facility] [address] [place] [address] Dr. Claire Mayes BUP Negative Normal NEGATIVE [facility] Comment on above: Performed By: #### D RUGRPD #### [facility] [address] [place] [address] Dr. Claire Mayes BZO Negative Normal NEGATIVE [facility] Comment on above: Performed By: #### D RUGRPD #### [facility] [address] [place] [address] Dr. Claire Mayes KIT Negative Normal NEGATIVE [facility] Comment on above: Performed By: #### D RUGRPD #### [facility] [address] [place] [address] Dr. Claire Mayes CUT-OFFS SEE BELOW Normal [facility] Comment on above: Result Comment: AMP [...] ng/mL Performed By: #### D RUGRPD #### [facility] [address] [place] [address] Dr. Claire Mayes DRUG CUT HEADER DRUG CLASS TEST SYST EM CUT-OFF CONCENTRATIONS ARE FOLLOWS: Normal [facility] Comment on above: Performed By: #### D RUGRPD #### [facility] [address] [place] [address] Dr. Claire Mayes mAMP Negative Normal NEGATIVE [facility] Comment on above: Performed By: #### D RUGRPD #### [facility] [address] [place] [address] Dr. Claire Mayes MTD Negative Normal NEGATIVE [facility] Comment on above: Performed By: #### D RUGRPD #### [facility] [address] [place] [address] Dr. Claire Mayes OPI Negative Normal NEGATIVE [facility] Comment on above: Performed By: #### D RUGRPD #### [facility] [address] [place] [address] Dr. Claire Mayes OXY Negative Normal NEGATIVE [facility] Comment on above: Performed By: #### D RUGRPD #### [facility] [address] [place] [address] Dr. Claire Mayes PCP Negative Normal NEGATIVE [facility] Comment on above: Performed By: #### D RUGRPD #### [facility] [address] [address] [address] Claire Mayes PPX Negative Normal NEGATIVE [facility] Comment on above: Performed By: #### D RUGRPD #### [facility] [address] [address] [address] Claire Mayes TCA Negative Normal NEGATIVE [facility] Comment on above: Performed By: #### D RUGRPD #### [facility] [address] [place] [address] Dr. Claire Mayes THC Negative Normal NEGATIVE [facility] Comment on above: Performed By: #### D RUGRPD #### [facility] [address] [place] [address] Dr. Claire Mayes TYPE AND SCREENon 02-18-2022 TYPE AND SCREEN Negative Normal [facility] Comment on above: Performed By: #### T NS #### [facility] [address] [place] [address] Dr. Claire Mayes US PREG BIOPHY W [...] by: JESSE THOMAS Date: 2022-02-17 14:27 Normal [facility] US PREG BIOPHY W NON STRESSo [...] by: BLU FELIPE Date: 2022-02-10 16:40 Normal [facility] GROUP B STREP CULTUREon 01-14 S. agalactiae Ag Ql (Unsp spec) Culture Observations: Beta Strep called to Belgica Lange at office 02/04/22 @[address] [place] [address] Isolate 1 Streptococcus agalactiae Heavy growth of ORGANISM 1 Streptococcus agalactiae ANTIBIOTIC M.I.C RX STATUS Benzylpenicillin <=0.06 S F Ampicillin <=0.25 S F Cefotaxime <=0.12 S F Ceftriaxone <=0.12 S F Levofloxacin 0.5 S F Erythromycin 2 R F Clindamycin <=0.25 S F Linezolid <=2 S F Vancomycin 0.5 S F Tetracycline >=16 R F Normal [facility] Comment on above: Performed By: #### G BSCX #### [facility] [address] [place] [address] Dr. 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 Verbal consent obtained for telemedicine visit. 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 Hx: LMP: 05/29/21 Menstrual cycles: Have been fairly regular for the past 3 months; 30-35 days Pap smear: 2018, up to date Mammogram: None PMH/Surg Hx/Social Hx: See below Hx of Clotting disorders: Yes- Protein S deficiency Currently on Lovenox 40 mg daily Was on Lovenox 60 mg daily prior to Needs to be on therapeutic dosing when Genetic Screening Hx: [employer] foresight screen negative Partner History: Franklin Ashley 04/09/1990 SA in past year: 2.8 cc 125 mil/mL 69% motility IIB=049 million (recent IUI sample) Morph from original SA was 2.8% Active Problems Problems 16 weeks gest (more content not included)... Normal [employer] CBC AND DIFFERENTIALon 08-06 % AUTOMATED IMMATURE GRAN 0.3 % Normal 0.0 - 0.9 [facility] Comment on above: Result Comment: Graciela ture Granulocyte Count (IG) includes promyelocytes, myelocytes and metamyelocytes but does not include bands. Percent differential counts (%) should be interpreted in the context of the absolute cell counts (cells/L). Performed By: #### C BCDF #### [address] [place] [address] Basophils (Bld) [#/Vol] 0.09 10*3/uL Normal 0.00 - 0.10 [facility] Comment on above: Performed By: #### C BCDF #### [address] [place] [address] Basophils/100 WBC (Bld) 0.9 % Normal 0.0 - 2.0 [facility] Comment on above: Performed By: #### C BCDF #### [address] [place] [address] Eosinophils (Bld) [#/Vol] 0.23 10*3/uL Normal 0.00 - 0.70 [facility] Comment on above: Performed By: #### C BCDF #### [address] [place] [address] Eosinophils/100 WBC (Bld) 2.4 % Normal 0.0 - 6.0 [facility] Comment on above: Performed By: #### C BCDF #### [address] [place] [address] Erythrocyte distribution width (RBC) [Ratio] 14.3 % Normal 11.5 - 14.5 [facility] Comment on above: Performed By: #### C BCDF #### [address] [place] [address] Hematocrit (Bld) [Volume fraction] 40.4 % Normal 36.0 - 46.0 [facility] Comment on above: Performed By: #### C BCDF #### [address] [place] [address] Hemoglobin (Bld) [Mass/Vol] 12.9 g/dL Normal 12.0 - 16.0 [facility] Comment on above: Performed By: #### C BCDF #### [address] [place] [address] Lymphocytes (Bld) [#/Vol] 2.44 10*3/uL Normal 1.20 - 4.80 [facility] Comment on above: Performed By: #### C BCDF #### [address] [place] [address] Lymphocytes/100 WBC (Bld) 25.7 % Normal 13.0 - 44.0 [facility] Comment on above: Performed By: #### C BCDF #### [address] [place] [address] MCHC (RBC) [Mass/Vol] 31.9 g/dL Low 32.0 - 36.0 [facility] Comment on above: Performed By: #### C BCDF #### [address] [place] [address] MCV (RBC) [Entitic vol] 88 fL Normal 80 - 100 [facility] Comment on above: Performed By: #### C BCDF #### [address] [place] [address] Monocytes (Bld) [#/Vol] 0.55 10*3/uL Normal 0.10 - 1.00 [facility] Comment on above: Performed By: #### C BCDF #### [address] [place] [address] Monocytes/100 WBC (Bld) 5.8 % Normal 2.0 - 10.0 [facility] Comment on above: Performed By: #### C BCDF #### [address] [place] [address] Neutrophils (Bld) [#/Vol] 6.15 10*3/uL Normal 1.20 - 7.70 [facility] Comment on above: Performed By: #### C BCDF #### [address] [place] [address] Neutrophils/100 WBC (Bld) 64.9 % Normal 40.0 - 80.0 [facility] Comment on above: Performed By: #### C BCDF #### [address] [place] [address] Platelets (Bld) [#/Vol] 410 10*3/uL Normal 150 - 450 [facility] Comment on above: Performed By: #### C BCDF #### [address] [place] [address] RBC (Bld) [#/Vol] 4.58 x10E12/L Normal 4.00 - 5.20 [facility] Comment on above: Performed By: #### C BCDF #### [address] [place] [address] WBC (Bld) [#/Vol] 9.5 10*3/uL Normal 4.4 - 11.3 [facility] Comment on above: Performed By: #### C BCDF #### [address] [place] [address] P[employer]PER[employer] - Visiton 08-06-2020 P[employer]PER[employer] - Visit Chief Complaint The patient is [...] with LMWH and 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 Reports her asthma is stable. 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 She has Hematology follow-up today following our [...] WBC (Bld) 0.5 % 0.0 - 2.0 IO-KDQOJ-Dxfyb[address] Work Phone: Eosinophils (Bld) [#/Vol] 0.24 {x10E9/L} See Below BB-ETGFF-Bfqgc[address] Work Phone: Comment on above: Reference Range: 0.0 0 - 0.70 Eosinophils/100 WBC (Bld) 1.1 % 0.0 - 6.0 LZ-TIJBE-Klikr[address] Work Phone: Erythrocyte distribution width (RBC) [Ratio] 15.0 % above high threshold See Below YG-PUJHM-Orvbp[address] Work Phone: Comment on above: Reference Range: 11. 5 - 14.5 Hematocrit (Bld) [Volume fraction] 30.0 % below low threshold See Below HG-AIMAQ-Uamwh[address] Work Phone: Comment on above: Reference Range: 36. 0 - 46.0 Hemoglobin (Bld) [Mass/Vol] 9.8 g/dL below low threshold See Below TX-GRAWV-Fnjkd[address] Work Phone: Comment on above: Reference Range: 12. 0 - 16.0 Lymphocytes (Bld) [#/Vol] 2.25 {x10E9/L} See Below EQ-QVFXC-Koeoo wn 2nd Fl Work Phone: Comment on above: Reference Range: 1.2 0 - 4.80 Lymphocytes/100 WBC (Bld) 10.4 % See Below ZU-PKJPK-Jxbys wn 2nd Fl Work Phone: Comment on above: Reference Range: 13. 0 - 44.0 MCHC (RBC) [Mass/Vol] 32.7 g/dL See Below DN-TMSWX-Znqkb wn 2nd Fl Work Phone: Comment on above: Reference Range: 32. 0 - 36.0 MCV (RBC) [Entitic vol] 91 fL 80 - 100 JV-QPWEE-Fpick wn 2nd Fl Work Phone: Monocytes (Bld) [#/Vol] 0.84 {x10E9/L} See Below XR-ZDWKE-Dpgma wn 2nd Fl Work Phone: Comment on above: Reference Range: 0.1 0 - 1.00 Monocytes/100 WBC (Bld) 3.9 % 2.0 - 10.0 FG-EKUOH-Rqzdn wn 2nd Fl Work Phone: Neutrophils/100 WBC (Bld) 82.7 % See Below RG-MTTQD-Uzszt wn 2nd Fl Work Phone: Comment on above: Reference Range: 40. 0 - 80.0 Platelets (Bld) [#/Vol] 225 {x10E9/L} 150 - 450 LJ-WKTTG-Yoqld wn 2nd Fl Work Phone: RBC (Bld) [#/Vol] 3.31 {x10E12/L} below low threshold See Below JM-CUGQC-Xbprv wn 2nd Fl Work Phone: Comment on above: Reference Range: 4.0 0 - 5.20 WBC (Bld) [#/Vol] 0.0 {/100_WBC} 0.0-0.0 MG- OBGYN-[facility] 2nd Fl Work Phone: WBC (Bld) [#/Vol] 21.6 {x10E9/L} above high threshold 4.4 - 11.3 AA-CAEKU-Gxfdk[address] Work Phone: Complete Blood Count + Differential 0.11 {x10E9/L} above high threshold See Below LU-EWBNW-Irmef[address] Work Phone: Comment on above: Reference Range: 0.0 0 - 0.10 Complete Blood Count + Differential 1.4 % above high threshold 0.0 - 0.9 EP-SXZWC-Weogl[address] Work Phone: Comment on above: Immature Granulocyte Count (IG) includes promyelocytes, myelocytes and metamyelocytes but does not include bands. Percent differential counts (%) should be interpreted in the context of the absolute cell counts (cells/L). Complete Blood Count + Differential 17.85 {x10E9/L} above high threshold See Below AP-PTLNK-Lpwee[address] Work Phone: Comment on above: Reference Range: 1.2 0 - 7.70 Hematologyon 06-26-2020 Hematocrit (Bld) [Volume fraction] 30.5 % below low threshold See Below NZ-TPYTF-Ifhjc[address] Work Phone: Comment on above: Reference Range: 36. 0 - 46.0 Hemoglobin (Bld) [Mass/Vol] 10.7 g/dL below low threshold See Below XZ-VLEET-Jywal[address] Work Phone: Comment on above: Reference Range: 12. 0 - 16.0 MCV (RBC) [Entitic vol] 84 fL 80 - 100 OK-GNULZ-Qojhv[address] Work Phone: Platelets (Bld) [#/Vol] 258 {x10E9/L} 150 - 450 KG-RHZZC-Rgvep[address] Work Phone: RBC (Bld) [#/Vol] 3.62 {x10E12/L} below low threshold See Below MO-BSXEQ-Kgbym wn 2nd Fl Work Phone: Comment on above: Reference Range: 4.0 0 - 5.20 WBC (Bld) [#/Vol] 0.0 {/100_WBC} 0.0-0.0 MG- OBGYN-[facility] 2nd Fl Work Phone: WBC (Bld) [#/Vol] 35.7 {x10E9/L} above high threshold 4.4 - 11.3 JN-KWEGF-Kxamt wn 2nd Fl Work Phone: Otheron 06-26-2020 Erythrocyte distribution width (RBC) [Ratio] 14.6 % above high threshold See Below QV-HBHMU-Nlqic wn 2nd Fl Work Phone: Comment on above: Reference Range: 11. 5 - 14.5 MCHC (RBC) [Mass/Vol] 35.1 g/dL See Below DL-AGKCV-Qnmoi 2nd Fl Work Phone: Comment on above: [...] 3.5 cm, located 1.0 cm from themargin. Tool Analyst sections are submitted in 5 cassettes.AXQ/LMPSummary of Cassettes:Specimen Label SiteA 1 umbilical cord sections 2 membrane rolls 3 placental parenchyma, umbilical cord insertion site 4 placental parenchyma 5 placental parenchyma, lesionaxq/06/26/2020 AN-OJBPO-Tgofy wn 2nd Fl Work Phone: Coronavirus 2019 RNA by PCR, Symptomaticon 06-25-2020 Coronavirus 2019 RNA by PCR, Symptomatic NOT DETECTED See Below HE-XVKNF-Nahvl [address]nd Wi Work Phone: Comment on above: SOURCE: Nasal, [...] this test method. Fact sheet for providers: www.fda.gov/media/125735/downloadFact sheet for patients: www.fda.gov/media/679318/downloadThis test has received FDA Emergency Use Authorization (EUA) and has been verified by [facility] ([facility]). This test is only authorized for the duration of time that circumstances exist to justify the authorization of the emergency use of in vitro diagnostic tests for the detection of SARS-CoV-2 virus and/or diagnosis of COVID-19 infection under section 564(b)(1) of the Act, 21 U.S.C. 360bbb-3(b)(1), unless the authorization is terminated or revoked sooner. [facility] is certified under CLIA-88 as qualified to perform high complexity testing. Testing is performed in the [facility] laboratories located at [address] [place] [address]. Hematologyon 06-25-2020 ABO group Nom (Bld) A [address] Work Phone: Blood group antibody screen Ql Negative [address] Work Phone: Hematocrit (Bld) [Volume fraction] 34.7 % below low threshold See Below [address] Work Phone: Comment on above: Reference Range: 36. 0 - 46.0 Hemoglobin (Bld) [Mass/Vol] 11.6 g/dL below low threshold See Below PJ-JXPRH-Bucrg[address] Work Phone: Comment on above: Reference Range: 12. 0 - 16.0 MCV (RBC) [Entitic vol] 90 fL 80 - 100 AN-LLOZC-Cwipw[address] Work Phone: Platelets (Bld) [#/Vol] 268 {x10E9/L} 150 - 450 ZJ-LAQHJ-Zfjqb[address] Work Phone: RBC (Bld) [#/Vol] 3.85 {x10E12/L} below low threshold See Below XG-TGLMV-Gicio[address] Work Phone: Comment on above: Reference Range: 4.0 0 - 5.20 Rh immune globulin screen (Bld) [Interp] Positive LK-PALTG-Xaylm[address] Work Phone: WBC (Bld) [#/Vol] 0.0 {/100_WBC} 0.0-0.0 [facility] [place] [facility] Work Phone: WBC (Bld) [#/Vol] 15.5 {x10E9/L} above high threshold 4.4 - 11.3 KF-[id number]-Wjgja[address] Work Phone: Otheron 06-25-2020 Erythrocyte distribution width (RBC) [Ratio] 14.4 % See Below VT-GNIWI-Synkv[address] Work Phone: Comment on above: Reference Range: 11. 5 - 14.5 MCHC (RBC) [Mass/Vol] 33.4 g/dL See Below [address] Work Phone: Comment on above: Reference Range: 32. 0 - 36.0 SYPHILIS SCREENING WITH REFL EXon 06-25-2020 T. pallidum IgG+IgM IA Ql (S) NONREACTIVE See Below [address] Work Phone: Comment on above: SOURCE: Reference Ra nge: NONREACTIVENo significant level of Treponema pallidum antibody detected. Repeat testing in 2 to 4 weeks may be considered if early infection or incubating syphilis infection is suspected. Imm/Pathon 06-07-2020 Bacteria identified Aer cx Nom (Genital specimen) PATIENT: KIARA ASHLEY LOCATION: [facility] [place] BILL#: [id number] : 89 AGE: SEX: F ORDERED BY: PARAS GUEVARA: VAGINAL COLLECTED: 06/07/20 09:36ANTIBIOTICS AT [place].: RECEIVED : 06/08/20 07:27SITE: VAGINAL R E S U L T S GROUP B STREP SCREEN PRELIM 06/09/20 08:35 CULTURE IN PROGRESS. KI-GEEGO-YEH [address] [place] Work Phone: Bacteria identified Aer cx Nom (Genital specimen) PATIENT: KIARA ASHLEY LOCATION: [facility] [place] BILL#: [id number] : 89 AGE: SEX: F ORDERED BY: PARAS GUEVARA: VAGINAL COLLECTED: 06/07/20 09:36ANTIBIOTICS AT [place].: RECEIVED : 06/08/20 07:27SITE: VAGINAL R E S U L T S GROUP B STREP SCREEN FINAL 06/10/20 11:54 NEGATIVE FOR GROUP B BETA STREP. XV-KFMPB-Iuxap wn 2nd Fl Work Phone: Otheron 06-07-2020 [...] malformations were identified on a limited survey-[facility] 06/22 The patient is aware of [...] signed by: RILEY TREVIÑO 06/07/20 09:33 Normal AI-WQWGD-IDN [address] [place] Work Phone: Comment on above: ORDER REVISED TO A O B FOLLOW UP OR REPEAT SCAN BY RADIOLOGIST; Original Order Number: [id number] CBC AND DIFFERENTIALon 04-24 % AUTOMATED IMMATURE GRAN 1.9 % High 0.0 - 0.9 [facility] [place] Comment on above: Result Comment: Graciela ture Granulocyte Count (IG) includes promyelocytes, myelocytes and metamyelocytes but does not include bands. Percent differential counts (%) should be interpreted in the context of the absolute cell counts (cells/L). Performed By: #### C BCDF #### [address] [place] [address] Basophils (Bld) [#/Vol] 0.08 10*3/uL Normal 0.00 - 0.10 [facility] [place] Comment on above: Performed By: #### C BCDF #### [address] [place] [address] Basophils/100 WBC (Bld) 0.5 % Normal 0.0 - 2.0 [facility] [place] Comment on above: Performed By: #### C BCDF #### [address] [place] [address] Eosinophils (Bld) [#/Vol] 0.22 10*3/uL Normal 0.00 - 0.70 [facility] [place] Comment on above: Performed By: #### C BCDF #### [address] [place] [address] Eosinophils/100 WBC (Bld) 1.5 % Normal 0.0 - 6.0 [facility] [place] Comment on above: Performed By: #### C BCDF #### [address] [place] [address] Erythrocyte distribution width (RBC) [Ratio] 14.0 % Normal 11.5 - 14.5 [facility] [place] Comment on above: Performed By: #### C BCDF #### [address] [place] [address] Hematocrit (Bld) [Volume fraction] 35.6 % Low 36.0 - 46.0 [facility] [place] Comment on above: Performed By: #### C BCDF #### [address] [place] [address] Hemoglobin (Bld) [Mass/Vol] 11.8 g/dL Low 12.0 - 16.0 [facility] [place] Comment on above: Performed By: #### C BCDF #### [address] [place] [address] Lymphocytes (Bld) [#/Vol] 2.38 10*3/uL Normal 1.20 - 4.80 [facility] [place] Comment on above: Performed By: #### C BCDF #### [address] [place] [address] Lymphocytes/100 WBC (Bld) 16.0 % Normal 13.0 - 44.0 [facility] [place] Comment on above: Performed By: #### C BCDF #### [address] [place] [address] MCHC (RBC) [Mass/Vol] 33.1 g/dL Normal 32.0 - 36.0 [facility] [place] Comment on above: Performed By: #### C BCDF #### [address] [place] [address] MCV (RBC) [Entitic vol] 92 fL Normal 80 - 100 [facility] [place] Comment on above: Performed By: #### C BCDF #### [address] [place] [address] Monocytes (Bld) [#/Vol] 0.74 10*3/uL Normal 0.10 - 1.00 [facility] [place] Comment on above: Performed By: #### C BCDF #### [address] [place] [address] Monocytes/100 WBC (Bld) 5.0 % Normal 2.0 - 10.0 [facility] [place] Comment on above: Performed By: #### C BCDF #### [address] [place] [address] Neutrophils (Bld) [#/Vol] 11.17 10*3/uL High 1.20 - 7.70 [facility] [place] Comment on above: Performed By: #### C BCDF #### [address] [place] [address] Neutrophils/100 WBC (Bld) 75.1 % Normal 40.0 - 80.0 [facility] [place] Comment on above: Performed By: #### C BCDF #### [address] [place] [address] Platelets (Bld) [#/Vol] 285 10*3/uL Normal 150 - 450 [facility] [place] Comment on above: Performed By: #### C BCDF #### [address] [place] [address] RBC (Bld) [#/Vol] 3.89 x10E12/L Low 4.00 - 5.20 [facility] [place] Comment on above: Performed By: #### C BCDF #### [address] [place] [address] WBC (Bld) [#/Vol] 14.9 10*3/uL High 4.4 - 11.3 [facility] [place] Comment on above: Performed By: #### C BCDF #### [address] [place] [address] COMPREHENSIVE PANELon 2019 ALP [Catalytic activity/Vol] 79 U/L Normal 33 - 110 [facility] [place] Comment on above: Performed By: #### C MP #### [address] [place] [address] [address] ALT [Catalytic activity/Vol] 7 U/L Normal 7 - 45 [facility] [place] Comment on above: Result Comment: Melida ents treated with Sulfasalazine may generate falsely decreased results for ALT. Performed By: #### C MP #### [address] [place] [address] [address] AST [Catalytic activity/Vol] 13 U/L Normal 9 - 39 [facility] [place] Comment on above: Performed By: #### C MP #### [address] [place] [address] [place] [address] Bilirubin [Mass/Vol] 0.3 mg/dL Normal 0.0 - 1.2 [facility] [place] Comment on above: Performed By: #### C MP #### [address] [place] [address] [place] [address] Protein [Mass/Vol] 5.9 g/dL Low 6.4 - 8.2 [facility] [place] Comment on above: Performed By: #### C MP #### [address] [place] [address] [place] [address] Anion gap [Moles/Vol] 12 mmol/L Normal 10 - 20 [facility] [place] Comment on above: Performed By: #### C MP #### [address] [place] [address] [place] [address] Chloride [Moles/Vol] 106 mmol/L Normal 98 - 107 [facility] [place] Comment on above: Performed By: #### C MP #### [address] [place] [address] [place] [address] Potassium [Moles/Vol] 3.7 mmol/L Normal 3.5 - 5.3 [facility] [place] Comment on above: Performed By: #### C MP #### [address] [place] [address] [place] [address] Sodium [Moles/Vol] 137 mmol/L Normal 136 - 145 [facility] [place] Comment on above: Performed By: #### C MP #### [address] [place] [address] [place] [address] Calcium [Mass/Vol] 9.2 mg/dL Normal 8.6 - 10.3 [facility] [place] Comment on above: Performed By: #### C MP #### [address] [place] [address] [place] [address] Glucose [Mass/Vol] 95 mg/dL Normal 74 - 99 [facility] [place] Comment on above: Performed By: #### C MP #### [address] [place] [address] [place] [address] Urea nitrogen [Mass/Vol] 7 mg/dL Normal 6 - 23 [facility] [place] Comment on above: Performed By: #### C MP #### [address] [place] [address] [place] [address] Albumin [Mass/Vol] 3.4 g/dL Normal 3.4 - 5.0 [facility] [place] Comment on above: Performed By: #### C MP #### [address] [place] [address] [place] [address] Creatinine [Mass/Vol] 0.70 mg/dL Normal 0.50 - 1.05 [facility] [place] Comment on above: Performed By: #### C MP #### [address] [place] [address] [place] [address] GFR- AM. >60 Normal >60 [facility] [place] Comment on above: Result Comment: CALC ULATIONS OF ESTIMATED GFR ARE PERFORMED USING THE MDRD STUDY EQUATION FOR THE IDMS-TRACEABLE CREATININE METHODS. CLIN CHEM 2007;53:766-72 Performed By: #### C MP #### [address] [place] [address] [place] [address] GFR-NON AM. >60 Normal >60 [facility] [place] Comment on above: Performed By: #### C MP #### [address] [place] [address] [place] [address] HCO3 (Bld) [Moles/Vol] 23 mmol/L Normal 21 - 32 [facility] [place] Comment on above: Performed By: #### C MP #### [address] [place] [address] [place] [address] FERRITINon 04-24-2020 Ferritin [Mass/Vol] 8 ug/L Normal 8 - 150 [facility] [place] Comment on above: Performed By: #### F ERRI #### [address] [place] [address] IRON + TIBCon 04-24-2020 % SATURATION 14 % Low 25 - 45 [facility] [place] Comment on above: Performed By: #### I RONT #### [address] [place] [address] Iron [Mass/Vol] 65 ug/dL Normal 35 - 150 [facility] [place] Comment on above: Performed By: #### I RONT #### [address] [place] [address] TIBC 449 ug/dL High 240 - 445 [facility] [place] Comment on above: Performed By: #### I RONT #### [address] [place] [address] Complete Blood Count + Diffe rentialon 12-25-2019 Basophils/100 WBC (Bld) 1.0 % 0.0 - 2.0 ZD-LGCFE-ADG [address] [place] Work Phone: Eosinophils (Bld) [#/Vol] 0.37 {x10E9/L} See Below MP-QSSVJ-QGX [address] [place] Work Phone: Comment on above: Reference Range: 0.0 0 - 0.70 Eosinophils/100 WBC (Bld) 3.0 % 0.0 - 6.0 TY-XWMQH-BHM [address] [place] Work Phone: Erythrocyte distribution width (RBC) [Ratio] 13.4 % See Below FR-PCZZY-ZWO [address] [place] Work Phone: Comment on above: Reference Range: 11. 5 - 14.5 Hematocrit (Bld) [Volume fraction] 41.8 % See Below EN-CFYBV-OJV [address] [place] Work Phone: Comment on above: Reference Range: 36. 0 - 46.0 Hemoglobin (Bld) [Mass/Vol] 13.6 g/dL See Below TR-HNDYC-VJC [address] [place] Work Phone: Comment on above: Reference Range: 12. 0 - 16.0 Lymphocytes (Bld) [#/Vol] 2.52 {x10E9/L} See Below HT-UDGYT-HHE [address] [place] Work Phone: Comment on above: Reference Range: 1.2 0 - 4.80 Lymphocytes/100 WBC (Bld) 20.2 % See Below LR-GEUJU-HUL [address] [place] Work Phone: Comment on above: Reference Range: 13. 0 - 44.0 MCHC (RBC) [Mass/Vol] 32.5 g/dL See Below YV-VAUTP-WDM [address] [place] Work Phone: Comment on above: Reference Range: 32. 0 - 36.0 MCV (RBC) [Entitic vol] 95 fL 80 - 100 JS-AVDEV-YGI [address] [place] Work Phone: Monocytes (Bld) [#/Vol] 0.58 {x10E9/L} See Below NW-ZVKRE-DOE [address] [place] Work Phone: Comment on above: Reference Range: 0.1 0 - 1.00 Monocytes/100 WBC (Bld) 4.6 % 2.0 - 10.0 NC-MQAHB-EBP [address] [place] Work Phone: Neutrophils/100 WBC (Bld) 70.6 % See Below JS-SCAOC-GMI [address] [place] Work Phone: Comment on above: Reference Range: 40. 0 - 80.0 Platelets (Bld) [#/Vol] 372 {x10E9/L} 150 - 450 OW-USSWW-DYL [address] [place] Work Phone: RBC (Bld) [#/Vol] 4.40 {x10E12/L} See Below MG -OBGYN-MAC [address] [place] Work Phone: Comment on above: Reference Range: 4.0 0 - 5.20 WBC (Bld) [#/Vol] 0.0 {/100_WBC} 0.0-0.0 MG- OBGYN-MAC [address] [place] Work Phone: WBC (Bld) [#/Vol] 12.7 {x10E9/L} above high threshold 4.4 - 11.3 YZ-FFANF-GSB [address] [place] Work Phone: Comment on above: SOURCE: Complete Blood Count + Differential 8.81 {x10E9/L} above high threshold See Below WT-YHVHG-NLD [address] [place] Work Phone: Comment on above: Reference Range: 1.2 0 - 7.70 Complete Blood Count + Differential 0.6 % 0.0 - 0.9 ZI-DBCTC-RVA [address] [place] Work Phone: Comment on above: Percent differential counts (%) should be interpreted in the context of the absolute cell counts (cells/L). Complete Blood Count + Differential 0.13 {x10E9/L} above high threshold See Below KB-OKAHO-BED [address] [place] Work Phone: Comment on above: Reference Range: 0.0 0 - 0.10 Cult, Urineon 12-25-2019 Bacteria identified Cx Nom (U) PATIENT: KIARA ASHLEY LOCATION: C0646 BILL#: [id number] : 89 AGE: SEX: F ORDERED BY: PARAS GUEVARA: URINE COLLECTED: 12/25/19 09:41ANTIBIOTICS AT [place].: RECEIVED : 12/25/19 17:06SITE: Clean Catch/Voided R E S U L T S URINE CULTURE,BACTERIAL FINAL 12/26/19 10:21 NO SIGNIFICANT GROWTH. WZ-YGVCA-QKF [address] [place] Work Phone: Hematologyon 12-25-2019 ABO group Nom (Bld) A UV-SAKRA-UWO [address] [place] Work Phone: Blood group antibody screen Ql Negative KJ-JNLXR-SQW [address] [place] Work Phone: Rh immune globulin screen (Bld) [Interp] Positive XW-IEAKE-FLE [address] [place] Work Phone: Hepatitis B Surface Antigeno n 12-25-2019 Hepatitis B Surface Antigen NONREACTIVE See Below BG-TSLSF-HZF [address] [place] Work Phone: Comment on above: [...] Hepatitis C Antibody Test NON-REACTIVE See Below ZX-HNWWY-LFT [address] [place] Work Phone: Comment on above: SOURCE: Reference Ra nge: NONREACTIVE Patients receiving more than 5 mg/day of biotin may have interference in test results. A sample should be taken no sooner than eight hours after previous dose. Contact the testing laboratory for additional information. Metabolic Panelon 12-25-2019 ALP [Catalytic activity/Vol] 67 U/L 33 - 110 ZF-NHYBZ-BCQ [address] [place] Work Phone: Anion gap [Moles/Vol] 15 mmol/L 10 - 20 CI-ZQSHD-XQC [address] [place] Work Phone: Bilirubin [Mass/Vol] 0.3 mg/dL 0.0 - 1.2 LU-MTCDA-XHV [address] [place] Work Phone: Calcium [Mass/Vol] 9.6 mg/dL 8.6 - 10.6 LP-VOQUK-YQW [address] [place] Work Phone: Chloride [Moles/Vol] 104 mmol/L 98 - 107 PY-XMRZG-SQO [address] [place] Work Phone: CO2 [Moles/Vol] 21 mmol/L 21 - 32 MG-OBGYN- MAC [address] [place] Work Phone: Creatinine [Mass/Vol] 0.69 mg/dL See Below GS-MXNIN-GLC [address] [place] Work Phone: Comment on above: Reference Range: 0.5 0 - 1.05 Glucose [Mass/Vol] 83 mg/dL 74 - 99 FR-SLLSW-DTF [address] [place] Work Phone: Comment on above: SOURCE: Potassium [Moles/Vol] 4.1 mmol/L 3.5 - 5.3 CR-EBQHQ-IIK [address] [place] Work Phone: Protein [Mass/Vol] 6.2 g/dL below low threshold 6.4 - 8.2 RN-MGUNE-ONM [address] [place] Work Phone: Sodium [Moles/Vol] 136 mmol/L 136 - 145 OA-WPOGT-MDP [address] [place] Work Phone: Urea nitrogen [Mass/Vol] 9 mg/dL 6 - 23 YL-ZYRCA-OWS [address] [place] Work Phone: Otheron 12-25-2019 Albumin BCP dye [Mass/Vol] 3.9 g/dL 3.4 - 5.0 BO-OXOAY-KRF [address] [place] Work Phone: ALT With P-5'-P [Catalytic activity/Vol] 8 U/L 7 - 45 XF-YWXQB-BEV [address] [place] Work Phone: Comment on above: Patients treated wit h Sulfasalazine may generate falsely decreased results for ALT. AST With P-5'-P [Catalytic activity/Vol] 11 U/L 9 - 39 NM-UCYKZ-KUE [address] [place] Work Phone: NONE KI-QDZZV-EQY [address] [place] Work Phone: >60 >60 JC-TOQTI-CGR [address] [place] Work Phone: Comment on above: CALCULATIONS OF MARÍA MATED GFR ARE PERFORMED USING THE MDRD STUDY EQUATION FOR THE IDMS-TRACEABLE CREATININE METHODS. CLIN CHEM 2007;53:766-72 SYPHILIS SCREENING WITH REFL EXon 12-25-2019 T. pallidum IgG+IgM IA Ql (S) NONREACTIVE See Below NQ-QGPIW-PZU [address] [place] Work Phone: Comment on above: SOURCE: Reference Ra nge: NONREACTIVENo significant level of Treponema pallidum antibody detected. Repeat testing in 2 to 4 weeks may be considered if early infection or incubating syphilis infection is suspected. CBC AND DIFFERENTIALon 11-21 % AUTOMATED IMMATURE GRAN 0.9 % Normal 0.0 - 0.9 [facility] [place] Comment on above: Result Comment: Perc ent differential counts (%) should be interpreted in the context of the absolute cell counts (cells/L). Performed By: #### C BCDF #### [address] [place] [address] Basophils (Bld) [#/Vol] 0.16 10*3/uL High 0.00 - 0.10 [facility] [place] Comment on above: Performed By: #### C BCDF #### [address] [place] [address] Basophils/100 WBC (Bld) 1.2 % Normal 0.0 - 2.0 [facility] [place] Comment on above: Performed By: #### C BCDF #### [address] [place] [address] Eosinophils (Bld) [#/Vol] 0.80 10*3/uL High 0.00 - 0.70 [facility] [place] Comment on above: Performed By: #### C BCDF #### [address] [place] [address] Eosinophils/100 WBC (Bld) 5.8 % Normal 0.0 - 6.0 [facility] [place] Comment on above: Performed By: #### C BCDF #### [address] [place] [address] Erythrocyte distribution width (RBC) [Ratio] 13.6 % Normal 11.5 - 14.5 [facility] [place] Comment on above: Performed By: #### C BCDF #### [address] [place] [address] Hematocrit (Bld) [Volume fraction] 39.4 % Normal 36.0 - 46.0 [facility] [place] Comment on above: Performed By: #### C BCDF #### [address] [place] [address] Hemoglobin (Bld) [Mass/Vol] 13.0 g/dL Normal 12.0 - 16.0 [facility] [place] Comment on above: Performed By: #### C BCDF #### [address] [place] [address] Lymphocytes (Bld) [#/Vol] 2.24 10*3/uL Normal 1.20 - 4.80 [facility] [place] Comment on above: Performed By: #### C BCDF #### [address] [place] [address] Lymphocytes/100 WBC (Bld) 16.3 % Normal 13.0 - 44.0 [facility] [place] Comment on above: Performed By: #### C BCDF #### [address] [place] [address] MCHC (RBC) [Mass/Vol] 33.0 g/dL Normal 32.0 - 36.0 [facility] [place] Comment on above: Performed By: #### C BCDF #### [address] [place] [address] MCV (RBC) [Entitic vol] 94 fL Normal 80 - 100 [facility] [place] Comment on above: Performed By: #### C BCDF #### [address] [place] [address] Monocytes (Bld) [#/Vol] 0.83 10*3/uL Normal 0.10 - 1.00 [facility] [place] Comment on above: Performed By: #### C BCDF #### [address] [place] [address] Monocytes/100 WBC (Bld) 6.0 % Normal 2.0 - 10.0 [facility] [place] Comment on above: Performed By: #### C BCDF #### [address] [place] [address] Neutrophils (Bld) [#/Vol] 9.60 10*3/uL High 1.20 - 7.70 [facility] [place] Comment on above: Performed By: #### C BCDF #### [address] [place] [address] Neutrophils/100 WBC (Bld) 69.8 % Normal 40.0 - 80.0 [facility] [place] Comment on above: Performed By: #### C BCDF #### [address] [place] [address] Platelets (Bld) [#/Vol] 380 10*3/uL Normal 150 - 450 [facility] [place] Comment on above: Performed By: #### C BCDF #### [address] [place] [address] RBC (Bld) [#/Vol] 4.21 x10E12/L Normal 4.00 - 5.20 [facility] [place] Comment on above: Performed By: #### C BCDF #### [address] [place] [address] WBC (Bld) [#/Vol] 13.8 10*3/uL High 4.4 - 11.3 [facility] [place] Comment on above: Performed By: #### C BCDF #### [address] [place] [address] Complete Blood Count + Diffe martaon 11-14-2019 Basophils (Bld) [#/Vol] 0.05 {x10E9/L} See Below -Reproductiv e Endocrinology- [place] Work Phone: Comment on above: Reference Range: 0.0 0 - 0.10 Basophils/100 WBC (Bld) 0.4 % 0.0 - 2.0 MP-Reproductiv e Endocrinology- [place] Work Phone: Eosinophils (Bld) [#/Vol] 0.89 {x10E9/L} above high threshold See Below MP-Reproductiv e Endocrinology- [place] Work Phone: Comment on above: Reference Range: 0.0 0 - 0.70 Eosinophils/100 WBC (Bld) 7.3 % 0.0 - 6.0 MP-Reproductiv e Endocrinology- [place] Work Phone: Erythrocyte distribution width (RBC) [Ratio] 13.9 % See Below -Reproductiv e Endocrinology- [place] Work Phone: Comment on above: Reference Range: 11. 5 - 14.5 Hematocrit (Bld) [Volume fraction] 39.4 % See Below -Reproductiv e Endocrinology- [place] Work Phone: Comment on above: Reference Range: 36. 0 - 46.0 Hemoglobin (Bld) [Mass/Vol] 12.8 g/dL See Below -Reproductiv e Endocrinology- [place] Work Phone: Comment on above: Reference Range: 12. 0 - 16.0 Lymphocytes (Bld) [#/Vol] 2.13 {x10E9/L} See Below -Reproductiv e Endocrinology- [place] Work Phone: Comment on above: Reference Range: 1.2 0 - 4.80 Lymphocytes/100 WBC (Bld) 17.5 % See Below MP-Reproductiv e Endocrinology- [place] Work Phone: Comment on above: Reference Range: 13. 0 - 44.0 MCHC (RBC) [Mass/Vol] 32.5 g/dL See Below MP-Reproductiv e Endocrinology- [place] Work Phone: Comment on above: Reference Range: 32. 0 - 36.0 MCV (RBC) [Entitic vol] 95 fL 80 - 100 [facility] Work Phone: Monocytes (Bld) [#/Vol] 0.60 {x10E9/L} See Below [facility] Work Phone: Comment on above: Reference Range: 0.1 0 - 1.00 Monocytes/100 WBC (Bld) 4.9 % 2.0 - 10.0 [facility] Work Phone: Neutrophils/100 WBC (Bld) 69.4 % See Below [facility] Work [facility]: Comment on above: Reference Range: 40. 0 - 80.0 Platelets (Bld) [#/Vol] 423 {x10E9/L} 150 - 450 [facility] Work Phone: RBC (Bld) [#/Vol] 4.15 {x10E12/L} See Below MP [facility] Work Phone: Comment on above: Reference Range: 4.0 0 - 5.20 WBC (Bld) [#/Vol] 12.2 {x10E9/L} above high threshold 4.4 - 11.3 [facility] Work Phone: WBC (Bld) [#/Vol] 0.0 {/100_WBC} 0.0-0.0 MP- Reproductiv e Endocrinology- [place] Work Phone: Complete Blood Count + Differential 0.5 % 0.0 - 0.9 MP-Reproductiv e Endocrinology- [place] Work Phone: Comment on above: Percent differential counts (%) should be interpreted in the context of the absolute cell counts (cells/L). Complete Blood Count + Differential 8.42 {x10E9/L} above high threshold See Below MP-Reproductiv e Endocrinology- [place] Work Phone: Comment on above: Reference Range: 1.2 0 - 7.70 Metabolic Panelon 11-14-2019 ALP [Catalytic activity/Vol] 82 U/L 33 - 110 MP-Reproductiv e Endocrinology- [place] Work Phone: Anion gap [Moles/Vol] 19 mmol/L 10 - 20 MP-Reproductiv e Endocrinology- [place] Work Phone: Bilirubin [Mass/Vol] 0.4 mg/dL 0.0 - 1.2 MP-Reproductiv e Endocrinology- [place] Work Phone: Calcium [Mass/Vol] 9.5 mg/dL 8.6 - 10.6 MP-Reproductiv e Endocrinology- [place] Work Phone: Chloride [Moles/Vol] 100 mmol/L 98 - 107 MP-Reproductiv e Endocrinology- [place] Work Phone: CO2 [Moles/Vol] 20 mmol/L below low threshold 21 - 32 MP-Reproductiv e Endocrinology- [place] Work Phone: Creatinine [Mass/Vol] 0.80 mg/dL See Below MP-Reproductiv e Endocrinology- [place] Work Phone: Comment on above: Reference Range: 0.5 0 - 1.05 Glucose [Mass/Vol] 86 mg/dL 74 - 99 [facility]duct[facility]- [place] Work Phone: Potassium [Moles/Vol] 4.3 mmol/L 3.5 - 5.3 [facility]duct[facility]- [place] Work Phone: Protein [Mass/Vol] 5.8 g/dL below low threshold 6.4 - 8.2 [facility]Reproduct[facility]- [place] Work Phone: Sodium [Moles/Vol] 135 mmol/L below low threshold 136 - 145 [facility]Reproduct[facility] e [facility]ocr[facility]- [place] Work Phone: Urea nitrogen [Mass/Vol] 10 mg/dL 6 - 23 MP-Reproductiv e [facility] Work Phone: Otheron 11-14-2019 Albumin BCP dye [Mass/Vol] 3.5 g/dL 3.4 - 5.0 MP-Reproductiv e [facility] Work Phone: ALT With P-5'-P [Catalytic activity/Vol] 17 U/L 7 - 45 MP-Reproductiv e [facility] Work Phone: Comment on above: Patients treated wit h Sulfasalazine may generate falsely decreased results for ALT. AST With P-5'-P [Catalytic activity/Vol] 22 U/L 9 - 39 MP-Reproductiv e [facility] Work Phone: >60 >60 -Reproductiv [facility] Work Phone: Comment on above: CALCULATIONS OF MARÍA MATED GFR ARE PERFORMED USING THE MDRD STUDY EQUATION FOR THE IDMS-TRACEABLE CREATININE METHODS. CLIN CHEM 2007;53:766-72 CBCon 11-09-2019 Erythrocyte distribution width (RBC) [Ratio] 13.7 % See Below UA-FGOOX-Glzxs n 310 [facility] Work Phone: Comment on above: Performed By: #### L H #### [facility] [address] [place] [address] Reference Range: 11. 5 - 14.5 Hematocrit (Bld) [Volume fraction] 41.9 % See Below SY-KPZBK-Rgmca n 310 [facility] Work Phone: Comment on above: Performed By: #### L H #### [facility] [address] [place] [address] Reference Range: 36. 0 - 46.0 Hemoglobin (Bld) [Mass/Vol] 14.0 g/dL See Below AP-OLKYY-Ksugj n 310 [facility] Work Phone: Comment on above: Performed By: #### L H #### [facility] [address] [place] [address] Reference Range: 12. 0 - 16.0 MCHC (RBC) [Mass/Vol] 33.4 g/dL See Below QK-OMASS-Coeay n 310 [facility] Work Phone: Comment on above: Performed By: #### L H #### [facility] [address] [place] [address] Reference Range: 32. 0 - 36.0 MCV (RBC) [Entitic vol] 94 fL 80 - 100 VG-GQSPA-Ivtpu n 310 [facility] Work Phone: Comment on above: Performed By: #### L H #### [facility] [address] [place] [id number] Platelets (Bld) [#/Vol] 411 10*3/uL Normal 150 - 450 [facility] Comment on above: Performed By: #### L H #### [facility] [address] [place] [id number] RBC (Bld) [#/Vol] 4.44 x10E12/L Normal 4.00 - 5.20 [facility] Comment on above: Performed By: #### L H #### [facility] [address] [place] [id number] WBC (Bld) [#/Vol] 12.4 10*3/uL High 4.4 - 11.3 [facility] Comment on above: Performed By: #### L H #### [facility] [address] [place] [id number] COMPREHENSIVE PANELon 2018 Albumin [Mass/Vol] 3.8 g/dL Normal 3.4 - 5.0 [facility] Comment on above: Performed By: #### L H #### [facility] [address] [place] [address] ALP [Catalytic activity/Vol] 51 U/L 33 - 110 FH-UNJKQ-Ldzdv n 310 [facility] Work Phone: Comment on above: Performed By: #### L H #### [facility] [address] [place] [address] ALT [Catalytic activity/Vol] 12 U/L Normal 7 - 45 [facility] Comment on above: Result Comment: Melida ents treated with Sulfasalazine may generate falsely decreased results for ALT. Performed By: #### L H #### [facility] [address] [place] [address] Anion gap [Moles/Vol] 13 mmol/L 10 - 20 SU-KRBZZ-Xoanw n 310 [facility] Work Phone: Comment on above: Performed By: #### L H #### [facility] [address] [place] [id number] AST [Catalytic activity/Vol] 12 U/L Normal 9 - 39 [facility] Comment on above: Performed By: #### L H #### [facility] [address] [place] [id number] Bilirubin [Mass/Vol] 0.4 mg/dL 0.0 - 1.2 CJ-WKPGK-Tiumn n 310 [facility] Work Phone: Comment on above: Performed By: #### L H #### [facility] [address] [place] [id number] Calcium [Mass/Vol] 9.3 mg/dL 8.6 - 10.3 ZK-SDWUB-Uuomn n 310 [facility] Work Phone: Comment on above: Performed By: #### L H #### [facility] [address] [place] [id number] Chloride [Moles/Vol] 102 mmol/L 98 - 107 ZH-WWFFX-Oqoiq n 310 [facility] Work Phone: Comment on above: Performed By: #### L H #### [facility] [address] [place] [id number] Creatinine [Mass/Vol] 0.89 mg/dL See Below ZC-XAPCZ-Brtoi n 310 [facility] Work Phone: Comment on above: Performed By: #### L H #### [facility] [address] [place] [id number] Reference Range: 0.5 0 - 1.05 GFR- AM. >60 Normal >60 [facility] Comment on above: Result Comment: CALC ULATIONS OF ESTIMATED GFR ARE PERFORMED USING THE MDRD STUDY EQUATION FOR THE IDMS-TRACEABLE CREATININE METHODS. CLIN CHEM 2007;53:766-72 Performed By: #### L H #### [facility] [address] [place] [address] GFR-NON AM. >60 Normal >60 [facility] Comment on above: Performed By: #### L H #### [facility] [address] [place] [address] Glucose [Mass/Vol] 74 mg/dL 74 - 99 XN-CYUAW-Qovqi n 310 [facility] Work Phone: Comment on above: Performed By: #### L H #### [facility] [address] [place] [address] HCO3 (Bld) [Moles/Vol] 25 mmol/L Normal 21 - 32 [facility] Comment on above: Performed By: #### L H #### [facility] [address] [place] [address] Potassium [Moles/Vol] 4.1 mmol/L 3.5 - 5.3 AN-RJPMA-Jspbe n 310 [facility] Work Phone: Comment on above: Performed By: #### L H #### [facility] [address] [place] [id number] Protein [Mass/Vol] 6.0 g/dL below low threshold 6.4 - 8.2 KQ-VZERM-Zwkvf n 310 [facility] Work Phone: Comment on above: Performed By: #### L H #### [facility] [address] [place] [id number] Sodium [Moles/Vol] 136 mmol/L 136 - 145 FQ-ELNIN-Askdh n 310 [facility] Work Phone: Comment on above: Performed By: #### L H #### [facility] [address] [place] [address] Urea nitrogen [Mass/Vol] 11 mg/dL 6 - 23 UN-ZBIEI-Gkuru n 310 [facility] Work Phone: Comment on above: Performed By: #### L H #### [facility] [address] [place] [address] HCG, Beta Quantitativeon HCG.beta subunit Qn 7102 {mIU/mL} Abnormal EF-VBISD-Fhgwl n 310 [facility] Work Phone: Comment on [...] HCG measurement is performed using the [employer] Access Immunoassay which detects intact HCG and free beta HCG subunit. This test is not indicated for use as a tumor marker. HCG testing is performed using a different test methodology at [facility] than other [facility]. Direct result comparison should only be made within the same method. REF VALUESNON FEMALE <5MALES <5 HCG,BETA-QUANTITATIVEon - HCG,BETA-QUANTITA TIVE 7102 mIU/mL [facility] Comment on above: Result Comment: Low- level [...] HCG measurement is performed using the [employer] Access Immunoassay which detects intact HCG and free beta HCG subunit. This test is not indicated for use as a tumor marker. HCG testing is performed using a different test methodology at [facility] than other [facility]. Direct result comparison should only be made within the same method. REF VALUES NON FEMALE <5 MALES <5 Performed By: #### L H #### [facility] [address] [place] [address] Hematologyon 11-09-2019 Platelets (Bld) [#/Vol] 411 {x10E9/L} 150 - 450 FQ-LQLPX-Vlsww n 310 [facility] Work Phone: RBC (Bld) [#/Vol] 4.44 {x10E12/L} See Below MG -OBGYN-Risma n 310 [facility] Work Phone: Comment on above: Reference Range: 4.0 0 - 5.20 WBC (Bld) [#/Vol] 12.4 {x10E9/L} above high threshold 4.4 - 11.3 IA-ZMBSJ-Pwfup n 310 [facility] Work Phone: Metabolic Panelon 11-09-2019 CO2 [Moles/Vol] 25 mmol/L 21 - 32 MG-OBGYN- Risma n 310 [facility] Work Phone: Otheron 11-09-2019 Albumin BCP dye [Mass/Vol] 3.8 g/dL 3.4 - 5.0 IF-SYLCM-Konvz n 310 [facility] Work Phone: ALT With P-5'-P [Catalytic activity/Vol] 12 U/L 7 - 45 CQ-QOJGR-Kwjnm n 310 [facility] Work Phone: Comment on above: Patients treated wit h Sulfasalazine may generate falsely decreased results for ALT. AST With P-5'-P [Catalytic activity/Vol] 12 U/L 9 - 39 ZU-MAPRV-Bjxtf n 310 [facility] Work Phone: >60 >60 YZ-NXBYW-Rqsnc n 310 [facility] Work Phone: Comment on [...] performed using a different test methodology at [facility] than other [facility]. Direct result comparison should only be made within the same method. REF VALUESNON FEMALE <5MALES <5 HCG,BETA-QUANTITATIVEon 10-15 HCG,BETA-QUANTITA TIVE 240 mIU/mL [facility] Comment on above: Result Comment: Low- level [...] HCG measurement is performed using the [employer] Access Immunoassay which detects intact HCG and free beta HCG subunit. This test is not indicated for use as a tumor marker. HCG testing is performed using a different test methodology at [facility] than other [facility]. Direct result comparison should only be made within the same method. REF VALUES NON FEMALE <5 MALES <5 Performed By: #### E STRA #### [facility] [address] [place] [address] ESTRADIOLon 10-14-2019 ESTRADIOL 1871 pg/mL Normal [facility] Comment on above: Result Comment: Estr adiol measurement is performed using the [employer] Access Immunoassay. Estradiol testing is performed using a different test methodology at [facility] than other [facility]. Direct result comparison should only be made within the same method. REF VALUES FOLLICULAR PHASE 20-144 MID CYCLE 64-357 LUTEAL PHASE 56-214 POSTMENOPAUSE < 32 PREPUBERTY < 20 MALE 10-18Y < 20 ADULT MALE < 40 Performed By: #### E STRA #### [facility] [address] [place] [address] Estradiol, Serumon 9 E2 [Mass/Vol] 1871 pg/mL MG-OBGYN-Ri sma n 310 IV[facility] Work Phone: Comment on above: Estradiol measuremen t is performed using the [employer] Access Immunoassay. Estradiol testing is performed using a different test methodology at [facility] than other [facility]. Direct result comparison should only be made within the same method.REF VALUESFOLLICULAR PHASE 20-144MID CYCLE 64-357LUTEAL PHASE 56-214POSTMENOPAUSE < 32PREPUBERTY < 20MALE 10-18Y < 20ADULT MALE < 40 PROGESTERONEon 10-14-2019 PROGESTERONE 1.0 ng/mL Normal [facility] Comment on above: Result Comment: Prog esterone is performed using the [employer] Access Immunoassay. Progesterone testing is performed using a different test methodology at [facility] than other [facility]. Direct result comparison should only be made within the same method. REF VALUES MALE <0.2-0.8 FOLLICULAR PHASE <0.2-1.5 LUTEAL PHASE 7.4-15.4 POSTMENOPAUSAL <0.2-0.2 1ST TRIMESTER 12.0-84.0 2ND TRIMESTER 10.2-58.8 3RD TRIMESTER 46.5-160 Performed By: #### E STRA #### [facility] [address] [place] [address] Progesterone, Serumon 2018 Progesterone [Mass/Vol] 1.0 ng/mL OS-ICYBE-Fxzct n 310 IV[facility] Work Phone: Comment on above: Progesterone is perf ormed using the [employer] Access Immunoassay. Progesterone testing is performed using a different test methodology at [facility] than other [facility]. Direct result comparison should only be made within the same method.REF VALUESMALE <0.2-0.8 FOLLICULAR PHASE <0.2-1.5 LUTEAL PHASE 7.4-15.4 POSTMENOPAUSAL <0.2-0.2 1ST TRIMESTER 12.0-84.0 2ND TRIMESTER 10.2-58.8 3RD TRIMESTER 46.5-160 ESTRADIOLon 10-11-2019 ESTRADIOL 284 pg/mL Normal [facility] Comment on above: Result Comment: Estr adiol measurement is performed using the [employer] Access Immunoassay. Estradiol testing is performed using a different test methodology at [facility] than other [facility]. Direct result comparison should only be made within the same method. REF VALUES FOLLICULAR PHASE 20-144 MID CYCLE 64-357 LUTEAL PHASE 56-214 POSTMENOPAUSE < 32 PREPUBERTY < 20 MALE 10-18Y < 20 ADULT MALE < 40 Performed By: #### E STRA #### [facility] [address] [place] [address] Estradiol, Serumon 201 9 E2 [Mass/Vol] 284 pg/mL MG-OBGYN-Ri [facility] n 310 IVF Work Phone: Comment on above: Estradiol measuremen t is performed using the [employer] Access Immunoassay. Estradiol testing is performed using a different test methodology at [facility] than other [facility]. Direct result comparison should only be made within the same method.REF VALUESFOLLICULAR PHASE 20-144MID CYCLE 64-357LUTEAL PHASE 56-214POSTMENOPAUSE < 32PREPUBERTY < 20MALE 10-18Y < 20ADULT MALE < 40 ESTRADIOLon 10-05-2019 ESTRADIOL 129 pg/mL Normal [facility] Comment on above: Result Comment: Estr adiol measurement is performed using the [employer] Access Immunoassay. Estradiol testing is performed using a different test methodology at [facility] than other [facility]. Direct result comparison should only be made within the same method. REF VALUES FOLLICULAR PHASE 20-144 MID CYCLE 64-357 LUTEAL PHASE 56-214 POSTMENOPAUSE < 32 PREPUBERTY < 20 MALE 10-18Y < 20 ADULT MALE < 40 Performed By: #### E STRA #### [facility] [address] [place] [address] Estradiol, Serumon 9 E2 [Mass/Vol] 129 pg/mL MG-OBGYN-Ri [facility] n 310 IVF Work Phone: Comment on above: Estradiol measuremen t is performed using the [employer] Access Immunoassay. Estradiol testing is performed using a different test methodology at [facility] than other [facility]. Direct result comparison should only be made within the same method.REF VALUESFOLLICULAR PHASE 20-144MID CYCLE 64-357LUTEAL PHASE 56-214POSTMENOPAUSE < 32PREPUBERTY < 20MALE 10-18Y < 20ADULT MALE < 40 PROGESTERONEon 10-05-2019 PROGESTERONE 0.2 ng/mL Normal [facility] Comment on above: Result Comment: Prog esterone is performed using the [employer] Access Immunoassay. Progesterone testing is performed using a different test methodology at [facility] than other [facility]. Direct result comparison should only be made within the same method. REF VALUES MALE <0.2-0.8 FOLLICULAR PHASE <0.2-1.5 LUTEAL PHASE 7.4-15.4 POSTMENOPAUSAL <0.2-0.2 1ST TRIMESTER 12.0-84.0 2ND TRIMESTER 10.2-58.8 3RD TRIMESTER 46.5-160 Performed By: #### E STRA #### [facility] [address] [place] [address] Progesterone, Serumon 2018 Progesterone [Mass/Vol] 0.2 ng/mL RZ-YNXJS-Auqbn n 310 IVF Work Phone: Comment on above: Progesterone is perf ormed using the [employer] Access Immunoassay. Progesterone testing is performed using a different test methodology at [facility] than other [facility]. Direct result comparison should only be made within the same method.REF VALUESMALE <0.2-0.8 FOLLICULAR PHASE <0.2-1.5 LUTEAL PHASE 7.4-15.4 POSTMENOPAUSAL <0.2-0.2 1ST TRIMESTER 12.0-84.0 2ND TRIMESTER 10.2-58.8 3RD TRIMESTER 46.5-160 ESTRADIOLon 10-02-2019 ESTRADIOL 357 pg/mL Normal [facility] Comment on above: Result Comment: Estr adiol measurement is performed using the [employer] Access Immunoassay. Estradiol testing is performed using a different test methodology at [facility] than other [facility]. Direct result comparison should only be made within the same method. REF VALUES FOLLICULAR PHASE 20-144 MID CYCLE 64-357 LUTEAL PHASE 56-214 POSTMENOPAUSE < 32 PREPUBERTY < 20 MALE 10-18Y < 20 ADULT MALE < 40 Performed By: #### E STRA #### [facility] [address] [place] [address] Estradiol, Serumon 9 E2 [Mass/Vol] 357 pg/mL MG-OBGYN-Cr ock er 206A IVF Work Phone: Comment on above: Estradiol measuremen t is performed using the [employer] Access Immunoassay. Estradiol testing is performed using a different test methodology at [facility] than other [facility]. Direct result comparison should only be made within the same method.REF VALUESFOLLICULAR PHASE 20-144MID CYCLE 64-357LUTEAL PHASE 56-214POSTMENOPAUSE < 32PREPUBERTY < 20MALE 10-18Y < 20ADULT MALE < 40 LUTEINIZING HORMONEon 2018 LUTEINIZING HORMONE 14.7 IU/L Normal [facility] Comment on above: Result Comment: Lute inizing Hormone [LH] is performed using the [employer] Access Immunoassay. LH testing is performed using a different test methodology at [facility] than other [facility]. Direct result comparison should only be made within the same method. REF VALUES FOLLICULAR PHASE 1.5-10.0 MID-CYCLE 13.0-72.0 LUTEAL PHASE 0.5-13.0 MENOPAUSE 15.0-65.0 PREPUBERTY 0- 3.0 CHILDREN 0- 6.0 ADULT MALE 1.0- 9.0 Performed By: #### E STRA #### [facility] [address] [place] [address] Luteinizing Hormone, Serumon 10-02-2019 Lutropin Qn 14.7 {IU/L} CN-VXLNX-Rip ck er 206A IVF Work Phone: Comment on above: Luteinizing Hormone [LH] is performed using the [employer] Access Immunoassay. LH testing is performed using a different test methodology at [facility] than other [facility]. Direct result comparison should only be made within the same method.REF VALUESFOLLICULAR PHASE 1.5-10.0MID-CYCLE 13.0-72.0LUTEAL PHASE 0.5-13.0MENOPAUSE 15.0-65.0PREPUBERTY 0- 3.0CHILDREN 0- 6.0ADULT MALE 1.0- 9.0 PROGESTERONEon 10-02-2019 PROGESTERONE 0.1 ng/mL Normal [facility] Comment on above: Result Comment: Prog esterone is performed using the [employer] Access Immunoassay. Progesterone testing is performed using a different test methodology at [facility] than other [facility]. Direct result comparison should only be made within the same method. REF VALUES MALE <0.2-0.8 FOLLICULAR PHASE <0.2-1.5 LUTEAL PHASE 7.4-15.4 POSTMENOPAUSAL <0.2-0.2 1ST TRIMESTER 12.0-84.0 2ND TRIMESTER 10.2-58.8 3RD TRIMESTER 46.5-160 Performed By: #### E STRA #### [facility] [address] [place] [address] Progesterone, Serumon 2018 Progesterone [Mass/Vol] 0.1 ng/mL MZ-VPOWR-Fhore er 206A IVF Work Phone: Comment on above: Progesterone is perf ormed using the [employer] Access Immunoassay. Progesterone testing is performed using a different test methodology at [facility] than other [facility]. Direct result comparison should only be made within the same method.REF VALUESMALE <0.2-0.8 FOLLICULAR PHASE <0.2-1.5 LUTEAL PHASE 7.4-15.4 POSTMENOPAUSAL <0.2-0.2 1ST TRIMESTER 12.0-84.0 2ND TRIMESTER 10.2-58.8 3RD TRIMESTER 46.5-160 HCG,BETA-QUANTITATIVEon 07-17 HCG,BETA-QUANTITA TIVE 10 mIU/mL [facility] Comment on above: Result Comment: Low- level [...] HCG measurement is performed using the [employer] Access Immunoassay which detects intact HCG and free beta HCG subunit. This test is not indicated for use as a tumor marker. HCG testing is performed using a different test methodology at [facility] than other [facility]. Direct result comparison should only be made within the same method. REF VALUES NON FEMALE <5 MALES <5 Performed By: #### L H #### [facility] [address] [place] [address] LUTEINIZING HORMONEon 2018 LUTEINIZING HORMONE 57.0 IU/L Normal [facility] Comment on above: Result Comment: Lute inizing Hormone [LH] is performed using the [employer] Access Immunoassay. LH testing is performed using a different test methodology at [facility] than other [facility]. Direct result comparison should only be made within the same method. REF VALUES FOLLICULAR PHASE 1.5-10.0 MID-CYCLE 13.0-72.0 LUTEAL PHASE 0.5-13.0 MENOPAUSE 15.0-65.0 PREPUBERTY 0- 3.0 CHILDREN 0- 6.0 ADULT MALE 1.0- 9.0 Performed By: #### E STRA #### [facility] [address] [place] [address] PROGESTERONEon 08-13-2019 PROGESTERONE 6.7 ng/mL Normal [facility] Comment on above: Result Comment: Prog esterone is performed using the [employer] Access Immunoassay. Progesterone testing is performed using a different test methodology at [facility] than other [facility]. Direct result comparison should only be made within the same method. REF VALUES MALE <0.2-0.8 FOLLICULAR PHASE <0.2-1.5 LUTEAL PHASE 7.4-15.4 POSTMENOPAUSAL <0.2-0.2 1ST TRIMESTER 12.0-84.0 2ND TRIMESTER 10.2-58.8 3RD TRIMESTER 46.5-160 Performed By: #### L H #### [facility] [address] [place] [address] ESTRADIOLon 08-12-2019 ESTRADIOL 1380 pg/mL Normal [facility] Comment on above: Result Comment: Estr adiol measurement is performed using the [employer] Access Immunoassay. Estradiol testing is performed using a different test methodology at [facility] than [facility]. Direct result comparison should only be made within the same method. REF VALUES FOLLICULAR PHASE 20-144 MID CYCLE 64-357 LUTEAL PHASE 56-214 POSTMENOPAUSE < 32 PREPUBERTY < 20 MALE 10-18Y < 20 ADULT MALE < 40 Performed By: #### L H #### [facility] [address] [place] [address] PROGESTERONEon 08-12-2019 PROGESTERONE 1.7 ng/mL Normal [facility] Comment on above: Result Comment: Prog esterone is performed using the [employer] Access Immunoassay. Progesterone testing is performed using a different test methodology at [facility] than other [facility]. Direct result comparison should only be made within the same method. REF VALUES MALE <0.2-0.8 FOLLICULAR PHASE <0.2-1.5 LUTEAL PHASE 7.4-15.4 POSTMENOPAUSAL <0.2-0.2 1ST TRIMESTER 12.0-84.0 2ND TRIMESTER 10.2-58.8 3RD TRIMESTER 46.5-160 Performed By: #### L H #### [facility] [address] [place] [address] ESTRADIOLon 08-11-2019 ESTRADIOL 874 pg/mL Normal [facility] Comment on above: Result Comment: Estr adiol measurement is performed using the [employer] Access Immunoassay. Estradiol testing is performed using a different test methodology at [facility] than other [facility]. Direct result comparison should only be made within the same method. REF VALUES FOLLICULAR PHASE 20-144 MID CYCLE 64-357 LUTEAL PHASE 56-214 POSTMENOPAUSE < 32 PREPUBERTY < 20 MALE 10-18Y < 20 ADULT MALE < 40 Performed By: #### L H #### [facility] [address] [place] [address] PROGESTERONEon 08-11-2019 PROGESTERONE 1.2 ng/mL Normal [facility] Comment on above: Result Comment: Prog esterone is performed using the [employer] Access Immunoassay. Progesterone testing is performed using a different test methodology at [facility] than other [facility]. Direct result comparison should only be made within the same method. REF VALUES MALE <0.2-0.8 FOLLICULAR PHASE <0.2-1.5 LUTEAL PHASE 7.4-15.4 POSTMENOPAUSAL <0.2-0.2 1ST TRIMESTER 12.0-84.0 2ND TRIMESTER 10.2-58.8 3RD TRIMESTER 46.5-160 Performed By: #### L H #### [facility] [address] [place] [address] ESTRADIOLon 08-09-2019 ESTRADIOL 385 pg/mL Normal [facility] Comment on above: Result Comment: Estr adiol measurement is performed using the [employer] Access Immunoassay. Estradiol testing is performed using a different test methodology at [facility] than [facility]. Direct result comparison should only be made within the same method. REF VALUES FOLLICULAR PHASE 20-144 MID CYCLE 64-357 LUTEAL PHASE 56-214 POSTMENOPAUSE < 32 PREPUBERTY < 20 MALE 10-18Y < 20 ADULT MALE < 40 Performed By: #### L H #### [facility] [address] [place] [address] ESTRADIOLon 08-07-2019 ESTRADIOL 80 pg/mL Normal [facility] Comment on above: Result Comment: Estr adiol measurement is performed using the [employer] Access Immunoassay. Estradiol testing is performed using a different test methodology at [facility] than [facility]. Direct result comparison should only be made within the same method. REF VALUES FOLLICULAR PHASE 20-144 MID CYCLE 64-357 LUTEAL PHASE 56-214 POSTMENOPAUSE < 32 PREPUBERTY < 20 MALE 10-18Y < 20 ADULT MALE < 40 Performed By: #### L H #### [facility] [address] [place] [address] ESTRADIOLon 08-04-2019 ESTRADIOL 58 pg/mL Normal [facility] Comment on above: Result Comment: Estr adiol measurement is performed using the Jose Gaylord Access Immunoassay. Estradiol testing is performed using a different test methodology at [facility] than [facility]. Direct result comparison should only be made within the same method. REF VALUES FOLLICULAR PHASE 20-144 MID CYCLE 64-357 LUTEAL PHASE 56-214 POSTMENOPAUSE < 32 PREPUBERTY < 20 MALE 10-18Y < 20 ADULT MALE < 40 Performed By: #### L H #### [facility] [address] [place] [address] ESTRADIOLon 07-07-2019 ESTRADIOL 110 pg/mL Normal [facility] Comment on above: Result Comment: Estr adiol measurement is performed using the Jose Gaylord Access Immunoassay. Estradiol testing is performed using a different test methodology at [facility] than [facility]. Direct result comparison should only be made within the same method. REF VALUES FOLLICULAR PHASE 20-144 MID CYCLE 64-357 LUTEAL PHASE 56-214 POSTMENOPAUSE < 32 PREPUBERTY < 20 MALE 10-18Y < 20 ADULT MALE < 40 Performed By: #### L H #### [facility] [address] [place] [address] NR MRI SELLA WO/Won 05-31-20 19 NR MRI SELLA WO/W Patient Name: KIARA ASHLEY STUDY: NR MRI SELLA WO/W; 05/31/2019 2:00 pm INDICATION: History of 7 mm microadenoma 2008. COMPARISON: None. ACCESSION NUMBER(S): [id number] ORDERING CLINICIAN: SHAHLA HEALY TECHNIQUE: High resolution [...] Electronically signed by: IRENE BLAKE PHYSICIAN Normal [facility] ESTRADIOLon 05-05-2019 ESTRADIOL 217 pg/mL Normal [facility] Comment on above: Result Comment: Estr adiol measurement is performed using the Jose Ryan Access Immunoassay. Estradiol testing is performed using a different test methodology at [facility] than other [facility]. Direct result comparison should only be made within the same method. REF VALUES FOLLICULAR PHASE 20-144 MID CYCLE 64-357 LUTEAL PHASE 56-214 POSTMENOPAUSE < 32 PREPUBERTY < 20 MALE 10-18Y < 20 ADULT MALE < 40 Performed By: #### E STRA #### [facility] [address] [place] [address] LUTEINIZING HORMONEon 2018 LUTEINIZING HORMONE 4.4 IU/L Normal [facility] Comment on above: Result Comment: Lute inizing Hormone [LH] is performed using the Jose Ryan Access Immunoassay. LH testing is performed using a different test methodology at [facility] than other [facility]. Direct result comparison should only be made within the same method. REF VALUES FOLLICULAR PHASE 1.5-10.0 MID-CYCLE 13.0-72.0 LUTEAL PHASE 0.5-13.0 MENOPAUSE 15.0-65.0 PREPUBERTY 0- 3.0 CHILDREN 0- 6.0 ADULT MALE 1.0- 9.0 Performed By: #### L H #### [facility] [address] [place] [address] ESTRADIOLon 04-11-2019 ESTRADIOL 118 pg/mL Normal [facility] Comment on above: Result Comment: Estr adiol measurement is performed using the Jose Gaylord Access Immunoassay. Estradiol testing is performed using a different test methodology at [facility] than [facility]. Direct result comparison should only be made within the same method. REF VALUES FOLLICULAR PHASE 20-144 MID CYCLE 64-357 LUTEAL PHASE 56-214 POSTMENOPAUSE < 32 PREPUBERTY < 20 MALE 10-18Y < 20 ADULT MALE < 40 Performed By: #### E STRA #### [facility] [address] [place] [address] LUTEINIZING HORMONEon 2018 LUTEINIZING HORMONE 7.7 IU/L Normal [facility] Comment on above: Result Comment: Lute inizing Hormone [LH] is performed using the Jose Gaylord Access Immunoassay. LH testing is performed using a different test methodology at [facility] than [facility]. Direct result comparison should only be made within the same method. REF VALUES FOLLICULAR PHASE 1.5-10.0 MID-CYCLE 13.0-72.0 LUTEAL PHASE 0.5-13.0 MENOPAUSE 15.0-65.0 PREPUBERTY 0- 3.0 CHILDREN 0- 6.0 ADULT MALE 1.0- 9.0 Performed By: #### L H #### [facility] [address] [place] [address] PROGESTERONEon 04-11-2019 PROGESTERONE 0.1 ng/mL Normal [facility] Comment on above: Result Comment: Prog esterone is performed using the Jose LawyerPaid Access Immunoassay. Progesterone testing is performed using a different test methodology at [facility] than other [facility]. Direct result comparison should only be made within the same method. REF VALUES MALE <0.2-0.8 FOLLICULAR PHASE <0.2-1.5 LUTEAL PHASE 7.4-15.4 POSTMENOPAUSAL <0.2-0.2 1ST TRIMESTER 12.0-84.0 2ND TRIMESTER 10.2-58.8 3RD TRIMESTER 46.5-160 Performed By: #### P SVEN #### [facility] [address] [place] [address] ESTRADIOLon 03-17-2019 ESTRADIOL 120 pg/mL Normal [facility] Comment on above: Result Comment: Estr adiol measurement is performed using the Jose LawyerPaid Access Immunoassay. Estradiol testing is performed using a different test methodology at [facility] than [facility]. Direct result comparison should only be made within the same method. REF VALUES FOLLICULAR PHASE 20-144 MID CYCLE 64-357 LUTEAL PHASE 56-214 POSTMENOPAUSE < 32 PREPUBERTY < 20 MALE 10-18Y < 20 ADULT MALE < 40 Performed By: #### E STRA #### [facility] [address] [place] [address] LUTEINIZING HORMONEon 2018 LUTEINIZING HORMONE 6.8 IU/L Normal [facility] Comment on above: Result Comment: Lute inizing Hormone [LH] is performed using the Jose LawyerPaid Access Immunoassay. LH testing is performed using a different test methodology at [facility] than [facility]. Direct result comparison should only be made within the same method. REF VALUES FOLLICULAR PHASE 1.5-10.0 MID-CYCLE 13.0-72.0 LUTEAL PHASE 0.5-13.0 MENOPAUSE 15.0-65.0 PREPUBERTY 0- 3.0 CHILDREN 0- 6.0 ADULT MALE 1.0- 9.0 Performed By: #### L H #### [facility] [address] [place] [address] ESTRADIOLon 02-20-2019 ESTRADIOL 521 pg/mL Normal [facility] Comment on above: Result Comment: Estr adiol measurement is performed using the Jose LawyerPaid Access Immunoassay. Estradiol testing is performed using a different test methodology at [facility] than other [facility]. Direct result comparison should only be made within the same method. REF VALUES FOLLICULAR PHASE 20-144 MID CYCLE 64-357 LUTEAL PHASE 56-214 POSTMENOPAUSE < 32 PREPUBERTY < 20 MALE 10-18Y < 20 ADULT MALE < 40 Performed By: #### E STRA #### [facility] [address] [place] [address] LUTEINIZING HORMONEon 2018 LUTEINIZING HORMONE 3.5 IU/L Normal [facility] Comment on above: Result Comment: Lute inizing Hormone [LH] is performed using the Jose LawyerPaid Access Immunoassay. LH testing is performed using a different test methodology at [facility] than other [facility]. Direct result comparison should only be made within the same method. REF VALUES FOLLICULAR PHASE 1.5-10.0 MID-CYCLE 13.0-72.0 LUTEAL PHASE 0.5-13.0 MENOPAUSE 15.0-65.0 PREPUBERTY 0- 3.0 CHILDREN 0- 6.0 ADULT MALE 1.0- 9.0 Performed By: #### L H #### [facility] [address] [place] [address] Vital Signs Date Time Vital Sign Value Performing Clinician Modesto golden 12-27-2023 10:57-0500 Body mass index (BMI) [Ratio] 34.84 kg/m2 Bere JOHNSON Work Phone: [facility] 12-27-2023 10:57-0500 Body weight 83.64 kg Bere JOHNSON Work Phone: [facility] 12-27-2023 10:57-0500 Diastolic blood pressure 68 mm[Hg] Bere JOHNSON Work Phone: [facility] 12-27-2023 10:57-0500 Systolic blood pressure 110 mm[Hg] Bere JOHNSON Work Phone: [facility] 02-27-2023 11:35-0400 Body mass index (BMI) [Ratio] 29.26 kg/m2 Evelyn Perez Work Phone: [facility] 02-27-2023 11:35-0400 Body temperature 98.8 [degF] Evelyn Calderonrn Work Phone: [facility] [employer] 02-27-2023 11:35-0400 Body weight 72.58 kg Evelyn Calderonrn Work Phone: [facility] [employer] 02-27-2023 11:35-0400 Diastolic blood pressure 66 mm[Hg] Evelyn Calderonrn Work Phone: [facility] [employer] 02-27-2023 11:35-0400 Heart rate 88 /min Evelyn Calderonrn Work Phone: [facility] [employer] 02-27-2023 11:35-0400 Respiratory rate 14 /min Evelyn Calderonrn [facility] Phone: [facility] 02-27-2023 11:35-0400 SaO2% (BldA) [Mass fraction] 100 % Evelyn Calderonrn Work Phone: [facility] [employer] 02-27-2023 11:35-0400 Systolic blood pressure 103 mm[Hg] Evelyn Calderonrn Work Phone: [facility] [employer] 06-19-2021 14:03-0400 Body height 157.48 cm Evelyn Calderonrn Work Phone: JG-LBFLY-Dmadka 310 IVF Work Phone: 06-19-2021 14:03-0400 Body mass index (BMI) [Ratio] 29.26 kg/m2 Evelyn Calderonrn Work Phone: EB-YUFIQ-Hraeyr 310 IVF Work Phone: 06-19-2021 14:03-0400 Body surface area Derived from formula 1.74 m2 Evelyn Calderonrn Work Phone: YO-QFXLS-Qxymmm 310 IVF Work Phone: 06-19-2021 14:03-0400 Body weight 72.58 kg Evelyn Husain Ana Work Phone: KO-VPCXN-Kbhnki 310 IVF Work Phone: 06-19-2021 14:03-0400 1 1 Evelyn M Ana Work Phone: AT-OPLGQ-Ixbvgu 310 IVF Work Phone: Comment on above: GRAV PARA 06-19-2021 14:03-0400 0 1 Evelyn Husain Ana Work Phone: QT-VCBQQ-Svuouu 310 IVF Work Phone: Comment on above: [employer] 06-07-2020 10:41-0400 BMI (Body Mass Index) 34.93 kg/m2 King Lappen HF-NGOSU-BAM [address] [place] Work Phone: 06-07-2020 10:41-0400 Body weight 86.64 kg King Lappen EU-IIBRK-XAI 120 0 [place] Work Phone: 06-07-2020 10:41-0400 BP Diastolic 76 mm[Hg] King Lappen EU-RJIWP-CVG 120 0 [place] Work Phone: 06-07-2020 10:41-0400 BP Systolic 111 mm[Hg] King Lappen ZK-VGWKU-XJT 120 0 [place] Work Phone: 06-07-2020 10:41-0400 BSA (Body Surface Area) 1.87 m2 King Lappen WL-OSHLT-NBS [address] [place] Work Phone: 06-07-2020 10:41-0400 Pulse (Heart Rate) 101 /min King Lappen LT-AZNAD-LBH [address] [place] Work Phone: 06-07-2020 10:41-0400 0 1 King Lappen HM-DNATJ-XTC 120 0 [place] Work Phone: Comment on above: [facility] [employer] 12-25-2019 10:58-0500 BMI (Body Mass Index) 30.18 kg/m2 King Lappen MQ-QDJEM-IHQ [address] [place] Work Phone: 12-25-2019 10:58-0500 Body weight 74.84 kg King Lappen GZ-NCAWW-FIC 120 0 [place] Work Phone: 12-25-2019 10:58-0500 BP Diastolic 68 mm[Hg] King Lappen QS-WHUTA-NTL 120 0 [place] Work Phone: 12-25-2019 10:58-0500 BP Systolic 112 mm[Hg] King Lappen GP-ZDPOS-JSS 120 0 [place] Work Phone: 12-25-2019 10:58-0500 BSA (Body Surface Area) 1.76 m2 King Lappen VA-FAWTK-VFC [address] [place] Work Phone: 11-09-2019 11:28-0500 Body Temperature 98.78 [degF] Kelechi Gage EP-TEFUP-Ezctor 310 IVF Work Phone: 11-09-2019 11:28-0500 BP Diastolic 76 mm[Hg] Kelechi Gage LT-REIWS-Sckfcx 310 IVF Work Phone: 11-09-2019 11:28-0500 BP Systolic 112 mm[Hg] Kelechi Gage WB-VYJUZ-Usnahr 310 IVF Work Phone: 11-09-2019 11:28-0500 Respiratory Rate 96 /min Kelechi Gage AV-RBSNS-Yzehtu 310 IVF Work Phone: Encounters Encounter Date Encounter Type Care Provider Facility Start: 02-07-2024 End: 02-07-2024 ambulatory DEMARIO RIBEIRO Not Available Start: 01-24-2024 End: 01-24-2024 ambulatory BERE STEEL Not Available Start: 01-10-2024 End: 01-11-2024 ambulatory Zoya Buitrago [employer]ISH[employer]ER Facility:Pulmonology & Critical Care Medicine [facility] Start: 12-27-2023 End: 12-27-2023 ambulatory BERE STEEL [...] Start: 09-14-2023 End: 09-14-2023 ambulatory Lc Waite Facility:[facility] Start: 02-27-2023 End: 02-27-2023 Emergency department patient visit EVELYN Husain ANA [facility] Start: 02-27-2023 End: 02-27-2023 Emergency department patient visit Evelyn UngerAna Work Phone: [facility] ED Comment on above: Sprain of left ankle , unspecified ligament, initial encounter (Primary Dx) Start: 01-11-2023 End: 01-11-[address] DEMARIO RIBEIRO . Facility:[facility] Start: 09-22-2022 End: 09-22-2022 Emergency department patient visit JAMI ROMERO [facility] Start: 03-10-[address] EVELYN PEREZ [...] 12-27-2021 End: 12-27-2021 ambulatory Sabina Barnhart Other [facility] Other Start: 12-27-2021 Office outpatient visit 5 minutes Sabina Barnhart [facility] Start: 07-16-2021 Patient encounter procedure Evelyn Perez Work Phone: AI-ZAXEX-Nyfdmp 310 IVF Work Phone: Start: 07-07-2021 AUDIT Evelyn castrohofabrizio Work Phone: YC-WWZII-Ewknzo 310 IVF Work Phone: Start: 07-07-2021 Chart Update Evelyn santana Work Phone: HB-HHPWC-Ynscdq 310 IVF Work Phone: Start: 07-02-2021 Telephone encounter Evelyn gonzales Work Phone: AN-PDAVG-Zvomvz 310 IVF Work Phone: Start: 06-19-2021 Patient encounter procedure Evelyn Perez Work Phone: KB-QIFRL-Nzpewc 310 IVF Work Phone: Start: 06-07-2020 Patient encounter procedure King Lappen QV-ZXULR-BKK [address] [place] Work Phone: Start: 04-24-2020 Patient encounter procedure King Lappen UA-BFFOT-DIL [address] [place] Work Phone: Start: 02-20-2020 Patient encounter procedure King Lappen II-FXAYI-UFV 1200 [place] Work Phone: Start: 02-14-2020 Patient encounter procedure King Lappen UE-LEHSM-VND 1200 [place] Work Phone: Start: 01-23-2020 Patient encounter procedure King Lappen IZ-CCNUB-LPW 1200 [place] Work Phone: Start: 12-25-2019 Patient encounter procedure King Lappen RE-JZJIK-QED 1200 [place] Work Phone: Start: 11-21-2019 Patient encounter procedure King Lappen NC-HADIA-WYZ 1200 [place] Work Phone: Start: 11-16-2019 Patient encounter procedure Kelechi Gage MP-Reproductive Endocrinology-[place] 206 Work Phone: Start: 11-14-2019 Patient encounter procedure Kelechi Gage NQ-GDJID-Prcwep 310 IVF Work Phone: Start: 11-09-2019 Patient encounter procedure Kelechi Gage YZ-QDFFZ-Uckcdu 310 IVF Work Phone: Start: 11-02-2019 Patient encounter procedure Kelechi Gage ZEE-Reproductive Endocrinology-[place] Work Phone: Start: 10-21-2019 Patient encounter procedure Kelechi Gage MP-Reproductive Endocrinology-[place] Work Phone: Start: 10-14-2019 Patient encounter procedure Kelechi Gage KF-GAVJW-Mmfyxs 310 IVF Work Phone: Start: 10-11-2019 Patient encounter procedure Kelechi Gage YT-NHUEU-Fdjmqt 310 IVF Work Phone: Start: 10-05-2019 Patient encounter procedure Kelechi Gage II-OVZJD-Bwpctw 320 Work Phone: Start: 10-02-2019 Patient encounter procedure Kelechi Gage NG-AFOWC-Hfplkxw 206A IVF Work Phone: Start: 08-14-2019 Patient encounter procedure Kelechi Gage FH-GNDJH-Djhqba 310 IVF Work Phone: Start: 08-13-2019 Patient encounter procedure Kelechi Gage GV-DYASE-Afspcx 310 IVF Work Phone: Start: 08-12-2019 Patient encounter procedure Kelechi TONGMB-EXRYS-Bztauf 310 IVF Work Phone: Start: 08-11-2019 Patient encounter procedure Kelechi TONGUA-BIQCP-Nhekvf 310 IVF Work Phone: Start: 08-09-2019 Patient encounter procedure Kelechi Gage NQ-XCTJZ-Lsyiff 310 IVF Work Phone: Start: 08-07-2019 Patient encounter procedure Kelechi TONGVA-DEZFJ-Dzwcnk 310 IVF Work Phone: Start: 08-04-2019 Patient encounter procedure Kelechi Gage EL-SFWUB-Onszhq 310 IVF Work Phone: Start: 07-07-2019 Patient encounter procedure Kelechi TONGRI-KDHJA-Ddiain 310 IVF Work Phone: Start: 06-08-2019 Patient encounter procedure Kelechi TONGNK-WNSZT-Xlcfjv 310 IVF Work Phone: Start: 05-17-2019 Patient encounter procedure Kelechi TONGWR-ZLYHX-Tzuqfo 310 IVF Work Phone: Start: 05-08-2019 Patient encounter procedure Kelechi TONGCN-ESFVT-Ttaokv 310 IVF Work Phone: Start: 05-05-2019 Patient encounter procedure Kelechi Gage GL-NSVJI-Tjzkyr 310 IVF Work Phone: Start: 04-13-2019 Patient encounter procedure Kelechi Gage YK-IJQEJ-Hmomun 310 IVF Work Phone: Start: 04-11-2019 Patient encounter procedure Kelechi Gage JB-OIPXS-Ymrzsq 310 IVF Work Phone: Start: 03-20-2019 Patient encounter procedure Kelechi Gage QS-PFOIB-Qvzdyh 310 IVF Work Phone: Start: 03-17-2019 Patient encounter procedure Kelechi Gage SC-HNKHV-Czfzfy 310 IVF Work Phone: Start: 02-22-2019 Patient encounter procedure Kelechi Gage FQ-GNEJT-Zdvdon 310 IVF Work Phone: Start: 02-20-2019 Patient encounter procedure Kelechi TONGYE-KQLKA-Ykyaaj 310 IVF Work Phone: Start: 02-13-2019 Patient encounter procedure Bruce Mayes Facility:[facility] Start: 02-08-2019 End: 02-12-2019 Patient encounter procedure Bruce Mayes Facility:[facility] Start: 01-19-2019 Patient encounter procedure Kelechi TONGAB-TRNSD-Npamft 310 IVF Work Phone: Patient encounter status Evelyn Perez Work Phone: UB-LZDPV-Fodpcl 310 IVF Work Phone: Procedures Date Procedure [...] procedure 02/07/2024 9:40 AM EDT Routine [facility] [address] [place] [place] [address] Demario Ribeiro DO [address] [place] [address] [facility] Start: 02-07-2024 End: 02-07-2024 Professional / ancillary services management 02/07/2024 9:00 AM EDT Ancillary Procedure [facility] [address] [place], [place] [address] [facility] Start: 01-24-2024 End: 01-24-2024 Patient encounter procedure 01/24/2024 9:30 AM EDT Routine [facility] [address] [facility] [place] [place] [address] Bere Steel PA [address] [place] [address] [facility] Start: 01-10-2024 End: 01-10-2024 Patient encounter procedure 01/10/2024 2:20 PM EST Routine [facility] [address] [place] [address] Demario Ribeiro DO [address] [place] [address] [facility] Start: 01-10-2024 End: 01-10-2024 Professional / ancillary services management 01/10/2024 2:00 PM EST Ancillary Procedure [facility] [address] [place], [place] [id number] [facility] Start: 12-27-2023 End: 12-27-2024 US biophysical profile w non stress test US biophysical profile w non stress test Imaging Routine Hypothyroidism (acquired) (CMS/HCC) H/O blood clots Expected: 12/27/2023 (Approximate), Expires: 12/27/2024 [facility] Work Phone: Comment on above: Expected: 12/27/2023 (Approximate), Expires: 12/27/2024 Start: 12-27-2023 End: 12-27-2024 US for US OB SCAN FOR GROWTH Imaging Routine Hypothyroidism, unspecified type (CMS/HCC) Excessive growth affecting management of in third trimester, single or unspecified fetus Expected: 12/27/2023 (Approximate), Expires: 12/27/2024 [facility] Comment on above: Expected: 12/27/2023 (Approximate), Expires: 12/27/2024 Start: 06-15-2023 Influenza vaccination Flu vacc ine (Season Ended) [facility] Start: 2021 Screening for malignant neoplasm of cervix [facility] Start: 07-25-2021 ULTRASOUND, Provider : OBGYRosenda IVF RDMS ARDEN 1,[facility], Status: Pen, Time: 9:00 AM ULTRASOUND, Provider: OBGYN IVF RDMS ARDEN 1,[facility] OBGYN, Status: Pen, Time: 9:00 AM HA-LBAEK-Pzdyff 310 IVF Work Phone: Start: 07-16-2021 ULTRASOUND, Provider : OBGYN IVF RDMS [id number] 1,MG OBGYN, Status: Pen, Time: 1:00 PM ULTRASOUND, Provider: OBGYN IVF RDMS [id number] 1,[facility] OBGYN, Status: Pen, Time: 1:00 PM LL-SEQEC-Jvslrq 310 IVF Work Phone: Start: 07-07-2021 ULTRASALIN, Provider : Miguel A Barrera, Status: Pen, Time: 10:00 AM ULTRASALIN, Provider: Miguel A Barrera, Status: Pen, Time: 10:00 AM OT-RGUER-Ekjsdx 310 IVF Work Phone: Start: 06-05-2020 MAC Imaging Order MG-FOXPRO DEVELOPER-MAC 1200 [place] Work Phone: Start: 11-16-2019 IO Ultrasound, -Reproductive Endocrinology-[facility] chastity 206 Work Phone: Start: 11-14-2019 Blood count complete auto&auto difrntl wbc Complete Blood Count + Differential JI-EYLSK-Wudzzr 310 IVF Work Phone: Start: 11-14-2019 Comprehensive metabolic 2000 panel PV-DWLNC-Hvmxtr 310 IVF Work Phone: Start: 11-02-2019 Gonadotropin chorion ic quantitative HCG, Beta Quantitative MP-Reproductive Endocrinology-[place] 206 Work Phone: Start: 10-11-2019 IO Ultrasound, limited pelvic, follicle monitoring IJ-OMNYL-Cigmsk 310 IVF Work Phone: Start: 10-05-2019 IO Ultrasound, limited pelvic, follicle monitoring IO-SLDQM-Dxvcou 320 Work Phone: Start: 2012 Screening for malignant neoplasm of cervix Pap smear [facility] Start: 2010 DTaP/Tdap/Td vaccine (1 - Tdap) DTaP/Tdap/Td vaccine (1 - Tdap) [facility] Start: 2009 Hepatitis C screening Hepatitis C sc reen [facility] Start: 2006 HIV screening HIV screen [facility] Start: 2003 Depression Screen Depression Screen [facility] Start: 1992 Varicella vaccine (1 of 2 - 2-dose childhood series) Varicella vaccine (1 of 2 - 2-dose childhood series) [facility] Start: 03-02-1992 COVID-19 Vaccine (#1) COVID-19 Vacci ne (#1) [facility] Assay of estradiol Estradiol, Serum MG-FOXPRO DEVELOPER-Risman 310 IVF Work Phone: Comment on above: Approx [id number] Approx [id number] Approx [id number] Assay of progesterone Progesterone, Serum QQ-UWZHJ-Qbeyfl 310 IVF Work Phone: Comment on above: Approx [id number] Gonadotropin luteinizing hormone Luteinizing Hormone, Serum UH-KFNPI-Wqjgvi 310 IVF Work Phone: Comment on above: Approx [id number] YS-TSREY-Catjaa 320 Work Phone: IO Ultrasound, l imited pelvic, follicle monitoring EQ-ONCBD-Lzuljj 310 IVF Work Phone: Comment on above: Approx [id number] Approx [id number] Approx [id number] NEGATED: Highlighted row has been ruled out! Planned Goals not documented UW-EQPSP-Cfikca 310 IVF Work Phone: Payers Date Payer Category Payer Self-pay 2016 Private Health Insurance [id number] 2016 Private Health Insurance [id number] 1991 Unknown [id number] 2.16.84 0.1.208998.3.579.2.593 1991 Unknown [id number] 2.16.84 0.1.565460.3.579.2.593 1991 Unknown [id number] 2.16.84 0.1.307388.3.579.2.593 1991 Unknown [id number] 2.16.84 0.1.595709.3.579.2.593 1991 Unknown [id number] 2.16.84 0.1.904572.3.579.2.593 1991 Unknown [id number] 2.16.84 0.1.781846.3.579.2.593 1991 Unknown [id number] 2.16.84 0.1.088249.3.579.2.593 1991 Unknown [id number] 2.16.84 0.1.150062.3.579.2.593 1991 Unknown [id number] 2.16.84 0.1.435106.3.579.2.593 1991 Unknown [id number] 2.16.84 0.1.218361.3.579.2.593 1991 Unknown [id number] 2.16.84 0.1.165876.3.579.2.593 1991 Unknown [id number] 2.16.84 0.1.293485.3.579.2.593 1991 Unknown [id number] 2.16.84 0.1.370550.3.579.2.593 1991 Unknown [id number] 2.16.84 0.1.738671.3.579.2.593 1991 Unknown [id number] 2.16.8 40.1.627641.3.579.2.173 1991 Unknown [id number] 2.16.8 40.1.518236.3.579.2.173 1991 Unknown [id number] 2.16. 840.1.461243.3.579.2.196 1991 Unknown [id number] 2.16. 840.1.307536.3.579.2.196 1991 Unknown [id number] 2.16.84 0.1.458170.3.579.2.1259 1991 Unknown [id number] 2.16.84 0.1.865633.3.579.2.1259 1991 Unknown [id number] 2.16.84 0.1.007554.3.579.2.1259 1991 Unknown [id number] 2.16.84 0.1.769468.3.579.2.1259 1991 Unknown [id number] 2.16.84 0.1.386236.3.579.2.1259 1991 Unknown [id number] 2.16.840 .1.680989.3.579.2.1259 1991 Unknown [id number] 2.16.840 .1.512531.3.579.2.1259 1959 Self-pay [id number] 1959 Unknown [id number] 1959 Unknown [id number] Unknown [id number] 2.16.8 40.1.984637.3.579.2.243 Unknown [id number] 2.16.8 40.1.796243.3.579.2.243 Unknown Unknown [id number] 2.16.8 40.1.280458.3.579.2.531 Social History Date Type Detail Facility - - WA-CLUKX-Chdctn 310 IVF Work Phone: Start: 05-11-2023 End: 12-27-2023 Never a smoker Never a smoker [facility] Comment on above: [facility]; Start: 05-11-2023 End: 09-06-2023 Sex Assigned At [facility] Start: 09-22-2022 End: 04-15-2023 Tobacco smoking status NHIS Never smoked tobacco [employer] Phone: Start: 09-22-2022 End: 04-15-2023 Tobacco use and exposure Smokeless tobacco non-user [employer] Phone: Start: 1990 Sex Assigned At Not on file B ON [employer] Phone: Start: 02-17-2023 End: 02-27-2023 Exposure to SARS-CoV-2 (event) Not sure [employer] Start: 12-27-2023 Alcohol intake Current drinke r [...] status health issues are not documented Disease [id number] 310 IVF Work Phone: Mental Status Date Assessment Result Facility NEGATED: Highlighted row Cognitive function [Interpretation] Cognitive status health issues are not documented Disease [id number] 310 IVF Work Phone: History of Present [...] of: ELIZABETH Daly documented in this encounter [facility] Healthcare Evaluation note 12-27-2021 Note Date [...] care instructions given in writting by [facility] Care At Home document. [facility] Other Clinical Note 07-25-2021 Note Date & [...] care. Reviewed plan with Dr. Bruce Aburto, MOLD CLEANER 07/25/2021 09:22 MD note: ob scan LOLLY: [...] Plan reviewed by Dr. Healy. Petra Harjit MOLD CLEANER 07/16/21 1409 TC to pt with quant = 3238 form yesterday; normal rise from 728 on 07/02; Pt doing well; no problems with Lovenox. PT transferred to [facility] to schedule OB US for next week at [facility]. Bere [address] RN 07/07/2021 11:47 Spoke with patient regarding OXGQ=146. Pain=0. Patient states she will begin prometrium BID and Lovenox today. Patient will repeat BHCg on Wednesday when she is at work. Patient aware RN will call her WednesdayJuly 07 with results and plan. Lucy Dunlap R.N.07/03/2021 12:19 Spoke to patient, will start Prometrium 100 mg BID and Lovenox 40 mg BID today (+Protein S deficiency). [place] to f/u with patient tomorrow once HCG level is back. Patient verbalized understanding. Rosibel Sam RN 07/02/2021 13:54 MD note: Reviewed positive test. LMP 7/15, conceived on christy cycle/IC. Plan to get HCG drawn today. Start Prometrium 100mg BID. Start Lovenox 40mg BID SQ. Plan per Dr. Healy. RN to communicate. Petra Lombardi MOLD CLE[employer]ER 07/02/21 1304 Active Problems 16 weeks gestation [...] directed. Peak [employer] (more content not included)... [employer] Chief complaint Narrative - Reported 06-19-2021 [...] pandemic. Verbal consent obtained for telemedicine visit.[employer] [id number] 310 IVF Work Phone: History of Present illness Narrative 06-15-2020 Note Date & Type Note Facility 06-15-2020 History of Present illness Narrative IVF Consult:Patient is a 30 year-old who presents for a FET [id number] Hx:06/2020: IOL @ 38 weeks due to [...] contour on HSG - images reviewed from [facility] 08/2018Uterine Cavity Evaluation:Normal uterine cavity on [...] on therapeutic dosing when Genetic Screening Hx: [employer] foresight screen negativePartner History:Franklin Ashley 04/09/1989A in past year:2.8 cc125 mil/mL69% fglvevfbEGW=031 million(recent IUI sample)Morph from original SA was 2.8% [id number] 310 IVF Work Phone: Evaluation note Note Date & Type Note Facility Evaluation note Diagnosis Sprain of left ankle, unspecified ligament, initial encounter- Primary documented in this encounter [employer] Phone: Evaluation note Note Date & Type Note Facility Evaluation note Diagnosis Third trimester state, incidental First trimester state, incidental Hypothyroidism, unspecified type ([facility]) Hypothyroidism (acquired) ([facility]) Unspecified hypothyroidism H/O blood clots Excessive growth affecting management of in third trimester, single or unspecified fetus documented in this encounter [facility] Discharge instructions Attachments Note Date & Type Note Facility Hospital Discharge instructions The following attachments cannot be sent through Care Everywhere.Ankle Sprain ([place])Ankle Sprain: Rehab Exercises ([place])documented in this encounter [employer] Phone: Summary Purpose Family History No Family [...] section and content) DATE CREATED AUTHOR 02/15/2019 [facility] DATE CREATED AUTHOR AUTHOR'S ORGANIZ ATION 11/12/2019 [facility] DATE CREATED AUTHOR AUTHOR'S ORGANIZ ATION 08/09/2020 [facility] DATE CREATED AUTHOR AUTHOR'S ORGANIZ ATION 07/26/2021 [facility] DATE CREATED AUTHOR AUTHOR'S ORGANIZ ATION 01/21/2023 [facility] DATE CREATED AUTHOR AUTHOR'S ORGANIZ ATION 03/06/2023 [facility] DATE CREATED AUTHOR AUTHOR'S ORGANIZ ATION 07/12/2023 [facility] DATE CREATED AUTHOR AUTHOR'S ORGANIZ ATION 10/04/2023 [facility] DATE CREATED AUTHOR AUTHOR'S ORGANIZ ATION 01/15/2024 [facility] DATE CREATED AUTHOR AUTHOR'S ORGANIZ ATION 02/07/2024 [facility] EPIC REASON FOR VISIT (unrecogniz ed section and content) Reason Comments Ankle Pain Rolled ankle during morning run. Swelling to lateral ankle. 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 Reason Comments Routine Visit Care Teams (unrecognized sec tion and content) Mail Handler Sorter Relationship Specialty Start Date End Date Evelyn Perez [address] [place] [address] PCP - General Pediatrics 09/22/22 Mail Handler Sorter Relationship Specialty Start Date End Date Jesse Regan MD [address] [place] [address] PCP - General Family Medicine 11/30/23 FOR [...] BE BASED ON THE PRIMARY CLINICAL RECORDS. [employer] provides no warranty or guarantee of the accuracy or completeness of information in this document.
[2024-02-16 12:09] VITALS: BP 126/60; PULSE 104
[2024-02-16] MEDS: BETAMETHASONE ACE/BETAMETHASONE SOD PHOS 30 MG/5 ML 12 MG IM (12:12)
== END 2024-02-16 12:16 | disposition home or self-care (01) ==
LOC: FBCO 07:51 → FBC 12:04
PROVIDERS: Visit Provider Obstetrics & Gynecology
DX: O60.00 Preterm labor without delivery, unspecified trimester (principal); Z3A.00 Weeks of gestation of pregnancy not specified
CPT/HCPCS: 96372; J0702

== ENCOUNTER 2024-02-18 07:10 | Outpatient (OUT) | payer OTHER, SELFPAY ==
--- OUTSIDE RECORDS SUMMARY | 2024-02-18 07:13 | XMS_ITS | CCD ---
Author Organization [facility] Care Team Providers Care Service Assistant Name Role Phone Bruce Mayes Attending Unavailable [...] HER Unavailable Unavaila ble OBGYN IVF RDMS [id number] 1, MG OBGYN Unavailable Unavailable Lapkathrine King Unavailable Unavailable Shahla Healy Unavailable Unavailable January, Jami Unavailable Unavailable Evelyn Perez Unavailable [phone] Unavailable Unavailable Unavailable Unavailable Sabina Barnhart Unavailable [...] Unavailable Ana, Evelyn Husain Primary Care Provider [phone] JAMI ROMERO Attending Unavailable ANA, EVELYN Husain Primary Care Unavailabl e ANA, EVELYN M Primary Care UnavailLc Rick Admitting Unavailable Evelyn Perez Primary Care Unavailable Lc Waite Attending Unavailable Jesse Regan MD Primary Care Provider [facility], Zoya Cheung Attending Evelyn Robertson MD Primary Care Zamzam vailasánchez Perez MD, Evelyn Gracia Primary Care Zamzma vailable Link KEEGANLYE BOILER, Zoya Cheung Attending Zamzamva DEMARIO Hoang Attending Unavailable BERE STEEL Attending Unavailable ELSA, BERE Attending Unavailable DEMARIO RIBEIRO Attending Unavailable BERE STEEL Attending Unavailable DEMARIO RIBEIRO Attending Unavailable DEMARIO RIBEIRO Attending Unavailable Allergies Allergy Classification Reported Allergen(s) Allergy Type Date of Onset Reaction(s) Facility Progesterone (2 sources) Progesterone; Translations: [Progesterone OIL] Drug Allergy [id number] n 310 IVF Work Phone: (16 sources) Progesterone; Translations: [Progesterone OIL] Drug Allergy [facility] (2 sources) sesame seed extract Drug Allergy [facility] Repository (2 sources) Progesterone Drug Allergy 2 [facility] (1 source) No Known Medication Allergies; Translations: [No Known Medication Allergies] Propensity to adverse reactions to drug (disorder) [facility] Repository Medications Current Medications Medication Drug [...] Kelechi Gage MD Start : 14-Aug-2019 Active [id number] 200 actuat albuterol 0.09 mg/actuat metered dose [...] DO Start : 19-Jan-2019 Active BD Disp [place] 27G X 1/2 (19 sources) Start: 10-03-2019 BD Disp Needle s 27G X 1/2 USE DIRECTED. Quantity: 2 Refills: 2 Shahla Healy MD Start : 03-Oct-2019 Active chorionic gonadotropin 70163 unt/ml injectable solution (19 sources) Gonadotropin Start: 10-03-2019 Chorionic Gonadotropin 71316 UNIT Intramuscular Solution Reconstituted USE DIRECTED. Quantity: [...] as directed. Quantity: 1 Refills: 0 King Guevaar MD Start : 25-Dec-2019 Active Start: 12-25-2019 Peak Air Peak Flow Meter Device USE DIRECTED. Quantity: 1 Refills: 0 King Guevara MD Start : 25-Dec-2019 Active Peak Flow Meter [place] Rang Device (3 sources) Start: 01-23-2020 Peak Flow Mete r [place] Device USE DIRECTED. Quantity: 1 [...] refills. Continue with anticoagulation as prescribed by SURGICAL TERRITORY MANAGER, patient is currently 30 weeks gestation. [...] embolism Historical No qualifying data Procedure/Surgical History [place] Teeth Removal (2005) IVF (11/15/2018) Medications Dulera [...] Zoya PERKINS 01/10/24 12:40 EST Normal [facility] Phone Note - Heme Onc-medica tion questionon 07-12-2023 Phone Note - Heme Onc-medication question Phone Call Information: Patient Demographics: Name: KIARA ASHLEY Date: 1990 Address: [address] [place] [address] Date and Time: 12-Jul-2023 09:31 Caller Information: call from Call From: patient Caller Name: Kiara Primary Phone Number: [phone] Reason for Call: Reason for Callmedication question Message: Message: Patient found out yesterday that she is so she will need to double her Lovenox Asking for new RX Caller Informed Of: Per Dr. Mayes: she needs lovenox 40 mg SC BID for first trimester Team Communication: Clinician note: contacted patient Disposition: Rx sent by [employer] Team Communications: Spoke with the patient. States she is positive for . Provided update from Dr. Mayes above. Pt asked for script to be sent to [facility]. Script sent. Pt had no further [...] 09:57 by Harmony Ross (N MGR) Normal [facility] XR ANKLE LEFT (MIN 3 [...] MD 02/27/23 Final result Normal [facility] 1. No acute osseous abnormality involving the [...] acute osseous abnormality involving the left ankle. [employer] Phone: Radiology Study observation (narrative) [employer] Phone: XR ANKLE LEFT (MIN 3 VIEWS)O rdered By: Dario Stewart on 02-27-2023 [employer] Phone: PAP ACOG PANEL 2: 30 to 65on 01-19-2023 . . Normal [facility] Comment on above: Result Comment: Perf ormed at: WB Performed By: #### [id number] #### [facility] [address] [address] [address] Claire Mayes Age Gdln ACOG Testing 31- Normal [facility] Comment on above: Performed By: #### [id number] #### [facility] [address] [address] [address] Claire Mayes DIAGNOSIS: Comment Normal [facility] Comment on above: Result Comment: NEGA TIVE FOR INTRAEPITHELIAL LESION OR MALIGNANCY. Performed at: WB Performed By: #### [id number] #### [facility] [address] [address] [address] Claire Mayes HPV Aptima Negative Normal Negative [facility] Comment on above: Result Comment: This nucleic acid amplification test detects fourteen high-risk HPV types (16,18,31,33,35,39,45,51,52,56,58,59,66,68) without differentiation. Performed at: =G Performed By: #### 4 [id number] #### [facility] [address] [address] [address] Claire Mayes HPV Genotype Reflex Comment Normal [facility] Comment on above: Result Comment: Crit eria not met, HPV Genotype not performed. Performed at: WB Performed By: #### 4 [id number] #### [facility] [address] [address] [address] Claire Mayes Methodology: Comment Normal [facility] Comment on above: Result Comment: This liquid based ThinPrep(R) pap test was screened with the use of an image guided system. Performed at: WB Performed By: #### 4 [id number] #### [facility] [address] [place] [address] Dr. Claire Mayes Note: Comment Normal [facility] Comment on above: Result Comment: The Pap smear is a screening test designed to aid in the detection of premalignant and malignant conditions of the uterine cervix. It is not a diagnostic procedure and should not be used as the sole means of detecting cervical cancer. Both false-positive and false-negative reports do occur. . Performed at: WB Performed By: #### [id number] #### [facility] [address] [place] [address] Dr. Claire Mayes Performed by: Comment Normal [facility] Comment on above: Result Comment: Sherlyn Wright, Cornice Upholsterer (ASCP) Performed at: WB Performed By: #### [id number] #### [facility] [address] [place] [address] Dr. Claire Mayes Specimen adequacy: Comment Normal [facility] Comment on above: Result Comment: Sati sfactory for evaluation. No endocervical component is identified. Performed at: WB Performed By: #### [id number] #### [facility] [address] [place] [address] Dr. Claire Mayes CBC with Diffon 09-22-2022 Abs. Basophil 0.03 k/uL Normal 0.00-0.20 [facility] Comment on above: Performed By: #### L BJ BUCK, CP #### [facility] [address] [place] [address] [address] [id number] Fisheries Inspector: Jesse Curry MD Abs.Imm.Granulocy te 0.04 k/uL Normal 0.00-0.30 [facility] Comment on above: Performed By: #### L BJ BUCK, CP #### [facility] [address] [place] [place] [id number] Fisheries Inspector: Jesse Curry MD Abs.Neutrophil (Seg) 12.54 k/uL High 1.50-8.10 [facility] Comment on above: Performed By: #### L IP, CDP, CP #### [facility] [address] [place], [place] [address] Fisheries Inspector: Jesse Curry MD Basophils/100 WBC (Bld) 0 % Normal 0-2 [facility] Comment on above: Performed By: #### L IP, CDP, CP #### [address] [place], [place] [address] Fisheries Inspector: Jesse Curry MD Eosinophils (Bld) [#/Vol] 0.16 10*3/uL Normal 0.00-0.44 [facility] Comment on above: Performed By: #### L IP, CDP, CP #### [address] [place], [place] [address] Fisheries Inspector: Jesse Curry MD Eosinophils/100 WBC (Bld) 1 % Normal 1-4 [facility] Comment on above: Performed By: #### L IP, CDP, CP #### [address] [place], [facility]83 Fisheries Inspector: Jesse Curry MD Erythrocyte distribution width (RBC) [Ratio] 13.6 % Normal 11.8-14.4 [facility] Comment on above: Performed By: #### L IP, CDP, CP #### [address] [place], [place] [address] Fisheries Inspector: Jesse Curry MD Hematocrit (Bld) [Volume fraction] 46.4 % Normal 36.3-47.1 [facility] Comment on above: Performed By: #### L IP, CDP, CP #### [address] [place], [facility] Fisheries Inspector: Jesse Curry MD Hemoglobin (Bld) [Mass/Vol] 15.6 g/dL High 11.9-15.1 [facility] Comment on above: Performed By: #### L IP, CDP, CP #### [facility] [address] [place], [place] [id number] Fisheries Inspector: Jesse Curry MD Immature granulocytes/100 WBC (Bld) 0 % Normal 0 [facility] Comment on above: Performed By: #### L IP, CDP, CP #### [address] [place], [facility] Fisheries Inspector: Jesse Curry MD Lymphocytes (Bld) [#/Vol] 0.98 10*3/uL Low 1.10-3.70 [facility] Comment on above: Performed By: #### L IP, CDP, CP #### [address] [place], [facility] Fisheries Inspector: Jesse Curry MD Lymphocytes/100 WBC (Bld) 7 % Low 24-43 [facility] Comment on above: Performed By: #### L IP, CDP, CP #### [address] [place], [facility] Fisheries Inspector: Jesse Curry MD MCH (RBC) [Entitic mass] 30.4 pg Normal 25.2-33.5 [facility] Comment on above: Performed By: #### L IP, CDP, CP #### [address] [place], [facility] Fisheries Inspector: Jesse Curry MD MCHC (RBC) [Mass/Vol] 33.6 g/dL Normal 28.4-34.8 [facility] Comment on above: Performed By: #### L IP, CDP, CP #### [address] [place] [address] Fisheries Inspector: Jesse Curry MD MCV (RBC) [Entitic vol] 90.3 fL Normal 82.6-102.9 [facility] Comment on above: Performed By: #### L IP, CDP, CP #### [address] [place], [facility] Fisheries Inspector: Jesse Curry MD Monocytes (Bld) [#/Vol] 0.58 10*3/uL Normal 0.10-1.20 [facility] Comment on above: Performed By: #### L IP, CDP, CP #### [facility] [address] [place], [facility] Fisheries Inspector: Jesse Curry MD Monocytes/100 WBC (Bld) 4 % Normal 3-12 [facility] Comment on above: Performed By: #### L IP, CDP, CP #### [address] [place], [place] [address] Fisheries Inspector: Jesse Curry MD Neutrophil (Seg) 88 % High 36-65 [facility] Comment on above: Performed By: #### L IP, CDP, CP #### [address] [place], [facility] Fisheries Inspector: Jesse Curry MD NRBC Automated 0.0 per 100 WBC Normal 0.0 [facility] Comment on above: Performed By: #### L IP, CDP, CP #### [address] [place], [facility] Fisheries Inspector: Jesse Curry MD Platelet mean volume (Bld) [Entitic vol] 9.9 fL Normal 8.1-13.5 [facility] Comment on above: Performed By: #### L IP, CDP, CP #### [facility] [address] [place] [address] Dr. [place], [facility] Fisheries Inspector: Jesse Curry MD Platelets (Bld) [#/Vol] 299 10*3/uL Normal 138-453 [facility] Comment on above: Performed By: #### L IP, CDP, CP #### [facility] [address] [place], [facility] Fisheries Inspector: Jesse Curry MD RBC (Bld) [#/Vol] 5.14 10*6/uL High 3.95-5.11 [facility] Comment on above: Performed By: #### L BJ BUCK, CP #### [facility] [address] [place], [place] [id number] Fisheries Inspector: Jesse Curry MD WBC (Bld) [#/Vol] 14.3 10*3/uL High 3.5-11.3 [facility] Comment on above: Performed By: #### L BJ BUCK, CP #### [facility] [address] [place] [address] Fisheries Inspector: Jesse Curry MD CT ABDOMEN PELVIS [...] DO 09/22/22 Final result Normal [facility] Comp Metabolic Profon 2021 Albumin [Mass/Vol] 4.7 g/dL Normal 3.5-5.2 [facility] Comment on above: Performed By: #### L IP, CDP, CP #### [facility] [address] [place] [address] Fisheries Inspector: Jesse Curry MD Albumin/Glob Ratio 2.0 Normal 1.0-2.5 [facility] Comment on above: Performed By: #### L IP, CDP, CP #### [address] [place] [address] Fisheries Inspector: Jesse Curry MD Alkaline Phos 77 U/L Normal 35-104 [facility] Comment on above: Performed By: #### L IP, CDP, CP #### [address] [place] [address] Fisheries Inspector: Jesse Curry MD ALT [Catalytic activity/Vol] 10 U/L Normal 5-33 [facility] Comment on above: Performed By: #### L IP, CDP, CP #### [address] [place] [address] Fisheries Inspector: Jesse Curry MD Anion gap [Moles/Vol] 12 mmol/L Normal 9-17 [facility] Comment on above: Performed By: #### L IP, CDP, CP #### [address] [place] [address] Fisheries Inspector: Jesse Curry MD AST [Catalytic activity/Vol] 14 U/L Normal <32 [facility] Comment on above: Performed By: #### L IP, CDP, CP #### [facility] [address] [place], [place] [id number] Fisheries Inspector: Jesse Curry MD Bilirubin [Mass/Vol] 0.6 mg/dL Normal 0.3-1.2 [facility] Comment on above: Performed By: #### L IP, CDP, CP #### [facility] [address] [place], [place] [id number] Fisheries Inspector: Jesse Curry MD BUN/CRE Ratio 31 High 9-20 [facility] Comment on above: Performed By: #### L IP, CDP, CP #### [address] [place], [place] [id number] Fisheries Inspector: Jesse Curry MD Calcium [Mass/Vol] 9.8 mg/dL Normal 8.6-10.4 [facility] Comment on above: Performed By: #### L IP, CDP, CP #### [facility] [address] [place] [address] Dr. [place], [place] [id number] Fisheries Inspector: Jesse Curry MD Chloride [Moles/Vol] 104 mmol/L Normal 98-107 [facility] Comment on above: Performed By: #### L IP, CDP, CP #### [facility] [address] [place] [address] Dr. [place], [place] [id number] Fisheries Inspector: Jesse Curry MD CO2 [Moles/Vol] 22 mmol/L Normal 20-31 [facility] Comment on above: Performed By: #### L IP, CDP, CP #### [facility] [address] [place] [address] Dr. [place], [place] [id number] Fisheries Inspector: Jesse Curry MD Creatinine [Mass/Vol] 0.85 mg/dL Normal 0.50-0.90 [facility] Comment on above: Performed By: #### L IP, CDP, CP #### [facility] [address] [place] [address] Dr. [place], [place] [id number] Fisheries Inspector: Jesse Curry MD GFR/1.73 sq M.predicted among non-blacks MDRD (S/P/Bld) [Vol rate/Area] mL/min/{1.73_m2} Normal >60 [facility] Comment on above: Result Comment: Effective Aug [...] By: #### L BJ BUCK, CP #### [address] [place] [address] Fisheries Inspector: Jesse Curry MD Glucose [Mass/Vol] 109 mg/dL High 70-99 [facility] Comment on above: Performed By: #### L BJ BUCK, CP #### [address] [place] [address] Fisheries Inspector: Jesse Curry MD Potassium [Moles/Vol] 4.0 mmol/L Normal 3.7-5.3 [facility] Comment on above: Performed By: #### L CIELO CDP, CP #### [address] [place] [address] Fisheries Inspector: Jesse Curry MD Protein [Mass/Vol] 7.1 g/dL Normal 6.4-8.3 [facility] Comment on above: Performed By: #### L CIELO CDP, CP #### [address] [place] [address] Fisheries Inspector: Jesse Curry MD Sodium [Moles/Vol] 138 mmol/L Normal 135-144 [facility] Comment on above: Performed By: #### L IP CDP, CP #### [address] [place] [address] Fisheries Inspector: Jesse Curry MD Urea nitrogen [Mass/Vol] 26 mg/dL High 6-20 [facility] Comment on above: Performed By: #### L BJ BUCK, CP #### [facility] [address] [place] [address] Fisheries Inspector: Jesse Curry MD HCG, ,Urineon 09-22 Beta HCG ( test) Ql (U) Negative Normal NEG [facility] Comment on above: Result Comment: Spec imens with hCG levels near the threshold of the test (25 mIU/mL) may give a negative or indeterminate result. In such cases, another test should be performed with a new specimen in 48-72 hours. If early is suspected clinically in this setting, correlation with quantitative serum b-hCG level is suggested. [facility] has confirmed the use of plasma for this test. This has not been cleared or approved by the U.S. Food and Drug Administration. The FDA has determined that such clearance is not necessary. Performed By: #### U HCG #### [facility] [address] [place] [address] Fisheries Inspector: Jesse Curry MD Lactic Acidon 09-22-2022 Lactate [Moles/Vol] 1.8 mmol/L Normal 0.5-2.2 [facility] Comment on above: Performed By: #### L ACTIC #### [facility] [address] [place] [address] Fisheries Inspector: Jesse Curry MD Lipaseon 09-22-2022 Lipase [Catalytic activity/Vol] 39 U/L Normal 13-60 [facility] Comment on above: Performed By: #### L BJ BUCK, CP #### [facility] [address] [place] [address] Fisheries Inspector: Jesse Curry MD UA w/Reflex Cultureon 2021 Bilirubin, SemiQt,Ur Negative Normal NEG [facility] Comment on above: Performed By: #### U MICAO, UAX #### [facility] [address] [place] [address] Dr. [place], [place] [id number] Fisheries Inspector: Jesse Curry MD Blood, Urine Negative Normal NEG [facility] Comment on above: Performed By: #### U MICAO, UAX #### [facility] [address] [place] [address] Dr. [place], [place] [id number] Fisheries Inspector: Jesse Curry MD Clarity (U) Clear Normal CLEAR [facility] Comment on above: Performed By: #### U MICAO, UAX #### [address] [place], [place] [id number] Fisheries Inspector: Jesse Curry MD Color (U) Yellow Normal YEL [facility] Comment on above: Performed By: #### U MICAO, UAX #### [facility] [address] [place] [address] Dr. [place], [place] [id number] Fisheries Inspector: Jesse Curry MD Glucose Ql (U) Negative Normal NEG [facility] Comment on above: Performed By: #### U MICAO, UAX #### [address] [place], [place] [id number] Fisheries Inspector: Jesse Curry MD Ketones Ql (U) Negative Normal NEG [facility] Comment on above: Performed By: #### U MICAO, UAX #### [facility] [address] [place] [address] Dr. [place], [place] [id number] Fisheries Inspector: Jesse Curry MD Leukocyte esterase Test strip Ql (U) Negative Normal NEG [facility] Comment on above: Performed By: #### U MICAO, UAX #### [address] [place], [place] 1998283 Fisheries Inspector: Jesse Curry MD Nitrite,Ur Negative Normal NEG [facility] Comment on above: Performed By: #### U MICAO, UAX #### [facility] [address] [place] [address] Dr. [place], [place] [id number] Fisheries Inspector: Jesse Curry MD PH,Ur 8.0 Normal 5.0-9.0 [facility] Comment on above: Performed By: #### U MICAO, UAX #### [facility] [address] [place] [address] Dr. [place], [place] [id number] Fisheries Inspector: Jesse Curry MD Protein Ql (U) Negative Normal NEG [facility] Comment on above: Performed By: #### U MICAO, UAX #### [address] [place], [place] [id number] Fisheries Inspector: Jesse Curry MD Spec. [place],Ur 1.020 Normal 1.010-1.020 [facility] Comment on above: Performed By: #### U MICAO, UAX #### [facility] [address] [place] [address] Dr. [place], [place] [id number] Fisheries Inspector: Jesse Curry MD Urobilinogen,Ur Normal Normal NORM [facility] Comment on above: Performed By: #### U MICAO, UAX #### [address] [place], [place] [id number] Fisheries Inspector: Jesse Curry MD Urinalysis,Microon 2 Bacteria TRACE Abnormal NONE [facility] Comment on above: Performed By: #### U MICAO, UAX #### [facility] [address] [place] [address] Dr. [place], [place] [id number] Fisheries Inspector: Jesse Curry MD Epithelial cells LM Ql (Urine sed) 0 TO 2 Normal 0-25 [facility] Comment on above: Performed By: #### U MICAO, UAX #### [facility] [address] [place] [address] [place] [address] Fisheries Inspector: Jesse Curry MD Urine RBC's None Normal 0-2 [facility] Comment on above: Performed By: #### U MICAO, UAX #### [facility] [address] [place], [place] [id number] Fisheries Inspector: Jesse Curry MD Urine WBC's 0 TO 2 Normal 0-5 [facility] Comment on above: Performed By: #### U DARIO, UAX #### [facility] [address] [place] [address] Fisheries Inspector: Jesse Curry MD CBC AUTO DIFFon 02-20-2022 BASO # 0.1 103/ul Normal 0.0-0.1 [facility] Comment on above: Performed By: #### C BC #### [facility] [address] [place] [address] Dr. Claire Mayes Basophils/100 WBC (Bld) 0.8 % Normal 0.2-2.0 [facility] Comment on above: Performed By: #### C BC #### [facility] [address] [place] [address] Dr. Claire Mayes EO # 0.2 103/ul Normal 0.0-0.7 [facility] Comment on above: Performed By: #### C BC #### [facility] [address] [place] [address] Dr. Claire Mayes Eosinophils/100 WBC (Bld) 0.9 % Normal 0.9-7.0 [facility] Comment on above: Performed By: #### C BC #### [facility] [address] [place] [address] Dr. Claire Mayes Erythrocyte distribution width (RBC) [Ratio] 15.0 % Normal 11.0-15.0 [facility] Comment on above: Performed By: #### C BC #### [facility] [address] [place] [address] Dr. Claire Mayes Hematocrit (Bld) [Volume fraction] 31.3 % Critically low 36.0-48.0 [facility] Comment on above: Performed By: #### C BC #### [facility] [address] [place] [address] Dr. Claire Mayes Hemoglobin (Bld) [Mass/Vol] 10.3 g/dL Critically low 12.0-16.0 [facility] Comment on above: Performed By: #### C BC #### [facility] [address] [place] [address] Dr. Claire Mayes IG # 0.21 10e3/ul Critically high 0.00-0.03 [facility] Comment on above: Performed By: #### C BC #### [facility] [address] [address] [address] Claire Mayes IG % 1.3 % Critically high 0.0-0.5 [facility] Comment on above: Performed By: #### C BC #### [facility] [address] [place] [address] Dr. Claire Mayes LYMPH # 2.1 103/ul Normal 1.2-3.8 [facility] Comment on above: Performed By: #### C BC #### [facility] [address] [place] [address] Dr. Claire Mayes Lymphocytes/100 WBC (Bld) 12.6 % Critically low 20.5-60.0 [facility] Comment on above: Performed By: #### C BC #### [facility] [address] [place] [address] Dr. Claire Mayes MANUAL DIFF REQ NO Normal [facility] Comment on above: Performed By: #### C BC #### [facility] [address] [place] [address] Dr. Claire Mayes MCH (RBC) [Entitic mass] 29.8 pg Normal 26.7-34.0 [facility] Comment on above: Performed By: #### C BC #### [facility] [address] [place] [address] Dr. Claire Mayes MCHC (RBC) [Mass/Vol] 32.9 g/dL Normal 29.9-35.2 [facility] Comment on above: Performed By: #### C BC #### [facility] [address] [place] [address] Dr. Claire Mayes MCV (RBC) [Entitic vol] 90.5 fL Normal 81.0-99.0 [facility] Comment on above: Performed By: #### C BC #### [facility] [address] [place] [address] Dr. Claire Mayes MONO # 0.8 103/ul Normal 0.3-0.8 [facility] Comment on above: Performed By: #### C BC #### [facility] [address] [place] [address] Dr. Claire Mayes Monocytes/100 WBC (Bld) 5.1 % Normal 1.7-12.0 [facility] Comment on above: Performed By: #### C BC #### [facility] [address] [place] [address] Dr. Claire Mayes NEUT # 13.2 103/ul Critically high 1.4-6.5 [facility] Comment on above: Performed By: #### C BC #### [facility] [address] [place] [address] Dr. Claire Mayes Neutrophils/100 WBC (Bld) 79.3 % Critically high 43.0-75.0 [facility] Comment on above: Performed By: #### C BC #### [facility] [address] [place] [address] Dr. Claire Mayes Platelet mean volume (Bld) [Entitic vol] 10.4 fL Normal 9.5-13.5 [facility] Comment on above: Performed By: #### C BC #### [facility] [address] [place] [address] Dr. Claire Mayes PLT 233 103/ul Normal 150-450 [facility] Comment on above: Performed By: #### C BC #### [facility] [address] [place] [address] Dr. Claire Mayes RBC 3.46 106/ul Critically low 4.20-5.40 [facility] Comment on above: Performed By: #### C BC #### [facility] [address] [place] [address] Dr. Claire Mayes WBC 16.6 103/ul Critically high 4.0-11.0 [facility] Comment on above: Performed By: #### C BC #### [facility] [address] [address] [address] Claire Mayes CBC AUTO DIFFon 02-18-2022 BASO # 0.1 103/ul Normal 0.0-0.1 [facility] Comment on above: Performed By: #### C BC #### [facility] [address] [address] [address] Claire Mayes Basophils/100 WBC (Bld) 0.7 % Normal 0.2-2.0 [facility] Comment on above: Performed By: #### C BC #### [facility] [address] [place] [address] Dr. Claire Mayes EO # 0.2 103/ul Normal 0.0-0.7 [facility] Comment on above: Performed By: #### C BC #### [facility] [address] [place] [address] Dr. Claire Mayes Eosinophils/100 WBC (Bld) 1.2 % Normal 0.9-7.0 [facility] Comment on above: Performed By: #### C BC #### [facility] [address] [place] [address] Dr. Claire Mayes Erythrocyte distribution width (RBC) [Ratio] 15.0 % Normal 11.0-15.0 [facility] Comment on above: Performed By: #### C BC #### [facility] [address] [place] [address] Dr. Claire Mayes Hematocrit (Bld) [Volume fraction] 35.1 % Critically low 36.0-48.0 [facility] Comment on above: Performed By: #### C BC #### [facility] [address] [place] [address] Dr. Claire Mayes Hemoglobin (Bld) [Mass/Vol] 11.8 g/dL Critically low 12.0-16.0 [facility] Comment on above: Performed By: #### C BC #### [facility] [address] [place] [address] Dr. Claire Mayes IG # 0.30 10e3/ul Critically high 0.00-0.03 [facility] Comment on above: Performed By: #### C BC #### [facility] [address] [place] [address] Dr. Claire Mayes IG % 1.9 % Critically high 0.0-0.5 [facility] Comment on above: Performed By: #### C BC #### [facility] [address] [place] [address] Dr. Claire Mayes LYMPH # 2.9 103/ul Normal 1.2-3.8 [facility] Comment on above: Performed By: #### C BC #### [facility] [address] [place] [address] Dr. Claire Mayes Lymphocytes/100 WBC (Bld) 18.5 % Critically low 20.5-60.0 [facility] Comment on above: Performed By: #### C BC #### [facility] [address] [place] [address] Dr. Claire Mayes MANUAL DIFF REQ NO Normal [facility] Comment on above: Performed By: #### C BC #### [facility] [address] [place] [address] Dr. Claire Mayes MCH (RBC) [Entitic mass] 30.2 pg Normal 26.7-34.0 [facility] Comment on above: Performed By: #### C BC #### [facility] [address] [place] [address] Dr. Claire Mayes MCHC (RBC) [Mass/Vol] 33.6 g/dL Normal 29.9-35.2 [facility] Comment on above: Performed By: #### C BC #### [facility] [address] [place] [address] Dr. Claire Mayes MCV (RBC) [Entitic vol] 89.8 fL Normal 81.0-99.0 [facility] Comment on above: Performed By: #### C BC #### [facility] [address] [place] [address] Dr. Claire Mayes MONO # 0.7 103/ul Normal 0.3-0.8 [facility] Comment on above: Performed By: #### C BC #### [facility] [address] [address] [address] Claire Mayes Monocytes/100 WBC (Bld) 4.7 % Normal 1.7-12.0 [facility] Comment on above: Performed By: #### C BC #### [facility] [address] [address] [address] Claire Mayes NEUT # 11.3 103/ul Critically high 1.4-6.5 [facility] Comment on above: Performed By: #### C BC #### [facility] [address] [address] [address] Claire Mayes Neutrophils/100 WBC (Bld) 73.0 % Normal 43.0-75.0 [facility] Comment on above: Performed By: #### C BC #### [facility] [address] [place] [address] Dr. Claire Mayes Platelet mean volume (Bld) [Entitic vol] 10.8 fL Normal 9.5-13.5 [facility] Comment on above: Performed By: #### C BC #### [facility] [address] [address] [address] Claire Mayes PLT 233 103/ul Normal 150-450 [facility] Comment on above: Performed By: #### C BC #### [facility] [address] [place] [address] Dr. Claire Mayes RBC 3.91 106/ul Critically low 4.20-5.40 [facility] Comment on above: Performed By: #### C BC #### [facility] [address] [address] [address] Claire Mayes WBC 15.5 103/ul Critically high 4.0-11.0 [facility] Comment on above: Performed By: #### C BC #### [facility] [address] [address] [address] Claire Mayes Covid-19 PCR ([facility])on SARS-CoV-2 (COVID-19) RNA FERDINAND+probe Ql (Unsp spec) Not detected Normal NOT DETECTED [facility] Comment on above: Result Comment: When [...] for this test is supported by the [place] of [employer] and Human Service's declaration that [...] used). Performed By: #### C VDTBH #### [facility] [address] [place] [address] Dr. Claire Mayes DRUG SCREEN RAPID (URINE)on 02-18-2022 AMP Negative Normal NEGATIVE [facility] Comment on above: Performed By: #### D RUGRPD #### [facility] [address] [place] [address] Dr. Claire Mayes BAR Negative Normal NEGATIVE [facility] Comment on above: Performed By: #### D RUGRPD #### [facility] [address] [place] [address] Dr. Claire Mayes BUP Negative Normal NEGATIVE [facility] Comment on above: Performed By: #### D RUGRPD #### [facility] [address] [place] [address] Dr. Claire Mayes BZO Negative Normal NEGATIVE [facility] Comment on above: Performed By: #### D RUGRPD #### [facility] [address] [place] [address] Dr. Claire Mayes KIT Negative Normal NEGATIVE [facility] Comment on above: Performed By: #### D RUGRPD #### [facility] [address] [place] [address] Dr. Claire Mayes CUT-OFFS SEE BELOW Normal [facility] Comment on above: Result Comment: AMP [...] ng/mL Performed By: #### D RUGRPD #### [facility] [address] [place] [address] Dr. Claire Mayes DRUG CUT HEADER DRUG CLASS TEST SYST EM CUT-OFF CONCENTRATIONS ARE FOLLOWS: Normal [facility] Comment on above: Performed By: #### D RUGRPD #### [facility] [address] [place] [address] Dr. Claire Mayes mAMP Negative Normal NEGATIVE [facility] Comment on above: Performed By: #### D RUGRPD #### [facility] [address] [place] [address] Dr. Claire Mayes MTD Negative Normal NEGATIVE [facility] Comment on above: Performed By: #### D RUGRPD #### [facility] [address] [place] [address] Dr. Claire Mayes OPI Negative Normal NEGATIVE [facility] Comment on above: Performed By: #### D RUGRPD #### [facility] [address] [place] [address] Dr. Claire Mayes OXY Negative Normal NEGATIVE [facility] Comment on above: Performed By: #### D RUGRPD #### [facility] [address] [place] [address] Dr. Claire Mayes PCP Negative Normal NEGATIVE [facility] Comment on above: Performed By: #### D RUGRPD #### [facility] [address] [address] [address] Claire Mayes PPX Negative Normal NEGATIVE [facility] Comment on above: Performed By: #### D RUGRPD #### [facility] [address] [address] [address] Claire Mayes TCA Negative Normal NEGATIVE [facility] Comment on above: Performed By: #### D RUGRPD #### [facility] [address] [place] [address] Dr. Claire Mayes THC Negative Normal NEGATIVE [facility] Comment on above: Performed By: #### D RUGRPD #### [facility] [address] [place] [address] Dr. Claire Mayes TYPE AND SCREENon 02-18-2022 TYPE AND SCREEN Negative Normal [facility] Comment on above: Performed By: #### T NS #### [facility] [address] [place] [address] Dr. Claire Mayes US PREG BIOPHY W [...] by: JESSE THOMAS Date: 2022-02-17 14:27 Normal [facility] US PREG BIOPHY W NON STRESSo [...] by: BLU FELIPE Date: 2022-02-10 16:40 Normal [facility] GROUP B STREP CULTUREon 01-14 S. agalactiae Ag Ql (Unsp spec) Culture Observations: Beta Strep called to Belgica Lange at office 02/04/22 @[address] [place] [address] Isolate 1 Streptococcus agalactiae Heavy growth of ORGANISM 1 Streptococcus agalactiae ANTIBIOTIC M.I.C RX STATUS Benzylpenicillin <=0.06 S F Ampicillin <=0.25 S F Cefotaxime <=0.12 S F Ceftriaxone <=0.12 S F Levofloxacin 0.5 S F Erythromycin 2 R F Clindamycin <=0.25 S F Linezolid <=2 S F Vancomycin 0.5 S F Tetracycline >=16 R F Normal [facility] Comment on above: Performed By: #### G BSCX #### [facility] [address] [place] [address] Dr. 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 Verbal consent obtained for telemedicine visit. 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 Hx: LMP: 05/29/21 Menstrual cycles: Have been fairly regular for the past 3 months; 30-35 days Pap smear: 2018, up to date Mammogram: None PMH/Surg Hx/Social Hx: See below Hx of Clotting disorders: Yes- Protein S deficiency Currently on Lovenox 40 mg daily Was on Lovenox 60 mg daily prior to Needs to be on therapeutic dosing when Genetic Screening Hx: twidox foresight screen negative Partner History: Franklin Ashley 04/09/1990 SA in past year: 2.8 cc 125 mil/mL 69% motility YRS=494 million (recent IUI sample) Morph from original SA was 2.8% Active Problems Problems 16 weeks gest (more content not included)... Normal [facility] CBC AND DIFFERENTIALon 08-06 % AUTOMATED IMMATURE GRAN 0.3 % Normal 0.0 - 0.9 [facility] Comment on above: Result Comment: Graciela ture Granulocyte Count (IG) includes promyelocytes, myelocytes and metamyelocytes but does not include bands. Percent differential counts (%) should be interpreted in the context of the absolute cell counts (cells/L). Performed By: #### C BCDF #### [address] [place] [address] Basophils (Bld) [#/Vol] 0.09 10*3/uL Normal 0.00 - 0.10 [facility] Comment on above: Performed By: #### C BCDF #### [address] [place] [address] Basophils/100 WBC (Bld) 0.9 % Normal 0.0 - 2.0 [facility] Comment on above: Performed By: #### C BCDF #### [address] [place] [address] Eosinophils (Bld) [#/Vol] 0.23 10*3/uL Normal 0.00 - 0.70 [facility] Comment on above: Performed By: #### C BCDF #### [address] [place] [address] Eosinophils/100 WBC (Bld) 2.4 % Normal 0.0 - 6.0 [facility] Comment on above: Performed By: #### C BCDF #### [address] [place] [address] Erythrocyte distribution width (RBC) [Ratio] 14.3 % Normal 11.5 - 14.5 [facility] Comment on above: Performed By: #### C BCDF #### [address] [place] [address] Hematocrit (Bld) [Volume fraction] 40.4 % Normal 36.0 - 46.0 [facility] Comment on above: Performed By: #### C BCDF #### [address] [place] [address] Hemoglobin (Bld) [Mass/Vol] 12.9 g/dL Normal 12.0 - 16.0 [facility] Comment on above: Performed By: #### C BCDF #### [address] [place] [address] Lymphocytes (Bld) [#/Vol] 2.44 10*3/uL Normal 1.20 - 4.80 [facility] Comment on above: Performed By: #### C BCDF #### [address] [place] [address] Lymphocytes/100 WBC (Bld) 25.7 % Normal 13.0 - 44.0 [facility] Comment on above: Performed By: #### C BCDF #### [address] [place] [address] MCHC (RBC) [Mass/Vol] 31.9 g/dL Low 32.0 - 36.0 [facility] Comment on above: Performed By: #### C BCDF #### [address] [place] [address] MCV (RBC) [Entitic vol] 88 fL Normal 80 - 100 [facility] Comment on above: Performed By: #### C BCDF #### [address] [place] [address] Monocytes (Bld) [#/Vol] 0.55 10*3/uL Normal 0.10 - 1.00 [facility] Comment on above: Performed By: #### C BCDF #### [address] [place] [address] Monocytes/100 WBC (Bld) 5.8 % Normal 2.0 - 10.0 [facility] Comment on above: Performed By: #### C BCDF #### [address] [place] [address] Neutrophils (Bld) [#/Vol] 6.15 10*3/uL Normal 1.20 - 7.70 [facility] Comment on above: Performed By: #### C BCDF #### [address] [place] [address] Neutrophils/100 WBC (Bld) 64.9 % Normal 40.0 - 80.0 [facility] Comment on above: Performed By: #### C BCDF #### [address] [place] [address] Platelets (Bld) [#/Vol] 410 10*3/uL Normal 150 - 450 [facility] Comment on above: Performed By: #### C BCDF #### [address] [place] [address] RBC (Bld) [#/Vol] 4.58 x10E12/L Normal 4.00 - 5.20 [facility] Comment on above: Performed By: #### C BCDF #### [address] [place] [address] WBC (Bld) [#/Vol] 9.5 10*3/uL Normal 4.4 - 11.3 [facility] Comment on above: Performed By: #### C BCDF #### [address] [place] [address] SMOKING PIPE MOUNTER - Visiton 08-06-2020 SMOKING PIPE MOUNTER - Visit Chief Complaint The patient is [...] with LMWH and has follow-up with her Choir Singer 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 Reports her asthma is stable. [...] or homicidal ideation Vitals Vital Signs Recorded: [id number] 01:08PM Heart Rate62 Dptzonsl027 Uhhxraoqg68 Height5 ft 2 in Iavzbv217 lb BMI Wefievvovm43.28 BSA Calculated1.79 Tobacco Useb) No Fall Screeninga) [...] ongoing well-woman care with her current local Melter Clerk. She has Hematology follow-up today following our visit to discuss her anticoagulation plan for her thrombophilia. Her asthma remains clinically stable. Patient may return to routine physical activity. Reviewed she may return to our office at any point with questions. All questions answered. Ms. Ashley expressed understanding and agreement with the plan of care. King Guevara MD Signatures Electronically signed by : King Guevraa MD; Aug 06 2020 2:00PM EST (Author) Normal [facility] Complete Blood Count + Diffe marc 06-27-2020 Basophils/100 WBC (Bld) 0.5 % 0.0 - 2.0 DW-XAUZV-Fjqby[address] Work Phone: Eosinophils (Bld) [#/Vol] 0.24 {x10E9/L} See Below IK-UVGHN-Cwhor[address] Work Phone: Comment on above: Reference Range: 0.0 0 - 0.70 Eosinophils/100 WBC (Bld) 1.1 % 0.0 - 6.0 OO-BWZZX-Wiwka[address] Work Phone: Erythrocyte distribution width (RBC) [Ratio] 15.0 % above high threshold See Below XL-LHKSA-Qjtbq[address] Work Phone: Comment on above: Reference Range: 11. 5 - 14.5 Hematocrit (Bld) [Volume fraction] 30.0 % below low threshold See Below NT-QDXCT-Ppyyh[address] Work Phone: Comment on above: Reference Range: 36. 0 - 46.0 Hemoglobin (Bld) [Mass/Vol] 9.8 g/dL below low threshold See Below LB-QAUHJ-Oknkv[address] Work Phone: Comment on above: Reference Range: 12. 0 - 16.0 Lymphocytes (Bld) [#/Vol] 2.25 {x10E9/L} See Below RT-HHQUC-Hdilu wn 2nd Fl Work Phone: Comment on above: Reference Range: 1.2 0 - 4.80 Lymphocytes/100 WBC (Bld) 10.4 % See Below RJ-HSYEG-Ckczs wn 2nd Fl Work Phone: Comment on above: Reference Range: 13. 0 - 44.0 MCHC (RBC) [Mass/Vol] 32.7 g/dL See Below TQ-RTRJA-Hbhzq wn 2nd Fl Work Phone: Comment on above: Reference Range: 32. 0 - 36.0 MCV (RBC) [Entitic vol] 91 fL 80 - 100 QG-VFXMC-Iocsf wn 2nd Fl Work Phone: Monocytes (Bld) [#/Vol] 0.84 {x10E9/L} See Below BL-GLHLN-Kbimb wn 2nd Fl Work Phone: Comment on above: Reference Range: 0.1 0 - 1.00 Monocytes/100 WBC (Bld) 3.9 % 2.0 - 10.0 RT-LXYYS-Ujfdr wn 2nd Fl Work Phone: Neutrophils/100 WBC (Bld) 82.7 % See Below NS-OIESI-Rrciw wn 2nd Fl Work Phone: Comment on above: Reference Range: 40. 0 - 80.0 Platelets (Bld) [#/Vol] 225 {x10E9/L} 150 - 450 IA-GEELX-Kwxhq wn 2nd Fl Work Phone: RBC (Bld) [#/Vol] 3.31 {x10E12/L} below low threshold See Below BC-MKLWZ-Josdl wn 2nd Fl Work Phone: Comment on above: Reference Range: 4.0 0 - 5.20 WBC (Bld) [#/Vol] 0.0 {/100_WBC} 0.0-0.0 MG- OBGYN-[facility] 2nd Fl Work Phone: WBC (Bld) [#/Vol] 21.6 {x10E9/L} above high threshold 4.4 - 11.3 GU-CPOAP-Wwkfe[address] Work Phone: Complete Blood Count + Differential 0.11 {x10E9/L} above high threshold See Below TX-URPVC-Ptldo[address] Work Phone: Comment on above: Reference Range: 0.0 0 - 0.10 Complete Blood Count + Differential 1.4 % above high threshold 0.0 - 0.9 ZU-VSNWZ-Hfkwo[address] Work Phone: Comment on above: Immature Granulocyte Count (IG) includes promyelocytes, myelocytes and metamyelocytes but does not include bands. Percent differential counts (%) should be interpreted in the context of the absolute cell counts (cells/L). Complete Blood Count + Differential 17.85 {x10E9/L} above high threshold See Below NC-XIHBT-Wsnij[address] Work Phone: Comment on above: Reference Range: 1.2 0 - 7.70 Hematologyon 06-26-2020 Hematocrit (Bld) [Volume fraction] 30.5 % below low threshold See Below EV-EURGJ-Ugrji[address] Work Phone: Comment on above: Reference Range: 36. 0 - 46.0 Hemoglobin (Bld) [Mass/Vol] 10.7 g/dL below low threshold See Below OQ-YNOYC-Hgfhn[address] Work Phone: Comment on above: Reference Range: 12. 0 - 16.0 MCV (RBC) [Entitic vol] 84 fL 80 - 100 DT-DWWYL-Zptre[address] Work Phone: Platelets (Bld) [#/Vol] 258 {x10E9/L} 150 - 450 ZE-NNZTV-Mcitz[address] Work Phone: RBC (Bld) [#/Vol] 3.62 {x10E12/L} below low threshold See Below UW-GWXDI-Qohhm wn 2nd Fl Work Phone: Comment on above: Reference Range: 4.0 0 - 5.20 WBC (Bld) [#/Vol] 0.0 {/100_WBC} 0.0-0.0 MG- OBGYN-Midto 2nd Fl Work Phone: WBC (Bld) [#/Vol] 35.7 {x10E9/L} above high threshold 4.4 - 11.3 UG-UMADR-Jvtby wn 2nd Fl Work Phone: Otheron 06-26-2020 Erythrocyte distribution width (RBC) [Ratio] 14.6 % above high threshold See Below CL-MPRLP-Vrhxx wn 2nd Fl Work Phone: Comment on above: Reference Range: 11. 5 - 14.5 MCHC (RBC) [Mass/Vol] 35.1 g/dL See Below HI-IRSML-Aemoz 2nd Fl Work Phone: Comment on above: [...] 3.5 cm, located 1.0 cm from themargin. Export Documents Clerk sections are submitted in 5 cassettes.AXQ/LMPSummary of Cassettes:Specimen Label SiteA 1 umbilical cord sections 2 membrane rolls 3 placental parenchyma, umbilical cord insertion site 4 placental parenchyma 5 placental parenchyma, lesionaxq/06/26/2020 DA-KENPX-Ykobk wn 2nd Fl Work Phone: Coronavirus 2019 RNA by PCR, Symptomaticon 06-25-2020 Coronavirus 2019 RNA by PCR, Symptomatic NOT DETECTED See Below DY-NLJGD-Idzmw 2nd Pa Work Phone: Comment on above: SOURCE: Nasal, [...] this test method. Fact sheet for providers: www.fda.gov/media/688686/downloadFact sheet for patients: www.fda.gov/media/461163/downloadThis test has received FDA Emergency Use Authorization (EUA) and has been verified by [facility] ([facility]). This test is only authorized for the duration of time that circumstances exist to justify the authorization of the emergency use of in vitro diagnostic tests for the detection of SARS-CoV-2 virus and/or diagnosis of COVID-19 infection under section 564(b)(1) of the Act, 21 U.S.C. 360bbb-3(b)(1), unless the authorization is terminated or revoked sooner. [facility] is certified under CLIA-88 as qualified to perform high complexity testing. Testing is performed in the [facility] laboratories located at [address] [place] [address]. Hematologyon 06-25-2020 ABO group Nom (Bld) A [address] Work Phone: Blood group antibody screen Ql Negative [address] Work Phone: Hematocrit (Bld) [Volume fraction] 34.7 % below low threshold See Below [address] Work Phone: Comment on above: Reference Range: 36. 0 - 46.0 Hemoglobin (Bld) [Mass/Vol] 11.6 g/dL below low threshold See Below RQ-TXKIL-Hwoif[address] Work Phone: Comment on above: Reference Range: 12. 0 - 16.0 MCV (RBC) [Entitic vol] 90 fL 80 - 100 DO-QMJDC-Mqglm[address] Work Phone: Platelets (Bld) [#/Vol] 268 {x10E9/L} 150 - 450 HE-XWZPZ-Odjgb[address] Work Phone: RBC (Bld) [#/Vol] 3.85 {x10E12/L} below low threshold See Below PB-DLAHK-Aorfx[address] Work Phone: Comment on above: Reference Range: 4.0 0 - 5.20 Rh immune globulin screen (Bld) [Interp] Positive HX-JSWEH-Qbbws[address] Work Phone: WBC (Bld) [#/Vol] 0.0 {/100_WBC} 0.0-0.0 [facility] Work Phone: WBC (Bld) [#/Vol] 15.5 {x10E9/L} above high threshold 4.4 - 11.3 FM-GTGMR-Ruasu[address] Work Phone: Otheron 06-25-2020 Erythrocyte distribution width (RBC) [Ratio] 14.4 % See Below AE-MNAKR-Uqcki[address] Work Phone: Comment on above: Reference Range: 11. 5 - 14.5 MCHC (RBC) [Mass/Vol] 33.4 g/dL See Below [address] Work Phone: Comment on above: Reference Range: 32. 0 - 36.0 SYPHILIS SCREENING WITH REFL EXon 06-25-2020 T. pallidum IgG+IgM IA Ql (S) NONREACTIVE See Below [address] Work Phone: Comment on above: SOURCE: Reference Ra nge: NONREACTIVENo significant level of Treponema pallidum antibody detected. Repeat testing in 2 to 4 weeks may be considered if early infection or incubating syphilis infection is suspected. Imm/Pathon 06-07-2020 Bacteria identified Aer cx Nom (Genital specimen) PATIENT: KIARA ASHLEY LOCATION: [facility] [place] BILL#: [id number] : 89 AGE: SEX: F ORDERED BY: PARAS GUEVARA: VAGINAL COLLECTED: 06/07/20 09:36ANTIBIOTICS AT [facility].: RECEIVED : 06/08/20 07:27SITE: VAGINAL R E S U L T S GROUP B STREP SCREEN PRELIM 06/09/20 08:35 CULTURE IN PROGRESS. IR-JMGXZ-URT [address] [place] Work Phone: Bacteria identified Aer cx Nom (Genital specimen) PATIENT: KIARA ASHLEY LOCATION: [facility] [place] BILL#: [id number] : 89 AGE: SEX: F ORDERED BY: PARAS GUEVARA: VAGINAL COLLECTED: 06/07/20 09:36ANTIBIOTICS AT [place].: RECEIVED : 06/08/20 07:27SITE: VAGINAL R E S U L T S GROUP B STREP SCREEN FINAL 06/10/20 11:54 NEGATIVE FOR GROUP B BETA STREP. EC-XSJWZ-Plqvq wn 2nd Fl Work Phone: Otheron 06-07-2020 [...] malformations were identified on a limited survey-[facility] 06/22 The patient is aware of [...] signed by: RILEY TREVIÑO 06/07/20 09:33 Normal PG-KZSPL-TWN [address] [place] Work Phone: Comment on above: ORDER REVISED TO A O B FOLLOW UP OR REPEAT SCAN BY RADIOLOGIST; Original Order Number: [id number] CBC AND DIFFERENTIALon 04-24 % AUTOMATED IMMATURE GRAN 1.9 % High 0.0 - 0.9 [facility] Comment on above: Result Comment: Graciela ture Granulocyte Count (IG) includes promyelocytes, myelocytes and metamyelocytes but does not include bands. Percent differential counts (%) should be interpreted in the context of the absolute cell counts (cells/L). Performed By: #### C BCDF #### [address] [place] [address] Basophils (Bld) [#/Vol] 0.08 10*3/uL Normal 0.00 - 0.10 [facility] Comment on above: Performed By: #### C BCDF #### [address] [place] [address] Basophils/100 WBC (Bld) 0.5 % Normal 0.0 - 2.0 [facility] Comment on above: Performed By: #### C BCDF #### [address] [place] [address] Eosinophils (Bld) [#/Vol] 0.22 10*3/uL Normal 0.00 - 0.70 [facility] Comment on above: Performed By: #### C BCDF #### [address] [place] [address] Eosinophils/100 WBC (Bld) 1.5 % Normal 0.0 - 6.0 [facility] Comment on above: Performed By: #### C BCDF #### [address] [place] [address] Erythrocyte distribution width (RBC) [Ratio] 14.0 % Normal 11.5 - 14.5 [facility] Comment on above: Performed By: #### C BCDF #### [address] [place] [address] Hematocrit (Bld) [Volume fraction] 35.6 % Low 36.0 - 46.0 [facility] [place] Comment on above: Performed By: #### C BCDF #### [address] [place] [address] Hemoglobin (Bld) [Mass/Vol] 11.8 g/dL Low 12.0 - 16.0 [facility] [place] Comment on above: Performed By: #### C BCDF #### [address] [place] [address] Lymphocytes (Bld) [#/Vol] 2.38 10*3/uL Normal 1.20 - 4.80 [facility] Comment on above: Performed By: #### C BCDF #### [address] [place] [address] Lymphocytes/100 WBC (Bld) 16.0 % Normal 13.0 - 44.0 [facility] [place] Comment on above: Performed By: #### C BCDF #### [address] [place] [address] MCHC (RBC) [Mass/Vol] 33.1 g/dL Normal 32.0 - 36.0 [facility] [place] Comment on above: Performed By: #### C BCDF #### [address] [place] [address] MCV (RBC) [Entitic vol] 92 fL Normal 80 - 100 [facility] [place] Comment on above: Performed By: #### C BCDF #### [address] [place] [address] Monocytes (Bld) [#/Vol] 0.74 10*3/uL Normal 0.10 - 1.00 [facility] [place] Comment on above: Performed By: #### C BCDF #### [address] [place] [address] Monocytes/100 WBC (Bld) 5.0 % Normal 2.0 - 10.0 [facility] [place] Comment on above: Performed By: #### C BCDF #### [address] [place] [address] Neutrophils (Bld) [#/Vol] 11.17 10*3/uL High 1.20 - 7.70 [facility] [place] Comment on above: Performed By: #### C BCDF #### [address] [place] [address] Neutrophils/100 WBC (Bld) 75.1 % Normal 40.0 - 80.0 [facility] [place] Comment on above: Performed By: #### C BCDF #### [address] [place] [address] Platelets (Bld) [#/Vol] 285 10*3/uL Normal 150 - 450 [facility] [place] Comment on above: Performed By: #### C BCDF #### [address] [place] [address] RBC (Bld) [#/Vol] 3.89 x10E12/L Low 4.00 - 5.20 [facility] [place] Comment on above: Performed By: #### C BCDF #### [address] [place] [address] WBC (Bld) [#/Vol] 14.9 10*3/uL High 4.4 - 11.3 [facility] [place] Comment on above: Performed By: #### C BCDF #### [address] [place] [address] COMPREHENSIVE PANELon 2019 ALP [Catalytic activity/Vol] 79 U/L Normal 33 - 110 [facility] [place] Comment on above: Performed By: #### C MP #### [address] [place] [address] [address] ALT [Catalytic activity/Vol] 7 U/L Normal 7 - 45 [facility] [place] Comment on above: Result Comment: Melida ents treated with Sulfasalazine may generate falsely decreased results for ALT. Performed By: #### C MP #### [address] [place] [address] [address] AST [Catalytic activity/Vol] 13 U/L Normal 9 - 39 [facility] [place] Comment on above: Performed By: #### C MP #### [address] [place] [address] [place] [address] Bilirubin [Mass/Vol] 0.3 mg/dL Normal 0.0 - 1.2 [facility] [place] Comment on above: Performed By: #### C MP #### [address] [place] [address] [place] [address] Protein [Mass/Vol] 5.9 g/dL Low 6.4 - 8.2 [facility] [place] Comment on above: Performed By: #### C MP #### [address] [place] [address] [place] [address] Anion gap [Moles/Vol] 12 mmol/L Normal 10 - 20 [facility] [place] Comment on above: Performed By: #### C MP #### [address] [place] [address] [place] [address] Chloride [Moles/Vol] 106 mmol/L Normal 98 - 107 [facility] [place] Comment on above: Performed By: #### C MP #### [address] [place] [address] [place] [address] Potassium [Moles/Vol] 3.7 mmol/L Normal 3.5 - 5.3 [facility] [place] Comment on above: Performed By: #### C MP #### [address] [place] [address] [place] [address] Sodium [Moles/Vol] 137 mmol/L Normal 136 - 145 [facility] [place] Comment on above: Performed By: #### C MP #### [address] [place] [address] [place] [address] Calcium [Mass/Vol] 9.2 mg/dL Normal 8.6 - 10.3 [facility] [place] Comment on above: Performed By: #### C MP #### [address] [place] [address] [place] [address] Glucose [Mass/Vol] 95 mg/dL Normal 74 - 99 [facility] [place] Comment on above: Performed By: #### C MP #### [address] [place] [address] [place] [address] Urea nitrogen [Mass/Vol] 7 mg/dL Normal 6 - 23 [facility] [place] Comment on above: Performed By: #### C MP #### [address] [place] [address] [place] [address] Albumin [Mass/Vol] 3.4 g/dL Normal 3.4 - 5.0 [facility] [place] Comment on above: Performed By: #### C MP #### [address] [place] [address] [place] [address] Creatinine [Mass/Vol] 0.70 mg/dL Normal 0.50 - 1.05 [facility] [place] Comment on above: Performed By: #### C MP #### [address] [place] [address] [place] [address] GFR- AM. >60 Normal >60 [facility] [place] Comment on above: Result Comment: CALC ULATIONS OF ESTIMATED GFR ARE PERFORMED USING THE MDRD STUDY EQUATION FOR THE IDMS-TRACEABLE CREATININE METHODS. CLIN CHEM 2007;53:766-72 Performed By: #### C MP #### [address] [place] [address] [place] [address] GFR-NON AM. >60 Normal >60 [facility] [place] Comment on above: Performed By: #### C MP #### [address] [place] [address] [place] [address] HCO3 (Bld) [Moles/Vol] 23 mmol/L Normal 21 - 32 [facility] [place] Comment on above: Performed By: #### C MP #### [address] [place] [address] [place] [address] FERRITINon 04-24-2020 Ferritin [Mass/Vol] 8 ug/L Normal 8 - 150 [facility] [place] Comment on above: Performed By: #### F ERRI #### [address] [place] [address] IRON + TIBCon 04-24-2020 % SATURATION 14 % Low 25 - 45 [facility] [place] Comment on above: Performed By: #### I RONT #### [address] [place] [address] Iron [Mass/Vol] 65 ug/dL Normal 35 - 150 [facility] [place] Comment on above: Performed By: #### I RONT #### [address] [place] [address] TIBC 449 ug/dL High 240 - 445 [facility] Comment on above: Performed By: #### I RONT #### [address] [place] [address] Complete Blood Count + Diffe rentialon 12-25-2019 Basophils/100 WBC (Bld) 1.0 % 0.0 - 2.0 XB-CPHOL-ZHK [address] [place] Work Phone: Eosinophils (Bld) [#/Vol] 0.37 {x10E9/L} See Below BL-VCIQB-WTU [address] [place] Work Phone: Comment on above: Reference Range: 0.0 0 - 0.70 Eosinophils/100 WBC (Bld) 3.0 % 0.0 - 6.0 QU-JBNSY-NWT [address] [place] Work Phone: Erythrocyte distribution width (RBC) [Ratio] 13.4 % See Below MT-RLLSU-FEC [address] [place] Work Phone: Comment on above: Reference Range: 11. 5 - 14.5 Hematocrit (Bld) [Volume fraction] 41.8 % See Below AO-WSKJJ-BUE [address] [place] Work Phone: Comment on above: Reference Range: 36. 0 - 46.0 Hemoglobin (Bld) [Mass/Vol] 13.6 g/dL See Below YF-HDPCC-TKH [address] [place] Work Phone: Comment on above: Reference Range: 12. 0 - 16.0 Lymphocytes (Bld) [#/Vol] 2.52 {x10E9/L} See Below AY-DHKTT-DFZ [address] [place] Work Phone: Comment on above: Reference Range: 1.2 0 - 4.80 Lymphocytes/100 WBC (Bld) 20.2 % See Below HT-BNLKP-ZGR [address] [place] Work Phone: Comment on above: Reference Range: 13. 0 - 44.0 MCHC (RBC) [Mass/Vol] 32.5 g/dL See Below VS-QTYGW-QVX [address] [place] Work Phone: Comment on above: Reference Range: 32. 0 - 36.0 MCV (RBC) [Entitic vol] 95 fL 80 - 100 FY-RMZVZ-CWG [address] [place] Work Phone: Monocytes (Bld) [#/Vol] 0.58 {x10E9/L} See Below PH-FCLLB-JSQ [address] [place] Work Phone: Comment on above: Reference Range: 0.1 0 - 1.00 Monocytes/100 WBC (Bld) 4.6 % 2.0 - 10.0 LY-ALTDH-UZY [address] [place] Work Phone: Neutrophils/100 WBC (Bld) 70.6 % See Below MM-HIPTO-LSP [address] [place] Work Phone: Comment on above: Reference Range: 40. 0 - 80.0 Platelets (Bld) [#/Vol] 372 {x10E9/L} 150 - 450 EP-NPJGP-HCM [address] [place] Work Phone: RBC (Bld) [#/Vol] 4.40 {x10E12/L} See Below MG -OBGYN-MAC [address] [place] Work Phone: Comment on above: Reference Range: 4.0 0 - 5.20 WBC (Bld) [#/Vol] 0.0 {/100_WBC} 0.0-0.0 MG- OBGYN-MAC [address] [place] Work Phone: WBC (Bld) [#/Vol] 12.7 {x10E9/L} above high threshold 4.4 - 11.3 FK-GBYBZ-FJF [address] [place] Work Phone: Comment on above: SOURCE: Complete Blood Count + Differential 8.81 {x10E9/L} above high threshold See Below BZ-EVQJD-TOY [address] [place] Work Phone: Comment on above: Reference Range: 1.2 0 - 7.70 Complete Blood Count + Differential 0.6 % 0.0 - 0.9 RS-QIXOA-PKE [address] [place] Work Phone: Comment on above: Percent differential counts (%) should be interpreted in the context of the absolute cell counts (cells/L). Complete Blood Count + Differential 0.13 {x10E9/L} above high threshold See Below JY-PZSNF-EPZ [address] [place] Work Phone: Comment on above: Reference Range: 0.0 0 - 0.10 Cult, Urineon 12-25-2019 Bacteria identified Cx Nom (U) PATIENT: KIARA ASHLEY LOCATION: [id number] BILL#: [id number] : 89 AGE: SEX: F ORDERED BY: PARAS GUEVARA: URINE COLLECTED: 12/25/19 09:41ANTIBIOTICS AT [place].: RECEIVED : 12/25/19 17:06SITE: Clean Catch/Voided R E S U L T S URINE CULTURE,BACTERIAL FINAL 12/26/19 10:[address] S[address]-XAJYF-NIA [address] [place] Work Phone: Hematologyon 12-25-2019 ABO group Nom (Bld) A VC-AOVCZ-FLX [address] [place] Work Phone: Blood group antibody screen Ql Negative ME-WFLWL-UMY [address] [place] Work Phone: Rh immune globulin screen (Bld) [Interp] Positive VT-SAXGP-YUW [address] [place] Work Phone: Hepatitis B Surface Antigeno n 12-25-2019 Hepatitis B Surface Antigen NONREACTIVE See Below TX-ASCWR-HLC [address] [place] Work Phone: Comment on above: [...] Hepatitis C Antibody Test NON-REACTIVE See Below KM-BYKDJ-LBO [address] [place] Work Phone: Comment on above: SOURCE: Reference Ra nge: NONREACTIVE Patients receiving more than 5 mg/day of biotin may have interference in test results. A sample should be taken no sooner than eight hours after previous dose. Contact the testing laboratory for additional information. Metabolic Panelon 12-25-2019 ALP [Catalytic activity/Vol] 67 U/L 33 - 110 VE-FACNA-ZLZ [address] [place] Work Phone: Anion gap [Moles/Vol] 15 mmol/L 10 - 20 WP-LNVSE-HSX [address] [place] Work Phone: Bilirubin [Mass/Vol] 0.3 mg/dL 0.0 - 1.2 NX-YPFVQ-RRV [address] [place] Work Phone: Calcium [Mass/Vol] 9.6 mg/dL 8.6 - 10.6 TF-CKMLJ-RBJ [address] [place] Work Phone: Chloride [Moles/Vol] 104 mmol/L 98 - 107 AE-OMFEF-ZHI [address] [place] Work Phone: CO2 [Moles/Vol] 21 mmol/L 21 - 32 MG-OBGYN- MAC [address] [place] Work Phone: Creatinine [Mass/Vol] 0.69 mg/dL See Below GH-AKCEE-GGA [address] [place] Work Phone: Comment on above: Reference Range: 0.5 0 - 1.05 Glucose [Mass/Vol] 83 mg/dL 74 - 99 DI-EFWUZ-JGX [address] [place] Work Phone: Comment on above: SOURCE: Potassium [Moles/Vol] 4.1 mmol/L 3.5 - 5.3 IZ-WCEDL-DRS [address] [place] Work Phone: Protein [Mass/Vol] 6.2 g/dL below low threshold 6.4 - 8.2 YJ-EJFHW-RZR [address] [place] Work Phone: Sodium [Moles/Vol] 136 mmol/L 136 - 145 AK-PBLOY-BWI [address] [place] Work Phone: Urea nitrogen [Mass/Vol] 9 mg/dL 6 - 23 WU-TUNBN-KUA [address] [place] Work Phone: Otheron 12-25-2019 Albumin BCP dye [Mass/Vol] 3.9 g/dL 3.4 - 5.0 DC-DXNXW-QJG 1200 [place] Work Phone: ALT With P-5'-P [Catalytic activity/Vol] 8 U/L 7 - 45 MG-XNGZP-ZKB [address] [place] Work Phone: Comment on above: Patients treated wit h Sulfasalazine may generate falsely decreased results for ALT. AST With P-5'-P [Catalytic activity/Vol] 11 U/L 9 - 39 TX-RERYL-FVM [address] [place] Work Phone: NONE JV-BBGDF-TSP [address] [place] Work Phone: >60 >60 EG-ICMNQ-HDV [address] [place] Work Phone: Comment on above: CALCULATIONS OF MARÍA MATED GFR ARE PERFORMED USING THE MDRD STUDY EQUATION FOR THE IDMS-TRACEABLE CREATININE METHODS. CLIN CHEM 2007;53:766-72 SYPHILIS SCREENING WITH REFL EXon 12-25-2019 T. pallidum IgG+IgM IA Ql (S) NONREACTIVE See Below QO-WOZNY-XGX [address] [place] Work Phone: Comment on above: SOURCE: Reference Ra nge: NONREACTIVENo significant level of Treponema pallidum antibody detected. Repeat testing in 2 to 4 weeks may be considered if early infection or incubating syphilis infection is suspected. CBC AND DIFFERENTIALon 11-21 % AUTOMATED IMMATURE GRAN 0.9 % Normal 0.0 - 0.9 [facility] Comment on above: Result Comment: Perc ent differential counts (%) should be interpreted in the context of the absolute cell counts (cells/L). Performed By: #### C BCDF #### [address] [place] [address] Basophils (Bld) [#/Vol] 0.16 10*3/uL High 0.00 - 0.10 [facility] Comment on above: Performed By: #### C BCDF #### [address] [place] [address] Basophils/100 WBC (Bld) 1.2 % Normal 0.0 - 2.0 [facility] [place] Comment on above: Performed By: #### C BCDF #### [address] [place] [address] Eosinophils (Bld) [#/Vol] 0.80 10*3/uL High 0.00 - 0.70 [facility] Comment on above: Performed By: #### C BCDF #### [address] [place] [address] Eosinophils/100 WBC (Bld) 5.8 % Normal 0.0 - 6.0 [facility] [place] Comment on above: Performed By: #### C BCDF #### [address] [place] [address] Erythrocyte distribution width (RBC) [Ratio] 13.6 % Normal 11.5 - 14.5 [facility] Comment on above: Performed By: #### C BCDF #### [address] [place] [address] Hematocrit (Bld) [Volume fraction] 39.4 % Normal 36.0 - 46.0 [facility] Comment on above: Performed By: #### C BCDF #### [address] [place] [address] Hemoglobin (Bld) [Mass/Vol] 13.0 g/dL Normal 12.0 - 16.0 [facility] Comment on above: Performed By: #### C BCDF #### [address] [place] [address] Lymphocytes (Bld) [#/Vol] 2.24 10*3/uL Normal 1.20 - 4.80 [facility] Comment on above: Performed By: #### C BCDF #### [address] [place] [address] Lymphocytes/100 WBC (Bld) 16.3 % Normal 13.0 - 44.0 [facility] Comment on above: Performed By: #### C BCDF #### [address] [place] [address] MCHC (RBC) [Mass/Vol] 33.0 g/dL Normal 32.0 - 36.0 [facility] Comment on above: Performed By: #### C BCDF #### [address] [place] [address] MCV (RBC) [Entitic vol] 94 fL Normal 80 - 100 [facility] Comment on above: Performed By: #### C BCDF #### [address] [place] [address] Monocytes (Bld) [#/Vol] 0.83 10*3/uL Normal 0.10 - 1.00 [facility] Comment on above: Performed By: #### C BCDF #### [address] [place] [address] Monocytes/100 WBC (Bld) 6.0 % Normal 2.0 - 10.0 [facility] Comment on above: Performed By: #### C BCDF #### [address] [place] [address] Neutrophils (Bld) [#/Vol] 9.60 10*3/uL High 1.20 - 7.70 [facility] Comment on above: Performed By: #### C BCDF #### [address] [place] [address] Neutrophils/100 WBC (Bld) 69.8 % Normal 40.0 - 80.0 [facility] Comment on above: Performed By: #### C BCDF #### [address] [place] [address] Platelets (Bld) [#/Vol] 380 10*3/uL Normal 150 - 450 [facility] Comment on above: Performed By: #### C BCDF #### [address] [place] [address] RBC (Bld) [#/Vol] 4.21 x10E12/L Normal 4.00 - 5.20 [facility] Comment on above: Performed By: #### C BCDF #### [address] [place] [address] WBC (Bld) [#/Vol] 13.8 10*3/uL High 4.4 - 11.3 [facility] [place] Comment on above: Performed By: #### C BCDF #### [address] [place] [address] Complete Blood Count + Diffe martaon 11-14-2019 Basophils (Bld) [#/Vol] 0.05 {x10E9/L} See Below -Reproductiv e Endocrinology- [place] Work Phone: Comment on above: Reference Range: 0.0 0 - 0.10 Basophils/100 WBC (Bld) 0.4 % 0.0 - 2.0 MP-Reproductiv e Endocrinology- [place] Work Phone: Eosinophils (Bld) [#/Vol] 0.89 {x10E9/L} above high threshold See Below MP-Reproductiv e Endocrinology- [place] Work Phone: Comment on above: Reference Range: 0.0 0 - 0.70 Eosinophils/100 WBC (Bld) 7.3 % 0.0 - 6.0 MP-Reproductiv e Endocrinology- [place] Work Phone: Erythrocyte distribution width (RBC) [Ratio] 13.9 % See Below -Reproductiv e Endocrinology- [place] Work Phone: Comment on above: Reference Range: 11. 5 - 14.5 Hematocrit (Bld) [Volume fraction] 39.4 % See Below -Reproductiv e Endocrinology- [place] Work Phone: Comment on above: Reference Range: 36. 0 - 46.0 Hemoglobin (Bld) [Mass/Vol] 12.8 g/dL See Below -Reproductiv e Endocrinology- [place] Work Phone: Comment on above: Reference Range: 12. 0 - 16.0 Lymphocytes (Bld) [#/Vol] 2.13 {x10E9/L} See Below -Reproductiv e Endocrinology- [place] Work Phone: Comment on above: Reference Range: 1.2 0 - 4.80 Lymphocytes/100 WBC (Bld) 17.5 % See Below MP-Reproductiv e Endocrinology- [place] Work Phone: Comment on above: Reference Range: 13. 0 - 44.0 MCHC (RBC) [Mass/Vol] 32.5 g/dL See Below MP-Reproductiv e Endocrinology- [place] Work Phone: Comment on above: Reference Range: 32. 0 - 36.0 MCV (RBC) [Entitic vol] 95 fL 80 - 100 [facility]: Monocytes (Bld) [#/Vol] 0.60 {x10E9/L} See Below [facility] Work Phone: Comment on above: Reference Range: 0.1 0 - 1.00 Monocytes/100 WBC (Bld) 4.9 % 2.0 - 10.0 [facility] Work Phone: Neutrophils/100 WBC (Bld) 69.4 % See Below MP[facility] Work Phone: Comment on above: Reference Range: 40. 0 - 80.0 Platelets (Bld) [#/Vol] 423 {x10E9/L} 150 - 450 [facility] Work Phone: RBC (Bld) [#/Vol] 4.15 {x10E12/L} See Below [facility] Work Phone: Comment on above: Reference Range: 4.0 0 - 5.20 WBC (Bld) [#/Vol] 12.2 {x10E9/L} above high threshold 4.4 - 11.3 [facility] Work Phone: WBC (Bld) [#/Vol] 0.0 {/100_WBC} 0.0-0.0 MP- Reproductiv e Endocrinology- [place] Work Phone: Complete Blood Count + Differential 0.5 % 0.0 - 0.9 MP-Reproductiv e Endocrinology- [place] Work Phone: Comment on above: Percent differential counts (%) should be interpreted in the context of the absolute cell counts (cells/L). Complete Blood Count + Differential 8.42 {x10E9/L} above high threshold See Below MP-Reproductiv e Endocrinology- [place] Work Phone: Comment on above: Reference Range: 1.2 0 - 7.70 Metabolic Panelon 11-14-2019 ALP [Catalytic activity/Vol] 82 U/L 33 - 110 MP-Reproductiv e [facility]- [place] Work Phone: Anion gap [Moles/Vol] 19 mmol/L 10 - 20 MP-Reproductiv e [facility]- [place] Work Phone: Bilirubin [Mass/Vol] 0.4 mg/dL 0.0 - 1.2 MP-Reproductiv e [facility]- [place] Work Phone: Calcium [Mass/Vol] 9.5 mg/dL 8.6 - 10.6 MP-Reproductiv e [facility]- [place] Work Phone: Chloride [Moles/Vol] 100 mmol/L 98 - 107 MP-Reproductiv e Endocr[facility]- [place] Work Phone: CO2 [Moles/Vol] 20 mmol/L below low threshold 21 - 32 MP-Reproductiv e Endocr[facility]- [place] Work Phone: Creatinine [Mass/Vol] 0.80 mg/dL See Below MP-Reproductiv e [facility]ocr[facility]- [place] Work Phone: Comment on above: Reference Range: 0.5 0 - 1.05 Glucose [Mass/Vol] 86 mg/dL 74 - 99 MP-Reproductiv e Endocrinology- [place] Work Phone: Potassium [Moles/Vol] 4.3 mmol/L 3.5 - 5.3 MP-Reproductiv e Endocr[facility]- [place] Work Phone: Protein [Mass/Vol] 5.8 g/dL below low threshold 6.4 - 8.2 MP-Reproductiv e Endocrinology- [place] Work Phone: Sodium [Moles/Vol] 135 mmol/L below low threshold 136 - 145 MP-Reproductiv e Endocrinology- [place] Work Phone: Urea nitrogen [Mass/Vol] 10 mg/dL 6 - 23 MP-Reproductiv e [facility] Work Phone: [facility]on 11-14-2019 Albumin BCP dye [Mass/Vol] 3.5 g/dL 3.4 - 5.0 MP-Reproductiv e [facility] Work Phone: ALT With P-5'-P [Catalytic activity/Vol] 17 U/L 7 - 45 MP-Reproductiv e [facility] Work Phone: Comment on above: Patients treated wit h Sulfasalazine may generate falsely decreased results for ALT. AST With P-5'-P [Catalytic activity/Vol] 22 U/L 9 - 39 MP-Reproductiv e [facility] Work Phone: >60 >60 -Reproductiv [facility] Work Phone: Comment on above: CALCULATIONS OF MARÍA MATED GFR ARE PERFORMED USING THE MDRD STUDY EQUATION FOR THE IDMS-TRACEABLE CREATININE METHODS. CLIN CHEM 2007;53:766-72 CBCon 11-09-2019 Erythrocyte distribution width (RBC) [Ratio] 13.7 % See Below HI-BAFJV-Kbmfu n 310 IV[facility] Work Phone: Comment on above: Performed By: #### L H #### [facility] [address] [place] [address] Reference Range: 11. 5 - 14.5 Hematocrit (Bld) [Volume fraction] 41.9 % See Below AW-UFUFQ-Jrqsg n 310 IV[facility] Work Phone: Comment on above: Performed By: #### L H #### [facility] [address] [place] [address] Reference Range: 36. 0 - 46.0 Hemoglobin (Bld) [Mass/Vol] 14.0 g/dL See Below WC-WRSXZ-Pjhwo n 310 IVF Work Phone: Comment on above: Performed By: #### L H #### [facility] [address] [place] [address] Reference Range: 12. 0 - 16.0 MCHC (RBC) [Mass/Vol] 33.4 g/dL See Below UP-RODPI-Qsxbb n 310 IV[facility] Work Phone: Comment on above: Performed By: #### L H #### [facility] [address] [place] [address] Reference Range: 32. 0 - 36.0 MCV (RBC) [Entitic vol] 94 fL 80 - 100 LM-YADYX-Fjutv n 310 IVF Work Phone: Comment on above: Performed By: #### L H #### [facility] [address] [place] [id number] Platelets (Bld) [#/Vol] 411 10*3/uL Normal 150 - 450 [facility] Comment on above: Performed By: #### L H #### [facility] [address] [place] [id number] RBC (Bld) [#/Vol] 4.44 x10E12/L Normal 4.00 - 5.20 [facility] Comment on above: Performed By: #### L H #### [facility] [address] [place] [id number] WBC (Bld) [#/Vol] 12.4 10*3/uL High 4.4 - 11.3 [facility] Comment on above: Performed By: #### L H #### [facility] [address] [place] [id number] COMPREHENSIVE PANELon 2018 Albumin [Mass/Vol] 3.8 g/dL Normal 3.4 - 5.0 [facility] Comment on above: Performed By: #### L H #### [facility] [address] [place] [address] ALP [Catalytic activity/Vol] 51 U/L 33 - 110 YA-ECCUB-Ffyto n 310 IVF Work Phone: Comment on above: Performed By: #### L H #### [facility] [address] [place] [address] ALT [Catalytic activity/Vol] 12 U/L Normal 7 - 45 [facility] Comment on above: Result Comment: Melida ents treated with Sulfasalazine may generate falsely decreased results for ALT. Performed By: #### L H #### [facility] [address] [place] [address] Anion gap [Moles/Vol] 13 mmol/L 10 - 20 KV-PEPOO-Gbguj n 310 IVF Work Phone: Comment on above: Performed By: #### L H #### [facility] [address] [place] [id number] AST [Catalytic activity/Vol] 12 U/L Normal 9 - 39 [facility] Comment on above: Performed By: #### L H #### [facility] [address] [place] [id number] Bilirubin [Mass/Vol] 0.4 mg/dL 0.0 - 1.2 PR-CVUYJ-Jfdgi n 310 IVF Work Phone: Comment on above: Performed By: #### L H #### [facility] [address] [place] [id number] Calcium [Mass/Vol] 9.3 mg/dL 8.6 - 10.3 JO-TWJOU-Sbpry n 310 IVF Work Phone: Comment on above: Performed By: #### L H #### [facility] [address] [place] [id number] Chloride [Moles/Vol] 102 mmol/L 98 - 107 GH-SASHL-Sjtlb n 310 IVF Work Phone: Comment on above: Performed By: #### L H #### [facility] [address] [place] [id number] Creatinine [Mass/Vol] 0.89 mg/dL See Below XD-NUJBH-Evlqc n 310 IVF Work Phone: Comment on above: Performed By: #### L H #### [facility] [address] [place] [id number] Reference Range: 0.5 0 - 1.05 GFR- AM. >60 Normal >60 [facility] Comment on above: Result Comment: CALC ULATIONS OF ESTIMATED GFR ARE PERFORMED USING THE MDRD STUDY EQUATION FOR THE IDMS-TRACEABLE CREATININE METHODS. CLIN CHEM 2007;53:766-72 Performed By: #### L H #### [facility] [address] [place] [address] GFR-NON AM. >60 Normal >60 [facility] Comment on above: Performed By: #### L H #### [facility] [address] [place] [address] Glucose [Mass/Vol] 74 mg/dL 74 - 99 NU-XOGGV-Qrmtr n 310 IVF Work Phone: Comment on above: Performed By: #### L H #### [facility] [address] [place] [address] HCO3 (Bld) [Moles/Vol] 25 mmol/L Normal 21 - 32 [facility] Comment on above: Performed By: #### L H #### [facility] [address] [place] [address] Potassium [Moles/Vol] 4.1 mmol/L 3.5 - 5.3 NM-YKJKT-Aqdbv n 310 IVF Work Phone: Comment on above: Performed By: #### L H #### [facility] [address] [place] [id number] Protein [Mass/Vol] 6.0 g/dL below low threshold 6.4 - 8.2 OE-HMEEC-Dixto n 310 IVF Work Phone: Comment on above: Performed By: #### L H #### [facility] [address] [place] [id number] Sodium [Moles/Vol] 136 mmol/L 136 - 145 ZQ-ZFHMT-Lplaq n 310 IVF Work Phone: Comment on above: Performed By: #### L H #### [facility] [address] [place] [address] Urea nitrogen [Mass/Vol] 11 mg/dL 6 - 23 RV-MCCGI-Tjzok n 310 IVF Work Phone: Comment on above: Performed By: #### L H #### [facility] [address] [place] [address] HCG, Beta Quantitativeon HCG.beta subunit Qn 7102 {mIU/mL} Abnormal CT-EMHZJ-Dxnla n 310 IVF Work Phone: Comment on [...] HCG measurement is performed using the [employer] Access Immunoassay which detects intact HCG and free beta HCG subunit. This test is not indicated for use as a tumor marker. HCG testing is performed using a different test methodology at [facility] than other [facility]. Direct result comparison should only be made within the same method. REF VALUESNON FEMALE <5MALES <5 HCG,BETA-QUANTITATIVEon - HCG,BETA-QUANTITA TIVE 7102 mIU/mL [facility] Comment on above: Result Comment: Low- level [...] HCG measurement is performed using the [employer] [place] Access Immunoassay which detects intact HCG and free beta HCG subunit. This test is not indicated for use as a tumor marker. HCG testing is performed using a different test methodology at [facility] than other [facility]. Direct result comparison should only be made within the same method. REF VALUES NON FEMALE <5 MALES <5 Performed By: #### L H #### [facility] [address] [place] [address] Hematologyon 11-09-2019 Platelets (Bld) [#/Vol] 411 {x10E9/L} 150 - 450 DO-JSHKK-Dyyya n 310 IVF Work Phone: RBC (Bld) [#/Vol] 4.44 {x10E12/L} See Below MG -OBGYN-Risma n 310 IVF Work Phone: Comment on above: Reference Range: 4.0 0 - 5.20 WBC (Bld) [#/Vol] 12.4 {x10E9/L} above high threshold 4.4 - 11.3 YE-VFUSK-Bnxjw n 310 IVF Work Phone: Metabolic Panelon 11-09-2019 CO2 [Moles/Vol] 25 mmol/L 21 - 32 MG-OBGYN- Risma n 310 IVF Work Phone: Otheron 11-09-2019 Albumin BCP dye [Mass/Vol] 3.8 g/dL 3.4 - 5.0 JY-DMMVK-Sbjua n 310 IVF Work Phone: ALT With P-5'-P [Catalytic activity/Vol] 12 U/L 7 - 45 IG-WJRLA-Zavvk n 310 IVF Work Phone: Comment on above: Patients treated wit h Sulfasalazine may generate falsely decreased results for ALT. AST With P-5'-P [Catalytic activity/Vol] 12 U/L 9 - 39 MD-IPNOD-Uzaew n 310 IVF Work Phone: >60 >60 TM-ILJBR-Ebokh n 310 IVF Work Phone: Comment on [...] performed using a different test methodology at [facility] than other [facility]. Direct result comparison should only be made within the same method. REF VALUESNON FEMALE <5MALES <5 HCG,BETA-QUANTITATIVEon 10-15 HCG,BETA-QUANTITA TIVE 240 mIU/mL [facility] Comment on above: Result Comment: Low- level [...] HCG measurement is performed using the [employer] Access Immunoassay which detects intact HCG and free beta HCG subunit. This test is not indicated for use as a tumor marker. HCG testing is performed using a different test methodology at [facility] than other [facility]. Direct result comparison should only be made within the same method. REF VALUES NON FEMALE <5 MALES <5 Performed By: #### E STRA #### [facility] [address] [place] [address] ESTRADIOLon 10-14-2019 ESTRADIOL 1871 pg/mL Normal [facility] Comment on above: Result Comment: Estr adiol measurement is performed using the [employer] Access Immunoassay. Estradiol testing is performed using a different test methodology at [facility] than other [facility]. Direct result comparison should only be made within the same method. REF VALUES FOLLICULAR PHASE 20-144 MID CYCLE 64-357 LUTEAL PHASE 56-214 POSTMENOPAUSE < 32 PREPUBERTY < 20 MALE 10-18Y < 20 ADULT MALE < 40 Performed By: #### E STRA #### [facility] [address] [place] [address] Estradiol, Serumon 9 E2 [Mass/Vol] 1871 pg/mL MG-OBGYN-Ri sma n 310 IVF Work Phone: Comment on above: Estradiol measuremen t is performed using the [employer] Access Immunoassay. Estradiol testing is performed using a different test methodology at [facility] than other [facility]. Direct result comparison should only be made within the same method.REF VALUESFOLLICULAR PHASE 20-144MID CYCLE 64-357LUTEAL PHASE 56-214POSTMENOPAUSE < 32PREPUBERTY < 20MALE 10-18Y < 20ADULT MALE < 40 PROGESTERONEon 10-14-2019 PROGESTERONE 1.0 ng/mL Normal [facility] Comment on above: Result Comment: Prog esterone is performed using the [employer] Access Immunoassay. Progesterone testing is performed using a different test methodology at [facility] than other [facility]. Direct result comparison should only be made within the same method. REF VALUES MALE <0.2-0.8 FOLLICULAR PHASE <0.2-1.5 LUTEAL PHASE 7.4-15.4 POSTMENOPAUSAL <0.2-0.2 1ST TRIMESTER 12.0-84.0 2ND TRIMESTER 10.2-58.8 3RD TRIMESTER 46.5-160 Performed By: #### E STRA #### [facility] [address] [place] [address] Progesterone, Serumon 2018 Progesterone [Mass/Vol] 1.0 ng/mL JA-SAAWO-Bucwz n 310 IVF Work Phone: Comment on above: Progesterone is perf ormed using the [employer] Access Immunoassay. Progesterone testing is performed using a different test methodology at [facility] than other [facility]. Direct result comparison should only be made within the same method.REF VALUESMALE <0.2-0.8 FOLLICULAR PHASE <0.2-1.5 LUTEAL PHASE 7.4-15.4 POSTMENOPAUSAL <0.2-0.2 1ST TRIMESTER 12.0-84.0 2ND TRIMESTER 10.2-58.8 3RD TRIMESTER 46.5-160 ESTRADIOLon 10-11-2019 ESTRADIOL 284 pg/mL Normal [facility] Comment on above: Result Comment: Estr adiol measurement is performed using the [employer] Access Immunoassay. Estradiol testing is performed using a different test methodology at [facility] than other [facility]. Direct result comparison should only be made within the same method. REF VALUES FOLLICULAR PHASE 20-144 MID CYCLE 64-357 LUTEAL PHASE 56-214 POSTMENOPAUSE < 32 PREPUBERTY < 20 MALE 10-18Y < 20 ADULT MALE < 40 Performed By: #### E STRA #### [facility] [address] [place] [address] Estradiol, Serumon 201 9 E2 [Mass/Vol] 284 pg/mL MG-OBGYN-Ri [facility] n 310 IVF Work Phone: Comment on above: Estradiol measuremen t is performed using the [employer] Access Immunoassay. Estradiol testing is performed using a different test methodology at [facility] than other [facility]. Direct result comparison should only be made within the same method.REF VALUESFOLLICULAR PHASE 20-144MID CYCLE 64-357LUTEAL PHASE 56-214POSTMENOPAUSE < 32PREPUBERTY < 20MALE 10-18Y < 20ADULT MALE < 40 ESTRADIOLon 10-05-2019 ESTRADIOL 129 pg/mL Normal [facility] Comment on above: Result Comment: Estr adiol measurement is performed using the [employer] Access Immunoassay. Estradiol testing is performed using a different test methodology at [facility] than other [facility]. Direct result comparison should only be made within the same method. REF VALUES FOLLICULAR PHASE 20-144 MID CYCLE 64-357 LUTEAL PHASE 56-214 POSTMENOPAUSE < 32 PREPUBERTY < 20 MALE 10-18Y < 20 ADULT MALE < 40 Performed By: #### E STRA #### [facility] [address] [place] [address] Estradiol, Serumon 9 E2 [Mass/Vol] 129 pg/mL MG-OBGYN-Ri [facility] n 310 IVF Work Phone: Comment on above: Estradiol measuremen t is performed using the [employer] Access Immunoassay. Estradiol testing is performed using a different test methodology at [facility] than other [facility]. Direct result comparison should only be made within the same method.REF VALUESFOLLICULAR PHASE 20-144MID CYCLE 64-357LUTEAL PHASE 56-214POSTMENOPAUSE < 32PREPUBERTY < 20MALE 10-18Y < 20ADULT MALE < 40 PROGESTERONEon 10-05-2019 PROGESTERONE 0.2 ng/mL Normal [facility] Comment on above: Result Comment: Prog esterone is performed using the [employer] Access Immunoassay. Progesterone testing is performed using a different test methodology at [facility] than other [facility]. Direct result comparison should only be made within the same method. REF VALUES MALE <0.2-0.8 FOLLICULAR PHASE <0.2-1.5 LUTEAL PHASE 7.4-15.4 POSTMENOPAUSAL <0.2-0.2 1ST TRIMESTER 12.0-84.0 2ND TRIMESTER 10.2-58.8 3RD TRIMESTER 46.5-160 Performed By: #### E STRA #### [facility] [address] [place] [address] Progesterone, Serumon 2018 Progesterone [Mass/Vol] 0.2 ng/mL EP-OUUAA-Ouzhd n 310 IVF Work Phone: Comment on above: Progesterone is perf ormed using the [employer] Access Immunoassay. Progesterone testing is performed using a different test methodology at [facility] than other [facility]. Direct result comparison should only be made within the same method.REF VALUESMALE <0.2-0.8 FOLLICULAR PHASE <0.2-1.5 LUTEAL PHASE 7.4-15.4 POSTMENOPAUSAL <0.2-0.2 1ST TRIMESTER 12.0-84.0 2ND TRIMESTER 10.2-58.8 3RD TRIMESTER 46.5-160 ESTRADIOLon 10-02-2019 ESTRADIOL 357 pg/mL Normal [facility] Comment on above: Result Comment: Estr adiol measurement is performed using the [employer] Access Immunoassay. Estradiol testing is performed using a different test methodology at [facility] than other [facility]. Direct result comparison should only be made within the same method. REF VALUES FOLLICULAR PHASE 20-144 MID CYCLE 64-357 LUTEAL PHASE 56-214 POSTMENOPAUSE < 32 PREPUBERTY < 20 MALE 10-18Y < 20 ADULT MALE < 40 Performed By: #### E STRA #### [facility] [address] [place] [address] Estradiol, Serumon 9 E2 [Mass/Vol] 357 pg/mL MG-OBGYN-Cr ock er 206A IVF Work Phone: Comment on above: Estradiol measuremen t is performed using the [employer] Access Immunoassay. Estradiol testing is performed using a different test methodology at [facility] than other [facility]. Direct result comparison should only be made within the same method.REF VALUESFOLLICULAR PHASE 20-144MID CYCLE 64-357LUTEAL PHASE 56-214POSTMENOPAUSE < 32PREPUBERTY < 20MALE 10-18Y < 20ADULT MALE < 40 LUTEINIZING HORMONEon 2018 LUTEINIZING HORMONE 14.7 IU/L Normal [facility] Comment on above: Result Comment: Lute inizing Hormone [LH] is performed using the [employer] Access Immunoassay. LH testing is performed using a different test methodology at [facility] than other [facility]. Direct result comparison should only be made within the same method. REF VALUES FOLLICULAR PHASE 1.5-10.0 MID-CYCLE 13.0-72.0 LUTEAL PHASE 0.5-13.0 MENOPAUSE 15.0-65.0 PREPUBERTY 0- 3.0 CHILDREN 0- 6.0 ADULT MALE 1.0- 9.0 Performed By: #### E STRA #### [facility] [address] [place] [address] Luteinizing Hormone, Serumon 10-02-2019 Lutropin Qn 14.7 {IU/L} WA-NRMVD-Bva ck er 206A IVF Work Phone: Comment on above: Luteinizing Hormone [LH] is performed using the [employer] Access Immunoassay. LH testing is performed using a different test methodology at [facility] than other [facility]. Direct result comparison should only be made within the same method.REF VALUESFOLLICULAR PHASE 1.5-10.0MID-CYCLE 13.0-72.0LUTEAL PHASE 0.5-13.0MENOPAUSE 15.0-65.0PREPUBERTY 0- 3.0CHILDREN 0- 6.0ADULT MALE 1.0- 9.0 PROGESTERONEon 10-02-2019 PROGESTERONE 0.1 ng/mL Normal [facility] Comment on above: Result Comment: Prog esterone is performed using the [employer] Access Immunoassay. Progesterone testing is performed using a different test methodology at [facility] than other [facility]. Direct result comparison should only be made within the same method. REF VALUES MALE <0.2-0.8 FOLLICULAR PHASE <0.2-1.5 LUTEAL PHASE 7.4-15.4 POSTMENOPAUSAL <0.2-0.2 1ST TRIMESTER 12.0-84.0 2ND TRIMESTER 10.2-58.8 3RD TRIMESTER 46.5-160 Performed By: #### E STRA #### [facility] [address] [place] [address] Progesterone, Serumon 2018 Progesterone [Mass/Vol] 0.1 ng/mL GK-DFUJF-Zytdv er 206A IVF Work Phone: Comment on above: Progesterone is perf ormed using the [employer] Access Immunoassay. Progesterone testing is performed using a different test methodology at [facility] than other [facility]. Direct result comparison should only be made within the same method.REF VALUESMALE <0.2-0.8 FOLLICULAR PHASE <0.2-1.5 LUTEAL PHASE 7.4-15.4 POSTMENOPAUSAL <0.2-0.2 1ST TRIMESTER 12.0-84.0 2ND TRIMESTER 10.2-58.8 3RD TRIMESTER 46.5-160 HCG,BETA-QUANTITATIVEon 07-17 HCG,BETA-QUANTITA TIVE 10 mIU/mL [facility] Comment on above: Result Comment: Low- level [...] HCG measurement is performed using the [employer] Access Immunoassay which detects intact HCG and free beta HCG subunit. This test is not indicated for use as a tumor marker. HCG testing is performed using a different test methodology at [facility] than other [facility]. Direct result comparison should only be made within the same method. REF VALUES NON FEMALE <5 MALES <5 Performed By: #### L H #### [facility] [address] [place] [address] LUTEINIZING HORMONEon 2018 LUTEINIZING HORMONE 57.0 IU/L Normal [facility] Comment on above: Result Comment: Lute inizing Hormone [LH] is performed using the [employer] Access Immunoassay. LH testing is performed using a different test methodology at [facility] than other [facility]. Direct result comparison should only be made within the same method. REF VALUES FOLLICULAR PHASE 1.5-10.0 MID-CYCLE 13.0-72.0 LUTEAL PHASE 0.5-13.0 MENOPAUSE 15.0-65.0 PREPUBERTY 0- 3.0 CHILDREN 0- 6.0 ADULT MALE 1.0- 9.0 Performed By: #### E STRA #### [facility] [address] [place] [address] PROGESTERONEon 08-13-2019 PROGESTERONE 6.7 ng/mL Normal [facility] Comment on above: Result Comment: Prog esterone is performed using the [employer] Access Immunoassay. Progesterone testing is performed using a different test methodology at [facility] than other [facility]. Direct result comparison should only be made within the same method. REF VALUES MALE <0.2-0.8 FOLLICULAR PHASE <0.2-1.5 LUTEAL PHASE 7.4-15.4 POSTMENOPAUSAL <0.2-0.2 1ST TRIMESTER 12.0-84.0 2ND TRIMESTER 10.2-58.8 3RD TRIMESTER 46.5-160 Performed By: #### L H #### [facility] [address] [place] [address] ESTRADIOLon 08-12-2019 ESTRADIOL 1380 pg/mL Normal [facility] Comment on above: Result Comment: Estr adiol measurement is performed using the [employer] Access Immunoassay. Estradiol testing is performed using a different test methodology at [facility] than [facility]. Direct result comparison should only be made within the same method. REF VALUES FOLLICULAR PHASE 20-144 MID CYCLE 64-357 LUTEAL PHASE 56-214 POSTMENOPAUSE < 32 PREPUBERTY < 20 MALE 10-18Y < 20 ADULT MALE < 40 Performed By: #### L H #### [facility] [address] [place] [address] PROGESTERONEon 08-12-2019 PROGESTERONE 1.7 ng/mL Normal [facility] Comment on above: Result Comment: Prog esterone is performed using the [employer] Access Immunoassay. Progesterone testing is performed using a different test methodology at [facility] than other [facility]. Direct result comparison should only be made within the same method. REF VALUES MALE <0.2-0.8 FOLLICULAR PHASE <0.2-1.5 LUTEAL PHASE 7.4-15.4 POSTMENOPAUSAL <0.2-0.2 1ST TRIMESTER 12.0-84.0 2ND TRIMESTER 10.2-58.8 3RD TRIMESTER 46.5-160 Performed By: #### L H #### [facility] [address] [place] [address] ESTRADIOLon 08-11-2019 ESTRADIOL 874 pg/mL Normal [facility] Comment on above: Result Comment: Estr adiol measurement is performed using the [employer] Access Immunoassay. Estradiol testing is performed using a different test methodology at [facility] than other [facility]. Direct result comparison should only be made within the same method. REF VALUES FOLLICULAR PHASE 20-144 MID CYCLE 64-357 LUTEAL PHASE 56-214 POSTMENOPAUSE < 32 PREPUBERTY < 20 MALE 10-18Y < 20 ADULT MALE < 40 Performed By: #### L H #### [facility] [address] [place] [address] PROGESTERONEon 08-11-2019 PROGESTERONE 1.2 ng/mL Normal [facility] Comment on above: Result Comment: Prog esterone is performed using the [employer] Access Immunoassay. Progesterone testing is performed using a different test methodology at [facility] than other [facility]. Direct result comparison should only be made within the same method. REF VALUES MALE <0.2-0.8 FOLLICULAR PHASE <0.2-1.5 LUTEAL PHASE 7.4-15.4 POSTMENOPAUSAL <0.2-0.2 1ST TRIMESTER 12.0-84.0 2ND TRIMESTER 10.2-58.8 3RD TRIMESTER 46.5-160 Performed By: #### L H #### [facility] [address] [place] [address] ESTRADIOLon 08-09-2019 ESTRADIOL 385 pg/mL Normal [facility] Comment on above: Result Comment: Estr adiol measurement is performed using the [employer] Access Immunoassay. Estradiol testing is performed using a different test methodology at [facility] than [facility]. Direct result comparison should only be made within the same method. REF VALUES FOLLICULAR PHASE 20-144 MID CYCLE 64-357 LUTEAL PHASE 56-214 POSTMENOPAUSE < 32 PREPUBERTY < 20 MALE 10-18Y < 20 ADULT MALE < 40 Performed By: #### L H #### [facility] [address] [place] [address] ESTRADIOLon 08-07-2019 ESTRADIOL 80 pg/mL Normal [facility] Comment on above: Result Comment: Estr adiol measurement is performed using the [employer] Access Immunoassay. Estradiol testing is performed using a different test methodology at [facility] than [facility]. Direct result comparison should only be made within the same method. REF VALUES FOLLICULAR PHASE 20-144 MID CYCLE 64-357 LUTEAL PHASE 56-214 POSTMENOPAUSE < 32 PREPUBERTY < 20 MALE 10-18Y < 20 ADULT MALE < 40 Performed By: #### L H #### [facility] [address] [place] [address] ESTRADIOLon 08-04-2019 ESTRADIOL 58 pg/mL Normal [facility] Comment on above: Result Comment: Estr adiol measurement is performed using the Jose [place] Access Immunoassay. Estradiol testing is performed using a different test methodology at [facility] than [facility]. Direct result comparison should only be made within the same method. REF VALUES FOLLICULAR PHASE 20-144 MID CYCLE 64-357 LUTEAL PHASE 56-214 POSTMENOPAUSE < 32 PREPUBERTY < 20 MALE 10-18Y < 20 ADULT MALE < 40 Performed By: #### L H #### [facility] [address] [place] [address] ESTRADIOLon 07-07-2019 ESTRADIOL 110 pg/mL Normal [facility] Comment on above: Result Comment: Estr adiol measurement is performed using the Jose [place] Access Immunoassay. Estradiol testing is performed using a different test methodology at [facility] than [facility]. Direct result comparison should only be made within the same method. REF VALUES FOLLICULAR PHASE 20-144 MID CYCLE 64-357 LUTEAL PHASE 56-214 POSTMENOPAUSE < 32 PREPUBERTY < 20 MALE 10-18Y < 20 ADULT MALE < 40 Performed By: #### L H #### [facility] [address] [place] [address] NR MRI SELLA WO/Won 05-31-20 19 NR MRI SELLA WO/W Patient Name: KIARA ASHLEY STUDY: NR MRI SELLA WO/W; 05/31/2019 2:00 pm INDICATION: History of 7 mm microadenoma 2008. COMPARISON: None. ACCESSION NUMBER(S): [id number] ORDERING CLINICIAN: SHAHLA HEALY TECHNIQUE: High resolution [...] Electronically signed by: IRENE BLAKE PHYSICIAN Normal [facility] ESTRADIOLon 05-05-2019 ESTRADIOL 217 pg/mL Normal [facility] Comment on above: Result Comment: Estr adiol measurement is performed using the Jose [place] Access Immunoassay. Estradiol testing is performed using a different test methodology at [facility] than other [facility]. Direct result comparison should only be made within the same method. REF VALUES FOLLICULAR PHASE 20-144 MID CYCLE 64-357 LUTEAL PHASE 56-214 POSTMENOPAUSE < 32 PREPUBERTY < 20 MALE 10-18Y < 20 ADULT MALE < 40 Performed By: #### E STRA #### [facility] [address] [place] [address] LUTEINIZING HORMONEon 2018 LUTEINIZING HORMONE 4.4 IU/L Normal [facility] Comment on above: Result Comment: Lute inizing Hormone [LH] is performed using the Jose [place] Access Immunoassay. LH testing is performed using a different test methodology at [facility] than other [facility]. Direct result comparison should only be made within the same method. REF VALUES FOLLICULAR PHASE 1.5-10.0 MID-CYCLE 13.0-72.0 LUTEAL PHASE 0.5-13.0 MENOPAUSE 15.0-65.0 PREPUBERTY 0- 3.0 CHILDREN 0- 6.0 ADULT MALE 1.0- 9.0 Performed By: #### L H #### [facility] [address] [place] [address] ESTRADIOLon 04-11-2019 ESTRADIOL 118 pg/mL Normal [facility] Comment on above: Result Comment: Estr adiol measurement is performed using the Jose [place] Access Immunoassay. Estradiol testing is performed using a different test methodology at [facility] than [facility]. Direct result comparison should only be made within the same method. REF VALUES FOLLICULAR PHASE 20-144 MID CYCLE 64-357 LUTEAL PHASE 56-214 POSTMENOPAUSE < 32 PREPUBERTY < 20 MALE 10-18Y < 20 ADULT MALE < 40 Performed By: #### E STRA #### [facility] [address] [place] [address] LUTEINIZING HORMONEon 2018 LUTEINIZING HORMONE 7.7 IU/L Normal [facility] Comment on above: Result Comment: Lute inizing Hormone [LH] is performed using the Jose [place] Access Immunoassay. LH testing is performed using a different test methodology at [facility] than [facility]. Direct result comparison should only be made within the same method. REF VALUES FOLLICULAR PHASE 1.5-10.0 MID-CYCLE 13.0-72.0 LUTEAL PHASE 0.5-13.0 MENOPAUSE 15.0-65.0 PREPUBERTY 0- 3.0 CHILDREN 0- 6.0 ADULT MALE 1.0- 9.0 Performed By: #### L H #### [facility] [address] [place] [address] PROGESTERONEon 04-11-2019 PROGESTERONE 0.1 ng/mL Normal [facility] Comment on above: Result Comment: Prog esterone is performed using the Jose [place] Access Immunoassay. Progesterone testing is performed using a different test methodology at [facility] than other [facility]. Direct result comparison should only be made within the same method. REF VALUES MALE <0.2-0.8 FOLLICULAR PHASE <0.2-1.5 LUTEAL PHASE 7.4-15.4 POSTMENOPAUSAL <0.2-0.2 1ST TRIMESTER 12.0-84.0 2ND TRIMESTER 10.2-58.8 3RD TRIMESTER 46.5-160 Performed By: #### P SVEN #### [facility] [address] [place] [address] ESTRADIOLon 03-17-2019 ESTRADIOL 120 pg/mL Normal [facility] Comment on above: Result Comment: Estr adiol measurement is performed using the Jose [place] Access Immunoassay. Estradiol testing is performed using a different test methodology at [facility] than [facility]. Direct result comparison should only be made within the same method. REF VALUES FOLLICULAR PHASE 20-144 MID CYCLE 64-357 LUTEAL PHASE 56-214 POSTMENOPAUSE < 32 PREPUBERTY < 20 MALE 10-18Y < 20 ADULT MALE < 40 Performed By: #### E STRA #### [facility] [address] [place] [address] LUTEINIZING HORMONEon 2018 LUTEINIZING HORMONE 6.8 IU/L Normal [facility] Comment on above: Result Comment: Lute inizing Hormone [LH] is performed using the Jose [place] Access Immunoassay. LH testing is performed using a different test methodology at [facility] than [facility]. Direct result comparison should only be made within the same method. REF VALUES FOLLICULAR PHASE 1.5-10.0 MID-CYCLE 13.0-72.0 LUTEAL PHASE 0.5-13.0 MENOPAUSE 15.0-65.0 PREPUBERTY 0- 3.0 CHILDREN 0- 6.0 ADULT MALE 1.0- 9.0 Performed By: #### L H #### [facility] [address] [place] [address] ESTRADIOLon 02-20-2019 ESTRADIOL 521 pg/mL Normal [facility] Comment on above: Result Comment: Estr adiol measurement is performed using the Jose [place] Access Immunoassay. Estradiol testing is performed using a different test methodology at [facility] than other [facility]. Direct result comparison should only be made within the same method. REF VALUES FOLLICULAR PHASE 20-144 MID CYCLE 64-357 LUTEAL PHASE 56-214 POSTMENOPAUSE < 32 PREPUBERTY < 20 MALE 10-18Y < 20 ADULT MALE < 40 Performed By: #### E STRA #### [facility] [address] [place] [address] LUTEINIZING HORMONEon 2018 LUTEINIZING HORMONE 3.5 IU/L Normal [facility] Comment on above: Result Comment: Lute inizing Hormone [LH] is performed using the Jose [place] Access Immunoassay. LH testing is performed using a different test methodology at [facility] than other [facility]. Direct result comparison should only be made within the same method. REF VALUES FOLLICULAR PHASE 1.5-10.0 MID-CYCLE 13.0-72.0 LUTEAL PHASE 0.5-13.0 MENOPAUSE 15.0-65.0 PREPUBERTY 0- 3.0 CHILDREN 0- 6.0 ADULT MALE 1.0- 9.0 Performed By: #### L H #### [facility] [address] [place] [address] Vital Signs Date Time Vital Sign Value Performing Clinician Modesto golden 12-27-2023 10:57-0500 Body mass index (BMI) [Ratio] 34.84 kg/m2 Bere JOHNSON Work Phone: [facility] 12-27-2023 10:57-0500 Body weight 83.64 kg Bere JOHNSON Work Phone: [facility] 12-27-2023 10:57-0500 Diastolic blood pressure 68 mm[Hg] Bere JOHNSON Work Phone: [facility] 12-27-2023 10:57-0500 Systolic blood pressure 110 mm[Hg] Bere JOHNSON Work Phone: [facility] 02-27-2023 11:35-0400 Body mass index (BMI) [Ratio] 29.26 kg/m2 Evelyn Perez Work Phone: [facility] 02-27-2023 11:35-0400 Body temperature 98.8 [degF] Evelyn Calderonrn Work Phone: [facility] [employer] 02-27-2023 11:35-0400 Body weight 72.58 kg Evelyn Calderonrn Work Phone: [facility] [employer] 02-27-2023 11:35-0400 Diastolic blood pressure 66 mm[Hg] Evelyn Calderonrn Work Phone: [facility] [employer] 02-27-2023 11:35-0400 Heart rate 88 /min Evelyn Calderonrn Work Phone: [facility] [employer] 02-27-2023 11:35-0400 Respiratory rate 14 /min Evelyn Calderonrn Work Phone: [facility] [employer] [employer] 02-27-2023 11:35-0400 SaO2% (BldA) [Mass fraction] 100 % Evelyn Calderonrn Work Phone: [facility] [employer] 02-27-2023 11:35-0400 Systolic blood pressure 103 mm[Hg] Evelyn Calderonrn Work Phone: [facility] [employer] 06-19-2021 14:03-0400 Body height 157.48 cm Evelyn Calderonrn Work Phone: RW-YOGCR-Crluec 310 IVF Work Phone: 06-19-2021 14:03-0400 Body mass index (BMI) [Ratio] 29.26 kg/m2 Evelyn Calderonrn Work Phone: UR-BRRBA-Krocao 310 IVF Work Phone: 06-19-2021 14:03-0400 Body surface area Derived from formula 1.74 m2 Evelyn Calderonrn Work Phone: QA-JQINZ-Tplhnp 310 IVF Work Phone: 06-19-2021 14:03-0400 Body weight 72.58 kg Evelyn Husain Ana Work Phone: ZI-ZTYXY-Sydces 310 IVF Work Phone: 06-19-2021 14:03-0400 1 1 Evelyn M Ana Work Phone: SP-YGAVI-Kjkjpn 310 IVF Work Phone: Comment on above: GRAV PARA 06-19-2021 14:03-0400 0 1 Evelyn Husain Ana Work Phone: QP-THGSY-Yjtccf 310 IVF Work Phone: Comment on above: [employer] 06-07-2020 10:41-0400 BMI (Body Mass Index) 34.93 kg/m2 King Lappen PW-VQLNL-DSN [address] [place] Work Phone: 06-07-2020 10:41-0400 Body weight 86.64 kg King Lappen ED-WVHEF-TFV 120 0 [place] Work Phone: 06-07-2020 10:41-0400 BP Diastolic 76 mm[Hg] King Lappen ZQ-YCVLC-RNB 120 0 [place] Work Phone: 06-07-2020 10:41-0400 BP Systolic 111 mm[Hg] King Lappen IA-MPJQU-GWK 120 0 [place] Work Phone: 06-07-2020 10:41-0400 BSA (Body Surface Area) 1.87 m2 King Lappen SK-TAHBB-KAM [address] [place] Work Phone: 06-07-2020 10:41-0400 Pulse (Heart Rate) 101 /min King Lappen EN-ISPRR-BTF [address] [place] Work Phone: 06-07-2020 10:41-0400 0 1 King Lappen ZI-EVTFQ-ZJV 120 0 [place] Work Phone: Comment on above: [employer] 12-25-2019 10:58-0500 BMI (Body Mass Index) 30.18 kg/m2 King Lappen ME-PEAKE-PQJ [address] [place] Work Phone: 12-25-2019 10:58-0500 Body weight 74.84 kg King Lappen DY-NOAAM-HNW 120 0 [place] Work Phone: 12-25-2019 10:58-0500 BP Diastolic 68 mm[Hg] King Lappen LB-DMSIH-PNT 120 0 [place] Work Phone: 12-25-2019 10:58-0500 BP Systolic 112 mm[Hg] King Lappen FV-LEFAQ-XZT 120 0 [place] Work Phone: 12-25-2019 10:58-0500 BSA (Body Surface Area) 1.76 m2 King Lappen DZ-GQPKO-XHL 1200 [place] Work Phone: 11-09-2019 11:28-0500 Body Temperature 98.78 [degF] Kelechi Gage LO-YWIFD-Ynwkjq 310 IVF Work Phone: 11-09-2019 11:28-0500 BP Diastolic 76 mm[Hg] Kelechi Gage FM-QQRTX-Lqyotw 310 IVF Work Phone: 11-09-2019 11:28-0500 BP Systolic 112 mm[Hg] Kelechi Gage DP-IAHZQ-Xgxgya 310 IVF Work Phone: 11-09-2019 11:28-0500 Respiratory Rate 96 /min Kelechi Gage NW-OCPFG-Ueltxk 310 IVF Work Phone: Encounters Encounter Date Encounter Type Care Provider Facility Start: 02-07-2024 End: 02-07-2024 ambulatory DEMARIO RIBEIRO Not Available Start: 01-24-2024 End: 01-24-2024 ambulatory BERE STEEL Not Available Start: 01-10-2024 End: 01-11-2024 ambulatory Zoya Buitrago [employer]ER Facility:Pulmonology & Critical Care Medicine [facility] Start: 12-27-2023 End: 12-27-2023 ambulatory BERE STELE Not Available Start: 12-27-2023 End: 12-27-2023 flow [...] Start: 09-14-2023 End: 09-14-2023 ambulatory Lc Waite Facility:[facility] Start: 02-27-2023 End: 02-27-2023 Emergency department patient visit EVELYN Husain ANA [facility] Start: 02-27-2023 End: 02-27-2023 Emergency department patient visit Evelyn UngerAna Work Phone: [facility] ED Comment on above: Sprain of left ankle , unspecified ligament, initial encounter (Primary Dx) Start: 01-11-2023 End: 01-11-[address] DEMARIO RIBEIRO . Facility:[facility] Start: 09-22-2022 End: 09-22-2022 Emergency department patient visit JAMI ROMERO [facility] Start: 03-10-[address] EVELYN PEREZ Facility:[facility] [...] 12-27-2021 End: 12-27-2021 ambulatory Sabina Barnhart Other [place] Other Start: 12-27-2021 Office outpatient visit 5 minutes Sabina Barnhart [facility] Start: 07-16-2021 Patient encounter procedure Evelyn Perez Work Phone: WG-VPFXQ-Vytofm 310 IVF Work Phone: Start: 07-07-2021 AUDIT Evelyn castrohofabrizio Work Phone: QX-ULJSQ-Vxhbdk 310 IVF Work Phone: Start: 07-07-2021 Chart Update Evelyn santana Work Phone: LX-JRRDZ-Aqxwsj 310 IVF Work Phone: Start: 07-02-2021 Telephone encounter Evelyn gonzales Work Phone: GK-EIGIE-Cosqyr 310 IVF Work Phone: Start: 06-19-2021 Patient encounter procedure Evelyn Perez Work Phone: QC-UBWRT-Qyrwso 310 IVF Work Phone: Start: 06-07-2020 Patient encounter procedure King Lappen AS-MUMQM-PIS [address] [place] Work Phone: Start: 04-24-2020 Patient encounter procedure King Lappen VY-PBJPX-CPQ [address] [place] Work Phone: Start: 02-20-2020 Patient encounter procedure King Lappen SZ-OELQY-FJH 1200 [place] Work Phone: Start: 02-14-2020 Patient encounter procedure King Lappen MB-VLURE-QSG 1200 [place] Work Phone: Start: 01-23-2020 Patient encounter procedure King Lappen KW-UPBDH-HVM 1200 [place] Work Phone: Start: 12-25-2019 Patient encounter procedure King Lappen LY-MENJH-IGN [address] [place] Work Phone: Start: 11-21-2019 Patient encounter procedure King Lappen RA-CRHUL-HFX 1200 [place] Work Phone: Start: 11-16-2019 Patient encounter procedure Kelechi Gage MP-Reproductive Endocrinology-[place] 206 Work Phone: Start: 11-14-2019 Patient encounter procedure Kelechi Gage QG-SXNUO-Raejmy 310 IVF Work Phone: Start: 11-09-2019 Patient encounter procedure Kelechi Gage RF-OYGGT-Ulwogk 310 IVF Work Phone: Start: 11-02-2019 Patient encounter procedure Kelechi Gage ZEE-Reproductive Endocrinology-[place] Work Phone: Start: 10-21-2019 Patient encounter procedure Kelechi Gage MP-Reproductive Endocrinology-[place] Work Phone: Start: 10-14-2019 Patient encounter procedure Kelechi Gage IN-ZOWLN-Qpoxqa 310 IVF Work Phone: Start: 10-11-2019 Patient encounter procedure Kelechi Gage TR-PSXTS-Dzmjzq 310 IVF Work Phone: Start: 10-05-2019 Patient encounter procedure Kelechi Gage LK-RYZPO-Llyeyc 320 Work Phone: Start: 10-02-2019 Patient encounter procedure Kelechi Gage WK-JQRWH-Inwdwxj 206A IVF Work Phone: Start: 08-14-2019 Patient encounter procedure Kelechi Gage IW-GUTVW-Mqbaik 310 IVF Work Phone: Start: 08-13-2019 Patient encounter procedure Kelechi Gage PV-UFUTI-Omqgev 310 IVF Work Phone: Start: 08-12-2019 Patient encounter procedure Kelechi TONGCR-EYRYP-Qbyhoo 310 IVF Work Phone: Start: 08-11-2019 Patient encounter procedure Kelechi TONGQE-PRIZA-Czlybl 310 IVF Work Phone: Start: 08-09-2019 Patient encounter procedure Kelechi Gage YQ-APVKN-Wwbvat 310 IVF Work Phone: Start: 08-07-2019 Patient encounter procedure Kelechi TONGNR-EXFRP-Ervcdt 310 IVF Work Phone: Start: 08-04-2019 Patient encounter procedure Kelechi Gage MF-RDQHK-Fyucte 310 IVF Work Phone: Start: 07-07-2019 Patient encounter procedure Kelechi TONGDQ-QMVXN-Uazxry 310 IVF Work Phone: Start: 06-08-2019 Patient encounter procedure Kelechi TONGAM-TLEBS-Qomsti 310 IVF Work Phone: Start: 05-17-2019 Patient encounter procedure Kelechi TONGBY-GIYOI-Zbbsrc 310 IVF Work Phone: Start: 05-08-2019 Patient encounter procedure Kelechi TONGNC-PAPOB-Htankp 310 IVF Work Phone: Start: 05-05-2019 Patient encounter procedure Kelechi Gage UK-SDPEK-Zqedbs 310 IVF Work Phone: Start: 04-13-2019 Patient encounter procedure Kelechi Gage VB-GTOHR-Gtuyfd 310 IVF Work Phone: Start: 04-11-2019 Patient encounter procedure Kelechi Gage GO-RIYET-Thizni 310 IVF Work Phone: Start: 03-20-2019 Patient encounter procedure Kelechi Gage LK-MHVQO-Ipkgbn 310 IVF Work Phone: Start: 03-17-2019 Patient encounter procedure Kelechi Gage HS-ENEIR-Xccend 310 IVF Work Phone: Start: 02-22-2019 Patient encounter procedure Kelechi Gage BL-ABVFR-Pvkeft 310 IVF Work Phone: Start: 02-20-2019 Patient encounter procedure Kelechi TONGLY-FXMTT-Mxiqzd 310 IVF Work Phone: Start: 02-13-2019 Patient encounter procedure Bruce Mayes Facility:[facility] Start: 02-08-2019 End: 02-12-2019 Patient encounter procedure Bruce Mayes Facility:[facility] Start: 01-19-2019 Patient encounter procedure Kelcehi TONGPQ-HIVUB-Smlpnq 310 IVF Work Phone: Patient encounter status Evelyn Perez Work Phone: XA-DOYJM-Lckkvu 310 IVF Work Phone: Procedures Date Procedure [...] procedure 02/07/2024 9:40 AM EDT Routine [facility] [address] [facility] [place] [address] Demario Ribeiro DO [address] [place] [address] [facility]CP OB Start: 02-07-2024 End: 02-07-2024 Professional / ancillary services management 02/07/2024 9:00 AM EDT Ancillary Procedure [facility] OB [address] [place] [id number] [facility] Start: 01-24-2024 End: 01-24-2024 Patient encounter procedure 01/24/2024 9:30 AM EDT Routine [facility] [address] [facility] [place] [place] [id number] Bere Steel PA [address] [place] [address] [facility] BCP OB Start: 01-10-2024 End: 01-10-2024 Patient encounter procedure 01/10/2024 2:20 PM EST Routine [facility] BCP OB [address] [place], [place] [address] Demario Ribeiro DO [address] [facility] [address] [place] [address] [facility] BCP OB Start: 01-10-2024 End: 01-10-2024 Professional / ancillary services management 01/10/2024 2:00 PM EST Ancillary Procedure [facility] OB [address] [facility] [place] [id number] [facility]CP OB Start: 12-27-2023 End: 12-27-2024 US biophysical profile w non stress test US biophysical profile w non stress test Imaging Routine Hypothyroidism (acquired) (CMS/HCC) H/O blood clots Expected: 12/27/2023 (Approximate), Expires: 12/27/2024 [facility] Work Phone: Comment on above: Expected: 12/27/2023 (Approximate), Expires: 12/27/2024 Start: 12-27-2023 End: 12-27-2024 US for US OB SCAN FOR GROWTH Imaging Routine Hypothyroidism, unspecified type (CMS/HCC) Excessive growth affecting management of in third trimester, single or unspecified fetus Expected: 12/27/2023 (Approximate), Expires: 12/27/2024 [facility] Healthcare Comment on above: Expected: 12/27/2023 (Approximate), Expires: 12/27/2024 Start: 06-15-2023 Influenza vaccination Flu vacc ine (Season Ended) [facility] Start: 2021 Screening for malignant neoplasm of cervix [facility] Start: 07-25-2021 ULTRASOUND, Provider : OBGYRosenda IVF RDMS ARDEN 1,[facility] OBGYN, Status: Pen, Time: 9:00 AM ULTRASOUND, Provider: OBGYN IVF RDMS ARDEN 1,MG OBGYN, Status: Pen, Time: 9:00 AM MF-WIYNT-Ykcdik 310 IVF Work Phone: Start: 07-16-2021 ULTRASOUND, Provider : OBGYN IVF RDMS [id number] 1,MG OBGYN, Status: Pen, Time: 1:00 PM ULTRASOUND, Provider: OBGYN IVF RDMS [id number] 1,MG OBGYN, Status: Pen, Time: 1:00 PM AG-FXRWE-Tulipc 310 IVF Work Phone: Start: 07-07-2021 ULTRASALIN, Provider : Miguel A Barrera, Status: Pen, Time: 10:00 AM ULTRASALIN, Provider: Miguel A Barrera, Status: Pen, Time: 10:00 AM YK-CUXKA-Lopwhz 310 IVF Work Phone: Start: 06-05-2020 MAC Imaging Order 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 1200 [place] Work Phone: Start: 11-16-2019 IO Ultrasound, -Reproductive Endocrinology-[facility] chastity 206 Work Phone: Start: 11-14-2019 Blood count complete auto&auto difrntl wbc Complete Blood Count + Differential AC-OAYNS-Tkizoq 310 IVF Work Phone: Start: 11-14-2019 Comprehensive metabolic 2000 panel LI-OMXOO-Ctwhod 310 IVF Work Phone: Start: 11-02-2019 Gonadotropin chorion ic quantitative HCG, Beta Quantitative MP-Reproductive Endocrinology-[place] chast[place] 206 Work Phone: Start: 10-11-2019 IO Ultrasound, limited pelvic, follicle monitoring ZZ-QLVNG-Bydcsa 310 IVF Work Phone: Start: 10-05-2019 IO Ultrasound, limited pelvic, follicle monitoring YM-ZODYG-Armoyu 320 Work Phone: Start: 2012 Screening for malignant neoplasm of cervix Pap smear [facility] Start: 2010 DTaP/Tdap/Td vaccine (1 - Tdap) DTaP/Tdap/Td vaccine (1 - Tdap) [facility] Start: 2009 Hepatitis C screening Hepatitis C sc reen [facility] Start: 2006 HIV screening HIV screen [facility] Start: 2003 Depression Screen Depression Screen [facility] Start: 1992 Varicella vaccine (1 of 2 - 2-dose childhood series) Varicella vaccine (1 of 2 - 2-dose childhood series) [facility] Start: 03-02-1992 COVID-19 Vaccine (#1) COVID-19 Vacci ne (#1) [facility] Assay of estradiol Estradiol, Serum MG-LIQUID WASTE T[employer]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 Planned Goals not documented IX-XWBVM-Yijrmj 310 IVF Work Phone: Payers Date Payer Category Payer Self-pay 2016 Private Health Insurance [id number] 2016 Private Health Insurance [id number] 1991 Unknown [id number] 2.16.84 0.1.741951.3.579.2.593 1991 Unknown [id number] 2.16.84 0.1.600362.3.579.2.593 1991 Unknown [id number] 2.16.84 0.1.107514.3.579.2.593 1991 Unknown [id number] 2.16.84 0.1.754033.3.579.2.593 1991 Unknown [id number] 2.16.84 0.1.436694.3.579.2.593 1991 Unknown [id number] 2.16.84 0.1.762409.3.579.2.593 1991 Unknown [id number] 2.16.84 0.1.740539.3.579.2.593 1991 Unknown [id number] 2.16.84 0.1.533170.3.579.2.593 1991 Unknown [id number] 2.16.84 0.1.991574.3.579.2.593 1991 Unknown [id number] 2.16.84 0.1.166626.3.579.2.593 1991 Unknown [id number] 2.16.84 0.1.699422.3.579.2.593 1991 Unknown [id number] 2.16.84 0.1.644887.3.579.2.593 1991 Unknown [id number] 2.16.84 0.1.620879.3.579.2.593 1991 Unknown [id number] 2.16.84 0.1.756829.3.579.2.593 1991 Unknown [id number] 2.16.8 40.1.069735.3.579.2.173 1991 Unknown [id number] 2.16.8 40.1.762560.3.579.2.173 1991 Unknown [id number] 2.16. 840.1.421389.3.579.2.196 1991 Unknown [id number] 2.16. 840.1.300629.3.579.2.196 1991 Unknown [id number] 2.16.84 0.1.274019.3.579.2.1259 1991 Unknown [id number] 2.16.84 0.1.768965.3.579.2.1259 1991 Unknown [id number] 2.16.84 0.1.098398.3.579.2.1259 1991 Unknown [id number] 2.16.84 0.1.239725.3.579.2.1259 1991 Unknown [id number] 2.16.84 0.1.179796.3.579.2.1259 1991 Unknown [id number] 2.16.840 .1.953495.3.579.2.1259 1991 Unknown [id number] 2.16.840 .1.253758.3.579.2.1259 1959 Self-pay [id number] 1959 Unknown [id number] 1959 Unknown [id number] Unknown [id number] 2.16.8 40.1.961000.3.579.2.243 Unknown [id number] 2.16.8 40.1.754049.3.579.2.243 Unknown Unknown [id number] 2.16.8 40.1.357041.3.579.2.531 Social History Date Type Detail Facility - - FK-HYFYR-Tvfuta 310 IVF Work Phone: Start: 05-11-2023 End: 12-27-2023 Never a smoker Never a smoker [facility] Comment on above: [facility]; Start: 05-11-2023 End: 09-06-2023 Sex Assigned At [facility] Start: 09-22-2022 End: 04-15-2023 Tobacco smoking status NHIS Never smoked tobacco [employer] Phone: Start: 09-22-2022 End: 04-15-2023 Tobacco use and exposure Smokeless tobacco non-user [employer] Phone: Start: 1990 Sex Assigned At Not on file B ON [employer] Phone: Start: 02-17-2023 End: 02-27-2023 Exposure to SARS-CoV-2 (event) Not sure Intent Start: 12-27-2023 Alcohol intake Current drinke r [...] status health issues are not documented Disease [id number] 310 IVF Work Phone: Mental Status Date Assessment Result Facility NEGATED: Highlighted row Cognitive function [Interpretation] Cognitive status health issues are not documented Disease [id number] 310 IVF Work Phone: History of Present [...] of: ELIZABETH Daly documented in this encounter [facility] Evaluation note 12-27-2021 Note Date [...] Patient care instructions given in writting by [facility] Care At Home document. [place] Other Clinical Note 07-25-2021 Note Date & [...] care. Reviewed plan with Dr. Bruce Aburto, LYE BOILER 07/25/2021 09:22 MD note: ob scan LOLLY: [...] Plan reviewed by Dr. Healy. Petra Harjit LYE BOILER 07/16/21 1409 TC to pt with quant = 3238 form yesterday; normal rise from 728 on 07/02; Pt doing well; no problems with Lovenox. PT transferred to [facility] to schedule OB US for next week at [facility]. Bere Way RN 07/07/2021 11:47 Spoke with patient regarding PBPM=059. Pain=0. Patient states she will begin prometrium BID and Lovenox today. Patient will repeat BHCg on Wednesday when she is at work. Patient aware RN will call her WednesdayJuly 07 with results and plan. Lucy uDnlap R.N.07/03/2021 12:19 Spoke to patient, will start Prometrium 100 mg BID and Lovenox 40 mg BID today (+Protein S deficiency). [place] to f/u with patient tomorrow once HCG level is back. Patient verbalized understanding. Rosibel Sam RN 07/02/2021 13:54 MD note: Reviewed positive test. LMP 7/15, conceived on christy cycle/IC. Plan to get HCG drawn today. Start Prometrium 100mg BID. Start Lovenox 40mg BID SQ. Plan per Dr. Healy. RN to communicate. Petra Lombardi LYE BOILER 07/02/21 1304 Active Problems 16 weeks gestation [...] directed. Peak F (more content not included)... [employer] Chief complaint Narrative - Reported 06-19-2021 Note [...] pandemic. Verbal consent obtained for telemedicine visit.[employer] [id number] 310 IVF Work Phone: History of Present illness Narrative 06-15-2020 Note Date & Type Note Facility 06-15-2020 History of Present illness Narrative IVF Consult:Patient is a 30 year-old who presents for a FET [id number] Hx:06/2020: IOL @ 38 weeks due to [...] contour on HSG - images reviewed from [facility] 08/2018Uterine Cavity Evaluation:Normal uterine cavity on [...] on therapeutic dosing when Genetic Screening Hx: twidox foresight screen negativePartner History:Franklin Ashley 04/09/1989A in past year:2.8 cc125 mil/mL69% ekkyurbiPUS=597 million(recent IUI sample)Morph from original SA was 2.8% [id number] 310 IVF Work Phone: Evaluation note Note Date & Type Note Facility Evaluation note Diagnosis Sprain of left ankle, unspecified ligament, initial encounter- Primary documented in this encounter [employer] Phone: Evaluation note Note Date & Type Note Facility Evaluation note Diagnosis Third trimester state, incidental First trimester state, incidental Hypothyroidism, unspecified type ([facility]) Hypothyroidism (acquired) ([facility]) Unspecified hypothyroidism H/O blood clots Excessive growth affecting management of in third trimester, single or unspecified fetus documented in this encounter [facility] Hospital Discharge instructions Attachments Note Date & Type Note Facility Hospital Discharge instructions The following attachments cannot be sent through Care Everywhere.Ankle Sprain (Canadian)Ankle Sprain: Rehab Exercises ([place])documented in this encounter [employer] Phone: Summary Purpose Family History No Family [...] DATE CREATED AUTHOR AUTHOR'S ORGANIZ ATION 11/12/2019 [facility] DATE CREATED AUTHOR AUTHOR'S ORGANIZ ATION 08/09/2020 [facility] DATE CREATED AUTHOR AUTHOR'S ORGANIZ ATION 07/26/2021 [employer] DATE CREATED AUTHOR AUTHOR'S ORGANIZ ATION 01/21/2023 [facility] DATE CREATED AUTHOR AUTHOR'S ORGANIZ ATION 03/06/2023 [facility] DATE CREATED AUTHOR AUTHOR'S ORGANIZ ATION 07/12/2023 [facility] DATE CREATED AUTHOR AUTHOR'S ORGANIZ ATION 10/04/2023 [facility] DATE CREATED AUTHOR AUTHOR'S ORGANIZ ATION 01/15/2024 [facility] DATE CREATED AUTHOR AUTHOR'S ORGANIZ ATION 02/07/[address] [facility] dical Specialists EPIC REASON FOR VISIT (unrecogniz ed section and content) Reason Comments Ankle Pain Rolled ankle during morning run. Swelling to lateral ankle. 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 Reason Comments Routine Visit Care Teams (unrecognized sec tion and content) Service Assistant Relationship Specialty Start Date End Date Evelyn Perez [address] [place] [address] PCP - General Pediatrics 09/22/22 Service Assistant Relationship Specialty Start Date End Date Jesse Regan MD [address] [place] [address] PCP - General Family Medicine 11/30/23 FOR [...] BE BASED ON THE PRIMARY CLINICAL RECORDS. [employer] provides no warranty or guarantee of the accuracy or completeness of information in this document.
[2024-02-18 10:08] VITALS: BP 109/66; PULSE 94
== END 2024-02-18 10:55 | disposition home or self-care (01) ==
LOC: FBCO 07:11 → FBC 10:01
PROVIDERS: Visit Provider Obstetrics & Gynecology
DX: O99.283 Endocrine, nutritional and metabolic diseases complicating pregnancy, third trimester (principal)
CPT/HCPCS: 59025

== ENCOUNTER 2024-02-22 06:53 | Outpatient (OUT) | payer OTHER, SELFPAY ==
--- NOTE | 2024-02-22 | US_ITS ---
[address] [address] Patient Name: ELVIN STUART MRN: [id number] date: 1990 Sex: F Assigned Patient Location: [facility] Current Patient Location: [facility] Accession/Order Number: [id number] Exam Date: 02/22/2024 10:01 Report Date: 02/22/2024 10:46 At the request of: RADAMES CHAUHAN Procedure: US OB BPP w non-stress EXAMINATION: US OB BPP w non-stress HISTORY: Hypothyroidism E03.9 COMPARISON: No relevant comparison available. TECHNIQUE: Ultrasound biophysical profile was performed in the radiology department. non-reactive stress testing was performed by nursing staff in the birthing center. FINDINGS: BREATHING MOVEMENTS: 2.0 GROSS BODY MOVEMENTS: 2.0 TONE: 2.0 QUALITATIVE AMNIOTIC FLUID VOLUME: 2.0 PRESENTATION: CEPHALIC HEART RATE: 153.1 bpm H.B./min AMNIOTIC FLUID VOLUME: 10.6 cm cm GESTATIONAL AGE: 36 weeks 3 days CONCLUSION: Total biophysical profile score: 8.0 Electronically authenticated by: JESSE THOMAS Date: 02/22/2024 10:46
--- OUTSIDE RECORDS SUMMARY | 2024-02-22 06:55 | XMS_ITS | CCD ---
Author Organization [facility] Care Team Providers Care Visual Education Teacher Name Role Phone Bruce Mayes Attending [...] HER Unavailable Unavaila ble OBGYN IVF RDMS [id number] 1, MG OBGYN Unavailable Unavailable Lapkathrine King [...] DR JESSE Alvarez Consulting Unavailable ANA, DR EVELNY Husain Primary Care Unavail able GISSEL ., [...] Unavailable Ana, Evelyn Husain Primary Care Provider [phone] JAMI ROMERO Attending Unavailable ANA, EVELYN Husain Primary Care Unavailabl e ANA, EVELYN M Primary Care UnavailLc Rick Admitting Unavailable Evelyn Perez Primary Care Unavailable Lc Waite Attending Unavailable Jesse Regan MD Primary Care Provider [facility], Zoya Cheung Attending Evelyn Robertson MD Primary Care Zamzam vailasánchez Perez MD, Evelyn Gracia Primary Care Zamzam vailable Link [employer]PER[employer], Zoya Cheung Attending Zamzamva DEMARIO Hoang Attending Unavailable BERE STEEL Attending Unavailable ELSA, BERE Attending Unavailable DEMARIO RIBEIRO Attending Unavailable BERE STEEL Attending Unavailable DEMARIO RIBEIRO Attending Unavailable DEMARIO RIBEIRO Attending Unavailable Allergies Allergy Classification Reported Allergen(s) Allergy Type Date of Onset Reaction(s) Facility Progesterone (2 sources) Progesterone; Translations: [Progesterone OIL] Drug Allergy [id number] n 310 IVF Work Phone: (16 sources) Progesterone; Translations: [Progesterone OIL] Drug Allergy 2 [facility] (2 sources) sesame seed extract Drug Allergy [facility] (2 sources) Progesterone Drug Allergy [address] [facility] (1 source) No Known Medication Allergies; Translations: [No Known Medication Allergies] Propensity to adverse reactions to drug (disorder) [facility] Repository Medications Current Medications Medication Drug [...] Kelechi Gage MD Start : 14-Aug-2019 Active [id number] 200 actuat albuterol 0.09 mg/actuat metered dose [...] DO Start : 19-Jan-2019 Active BD Disp Buffalo 27G X 1/2 (19 sources) Start: 10-03-2019 BD Disp Needle s 27G X 1/2 USE DIRECTED. Quantity: 2 Refills: 2 Shahla Healy MD Start : 03-Oct-2019 Active chorionic gonadotropin 56734 unt/ml injectable solution (19 sources) Gonadotropin Start: 10-03-2019 Chorionic Gonadotropin 97950 UNIT Intramuscular Solution Reconstituted USE DIRECTED. Quantity: [...] Start : 25-Dec-2019 Active Peak Flow Meter Fithian Rang Device (3 sources) Start: 01-23-2020 Peak Flow Mete r Fithian Rang Device USE DIRECTED. Quantity: 1 Refills: [...] refills. Continue with anticoagulation as prescribed by [employer], patient is currently 30 weeks gestation. Follow-up [...] embolism Historical No qualifying data Procedure/Surgical History [place] Teeth Removal (2005) IVF (11/15/2018) Medications Dulera [...] Link Zoya PERKINS 01/10/24 12:40 EST Normal [facility] Phone Note - Heme Onc-medica tion questionon 07-12-2023 Phone Note - Heme Onc-medication question Phone Call Information: Patient Demographics: Name: KIARA ASHLEY Date: 1990 Address: [address] [place] [address] Date and Time: 12-Jul-2023 09:31 Caller Information: call from Call From: patient Caller Name: Kiara Primary Phone Number: [phone] Reason for Call: Reason for Callmedication question Message: Message: Patient found out yesterday that she is so she will need to double her Lovenox Asking for new RX Caller Informed Of: Per Dr. Mayes: she needs lovenox 40 mg SC BID for first trimester Team Communication: Clinician note: contacted patient Disposition: Rx sent by [facility] Team Communications: Spoke with the patient. States she is positive for . Provided update from Dr. Mayes above. Pt asked for script to be sent to [facility]. Script sent. Pt had no [...] 09:57 by Harmony Ross (N MGR) Normal [facility] XR ANKLE LEFT (MIN 3 VIEWS)o n [...] Dario William MD 02/27/23 Final result Normal [facility] 1. No acute osseous abnormality involving [...] acute osseous abnormality involving the left ankle. [facility] Phone: Radiology Study observation (narrative) [facility] Phone: XR ANKLE LEFT (MIN 3 VIEWS)O rdered By: Dario Stewart on 02-27-2023 [facility] Phone: PAP ACOG PANEL 2: 30 to 65on 01-19-2023 . . Normal [facility] Comment on above: Result Comment: Perf ormed at: WB Performed By: #### [id number] #### [facility] [address] [address] [address] Claire Mayes Age Gdln ACOG Testing 31- Normal [facility] Comment on above: Performed By: #### [id number] #### [facility] [address] [address] [address] Claire Mayes DIAGNOSIS: Comment Normal [facility] Comment on above: Result Comment: NEGA TIVE FOR INTRAEPITHELIAL LESION OR MALIGNANCY. Performed at: WB Performed By: #### [id number] #### [facility] [address] [address] [address] Claire Mayes HPV Aptima Negative Normal Negative [facility] Comment on above: Result Comment: This nucleic acid amplification test detects fourteen high-risk HPV types (16,18,31,33,35,39,45,51,52,56,58,59,66,68) without differentiation. Performed at: =G Performed By: #### [id number] #### [facility] [address] [address] [address] Claire Mayes HPV Genotype Reflex Comment Normal [facility] Comment on above: Result Comment: Crit eria not met, HPV Genotype not performed. Performed at: WB Performed By: #### [id number] #### [facility] [address] [address] [address] Claire Mayes Methodology: Comment Normal [facility] Comment on above: Result Comment: This liquid based ThinPrep(R) pap test was screened with the use of an image guided system. Performed at: WB Performed By: #### [id number] #### [facility] [address] [place] [address] Dr. Claire Mayes Note: Comment Normal [facility] Comment on above: Result Comment: The Pap smear is a screening test designed to aid in the detection of premalignant and malignant conditions of the uterine cervix. It is not a diagnostic procedure and should not be used as the sole means of detecting cervical cancer. Both false-positive and false-negative reports do occur. . Performed at: WB Performed By: #### [id number] #### [facility] [address] [place] [address] Dr. Claire Mayes Performed by: Comment Normal [facility] Comment on above: Result Comment: Sherlyn Wright, Ap Operator (ASCP) Performed at: WB Performed By: #### [id number] #### [facility] [address] [place] [address] Dr. Claire Mayes Specimen adequacy: Comment Normal [facility] Comment on above: Result Comment: Sati sfactory for evaluation. No endocervical component is identified. Performed at: WB Performed By: #### [id number] #### [facility] [address] [place] [address] Dr. Claire Mayes CBC with Diffon 09-22-2022 Abs. Basophil 0.03 k/uL Normal 0.00-0.20 [facility] Comment on above: Performed By: #### L BJ BUCK, CP #### [facility] [address] [place] [address] Dr. [address] [place] [id number] Program Aide: Jesse Curry MD Abs.Imm.Granulocy te 0.04 k/uL Normal 0.00-0.30 [facility] Comment on above: Performed By: #### L BJ BUCK, CP #### [facility] [address] [place] [id number] Program Aide: Jesse Curry MD Abs.Neutrophil (Seg) 12.54 k/uL High 1.50-8.10 [facility] Comment on above: Performed By: #### L IP, CDP, CP #### [facility] [address] [place], [place] [address] Program Aide: Jesse Curry MD Basophils/100 WBC (Bld) 0 % Normal 0-2 [facility] Comment on above: Performed By: #### L IP, CDP, CP #### [address] [place], [place] [address] Program Aide: Jesse Curry MD Eosinophils (Bld) [#/Vol] 0.16 10*3/uL Normal 0.00-0.44 [facility] Comment on above: Performed By: #### L IP, CDP, CP #### [address] [place], [place] [address] Program Aide: Jesse Curry MD Eosinophils/100 WBC (Bld) 1 % Normal 1-4 [facility] Comment on above: Performed By: #### L IP, CDP, CP #### [address] [place], [facility]83 Program Aide: Jesse Curry MD Erythrocyte distribution width (RBC) [Ratio] 13.6 % Normal 11.8-14.4 [facility] Comment on above: Performed By: #### L IP, CDP, CP #### [address] [place], [place] [address] Program Aide: Jesse Curry MD Hematocrit (Bld) [Volume fraction] 46.4 % Normal 36.3-47.1 [facility] Comment on above: Performed By: #### L IP, CDP, CP #### [address] [place], [facility] Program Aide: Jesse Curry MD Hemoglobin (Bld) [Mass/Vol] 15.6 g/dL High 11.9-15.1 [facility] Comment on above: Performed By: #### L IP, CDP, CP #### [facility] [address] [place], [place] [id number] Program Aide: Jesse Curry MD Immature granulocytes/100 WBC (Bld) 0 % Normal 0 [facility] Comment on above: Performed By: #### L IP, CDP, CP #### [address] [place], [facility] Program Aide: Jesse Curry MD Lymphocytes (Bld) [#/Vol] 0.98 10*3/uL Low 1.10-3.70 [facility] Comment on above: Performed By: #### L IP, CDP, CP #### [address] [place], [facility] Program Aide: Jesse Curry MD Lymphocytes/100 WBC (Bld) 7 % Low 24-43 [facility] Comment on above: Performed By: #### L IP, CDP, CP #### [address] [place], [facility] Program Aide: Jesse Curry MD MCH (RBC) [Entitic mass] 30.4 pg Normal 25.2-33.5 [facility] Comment on above: Performed By: #### L IP, CDP, CP #### [address] [place], [facility] Program Aide: Jesse Curry MD MCHC (RBC) [Mass/Vol] 33.6 g/dL Normal 28.4-34.8 [facility] Comment on above: Performed By: #### L IP, CDP, CP #### [address] [place] [address] Program Aide: Jesse Curry MD MCV (RBC) [Entitic vol] 90.3 fL Normal 82.6-102.9 [facility] Comment on above: Performed By: #### L IP, CDP, CP #### [address] [place], [facility] Program Aide: Jesse Curry MD Monocytes (Bld) [#/Vol] 0.58 10*3/uL Normal 0.10-1.20 [facility] Comment on above: Performed By: #### L IP, CDP, CP #### [facility] [address] [place], [facility] Program Aide: Jesse Curry MD Monocytes/100 WBC (Bld) 4 % Normal 3-12 [facility] Comment on above: Performed By: #### L IP, CDP, CP #### [address] [place], [place] [address] Program Aide: Jesse Curry MD Neutrophil (Seg) 88 % High 36-65 [facility] Comment on above: Performed By: #### L IP, CDP, CP #### [address] [place], [facility] Program Aide: Jesse Curry MD NRBC Automated 0.0 per 100 WBC Normal 0.0 [facility] Comment on above: Performed By: #### L IP, CDP, CP #### [address] [place], [facility] Program Aide: Jesse Curry MD Platelet mean volume (Bld) [Entitic vol] 9.9 fL Normal 8.1-13.5 [facility] Comment on above: Performed By: #### L IP, CDP, CP #### [facility] [address] [place] [address] Dr. [place], [facility] Program Aide: Jesse Curry MD Platelets (Bld) [#/Vol] 299 10*3/uL Normal 138-453 [facility] Comment on above: Performed By: #### L IP, CDP, CP #### [facility] [address] [place], [facility] Program Aide: Jesse Curry MD RBC (Bld) [#/Vol] 5.14 10*6/uL High 3.95-5.11 [facility] Comment on above: Performed By: #### L BJ BUCK, CP #### [facility] [address] [place], [place] [id number] Program Aide: Jesse Curry MD WBC (Bld) [#/Vol] 14.3 10*3/uL High 3.5-11.3 [facility] Comment on above: Performed By: #### L BJ BUCK, CP #### [facility] [address] [place] [address] Program Aide: Jesse Curry MD CT ABDOMEN PELVIS W [...] A Maldonado DO 09/22/22 Final result Normal [facility] Comp Metabolic Profon 2021 Albumin [Mass/Vol] 4.7 g/dL Normal 3.5-5.2 [facility] Comment on above: Performed By: #### L IP, CDP, CP #### [facility] [address] [place] [address] Program Aide: Jesse Curry MD Albumin/Glob Ratio 2.0 Normal 1.0-2.5 [facility] Comment on above: Performed By: #### L IP, CDP, CP #### [address] [place] [address] Program Aide: Jesse Curry MD Alkaline Phos 77 U/L Normal 35-104 [facility] Comment on above: Performed By: #### L IP, CDP, CP #### [address] [place] [address] Program Aide: Jesse Curry MD ALT [Catalytic activity/Vol] 10 U/L Normal 5-33 [facility] Comment on above: Performed By: #### L IP, CDP, CP #### [address] [place] [address] Program Aide: Jesse Curry MD Anion gap [Moles/Vol] 12 mmol/L Normal 9-17 [facility] Comment on above: Performed By: #### L IP, CDP, CP #### [address] [place] [address] Program Aide: Jesse Curry MD AST [Catalytic activity/Vol] 14 U/L Normal <32 [facility] Comment on above: Performed By: #### L IP, CDP, CP #### [facility] [address] [place], [place] [id number] Program Aide: Jesse Curry MD Bilirubin [Mass/Vol] 0.6 mg/dL Normal 0.3-1.2 [facility] Comment on above: Performed By: #### L IP, CDP, CP #### [facility] [address] [place], [place] [id number] Program Aide: Jesse Curry MD BUN/CRE Ratio 31 High 9-20 [facility] Comment on above: Performed By: #### L IP, CDP, CP #### [address] [place], [place] [id number] Program Aide: Jesse Curry MD Calcium [Mass/Vol] 9.8 mg/dL Normal 8.6-10.4 [facility] Comment on above: Performed By: #### L IP, CDP, CP #### [facility] [address] [place] [address] Dr. [place], [place] 0245383 Program Aide: Jesse Curry MD Chloride [Moles/Vol] 104 mmol/L Normal 98-107 [facility] Comment on above: Performed By: #### L IP, CDP, CP #### [facility] [address] [place] [address] Dr. [place], [place] 1644383 Program Aide: Jesse Curry MD CO2 [Moles/Vol] 22 mmol/L Normal 20-31 [facility] Comment on above: Performed By: #### L IP, CDP, CP #### [facility] [address] [place] [address] Dr. [place], [place] [id number] Program Aide: Jesse Curry MD Creatinine [Mass/Vol] 0.85 mg/dL Normal 0.50-0.90 [facility] Comment on above: Performed By: #### L IP, CDP, CP #### [facility] [address] [place] [address] Dr. [place], [place] [id number] Program Aide: Jesse Curry MD GFR/1.73 sq M.predicted among non-blacks MDRD (S/P/Bld) [Vol rate/Area] mL/min/{1.73_m2} Normal >60 [facility] Comment on above: Result Comment: Effective [...] By: #### L BJ BUCK, CP #### [address] [place] [address] Program Aide: Jesse Curry MD Glucose [Mass/Vol] 109 mg/dL High 70-99 [facility] Comment on above: Performed By: #### L BJ BUCK, CP #### [address] [place] [address] Program Aide: Jesse Curry MD Potassium [Moles/Vol] 4.0 mmol/L Normal 3.7-5.3 [facility] Comment on above: Performed By: #### L CIELO CDP, CP #### [address] [place] [address] Program Aide: Jesse Curry MD Protein [Mass/Vol] 7.1 g/dL Normal 6.4-8.3 [facility] Comment on above: Performed By: #### L CIELO CDP, CP #### [address] [place] [address] Program Aide: Jesse Curry MD Sodium [Moles/Vol] 138 mmol/L Normal 135-144 [facility] Comment on above: Performed By: #### L IP CDP, CP #### [address] [place] [address] Program Aide: Jesse Curry MD Urea nitrogen [Mass/Vol] 26 mg/dL High 6-20 [facility] Comment on above: Performed By: #### L BJ BUCK, CP #### [facility] [address] [place] [address] Program Aide: Jesse Curry MD HCG, ,Urineon 09-22 Beta HCG ( test) Ql (U) Negative Normal NEG [facility] Comment on above: Result Comment: Spec imens with hCG levels near the threshold of the test (25 mIU/mL) may give a negative or indeterminate result. In such cases, another test should be performed with a new specimen in 48-72 hours. If early is suspected clinically in this setting, correlation with quantitative serum b-hCG level is suggested. [facility] has confirmed the use of plasma for this test. This has not been cleared or approved by the U.[place]. Food and Drug Administration. The FDA has determined that such clearance is not necessary. Performed By: #### U HCG #### [facility] [address] [place] [address] Program Aide: Jesse Curry MD Lactic Acidon 09-22-2022 Lactate [Moles/Vol] 1.8 mmol/L Normal 0.5-2.2 [facility] Comment on above: Performed By: #### L ACTIC #### [facility] [address] [place] [address] Program Aide: Jesse Curry MD Lipaseon 09-22-2022 Lipase [Catalytic activity/Vol] 39 U/L Normal 13-60 [facility] Comment on above: Performed By: #### L BJ BUCK, CP #### [facility] [address] [place] [address] Program Aide: Jesse Curry MD UA w/Reflex Cultureon 2021 Bilirubin, SemiQt,Ur Negative Normal NEG [facility] Comment on above: Performed By: #### U MICAO, UAX #### [facility] [address] [place] [address] Dr. [place], [place] [id number] Program Aide: Jesse Curry MD Blood, Urine Negative Normal NEG [facility] Comment on above: Performed By: #### U MICAO, UAX #### [facility] [address] [place] [address] Dr. [place], [place] [id number] Program Aide: Jesse Curry MD Clarity (U) Clear Normal CLEAR [facility] Comment on above: Performed By: #### U MICAO, UAX #### [address] [place], [place] 6966083 Program Aide: Jesse Curry MD Color (U) Yellow Normal YEL [facility] Comment on above: Performed By: #### U MICAO, UAX #### [facility] [address] [place] [address] Dr. [place], [place] 6454983 Program Aide: Jesse Curry MD Glucose Ql (U) Negative Normal NEG [facility] Comment on above: Performed By: #### U MICAO, UAX #### [address] [place], [place] [id number] Program Aide: Jesse Curry MD Ketones Ql (U) Negative Normal NEG [facility] Comment on above: Performed By: #### U MICAO, UAX #### [facility] [address] [place] [address] Dr. [place], [place] 7458783 Program Aide: Jesse Curry MD Leukocyte esterase Test strip Ql (U) Negative Normal NEG [facility] Comment on above: Performed By: #### U MICAO, UAX #### [address] [place], [place] [id number] Program Aide: Jesse Curry MD Nitrite,Ur Negative Normal NEG [facility] Comment on above: Performed By: #### U MICAO, UAX #### [facility] [address] [place] [address] Dr. [place], [place] [id number] Program Aide: Jesse Curry MD PH,Ur 8.0 Normal 5.0-9.0 [facility] Comment on above: Performed By: #### U MICAO, UAX #### [facility] [address] [place] [address] Dr. [place], [place] 1824783 Program Aide: Jesse Curry MD Protein Ql (U) Negative Normal NEG [facility] Comment on above: Performed By: #### U MICAO, UAX #### [address] [place], [place] 2506083 Program Aide: Jesse Curry MD Spec. [place],Ur 1.020 Normal 1.010-1.020 [facility] Comment on above: Performed By: #### U MICAO, UAX #### [facility] [address] [place] [address] Dr. [place], [place] 5607483 Program Aide: Jesse Curry MD Urobilinogen,Ur Normal Normal NORM [facility] Comment on above: Performed By: #### U MICAO, UAX #### [address] [place], [place] 3391283 Program Aide: Jesse Curry MD Urinalysis,Microon 2 Bacteria TRACE Abnormal NONE [facility] Comment on above: Performed By: #### U MICAO, UAX #### [facility] [address] [place] [address] Dr. [place], [place] [id number] Program Aide: Jesse Curry MD Epithelial cells LM Ql (Urine sed) 0 TO 2 Normal 0-25 [facility] Comment on above: Performed By: #### U MICAO, UAX #### [facility] [address] [place] [address] [place] [address] Program Aide: Jesse Curry MD Urine RBC's None Normal 0-2 [facility] Comment on above: Performed By: #### U MICAO, UAX #### [facility] [address] [place], [place] [id number] Program Aide: Jesse Curry MD Urine WBC's 0 TO 2 Normal 0-5 [facility] Comment on above: Performed By: #### U DARIO, UAX #### [facility] [address] [place] [address] Program Aide: Jesse Curry MD CBC AUTO DIFFon 02-20-2022 BASO # 0.1 103/ul Normal 0.0-0.1 [facility] Comment on above: Performed By: #### C BC #### [facility] [address] [place] [address] Dr. Claire Mayes Basophils/100 WBC (Bld) 0.8 % Normal 0.2-2.0 [facility] Comment on above: Performed By: #### C BC #### [facility] [address] [place] [address] Dr. Claire Mayes EO # 0.2 103/ul Normal 0.0-0.7 [facility] Comment on above: Performed By: #### C BC #### [facility] [address] [place] [address] Dr. Claire Mayes Eosinophils/100 WBC (Bld) 0.9 % Normal 0.9-7.0 [facility] Comment on above: Performed By: #### C BC #### [facility] [address] [place] [address] Dr. Claire Mayes Erythrocyte distribution width (RBC) [Ratio] 15.0 % Normal 11.0-15.0 [facility] Comment on above: Performed By: #### C BC #### [facility] [address] [place] [address] Dr. Claire Mayes Hematocrit (Bld) [Volume fraction] 31.3 % Critically low 36.0-48.0 [facility] Comment on above: Performed By: #### C BC #### [facility] [address] [place] [address] Dr. Claire Mayes Hemoglobin (Bld) [Mass/Vol] 10.3 g/dL Critically low 12.0-16.0 [facility] Comment on above: Performed By: #### C BC #### [facility] [address] [place] [address] Dr. Claire Mayes IG # 0.21 10e3/ul Critically high 0.00-0.03 [facility] Comment on above: Performed By: #### C BC #### [facility] [address] [address] [address] Claire Mayes IG % 1.3 % Critically high 0.0-0.5 [facility] Comment on above: Performed By: #### C BC #### [facility] [address] [place] [address] Dr. Claire Mayes LYMPH # 2.1 103/ul Normal 1.2-3.8 [facility] Comment on above: Performed By: #### C BC #### [facility] [address] [place] [address] Dr. Claire Mayes Lymphocytes/100 WBC (Bld) 12.6 % Critically low 20.5-60.0 [facility] Comment on above: Performed By: #### C BC #### [facility] [address] [place] [address] Dr. Cliare Mayes MANUAL DIFF REQ NO Normal [facility] Comment on above: Performed By: #### C BC #### [facility] [address] [place] [address] Dr. Claire Mayes MCH (RBC) [Entitic mass] 29.8 pg Normal 26.7-34.0 [facility] Comment on above: Performed By: #### C BC #### [facility] [address] [place] [address] Dr. Claire Mayes MCHC (RBC) [Mass/Vol] 32.9 g/dL Normal 29.9-35.2 [facility] Comment on above: Performed By: #### C BC #### [facility] [address] [place] [address] Dr. Claire Mayes MCV (RBC) [Entitic vol] 90.5 fL Normal 81.0-99.0 [facility] Comment on above: Performed By: #### C BC #### [facility] [address] [place] [address] Dr. Claire Mayes MONO # 0.8 103/ul Normal 0.3-0.8 [facility] Comment on above: Performed By: #### C BC #### [facility] [address] [place] [address] Dr. Claire Mayes Monocytes/100 WBC (Bld) 5.1 % Normal 1.7-12.0 [facility] Comment on above: Performed By: #### C BC #### [facility] [address] [place] [address] Dr. Claire Mayes NEUT # 13.2 103/ul Critically high 1.4-6.5 [facility] Comment on above: Performed By: #### C BC #### [facility] [address] [place] [address] Dr. Claire Mayes Neutrophils/100 WBC (Bld) 79.3 % Critically high 43.0-75.0 [facility] Comment on above: Performed By: #### C BC #### [facility] [address] [place] [address] Dr. Claire Mayes Platelet mean volume (Bld) [Entitic vol] 10.4 fL Normal 9.5-13.5 [facility] Comment on above: Performed By: #### C BC #### [facility] [address] [place] [address] Dr. Claire Mayes PLT 233 103/ul Normal 150-450 [facility] Comment on above: Performed By: #### C BC #### [facility] [address] [place] [address] Dr. Claire Mayes RBC 3.46 106/ul Critically low 4.20-5.40 [facility] Comment on above: Performed By: #### C BC #### [facility] [address] [place] [address] Dr. Claire Mayes WBC 16.6 103/ul Critically high 4.0-11.0 [facility] Comment on above: Performed By: #### C BC #### [facility] [address] [address] [address] Claire Mayes CBC AUTO DIFFon 02-18-2022 BASO # 0.1 103/ul Normal 0.0-0.1 [facility] Comment on above: Performed By: #### C BC #### [facility] [address] [address] [address] Claire Mayes Basophils/100 WBC (Bld) 0.7 % Normal 0.2-2.0 [facility] Comment on above: Performed By: #### C BC #### [facility] [address] [place] [address] Dr. Claire Mayes EO # 0.2 103/ul Normal 0.0-0.7 [facility] Comment on above: Performed By: #### C BC #### [facility] [address] [place] [address] Dr. Claire Mayes Eosinophils/100 WBC (Bld) 1.2 % Normal 0.9-7.0 [facility] Comment on above: Performed By: #### C BC #### [facility] [address] [place] [address] Dr. Claire Mayes Erythrocyte distribution width (RBC) [Ratio] 15.0 % Normal 11.0-15.0 [facility] Comment on above: Performed By: #### C BC #### [facility] [address] [place] [address] Dr. Claire Mayes Hematocrit (Bld) [Volume fraction] 35.1 % Critically low 36.0-48.0 [facility] Comment on above: Performed By: #### C BC #### [facility] [address] [place] [address] Dr. Claire Mayes Hemoglobin (Bld) [Mass/Vol] 11.8 g/dL Critically low 12.0-16.0 [facility] Comment on above: Performed By: #### C BC #### [facility] [address] [place] [address] Dr. Claire Mayes IG # 0.30 10e3/ul Critically high 0.00-0.03 [facility] Comment on above: Performed By: #### C BC #### [facility] [address] [place] [address] Dr. Claire Mayes IG % 1.9 % Critically high 0.0-0.5 [facility] Comment on above: Performed By: #### C BC #### [facility] [address] [place] [address] Dr. Claire Mayes LYMPH # 2.9 103/ul Normal 1.2-3.8 [facility] Comment on above: Performed By: #### C BC #### [facility] [address] [place] [address] Dr. Claire Mayes Lymphocytes/100 WBC (Bld) 18.5 % Critically low 20.5-60.0 [facility] Comment on above: Performed By: #### C BC #### [facility] [address] [place] [address] Dr. Claire Mayes MANUAL DIFF REQ NO Normal [facility] Comment on above: Performed By: #### C BC #### [facility] [address] [place] [address] Dr. Claire Mayes MCH (RBC) [Entitic mass] 30.2 pg Normal 26.7-34.0 [facility] Comment on above: Performed By: #### C BC #### [facility] [address] [place] [address] Dr. Claire Mayes MCHC (RBC) [Mass/Vol] 33.6 g/dL Normal 29.9-35.2 [facility] Comment on above: Performed By: #### C BC #### [facility] [address] [place] [address] Dr. Claire Mayes MCV (RBC) [Entitic vol] 89.8 fL Normal 81.0-99.0 [facility] Comment on above: Performed By: #### C BC #### [facility] [address] [place] [address] Dr. Claire Mayes MONO # 0.7 103/ul Normal 0.3-0.8 [facility] Comment on above: Performed By: #### C BC #### [facility] [address] [address] [address] Claire Mayes Monocytes/100 WBC (Bld) 4.7 % Normal 1.7-12.0 [facility] Comment on above: Performed By: #### C BC #### [facility] [address] [address] [address] Claire Mayes NEUT # 11.3 103/ul Critically high 1.4-6.5 [facility] Comment on above: Performed By: #### C BC #### [facility] [address] [address] [address] Claire Mayes Neutrophils/100 WBC (Bld) 73.0 % Normal 43.0-75.0 [facility] Comment on above: Performed By: #### C BC #### [facility] [address] [place] [address] Dr. Claire Mayes Platelet mean volume (Bld) [Entitic vol] 10.8 fL Normal 9.5-13.5 [facility] Comment on above: Performed By: #### C BC #### [facility] [address] [address] [address] Claire Mayes PLT 233 103/ul Normal 150-450 [facility] Comment on above: Performed By: #### C BC #### [facility] [address] [place] [address] Dr. Claire Mayes RBC 3.91 106/ul Critically low 4.20-5.40 [facility] Comment on above: Performed By: #### C BC #### [facility] [address] [address] [address] Claire Mayes WBC 15.5 103/ul Critically high 4.0-11.0 [facility] Comment on above: Performed By: #### C BC #### [facility] [address] [address] [address] Claire Mayes Covid-19 PCR ([facility])on SARS-CoV-2 (COVID-19) RNA FERDINAND+probe Ql (Unsp spec) Not detected Normal NOT DETECTED [facility] Comment on above: Result Comment: When diagnostic [...] for this test is supported by the [place] of Health and Human Service's declaration that [...] used). Performed By: #### C VDTBH #### [facility] [address] [place] [address] Dr. Claire Mayes DRUG SCREEN RAPID (URINE)on 02-18-2022 AMP Negative Normal NEGATIVE [facility] Comment on above: Performed By: #### D RUGRPD #### [facility] [address] [place] [address] Dr. Claire Mayes BAR Negative Normal NEGATIVE [facility] Comment on above: Performed By: #### D RUGRPD #### [facility] [address] [place] [address] Dr. Claire Mayes BUP Negative Normal NEGATIVE [facility] Comment on above: Performed By: #### D RUGRPD #### [facility] [address] [place] [address] Dr. Claire Mayes BZO Negative Normal NEGATIVE [facility] Comment on above: Performed By: #### D RUGRPD #### [facility] [address] [place] [address] Dr. Claire Mayes KIT Negative Normal NEGATIVE [facility] Comment on above: Performed By: #### D RUGRPD #### [facility] [address] [place] [address] Dr. Claire Mayes CUT-OFFS SEE BELOW Normal [facility] Comment on above: Result Comment: AMP [...] ng/mL Performed By: #### D RUGRPD #### [facility] [address] [place] [address] Dr. Claire Mayes DRUG CUT HEADER DRUG CLASS TEST SYST EM CUT-OFF CONCENTRATIONS ARE FOLLOWS: Normal [facility] Comment on above: Performed By: #### D RUGRPD #### [facility] [address] [place] [address] Dr. Claire Mayes mAMP Negative Normal NEGATIVE [facility] Comment on above: Performed By: #### D RUGRPD #### [facility] [address] [place] [address] Dr. Claire Mayes MTD Negative Normal NEGATIVE [facility] Comment on above: Performed By: #### D RUGRPD #### [facility] [address] [place] [address] Dr. Claire Mayes OPI Negative Normal NEGATIVE [facility] Comment on above: Performed By: #### D RUGRPD #### [facility] [address] [place] [address] Dr. Claire Mayes OXY Negative Normal NEGATIVE [facility] Comment on above: Performed By: #### D RUGRPD #### [facility] [address] [place] [address] Dr. Claire Mayes PCP Negative Normal NEGATIVE [facility] Comment on above: Performed By: #### D RUGRPD #### [facility] [address] [address] [address] Claire Mayes PPX Negative Normal NEGATIVE [facility] Comment on above: Performed By: #### D RUGRPD #### [facility] [address] [address] [address] Claire Mayes TCA Negative Normal NEGATIVE [facility] Comment on above: Performed By: #### D RUGRPD #### [facility] [address] [place] [address] Dr. Claire Mayes THC Negative Normal NEGATIVE [facility] Comment on above: Performed By: #### D RUGRPD #### [facility] [address] [place] [address] Dr. Claire Mayes TYPE AND SCREENon 02-18-2022 TYPE AND SCREEN Negative Normal [facility] Comment on above: Performed By: #### T NS #### [facility] [address] [place] [address] Dr. Claire Mayes US PREG BIOPHY W [...] by: JESSE THOMAS Date: 2022-02-17 14:27 Normal [facility] US PREG BIOPHY W NON STRESSo [...] by: BLU FELIPE Date: 2022-02-10 16:40 Normal [facility] GROUP B STREP CULTUREon 01-14 S. agalactiae Ag Ql (Unsp spec) Culture Observations: Beta Strep called to Belgica Lange at office 02/04/22 @[address] [address] Isolate 1 Streptococcus agalactiae Heavy growth of ORGANISM 1 Streptococcus agalactiae ANTIBIOTIC M.I.C RX STATUS Benzylpenicillin <=0.06 S F Ampicillin <=0.25 S F Cefotaxime <=0.12 S F Ceftriaxone <=0.12 S F Levofloxacin 0.5 S F Erythromycin 2 R F Clindamycin <=0.25 S F Linezolid <=2 S F Vancomycin 0.5 S F Tetracycline >=16 R F Normal [facility] Comment on above: Performed By: #### G BSCX #### [facility] [address] [place] [address] Dr. Claire Mayes US PREG BIOPHY W [...] JESSE THOMAS Date: 2022-02-03 16:02 Normal [facility] LMPon 06-19-2021 Last menstrual period start date [id number] RJ-MDXIZ-Nkqca n 310 IVF Work Phone: MANAGER POOL - Office Visiton MANAGER POOL - Office Visit Diagnoses/Problems Assessed Irregular menses (626.4) (N92.6) Female infertility (628.9) (N97.9) Protein S deficiency (289.81) (D68.59) Occupation [employer] ED Provider Impressions 30 year-old desires [...] ] Imaging: Saline US, can do at [facility] [x ] Vitamin D, TSH, prolactin [ [...] contour on HSG - images reviewed from [facility] 08/2018 Uterine Cavity Evaluation: Normal uterine cavity [...] Peak E2 1871--> IM P4--> successful 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 Hx: LMP: 05/29/21 Menstrual cycles: Have been fairly regular for the past 3 months; 30-35 days Pap smear: 2018, up to date Mammogram: None PMH/Surg Hx/Social Hx: See below Hx of Clotting disorders: Yes- Protein S deficiency Currently on Lovenox 40 mg daily Was on Lovenox 60 mg daily prior to Needs to be on therapeutic dosing when Genetic Screening Hx: [email or web address] foresight screen negative Partner History: Franklin Ashley 04/09/1990 SA in past year: 2.8 cc 125 mil/mL 69% motility AKT=563 million (recent IUI sample) Morph from original SA was 2.8% Active Problems Problems 16 weeks gest (more content not included)... Normal [employer] CBC AND DIFFERENTIALon 08-06 % AUTOMATED IMMATURE GRAN 0.3 % Normal 0.0 - 0.9 [facility] Comment on above: Result Comment: Graciela ture Granulocyte Count (IG) includes promyelocytes, myelocytes and metamyelocytes but does not include bands. Percent differential counts (%) should be interpreted in the context of the absolute cell counts (cells/L). Performed By: #### C BCDF #### [address] [place] [address] Basophils (Bld) [#/Vol] 0.09 10*3/uL Normal 0.00 - 0.10 [facility] Comment on above: Performed By: #### C BCDF #### [address] [place] [address] Basophils/100 WBC (Bld) 0.9 % Normal 0.0 - 2.0 [facility] Comment on above: Performed By: #### C BCDF #### [address] [place] [address] Eosinophils (Bld) [#/Vol] 0.23 10*3/uL Normal 0.00 - 0.70 [facility] Comment on above: Performed By: #### C BCDF #### [address] [place] [address] Eosinophils/100 WBC (Bld) 2.4 % Normal 0.0 - 6.0 [facility] Comment on above: Performed By: #### C BCDF #### [address] [place] [address] Erythrocyte distribution width (RBC) [Ratio] 14.3 % Normal 11.5 - 14.5 [facility] Comment on above: Performed By: #### C BCDF #### [address] [place] [address] Hematocrit (Bld) [Volume fraction] 40.4 % Normal 36.0 - 46.0 [facility] Comment on above: Performed By: #### C BCDF #### [address] [place] [address] Hemoglobin (Bld) [Mass/Vol] 12.9 g/dL Normal 12.0 - 16.0 [facility] Comment on above: Performed By: #### C BCDF #### [address] [place] [address] Lymphocytes (Bld) [#/Vol] 2.44 10*3/uL Normal 1.20 - 4.80 [facility] Comment on above: Performed By: #### C BCDF #### [address] [place] [address] Lymphocytes/100 WBC (Bld) 25.7 % Normal 13.0 - 44.0 [facility] Comment on above: Performed By: #### C BCDF #### [address] [place] [address] MCHC (RBC) [Mass/Vol] 31.9 g/dL Low 32.0 - 36.0 [facility] Comment on above: Performed By: #### C BCDF #### [address] [place] [address] MCV (RBC) [Entitic vol] 88 fL Normal 80 - 100 [facility] Comment on above: Performed By: #### C BCDF #### [address] [place] [address] Monocytes (Bld) [#/Vol] 0.55 10*3/uL Normal 0.10 - 1.00 [facility] Comment on above: Performed By: #### C BCDF #### [address] [place] [address] Monocytes/100 WBC (Bld) 5.8 % Normal 2.0 - 10.0 [facility] Comment on above: Performed By: #### C BCDF #### [address] [place] [address] Neutrophils (Bld) [#/Vol] 6.15 10*3/uL Normal 1.20 - 7.70 [facility] Comment on above: Performed By: #### C BCDF #### [address] [place] [address] Neutrophils/100 WBC (Bld) 64.9 % Normal 40.0 - 80.0 [facility] Comment on above: Performed By: #### C BCDF #### [address] [place] [address] Platelets (Bld) [#/Vol] 410 10*3/uL Normal 150 - 450 [facility] Comment on above: Performed By: #### C BCDF #### [address] [place] [address] RBC (Bld) [#/Vol] 4.58 x10E12/L Normal 4.00 - 5.20 [facility] Comment on above: Performed By: #### C BCDF #### [address] [place] [address] WBC (Bld) [#/Vol] 9.5 10*3/uL Normal 4.4 - 11.3 [facility] Comment on above: Performed By: #### C BCDF #### [address] [place] [address] MANAGER POOL - Visiton 08-06-2020 MANAGER POOL - Visit Chief Complaint The patient is [...] with LMWH and has 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 Reports her asthma is stable. 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 She has Hematology follow-up today following our [...] WBC (Bld) 0.5 % 0.0 - 2.0 KD-DXPYK-Yarkm[address] Work Phone: Eosinophils (Bld) [#/Vol] 0.24 {x10E9/L} See Below ET-ISWNC-Kjpnv[address] Work Phone: Comment on above: Reference Range: 0.0 0 - 0.70 Eosinophils/100 WBC (Bld) 1.1 % 0.0 - 6.0 VI-HNJOI-Rcgzk[address] Work Phone: Erythrocyte distribution width (RBC) [Ratio] 15.0 % above high threshold See Below AV-BXORX-Uwpfn[address] Work Phone: Comment on above: Reference Range: 11. 5 - 14.5 Hematocrit (Bld) [Volume fraction] 30.0 % below low threshold See Below CU-FYISR-Xexik[address] Work Phone: Comment on above: Reference Range: 36. 0 - 46.0 Hemoglobin (Bld) [Mass/Vol] 9.8 g/dL below low threshold See Below MU-WMRGK-Qkdzn[address] Work Phone: Comment on above: Reference Range: 12. 0 - 16.0 Lymphocytes (Bld) [#/Vol] 2.25 {x10E9/L} See Below CJ-JMSTF-Gsisa wn 2nd Fl Work Phone: Comment on above: Reference Range: 1.2 0 - 4.80 Lymphocytes/100 WBC (Bld) 10.4 % See Below SV-VONBP-Nluzl wn 2nd Fl Work Phone: Comment on above: Reference Range: 13. 0 - 44.0 MCHC (RBC) [Mass/Vol] 32.7 g/dL See Below WN-KVZRW-Dzeak wn 2nd Fl Work Phone: Comment on above: Reference Range: 32. 0 - 36.0 MCV (RBC) [Entitic vol] 91 fL 80 - 100 RZ-DNXRJ-Paayb wn 2nd Fl Work Phone: Monocytes (Bld) [#/Vol] 0.84 {x10E9/L} See Below EL-JJGDU-Uljyn wn 2nd Fl Work Phone: Comment on above: Reference Range: 0.1 0 - 1.00 Monocytes/100 WBC (Bld) 3.9 % 2.0 - 10.0 VH-UDRST-Bhkjl wn 2nd Fl Work Phone: Neutrophils/100 WBC (Bld) 82.7 % See Below IC-GSYLD-Kkefm wn 2nd Fl Work Phone: Comment on above: Reference Range: 40. 0 - 80.0 Platelets (Bld) [#/Vol] 225 {x10E9/L} 150 - 450 OS-UDSUO-Ikova wn 2nd Fl Work Phone: RBC (Bld) [#/Vol] 3.31 {x10E12/L} below low threshold See Below KJ-JKJXB-Eqvxl wn 2nd Fl Work Phone: Comment on above: Reference Range: 4.0 0 - 5.20 WBC (Bld) [#/Vol] 0.0 {/100_WBC} 0.0-0.0 MG- OBGYN-[facility] 2nd Fl Work Phone: WBC (Bld) [#/Vol] 21.6 {x10E9/L} above high threshold 4.4 - 11.3 IS-KWSIB-Cypcp[address] Work Phone: Complete Blood Count + Differential 0.11 {x10E9/L} above high threshold See Below YN-LVCTD-Qgnsr[address] Work Phone: Comment on above: Reference Range: 0.0 0 - 0.10 Complete Blood Count + Differential 1.4 % above high threshold 0.0 - 0.9 ZR-IZSIY-Blkfm[address] Work Phone: Comment on above: Immature Granulocyte Count (IG) includes promyelocytes, myelocytes and metamyelocytes but does not include bands. Percent differential counts (%) should be interpreted in the context of the absolute cell counts (cells/L). Complete Blood Count + Differential 17.85 {x10E9/L} above high threshold See Below TF-BUELS-Qkdyv[address] Work Phone: Comment on above: Reference Range: 1.2 0 - 7.70 Hematologyon 06-26-2020 Hematocrit (Bld) [Volume fraction] 30.5 % below low threshold See Below BX-HGBUH-Hkevt[address] Work Phone: Comment on above: Reference Range: 36. 0 - 46.0 Hemoglobin (Bld) [Mass/Vol] 10.7 g/dL below low threshold See Below CU-IEZCB-Diltp[address] Work Phone: Comment on above: Reference Range: 12. 0 - 16.0 MCV (RBC) [Entitic vol] 84 fL 80 - 100 TT-SGHXG-Tmtxi[address] Work Phone: Platelets (Bld) [#/Vol] 258 {x10E9/L} 150 - 450 AC-VWCGN-Jpxwn[address] Work Phone: RBC (Bld) [#/Vol] 3.62 {x10E12/L} below low threshold See Below KK-VHEZY-Hvlsm wn 2nd Fl Work Phone: Comment on above: Reference Range: 4.0 0 - 5.20 WBC (Bld) [#/Vol] 0.0 {/100_WBC} 0.0-0.0 MG- OBGYN-[facility] 2nd Fl Work Phone: WBC (Bld) [#/Vol] 35.7 {x10E9/L} above high threshold 4.4 - 11.3 VH-OSMRO-Sessn wn 2nd Fl Work Phone: Otheron 06-26-2020 Erythrocyte distribution width (RBC) [Ratio] 14.6 % above high threshold See Below PG-LQARB-Xydyp wn 2nd Fl Work Phone: Comment on above: Reference Range: 11. 5 - 14.5 MCHC (RBC) [Mass/Vol] 35.1 g/dL See Below KO-FLAYU-Zczxk 2nd Fl Work Phone: Comment on above: [...] 3.5 cm, located 1.0 cm from themargin. Cashiers Supervisor sections are submitted in 5 cassettes.AXQ/LMPSummary of Cassettes:Specimen Label SiteA 1 umbilical cord sections 2 membrane rolls 3 placental parenchyma, umbilical cord insertion site 4 placental parenchyma 5 placental parenchyma, lesionaxq/06/26/2020 WL-JCHIY-Jrpcz wn 2nd Fl Work Phone: Coronavirus 2019 RNA by PCR, Symptomaticon 06-25-2020 Coronavirus 2019 RNA by PCR, Symptomatic NOT DETECTED See Below RP-ZLHOS-Twrzu 2nd Ga Work Phone: Comment on above: SOURCE: Nasal, [...] this test method. Fact sheet for providers: www.fda.gov/media/429065/downloadFact sheet for patients: www.fda.gov/media/543776/downloadThis test has received FDA Emergency Use Authorization (EUA) and has been verified by [facility]). This test is only authorized for [...] complexity testing. Testing is performed in the [facility] laboratories located at [address] [place] [address]. Hematologyon 06-25-2020 ABO group Nom (Bld) A [address] Work Phone: Blood group antibody screen Ql Negative [address] Work Phone: Hematocrit (Bld) [Volume fraction] 34.7 % below low threshold See Below [address] Work Phone: Comment on above: Reference Range: 36. 0 - 46.0 Hemoglobin (Bld) [Mass/Vol] 11.6 g/dL below low threshold See Below LU-KGLWB-Rzikm[address] Work Phone: Comment on above: Reference Range: 12. 0 - 16.0 MCV (RBC) [Entitic vol] 90 fL 80 - 100 XQ-IAGZQ-Qougz[address] Work Phone: Platelets (Bld) [#/Vol] 268 {x10E9/L} 150 - 450 CC-VBSVQ-Ogjdt[address] Work Phone: RBC (Bld) [#/Vol] 3.85 {x10E12/L} below low threshold See Below XR-SXJZC-Tljcu[address] Work Phone: Comment on above: Reference Range: 4.0 0 - 5.20 Rh immune globulin screen (Bld) [Interp] Positive OZ-NGTIH-Qeqvt[address] Work Phone: WBC (Bld) [#/Vol] 0.0 {/100_WBC} 0.0-0.0 [facility] OBGYN[address] Work Phone: WBC (Bld) [#/Vol] 15.5 {x10E9/L} above high threshold 4.4 - 11.3 YD-KTYAN-Ffdjt[address] Work Phone: Otheron 06-25-2020 Erythrocyte distribution width (RBC) [Ratio] 14.4 % See Below GV-SVXRC-Tqpjo[address] Work Phone: Comment on above: Reference Range: 11. 5 - 14.5 MCHC (RBC) [Mass/Vol] 33.4 g/dL See Below [address] Work Phone: Comment on above: Reference Range: 32. 0 - 36.0 SYPHILIS SCREENING WITH REFL EXon 06-25-2020 T. pallidum IgG+IgM IA Ql (S) NONREACTIVE See Below [address] Work Phone: Comment on above: SOURCE: Reference Ra nge: NONREACTIVENo significant level of Treponema pallidum antibody detected. Repeat testing in 2 to 4 weeks may be considered if early infection or incubating syphilis infection is suspected. Imm/Pathon 06-07-2020 Bacteria identified Aer cx Nom (Genital specimen) PATIENT: KIARA ASHLEY LOCATION: [facility] BILL#: [id number] : 89 AGE: SEX: F ORDERED BY: PARAS GUEVARA: VAGINAL COLLECTED: 06/07/20 09:36ANTIBIOTICS AT ADRIEN[place].: RECEIVED : 06/08/20 07:27SITE: VAGINAL R E S U L T S GROUP B STREP SCREEN PRELIM 06/09/20 08:35 CULTURE IN PROGRESS. QD-BEEUK-JMU [address] [place] Work Phone: Bacteria identified Aer cx Nom (Genital specimen) PATIENT: KIARA ASHLEY [place] [facility] [place] BILL#: [id number] : 89 AGE: SEX: F ORDERED BY: PARAS GUEVARA: VAGINAL COLLECTED: 06/07/20 09:36ANTIBIOTICS AT ADRIEN[place].: RECEIVED : 06/08/20 07:27SITE: VAGINAL R E S U L T S GROUP B STREP SCREEN FINAL 06/10/20 11:54 NEGATIVE FOR GROUP B BETA STREP. WY-PQCMZ-Zhpai wn 2nd Fl Work Phone: Otheron 06-07-2020 [...] signed by: RILEY TREVIÑO 06/07/20 09:33 Normal NB-YTQXN-GXI [address] [place] Work Phone: Comment on above: ORDER REVISED TO A O B FOLLOW UP OR REPEAT SCAN BY RADIOLOGIST; Original Order Number: [id number] CBC AND DIFFERENTIALon 04-24 % AUTOMATED IMMATURE GRAN 1.9 % High 0.0 - 0.9 [facility] Comment on above: Result Comment: Graciela ture Granulocyte Count (IG) includes promyelocytes, myelocytes and metamyelocytes but does not include bands. Percent differential counts (%) should be interpreted in the context of the absolute cell counts (cells/L). Performed By: #### C BCDF #### [address] [place] [address] Basophils (Bld) [#/Vol] 0.08 10*3/uL Normal 0.00 - 0.10 [facility] Comment on above: Performed By: #### C BCDF #### [address] [place] [address] Basophils/100 WBC (Bld) 0.5 % Normal 0.0 - 2.0 [facility] Comment on above: Performed By: #### C BCDF #### [address] [place] [address] Eosinophils (Bld) [#/Vol] 0.22 10*3/uL Normal 0.00 - 0.70 [facility] Comment on above: Performed By: #### C BCDF #### [address] [place] [address] Eosinophils/100 WBC (Bld) 1.5 % Normal 0.0 - 6.0 [facility] Comment on above: Performed By: #### C BCDF #### [address] [place] [address] Erythrocyte distribution width (RBC) [Ratio] 14.0 % Normal 11.5 - 14.5 [facility] Comment on above: Performed By: #### C BCDF #### [address] [place] [address] Hematocrit (Bld) [Volume fraction] 35.6 % Low 36.0 - 46.0 [facility] Comment on above: Performed By: #### C BCDF #### [address] [place] [address] Hemoglobin (Bld) [Mass/Vol] 11.8 g/dL Low 12.0 - 16.0 [facility] Comment on above: Performed By: #### C BCDF #### [address] [place] [address] Lymphocytes (Bld) [#/Vol] 2.38 10*3/uL Normal 1.20 - 4.80 [facility] Comment on above: Performed By: #### C BCDF #### [address] [place] [address] Lymphocytes/100 WBC (Bld) 16.0 % Normal 13.0 - 44.0 [facility] Comment on above: Performed By: #### C BCDF #### [address] [place] [address] MCHC (RBC) [Mass/Vol] 33.1 g/dL Normal 32.0 - 36.0 [facility] Comment on above: Performed By: #### C BCDF #### [address] [place] [address] MCV (RBC) [Entitic vol] 92 fL Normal 80 - 100 [facility] Comment on above: Performed By: #### C BCDF #### [address] [place] [address] Monocytes (Bld) [#/Vol] 0.74 10*3/uL Normal 0.10 - 1.00 [facility] Comment on above: Performed By: #### C BCDF #### [address] [place] [address] Monocytes/100 WBC (Bld) 5.0 % Normal 2.0 - 10.0 [facility] Comment on above: Performed By: #### C BCDF #### [address] [place] [address] Neutrophils (Bld) [#/Vol] 11.17 10*3/uL High 1.20 - 7.70 [facility] Comment on above: Performed By: #### C BCDF #### [address] [place] [address] Neutrophils/100 WBC (Bld) 75.1 % Normal 40.0 - 80.0 [facility] [place] Comment on above: Performed By: #### C BCDF #### [address] [place] [address] Platelets (Bld) [#/Vol] 285 10*3/uL Normal 150 - 450 [facility] [place] Comment on above: Performed By: #### C BCDF #### [address] [place] [address] RBC (Bld) [#/Vol] 3.89 x10E12/L Low 4.00 - 5.20 [facility] [place] Comment on above: Performed By: #### C BCDF #### [address] [place] [address] WBC (Bld) [#/Vol] 14.9 10*3/uL High 4.4 - 11.3 [facility] Comment on above: Performed By: #### C BCDF #### [address] [place] [address] COMPREHENSIVE PANELon 2019 ALP [Catalytic activity/Vol] 79 U/L Normal 33 - 110 [facility] [place] Comment on above: Performed By: #### C MP #### [address] [place] [address] [address] ALT [Catalytic activity/Vol] 7 U/L Normal 7 - 45 [facility] [place] Comment on above: Result Comment: Melida ents treated with Sulfasalazine may generate falsely decreased results for ALT. Performed By: #### C MP #### [address] [place] [address] [address] AST [Catalytic activity/Vol] 13 U/L Normal 9 - 39 [facility] [place] Comment on above: Performed By: #### C MP #### [address] [place] [address] [place] [address] Bilirubin [Mass/Vol] 0.3 mg/dL Normal 0.0 - 1.2 [facility] [place] Comment on above: Performed By: #### C MP #### [address] [place] [address] [place] [address] Protein [Mass/Vol] 5.9 g/dL Low 6.4 - 8.2 [facility] [place] Comment on above: Performed By: #### C MP #### [address] [place] [address] [place] [address] Anion gap [Moles/Vol] 12 mmol/L Normal 10 - 20 [facility] Comment on above: Performed By: #### C MP #### [address] [place] [address] [place] [address] Chloride [Moles/Vol] 106 mmol/L Normal 98 - 107 [facility] [place] Comment on above: Performed By: #### C MP #### [address] [place] [address] [place] [address] Potassium [Moles/Vol] 3.7 mmol/L Normal 3.5 - 5.3 [facility] [place] Comment on above: Performed By: #### C MP #### [address] [place] [address] [place] [address] Sodium [Moles/Vol] 137 mmol/L Normal 136 - 145 [facility] [place] Comment on above: Performed By: #### C MP #### [address] [place] [address] [place] [address] Calcium [Mass/Vol] 9.2 mg/dL Normal 8.6 - 10.3 [facility] [place] Comment on above: Performed By: #### C MP #### [address] [place] [address] [place] [address] Glucose [Mass/Vol] 95 mg/dL Normal 74 - 99 [facility] [place] Comment on above: Performed By: #### C MP #### [address] [place] [address] [place] [address] Urea nitrogen [Mass/Vol] 7 mg/dL Normal 6 - 23 [facility] Comment on above: Performed By: #### C MP #### [address] [place] [address] [place] [address] Albumin [Mass/Vol] 3.4 g/dL Normal 3.4 - 5.0 [facility] [place] Comment on above: Performed By: #### C MP #### [address] [place] [address] [place] [address] Creatinine [Mass/Vol] 0.70 mg/dL Normal 0.50 - 1.05 [facility] [place] Comment on above: Performed By: #### C MP #### [address] [place] [address] [place] [address] GFR- AM. >60 Normal >60 [facility] Comment on above: Result Comment: CALC ULATIONS OF ESTIMATED GFR ARE PERFORMED USING THE MDRD STUDY EQUATION FOR THE IDMS-TRACEABLE CREATININE METHODS. CLIN CHEM 2007;53:766-72 Performed By: #### C MP #### [address] [place] [address] [place] [address] GFR-NON AM. >60 Normal >60 [facility] Comment on above: Performed By: #### C MP #### [address] [place] [address] [place] [address] HCO3 (Bld) [Moles/Vol] 23 mmol/L Normal 21 - 32 [facility] Comment on above: Performed By: #### C MP #### [address] [place] [address] [place] [address] FERRITINon 04-24-2020 Ferritin [Mass/Vol] 8 ug/L Normal 8 - 150 [facility] Comment on above: Performed By: #### F ERRI #### [address] [place] [address] IRON + TIBCon 04-24-2020 % SATURATION 14 % Low 25 - 45 [facility] Comment on above: Performed By: #### I RONT #### [address] [place] [address] Iron [Mass/Vol] 65 ug/dL Normal 35 - 150 [facility] Comment on above: Performed By: #### I RONT #### [address] [place] [address] TIBC 449 ug/dL High 240 - 445 [facility] Comment on above: Performed By: #### I RONT #### [address] [place] [address] Complete Blood Count + Diffe rentialon 12-25-2019 Basophils/100 WBC (Bld) 1.0 % 0.0 - 2.0 XI-XZFJB-ZYX 1200 [place] Work Phone: Eosinophils (Bld) [#/Vol] 0.37 {x10E9/L} See Below SE-OTGQJ-HBF 1200 [place] Work Phone: Comment on above: Reference Range: 0.0 0 - 0.70 Eosinophils/100 WBC (Bld) 3.0 % 0.0 - 6.0 MG-KQICF-NWO 1200 [place] Work Phone: Erythrocyte distribution width (RBC) [Ratio] 13.4 % See Below RR-MEGXX-FHC 1200 [place] Work Phone: Comment on above: Reference Range: 11. 5 - 14.5 Hematocrit (Bld) [Volume fraction] 41.8 % See Below EP-UUXDP-YGN 1200 [place] Work Phone: Comment on above: Reference Range: 36. 0 - 46.0 Hemoglobin (Bld) [Mass/Vol] 13.6 g/dL See Below TR-ETRGH-BPV 1200 [place] Work Phone: Comment on above: Reference Range: 12. 0 - 16.0 Lymphocytes (Bld) [#/Vol] 2.52 {x10E9/L} See Below XW-DZXXN-AAU 1200 [place] Work Phone: Comment on above: Reference Range: 1.2 0 - 4.80 Lymphocytes/100 WBC (Bld) 20.2 % See Below EG-BACIT-UMT 1200 [place] Work Phone: Comment on above: Reference Range: 13. 0 - 44.0 MCHC (RBC) [Mass/Vol] 32.5 g/dL See Below UU-LGHTH-MCM 1200 [place] Work Phone: Comment on above: Reference Range: 32. 0 - 36.0 MCV (RBC) [Entitic vol] 95 fL 80 - 100 UA-OEOEB-QTB 1200 [place] Work Phone: Monocytes (Bld) [#/Vol] 0.58 {x10E9/L} See Below GY-NKHDI-UFE 1200 [place] Work Phone: Comment on above: Reference Range: 0.1 0 - 1.00 Monocytes/100 WBC (Bld) 4.6 % 2.0 - 10.0 BG-QYAAA-MPE 1200 [place] Work Phone: Neutrophils/100 WBC (Bld) 70.6 % See Below XO-XOQXW-FDM 1200 [place] Work Phone: Comment on above: Reference Range: 40. 0 - 80.0 Platelets (Bld) [#/Vol] 372 {x10E9/L} 150 - 450 QP-HKGPT-XMH 1200 [place] Work Phone: RBC (Bld) [#/Vol] 4.40 {x10E12/L} See Below MG -OBGYN-MAC 1200 [place] Work Phone: Comment on above: Reference Range: 4.0 0 - 5.20 WBC (Bld) [#/Vol] 0.0 {/100_WBC} 0.0-0.0 MG- OBGYN-MAC 1200 [place] Work Phone: WBC (Bld) [#/Vol] 12.7 {x10E9/L} above high threshold 4.4 - 11.3 ZC-RUCBT-VBP 1200 [place] Work Phone: Comment on above: SOURCE: Complete Blood Count + Differential 8.81 {x10E9/L} above high threshold See Below GK-XKBPZ-WYP 1200 [place] Work Phone: Comment on above: Reference Range: 1.2 0 - 7.70 Complete Blood Count + Differential 0.6 % 0.0 - 0.9 HI-UHDQC-AEU 1200 [place] Work Phone: Comment on above: Percent differential counts (%) should be interpreted in the context of the absolute cell counts (cells/L). Complete Blood Count + Differential 0.13 {x10E9/L} above high threshold See Below OF-EQMGB-EDO 1200 [place] Work Phone: Comment on above: Reference Range: 0.0 0 - 0.10 Cult, Urineon 12-25-2019 Bacteria identified Cx Nom (U) PATIENT: KIARA ASHLEY LOCATION: C0646 BILL#: [id number] : 89 AGE: SEX: F ORDERED BY: PARAS GUEVARA: URINE COLLECTED: 12/25/19 09:41ANTIBIOTICS AT [facility].: RECEIVED : 12/25/19 17:06SITE: Clean Catch/Voided R E S U L T S URINE CULTURE,BACTERIAL FINAL 12/26/19 10:21 NO SIGNIFICANT GROWTH. TJ-ZFLQB-TSJ 1200 [place] Work Phone: Hematologyon 12-25-2019 ABO group Nom (Bld) A VY-UALLF-IXE 1200 [place] Work Phone: Blood group antibody screen Ql Negative GK-HDFBS-SQZ 1200 [place] Work Phone: Rh immune globulin screen (Bld) [Interp] Positive HC-MMPTC-SDM 1200 [place] Work Phone: Hepatitis B Surface Antigeno n 12-25-2019 Hepatitis B Surface Antigen NONREACTIVE See Below NQ-MKXED-RUX 1200 [place] Work Phone: Comment on above: [...] Hepatitis C Antibody Test NON-REACTIVE See Below RE-ZEXFS-HBY 1200 [place] Work Phone: Comment on above: SOURCE: Reference Ra nge: NONREACTIVE Patients receiving more than 5 mg/day of biotin may have interference in test results. A sample should be taken no sooner than eight hours after previous dose. Contact the testing laboratory for additional information. Metabolic Panelon 12-25-2019 ALP [Catalytic activity/Vol] 67 U/L 33 - 110 MN-CNVAB-VFG 1200 [place] Work Phone: Anion gap [Moles/Vol] 15 mmol/L 10 - 20 SR-YVXVZ-JKO 1200 [place] Work Phone: Bilirubin [Mass/Vol] 0.3 mg/dL 0.0 - 1.2 RU-NRTYO-HZV 1200 [place] Work Phone: Calcium [Mass/Vol] 9.6 mg/dL 8.6 - 10.6 WL-ZMANB-YMM 1200 [place] Work Phone: Chloride [Moles/Vol] 104 mmol/L 98 - 107 HN-GKBFT-WXE 1200 [place] Work Phone: CO2 [Moles/Vol] 21 mmol/L 21 - 32 MG-OBGYN- MAC 1200 [place] Work Phone: Creatinine [Mass/Vol] 0.69 mg/dL See Below XQ-RIYMH-FVV 1200 [place] Work Phone: Comment on above: Reference Range: 0.5 0 - 1.05 Glucose [Mass/Vol] 83 mg/dL 74 - 99 PZ-GAAVP-TZZ 1200 [place] Work Phone: Comment on above: SOURCE: Potassium [Moles/Vol] 4.1 mmol/L 3.5 - 5.3 EI-LGUOV-TOH 1200 [place] Work Phone: Protein [Mass/Vol] 6.2 g/dL below low threshold 6.4 - 8.2 HY-SDIKX-GJT 1200 [place] Work Phone: Sodium [Moles/Vol] 136 mmol/L 136 - 145 DY-RAVQC-IDT 1200 [place] Work Phone: Urea nitrogen [Mass/Vol] 9 mg/dL 6 - 23 BM-EXNMO-VYX 1200 [place] Work Phone: Otheron 12-25-2019 Albumin BCP dye [Mass/Vol] 3.9 g/dL 3.4 - 5.0 IR-RNBZJ-RJL 1200 [place] Work Phone: ALT With P-5'-P [Catalytic activity/Vol] 8 U/L 7 - 45 QT-OLKPM-JON 1200 [place] Work Phone: Comment on above: Patients treated wit h Sulfasalazine may generate falsely decreased results for ALT. AST With P-5'-P [Catalytic activity/Vol] 11 U/L 9 - 39 SW-FAAZS-MGK 1200 [place] Work Phone: NONE BH-AALEY-OEN 1200 [place] Work Phone: >60 >60 GE-UCQDC-DDW 1200 [place] Work Phone: Comment on above: CALCULATIONS OF MARÍA MATED GFR ARE PERFORMED USING THE MDRD STUDY EQUATION FOR THE IDMS-TRACEABLE CREATININE METHODS. CLIN CHEM 2007;53:766-72 SYPHILIS SCREENING WITH REFL EXon 12-25-2019 T. pallidum IgG+IgM IA Ql (S) NONREACTIVE See Below EC-KTKYS-GVP 1200 [place] Work Phone: Comment on above: SOURCE: Reference Ra nge: NONREACTIVENo significant level of Treponema pallidum antibody detected. Repeat testing in 2 to 4 weeks may be considered if early infection or incubating syphilis infection is suspected. CBC AND DIFFERENTIALon 11-21 % AUTOMATED IMMATURE GRAN 0.9 % Normal 0.0 - 0.9 [facility] Comment on above: Result Comment: Perc ent differential counts (%) should be interpreted in the context of the absolute cell counts (cells/L). Performed By: #### C BCDF #### [address] [place] [address] Basophils (Bld) [#/Vol] 0.16 10*3/uL High 0.00 - 0.10 [facility] Comment on above: Performed By: #### C BCDF #### [address] [place] [address] Basophils/100 WBC (Bld) 1.2 % Normal 0.0 - 2.0 [facility] Comment on above: Performed By: #### C BCDF #### [address] [place] [address] Eosinophils (Bld) [#/Vol] 0.80 10*3/uL High 0.00 - 0.70 [facility] [place] Comment on above: Performed By: #### C BCDF #### [address] [place] [address] Eosinophils/100 WBC (Bld) 5.8 % Normal 0.0 - 6.0 [facility] Comment on above: Performed By: #### C BCDF #### [address] [place] [address] Erythrocyte distribution width (RBC) [Ratio] 13.6 % Normal 11.5 - 14.5 [facility] Comment on above: Performed By: #### C BCDF #### [address] [place] [address] Hematocrit (Bld) [Volume fraction] 39.4 % Normal 36.0 - 46.0 [facility] Comment on above: Performed By: #### C BCDF #### [address] [place] [address] Hemoglobin (Bld) [Mass/Vol] 13.0 g/dL Normal 12.0 - 16.0 [facility] Comment on above: Performed By: #### C BCDF #### [address] [place] [address] Lymphocytes (Bld) [#/Vol] 2.24 10*3/uL Normal 1.20 - 4.80 [facility] Comment on above: Performed By: #### C BCDF #### [address] [place] [address] Lymphocytes/100 WBC (Bld) 16.3 % Normal 13.0 - 44.0 [facility] Comment on above: Performed By: #### C BCDF #### [address] [place] [address] MCHC (RBC) [Mass/Vol] 33.0 g/dL Normal 32.0 - 36.0 [facility] Comment on above: Performed By: #### C BCDF #### [address] [place] [address] MCV (RBC) [Entitic vol] 94 fL Normal 80 - 100 [facility] Comment on above: Performed By: #### C BCDF #### [address] [place] [address] Monocytes (Bld) [#/Vol] 0.83 10*3/uL Normal 0.10 - 1.00 [facility] Comment on above: Performed By: #### C BCDF #### [address] [place] [address] Monocytes/100 WBC (Bld) 6.0 % Normal 2.0 - 10.0 [facility] Comment on above: Performed By: #### C BCDF #### [address] [place] [address] Neutrophils (Bld) [#/Vol] 9.60 10*3/uL High 1.20 - 7.70 [facility] Comment on above: Performed By: #### C BCDF #### [address] [place] [address] Neutrophils/100 WBC (Bld) 69.8 % Normal 40.0 - 80.0 [facility] Comment on above: Performed By: #### C BCDF #### [address] [place] [address] Platelets (Bld) [#/Vol] 380 10*3/uL Normal 150 - 450 [facility] Comment on above: Performed By: #### C BCDF #### [address] [place] [address] RBC (Bld) [#/Vol] 4.21 x10E12/L Normal 4.00 - 5.20 [facility] Comment on above: Performed By: #### C BCDF #### [address] [place] [address] WBC (Bld) [#/Vol] 13.8 10*3/uL High 4.4 - 11.3 [facility] Comment on above: Performed By: #### C BCDF #### [address] [place] [address] Complete Blood Count + Diffe martaon 11-14-2019 Basophils (Bld) [#/Vol] 0.05 {x10E9/L} See Below -Reproductiv e Endocrinology- [place] Work Phone: Comment on above: Reference Range: 0.0 0 - 0.10 Basophils/100 WBC (Bld) 0.4 % 0.0 - 2.0 MP-Reproductiv e Endocrinology- [place] Work Phone: Eosinophils (Bld) [#/Vol] 0.89 {x10E9/L} above high threshold See Below MP-Reproductiv e Endocrinology- [place] Work Phone: Comment on above: Reference Range: 0.0 0 - 0.70 Eosinophils/100 WBC (Bld) 7.3 % 0.0 - 6.0 MP-Reproductiv e Endocrinology- [place] Work Phone: Erythrocyte distribution width (RBC) [Ratio] 13.9 % See Below -Reproductiv e Endocrinology- [place] Work Phone: Comment on above: Reference Range: 11. 5 - 14.5 Hematocrit (Bld) [Volume fraction] 39.4 % See Below -Reproductiv e Endocrinology- [place] Work Phone: Comment on above: Reference Range: 36. 0 - 46.0 Hemoglobin (Bld) [Mass/Vol] 12.8 g/dL See Below -Reproductiv e Endocrinology- [place] Work Phone: Comment on above: Reference Range: 12. 0 - 16.0 Lymphocytes (Bld) [#/Vol] 2.13 {x10E9/L} See Below -Reproductiv e Endocrinology- [place] Work Phone: Comment on above: Reference Range: 1.2 0 - 4.80 Lymphocytes/100 WBC (Bld) 17.5 % See Below MP-Reproductiv e Endocrinology- [place] Work Phone: Comment on above: Reference Range: 13. 0 - 44.0 MCHC (RBC) [Mass/Vol] 32.5 g/dL See Below MP-Reproductiv e Endocrinology- [place] Work Phone: Comment on above: Reference Range: 32. 0 - 36.0 MCV (RBC) [Entitic vol] 95 fL 80 - 100 [facility] Work [facility]: Monocytes (Bld) [#/Vol] 0.60 {x10E9/L} See Below [facility] Work Phone: Comment on above: Reference Range: 0.1 0 - 1.00 Monocytes/100 WBC (Bld) 4.9 % 2.0 - 10.0 [facility]iv [facility] Work Phone: Neutrophils/100 WBC (Bld) 69.4 % See Below [facility] Work Phone: Comment on above: Reference Range: 40. 0 - 80.0 Platelets (Bld) [#/Vol] 423 {x10E9/L} 150 - 450 [facility] Work Phone: RBC (Bld) [#/Vol] 4.15 {x10E12/L} See Below MP [facility] Work Phone: Comment on above: Reference Range: 4.0 0 - 5.20 WBC (Bld) [#/Vol] 12.2 {x10E9/L} above high threshold 4.4 - 11.3 [facility] Work Phone: WBC (Bld) [#/Vol] 0.0 {/100_WBC} 0.0-0.0 MP- Reproductiv e Endocrinology- [place] Work Phone: Complete Blood Count + Differential 0.5 % 0.0 - 0.9 MP-Reproductiv e Endocrinology- [place] Work Phone: Comment on above: Percent differential counts (%) should be interpreted in the context of the absolute cell counts (cells/L). Complete Blood Count + Differential 8.42 {x10E9/L} above high threshold See Below MP-Reproductiv e Endocrinology- [place] Work Phone: Comment on above: Reference Range: 1.2 0 - 7.70 Metabolic Panelon 11-14-2019 ALP [Catalytic activity/Vol] 82 U/L 33 - 110 MP-Reproductiv e Endocrinology- [place] Work Phone: Anion gap [Moles/Vol] 19 mmol/L 10 - 20 MP-Reproductiv e Endocrinology- [place] Work Phone: Bilirubin [Mass/Vol] 0.4 mg/dL 0.0 - 1.2 MP-Reproductiv e Endocrinology- [place] Work Phone: Calcium [Mass/Vol] 9.5 mg/dL 8.6 - 10.6 MP-Reproductiv e Endocrinology- [place] Work Phone: Chloride [Moles/Vol] 100 mmol/L 98 - 107 MP-Reproductiv e Endocrinology- [place] Work Phone: CO2 [Moles/Vol] 20 mmol/L below low threshold 21 - 32 MP-Reproductiv e Endocrinology- [place] Work Phone: Creatinine [Mass/Vol] 0.80 mg/dL See Below MP-Reproductiv e Endocrinology- [place] Work Phone: Comment on above: Reference Range: 0.5 0 - 1.05 Glucose [Mass/Vol] 86 mg/dL 74 - 99 MP-Reproductiv e Endocrinology- [place] Work Phone: Potassium [Moles/Vol] 4.3 mmol/L 3.5 - 5.3 MP-Reproductiv e Endocrinology- [place] Work Phone: Protein [Mass/Vol] 5.8 g/dL below low threshold 6.4 - 8.2 MP-Reproductiv e Endocrinology- [place] Work Phone: Sodium [Moles/Vol] 135 mmol/L below low threshold 136 - 145 MP-Reproductiv e Endocrinology- [place] Work Phone: Urea nitrogen [Mass/Vol] 10 mg/dL 6 - 23 MP-Reproductiv e [facility] Work Phone: Otheron 11-14-2019 Albumin BCP dye [Mass/Vol] 3.5 g/dL 3.4 - 5.0 MP-Reproductiv e [facility] Work Phone: ALT With P-5'-P [Catalytic activity/Vol] 17 U/L 7 - 45 MP-Reproductiv e [facility] Work Phone: Comment on above: Patients treated wit h Sulfasalazine may generate falsely decreased results for ALT. AST With P-5'-P [Catalytic activity/Vol] 22 U/L 9 - 39 MP-Reproductiv e [facility] Work Phone: >60 >60 -Reproductiv [facility] Work Phone: Comment on above: CALCULATIONS OF MARÍA MATED GFR ARE PERFORMED USING THE MDRD STUDY EQUATION FOR THE IDMS-TRACEABLE CREATININE METHODS. CLIN CHEM 2007;53:766-72 CBCon 11-09-2019 Erythrocyte distribution width (RBC) [Ratio] 13.7 % See Below UH-GGEEB-Uwwlz n 310 [facility] Work Phone: Comment on above: Performed By: #### L H #### [facility] [address] [place] [address] Reference Range: 11. 5 - 14.5 Hematocrit (Bld) [Volume fraction] 41.9 % See Below QW-NLFOQ-Qehbp n 310 [facility] Work Phone: Comment on above: Performed By: #### L H #### [facility] [address] [place] [address] Reference Range: 36. 0 - 46.0 Hemoglobin (Bld) [Mass/Vol] 14.0 g/dL See Below LX-GBTVI-Slcbk n 310 [facility] Work Phone: Comment on above: Performed By: #### L H #### [facility] [address] [place] [address] Reference Range: 12. 0 - 16.0 MCHC (RBC) [Mass/Vol] 33.4 g/dL See Below XH-QCLLC-Vufmb n 310 [facility] Work Phone: Comment on above: Performed By: #### L H #### [facility] [address] [place] [address] Reference Range: 32. 0 - 36.0 MCV (RBC) [Entitic vol] 94 fL 80 - 100 MC-WEPUT-Lpxgz n 310 [facility] Work Phone: Comment on above: Performed By: #### L H #### [facility] [address] [place] [id number] Platelets (Bld) [#/Vol] 411 10*3/uL Normal 150 - 450 [facility] [place] Comment on above: Performed By: #### L H #### [facility] [address] [place] [id number] RBC (Bld) [#/Vol] 4.44 x10E12/L Normal 4.00 - 5.20 [facility] [place] Comment on above: Performed By: #### L H #### [facility] [address] [place] [id number] WBC (Bld) [#/Vol] 12.4 10*3/uL High 4.4 - 11.3 [facility] Comment on above: Performed By: #### L H #### [facility] [address] [place] [id number] COMPREHENSIVE PANELon 2018 Albumin [Mass/Vol] 3.8 g/dL Normal 3.4 - 5.0 [facility] [place] Comment on above: Performed By: #### L H #### [facility] [address] [place] [address] ALP [Catalytic activity/Vol] 51 U/L 33 - 110 XS-FRNRH-Dlnwh n 310 [facility] Work Phone: Comment on above: Performed By: #### L H #### [facility] [address] [place] [address] ALT [Catalytic activity/Vol] 12 U/L Normal 7 - 45 [facility] [place] Comment on above: Result Comment: Melida ents treated with Sulfasalazine may generate falsely decreased results for ALT. Performed By: #### L H #### [facility] [address] [place] [address] Anion gap [Moles/Vol] 13 mmol/L 10 - 20 EK-ADSDJ-Gxnzx n 310 [facility] Work Phone: Comment on above: Performed By: #### L H #### [facility] [address] [place] [id number] AST [Catalytic activity/Vol] 12 U/L Normal 9 - 39 [facility] [place] Comment on above: Performed By: #### L H #### [facility] [address] [place] [id number] Bilirubin [Mass/Vol] 0.4 mg/dL 0.0 - 1.2 HD-DIWVD-Nflvy n 310 IVF Work Phone: Comment on above: Performed By: #### L H #### [facility] [address] [place] [id number] Calcium [Mass/Vol] 9.3 mg/dL 8.6 - 10.3 ZR-XPJFO-Jyyxf n 310 IVF Work Phone: Comment on above: Performed By: #### L H #### [facility] [address] [place] [id number] Chloride [Moles/Vol] 102 mmol/L 98 - 107 FM-RMZDJ-Dqhjk n 310 IVF Work Phone: Comment on above: Performed By: #### L H #### [facility] [address] [place] [id number] Creatinine [Mass/Vol] 0.89 mg/dL See Below OS-PWCUI-Owceg n 310 IVF Work Phone: Comment on above: Performed By: #### L H #### [facility] [address] [place] [id number] Reference Range: 0.5 0 - 1.05 GFR- AM. >60 Normal >60 [facility] [place] Comment on above: Result Comment: CALC ULATIONS OF ESTIMATED GFR ARE PERFORMED USING THE MDRD STUDY EQUATION FOR THE IDMS-TRACEABLE CREATININE METHODS. CLIN CHEM 2007;53:766-72 Performed By: #### L H #### [facility] [address] [place] [address] GFR-NON AM. >60 Normal >60 [facility] [place] Comment on above: Performed By: #### L H #### [facility] [address] [place] [address] Glucose [Mass/Vol] 74 mg/dL 74 - 99 EM-ISXQO-Chxzy n 310 IVF Work Phone: Comment on above: Performed By: #### L H #### [facility] [address] [place] [address] HCO3 (Bld) [Moles/Vol] 25 mmol/L Normal 21 - 32 [facility] [place] Comment on above: Performed By: #### L H #### [facility] [address] [place] [address] Potassium [Moles/Vol] 4.1 mmol/L 3.5 - 5.3 YO-LKNIR-Kaovm n 310 IVF Work Phone: Comment on above: Performed By: #### L H #### [facility] [address] [place] [id number] Protein [Mass/Vol] 6.0 g/dL below low threshold 6.4 - 8.2 NH-TIIST-Fzvhd n 310 IVF Work Phone: Comment on above: Performed By: #### L H #### [facility] [address] [place] [id number] Sodium [Moles/Vol] 136 mmol/L 136 - 145 HV-IUODV-Cmsri n 310 IVF Work Phone: Comment on above: Performed By: #### L H #### [facility] [address] [place] [address] Urea nitrogen [Mass/Vol] 11 mg/dL 6 - 23 TH-PCOVI-Nscwp n 310 IVF Work Phone: Comment on above: Performed By: #### L H #### [facility] [address] [place] [address] HCG, Beta Quantitativeon HCG.beta subunit Qn 7102 {mIU/mL} Abnormal UH-HIPZW-Ertvp n 310 IVF Work Phone: Comment on [...] HCG measurement is performed using the [employer] Access Immunoassay which detects intact HCG and free beta HCG subunit. This test is not indicated for use as a tumor marker. HCG testing is performed using a different test methodology at [facility] than other [facility]. Direct result comparison should only be made within the same method. REF VALUESNON FEMALE <5MALES <5 HCG,BETA-QUANTITATIVEon - HCG,BETA-QUANTITA TIVE 7102 mIU/mL [facility] [place] Comment on above: Result Comment: [...] HCG measurement is performed using the [employer] Access Immunoassay which detects intact HCG and free beta HCG subunit. This test is not indicated for use as a tumor marker. HCG testing is performed using a different test methodology at [facility] than other [facility]. Direct result comparison should only be made within the same method. REF VALUES NON FEMALE <5 MALES <5 Performed By: #### L H #### [facility] [address] [place] [address] Hematologyon 11-09-2019 Platelets (Bld) [#/Vol] 411 {x10E9/L} 150 - 450 WF-EVSOJ-Dbmrm n 310 IVF Work Phone: RBC (Bld) [#/Vol] 4.44 {x10E12/L} See Below MG -OBGYN-Risma n 310 IVF Work Phone: Comment on above: Reference Range: 4.0 0 - 5.20 WBC (Bld) [#/Vol] 12.4 {x10E9/L} above high threshold 4.4 - 11.3 VI-YRCKD-Rbowi n 310 IVF Work Phone: Metabolic Panelon 11-09-2019 CO2 [Moles/Vol] 25 mmol/L 21 - 32 MG-OBGYN- Risma n 310 IVF Work Phone: Otheron 11-09-2019 Albumin BCP dye [Mass/Vol] 3.8 g/dL 3.4 - 5.0 OX-AILGI-Hupgc n 310 IVF Work Phone: ALT With P-5'-P [Catalytic activity/Vol] 12 U/L 7 - 45 WG-LOQZI-Pokxj n 310 IVF Work Phone: Comment on above: Patients treated wit h Sulfasalazine may generate falsely decreased results for ALT. AST With P-5'-P [Catalytic activity/Vol] 12 U/L 9 - 39 DZ-URABC-Izdnm n 310 IVF Work Phone: >60 >60 ZM-EULOP-Iaisb n 310 IVF Work Phone: Comment on [...] performed using a different test methodology at [facility] than other [facility]. Direct result comparison should only be made within the same method. REF VALUESNON FEMALE <5MALES <5 HCG,BETA-QUANTITATIVEon 10-15 HCG,BETA-QUANTITA TIVE 240 mIU/mL [facility] [place] Comment on above: Result Comment: [...] HCG measurement is performed using the [employer] Access Immunoassay which detects intact HCG and free beta HCG subunit. This test is not indicated for use as a tumor marker. HCG testing is performed using a different test methodology at [facility] than other [facility]. Direct result comparison should only be made within the same method. REF VALUES NON FEMALE <5 MALES <5 Performed By: #### E STRA #### [facility] [address] [place] [address] ESTRADIOLon 10-14-2019 ESTRADIOL 1871 pg/mL Normal [facility] [place] Comment on above: Result Comment: Estr adiol measurement is performed using the [employer] Access Immunoassay. Estradiol testing is performed using a different test methodology at [facility] than other [facility]. Direct result comparison should only be made within the same method. REF VALUES FOLLICULAR PHASE 20-144 MID CYCLE 64-357 LUTEAL PHASE 56-214 POSTMENOPAUSE < 32 PREPUBERTY < 20 MALE 10-18Y < 20 ADULT MALE < 40 Performed By: #### E STRA #### [facility] [address] [place] [address] Estradiol, Serumon 9 E2 [Mass/Vol] 1871 pg/mL MG-OBGYN-Ri sma n 310 IVF Work Phone: Comment on above: Estradiol measuremen t is performed using the [employer] Access Immunoassay. Estradiol testing is performed using a different test methodology at [facility] than other [facility]. Direct result comparison should only be made within the same method.REF VALUESFOLLICULAR PHASE 20-144MID CYCLE 64-357LUTEAL PHASE 56-214POSTMENOPAUSE < 32PREPUBERTY < 20MALE 10-18Y < 20ADULT MALE < 40 PROGESTERONEon 10-14-2019 PROGESTERONE 1.0 ng/mL Normal [facility] [place] Comment on above: Result Comment: Prog esterone is performed using the [employer] Access Immunoassay. Progesterone testing is performed using a different test methodology at [facility] than other [facility]. Direct result comparison should only be made within the same method. REF VALUES MALE <0.2-0.8 FOLLICULAR PHASE <0.2-1.5 LUTEAL PHASE 7.4-15.4 POSTMENOPAUSAL <0.2-0.2 1ST TRIMESTER 12.0-84.0 2ND TRIMESTER 10.2-58.8 3RD TRIMESTER 46.5-160 Performed By: #### E STRA #### [facility] [address] [place] [address] Progesterone, Serumon 2018 Progesterone [Mass/Vol] 1.0 ng/mL YZ-YENBW-Mtkag n 310 IVF Work Phone: Comment on above: Progesterone is perf ormed using the [employer] Access Immunoassay. Progesterone testing is performed using a different test methodology at [facility] than other [facility]. Direct result comparison should only be made within the same method.REF VALUESMALE <0.2-0.8 FOLLICULAR PHASE <0.2-1.5 LUTEAL PHASE 7.4-15.4 POSTMENOPAUSAL <0.2-0.2 1ST TRIMESTER 12.0-84.0 2ND TRIMESTER 10.2-58.8 3RD TRIMESTER 46.5-160 ESTRADIOLon 10-11-2019 ESTRADIOL 284 pg/mL Normal [facility] [place] Comment on above: Result Comment: Estr adiol measurement is performed using the [employer] Access Immunoassay. Estradiol testing is performed using a different test methodology at [facility] than other [facility]. Direct result comparison should only be made within the same method. REF VALUES FOLLICULAR PHASE 20-144 MID CYCLE 64-357 LUTEAL PHASE 56-214 POSTMENOPAUSE < 32 PREPUBERTY < 20 MALE 10-18Y < 20 ADULT MALE < 40 Performed By: #### E STRA #### [facility] [address] [place] [address] Estradiol, Serumon 201 9 E2 [Mass/Vol] 284 pg/mL MG-OBGYN-Ri [facility] n 310 IVF Work Phone: Comment on above: Estradiol measuremen t is performed using the [employer] Access Immunoassay. Estradiol testing is performed using a different test methodology at [facility] than other [facility]. Direct result comparison should only be made within the same method.REF VALUESFOLLICULAR PHASE 20-144MID CYCLE 64-357LUTEAL PHASE 56-214POSTMENOPAUSE < 32PREPUBERTY < 20MALE 10-18Y < 20ADULT MALE < 40 ESTRADIOLon 10-05-2019 ESTRADIOL 129 pg/mL Normal [facility] [place] Comment on above: Result Comment: Estr adiol measurement is performed using the [employer] Immunoassay. Estradiol testing is performed using a different test methodology at [facility] than other [facility]. Direct result comparison should only be made within the same method. REF VALUES FOLLICULAR PHASE 20-144 MID CYCLE 64-357 LUTEAL PHASE 56-214 POSTMENOPAUSE < 32 PREPUBERTY < 20 MALE 10-18Y < 20 ADULT MALE < 40 Performed By: #### E STRA #### [facility] [address] [place] [address] Estradiol, Serumon 9 E2 [Mass/Vol] 129 pg/mL MG-OBGYN-Ri [facility] n 310 IVF Work Phone: Comment on above: Estradiol measuremen t is performed using the [employer] Access Immunoassay. Estradiol testing is performed using a different test methodology at [facility] than other [facility]. Direct result comparison should only be made within the same method.REF VALUESFOLLICULAR PHASE 20-144MID CYCLE 64-357LUTEAL PHASE 56-214POSTMENOPAUSE < 32PREPUBERTY < 20MALE 10-18Y < 20ADULT MALE < 40 PROGESTERONEon 10-05-2019 PROGESTERONE 0.2 ng/mL Normal [facility] [place] Comment on above: Result Comment: Prog esterone is performed using the [employer] Immunoassay. Progesterone testing is performed using a different test methodology at [facility] than other [facility]. Direct result comparison should only be made within the same method. REF VALUES MALE <0.2-0.8 FOLLICULAR PHASE <0.2-1.5 LUTEAL PHASE 7.4-15.4 POSTMENOPAUSAL <0.2-0.2 1ST TRIMESTER 12.0-84.0 2ND TRIMESTER 10.2-58.8 3RD TRIMESTER 46.5-160 Performed By: #### E STRA #### [facility] [address] [place] [address] Progesterone, Serumon 2018 Progesterone [Mass/Vol] 0.2 ng/mL YJ-YMJBK-Rwggk n 310 IVF Work Phone: Comment on above: Progesterone is perf ormed using the [employer] Access Immunoassay. Progesterone testing is performed using a different test methodology at [facility] than other [facility]. Direct result comparison should only be made within the same method.REF VALUESMALE <0.2-0.8 FOLLICULAR PHASE <0.2-1.5 LUTEAL PHASE 7.4-15.4 POSTMENOPAUSAL <0.2-0.2 1ST TRIMESTER 12.0-84.0 2ND TRIMESTER 10.2-58.8 3RD TRIMESTER 46.5-160 ESTRADIOLon 10-02-2019 ESTRADIOL 357 pg/mL Normal [facility] [place] Comment on above: Result Comment: Estr adiol measurement is performed using the [employer] Access Immunoassay. Estradiol testing is performed using a different test methodology at [facility] than other [facility]. Direct result comparison should only be made within the same method. REF VALUES FOLLICULAR PHASE 20-144 MID CYCLE 64-357 LUTEAL PHASE 56-214 POSTMENOPAUSE < 32 PREPUBERTY < 20 MALE 10-18Y < 20 ADULT MALE < 40 Performed By: #### E STRA #### [facility] [address] [place] [address] Estradiol, Serumon 9 E2 [Mass/Vol] 357 pg/mL MG-OBGYN-Cr ock er 206A IVF Work Phone: Comment on above: Estradiol measuremen t is performed using the [employer] Immunoassay. Estradiol testing is performed using a different test methodology at [facility] than other [facility]. Direct result comparison should only be made within the same method.REF VALUESFOLLICULAR PHASE 20-144MID CYCLE 64-357LUTEAL PHASE 56-214POSTMENOPAUSE < 32PREPUBERTY < 20MALE 10-18Y < 20ADULT MALE < 40 LUTEINIZING HORMONEon 2018 LUTEINIZING HORMONE 14.7 IU/L Normal [facility] [place] Comment on above: Result Comment: Lute inizing Hormone [LH] is performed using the [employer] Access Immunoassay. LH testing is performed using a different test methodology at [facility] than other [facility]. Direct result comparison should only be made within the same method. REF VALUES FOLLICULAR PHASE 1.5-10.0 MID-CYCLE 13.0-72.0 LUTEAL PHASE 0.5-13.0 MENOPAUSE 15.0-65.0 PREPUBERTY 0- 3.0 CHILDREN 0- 6.0 ADULT MALE 1.0- 9.0 Performed By: #### E STRA #### [facility] [address] [place] [address] Luteinizing Hormone, Serumon 10-02-2019 Lutropin Qn 14.7 {IU/L} RI-DGALK-Iua ck er 206A IVF Work Phone: Comment on above: Luteinizing Hormone [LH] is performed using the [employer] Access Immunoassay. LH testing is performed using a different test methodology at [facility] than other [facility]. Direct result comparison should only be made within the same method.REF VALUESFOLLICULAR PHASE 1.5-10.0MID-CYCLE 13.0-72.0LUTEAL PHASE 0.5-13.0MENOPAUSE 15.0-65.0PREPUBERTY 0- 3.0CHILDREN 0- 6.0ADULT MALE 1.0- 9.0 PROGESTERONEon 10-02-2019 PROGESTERONE 0.1 ng/mL Normal [facility] [place] Comment on above: Result Comment: Prog esterone is performed using the [employer] Immunoassay. Progesterone testing is performed using a different test methodology at [facility] than other [facility]. Direct result comparison should only be made within the same method. REF VALUES MALE <0.2-0.8 FOLLICULAR PHASE <0.2-1.5 LUTEAL PHASE 7.4-15.4 POSTMENOPAUSAL <0.2-0.2 1ST TRIMESTER 12.0-84.0 2ND TRIMESTER 10.2-58.8 3RD TRIMESTER 46.5-160 Performed By: #### E STRA #### [facility] [address] [place] [address] Progesterone, Serumon 2018 Progesterone [Mass/Vol] 0.1 ng/mL TM-MRVXN-Rippb er 206A IVF Work Phone: Comment on above: Progesterone is perf ormed using the [employer] Immunoassay. Progesterone testing is performed using a different test methodology at [facility] than other [facility]. Direct result comparison should only be made within the same method.REF VALUESMALE <0.2-0.8 FOLLICULAR PHASE <0.2-1.5 LUTEAL PHASE 7.4-15.4 POSTMENOPAUSAL <0.2-0.2 1ST TRIMESTER 12.0-84.0 2ND TRIMESTER 10.2-58.8 3RD TRIMESTER 46.5-160 HCG,BETA-QUANTITATIVEon 07-17 HCG,BETA-QUANTITA TIVE 10 mIU/mL [facility] [place] Comment on above: Result Comment: [...] HCG measurement is performed using the [employer] Immunoassay which detects intact HCG and free beta HCG subunit. This test is not indicated for use as a tumor marker. HCG testing is performed using a different test methodology at [facility] than other [facility]. Direct result comparison should only be made within the same method. REF VALUES NON FEMALE <5 MALES <5 Performed By: #### L H #### [facility] [address] [place] [address] LUTEINIZING HORMONEon 2018 LUTEINIZING HORMONE 57.0 IU/L Normal [facility] [place] Comment on above: Result Comment: Lute inizing Hormone [LH] is performed using the [employer] Access Immunoassay. LH testing is performed using a different test methodology at [facility] than other [facility]. Direct result comparison should only be made within the same method. REF VALUES FOLLICULAR PHASE 1.5-10.0 MID-CYCLE 13.0-72.0 LUTEAL PHASE 0.5-13.0 MENOPAUSE 15.0-65.0 PREPUBERTY 0- 3.0 CHILDREN 0- 6.0 ADULT MALE 1.0- 9.0 Performed By: #### E STRA #### [facility] [address] [place] [address] PROGESTERONEon 08-13-2019 PROGESTERONE 6.7 ng/mL Normal [facility] [place] Comment on above: Result Comment: Prog esterone is performed using the [employer] Access Immunoassay. Progesterone testing is performed using a different test methodology at [facility] than other [facility]. Direct result comparison should only be made within the same method. REF VALUES MALE <0.2-0.8 FOLLICULAR PHASE <0.2-1.5 LUTEAL PHASE 7.4-15.4 POSTMENOPAUSAL <0.2-0.2 1ST TRIMESTER 12.0-84.0 2ND TRIMESTER 10.2-58.8 3RD TRIMESTER 46.5-160 Performed By: #### L H #### [facility] [address] [place] [address] ESTRADIOLon 08-12-2019 ESTRADIOL 1380 pg/mL Normal [facility] [place] Comment on above: Result Comment: Estr adiol measurement is performed using the [employer] Access Immunoassay. Estradiol testing is performed using a different test methodology at [facility] than [facility]. Direct result comparison should only be made within the same method. REF VALUES FOLLICULAR PHASE 20-144 MID CYCLE 64-357 LUTEAL PHASE 56-214 POSTMENOPAUSE < 32 PREPUBERTY < 20 MALE 10-18Y < 20 ADULT MALE < 40 Performed By: #### L H #### [facility] [address] [place] [address] PROGESTERONEon 08-12-2019 PROGESTERONE 1.7 ng/mL Normal [facility] [place] Comment on above: Result Comment: Prog esterone is performed using the [employer] Immunoassay. Progesterone testing is performed using a different test methodology at [facility] than other [facility]. Direct result comparison should only be made within the same method. REF VALUES MALE <0.2-0.8 FOLLICULAR PHASE <0.2-1.5 LUTEAL PHASE 7.4-15.4 POSTMENOPAUSAL <0.2-0.2 1ST TRIMESTER 12.0-84.0 2ND TRIMESTER 10.2-58.8 3RD TRIMESTER 46.5-160 Performed By: #### L H #### [facility] [address] [place] [address] ESTRADIOLon 08-11-2019 ESTRADIOL 874 pg/mL Normal [facility] [place] Comment on above: Result Comment: Estr adiol measurement is performed using the [employer] Immunoassay. Estradiol testing is performed using a different test methodology at [facility] than other [facility]. Direct result comparison should only be made within the same method. REF VALUES FOLLICULAR PHASE 20-144 MID CYCLE 64-357 LUTEAL PHASE 56-214 POSTMENOPAUSE < 32 PREPUBERTY < 20 MALE 10-18Y < 20 ADULT MALE < 40 Performed By: #### L H #### [facility] [address] [place] [address] PROGESTERONEon 08-11-2019 PROGESTERONE 1.2 ng/mL Normal [facility] [place] Comment on above: Result Comment: Prog esterone is performed using the [employer] Immunoassay. Progesterone testing is performed using a different test methodology at [facility] than other [facility]. Direct result comparison should only be made within the same method. REF VALUES MALE <0.2-0.8 FOLLICULAR PHASE <0.2-1.5 LUTEAL PHASE 7.4-15.4 POSTMENOPAUSAL <0.2-0.2 1ST TRIMESTER 12.0-84.0 2ND TRIMESTER 10.2-58.8 3RD TRIMESTER 46.5-160 Performed By: #### L H #### [facility] [address] [place] [address] ESTRADIOLon 08-09-2019 ESTRADIOL 385 pg/mL Normal [facility] [place] Comment on above: Result Comment: Estr adiol measurement is performed using the [employer] Immunoassay. Estradiol testing is performed using a different test methodology at [facility] than [facility]. Direct result comparison should only be made within the same method. REF VALUES FOLLICULAR PHASE 20-144 MID CYCLE 64-357 LUTEAL PHASE 56-214 POSTMENOPAUSE < 32 PREPUBERTY < 20 MALE 10-18Y < 20 ADULT MALE < 40 Performed By: #### L H #### [facility] [address] [place] [address] ESTRADIOLon 08-07-2019 ESTRADIOL 80 pg/mL Normal [facility] [place] Comment on above: Result Comment: Estr adiol measurement is performed using the [employer] Immuno[employer]. Estradiol testing is performed using a different test methodology at [facility] than [facility]. Direct result comparison should only be made within the same method. REF VALUES FOLLICULAR PHASE 20-144 MID CYCLE 64-357 LUTEAL PHASE 56-214 POSTMENOPAUSE < 32 PREPUBERTY < 20 MALE 10-18Y < 20 ADULT MALE < 40 Performed By: #### L H #### [facility] [address] [place] [address] ESTRADIOLon 08-04-2019 ESTRADIOL 58 pg/mL Normal [facility] [place] Comment on above: Result Comment: Estr adiol measurement is performed using the [employer] Immunoassay. Estradiol testing is performed using a different test methodology at [facility] than [facility]. Direct result comparison should only be made within the same method. REF VALUES FOLLICULAR PHASE 20-144 MID CYCLE 64-357 LUTEAL PHASE 56-214 POSTMENOPAUSE < 32 PREPUBERTY < 20 MALE 10-18Y < 20 ADULT MALE < 40 Performed By: #### L H #### [facility] [address] [place] [address] ESTRADIOLon 07-07-2019 ESTRADIOL 110 pg/mL Normal [facility] [place] Comment on above: Result Comment: Estr adiol measurement is performed using the [employer] Immuno[employer]. Estradiol testing is performed using a different test methodology at [facility] than [facility]. Direct result comparison should only be made within the same method. REF VALUES FOLLICULAR PHASE 20-144 MID CYCLE 64-357 LUTEAL PHASE 56-214 POSTMENOPAUSE < 32 PREPUBERTY < 20 MALE 10-18Y < 20 ADULT MALE < 40 Performed By: #### L H #### [facility] [address] [place] [address] NR MRI SELLA WO/Won 05-31-20 19 NR MRI SELLA WO/W Patient Name: KIARA ASHLEY STUDY: NR MRI SELLA WO/W; 05/31/2019 2:00 pm INDICATION: History of 7 mm microadenoma 2008. COMPARISON: None. ACCESSION NUMBER(S): [id number] ORDERING CLINICIAN: SHAHLA HEALY TECHNIQUE: High resolution [...] Electronically signed by: IRENE BLAKE PHYSICIAN Normal [facility] [place] ESTRADIOLon 05-05-2019 ESTRADIOL 217 pg/mL Normal [facility] [place] Comment on above: Result Comment: Estr adiol measurement is performed using the [employer] Immunoassay. Estradiol testing is performed using a different test methodology at [facility] than other [facility]. Direct result comparison should only be made within the same method. REF VALUES FOLLICULAR PHASE 20-144 MID CYCLE 64-357 LUTEAL PHASE 56-214 POSTMENOPAUSE < 32 PREPUBERTY < 20 MALE 10-18Y < 20 ADULT MALE < 40 Performed By: #### E STRA #### [facility] [address] [place] [address] LUTEINIZING HORMONEon 2018 LUTEINIZING HORMONE 4.4 IU/L Normal [facility] [place] Comment on above: Result Comment: Lute inizing Hormone [LH] is performed using the [employer] Immunoassay. LH testing is performed using a different test methodology at [facility] than other [facility]. Direct result comparison should only be made within the same method. REF VALUES FOLLICULAR PHASE 1.5-10.0 MID-CYCLE 13.0-72.0 LUTEAL PHASE 0.5-13.0 MENOPAUSE 15.0-65.0 PREPUBERTY 0- 3.0 CHILDREN 0- 6.0 ADULT MALE 1.0- 9.0 Performed By: #### L H #### [facility] [address] [place] [address] ESTRADIOLon 04-11-2019 ESTRADIOL 118 pg/mL Normal [facility] [place] Comment on above: Result Comment: Estr adiol measurement is performed using the [employer] Immuno[employer]. Estradiol testing is performed using a different test methodology at [facility] than [facility]. Direct result comparison should only be made within the same method. REF VALUES FOLLICULAR PHASE 20-144 MID CYCLE 64-357 LUTEAL PHASE 56-214 POSTMENOPAUSE < 32 PREPUBERTY < 20 MALE 10-18Y < 20 ADULT MALE < 40 Performed By: #### E STRA #### [facility] [address] [place] [address] LUTEINIZING HORMONEon 2018 LUTEINIZING HORMONE 7.7 IU/L Normal [facility] [place] Comment on above: Result Comment: Lute inizing Hormone [LH] is performed using the [employer] Immun[employer]. LH testing is performed using a different test methodology at [facility] than [facility]. Direct result comparison should only be made within the same method. REF VALUES FOLLICULAR PHASE 1.5-10.0 MID-CYCLE 13.0-72.0 LUTEAL PHASE 0.5-13.0 MENOPAUSE 15.0-65.0 PREPUBERTY 0- 3.0 CHILDREN 0- 6.0 ADULT MALE 1.0- 9.0 Performed By: #### L H #### [facility] [address] [place] [address] PROGESTERONEon 04-11-2019 PROGESTERONE 0.1 ng/mL Normal [facility] [place] Comment on above: Result Comment: Prog esterone is performed using the [employer] Immunoassay. Progesterone testing is performed using a different test methodology at [facility] than other [facility]. Direct result comparison should only be made within the same method. REF VALUES MALE <0.2-0.8 FOLLICULAR PHASE <0.2-1.5 LUTEAL PHASE 7.4-15.4 POSTMENOPAUSAL <0.2-0.2 1ST TRIMESTER 12.0-84.0 2ND TRIMESTER 10.2-58.8 3RD TRIMESTER 46.5-160 Performed By: #### P SVEN #### [facility] [address] [place] [address] ESTRADIOLon 03-17-2019 ESTRADIOL 120 pg/mL Normal [facility] [place] Comment on above: Result Comment: Estr adiol measurement is performed using the [employer] Access Immunoassay. Estradiol testing is performed using a different test methodology at [facility] than [facility]. Direct result comparison should only be made within the same method. REF VALUES FOLLICULAR PHASE 20-144 MID CYCLE 64-357 LUTEAL PHASE 56-214 POSTMENOPAUSE < 32 PREPUBERTY < 20 MALE 10-18Y < 20 ADULT MALE < 40 Performed By: #### E STRA #### [facility] [address] [place] [address] LUTEINIZING HORMONEon 2018 LUTEINIZING HORMONE 6.8 IU/L Normal [facility] [place] Comment on above: Result Comment: Lute inizing Hormone [LH] is performed using the [employer] Access Immunoassay. LH testing is performed using a different test methodology at [facility] than [facility]. Direct result comparison should only be made within the same method. REF VALUES FOLLICULAR PHASE 1.5-10.0 MID-CYCLE 13.0-72.0 LUTEAL PHASE 0.5-13.0 MENOPAUSE 15.0-65.0 PREPUBERTY 0- 3.0 CHILDREN 0- 6.0 ADULT MALE 1.0- 9.0 Performed By: #### L H #### [facility] [address] [place] [address] ESTRADIOLon 02-20-2019 ESTRADIOL 521 pg/mL Normal [facility] [place] Comment on above: Result Comment: Estr adiol measurement is performed using the [employer] Access Immunoassay. Estradiol testing is performed using a different test methodology at [facility] than other [facility]. Direct result comparison should only be made within the same method. REF VALUES FOLLICULAR PHASE 20-144 MID CYCLE 64-357 LUTEAL PHASE 56-214 POSTMENOPAUSE < 32 PREPUBERTY < 20 MALE 10-18Y < 20 ADULT MALE < 40 Performed By: #### E STRA #### [facility] [address] [place] [address] LUTEINIZING HORMONEon 2018 LUTEINIZING HORMONE 3.5 IU/L Normal [facility] [place] Comment on above: Result Comment: Lute inizing Hormone [LH] is performed using the [employer] Access Immunoassay. LH testing is performed using a different test methodology at [facility] than other [facility]. Direct result comparison should only be made within the same method. REF VALUES FOLLICULAR PHASE 1.5-10.0 MID-CYCLE 13.0-72.0 LUTEAL PHASE 0.5-13.0 MENOPAUSE 15.0-65.0 PREPUBERTY 0- 3.0 CHILDREN 0- 6.0 ADULT MALE 1.0- 9.0 Performed By: #### L H #### [facility] [address] [place] [address] Vital Signs Date Time Vital Sign Value Performing Clinician Modesto golden 12-27-2023 10:57-0500 Body mass index (BMI) [Ratio] 34.84 kg/m2 Bere JOHNSON Work Phone: [facility] 12-27-2023 10:57-0500 Body weight 83.64 kg Bere JOHNSON Work Phone: [facility] 12-27-2023 10:57-0500 Diastolic blood pressure 68 mm[Hg] Bere JOHNSON Work Phone: [facility] 12-27-2023 10:57-0500 Systolic blood pressure 110 mm[Hg] Bere JOHNSON Work Phone: [facility] 02-27-2023 11:35-0400 Body mass index (BMI) [Ratio] 29.26 kg/m2 Evelyn Perez Work Phone: [facility] 02-27-2023 11:35-0400 Body temperature 98.8 [degF] Evelyn Calderonrn Work Phone: [facility] [employer] 02-27-2023 11:35-0400 Body weight 72.58 kg Evelyn Calderonrn Work Phone: [facility] [employer] 02-27-2023 11:35-0400 Diastolic blood pressure 66 mm[Hg] Evelyn Calderonrn Work Phone: [facility] [employer] 02-27-2023 11:35-0400 Heart rate 88 /min Evelyn Calderonrn Work Phone: [facility] [employer] 02-27-2023 11:35-0400 Respiratory rate 14 /min [facility] Calderonrn [facility] 02-27-2023 11:35-0400 SaO2% (BldA) [Mass fraction] 100 % Evelyn Calderonrn Work Phone: [facility] [employer] 02-27-2023 11:35-0400 Systolic blood pressure 103 mm[Hg] Evelyn Calderonrn Work Phone: [facility] [employer] 06-19-2021 14:03-0400 Body height 157.48 cm Evelyn Calderonrn Work Phone: TF-WFHAW-Jnlmtk 310 IVF Work Phone: 06-19-2021 14:03-0400 Body mass index (BMI) [Ratio] 29.26 kg/m2 Evelyn Calderonrn Work Phone: OA-OQRFV-Zvowyt 310 IVF Work Phone: 06-19-2021 14:03-0400 Body surface area Derived from formula 1.74 m2 Evelyn Calderonrn Work Phone: DM-JYMEU-Rwtgaw 310 IVF Work Phone: 06-19-2021 14:03-0400 Body weight 72.58 kg Evelyn Husain Ana Work Phone: BJ-MJKPK-Emaxhn 310 IVF Work Phone: 06-19-2021 14:03-0400 1 1 Evelyn M Ana Work Phone: UY-HDZYP-Dkloxv 310 IVF Work Phone: Comment on above: GRAV PARA 06-19-2021 14:03-0400 0 1 Evelyn Husain Ana Work Phone: FL-YEJQS-Qdvsre 310 IVF Work Phone: Comment on above: [employer] 06-07-2020 10:41-0400 BMI (Body Mass Index) 34.93 kg/m2 King Lappen SH-GJLJX-KMN [address] [place] Work Phone: 06-07-2020 10:41-0400 Body weight 86.64 kg King Lappen HE-QGIYH-IKX 120 0 [place] Work Phone: 06-07-2020 10:41-0400 BP Diastolic 76 mm[Hg] King Lappen WP-ZOUIC-XHL 120 0 [place] Work Phone: 06-07-2020 10:41-0400 BP Systolic 111 mm[Hg] King Lappen KH-MKBLA-EYQ 120 0 [place] Work Phone: 06-07-2020 10:41-0400 BSA (Body Surface Area) 1.87 m2 King Lappen EO-KADLZ-ZDU 1200 [place] Work Phone: 06-07-2020 10:41-0400 Pulse (Heart Rate) 101 /min King Lappen UX-XDXQD-GUY 1200 [place] Work Phone: 06-07-2020 10:41-0400 0 1 King Lappen JN-CXXFO-ZPX 120 0 [place] Work Phone: Comment on above: [employer] 12-25-2019 10:58-0500 BMI (Body Mass Index) 30.18 kg/m2 King Lappen XC-LWYIL-YIL [address] [place] Work Phone: 12-25-2019 10:58-0500 Body weight 74.84 kg King Lappen RZ-NSGKJ-KEO 120 0 [place] Work Phone: 12-25-2019 10:58-0500 BP Diastolic 68 mm[Hg] King Lappen HH-CZXMB-HJK 120 0 [place] Work Phone: 12-25-2019 10:58-0500 BP Systolic 112 mm[Hg] King Lappen YQ-FEZRN-KNL 120 0 [place] Work Phone: 12-25-2019 10:58-0500 BSA (Body Surface Area) 1.76 m2 King Lappen XS-DUQEV-YVC 1200 [place] Work Phone: 11-09-2019 11:28-0500 Body Temperature 98.78 [degF] Kelechi Gage QQ-YJZIC-Dubbsw 310 IVF Work Phone: 11-09-2019 11:28-0500 BP Diastolic 76 mm[Hg] Kelechi Gage FD-UCECF-Sboeal 310 IVF Work Phone: 11-09-2019 11:28-0500 BP Systolic 112 mm[Hg] Kelechi Gage RW-IOFRC-Jgykwr 310 IVF Work Phone: 11-09-2019 11:28-0500 Respiratory Rate 96 /min Kelechi Gage XR-JMSRJ-Wbvvwq 310 IVF Work Phone: Encounters Encounter Date Encounter Type Care Provider Facility Start: 02-07-2024 End: 02-07-2024 ambulatory DEMARIO RIBEIRO Not Available Start: 01-24-2024 End: 01-24-2024 ambulatory BERE STEEL Not Available Start: 01-10-2024 End: 01-11-2024 ambulatory Zoya Buitrago 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 Facility:[facility] Start: 09-22-2022 End: 09-22-2022 Emergency department patient visit JAMI ROMERO [facility] Start: 03-10-[address] EVELYN PEREZ [...] 12-27-2021 End: 12-27-2021 ambulatory Sabina Barnhart Other [employer] Other Start: 12-27-2021 Office outpatient visit 5 minutes Sabina Barnhart [facility] Start: 07-16-2021 Patient encounter procedure Evelyn Perez Work Phone: PM-GTJBA-Bnjhcs 310 IVF Work Phone: Start: 07-07-2021 AUDIT Evelyn castrohofabrizio Work Phone: OF-UDWDE-Jnwhzf 310 IVF Work Phone: Start: 07-07-2021 Chart Update Evelyn santana Work Phone: CT-SLKCS-Ewjorx 310 IVF Work Phone: Start: 07-02-2021 Telephone encounter Evelyn gonzales Work Phone: TH-FNKOA-Xrorgu 310 IVF Work Phone: Start: 06-19-2021 Patient encounter procedure Evelyn Perez Work Phone: AH-EWOCV-Zktklw 310 IVF Work Phone: Start: 06-07-2020 Patient encounter procedure King Lappen IC-IUHTC-EQS 1200 [place] Work Phone: Start: 04-24-2020 Patient encounter procedure King Lappen CW-AXFIY-TFY 1200 [place] Work Phone: Start: 02-20-2020 Patient encounter procedure King Lappen MV-GRVQI-AOC 1200 [place] Work Phone: Start: 02-14-2020 Patient encounter procedure King Lappen WE-JHXOT-HAX 1200 [place] Work Phone: Start: 01-23-2020 Patient encounter procedure King Lappen ZG-LPDVW-XDW 1200 [place] Work Phone: Start: 12-25-2019 Patient encounter procedure King Lappen IN-XVAFH-KUK 1200 [place] Work Phone: Start: 11-21-2019 Patient encounter procedure King Lappen ZW-VGUJN-YQV 1200 [place] Work Phone: Start: 11-16-2019 Patient encounter procedure Kelechi Gage MP-Reproductive Endocrinology-Mora 206 Work Phone: Start: 11-14-2019 Patient encounter procedure Kelechi Gage EI-HVVCY-Giuxpm 310 IVF Work Phone: Start: 11-09-2019 Patient encounter procedure Kelechi Gage XA-NBQVI-Fnhtsp 310 IVF Work Phone: Start: 11-02-2019 Patient encounter procedure Kelechi Gage ZEE-Reproductive Endocrinology-R[place] Work Phone: Start: 10-21-2019 Patient encounter procedure Kelechi Gage MP-Reproductive Endocrinology-Risman Work Phone: Start: 10-14-2019 Patient encounter procedure Kelechi Gage WV-VCJCS-Ufmfmv 310 IVF Work Phone: Start: 10-11-2019 Patient encounter procedure Kelechi Gage HC-SGSZN-Xiryhp 310 IVF Work Phone: Start: 10-05-2019 Patient encounter procedure Kelechi Gage NM-KKVQK-Sqbono 320 Work Phone: Start: 10-02-2019 Patient encounter procedure Kelechi Gage EF-ZYRWR-Yggmksj 206A IVF Work Phone: Start: 08-14-2019 Patient encounter procedure Kelechi Gage AN-MYUZW-Lqajoa 310 IVF Work Phone: Start: 08-13-2019 Patient encounter procedure Kelechi Gage DG-HHZXW-Tghkxv 310 IVF Work Phone: Start: 08-12-2019 Patient encounter procedure Kelechi TONGHN-WDOZP-Uxzvao 310 IVF Work Phone: Start: 08-11-2019 Patient encounter procedure Kelechi TONGWU-KNDDR-Lwahzu 310 IVF Work Phone: Start: 08-09-2019 Patient encounter procedure Kelechi Gage DG-NFIDM-Hcstbx 310 IVF Work Phone: Start: 08-07-2019 Patient encounter procedure Kelechi TONGWF-KHCBE-Tirmfu 310 IVF Work Phone: Start: 08-04-2019 Patient encounter procedure Kelechi Gage EL-JXSYF-Wunrkb 310 IVF Work Phone: Start: 07-07-2019 Patient encounter procedure Kelechi TONGXF-UGGFI-Nskvda 310 IVF Work Phone: Start: 06-08-2019 Patient encounter procedure Kelechi TONGMX-BSTBP-Sizira 310 IVF Work Phone: Start: 05-17-2019 Patient encounter procedure Kelechi TONGHG-NFPZY-Urxpli 310 IVF Work Phone: Start: 05-08-2019 Patient encounter procedure Kelechi TONGFC-KQERJ-Thzlqu 310 IVF Work Phone: Start: 05-05-2019 Patient encounter procedure Kelechi Gage IA-EXRNF-Uofxqy 310 IVF Work Phone: Start: 04-13-2019 Patient encounter procedure Kelechi Gage EC-RAYMJ-Ktoqrm 310 IVF Work Phone: Start: 04-11-2019 Patient encounter procedure Kelechi Gage CK-PBZYR-Huvtdu 310 IVF Work Phone: Start: 03-20-2019 Patient encounter procedure Kelechi Gage QP-ESJGN-Grtyju 310 IVF Work Phone: Start: 03-17-2019 Patient encounter procedure Kelechi Gage HW-AAPGM-Eisznh 310 IVF Work Phone: Start: 02-22-2019 Patient encounter procedure Kelechi Gage GT-ASBKA-Hzekgw 310 IVF Work Phone: Start: 02-20-2019 Patient encounter procedure Kelechi TONGJG-SBKZS-Dngyal 310 IVF Work Phone: Start: 02-13-2019 Patient encounter procedure Bruce Mayes Facility:[facility] [place] Start: 02-08-2019 End: 02-12-2019 Patient encounter procedure Brcue Mayes Facility:[facility] Start: 01-19-2019 Patient encounter procedure Kelechi TONGWR-RCEFG-Xkdhlq 310 IVF Work Phone: Patient encounter status Evelyn Perez Work Phone: BF-YOTZR-Vnrawo 310 IVF Work Phone: Procedures Date Procedure [...] procedure 02/07/2024 9:40 AM EDT Routine [facility] [address] [facility] [place] [place] [address] Demario Ribeiro DO [address] [place] [address] [facility] Start: 02-07-2024 End: 02-07-2024 Professional / ancillary services management 02/07/2024 9:00 AM EDT Ancillary Procedure [facility] [address] [place], [place] [address] [facility] Start: 01-24-2024 End: 01-24-2024 Patient encounter procedure 01/24/2024 9:30 AM EDT Routine [facility] [address] [facility] [place] [place] [id number] Bere Steel PA [address] [place] [address] [facility] Start: 01-10-2024 End: 01-10-2024 Patient encounter procedure 01/10/2024 2:20 PM EST Routine [facility] [address] [place], [place] [address] Demario Ribeiro DO [address] [place] [address] [facility] Start: 01-10-2024 End: 01-10-2024 Professional / ancillary services management 01/10/2024 2:00 PM EST Ancillary Procedure [facility] [address] [address] [place], [place] [id number] [facility] Start: 12-27-2023 End: 12-27-2024 US biophysical profile w non stress test US biophysical profile w non stress test Imaging Routine Hypothyroidism (acquired) (CMS/HCC) H/O blood clots Expected: 12/27/2023 (Approximate), Expires: 12/27/2024 [facility] Work Phone: Comment on above: Expected: 12/27/2023 (Approximate), Expires: 12/27/2024 Start: 12-27-2023 End: 12-27-2024 US for US OB SCAN FOR GROWTH Imaging Routine Hypothyroidism, unspecified type (CMS/HCC) Excessive growth affecting management of in third trimester, single or unspecified fetus Expected: 12/27/2023 (Approximate), Expires: 12/27/2024 [facility] Healthcare Comment on above: Expected: 12/27/2023 (Approximate), Expires: 12/27/2024 Start: 06-15-2023 Influenza vaccination Flu vacc ine (Season Ended) [facility] Start: 2021 Screening for malignant neoplasm of cervix [facility] Start: 07-25-2021 ULTRASOUND, Provider : OBGYRosenda IVF RDMS ARDEN 1,[facility] OBG[facility], Status: Pen, Time: 9:00 AM ULTRASOUND, Provider: OBGYN IVF RDMS ARDEN 1,MG OBGYN, Status: Pen, Time: 9:00 AM JH-EEEQZ-Tksvrt 310 IVF Work Phone: Start: 07-16-2021 ULTRASOUND, Provider : OBGYN IVF RDMS [id number] 1,MG OBGYN, Status: Pen, Time: 1:00 PM ULTRASOUND, Provider: OBGYN IVF RDMS [id number] 1,MG OBGYN, Status: Pen, Time: 1:00 PM HC-TWXLK-Wyrssd 310 IVF Work Phone: Start: 07-07-2021 ULTRASALIN, Provider : Miguel A Barrera, Status: Pen, Time: 10:00 AM ULTRASALIN, Provider: Miguel A Barrera, Status: Pen, Time: 10:00 AM XU-ILYWN-Evimdb 310 IVF Work Phone: Start: 06-05-2020 MAC Imaging Order MG-BANK CLERK-MAC 1200 [place] Work Phone: Start: 11-16-2019 IO Ultrasound, -Reproductive Endocrinology-[facility] chastity 206 Work Phone: Start: 11-14-2019 Blood count complete auto&auto difrntl wbc Complete Blood Count + Differential VJ-WFPSW-Hcvdhx 310 IVF Work Phone: Start: 11-14-2019 Comprehensive metabolic 2000 panel LY-IWYZK-Vqxinr 310 IVF Work Phone: Start: 11-02-2019 Gonadotropin chorion ic quantitative HCG, Beta Quantitative MP-Reproductive Endocrinology-[place] chastity 206 Work Phone: Start: 10-11-2019 IO Ultrasound, limited pelvic, follicle monitoring QW-DOKCN-Lbkwjl 310 IVF Work Phone: Start: 10-05-2019 IO Ultrasound, limited pelvic, follicle monitoring AZ-SYBKG-Marmfx 320 Work Phone: Start: 2012 Screening for malignant neoplasm of cervix Pap smear [facility] Start: 2010 DTaP/Tdap/Td vaccine (1 - Tdap) DTaP/Tdap/Td vaccine (1 - Tdap) [facility] Start: 2009 Hepatitis C screening Hepatitis C sc reen [facility] Start: 2006 HIV screening HIV screen [facility] Start: 2003 Depression Screen Depression Screen [facility] Start: 1992 Varicella vaccine (1 of 2 - 2-dose childhood series) Varicella vaccine (1 of 2 - 2-dose childhood series) [facility] Start: 03-02-1992 COVID-19 Vaccine (#1) COVID-19 Vacci ne (#1) [facility] Assay of estradiol Estradiol, Serum MG-BANK CLERK-Risman 310 IVF Work Phone: Comment on above: Approx [id number] Approx [id number] Approx [id number] Assay of progesterone Progesterone, Serum XL-AMYVF-Paczsh 310 IVF Work Phone: Comment on above: Approx [id number] Gonadotropin luteinizing hormone Luteinizing Hormone, Serum XV-JCBVU-Wvhitq 310 IVF Work Phone: Comment on above: Approx [id number] PB-FQGTB-Bmmfka 320 Work Phone: IO Ultrasound, l imited pelvic, follicle monitoring ST-JRLWZ-Qxwiow 310 IVF Work Phone: Comment on above: Approx [id number] Approx [id number] Approx [id number] NEGATED: Highlighted row has been ruled out! Planned Goals not documented KH-SVHSQ-Kqlkfv 310 IVF Work Phone: Payers Date Payer Category Payer Self-pay 2016 Private Health Insurance [id number] 2016 Private Health Insurance [id number] 1991 Unknown [id number] 2.16.84 0.1.684999.3.579.2.593 1991 Unknown [id number] 2.16.84 0.1.275113.3.579.2.593 1991 Unknown [id number] 2.16.84 0.1.778277.3.579.2.593 1991 Unknown [id number] 2.16.84 0.1.258075.3.579.2.593 1991 Unknown [id number] 2.16.84 0.1.027931.3.579.2.593 1991 Unknown [id number] 2.16.84 0.1.031203.3.579.2.593 1991 Unknown [id number] 2.16.84 0.1.473020.3.579.2.593 1991 Unknown [id number] 2.16.84 0.1.854819.3.579.2.593 1991 Unknown [id number] 2.16.84 0.1.899565.3.579.2.593 1991 Unknown [id number] 2.16.84 0.1.573253.3.579.2.593 1991 Unknown [id number] 2.16.84 0.1.583147.3.579.2.593 1991 Unknown [id number] 2.16.84 0.1.676790.3.579.2.593 1991 Unknown [id number] 2.16.84 0.1.485856.3.579.2.593 1991 Unknown [id number] 2.16.84 0.1.114286.3.579.2.593 1991 Unknown [id number] 2.16.8 40.1.837619.3.579.2.173 1991 Unknown [id number] 2.16.8 40.1.367074.3.579.2.173 1991 Unknown [id number] 2.16. 840.1.835697.3.579.2.196 1991 Unknown [id number] 2.16. 840.1.867856.3.579.2.196 1991 Unknown [id number] 2.16.84 0.1.047004.3.579.2.1259 1991 Unknown [id number] 2.16.84 0.1.537286.3.579.2.1259 1991 Unknown [id number] 2.16.84 0.1.524700.3.579.2.1259 1991 Unknown [id number] 2.16.84 0.1.282105.3.579.2.1259 1991 Unknown [id number] 2.16.84 0.1.219464.3.579.2.1259 1991 Unknown [id number] 2.16.840 .1.888524.3.579.2.1259 1991 Unknown [id number] 2.16.840 .1.918858.3.579.2.1259 1959 Self-pay [id number] 1959 Unknown [id number] 1959 Unknown [id number] Unknown [id number] 2.16.8 40.1.138322.3.579.2.243 Unknown [id number] 2.16.8 40.1.170968.3.579.2.243 Unknown Unknown [id number] 2.16.8 40.1.412310.3.579.2.531 Social History Date Type Detail Facility - - GT-CKBMI-Mhxsli 310 IVF Work Phone: Start: 05-11-2023 End: 12-27-2023 Never a smoker Never a smoker [facility] Comment on above: [facility]; Start: 05-11-2023 End: 09-06-2023 Sex Assigned At [facility] Start: 09-22-2022 End: 04-15-2023 Tobacco smoking status NHIS Never smoked tobacco [employer] Phone: Start: 09-22-2022 End: 04-15-2023 Tobacco use and exposure Smokeless tobacco non-user [employer] Phone: Start: 1990 Sex Assigned At Not on file B ON [employer] Phone: Start: 02-17-2023 End: 02-27-2023 Exposure to SARS-CoV-2 (event) Not sure [facility] Start: 12-27-2023 Alcohol intake Current drinke r [...] status health issues are not documented Disease WK-NJKYI-Avnxxo 310 IVF Work Phone: Mental Status Date Assessment Result Facility NEGATED: Highlighted row Cognitive function [Interpretation] Cognitive status health issues are not documented Disease JM-VTIMJ-Blymuk 310 IVF Work Phone: History of Present [...] of: ELIZABETH Daly documented in this encounter [facility] Healthcare Evaluation note 12-27-2021 Note Date & [...] Patient care instructions given in writting by [facility] Care At Home document. [employer] Other Clinical Note 07-25-2021 Note Date & [...] care. Reviewed plan with Dr. Bruce Aburto, RECEIVING AND PROCESSING SUPERVISOR 07/25/2021 09:22 MD note: ob scan LOLLY: [...] Plan reviewed by Dr. Healy. Petra Harjit RECEIVING AND PROCESSING SUPERVISOR 07/16/21 1409 TC to pt with quant = 3238 form yesterday; normal rise from 728 on 07/02; Pt doing well; no problems with Lovenox. PT transferred to [facility] to schedule OB US for next week at [facility] [place]. Bere Way RN 07/07/2021 11:47 Spoke with patient regarding MUJP=307. Pain=0. Patient states she will begin prometrium BID and Lovenox today. Patient will repeat BHCg on Wednesday when she is at work. Patient aware RN will call her WednesdayJuly 07 with results and plan. Lucy Dunlap R.N.07/03/2021 12:19 Spoke to patient, will start Prometrium 100 mg BID and Lovenox 40 mg BID today (+Protein S deficiency). [place] to f/u with patient tomorrow once HCG level is back. Patient verbalized understanding. Rosibel Sam RN 07/02/2021 13:54 MD note: Reviewed positive test. LMP 7/15, conceived on christy cycle/IC. Plan to get HCG drawn today. Start Prometrium 100mg BID. Start Lovenox 40mg BID SQ. Plan per Dr. Healy. RN to communicate. Petra Lombardi RECEIVING AND PROCESSING SUPERVISOR 07/02/21 1304 Active Problems 16 weeks gestation [...] directed. Peak F (more content not included)... [place] Chief complaint Narrative - Reported 06-19-2021 Note [...] pandemic. Verbal consent obtained for telemedicine visit.[employer] TONGAR-REPVZ-Cdlack 310 IVF Work Phone: History of Present illness Narrative 06-15-2020 Note Date & Type Note Facility 06-15-2020 History of Present illness Narrative IVF Consult:Patient is a 30 year-old who presents for a FET [id number] Hx:06/2020: IOL @ 38 weeks due to [...] contour on HSG - images reviewed from [facility] 08/2018Uterine Cavity Evaluation:Normal uterine cavity on HSG- [...] on therapeutic dosing when Genetic Screening Hx: [email or web address] foresight screen negativePartner History:Franklin Ashley 04[birth year]09[birth year]1990A in past year:2.8 cc125 mil/mL69% vndzwpciEZK=097 million(recent IUI sample)Morph from original SA was 2.8% RB-KVMWL-Fflock 310 IVF Work Phone: Evaluation note Note Date & Type Note Facility Evaluation note Diagnosis Sprain of left ankle, unspecified ligament, initial encounter- Primary documented in this encounter [employer] Phone: Evaluation note Note Date & Type Note Facility Evaluation note Diagnosis Third trimester state, incidental First trimester state, incidental Hypothyroidism, unspecified type ([facility]) Hypothyroidism (acquired) ([facility]) Unspecified hypothyroidism H/O blood clots Excessive growth affecting management of in third trimester, single or unspecified fetus documented in this encounter [facility] Hospital Discharge instructions Attachments Note Date & Type Note Facility Hospital Discharge instructions The following attachments cannot be sent through Care Everywhere.Ankle Sprain ([place])Ankle Sprain: Rehab Exercises ([place])documented in this encounter [employer] Phone: Summary Purpose Family History No Family [...] section and content) DATE CREATED AUTHOR 02/15/2019 [facility] DATE CREATED AUTHOR AUTHOR'S ORGANIZ ATION 11/12/2019 [facility] [place] DATE CREATED AUTHOR AUTHOR'S ORGANIZ ATION 08/09/2020 [facility] DATE CREATED AUTHOR AUTHOR'S ORGANIZ ATION 07/26/2021 [employer] DATE CREATED AUTHOR AUTHOR'S ORGANIZ ATION 01/21/2023 [facility] DATE CREATED AUTHOR AUTHOR'S ORGANIZ ATION 03/06/2023 [facility] DATE CREATED AUTHOR AUTHOR'S ORGANIZ ATION 07/12/2023 [facility] DATE CREATED AUTHOR AUTHOR'S ORGANIZ ATION 10/04/2023 [facility] DATE CREATED AUTHOR AUTHOR'S ORGANIZ ATION 01/15/2024 [facility] DATE CREATED AUTHOR AUTHOR'S ORGANIZ ATION 02/07/2024 [facility] EPIC REASON FOR VISIT (unrecogniz ed section and content) Reason Comments Ankle Pain Rolled ankle during morning run. Swelling to lateral ankle. 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 Reason Comments Routine Visit Care Teams (unrecognized sec tion and content) Visual Education Teacher Relationship Specialty Start Date End Date Evelyn Perez [address] [place] [address] PCP - General Pediatrics 09/22/22 Visual Education Teacher Relationship Specialty Start Date End Date Jesse Regan MD [address] [place] [address] PCP - General Family Medicine 11/30/23 FOR [...] BE BASED ON THE PRIMARY CLINICAL RECORDS. [employer] provides no warranty or guarantee of the accuracy or completeness of information in this document.
[2024-02-22 10:39] VITALS: BP 116/74; PULSE 94
== END 2024-02-22 11:12 | disposition home or self-care (01) ==
LOC: US 06:53 → FBC 09:59
PROVIDERS: Visit Provider Obstetrics & Gynecology
DX: O36.63X0 Maternal care for excessive fetal growth, third trimester, not applicable or unspecified (principal); Z3A.36 36 weeks gestation of pregnancy; E03.9 Hypothyroidism, unspecified
CPT/HCPCS: 76818; 87081

== ENCOUNTER 2024-02-22 21:02 | Outpatient (REF) | payer OTHER, SELFPAY | END 2024-02-22 21:03 | disposition home or self-care (01) | LOC: LAB 21:02 | PROVIDERS: Visit Provider Obstetrics & Gynecology | DX: Z34.93 Encounter for supervision of normal pregnancy, unspecified, third trimester (principal); Z3A.36 36 weeks gestation of pregnancy | CPT/HCPCS: 87081 ==

== ENCOUNTER 2024-02-25 08:40 | Outpatient (OUT) | payer OTHER, SELFPAY ==
--- OUTSIDE RECORDS SUMMARY | 2024-02-25 08:46 | XMS_ITS | CCD ---
Author Organization [facility] Care Team Providers Care Web Assistant Name Role Phone Bruce Mayes Attending [...] HER Unavailable Unavaila ble OBGYN IVF RDMS [id number] 1, MG OBGYN Unavailable Unavailable Lapkathrine King [...] Admitting Unavailable Evelyn Perez Primary Care Unavailable cL Waite Attending Unavailable Jesse Regan MD Primary Care Provider Iftikhar DIAZCARROTER, Zoya Cheung Attending Evelyn Rboertson MD Primary Care Zamzam vailasánchez Perez MD, Evelyn Gracia Primary Care Zamzam vailable Link GREGORIO, Zoya Cheung Attending Zamzamva DEMARIO Hoang Attending Unavailable ELSA, BERE Attending Unavailable GISSEL, DEMARIO Attending Unavailable ELSA, BERE Attending Unavailable ELSA, BERE Attending Unavailable GISSEL, DEMARIO Attending Unavailable ELSA, BERE Attending Unavailable GISSEL, DEMARIO Attending Unavailable Allergies Allergy Classification Reported Allergen(s) Allergy Type Date of Onset Reaction(s) Facility Progesterone (2 sources) Progesterone; Translations: [Progesterone OIL] Drug Allergy [id number] n 310 IVF Work Phone: (16 sources) Progesterone; Translations: [Progesterone OIL] Drug Allergy 2 [facility] (2 sources) sesame seed extract Drug Allergy [facility] Repository (2 sources) Progesterone Drug Allergy 2 [facility] (1 source) No Known Medication Allergies; Translations: [No Known Medication Allergies] Propensity to adverse reactions to drug (disorder) [facility] Repository Medications Current Medications Medication Drug [...] Active Start: 09-22-2022 take 1 tablet by [facility] four times daily metoclopramide (REGLAN) 10 [...] Kelechi Gage MD Start : 14-Aug-2019 Active [id number] 200 actuat albuterol 0.09 mg/actuat metered dose inhaler (15 sources) beta2-Adrenergic Agonist Start: 05-19-2019 Ventolin HFA 108 (90 Base) MCG/ACT Inhalation Aerosol Solution Quantity: 18 Refills: 0 Ordered: 5-Franklin-2019 DO Start : 19-May-2019 Active Start: 05-19-2019 [...] DO Start : 19-Jan-2019 Active BD Disp Henry 27G X 1/2 (19 sources) Start: 10-03-2019 BD Disp Needle s 27G X 1/2 USE DIRECTED. Quantity: 2 Refills: 2 Shahla Healy MD Start : 03-Oct-2019 Active chorionic gonadotropin 93925 unt/ml injectable solution (19 sources) Gonadotropin Start: 10-03-2019 Chorionic Gonadotropin 93525 UNIT Intramuscular Solution Reconstituted USE DIRECTED. Quantity: [...] UNIT Daily Quantity: 1 Refills: 4 Shahla Haely MD Start : 03-Oct-2019 Active 0.42 ML [...] Start : 25-Dec-2019 Active Peak Flow Meter Riley Rang Device (3 sources) Start: 01-23-2020 Peak Flow Mete r Riley Rang Device USE DIRECTED. Quantity: 1 Refills: [...] refills. Continue with anticoagulation as prescribed by OCEANOLOGY TEACHER, patient is currently 30 weeks gestation. Follow-up [...] embolism Historical No qualifying data Procedure/Surgical History [place] Teeth Removal (2005) IVF (11/15/2018) Medications Dulera [...] Link Zoya PERKINS 01/10/24 12:40 EST Normal [facility] Phone Note - Heme Onc-medica tion questionon 07-12-2023 Phone Note - Heme Onc-medication question Phone Call Information: Patient Demographics: Name: KIARA ASHLEY Date: 1990 Address: [address] [place] [address] Date and Time: 12-Jul-2023 09:31 Caller Information: call from Call From: patient Caller Name: Kiara Primary Phone Number: [phone] Reason for Call: Reason for Callmedication question Message: Message: Patient found out yesterday that she is so she will need to double her Lovenox Asking for new RX Caller Informed Of: Per Dr. Mayes: she needs lovenox 40 mg SC BID for first trimester Team Communication: Clinician note: contacted patient Disposition: Rx sent by [facility] Team Communications: Spoke with the patient. States she is positive for . Provided update from Dr. Mayes above. Pt asked for script to be sent to [facility]. Script sent. Pt had no [...] 09:57 by Harmony Ross (N MGR) Normal [facility] XR ANKLE LEFT (MIN [...] Dario William MD 02/27/23 Final result Normal [facility] 1. No acute osseous abnormality involving the left ankle. [facility] EXAMINATION: THREE XRAY VIEWS OF THE LEFT ANKLE 02/27/2023 11:46 am COMPARISON: None. HISTORY: ORDERING SYSTEM PROVIDED HISTORY: pain, swelling TECHNOLOGIST PROVIDED HISTORY: pain, swelling FINDINGS: The bone mineralization is within normal limits. The ankle mortise is stable. No acute fractures or dislocations are seen. There is no soft tissue swelling. [facility] Dario William MD - 02/27/2023 [...] acute osseous abnormality involving the left ankle. [facility] Phone: Radiology Study observation (narrative) [facility] Phone: XR ANKLE LEFT (MIN 3 VIEWS)O rdered By: Dario Stewart on 02-27-2023 [facility] Phone: PAP ACOG PANEL 2: 30 to 65on 01-19-2023 . . Normal [facility] Comment on above: Result Comment: Perf ormed at: WB Performed By: #### [id number] #### [facility] [address] [place] [address] Dr. Claire Mayes Age Gdln ACOG Testing 31- Normal [facility] Comment on above: Performed By: #### [id number] #### [facility] [address] [address] [address] Claire Mayes DIAGNOSIS: Comment Normal [facility] Comment on above: Result Comment: NEGA TIVE FOR INTRAEPITHELIAL LESION OR MALIGNANCY. Performed at: WB Performed By: #### [id number] #### [facility] [address] [address] [address] Claire Mayes HPV Aptima Negative Normal Negative [facility] Comment on above: Result Comment: This nucleic acid amplification test detects fourteen high-risk HPV types (16,18,31,33,35,39,45,51,52,56,58,59,66,68) without differentiation. Performed at: =G Performed By: #### [id number] #### [facility] [address] [address] [address] Claire Mayes HPV Genotype Reflex Comment Normal [facility] Comment on above: Result Comment: Crit eria not met, HPV Genotype not performed. Performed at: WB Performed By: #### 4 [id number] #### [facility] [address] [address] [address] Claire Mayes Methodology: Comment Normal [facility] Comment on above: Result Comment: This liquid based ThinPrep(R) pap test was screened with the use of an image guided system. Performed at: WB Performed By: #### [id number] #### [facility] [address] [place] [address] Dr. Claire Mayes Note: Comment Normal [facility] Comment on above: Result Comment: The Pap smear is a screening test designed to aid in the detection of premalignant and malignant conditions of the uterine cervix. It is not a diagnostic procedure and should not be used as the sole means of detecting cervical cancer. Both false-positive and false-negative reports do occur. . Performed at: WB Performed By: #### [id number] #### [facility] [address] [place] [address] Dr. Claire Mayes Performed by: Comment Normal [facility] Comment on above: Result Comment: Sherlyn Wright, Director Personal (ASCP) Performed at: WB Performed By: #### [id number] #### [facility] [address] [place] [address] Dr. Claire Mayes Specimen adequacy: Comment Normal [facility] Comment on above: Result Comment: Sati sfactory for evaluation. No endocervical component is identified. Performed at: WB Performed By: #### [id number] #### [facility] [address] [place] [address] Dr. Claire Mayes CBC with Diffon 09-22-2022 Abs. Basophil 0.03 k/uL Normal 0.00-0.20 [facility] Comment on above: Performed By: #### L BJ BUCK, CP #### [facility] [address] [place] [address] Dr. [place], [place] [id number] C4 Planner: Jesse Curry MD Abs.Imm.Granulocy te 0.04 k/uL Normal 0.00-0.30 [facility] Comment on above: Performed By: #### L BJ BUCK, CP #### [facility] [address] [place] [address] C4 Planner: Jesse Curry MD Abs.Neutrophil (Seg) 12.54 k/uL High 1.50-8.10 [facility] Comment on above: Performed By: #### L IP, CDP, CP #### [facility] [address] [place] [address] Dr. [place], [place] [address] C4 Planner: Jesse Curry MD Basophils/100 WBC (Bld) 0 % Normal 0-2 [facility] Comment on above: Performed By: #### L IP, CDP, CP #### [address] [place], [place] [address] C4 Planner: Jesse Curry MD Eosinophils (Bld) [#/Vol] 0.16 10*3/uL Normal 0.00-0.44 [facility] Comment on above: Performed By: #### L IP, CDP, CP #### [address] [place], [place] [address] C4 Planner: Jesse Curry MD Eosinophils/100 WBC (Bld) 1 % Normal 1-4 [facility] Comment on above: Performed By: #### L IP, CDP, CP #### [address] [place], [facility]83 C4 Planner: Jesse Curry MD Erythrocyte distribution width (RBC) [Ratio] 13.6 % Normal 11.8-14.4 [facility] Comment on above: Performed By: #### L IP, CDP, CP #### [address] [place], [facility]83 C4 Planner: Jesse Curry MD Hematocrit (Bld) [Volume fraction] 46.4 % Normal 36.3-47.1 [facility] Comment on above: Performed By: #### L IP, CDP, CP #### [address] [place], [facility]83 C4 Planner: Jesse Curry MD Hemoglobin (Bld) [Mass/Vol] 15.6 g/dL High 11.9-15.1 [facility] Comment on above: Performed By: #### L IP, CDP, CP #### [facility] [address] [place], [facility]83 C4 Planner: Jesse Curry MD Immature granulocytes/100 WBC (Bld) 0 % Normal 0 [facility] Comment on above: Performed By: #### L IP, CDP, CP #### [facility] [address] [place], [facility]83 C4 Planner: Jesse Curry MD Lymphocytes (Bld) [#/Vol] 0.98 10*3/uL Low 1.10-3.70 [facility] Comment on above: Performed By: #### L IP, CDP, CP #### [address] [place], [facility]83 C4 Planner: Jesse Curry MD Lymphocytes/100 WBC (Bld) 7 % Low 24-43 [facility] Comment on above: Performed By: #### L IP, CDP, CP #### [address] [place], [facility]83 C4 Planner: Jesse Curry MD MCH (RBC) [Entitic mass] 30.4 pg Normal 25.2-33.5 [facility] Comment on above: Performed By: #### L IP, CDP, CP #### [address] [place], [facility]83 C4 Planner: Jesse Curry MD MCHC (RBC) [Mass/Vol] 33.6 g/dL Normal 28.4-34.8 [facility] Comment on above: Performed By: #### L IP, CDP, CP #### [address] [place] [address] C4 Planner: Jesse Curry MD MCV (RBC) [Entitic vol] 90.3 fL Normal 82.6-102.9 [facility] Comment on above: Performed By: #### L IP, CDP, CP #### [facility] [address] [place], [place] [id number] C4 Planner: Jesse Curry MD Monocytes (Bld) [#/Vol] 0.58 10*3/uL Normal 0.10-1.20 [facility] Comment on above: Performed By: #### L IP, CDP, CP #### [facility] [address] [place], [facility]83 C4 Planner: Jesse Curry MD Monocytes/100 WBC (Bld) 4 % Normal 3-12 [facility] Comment on above: Performed By: #### L IP, CDP, CP #### [facility] [address] [place], [place] [address] C4 Planner: Jesse Curry MD Neutrophil (Seg) 88 % High 36-65 [facility] Comment on above: Performed By: #### L IP, CDP, CP #### [facility] [address] [place] [address] Dr. [place], [facility]83 C4 Planner: Jesse Curry MD NRBC Automated 0.0 per 100 WBC Normal 0.0 [facility] Comment on above: Performed By: #### L IP, CDP, CP #### [address] [place], [facility]83 C4 Planner: Jesse Curry MD Platelet mean volume (Bld) [Entitic vol] 9.9 fL Normal 8.1-13.5 [facility] Comment on above: Performed By: #### L IP, CDP, CP #### [facility] [address] [place], [facility]83 C4 Planner: Jesse Curry MD Platelets (Bld) [#/Vol] 299 10*3/uL Normal 138-453 [facility] Comment on above: Performed By: #### L IP, CDP, CP #### [facility] [address] [place], [facility]83 C4 Planner: Jesse Curry MD RBC (Bld) [#/Vol] 5.14 10*6/uL High 3.95-5.11 [facility] Comment on above: Performed By: #### L BJ BUCK, CP #### [facility] [address] [place] [address] C4 Planner: Jesse Curry MD WBC (Bld) [#/Vol] 14.3 10*3/uL High 3.5-11.3 [facility] Comment on above: Performed By: #### L BJ BUCK, CP #### [facility] [address] [place] [address] C4 Planner: Jesse Curry MD CT ABDOMEN PELVIS W [...] A Maldonado DO 09/22/22 Final result Normal [facility] Comp Metabolic Profon 2021 Albumin [Mass/Vol] 4.7 g/dL Normal 3.5-5.2 [facility] Comment on above: Performed By: #### L IP, CDP, CP #### [facility] [address] [place] [address] [place] [address] C4 Planner: Jesse Curry MD Albumin/Glob Ratio 2.0 Normal 1.0-2.5 [facility] Comment on above: Performed By: #### L IP CDP, CP #### [address] [place] [address] C4 Planner: Jesse Curry MD Alkaline Phos 77 U/L Normal 35-104 [facility] Comment on above: Performed By: #### L CIELO CDP, CP #### [address] [place] [address] C4 Planner: Jesse Curry MD ALT [Catalytic activity/Vol] 10 U/L Normal 5-33 [facility] Comment on above: Performed By: #### L IP, CDP, CP #### [facility] [address] [place] [address] Dr. [place], [place] [id number] C4 Planner: Jesse Curry MD Anion gap [Moles/Vol] 12 mmol/L Normal 9-17 [facility] Comment on above: Performed By: #### L IP, CDP, CP #### [address] [place] [address] C4 Planner: Jesse Curry MD AST [Catalytic activity/Vol] 14 U/L Normal <32 [facility] Comment on above: Performed By: #### L IP, CDP, CP #### [facility] [address] [place], [place] [id number] C4 Planner: Jesse Curry MD Bilirubin [Mass/Vol] 0.6 mg/dL Normal 0.3-1.2 [facility] Comment on above: Performed By: #### L IP, CDP, CP #### [facility] [address] [place], [place] [id number] C4 Planner: Jesse Curry MD BUN/CRE Ratio 31 High 9-20 [facility] Comment on above: Performed By: #### L IP, CDP, CP #### [address] [place], [place] [id number] C4 Planner: Jesse Curry MD Calcium [Mass/Vol] 9.8 mg/dL Normal 8.6-10.4 [facility] Comment on above: Performed By: #### L IP, CDP, CP #### [facility] [address] [place] [address] Dr. [place], [place] [id number] C4 Planner: Jesse Curry MD Chloride [Moles/Vol] 104 mmol/L Normal 98-107 [facility] Comment on above: Performed By: #### L IP, CDP, CP #### [address] [place], [place] 9272383 C4 Planner: Jesse Curry MD CO2 [Moles/Vol] 22 mmol/L Normal 20-31 [facility] Comment on above: Performed By: #### L IP, CDP, CP #### [facility] [address] [place] [address] Dr. [place], [place] [id number] C4 Planner: Jesse Curry MD Creatinine [Mass/Vol] 0.85 mg/dL Normal 0.50-0.90 [facility] Comment on above: Performed By: #### L IP, CDP, CP #### [facility] [address] [place] [address] [place] [address] C4 Planner: Jesse Curry MD GFR/1.73 sq M.predicted among non-blacks MDRD (S/P/Bld) [Vol rate/Area] mL/min/{1.73_m2} Normal >60 [facility] Comment on above: Result Comment: [...] By: #### L IP CDP, CP #### [address] [place] [address] C4 Planner: Jesse Curry MD Glucose [Mass/Vol] 109 mg/dL High 70-99 [facility] Comment on above: Performed By: #### L IP CDP, CP #### [address] [place] [address] C4 Planner: Jesse Curry MD Potassium [Moles/Vol] 4.0 mmol/L Normal 3.7-5.3 [facility] Comment on above: Performed By: #### L IP CDP, CP #### [address] [place] [address] C4 Planner: Jesse Curry MD Protein [Mass/Vol] 7.1 g/dL Normal 6.4-8.3 [facility] Comment on above: Performed By: #### L IP CDP, CP #### [address] [place] [address] C4 Planner: Jesse Curry MD Sodium [Moles/Vol] 138 mmol/L Normal 135-144 [facility] Comment on above: Performed By: #### L IP, CDP, CP #### [facility] [address] [place] [address] Dr. [place], [place] [id number] C4 Planner: Jesse Curry MD Urea nitrogen [Mass/Vol] 26 mg/dL High 6-20 [facility] Comment on above: Performed By: #### L BJ BUCK, CP #### [facility] [address] [place] [address] C4 Planner: Jesse Curry MD HCG, ,Urineon 09-22 Beta HCG ( test) Ql (U) Negative Normal NEG [facility] Comment on above: Result Comment: Spec imens with hCG levels near the threshold of the test (25 mIU/mL) may give a negative or indeterminate result. In such cases, another test should be performed with a new specimen in 48-72 hours. If early is suspected clinically in this setting, correlation with quantitative serum b-hCG level is suggested. [facility] has confirmed the use of plasma for this test. This has not been cleared or approved by the U.[place]. Food and Drug Administration. The FDA has determined that such clearance is not necessary. Performed By: #### U HCG #### [address] [place] [address] C4 Planner: Jesse Curry MD Lactic Acidon 09-22-2022 Lactate [Moles/Vol] 1.8 mmol/L Normal 0.5-2.2 [facility] Comment on above: Performed By: #### L ACTIC #### [facility] [address] [place] [address] C4 Planner: Jesse Curry MD Lipaseon 09-22-2022 Lipase [Catalytic activity/Vol] 39 U/L Normal 13-60 [facility] Comment on above: Performed By: #### L BJ BUCK, CP #### [facility] [address] [place] [address] C4 Planner: Jesse Curry MD UA w/Reflex Cultureon 2021 Bilirubin, SemiQt,Ur Negative Normal NEG [facility] Comment on above: Performed By: #### U MICAO, UAX #### [facility] [address] [place] [address] Dr. [place], [place] [id number] C4 Planner: Jesse Curry MD Blood, Urine Negative Normal NEG [facility] Comment on above: Performed By: #### U MICAO, UAX #### [facility] [address] [place], [place] [id number] C4 Planner: Jesse Curry MD Clarity (U) Clear Normal CLEAR [facility] Comment on above: Performed By: #### U MICAO, UAX #### [address] [place], [place] [id number] C4 Planner: Jesse Curry MD Color (U) Yellow Normal YEL [facility] Comment on above: Performed By: #### U MICAO, UAX #### [address] [place], [place] [id number] C4 Planner: Jesse Curry MD Glucose Ql (U) Negative Normal NEG [facility] Comment on above: Performed By: #### U MICAO, UAX #### [address] [place], [place] [id number] C4 Planner: Jesse Curry MD Ketones Ql (U) Negative Normal NEG [facility] Comment on above: Performed By: #### U MICAO, UAX #### [facility] [address] [place] [address] Dr. [place], [place] [id number] C4 Planner: Jesse Curry MD Leukocyte esterase Test strip Ql (U) Negative Normal NEG [facility] Comment on above: Performed By: #### U MICAO, UAX #### [address] [place], [place] [id number] C4 Planner: Jesse Curry MD Nitrite,Ur Negative Normal NEG [facility] Comment on above: Performed By: #### U MICAO, UAX #### [facility] [address] [place], [place] [id number] C4 Planner: Jesse Curry MD PH,Ur 8.0 Normal 5.0-9.0 [facility] Comment on above: Performed By: #### U MICAO, UAX #### [facility] [address] [place], [place] [id number] C4 Planner: Jesse Curry MD Protein Ql (U) Negative Normal NEG [facility] Comment on above: Performed By: #### U MICAO, UAX #### [facility] [address] [place], [place] [id number] C4 Planner: Jesse Curry MD Spec. Blanchard,Ur 1.020 Normal 1.010-1.020 [facility] Comment on above: Performed By: #### U MICAO, UAX #### [facility] [address] [place] [address] Dr. [place], [place] [id number] C4 Planner: Jesse Curry MD Urobilinogen,Ur Normal Normal NORM [facility] Comment on above: Performed By: #### U MICAO, UAX #### [address] [place], [place] [id number] C4 Planner: Jesse Curry MD Urinalysis,Microon 2 Bacteria TRACE Abnormal NONE [facility] Comment on above: Performed By: #### U MICAO, UAX #### [facility] [address] [place] [address] Dr. [place], [place] [id number] C4 Planner: Jesse Curry MD Epithelial cells LM Ql (Urine sed) 0 TO 2 Normal 0-25 [facility] Comment on above: Performed By: #### U MICAO, UAX #### [facility] [address] [place] [address] Dr. [place], [place] [id number] C4 Planner: Jesse Curry MD Urine RBC's None Normal 0-2 [facility] Comment on above: Performed By: #### U DARIO, UAX #### [facility] [address] [place] [address] C4 Planner: Jesse Curry MD Urine WBC's 0 TO 2 Normal 0-5 [facility] Comment on above: Performed By: #### U DARIO, UAX #### [facility] [address] [place] [address] C4 Planner: Jesse Curry MD CBC AUTO DIFFon 02-20-2022 BASO # 0.1 103/ul Normal 0.0-0.1 [facility] Comment on above: Performed By: #### C BC #### [facility] [address] [place] [address] Dr. Claire Mayes Basophils/100 WBC (Bld) 0.8 % Normal 0.2-2.0 [facility] Comment on above: Performed By: #### C BC #### [facility] [address] [place] [address] Dr. Claire Mayes EO # 0.2 103/ul Normal 0.0-0.7 [facility] Comment on above: Performed By: #### C BC #### [facility] [address] [place] [address] Dr. Claire Mayes Eosinophils/100 WBC (Bld) 0.9 % Normal 0.9-7.0 [facility] Comment on above: Performed By: #### C BC #### [facility] [address] [place] [address] Dr. Claire Mayes Erythrocyte distribution width (RBC) [Ratio] 15.0 % Normal 11.0-15.0 [facility] Comment on above: Performed By: #### C BC #### [facility] [address] [place] [address] Dr. Claire Mayes Hematocrit (Bld) [Volume fraction] 31.3 % Critically low 36.0-48.0 [facility] Comment on above: Performed By: #### C BC #### [facility] [address] [place] [address] Dr. Claire Mayes Hemoglobin (Bld) [Mass/Vol] 10.3 g/dL Critically low 12.0-16.0 [facility] Comment on above: Performed By: #### C BC #### [facility] [address] [place] [address] Dr. Claire Mayes IG # 0.21 10e3/ul Critically high 0.00-0.03 [facility] Comment on above: Performed By: #### C BC #### [facility] [address] [place] [address] Dr. Claire Mayes IG % 1.3 % Critically high 0.0-0.5 [facility] Comment on above: Performed By: #### C BC #### [facility] [address] [place] [address] Dr. Claire Mayes LYMPH # 2.1 103/ul Normal 1.2-3.8 [facility] Comment on above: Performed By: #### C BC #### [facility] [address] [place] [address] Dr. Claire Mayes Lymphocytes/100 WBC (Bld) 12.6 % Critically low 20.5-60.0 [facility] Comment on above: Performed By: #### C BC #### [facility] [address] [place] [address] Dr. Claire Mayes MANUAL DIFF REQ NO Normal [facility] Comment on above: Performed By: #### C BC #### [facility] [address] [place] [address] Dr. Claire Mayes MCH (RBC) [Entitic mass] 29.8 pg Normal 26.7-34.0 [facility] Comment on above: Performed By: #### C BC #### [facility] [address] [place] [address] Dr. Claire Mayes MCHC (RBC) [Mass/Vol] 32.9 g/dL Normal 29.9-35.2 [facility] Comment on above: Performed By: #### C BC #### [facility] [address] [place] [address] Dr. Claire Mayes MCV (RBC) [Entitic vol] 90.5 fL Normal 81.0-99.0 [facility] Comment on above: Performed By: #### C BC #### [facility] [address] [place] [address] Dr. Claire Mayes MONO # 0.8 103/ul Normal 0.3-0.8 [facility] Comment on above: Performed By: #### C BC #### [facility] [address] [place] [address] Dr. Claire Mayes Monocytes/100 WBC (Bld) 5.1 % Normal 1.7-12.0 [facility] Comment on above: Performed By: #### C BC #### [facility] [address] [place] [address] Dr. Claire Mayes NEUT # 13.2 103/ul Critically high 1.4-6.5 [facility] Comment on above: Performed By: #### C BC #### [facility] [address] [place] [address] Dr. Claire Mayes Neutrophils/100 WBC (Bld) 79.3 % Critically high 43.0-75.0 [facility] Comment on above: Performed By: #### C BC #### [facility] [address] [place] [address] Dr. Claire Mayes Platelet mean volume (Bld) [Entitic vol] 10.4 fL Normal 9.5-13.5 [facility] Comment on above: Performed By: #### C BC #### [facility] [address] [place] [address] Dr. Claire Mayes PLT 233 103/ul Normal 150-450 [facility] Comment on above: Performed By: #### C BC #### [facility] [address] [place], [place] [id number] Dr. Claire Mayes RBC 3.46 106/ul Critically low 4.20-5.40 [facility] Comment on above: Performed By: #### C BC #### [facility] [address] [place] [address] Dr. Claire Mayes WBC 16.6 103/ul Critically high 4.0-11.0 [facility] Comment on above: Performed By: #### C BC #### [facility] [address] [place] [address] Dr. Claire Mayes CBC AUTO DIFFon 02-18-2022 BASO # 0.1 103/ul Normal 0.0-0.1 [facility] Comment on above: Performed By: #### C BC #### [facility] [address] [place] [address] Dr. Claire Mayes Basophils/100 WBC (Bld) 0.7 % Normal 0.2-2.0 [facility] Comment on above: Performed By: #### C BC #### [facility] [address] [place] [address] Dr. Claire Mayes EO # 0.2 103/ul Normal 0.0-0.7 [facility] Comment on above: Performed By: #### C BC #### [facility] [address] [place] [address] Dr. Claire Mayes Eosinophils/100 WBC (Bld) 1.2 % Normal 0.9-7.0 [facility] Comment on above: Performed By: #### C BC #### [facility] [address] [place] [address] Dr. Claire Mayes Erythrocyte distribution width (RBC) [Ratio] 15.0 % Normal 11.0-15.0 [facility] Comment on above: Performed By: #### C BC #### [facility] [address] [place] [address] Dr. Claire Mayes Hematocrit (Bld) [Volume fraction] 35.1 % Critically low 36.0-48.0 [facility] Comment on above: Performed By: #### C BC #### [facility] [address] [place] [address] Dr. Claire Mayes Hemoglobin (Bld) [Mass/Vol] 11.8 g/dL Critically low 12.0-16.0 [facility] Comment on above: Performed By: #### C BC #### [facility] [address] [place] [address] Dr. Claire Mayes IG # 0.30 10e3/ul Critically high 0.00-0.03 [facility] Comment on above: Performed By: #### C BC #### [facility] [address] [place] [address] Dr. Claire Mayes IG % 1.9 % Critically high 0.0-0.5 [facility] Comment on above: Performed By: #### C BC #### [facility] [address] [place] [address] Dr. Claire Mayes LYMPH # 2.9 103/ul Normal 1.2-3.8 [facility] Comment on above: Performed By: #### C BC #### [facility] [address] [place] [address] Dr. Claire Mayes Lymphocytes/100 WBC (Bld) 18.5 % Critically low 20.5-60.0 [facility] Comment on above: Performed By: #### C BC #### [facility] [address] [place] [address] Dr. Claire Mayes MANUAL DIFF REQ NO Normal [facility] Comment on above: Performed By: #### C BC #### [facility] [address] [place] [address] Dr. Claire Mayes MCH (RBC) [Entitic mass] 30.2 pg Normal 26.7-34.0 [facility] Comment on above: Performed By: #### C BC #### [facility] [address] [place] [address] Dr. Claire Mayes MCHC (RBC) [Mass/Vol] 33.6 g/dL Normal 29.9-35.2 [facility] Comment on above: Performed By: #### C BC #### [facility] [address] [place] [address] Dr. Claire Mayes MCV (RBC) [Entitic vol] 89.8 fL Normal 81.0-99.0 [facility] Comment on above: Performed By: #### C BC #### [facility] [address] [place] [address] Dr. Claire Mayes MONO # 0.7 103/ul Normal 0.3-0.8 [facility] Comment on above: Performed By: #### C BC #### [facility] [address] [place] [address] Dr. Claire Mayes Monocytes/100 WBC (Bld) 4.7 % Normal 1.7-12.0 [facility] Comment on above: Performed By: #### C BC #### [facility] [address] [place] [address] Dr. Claire Mayes NEUT # 11.3 103/ul Critically high 1.4-6.5 [facility] Comment on above: Performed By: #### C BC #### [facility] [address] [place] [address] Dr. Claire Mayes Neutrophils/100 WBC (Bld) 73.0 % Normal 43.0-75.0 [facility] Comment on above: Performed By: #### C BC #### [facility] [address] [place] [address] Dr. Claire Mayes Platelet mean volume (Bld) [Entitic vol] 10.8 fL Normal 9.5-13.5 [facility] Comment on above: Performed By: #### C BC #### [facility] [address] [place] [address] Dr. Claire Mayes PLT 233 103/ul Normal 150-450 [facility] Comment on above: Performed By: #### C BC #### [facility] [address] [place] [address] Dr. Claire Mayes RBC 3.91 106/ul Critically low 4.20-5.40 [facility] Comment on above: Performed By: #### C BC #### [facility] [address] [place] [address] Dr. Claire Mayes WBC 15.5 103/ul Critically high 4.0-11.0 [facility] Comment on above: Performed By: #### C BC #### [facility] [address] [place] [address] Dr. Claire Mayes Covid-19 PCR ([facility])on SARS-CoV-2 (COVID-19) RNA FERDINAND+probe Ql (Unsp spec) Not detected Normal NOT DETECTED [facility] Comment on above: Result Comment: When [...] for this test is supported by the Mobile of Health and Human Service's declaration that [...] used). Performed By: #### C VDTBH #### [facility] [address] [place] [address] Dr. Claire Mayes DRUG SCREEN RAPID (URINE)on 02-18-2022 AMP Negative Normal NEGATIVE [facility] Comment on above: Performed By: #### D RUGRPD #### [facility] [address] [place] [address] Dr. Claire Mayes BAR Negative Normal NEGATIVE [facility] Comment on above: Performed By: #### D RUGRPD #### [facility] [address] [place] [address] Dr. Claire Mayes BUP Negative Normal NEGATIVE [facility] Comment on above: Performed By: #### D RUGRPD #### [facility] [address] [place] [address] Dr. Claire Mayes BZO Negative Normal NEGATIVE [facility] Comment on above: Performed By: #### D RUGRPD #### [facility] [address] [place] [address] Dr. Claire Mayes KIT Negative Normal NEGATIVE [facility] Comment on above: Performed By: #### D RUGRPD #### [facility] [address] [place] [address] Dr. Claire Mayes CUT-OFFS SEE BELOW Normal [facility] Comment on above: Result Comment: AMP [...] ng/mL Performed By: #### D RUGRPD #### [facility] [address] [place] [address] Dr. Claire Mayes DRUG CUT HEADER DRUG CLASS TEST SYST EM CUT-OFF CONCENTRATIONS ARE FOLLOWS: Normal [facility] Comment on above: Performed By: #### D RUGRPD #### [facility] [address] [address] [address] Claire Mayes mAMP Negative Normal NEGATIVE [facility] Comment on above: Performed By: #### D RUGRPD #### [facility] [address] [address] [address] Claire Mayes MTD Negative Normal NEGATIVE [facility] Comment on above: Performed By: #### D RUGRPD #### [facility] [address] [address] [address] Claire Mayes OPI Negative Normal NEGATIVE [facility] Comment on above: Performed By: #### D RUGRPD #### [facility] [address] [address] [address] Claire Mayes OXY Negative Normal NEGATIVE [facility] Comment on above: Performed By: #### D RUGRPD #### [facility] [address] [address] [address] lCaire Mayes PCP Negative Normal NEGATIVE [facility] Comment on above: Performed By: #### D RUGRPD #### [facility] [address] [address] [address] Claire Mayes PPX Negative Normal NEGATIVE [facility] Comment on above: Performed By: #### D RUGRPD #### [facility] [address] [address] [address] Claire Mayes TCA Negative Normal NEGATIVE [facility] Comment on above: Performed By: #### D RUGRPD #### [facility] [address] [place] [address] Dr. Claire Mayes THC Negative Normal NEGATIVE [facility] Comment on above: Performed By: #### D RUGRPD #### [facility] [address] [address] [address] Claire Mayes TYPE AND SCREENon 02-18-2022 TYPE AND SCREEN Negative Normal [facility] Comment on above: Performed By: #### T NS #### [facility] [address] [place] [address] Dr. Claire Mayes US PREG BIOPHY W [...] by: JESSE THOMAS Date: 2022-02-17 14:27 Normal [facility] US PREG BIOPHY W NON STRESSo [...] by: BLU FELIPE Date: 2022-02-10 16:40 Normal [facility] GROUP B STREP CULTUREon 01-14 S. agalactiae Ag Ql (Unsp spec) Culture Observations: Beta Strep called to Belgica Lange at office 02/04/22 @[address] [place] [address] Isolate 1 Streptococcus agalactiae Heavy growth of ORGANISM 1 Streptococcus agalactiae ANTIBIOTIC M.I.C RX STATUS Benzylpenicillin <=0.06 S F Ampicillin <=0.25 S F Cefotaxime <=0.12 S F Ceftriaxone <=0.12 S F Levofloxacin 0.5 S F Erythromycin 2 R F Clindamycin <=0.25 S F Linezolid <=2 S F Vancomycin 0.5 S F Tetracycline >=16 R F Normal [facility] Comment on above: Performed By: #### G BSCX #### [facility] [address] [place] [address] Dr. Claire Mayes US PREG BIOPHY W [...] JESSE THOMAS Date: 2022-02-03 16:02 Normal [facility] LMPon 06-19-2021 Last menstrual period start date [id number] JA-[id number]-Wexzh n 310 IVF Work Phone: VISUAL EFFECTS EDITOR - Office Visiton VISUAL EFFECTS EDITOR - Office Visit Diagnoses/Problems Assessed Irregular menses (626.4) (N92.6) Female infertility (628.9) (N97.9) Protein S deficiency (289.81) (D68.59) Occupation [employer] ED Provider Impressions 30 year-old desires [...] ] Imaging: Saline US, can do at [place] [x ] Vitamin D, TSH, prolactin [ [...] contour on HSG - images reviewed from [facility] 08/2018 Uterine Cavity Evaluation: Normal uterine [...] Peak E2 1871--> IM P4--> 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 Hx: LMP: 05/29/21 Menstrual cycles: Have been fairly regular for the past 3 months; 30-35 days Pap smear: 2018, up to date Mammogram: None PMH/Surg Hx/Social Hx: See below Hx of Clotting disorders: Yes- Protein S deficiency Currently on Lovenox 40 mg daily Was on Lovenox 60 mg daily prior to Needs to be on therapeutic dosing when Genetic Screening Hx: [employer] foresight screen negative Partner History: Franklin Ashley 04/09/1990 SA in past year: 2.8 cc 125 mil/mL 69% motility KUD=068 million (recent IUI sample) Morph from original SA was 2.8% Active Problems Problems 16 weeks gest (more content not included)... Normal [employer] CBC AND DIFFERENTIALon 08-06 % AUTOMATED IMMATURE GRAN 0.3 % Normal 0.0 - 0.[address] [facility] Comment on above: Result Comment: Graciela ture Granulocyte Count (IG) includes promyelocytes, myelocytes and metamyelocytes but does not include bands. Percent differential counts (%) should be interpreted in the context of the absolute cell counts (cells/L). Performed By: #### C BCDF #### [address] [place] [address] Basophils (Bld) [#/Vol] 0.09 10*3/uL Normal 0.00 - 0.[address] [facility] Comment on above: Performed By: #### C BCDF #### [address] [place] [address] Basophils/100 WBC (Bld) 0.9 % Normal 0.0 - 2.[address] [facility] Comment on above: Performed By: #### C BCDF #### [address] [place] [address] Eosinophils (Bld) [#/Vol] 0.23 10*3/uL Normal 0.00 - 0.[address] [facility] Comment on above: Performed By: #### C BCDF #### [address] [place] [address] Eosinophils/100 WBC (Bld) 2.4 % Normal 0.0 - 6.[address] [facility] Comment on above: Performed By: #### C BCDF #### [address] [place] [address] Erythrocyte distribution width (RBC) [Ratio] 14.3 % Normal 11.5 - 14.[address] [facility] Comment on above: Performed By: #### C BCDF #### [address] [place] [address] Hematocrit (Bld) [Volume fraction] 40.4 % Normal 36.0 - 46.[address] [facility] Comment on above: Performed By: #### C BCDF #### [address] [place] [address] Hemoglobin (Bld) [Mass/Vol] 12.9 g/dL Normal 12.0 - 16.[address] [facility] Comment on above: Performed By: #### C BCDF #### [address] [place] [address] Lymphocytes (Bld) [#/Vol] 2.44 10*3/uL Normal 1.20 - 4.[address] [facility] Comment on above: Performed By: #### C BCDF #### [address] [place] [address] Lymphocytes/100 WBC (Bld) 25.7 % Normal 13.0 - 44.[address] [facility] Comment on above: Performed By: #### C BCDF #### [address] [place] [address] MCHC (RBC) [Mass/Vol] 31.9 g/dL Low 32.0 - 36.[address] [facility] Comment on above: Performed By: #### C BCDF #### [address] [place] [address] MCV (RBC) [Entitic vol] 88 fL Normal 80 - [address] [facility] Comment on above: Performed By: #### C BCDF #### [address] [place] [address] Monocytes (Bld) [#/Vol] 0.55 10*3/uL Normal 0.10 - 1.[address] [facility] Comment on above: Performed By: #### C BCDF #### [address] [place] [address] Monocytes/100 WBC (Bld) 5.8 % Normal 2.0 - 10.[address] [facility] Comment on above: Performed By: #### C BCDF #### [address] [place] [address] Neutrophils (Bld) [#/Vol] 6.15 10*3/uL Normal 1.20 - 7.[address] [facility] Comment on above: Performed By: #### C BCDF #### [address] [place] [address] Neutrophils/100 WBC (Bld) 64.9 % Normal 40.0 - 80.[address] [facility] Comment on above: Performed By: #### C BCDF #### [address] [place] [address] Platelets (Bld) [#/Vol] 410 10*3/uL Normal 150 - [address] [facility] Comment on above: Performed By: #### C BCDF #### [address] [place] [address] RBC (Bld) [#/Vol] 4.58 x10E12/L Normal 4.00 - 5.[address] [facility] Comment on above: Performed By: #### C BCDF #### [address] [place] [address] WBC (Bld) [#/Vol] 9.5 10*3/uL Normal 4.4 - 11.3 [facility] Comment on above: Performed By: #### C BCDF #### [address] 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 Reports her asthma is stable. 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 She has Hematology follow-up today following our [...] Aug 06 2020 2:00PM EST (Author) Normal [employer] Complete Blood Count + Diffe marc 06-27-2020 Basophils/100 WBC (Bld) 0.5 % 0.0 - 2.0 AP-FNYCO-Pcprl[address] Work Phone: Eosinophils (Bld) [#/Vol] 0.24 {x10E9/L} See Below PD-GAHZR-Wjmcz[address] Work Phone: Comment on above: Reference Range: 0.0 0 - 0.70 Eosinophils/100 WBC (Bld) 1.1 % 0.0 - 6.0 KI-JICYE-Dowcd[address] Work Phone: Erythrocyte distribution width (RBC) [Ratio] 15.0 % above high threshold See Below IZ-CDMHK-Quunc[address] Work Phone: Comment on above: Reference Range: 11. 5 - 14.5 Hematocrit (Bld) [Volume fraction] 30.0 % below low threshold See Below CF-SQPKT-Fjixu[address] Work Phone: Comment on above: Reference Range: 36. 0 - 46.0 Hemoglobin (Bld) [Mass/Vol] 9.8 g/dL below low threshold See Below DG-HVEPE-Tgyxo[address] Work Phone: Comment on above: Reference Range: 12. 0 - 16.0 Lymphocytes (Bld) [#/Vol] 2.25 {x10E9/L} See Below YR-RUEUS-Vzhar wn 2nd Fl Work Phone: Comment on above: Reference Range: 1.2 0 - 4.80 Lymphocytes/100 WBC (Bld) 10.4 % See Below GG-WINVQ-Djunv wn 2nd Fl Work Phone: Comment on above: Reference Range: 13. 0 - 44.0 MCHC (RBC) [Mass/Vol] 32.7 g/dL See Below XN-HSXSN-Ohkfx wn 2nd Fl Work Phone: Comment on above: Reference Range: 32. 0 - 36.0 MCV (RBC) [Entitic vol] 91 fL 80 - 100 NB-LZIPF-Btrkf wn 2nd Fl Work Phone: Monocytes (Bld) [#/Vol] 0.84 {x10E9/L} See Below TS-EZGXS-Ctyfu wn 2nd Fl Work Phone: Comment on above: Reference Range: 0.1 0 - 1.00 Monocytes/100 WBC (Bld) 3.9 % 2.0 - 10.0 VL-BOBSO-Xejhm wn 2nd Fl Work Phone: Neutrophils/100 WBC (Bld) 82.7 % See Below BN-TAXOF-Aeryn wn 2nd Fl Work Phone: Comment on above: Reference Range: 40. 0 - 80.0 Platelets (Bld) [#/Vol] 225 {x10E9/L} 150 - 450 HO-MXOWS-Aygfm wn 2nd Fl Work Phone: RBC (Bld) [#/Vol] 3.31 {x10E12/L} below low threshold See Below FS-MBHPH-Hahzv [facility] Fl Work Phone: Comment on above: Reference Range: 4.0 0 - 5.20 WBC (Bld) [#/Vol] 0.0 {/100_WBC} 0.0-0.0 MG- OBGYN[address] Work Phone: WBC (Bld) [#/Vol] 21.6 {x10E9/L} above high threshold 4.4 - 11.3 VR-UIGPI-Fielr wn 2nd Fl Work Phone: Complete Blood Count + Differential 0.11 {x10E9/L} above high threshold See Below AH-NZNZX-Jcnot wn 2nd Fl Work Phone: Comment on above: Reference Range: 0.0 0 - 0.10 Complete Blood Count + Differential 1.4 % above high threshold 0.0 - 0.9 PR-FOIMA-Krrvo[address] Work Phone: Comment on above: Immature Granulocyte Count (IG) includes promyelocytes, myelocytes and metamyelocytes but does not include bands. Percent differential counts (%) should be interpreted in the context of the absolute cell counts (cells/L). Complete Blood Count + Differential 17.85 {x10E9/L} above high threshold See Below JW-JHDND-Ykyav[address] Work Phone: Comment on above: Reference Range: 1.2 0 - 7.70 Hematologyon 06-26-2020 Hematocrit (Bld) [Volume fraction] 30.5 % below low threshold See Below GF-NNQLK-Suglu wn 2nd Fl Work Phone: Comment on above: Reference Range: 36. 0 - 46.0 Hemoglobin (Bld) [Mass/Vol] 10.7 g/dL below low threshold See Below TT-IUJXG-Cesas wn 2nd Fl Work Phone: Comment on above: Reference Range: 12. 0 - 16.0 MCV (RBC) [Entitic vol] 84 fL 80 - 100 HQ-MVHPX-Jftuh[address] Work Phone: Platelets (Bld) [#/Vol] 258 {x10E9/L} 150 - 450 RR-ORGYP-Vynig wn 2nd Fl Work Phone: RBC (Bld) [#/Vol] 3.62 {x10E12/L} below low threshold See Below VC-EADTE-Xoufn wn 2nd Fl Work Phone: Comment on above: Reference Range: 4.0 0 - 5.20 WBC (Bld) [#/Vol] 0.0 {/100_WBC} 0.0-0.0 MG- OBGYN-Midto wn 2nd Fl Work Phone: WBC (Bld) [#/Vol] 35.7 {x10E9/L} above high threshold 4.4 - 11.3 YV-YPCTW-Bhnge wn 2nd Fl Work Phone: Otheron 06-26-2020 Erythrocyte distribution width (RBC) [Ratio] 14.6 % above high threshold See Below PU-KOITK-Cresk wn 2nd Fl Work Phone: Comment on above: Reference Range: 11. 5 - 14.5 MCHC (RBC) [Mass/Vol] 35.1 g/dL See Below NY-NQTOI-Ovhaq 2nd Fl Work Phone: Comment on above: [...] 3.5 cm, located 1.0 cm from themargin. Project Analyst sections are submitted in 5 cassettes.AXQ/LMPSummary of Cassettes:Specimen Label SiteA 1 umbilical cord sections 2 membrane rolls 3 placental parenchyma, umbilical cord insertion site 4 placental parenchyma 5 placental parenchyma, lesionaxq/06/26/2020 SS-XVWTW-Pregt[address] Work Phone: Coronavirus 2019 RNA by PCR, Symptomaticon 06-25-2020 Coronavirus 2019 RNA by PCR, Symptomatic NOT DETECTED See Below YN-IJURG-Qsovb wn 2nd [address] Work Phone: Comment on above: SOURCE: Nasal, [...] this test method. Fact sheet for providers: www.fda.gov/media/536499/downloadFact sheet for patients: www.fda.gov/media/624927/downloadThis test has received FDA Emergency Use Authorization (EUA) and has been verified by [facility] ([facility]). This test is only authorized for the [...] complexity testing. Testing is performed in the [facility] laboratories located at [address] [place] [address]. Hematologyon 06-25-2020 ABO group Nom (Bld) A [address] Work Phone: Blood group antibody screen Ql Negative CR-ZIULO-Imscg[address] Work Phone: Hematocrit (Bld) [Volume fraction] 34.7 % below low threshold See Below PN-NFOKK-Hnkit[address] Work Phone: Comment on above: Reference Range: 36. 0 - 46.0 Hemoglobin (Bld) [Mass/Vol] 11.6 g/dL below low threshold See Below PC-UEJBK-Gwrlq[address] Work Phone: Comment on above: Reference Range: 12. 0 - 16.0 MCV (RBC) [Entitic vol] 90 fL 80 - 100 TJ-ZOCCQ-Stltd[address] Work Phone: Platelets (Bld) [#/Vol] 268 {x10E9/L} 150 - 450 HR-FKDPU-Ysbzg[address] Work Phone: RBC (Bld) [#/Vol] 3.85 {x10E12/L} below low threshold See Below CS-IDEZH-Fkdqp[address] Work Phone: Comment on above: Reference Range: 4.0 0 - 5.20 Rh immune globulin screen (Bld) [Interp] Positive LK-MLXUQ-Cvxtl[address] Work Phone: WBC (Bld) [#/Vol] 0.0 {/100_WBC} 0.0-0.0 [facility] [facility] Work Phone: WBC (Bld) [#/Vol] 15.5 {x10E9/L} above high threshold 4.4 - 11.3 GD-WTWAW-Fhwqx[address] Work Phone: Otheron 06-25-2020 Erythrocyte distribution width (RBC) [Ratio] 14.4 % See Below MK-PQBWP-Hnobc[address] Work Phone: Comment on above: Reference Range: 11. 5 - 14.5 MCHC (RBC) [Mass/Vol] 33.4 g/dL See Below ZQ-AIJFP-Aigeo[address] Work Phone: Comment on above: Reference Range: 32. 0 - 36.0 SYPHILIS SCREENING WITH REFL EXon 06-25-2020 T. pallidum IgG+IgM IA Ql (S) NONREACTIVE See Below [address] Work Phone: Comment on above: SOURCE: Reference Ra nge: NONREACTIVENo significant level of Treponema pallidum antibody detected. Repeat testing in 2 to 4 weeks may be considered if early infection or incubating syphilis infection is suspected. Imm/Pathon 06-07-2020 Bacteria identified Aer cx Nom (Genital specimen) PATIENT: KIARA ASHLEY LOCATION: [facility] BILL#: [id number] : 89 AGE: SEX: F ORDERED BY: PARAS GUEVARA: VAGINAL COLLECTED: 06/07/20 09:36ANTIBIOTICS AT [facility].: RECEIVED : 06/08/20 07:27SITE: VAGINAL R E S U L T S GROUP B STREP SCREEN PRELIM 06/09/20 08:35 CULTURE IN PROGRESS. OL-FBOCI-DCO [address] [place] Work Phone: Bacteria identified Aer cx Nom (Genital specimen) PATIENT: KIARA ASHLEY LOCATION: [facility] [place] BILL#: [id number] : 89 AGE: SEX: F ORDERED BY: PARAS GUEVARA: VAGINAL COLLECTED: 06/07/20 09:36ANTIBIOTICS AT [place].: RECEIVED : 06/08/20 07:27SITE: VAGINAL R E S U L T S GROUP B STREP SCREEN FINAL 06/10/20 11:54 NEGATIVE FOR GROUP B BETA STREP. KX-SMEYR-Tjray wn 2nd Fl Work Phone: Otheron 06-07-2020 [...] growth-No malformations were identified on a limited survey[facility] 06/22 The patient is aware of [...] signed by: RILEY TREVIÑO 06/07/20 09:33 Normal SV-SNDLG-VOB [address] [place] Work Phone: Comment on above: ORDER REVISED TO A O B FOLLOW UP OR REPEAT SCAN BY RADIOLOGIST; Original Order Number: [id number] CBC AND DIFFERENTIALon 06-10 -2020 % AUTOMATED IMMATURE GRAN 1.9 % High 0.0 - 0.[address] [facility] [place] Comment on above: Result Comment: Graciela ture Granulocyte Count (IG) includes promyelocytes, myelocytes and metamyelocytes but does not include bands. Percent differential counts (%) should be interpreted in the context of the absolute cell counts (cells/L). Performed By: #### C BCDF #### [address] [place] [address] Basophils (Bld) [#/Vol] 0.08 10*3/uL Normal 0.00 - 0.[address] [facility] [place] Comment on above: Performed By: #### C BCDF #### [address] [place] [address] Basophils/100 WBC (Bld) 0.5 % Normal 0.0 - 2.[address] [facility] Comment on above: Performed By: #### C BCDF #### [address] [place] [address] Eosinophils (Bld) [#/Vol] 0.22 10*3/uL Normal 0.00 - 0.[address] [facility] Comment on above: Performed By: #### C BCDF #### [address] [place] [address] Eosinophils/100 WBC (Bld) 1.5 % Normal 0.0 - 6.[address] [facility] Comment on above: Performed By: #### C BCDF #### [address] [place] [address] Erythrocyte distribution width (RBC) [Ratio] 14.0 % Normal 11.5 - 14.[address] [facility] [place] Comment on above: Performed By: #### C BCDF #### [address] [place] [address] Hematocrit (Bld) [Volume fraction] 35.6 % Low 36.0 - 46.[address] [facility] Comment on above: Performed By: #### C BCDF #### [address] [place] [address] Hemoglobin (Bld) [Mass/Vol] 11.8 g/dL Low 12.0 - 16.[address] [facility] [place] Comment on above: Performed By: #### C BCDF #### [address] [place] [address] Lymphocytes (Bld) [#/Vol] 2.38 10*3/uL Normal 1.20 - 4.[address] [facility] [place] Comment on above: Performed By: #### C BCDF #### [address] [place] [address] Lymphocytes/100 WBC (Bld) 16.0 % Normal 13.0 - 44.[address] [facility] [place] Comment on above: Performed By: #### C BCDF #### [address] [place] [address] MCHC (RBC) [Mass/Vol] 33.1 g/dL Normal 32.0 - 36.[address] [facility] [place] Comment on above: Performed By: #### C BCDF #### [address] [place] [address] MCV (RBC) [Entitic vol] 92 fL Normal 80 - [address] [facility] [place] Comment on above: Performed By: #### C BCDF #### [address] [place] [address] Monocytes (Bld) [#/Vol] 0.74 10*3/uL Normal 0.10 - 1.[address] [facility] [place] Comment on above: Performed By: #### C BCDF #### [address] [place] [address] Monocytes/100 WBC (Bld) 5.0 % Normal 2.0 - 10.[address] [facility] [place] Comment on above: Performed By: #### C BCDF #### [address] [place] [address] Neutrophils (Bld) [#/Vol] 11.17 10*3/uL High 1.20 - 7.[address] [facility] [place] Comment on above: Performed By: #### C BCDF #### [address] [place] [address] Neutrophils/100 WBC (Bld) 75.1 % Normal 40.0 - 80.[address] [facility] Comment on above: Performed By: #### C BCDF #### [address] [place] [address] Platelets (Bld) [#/Vol] 285 10*3/uL Normal 150 - [address] [facility] [place] Comment on above: Performed By: #### C BCDF #### [address] [place] [address] RBC (Bld) [#/Vol] 3.89 x10E12/L Low 4.00 - 5.[address] [facility] Comment on above: Performed By: #### C BCDF #### [address] [place] [address] WBC (Bld) [#/Vol] 14.9 10*3/uL High 4.4 - 11.3 [facility] Comment on above: Performed By: #### C BCDF #### [address] [place] [address] COMPREHENSIVE PANELon 2019 ALP [Catalytic activity/Vol] 79 U/L Normal 33 - [address] [facility] [place] Comment on above: Performed By: #### C MP #### [address] [place] [address] [facility] [address] [place] [address] ALT [Catalytic activity/Vol] 7 U/L Normal 7 - [address] [facility] [place] Comment on above: Result Comment: Melida ents treated with Sulfasalazine may generate falsely decreased results for ALT. Performed By: #### C MP #### [address] [place] [address] [facility] [address] [place] [address] AST [Catalytic activity/Vol] 13 U/L Normal 9 - [address] [facility] [place] Comment on above: Performed By: #### C MP #### [address] [place] [address] [place] [address] Bilirubin [Mass/Vol] 0.3 mg/dL Normal 0.0 - 1.[address] [facility] Comment on above: Performed By: #### C MP #### [address] [place] [address] [place] [address] Protein [Mass/Vol] 5.9 g/dL Low 6.4 - 8.[address] [facility] [place] Comment on above: Performed By: #### C MP #### [address] [place] [address] [place] [address] Anion gap [Moles/Vol] 12 mmol/L Normal 10 - [address] [facility] [place] Comment on above: Performed By: #### C MP #### [address] [place] [address] [place] [address] Chloride [Moles/Vol] 106 mmol/L Normal 98 - [address] [facility] [place] Comment on above: Performed By: #### C MP #### [address] [place] [address] [place] [address] Potassium [Moles/Vol] 3.7 mmol/L Normal 3.5 - 5.[address] [facility] Comment on above: Performed By: #### C MP #### [address] [place] [address] [place] [address] Sodium [Moles/Vol] 137 mmol/L Normal 136 - [address] [facility] [place] Comment on above: Performed By: #### C MP #### [address] [place] [address] [place] [address] Calcium [Mass/Vol] 9.2 mg/dL Normal 8.6 - 10.[address] [facility] [place] Comment on above: Performed By: #### C MP #### [address] [place] [address] [place] [address] Glucose [Mass/Vol] 95 mg/dL Normal 74 - [address] [facility] [place] Comment on above: Performed By: #### C MP #### [address] [place] [address] [address] [place] [address] Urea nitrogen [Mass/Vol] 7 mg/dL Normal 6 - [address] [facility] [place] Comment on above: Performed By: #### C MP #### [address] [place] [address] [address] [place] [address] Albumin [Mass/Vol] 3.4 g/dL Normal 3.4 - 5.[address] [facility] Comment on above: Performed By: #### C MP #### [address] [place] [address] [address] [place] [address] Creatinine [Mass/Vol] 0.70 mg/dL Normal 0.50 - 1.[address] [facility] [place] Comment on above: Performed By: #### C MP #### [address] [place] [address] [address] [place] [address] GFR- AM. >60 Normal >[address] [facility] [place] Comment on above: Result Comment: CALC ULATIONS OF ESTIMATED GFR ARE PERFORMED USING THE MDRD STUDY EQUATION FOR THE IDMS-TRACEABLE CREATININE METHODS. CLIN CHEM 2007;53:766-72 Performed By: #### C MP #### [address] [place] [address] [address] [place] [address] GFR-NON AM. >60 Normal >[address] [facility] Comment on above: Performed By: #### C MP #### [address] [place] [address] [place] [address] HCO3 (Bld) [Moles/Vol] 23 mmol/L Normal 21 - [address] [facility] Comment on above: Performed By: #### C MP #### [address] [place] [address] [place] [address] FERRITINon 04-24-2020 Ferritin [Mass/Vol] 8 ug/L Normal 8 - [address] [facility] Comment on above: Performed By: #### F ERRI #### [address] [place] [address] IRON + TIBCon 04-24-2020 % SATURATION 14 % Low 25 - [address] [facility] Comment on above: Performed By: #### I RONT #### [address] [place] [address] Iron [Mass/Vol] 65 ug/dL Normal 35 - [address] [facility] Comment on above: Performed By: #### I RONT #### [address] [place] [address] TIBC 449 ug/dL High 240 - [address] [facility] Comment on above: Performed By: #### I RONT #### [address] [place] [address] Complete Blood Count + Diffe rentialon 12-25-2019 Basophils/100 WBC (Bld) 1.0 % 0.0 - 2.0 IY-MMCNM-FMV [address] [place] Work Phone: Eosinophils (Bld) [#/Vol] 0.37 {x10E9/L} See Below WA-FOVQN-FJG [address] [place] Work Phone: Comment on above: Reference Range: 0.0 0 - 0.70 Eosinophils/100 WBC (Bld) 3.0 % 0.0 - 6.0 SY-QBBMQ-TBC [address] [place] Work Phone: Erythrocyte distribution width (RBC) [Ratio] 13.4 % See Below NQ-LXBEF-TXL [address] [place] Work Phone: Comment on above: Reference Range: 11. 5 - 14.5 Hematocrit (Bld) [Volume fraction] 41.8 % See Below BL-LAWPM-MFI [address] [place] Work Phone: Comment on above: Reference Range: 36. 0 - 46.0 Hemoglobin (Bld) [Mass/Vol] 13.6 g/dL See Below DF-JCPIK-IZU [address] [place] Work Phone: Comment on above: Reference Range: 12. 0 - 16.0 Lymphocytes (Bld) [#/Vol] 2.52 {x10E9/L} See Below FH-FVEDP-MZC [address] [place] Work Phone: Comment on above: Reference Range: 1.2 0 - 4.80 Lymphocytes/100 WBC (Bld) 20.2 % See Below ZW-SNZLT-FII [address] [place] Work Phone: Comment on above: Reference Range: 13. 0 - 44.0 MCHC (RBC) [Mass/Vol] 32.5 g/dL See Below TZ-KSXMV-SDL [address] [place] Work Phone: Comment on above: Reference Range: 32. 0 - 36.0 MCV (RBC) [Entitic vol] 95 fL 80 - 100 OP-XKDDK-DSX [address] [place] Work Phone: Monocytes (Bld) [#/Vol] 0.58 {x10E9/L} See Below EW-BKZDO-EVC [address] [place] Work Phone: Comment on above: Reference Range: 0.1 0 - 1.00 Monocytes/100 WBC (Bld) 4.6 % 2.0 - 10.0 YB-EXUDX-NWY [address] [place] Work Phone: Neutrophils/100 WBC (Bld) 70.6 % See Below RT-GKJQJ-GMH [address] [place] Work Phone: Comment on above: Reference Range: 40. 0 - 80.0 Platelets (Bld) [#/Vol] 372 {x10E9/L} 150 - 450 UU-TKBCR-ZFW [address] [place] Work Phone: RBC (Bld) [#/Vol] 4.40 {x10E12/L} See Below MG -OBGYN-MAC [address] [place] Work Phone: Comment on above: Reference Range: 4.0 0 - 5.20 WBC (Bld) [#/Vol] 0.0 {/100_WBC} 0.0-0.0 MG- OBGYN-MAC [address] [place] Work Phone: WBC (Bld) [#/Vol] 12.7 {x10E9/L} above high threshold 4.4 - 11.3 QU-BNHGZ-DAK [address] [place] Work Phone: Comment on above: SOURCE: Complete Blood Count + Differential 8.81 {x10E9/L} above high threshold See Below SK-GKBNU-CKR [address] [place] Work Phone: Comment on above: Reference Range: 1.2 0 - 7.70 Complete Blood Count + Differential 0.6 % 0.0 - 0.9 QG-YCBZI-VNK [address] [place] Work Phone: Comment on above: Percent differential counts (%) should be interpreted in the context of the absolute cell counts (cells/L). Complete Blood Count + Differential 0.13 {x10E9/L} above high threshold See Below KT-ORWTH-ECG [address] [place] Work Phone: Comment on above: Reference Range: 0.0 0 - 0.10 Cult, Urineon 12-25-2019 Bacteria identified Cx Nom (U) PATIENT: KIARA ASHLEY LOCATION: [id number] BILL#: [id number] : 89 AGE: SEX: F ORDERED BY: PARAS GUEVARA: URINE COLLECTED: 12/25/19 09:41ANTIBIOTICS AT [place].: RECEIVED : 12/25/19 17:06SITE: Clean Catch/Voided R E S U L T S URINE CULTURE,BACTERIAL FINAL 12/26/19 10:21 NO SIGNIFICANT GROWTH. NT-AROSR-CFL [address] [place] Work Phone: Hematologyon 12-25-2019 ABO group Nom (Bld) A ZZ-EKUSR-RYB [address] [place] Work Phone: Blood group antibody screen Ql Negative DU-DCWFS-JCV [address] [place] Work Phone: Rh immune globulin screen (Bld) [Interp] Positive NN-TUZCI-AWU [address] [place] Work Phone: Hepatitis B Surface Antigeno n 12-25-2019 Hepatitis B Surface Antigen NONREACTIVE See Below DD-GAEHA-ACH [address] [place] Work Phone: Comment on above: [...] Hepatitis C Antibody Test NON-REACTIVE See Below IV-RSAFF-ECY [address] [place] Work Phone: Comment on above: SOURCE: Reference Ra nge: NONREACTIVE Patients receiving more than 5 mg/day of biotin may have interference in test results. A sample should be taken no sooner than eight hours after previous dose. Contact the testing laboratory for additional information. Metabolic Panelon 12-25-2019 ALP [Catalytic activity/Vol] 67 U/L 33 - 110 TG-BHXPN-FUF [address] [place] Work Phone: Anion gap [Moles/Vol] 15 mmol/L 10 - 20 VP-ULVRU-XKE [address] [place] Work Phone: Bilirubin [Mass/Vol] 0.3 mg/dL 0.0 - 1.2 ET-QRAHD-STR [address] [place] Work Phone: Calcium [Mass/Vol] 9.6 mg/dL 8.6 - 10.6 IJ-PGFOZ-GEA [address] [place] Work Phone: Chloride [Moles/Vol] 104 mmol/L 98 - 107 XJ-LQSFZ-GRO [address] [place] Work Phone: CO2 [Moles/Vol] 21 mmol/L 21 - 32 MG-OBGYN- MAC [address] [place] Work Phone: Creatinine [Mass/Vol] 0.69 mg/dL See Below ES-ZAEQM-NXU [address] [place] Work Phone: Comment on above: Reference Range: 0.5 0 - 1.05 Glucose [Mass/Vol] 83 mg/dL 74 - 99 YW-EKXDC-WCS [address] [place] Work Phone: Comment on above: SOURCE: Potassium [Moles/Vol] 4.1 mmol/L 3.5 - 5.3 DK-RTZQD-TTA [address] [place] Work Phone: Protein [Mass/Vol] 6.2 g/dL below low threshold 6.4 - 8.2 WY-CPWSD-XBK [address] [place] Work Phone: Sodium [Moles/Vol] 136 mmol/L 136 - 145 FG-LLMLK-CEF [address] [place] Work Phone: Urea nitrogen [Mass/Vol] 9 mg/dL 6 - 23 ZN-VVRLF-XUP [address] [place] Work Phone: Otheron 12-25-2019 Albumin BCP dye [Mass/Vol] 3.9 g/dL 3.4 - 5.0 ZY-LHPJJ-TQV [address] [place] Work Phone: ALT With P-5'-P [Catalytic activity/Vol] 8 U/L 7 - 45 WR-YOUVX-VYQ [address] [place] Work Phone: Comment on above: Patients treated wit h Sulfasalazine may generate falsely decreased results for ALT. AST With P-5'-P [Catalytic activity/Vol] 11 U/L 9 - 39 DV-UBIIP-ESD [address] [place] Work Phone: NONE LV-PLZRR-LCP [address] [place] Work Phone: >60 >60 OK-SZWGQ-PWH [address] [place] Work Phone: Comment on above: CALCULATIONS OF MARÍA MATED GFR ARE PERFORMED USING THE MDRD STUDY EQUATION FOR THE IDMS-TRACEABLE CREATININE METHODS. CLIN CHEM 2007;53:766-72 SYPHILIS SCREENING WITH REFL EXon 12-25-2019 T. pallidum IgG+IgM IA Ql (S) NONREACTIVE See Below SY-RHGMJ-DQV [address] [place] Work Phone: Comment on above: SOURCE: Reference Ra nge: NONREACTIVENo significant level of Treponema pallidum antibody detected. Repeat testing in 2 to 4 weeks may be considered if early infection or incubating syphilis infection is suspected. CBC AND DIFFERENTIALon 11-21 % AUTOMATED IMMATURE GRAN 0.9 % Normal 0.0 - 0.[address] [facility] Comment on above: Result Comment: Perc ent differential counts (%) should be interpreted in the context of the absolute cell counts (cells/L). Performed By: #### C BCDF #### [address] [place] [address] Basophils (Bld) [#/Vol] 0.16 10*3/uL High 0.00 - 0.[address] [facility] Comment on above: Performed By: #### C BCDF #### [address] [place] [address] Basophils/100 WBC (Bld) 1.2 % Normal 0.0 - 2.[address] [facility] Comment on above: Performed By: #### C BCDF #### [address] [place] [address] Eosinophils (Bld) [#/Vol] 0.80 10*3/uL High 0.00 - 0.[address] [facility] Comment on above: Performed By: #### C BCDF #### [address] [place] [address] Eosinophils/100 WBC (Bld) 5.8 % Normal 0.0 - 6.[address] [facility] Comment on above: Performed By: #### C BCDF #### [address] [place] [address] Erythrocyte distribution width (RBC) [Ratio] 13.6 % Normal 11.5 - 14.[address] [facility] Comment on above: Performed By: #### C BCDF #### [address] [place] [address] Hematocrit (Bld) [Volume fraction] 39.4 % Normal 36.0 - 46.[address] [facility] Comment on above: Performed By: #### C BCDF #### [address] [place] [address] Hemoglobin (Bld) [Mass/Vol] 13.0 g/dL Normal 12.0 - 16.[address] [facility] Comment on above: Performed By: #### C BCDF #### [address] [place] [address] Lymphocytes (Bld) [#/Vol] 2.24 10*3/uL Normal 1.20 - 4.[address] [facility] Comment on above: Performed By: #### C BCDF #### [address] [place] [address] Lymphocytes/100 WBC (Bld) 16.3 % Normal 13.0 - 44.[address] [facility] Comment on above: Performed By: #### C BCDF #### [address] [place] [address] MCHC (RBC) [Mass/Vol] 33.0 g/dL Normal 32.0 - 36.[address] [facility] Comment on above: Performed By: #### C BCDF #### [address] [place] [address] MCV (RBC) [Entitic vol] 94 fL Normal 80 - [address] [facility] Comment on above: Performed By: #### C BCDF #### [address] [place] [address] Monocytes (Bld) [#/Vol] 0.83 10*3/uL Normal 0.10 - 1.[address] [facility] Comment on above: Performed By: #### C BCDF #### [address] [place] [address] Monocytes/100 WBC (Bld) 6.0 % Normal 2.0 - 10.[address] [facility] Comment on above: Performed By: #### C BCDF #### [address] [place] [address] Neutrophils (Bld) [#/Vol] 9.60 10*3/uL High 1.20 - 7.[address] [facility] Comment on above: Performed By: #### C BCDF #### [address] [place] [address] Neutrophils/100 WBC (Bld) 69.8 % Normal 40.0 - 80.[address] [facility] Comment on above: Performed By: #### C BCDF #### [address] [place] [address] Platelets (Bld) [#/Vol] 380 10*3/uL Normal 150 - [address] [facility] Comment on above: Performed By: #### C BCDF #### [address] [place] [address] RBC (Bld) [#/Vol] 4.21 x10E12/L Normal 4.00 - 5.[address] [facility] Comment on above: Performed By: #### C BCDF #### [address] [place] [address] WBC (Bld) [#/Vol] 13.8 10*3/uL High 4.4 - 11.3 [facility] Comment on above: Performed By: #### C BCDF #### [address] [place] [address] Complete Blood Count + Diffe rentialon 12-31-2019 Basophils (Bld) [#/Vol] 0.05 {x10E9/L} See Below MP-Reproductiv e Endocrinology- [place] Work Phone: Comment on above: Reference Range: 0.0 0 - 0.10 Basophils/100 WBC (Bld) 0.4 % 0.0 - 2.0 MP-Reproductiv e Endocrinology- [place] Work Phone: Eosinophils (Bld) [#/Vol] 0.89 {x10E9/L} above high threshold See Below MP-Reproductiv e Endocrin[facility]- [place] Work Phone: Comment on above: Reference Range: 0.0 0 - 0.70 Eosinophils/100 WBC (Bld) 7.3 % 0.0 - 6.0 MP-Reproductiv e Endocrinology- [place] Work Phone: Erythrocyte distribution width (RBC) [Ratio] 13.9 % See Below -Reproductiv e Endocrinology- [place] Work Phone: Comment on above: Reference Range: 11. 5 - 14.5 Hematocrit (Bld) [Volume fraction] 39.4 % See Below -Reproductiv e Endocrinology- [place] Work Phone: Comment on above: Reference Range: 36. 0 - 46.0 Hemoglobin (Bld) [Mass/Vol] 12.8 g/dL See Below -Reproductiv e Endocrinology- [place] Work Phone: Comment on above: Reference Range: 12. 0 - 16.0 Lymphocytes (Bld) [#/Vol] 2.13 {x10E9/L} See Below -Reproductiv e Endocrinology- [place] Work Phone: Comment on above: Reference Range: 1.2 0 - 4.80 Lymphocytes/100 WBC (Bld) 17.5 % See Below MP-Reproductiv e Endocrinology- [place] Work Phone: Comment on above: Reference Range: 13. 0 - 44.0 MCHC (RBC) [Mass/Vol] 32.5 g/dL See Below MP-Reproductiv e Endocrinology- [place] Work Phone: Comment on above: Reference Range: 32. 0 - 36.0 MCV (RBC) [Entitic vol] 95 fL 80 - 100 MP-Reproductiv e Endocrinology- [place] Work Phone: Monocytes (Bld) [#/Vol] 0.60 {x10E9/L} [...] threshold 4.4 - 11.3 MP-Reproductiv e Endocrinology- [place] Work Phone: WBC (Bld) [#/Vol] 0.0 {/100_WBC} 0.0-0.0 MP- Reproductiv e Endocrinology- [place] Work Phone: Complete Blood Count + Differential 0.5 % 0.0 - 0.9 MP-Reproductiv e Endocrinology- [place] Work Phone: Comment on above: Percent differential counts (%) should be interpreted in the context of the absolute cell counts (cells/L). Complete Blood Count + Differential 8.42 {x10E9/L} above high threshold See Below MP-Reproductiv e Endocrinology- [place] Work Phone: Comment on above: Reference Range: 1.2 0 - 7.70 Metabolic Panelon 11-14-2019 ALP [Catalytic activity/Vol] 82 U/L 33 - 110 MP-Reproductiv e Endocrinology- [place] Work Phone: Anion gap [Moles/Vol] 19 mmol/L 10 - 20 MP-Reproductiv e Endocrinology- [place] Work Phone: Bilirubin [Mass/Vol] 0.4 mg/dL 0.0 - 1.2 MP-Reproductiv e Endocrinology- [place] Work Phone: Calcium [Mass/Vol] 9.5 mg/dL 8.6 - 10.6 MP-Reproductiv e Endocrinology- [place] Work Phone: Chloride [Moles/Vol] 100 mmol/L 98 [...] mmol/L 3.5 - 5.3 MP-Reproductiv e Endocrinology- [place] Work Phone: Protein [Mass/Vol] 5.8 g/dL below low threshold 6.4 - 8.2 MP-Reproductiv e Endocrinology- [place] Work Phone: Sodium [Moles/Vol] 135 mmol/L below low threshold 136 - 145 MP-Reproductiv e Endocrinology- [place] Work Phone: Urea nitrogen [Mass/Vol] 10 mg/dL 6 - 23 MP-Reproductiv e [facility] Work Phone: Otheron 11-14-2019 Albumin BCP dye [Mass/Vol] 3.5 g/dL 3.4 - 5.0 MP-Reproductiv [facility] Work Phone: ALT With P-5'-P [Catalytic activity/Vol] 17 U/L 7 - 45 MP-Reproductiv [facility] Work Phone: Comment on above: Patients treated wit h Sulfasalazine may generate falsely decreased results for ALT. AST With P-5'-P [Catalytic activity/Vol] 22 U/L 9 - 39 MP-Reproductiv [facility] Work Phone: >60 >60 -[facility]roducMid [facility] Work Phone: Comment on above: CALCULATIONS OF MARÍA MATED GFR ARE PERFORMED USING THE MDRD STUDY EQUATION FOR THE IDMS-TRACEABLE CREATININE METHODS. CLIN CHEM 2007;53:766-72 CBCon 11-09-2019 Erythrocyte distribution width (RBC) [Ratio] 13.7 % See Below GB-CVUUT-Yedmr n 310 [facility] Work Phone: Comment on above: Performed By: #### L H #### [facility] [address] [place] [address] Reference Range: 11. 5 - 14.5 Hematocrit (Bld) [Volume fraction] 41.9 % See Below OW-YSIRQ-Odvic n 310 [facility] Work Phone: Comment on above: Performed By: #### L H #### [facility] [address] [place] [address] Reference Range: 36. 0 - 46.0 Hemoglobin (Bld) [Mass/Vol] 14.0 g/dL See Below [id number]-Dkqwh n 310 [facility] Work Phone: Comment on above: Performed By: #### L H #### [facility] [address], [place] [id number] Reference Range: 12. 0 - 16.0 MCHC (RBC) [Mass/Vol] 33.4 g/dL See Below PV-GBVAK-Zxvhg n 310 IVF Work Phone: Comment on above: Performed By: #### L H #### [facility] [address] [place] [address] Reference Range: 32. 0 - 36.0 MCV (RBC) [Entitic vol] 94 fL 80 - 100 PH-BZVVB-Nqnap n 310 IVF Work Phone: Comment on above: Performed By: #### L H #### [facility] [address] [place] [id number] Platelets (Bld) [#/Vol] 411 10*3/uL Normal 150 - 450 [facility] [place] Comment on above: Performed By: #### L H #### [facility] [address] [place] [address] RBC (Bld) [#/Vol] 4.44 x10E12/L Normal 4.00 - 5.20 [facility] [place] Comment on above: Performed By: #### L H #### [facility] [address] [place] [id number] WBC (Bld) [#/Vol] 12.4 10*3/uL High 4.4 - 11.3 [facility] Comment on above: Performed By: #### L H #### [facility] [address] [place] [id number] COMPREHENSIVE PANELon 2018 Albumin [Mass/Vol] 3.8 g/dL Normal 3.4 - 5.0 [facility] [place] Comment on above: Performed By: #### L H #### [facility] [address] [place] [id number] ALP [Catalytic activity/Vol] 51 U/L 33 - 110 QQ-MVIJE-Xlihi n 310 IVF Work Phone: Comment on above: Performed By: #### L H #### [facility] [address] [place] [address] ALT [Catalytic activity/Vol] 12 U/L Normal 7 - 45 [facility] [place] Comment on above: Result Comment: Melida ents treated with Sulfasalazine may generate falsely decreased results for ALT. Performed By: #### L H #### [facility] [address] [place] [address] Anion gap [Moles/Vol] 13 mmol/L 10 - 20 FA-YNTAR-Yahwo n 310 IVF Work Phone: Comment on above: Performed By: #### L H #### [facility] [address] [place] [address] AST [Catalytic activity/Vol] 12 U/L Normal 9 - 39 [facility] [place] Comment on above: Performed By: #### L H #### [facility] [address] [place] [address] Bilirubin [Mass/Vol] 0.4 mg/dL 0.0 - 1.2 YF-EUSEX-Vlhez n 310 IVF Work Phone: Comment on above: Performed By: #### L H #### [facility] [address] [place] [address] Calcium [Mass/Vol] 9.3 mg/dL 8.6 - 10.3 EC-QRMIZ-Yqaqq n 310 IVF Work Phone: Comment on above: Performed By: #### L H #### [facility] [address] [place] [address] Chloride [Moles/Vol] 102 mmol/L 98 - 107 JE-EYEHO-Utymm n 310 IVF Work Phone: Comment on above: Performed By: #### L H #### [facility] [address] [place] [address] Creatinine [Mass/Vol] 0.89 mg/dL See Below JE-VISEM-Oeclz n 310 IVF Work Phone: Comment on above: Performed By: #### L H #### [facility] [address] [place] [id number] Reference Range: 0.5 0 - 1.05 GFR- AM. >60 Normal >60 [facility] [place] Comment on above: Result Comment: CALC ULATIONS OF ESTIMATED GFR ARE PERFORMED USING THE MDRD STUDY EQUATION FOR THE IDMS-TRACEABLE CREATININE METHODS. CLIN CHEM 2007;53:766-72 Performed By: #### L H #### [facility] [address] [place] [id number] GFR-NON AM. >60 Normal >60 [facility] [place] Comment on above: Performed By: #### L H #### [facility] [address] [place] [id number] Glucose [Mass/Vol] 74 mg/dL 74 - 99 WH-CICDG-Hiers n 310 IVF Work Phone: Comment on above: Performed By: #### L H #### [facility] [address] [place] [id number] HCO3 (Bld) [Moles/Vol] 25 mmol/L Normal 21 - 32 [facility] [place] Comment on above: Performed By: #### L H #### [facility] [address] [place] [id number] Potassium [Moles/Vol] 4.1 mmol/L 3.5 - 5.3 SE-UYLXM-Hblct n 310 IVF Work Phone: Comment on above: Performed By: #### L H #### [facility] [address] [place] [id number] Protein [Mass/Vol] 6.0 g/dL below low threshold 6.4 - 8.2 QL-OJBBB-Wonsc n 310 IVF Work Phone: Comment on above: Performed By: #### L H #### [facility] [address] [place] [id number] Sodium [Moles/Vol] 136 mmol/L 136 - 145 PI-NRKOI-Unenm n 310 IVF Work Phone: Comment on above: Performed By: #### L H #### [facility] [address] [place] [address] Urea nitrogen [Mass/Vol] 11 mg/dL 6 - 23 DO-HJTLY-Kabxh n 310 IVF Work Phone: Comment on above: Performed By: #### L H #### [facility] [address] [place] [address] HCG, Beta Quantitativeon HCG.beta subunit Qn 7102 {mIU/mL} Abnormal WW-KGQRC-Gjskz n 310 IVF Work Phone: Comment on [...] using a different test methodology at [facility] other [facility] Direct result comparison should only be made within the same method. REF VALUESNON FEMALE <5MALES <5 HCG,BETA-QUANTITATIVEon 12- HCG,BETA-QUANTITA TIVE 7102 mIU/mL [facility] [place] Comment on above: Result Comment: Low- [...] HCG measurement is performed using the [employer] Access Immunoassay which detects intact HCG and free beta HCG subunit. This test is not indicated for use as a tumor marker. HCG testing is performed using a different test methodology at [facility] than other [facility]. Direct result comparison should only be made within the same method. REF VALUES NON FEMALE <5 MALES <5 Performed By: #### L H #### [facility] [address] [place] [address] Hematologyon 11-09-2019 Platelets (Bld) [#/Vol] 411 {x10E9/L} 150 - 450 BS-YMQFM-Budjb n 310 IVF Work Phone: RBC (Bld) [#/Vol] 4.44 {x10E12/L} See Below MG -OBGYN-Risma n 310 IVF Work Phone: Comment on above: Reference Range: 4.0 0 - 5.20 WBC (Bld) [#/Vol] 12.4 {x10E9/L} above high threshold 4.4 - 11.3 MI-WEBKU-Cmsyc n 310 IVF Work Phone: Metabolic Panelon 11-09-2019 CO2 [Moles/Vol] 25 mmol/L 21 - 32 MG-OBGYN- Risma n 310 IVF Work Phone: Otheron 11-09-2019 Albumin BCP dye [Mass/Vol] 3.8 g/dL 3.4 - 5.0 GF-LJXFE-Dpiwn n 310 IVF Work Phone: ALT With P-5'-P [Catalytic activity/Vol] 12 U/L 7 - 45 YU-AQCUV-Qydkc n 310 IVF Work Phone: Comment on above: Patients treated wit h Sulfasalazine may generate falsely decreased results for ALT. AST With P-5'-P [Catalytic activity/Vol] 12 U/L 9 - 39 KO-TJPZU-Bubzr n 310 IVF Work Phone: >60 >60 HJ-VFSAK-Qarhk n 310 IVF Work Phone: Comment on [...] HCG measurement is performed using the [employer] Access Immunoassay which detects intact HCG and free beta HCG subunit. This test is not indicated for use as a tumor marker. HCG testing is performed using a different test methodology at [facility] other [facility]. Direct result comparison should only be made within the same method. REF VALUESNON FEMALE <5MALES <5 HCG,BETA-QUANTITATIVEon 10-15 HCG,BETA-QUANTITA TIVE 240 mIU/mL [facility] [place] Comment on above: Result Comment: Low- [...] using a different test methodology at [facility] than other [facility]. Direct result comparison should only be made within the same method. REF VALUES NON FEMALE <5 MALES <5 Performed By: #### E STRA #### [facility] [address] [place] [address] ESTRADIOLon 10-14-2019 ESTRADIOL 1871 pg/mL Normal [facility] [place] Comment on above: Result Comment: Estr adiol measurement is performed using the [employer] Access Immunoassay. Estradiol testing is performed using a different test methodology at [facility] than other [facility]. Direct result comparison should only be made within the same method. REF VALUES FOLLICULAR PHASE 20-144 MID CYCLE 64-357 LUTEAL PHASE 56-214 POSTMENOPAUSE < 32 PREPUBERTY < 20 MALE 10-18Y < 20 ADULT MALE < 40 Performed By: #### E STRA #### [facility] [address] [place] [address] Estradiol, Serumon 9 E2 [Mass/Vol] 1871 pg/mL MG-OBGYN-Ri sma n 310 IVF Work Phone: Comment on above: Estradiol measuremen t is performed using the [employer] Access Immunoassay. Estradiol testing is performed using a different test methodology at [facility] than other [facility]. Direct result comparison should only be made within the same method.REF VALUESFOLLICULAR PHASE 20-144MID CYCLE 64-357LUTEAL PHASE 56-214POSTMENOPAUSE < 32PREPUBERTY < 20MALE 10-18Y < 20ADULT MALE < 40 PROGESTERONEon 10-14-2019 PROGESTERONE 1.0 ng/mL Normal [facility] [place] Comment on above: Result Comment: Prog esterone is performed using the [employer] Access Immunoassay. Progesterone testing is performed using a different test methodology at [facility] than other [facility]. Direct result comparison should only be made within the same method. REF VALUES MALE <0.2-0.8 FOLLICULAR PHASE <0.2-1.5 LUTEAL PHASE 7.4-15.4 POSTMENOPAUSAL <0.2-0.2 1ST TRIMESTER 12.0-84.0 2ND TRIMESTER 10.2-58.8 3RD TRIMESTER 46.5-160 Performed By: #### E BARBARA #### [facility] [address] [place] [address] Progesterone, Serumon 2018 Progesterone [Mass/Vol] 1.0 ng/mL KO-TWJSX-Fqrib n 310 IVF Work Phone: Comment on above: Progesterone is perf ormed using the [employer] Access Immunoassay. Progesterone testing is performed using a different test methodology at [facility] than other [facility]. Direct result comparison should only be made within the same method.REF VALUESMALE <0.2-0.8 FOLLICULAR PHASE <0.2-1.5 LUTEAL PHASE 7.4-15.4 POSTMENOPAUSAL <0.2-0.2 1ST TRIMESTER 12.0-84.0 2ND TRIMESTER 10.2-58.8 3RD TRIMESTER 46.5-160 ESTRADIOLon 10-11-2019 ESTRADIOL 284 pg/mL Normal [facility] [place] Comment on above: Result Comment: Estr adiol measurement is performed using the [employer] Access Immunoassay. Estradiol testing is performed using a different test methodology at [facility] than other [facility]. Direct result comparison should only be made within the same method. REF VALUES FOLLICULAR PHASE 20-144 MID CYCLE 64-357 LUTEAL PHASE 56-214 POSTMENOPAUSE < 32 PREPUBERTY < 20 MALE 10-18Y < 20 ADULT MALE < 40 Performed By: #### E STRA #### [facility] [address] [place] [address] Estradiol, Serumon 9 E2 [Mass/Vol] 284 pg/mL MG-OBGYN-Ri sma n 310 IVF Work Phone: Comment on above: Estradiol measuremen t is performed using the [employer] Access Immunoassay. Estradiol testing is performed using a different test methodology at [facility] than other [facility]. Direct result comparison should only be made within the same method.REF VALUESFOLLICULAR PHASE 20-144MID CYCLE 64-357LUTEAL PHASE 56-214POSTMENOPAUSE < 32PREPUBERTY < 20MALE 10-18Y < 20ADULT MALE < 40 ESTRADIOLon 2019 ESTRADIOL 129 pg/mL Normal [facility] [place] Comment on above: Result Comment: Estr adiol measurement is performed using the [employer] Access Immunoassay. Estradiol testing is performed using a different test methodology at [facility] than other [facility]. Direct result comparison should only be made within the same method. REF VALUES FOLLICULAR PHASE 20-144 MID CYCLE 64-357 LUTEAL PHASE 56-214 POSTMENOPAUSE < 32 PREPUBERTY < 20 MALE 10-18Y < 20 ADULT MALE < 40 Performed By: #### E STRA #### [facility] [address] [place] [address] Estradiol, Serumon 9 E2 [Mass/Vol] 129 pg/mL MG-OBGYN-Ri sma n 310 IVF Work Phone: Comment on above: Estradiol measuremen t is performed using the [employer] Access Immunoassay. Estradiol testing is performed using a different test methodology at [facility] than other [facility]. Direct result comparison should only be made within the same method.REF VALUESFOLLICULAR PHASE 20-144MID CYCLE 64-357LUTEAL PHASE 56-214POSTMENOPAUSE < 32PREPUBERTY < 20MALE 10-18Y < 20ADULT MALE < 40 PROGESTERONEon 10-05-2019 PROGESTERONE 0.2 ng/mL Normal [facility] [place] Comment on above: Result Comment: Prog esterone is performed using the [employer] Access Immunoassay. Progesterone testing is performed using a different test methodology at [facility] other [facility]. Direct result comparison should only be made within the same method. REF VALUES MALE <0.2-0.8 FOLLICULAR PHASE <0.2-1.5 LUTEAL PHASE 7.4-15.4 POSTMENOPAUSAL <0.2-0.2 1ST TRIMESTER 12.0-84.0 2ND TRIMESTER 10.2-58.8 3RD TRIMESTER 46.5-160 Performed By: #### E STRA #### [facility] [address] [place] [address] Progesterone, Serumon 2018 Progesterone [Mass/Vol] 0.2 ng/mL MC-IXURD-Enchd n 310 IVF Work Phone: Comment on above: Progesterone is perf ormed using the [employer] Access Immunoassay. Progesterone testing is performed using a different test methodology at [facility] than other [facility]. Direct result comparison should only be made within the same method.REF VALUESMALE <0.2-0.8 FOLLICULAR PHASE <0.2-1.5 LUTEAL PHASE 7.4-15.4 POSTMENOPAUSAL <0.2-0.2 1ST TRIMESTER 12.0-84.0 2ND TRIMESTER 10.2-58.8 3RD TRIMESTER 46.5-160 ESTRADIOLon 10-02-2019 ESTRADIOL 357 pg/mL Normal [facility] [place] Comment on above: Result Comment: Estr adiol measurement is performed using the [employer] Access Immunoassay. Estradiol testing is performed using a different test methodology at [facility] than other [facility] Direct result comparison should only be made within the same method. REF VALUES FOLLICULAR PHASE 20-144 MID CYCLE 64-357 LUTEAL PHASE 56-214 POSTMENOPAUSE < 32 PREPUBERTY < 20 MALE 10-18Y < 20 ADULT MALE < 40 Performed By: #### E STRA #### [facility] [address] [place] [address] Estradiol, Serumon 9 E2 [Mass/Vol] 357 pg/mL MG-OBGYN-Cr ock er 206A IVF Work Phone: Comment on above: Estradiol measuremen t is performed using the [employer] Access Immunoassay. Estradiol testing is performed using a different test methodology at [facility] than other [facility]. Direct result comparison should only be made within the same method.REF VALUESFOLLICULAR PHASE 20-144MID CYCLE 64-357LUTEAL PHASE 56-214POSTMENOPAUSE < 32PREPUBERTY < 20MALE 10-18Y < 20ADULT MALE < 40 LUTEINIZING HORMONEon 2018 LUTEINIZING HORMONE 14.7 IU/L Normal [facility] [place] Comment on above: Result Comment: Lute inizing Hormone [LH] is performed using the [employer] Access Immunoassay. LH testing is performed using a different test methodology at [facility] than [facility]. Direct result comparison should only be made within the same method. REF VALUES FOLLICULAR PHASE 1.5-10.0 MID-CYCLE 13.0-72.0 LUTEAL PHASE 0.5-13.0 MENOPAUSE 15.0-65.0 PREPUBERTY 0- 3.0 CHILDREN 0- 6.0 ADULT MALE 1.0- 9.0 Performed By: #### E STRA #### [facility] [address] [place] [address] Luteinizing Hormone, Serumon 10-02-2019 Lutropin Qn 14.7 {IU/L} TZ-EXYZF-Hnv ck er 206A IVF Work Phone: Comment on above: Luteinizing Hormone [LH] is performed using the [employer] Access Immunoassay. LH testing is performed using a different test methodology at [facility] than [facility]. Direct result comparison should only be made within the same method.REF VALUESFOLLICULAR PHASE 1.5-10.0MID-CYCLE 13.0-72.0LUTEAL PHASE 0.5-13.0MENOPAUSE 15.0-65.0PREPUBERTY 0- 3.0CHILDREN 0- 6.0ADULT MALE 1.0- 9.0 PROGESTERONEon 10-02-2019 PROGESTERONE 0.1 ng/mL Normal [facility] [place] Comment on above: Result Comment: Prog esterone is performed using the [employer] Access Immunoassay. Progesterone testing is performed using a different test methodology at [facility] than other [facility]. Direct result comparison should only be made within the same method. REF VALUES MALE <0.2-0.8 FOLLICULAR PHASE <0.2-1.5 LUTEAL PHASE 7.4-15.4 POSTMENOPAUSAL <0.2-0.2 1ST TRIMESTER 12.0-84.0 2ND TRIMESTER 10.2-58.8 3RD TRIMESTER 46.5-160 Performed By: #### E STRA #### [facility] [address] [place] [address] Progesterone, Serumon 2018 Progesterone [Mass/Vol] 0.1 ng/mL RI-RAKWU-Vmqfe er 206A IVF Work Phone: Comment on above: Progesterone is perf ormed using the [employer] Access Immunoassay. Progesterone testing is performed using a different test methodology at [facility] than other [facility]. Direct result comparison should only be made within the same method.REF VALUESMALE <0.2-0.8 FOLLICULAR PHASE <0.2-1.5 LUTEAL PHASE 7.4-15.4 POSTMENOPAUSAL <0.2-0.2 1ST TRIMESTER 12.0-84.0 2ND TRIMESTER 10.2-58.8 3RD TRIMESTER 46.5-160 HCG,BETA-QUANTITATIVEon 07-17 HCG,BETA-QUANTITA TIVE 10 mIU/mL [facility] [place] Comment on above: Result Comment: Low- [...] HCG measurement is performed using the [employer] Access Immunoassay which detects intact HCG and free beta HCG subunit. This test is not indicated for use as a tumor marker. HCG testing is performed using a different test methodology at [facility] than other [facility]. Direct result comparison should only be made within the same method. REF VALUES NON FEMALE <5 MALES <5 Performed By: #### L H #### [facility] [address] [place] [address] LUTEINIZING HORMONEon 2018 LUTEINIZING HORMONE 57.0 IU/L Normal [facility] [place] Comment on above: Result Comment: Lute inizing Hormone [LH] is performed using the [employer] Access Immunoassay. LH testing is performed using a different test methodology at [facility] than other [facility]. Direct result comparison should only be made within the same method. REF VALUES FOLLICULAR PHASE 1.5-10.0 MID-CYCLE 13.0-72.0 LUTEAL PHASE 0.5-13.0 MENOPAUSE 15.0-65.0 PREPUBERTY 0- 3.0 CHILDREN 0- 6.0 ADULT MALE 1.0- 9.0 Performed By: #### E STRA #### [facility] [address] [place] [address] PROGESTERONEon 08-13-2019 PROGESTERONE 6.7 ng/mL Normal [facility] [place] Comment on above: Result Comment: Prog esterone is performed using the [employer] Access Immunoassay. Progesterone testing is performed using a different test methodology at [facility] than other [facility]. Direct result comparison should only be made within the same method. REF VALUES MALE <0.2-0.8 FOLLICULAR PHASE <0.2-1.5 LUTEAL PHASE 7.4-15.4 POSTMENOPAUSAL <0.2-0.2 1ST TRIMESTER 12.0-84.0 2ND TRIMESTER 10.2-58.8 3RD TRIMESTER 46.5-160 Performed By: #### L H #### [facility] [address] [place] [address] ESTRADIOLon 08-12-2019 ESTRADIOL 1380 pg/mL Normal [facility] [place] Comment on above: Result Comment: Estr adiol measurement is performed using the [employer] Access Immunoassay. Estradiol testing is performed using a different test methodology at [facility] than other [facility]. Direct result comparison should only be made within the same method. REF VALUES FOLLICULAR PHASE 20-144 MID CYCLE 64-357 LUTEAL PHASE 56-214 POSTMENOPAUSE < 32 PREPUBERTY < 20 MALE 10-18Y < 20 ADULT MALE < 40 Performed By: #### L H #### [facility] [address] [place] [address] PROGESTERONEon 08-12-2019 PROGESTERONE 1.7 ng/mL Normal [facility] [place] Comment on above: Result Comment: Prog esterone is performed using the [employer] Access Immunoassay. Progesterone testing is performed using a different test methodology at [facility] other [facility]. Direct result comparison should only be made within the same method. REF VALUES MALE <0.2-0.8 FOLLICULAR PHASE <0.2-1.5 LUTEAL PHASE 7.4-15.4 POSTMENOPAUSAL <0.2-0.2 1ST TRIMESTER 12.0-84.0 2ND TRIMESTER 10.2-58.8 3RD TRIMESTER 46.5-160 Performed By: #### L H #### [facility] [address] [place] [address] ESTRADIOLon 08-11-2019 ESTRADIOL 874 pg/mL Normal [facility] [place] Comment on above: Result Comment: Estr adiol measurement is performed using the [employer] Access Immunoassay. Estradiol testing is performed using a different test methodology at [facility] than other [facility]. Direct result comparison should only be made within the same method. REF VALUES FOLLICULAR PHASE 20-144 MID CYCLE 64-357 LUTEAL PHASE 56-214 POSTMENOPAUSE < 32 PREPUBERTY < 20 MALE 10-18Y < 20 ADULT MALE < 40 Performed By: #### L H #### [facility] [address] [place] [address] PROGESTERONEon 08-11-2019 PROGESTERONE 1.2 ng/mL Normal [facility] [place] Comment on above: Result Comment: Prog esterone is performed using the [employer] Access Immunoassay. Progesterone testing is performed using a different test methodology at [facility] than other [facility]. Direct result comparison should only be made within the same method. REF VALUES MALE <0.2-0.8 FOLLICULAR PHASE <0.2-1.5 LUTEAL PHASE 7.4-15.4 POSTMENOPAUSAL <0.2-0.2 1ST TRIMESTER 12.0-84.0 2ND TRIMESTER 10.2-58.8 3RD TRIMESTER 46.5-160 Performed By: #### L H #### [facility] [address] [place] [address] ESTRADIOLon 08-09-2019 ESTRADIOL 385 pg/mL Normal [facility] [place] Comment on above: Result Comment: Estr adiol measurement is performed using the [employer] Access Immunoassay. Estradiol testing is performed using a different test methodology at [facility] than other [facility]. Direct result comparison should only be made within the same method. REF VALUES FOLLICULAR PHASE 20-144 MID CYCLE 64-357 LUTEAL PHASE 56-214 POSTMENOPAUSE < 32 PREPUBERTY < 20 MALE 10-18Y < 20 ADULT MALE < 40 Performed By: #### L H #### [facility] [address] [place] [address] ESTRADIOLon 08-07-2019 ESTRADIOL 80 pg/mL Normal [facility] [place] Comment on above: Result Comment: Estr adiol measurement is performed using the [employer] Access Immunoassay. Estradiol testing is performed using a different test methodology at [facility] than other [facility]. Direct result comparison should only be made within the same method. REF VALUES FOLLICULAR PHASE 20-144 MID CYCLE 64-357 LUTEAL PHASE 56-214 POSTMENOPAUSE < 32 PREPUBERTY < 20 MALE 10-18Y < 20 ADULT MALE < 40 Performed By: #### L H #### [facility] [address] [place] [address] ESTRADIOLon 08-04-2019 ESTRADIOL 58 pg/mL Normal [facility] [place] Comment on above: Result Comment: Estr adiol measurement is performed using the [employer] Access Immunoassay. Estradiol testing is performed using a different test methodology at [facility] than [facility]. Direct result comparison should only be made within the same method. REF VALUES FOLLICULAR PHASE 20-144 MID CYCLE 64-357 LUTEAL PHASE 56-214 POSTMENOPAUSE < 32 PREPUBERTY < 20 MALE 10-18Y < 20 ADULT MALE < 40 Performed By: #### L H #### [facility] [address] [place] [address] ESTRADIOLon 07-07-2019 ESTRADIOL 110 pg/mL Normal [facility] [place] Comment on above: Result Comment: Estr adiol measurement is performed using the Jose Christmas Access Immunoassay. Estradiol testing is performed using a different test methodology at [facility] than other [facility]. Direct result comparison should only be made within the same method. REF VALUES FOLLICULAR PHASE 20-144 MID CYCLE 64-357 LUTEAL PHASE 56-214 POSTMENOPAUSE < 32 PREPUBERTY < 20 MALE 10-18Y < 20 ADULT MALE < 40 Performed By: #### L H #### [facility] [address] [place] [address] NR MRI SELLA WO/Won 05-31-20 19 NR MRI SELLA WO/W Patient Name: KIARA ASHLEY STUDY: NR MRI SELLA WO/W; 05/31/2019 2:00 pm INDICATION: History of 7 mm microadenoma 2008. COMPARISON: None. ACCESSION NUMBER(S): [id number] ORDERING CLINICIAN: SHAHLA HEALY TECHNIQUE: High resolution [...] Electronically signed by: IRENE BLAKE PHYSICIAN Normal [facility] [place] ESTRADIOLon 05-05-2019 ESTRADIOL 217 pg/mL Normal [facility] [place] Comment on above: Result Comment: Estr adiol measurement is performed using the Jose Matchbin Access Immunoassay. Estradiol testing is performed using a different test methodology at [facility] than other [facility] Direct result comparison should only be made within the same method. REF VALUES FOLLICULAR PHASE 20-144 MID CYCLE 64-357 LUTEAL PHASE 56-214 POSTMENOPAUSE < 32 PREPUBERTY < 20 MALE 10-18Y < 20 ADULT MALE < 40 Performed By: #### E STRA #### [facility] [address] [place] [address] LUTEINIZING HORMONEon 2018 LUTEINIZING HORMONE 4.4 IU/L Normal [facility] [place] Comment on above: Result Comment: Lute inizing Hormone [LH] is performed using the Jose Ryan Access Immunoassay. LH testing is performed using a different test methodology at [facility] than other [facility]. Direct result comparison should only be made within the same method. REF VALUES FOLLICULAR PHASE 1.5-10.0 MID-CYCLE 13.0-72.0 LUTEAL PHASE 0.5-13.0 MENOPAUSE 15.0-65.0 PREPUBERTY 0- 3.0 CHILDREN 0- 6.0 ADULT MALE 1.0- 9.0 Performed By: #### L H #### [facility] [address] [place] [address] ESTRADIOLon 04-11-2019 ESTRADIOL 118 pg/mL Normal [facility] [place] Comment on above: Result Comment: Estr adiol measurement is performed using the Jose Christmas Access Immunoassay. Estradiol testing is performed using a different test methodology at [facility] than other [facility]. Direct result comparison should only be made within the same method. REF VALUES FOLLICULAR PHASE 20-144 MID CYCLE 64-357 LUTEAL PHASE 56-214 POSTMENOPAUSE < 32 PREPUBERTY < 20 MALE 10-18Y < 20 ADULT MALE < 40 Performed By: #### E STRA #### [facility] [address] [place] [address] LUTEINIZING HORMONEon 2018 LUTEINIZING HORMONE 7.7 IU/L Normal [facility] [place] Comment on above: Result Comment: Lute inizing Hormone [LH] is performed using the Jose Christmas Access Immunoassay. LH testing is performed using a different test methodology at [facility] than other [facility]. Direct result comparison should only be made within the same method. REF VALUES FOLLICULAR PHASE 1.5-10.0 MID-CYCLE 13.0-72.0 LUTEAL PHASE 0.5-13.0 MENOPAUSE 15.0-65.0 PREPUBERTY 0- 3.0 CHILDREN 0- 6.0 ADULT MALE 1.0- 9.0 Performed By: #### L H #### [facility] [address] [place] [address] PROGESTERONEon 04-11-2019 PROGESTERONE 0.1 ng/mL Normal [facility] [place] Comment on above: Result Comment: Prog esterone is performed using the Jose Matchbin Access Immunoassay. Progesterone testing is performed using a different test methodology at [facility] than other [facility]. Direct result comparison should only be made within the same method. REF VALUES MALE <0.2-0.8 FOLLICULAR PHASE <0.2-1.5 LUTEAL PHASE 7.4-15.4 POSTMENOPAUSAL <0.2-0.2 1ST TRIMESTER 12.0-84.0 2ND TRIMESTER 10.2-58.8 3RD TRIMESTER 46.5-160 Performed By: #### P SVEN #### [facility] [address] [place] [address] ESTRADIOLon 03-17-2019 ESTRADIOL 120 pg/mL Normal [facility] [place] Comment on above: Result Comment: Estr adiol measurement is performed using the Jose Matchbin Access Immunoassay. Estradiol testing is performed using a different test methodology at [facility] than other [facility]. Direct result comparison should only be made within the same method. REF VALUES FOLLICULAR PHASE 20-144 MID CYCLE 64-357 LUTEAL PHASE 56-214 POSTMENOPAUSE < 32 PREPUBERTY < 20 MALE 10-18Y < 20 ADULT MALE < 40 Performed By: #### E STRA #### [facility] [address] [place] [address] LUTEINIZING HORMONEon 2018 LUTEINIZING HORMONE 6.8 IU/L Normal [facility] [place] Comment on above: Result Comment: Lute inizing Hormone [LH] is performed using the Jose Matchbin Access Immunoassay. LH testing is performed using a different test methodology at [facility] than other [facility]. Direct result comparison should only be made within the same method. REF VALUES FOLLICULAR PHASE 1.5-10.0 MID-CYCLE 13.0-72.0 LUTEAL PHASE 0.5-13.0 MENOPAUSE 15.0-65.0 PREPUBERTY 0- 3.0 CHILDREN 0- 6.0 ADULT MALE 1.0- 9.0 Performed By: #### L H #### [facility] [address] [place] [address] ESTRADIOLon 02-20-2019 ESTRADIOL 521 pg/mL Normal [facility] [place] Comment on above: Result Comment: Estr adiol measurement is performed using the Jose Matchbin Access Immunoassay. Estradiol testing is performed using a different test methodology at [facility] than other [facility]. Direct result comparison should only be made within the same method. REF VALUES FOLLICULAR PHASE 20-144 MID CYCLE 64-357 LUTEAL PHASE 56-214 POSTMENOPAUSE < 32 PREPUBERTY < 20 MALE 10-18Y < 20 ADULT MALE < 40 Performed By: #### E STRA #### [facility] [address] [place] [address] LUTEINIZING HORMONEon 2018 LUTEINIZING HORMONE 3.5 IU/L Normal [facility] [place] Comment on above: Result Comment: Lute inizing Hormone [LH] is performed using the Jose Ryan Access Immunoassay. LH testing is performed using a different test methodology at [facility] than other [facility]. Direct result comparison should only be made within the same method. REF VALUES FOLLICULAR PHASE 1.5-10.0 MID-CYCLE 13.0-72.0 LUTEAL PHASE 0.5-13.0 MENOPAUSE 15.0-65.0 PREPUBERTY 0- 3.0 CHILDREN 0- 6.0 ADULT MALE 1.0- 9.0 Performed By: #### L H #### [facility] [address] [place] [address] Vital Signs Date Time Vital Sign Value Performing Clinician Modesto golden 12-27-2023 10:57-0500 Body mass index (BMI) [Ratio] 34.84 kg/m2 Bere JOHNSON Work Phone: [facility] 12-27-2023 10:57-0500 Body weight 83.64 kg eBre JOHNSON Work Phone: [facility] 12-27-2023 10:57-0500 Diastolic blood pressure 68 mm[Hg] Bere JOHNSON Work Phone: [facility] 12-27-2023 10:57-0500 Systolic blood pressure 110 mm[Hg] Bere JOHNSON Work Phone: [facility] 02-27-2023 11:35-0400 Body mass index (BMI) [Ratio] 29.26 kg/m2 Evelyn Perez Work Phone: [facility] 02-27-2023 11:35-0400 Body temperature 98.8 [degF] Evelyn Grubererhorn Work Phone: [facility] 02-27-2023 11:35-0400 Body weight 72.58 kg Evelyn UngerAna Work Phone: [facility] 02-27-2023 11:35-0400 Diastolic blood pressure 66 mm[Hg] Evelyn Grubererhorn Work Phone: [facility] 02-27-2023 11:35-0400 Heart rate 88 /min Evelyn Grubererhorn Work Phone: [facility] 02-27-2023 11:35-0400 Respiratory rate 14 /min Evelyn Grubererhorn Work Phone: [facility] 02-27-2023 11:35-0400 SaO2% (BldA) [Mass fraction] 100 % Evelyn Calderonrn Work Phone: [facility] 02-27-2023 11:35-0400 Systolic blood pressure 103 mm[Hg] Evelyn Grubererhorn Work Phone: [facility] 06-19-2021 14:03-0400 Body height 157.48 cm Evelyn Grubererhorn Work Phone: CS-SEXYO-Lyrxqr 310 IVF Work Phone: 06-19-2021 14:03-0400 Body mass index (BMI) [Ratio] 29.26 kg/m2 Evelyn Husain Ana Work Phone: FW-SGLOQ-Tzkypx 310 IVF Work Phone: 06-19-2021 14:03-0400 Body surface area Derived from formula 1.74 m2 Evelyn Husain Ana Work Phone: GA-FLNJB-Ezwxop 310 IVF Work Phone: 06-19-2021 14:03-0400 Body weight 72.58 kg Evelyn M Ana Work Phone: KU-EVCHJ-Inynpw 310 IVF Work Phone: 06-19-2021 14:03-0400 1 1 Evelyn M Ana Work Phone: WD-SLVEQ-Wqqqzs 310 IVF Work Phone: Comment on above: GRAV PARA 06-19-2021 14:03-0400 0 1 Evelyn M Ana Work Phone: BX-VRGMZ-Yskkzm 310 IVF Work Phone: Comment on above: [employer] 06-07-2020 10:41-0400 BMI (Body Mass Index) 34.93 kg/m2 King Lappen YW-NMEFO-CXU [address] [place] Work Phone: 06-07-2020 10:41-0400 Body weight 86.64 kg King Lappen FF-DUQHP-RAK 120 0 [place] Work Phone: 06-07-2020 10:41-0400 BP Diastolic 76 mm[Hg] King Lappen OY-GXKQX-CDN 120 0 [place] Work Phone: 06-07-2020 10:41-0400 BP Systolic 111 mm[Hg] King Lappen ER-JGNSD-QHC 120 0 [place] Work Phone: 06-07-2020 10:41-0400 BSA (Body Surface Area) 1.87 m2 King Lappen AI-IMLEK-EAN [address] [place] Work Phone: 06-07-2020 10:41-0400 Pulse (Heart Rate) 101 /min King Lappen QV-LPZXA-DRY [address] [place] Work Phone: 06-07-2020 10:41-0400 0 1 King Lappen ZE-MQJMC-FHE 120 0 [place] Work Phone: Comment on above: Pain Scale 12-25-2019 10:58-0500 BMI (Body Mass Index) 30.18 kg/m2 King Lappen WZ-TSINR-ZBC [address] [place] Work Phone: 12-25-2019 10:58-0500 Body weight 74.84 kg King Lappen RB-IYNSC-JCW 120 0 [place] Work Phone: 12-25-2019 10:58-0500 BP Diastolic 68 mm[Hg] King Lappen YI-AOYJW-ACU 120 0 [place] Work Phone: 12-25-2019 10:58-0500 BP Systolic 112 mm[Hg] King Lappen YK-QDFXT-LKN 120 0 [place] Work Phone: 12-25-2019 10:58-0500 BSA (Body Surface Area) 1.76 m2 King Lappen OG-BTWXF-YSV 1200 [place] Work Phone: 11-09-2019 11:28-0500 Body Temperature 98.78 [degF] Kelechi Gage TT-UNPBR-Mvziuq 310 IVF Work Phone: 11-09-2019 11:28-0500 BP Diastolic 76 mm[Hg] Kelechi Gage WZ-WZKRU-Fzzefy 310 IVF Work Phone: 11-09-2019 11:28-0500 BP Systolic 112 mm[Hg] Kelechi Gage DZ-SRNPW-Ncdpkb 310 IVF Work Phone: 11-09-2019 11:28-0500 Respiratory Rate 96 /min Kelechi Gage FF-MHSKW-Dpoueb 310 IVF Work Phone: Encounters Encounter Date Encounter Type Care Provider Facility Start: 02-22-2024 End: 02-22-2024 ambulatory BERE STEEL Not Available Start: 02-07-2024 End: 02-07-2024 ambulatory DEMARIO RIBEIRO Not Available Start: 01-24-2024 End: 01-24-2024 ambulatory BERE STEEL Not Available Start: 01-10-2024 End: 01-11-2024 ambulatory Zoya Buitrago MANAGER [employer] Facility:Pulmonology & [facility] Start: 12-27-2023 End: 12-27-2023 ambulatory BERE STEEL Not Available Start: 12-27-2023 End: 12-27-2023 flow sheet Bere JOHNSON Work Phone: [facility] Comment on above: Third trimester preg teddy; First trimester ; Hypothyroidism, unspecified type (CMS/HCC); Hypothyroidism (acquired) (CMS/[facility]); H/O blood clots; Excessive growth affecting management of in third trimester, single or unspecified fetus Start: 11-30-2023 End: 11-30-2023 ambulatory DEMARIO RIBEIRO Not Available Start: 11-03-2023 End: 11-03-2023 ambulatory DEMARIO RIBEIRO Not Available Start: 10-05-2023 End: 10-05-2023 ambulatory BERE STEEL Not Available Start: 09-14-2023 End: 09-14-2023 ambulatory Lc Waite Facility:[facility] Start: 02-27-2023 End: 02-27-2023 Emergency department patient visit EVELYN Husain ANA [facility] Start: 02-27-2023 End: 02-27-2023 [facility] Comment on above: Sprain of left ankle , unspecified ligament, initial encounter (Primary Dx) Start: 01-11-2023 End: 01-11-[address] DEMARIO RIBEIRO . Facility:[facility] Start: 09-22-2022 End: 09-22-2022 Emergency department patient visit JAMI ROMERO [facility] Start: 03-10-[address] EVELYN [...] Facility:[facility] Start: 02-03-2022 End: 02-03-[address] JESES THOMAS Facility:[facility] Start: 02-02-2022 End: 02-02-[address] EVELYN PEREZ Facility:[facility] Start: 01-27-[address] EVELYN PEREZ Facility:[facility] Start: 12-27-2021 End: 12-27-2021 ambulatory Sabina Barnhart Other [employer] Other Start: 12-27-2021 Office outpatient visit 5 minutes Sabina Barnhart [facility] Start: 07-16-2021 Patient encounter procedure Evelyn Perez Work Phone: CE-KPZZT-Fycmux 310 IVF Work Phone: Start: 07-07-2021 AUDIT Evelyn santana Work Phone: IF-JPLPE-Wzvijh 310 IVF Work Phone: Start: 07-07-2021 Chart Update Evelyn santana Work Phone: BY-FIMSS-Ownhnr 310 IVF Work Phone: Start: 07-02-2021 Telephone encounter Evelyn gonzales Work Phone: LL-HKHBL-Fayukr 310 IVF Work Phone: Start: 06-19-2021 Patient encounter procedure Evelyn Perez Work Phone: OE-JOHDE-Qsyjbp 310 IVF Work Phone: Start: 06-07-2020 Patient encounter procedure King Kempkathrine MY-WGAVL-BTI [address] [place] Work Phone: Start: 04-24-2020 Patient encounter procedure King Lappen NB-SOXOL-EHI 1200 [place] Work Phone: Start: 02-20-2020 Patient encounter procedure King Lappen DB-XTJDZ-RUI 1200 [place] Work Phone: Start: 02-14-2020 Patient encounter procedure King Lappen ZI-KHTCQ-JHG 1200 [place] Work Phone: Start: 01-23-2020 Patient encounter procedure King Lappen MQ-VTNXM-QBN 1200 [place] Work Phone: Start: 12-25-2019 Patient encounter procedure King Lappen JT-VJUPK-CYH 1200 [place] Work Phone: Start: 11-21-2019 Patient encounter procedure King Lappen KY-BVZNG-VCR 1200 [place] Work Phone: Start: 11-16-2019 Patient encounter procedure Kelechi Gaeg MP-Reproductive Endocrinology-[place] 206 Work Phone: Start: 11-14-2019 Patient encounter procedure Kelechi Gage QQ-DNKMQ-Dbizim 310 IVF Work Phone: Start: 11-09-2019 Patient encounter procedure Kelechi Gage ZH-MXHZH-Lrclyl 310 IVF Work Phone: Start: 11-02-2019 Patient encounter procedure Kelechi Gage MP-Reproductive Endocrinology-[place] Work Phone: Start: 10-21-2019 Patient encounter procedure Kelechi Gage MP-Reproductive Endocrinology-[place] Work Phone: Start: 10-14-2019 Patient encounter procedure Kelechi Gage SD-PDOFG-Kuuaol 310 IVF Work Phone: Start: 10-11-2019 Patient encounter procedure Kelechi Gage XW-WRMVL-Nfvdod 310 IVF Work Phone: Start: 10-05-2019 Patient encounter procedure Kelechi Gage HC-YQMKC-Afcqmp 320 Work Phone: Start: 10-02-2019 Patient encounter procedure Kelechi Gage DV-RMKOB-Hsfxnpo 206A IVF Work Phone: Start: 08-14-2019 Patient encounter procedure Kelechi Gage XC-YOVTQ-Uxkbcs 310 IVF Work Phone: Start: 08-13-2019 Patient encounter procedure Kelechi TONGEO-TIJIN-Cipzqu 310 IVF Work Phone: Start: 08-12-2019 Patient encounter procedure Kelechi TONGCL-LRXBV-Brrgfr 310 IVF Work Phone: Start: 08-11-2019 Patient encounter procedure Kelechi TONGOB-EJNOX-Ntowej 310 IVF Work Phone: Start: 08-09-2019 Patient encounter procedure Kelechi Gage CN-WZKJD-Zvirvj 310 IVF Work Phone: Start: 08-07-2019 Patient encounter procedure Kelechi Gage IY-VYYZB-Iscsqh 310 IVF Work Phone: Start: 08-04-2019 Patient encounter procedure Kelechi TONGVO-YYLWS-Flturi 310 IVF Work Phone: Start: 07-07-2019 Patient encounter procedure Kelechi TONGSH-LPJVZ-Exdtwi 310 IVF Work Phone: Start: 06-08-2019 Patient encounter procedure Kelechi TONGPW-RLIKC-Ddszkw 310 IVF Work Phone: Start: 05-17-2019 Patient encounter procedure Kelechi TONGOH-GGBPW-Yxkoie 310 IVF Work Phone: Start: 05-08-2019 Patient encounter procedure Kelechi TONGCE-TOLLG-Lpizty 310 IVF Work Phone: Start: 05-05-2019 Patient encounter procedure Kelechi TONGOW-AXGKJ-Ykhzyo 310 IVF Work Phone: Start: 04-13-2019 Patient encounter procedure Kelechi Gage UF-AYBSP-Gkdvuq 310 IVF Work Phone: Start: 04-11-2019 Patient encounter procedure Kelechi Gage HI-MPMPU-Qfaaxd 310 IVF Work Phone: Start: 03-20-2019 Patient encounter procedure Kelechi Gage BD-DZTEY-Uiqvhm 310 IVF Work Phone: Start: 03-17-2019 Patient encounter procedure Kelechi Gage GU-EXFRR-Qyvlak 310 IVF Work Phone: Start: 02-22-2019 Patient encounter procedure Kelechi Gage TM-VIHMD-Kbzsto 310 IVF Work Phone: Start: 02-20-2019 Patient encounter procedure Kelechi Gage HB-MTJGS-Eltyhn 310 IVF Work Phone: Start: 02-13-2019 Patient encounter procedure Bruce Mayes Facility:[facility] Start: 02-08-2019 End: 02-12-2019 Patient encounter procedure Bruce Mayes Facility:[facility] Start: 01-19-2019 Patient encounter procedure Kelechi Gage ZZ-MELRO-Weerxz 310 IVF Work Phone: Patient encounter status Evelyn Perez Work Phone: IJ-RCAMN-Wsykyc 310 IVF Work Phone: Procedures Date Procedure [...] King Lappen Start: 12-25-2019 Hemoglobin Identification King Guevara Start: 12-25-2019 Hepatitis c antibody Ju khadra Guevara Start: 12-25-2019 Iaad ia hepatitis b surface [...] Start: 09-20-2019 Gonadotropin luteini zing hormone Kelechi Ggae Start: 09-20-2019 IO Ultrasound, limit ed pelvic, follicle monitoring Kelechi Gage Start: 08-21-2019 IO Ultrasound, limit ed pelvic, follicle monitoring Kelechi Gage Extraction of wisdom tooth Eve Gage Plan of Treatment Date Care Activity Detail Author Start: 02-07-2024 End: 02-07-2024 Patient encounter procedure 02/07/2024 9:40 AM EDT Routine [facility] [address] [place] [id number] Demario Ribeiro, [address] [place] [address] [facility] Start: 02-07-2024 End: 02-07-2024 Professional / ancillary services management 02/07/2024 9:00 AM EDT Ancillary Procedure [facility] [address] [place] [phone] [facility] Start: 01-24-2024 End: 01-24-2024 Patient encounter procedure 01/24/2024 9:30 AM EDT Routine [facility] [address] [place] [phone] Bere Steel PA [address] [place], [place] [id number] [facility] Start: 01-10-2024 End: 01-10-2024 Patient encounter procedure 01/10/2024 2:20 PM EST Routine [facility] [address] [place] [phone] Demario Ribeiro DO [address] [place] [address] [facility] Start: 01-10-2024 End: 01-10-2024 Professional / ancillary services management 01/10/2024 2:00 PM EST Ancillary Procedure [facility] [address] [place], [place] [phone] [facility] Start: 12-27-2023 End: 12-27-2024 US biophysical profile w non stress test US biophysical profile w non stress test Imaging Routine Hypothyroidism (acquired) (CMS/HCC) H/O blood clots Expected: 12/27/2023 (Approximate), Expires: 12/27/2024 [facility] Work Phone: Comment on above: Expected: 12/27/2023 (Approximate), Expires: 12/27/2024 Start: 12-27-2023 End: 12-27-2024 US for US OB SCAN FOR GROWTH Imaging Routine Hypothyroidism, unspecified type (CMS/HCC) Excessive growth affecting management of in third trimester, single or unspecified fetus Expected: 12/27/2023 (Approximate), Expires: 12/27/2024 [facility] Comment on above: Expected: 12/27/2023 (Approximate), Expires: 12/27/2024 Start: 06-15-2023 Influenza vaccination Flu vacc ine (Season Ended) [facility] Start: 2021 Screening for malignant neoplasm of cervix [facility] Start: 07-25-2021 ULTRASOUND, Provider : OBGYN IVF RDMS ARDEN 1,[facility], Status: Pen, Time: 9:00 AM ULTRASOUND, Provider: OBGYN IVF RDMS ARDEN 1,[facility], Status: Pen, Time: 9:00 AM RM-AJJTS-Kejzlv 310 IVF Work Phone: Start: 07-16-2021 ULTRASOUND, Provider : OBGYN IVF RDMS [id number] 1,[facility], Status: Pen, Time: 1:00 PM ULTRASOUND, Provider: OBGYN IVF RDMS [id number] 1,[facility], Status: Pen, Time: 1:00 PM DZ-NMQMM-Imbrun 310 IVF Work Phone: Start: 07-07-2021 ULTRASALIN, Provider : Miguel A Barrera, Status: Pen, Time: 10:00 AM ULTRASALIN, Provider: Miguel A Barrera, Status: Pen, Time: 10:00 AM MO-NYAFG-Bkgjzr 310 IVF Work Phone: Start: 06-05-2020 MAC Imaging Order MG-INTELLIGENCE MANAGER-MAC 1200 [place] Work Phone: Start: 11-16-2019 IO Ultrasound, -Reproductive Endocrinology-[facility] chastity 206 Work Phone: Start: 11-14-2019 Blood count complete auto&auto difrntl wbc Complete Blood Count + Differential ND-ZHYQZ-Uxcxnu 310 IVF Work Phone: Start: 11-14-2019 Comprehensive metabolic 2000 panel IC-HGPJB-Uxclbo 310 IVF Work Phone: Start: 11-02-2019 Gonadotropin chorion ic quantitative HCG, Beta Quantitative MP-Reproductive Endocrinology-[place] chast[place] 206 Work Phone: Start: 10-11-2019 IO Ultrasound, limited pelvic, follicle monitoring KQ-ENDFC-Gyogkc 310 IVF Work Phone: Start: 10-05-2019 IO Ultrasound, limited pelvic, follicle monitoring XM-BOYDV-Iyadkx 320 Work Phone: Start: 2012 Screening for malignant neoplasm of cervix Pap smear [facility] Start: 2010 DTaP/Tdap/Td vaccine (1 - Tdap) DTaP/Tdap/Td vaccine (1 - Tdap) [facility] Start: 2009 Hepatitis C screening Hepatitis C sc reen [facility] Start: 2006 HIV screening HIV screen [facility] Start: 2003 Depression Screen Depression Screen [facility] Start: 1992 Varicella vaccine (1 of 2 - 2-dose childhood series) Varicella vaccine (1 of 2 - 2-dose childhood series) [facility] Start: 03-02-1992 COVID-19 Vaccine (#1) COVID-19 Vacci ne (#1) [facility] Assay of estradiol Estradiol, Serum MG-INTELLIGENCE MANAGER-[place] 310 IVF Work Phone: Comment on above: Approx [id number] Approx [id number] Approx [id number] Assay of progesterone Progesterone, Serum MK-HAETK-Xqggsn 310 IVF Work Phone: Comment on above: Approx [id number] Gonadotropin luteinizing hormone Luteinizing Hormone, Serum AA-JRIZJ-Setowl 310 IVF Work Phone: Comment on above: Approx [id number] ZM-QBRVX-Sivotc 320 Work Phone: IO Ultrasound, l imited pelvic, follicle monitoring UZ-YOBYP-Fvaquo 310 IVF Work Phone: Comment on above: Approx [id number] Approx [id number] Approx [id number] NEGATED: Highlighted row has been ruled out! Planned Goals not documented CQ-CXNBC-Dqicdt 310 IVF Work Phone: Payers Date Payer Category Payer Self-pay 2016 Private Health Insurance [id number] 2016 Private Health Insurance [id number] 1991 Unknown [id number] 2.16.84 0.1.631325.3.579.2.593 1991 Unknown [id number] 2.16.84 0.1.579435.3.579.2.593 1991 Unknown [id number] 2.16.84 0.1.819329.3.579.2.593 1991 Unknown [id number] 2.16.84 0.1.815579.3.579.2.593 1991 Unknown [id number] 2.16.84 0.1.079270.3.579.2.593 1991 Unknown [id number] 2.16.84 0.1.034723.3.579.2.593 1991 Unknown [id number] 2.16.84 0.1.734047.3.579.2.593 1991 Unknown [id number] 2.16.84 0.1.355604.3.579.2.593 1991 Unknown [id number] 2.16.84 0.1.990521.3.579.2.593 1991 Unknown [id number] 2.16.84 0.1.989164.3.579.2.593 1991 Unknown [id number] 2.16.84 0.1.965332.3.579.2.593 1991 Unknown [id number] 2.16.84 0.1.783825.3.579.2.593 1991 Unknown [id number] 2.16.84 0.1.118168.3.579.2.593 1991 Unknown [id number] 2.16.84 0.1.401812.3.579.2.593 1991 Unknown [id number] 2.16.8 40.1.748297.3.579.2.173 1991 Unknown [id number] 2.16.8 40.1.132901.3.579.2.173 1991 Unknown [id number] 2.16. 840.1.415638.3.579.2.196 1991 Unknown [id number] 2.16. 840.1.809096.3.579.2.196 1991 Unknown [id number] 2.16.84 0.1.051999.3.579.2.1259 1991 Unknown [id number] 2.16.84 0.1.265478.3.579.2.1259 1991 Unknown [id number] 2.16.84 0.1.500286.3.579.2.1259 1991 Unknown [id number] 2.16.84 0.1.519608.3.579.2.1259 1991 Unknown [id number] 2.16.84 0.1.966838.3.579.2.1259 1991 Unknown [id number] 2.16.84 0.1.839167.3.579.2.1259 1991 Unknown [id number] 2.16.840 .1.571646.3.579.2.1259 1991 Unknown [id number] 2.16.840 .1.691390.3.579.2.1259 1959 Self-pay [id number] 1959 Unknown [id number] 1958 Unknown [id number] Unknown [id number] 2.16.8 [id number] Unknown [id number] 2.16.8 [id number] Unknown Unknown [id number] 2.16.8 [id number] Social History Date Type Detail Facility - - [id number] IVF Work Phone: Start: 05-11-2023 End: 12-27-2023 Never a smoker Never a smoker [facility] Comment on above: [facility] ED; Start: 05-11-2023 End: 09-06-2023 Sex Assigned At [facility] Start: 09-22-2022 End: 04-15-2023 Tobacco smoking status NHIS Never smoked tobacco [employer] Work Phone: Start: 09-22-2022 End: 04-15-2023 Tobacco use and exposure Smokeless tobacco non-user [employer] Phone: Start: 1990 Sex Assigned At Not on file B ON [employer] Phone: Start: 02-17-2023 End: 02-27-2023 Exposure to SARS-CoV-2 (event) Not sure [employer] Start: 12-27-2023 Alcohol intake Current drinke r [...] status health issues are not documented Disease [id number] IVF Work Phone: Mental Status Date Assessment Result Facility NEGATED: Highlighted row Cognitive function [Interpretation] Cognitive status health issues are not documented Disease [id number] IVF Work Phone: History of Present [...] Problems Past Medical History: Diagnosis Date Asthma ([facility]) Infection of obstetric surgical wound Protein S deficiency ([facility]) Vaginal delivery Family History Problem Relation Name [...] care instructions given in writting by [facility] Care At Home document. [employer] Other Clinical Note 07-25-2021 Note Date & [...] care. Reviewed plan with Dr. Bruce Aburto, CARROTER 07/25/2021 09:22 note: ob scan LOLLY: 03/05/2022. [...] in 7-10 days. Plan reviewed by Dr. eHaly. Petra Lombardi CARROTER 07/16/21 1409 TC to pt with quant = 3238 form yesterday; normal rise from 728 on 07/02; Pt doing well; no problems with Lovenox. PT transferred to [facility] to schedule OB US for next week at [facility]. Bere Way RN 07/07/2021 11:47 Spoke with patient regarding XQYP=442. Pain=0. Patient states she will begin prometrium BID and Lovenox today. Patient will repeat BHCg on Wednesday when she is at work. Patient aware RN will call her WednesdayJuly 07 with results and plan. Lucy Dunlap R.N.07/03/2021 12:19 Spoke to patient, will start Prometrium 100 mg BID and Lovenox 40 mg BID today (+Protein S deficiency). [place] to f/u with patient tomorrow once HCG level is back. Patient verbalized understanding. Rosibel Sam RN 07/02/2021 13:54 note: Reviewed positive test. LMP 15, conceived on christy cycle/IC. Plan to get HCG drawn today. Start Prometrium 100mg BID. Start Lovenox 40mg BID SQ. Plan per Dr. Healy. RN to communicate. Petra Lombardi CARROTER 07/02/21 1304 Active Problems 16 weeks gestation [...] directed. Peak F (more content not included)... [employer] Chief complaint Narrative - Reported 06-19-2021 Note Date & Type Note Facility 06-19-2021 Chief complaint Narrative - Reported An interactive audio and video telecommunication system which permits real time communications between the patient (at the originating site) and provider (at the distant site) was utilized to provide this telehealth service.Verbal consent was requested and obtained from KIARAEleni ASHLEY on this date, 06/19/2021 03:00 PM [...] 30 year-old who presents for a FET [id number] Hx:06/2020: IOL @ 38 weeks due to [...] contour on HSG - images reviewed from [facility] 08/2018Uterine Cavity Evaluation:Normal uterine cavity on [...] on therapeutic dosing when Genetic Screening Hx: [employer] foresight screen negativePartner History:Franklin Ashley 04/09/1989A in past year:2.8 cc125 mil/mL69% kegpwyamDMJ=028 million(recent IUI sample)Morph from original SA was 2.8% [id number] IVF Work Phone: Evaluation note Note Date & Type Note Facility Evaluation note Diagnosis Sprain of left ankle, unspecified ligament, initial encounter- Primary documented in this encounter [employer] Work Phone: Evaluation note Note Date & Type Note Facility Evaluation note Diagnosis Third trimester state, incidental First trimester state, incidental Hypothyroidism, unspecified type (CMS/HCC) Hypothyroidism (acquired) (CMS/HCC) Unspecified hypothyroidism H/O blood clots Excessive growth affecting management of in third trimester, single or unspecified fetus documented in this encounter [facility] Discharge instructions Attachments Note Date & Type Note Facility Hospital Discharge instructions The following attachments cannot be sent through Care Everywhere.Ankle Sprain (Kiswahili)Ankle Sprain: Rehab Exercises (Kiswahili)documented in this encounter [employer] Work Phone: Summary Purpose Family History No [...] section and content) DATE CREATED AUTHOR 02/15/2019 [facility] DATE CREATED AUTHOR AUTHOR'S ORGANIZ ATION 11/12/2019 [facility] [place] DATE CREATED AUTHOR AUTHOR'S ORGANIZ ATION 08/09/[address] [facility] DATE CREATED AUTHOR AUTHOR'S ORGANIZ ATION 07/26/2021 [employer] DATE CREATED AUTHOR AUTHOR'S ORGANIZ ATION 01/21/2023 [facility] DATE CREATED AUTHOR AUTHOR'S ORGANIZ ATION 03/06/2023 [facility] DATE CREATED AUTHOR AUTHOR'S ORGANIZ ATION 07/12/2023 [facility] DATE CREATED AUTHOR AUTHOR'S ORGANIZ ATION 10/04/2023 [facility] DATE CREATED AUTHOR AUTHOR'S ORGANIZ ATION 01/15/2024 [facility] DATE CREATED AUTHOR AUTHOR'S ORGANIZ ATION 02/23/2024 [facility] EPIC REASON FOR VISIT (unrecogniz ed section and content) Reason Comments Ankle Pain Rolled ankle during morning run. Swelling to lateral ankle. 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 Reason Comments Routine Visit Care Teams (unrecognized sec tion and content) Web Assistant Relationship Specialty Start Date End Date Evelyn Perez [address] [place] [id number] PCP - General Pediatrics 09/22/22 Web Assistant Relationship Specialty Start Date End Date Jesse Regan MD [address] [place], [place] [id number] PCP - General Family Medicine 11/30/23 FOR [...] BE BASED ON THE PRIMARY CLINICAL RECORDS. [employer] provides no warranty or guarantee of the accuracy or completeness of information in this document.
[2024-02-25 10:06] VITALS: BP 114/75; PULSE 81
== END 2024-02-25 10:32 | disposition home or self-care (01) ==
LOC: FBCO 08:41 → FBC 10:02
PROVIDERS: Visit Provider Obstetrics & Gynecology
DX: O99.283 Endocrine, nutritional and metabolic diseases complicating pregnancy, third trimester (principal)
CPT/HCPCS: 59025

== ENCOUNTER 2024-02-29 07:30 | Outpatient (OUT) | payer OTHER, SELFPAY ==
--- OUTSIDE RECORDS SUMMARY | 2024-02-29 07:33 | XMS_ITS | CCD ---
Author Organization [facility] Care Team Providers Care Laborer Driver Name Role Phone Bruce Mayes Attending Unavailable [...] HER Unavailable Unavaila ble OBGYN IVF RDMS [id number] 1, MG OBGYN Unavailable Unavailable Lapkathrine King [...] Jesse Regan MD Primary Care Provider Iftikhar DIAZHEATING AND VENTILATION ENGINEER, Zoya Cheung Attending Evelyn Robertson MD Primary [...] sources) Progesterone; Translations: [Progesterone OIL] Drug Allergy [id number] n 310 IVF Work Phone: (16 sources) Progesterone; Translations: [Progesterone OIL] Drug Allergy 2 [facility] (2 sources) sesame seed extract Drug Allergy [facility] Repository (2 sources) Progesterone Drug Allergy 2 [facility] (1 source) No Known Medication Allergies; Translations: [No Known Medication Allergies] Propensity to adverse reactions to drug (disorder) [facility] Repository Medications Current Medications Medication Drug [...] Active Start: 09-22-2022 take 1 tablet by [facility] four times daily metoclopramide (REGLAN) 10 [...] Kelechi Gage MD Start : 14-Aug-2019 Active [id number] 200 actuat albuterol 0.09 mg/actuat metered dose [...] DO Start : 19-Jan-2019 Active BD Disp [place] 27G X 1/2 (19 sources) Start: 10-03-2019 BD Disp Needle s 27G X 1/2 USE DIRECTED. Quantity: 2 Refills: 2 Shahla Healy MD Start : 03-Oct-2019 Active chorionic gonadotropin 98195 unt/ml injectable solution (19 sources) Gonadotropin Start: 10-03-2019 Chorionic Gonadotropin 02194 UNIT Intramuscular Solution Reconstituted USE DIRECTED. Quantity: [...] 75 UNIT Daily Quantity: 1 Refills: 4 Shalha Healy MD Start : 03-Oct-2019 Active 0.42 [...] Start : 25-Dec-2019 Active Peak Flow Meter Burt Rang Device (3 sources) Start: 01-23-2020 Peak Flow Mete r Burt Rang Device USE DIRECTED. Quantity: 1 Refills: [...] refills. Continue with anticoagulation as prescribed by DIGITAL SALES MANAGER, patient is currently 30 weeks [...] embolism Historical No qualifying data Procedure/Surgical History [place] Teeth Removal (2005) IVF (11/15/2018) Medications Dulera [...] Link Zoya PERKINS 01/10/24 12:40 EST Normal [facility] Phone Note - Heme Onc-medica tion questionon 07-12-2023 Phone Note - Heme Onc-medication question Phone Call Information: Patient Demographics: Name: KIARA ASHLEY Date: 1990 Address: [address] [place] [address] Date and Time: 12-Jul-2023 09:31 Caller Information: call from Call From: patient Caller Name: Kiara Primary Phone Number: [phone] Reason for Call: Reason for Callmedication question Message: Message: Patient found out yesterday that she is so she will need to double her Lovenox Asking for new RX Caller Informed Of: Per Dr. Mayes: she needs lovenox 40 mg SC BID for first trimester Team Communication: Clinician note: contacted patient Disposition: Rx sent by [employer] Team Communications: Spoke with the patient. States she is positive for . Provided update from Dr. Mayes above. Pt asked for script to be sent to [facility]. Script sent. Pt had no further questions [...] 09:57 by Harmony Ross (N MGR) Normal [facility] XR ANKLE LEFT (MIN 3 VIEWS)o n [...] Dario William MD 02/27/23 Final result Normal [facility] 1. No acute osseous abnormality involving the left ankle. [facility] EXAMINATION: THREE XRAY VIEWS OF THE LEFT ANKLE 02/27/2023 11:46 am COMPARISON: None. HISTORY: ORDERING SYSTEM PROVIDED HISTORY: pain, swelling TECHNOLOGIST PROVIDED HISTORY: pain, swelling FINDINGS: The bone mineralization is within normal limits. The ankle mortise is stable. No acute fractures or dislocations are seen. There is no soft tissue swelling. [facility] Dario William MD - 02/27/2023 EXAMINATION: [...] acute osseous abnormality involving the left ankle. [employer] Phone: Radiology Study observation (narrative) [employer] Phone: XR ANKLE LEFT (MIN 3 VIEWS)O rdered By: Dario Stewart on 02-27-2023 [employer] Phone: PAP ACOG PANEL 2: 30 to 65on 01-19-2023 . . Normal [facility] Comment on above: Result Comment: Perf ormed at: WB Performed By: #### [id number] #### [facility] [address] [place] [address] Dr. Claire Mayes Age Gdln ACOG Testing 31- Normal [facility] Comment on above: Performed By: #### [id number] #### [facility] [address] [address] [address] Claire Mayes DIAGNOSIS: Comment Normal [facility] Comment on above: Result Comment: NEGA TIVE FOR INTRAEPITHELIAL LESION OR MALIGNANCY. Performed at: WB Performed By: #### [id number] #### [facility] [address] [address] [address] Claire Mayes HPV Aptima Negative Normal Negative [facility] Comment on above: Result Comment: This nucleic acid amplification test detects fourteen high-risk HPV types (16,18,31,33,35,39,45,51,52,56,58,59,66,68) without differentiation. Performed at: =G Performed By: #### [id number] #### [facility] [address] [address] [address] Claire Mayes HPV Genotype Reflex Comment Normal [facility] Comment on above: Result Comment: Crit eria not met, HPV Genotype not performed. Performed at: WB Performed By: #### [id number] #### [facility] [address] [address] [address] Claire Mayes Methodology: Comment Normal [facility] Comment on above: Result Comment: This liquid based ThinPrep(R) pap test was screened with the use of an image guided system. Performed at: WB Performed By: #### [id number] #### [facility] [address] [place] [address] Dr. Claire Mayes Note: Comment Normal [facility] Comment on above: Result Comment: The Pap smear is a screening test designed to aid in the detection of premalignant and malignant conditions of the uterine cervix. It is not a diagnostic procedure and should not be used as the sole means of detecting cervical cancer. Both false-positive and false-negative reports do occur. . Performed at: WB Performed By: #### [id number] #### [facility] [address] [place] [address] Dr. Claire Mayes Performed by: Comment Normal [facility] Comment on above: Result Comment: Sherlyn Wright, Land Leveler (ASCP) Performed at: WB Performed By: #### [id number] #### [facility] [address] [place] [address] Dr. Claire Mayes Specimen adequacy: Comment Normal [facility] Comment on above: Result Comment: Sati sfactory for evaluation. No endocervical component is identified. Performed at: WB Performed By: #### [id number] #### [facility] [address] [place] [address] Dr. Claire Mayes CBC with Diffon 09-22-2022 Abs. Basophil 0.03 k/uL Normal 0.00-0.20 [facility] Comment on above: Performed By: #### L BJ BUCK, CP #### [facility] [address] [place] [address] Dr. Lawson, [place] [id number] Dairy Frozen Manager: Jesse Curry MD Abs.Imm.Granulocy te 0.04 k/uL Normal 0.00-0.30 [facility] Comment on above: Performed By: #### L BJ BUCK, CP #### [facility] [address] [place] [address] Dairy Frozen Manager: Jesse Curry MD Abs.Neutrophil (Seg) 12.54 k/uL High 1.50-8.10 [facility] Comment on above: Performed By: #### L IP, CDP, CP #### [facility] [address] [place] [address] Dr. Lawson, [place] [address] Dairy Frozen Manager: Jesse Curry MD Basophils/100 WBC (Bld) 0 % Normal 0-2 [facility] Comment on above: Performed By: #### L IP, CDP, CP #### [address] Lawson, [place] [address] Dairy Frozen Manager: Jesse Curry MD Eosinophils (Bld) [#/Vol] 0.16 10*3/uL Normal 0.00-0.44 [facility] Comment on above: Performed By: #### L IP, CDP, CP #### [address] Lawson, [place] [address] Dairy Frozen Manager: Jesse Curry MD Eosinophils/100 WBC (Bld) 1 % Normal 1-4 [facility] Comment on above: Performed By: #### L IP, CDP, CP #### [address] Lawson, [facility]83 Dairy Frozen Manager: Jesse Curry MD Erythrocyte distribution width (RBC) [Ratio] 13.6 % Normal 11.8-14.4 [facility] Comment on above: Performed By: #### L IP, CDP, CP #### [address] Lawson, [facility] Dairy Frozen Manager: Jesse Curry MD Hematocrit (Bld) [Volume fraction] 46.4 % Normal 36.3-47.1 [facility] Comment on above: Performed By: #### L IP, CDP, CP #### [address] Lawson, [facility] Dairy Frozen Manager: Jesse Curry MD Hemoglobin (Bld) [Mass/Vol] 15.6 g/dL High 11.9-15.1 [facility] Comment on above: Performed By: #### L IP, CDP, CP #### [facility] [address] Lawson, [facility] Dairy Frozen Manager: Jesse Curry MD Immature granulocytes/100 WBC (Bld) 0 % Normal 0 [facility] Comment on above: Performed By: #### L IP, CDP, CP #### [facility] [address] Lawson, [facility]83 Dairy Frozen Manager: Jesse Curry MD Lymphocytes (Bld) [#/Vol] 0.98 10*3/uL Low 1.10-3.70 [facility] Comment on above: Performed By: #### L IP, CDP, CP #### [address] Lawson, [facility] Dairy Frozen Manager: Jesse Curry MD Lymphocytes/100 WBC (Bld) 7 % Low 24-43 [facility] Comment on above: Performed By: #### L IP, CDP, CP #### [address] Lawson, [facility]83 Dairy Frozen Manager: Jesse Curry MD MCH (RBC) [Entitic mass] 30.4 pg Normal 25.2-33.5 [facility] Comment on above: Performed By: #### L IP, CDP, CP #### [address] Lawson, [facility]83 Dairy Frozen Manager: Jesse Curry MD MCHC (RBC) [Mass/Vol] 33.6 g/dL Normal 28.4-34.8 [facility] Comment on above: Performed By: #### L IP, CDP, CP #### [address] [place] [address] Dairy Frozen Manager: Jesse Curry MD MCV (RBC) [Entitic vol] 90.3 fL Normal 82.6-102.9 [facility] Comment on above: Performed By: #### L IP, CDP, CP #### [facility] [address] [place], [place] [id number] Dairy Frozen Manager: Jesse Curry MD Monocytes (Bld) [#/Vol] 0.58 10*3/uL Normal 0.10-1.20 [facility] Comment on above: Performed By: #### L IP, CDP, CP #### [facility] [address] Lawson, [facility]83 Dairy Frozen Manager: Jesse Curry MD Monocytes/100 WBC (Bld) 4 % Normal 3-12 [facility] Comment on above: Performed By: #### L IP, CDP, CP #### [facility] [address] Lawson, [place] [address] Dairy Frozen Manager: Jesse Curry MD Neutrophil (Seg) 88 % High 36-65 [facility] Comment on above: Performed By: #### L IP, CDP, CP #### [facility] [address] [place] [address] Dr. Lawson, [facility]83 Dairy Frozen Manager: Jesse Curry MD NRBC Automated 0.0 per 100 WBC Normal 0.0 [facility] Comment on above: Performed By: #### L IP, CDP, CP #### [address] Lawson, [facility]83 Dairy Frozen Manager: Jesse Curry MD Platelet mean volume (Bld) [Entitic vol] 9.9 fL Normal 8.1-13.5 [facility] Comment on above: Performed By: #### L IP, CDP, CP #### [facility] [address] Lawson, [facility]83 Dairy Frozen Manager: Jesse Curry MD Platelets (Bld) [#/Vol] 299 10*3/uL Normal 138-453 [facility] Comment on above: Performed By: #### L IP, CDP, CP #### [facility] [address] Lawson, [facility]83 Dairy Frozen Manager: Jesse Curry MD RBC (Bld) [#/Vol] 5.14 10*6/uL High 3.95-5.11 [facility] Comment on above: Performed By: #### L BJ BUCK, CP #### [facility] [address] [place] [address] Dairy Frozen Manager: Jesse Curry MD WBC (Bld) [#/Vol] 14.3 10*3/uL High 3.5-11.3 [facility] Comment on above: Performed By: #### L BJ BUCK, CP #### [facility] [address] [place] [address] Dairy Frozen Manager: Jesse Curry MD CT ABDOMEN PELVIS W [...] A Maldonado DO 09/22/22 Final result Normal [facility] Comp Metabolic Profon 2021 Albumin [Mass/Vol] 4.7 g/dL Normal 3.5-5.2 [facility] Comment on above: Performed By: #### L IP, CDP, CP #### [facility] [address] [place] [address] [place] [address] Dairy Frozen Manager: Jesse Curry MD Albumin/Glob Ratio 2.0 Normal 1.0-2.5 [facility] Comment on above: Performed By: #### L IP CDP, CP #### [address] [place] [address] Dairy Frozen Manager: Jesse Curry MD Alkaline Phos 77 U/L Normal 35-104 [facility] Comment on above: Performed By: #### L CIELO CDP, CP #### [address] [place] [address] Dairy Frozen Manager: Jesse Curry MD ALT [Catalytic activity/Vol] 10 U/L Normal 5-33 [facility] Comment on above: Performed By: #### L IP, CDP, CP #### [facility] [address] [place] [address] Dr. [place], [place] [id number] Dairy Frozen Manager: Jesse Curry MD Anion gap [Moles/Vol] 12 mmol/L Normal 9-17 [facility] Comment on above: Performed By: #### L IP, CDP, CP #### [address] [place] [address] Dairy Frozen Manager: Jesse Curry MD AST [Catalytic activity/Vol] 14 U/L Normal <32 [facility] Comment on above: Performed By: #### L IP, CDP, CP #### [facility] [address] [place], [place] [id number] Dairy Frozen Manager: Jesse Curry MD Bilirubin [Mass/Vol] 0.6 mg/dL Normal 0.3-1.2 [facility] Comment on above: Performed By: #### L IP, CDP, CP #### [facility] [address] [place], [place] [id number] Dairy Frozen Manager: Jesse Curry MD BUN/CRE Ratio 31 High 9-20 [facility] Comment on above: Performed By: #### L IP, CDP, CP #### [address] Lawson, [place] [id number] Dairy Frozen Manager: Jesse Curry MD Calcium [Mass/Vol] 9.8 mg/dL Normal 8.6-10.4 [facility] Comment on above: Performed By: #### L IP, CDP, CP #### [facility] [address] [place] [address] Dr. Lawson, [place] [id number] Dairy Frozen Manager: Jesse Curry MD Chloride [Moles/Vol] 104 mmol/L Normal 98-107 [facility] Comment on above: Performed By: #### L IP, CDP, CP #### [address] Lawson, [place] 1063783 Dairy Frozen Manager: Jesse Curry MD CO2 [Moles/Vol] 22 mmol/L Normal 20-31 [facility] Comment on above: Performed By: #### L IP, CDP, CP #### [facility] [address] [place] [address] Dr. Lawson, [place] [id number] Dairy Frozen Manager: Jesse Curry MD Creatinine [Mass/Vol] 0.85 mg/dL Normal 0.50-0.90 [facility] Comment on above: Performed By: #### L IP, CDP, CP #### [facility] [address] [place] [address] [place] [address] Dairy Frozen Manager: Jesse Curry MD GFR/1.73 sq M.predicted among non-blacks MDRD (S/P/Bld) [Vol rate/Area] mL/min/{1.73_m2} Normal >60 [facility] Comment on above: Result Comment: Effective [...] By: #### L IP CDP, CP #### [address] [place] [address] Dairy Frozen Manager: Jesse Curry MD Glucose [Mass/Vol] 109 mg/dL High 70-99 [facility] Comment on above: Performed By: #### L IP CDP, CP #### [address] [place] [address] Dairy Frozen Manager: Jesse Curry MD Potassium [Moles/Vol] 4.0 mmol/L Normal 3.7-5.3 [facility] Comment on above: Performed By: #### L IP CDP, CP #### [address] [place] [address] Dairy Frozen Manager: Jesse Curry MD Protein [Mass/Vol] 7.1 g/dL Normal 6.4-8.3 [facility] Comment on above: Performed By: #### L IP CDP, CP #### [address] [place] [address] Dairy Frozen Manager: Jesse Curry MD Sodium [Moles/Vol] 138 mmol/L Normal 135-144 [facility] Comment on above: Performed By: #### L IP, CDP, CP #### [facility] [address] [place] [address] Dr. Lawson, [place] [id number] Dairy Frozen Manager: Jesse Curry MD Urea nitrogen [Mass/Vol] 26 mg/dL High 6-20 [facility] Comment on above: Performed By: #### L BJ BUCK, CP #### [facility] [address] [place] [address] Dairy Frozen Manager: Jesse Curry MD HCG, ,Urineon 09-22 Beta HCG ( test) Ql (U) Negative Normal NEG [facility] Comment on above: Result Comment: Spec imens with hCG levels near the threshold of the test (25 mIU/mL) may give a negative or indeterminate result. In such cases, another test should be performed with a new specimen in 48-72 hours. If early is suspected clinically in this setting, correlation with quantitative serum b-hCG level is suggested. [facility] has confirmed the use of plasma for this test. This has not been cleared or approved by the U.[place]. Food and Drug Administration. The FDA has determined that such clearance is not necessary. Performed By: #### U HCG #### [address] [place] [address] Dairy Frozen Manager: Jesse Curry MD Lactic Acidon 09-22-2022 Lactate [Moles/Vol] 1.8 mmol/L Normal 0.5-2.2 [facility] Comment on above: Performed By: #### L ACTIC #### [facility] [address] [place] [address] Dairy Frozen Manager: Jesse Curry MD Lipaseon 09-22-2022 Lipase [Catalytic activity/Vol] 39 U/L Normal 13-60 [facility] Comment on above: Performed By: #### L BJ BUCK, CP #### [facility] [address] [place] [address] Dairy Frozen Manager: Jesse Curry MD UA w/Reflex Cultureon 2021 Bilirubin, SemiQt,Ur Negative Normal NEG [facility] Comment on above: Performed By: #### U MICAO, UAX #### [facility] [address] [place] [address] Dr. [place], [place] [id number] Dairy Frozen Manager: Jesse Curry MD Blood, Urine Negative Normal NEG [facility] Comment on above: Performed By: #### U MICAO, UAX #### [facility] [address] [place], [place] [id number] Dairy Frozen Manager: Jesse Curry MD Clarity (U) Clear Normal CLEAR [facility] Comment on above: Performed By: #### U MICAO, UAX #### [address] [place], [place] [id number] Dairy Frozen Manager: Jesse Curry MD Color (U) Yellow Normal YEL [facility] Comment on above: Performed By: #### U MICAO, UAX #### [address] Lawson, [place] [id number] Dairy Frozen Manager: Jesse Curry MD Glucose Ql (U) Negative Normal NEG [facility] Comment on above: Performed By: #### U MICAO, UAX #### [address] [place], [place] [id number] Dairy Frozen Manager: Jesse Curry MD Ketones Ql (U) Negative Normal NEG [facility] Comment on above: Performed By: #### U MICAO, UAX #### [facility] [address] [place] [address] Dr. [place], [place] [id number] Dairy Frozen Manager: Jesse Curry MD Leukocyte esterase Test strip Ql (U) Negative Normal NEG [facility] Comment on above: Performed By: #### U MICAO, UAX #### [address] [place], [place] 0783683 Dairy Frozen Manager: Jesse Curry MD Nitrite,Ur Negative Normal NEG [facility] Comment on above: Performed By: #### U MICAO, UAX #### [facility] [address] [place], [place] [id number] Dairy Frozen Manager: Jesse Curry MD PH,Ur 8.0 Normal 5.0-9.0 [facility] Comment on above: Performed By: #### U MICAO, UAX #### [facility] [address] [place], [place] [id number] Dairy Frozen Manager: Jesse Curry MD Protein Ql (U) Negative Normal NEG [facility] Comment on above: Performed By: #### U MICAO, UAX #### [facility] [address] [place], [place] [id number] Dairy Frozen Manager: Jesse Curry MD Spec. [place],Ur 1.020 Normal 1.010-1.020 [facility] Comment on above: Performed By: #### U MICAO, UAX #### [facility] [address] [place] [address] Dr. Lawson, [place] [id number] Dairy Frozen Manager: Jesse Curry MD Urobilinogen,Ur Normal Normal NORM [facility] Comment on above: Performed By: #### U MICAO, UAX #### [address] [place], [place] [id number] Dairy Frozen Manager: Jesse Curry MD Urinalysis,Microon 2 Bacteria TRACE Abnormal NONE [facility] Comment on above: Performed By: #### U MICAO, UAX #### [facility] [address] [place] [address] Dr. [place], [place] [id number] Dairy Frozen Manager: Jesse Curry MD Epithelial cells LM Ql (Urine sed) 0 TO 2 Normal 0-25 [facility] Comment on above: Performed By: #### U MICAO, UAX #### [facility] [address] [place] [address] Dr. [place], [place] [id number] Dairy Frozen Manager: Jesse Curry MD Urine RBC's None Normal 0-2 [facility] Comment on above: Performed By: #### U DARIO, UAX #### [facility] [address] [place] [address] Dairy Frozen Manager: Jesse Curry MD Urine WBC's 0 TO 2 Normal 0-5 [facility] Comment on above: Performed By: #### U DARIO, UAX #### [facility] [address] [place] [address] Dairy Frozen Manager: Jesse Curry MD CBC AUTO DIFFon 02-20-2022 BASO # 0.1 103/ul Normal 0.0-0.1 [facility] Comment on above: Performed By: #### C BC #### [facility] [address] [place] [address] Dr. Claire Mayes Basophils/100 WBC (Bld) 0.8 % Normal 0.2-2.0 [facility] Comment on above: Performed By: #### C BC #### [facility] [address] [place] [address] Dr. Claire Mayes EO # 0.2 103/ul Normal 0.0-0.7 [facility] Comment on above: Performed By: #### C BC #### [facility] [address] [place] [address] Dr. Claire Mayes Eosinophils/100 WBC (Bld) 0.9 % Normal 0.9-7.0 [facility] Comment on above: Performed By: #### C BC #### [facility] [address] [place] [address] Dr. Claire Mayes Erythrocyte distribution width (RBC) [Ratio] 15.0 % Normal 11.0-15.0 [facility] Comment on above: Performed By: #### C BC #### [facility] [address] [place] [address] Dr. Claire Mayes Hematocrit (Bld) [Volume fraction] 31.3 % Critically low 36.0-48.0 [facility] Comment on above: Performed By: #### C BC #### [facility] [address] [place] [address] Dr. Claire Mayes Hemoglobin (Bld) [Mass/Vol] 10.3 g/dL Critically low 12.0-16.0 [facility] Comment on above: Performed By: #### C BC #### [facility] [address] [place] [address] Dr. Claire Mayes IG # 0.21 10e3/ul Critically high 0.00-0.03 [facility] Comment on above: Performed By: #### C BC #### [facility] [address] [place] [address] Dr. Claire Mayes IG % 1.3 % Critically high 0.0-0.5 [facility] Comment on above: Performed By: #### C BC #### [facility] [address] [place] [address] Dr. Claire Mayes LYMPH # 2.1 103/ul Normal 1.2-3.8 [facility] Comment on above: Performed By: #### C BC #### [facility] [address] [place] [address] Dr. Claire Mayes Lymphocytes/100 WBC (Bld) 12.6 % Critically low 20.5-60.0 [facility] Comment on above: Performed By: #### C BC #### [facility] [address] [place] [address] Dr. Claire Mayes MANUAL DIFF REQ NO Normal [facility] Comment on above: Performed By: #### C BC #### [facility] [address] [place] [address] Dr. Claire Mayes MCH (RBC) [Entitic mass] 29.8 pg Normal 26.7-34.0 [facility] Comment on above: Performed By: #### C BC #### [facility] [address] [place] [address] Dr. Claire Mayes MCHC (RBC) [Mass/Vol] 32.9 g/dL Normal 29.9-35.2 [facility] Comment on above: Performed By: #### C BC #### [facility] [address] [place] [address] Dr. Claire Mayes MCV (RBC) [Entitic vol] 90.5 fL Normal 81.0-99.0 [facility] Comment on above: Performed By: #### C BC #### [facility] [address] [place] [address] Dr. Claire Mayes MONO # 0.8 103/ul Normal 0.3-0.8 [facility] Comment on above: Performed By: #### C BC #### [facility] [address] [place] [address] Dr. Claire Mayes Monocytes/100 WBC (Bld) 5.1 % Normal 1.7-12.0 [facility] Comment on above: Performed By: #### C BC #### [facility] [address] [place] [address] Dr. Claire Mayes NEUT # 13.2 103/ul Critically high 1.4-6.5 [facility] Comment on above: Performed By: #### C BC #### [facility] [address] [place] [address] Dr. Claire Mayes Neutrophils/100 WBC (Bld) 79.3 % Critically high 43.0-75.0 [facility] Comment on above: Performed By: #### C BC #### [facility] [address] [place] [address] Dr. Claire Mayes Platelet mean volume (Bld) [Entitic vol] 10.4 fL Normal 9.5-13.5 [facility] Comment on above: Performed By: #### C BC #### [facility] [address] [place] [address] Dr. Claire Mayes PLT 233 103/ul Normal 150-450 [facility] Comment on above: Performed By: #### C BC #### [facility] [address] [place], [place] [id number] Dr. Claire Mayes RBC 3.46 106/ul Critically low 4.20-5.40 [facility] Comment on above: Performed By: #### C BC #### [facility] [address] [place] [address] Dr. Claire Mayes WBC 16.6 103/ul Critically high 4.0-11.0 [facility] Comment on above: Performed By: #### C BC #### [facility] [address] [place] [address] Dr. Claire Mayes CBC AUTO DIFFon 02-18-2022 BASO # 0.1 103/ul Normal 0.0-0.1 [facility] Comment on above: Performed By: #### C BC #### [facility] [address] [place] [address] Dr. Claire Mayes Basophils/100 WBC (Bld) 0.7 % Normal 0.2-2.0 [facility] Comment on above: Performed By: #### C BC #### [facility] [address] [place] [address] Dr. Claire Mayes EO # 0.2 103/ul Normal 0.0-0.7 [facility] Comment on above: Performed By: #### C BC #### [facility] [address] [place] [address] Dr. Claire Mayes Eosinophils/100 WBC (Bld) 1.2 % Normal 0.9-7.0 [facility] Comment on above: Performed By: #### C BC #### [facility] [address] [place] [address] Dr. Claire Mayes Erythrocyte distribution width (RBC) [Ratio] 15.0 % Normal 11.0-15.0 [facility] Comment on above: Performed By: #### C BC #### [facility] [address] [place] [address] Dr. Claire Mayes Hematocrit (Bld) [Volume fraction] 35.1 % Critically low 36.0-48.0 [facility] Comment on above: Performed By: #### C BC #### [facility] [address] [place] [address] Dr. Claire Mayes Hemoglobin (Bld) [Mass/Vol] 11.8 g/dL Critically low 12.0-16.0 [facility] Comment on above: Performed By: #### C BC #### [facility] [address] [place] [address] Dr. Claire Mayes IG # 0.30 10e3/ul Critically high 0.00-0.03 [facility] Comment on above: Performed By: #### C BC #### [facility] [address] [place] [address] Dr. Claire Mayes IG % 1.9 % Critically high 0.0-0.5 [facility] Comment on above: Performed By: #### C BC #### [facility] [address] [place] [address] Dr. Claire Mayes LYMPH # 2.9 103/ul Normal 1.2-3.8 [facility] Comment on above: Performed By: #### C BC #### [facility] [address] [place] [address] Dr. Claire Mayes Lymphocytes/100 WBC (Bld) 18.5 % Critically low 20.5-60.0 [facility] Comment on above: Performed By: #### C BC #### [facility] [address] [place] [address] Dr. Claire Mayes MANUAL DIFF REQ NO Normal [facility] Comment on above: Performed By: #### C BC #### [facility] [address] [place] [address] Dr. Claire Mayes MCH (RBC) [Entitic mass] 30.2 pg Normal 26.7-34.0 [facility] Comment on above: Performed By: #### C BC #### [facility] [address] [place] [address] Dr. Claire Mayes MCHC (RBC) [Mass/Vol] 33.6 g/dL Normal 29.9-35.2 [facility] Comment on above: Performed By: #### C BC #### [facility] [address] [place] [address] Dr. Claire Mayes MCV (RBC) [Entitic vol] 89.8 fL Normal 81.0-99.0 [facility] Comment on above: Performed By: #### C BC #### [facility] [address] [place] [address] Dr. Claire Mayes MONO # 0.7 103/ul Normal 0.3-0.8 [facility] Comment on above: Performed By: #### C BC #### [facility] [address] [place] [address] Dr. Claire Mayes Monocytes/100 WBC (Bld) 4.7 % Normal 1.7-12.0 [facility] Comment on above: Performed By: #### C BC #### [facility] [address] [place] [address] Dr. Claire Maeys NEUT # 11.3 103/ul Critically high 1.4-6.5 [facility] Comment on above: Performed By: #### C BC #### [facility] [address] [place] [address] Dr. Claire Mayes Neutrophils/100 WBC (Bld) 73.0 % Normal 43.0-75.0 [facility] Comment on above: Performed By: #### C BC #### [facility] [address] [place] [address] Dr. Claire Mayes Platelet mean volume (Bld) [Entitic vol] 10.8 fL Normal 9.5-13.5 [facility] Comment on above: Performed By: #### C BC #### [facility] [address] [place] [address] Dr. Claire Mayes PLT 233 103/ul Normal 150-450 [facility] Comment on above: Performed By: #### C BC #### [facility] [address] [place] [address] Dr. Claire Mayes RBC 3.91 106/ul Critically low 4.20-5.40 [facility] Comment on above: Performed By: #### C BC #### [facility] [address] [place] [address] Dr. Claire Mayes WBC 15.5 103/ul Critically high 4.0-11.0 [facility] Comment on above: Performed By: #### C BC #### [facility] [address] [place] [address] Dr. Claire Mayes [facility]on SARS-CoV-2 (COVID-19) RNA FERDINAND+probe Ql (Unsp spec) Not detected Normal NOT DETECTED [facility] Comment on above: Result Comment: [...] for this test is supported by the [place] of Health and Human Service's declaration that [...] used). Performed By: #### C VDTBH #### [facility] [address] [place] [address] Dr. Claire Mayes DRUG SCREEN RAPID (URINE)on 02-18-2022 AMP Negative Normal NEGATIVE [facility] Comment on above: Performed By: #### D RUGRPD #### [facility] [address] [place] [address] Dr. Claire Mayes BAR Negative Normal NEGATIVE [facility] Comment on above: Performed By: #### D RUGRPD #### [facility] [address] [place] [address] Dr. Claire Mayes BUP Negative Normal NEGATIVE [facility] Comment on above: Performed By: #### D RUGRPD #### [facility] [address] [place] [address] Dr. Claire Mayes BZO Negative Normal NEGATIVE [facility] Comment on above: Performed By: #### D RUGRPD #### [facility] [address] [place] [address] Dr. Claire Mayes KIT Negative Normal NEGATIVE [facility] Comment on above: Performed By: #### D RUGRPD #### [facility] [address] [place] [address] Dr. Claire Mayes CUT-OFFS SEE BELOW Normal [facility] Comment on above: Result Comment: AMP (Amphetamine): 500ng/mL, BAR (Barbituates): 200 ng/mL, BZO (Benzodiazepines): 150 ng/mL, BUP (Buprenorphine): 10 ng/mL, KIT (Cocaine): 150 ng/mL, mAMP (Methamphetamine): 500 ng/mL, MTD (Methadone): 200 ng/mL, OPI (Opiates): 100 ng/mL, OXY (Oxycodone): 100 ng/mL, PCP (Phencyclidine): 25 ng/mL, PPX (Propoxyphene): 300 ng/mL, THC (Cannabinoids): 50 ng/mL, TCA (Trycyclic Antidepressants): 300 ng/mL Performed By: #### D RUGRPD #### [facility] [address] [place] [address] Dr. Claire Mayes DRUG CUT HEADER DRUG CLASS TEST SYST EM CUT-OFF CONCENTRATIONS ARE FOLLOWS: Normal [facility] Comment on above: Performed By: #### D RUGRPD #### [facility] [address] [address] [address] Claire Mayes mAMP Negative Normal NEGATIVE [facility] Comment on above: Performed By: #### D RUGRPD #### [facility] [address] [address] [address] Claire Mayes MTD Negative Normal NEGATIVE [facility] Comment on above: Performed By: #### D RUGRPD #### [facility] [address] [address] [address] Claire Mayes OPI Negative Normal NEGATIVE [facility] Comment on above: Performed By: #### D RUGRPD #### [facility] [address] [address] [address] Claire Mayes OXY Negative Normal NEGATIVE [facility] Comment on above: Performed By: #### D RUGRPD #### [facility] [address] [address] [address] Claire Mayes PCP Negative Normal NEGATIVE [facility] Comment on above: Performed By: #### D RUGRPD #### [facility] [address] [address] [address] Claire Mayes PPX Negative Normal NEGATIVE [facility] Comment on above: Performed By: #### D RUGRPD #### [facility] [address] [address] [address] Claire Mayes TCA Negative Normal NEGATIVE [facility] Comment on above: Performed By: #### D RUGRPD #### [facility] [address] [place] [address] Dr. Claire Mayes THC Negative Normal NEGATIVE [facility] Comment on above: Performed By: #### D RUGRPD #### [facility] [address] [address] [address] Claire Mayes TYPE AND SCREENon 02-18-2022 TYPE AND SCREEN Negative Normal [facility] Comment on above: Performed By: #### T NS #### [facility] [address] [place] [address] Dr. Claire Mayes US PREG BIOPHY W [...] by: JESSE THOMAS Date: 2022-02-17 14:27 Normal [facility] US PREG BIOPHY W NON STRESSo n [...] by: BLU FELIPE Date: 2022-02-10 16:40 Normal [facility] GROUP B STREP CULTUREon 01-14 S. agalactiae Ag Ql (Unsp spec) Culture Observations: Beta Strep called to Belgica Lange at office 02/04/22 @[address] [place] [address] Isolate 1 Streptococcus agalactiae Heavy growth of ORGANISM 1 Streptococcus agalactiae ANTIBIOTIC M.I.C RX STATUS Benzylpenicillin <=0.06 S F Ampicillin <=0.25 S F Cefotaxime <=0.12 S F Ceftriaxone <=0.12 S F Levofloxacin 0.5 S F Erythromycin 2 R F Clindamycin <=0.25 S F Linezolid <=2 S F Vancomycin 0.5 S F Tetracycline >=16 R F Normal [facility] Comment on above: Performed By: #### G BSCX #### [facility] [address] [place] [address] Dr. 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 Diagnoses/Problems Assessed Irregular menses (626.4) (N92.6) Female infertility (628.9) (N97.9) Protein S deficiency (289.81) (D68.59) Occupation [employer] ED Provider Impressions 30 year-old desires to [...] ] Imaging: Saline US, can do at [place] [x ] Vitamin D, TSH, prolactin [ [...] contour on HSG - images reviewed from [facility] 08/2018 Uterine Cavity Evaluation: Normal [...] Peak E2 1871--> IM P4--> successful 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 Hx: LMP: 05/29/21 Menstrual cycles: Have been fairly regular for the past 3 months; 30-35 days Pap smear: 2018, up to date Mammogram: None PMH/Surg Hx/Social Hx: See below Hx of Clotting disorders: Yes- Protein S deficiency Currently on Lovenox 40 mg daily Was on Lovenox 60 mg daily prior to Needs to be on therapeutic dosing when Genetic Screening Hx: [employer] foresight screen negative Partner History: Franklin Ashley 04/09/1990 SA in past year: 2.8 cc 125 mil/mL 69% motility WNU=634 million (recent IUI sample) Morph from original SA was 2.8% Active Problems Problems 16 weeks gest (more content not included)... Normal [employer] CBC AND DIFFERENTIALon 08-06 % AUTOMATED IMMATURE GRAN 0.3 % Normal 0.0 - 0.9 [facility] Comment on above: Result Comment: Graciela ture Granulocyte Count (IG) includes promyelocytes, myelocytes and metamyelocytes but does not include bands. Percent differential counts (%) should be interpreted in the context of the absolute cell counts (cells/L). Performed By: #### C BCDF #### [address] [place] [address] Basophils (Bld) [#/Vol] 0.09 10*3/uL Normal 0.00 - 0.10 [facility] Comment on above: Performed By: #### C BCDF #### [address] [place] [address] Basophils/100 WBC (Bld) 0.9 % Normal 0.0 - 2.0 [facility] Comment on above: Performed By: #### C BCDF #### [address] [place] [address] Eosinophils (Bld) [#/Vol] 0.23 10*3/uL Normal 0.00 - 0.70 [facility] Comment on above: Performed By: #### C BCDF #### [address] [place] [address] Eosinophils/100 WBC (Bld) 2.4 % Normal 0.0 - 6.0 [facility] Comment on above: Performed By: #### C BCDF #### [address] [place] [address] Erythrocyte distribution width (RBC) [Ratio] 14.3 % Normal 11.5 - 14.5 [facility] Comment on above: Performed By: #### C BCDF #### [address] [place] [address] Hematocrit (Bld) [Volume fraction] 40.4 % Normal 36.0 - 46.0 [facility] Comment on above: Performed By: #### C BCDF #### [address] [place] [address] Hemoglobin (Bld) [Mass/Vol] 12.9 g/dL Normal 12.0 - 16.0 [facility] Comment on above: Performed By: #### C BCDF #### [address] [place] [address] Lymphocytes (Bld) [#/Vol] 2.44 10*3/uL Normal 1.20 - 4.80 [facility] Comment on above: Performed By: #### C BCDF #### [address] [place] [address] Lymphocytes/100 WBC (Bld) 25.7 % Normal 13.0 - 44.0 [facility] Comment on above: Performed By: #### C BCDF #### [address] [place] [address] MCHC (RBC) [Mass/Vol] 31.9 g/dL Low 32.0 - 36.0 [facility] Comment on above: Performed By: #### C BCDF #### [address] [place] [address] MCV (RBC) [Entitic vol] 88 fL Normal 80 - 100 [facility] Comment on above: Performed By: #### C BCDF #### [address] [place] [address] Monocytes (Bld) [#/Vol] 0.55 10*3/uL Normal 0.10 - 1.00 [facility] Comment on above: Performed By: #### C BCDF #### [address] [place] [address] Monocytes/100 WBC (Bld) 5.8 % Normal 2.0 - 10.0 [facility] Comment on above: Performed By: #### C BCDF #### [address] [place] [address] Neutrophils (Bld) [#/Vol] 6.15 10*3/uL Normal 1.20 - 7.70 [facility] Comment on above: Performed By: #### C BCDF #### [address] [place] [address] Neutrophils/100 WBC (Bld) 64.9 % Normal 40.0 - 80.0 [facility] Comment on above: Performed By: #### C BCDF #### [address] [place] [address] Platelets (Bld) [#/Vol] 410 10*3/uL Normal 150 - 450 [facility] Comment on above: Performed By: #### C BCDF #### [address] [place] [address] RBC (Bld) [#/Vol] 4.58 x10E12/L Normal 4.00 - 5.20 [facility] Comment on above: Performed By: #### C BCDF #### [address] [place] [address] WBC (Bld) [#/Vol] 9.5 10*3/uL Normal 4.4 - 11.3 [facility] Comment on above: Performed By: #### C BCDF #### [address] [place] [address] COMMERCIAL TRAILER TRUCK DRIVER - Visiton 08-06-2020 COMMERCIAL TRAILER TRUCK DRIVER - Visit Chief Complaint The patient is [...] with LMWH and has follow-up with her Sound Tester 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 Reports her asthma is stable. [...] or homicidal ideation Vitals Vital Signs Recorded: [id number] 01:08PM Heart Rate62 Vewgmigg118 Ftvqcpbut09 Height5 ft 2 in Jymicf374 lb BMI Qyegqsfftu19.28 BSA Calculated1.79 Tobacco Useb) No Fall Screeninga) [...] ongoing well-woman care with her current local Corrections Unit Supervisor. She has Hematology follow-up today following our [...] Aug 06 2020 2:00PM EST (Author) Normal [employer] Complete Blood Count + Diffe marc 06-27-2020 Basophils/100 WBC (Bld) 0.5 % 0.0 - 2.0 QS-AXMNO-Kcaew[address] Work Phone: Eosinophils (Bld) [#/Vol] 0.24 {x10E9/L} See Below AU-KLAUC-Icosc[address] Work Phone: Comment on above: Reference Range: 0.0 0 - 0.70 Eosinophils/100 WBC (Bld) 1.1 % 0.0 - 6.0 JL-OAMWM-Liabk[address] Work Phone: Erythrocyte distribution width (RBC) [Ratio] 15.0 % above high threshold See Below CP-RWJSN-Ewnsn[address] Work Phone: Comment on above: Reference Range: 11. 5 - 14.5 Hematocrit (Bld) [Volume fraction] 30.0 % below low threshold See Below IU-KGOVO-Kpnms[address] Work Phone: Comment on above: Reference Range: 36. 0 - 46.0 Hemoglobin (Bld) [Mass/Vol] 9.8 g/dL below low threshold See Below TZ-BCKES-Scodc[address] Work Phone: Comment on above: Reference Range: 12. 0 - 16.0 Lymphocytes (Bld) [#/Vol] 2.25 {x10E9/L} See Below SX-YVPHO-Hgang wn 2nd Fl Work Phone: Comment on above: Reference Range: 1.2 0 - 4.80 Lymphocytes/100 WBC (Bld) 10.4 % See Below RQ-PARBW-Domzq wn 2nd Fl Work Phone: Comment on above: Reference Range: 13. 0 - 44.0 MCHC (RBC) [Mass/Vol] 32.7 g/dL See Below UZ-HZCKK-Fejks wn 2nd Fl Work Phone: Comment on above: Reference Range: 32. 0 - 36.0 MCV (RBC) [Entitic vol] 91 fL 80 - 100 MY-IACSP-Gmjgt wn 2nd Fl Work Phone: Monocytes (Bld) [#/Vol] 0.84 {x10E9/L} See Below OZ-OOBUG-Fopra wn 2nd Fl Work Phone: Comment on above: Reference Range: 0.1 0 - 1.00 Monocytes/100 WBC (Bld) 3.9 % 2.0 - 10.0 UZ-HPFUH-Lctij wn 2nd Fl Work Phone: Neutrophils/100 WBC (Bld) 82.7 % See Below YM-XOWJW-Qywbm wn 2nd Fl Work Phone: Comment on above: Reference Range: 40. 0 - 80.0 Platelets (Bld) [#/Vol] 225 {x10E9/L} 150 - 450 DG-HRGTJ-Ngccy wn 2nd Fl Work Phone: RBC (Bld) [#/Vol] 3.31 {x10E12/L} below low threshold See Below FU-MYZRL-Rsibp [facility] Fl Work Phone: Comment on above: Reference Range: 4.0 0 - 5.20 WBC (Bld) [#/Vol] 0.0 {/100_WBC} 0.0-0.0 MG- [id number] Fl Work Phone: WBC (Bld) [#/Vol] 21.6 {x10E9/L} above high threshold 4.4 - 11.3 LU-NEDYO-Uobxq wn 2nd Fl Work Phone: Complete Blood Count + Differential 0.11 {x10E9/L} above high threshold See Below ON-HASLM-Flixf wn 2nd Fl Work Phone: Comment on above: Reference Range: 0.0 0 - 0.10 Complete Blood Count + Differential 1.4 % above high threshold 0.0 - 0.9 FE-MTLXE-Kpvfh[address] Work Phone: Comment on above: Immature Granulocyte Count (IG) includes promyelocytes, myelocytes and metamyelocytes but does not include bands. Percent differential counts (%) should be interpreted in the context of the absolute cell counts (cells/L). Complete Blood Count + Differential 17.85 {x10E9/L} above high threshold See Below XN-MPDXJ-Btlha[address] Work Phone: Comment on above: Reference Range: 1.2 0 - 7.70 Hematologyon 06-26-2020 Hematocrit (Bld) [Volume fraction] 30.5 % below low threshold See Below PU-KCWAM-Jmwlg wn 2nd Fl Work Phone: Comment on above: Reference Range: 36. 0 - 46.0 Hemoglobin (Bld) [Mass/Vol] 10.7 g/dL below low threshold See Below XW-EQKRH-Sxzkk wn 2nd Fl Work Phone: Comment on above: Reference Range: 12. 0 - 16.0 MCV (RBC) [Entitic vol] 84 fL 80 - 100 CO-HSJVM-Dagqq[address] Work Phone: Platelets (Bld) [#/Vol] 258 {x10E9/L} 150 - 450 II-YVHQR-Fapfa wn 2nd Fl Work Phone: RBC (Bld) [#/Vol] 3.62 {x10E12/L} below low threshold See Below FW-JBWUT-Ajmwr wn 2nd Fl Work Phone: Comment on above: Reference Range: 4.0 0 - 5.20 WBC (Bld) [#/Vol] 0.0 {/100_WBC} 0.0-0.0 MG- OBGYN-Midto wn 2nd Fl Work Phone: WBC (Bld) [#/Vol] 35.7 {x10E9/L} above high threshold 4.4 - 11.3 YC-WMGBI-Txqar wn 2nd Fl Work Phone: Otheron 06-26-2020 Erythrocyte distribution width (RBC) [Ratio] 14.6 % above high threshold See Below XK-FWWIK-Sxwob wn 2nd Fl Work Phone: Comment on above: Reference Range: 11. 5 - 14.5 MCHC (RBC) [Mass/Vol] 35.1 g/dL See Below SK-UNWGB-Ijqbg 2nd Fl Work Phone: Comment on above: [...] 3.5 cm, located 1.0 cm from themargin. Pharmacy Technician Inpatient sections are submitted in 5 cassettes.AXQ/LMPSummary of Cassettes:Specimen Label SiteA 1 umbilical cord sections 2 membrane rolls 3 placental parenchyma, umbilical cord insertion site 4 placental parenchyma 5 placental parenchyma, lesionaxq/06/26/2020 CF-UFCKA-Zjdcc[address] Work Phone: Coronavirus 2019 RNA by PCR, Symptomaticon 06-25-2020 Coronavirus 2019 RNA by PCR, Symptomatic NOT DETECTED See Below MK-OVZQO-Fbqog wn 2nd Ar Work Phone: Comment on above: [...] this test method. Fact sheet for providers: www.fda.gov/media/370136/downloadFact sheet for patients: www.fda.gov/media/650184/downloadThis test has received FDA Emergency Use Authorization (EUA) and has been verified by [facility] ([facility]). This test is only authorized for the duration of time that circumstances exist to justify the authorization of the emergency use of in vitro diagnostic tests for the detection of SARS-CoV-2 virus and/or diagnosis of COVID-19 infection under section 564(b)(1) of the Act, 21 U.S.C. 360bbb-3(b)(1), unless the authorization is terminated or revoked sooner. [facility] is certified under CLIA-88 as qualified to perform high complexity testing. Testing is performed in the [facility] laboratories located at [address] [place] [address]. Hematologyon 06-25-2020 ABO group Nom (Bld) A [address] Work Phone: Blood group antibody screen Ql Negative DK-FICOD-Lkgep[address] Work Phone: Hematocrit (Bld) [Volume fraction] 34.7 % below low threshold See Below ZN-DYOTZ-Idhyq[address] Work Phone: Comment on above: Reference Range: 36. 0 - 46.0 Hemoglobin (Bld) [Mass/Vol] 11.6 g/dL below low threshold See Below WG-GTQKJ-Tlwem[address] Work Phone: Comment on above: Reference Range: 12. 0 - 16.0 MCV (RBC) [Entitic vol] 90 fL 80 - 100 IL-NNAJI-Gpbro[address] Work Phone: Platelets (Bld) [#/Vol] 268 {x10E9/L} 150 - 450 EM-ICHCT-Lfsfe[address] Work Phone: RBC (Bld) [#/Vol] 3.85 {x10E12/L} below low threshold See Below WE-MGBJU-Mqgpq[address] Work Phone: Comment on above: Reference Range: 4.0 0 - 5.20 Rh immune globulin screen (Bld) [Interp] Positive FC-SKYGH-Yoidm[address] Work Phone: WBC (Bld) [#/Vol] 0.0 {/100_WBC} 0.0-0.0 [facility] Work Phone: WBC (Bld) [#/Vol] 15.5 {x10E9/L} above high threshold 4.4 - 11.3 NV-BOYWH-Mpccw[address] Work Phone: Otheron 06-25-2020 Erythrocyte distribution width (RBC) [Ratio] 14.4 % See Below TU-URHWA-Jzxsr[address] Work Phone: Comment on above: Reference Range: 11. 5 - 14.5 MCHC (RBC) [Mass/Vol] 33.4 g/dL See Below LZ-ABHMV-Nntve[address] Work Phone: Comment on above: Reference Range: 32. 0 - 36.0 SYPHILIS SCREENING WITH REFL EXon 06-25-2020 T. pallidum IgG+IgM IA Ql (S) NONREACTIVE See Below [address] Work Phone: Comment on above: SOURCE: Reference Ra nge: NONREACTIVENo significant level of Treponema pallidum antibody detected. Repeat testing in 2 to 4 weeks may be considered if early infection or incubating syphilis infection is suspected. Imm/Pathon 06-07-2020 Bacteria identified Aer cx Nom (Genital specimen) PATIENT: KIARA ASHLEY LOCATION: [facility] BILL#: [id number] : 89 AGE: SEX: F ORDERED BY: PARAS GUEVARA: VAGINAL COLLECTED: 06/07/20 09:36ANTIBIOTICS AT [facility].: RECEIVED : 06/08/20 07:27SITE: VAGINAL R E S U L T S GROUP B STREP SCREEN PRELIM 06/09/20 08:35 CULTURE IN PROGRESS. PK-OGZFT-GNO [address] [place] Work Phone: Bacteria identified Aer cx Nom (Genital specimen) PATIENT: KIARA ASHLEY LOCATION: [facility] BILL#: [id number] : 89 AGE: SEX: F ORDERED BY: PARAS GUEVARA: VAGINAL COLLECTED: 06/07/20 09:36ANTIBIOTICS AT [facility].: RECEIVED : 06/08/20 07:27SITE: VAGINAL R E S U L T S GROUP B STREP SCREEN FINAL 06/10/20 11:54 NEGATIVE FOR GROUP B BETA STREP. LW-HJTLF-Ovccn wn 2nd Fl Work Phone: Otheron 06-07-2020 [...] growth-No malformations were identified on a limited survey-[facility] 06/22 The patient is aware of [...] signed by: RILEY TREVIÑO 06/07/20 09:33 Normal DS-TKVAJ-XBJ [address] [place] Work Phone: Comment on above: ORDER REVISED TO A O B FOLLOW UP OR REPEAT SCAN BY RADIOLOGIST; Original Order Number: [id number] CBC AND DIFFERENTIALon 06-10 -2020 % AUTOMATED IMMATURE GRAN 1.9 % High 0.0 - 0.9 [facility] Comment on above: Result Comment: Graciela ture Granulocyte Count (IG) includes promyelocytes, myelocytes and metamyelocytes but does not include bands. Percent differential counts (%) should be interpreted in the context of the absolute cell counts (cells/L). Performed By: #### C BCDF #### [address] [place] [address] Basophils (Bld) [#/Vol] 0.08 10*3/uL Normal 0.00 - 0.10 [facility] Comment on above: Performed By: #### C BCDF #### [address] [place] [address] Basophils/100 WBC (Bld) 0.5 % Normal 0.0 - 2.0 [facility] Comment on above: Performed By: #### C BCDF #### [address] [place] [address] Eosinophils (Bld) [#/Vol] 0.22 10*3/uL Normal 0.00 - 0.70 [facility] Comment on above: Performed By: #### C BCDF #### [address] [place] [address] Eosinophils/100 WBC (Bld) 1.5 % Normal 0.0 - 6.0 [facility] Comment on above: Performed By: #### C BCDF #### [address] [place] [address] Erythrocyte distribution width (RBC) [Ratio] 14.0 % Normal 11.5 - 14.5 [facility] Comment on above: Performed By: #### C BCDF #### [address] [place] [address] Hematocrit (Bld) [Volume fraction] 35.6 % Low 36.0 - 46.0 [facility] Comment on above: Performed By: #### C BCDF #### [address] [place] [address] Hemoglobin (Bld) [Mass/Vol] 11.8 g/dL Low 12.0 - 16.0 [facility] Comment on above: Performed By: #### C BCDF #### [address] [place] [address] Lymphocytes (Bld) [#/Vol] 2.38 10*3/uL Normal 1.20 - 4.80 [facility] Comment on above: Performed By: #### C BCDF #### [address] [place] [address] Lymphocytes/100 WBC (Bld) 16.0 % Normal 13.0 - 44.0 [facility] Comment on above: Performed By: #### C BCDF #### [address] [place] [address] MCHC (RBC) [Mass/Vol] 33.1 g/dL Normal 32.0 - 36.0 [facility] Comment on above: Performed By: #### C BCDF #### [address] [place] [address] MCV (RBC) [Entitic vol] 92 fL Normal 80 - 100 [facility] Comment on above: Performed By: #### C BCDF #### [address] [place] [address] Monocytes (Bld) [#/Vol] 0.74 10*3/uL Normal 0.10 - 1.00 [facility] Comment on above: Performed By: #### C BCDF #### [address] [place] [address] Monocytes/100 WBC (Bld) 5.0 % Normal 2.0 - 10.0 [facility] Comment on above: Performed By: #### C BCDF #### [address] [place] [address] Neutrophils (Bld) [#/Vol] 11.17 10*3/uL High 1.20 - 7.70 [facility] Comment on above: Performed By: #### C BCDF #### [address] [place] [address] Neutrophils/100 WBC (Bld) 75.1 % Normal 40.0 - 80.0 [facility] Comment on above: Performed By: #### C BCDF #### [address] [place] [address] Platelets (Bld) [#/Vol] 285 10*3/uL Normal 150 - 450 [facility] Comment on above: Performed By: #### C BCDF #### [address] [place] [address] RBC (Bld) [#/Vol] 3.89 x10E12/L Low 4.00 - 5.20 [facility] Comment on above: Performed By: #### C BCDF #### [address] [place] [address] WBC (Bld) [#/Vol] 14.9 10*3/uL High 4.4 - 11.3 [facility] Comment on above: Performed By: #### C BCDF #### [address] [place] [address] COMPREHENSIVE PANELon 2019 ALP [Catalytic activity/Vol] 79 U/L Normal 33 - 110 [facility] Comment on above: Performed By: #### C MP #### [address] [place] [address] [facility] [address] [place] [address] ALT [Catalytic activity/Vol] 7 U/L Normal 7 - 45 [facility] Comment on above: Result Comment: Melida ents treated with Sulfasalazine may generate falsely decreased results for ALT. Performed By: #### C MP #### [address] [place] [address] [facility] [address] [place] [address] AST [Catalytic activity/Vol] 13 U/L Normal 9 - 39 [facility] Comment on above: Performed By: #### C MP #### [address] [place] [address] [place] [address] Bilirubin [Mass/Vol] 0.3 mg/dL Normal 0.0 - 1.2 [facility] Comment on above: Performed By: #### C MP #### [address] [place] [address] [place] [address] Protein [Mass/Vol] 5.9 g/dL Low 6.4 - 8.2 [facility] Comment on above: Performed By: #### C MP #### [address] [place] [address] [place] [address] Anion gap [Moles/Vol] 12 mmol/L Normal 10 - 20 [facility] Comment on above: Performed By: #### C MP #### [address] [place] [address] [place] [address] Chloride [Moles/Vol] 106 mmol/L Normal 98 - 107 [facility] Comment on above: Performed By: #### C MP #### [address] [place] [address] [place] [address] Potassium [Moles/Vol] 3.7 mmol/L Normal 3.5 - 5.3 [facility] Comment on above: Performed By: #### C MP #### [address] [place] [address] [place] [address] Sodium [Moles/Vol] 137 mmol/L Normal 136 - 145 [facility] Comment on above: Performed By: #### C MP #### [address] [place] [address] [place] [address] Calcium [Mass/Vol] 9.2 mg/dL Normal 8.6 - 10.3 [facility] Comment on above: Performed By: #### C MP #### [address] [place] [address] [place] [address] Glucose [Mass/Vol] 95 mg/dL Normal 74 - 99 [facility] Comment on above: Performed By: #### C MP #### [address] [place] [address] [address] [place] [address] Urea nitrogen [Mass/Vol] 7 mg/dL Normal 6 - 23 [facility] Comment on above: Performed By: #### C MP #### [address] [place] [address] [address] [place] [address] Albumin [Mass/Vol] 3.4 g/dL Normal 3.4 - 5.0 [facility] Comment on above: Performed By: #### C MP #### [address] [place] [address] [address] [place] [address] Creatinine [Mass/Vol] 0.70 mg/dL Normal 0.50 - 1.05 [facility] Comment on above: Performed By: #### C MP #### [address] [place] [address] [address] [place] [address] GFR- AM. >60 Normal >60 [facility] Comment on above: Result Comment: CALC ULATIONS OF ESTIMATED GFR ARE PERFORMED USING THE MDRD STUDY EQUATION FOR THE IDMS-TRACEABLE CREATININE METHODS. CLIN CHEM 2007;53:766-72 Performed By: #### C MP #### [address] [place] [address] [address] [place] [address] GFR-NON AM. >60 Normal >60 [facility] Comment on above: Performed By: #### C MP #### [address] [place] [address] [place] [address] HCO3 (Bld) [Moles/Vol] 23 mmol/L Normal 21 - 32 [facility] Comment on above: Performed By: #### C MP #### [address] [place] [address] [place] [address] FERRITINon 04-24-2020 Ferritin [Mass/Vol] 8 ug/L Normal 8 - 150 [facility] Comment on above: Performed By: #### F ERRI #### [address] [place] [address] IRON + TIBCon 04-24-2020 % SATURATION 14 % Low 25 - 45 [facility] Comment on above: Performed By: #### I RONT #### [address] [place] [address] Iron [Mass/Vol] 65 ug/dL Normal 35 - 150 [facility] Comment on above: Performed By: #### I RONT #### [address] [place] [address] TIBC 449 ug/dL High 240 - 445 [facility] Comment on above: Performed By: #### I RONT #### [address] [place] [address] Complete Blood Count + Diffe rentialon 12-25-2019 Basophils/100 WBC (Bld) 1.0 % 0.0 - 2.0 VO-OIKTT-FHJ [address] [place] Work Phone: Eosinophils (Bld) [#/Vol] 0.37 {x10E9/L} See Below XU-GHBYH-EYS [address] [place] Work Phone: Comment on above: Reference Range: 0.0 0 - 0.70 Eosinophils/100 WBC (Bld) 3.0 % 0.0 - 6.0 AV-PAWZC-AMJ [address] [place] Work Phone: Erythrocyte distribution width (RBC) [Ratio] 13.4 % See Below UM-BVJSG-RMT [address] [place] Work Phone: Comment on above: Reference Range: 11. 5 - 14.5 Hematocrit (Bld) [Volume fraction] 41.8 % See Below QX-YQSDO-WRC [address] [place] Work Phone: Comment on above: Reference Range: 36. 0 - 46.0 Hemoglobin (Bld) [Mass/Vol] 13.6 g/dL See Below CS-ECHMZ-FFE [address] [place] Work Phone: Comment on above: Reference Range: 12. 0 - 16.0 Lymphocytes (Bld) [#/Vol] 2.52 {x10E9/L} See Below RR-QJJPO-UKK [address] [place] Work Phone: Comment on above: Reference Range: 1.2 0 - 4.80 Lymphocytes/100 WBC (Bld) 20.2 % See Below AG-UPIRQ-GUU [address] [place] Work Phone: Comment on above: Reference Range: 13. 0 - 44.0 MCHC (RBC) [Mass/Vol] 32.5 g/dL See Below BP-MWYQD-ZEY [address] [place] Work Phone: Comment on above: Reference Range: 32. 0 - 36.0 MCV (RBC) [Entitic vol] 95 fL 80 - 100 QD-SUCBA-TTG [address] [place] Work Phone: Monocytes (Bld) [#/Vol] 0.58 {x10E9/L} See Below JX-LSEJO-UMA [address] [place] Work Phone: Comment on above: Reference Range: 0.1 0 - 1.00 Monocytes/100 WBC (Bld) 4.6 % 2.0 - 10.0 XK-SSBHG-ZJB [address] [place] Work Phone: Neutrophils/100 WBC (Bld) 70.6 % See Below CN-XWIPT-ODV [address] [place] Work Phone: Comment on above: Reference Range: 40. 0 - 80.0 Platelets (Bld) [#/Vol] 372 {x10E9/L} 150 - 450 XC-YMXVG-URI [address] [place] Work Phone: RBC (Bld) [#/Vol] 4.40 {x10E12/L} See Below MG -OBGYN-MAC [address] [place] Work Phone: Comment on above: Reference Range: 4.0 0 - 5.20 WBC (Bld) [#/Vol] 0.0 {/100_WBC} 0.0-0.0 MG- OBGYN-MAC [address] [place] Work Phone: WBC (Bld) [#/Vol] 12.7 {x10E9/L} above high threshold 4.4 - 11.3 GM-NWFRM-DJM [address] [place] Work Phone: Comment on above: SOURCE: Complete Blood Count + Differential 8.81 {x10E9/L} above high threshold See Below OA-MBUFA-ZTI [address] [place] Work Phone: Comment on above: Reference Range: 1.2 0 - 7.70 Complete Blood Count + Differential 0.6 % 0.0 - 0.9 BH-OHSIX-XLC [address] [place] Work Phone: Comment on above: Percent differential counts (%) should be interpreted in the context of the absolute cell counts (cells/L). Complete Blood Count + Differential 0.13 {x10E9/L} above high threshold See Below RQ-TCIBB-NBN [address] [place] Work Phone: Comment on above: Reference Range: 0.0 0 - 0.10 Cult, Urineon 12-25-2019 Bacteria identified Cx Nom (U) PATIENT: KIARA ASHLEY LOCATION: [id number] BILL#: [id number] : 89 AGE: SEX: F ORDERED BY: PARAS GUEVARA: URINE COLLECTED: 12/25/19 09:41ANTIBIOTICS AT [place].: RECEIVED : 12/25/19 17:06SITE: Clean Catch/Voided R E S U L T S URINE CULTURE,BACTERIAL FINAL 12/26/19 10:21 NO SIGNIFICANT GROWTH. VJ-BUSVV-NFD [address] [place] Work Phone: Hematologyon 12-25-2019 ABO group Nom (Bld) A LT-BUPGD-VKX [address] [place] Work Phone: Blood group antibody screen Ql Negative SD-ZAGTM-SKZ [address] [place] Work Phone: Rh immune globulin screen (Bld) [Interp] Positive OE-TJUXR-RHL [address] [place] Work Phone: Hepatitis B Surface Antigeno n 12-25-2019 Hepatitis B Surface Antigen NONREACTIVE See Below SW-LRVHH-MQY [address] [place] Work Phone: Comment on above: [...] Hepatitis C Antibody Test NON-REACTIVE See Below EZ-UBTIS-LDR [address] [place] Work Phone: Comment on above: SOURCE: Reference Ra nge: NONREACTIVE Patients receiving more than 5 mg/day of biotin may have interference in test results. A sample should be taken no sooner than eight hours after previous dose. Contact the testing laboratory for additional information. Metabolic Panelon 12-25-2019 ALP [Catalytic activity/Vol] 67 U/L 33 - 110 HP-OAWYE-NOW [address] [place] Work Phone: Anion gap [Moles/Vol] 15 mmol/L 10 - 20 UD-SCBIX-JFH [address] [place] Work Phone: Bilirubin [Mass/Vol] 0.3 mg/dL 0.0 - 1.2 NZ-NOQSW-GVS [address] [place] Work Phone: Calcium [Mass/Vol] 9.6 mg/dL 8.6 - 10.6 SS-WJWPV-CCG [address] [place] Work Phone: Chloride [Moles/Vol] 104 mmol/L 98 - 107 PX-EKOOF-RRB [address] [place] Work Phone: CO2 [Moles/Vol] 21 mmol/L 21 - 32 MG-OBGYN- MAC [address] [place] Work Phone: Creatinine [Mass/Vol] 0.69 mg/dL See Below KO-KDBEM-CLY [address] [place] Work Phone: Comment on above: Reference Range: 0.5 0 - 1.05 Glucose [Mass/Vol] 83 mg/dL 74 - 99 GL-ZTWND-UYR [address] [place] Work Phone: Comment on above: SOURCE: Potassium [Moles/Vol] 4.1 mmol/L 3.5 - 5.3 XN-GHFIL-MJE [address] [place] Work Phone: Protein [Mass/Vol] 6.2 g/dL below low threshold 6.4 - 8.2 JQ-ZFPDO-ATY [address] [place] Work Phone: Sodium [Moles/Vol] 136 mmol/L 136 - 145 XB-GSQQO-RII [address] [place] Work Phone: Urea nitrogen [Mass/Vol] 9 mg/dL 6 - 23 EN-UZYMW-UCO [address] [place] Work Phone: Otheron 12-25-2019 Albumin BCP dye [Mass/Vol] 3.9 g/dL 3.4 - 5.0 AZ-QSVCI-DLR [address] [place] Work Phone: ALT With P-5'-P [Catalytic activity/Vol] 8 U/L 7 - 45 PW-LXEZK-PQB [address] [place] Work Phone: Comment on above: Patients treated wit h Sulfasalazine may generate falsely decreased results for ALT. AST With P-5'-P [Catalytic activity/Vol] 11 U/L 9 - 39 JO-URAXL-VFX [address] [place] Work Phone: NONE SS-DZSQN-ADY [address] [place] Work Phone: >60 >60 QJ-NZPFC-DVF [address] [place] Work Phone: Comment on above: CALCULATIONS OF MARÍA MATED GFR ARE PERFORMED USING THE MDRD STUDY EQUATION FOR THE IDMS-TRACEABLE CREATININE METHODS. CLIN CHEM 2007;53:766-72 SYPHILIS SCREENING WITH REFL EXon 12-25-2019 T. pallidum IgG+IgM IA Ql (S) NONREACTIVE See Below LP-KDOIM-CXQ [address] [place] Work Phone: Comment on above: SOURCE: Reference Ra nge: NONREACTIVENo significant level of Treponema pallidum antibody detected. Repeat testing in 2 to 4 weeks may be considered if early infection or incubating syphilis infection is suspected. CBC AND DIFFERENTIALon 11-21 % AUTOMATED IMMATURE GRAN 0.9 % Normal 0.0 - 0.9 [facility] Comment on above: Result Comment: Perc ent differential counts (%) should be interpreted in the context of the absolute cell counts (cells/L). Performed By: #### C BCDF #### [address] [place] [address] Basophils (Bld) [#/Vol] 0.16 10*3/uL High 0.00 - 0.10 [facility] Comment on above: Performed By: #### C BCDF #### [address] [place] [address] Basophils/100 WBC (Bld) 1.2 % Normal 0.0 - 2.0 [facility] Comment on above: Performed By: #### C BCDF #### [address] [place] [address] Eosinophils (Bld) [#/Vol] 0.80 10*3/uL High 0.00 - 0.70 [facility] Comment on above: Performed By: #### C BCDF #### [address] [place] [address] Eosinophils/100 WBC (Bld) 5.8 % Normal 0.0 - 6.0 [facility] Comment on above: Performed By: #### C BCDF #### [address] [place] [address] Erythrocyte distribution width (RBC) [Ratio] 13.6 % Normal 11.5 - 14.5 [facility] Comment on above: Performed By: #### C BCDF #### [address] [place] [address] Hematocrit (Bld) [Volume fraction] 39.4 % Normal 36.0 - 46.0 [facility] Comment on above: Performed By: #### C BCDF #### [address] [place] [address] Hemoglobin (Bld) [Mass/Vol] 13.0 g/dL Normal 12.0 - 16.0 [facility] Comment on above: Performed By: #### C BCDF #### [address] [place] [address] Lymphocytes (Bld) [#/Vol] 2.24 10*3/uL Normal 1.20 - 4.80 [facility] Comment on above: Performed By: #### C BCDF #### [address] [place] [address] Lymphocytes/100 WBC (Bld) 16.3 % Normal 13.0 - 44.0 [facility] Comment on above: Performed By: #### C BCDF #### [address] [place] [address] MCHC (RBC) [Mass/Vol] 33.0 g/dL Normal 32.0 - 36.0 [facility] Comment on above: Performed By: #### C BCDF #### [address] [place] [address] MCV (RBC) [Entitic vol] 94 fL Normal 80 - 100 [facility] Comment on above: Performed By: #### C BCDF #### [address] [place] [address] Monocytes (Bld) [#/Vol] 0.83 10*3/uL Normal 0.10 - 1.00 [facility] Comment on above: Performed By: #### C BCDF #### [address] [place] [address] Monocytes/100 WBC (Bld) 6.0 % Normal 2.0 - 10.0 [facility] Comment on above: Performed By: #### C BCDF #### [address] [place] [address] Neutrophils (Bld) [#/Vol] 9.60 10*3/uL High 1.20 - 7.70 [facility] Comment on above: Performed By: #### C BCDF #### [address] [place] [address] Neutrophils/100 WBC (Bld) 69.8 % Normal 40.0 - 80.0 [facility] Comment on above: Performed By: #### C BCDF #### [address] [place] [address] Platelets (Bld) [#/Vol] 380 10*3/uL Normal 150 - 450 [facility] Comment on above: Performed By: #### C BCDF #### [address] [place] [address] RBC (Bld) [#/Vol] 4.21 x10E12/L Normal 4.00 - 5.20 [facility] Comment on above: Performed By: #### C BCDF #### [address] [place] [address] WBC (Bld) [#/Vol] 13.8 10*3/uL High 4.4 - 11.3 [facility] Comment on above: Performed By: #### C BCDF #### [address] [place] [address] Complete Blood Count + Diffe rentialon 12-31-2019 Basophils (Bld) [#/Vol] 0.05 {x10E9/L} See Below MP-Reproductiv e Endocrinology- [place] Work Phone: Comment on above: Reference Range: 0.0 0 - 0.10 Basophils/100 WBC (Bld) 0.4 % 0.0 - 2.0 MP-Reproductiv e Endocrinology- [place] Work Phone: Eosinophils (Bld) [#/Vol] 0.89 {x10E9/L} above high threshold See Below MP-Reproductiv e Endocrinology- [place] Work Phone: Comment on above: Reference Range: 0.0 0 - 0.70 Eosinophils/100 WBC (Bld) 7.3 % 0.0 - 6.0 MP-Reproductiv e Endocrinology- [place] Work Phone: Erythrocyte distribution width (RBC) [Ratio] 13.9 % See Below -Reproductiv e Endocrinology- [place] Work Phone: Comment on above: Reference Range: 11. 5 - 14.5 Hematocrit (Bld) [Volume fraction] 39.4 % See Below -Reproductiv e Endocrinology- [place] Work Phone: Comment on above: Reference Range: 36. 0 - 46.0 Hemoglobin (Bld) [Mass/Vol] 12.8 g/dL See Below -Reproductiv e Endocrinology- [place] Work Phone: Comment on above: Reference Range: 12. 0 - 16.0 Lymphocytes (Bld) [#/Vol] 2.13 {x10E9/L} See Below -Reproductiv e Endocrinology- [place] Work Phone: Comment on above: Reference Range: 1.2 0 - 4.80 Lymphocytes/100 WBC (Bld) 17.5 % See Below MP-Reproductiv e Endocrinology- [place] Work Phone: Comment on above: Reference Range: 13. 0 - 44.0 MCHC (RBC) [Mass/Vol] 32.5 g/dL See Below MP-Reproductiv e Endocrinology- [place] Work Phone: Comment on above: Reference Range: 32. 0 - 36.0 MCV (RBC) [Entitic vol] 95 fL 80 - 100 MP-Reproductiv e Endocrinology- [place] Work Phone: Monocytes (Bld) [#/Vol] 0.60 {x10E9/L} [...] threshold 4.4 - 11.3 MP-Reproductiv e Endocrinology- [place] Work Phone: WBC (Bld) [#/Vol] 0.0 {/100_WBC} 0.0-0.0 MP- Reproductiv e Endocrinology- [place] Work Phone: Complete Blood Count + Differential 0.5 % 0.0 - 0.9 MP-Reproductiv e Endocrinology- [place] Work Phone: Comment on above: Percent differential counts (%) should be interpreted in the context of the absolute cell counts (cells/L). Complete Blood Count + Differential 8.42 {x10E9/L} above high threshold See Below MP-Reproductiv e Endocrinology- [place] Work Phone: Comment on above: Reference Range: 1.2 0 - 7.70 Metabolic Panelon 11-14-2019 ALP [Catalytic activity/Vol] 82 U/L 33 - 110 MP-Reproductiv e Endocrinology- [place] Work Phone: Anion gap [Moles/Vol] 19 mmol/L 10 - 20 MP-Reproductiv e Endocrinology- [place] Work Phone: Bilirubin [Mass/Vol] 0.4 mg/dL 0.0 - 1.2 MP-Reproductiv e Endocrinology- [place] Work Phone: Calcium [Mass/Vol] 9.5 mg/dL 8.6 - 10.6 MP-Reproductiv e Endocrinology- [place] Work Phone: Chloride [Moles/Vol] 100 mmol/L 98 [...] mmol/L 3.5 - 5.3 MP-Reproductiv e Endocrinology- [place] Work Phone: Protein [Mass/Vol] 5.8 g/dL below low threshold 6.4 - 8.2 MP-Reproductiv e [facility]- [place] Work Phone: Sodium [Moles/Vol] 135 mmol/L below low threshold 136 - 145 MP-Reproductiv e [facility]- [place] Work Phone: Urea nitrogen [Mass/Vol] 10 mg/dL 6 - 23 MP-Reproductiv e [facility] Work Phone: Otheron 11-14-2019 Albumin BCP dye [Mass/Vol] 3.5 g/dL 3.4 - 5.0 MP-Reproductiv [facility] Work Phone: ALT With P-5'-P [Catalytic activity/Vol] 17 U/L 7 - 45 MP-Reproductiv [facility] Work Phone: Comment on above: Patients treated wit h Sulfasalazine may generate falsely decreased results for ALT. AST With P-5'-P [Catalytic activity/Vol] 22 U/L 9 - 39 MP-Reproductiv [facility] Work Phone: >60 >60 -ReproducTwo [facility] Work Phone: Comment on above: CALCULATIONS OF MARÍA MATED GFR ARE PERFORMED USING THE MDRD STUDY EQUATION FOR THE IDMS-TRACEABLE CREATININE METHODS. CLIN CHEM 2007;53:766-72 CBCon 11-09-2019 Erythrocyte distribution width (RBC) [Ratio] 13.7 % See Below DR-RVYGB-Rgdrj n 310 IVF Work Phone: Comment on above: Performed By: #### L H #### [facility] [address] [place] [address] Reference Range: 11. 5 - 14.5 Hematocrit (Bld) [Volume fraction] 41.9 % See Below RU-ISHRE-Ntxgm n 310 IVF Work Phone: Comment on above: Performed By: #### L H #### [facility] [address] [place] [address] Reference Range: 36. 0 - 46.0 Hemoglobin (Bld) [Mass/Vol] 14.0 g/dL See Below UV-RUTVB-Dyzlm n 310 IVF Work Phone: Comment on above: Performed By: #### L H #### [facility] [address] [place] [address] Reference Range: 12. 0 - 16.0 MCHC (RBC) [Mass/Vol] 33.4 g/dL See Below JJ-CSFXN-Stqns n 310 IVF Work Phone: Comment on above: Performed By: #### L H #### [facility] [address] [place] [address] Reference Range: 32. 0 - 36.0 MCV (RBC) [Entitic vol] 94 fL 80 - 100 DP-AFSMQ-Zaxgx n 310 IVF Work Phone: Comment on above: Performed By: #### L H #### [facility] [address] [place] [id number] Platelets (Bld) [#/Vol] 411 10*3/uL Normal 150 - 450 [facility] Comment on above: Performed By: #### L H #### [facility] [address] [place] [address] RBC (Bld) [#/Vol] 4.44 x10E12/L Normal 4.00 - 5.20 [facility] Comment on above: Performed By: #### L H #### [facility] [address] [place] [id number] WBC (Bld) [#/Vol] 12.4 10*3/uL High 4.4 - 11.3 [facility] Comment on above: Performed By: #### L H #### [facility] [address] [place] [id number] COMPREHENSIVE PANELon 2018 Albumin [Mass/Vol] 3.8 g/dL Normal 3.4 - 5.0 [facility] Comment on above: Performed By: #### L H #### [facility] [address] [place] [id number] ALP [Catalytic activity/Vol] 51 U/L 33 - 110 DF-DXUWC-Knszx n 310 IVF Work Phone: Comment on above: Performed By: #### L H #### [facility] [address] [place] [address] ALT [Catalytic activity/Vol] 12 U/L Normal 7 - 45 [facility] Comment on above: Result Comment: Melida ents treated with Sulfasalazine may generate falsely decreased results for ALT. Performed By: #### L H #### [facility] [address] [place] [address] Anion gap [Moles/Vol] 13 mmol/L 10 - 20 AW-UGZPT-Eryxy n 310 IVF Work Phone: Comment on above: Performed By: #### L H #### [facility] [address] [place] [address] AST [Catalytic activity/Vol] 12 U/L Normal 9 - 39 [facility] Comment on above: Performed By: #### L H #### [facility] [address] [place] [address] Bilirubin [Mass/Vol] 0.4 mg/dL 0.0 - 1.2 BN-PJGPX-Jtkvw n 310 IVF Work Phone: Comment on above: Performed By: #### L H #### [facility] [address] [place] [address] Calcium [Mass/Vol] 9.3 mg/dL 8.6 - 10.3 HE-TKXUP-Gyltq n 310 IVF Work Phone: Comment on above: Performed By: #### L H #### [facility] [address] [place] [address] Chloride [Moles/Vol] 102 mmol/L 98 - 107 WT-WRMJV-Btkjh n 310 IVF Work Phone: Comment on above: Performed By: #### L H #### [facility] [address] [place] [address] Creatinine [Mass/Vol] 0.89 mg/dL See Below HC-VTOWW-Masls n 310 IVF Work Phone: Comment on above: Performed By: #### L H #### [facility] [address] [place] [id number] Reference Range: 0.5 0 - 1.05 GFR- AM. >60 Normal >60 [facility] Comment on above: Result Comment: CALC ULATIONS OF ESTIMATED GFR ARE PERFORMED USING THE MDRD STUDY EQUATION FOR THE IDMS-TRACEABLE CREATININE METHODS. CLIN CHEM 2007;53:766-72 Performed By: #### L H #### [facility] [address] [place] [id number] GFR-NON AM. >60 Normal >60 [facility] Comment on above: Performed By: #### L H #### [facility] [address] [place] [id number] Glucose [Mass/Vol] 74 mg/dL 74 - 99 FQ-KVKYP-Lhgek n 310 IVF Work Phone: Comment on above: Performed By: #### L H #### [facility] [address] [place] [id number] HCO3 (Bld) [Moles/Vol] 25 mmol/L Normal 21 - 32 [facility] Comment on above: Performed By: #### L H #### [facility] [address] [place] [id number] Potassium [Moles/Vol] 4.1 mmol/L 3.5 - 5.3 FO-CIOSQ-Upvhx n 310 IVF Work Phone: Comment on above: Performed By: #### L H #### [facility] [address] [place] [id number] Protein [Mass/Vol] 6.0 g/dL below low threshold 6.4 - 8.2 FU-VRTGK-Slifs n 310 IVF Work Phone: Comment on above: Performed By: #### L H #### [facility] [address] [place] [id number] Sodium [Moles/Vol] 136 mmol/L 136 - 145 NJ-WMZFM-Hwtmt n 310 IVF Work Phone: Comment on above: Performed By: #### L H #### [facility] [address] [place] [address] Urea nitrogen [Mass/Vol] 11 mg/dL 6 - 23 IY-EWWGM-Pzwkh n 310 IVF Work Phone: Comment on above: Performed By: #### L H #### [facility] [address] [place] [address] HCG, Beta Quantitativeon HCG.beta subunit Qn 7102 {mIU/mL} Abnormal FF-IVURY-Npouf n 310 IVF Work Phone: Comment on [...] performed using a different test methodology at [facility] than other [facility]. Direct result comparison should only be made within the same method. REF VALUESNON FEMALE <5MALES <5 HCG,BETA-QUANTITATIVEon 12- HCG,BETA-QUANTITA TIVE 7102 mIU/mL [facility] Comment on above: Result Comment: Low- [...] HCG measurement is performed using the [employer] Access Immunoassay which detects intact HCG and free beta HCG subunit. This test is not indicated for use as a tumor marker. HCG testing is performed using a different test methodology at [facility] than other [facility]. Direct result comparison should only be made within the same method. REF VALUES NON FEMALE <5 MALES <5 Performed By: #### L H #### [facility] [address] [place] [address] Hematologyon 11-09-2019 Platelets (Bld) [#/Vol] 411 {x10E9/L} 150 - 450 YW-URZOY-Jcirt n 310 IVF Work Phone: RBC (Bld) [#/Vol] 4.44 {x10E12/L} See Below MG -OBGYN-Risma n 310 IVF Work Phone: Comment on above: Reference Range: 4.0 0 - 5.20 WBC (Bld) [#/Vol] 12.4 {x10E9/L} above high threshold 4.4 - 11.3 AR-HSKAV-Djmjg n 310 IVF Work Phone: Metabolic Panelon 11-09-2019 CO2 [Moles/Vol] 25 mmol/L 21 - 32 MG-OBGYN- Risma n 310 IVF Work Phone: Otheron 11-09-2019 Albumin BCP dye [Mass/Vol] 3.8 g/dL 3.4 - 5.0 KK-DCOKV-Ibvve n 310 IVF Work Phone: ALT With P-5'-P [Catalytic activity/Vol] 12 U/L 7 - 45 RD-VISCX-Bprpl n 310 IVF Work Phone: Comment on above: Patients treated wit h Sulfasalazine may generate falsely decreased results for ALT. AST With P-5'-P [Catalytic activity/Vol] 12 U/L 9 - 39 DM-NUICG-Qbaff n 310 IVF Work Phone: >60 >60 AS-HMGOD-Xrcad n 310 IVF Work Phone: Comment on [...] HCG measurement is performed using the [employer] Access Immunoassay which detects intact HCG and free beta HCG subunit. This test is not indicated for use as a tumor marker. HCG testing is performed using a different test methodology at [facility] than other [facility]. Direct result comparison should only be made within the same method. REF VALUESNON FEMALE <5MALES <5 HCG,BETA-QUANTITATIVEon 10-15 HCG,BETA-QUANTITA TIVE 240 mIU/mL [facility] Comment on above: Result Comment: Low- [...] performed using a different test methodology at [facility] than other [facility]. Direct result comparison should only be made within the same method. REF VALUES NON FEMALE <5 MALES <5 Performed By: #### E STRA #### [facility] [address] [place] [address] ESTRADIOLon 10-14-2019 ESTRADIOL 1871 pg/mL Normal [facility] Comment on above: Result Comment: Estr adiol measurement is performed using the [employer] Access Immunoassay. Estradiol testing is performed using a different test methodology at [facility] than other [facility]. Direct result comparison should only be made within the same method. REF VALUES FOLLICULAR PHASE 20-144 MID CYCLE 64-357 LUTEAL PHASE 56-214 POSTMENOPAUSE < 32 PREPUBERTY < 20 MALE 10-18Y < 20 ADULT MALE < 40 Performed By: #### E STRA #### [facility] [address] [place] [address] Estradiol, Serumon 9 E2 [Mass/Vol] 1871 pg/mL MG-OBGYN-Ri sma n 310 IVF Work Phone: Comment on above: Estradiol measuremen t is performed using the [employer] Access Immunoassay. Estradiol testing is performed using a different test methodology at [facility] than other [facility]. Direct result comparison should only be made within the same method.REF VALUESFOLLICULAR PHASE 20-144MID CYCLE 64-357LUTEAL PHASE 56-214POSTMENOPAUSE < 32PREPUBERTY < 20MALE 10-18Y < 20ADULT MALE < 40 PROGESTERONEon 10-14-2019 PROGESTERONE 1.0 ng/mL Normal [facility] Comment on above: Result Comment: Prog esterone is performed using the [employer] Access Immunoassay. Progesterone testing is performed using a different test methodology at [facility] than other [facility]. Direct result comparison should only be made within the same method. REF VALUES MALE <0.2-0.8 FOLLICULAR PHASE <0.2-1.5 LUTEAL PHASE 7.4-15.4 POSTMENOPAUSAL <0.2-0.2 1ST TRIMESTER 12.0-84.0 2ND TRIMESTER 10.2-58.8 3RD TRIMESTER 46.5-160 Performed By: #### E BARBARA #### [facility] [address] [place] [address] Progesterone, Serumon 2018 Progesterone [Mass/Vol] 1.0 ng/mL LD-YGOAN-Kasei n 310 IVF Work Phone: Comment on above: Progesterone is perf ormed using the [employer] Access Immunoassay. Progesterone testing is performed using a different test methodology at [facility] than other [facility]. Direct result comparison should only be made within the same method.REF VALUESMALE <0.2-0.8 FOLLICULAR PHASE <0.2-1.5 LUTEAL PHASE 7.4-15.4 POSTMENOPAUSAL <0.2-0.2 1ST TRIMESTER 12.0-84.0 2ND TRIMESTER 10.2-58.8 3RD TRIMESTER 46.5-160 ESTRADIOLon 10-11-2019 ESTRADIOL 284 pg/mL Normal [facility] Comment on above: Result Comment: Estr adiol measurement is performed using the [employer] Access Immunoassay. Estradiol testing is performed using a different test methodology at [facility] than other [facility]. Direct result comparison should only be made within the same method. REF VALUES FOLLICULAR PHASE 20-144 MID CYCLE 64-357 LUTEAL PHASE 56-214 POSTMENOPAUSE < 32 PREPUBERTY < 20 MALE 10-18Y < 20 ADULT MALE < 40 Performed By: #### E STRA #### [facility] [address] [place] [address] Estradiol, Serumon 9 E2 [Mass/Vol] 284 pg/mL MG-OBGYN-Ri sma n 310 IVF Work Phone: Comment on above: Estradiol measuremen t is performed using the [employer] Access Immunoassay. Estradiol testing is performed using a different test methodology at [facility] than other [facility]. Direct result comparison should only be made within the same method.REF VALUESFOLLICULAR PHASE 20-144MID CYCLE 64-357LUTEAL PHASE 56-214POSTMENOPAUSE < 32PREPUBERTY < 20MALE 10-18Y < 20ADULT MALE < 40 ESTRADIOLon 2019 ESTRADIOL 129 pg/mL Normal [facility] Comment on above: Result Comment: Estr adiol measurement is performed using the [employer] Access Immunoassay. Estradiol testing is performed using a different test methodology at [facility] than other [facility]. Direct result comparison should only be made within the same method. REF VALUES FOLLICULAR PHASE 20-144 MID CYCLE 64-357 LUTEAL PHASE 56-214 POSTMENOPAUSE < 32 PREPUBERTY < 20 MALE 10-18Y < 20 ADULT MALE < 40 Performed By: #### E STRA #### [facility] [address] [place] [address] Estradiol, Serumon 9 E2 [Mass/Vol] 129 pg/mL MG-OBGYN-Ri sma n 310 IVF Work Phone: Comment on above: Estradiol measuremen t is performed using the [employer] Access Immunoassay. Estradiol testing is performed using a different test methodology at [facility] than other [facility]. Direct result comparison should only be made within the same method.REF VALUESFOLLICULAR PHASE 20-144MID CYCLE 64-357LUTEAL PHASE 56-214POSTMENOPAUSE < 32PREPUBERTY < 20MALE 10-18Y < 20ADULT MALE < 40 PROGESTERONEon 10-05-2019 PROGESTERONE 0.2 ng/mL Normal [facility] Comment on above: Result Comment: Prog esterone is performed using the [employer] Access Immunoassay. Progesterone testing is performed using a different test methodology at [facility] than other [facility]. Direct result comparison should only be made within the same method. REF VALUES MALE <0.2-0.8 FOLLICULAR PHASE <0.2-1.5 LUTEAL PHASE 7.4-15.4 POSTMENOPAUSAL <0.2-0.2 1ST TRIMESTER 12.0-84.0 2ND TRIMESTER 10.2-58.8 3RD TRIMESTER 46.5-160 Performed By: #### E STRA #### [facility] [address] [place] [address] Progesterone, Serumon 2018 Progesterone [Mass/Vol] 0.2 ng/mL CG-SWZPV-Folih n 310 IVF Work Phone: Comment on above: Progesterone is perf ormed using the [employer] Access Immunoassay. Progesterone testing is performed using a different test methodology at [facility] than other [facility]. Direct result comparison should only be made within the same method.REF VALUESMALE <0.2-0.8 FOLLICULAR PHASE <0.2-1.5 LUTEAL PHASE 7.4-15.4 POSTMENOPAUSAL <0.2-0.2 1ST TRIMESTER 12.0-84.0 2ND TRIMESTER 10.2-58.8 3RD TRIMESTER 46.5-160 ESTRADIOLon 10-02-2019 ESTRADIOL 357 pg/mL Normal [facility] Comment on above: Result Comment: Estr adiol measurement is performed using the [employer] Access Immunoassay. Estradiol testing is performed using a different test methodology at [facility] than other [facility]. Direct result comparison should only be made within the same method. REF VALUES FOLLICULAR PHASE 20-144 MID CYCLE 64-357 LUTEAL PHASE 56-214 POSTMENOPAUSE < 32 PREPUBERTY < 20 MALE 10-18Y < 20 ADULT MALE < 40 Performed By: #### E STRA #### [facility] [address] [place] [address] Estradiol, Serumon 9 E2 [Mass/Vol] 357 pg/mL MG-OBGYN-Cr ock er 206A IVF Work Phone: Comment on above: Estradiol measuremen t is performed using the [employer] Access Immunoassay. Estradiol testing is performed using a different test methodology at [facility] than other [facility]. Direct result comparison should only be made within the same method.REF VALUESFOLLICULAR PHASE 20-144MID CYCLE 64-357LUTEAL PHASE 56-214POSTMENOPAUSE < 32PREPUBERTY < 20MALE 10-18Y < 20ADULT MALE < 40 LUTEINIZING HORMONEon 2018 LUTEINIZING HORMONE 14.7 IU/L Normal [facility] Comment on above: Result Comment: Lute inizing Hormone [LH] is performed using the [employer] Access Immunoassay. LH testing is performed using a different test methodology at [facility] than [facility]. Direct result comparison should only be made within the same method. REF VALUES FOLLICULAR PHASE 1.5-10.0 MID-CYCLE 13.0-72.0 LUTEAL PHASE 0.5-13.0 MENOPAUSE 15.0-65.0 PREPUBERTY 0- 3.0 CHILDREN 0- 6.0 ADULT MALE 1.0- 9.0 Performed By: #### E STRA #### [facility] [address] [place] [address] Luteinizing Hormone, Serumon 10-02-2019 Lutropin Qn 14.7 {IU/L} HE-BDNDH-Nvg ck er 206A IVF Work Phone: Comment on above: Luteinizing Hormone [LH] is performed using the [employer] Access Immunoassay. LH testing is performed using a different test methodology at [facility] than [facility]. Direct result comparison should only be made within the same method.REF VALUESFOLLICULAR PHASE 1.5-10.0MID-CYCLE 13.0-72.0LUTEAL PHASE 0.5-13.0MENOPAUSE 15.0-65.0PREPUBERTY 0- 3.0CHILDREN 0- 6.0ADULT MALE 1.0- 9.0 PROGESTERONEon 10-02-2019 PROGESTERONE 0.1 ng/mL Normal [facility] Comment on above: Result Comment: Prog esterone is performed using the [employer] Access Immunoassay. Progesterone testing is performed using a different test methodology at [facility] than other [facility]. Direct result comparison should only be made within the same method. REF VALUES MALE <0.2-0.8 FOLLICULAR PHASE <0.2-1.5 LUTEAL PHASE 7.4-15.4 POSTMENOPAUSAL <0.2-0.2 1ST TRIMESTER 12.0-84.0 2ND TRIMESTER 10.2-58.8 3RD TRIMESTER 46.5-160 Performed By: #### E STRA #### [facility] [address] [place] [address] Progesterone, Serumon 2018 Progesterone [Mass/Vol] 0.1 ng/mL ZA-WFVFC-Tmhuw er 206A IVF Work Phone: Comment on above: Progesterone is perf ormed using the [employer] Access Immunoassay. Progesterone testing is performed using a different test methodology at [facility] than other [facility]. Direct result comparison should only be made within the same method.REF VALUESMALE <0.2-0.8 FOLLICULAR PHASE <0.2-1.5 LUTEAL PHASE 7.4-15.4 POSTMENOPAUSAL <0.2-0.2 1ST TRIMESTER 12.0-84.0 2ND TRIMESTER 10.2-58.8 3RD TRIMESTER 46.5-160 HCG,BETA-QUANTITATIVEon 07-17 HCG,BETA-QUANTITA TIVE 10 mIU/mL [facility] Comment on above: Result Comment: Low- [...] HCG measurement is performed using the [employer] Access Immunoassay which detects intact HCG and free beta HCG subunit. This test is not indicated for use as a tumor marker. HCG testing is performed using a different test methodology at [facility] than other [facility]. Direct result comparison should only be made within the same method. REF VALUES NON FEMALE <5 MALES <5 Performed By: #### L H #### [facility] [address] [place] [address] LUTEINIZING HORMONEon 2018 LUTEINIZING HORMONE 57.0 IU/L Normal [facility] Comment on above: Result Comment: Lute inizing Hormone [LH] is performed using the [employer] Access Immunoassay. LH testing is performed using a different test methodology at [facility] than other [facility]. Direct result comparison should only be made within the same method. REF VALUES FOLLICULAR PHASE 1.5-10.0 MID-CYCLE 13.0-72.0 LUTEAL PHASE 0.5-13.0 MENOPAUSE 15.0-65.0 PREPUBERTY 0- 3.0 CHILDREN 0- 6.0 ADULT MALE 1.0- 9.0 Performed By: #### E STRA #### [facility] [address] [place] [address] PROGESTERONEon 08-13-2019 PROGESTERONE 6.7 ng/mL Normal [facility] Comment on above: Result Comment: Prog esterone is performed using the [employer] Access Immunoassay. Progesterone testing is performed using a different test methodology at [facility] than other [facility]. Direct result comparison should only be made within the same method. REF VALUES MALE <0.2-0.8 FOLLICULAR PHASE <0.2-1.5 LUTEAL PHASE 7.4-15.4 POSTMENOPAUSAL <0.2-0.2 1ST TRIMESTER 12.0-84.0 2ND TRIMESTER 10.2-58.8 3RD TRIMESTER 46.5-160 Performed By: #### L H #### [facility] [address] [place] [address] ESTRADIOLon 08-12-2019 ESTRADIOL 1380 pg/mL Normal [facility] Comment on above: Result Comment: Estr adiol measurement is performed using the [employer] Access Immunoassay. Estradiol testing is performed using a different test methodology at [facility] than other [facility]. Direct result comparison should only be made within the same method. REF VALUES FOLLICULAR PHASE 20-144 MID CYCLE 64-357 LUTEAL PHASE 56-214 POSTMENOPAUSE < 32 PREPUBERTY < 20 MALE 10-18Y < 20 ADULT MALE < 40 Performed By: #### L H #### [facility] [address] [place] [address] PROGESTERONEon 08-12-2019 PROGESTERONE 1.7 ng/mL Normal [facility] Comment on above: Result Comment: Prog esterone is performed using the [employer] Access Immunoassay. Progesterone testing is performed using a different test methodology at [facility] than other [facility]. Direct result comparison should only be made within the same method. REF VALUES MALE <0.2-0.8 FOLLICULAR PHASE <0.2-1.5 LUTEAL PHASE 7.4-15.4 POSTMENOPAUSAL <0.2-0.2 1ST TRIMESTER 12.0-84.0 2ND TRIMESTER 10.2-58.8 3RD TRIMESTER 46.5-160 Performed By: #### L H #### [facility] [address] [place] [address] ESTRADIOLon 08-11-2019 ESTRADIOL 874 pg/mL Normal [facility] Comment on above: Result Comment: Estr adiol measurement is performed using the [employer] Access Immunoassay. Estradiol testing is performed using a different test methodology at [facility] than other [facility]. Direct result comparison should only be made within the same method. REF VALUES FOLLICULAR PHASE 20-144 MID CYCLE 64-357 LUTEAL PHASE 56-214 POSTMENOPAUSE < 32 PREPUBERTY < 20 MALE 10-18Y < 20 ADULT MALE < 40 Performed By: #### L H #### [facility] [address] [place] [address] PROGESTERONEon 08-11-2019 PROGESTERONE 1.2 ng/mL Normal [facility] Comment on above: Result Comment: Prog esterone is performed using the [employer] Access Immunoassay. Progesterone testing is performed using a different test methodology at [facility] than other [facility]. Direct result comparison should only be made within the same method. REF VALUES MALE <0.2-0.8 FOLLICULAR PHASE <0.2-1.5 LUTEAL PHASE 7.4-15.4 POSTMENOPAUSAL <0.2-0.2 1ST TRIMESTER 12.0-84.0 2ND TRIMESTER 10.2-58.8 3RD TRIMESTER 46.5-160 Performed By: #### L H #### [facility] [address] [place] [address] ESTRADIOLon 08-09-2019 ESTRADIOL 385 pg/mL Normal [facility] Comment on above: Result Comment: Estr adiol measurement is performed using the [employer] Access Immunoassay. Estradiol testing is performed using a different test methodology at [facility] than other [facility]. Direct result comparison should only be made within the same method. REF VALUES FOLLICULAR PHASE 20-144 MID CYCLE 64-357 LUTEAL PHASE 56-214 POSTMENOPAUSE < 32 PREPUBERTY < 20 MALE 10-18Y < 20 ADULT MALE < 40 Performed By: #### L H #### [facility] [address] [place] [address] ESTRADIOLon 08-07-2019 ESTRADIOL 80 pg/mL Normal [facility] Comment on above: Result Comment: Estr adiol measurement is performed using the [employer] Access Immunoassay. Estradiol testing is performed using a different test methodology at [facility] than other [facility]. Direct result comparison should only be made within the same method. REF VALUES FOLLICULAR PHASE 20-144 MID CYCLE 64-357 LUTEAL PHASE 56-214 POSTMENOPAUSE < 32 PREPUBERTY < 20 MALE 10-18Y < 20 ADULT MALE < 40 Performed By: #### L H #### [facility] [address] [place] [address] ESTRADIOLon 08-04-2019 ESTRADIOL 58 pg/mL Normal [facility] Comment on above: Result Comment: Estr adiol measurement is performed using the [employer] Access Immunoassay. Estradiol testing is performed using a different test methodology at [facility] than [facility]. Direct result comparison should only be made within the same method. REF VALUES FOLLICULAR PHASE 20-144 MID CYCLE 64-357 LUTEAL PHASE 56-214 POSTMENOPAUSE < 32 PREPUBERTY < 20 MALE 10-18Y < 20 ADULT MALE < 40 Performed By: #### L H #### [facility] [address] [place] [address] ESTRADIOLon 07-07-2019 ESTRADIOL 110 pg/mL Normal [facility] Comment on above: Result Comment: Estr adiol measurement is performed using the [employer] Access Immunoassay. Estradiol testing is performed using a different test methodology at [facility] [facility] other [facility]. Direct result comparison should only be made within the same method. REF VALUES FOLLICULAR PHASE 20-144 MID CYCLE 64-357 LUTEAL PHASE 56-214 POSTMENOPAUSE < 32 PREPUBERTY < 20 MALE 10-18Y < 20 ADULT MALE < 40 Performed By: #### L H #### [facility] [address] [place] [address] NR MRI SELLA WO/Won 05-31-20 19 NR MRI SELLA WO/W Patient Name: KIARA ASHLEY STUDY: NR MRI SELLA WO/W; 05/31/2019 2:00 pm INDICATION: History of 7 mm microadenoma 2008. COMPARISON: None. ACCESSION NUMBER(S): [id number] ORDERING CLINICIAN: SHAHLA HEALY TECHNIQUE: High resolution [...] Electronically signed by: IRENE BLAKE PHYSICIAN Normal [facility] ESTRADIOLon 05-05-2019 ESTRADIOL 217 pg/mL Normal [facility] Comment on above: Result Comment: Estr adiol measurement is performed using the [employer] Access Immunoassay. Estradiol testing is performed using a different test methodology at [facility] than other [facility]. Direct result comparison should only be made within the same method. REF VALUES FOLLICULAR PHASE 20-144 MID CYCLE 64-357 LUTEAL PHASE 56-214 POSTMENOPAUSE < 32 PREPUBERTY < 20 MALE 10-18Y < 20 ADULT MALE < 40 Performed By: #### E STRA #### [facility] [address] [place] [address] LUTEINIZING HORMONEon 2018 LUTEINIZING HORMONE 4.4 IU/L Normal [facility] Comment on above: Result Comment: Lute inizing Hormone [LH] is performed using the [employer] Ryan Access Immunoassay. LH testing is performed using a different test methodology at [facility] than other [facility]. Direct result comparison should only be made within the same method. REF VALUES FOLLICULAR PHASE 1.5-10.0 MID-CYCLE 13.0-72.0 LUTEAL PHASE 0.5-13.0 MENOPAUSE 15.0-65.0 PREPUBERTY 0- 3.0 CHILDREN 0- 6.0 ADULT MALE 1.0- 9.0 Performed By: #### L H #### [facility] [address] [place] [address] ESTRADIOLon 04-11-2019 ESTRADIOL 118 pg/mL Normal [facility] Comment on above: Result Comment: Estr adiol measurement is performed using the [employer] Access Immunoassay. Estradiol testing is performed using a different test methodology at [facility] than other [facility]. Direct result comparison should only be made within the same method. REF VALUES FOLLICULAR PHASE 20-144 MID CYCLE 64-357 LUTEAL PHASE 56-214 POSTMENOPAUSE < 32 PREPUBERTY < 20 MALE 10-18Y < 20 ADULT MALE < 40 Performed By: #### E STRA #### [facility] [address] [place] [address] LUTEINIZING HORMONEon 2018 LUTEINIZING HORMONE 7.7 IU/L Normal [facility] Comment on above: Result Comment: Lute inizing Hormone [LH] is performed using the [employer] Access Immunoassay. LH testing is performed using a different test methodology at [facility] than other [facility]. Direct result comparison should only be made within the same method. REF VALUES FOLLICULAR PHASE 1.5-10.0 MID-CYCLE 13.0-72.0 LUTEAL PHASE 0.5-13.0 MENOPAUSE 15.0-65.0 PREPUBERTY 0- 3.0 CHILDREN 0- 6.0 ADULT MALE 1.0- 9.0 Performed By: #### L H #### [facility] [address] [place] [address] PROGESTERONEon 04-11-2019 PROGESTERONE 0.1 ng/mL Normal [facility] Comment on above: Result Comment: Prog esterone is performed using the [employer] Access Immunoassay. Progesterone testing is performed using a different test methodology at [facility] than other [facility]. Direct result comparison should only be made within the same method. REF VALUES MALE <0.2-0.8 FOLLICULAR PHASE <0.2-1.5 LUTEAL PHASE 7.4-15.4 POSTMENOPAUSAL <0.2-0.2 1ST TRIMESTER 12.0-84.0 2ND TRIMESTER 10.2-58.8 3RD TRIMESTER 46.5-160 Performed By: #### P SVEN #### [facility] [address] [place] [address] ESTRADIOLon 03-17-2019 ESTRADIOL 120 pg/mL Normal [facility] Comment on above: Result Comment: Estr adiol measurement is performed using the [employer] Access Immunoassay. Estradiol testing is performed using a different test methodology at [facility] than other [facility]. Direct result comparison should only be made within the same method. REF VALUES FOLLICULAR PHASE 20-144 MID CYCLE 64-357 LUTEAL PHASE 56-214 POSTMENOPAUSE < 32 PREPUBERTY < 20 MALE 10-18Y < 20 ADULT MALE < 40 Performed By: #### E STRA #### [facility] [address] [place] [address] LUTEINIZING HORMONEon 2018 LUTEINIZING HORMONE 6.8 IU/L Normal [facility] Comment on above: Result Comment: Lute inizing Hormone [LH] is performed using the [employer] Access Immunoassay. LH testing is performed using a different test methodology at [facility] than other [facility]. Direct result comparison should only be made within the same method. REF VALUES FOLLICULAR PHASE 1.5-10.0 MID-CYCLE 13.0-72.0 LUTEAL PHASE 0.5-13.0 MENOPAUSE 15.0-65.0 PREPUBERTY 0- 3.0 CHILDREN 0- 6.0 ADULT MALE 1.0- 9.0 Performed By: #### L H #### [facility] [address] [place] [address] ESTRADIOLon 02-20-2019 ESTRADIOL 521 pg/mL Normal [facility] Comment on above: Result Comment: Estr adiol measurement is performed using the [employer] Access Immunoassay. Estradiol testing is performed using a different test methodology at [facility] than other [facility]. Direct result comparison should only be made within the same method. REF VALUES FOLLICULAR PHASE 20-144 MID CYCLE 64-357 LUTEAL PHASE 56-214 POSTMENOPAUSE < 32 PREPUBERTY < 20 MALE 10-18Y < 20 ADULT MALE < 40 Performed By: #### E STRA #### [facility] [address] [place] [address] LUTEINIZING HORMONEon 2018 LUTEINIZING HORMONE 3.5 IU/L Normal [facility] Comment on above: Result Comment: Lute inizing Hormone [LH] is performed using the Jose Ryan Access Immunoassay. LH testing is performed using a different test methodology at [facility] than other [facility]. Direct result comparison should only be made within the same method. REF VALUES FOLLICULAR PHASE 1.5-10.0 MID-CYCLE 13.0-72.0 LUTEAL PHASE 0.5-13.0 MENOPAUSE 15.0-65.0 PREPUBERTY 0- 3.0 CHILDREN 0- 6.0 ADULT MALE 1.0- 9.0 Performed By: #### L H #### [facility] [address] [place] [address] Vital Signs Date Time Vital Sign Value Performing Clinician Modesto golden 12-27-2023 10:57-0500 Body mass index (BMI) [Ratio] 34.84 kg/m2 Bere JOHNSON Work Phone: [facility] 12-27-2023 10:57-0500 Body weight 83.64 kg Bere JOHNSON Work Phone: [facility] 12-27-2023 10:57-0500 Diastolic blood pressure 68 mm[Hg] Bere JOHNSON Work Phone: [facility] 12-27-2023 10:57-0500 Systolic blood pressure 110 mm[Hg] Bere JOHNSON Work Phone: [facility] 02-27-2023 11:35-0400 Body mass index (BMI) [Ratio] 29.26 kg/m2 Evelyn Perez Work Phone: [facility] 02-27-2023 11:35-0400 Body temperature 98.8 [degF] Evelyn Grubererhorn Work Phone: [facility] [employer] 02-27-2023 11:35-0400 Body weight 72.58 kg Evelyn UngerAna Work Phone: [facility] [employer] 02-27-2023 11:35-0400 Diastolic blood pressure 66 mm[Hg] Evelyn Grubererhorn Work Phone: [facility] [employer] 02-27-2023 11:35-0400 Heart rate 88 /min Evelyn Grubererhorn Work Phone: [facility] [employer] 02-27-2023 11:35-0400 Respiratory rate 14 /min Evelyn Grubererhorn Work Phone: [facility] [employer] 02-27-2023 11:35-0400 SaO2% (BldA) [Mass fraction] 100 % Evelyn Calderonrn Work Phone: [facility] [employer] 02-27-2023 11:35-0400 Systolic blood pressure 103 mm[Hg] Evelyn Grubererhorn Work Phone: [facility] [employer] 06-19-2021 14:03-0400 Body height 157.48 cm Evelyn Grubererhorn Work Phone: GR-WZMSF-Hujgby 310 IVF Work Phone: 06-19-2021 14:03-0400 Body mass index (BMI) [Ratio] 29.26 kg/m2 Evelyn Husain Ana Work Phone: KC-GVOHM-Csxczj 310 IVF Work Phone: 06-19-2021 14:03-0400 Body surface area Derived from formula 1.74 m2 Evelyn Husain Ana Work Phone: OY-BPYCP-Whmhta 310 IVF Work Phone: 06-19-2021 14:03-0400 Body weight 72.58 kg Evelyn M Ana Work Phone: SQ-ZPQCZ-Bklvoq 310 IVF Work Phone: 06-19-2021 14:03-0400 1 1 Evelyn M Ana Work Phone: PH-TOXTC-Qtrhdk 310 IVF Work Phone: Comment on above: GRAV PARA 06-19-2021 14:03-0400 0 1 Evelyn M Ana Work Phone: VT-FCPLO-Twznbi 310 IVF Work Phone: Comment on above: [employer] 06-07-2020 10:41-0400 BMI (Body Mass Index) 34.93 kg/m2 King Lappen HF-WJFTD-TSC [address] [place] Work Phone: 06-07-2020 10:41-0400 Body weight 86.64 kg King Lappen RO-HSFVD-BBZ 120 0 [place] Work Phone: 06-07-2020 10:41-0400 BP Diastolic 76 mm[Hg] King Lappen TG-KNCPT-AOL 120 0 [place] Work Phone: 06-07-2020 10:41-0400 BP Systolic 111 mm[Hg] King Lappen VQ-ZQFBF-UOB 120 0 [place] Work Phone: 06-07-2020 10:41-0400 BSA (Body Surface Area) 1.[address]appen PL-GSQUH-DJA [address] [place] Work Phone: 06-07-2020 10:41-0400 Pulse (Heart Rate) 101 /min King Lappen AN-GZOBY-RPP 1200 [place] Work Phone: 06-07-2020 10:41-0400 0 1 King Lappen EI-GPRAV-QUI 120 0 [place] Work Phone: Comment on above: [employer] 12-25-2019 10:58-0500 BMI (Body Mass Index) 30.18 kg/m2 King Lappen HW-RQISY-JNF [address] [place] Work Phone: 12-25-2019 10:58-0500 Body weight 74.84 kg King Lappen EK-JKVQX-ZEB 120 0 [place] Work Phone: 12-25-2019 10:58-0500 BP Diastolic 68 mm[Hg] King Lappen IQ-CIKHD-FTV 120 0 [place] Work Phone: 12-25-2019 10:58-0500 BP Systolic 112 mm[Hg] King Lappen VP-SUQPP-CLE 120 0 [place] Work Phone: 12-25-2019 10:58-0500 BSA (Body Surface Area) 1.76 m2 King Lappen AP-TLZRF-THL 1200 [place] Work Phone: 11-09-2019 11:28-0500 Body Temperature 98.78 [degF] Kelechi Gage CI-OJTBC-Thdlne 310 IVF Work Phone: 11-09-2019 11:28-0500 BP Diastolic 76 mm[Hg] Kelechi Gage MB-BSVHH-Fdsgyz 310 IVF Work Phone: 11-09-2019 11:28-0500 BP Systolic 112 mm[Hg] Kelechi Gage NB-UFTBD-Kuapll 310 IVF Work Phone: 11-09-2019 11:28-0500 Respiratory Rate 96 /min Kelechi Gage QB-MXLHT-Icbsvo 310 IVF Work Phone: Encounters Encounter Date Encounter Type Care Provider Facility Start: 02-22-2024 End: 02-22-2024 ambulatory BERE STEEL Not Available Start: 02-07-2024 End: 02-07-2024 ambulatory DEMARIO RIBEIRO Not Available Start: 01-24-2024 End: 01-24-2024 ambulatory [employer] Not Available Start: 01-10-2024 End: 01-11-2024 ambulatory Zoya Buitrago 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 Facility:Pulmonology & Critical Care [facility] Start: 12-27-2023 End: 12-27-2023 ambulatory [employer] Not Available Start: 12-27-2023 End: 12-27-2023 flow sheet Bere JOHNSON Work Phone: [facility] Comment on above: Third trimester preg teddy; First trimester ; Hypothyroidism, unspecified type (CMS/HCC); Hypothyroidism (acquired) (CMS/[facility]); H/O blood clots; Excessive growth affecting management of in third trimester, single or unspecified fetus Start: 11-30-2023 End: 11-30-2023 ambulatory DEMARIO RIBEIRO Not Available Start: 11-03-2023 End: 11-03-2023 ambulatory DEMARIO RIBEIRO Not Available Start: 10-05-2023 End: 10-05-2023 ambulatory [employer] Not Available Start: 09-14-2023 End: 09-14-2023 ambulatory Lc Waite Facility:[facility] Start: 02-27-2023 End: 02-27-2023 Emergency department patient visit EVELYN Husain ANA [facility] Start: 02-27-2023 End: 02-27-2023 [facility] Comment on above: Sprain of left ankle , unspecified ligament, initial encounter (Primary Dx) Start: 01-11-2023 End: 01-11-[address] DEMARIO RIBEIRO . Facility:[facility] Start: 09-22-2022 End: 09-22-2022 Emergency department patient visit JAMI ROMERO [facility] Start: 03-10-[address] EVELYN EPREZ Facility:[facility] Start: 03-03-[address] EVELYN PEREZ [...] 12-27-2021 End: 12-27-2021 ambulatory Sabina Barnhart Other GI Track Other Start: 12-27-2021 Office outpatient visit 5 minutes Sabina Barnhart [facility] Start: 07-16-2021 Patient encounter procedure Evelyn Perez Work Phone: UI-AQYZJ-Qkxlzs 310 IVF Work Phone: Start: 07-07-2021 AUDIT Evelyn santana Work Phone: BA-SABIV-Immdrd 310 IVF Work Phone: Start: 07-07-2021 Chart Update Evelyn santana Work Phone: YC-GQOIN-Hytecw 310 IVF Work Phone: Start: 07-02-2021 Telephone encounter Evelyn gonzales Work Phone: CD-LMDIH-Dsnvsq 310 IVF Work Phone: Start: 06-19-2021 Patient encounter procedure Evelyn Perez Work Phone: VJ-SPQHN-Pyyslc 310 IVF Work Phone: Start: 06-07-2020 Patient encounter procedure King Kempkathrine OO-OQLUX-YMZ [address] [place] Work Phone: Start: 04-24-2020 Patient encounter procedure Knig Lappen VO-CSKDU-RQV 1200 [place] Work Phone: Start: 02-20-2020 Patient encounter procedure King Lappen GO-RTNPS-VOG 1200 [place] Work Phone: Start: 02-14-2020 Patient encounter procedure King Lappen OH-VFEMH-FAS 1200 [place] Work Phone: Start: 01-23-2020 Patient encounter procedure King Lappen LE-IDQRB-PWT 1200 [place] Work Phone: Start: 12-25-2019 Patient encounter procedure King Lappen YC-OGAFD-TQA 1200 [place] Work Phone: Start: 11-21-2019 Patient encounter procedure King Lappen BU-PKYAJ-JBS 1200 [place] Work Phone: Start: 11-16-2019 Patient encounter procedure Kelechi Gage MP-Reproductive Endocrinology-[place] 206 Work Phone: Start: 11-14-2019 Patient encounter procedure Kelechi Gage XG-HILZZ-Hbnkkl 310 IVF Work Phone: Start: 11-09-2019 Patient encounter procedure Kelechi Gage OR-DTWLI-Ygkucc 310 IVF Work Phone: Start: 11-02-2019 Patient encounter procedure Kelechi Gage MP-Reproductive Endocrinology-[place] Work Phone: Start: 10-21-2019 Patient encounter procedure Kelechi Gage MP-Reproductive Endocrinology-[place] Work Phone: Start: 10-14-2019 Patient encounter procedure Kelechi Gage WH-JRUNM-Ztmhab 310 IVF Work Phone: Start: 10-11-2019 Patient encounter procedure Kelechi Gage QH-PSTSZ-Fofjmn 310 IVF Work Phone: Start: 10-05-2019 Patient encounter procedure Kelechi Gage CP-IFSFL-Qptlwr 320 Work Phone: Start: 10-02-2019 Patient encounter procedure Kelechi Gage SI-OGZKU-Gyhapyv 206A IVF Work Phone: Start: 08-14-2019 Patient encounter procedure Kelechi Gage MT-AWAVO-Rusdwh 310 IVF Work Phone: Start: 08-13-2019 Patient encounter procedure Kelechi TONGOU-OUREI-Netiut 310 IVF Work Phone: Start: 08-12-2019 Patient encounter procedure Kelechi TONGHV-UPOAK-Lnkjcs 310 IVF Work Phone: Start: 08-11-2019 Patient encounter procedure Kelechi TONGBN-TBRJT-Favxus 310 IVF Work Phone: Start: 08-09-2019 Patient encounter procedure Kelechi Gage UJ-OPKRT-Bructm 310 IVF Work Phone: Start: 08-07-2019 Patient encounter procedure Kelechi Gage XJ-BTYZR-Zpzaqh 310 IVF Work Phone: Start: 08-04-2019 Patient encounter procedure Kelechi TONGKG-BQNPR-Aipxla 310 IVF Work Phone: Start: 07-07-2019 Patient encounter procedure Kelechi TONGCO-VAOHR-Jpxaqq 310 IVF Work Phone: Start: 06-08-2019 Patient encounter procedure Kelechi TONGJE-VVUBR-Yytapt 310 IVF Work Phone: Start: 05-17-2019 Patient encounter procedure Kelechi TONGYN-YBURK-Rupumi 310 IVF Work Phone: Start: 05-08-2019 Patient encounter procedure Kelechi TONGFL-APGDU-Gwbwpj 310 IVF Work Phone: Start: 05-05-2019 Patient encounter procedure Kelechi TONGOW-GFDRG-Mvetnm 310 IVF Work Phone: Start: 04-13-2019 Patient encounter procedure Kelechi Gage RF-IRJER-Ctlfcz 310 IVF Work Phone: Start: 04-11-2019 Patient encounter procedure Kelechi Gage TU-EYBOS-Udmkwn 310 IVF Work Phone: Start: 03-20-2019 Patient encounter procedure Kelechi Gage EP-YNRUD-Qsjvau 310 IVF Work Phone: Start: 03-17-2019 Patient encounter procedure Kelechi Gage XY-MCDDQ-Vhldml 310 IVF Work Phone: Start: 02-22-2019 Patient encounter procedure Kelechi Gage PL-PQOCJ-Qtppal 310 IVF Work Phone: Start: 02-20-2019 Patient encounter procedure Kelechi Gage CI-IYPMF-Nxiqem 310 IVF Work Phone: Start: 02-13-2019 Patient encounter procedure Bruce Mayes Facility:[facility] Start: 02-08-2019 End: 02-12-2019 Patient encounter procedure Bruce Mayes Facility:[facility] Start: 01-19-2019 Patient encounter procedure Kelechi Gage GZ-PNYHA-Inusmn 310 IVF Work Phone: Patient encounter status Evelyn Perez Work Phone: DC-IEDYB-Zdluib 310 IVF Work Phone: Procedures Date Procedure [...] Routine [facility] [address] [place], [place] [phone] Demario Ribeiro, [address] [place] [address] [facility] Start: 02-07-2024 End: 02-07-2024 Professional / ancillary services management 02/07/2024 9:00 AM EDT Ancillary Procedure [facility] [address] [place] [phone] [facility] Start: 01-24-2024 End: 01-24-2024 Patient encounter procedure 01/24/2024 9:30 AM EDT Routine [facility] [address] [place], [place] [phone] Bere Steel PA [address] [facility] [place], [place] [id number] [facility] Start: 01-10-2024 End: 01-10-2024 Patient encounter procedure 01/10/2024 2:20 PM EST Routine [facility] [address] [place], [place] [phone] Demario Ribeiro DO [address] [place] [address] [facility] Start: 01-10-2024 End: 01-10-2024 Professional / ancillary services management 01/10/2024 2:00 PM EST Ancillary Procedure [facility] [address] [place], [place] [phone] [facility] Start: 12-27-2023 End: 12-27-2024 [...] unspecified fetus Expected: 12/27/2023 (Approximate), Expires: 12/27/2024 [facility] Comment on above: Expected: 12/27/2023 (Approximate), Expires: 12/27/2024 Start: 06-15-2023 Influenza vaccination Flu vacc ine (Season Ended) [facility] Start: 2021 Screening for malignant neoplasm of cervix [facility] Start: 07-25-2021 ULTRASOUND, Provider : OBGYN IVF RDMS ARDEN 1,[facility], Status: Pen, Time: 9:00 AM ULTRASOUND, Provider: OBGYN IVF RDMS ARDEN 1,[facility] O[facility], Status: Pen, Time: 9:00 AM YQ-DDQGO-Sndqxb 310 IVF Work Phone: Start: 07-16-2021 ULTRASOUND, Provider : OBGYN IVF RDMS [id number] 1,[facility], Status: Pen, Time: 1:00 PM ULTRASOUND, Provider: OBGYN IVF RDMS [id number] 1,[facility] O[facility], Status: Pen, Time: 1:00 PM IG-WGVRX-Cpfrmf 310 IVF Work Phone: Start: 07-07-2021 ULTRASALIN, Provider : Miguel A Barrera, Status: Pen, Time: 10:00 AM ULTRASALIN, Provider: Miguel A Barrera, Status: Pen, Time: 10:00 AM DL-XYEHJ-Arssrn 310 IVF Work Phone: Start: 06-05-2020 MAC Imaging Order MG-FIRE INVESTIGATOR-MAC 1200 [place] Work Phone: Start: 11-16-2019 IO Ultrasound, -Reproductive Endocrinology-[facility] chastity 206 Work Phone: Start: 11-14-2019 Blood count complete auto&auto difrntl wbc Complete Blood Count + Differential EA-RLANV-Mktyhc 310 IVF Work Phone: Start: 11-14-2019 Comprehensive metabolic 2000 panel DH-HBOPO-Xzvxas 310 IVF Work Phone: Start: 11-02-2019 Gonadotropin chorion ic quantitative HCG, Beta Quantitative MP-Reproductive Endocrinology-[place] 206 Work Phone: Start: 10-11-2019 IO Ultrasound, limited pelvic, follicle monitoring FI-FCUIC-Drucia 310 IVF Work Phone: Start: 10-05-2019 IO Ultrasound, limited pelvic, follicle monitoring VW-LSCUN-Qmuykd 320 Work Phone: Start: 2012 Screening for malignant neoplasm of cervix Pap smear [facility] Start: 2010 DTaP/Tdap/Td vaccine (1 - Tdap) DTaP/Tdap/Td vaccine (1 - Tdap) [facility] Start: 2009 Hepatitis C screening Hepatitis C sc reen [facility] Start: 2006 HIV screening HIV screen [facility] Start: 2003 Depression Screen Depression Screen [facility] Start: 1992 Varicella vaccine (1 of 2 - 2-dose childhood series) Varicella vaccine (1 of 2 - 2-dose childhood series) [facility] Start: 03-02-1992 COVID-19 Vaccine (#1) COVID-19 Vacci ne (#1) [facility] Assay of estradiol Estradiol, Serum MG-FIRE INVESTIGATOR-[place] 310 IVF Work Phone: Comment on above: Approx [id number] Approx [id number] Approx [id number] Assay of progesterone Progesterone, Serum VJ-HRQCK-Jnbvzu 310 IVF Work Phone: Comment on above: Approx [id number] Gonadotropin luteinizing hormone Luteinizing Hormone, Serum QE-GZNCY-Cgsgcu 310 IVF Work Phone: Comment on above: Approx [id number] YQ-INOGT-Yvvjsv 320 Work Phone: IO Ultrasound, l imited pelvic, follicle monitoring DG-RGLEK-Wnhust 310 IVF Work Phone: Comment on above: Approx [id number] Approx [id number] Approx [id number] NEGATED: Highlighted row has been ruled out! Planned Goals not documented UW-RWIOB-Jouvyq 310 IVF Work Phone: Payers Date Payer Category Payer Self-pay 2016 Private Health Insurance [id number] 2016 Private Health Insurance [id number] 1991 Unknown [id number] 2.16.84 0.1.015118.3.579.2.593 1991 Unknown [id number] 2.16.84 0.1.914649.3.579.2.593 1991 Unknown [id number] 2.16.84 0.1.600265.3.579.2.593 1991 Unknown [id number] 2.16.84 0.1.859920.3.579.2.593 1991 Unknown [id number] 2.16.84 0.1.196352.3.579.2.593 1991 Unknown [id number] 2.16.84 0.1.830539.3.579.2.593 1991 Unknown [id number] 2.16.84 0.1.295170.3.579.2.593 1991 Unknown [id number] 2.16.84 0.1.695065.3.579.2.593 1991 Unknown [id number] 2.16.84 0.1.985881.3.579.2.593 1991 Unknown [id number] 2.16.84 0.1.689906.3.579.2.593 1991 Unknown [id number] 2.16.84 0.1.949482.3.579.2.593 1991 Unknown [id number] 2.16.84 0.1.493565.3.579.2.593 1991 Unknown [id number] 2.16.84 0.1.959761.3.579.2.593 1991 Unknown [id number] 2.16.84 0.1.481830.3.579.2.593 1991 Unknown [id number] 2.16.8 40.1.965665.3.579.2.173 1991 Unknown [id number] 2.16.8 40.1.243117.3.579.2.173 1991 Unknown [id number] 2.16. 840.1.068846.3.579.2.196 1991 Unknown [id number] 2.16. 840.1.746341.3.579.2.196 1991 Unknown [id number] 2.16.84 0.1.200676.3.579.2.1259 1991 Unknown [id number] 2.16.84 0.1.074337.3.579.2.1259 1991 Unknown [id number] 2.16.84 0.1.941877.3.579.2.1259 1991 Unknown [id number] 2.16.84 0.1.767696.3.579.2.1259 1991 Unknown [id number] 2.16.84 0.1.815968.3.579.2.1259 1991 Unknown [id number] 2.16.84 0.1.880628.3.579.2.1259 1991 Unknown [id number] 2.16.840 .1.463127.3.579.2.1259 1991 Unknown [id number] 2.16.840 .1.341394.3.579.2.1259 1959 Self-pay [id number] 1959 Unknown [id number] 1959 Unknown [id number] Unknown [id number] 2.16.8 40.1.116602.3.579.2.243 Unknown [id number] 2.16.8 40.1.247256.3.579.2.243 Unknown Unknown [id number] 2.16.8 40.1.809856.3.579.2.531 Social History Date Type Detail Facility - - ZY-BVRTC-Grqnxg 310 IVF Work Phone: Start: 05-11-2023 End: 12-27-2023 Never a smoker Never a smoker [facility] Comment on above: [facility]; Start: 05-11-2023 End: 09-06-2023 Sex Assigned At [facility] Start: 09-22-2022 End: 04-15-2023 Tobacco smoking status NHIS Never smoked tobacco [employer] Work Phone: Start: 09-22-2022 End: 04-15-2023 Tobacco use and exposure Smokeless tobacco non-user [employer] Phone: Start: 1990 Sex Assigned At Not on file B ON [employer] Phone: Start: 02-17-2023 End: 02-27-2023 Exposure to SARS-CoV-2 (event) Not sure [employer] Start: 12-27-2023 Alcohol intake Current drinke r [...] status health issues are not documented Disease BO-CGAWU-Aplodr 310 IVF Work Phone: Mental Status Date Assessment Result Facility NEGATED: Highlighted row Cognitive function [Interpretation] Cognitive status health issues are not documented Disease MN-FXMNE-Dgojuy 310 IVF Work Phone: History of Present [...] Problems Past Medical History: Diagnosis Date Asthma ([facility]) Infection of obstetric surgical wound Protein S deficiency ([facility]) Vaginal delivery Family History Problem Relation Name [...] of: ELIZABETH Daly documented in this encounter [facility] Healthcare Evaluation note 12-27-2021 Note Date [...] care instructions given in writting by [facility] [place] [facility] document. GI Track Other Clinical Note 07-25-2021 Note Date & [...] care. Reviewed plan with Dr. Bruce Aburto, HEATING AND VENTILATION ENGINEER 07/25/2021 09:22 note: ob scan LOLLY: 03/05/2022. [...] Plan reviewed by Dr. Healy. Petra Lombardi HEATING AND VENTILATION ENGINEER 07/16/21 1409 TC to pt with quant = 3238 form yesterday; normal rise from 728 on 07/02; Pt doing well; no problems with Lovenox. PT transferred to [facility] to schedule OB US for next week at [facility]. Bere Way RN 07/07/2021 11:47 Spoke with patient regarding WTDB=834. Pain=0. Patient states she will begin prometrium BID and Lovenox today. Patient will repeat BHCg on Wednesday when she is at work. Patient aware RN will call her WednesdayJuly 07 with results and plan. Lucy Dunlap R.N.07/03/2021 12:19 Spoke to patient, will start Prometrium 100 mg BID and Lovenox 40 mg BID today (+Protein S deficiency). [place] to f/u with patient tomorrow once HCG level is back. Patient verbalized understanding. Rosibel Sam RN 07/02/2021 13:54 note: Reviewed positive test. LMP 15, conceived on christy cycle/IC. Plan to get HCG drawn today. Start Prometrium 100mg BID. Start Lovenox 40mg BID SQ. Plan per Dr. Healy. RN to communicate. Petra Lombardi HEATING AND VENTILATION ENGINEER 07/02/21 1304 Active Problems 16 weeks gestation [...] directed. Peak [employer] (more content not included)... [employer] Chief complaint Narrative - Reported 06-19-2021 Note [...] 30 year-old who presents for a FET [id number] Hx:06/2020: IOL @ 38 weeks due to [...] contour on HSG - images reviewed from [facility] 08/2018Uterine Cavity Evaluation:Normal uterine cavity [...] on therapeutic dosing when Genetic Screening Hx: [employer] foresight screen negativePartner History:Franklin Ashley [birth year]1990A in past year:2.8 cc125 mil/mL69% [id number]=399 million(recent IUI sample)Morph from original SA was 2.8% [id number] IVF Work Phone: Evaluation note Note Date & Type Note Facility Evaluation note Diagnosis Sprain of left ankle, unspecified ligament, initial encounter- Primary documented in this encounter [employer] Work Phone: Evaluation note Note Date & Type Note Facility Evaluation note Diagnosis Third trimester state, incidental First trimester state, incidental Hypothyroidism, unspecified type (CMS/HCC) Hypothyroidism (acquired) (CMS/HCC) Unspecified hypothyroidism H/O blood clots Excessive growth affecting management of in third trimester, single or unspecified fetus documented in this encounter [facility] Discharge instructions Attachments Note Date & Type Note Facility Hospital Discharge instructions The following attachments cannot be sent through Care Everywhere.Ankle Sprain (Setswana)Ankle Sprain: Rehab Exercises (Setswana)documented in this encounter [employer] Work Phone: Summary Purpose Family History No [...] and content) DATE CREATED AUTHOR 02/15/2019 [facility] DATE CREATED AUTHOR AUTHOR'S ORGANIZ ATION 11/12/2019 [facility] DATE CREATED AUTHOR AUTHOR'S ORGANIZ ATION 08/09/2020 [facility] DATE CREATED AUTHOR AUTHOR'S ORGANIZ ATION 07/26/2021 [employer] DATE CREATED AUTHOR AUTHOR'S ORGANIZ ATION 01/21/2023 [facility] DATE CREATED AUTHOR AUTHOR'S ORGANIZ ATION 03/06/2023 [facility] DATE CREATED AUTHOR AUTHOR'S ORGANIZ ATION 07/12/2023 [facility] DATE CREATED AUTHOR AUTHOR'S ORGANIZ ATION 10/04/2023 [facility] DATE CREATED AUTHOR AUTHOR'S ORGANIZ ATION 01/15/2024 [facility] DATE CREATED AUTHOR AUTHOR'S ORGANIZ ATION 02/23/2024 [facility] EPIC REASON FOR VISIT (unrecogniz ed section and content) Reason Comments Ankle Pain Rolled ankle during morning run. Swelling to lateral ankle. 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 Reason Comments Routine Visit Care Teams (unrecognized sec tion and content) Laborer Driver Relationship Specialty Start Date End Date Evelyn Perez [address] [place] [id number] PCP - General Pediatrics 09/22/22 Laborer Driver Relationship Specialty Start Date End Date Jesse Regan MD [address] [place], [place] [id number] PCP - General Family Medicine 11/30/23 FOR [...] BE BASED ON THE PRIMARY CLINICAL RECORDS. [employer] provides no warranty or guarantee of the accuracy or completeness of information in this document.
--- NOTE | 2024-02-29 10:01 | US_ITS ---
[address] [address] Patient Name: ELVIN STUART MRN: [id number] date: 1990 Sex: F Assigned Patient Location: US Current Patient Location: Accession/Order Number: [id number] Exam Date: 02/29/2024 10:05 Report Date: 02/29/2024 11:51 At the request of: RADAMES CHAUHAN Procedure: US OB BPP w non-stress EXAMINATION: US OB BPP w non-stress HISTORY: Hypothyroidism COMPARISON: No relevant comparison available. TECHNIQUE: Ultrasound biophysical profile was performed in the radiology department. FINDINGS: BREATHING MOVEMENTS: 2.0 GROSS BODY MOVEMENTS: 2.0 TONE: 2.0 QUALITATIVE AMNIOTIC FLUID VOLUME: 2.0 PRESENTATION: CEPHALIC HEART RATE: 137.1 bpm H.B./min AMNIOTIC FLUID VOLUME: 11.3 cm cm GESTATIONAL AGE: 37 weeks 3 days CONCLUSION: Total biophysical profile score: 8.0 Electronically authenticated by: JESSE THOMAS Date: 02/29/2024 11:51
--- NOTE | 2024-02-29 10:01 | US_ITS ---
[address] [address] Patient Name: ELVIN STUART MRN: [id number] date: 1990 Sex: F Assigned Patient Location: [facility] Current Patient Location: Accession/Order Number: [id number] Exam Date: 02/29/2024 10:05 Report Date: 02/29/2024 12:08 At the request of: RADAMES CHAUHAN Procedure: US OB growth EXAMINATION: US OB growth HISTORY: Excessive growth COMPARISON: No relevant comparison available. FINDINGS: Heart Rate: 137.1 bpm Amniotic Fluid Volume: 11.3 cm Number: 1.0 Position: Cephalic presentation, longitudinal lie Maximum Vertical Pocket: 5.1 cm cm 1.8 cm cm 1.3 cm cm 3.1 cm cm BIOMETRY: BPD: 8.9 cm cm; 36 weeks 1 days; 33% HC: 32.9 cmcm; 37 weeks 3 days , 25% AC: 33.9 cm cm; 37 weeks 6 days, 76% FL: 7.0 cm cm; 36 weeks 0 days; 16.2 % % EFW: 3128.7 grams, 6 lbs. 14 oz., 51% FL/AC: 20.7 FL/BPD: 78.5 HC/AC: 1.0 GESTATIONAL AGE: Age by EDC: 37 weeks 3 days LOLLY by EDC: 03/18/2024 Age by US: 36 weeks 6 days LOLLY by US: 03/22/2024 US/US OB growth IMPRESSION: Normal interval growth Electronically authenticated by: JESSE THOMAS Date: 02/29/2024 12:08
[2024-02-29 10:31] VITALS: BP 117/67; PULSE 78
== END 2024-02-29 11:02 | disposition home or self-care (01) ==
LOC: US 07:34 → FBC 09:59
PROVIDERS: Visit Provider Obstetrics & Gynecology
DX: O36.63X0 Maternal care for excessive fetal growth, third trimester, not applicable or unspecified (principal); Z3A.37 37 weeks gestation of pregnancy
CPT/HCPCS: 76816; 76818

== ENCOUNTER 2024-03-03 09:58 | Outpatient (OUT) | payer OTHER, SELFPAY ==
[2024-03-03 10:09] VITALS: BP 124/67; PULSE 96
--- OUTSIDE RECORDS SUMMARY | 2024-03-03 10:10 | XMS_ITS | CCD ---
Author Organization [facility] Care Team Providers Care Teletypesetter Monitor Name Role Phone Bruce Mayes Attending Unavailable [...] HER Unavailable Unavaila ble OBGYN IVF RDMS [id number] 1, MG OBGYN Unavailable Unavailable Lapkathrine King Unavailable Unavailable Shahla Healy Unavailable Unavailable January, Jami Unavailable Unavailable Evelyn Perez Unavailable [phone] Unavailable Unavailable Unavailable Unavailable Sabina Barnhart Unavailable [...] Unavailabl e ANA, EVELYN M Primary Care Unavailabl Lc Sunshine Admitting Unavailable Evelyn Perez Primary Care Unavailable Lc Waite Attending Unavailable Jesse Regan MD Primary Care Provider [phone] [facility], Zoya Cheung Attending Evelyn Robertson MD Primary Care Zamzam vailable Ana CALDERÓN, Evelyn Gracia Primary Care Zamzam vailable Link KEEGANDIRECTOR OF OUTREACH, Zoya Cheung Attending Unava ilable DEMARIO RIBEIRO Attending Unavailable ELSA, BERE Attending Unavailable GISSEL, DEMARIO Attending Unavailable ELSA, BERE Attending Unavailable ELSA, BERE Attending Unavailable GISSEL, DEMARIO Attending Unavailable ELSA, BERE Attending Unavailable GISSEL, DEMARIO Attending Unavailable GISSEL, DEMARIO Attending Unavailable Allergies Allergy Classification Reported Allergen(s) Allergy Type Date of Onset Reaction(s) Facility Progesterone (2 sources) Progesterone; Translations: [Progesterone OIL] Drug Allergy [id number]-Gupnr n 310 IVF Work Phone: (16 sources) Progesterone; Translations: [Progesterone OIL] Drug Allergy 2 [facility] (2 sources) sesame seed extract Drug Allergy The [facility] Repository (2 sources) Progesterone Drug Allergy 2 [facility] (1 source) No Known Medication Allergies; Translations: [No Known Medication Allergies] Propensity to adverse reactions to drug (disorder) [facility] Repository Medications Current Medications Medication Drug Class(es) [...] Start: 09-22-2022 take 1 tablet by immanuel th four times daily metoclopramide (REGLAN) 10 MG [...] Kelechi Gage MD Start : 14-Aug-2019 Active [id number] 200 actuat albuterol 0.09 mg/actuat metered dose [...] DO Start : 19-Jan-2019 Active BD Disp [place] 27G X 1/2 (19 sources) Start: 10-03-2019 BD Disp Needle s 27G X 1/2 USE DIRECTED. Quantity: 2 Refills: 2 Shahla Healy MD Start : 03-Oct-2019 Active chorionic gonadotropin 04028 unt/ml injectable solution (19 sources) Gonadotropin Start: 10-03-2019 Chorionic Gonadotropin 54863 UNIT Intramuscular Solution Reconstituted USE DIRECTED. Quantity: [...] Start : 25-Dec-2019 Active Peak Flow Meter Sagamore Rang Device (3 sources) Start: 01-23-2020 Peak Flow Mete r Sagamore Rang Device USE DIRECTED. Quantity: 1 Refills: [...] refills. Continue with anticoagulation as prescribed by [employer], patient is currently 30 weeks gestation. Follow-up [...] embolism Historical No qualifying data Procedure/Surgical History [place] Teeth Removal (2005) IVF (11/15/2018) Medications Dulera [...] Link Zoya PERKINS 01/10/24 12:40 EST Normal [facility] Phone Note - Heme Onc-medica tion questionon 07-12-2023 Phone Note - Heme Onc-medication question Phone Call Information: Patient Demographics: Name: KIARA ASHLEY Date: 1990 Address: [address] [place] [address] Date and Time: 12-Jul-2023 09:31 Caller Information: call from Call From: patient Caller Name: Kiara Primary Phone Number: [phone] Reason for Call: Reason for Callmedication question [...] (Signed 12-Jul-2023 09:57) Authored: Phone Call Information KeelingAshli (UNIT SECT) (Signed 12-Jul-2023 09:31) Authored: Phone Call Information, Outpatient Medication Profile, Allergies, Results Last Updated: 12-Jul-2023 09:57 by Harmony Ross (N MGR) Normal [facility] XR ANKLE LEFT (MIN 3 VIEWS)o [...] Dario William MD 02/27/23 Final result Normal [facility] 1. No acute osseous abnormality involving the [...] acute osseous abnormality involving the left ankle. [employer] Work Phone: Radiology Study observation (narrative) Move In History Phone: XR ANKLE LEFT (MIN 3 VIEWS)O rdered By: Dario Stewart on 02-27-2023 [facility] [employer] Phone: PAP ACOG PANEL 2: 30 to 65on 01-19-2023 . . Normal [facility] Comment on above: Result Comment: Perf ormed at: WB Performed By: #### [id number] #### [facility] [address] [place] [address] Dr. Claire Mayes Age Gdln ACOG Testing 30-65 [facility] Comment on above: Performed By: #### [id number] #### [facility] [address] [address] [address] Claire Mayes DIAGNOSIS: Comment Normal [facility] Comment on above: Result Comment: NEGA TIVE FOR INTRAEPITHELIAL LESION OR MALIGNANCY. Performed at: WB Performed By: #### [id number] #### [facility] [address] [address] [address] Claire Mayes HPV Aptima Negative Normal Negative [facility] Comment on above: Result Comment: This nucleic acid amplification test detects fourteen high-risk HPV types (16,18,31,33,35,39,45,51,52,56,58,59,66,68) without differentiation. Performed at: =G Performed By: #### [id number] #### [facility] [address] [address] [address] Claire Mayes HPV Genotype Reflex Comment Normal [facility] Comment on above: Result Comment: Crit eria not met, HPV Genotype not performed. Performed at: WB Performed By: #### [id number] #### [facility] [address] [address] [address] Claire Mayes Methodology: Comment Normal [facility] Comment on above: Result Comment: This liquid based ThinPrep(R) pap test was screened with the use of an image guided system. Performed at: WB Performed By: #### [id number] #### [facility] [address] [place] [address] Dr. Claire Mayes Note: Comment Normal [facility] Comment on above: Result Comment: The Pap smear is a screening test designed to aid in the detection of premalignant and malignant conditions of the uterine cervix. It is not a diagnostic procedure and should not be used as the sole means of detecting cervical cancer. Both false-positive and false-negative reports do occur. . Performed at: WB Performed By: #### [id number] #### [facility] [address] [place] [address] Dr. Claire Mayes Performed by: Comment Normal [facility] Comment on above: Result Comment: Sherlyn Wright, Caddymaster (ASCP) Performed at: WB Performed By: #### [id number] #### [facility] [address] [place] [address] Dr. Claire Mayes Specimen adequacy: Comment Normal [facility] Comment on above: Result Comment: Sati sfactory for evaluation. No endocervical component is identified. Performed at: WB Performed By: #### [id number] #### [facility] [address] [place] [address] Dr. Claire Mayes CBC with Diffon 09-22-2022 Abs. Basophil 0.03 k/uL Normal 0.00-0.20 [facility] Comment on above: Performed By: #### L BJ BUCK, CP #### [facility] [address] [place], [place] [address]83 Master Ship: Jesse Curry MD Abs.Imm.Granulocy te 0.04 k/uL Normal 0.00-0.30 [facility] Comment on above: Performed By: #### L BJ BUCK, CP #### [facility] [address] [place], [place] [address] Master Ship: Jesse Curry MD Abs.Neutrophil (Seg) 12.54 k/uL High 1.50-8.10 [facility] Comment on above: Performed By: #### L IP, CDP, CP #### [address] [place], [place] [address] Master Ship: Jesse Curry MD Basophils/100 WBC (Bld) 0 % Normal 0-2 [facility] Comment on above: Performed By: #### L IP, CDP, CP #### [address] [place], [place] [address] Master Ship: Jesse Curry MD Eosinophils (Bld) [#/Vol] 0.16 10*3/uL Normal 0.00-0.44 [facility] Comment on above: Performed By: #### L IP, CDP, CP #### [address] [place] [address] Master Ship: Jesse Curry MD Eosinophils/100 WBC (Bld) 1 % Normal 1-4 [facility] Comment on above: Performed By: #### L IP, CDP, CP #### [address] [place] [address]83 Master Ship: Jesse Curry MD Erythrocyte distribution width (RBC) [Ratio] 13.6 % Normal 11.8-14.4 [facility] Comment on above: Performed By: #### L IP, CDP, CP #### [address] [place], [place] [address] Master Ship: Jesse Curry MD Hematocrit (Bld) [Volume fraction] 46.4 % Normal 36.3-47.1 [facility] Comment on above: Performed By: #### L IP, CDP, CP #### [address] [place], [facility]83 Master Ship: Jesse Curry MD Hemoglobin (Bld) [Mass/Vol] 15.6 g/dL High 11.9-15.1 [facility] Comment on above: Performed By: #### L IP, CDP, CP #### [facility] [address] [place], [facility] Master Ship: Jesse Curry MD Immature granulocytes/100 WBC (Bld) 0 % Normal 0 [facility] Comment on above: Performed By: #### L IP, CDP, CP #### [address] [place], [place] [address] Master Ship: Jesse Curry MD Lymphocytes (Bld) [#/Vol] 0.98 10*3/uL Low 1.10-3.70 [facility] Comment on above: Performed By: #### L IP, CDP, CP #### [address] [place], [facility]83 Master Ship: Jesse Curry MD Lymphocytes/100 WBC (Bld) 7 % Low 24-43 [facility] Comment on above: Performed By: #### L IP, CDP, CP #### [address] [place], [facility] Master Ship: Jesse Curry MD MCH (RBC) [Entitic mass] 30.4 pg Normal 25.2-33.5 [facility] Comment on above: Performed By: #### L IP, CDP, CP #### [address] [place], [place] [address] Master Ship: Jesse Curry MD MCHC (RBC) [Mass/Vol] 33.6 g/dL Normal 28.4-34.8 [facility] Comment on above: Performed By: #### L IP, CDP, CP #### [address] [place] [address] Master Ship: Jesse Curry MD MCV (RBC) [Entitic vol] 90.3 fL Normal 82.6-102.9 [facility] Comment on above: Performed By: #### L IP, CDP, CP #### [facility] [address] [place] [address] Master Ship: Jesse Curry MD Monocytes (Bld) [#/Vol] 0.58 10*3/uL Normal 0.10-1.20 [facility] Comment on above: Performed By: #### L IP, CDP, CP #### [facility] [address] [place] [address] Dr. [place], [place] [address] Master Ship: Jesse Curry MD Monocytes/100 WBC (Bld) 4 % Normal 3-12 [facility] Comment on above: Performed By: #### L IP, CDP, CP #### [address] [place], [place] [address] Master Ship: Jesse Curry MD Neutrophil (Seg) 88 % High 36-65 [facility] Comment on above: Performed By: #### L IP, CDP, CP #### [address] [place], [facility]83 Master Ship: Jesse Curry MD NRBC Automated 0.0 per 100 WBC Normal 0.0 [facility] Comment on above: Performed By: #### L IP, CDP, CP #### [address] [place], [place] [address] Master Ship: Jesse Curry MD Platelet mean volume (Bld) [Entitic vol] 9.9 fL Normal 8.1-13.5 [facility] Comment on above: Performed By: #### L IP, CDP, CP #### [address] [place], [place] [address]783 Master Ship: Jesse Curry MD Platelets (Bld) [#/Vol] 299 10*3/uL Normal 138-453 [facility] Comment on above: Performed By: #### L IP, CDP, CP #### [address] [place] [address] Master Ship: Jesse Curry MD RBC (Bld) [#/Vol] 5.14 10*6/uL High 3.95-5.11 [facility] Comment on above: Performed By: #### L IP, CDP, CP #### [facility] [address] [place] [address] Master Ship: Jesse Curry MD WBC (Bld) [#/Vol] 14.3 10*3/uL High 3.5-11.3 [facility] Comment on above: Performed By: #### L IP, BJ, CP #### [facility] [address] [place], [place] 9[address] Master Ship: Jesse Curry MD CT ABDOMEN PELVIS W [...] A Maldonado DO 09/22/22 Final result Normal [facility] Comp Metabolic Profon 2021 Albumin [Mass/Vol] 4.7 g/dL Normal 3.5-5.2 [facility] Comment on above: Performed By: #### L IP, CDP, CP #### [facility] [address] [place] [address] [place] [address] Master Ship: Jesse Curry MD Albumin/Glob Ratio 2.0 Normal 1.0-2.5 [facility] Comment on above: Performed By: #### L IP, CDP, CP #### [facility] [address] [place] [address] Dr. [place], [place] [address]83 Master Ship: Jesse Curry MD Alkaline Phos 77 U/L Normal 35-104 [facility] Comment on above: Performed By: #### L IP CDP, CP #### [address] [place], [place] [address]683 Master Ship: Jesse Curry MD ALT [Catalytic activity/Vol] 10 U/L Normal 5-33 [facility] Comment on above: Performed By: #### L IP, CDP, CP #### [facility] [address] [place] [address] Dr. [place], [place] [address]83 Master Ship: Jesse Curry MD Anion gap [Moles/Vol] 12 mmol/L Normal 9-17 [facility] Comment on above: Performed By: #### L IP, CDP, CP #### [facility] [address] [place] [address] [place] [address] Master Ship: Jesse Curry MD AST [Catalytic activity/Vol] 14 U/L Normal <32 [facility] Comment on above: Performed By: #### L IP, CDP, CP #### [facility] [address] [place], [place] [address]283 Master Ship: Jesse Curry MD Bilirubin [Mass/Vol] 0.6 mg/dL Normal 0.3-1.2 [facility] Comment on above: Performed By: #### L IP, CDP, CP #### [facility] [address] [place], [place] [address]83 Master Ship: Jesse Curry MD BUN/CRE Ratio 31 High 9-20 [facility] Comment on above: Performed By: #### L IP, CDP, CP #### [facility] [address] [place] [address] Dr. [place], [place] 8[address]83 Master Ship: Jesse Curry MD Calcium [Mass/Vol] 9.8 mg/dL Normal 8.6-10.4 [facility] Comment on above: Performed By: #### L IP, CDP, CP #### [facility] [address] [place] [address] Dr. [place], [place] [address]83 Master Ship: Jesse Curry MD Chloride [Moles/Vol] 104 mmol/L Normal 98-107 [facility] Comment on above: Performed By: #### L IP, CDP, CP #### [facility] [address] [place] [address] Dr. [place], [place] [address]383 Master Ship: Jesse Curry MD CO2 [Moles/Vol] 22 mmol/L Normal 20-31 [facility] Comment on above: Performed By: #### L IP, CDP, CP #### [facility] [address] [place] [address] Dr. [place], [place] [address]38683 Master Ship: Jesse Curry MD Creatinine [Mass/Vol] 0.85 mg/dL Normal 0.50-0.90 [facility] Comment on above: Performed By: #### L IP, CDP, CP #### [facility] [address] [place] [address] [place] [address] Master Ship: Jesse Curry MD GFR/1.73 sq M.predicted among non-blacks MDRD (S/P/Bld) [Vol rate/Area] mL/min/{1.73_m2} Normal >60 [facility] Comment on above: Result Comment: Effective Aug [...] By: #### L IP CDP, CP #### [facility] [address] [place] [address] [place] [address] Master Ship: Jesse Curry MD Glucose [Mass/Vol] 109 mg/dL High 70-99 [facility] Comment on above: Performed By: #### L IP CDP, CP #### [facility] [address] [place] [address] [place] [address] Master Ship: Jesse Curry MD Potassium [Moles/Vol] 4.0 mmol/L Normal 3.7-5.3 [facility] Comment on above: Performed By: #### L CIELO CDP, CP #### [facility] [address] [place] [address] [place] [address] Master Ship: Jesse Curry MD Protein [Mass/Vol] 7.1 g/dL Normal 6.4-8.3 [facility] Comment on above: Performed By: #### L IP CDP, CP #### [facility] [address] [place] [address] Master Ship: Jesse Curry MD Sodium [Moles/Vol] 138 mmol/L Normal 135-144 [facility] Comment on above: Performed By: #### L IP, CDP, CP #### [facility] [address] [place] [address] Master Ship: Jesse Curry MD Urea nitrogen [Mass/Vol] 26 mg/dL High 6-20 [facility] Comment on above: Performed By: #### L BJ BCUK, CP #### [facility] [address] [place] [address] Master Ship: Jesse Curry MD HCG, ,Urineon 09-22 Beta HCG ( test) Ql (U) Negative Normal NEG [facility] Comment on above: Result Comment: Spec imens with hCG levels near the threshold of the test (25 mIU/mL) may give a negative or indeterminate result. In such cases, another test should be performed with a new specimen in 48-72 hours. If early is suspected clinically in this setting, correlation with quantitative serum b-hCG level is suggested. [facility] has confirmed the use of plasma for this test. This has not been cleared or approved by the U.[place]. Food and Drug Administration. The FDA has determined that such clearance is not necessary. Performed By: #### U HCG #### [facility] [address] [place] [address] Master Ship: Jesse Curry MD Lactic Acidon 09-22-2022 Lactate [Moles/Vol] 1.8 mmol/L Normal 0.5-2.2 [facility] Comment on above: Performed By: #### L ACTIC #### [facility] [address] [place] [address] Master Ship: Jesse Curry MD Lipaseon 09-22-2022 Lipase [Catalytic activity/Vol] 39 U/L Normal 13-60 [facility] Comment on above: Performed By: #### L BJ BUCK, CP #### [facility] [address] [place] [address] Master Ship: Jesse Curry MD UA w/Reflex Cultureon 2021 Bilirubin, SemiQt,Ur Negative Normal NEG [facility] Comment on above: Performed By: #### U MICAO, UAX #### [facility] [address] [place], [place] 4229383 Master Ship: Jesse Curry MD Blood, Urine Negative Normal NEG [facility] Comment on above: Performed By: #### U MICAO, UAX #### [facility] [address] [place], [place] [address] Master Ship: Jesse Curry MD Clarity (U) Clear Normal CLEAR [facility] Comment on above: Performed By: #### U MICAO, UAX #### [address] [place], [place] [address]83 Master Ship: Jesse Curry MD Color (U) Yellow Normal YEL [facility] Comment on above: Performed By: #### U MICAO, UAX #### [address] [place], [place] [address]83 Master Ship: Jesse Curry MD Glucose Ql (U) Negative Normal NEG [facility] Comment on above: Performed By: #### U MICAO, UAX #### [address] [place], [place] [address]83 Master Ship: Jesse Curry MD Ketones Ql (U) Negative Normal NEG [facility] Comment on above: Performed By: #### U MICAO, UAX #### [facility] [address] [place] [address] Dr. [place], [place] 7120383 Master Ship: Jesse Curry MD Leukocyte esterase Test strip Ql (U) Negative Normal NEG [facility] Comment on above: Performed By: #### U MICAO, UAX #### [facility] [address] [place], [place] [address]83 Master Ship: Jesse Curry MD Nitrite,Ur Negative Normal NEG [facility] Comment on above: Performed By: #### U MICAO, UAX #### [facility] [address] [place], [place] 428[address]83 Master Ship: Jesse Curry MD PH,Ur 8.0 Normal 5.0-9.0 [facility] Comment on above: Performed By: #### U MICAO, UAX #### [facility] [address] [place], [place] 48[address]383 Master Ship: Jesse Curry MD Protein Ql (U) Negative Normal NEG [facility] Comment on above: Performed By: #### U MICAO, UAX #### [facility] [address] [place], [place] [address]83 Master Ship: Jesse Curry MD Spec. [place],Ur 1.020 Normal 1.010-1.020 [facility] Comment on above: Performed By: #### U MICAO, UAX #### [facility] [address] [place], [place] 99[address]83 Master Ship: Jesse Curry MD Urobilinogen,Ur Normal Normal NORM [facility] Comment on above: Performed By: #### U MICAO, UAX #### [address] [place], [place] [address]83 Master Ship: Jesse Curry MD Urinalysis,Microon 2 Bacteria TRACE Abnormal NONE [facility] Comment on above: Performed By: #### U MICAO, UAX #### [facility] [address] [place], [place] [address] Master Ship: Jesse Curry MD Epithelial cells LM Ql (Urine sed) 0 TO 2 Normal 0-25 [facility] Comment on above: Performed By: #### U MICAO, UAX #### [facility] [address] [place], [place] [address] Master Ship: Jesse Curry MD Urine RBC's None Normal 0-2 [facility] Comment on above: Performed By: #### U DARIO, UAX #### [facility] [address] [place] [address] Master Ship: Jesse Curry MD Urine WBC's 0 TO 2 Normal 0-5 [facility] Comment on above: Performed By: #### U DARIO UAX #### [facility] [address] [place] [address] Master Ship: Jesse Curry MD CBC AUTO DIFFon 02-20-2022 BASO # 0.1 103/ul Normal 0.0-0.1 [facility] Comment on above: Performed By: #### C BC #### [facility] [address] [place] [address] Dr. Claire Mayes Basophils/100 WBC (Bld) 0.8 % Normal 0.2-2.0 [facility] Comment on above: Performed By: #### C BC #### [facility] [address] [place] [address] Dr. Claire Mayes EO # 0.2 103/ul Normal 0.0-0.7 [facility] Comment on above: Performed By: #### C BC #### [facility] [address] [place] [address] Dr. Claire Mayes Eosinophils/100 WBC (Bld) 0.9 % Normal 0.9-7.0 [facility] Comment on above: Performed By: #### C BC #### [facility] [facility] [address] [place] [address] Dr. Claire Mayes Erythrocyte distribution width (RBC) [Ratio] 15.0 % Normal 11.0-15.[address] [facility] Comment on above: Performed By: #### C BC #### [facility] [address] [place] [address] Dr. Claire Mayes Hematocrit (Bld) [Volume fraction] 31.3 % Critically low 36.0-48.0 [facility] Comment on above: Performed By: #### C BC #### [facility] [address] [address] [address] Claire Mayes Hemoglobin (Bld) [Mass/Vol] 10.3 g/dL Critically low 12.0-16.0 [facility] Comment on above: Performed By: #### C BC #### [facility] [address] [address] [address] Claire Mayes IG # 0.21 10e3/ul Critically high 0.00-0.[address] [facility] Comment on above: Performed By: #### C BC #### [facility] [address] [place] [address] Dr. Claire Mayes IG % 1.3 % Critically high 0.0-0.5 [facility] Comment on above: Performed By: #### C BC #### [facility] [address] [place] [address] Dr. Claire Mayes LYMPH # 2.1 103/ul Normal 1.2-3.8 [facility] Comment on above: Performed By: #### C BC #### [facility] [address] [place] [address] Dr. Claire Mayes Lymphocytes/100 WBC (Bld) 12.6 % Critically low 20.5-60.0 [facility] Comment on above: Performed By: #### C BC #### [facility] [address] [place] [address] Dr. Claire aMyes MANUAL DIFF REQ NO Normal [facility] Comment on above: Performed By: #### C BC #### [facility] [address] [place] [address] Dr. Claire Mayes MCH (RBC) [Entitic mass] 29.8 pg Normal 26.7-34.0 [facility] Comment on above: Performed By: #### C BC #### [facility] [address] [place] [address] Dr. Claire Mayes MCHC (RBC) [Mass/Vol] 32.9 g/dL Normal 29.9-35.2 [facility] Comment on above: Performed By: #### C BC #### [facility] [address] [place] [address] Dr. Claire Mayes MCV (RBC) [Entitic vol] 90.5 fL Normal 81.0-99.[address] [facility] Comment on above: Performed By: #### C BC #### [facility] [address] [place] [address] Dr. Claire Mayes MONO # 0.8 103/ul Normal 0.3-0.[address] [facility] Comment on above: Performed By: #### C BC #### [facility] [address] [address] [address] Claire Mayes Monocytes/100 WBC (Bld) 5.1 % Normal 1.7-12.0 [facility] Comment on above: Performed By: #### C BC #### [facility] [address] [place] [address] Dr. Claire Mayes NEUT # 13.2 103/ul Critically high 1.4-6.5 [facility] Comment on above: Performed By: #### C BC #### [facility] [address] [place] [address] Dr. Claire Mayes Neutrophils/100 WBC (Bld) 79.3 % Critically high 43.0-75.[address] [facility] Comment on above: Performed By: #### C BC #### [facility] [address] [place] [address] Dr. Claire Mayes Platelet mean volume (Bld) [Entitic vol] 10.4 fL Normal 9.5-13.[address] [facility] Comment on above: Performed By: #### C BC #### [facility] [address] [place] [address] Dr. Claire Mayes PLT 233 103/ul Normal 150-[address] [facility] Comment on above: Performed By: #### C BC #### [facility] [address] [place] [address] Dr. Claire Mayes RBC 3.46 106/ul Critically low 4.20-5.[address] [facility] Comment on above: Performed By: #### C BC #### [facility] [address] [place] [address] Dr. Claire Mayes WBC 16.6 103/ul Critically high 4.0-11.0 [facility] Comment on above: Performed By: #### C BC #### [facility] [address] [place] [address] Dr. Claire Mayes CBC AUTO DIFFon 02-18-2022 BASO # 0.1 103/ul Normal 0.0-0.1 [facility] Comment on above: Performed By: #### C BC #### [facility] [address] [place] [address] Dr. Claire Mayes Basophils/100 WBC (Bld) 0.7 % Normal 0.2-2.0 [facility] Comment on above: Performed By: #### C BC #### [facility] [address] [place] [address] Dr. Claire Mayes EO # 0.2 103/ul Normal 0.0-0.7 [facility] Comment on above: Performed By: #### C BC #### [facility] [address] [place] [address] Dr. Claire Mayes Eosinophils/100 WBC (Bld) 1.2 % Normal 0.9-7.0 [facility] Comment on above: Performed By: #### C BC #### [facility] [address] [place] [address] Dr. Claire Mayes Erythrocyte distribution width (RBC) [Ratio] 15.0 % Normal 11.0-15.0 [facility] Comment on above: Performed By: #### C BC #### [facility] [address] [place] [address] Dr. Claire Mayes Hematocrit (Bld) [Volume fraction] 35.1 % Critically low 36.0-48.0 [facility] Comment on above: Performed By: #### C BC #### [facility] [address] [place] [address] Dr. Claire Mayes Hemoglobin (Bld) [Mass/Vol] 11.8 g/dL Critically low 12.0-16.0 [facility] Comment on above: Performed By: #### C BC #### [facility] [address] [place] [address] Dr. Claire Mayes IG # 0.30 10e3/ul Critically high 0.00-0.[address] [facility] Comment on above: Performed By: #### C BC #### [facility] [address] [place] [address] Dr. Claire Mayes IG % 1.9 % Critically high 0.0-0.5 [facility] Comment on above: Performed By: #### C BC #### [facility] [address] [place] [address] Dr. Claire Mayes LYMPH # 2.9 103/ul Normal 1.2-3.8 [facility] Comment on above: Performed By: #### C BC #### [facility] [address] [place] [address] Dr. Claire Mayes Lymphocytes/100 WBC (Bld) 18.5 % Critically low 20.5-60.0 [facility] Comment on above: Performed By: #### C BC #### [facility] [address] [place] [address] Dr. Claire Mayes MANUAL DIFF REQ NO Normal [facility] Comment on above: Performed By: #### C BC #### [facility] [address] [place] [address] Dr. Claire Mayes MCH (RBC) [Entitic mass] 30.2 pg Normal 26.7-34.0 [facility] Comment on above: Performed By: #### C BC #### [facility] [address] [place] [address] Dr. Claire Mayes MCHC (RBC) [Mass/Vol] 33.6 g/dL Normal 29.9-35.2 [facility] Comment on above: Performed By: #### C BC #### [facility] [address] [place] [address] Dr. Claire Mayes MCV (RBC) [Entitic vol] 89.8 fL Normal 81.0-99.0 [facility] Comment on above: Performed By: #### C BC #### [facility] [address] [place] [address] Dr. Claire Mayes MONO # 0.7 103/ul Normal 0.3-0.8 [facility] Comment on above: Performed By: #### C BC #### [facility] [address] [place] [address] Dr. Claire Mayes Monocytes/100 WBC (Bld) 4.7 % Normal 1.7-12.0 [facility] Comment on above: Performed By: #### C BC #### [facility] [address] [place] [address] Dr. Claire Mayes NEUT # 11.3 103/ul Critically high 1.4-6.5 [facility] Comment on above: Performed By: #### C BC #### [facility] [address] [place] [address] Dr. Claire Mayes Neutrophils/100 WBC (Bld) 73.0 % Normal 43.0-75.0 [facility] Comment on above: Performed By: #### C BC #### [facility] [address] [place] [address] Dr. Claire Mayes Platelet mean volume (Bld) [Entitic vol] 10.8 fL Normal 9.5-13.5 [facility] Comment on above: Performed By: #### C BC #### [facility] [address] [place] [address] Dr. Claire Mayes PLT 233 103/ul Normal 150-[address] [facility] Comment on above: Performed By: #### C BC #### [facility] [address] [place] [address] Dr. Claire Mayes RBC 3.91 106/ul Critically low 4.20-5.40 [facility] Comment on above: Performed By: #### C BC #### [facility] [address] [place] [address] Dr. Claire Mayes WBC 15.5 103/ul Critically high 4.0-11.0 [facility] Comment on above: Performed By: #### C BC #### [facility] [address] [place] [address] Dr. Claire Mayes [facility]-0 6-2022 SARS-CoV-2 (COVID-19) RNA FERDINAND+probe Ql (Unsp spec) [...] for this test is supported by the [employer] Developer of Health and Human Service's declaration [...] [facility] [address] [place] [address] Dr. Claire Mayes DRUG SCREEN RAPID (URINE)on 02-18-2022 AMP Negative Normal NEGATIVE [facility] Comment on above: Performed By: #### D RUGRPD #### [facility] [address] [place] [address] Dr. Claire Mayes BAR Negative Normal NEGATIVE [facility] Comment on above: Performed By: #### D RUGRPD #### [facility] [address] [place] [address] Dr. Claire Mayes BUP Negative Normal NEGATIVE [facility] Comment on above: Performed By: #### D RUGRPD #### [facility] [address] [place] [address] Dr. Claire Mayes BZO Negative Normal NEGATIVE [facility] Comment on above: Performed By: #### D RUGRPD #### [facility] [address] [place] [address] Dr. Claire Mayes KIT Negative Normal NEGATIVE [facility] Comment on above: Performed By: #### D RUGRPD #### [facility] [address] [place] [address] Dr. Claire Mayes CUT-OFFS SEE BELOW Normal [facility] Comment on above: Result Comment: AMP (Amphetamine): [...] [facility] [address] [place] [address] Dr. Claire Mayes DRUG CUT HEADER DRUG CLASS TEST SYST EM CUT-OFF CONCENTRATIONS ARE FOLLOWS: Normal [facility] Comment on above: Performed By: #### D RUGRPD #### [facility] [address] [place] [address] Dr. Claire Mayes mAMP Negative Normal NEGATIVE [facility] Comment on above: Performed By: #### D RUGRPD #### [facility] [address] [place] [address] Dr. Claire Mayes MTD Negative Normal NEGATIVE [facility] Comment on above: Performed By: #### D RUGRPD #### [facility] [address] [place] [address] Dr. Claire Mayes OPI Negative Normal NEGATIVE [facility] Comment on above: Performed By: #### D RUGRPD #### [facility] [address] [place] [address] Dr. Claire Mayes OXY Negative Normal NEGATIVE [facility] Comment on above: Performed By: #### D RUGRPD #### [facility] [address] [place] [address] Dr. Claire Mayes PCP Negative Normal NEGATIVE [facility] Comment on above: Performed By: #### D RUGRPD #### [facility] [address] [address] [address] Claire Mayes PPX Negative Normal NEGATIVE [facility] Comment on above: Performed By: #### D RUGRPD #### [facility] [address] [address] [address] Claire Mayes TCA Negative Normal NEGATIVE [facility] Comment on above: Performed By: #### D RUGRPD #### [facility] [address] [address] [address] Claire Mayes THC Negative Normal NEGATIVE [facility] Comment on above: Performed By: #### D RUGRPD #### [facility] [address] [address] [address] Claire Mayes TYPE AND SCREENon 02-18-2022 TYPE AND SCREEN Negative Normal [facility] Comment on above: Performed By: #### T NS #### [facility] [address] [place] [address] Dr. Claire Mayes US PREG BIOPHY W [...] 16:40 Normal [facility] GROUP B STREP CULTUREon 01-14 S. agalactiae Ag Ql (Unsp spec) Culture Observations: Beta Strep called to Belgica Lange at office 02/04/22 @[address] [place] [address] Isolate 1 Streptococcus agalactiae Heavy growth of ORGANISM 1 Streptococcus agalactiae ANTIBIOTIC M.I.C RX STATUS Benzylpenicillin <=0.06 S F Ampicillin <=0.25 S F Cefotaxime <=0.12 S F Ceftriaxone <=0.12 S F Levofloxacin 0.5 S F Erythromycin 2 R F Clindamycin <=0.25 S F Linezolid <=2 S F Vancomycin 0.5 S F Tetracycline >=16 R F Normal [facility] Comment on above: Performed By: #### G BSCX #### [facility] [address] [place] [address] Dr. Claire Mayes US PREG BIOPHY W [...] 16:02 Normal [facility] LMPon 06-19-2021 Last menstrual period start date 29May2021 ZO-TRDFH-Woslf n 310 IVF Work Phone: DESTINATION SPECIALIST - Office Visiton DESTINATION SPECIALIST - Office Visit Diagnoses/Problems Assessed Irregular menses (626.4) (N92.6) Female infertility (628.9) (N97.9) Protein S deficiency (289.81) (D68.59) Occupation [employer] ED Provider Impressions 30 year-old desires [...] ] Imaging: Saline US, can do at [place] [x ] Vitamin D, TSH, prolactin [ [...] pandemic. Verbal consent obtained for telemedicine visit. [employer] History of Present IllnessIVF Consult: Patient is [...] Peak E2 1871--> IM P4--> successful IUP MANAGER RELATIONSHIP Hx: LMP: 05/29/21 Menstrual cycles: Have been fairly regular for the past 3 months; 30-35 days Pap smear: 2018, up to date Mammogram: None PMH/Surg Hx/Social Hx: See below Hx of Clotting disorders: Yes- Protein S deficiency Currently on Lovenox 40 mg daily Was on Lovenox 60 mg daily prior to Needs to be on therapeutic dosing when Genetic Screening Hx: [employer] screen negative Partner History: Franklin Ashley 04/09/1990 SA in past year: 2.8 cc 125 mil/mL 69% motility PIZ=213 million (recent IUI sample) Morph from original SA was 2.8% Active Problems Problems 16 weeks gest (more content not included)... Normal [employer] CBC AND DIFFERENTIALon 08-06 % AUTOMATED IMMATURE GRAN 0.3 % Normal 0.0 - 0.9 [facility] Comment on above: Result Comment: Graciela ture Granulocyte Count (IG) includes promyelocytes, myelocytes and metamyelocytes but does not include bands. Percent differential counts (%) should be interpreted in the context of the absolute cell counts (cells/L). Performed By: #### C BCDF #### [address] [place] [address] Basophils (Bld) [#/Vol] 0.09 10*3/uL Normal 0.00 - 0.10 [facility] Comment on above: Performed By: #### C BCDF #### [address] [place] [address] Basophils/100 WBC (Bld) 0.9 % Normal 0.0 - 2.0 [facility] Comment on above: Performed By: #### C BCDF #### [address] [place] [address] Eosinophils (Bld) [#/Vol] 0.23 10*3/uL Normal 0.00 - 0.70 [facility] Comment on above: Performed By: #### C BCDF #### [address] [place] [address] Eosinophils/100 WBC (Bld) 2.4 % Normal 0.0 - 6.0 [facility] Comment on above: Performed By: #### C BCDF #### [address] [place] [address] Erythrocyte distribution width (RBC) [Ratio] 14.3 % Normal 11.5 - 14.5 [facility] Comment on above: Performed By: #### C BCDF #### [address] [place] [address] Hematocrit (Bld) [Volume fraction] 40.4 % Normal 36.0 - 46.0 [facility] Comment on above: Performed By: #### C BCDF #### [address] [place] [address] Hemoglobin (Bld) [Mass/Vol] 12.9 g/dL Normal 12.0 - 16.0 [facility] Comment on above: Performed By: #### C BCDF #### [address] [place] [address] Lymphocytes (Bld) [#/Vol] 2.44 10*3/uL Normal 1.20 - 4.80 [facility] [place] Comment on above: Performed By: #### C BCDF #### [address] [place] [address] Lymphocytes/100 WBC (Bld) 25.7 % Normal 13.0 - 44.0 [facility] Comment on above: Performed By: #### C BCDF #### [address] [place] [address] MCHC (RBC) [Mass/Vol] 31.9 g/dL Low 32.0 - 36.0 [facility] Comment on above: Performed By: #### C BCDF #### [address] [place] [address] MCV (RBC) [Entitic vol] 88 fL Normal 80 - 100 [facility] Comment on above: Performed By: #### C BCDF #### [address] [place] [address] Monocytes (Bld) [#/Vol] 0.55 10*3/uL Normal 0.10 - 1.00 [facility] Comment on above: Performed By: #### C BCDF #### [address] [place] [address] Monocytes/100 WBC (Bld) 5.8 % Normal 2.0 - 10.0 [facility] Comment on above: Performed By: #### C BCDF #### [address] [place] [address] Neutrophils (Bld) [#/Vol] 6.15 10*3/uL Normal 1.20 - 7.70 [facility] Comment on above: Performed By: #### C BCDF #### [address] [place] [address] Neutrophils/100 WBC (Bld) 64.9 % Normal 40.0 - 80.0 [facility] Comment on above: Performed By: #### C BCDF #### [address] [place] [address] Platelets (Bld) [#/Vol] 410 10*3/uL Normal 150 - 450 [facility] Comment on above: Performed By: #### C BCDF #### [address] [place] [address] RBC (Bld) [#/Vol] 4.58 x10E12/L Normal 4.00 - 5.20 [facility] Comment on above: Performed By: #### C BCDF #### [address] [place] [address] WBC (Bld) [#/Vol] 9.5 10*3/uL Normal 4.4 - 11.3 [facility] Comment on above: Performed By: #### C BCDF #### [address] [place] [address] DESTINATION SPECIALIST - Visiton 08-06-2020 DESTINATION SPECIALIST - Visit Chief Complaint The patient is [...] with LMWH and has follow-up with her Electrotype Servicer 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 Reports her asthma is stable. [...] or homicidal ideation Vitals Vital Signs Recorded: [id number] 01:08PM Heart Rate62 Uykcziuj577 Ixsmveton51 Height5 ft 2 in Veygyf537 lb BMI Netsaspqad66.28 BSA Calculated1.79 Tobacco Useb) No Fall Screeninga) [...] ongoing well-woman care with her current local Filing Writer. She has Hematology follow-up today following our [...] Aug 06 2020 2:00PM EST (Author) Normal [facility] Complete Blood Count + Diffe marc 06-27-2020 Basophils/100 WBC (Bld) 0.5 % 0.0 - 2.0 AZ-LRZKC-Potpx[address] Work Phone: Eosinophils (Bld) [#/Vol] 0.24 {x10E9/L} See Below ZV-BABZH-Nlagt[address] Work Phone: Comment on above: Reference Range: 0.0 0 - 0.70 Eosinophils/100 WBC (Bld) 1.1 % 0.0 - 6.0 PU-QQUVS-Qdogg[address] Work Phone: Erythrocyte distribution width (RBC) [Ratio] 15.0 % above high threshold See Below OU-GLTJZ-Gwqla[address] Work Phone: Comment on above: Reference Range: 11. 5 - 14.5 Hematocrit (Bld) [Volume fraction] 30.0 % below low threshold See Below BV-GEFRU-Uzkhp[address] Work Phone: Comment on above: Reference Range: 36. 0 - 46.0 Hemoglobin (Bld) [Mass/Vol] 9.8 g/dL below low threshold See Below UP-LTMHQ-Sfeyk[address] Work Phone: Comment on above: Reference Range: 12. 0 - 16.0 Lymphocytes (Bld) [#/Vol] 2.25 {x10E9/L} See Below ZH-ZEQFC-Ydhhm wn 2nd Fl Work Phone: Comment on above: Reference Range: 1.2 0 - 4.80 Lymphocytes/100 WBC (Bld) 10.4 % See Below TF-JMVID-Fxpxe wn 2nd Fl Work Phone: Comment on above: Reference Range: 13. 0 - 44.0 MCHC (RBC) [Mass/Vol] 32.7 g/dL See Below OJ-OEEVY-Ttwpi wn 2nd Fl Work Phone: Comment on above: Reference Range: 32. 0 - 36.0 MCV (RBC) [Entitic vol] 91 fL 80 - 100 WI-DMFQE-Taahd wn 2nd Fl Work Phone: Monocytes (Bld) [#/Vol] 0.84 {x10E9/L} See Below GL-UONFB-Ueguj wn 2nd Fl Work Phone: Comment on above: Reference Range: 0.1 0 - 1.00 Monocytes/100 WBC (Bld) 3.9 % 2.0 - 10.0 XS-YKSFB-Vvpee wn 2nd Fl Work Phone: Neutrophils/100 WBC (Bld) 82.7 % See Below JU-BDGXW-Yhnzd wn 2nd Fl Work Phone: Comment on above: Reference Range: 40. 0 - 80.0 Platelets (Bld) [#/Vol] 225 {x10E9/L} 150 - 450 ZD-MUMGE-Rsimn wn 2nd Fl Work Phone: RBC (Bld) [#/Vol] 3.31 {x10E12/L} below low threshold See Below MD-HEFPH-Guhdk [facility] Fl Work Phone: Comment on above: Reference Range: 4.0 0 - 5.20 WBC (Bld) [#/Vol] 0.0 {/100_WBC} 0.0-0.0 MG- OBGYN[address] Fl Work Phone: WBC (Bld) [#/Vol] 21.6 {x10E9/L} above high threshold 4.4 - 11.3 JN-OXJLF-Hxppz wn 2nd Fl Work Phone: Complete Blood Count + Differential 0.11 {x10E9/L} above high threshold See Below SC-YAVPG-Hrhfa[address] Work Phone: Comment on above: Reference Range: 0.0 0 - 0.10 Complete Blood Count + Differential 1.4 % above high threshold 0.0 - 0.9 VW-WRZPV-Rmlns[address] Work Phone: Comment on above: Immature Granulocyte Count (IG) includes promyelocytes, myelocytes and metamyelocytes but does not include bands. Percent differential counts (%) should be interpreted in the context of the absolute cell counts (cells/L). Complete Blood Count + Differential 17.85 {x10E9/L} above high threshold See Below MO-ZCLRH-Sizge[address] Work Phone: Comment on above: Reference Range: 1.2 0 - 7.70 Hematologyon 06-26-2020 Hematocrit (Bld) [Volume fraction] 30.5 % below low threshold See Below OF-BBJLT-Zmfdm wn 2nd Fl Work Phone: Comment on above: Reference Range: 36. 0 - 46.0 Hemoglobin (Bld) [Mass/Vol] 10.7 g/dL below low threshold See Below MG-YCRCL-Aiafz[address] Work Phone: Comment on above: Reference Range: 12. 0 - 16.0 MCV (RBC) [Entitic vol] 84 fL 80 - 100 YP-MFTQR-Efuim[address] Work Phone: Platelets (Bld) [#/Vol] 258 {x10E9/L} 150 - 450 IZ-BJBME-Bvhre[address] Work Phone: RBC (Bld) [#/Vol] 3.62 {x10E12/L} below low threshold See Below VT-POOBY-Lhwyd wn 2nd Fl Work Phone: Comment on above: Reference Range: 4.0 0 - 5.20 WBC (Bld) [#/Vol] 0.0 {/100_WBC} 0.0-0.0 MG- OBGYN-Midto wn 2nd Fl Work Phone: WBC (Bld) [#/Vol] 35.7 {x10E9/L} above high threshold 4.4 - 11.3 NE-YMAEI-Kkysb wn 2nd Fl Work Phone: Otheron 06-26-2020 Erythrocyte distribution width (RBC) [Ratio] 14.6 % above high threshold See Below SO-ZZNJE-Zzhuu wn 2nd Fl Work Phone: Comment on above: Reference Range: 11. 5 - 14.5 MCHC (RBC) [Mass/Vol] 35.1 g/dL See Below YB-VAKVR-Dmqjw wn 2nd Fl Work Phone: Comment on [...] 3.5 cm, located 1.0 cm from themargin. Distance Learning Program Coordinator sections are submitted in 5 cassettes.AXQ/LMPSummary of Cassettes:Specimen Label SiteA 1 umbilical cord sections 2 membrane rolls 3 placental parenchyma, umbilical cord insertion site 4 placental parenchyma 5 placental parenchyma, lesionaxq/06/26/2020 JK-WKVRU-Chkyp wn 2nd Fl Work Phone: Coronavirus 2019 RNA by PCR, Symptomaticon 06-25-2020 Coronavirus 2019 RNA by PCR, Symptomatic NOT DETECTED See Below FW-LTYKX-Knabp wn 2nd Pr Work Phone: Comment on above: SOURCE: Nasal, [...] this test method. Fact sheet for providers: www.fda.gov/media/683253/downloadFact sheet for patients: www.fda.gov/media/954362/downloadThis test has received FDA Emergency Use Authorization (EUA) and has been verified by [facility] ([facility]). This test is only authorized for the duration of time that circumstances exist to justify the authorization of the emergency use of in vitro diagnostic tests for the detection of SARS-CoV-2 virus and/or diagnosis of COVID-19 infection under section 564(b)(1) of the Act, 21 U.S.C. 360bbb-3(b)(1), unless the authorization is terminated or revoked sooner. [facility] is certified under CLIA-88 as qualified to perform high complexity testing. Testing is performed in the [facility] laboratories located at [address] [place] [address]. Hematologyon 06-25-2020 ABO group Nom (Bld) A [address] Work Phone: Blood group antibody screen Ql Negative [address] Work Phone: Hematocrit (Bld) [Volume fraction] 34.7 % below low threshold See Below [address] Work Phone: Comment on above: Reference Range: 36. 0 - 46.0 Hemoglobin (Bld) [Mass/Vol] 11.6 g/dL below low threshold See Below [address] Work Phone: Comment on above: Reference Range: 12. 0 - 16.0 MCV (RBC) [Entitic vol] 90 fL 80 - [address] Work Phone: Platelets (Bld) [#/Vol] 268 {x10E9/L} 150 - [address] Work Phone: RBC (Bld) [#/Vol] 3.85 {x10E12/L} below low threshold See Below WD-WJINW-Vxqet[address] Work Phone: Comment on above: Reference Range: 4.0 0 - 5.20 Rh immune globulin screen (Bld) [Interp] Positive VH-ICEQK-Xuulj[address] Work Phone: WBC (Bld) [#/Vol] 0.0 {/100_WBC} 0.0-0.0 MG- OBGYN[address] Work Phone: WBC (Bld) [#/Vol] 15.5 {x10E9/L} above high threshold 4.4 - 11.3 IH-UEIFA-Kjkeq[address] Work Phone: Otheron 06-25-2020 Erythrocyte distribution width (RBC) [Ratio] 14.4 % See Below MF-FKAZU-Lfhyg[address] Work Phone: Comment on above: Reference Range: 11. 5 - 14.5 MCHC (RBC) [Mass/Vol] 33.4 g/dL See Below VW-JGZWT-Dldyx[address] Work Phone: Comment on above: Reference Range: 32. 0 - 36.0 SYPHILIS SCREENING WITH REFL EXon 06-25-2020 T. pallidum IgG+IgM IA Ql (S) NONREACTIVE See Below [address] Work Phone: Comment on above: SOURCE: Reference Ra nge: NONREACTIVENo significant level of Treponema pallidum antibody detected. Repeat testing in 2 to 4 weeks may be considered if early infection or incubating syphilis infection is suspected. Imm/Pathon 06-07-2020 Bacteria identified Aer cx Nom (Genital specimen) PATIENT: KIARA [place]SHLEY [place] [facility] [id number] : 89 AGE: SEX: F ORDERED BY: PARAS GUEVARA: VAGINAL COLLECTED: 06/07/20 09:36ANTIBIOTICS AT [facility].: RECEIVED : 06/08/20 07:27SITE: VAGINAL R E S U L T S GROUP B STREP SCREEN PRELIM 06/09/20 08:35 CULTURE IN PROGRESS. DE-NPWIE-NKW [address] [place] Work Phone: Bacteria identified Aer cx Nom (Genital specimen) PATIENT: KIARA ASHLEY [place] [facility] [place] [id number] : 89 AGE: SEX: F ORDERED BY: PARAS GUEVARA: VAGINAL COLLECTED: 06/07/20 09:36ANTIBIOTICS AT [place].: RECEIVED : 06/08/20 07:27SITE: VAGINAL R E S U L T S GROUP B STREP SCREEN FINAL 06/10/20 11:54 NEGATIVE FOR GROUP B BETA STREP. WD-PTLTT-Taulp wn 2nd Fl Work Phone: Otheron 06-07-2020 [...] growth-No malformations were identified on a limited survey-[facility] 06/22 The patient is aware [...] signed by: RILEY TREVIÑO 06/07/20 09:33 Normal KO-AFWJK-FIP [address] [place] Work Phone: Comment on above: ORDER REVISED TO A O B FOLLOW UP OR REPEAT SCAN BY RADIOLOGIST; Original Order Number: [id number] CBC AND DIFFERENTIALon 04-24 % AUTOMATED IMMATURE GRAN 1.9 % High 0.0 - 0.9 [facility] Comment on above: Result Comment: Graciela ture Granulocyte Count (IG) includes promyelocytes, myelocytes and metamyelocytes but does not include bands. Percent differential counts (%) should be interpreted in the context of the absolute cell counts (cells/L). Performed By: #### C BCDF #### [address] [place] [address] Basophils (Bld) [#/Vol] 0.08 10*3/uL Normal 0.00 - 0.10 [facility] Comment on above: Performed By: #### C BCDF #### [address] [place] [address] Basophils/100 WBC (Bld) 0.5 % Normal 0.0 - 2.0 [facility] Comment on above: Performed By: #### C BCDF #### [address] [place] [address] Eosinophils (Bld) [#/Vol] 0.22 10*3/uL Normal 0.00 - 0.70 [facility] Comment on above: Performed By: #### C BCDF #### [address] [place] [address] Eosinophils/100 WBC (Bld) 1.5 % Normal 0.0 - 6.0 [facility] Comment on above: Performed By: #### C BCDF #### [address] [place] [address] Erythrocyte distribution width (RBC) [Ratio] 14.0 % Normal 11.5 - 14.5 [facility] Comment on above: Performed By: #### C BCDF #### [address] [place] [address] Hematocrit (Bld) [Volume fraction] 35.6 % Low 36.0 - 46.0 [facility] Comment on above: Performed By: #### C BCDF #### [address] [place] [address] Hemoglobin (Bld) [Mass/Vol] 11.8 g/dL Low 12.0 - 16.0 [facility] Comment on above: Performed By: #### C BCDF #### [address] [place] [address] Lymphocytes (Bld) [#/Vol] 2.38 10*3/uL Normal 1.20 - 4.80 [facility] Comment on above: Performed By: #### C BCDF #### [address] [place] [address] Lymphocytes/100 WBC (Bld) 16.0 % Normal 13.0 - 44.0 [facility] Comment on above: Performed By: #### C BCDF #### [address] [place] [address] MCHC (RBC) [Mass/Vol] 33.1 g/dL Normal 32.0 - 36.0 [facility] Comment on above: Performed By: #### C BCDF #### [address] [place] [address] MCV (RBC) [Entitic vol] 92 fL Normal 80 - 100 [facility] Comment on above: Performed By: #### C BCDF #### [address] [place] [address] Monocytes (Bld) [#/Vol] 0.74 10*3/uL Normal 0.10 - 1.00 [facility] Comment on above: Performed By: #### C BCDF #### [address] [place] [address] Monocytes/100 WBC (Bld) 5.0 % Normal 2.0 - 10.0 [facility] Comment on above: Performed By: #### C BCDF #### [address] [place] [address] Neutrophils (Bld) [#/Vol] 11.17 10*3/uL High 1.20 - 7.70 [facility] Comment on above: Performed By: #### C BCDF #### [address] [place] [address] Neutrophils/100 WBC (Bld) 75.1 % Normal 40.0 - 80.0 [facility] Comment on above: Performed By: #### C BCDF #### [address] [place] [address] Platelets (Bld) [#/Vol] 285 10*3/uL Normal 150 - 450 [facility] Comment on above: Performed By: #### C BCDF #### [address] [place] [address] RBC (Bld) [#/Vol] 3.89 x10E12/L Low 4.00 - 5.20 [facility] Comment on above: Performed By: #### C BCDF #### [address] [place] [address] WBC (Bld) [#/Vol] 14.9 10*3/uL High 4.4 - 11.3 [facility] Comment on above: Performed By: #### C BCDF #### [address] [place] [address] COMPREHENSIVE PANELon 2019 ALP [Catalytic activity/Vol] 79 U/L Normal 33 - 110 [facility] Comment on above: Performed By: #### C MP #### [address] [place] [address] [place] [id number] [place] [address] ALT [Catalytic activity/Vol] 7 U/L Normal 7 - 45 [facility] Comment on above: Result Comment: Melida ents treated with Sulfasalazine may generate falsely decreased results for ALT. Performed By: #### C MP #### [address] [place] [address] [facility] [address] [place] [address] AST [Catalytic activity/Vol] 13 U/L Normal 9 - 39 [facility] Comment on above: Performed By: #### C MP #### [address] [place] [address] [place] [address] Bilirubin [Mass/Vol] 0.3 mg/dL Normal 0.0 - 1.2 [facility] Comment on above: Performed By: #### C MP #### [address] [place] [address] [place] [address] Protein [Mass/Vol] 5.9 g/dL Low 6.4 - 8.2 [facility] Comment on above: Performed By: #### C MP #### [address] [place] [address] [place] [address] Anion gap [Moles/Vol] 12 mmol/L Normal 10 - 20 [facility] Comment on above: Performed By: #### C MP #### [address] [place] [address] [place] [address] Chloride [Moles/Vol] 106 mmol/L Normal 98 - 107 [facility] Comment on above: Performed By: #### C MP #### [address] [place] [address] [place] [address] Potassium [Moles/Vol] 3.7 mmol/L Normal 3.5 - 5.3 [facility] Comment on above: Performed By: #### C MP #### [address] [place] [address] [place] [address] Sodium [Moles/Vol] 137 mmol/L Normal 136 - 145 [facility] Comment on above: Performed By: #### C MP #### [address] [place] [address] [place] [address] Calcium [Mass/Vol] 9.2 mg/dL Normal 8.6 - 10.3 [facility] Comment on above: Performed By: #### C MP #### [address] [place] [address] [place] [address] Glucose [Mass/Vol] 95 mg/dL Normal 74 - 99 [facility] Comment on above: Performed By: #### C MP #### [address] [place] [address] [place] [address] Urea nitrogen [Mass/Vol] 7 mg/dL Normal 6 - 23 [facility] Comment on above: Performed By: #### C MP #### [address] [place] [address] [place] [address] Albumin [Mass/Vol] 3.4 g/dL Normal 3.4 - 5.0 [facility] Comment on above: Performed By: #### C MP #### [address] [place] [address] [place] [address] Creatinine [Mass/Vol] 0.70 mg/dL Normal 0.50 - 1.05 [facility] Comment on above: Performed By: #### C MP #### [address] [place] [address] [place] [address] GFR- AM. >60 Normal >60 [facility] Comment on above: Result Comment: CALC ULATIONS OF ESTIMATED GFR ARE PERFORMED USING THE MDRD STUDY EQUATION FOR THE IDMS-TRACEABLE CREATININE METHODS. CLIN CHEM 2007;53:766-72 Performed By: #### C MP #### [address] [place] [address] [place] [address] GFR-NON AM. >60 Normal >60 [facility] Comment on above: Performed By: #### C MP #### [address] [place] [address] [place] [address] HCO3 (Bld) [Moles/Vol] 23 mmol/L Normal 21 - 32 [facility] Comment on above: Performed By: #### C MP #### [address] [place] [address] [place] [address] FERRITINon 04-24-2020 Ferritin [Mass/Vol] 8 ug/L Normal 8 - 150 [facility] Comment on above: Performed By: #### F ERRI #### [address] [place] [address] IRON + TIBCon 04-24-2020 % SATURATION 14 % Low 25 - 45 [facility] Comment on above: Performed By: #### I RONT #### [address] [place] [address] Iron [Mass/Vol] 65 ug/dL Normal 35 - 150 [facility] Comment on above: Performed By: #### I RONT #### [address] [place] [address] TIBC 449 ug/dL High 240 - 445 [facility] Comment on above: Performed By: #### I RONT #### [address] [place] [address] Complete Blood Count + Diffe rentialon 12-25-2019 Basophils/100 WBC (Bld) 1.0 % 0.0 - 2.0 YC-WZPTA-URH [address] [place] Work Phone: Eosinophils (Bld) [#/Vol] 0.37 {x10E9/L} See Below ZK-IDGNB-ZFB [address] [place] Work Phone: Comment on above: Reference Range: 0.0 0 - 0.70 Eosinophils/100 WBC (Bld) 3.0 % 0.0 - 6.0 EP-RQGDK-ABK [address] [place] Work Phone: Erythrocyte distribution width (RBC) [Ratio] 13.4 % See Below HY-VPVOH-SEA [address] [place] Work Phone: Comment on above: Reference Range: 11. 5 - 14.5 Hematocrit (Bld) [Volume fraction] 41.8 % See Below UQ-VOHEG-LPX [address] [place] Work Phone: Comment on above: Reference Range: 36. 0 - 46.0 Hemoglobin (Bld) [Mass/Vol] 13.6 g/dL See Below EC-NVXUO-NCJ [address] [place] Work Phone: Comment on above: Reference Range: 12. 0 - 16.0 Lymphocytes (Bld) [#/Vol] 2.52 {x10E9/L} See Below XM-FUGHW-CRC [address] [place] Work Phone: Comment on above: Reference Range: 1.2 0 - 4.80 Lymphocytes/100 WBC (Bld) 20.2 % See Below JD-YLKTV-NEA [address] [place] Work Phone: Comment on above: Reference Range: 13. 0 - 44.0 MCHC (RBC) [Mass/Vol] 32.5 g/dL See Below JV-OWHWR-XGO [address] [place] Work Phone: Comment on above: Reference Range: 32. 0 - 36.0 MCV (RBC) [Entitic vol] 95 fL 80 - 100 LD-MNHAT-MYP [address] [place] Work Phone: Monocytes (Bld) [#/Vol] 0.58 {x10E9/L} See Below AR-VELDV-SSI [address] [place] Work Phone: Comment on above: Reference Range: 0.1 0 - 1.00 Monocytes/100 WBC (Bld) 4.6 % 2.0 - 10.0 RJ-ANPBA-DLW [address] [place] Work Phone: Neutrophils/100 WBC (Bld) 70.6 % See Below FT-HRKXA-KPN [address] [place] Work Phone: Comment on above: Reference Range: 40. 0 - 80.0 Platelets (Bld) [#/Vol] 372 {x10E9/L} 150 - 450 DR-OGHIU-OQP [address] [place] Work Phone: RBC (Bld) [#/Vol] 4.40 {x10E12/L} See Below MG -OBGYN-MAC [address] [place] Work Phone: Comment on above: Reference Range: 4.0 0 - 5.20 WBC (Bld) [#/Vol] 0.0 {/100_WBC} 0.0-0.0 MG- OBGYN-MAC [address] [place] Work Phone: WBC (Bld) [#/Vol] 12.7 {x10E9/L} above high threshold 4.4 - 11.3 HD-CXYKO-CWN [address] [place] Work Phone: Comment on above: SOURCE: Complete Blood Count + Differential 8.81 {x10E9/L} above high threshold See Below UL-RZEQE-STC [address] [place] Work Phone: Comment on above: Reference Range: 1.2 0 - 7.70 Complete Blood Count + Differential 0.6 % 0.0 - 0.9 HB-KUFIB-MJD [address] [place] Work Phone: Comment on above: Percent differential counts (%) should be interpreted in the context of the absolute cell counts (cells/L). Complete Blood Count + Differential 0.13 {x10E9/L} above high threshold See Below ZG-LAKQS-QST [address] [place] Work Phone: Comment on above: Reference Range: 0.0 0 - 0.10 Cult, Urineon 12-25-2019 Bacteria identified Cx Nom (U) PATIENT: KIARA ASHLEY LOCATION: [id number] BILL#: [id number] : 89 AGE: SEX: F ORDERED BY: PARAS GUEVARA: URINE COLLECTED: 12/25/19 09:41ANTIBIOTICS AT [place].: RECEIVED : 12/25/19 17:06SITE: Clean Catch/Voided R E S U L T S URINE CULTURE,BACTERIAL FINAL 12/26/19 10:21 NO SIGNIFICANT GROWTH. XR-AUPAW-IZR [address] [place] Work Phone: Hematologyon 12-25-2019 ABO group Nom (Bld) A PL-QRJTA-FWG [address] [place] Work Phone: Blood group antibody screen Ql Negative SS-BMCVZ-QMS [address] [place] Work Phone: Rh immune globulin screen (Bld) [Interp] Positive WJ-CGPLM-YMB [address] [place] Work Phone: Hepatitis B Surface Antigeno n 12-25-2019 Hepatitis B Surface Antigen NONREACTIVE See Below JB-IGUKY-LPX [address] [place] Work Phone: Comment on above: [...] Hepatitis C Antibody Test NON-REACTIVE See Below GQ-XSGOR-XES [address] [place] Work Phone: Comment on above: SOURCE: Reference Ra nge: NONREACTIVE Patients receiving more than 5 mg/day of biotin may have interference in test results. A sample should be taken no sooner than eight hours after previous dose. Contact the testing laboratory for additional information. Metabolic Panelon 12-25-2019 ALP [Catalytic activity/Vol] 67 U/L 33 - 110 YW-GIZHV-DZS [address] [place] Work Phone: Anion gap [Moles/Vol] 15 mmol/L 10 - 20 FC-EWUNR-SBP [address] [place] Work Phone: Bilirubin [Mass/Vol] 0.3 mg/dL 0.0 - 1.2 MI-FLHQP-VND [address] [place] Work Phone: Calcium [Mass/Vol] 9.6 mg/dL 8.6 - 10.6 LC-JBWWG-WLB [address] [place] Work Phone: Chloride [Moles/Vol] 104 mmol/L 98 - 107 PZ-BRQIC-BFT [address] [place] Work Phone: CO2 [Moles/Vol] 21 mmol/L 21 - 32 MG-OBGYN- MAC [address] [place] Work Phone: Creatinine [Mass/Vol] 0.69 mg/dL See Below PX-SPPQY-MLC [address] [place] Work Phone: Comment on above: Reference Range: 0.5 0 - 1.05 Glucose [Mass/Vol] 83 mg/dL 74 - 99 GC-LLRBH-PBZ [address] [place] Work Phone: Comment on above: SOURCE: Potassium [Moles/Vol] 4.1 mmol/L 3.5 - 5.3 SF-JHLHV-DZT [address] [place] Work Phone: Protein [Mass/Vol] 6.2 g/dL below low threshold 6.4 - 8.2 FO-QRPZB-HFU [address] [place] Work Phone: Sodium [Moles/Vol] 136 mmol/L 136 - 145 OC-XSGZH-JPC [address] [place] Work Phone: Urea nitrogen [Mass/Vol] 9 mg/dL 6 - 23 WT-GSDLZ-FNE [address] [place] Work Phone: Otheron 12-25-2019 Albumin BCP dye [Mass/Vol] 3.9 g/dL 3.4 - 5.0 FV-TABZQ-CSV [address] [place] Work Phone: ALT With P-5'-P [Catalytic activity/Vol] 8 U/L 7 - 45 XT-JDRTO-BOZ [address] [place] Work Phone: Comment on above: Patients treated wit h Sulfasalazine may generate falsely decreased results for ALT. AST With P-5'-P [Catalytic activity/Vol] 11 U/L 9 - 39 QY-KXCUX-ZJL [address] [place] Work Phone: NONE XX-OAJMF-MIU [address] [place] Work Phone: >60 >60 SQ-GWQDW-HNR [address] [place] Work Phone: Comment on above: CALCULATIONS OF MARÍA MATED GFR ARE PERFORMED USING THE MDRD STUDY EQUATION FOR THE IDMS-TRACEABLE CREATININE METHODS. CLIN CHEM 2007;53:766-72 SYPHILIS SCREENING WITH REFL EXon 12-25-2019 T. pallidum IgG+IgM IA Ql (S) NONREACTIVE See Below ZH-ECZMF-ZSK [address] [place] Work Phone: Comment on above: SOURCE: Reference Ra nge: NONREACTIVENo significant level of Treponema pallidum antibody detected. Repeat testing in 2 to 4 weeks may be considered if early infection or incubating syphilis infection is suspected. CBC AND DIFFERENTIALon 11-21 % AUTOMATED IMMATURE GRAN 0.9 % Normal 0.0 - 0.9 [facility] Comment on above: Result Comment: Perc ent differential counts (%) should be interpreted in the context of the absolute cell counts (cells/L). Performed By: #### C BCDF #### [address] [place] [address] Basophils (Bld) [#/Vol] 0.16 10*3/uL High 0.00 - 0.10 [facility] Comment on above: Performed By: #### C BCDF #### [address] [place] [address] Basophils/100 WBC (Bld) 1.2 % Normal 0.0 - 2.0 [facility] Comment on above: Performed By: #### C BCDF #### [address] [place] [address] Eosinophils (Bld) [#/Vol] 0.80 10*3/uL High 0.00 - 0.70 [facility] Comment on above: Performed By: #### C BCDF #### [address] [place] [address] Eosinophils/100 WBC (Bld) 5.8 % Normal 0.0 - 6.0 [facility] Comment on above: Performed By: #### C BCDF #### [address] [place] [address] Erythrocyte distribution width (RBC) [Ratio] 13.6 % Normal 11.5 - 14.5 [facility] Comment on above: Performed By: #### C BCDF #### [address] [place] [address] Hematocrit (Bld) [Volume fraction] 39.4 % Normal 36.0 - 46.0 [facility] Comment on above: Performed By: #### C BCDF #### [address] [place] [address] Hemoglobin (Bld) [Mass/Vol] 13.0 g/dL Normal 12.0 - 16.0 [facility] Comment on above: Performed By: #### C BCDF #### [address] [place] [address] Lymphocytes (Bld) [#/Vol] 2.24 10*3/uL Normal 1.20 - 4.80 [facility] Comment on above: Performed By: #### C BCDF #### [address] [place] [address] Lymphocytes/100 WBC (Bld) 16.3 % Normal 13.0 - 44.0 [facility] Comment on above: Performed By: #### C BCDF #### [address] [place] [address] MCHC (RBC) [Mass/Vol] 33.0 g/dL Normal 32.0 - 36.0 [facility] Comment on above: Performed By: #### C BCDF #### [address] [place] [address] MCV (RBC) [Entitic vol] 94 fL Normal 80 - 100 [facility] Comment on above: Performed By: #### C BCDF #### [address] [place] [address] Monocytes (Bld) [#/Vol] 0.83 10*3/uL Normal 0.10 - 1.00 [facility] Comment on above: Performed By: #### C BCDF #### [address] [place] [address] Monocytes/100 WBC (Bld) 6.0 % Normal 2.0 - 10.0 [facility] Comment on above: Performed By: #### C BCDF #### [address] [place] [address] Neutrophils (Bld) [#/Vol] 9.60 10*3/uL High 1.20 - 7.70 [facility] Comment on above: Performed By: #### C BCDF #### [address] [place] [address] Neutrophils/100 WBC (Bld) 69.8 % Normal 40.0 - 80.0 [facility] Comment on above: Performed By: #### C BCDF #### [address] [place] [address] Platelets (Bld) [#/Vol] 380 10*3/uL Normal 150 - 450 [facility] Comment on above: Performed By: #### C BCDF #### [address] [place] [address] RBC (Bld) [#/Vol] 4.21 x10E12/L Normal 4.00 - 5.20 [facility] Comment on above: Performed By: #### C BCDF #### [address] [place] [address] WBC (Bld) [#/Vol] 13.8 10*3/uL High 4.4 - 11.3 [facility] Comment on above: Performed By: #### C BCDF #### [address] [place] [address] Complete Blood Count + Diffe rentialon 11-14-2019 Basophils (Bld) [#/Vol] 0.05 {x10E9/L} See Below MP-Reproductiv e Endocrinology- [place] Work Phone: Comment on above: Reference Range: 0.0 0 - 0.10 Basophils/100 WBC (Bld) 0.4 % 0.0 - 2.0 MP-Reproductiv e Endocrinology- [place] Work Phone: Eosinophils (Bld) [#/Vol] 0.89 {x10E9/L} above high threshold See Below MP-Reproductiv e Endocrinology- [place] Work Phone: Comment on above: Reference Range: 0.0 0 - 0.70 Eosinophils/100 WBC (Bld) 7.3 % 0.0 - 6.0 MP-Reproductiv e Endocrinology- [place] Work Phone: Erythrocyte distribution width (RBC) [Ratio] 13.9 % See Below MP-Reproductiv e Endocrinology- [place] Work Phone: Comment on above: Reference Range: 11. 5 - 14.5 Hematocrit (Bld) [Volume fraction] 39.4 % See Below -Reproductiv e Endocrinology- [place] Work Phone: Comment on above: Reference Range: 36. 0 - 46.0 Hemoglobin (Bld) [Mass/Vol] 12.8 g/dL See Below -Reproductiv e Endocrinology- [place] Work Phone: Comment on above: Reference Range: 12. 0 - 16.0 Lymphocytes (Bld) [#/Vol] 2.13 {x10E9/L} See Below MP-Reproductiv e Endocrinology- [place] Work Phone: Comment on above: Reference Range: 1.2 0 - 4.80 Lymphocytes/100 WBC (Bld) 17.5 % See Below MP-Reproductiv e Endocrinology- [place] Work Phone: Comment on above: Reference Range: 13. 0 - 44.0 MCHC (RBC) [Mass/Vol] 32.5 g/dL See Below MP-Reproductiv e Endocrinology- [place] Work Phone: Comment on above: Reference Range: 32. 0 - 36.0 MCV (RBC) [Entitic vol] 95 fL 80 - 100 MP-Reproductiv e Endocrinology- [place] Work Phone: Monocytes (Bld) [#/Vol] 0.60 {x10E9/L} See Below MP-Reproductiv e Endocrinology- [place] Work Phone: Comment on above: Reference Range: 0.1 0 - 1.00 Monocytes/100 WBC (Bld) 4.9 % 2.0 - 10.0 [facility]-Reproductiv [facility]- [place] Work Phone: Neutrophils/100 WBC (Bld) 69.4 % See Below [facility]-Reproductiv e Endocrin[facility]- [place] Work Phone: Comment on above: Reference Range: 40. 0 - 80.0 Platelets (Bld) [#/Vol] 423 {x10E9/L} 150 - 450 MP-Reproductiv e Endocrin[facility]- [place] Work Phone: RBC (Bld) [#/Vol] 4.15 {x10E12/L} See Below [facility] [place] Work Phone: Comment on above: Reference Range: 4.0 0 - 5.20 WBC (Bld) [#/Vol] 12.2 {x10E9/L} above high threshold 4.4 - 11.3 [facility]-Reproductiv e Endocrin[facility]- [place] Work Phone: WBC (Bld) [#/Vol] 0.0 {/100_WBC} [...] high threshold See Below MP-Reproductiv e Endocr[facility]- [place] Work Phone: Comment on above: Reference Range: 1.2 0 - 7.70 Metabolic Panelon 11-14-2019 ALP [Catalytic activity/Vol] 82 U/L 33 - 110 MP-Reproductiv e [facility]- [place] Work Phone: Anion gap [Moles/Vol] 19 mmol/L 10 - 20 MP-Reproductiv e Endocrin[facility]- [place] Work Phone: Bilirubin [Mass/Vol] 0.4 mg/dL 0.0 - 1.2 MP-Reproductiv e Endocrin[facility]- [place] Work Phone: Calcium [Mass/Vol] 9.5 mg/dL 8.6 - 10.6 MP-Reproductiv e Endocrin[facility]- [place] Work Phone: Chloride [Moles/Vol] 100 mmol/L 98 - 107 MP-Reproductiv e Endocrin[facility]- [place] Work Phone: CO2 [Moles/Vol] 20 mmol/L below low threshold 21 - 32 MP-Reproductiv e Endocrin[facility]- [place] Work Phone: Creatinine [Mass/Vol] 0.80 mg/dL See Below MP-Reproductiv e Endocrin[facility]- [place] Work Phone: Comment on above: Reference Range: 0.5 0 - 1.05 Glucose [Mass/Vol] 86 mg/dL 74 - 99 MP-Reproductiv e Endocrinology- [place] Work Phone: Potassium [Moles/Vol] 4.3 mmol/L 3.5 - 5.3 MP-Reproductiv e Endocrin[facility]- [place] Work Phone: Protein [Mass/Vol] 5.8 g/dL below low threshold 6.4 - 8.2 MP-Reproductiv e Endocrinology- [place] Work Phone: Sodium [Moles/Vol] 135 mmol/L below low threshold 136 - 145 [facility] [place] Work Phone: Urea nitrogen [Mass/Vol] 10 mg/dL 6 - 23 MP-Reproductiv e Endocrin[facility]- [place] Work Phone: Otheron 11-14-2019 Albumin BCP dye [Mass/Vol] 3.5 g/dL 3.4 - 5.0 MP-Reproductiv e Endocrinology- [place] Work Phone: ALT With P-5'-P [Catalytic activity/Vol] 17 U/L 7 - 45 [facility] [place] Work Phone: Comment on above: Patients treated wit h Sulfasalazine may generate falsely decreased results for ALT. AST With P-5'-P [Catalytic activity/Vol] 22 U/L 9 - 39 [facility] [place] Work Phone: >60 >60 [facility] [place] Work Phone: Comment on above: CALCULATIONS OF MARÍA MATED GFR ARE PERFORMED USING THE MDRD STUDY EQUATION FOR THE IDMS-TRACEABLE CREATININE METHODS. CLIN CHEM 2007;53:766-72 CBCon 11-09-2019 Erythrocyte distribution width (RBC) [Ratio] 13.7 % See Below RW-MNTBE-Tnoys n 310 [facility] Work Phone: Comment on above: Performed By: #### L H #### [facility] [address] [place] [address] Reference Range: 11. 5 - 14.5 Hematocrit (Bld) [Volume fraction] 41.9 % See Below SL-LEMVB-Lzqpd n 310 [facility] Work Phone: Comment on above: Performed By: #### L H #### [facility] [address] [place] [address] Reference Range: 36. 0 - 46.0 Hemoglobin (Bld) [Mass/Vol] 14.0 g/dL See Below GD-XWWXN-Eaiay n 310 [facility] Work Phone: Comment on above: Performed By: #### L H #### [facility] [address] [place] [address] Reference Range: 12. 0 - 16.0 MCHC (RBC) [Mass/Vol] 33.4 g/dL See Below NH-YVVFU-Abniv n 310 IV[facility] Work Phone: Comment on above: Performed By: #### L H #### [facility] [address] [place] [address] Reference Range: 32. 0 - 36.0 MCV (RBC) [Entitic vol] 94 fL 80 - 100 TA-LWOOB-Rkrzt n 310 IV[facility] Work Phone: Comment on above: Performed By: #### L H #### [facility] [address] [place] [id number] Platelets (Bld) [#/Vol] 411 10*3/uL Normal 150 - [address] [facility] [place] Comment on above: Performed By: #### L H #### [facility] [address] [place] [id number] RBC (Bld) [#/Vol] 4.44 x10E12/L Normal 4.00 - 5.[address] [facility] [place] Comment on above: Performed By: #### L H #### [facility] [address] [place] [id number] WBC (Bld) [#/Vol] 12.4 10*3/uL High 4.4 - 11.3 [facility] Comment on above: Performed By: #### L H #### [facility] [address] [place] [id number] COMPREHENSIVE PANELon 2018 Albumin [Mass/Vol] 3.8 g/dL Normal 3.4 - 5.[address] [facility] [place] Comment on above: Performed By: #### L H #### [facility] [address] [place] [id number] ALP [Catalytic activity/Vol] 51 U/L 33 - 110 PB-HFIHD-Vvenx n 310 IVF Work Phone: Comment on above: Performed By: #### L H #### [facility] [address] [place] [address] ALT [Catalytic activity/Vol] 12 U/L Normal 7 - [address] [facility] [place] Comment on above: Result Comment: Melida ents treated with Sulfasalazine may generate falsely decreased results for ALT. Performed By: #### L H #### [facility] [address] [place] [address] Anion gap [Moles/Vol] 13 mmol/L 10 - 20 ID-QVKRU-Wprbs n 310 IVF Work Phone: Comment on above: Performed By: #### L H #### [facility] [address] [place] [address] AST [Catalytic activity/Vol] 12 U/L Normal 9 - [address] [facility] [place] Comment on above: Performed By: #### L H #### [facility] [address] [place] [address] Bilirubin [Mass/Vol] 0.4 mg/dL 0.0 - 1.2 XQ-EUNIR-Ufviq n 310 IV[facility] Work Phone: Comment on above: Performed By: #### L H #### [facility] [address] [place] [address] Calcium [Mass/Vol] 9.3 mg/dL 8.6 - 10.3 DF-MVNLV-Rgksl n 310 IVF Work Phone: Comment on above: Performed By: #### L H #### [facility] [address] [place] [address] Chloride [Moles/Vol] 102 mmol/L 98 - 107 WZ-MLWTB-Zqiia n 310 IV[facility] Work Phone: Comment on above: Performed By: #### L H #### [facility] [address] [place] [address] Creatinine [Mass/Vol] 0.89 mg/dL See Below LO-HPLKN-Incnb n 310 IVF Work Phone: Comment on above: Performed By: #### L H #### [facility] [address] [place] [id number] Reference Range: 0.5 0 - 1.05 GFR- AM. >60 Normal >[address] [facility] [place] Comment on above: Result Comment: CALC ULATIONS OF ESTIMATED GFR ARE PERFORMED USING THE MDRD STUDY EQUATION FOR THE IDMS-TRACEABLE CREATININE METHODS. CLIN CHEM 2007;53:766-72 Performed By: #### L H #### [facility] [address] [place] [id number] GFR-NON AM. >60 Normal >[address] [facility] [place] Comment on above: Performed By: #### L H #### [facility] [address] [place] [id number] Glucose [Mass/Vol] 74 mg/dL 74 - 99 TH-UTJUD-Zqufp n 310 IVF Work Phone: Comment on above: Performed By: #### L H #### [facility] [address] [place] [id number] HCO3 (Bld) [Moles/Vol] 25 mmol/L Normal 21 - [address] [facility] [place] Comment on above: Performed By: #### L H #### [facility] [address] [place] [id number] Potassium [Moles/Vol] 4.1 mmol/L 3.5 - 5.3 UB-CMQXU-Lxpih n 310 IV[facility] Work Phone: Comment on above: Performed By: #### L H #### [facility] [address] [place] [id number] Protein [Mass/Vol] 6.0 g/dL below low threshold 6.4 - 8.2 SE-MFSKR-Tbwnz n 310 IV[facility] Work Phone: Comment on above: Performed By: #### L H #### [facility] [address] [place] [id number] Sodium [Moles/Vol] 136 mmol/L 136 - 145 LX-VJFQG-Ptoax n 310 IV[facility] Work Phone: Comment on above: Performed By: #### L H #### [facility] [address] [place] [address] Urea nitrogen [Mass/Vol] 11 mg/dL 6 - 23 HF-RVHTS-Ncuky n 310 IVF Work Phone: Comment on above: Performed By: #### L H #### [facility] [address] [place] [address] HCG, Beta Quantitativeon HCG.beta subunit Qn 7102 {mIU/mL} Abnormal NG-OMCVE-Dbppe n 310 IV[facility] Work Phone: Comment on [...] HCG measurement is performed using the Jose Chapin Access Immunoassay which detects intact HCG and free beta HCG subunit. This test is not indicated for use as a tumor marker. HCG testing is performed using a different test methodology at [facility] than other [facility]. Direct result comparison should only be made within the same method. REF VALUESNON FEMALE <5MALES <5 HCG,BETA-QUANTITATIVEon 12- HCG,BETA-QUANTITA TIVE 7102 mIU/mL [facility] [place] Comment on above: Result [...] HCG measurement is performed using the Jose Chapin Access Immunoassay which detects intact HCG and free beta HCG subunit. This test is not indicated for use as a tumor marker. HCG testing is performed using a different test methodology at [facility] than other [facility]. Direct result comparison should only be made within the same method. REF VALUES NON FEMALE <5 MALES <5 Performed By: #### L #### [facility] [address] [place] [address] Hematologyon 11-09-2019 Platelets (Bld) [#/Vol] 411 {x10E9/L} 150 - 450 NU-DRPKD-Upywx n 310 [facility] Work Phone: RBC (Bld) [#/Vol] 4.44 {x10E12/L} See Below MG -OBGYN-Risma n 310 [facility] Work Phone: Comment on above: Reference Range: 4.0 0 - 5.20 WBC (Bld) [#/Vol] 12.4 {x10E9/L} above high threshold 4.4 - 11.3 RJ-GUKOD-Hyfsi n 310 IV[facility] Work Phone: Metabolic Panelon 11-09-2019 CO2 [Moles/Vol] 25 mmol/L 21 - 32 MG-OBGYN- Risma n 310 [facility] Work Phone: Otheron 11-09-2019 Albumin BCP dye [Mass/Vol] 3.8 g/dL 3.4 - 5.0 QW-MPFUQ-Sjvpe n 310 [facility] Work Phone: ALT With P-5'-P [Catalytic activity/Vol] 12 U/L 7 - 45 NQ-EAPUP-Ixwjz n 310 IV[facility] Work Phone: Comment on above: Patients treated wit h Sulfasalazine may generate falsely decreased results for ALT. AST With P-5'-P [Catalytic activity/Vol] 12 U/L 9 - 39 VN-GINOZ-Irhef n 310 [facility] Work Phone: >60 >60 CF-NUGGH-Unvbv n 310 [facility] Work Phone: Comment on [...] HCG measurement is performed using the Jose Chapin Access Immunoassay which detects intact HCG and free beta HCG subunit. This test is not indicated for use as a tumor marker. HCG testing is performed using a different test methodology at [facility] than other [facility]. Direct result comparison should only be made within the same method. REF VALUESNON FEMALE <5MALES <5 HCG,BETA-QUANTITATIVEon 10-15 HCG,BETA-QUANTITA TIVE 240 mIU/mL [facility] [place] Comment on above: Result [...] HCG measurement is performed using the Jose Chapin Access Immunoassay which detects intact HCG and free beta HCG subunit. This test is not indicated for use as a tumor marker. HCG testing is performed using a different test methodology at [facility] than other [facility]. Direct result comparison should only be made within the same method. REF VALUES NON FEMALE <5 MALES <5 Performed By: #### E STRA #### [facility] [address] [place] [address] ESTRADIOLon 10-14-2019 ESTRADIOL 1871 pg/mL Normal [facility] Comment on above: Result Comment: Estr adiol measurement is performed using the Jose Wevod Access Immunoassay. Estradiol testing is performed using a different test methodology at [facility] than other [facility]. Direct result comparison should only be made within the same method. REF VALUES FOLLICULAR PHASE 20-144 MID CYCLE 64-357 LUTEAL PHASE 56-214 POSTMENOPAUSE < 32 PREPUBERTY < 20 MALE 10-18Y < 20 ADULT MALE < 40 Performed By: #### E STRA #### [facility] [address] [place] [address] Estradiol, Serumon 9 E2 [Mass/Vol] 1871 pg/mL MG-OBGYN-Ri sma n 310 IVF Work Phone: Comment on above: Estradiol measuremen t is performed using the Jose Chapin Access Immunoassay. Estradiol testing is performed using a different test methodology at [facility] than other [facility]. Direct result comparison should only be made within the same method.REF VALUESFOLLICULAR PHASE 20-144MID CYCLE 64-357LUTEAL PHASE 56-214POSTMENOPAUSE < 32PREPUBERTY < 20MALE 10-18Y < 20ADULT MALE < 40 PROGESTERONEon 10-14-2019 PROGESTERONE 1.0 ng/mL Normal [facility] [place] Comment on above: Result Comment: Prog esterone is performed using the Jose Wevod Access Immunoassay. Progesterone testing is performed using a different test methodology at [facility] than other [facility]. Direct result comparison should only be made within the same method. REF VALUES MALE <0.2-0.8 FOLLICULAR PHASE <0.2-1.5 LUTEAL PHASE 7.4-15.4 POSTMENOPAUSAL <0.2-0.2 1ST TRIMESTER 12.0-84.0 2ND TRIMESTER 10.2-58.8 3RD TRIMESTER 46.5-160 Performed By: #### E BARBARA #### [facility] [address] [place] [address] Progesterone, Serumon 2018 Progesterone [Mass/Vol] 1.0 ng/mL NY-XXTWZ-Xbadq n 310 IVF Work Phone: Comment on above: Progesterone is perf ormed using the Jose Ryan Access Immunoassay. Progesterone testing is performed using a different test methodology at [facility] than other [facility]. Direct result comparison should only be made within the same method.REF VALUESMALE <0.2-0.8 FOLLICULAR PHASE <0.2-1.5 LUTEAL PHASE 7.4-15.4 POSTMENOPAUSAL <0.2-0.2 1ST TRIMESTER 12.0-84.0 2ND TRIMESTER 10.2-58.8 3RD TRIMESTER 46.5-160 ESTRADIOLon 10-11-2019 ESTRADIOL 284 pg/mL Normal [facility] Comment on above: Result Comment: Estr adiol measurement is performed using the Jose Chapin Access Immunoassay. Estradiol testing is performed using a different test methodology at [facility] than other [facility]. Direct result comparison should only be made within the same method. REF VALUES FOLLICULAR PHASE 20-144 MID CYCLE 64-357 LUTEAL PHASE 56-214 POSTMENOPAUSE < 32 PREPUBERTY < 20 MALE 10-18Y < 20 ADULT MALE < 40 Performed By: #### E STRA #### [facility] [address] [place] [address] Estradiol, Serumon 9 E2 [Mass/Vol] 284 pg/mL MG-OBGYN-Ri [facility] n 310 IVF Work Phone: Comment on above: Estradiol measuremen t is performed using the Jose Ryan Access Immunoassay. Estradiol testing is performed using a different test methodology at [facility] than other [facility]. Direct result comparison should only be made within the same method.REF VALUESFOLLICULAR PHASE 20-144MID CYCLE 64-357LUTEAL PHASE 56-214POSTMENOPAUSE < 32PREPUBERTY < 20MALE 10-18Y < 20ADULT MALE < 40 ESTRADIOLon 10-05-2019 ESTRADIOL 129 pg/mL Normal [facility] Comment on above: Result Comment: Estr adiol measurement is performed using the Jose Ryan Access Immunoassay. Estradiol testing is performed using a different test methodology at [facility] than other [facility]. Direct result comparison should only be made within the same method. REF VALUES FOLLICULAR PHASE 20-144 MID CYCLE 64-357 LUTEAL PHASE 56-214 POSTMENOPAUSE < 32 PREPUBERTY < 20 MALE 10-18Y < 20 ADULT MALE < 40 Performed By: #### E STRA #### [facility] [address] [place] [address] Estradiol, Serumon 9 E2 [Mass/Vol] 129 pg/mL MG-OBGYN-Ri [facility] n 310 IVF Work Phone: Comment on above: Estradiol measuremen t is performed using the Jose Chapin Access Immunoassay. Estradiol testing is performed using a different test methodology at [facility] than other [facility]. Direct result comparison should only be made within the same method.REF VALUESFOLLICULAR PHASE 20-144MID CYCLE 64-357LUTEAL PHASE 56-214POSTMENOPAUSE < 32PREPUBERTY < 20MALE 10-18Y < 20ADULT MALE < 40 PROGESTERONEon 10-05-2019 PROGESTERONE 0.2 ng/mL Normal [facility] Comment on above: Result Comment: Prog esterone is performed using the Jose Ryan Access Immunoassay. Progesterone testing is performed using a different test methodology at [facility] than other [facility]. Direct result comparison should only be made within the same method. REF VALUES MALE <0.2-0.8 FOLLICULAR PHASE <0.2-1.5 LUTEAL PHASE 7.4-15.4 POSTMENOPAUSAL <0.2-0.2 1ST TRIMESTER 12.0-84.0 2ND TRIMESTER 10.2-58.8 3RD TRIMESTER 46.5-160 Performed By: #### E STRA #### [facility] [address] [place] [address] Progesterone, Serumon 2018 Progesterone [Mass/Vol] 0.2 ng/mL YP-IFWVV-Qhzke n 310 IVF Work Phone: Comment on above: Progesterone is perf ormed using the Jose Ryan Access Immunoassay. Progesterone testing is performed using a different test methodology at [facility] than other [facility]. Direct result comparison should only be made within the same method.REF VALUESMALE <0.2-0.8 FOLLICULAR PHASE <0.2-1.5 LUTEAL PHASE 7.4-15.4 POSTMENOPAUSAL <0.2-0.2 1ST TRIMESTER 12.0-84.0 2ND TRIMESTER 10.2-58.8 3RD TRIMESTER 46.5-160 ESTRADIOLon 10-02-2019 ESTRADIOL 357 pg/mL Normal [facility] [place] Comment on above: Result Comment: Estr adiol measurement is performed using the Jose Chapin Access Immunoassay. Estradiol testing is performed using a different test methodology at [facility] than other [facility]. Direct result comparison should only be made within the same method. REF VALUES FOLLICULAR PHASE 20-144 MID CYCLE 64-357 LUTEAL PHASE 56-214 POSTMENOPAUSE < 32 PREPUBERTY < 20 MALE 10-18Y < 20 ADULT MALE < 40 Performed By: #### E STRA #### [facility] [address] [place] [address] Estradiol, Serumon 9 E2 [Mass/Vol] 357 pg/mL MG-OBGYN-Cr ock er 206A IVF Work Phone: Comment on above: Estradiol measuremen t is performed using the Jose Chapin Access Immunoassay. Estradiol testing is performed using a different test methodology at [facility] than other [facility]. Direct result comparison should only be made within the same method.REF VALUESFOLLICULAR PHASE 20-144MID CYCLE 64-357LUTEAL PHASE 56-214POSTMENOPAUSE < 32PREPUBERTY < 20MALE 10-18Y < 20ADULT MALE < 40 LUTEINIZING HORMONEon 2018 LUTEINIZING HORMONE 14.7 IU/L Normal [facility] [place] Comment on above: Result Comment: Lute inizing Hormone [LH] is performed using the Jose Wevod Access Immunoassay. LH testing is performed using a different test methodology at [facility] than other [facility]. Direct result comparison should only be made within the same method. REF VALUES FOLLICULAR PHASE 1.5-10.0 MID-CYCLE 13.0-72.0 LUTEAL PHASE 0.5-13.0 MENOPAUSE 15.0-65.0 PREPUBERTY 0- 3.0 CHILDREN 0- 6.0 ADULT MALE 1.0- 9.0 Performed By: #### E STRA #### [facility] [address] [place] [address] Luteinizing Hormone, Serumon 10-02-2019 Lutropin Qn 14.7 {IU/L} VS-LSNDI-Qck ck er 206A IVF Work Phone: Comment on above: Luteinizing Hormone [LH] is performed using the Jose Wevod Access Immunoassay. LH testing is performed using a different test methodology at [facility] than other [facility]. Direct result comparison should only be made within the same method.REF VALUESFOLLICULAR PHASE 1.5-10.0MID-CYCLE 13.0-72.0LUTEAL PHASE 0.5-13.0MENOPAUSE 15.0-65.0PREPUBERTY 0- 3.0CHILDREN 0- 6.0ADULT MALE 1.0- 9.0 PROGESTERONEon 10-02-2019 PROGESTERONE 0.1 ng/mL Normal [facility] [place] Comment on above: Result Comment: Prog esterone is performed using the Jose Ryan Access Immunoassay. Progesterone testing is performed using a different test methodology at [facility] than other [facility]. Direct result comparison should only be made within the same method. REF VALUES MALE <0.2-0.8 FOLLICULAR PHASE <0.2-1.5 LUTEAL PHASE 7.4-15.4 POSTMENOPAUSAL <0.2-0.2 1ST TRIMESTER 12.0-84.0 2ND TRIMESTER 10.2-58.8 3RD TRIMESTER 46.5-160 Performed By: #### E STRA #### [facility] [address] [place] [address] Progesterone, Serumon 2018 Progesterone [Mass/Vol] 0.1 ng/mL DS-JQUMN-Bzotj er 206A IVF Work Phone: Comment on above: Progesterone is perf ormed using the Jose Chapin Access Immunoassay. Progesterone testing is performed using a different test methodology at [facility] than other [facility]. Direct result comparison should only be made within the same method.REF VALUESMALE <0.2-0.8 FOLLICULAR PHASE <0.2-1.5 LUTEAL PHASE 7.4-15.4 POSTMENOPAUSAL <0.2-0.2 1ST TRIMESTER 12.0-84.0 2ND TRIMESTER 10.2-58.8 3RD TRIMESTER 46.5-160 HCG,BETA-QUANTITATIVEon - HCG,BETA-QUANTITA TIVE 10 mIU/mL [facility] [place] Comment on above: Result [...] HCG measurement is performed using the Jose Chapin Access Immunoassay which detects intact HCG and free beta HCG subunit. This test is not indicated for use as a tumor marker. HCG testing is performed using a different test methodology at [facility] than other [facility]. Direct result comparison should only be made within the same method. REF VALUES NON FEMALE <5 MALES <5 Performed By: #### L H #### [facility] [address] [place] [address] LUTEINIZING HORMONEon 2018 LUTEINIZING HORMONE 57.0 IU/L Normal [facility] Comment on above: Result Comment: Lute inizing Hormone [LH] is performed using the Jose Chapin Access Immunoassay. LH testing is performed using a different test methodology at [facility] than other [facility]. Direct result comparison should only be made within the same method. REF VALUES FOLLICULAR PHASE 1.5-10.0 MID-CYCLE 13.0-72.0 LUTEAL PHASE 0.5-13.0 MENOPAUSE 15.0-65.0 PREPUBERTY 0- 3.0 CHILDREN 0- 6.0 ADULT MALE 1.0- 9.0 Performed By: #### E STRA #### [facility] [address] [place] [address] PROGESTERONEon 08-13-2019 PROGESTERONE 6.7 ng/mL Normal [facility] Comment on above: Result Comment: Prog esterone is performed using the Jose Wevod Access Immunoassay. Progesterone testing is performed using a different test methodology at [facility] than other [facility]. Direct result comparison should only be made within the same method. REF VALUES MALE <0.2-0.8 FOLLICULAR PHASE <0.2-1.5 LUTEAL PHASE 7.4-15.4 POSTMENOPAUSAL <0.2-0.2 1ST TRIMESTER 12.0-84.0 2ND TRIMESTER 10.2-58.8 3RD TRIMESTER 46.5-160 Performed By: #### L H #### [facility] [address] [place] [address] ESTRADIOLon 08-12-2019 ESTRADIOL 1380 pg/mL Normal [facility] [place] Comment on above: Result Comment: Estr adiol measurement is performed using the Jose Wevod Access Immunoassay. Estradiol testing is performed using a different test methodology at [facility] than other [facility]. Direct result comparison should only be made within the same method. REF VALUES FOLLICULAR PHASE 20-144 MID CYCLE 64-357 LUTEAL PHASE 56-214 POSTMENOPAUSE < 32 PREPUBERTY < 20 MALE 10-18Y < 20 ADULT MALE < 40 Performed By: #### L H #### [facility] [address] [place] [id number] PROGESTERONEon 08-12-2019 PROGESTERONE 1.7 ng/mL Normal [facility] Comment on above: Result Comment: Prog esterone is performed using the Jose Ryan Access Immunoassay. Progesterone testing is performed using a different test methodology at [facility] than other [facility]. Direct result comparison should only be made within the same method. REF VALUES MALE <0.2-0.8 FOLLICULAR PHASE <0.2-1.5 LUTEAL PHASE 7.4-15.4 POSTMENOPAUSAL <0.2-0.2 1ST TRIMESTER 12.0-84.0 2ND TRIMESTER 10.2-58.8 3RD TRIMESTER 46.5-160 Performed By: #### L H #### [facility] [address] [place] [id number] ESTRADIOLon 08-11-2019 ESTRADIOL 874 pg/mL Normal [facility] Comment on above: Result Comment: Estr adiol measurement is performed using the Jose Chapin Access Immunoassay. Estradiol testing is performed using a different test methodology at [facility] than other [facility]. Direct result comparison should only be made within the same method. REF VALUES FOLLICULAR PHASE 20-144 MID CYCLE 64-357 LUTEAL PHASE 56-214 POSTMENOPAUSE < 32 PREPUBERTY < 20 MALE 10-18Y < 20 ADULT MALE < 40 Performed By: #### L H #### [facility] [address] [place] [address] PROGESTERONEon 08-11-2019 PROGESTERONE 1.2 ng/mL Normal [facility] [place] Comment on above: Result Comment: Prog esterone is performed using the Jose Ryan Access Immunoassay. Progesterone testing is performed using a different test methodology at [facility] than other [facility]. Direct result comparison should only be made within the same method. REF VALUES MALE <0.2-0.8 FOLLICULAR PHASE <0.2-1.5 LUTEAL PHASE 7.4-15.4 POSTMENOPAUSAL <0.2-0.2 1ST TRIMESTER 12.0-84.0 2ND TRIMESTER 10.2-58.8 3RD TRIMESTER 46.5-160 Performed By: #### L H #### [facility] [address] [place] [address] ESTRADIOLon 08-09-2019 ESTRADIOL 385 pg/mL Normal [facility] [place] Comment on above: Result Comment: Estr adiol measurement is performed using the Jose Chapin Access Immunoassay. Estradiol testing is performed using a different test methodology at [facility] than other [facility]. Direct result comparison should only be made within the same method. REF VALUES FOLLICULAR PHASE 20-144 MID CYCLE 64-357 LUTEAL PHASE 56-214 POSTMENOPAUSE < 32 PREPUBERTY < 20 MALE 10-18Y < 20 ADULT MALE < 40 Performed By: #### L H #### [facility] [address] [place] [address] ESTRADIOLon 08-07-2019 ESTRADIOL 80 pg/mL Normal [facility] [place] Comment on above: Result Comment: Estr adiol measurement is performed using the Jose Ryan Access Immunoassay. Estradiol testing is performed using a different test methodology at [facility] than other [facility]. Direct result comparison should only be made within the same method. REF VALUES FOLLICULAR PHASE 20-144 MID CYCLE 64-357 LUTEAL PHASE 56-214 POSTMENOPAUSE < 32 PREPUBERTY < 20 MALE 10-18Y < 20 ADULT MALE < 40 Performed By: #### L H #### [facility] [address] [place] [address] ESTRADIOLon 08-04-2019 ESTRADIOL 58 pg/mL Normal [facility] [place] Comment on above: Result Comment: Estr adiol measurement is performed using the Jose Chapin Access Immunoassay. Estradiol testing is performed using a different test methodology at [facility] than [facility]. Direct result comparison should only be made within the same method. REF VALUES FOLLICULAR PHASE 20-144 MID CYCLE 64-357 LUTEAL PHASE 56-214 POSTMENOPAUSE < 32 PREPUBERTY < 20 MALE 10-18Y < 20 ADULT MALE < 40 Performed By: #### L H #### [facility] [address] [place] [address] ESTRADIOLon 07-07-2019 ESTRADIOL 110 pg/mL Normal [facility] [place] Comment on above: Result Comment: Estr adiol measurement is performed using the Jose Chapin Access Immunoassay. Estradiol testing is performed using a different test methodology at [facility] than other [facility]. Direct result comparison should only be made within the same method. REF VALUES FOLLICULAR PHASE 20-144 MID CYCLE 64-357 LUTEAL PHASE 56-214 POSTMENOPAUSE < 32 PREPUBERTY < 20 MALE 10-18Y < 20 ADULT MALE < 40 Performed By: #### L H #### [facility] [address] [place] [address] NR MRI SELLA WO/Won 05-31-20 19 NR MRI SELLA WO/W Patient Name: KIARA ASHLEY STUDY: NR MRI SELLA WO/W; 05/31/2019 2:00 pm INDICATION: History of 7 mm microadenoma 2008. COMPARISON: None. ACCESSION NUMBER(S): [id number] ORDERING CLINICIAN: SHAHLA HEALY TECHNIQUE: High resolution [...] signed by: IRENE BLAKE PHYSICIAN Normal [facility] [place] ESTRADIOLon 05-05-2019 ESTRADIOL 217 pg/mL Normal [facility] [place] Comment on above: Result Comment: Estr adiol measurement is performed using the Jose Ryan Access Immunoassay. Estradiol testing is performed using a different test methodology at [facility] than other [facility]. Direct result comparison should only be made within the same method. REF VALUES FOLLICULAR PHASE 20-144 MID CYCLE 64-357 LUTEAL PHASE 56-214 POSTMENOPAUSE < 32 PREPUBERTY < 20 MALE 10-18Y < 20 ADULT MALE < 40 Performed By: #### E STRA #### [facility] [address] [place] [address] LUTEINIZING HORMONEon 2018 LUTEINIZING HORMONE 4.4 IU/L Normal [facility] [place] Comment on above: Result Comment: Lute inizing Hormone [LH] is performed using the Jose Chapin Access Immunoassay. LH testing is performed using a different test methodology at [facility] than other [facility]. Direct result comparison should only be made within the same method. REF VALUES FOLLICULAR PHASE 1.5-10.0 MID-CYCLE 13.0-72.0 LUTEAL PHASE 0.5-13.0 MENOPAUSE 15.0-65.0 PREPUBERTY 0- 3.0 CHILDREN 0- 6.0 ADULT MALE 1.0- 9.0 Performed By: #### L H #### [facility] [address] [place] [address] ESTRADIOLon 04-11-2019 ESTRADIOL 118 pg/mL Normal [facility] [place] Comment on above: Result Comment: Estr adiol measurement is performed using the Jose Chapin Access Immunoassay. Estradiol testing is performed using a different test methodology at [facility] than [facility]. Direct result comparison should only be made within the same method. REF VALUES FOLLICULAR PHASE 20-144 MID CYCLE 64-357 LUTEAL PHASE 56-214 POSTMENOPAUSE < 32 PREPUBERTY < 20 MALE 10-18Y < 20 ADULT MALE < 40 Performed By: #### E STRA #### [facility] [address] [place] [address] LUTEINIZING HORMONEon 2018 LUTEINIZING HORMONE 7.7 IU/L Normal [facility] [place] Comment on above: Result Comment: Lute inizing Hormone [LH] is performed using the Jose Chapin Access Immunoassay. LH testing is performed using a different test methodology at [facility] than other [facility]. Direct result comparison should only be made within the same method. REF VALUES FOLLICULAR PHASE 1.5-10.0 MID-CYCLE 13.0-72.0 LUTEAL PHASE 0.5-13.0 MENOPAUSE 15.0-65.0 PREPUBERTY 0- 3.0 CHILDREN 0- 6.0 ADULT MALE 1.0- 9.0 Performed By: #### L H #### [facility] [address] [place] [address] PROGESTERONEon 04-11-2019 PROGESTERONE 0.1 ng/mL Normal [facility] [place] Comment on above: Result Comment: Prog esterone is performed using the Jose Wevod Access Immunoassay. Progesterone testing is performed using a different test methodology at [facility] than other [facility]. Direct result comparison should only be made within the same method. REF VALUES MALE <0.2-0.8 FOLLICULAR PHASE <0.2-1.5 LUTEAL PHASE 7.4-15.4 POSTMENOPAUSAL <0.2-0.2 1ST TRIMESTER 12.0-84.0 2ND TRIMESTER 10.2-58.8 3RD TRIMESTER 46.5-160 Performed By: #### P SVEN #### [facility] [address] [place] [address] ESTRADIOLon 03-17-2019 ESTRADIOL 120 pg/mL Normal [facility] [place] Comment on above: Result Comment: Estr adiol measurement is performed using the Jose Wevod Access Immunoassay. Estradiol testing is performed using a different test methodology at [facility] than other [facility]. Direct result comparison should only be made within the same method. REF VALUES FOLLICULAR PHASE 20-144 MID CYCLE 64-357 LUTEAL PHASE 56-214 POSTMENOPAUSE < 32 PREPUBERTY < 20 MALE 10-18Y < 20 ADULT MALE < 40 Performed By: #### E STRA #### [facility] [address] [place] [address] LUTEINIZING HORMONEon 2018 LUTEINIZING HORMONE 6.8 IU/L Normal [facility] [place] Comment on above: Result Comment: Lute inizing Hormone [LH] is performed using the [employer] Access Immunoassay. LH testing is performed using a different test methodology at [facility] than other [facility]. Direct result comparison should only be made within the same method. REF VALUES FOLLICULAR PHASE 1.5-10.0 MID-CYCLE 13.0-72.0 LUTEAL PHASE 0.5-13.0 MENOPAUSE 15.0-65.0 PREPUBERTY 0- 3.0 CHILDREN 0- 6.0 ADULT MALE 1.0- 9.0 Performed By: #### L H #### [facility] [address] [place] [address] ESTRADIOLon 02-20-2019 ESTRADIOL 521 pg/mL Normal [facility] [place] Comment on above: Result Comment: Estr adiol measurement is performed using the Jose Wevod Access Immunoassay. Estradiol testing is performed using a different test methodology at [facility] than other [facility]. Direct result comparison should only be made within the same method. REF VALUES FOLLICULAR PHASE 20-144 MID CYCLE 64-357 LUTEAL PHASE 56-214 POSTMENOPAUSE < 32 PREPUBERTY < 20 MALE 10-18Y < 20 ADULT MALE < 40 Performed By: #### E STRA #### [facility] [address] [place] [address] LUTEINIZING HORMONEon 2018 LUTEINIZING HORMONE 3.5 IU/L Normal [facility] [place] Comment on above: Result Comment: Lute inizing Hormone [LH] is performed using the Jose Wevod Access Immunoassay. LH testing is performed using a different test methodology at [facility] than other [facility]. Direct result comparison should only be made within the same method. REF VALUES FOLLICULAR PHASE 1.5-10.0 MID-CYCLE 13.0-72.0 LUTEAL PHASE 0.5-13.0 MENOPAUSE 15.0-65.0 PREPUBERTY 0- 3.0 CHILDREN 0- 6.0 ADULT MALE 1.0- 9.0 Performed By: #### L H #### [facility] [address] [place] [address] Vital Signs Date Time Vital Sign Value Performing Clinician Modesto golden 12-27-2023 10:57-0500 Body mass index (BMI) [Ratio] 34.84 kg/m2 Bere JOHNSON Work Phone: [facility] 12-27-2023 10:57-0500 Body weight 83.64 kg Bere JOHNSON Work Phone: [facility] 12-27-2023 10:57-0500 Diastolic blood pressure 68 mm[Hg] Bere JOHNSON Work Phone: [facility] 12-27-2023 10:57-0500 Systolic blood pressure 110 mm[Hg] Bere JOHNSON Work Phone: [facility] 02-27-2023 11:35-0400 Body mass index (BMI) [Ratio] 29.26 kg/m2 Evelyn Perez Work Phone: [facility] [employer] 02-27-2023 11:35-0400 Body temperature 98.8 [degF] Evelyn Grubererhorn Work Phone: [facility] [employer] 02-27-2023 11:35-0400 Body weight 72.58 kg Evelyn Grubererhorn Work Phone: [facility] [employer] 02-27-2023 11:35-0400 Diastolic blood pressure 66 mm[Hg] Evelyn Grubererhorn Work Phone: [facility] [employer] 02-27-2023 11:35-0400 Heart rate 88 /min Evelyn Grubererhorn Work Phone: [facility] [employer] 02-27-2023 11:35-0400 Respiratory rate 14 /min Evelyn Grubererhorn Work Phone: [facility] [employer] 02-27-2023 11:35-0400 SaO2% (BldA) [Mass fraction] 100 % Evelyn Calderonrn Work Phone: [facility] [employer] 02-27-2023 11:35-0400 Systolic blood pressure 103 mm[Hg] Evelyn Grubererhorn Work Phone: [facility] [employer] 06-19-2021 14:03-0400 Body height 157.48 cm Evelyn Grubererhorn Work Phone: QQ-ODNZQ-Fnmiuz 310 IVF Work Phone: 06-19-2021 14:03-0400 Body mass index (BMI) [Ratio] 29.26 kg/m2 Evelyn Husain Ana Work Phone: IN-JJJDV-Wenedr 310 IVF Work Phone: 06-19-2021 14:03-0400 Body surface area Derived from formula 1.74 m2 Evelyn Husain Ana Work Phone: OZ-SNTXV-Pgsnzn 310 IVF Work Phone: 06-19-2021 14:03-0400 Body weight 72.58 kg Evelyn M Ana Work Phone: VI-KYZFJ-Ykzlci 310 IVF Work Phone: 06-19-2021 14:03-0400 1 1 Evelyn M Ana Work Phone: BQ-KEPXW-Ngsxir 310 IVF Work Phone: Comment on above: GRAV PARA 06-19-2021 14:03-0400 0 1 Evelyn M Ana Work Phone: CL-RYSOP-Ifyzji 310 IVF Work Phone: Comment on above: [employer] 06-07-2020 10:41-0400 BMI (Body Mass Index) 34.93 kg/m2 King Lappen DU-TBUVW-IDC [address] [place] Work Phone: 06-07-2020 10:41-0400 Body weight 86.64 kg King Lappen IM-MDUZG-ZUB 120 0 [place] Work Phone: 06-07-2020 10:41-0400 BP Diastolic 76 mm[Hg] King Lappen VE-SSYRY-MOB 120 0 [place] Work Phone: 06-07-2020 10:41-0400 BP Systolic 111 mm[Hg] King Lappen PN-YWYZK-MXM 120 0 [place] Work Phone: 06-07-2020 10:41-0400 BSA (Body Surface Area) 1.87 m2 King Lappen MQ-OJJGC-LNH [address] [place] Work Phone: 06-07-2020 10:41-0400 Pulse (Heart Rate) 101 /min King Lappen DN-KFEER-PWB [address] [place] Work Phone: 06-07-2020 10:41-0400 0 1 King Lappen JO-OQIAT-EFA 120 0 [place] Work Phone: Comment on above: [employer] 12-25-2019 10:58-0500 BMI (Body Mass Index) 30.18 kg/m2 King Lappen OY-BACBV-TTR [address] [place] Work Phone: 12-25-2019 10:58-0500 Body weight 74.84 kg King Lappen SK-CHCSS-VDG 120 0 [place] Work Phone: 12-25-2019 10:58-0500 BP Diastolic 68 mm[Hg] King Lappen MI-WIACI-VMY 120 0 [place] Work Phone: 12-25-2019 10:58-0500 BP Systolic 112 mm[Hg] King Lappen DF-NBJBZ-COV 120 0 [place] Work Phone: 12-25-2019 10:58-0500 BSA (Body Surface Area) 1.76 m2 King Lappen BP-CHOOZ-BCN [address] [place] Work Phone: 11-09-2019 11:28-0500 Body Temperature 98.78 [degF] Kelechi Gage YN-QSQUM-Lwksis 310 IVF Work Phone: 11-09-2019 11:28-0500 BP Diastolic 76 mm[Hg] Kelechi Gage GR-QBWFQ-Ocpwdd 310 IVF Work Phone: 11-09-2019 11:28-0500 BP Systolic 112 mm[Hg] Kelechi Gage KP-RRNHD-Tpinft 310 IVF Work Phone: 11-09-2019 11:28-0500 Respiratory Rate 96 /min Kelechi Gage NW-JAMUK-Bnxxdl 310 IVF Work Phone: Encounters Encounter Date Encounter Type Care Provider Facility Start: 02-29-2024 End: 02-29-2024 ambulatory DEMARIO GISSEL Not Available Start: 02-22-2024 End: 02-22-2024 ambulatory BERE STEEL Not Available Start: 02-07-2024 End: 02-07-2024 ambulatory DEMARIO GISSEL Not Available Start: 01-24-2024 End: 01-24-2024 ambulatory BERE STEEL Not Available Start: 01-10-2024 End: 01-11-2024 ambulatory Zoya Lie 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 Facility[facility] Start: 12-27-2023 End: 12-27-2023 ambulatory BERE [...] 09-14-2023 End: 09-14-2023 ambulatory Lc Waite Facility:[facility] Start: 02-27-2023 End: 02-27-2023 Emergency department patient visit EVELYN PEREZ [facility] Start: 02-27-2023 End: 02-27-2023 Emergency department patient visit Evelyn Perez Work Phone: [facility] ED Comment on above: Sprain of left ankle , unspecified ligament, initial encounter (Primary Dx) Start: 01-11-2023 End: 01-11-[address] DEMARIO RIBEIRO . Facility:[facility] Start: 09-22-2022 End: 09-22-2022 Emergency department patient visit JAMI ROMERO [facility] Start: 03-10-[address] EVELYN PEREZ Facility:[facility] [...] 12-27-2021 End: 12-27-2021 ambulatory Sabina Barnhart Other [employer] Other Start: 12-27-2021 Office outpatient visit 5 minutes Sabina Barnhart [facility] Start: 07-16-2021 Patient encounter procedure Evelyn Perez Work Phone: LH-RRCFP-Ztqpeb 310 IVF Work Phone: Start: 07-07-2021 AUDIT Evelyn castrohofabrizio Work Phone: IN-ZFXJD-Hmrzka 310 IVF Work Phone: Start: 07-07-2021 Chart Update Evelyn santana Work Phone: LS-HAWBD-Nzfgap 310 IVF Work Phone: Start: 07-02-2021 Telephone encounter Evelyn gonzales Work Phone: GH-JHRFN-Oiqrva 310 IVF Work Phone: Start: 06-19-2021 Patient encounter procedure Evelyn Perez Work Phone: UL-PDYJI-Nmuumv 310 IVF Work Phone: Start: 06-07-2020 Patient encounter procedure King Lappen VX-BFLFV-MOV [address] [place] Work Phone: Start: 04-24-2020 Patient encounter procedure King Lappen UT-CKACO-ALN [address] [place] Work Phone: Start: 02-20-2020 Patient encounter procedure King Lappen GH-UIQPZ-PRS [address] [place] Work Phone: Start: 02-14-2020 Patient encounter procedure King Lappen GM-SLXSF-TDQ 1200 [place] Work Phone: Start: 01-23-2020 Patient encounter procedure King Lappen PI-EUOKT-FAC 1200 [place] Work Phone: Start: 12-25-2019 Patient encounter procedure King Lappen NK-ZYJTT-HKI [address] [place] Work Phone: Start: 11-21-2019 Patient encounter procedure King Lappen DS-OSXIM-KOH 1200 [place] Work Phone: Start: 11-16-2019 Patient encounter procedure Kelechi Gage MP-Reproductive Endocrinology-[place] 206 Work Phone: Start: 11-14-2019 Patient encounter procedure Kelechi Gage MN-NUGAB-Vrahlf 310 IVF Work Phone: Start: 11-09-2019 Patient encounter procedure Kelechi Gage SJ-QNCEX-Sqfgei 310 IVF Work Phone: Start: 11-02-2019 Patient encounter procedure Kelechi Gage MP-Reproductive Endocrinology-[place] Work Phone: Start: 10-21-2019 Patient encounter procedure Kelechi Gage MP-Reproductive Endocrinology-[place] Work Phone: Start: 10-14-2019 Patient encounter procedure Kelechi Gage YR-VHDHK-Zwvhbr 310 IVF Work Phone: Start: 10-11-2019 Patient encounter procedure Kelechi Gage MT-XQRLH-Hqpyke 310 IVF Work Phone: Start: 10-05-2019 Patient encounter procedure Kelechi Gage CO-DJXTM-Ibqnph 320 Work Phone: Start: 10-02-2019 Patient encounter procedure Kelechi TONGPK-TBFXG-Kiwafyf 206A IVF Work Phone: Start: 08-14-2019 Patient encounter procedure Kelechi TONGFE-SCXYE-Tpjubt 310 IVF Work Phone: Start: 08-13-2019 Patient encounter procedure Kelechi TONGSV-YQNKM-Rcpoqc 310 IVF Work Phone: Start: 08-12-2019 Patient encounter procedure Kelechi Gage HE-QSWTB-Jsezuy 310 IVF Work Phone: Start: 08-11-2019 Patient encounter procedure Kelechi Gage UI-VIXGQ-Shjbcj 310 IVF Work Phone: Start: 08-09-2019 Patient encounter procedure Kelechi Gage XE-OIIIW-Lhkynu 310 IVF Work Phone: Start: 08-07-2019 Patient encounter procedure Kelechi TONGLN-RRKFL-Vywylw 310 IVF Work Phone: Start: 08-04-2019 Patient encounter procedure Kelechi TONGXI-ELXTH-Iedyjm 310 IVF Work Phone: Start: 07-07-2019 Patient encounter procedure Kelechi TONGBS-VVQWX-Uhyoeu 310 IVF Work Phone: Start: 06-08-2019 Patient encounter procedure Kelechi TONGKZ-FXWXW-Oeroao 310 IVF Work Phone: Start: 05-17-2019 Patient encounter procedure Kelechi Gage FT-JLVST-Qmrtmd 310 IVF Work Phone: Start: 05-08-2019 Patient encounter procedure Kelechi TONGWX-NYLEL-Ovjoxf 310 IVF Work Phone: Start: 05-05-2019 Patient encounter procedure Kelechi Gage VK-BQRPI-Ennivd 310 IVF Work Phone: Start: 04-13-2019 Patient encounter procedure Kelechi Gage ZX-IIMDO-Nijolu 310 IVF Work Phone: Start: 04-11-2019 Patient encounter procedure Kelechi Gage UM-WIDWW-Gziqrf 310 IVF Work Phone: Start: 03-20-2019 Patient encounter procedure Kelechi Gage FP-ERJUJ-Pjupgq 310 IVF Work Phone: Start: 03-17-2019 Patient encounter procedure Kelechi OTNGVO-OWGMX-Meipxe 310 IVF Work Phone: Start: 02-22-2019 Patient encounter procedure Kelechi Gage PM-VNAOX-Njgsyx 310 IVF Work Phone: Start: 02-20-2019 Patient encounter procedure Kelechi TONGTC-HBVKD-Sdmlrv 310 IVF Work Phone: Start: 02-13-2019 Patient encounter procedure Bruce Mayes Facility:[facility] Start: 02-08-2019 End: 02-12-2019 Patient encounter procedure Bruce Mayes Facility:[facility] Start: 01-19-2019 Patient encounter procedure Kelechi TONGCX-KJUHN-Hwlsal 310 IVF Work Phone: Patient encounter status Evelyn Perez Work Phone: IX-GKKFM-Lslure 310 IVF Work Phone: Procedures Date Procedure [...] Via Natural or Artificial Opening DR EVELYN EPREZ Start: 06-07-2020 Cult, Beta Strep Grp B - Vaginal/Rectal King Lappen Start: 06-05-2020 MAC Imaging Order Justi n Lappen Start: 12-25-2019 Antibody hiv-1 King L appen Start: 12-25-2019 Antibody rubella King Lappen Start: 12-25-2019 Complete Blood Count Anemia Panel with reflex King Kemppen Start: 12-25-2019 Culture bacterial quanttative colony count urine King Kemppen Start: 12-25-2019 Hemoglobin Identification King Kemppen Start: 12-25-2019 Hepatitis c antibody Ju khadra Guevara Start: 12-25-2019 Iaad ia hepatitis b surface antigen King Lappen Start: 12-25-2019 Iadna chlamydia trac homatis amplified probe tq King Kemppen Start: 12-25-2019 SYPHILIS SCREENING W ITH REFLEX King Kemppen Start: 12-25-2019 Type and Screen King Guevara [...] AM EDT Routine [facility] [address] [place] [id number] Demario Ribeiro, DO [address] [place] [address] [facility] Start: 02-07-2024 End: 02-07-2024 Professional / ancillary services management 02/07/2024 9:00 AM EDT Ancillary Procedure [facility] [address] [place], [place] [phone] [facility] Start: 01-24-2024 End: 01-24-2024 Patient encounter procedure 01/24/2024 9:30 AM EDT Routine [facility] [address] [place], [place] [id number] Bere Steel PA [address] [place], [place] [id number] [facility] Start: 01-10-2024 End: 01-10-2024 Patient encounter procedure 01/10/2024 2:20 PM EST Routine [facility] [address] [place] [phone] Demario Ribeiro, DO [address] [place] [address] [facility] Start: 01-10-2024 End: 01-10-2024 Professional / ancillary services management 01/10/2024 2:00 PM EST Ancillary Procedure [facility] [address] [place], [place] [phone] [facility] Start: 12-27-2023 End: 12-27-2024 US biophysical profile w non stress test US biophysical profile w non stress test Imaging Routine Hypothyroidism (acquired) ([facility]) H/O blood clots Expected: 12/27/2023 (Approximate), Expires: 12/27/2024 [facility] Work Phone: Comment on above: Expected: 12/27/2023 (Approximate), Expires: 12/27/2024 Start: 12-27-2023 End: 12-27-2024 US for US OB SCAN FOR GROWTH Imaging Routine Hypothyroidism, unspecified type (CMS/HCC) Excessive growth affecting management of in third trimester, single or unspecified fetus Expected: 12/27/2023 (Approximate), Expires: 12/27/2024 [facility] Comment on above: Expected: 12/27/2023 (Approximate), Expires: 12/27/2024 Start: 06-15-2023 Influenza vaccination Flu vacc ine (Season Ended) [facility] Start: 2021 Screening for malignant neoplasm of cervix [facility] Start: 07-25-2021 ULTRASOUND, Provider : OBGYN IVF RDMS ARDEN 1,[facility], Status: Pen, Time: 9:00 AM ULTRASOUND, Provider: OBGYN IVF RDMS ARDEN 1,[facility] O[facility], Status: Pen, Time: 9:00 AM JG-AGRKA-Tfenmy 310 IVF Work Phone: Start: 07-16-2021 ULTRASOUND, Provider : OBGYN IVF RDMS [id number] 1,[facility], Status: Pen, Time: 1:00 PM ULTRASOUND, Provider: OBGYN IVF RDMS [id number] 1,[facility], Status: Pen, Time: 1:00 PM EB-HWVAW-Noocoj 310 IVF Work Phone: Start: 07-07-2021 ULTRASALIN, Provider : Miguel A Barrera, Status: Pen, Time: 10:00 AM ULTRASALIN, Provider: Miguel A Barrera, Status: Pen, Time: 10:00 AM LN-RZDHM-Lbraab 310 IVF Work Phone: Start: 06-05-2020 MAC Imaging Order MG-SWITCH ADJUSTER-MAC 1200 [place] Work Phone: Start: 11-16-2019 IO Ultrasound, MP-Reproductive Endocrinology-[place] 206 Work Phone: Start: 11-14-2019 Blood count complete auto&auto difrntl wbc Complete Blood Count + Differential ZY-OJCJU-Fyooue 310 IVF Work Phone: Start: 11-14-2019 Comprehensive metabolic 2000 panel KV-ANTAL-Vqomxb 310 IVF Work Phone: Start: 11-02-2019 Gonadotropin chorion ic quantitative HCG, Beta Quantitative MP-Reproductive Endocrinology-[facility] chastity 206 Work Phone: Start: 10-11-2019 IO Ultrasound, limited pelvic, follicle monitoring MY-OVUKT-Hkejul 310 IVF Work Phone: Start: 10-05-2019 IO Ultrasound, limited pelvic, follicle monitoring FL-RNXNH-Pabdxv 320 Work Phone: Start: 2012 Screening for malignant neoplasm of cervix Pap smear [facility] Start: 2010 DTaP/Tdap/Td vaccine (1 - Tdap) DTaP/Tdap/Td vaccine (1 - Tdap) [facility] Start: 2009 Hepatitis C screening Hepatitis C sc reen [facility] Start: 2006 HIV screening HIV screen [facility] Start: 2003 Depression Screen Depression Screen [facility] Start: 1992 Varicella vaccine (1 of 2 - 2-dose childhood series) Varicella vaccine (1 of 2 - 2-dose childhood series) [facility] Start: 03-02-1992 COVID-19 Vaccine (#1) COVID-19 Vacci ne (#1) [facility] [facility] Assay of estradiol Estradiol, Serum MG-SWITCH ADJUSTER-Risman 310 IVF Work Phone: Comment on above: Approx [id number] Approx [id number] Approx [id number] Assay of progesterone Progesterone, Serum DD-RHUWO-Sewyes 310 IVF Work Phone: Comment on above: Approx [id number] Gonadotropin luteinizing hormone Luteinizing Hormone, Serum LG-IMYMY-Agfrxp 310 IVF Work Phone: Comment on above: Approx [id number] WO-KUCLG-Uddgvv 320 Work Phone: IO Ultrasound, l imited pelvic, follicle monitoring DZ-UZAFV-Phocke 310 IVF Work Phone: Comment on above: Approx [id number] Approx [id number] Approx [id number] NEGATED: Highlighted row has been ruled out! Planned Goals not documented ZW-SHAEO-Bjxlkn 310 IVF Work Phone: Payers Date Payer Category Payer Self-pay 2016 Private Health Insurance [id number] 2016 Private Health Insurance [id number] 1991 Unknown [id number] 2.16.84 0.1.425662.3.579.2.593 1991 Unknown [id number] 2.16.84 0.1.595911.3.579.2.593 1991 Unknown [id number] 2.16.84 0.1.145360.3.579.2.593 1991 Unknown [id number] 2.16.84 0.1.864948.3.579.2.593 1991 Unknown [id number] 2.16.84 0.1.683071.3.579.2.593 1991 Unknown [id number] 2.16.84 0.1.388426.3.579.2.593 1991 Unknown [id number] 2.16.84 0.1.540247.3.579.2.593 1991 Unknown [id number] 2.16.84 0.1.704158.3.579.2.593 1991 Unknown [id number] 2.16.84 0.1.047168.3.579.2.593 1991 Unknown [id number] 2.16.84 0.1.985452.3.579.2.593 1991 Unknown [id number] 2.16.84 0.1.314681.3.579.2.593 1991 Unknown [id number] 2.16.84 0.1.339179.3.579.2.593 1991 Unknown [id number] 2.16.84 0.1.446031.3.579.2.593 1991 Unknown [id number] 2.16.84 0.1.621757.3.579.2.593 1991 Unknown [id number] 2.16.8 40.1.716120.3.579.2.173 1991 Unknown [id number] 2.16.8 40.1.622190.3.579.2.173 1991 Unknown [id number] 2.16. 840.1.869644.3.579.2.196 1991 Unknown [id number] 2.16. 840.1.468413.3.579.2.196 1991 Unknown [id number] 2.16.84 0.1.420426.3.579.2.1259 1991 Unknown [id number] 2.16.84 0.1.814380.3.579.2.1259 1991 Unknown [id number] 2.16.84 0.1.301149.3.579.2.1259 1991 Unknown [id number] 2.16.84 0.1.886064.3.579.2.1259 1991 Unknown [id number] 2.16.84 0.1.206665.3.579.2.1259 1991 Unknown [id number] 2.16.84 0.1.413578.3.579.2.1259 1991 Unknown [id number] 2.16.84 0.1.764421.3.579.2.1259 1991 Unknown [id number] 2.16.840 .1.269258.3.579.2.1259 1991 Unknown [id number] 2.16.840 .1.557464.3.579.2.1259 1959 Self-pay [id number] 1959 Unknown [id number] 1959 Unknown [id number] Unknown [id number] 2.16.8 40.1.500492.3.579.2.243 Unknown [id number] 2.16.8 40.1.536335.3.579.2.243 Unknown Unknown [id number] 2.16.8 40.1.536075.3.579.2.531 Social History Date Type Detail Facility - - [facility]up[facility] IVF Work Phone: Start: 05-11-2023 End: 12-27-2023 Never a smoker Never a smoker [facility] Comment on above: [facility] ED; Start: 05-11-2023 End: 09-06-2023 Sex Assigned At [facility] Start: 09-22-2022 End: 04-15-2023 Tobacco smoking status NHIS Never smoked tobacco [employer] Phone: Start: 09-22-2022 End: 04-15-2023 Tobacco use and exposure Smokeless tobacco non-user [employer] Phone: Start: 1990 Sex Assigned At Not on file B ON [employer] Phone: Start: 02-17-2023 End: 02-27-2023 Exposure to SARS-CoV-2 (event) Not sure [employer] Start: 12-27-2023 Alcohol intake Current drinke r [...] status health issues are not documented Disease [facility] Work Phone: Mental Status Date Assessment Result Facility NEGATED: Highlighted row Cognitive function [Interpretation] Cognitive status health issues are not documented Disease [facility] IV[facility] Work Phone: History of Present illness [...] Problems Past Medical History: Diagnosis Date Asthma ([facility]) Infection of obstetric surgical wound Protein S deficiency ([facility]) Vaginal delivery Family History Problem Relation Name [...] Third trimester First trimester Hypothyroidism, unspecified type ([facility]) Hypothyroidism (acquired) ([facility]) H/O blood clots Excessive growth affecting management [...] of: ELIZABETH Daly documented in this encounter [facility] Evaluation note 12-27-2021 Note Date & [...] Patient care instructions given in writting by [facility] At Home document. [employer] Other Clinical Note 07-25-2021 Note Date & [...] care. Reviewed plan with Dr. Bruce Aburto, DIRECTOR OF OUTREACH 07/25/2021 09:22 note: ob scan LOLLY: 03/05/2022. [...] Plan reviewed by Dr. Healy. Petra Lombardi DIRECTOR OF OUTREACH 07/16/21 1409 TC to pt with quant = 3238 form yesterday; normal rise from 728 on 07/02; Pt doing well; no problems with Lovenox. PT transferred to [facility] to schedule OB US for next week at [facility]. Bere [address] RN 07/07/2021 11:47 Spoke with patient regarding SKCZ=609. Pain=0. Patient states she will begin prometrium [...] Dr. Healy. RN to communicate. Petra Lombardi DIRECTOR OF OUTREACH 07/02/21 1304 Active Problems 16 weeks gestation [...] directed. Peak F (more content not included)... [facility] Chief complaint Narrative - Reported 06-19-2021 Note [...] 30 year-old who presents for a FET [id number] Hx:06/2020: IOL @ 38 weeks due to [...] Ashley 04/09/1989A in past year:2.8 cc125 mil/mL69% nuqdistlUHY=548 million(recent IUI sample)Morph from original SA was 2.8% YJ-DVKXP-Xvjhnh 310 IVF Work Phone: Evaluation note Note Date & Type Note Facility Evaluation note Diagnosis Sprain of left ankle, unspecified ligament, initial encounter- Primary documented in this encounter [facility] Work Phone: Evaluation note Note Date & Type Note Facility Evaluation note Diagnosis Third trimester state, incidental First trimester state, incidental Hypothyroidism, unspecified type (CMS/HCC) Hypothyroidism (acquired) (CMS/HCC) Unspecified hypothyroidism H/O blood clots Excessive growth affecting management of in third trimester, single or unspecified fetus documented in this encounter [facility] Discharge instructions Attachments Note Date & Type Note Facility Hospital Discharge instructions The following attachments cannot be sent through Care Everywhere.Ankle Sprain (Sinhala)Ankle Sprain: Rehab Exercises (Sinhala)documented in this encounter [facility] [employer] Work Phone: Summary Purpose Family History No [...] section and content) DATE CREATED AUTHOR 02/15/2019 [facility] DATE CREATED AUTHOR AUTHOR'S ORGANIZ ATION 11/12/[address] [facility] DATE CREATED AUTHOR AUTHOR'S ORGANIZ ATION 08/09/2020 [facility] DATE CREATED AUTHOR AUTHOR'S ORGANIZ ATION 07/26/2021 [employer] DATE CREATED AUTHOR AUTHOR'S ORGANIZ ATION 01/21/2023 [facility] DATE CREATED AUTHOR AUTHOR'S ORGANIZ ATION 03/06/2023 [facility] DATE CREATED AUTHOR AUTHOR'S ORGANIZ ATION 07/12/2023 [facility] DATE CREATED AUTHOR AUTHOR'S ORGANIZ ATION 10/04/2023 [facility] DATE CREATED AUTHOR AUTHOR'S ORGANIZ ATION 01/15/2024 [facility] DATE CREATED AUTHOR AUTHOR'S ORGANIZ ATION 03/01/2024 [facility] Specialists EPIC REASON FOR VISIT (unrecogniz ed section and content) Reason Comments Ankle Pain Rolled ankle during morning run. Swelling to lateral ankle. 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 Reason Comments Routine Visit Care Teams (unrecognized sec tion and content) Teletypesetter Monitor Relationship Specialty Start Date End Date Evelyn Perez [address] [place] [id number] PCP - General Pediatrics 09/22/22 Teletypesetter Monitor Relationship Specialty Start Date End Date Jesse Regan MD [address] [place], [place] [id number] PCP - General Family Medicine 11/30/23 FOR [...] BE BASED ON THE PRIMARY CLINICAL RECORDS. [facility] [employer] provides no warranty or guarantee of the accuracy or completeness of information in this document.
== END 2024-03-03 10:53 | disposition home or self-care (01) ==
LOC: FBCO 10:00 → FBC 10:01
PROVIDERS: Visit Provider Obstetrics & Gynecology
DX: O36.5930 Maternal care for other known or suspected poor fetal growth, third trimester, not applicable or unspecified (principal); Z3A.00 Weeks of gestation of pregnancy not specified
CPT/HCPCS: 59025

== ENCOUNTER 2024-03-06 05:01 | Inpatient (IN) | payer OTHER, SELFPAY ==
[2024-03-06] VITALS (31 sets, daily range): BP systolic 105–157; BP diastolic 51–113; PULSE 60–108; TEMP 35.9–37.1
--- OUTSIDE RECORDS SUMMARY | 2024-03-06 05:07 | XMS_ITS | CCD ---
Author Organization [facility] Care Team Providers Care Sap Pp Consultant Name Role Phone Bruce Mayes Attending Unavailable [...] HER Unavailable Unavaila ble OBGYN IVF RDMS [id number] 1, MG OBGYN Unavailable Unavailable Lapkathrine King Unavailable Unavailable Shahla Healy Unavailable Unavailable January, Jami Unavailable Unavailable Evelyn Perez Unavailable Unavailable Unavailable Unavailable Unavailable Sabina Barnhart Unavailable ANA, DR EVELYN Husain Primary Care Unavail able GISSEL Dinae, DR CRUM Attending Unavailable GISSEL ., DR [...] Unavailable Ana, Evelyn Husain Primary Care Provider [phone] JAMI ROMERO Attending Unavailable ANA, EVELYN Husain Primary Care Unavailabl e ANA, EVELYN M Primary Care Unavailabl Lc Sunshine Admitting Unavailable Evelyn Perez Primary Care Unavailable Lc Waite Attending Unavailable Jesse Regan MD Primary Care Provider [facility], Zoya Cheung Attending Evelyn Robertson MD Primary Care Zamzam vailable Ana CALDERÓN, Evelyn Gracia Primary Care Zamzam vailable Link [employer], Zoya Cheung Attending Unava ilable DEMARIO RIBEIRO Attending Unavailable ELSA, BERE Attending Unavailable GISSEL, DEMARIO Attending Unavailable ELSA, BERE Attending Unavailable ELSA, BERE Attending Unavailable GISSEL, DEMARIO Attending Unavailable ELSA, BERE Attending Unavailable GISSEL, DEMARIO Attending Unavailable GISSEL, DEMARIO Attending Unavailable Allergies Allergy Classification Reported Allergen(s) Allergy Type Date of Onset Reaction(s) Facility Progesterone (2 sources) Progesterone; Translations: [Progesterone OIL] Drug Allergy [id number] n 310 IVF Work Phone: (16 sources) Progesterone; Translations: [Progesterone OIL] Drug Allergy 2 [facility] (2 sources) sesame seed extract Drug Allergy [facility] Repository (2 sources) Progesterone Drug Allergy 2 [facility] (1 source) No Known Medication Allergies; Translations: [No Known Medication Allergies] Propensity to adverse reactions to drug (disorder) [facility] Repository Medications Current Medications Medication Drug [...] Kelechi Gage MD Start : 14-Aug-2019 Active [id number] 200 actuat albuterol 0.09 mg/actuat metered dose [...] DO Start : 19-Jan-2019 Active BD Disp [place] 27G X 1/2 (19 sources) Start: 10-03-2019 BD Disp Needle s 27G X 1/2 USE DIRECTED. Quantity: 2 Refills: 2 Shahla Healy MD Start : 03-Oct-2019 Active chorionic gonadotropin 69143 unt/ml injectable solution (19 sources) Gonadotropin Start: 10-03-2019 Chorionic Gonadotropin 38490 UNIT Intramuscular Solution Reconstituted USE DIRECTED. Quantity: [...] Start : 25-Dec-2019 Active Peak Flow Meter [place] Rang Device (3 sources) Start: 01-23-2020 Peak Flow Mete r [place] Rang Device USE DIRECTED. Quantity: 1 Refills: [...] refills. Continue with anticoagulation as prescribed by CANDY PACKER, patient is currently 30 weeks gestation. [...] embolism Historical No qualifying data Procedure/Surgical History [place] Teeth Removal (2005) IVF (11/15/2018) Medications Dulera [...] Link Zoya PERKINS 01/10/24 12:40 EST Normal [facility] Phone Note - Heme Onc-medica tion questionon 07-12-2023 Phone Note - Heme Onc-medication question Phone Call Information: Patient Demographics: Name: KIARA ASHLEY Date: 1990 Address: [address] [place] [address] Date and Time: 12-Jul-2023 09:31 Caller Information: call from Call From: patient Caller Name: Kiara Primary Phone Number: [phone] Reason for Call: Reason for Callmedication question [...] script to be sent to [facility]. Script sent. Pt had no further questions [...] (Signed 12-Jul-2023 09:57) Authored: Phone Call Information CaledoniaAshli (UNIT SECT) (Signed 12-Jul-2023 09:31) Authored: Phone Call Information, Outpatient Medication Profile, Allergies, Results Last Updated: 12-Jul-2023 09:57 by Harmony Ross (N MGR) Normal [facility] XR ANKLE LEFT (MIN 3 VIEWS)o [...] Dario William MD 02/27/23 Final result Normal [facility] 1. No acute osseous abnormality involving the left ankle. [facility] EXAMINATION: THREE XRAY VIEWS OF THE LEFT ANKLE 02/27/2023 11:46 am COMPARISON: None. HISTORY: ORDERING SYSTEM PROVIDED HISTORY: pain, swelling TECHNOLOGIST PROVIDED HISTORY: pain, swelling FINDINGS: The bone mineralization is within normal limits. The ankle mortise is stable. No acute fractures or dislocations are seen. There is no soft tissue swelling. [facility] Dario William MD - [...] acute osseous abnormality involving the left ankle. [employer] Work Phone: Radiology Study observation (narrative) [email or web address] Phone: XR ANKLE LEFT (MIN 3 VIEWS)O rdered By: Dario Stewart on 02-27-2023 [facility] [employer] Phone: PAP ACOG PANEL 2: 30 to 65on 01-19-2023 . . Normal [facility] Comment on above: Result Comment: Perf ormed at: WB Performed By: #### [id number] #### [facility] [address] [place] [address] Dr. Claire Mayes Age Gdln ACOG Testing 30-65 [facility] Comment on above: Performed By: #### [id number] #### [facility] [address] [address] [address] Claire Mayes DIAGNOSIS: Comment Normal [facility] Comment on above: Result Comment: NEGA TIVE FOR INTRAEPITHELIAL LESION OR MALIGNANCY. Performed at: WB Performed By: #### [id number] #### [facility] [address] [address] [address] Claire Mayes HPV Aptima Negative Normal Negative [facility] Comment on above: Result Comment: This nucleic acid amplification test detects fourteen high-risk HPV types (16,18,31,33,35,39,45,51,52,56,58,59,66,68) without differentiation. Performed at: =G Performed By: #### [id number] #### [facility] [address] [address] [address] Claire Mayes HPV Genotype Reflex Comment Normal [facility] Comment on above: Result Comment: Crit eria not met, HPV Genotype not performed. Performed at: WB Performed By: #### [id number] #### [facility] [address] [address] [address] Claire Mayes Methodology: Comment Normal [facility] Comment on above: Result Comment: This liquid based ThinPrep(R) pap test was screened with the use of an image guided system. Performed at: WB Performed By: #### [id number] #### [facility] [address] [place] [address] Dr. Claire Mayes Note: Comment Normal [facility] Comment on above: Result Comment: The Pap smear is a screening test designed to aid in the detection of premalignant and malignant conditions of the uterine cervix. It is not a diagnostic procedure and should not be used as the sole means of detecting cervical cancer. Both false-positive and false-negative reports do occur. . Performed at: WB Performed By: #### [id number] #### [facility] [address] [place] [address] Dr. Claire Mayes Performed by: Comment Normal [facility] Comment on above: Result Comment: Sherlyn Wright, Fire Sprinkler Installer (ASCP) Performed at: WB Performed By: #### [id number] #### [facility] [address] [place] [address] Dr. Claire Mayes Specimen adequacy: Comment Normal [facility] Comment on above: Result Comment: Sati sfactory for evaluation. No endocervical component is identified. Performed at: WB Performed By: #### [id number] #### [facility] [address] [place] [address] Dr. Claire Mayes CBC with Diffon 09-22-2022 Abs. Basophil 0.03 k/uL Normal 0.00-0.20 [facility] Comment on above: Performed By: #### L BJ BUCK, CP #### [facility] [address] [place], [place] [id number] Repair Coil Winder: Jesse Curry MD Abs.Imm.Granulocy te 0.04 k/uL Normal 0.00-0.30 [facility] Comment on above: Performed By: #### L BJ BUCK, CP #### [facility] [address] [place], [place] [id number] Repair Coil Winder: Jesse Curry MD Abs.Neutrophil (Seg) 12.54 k/uL High 1.50-8.10 [facility] Comment on above: Performed By: #### L IP, CDP, CP #### [address] [place], [place] [address] Repair Coil Winder: Jesse Curry MD Basophils/100 WBC (Bld) 0 % Normal 0-2 [facility] Comment on above: Performed By: #### L IP, CDP, CP #### [address] [place], [place] [address] Repair Coil Winder: Jesse Curry MD Eosinophils (Bld) [#/Vol] 0.16 10*3/uL Normal 0.00-0.44 [facility] Comment on above: Performed By: #### L IP, CDP, CP #### [address] [place] [address] Repair Coil Winder: Jesse Curry MD Eosinophils/100 WBC (Bld) 1 % Normal 1-4 [facility] Comment on above: Performed By: #### L IP, CDP, CP #### [address] [place] [address] Repair Coil Winder: Jesse Curry MD Erythrocyte distribution width (RBC) [Ratio] 13.6 % Normal 11.8-14.4 [facility] Comment on above: Performed By: #### L IP, CDP, CP #### [address] [place], [place] [address] Repair Coil Winder: Jesse Curry MD Hematocrit (Bld) [Volume fraction] 46.4 % Normal 36.3-47.1 [facility] Comment on above: Performed By: #### L IP, CDP, CP #### [address] [place], [facility] Repair Coil Winder: Jesse Curry MD Hemoglobin (Bld) [Mass/Vol] 15.6 g/dL High 11.9-15.1 [facility] Comment on above: Performed By: #### L IP, CDP, CP #### [facility] [address] [place], [facility] Repair Coil Winder: Jesse Curry MD Immature granulocytes/100 WBC (Bld) 0 % Normal 0 [facility] Comment on above: Performed By: #### L IP, CDP, CP #### [address] [place], [place] [address] Repair Coil Winder: Jesse Curry MD Lymphocytes (Bld) [#/Vol] 0.98 10*3/uL Low 1.10-3.70 [facility] Comment on above: Performed By: #### L IP, CDP, CP #### [address] [place], [facility] Repair Coil Winder: Jesse Curry MD Lymphocytes/100 WBC (Bld) 7 % Low 24-43 [facility] Comment on above: Performed By: #### L IP, CDP, CP #### [address] [place], [facility] Repair Coil Winder: Jesse Curry MD MCH (RBC) [Entitic mass] 30.4 pg Normal 25.2-33.5 [facility] Comment on above: Performed By: #### L IP, CDP, CP #### [address] [place], [place] [address] Repair Coil Winder: Jesse Curry MD MCHC (RBC) [Mass/Vol] 33.6 g/dL Normal 28.4-34.8 [facility] Comment on above: Performed By: #### L IP, CDP, CP #### [address] [place] [address] Repair Coil Winder: Jesse Curry MD MCV (RBC) [Entitic vol] 90.3 fL Normal 82.6-102.9 [facility] Comment on above: Performed By: #### L IP, CDP, CP #### [facility] [address] [place] [address] Repair Coil Winder: Jesse Curry MD Monocytes (Bld) [#/Vol] 0.58 10*3/uL Normal 0.10-1.20 [facility] Comment on above: Performed By: #### L IP, CDP, CP #### [facility] [address] [place] [address] Dr. [place], [place] [address] Repair Coil Winder: Jesse Curry MD Monocytes/100 WBC (Bld) 4 % Normal 3-12 [facility] Comment on above: Performed By: #### L IP, CDP, CP #### [address] [place], [place] [address] Repair Coil Winder: Jesse Curry MD Neutrophil (Seg) 88 % High 36-65 [facility] Comment on above: Performed By: #### L IP, CDP, CP #### [address] [place], [facility] Repair Coil Winder: Jesse Curry MD NRBC Automated 0.0 per 100 WBC Normal 0.0 [facility] Comment on above: Performed By: #### L IP, CDP, CP #### [address] [place], [place] [address] Repair Coil Winder: Jesse Curry MD Platelet mean volume (Bld) [Entitic vol] 9.9 fL Normal 8.1-13.5 [facility] Comment on above: Performed By: #### L IP, CDP, CP #### [address] [place], [place] [id number] Repair Coil Winder: Jesse Curry MD Platelets (Bld) [#/Vol] 299 10*3/uL Normal 138-453 [facility] Comment on above: Performed By: #### L IP, CDP, CP #### [address] [place] [address] Repair Coil Winder: Jesse Curry MD RBC (Bld) [#/Vol] 5.14 10*6/uL High 3.95-5.11 [facility] Comment on above: Performed By: #### L IP, CDP, CP #### [facility] [address] [place] [address] Repair Coil Winder: Jesse Curry MD WBC (Bld) [#/Vol] 14.3 10*3/uL High 3.5-11.3 [facility] Comment on above: Performed By: #### L IP, BJ, CP #### [facility] [address] [place], [place] [id number] Repair Coil Winder: Jesse Curry MD CT ABDOMEN PELVIS W [...] A Maldonado DO 09/22/22 Final result Normal [facility] Comp Metabolic Profon 2021 Albumin [Mass/Vol] 4.7 g/dL Normal 3.5-5.2 [facility] Comment on above: Performed By: #### L IP, CDP, CP #### [facility] [address] [place] [address] [place] [address] Repair Coil Winder: Jesse Curry MD Albumin/Glob Ratio 2.0 Normal 1.0-2.5 [facility] Comment on above: Performed By: #### L IP, CDP, CP #### [facility] [address] [place] [address] Dr[place], [place] [id number] Repair Coil Winder: Jesse Curry MD Alkaline Phos 77 U/L Normal 35-104 [facility] Comment on above: Performed By: #### L IP CDP, CP #### [address] [place], [place] [address]83 Repair Coil Winder: Jesse Curry MD ALT [Catalytic activity/Vol] 10 U/L Normal 5-33 [facility] Comment on above: Performed By: #### L IP, CDP, CP #### [facility] [address] [place] [address] Dr. [place], [place] [address]83 Repair Coil Winder: Jesse Curry MD Anion gap [Moles/Vol] 12 mmol/L Normal 9-17 [facility] Comment on above: Performed By: #### L IP, CDP, CP #### [facility] [address] [place] [address] [place] [address] Repair Coil Winder: Jesse Curry MD AST [Catalytic activity/Vol] 14 U/L Normal <32 [facility] Comment on above: Performed By: #### L IP, CDP, CP #### [facility] [address] [place], [place] [address]83 Repair Coil Winder: Jesse Curry MD Bilirubin [Mass/Vol] 0.6 mg/dL Normal 0.3-1.2 [facility] Comment on above: Performed By: #### L IP, CDP, CP #### [facility] [address] [place], [place] [id number] Repair Coil Winder: Jesse Curry MD BUN/CRE Ratio 31 High 9-20 [facility] Comment on above: Performed By: #### L IP, CDP, CP #### [facility] [address] [place] [address] Dr. [place], [place] 7[address]83 Repair Coil Winder: Jesse Curry MD Calcium [Mass/Vol] 9.8 mg/dL Normal 8.6-10.4 [facility] Comment on above: Performed By: #### L IP, CDP, CP #### [facility] [address] [place] [address] Dr. [place], [place] 285[address]83 Repair Coil Winder: Jesse Curry MD Chloride [Moles/Vol] 104 mmol/L Normal 98-107 [facility] Comment on above: Performed By: #### L IP, CDP, CP #### [facility] [address] [place] [address] Dr. [place], [place] [id number] Repair Coil Winder: Jesse Curry MD CO2 [Moles/Vol] 22 mmol/L Normal 20-31 [facility] Comment on above: Performed By: #### L IP, CDP, CP #### [facility] [address] [place] [address] Dr. [place], [place] [id number] Repair Coil Winder: Jesse Curry MD Creatinine [Mass/Vol] 0.85 mg/dL Normal 0.50-0.90 [facility] Comment on above: Performed By: #### L IP, CDP, CP #### [facility] [address] [place] [address] [place] [address] Repair Coil Winder: Jesse Curry MD GFR/1.73 sq M.predicted among non-blacks MDRD (S/P/Bld) [Vol rate/Area] mL/min/{1.73_m2} Normal >60 [facility] Comment on above: Result Comment: [...] By: #### L IP CDP, CP #### [facility] [address] [place] [address] [place] [address] Repair Coil Winder: Jesse Curry MD Glucose [Mass/Vol] 109 mg/dL High 70-99 [facility] Comment on above: Performed By: #### L IP CDP, CP #### [facility] [address] [place] [address] [place] [address] Repair Coil Winder: Jesse Curry MD Potassium [Moles/Vol] 4.0 mmol/L Normal 3.7-5.3 [facility] Comment on above: Performed By: #### L CIELO CDP, CP #### [facility] [address] [place] [address] [place] [address] Repair Coil Winder: Jesse Curry MD Protein [Mass/Vol] 7.1 g/dL Normal 6.4-8.3 [facility] Comment on above: Performed By: #### L IP CDP, CP #### [facility] [address] [place] [address] Repair Coil Winder: Jesse Curry MD Sodium [Moles/Vol] 138 mmol/L Normal 135-144 [facility] Comment on above: Performed By: #### L IP, CDP, CP #### [facility] [address] [place] [address] Repair Coil Winder: Jesse Curry MD Urea nitrogen [Mass/Vol] 26 mg/dL High 6-20 [facility] Comment on above: Performed By: #### L BJ BUCK, CP #### [facility] [address] [place] [address] Repair Coil Winder: Jesse Curry MD HCG, ,Urineon 09-22 Beta HCG ( test) Ql (U) Negative Normal NEG [facility] Comment on above: Result Comment: Spec imens with hCG levels near the threshold of the test (25 mIU/mL) may give a negative or indeterminate result. In such cases, another test should be performed with a new specimen in 48-72 hours. If early is suspected clinically in this setting, correlation with quantitative serum b-hCG level is suggested. [facility] has confirmed the use of plasma for this test. This has not been cleared or approved by the U.S. Food and Drug Administration. The FDA has determined that such clearance is not necessary. Performed By: #### U HCG #### [facility] [address] [place] [address] Repair Coil Winder: Jesse Curry MD Lactic Acidon 09-22-2022 Lactate [Moles/Vol] 1.8 mmol/L Normal 0.5-2.2 [facility] Comment on above: Performed By: #### L ACTIC #### [facility] [address] [place] [address] Repair Coil Winder: Jesse Curry MD Lipaseon 09-22-2022 Lipase [Catalytic activity/Vol] 39 U/L Normal 13-60 [facility] Comment on above: Performed By: #### L BJ BUCK, CP #### [facility] [address] [place] [address] Repair Coil Winder: Jesse Curry MD UA w/Reflex Cultureon 2021 Bilirubin, SemiQt,Ur Negative Normal NEG [facility] Comment on above: Performed By: #### U MICAO, UAX #### [facility] [address] [place], [place] 18[address]383 Repair Coil Winder: Jesse Curry MD Blood, Urine Negative Normal NEG [facility] Comment on above: Performed By: #### U MICAO, UAX #### [facility] [address] [place], [place] 5597183 Repair Coil Winder: Jesse Curry MD Clarity (U) Clear Normal CLEAR [facility] Comment on above: Performed By: #### U MICAO, UAX #### [address] [place], [place] [id number] Repair Coil Winder: Jesse Curry MD Color (U) Yellow Normal YEL [facility] Comment on above: Performed By: #### U MICAO, UAX #### [address] [place], [place] [id number] Repair Coil Winder: Jesse Curry MD Glucose Ql (U) Negative Normal NEG [facility] Comment on above: Performed By: #### U MICAO, UAX #### [address] [place], [place] [id number] Repair Coil Winder: Jesse Curry MD Ketones Ql (U) Negative Normal NEG [facility] Comment on above: Performed By: #### U MICAO, UAX #### [facility] [address] [place] [address] Dr. [place], [place] [address]678383 Repair Coil Winder: Jesse Curry MD Leukocyte esterase Test strip Ql (U) Negative Normal NEG [facility] Comment on above: Performed By: #### U MICAO, UAX #### [facility] [address] [place], [place] [address]83 Repair Coil Winder: Jesse Curry MD Nitrite,Ur Negative Normal NEG [facility] Comment on above: Performed By: #### U MICAO, UAX #### [facility] [address] [place], [place] 4877483 Repair Coil Winder: Jesse Curry MD PH,Ur 8.0 Normal 5.0-9.0 [facility] Comment on above: Performed By: #### U MICAO, UAX #### [facility] [address] [place], [place] [address] Repair Coil Winder: Jesse Curry MD Protein Ql (U) Negative Normal NEG [facility] Comment on above: Performed By: #### U MICAO, UAX #### [facility] [address] [place], [place] 0[address]83 Repair Coil Winder: Jesse Curry MD Spec. [place],Ur 1.020 Normal 1.010-1.020 [facility] Comment on above: Performed By: #### U MICAO, UAX #### [facility] [address] [place], [place] 668[address]83 Repair Coil Winder: Jesse Curry MD Urobilinogen,Ur Normal Normal NORM [facility] Comment on above: Performed By: #### U MICAO, UAX #### [address] [place], [place] 574[address]83 Repair Coil Winder: Jesse Curry MD Urinalysis,Microon 2 Bacteria TRACE Abnormal NONE [facility] Comment on above: Performed By: #### U MICAO, UAX #### [facility] [address] [place], [place] 357[address]83 Repair Coil Winder: Jesse Curry MD Epithelial cells LM Ql (Urine sed) 0 TO 2 Normal 0-25 [facility] Comment on above: Performed By: #### U MICAO, UAX #### [facility] [address] [place], [place] 236[address]83 Repair Coil Winder: Jesse Curry MD Urine RBC's None Normal 0-2 [facility] Comment on above: Performed By: #### U DARIO, UAX #### [facility] [address] [place] [address] Repair Coil Winder: Jesse Curry MD Urine WBC's 0 TO 2 Normal 0-5 [facility] Comment on above: Performed By: #### U DARIO UAX #### [facility] [address] [place] [address] Repair Coil Winder: Jesse Curry MD CBC AUTO DIFFon 02-20-2022 BASO # 0.1 103/ul Normal 0.0-0.1 [facility] Comment on above: Performed By: #### C BC #### [facility] [address] [place] [address] Dr. Claire Mayes Basophils/100 WBC (Bld) 0.8 % Normal 0.2-2.0 [facility] Comment on above: Performed By: #### C BC #### [facility] [address] [place] [address] Dr. Claire Mayes EO # 0.2 103/ul Normal 0.0-0.7 [facility] Comment on above: Performed By: #### C BC #### [facility] [address] [place] [address] Dr. Claire Mayes Eosinophils/100 WBC (Bld) 0.9 % Normal 0.9-7.0 [facility] Comment on above: Performed By: #### C BC #### [facility] [address] [place] [address] Dr. Claire Mayes Erythrocyte distribution width (RBC) [Ratio] 15.0 % Normal 11.0-15.0 [facility] Comment on above: Performed By: #### C BC #### [facility] [address] [place] [address] Dr. Claire Mayes Hematocrit (Bld) [Volume fraction] 31.3 % Critically low 36.0-48.0 [facility] Comment on above: Performed By: #### C BC #### [facility] [address] [address] [address] Claire Mayes Hemoglobin (Bld) [Mass/Vol] 10.3 g/dL Critically low 12.0-16.0 [facility] Comment on above: Performed By: #### C BC #### [facility] [address] [address] [address] Claire Mayes IG # 0.21 10e3/ul Critically high 0.00-0.03 [facility] Comment on above: Performed By: #### C BC #### [facility] [address] [place] [address] Dr. Claire Mayes IG % 1.3 % Critically high 0.0-0.5 [facility] Comment on above: Performed By: #### C BC #### [facility] [address] [place] [address] Dr. Claire Mayes LYMPH # 2.1 103/ul Normal 1.2-3.8 [facility] Comment on above: Performed By: #### C BC #### [facility] [address] [place] [address] Dr. Claire Mayes Lymphocytes/100 WBC (Bld) 12.6 % Critically low 20.5-60.0 [facility] Comment on above: Performed By: #### C BC #### [facility] [address] [place] [address] Dr. Claire Mayes MANUAL DIFF REQ NO Normal [facility] Comment on above: Performed By: #### C BC #### [facility] [address] [place] [address] Dr. Claire Mayes MCH (RBC) [Entitic mass] 29.8 pg Normal 26.7-34.0 [facility] Comment on above: Performed By: #### C BC #### [facility] [address] [place] [address] Dr. Claire Mayes MCHC (RBC) [Mass/Vol] 32.9 g/dL Normal 29.9-35.2 [facility] Comment on above: Performed By: #### C BC #### [facility] [address] [place] [address] Dr. Claire Mayes MCV (RBC) [Entitic vol] 90.5 fL Normal 81.0-99.0 [facility] Comment on above: Performed By: #### C BC #### [facility] [address] [place] [address] Dr. Claire Mayes MONO # 0.8 103/ul Normal 0.3-0.8 [facility] Comment on above: Performed By: #### C BC #### [facility] [address] [address] [address] Claire Mayes Monocytes/100 WBC (Bld) 5.1 % Normal 1.7-12.0 [facility] Comment on above: Performed By: #### C BC #### [facility] [address] [place] [address] Dr. Claire Mayes NEUT # 13.2 103/ul Critically high 1.4-6.5 [facility] Comment on above: Performed By: #### C BC #### [facility] [address] [place] [address] Dr. Claire Mayes Neutrophils/100 WBC (Bld) 79.3 % Critically high 43.0-75.0 [facility] Comment on above: Performed By: #### C BC #### [facility] [address] [place] [address] Dr. Claire Mayes Platelet mean volume (Bld) [Entitic vol] 10.4 fL Normal 9.5-13.5 [facility] Comment on above: Performed By: #### C BC #### [facility] [address] [place] [address] Dr. Claire Mayes PLT 233 103/ul Normal 150-450 [facility] Comment on above: Performed By: #### C BC #### [facility] [address] [place] [address] Dr. Claire Mayes RBC 3.46 106/ul Critically low 4.20-5.40 [facility] Comment on above: Performed By: #### C BC #### [facility] [address] [place] [address] Dr. Claire Mayes WBC 16.6 103/ul Critically high 4.0-11.0 [facility] Comment on above: Performed By: #### C BC #### [facility] [address] [place] [address] Dr. Claire Mayes CBC AUTO DIFFon 02-18-2022 BASO # 0.1 103/ul Normal 0.0-0.1 [facility] Comment on above: Performed By: #### C BC #### [facility] [address] [place] [address] Dr. Claire Mayes Basophils/100 WBC (Bld) 0.7 % Normal 0.2-2.0 [facility] Comment on above: Performed By: #### C BC #### [facility] [address] [place] [address] Dr. Claire Mayes EO # 0.2 103/ul Normal 0.0-0.7 [facility] Comment on above: Performed By: #### C BC #### [facility] [address] [place] [address] Dr. Claire Mayes Eosinophils/100 WBC (Bld) 1.2 % Normal 0.9-7.0 [facility] Comment on above: Performed By: #### C BC #### [facility] [address] [place] [address] Dr. Claire Mayes Erythrocyte distribution width (RBC) [Ratio] 15.0 % Normal 11.0-15.0 [facility] Comment on above: Performed By: #### C BC #### [facility] [address] [place] [address] Dr. Claire Mayes Hematocrit (Bld) [Volume fraction] 35.1 % Critically low 36.0-48.0 [facility] Comment on above: Performed By: #### C BC #### [facility] [address] [place] [address] Dr. Claire Mayes Hemoglobin (Bld) [Mass/Vol] 11.8 g/dL Critically low 12.0-16.0 [facility] Comment on above: Performed By: #### C BC #### [facility] [address] [place] [address] Dr. Claire Mayes IG # 0.30 10e3/ul Critically high 0.00-0.03 [facility] Comment on above: Performed By: #### C BC #### [facility] [address] [place] [address] Dr. Claire Mayes IG % 1.9 % Critically high 0.0-0.5 [facility] Comment on above: Performed By: #### C BC #### [facility] [address] [place] [address] Dr. Claire Mayes LYMPH # 2.9 103/ul Normal 1.2-3.8 [facility] Comment on above: Performed By: #### C BC #### [facility] [address] [place] [address] Dr. Claire Mayes Lymphocytes/100 WBC (Bld) 18.5 % Critically low 20.5-60.0 [facility] Comment on above: Performed By: #### C BC #### [facility] [address] [place] [address] Dr. Claire Mayes MANUAL DIFF REQ NO Normal [facility] Comment on above: Performed By: #### C BC #### [facility] [address] [place] [address] Dr. Claire Mayes MCH (RBC) [Entitic mass] 30.2 pg Normal 26.7-34.0 [facility] Comment on above: Performed By: #### C BC #### [facility] [address] [place] [address] Dr. Claire Mayes MCHC (RBC) [Mass/Vol] 33.6 g/dL Normal 29.9-35.2 [facility] Comment on above: Performed By: #### C BC #### [facility] [address] [place] [address] Dr. Claire Mayes MCV (RBC) [Entitic vol] 89.8 fL Normal 81.0-99.0 [facility] Comment on above: Performed By: #### C BC #### [facility] [address] [place] [address] Dr. Claire Mayes MONO # 0.7 103/ul Normal 0.3-0.8 [facility] Comment on above: Performed By: #### C BC #### [facility] [address] [place] [address] Dr. Claire Mayes Monocytes/100 WBC (Bld) 4.7 % Normal 1.7-12.0 [facility] Comment on above: Performed By: #### C BC #### [facility] [address] [place] [address] Dr. Claire Mayes NEUT # 11.3 103/ul Critically high 1.4-6.5 [facility] Comment on above: Performed By: #### C BC #### [facility] [address] [place] [address] Dr. Claire Mayes Neutrophils/100 WBC (Bld) 73.0 % Normal 43.0-75.0 [facility] Comment on above: Performed By: #### C BC #### [facility] [address] [place] [address] Dr. Claire Mayes Platelet mean volume (Bld) [Entitic vol] 10.8 fL Normal 9.5-13.5 [facility] Comment on above: Performed By: #### C BC #### [facility] [address] [place] [address] Dr. Claire Mayes PLT 233 103/ul Normal 150-450 [facility] Comment on above: Performed By: #### C BC #### [facility] [address] [place] [address] Dr. Claire Mayes RBC 3.91 106/ul Critically low 4.20-5.40 [facility] Comment on above: Performed By: #### C BC #### [facility] [address] [place] [address] Dr. Claire Mayes WBC 15.5 103/ul Critically high 4.0-11.0 [facility] Comment on above: Performed By: #### C BC #### [facility] [address] [place] [address] Dr. Claire Mayes [facility]on 04-0 6-2022 SARS-CoV-2 (COVID-19) RNA FERDINAND+probe Ql (Unsp spec) Not detected Normal NOT DETECTED [facility] Comment on above: Result Comment: When [...] for this test is supported by the [employer] Analyst of Health and Human Service's declaration that [...] By: #### C VDTBH #### [facility] [address] [place] [address] Dr. Claire Mayes DRUG SCREEN RAPID (URINE)on 02-18-2022 AMP Negative Normal NEGATIVE [facility] Comment on above: Performed By: #### D RUGRPD #### [facility] [address] [place] [address] Dr. Claire Mayes BAR Negative Normal NEGATIVE [facility] Comment on above: Performed By: #### D RUGRPD #### [facility] [address] [place] [address] Dr. Claire Mayes BUP Negative Normal NEGATIVE [facility] Comment on above: Performed By: #### D RUGRPD #### [facility] [address] [place] [address] Dr. Claire Mayes BZO Negative Normal NEGATIVE [facility] Comment on above: Performed By: #### D RUGRPD #### [facility] [address] [place] [address] Dr. Claire Mayes KIT Negative Normal NEGATIVE [facility] Comment on above: Performed By: #### D RUGRPD #### [facility] [address] [place] [address] Dr. Claire Mayes CUT-OFFS SEE BELOW Normal [facility] Comment on above: Result Comment: AMP (Amphetamine): [...] By: #### D RUGRPD #### [facility] [address] [place] [address] Dr. Claire Mayes DRUG CUT HEADER DRUG CLASS TEST SYST EM CUT-OFF CONCENTRATIONS ARE FOLLOWS: Normal [facility] Comment on above: Performed By: #### D RUGRPD #### [facility] [address] [place] [address] Dr. Claire Mayes mAMP Negative Normal NEGATIVE [facility] Comment on above: Performed By: #### D RUGRPD #### [facility] [address] [place] [address] Dr. Claire Mayes MTD Negative Normal NEGATIVE [facility] Comment on above: Performed By: #### D RUGRPD #### [facility] [address] [place] [address] Dr. Claire Mayes OPI Negative Normal NEGATIVE [facility] Comment on above: Performed By: #### D RUGRPD #### [facility] [address] [place] [address] Dr. Claire Mayes OXY Negative Normal NEGATIVE [facility] Comment on above: Performed By: #### D RUGRPD #### [facility] [address] [place] [address] Dr. Claire Mayes PCP Negative Normal NEGATIVE [facility] Comment on above: Performed By: #### D RUGRPD #### [facility] [address] [address] [address] Claire Mayes PPX Negative Normal NEGATIVE [facility] Comment on above: Performed By: #### D RUGRPD #### [facility] [address] [address] [address] Claire Mayes TCA Negative Normal NEGATIVE [facility] Comment on above: Performed By: #### D RUGRPD #### [facility] [address] [address] [address] Claire Mayes THC Negative Normal NEGATIVE [facility] Comment on above: Performed By: #### D RUGRPD #### [facility] [address] [address] [address] Claire Mayes TYPE AND SCREENon 02-18-2022 TYPE AND SCREEN Negative Normal [facility] Comment on above: Performed By: #### T NS #### [facility] [address] [place] [address] Dr. Claire Mayes US PREG BIOPHY W [...] Date: 2022-02-17 14:27 Normal [facility] US PREG BIOPHY W NON STRESSo [...] by: BLU FELIPE Date: 2022-02-10 16:40 Normal [facility] GROUP B STREP CULTUREon 01-14 S. agalactiae Ag Ql (Unsp spec) Culture Observations: Beta Strep called to Belgica Lange at office 02/04/22 @[address] [place] [address] Isolate 1 Streptococcus agalactiae Heavy growth of ORGANISM 1 Streptococcus agalactiae ANTIBIOTIC M.I.C RX STATUS Benzylpenicillin <=0.06 S F Ampicillin <=0.25 S F Cefotaxime <=0.12 S F Ceftriaxone <=0.12 S F Levofloxacin 0.5 S F Erythromycin 2 R F Clindamycin <=0.25 S F Linezolid <=2 S F Vancomycin 0.5 S F Tetracycline >=16 R F Normal [facility] Comment on above: Performed By: #### G BSCX #### [facility] [address] [place] [address] Dr. 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 Verbal consent obtained for telemedicine visit. 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 Hx: LMP: 05/29/21 Menstrual cycles: Have been fairly regular for the past 3 months; 30-35 days Pap smear: 2018, up to date Mammogram: None PMH/Surg Hx/Social Hx: See below Hx of Clotting disorders: Yes- Protein S deficiency Currently on Lovenox 40 mg daily Was on Lovenox 60 mg daily prior to Needs to be on therapeutic dosing when Genetic Screening Hx: [employer] Reader screen negative Partner History: Franklin Ashley 04/09/1990 SA in past year: 2.8 cc 125 mil/mL 69% motility SXQ=767 million (recent IUI sample) Morph from original SA was 2.8% Active Problems Problems 16 weeks gest (more content not included)... Normal [employer] CBC AND DIFFERENTIALon 08-06 % AUTOMATED IMMATURE GRAN 0.3 % Normal 0.0 - 0.9 [facility] Comment on above: Result Comment: Graciela ture Granulocyte Count (IG) includes promyelocytes, myelocytes and metamyelocytes but does not include bands. Percent differential counts (%) should be interpreted in the context of the absolute cell counts (cells/L). Performed By: #### C BCDF #### [address] [place] [address] Basophils (Bld) [#/Vol] 0.09 10*3/uL Normal 0.00 - 0.10 [facility] Comment on above: Performed By: #### C BCDF #### [address] [place] [address] Basophils/100 WBC (Bld) 0.9 % Normal 0.0 - 2.0 [facility] Comment on above: Performed By: #### C BCDF #### [address] [place] [address] Eosinophils (Bld) [#/Vol] 0.23 10*3/uL Normal 0.00 - 0.70 [facility] Comment on above: Performed By: #### C BCDF #### [address] [place] [address] Eosinophils/100 WBC (Bld) 2.4 % Normal 0.0 - 6.0 [facility] Comment on above: Performed By: #### C BCDF #### [address] [place] [address] Erythrocyte distribution width (RBC) [Ratio] 14.3 % Normal 11.5 - 14.5 [facility] Comment on above: Performed By: #### C BCDF #### [address] [place] [address] Hematocrit (Bld) [Volume fraction] 40.4 % Normal 36.0 - 46.0 [facility] Comment on above: Performed By: #### C BCDF #### [address] [place] [address] Hemoglobin (Bld) [Mass/Vol] 12.9 g/dL Normal 12.0 - 16.0 [facility] Comment on above: Performed By: #### C BCDF #### [address] [place] [address] Lymphocytes (Bld) [#/Vol] 2.44 10*3/uL Normal 1.20 - 4.80 [facility] Comment on above: Performed By: #### C BCDF #### [address] [place] [address] Lymphocytes/100 WBC (Bld) 25.7 % Normal 13.0 - 44.0 [facility] Comment on above: Performed By: #### C BCDF #### [address] [place] [address] MCHC (RBC) [Mass/Vol] 31.9 g/dL Low 32.0 - 36.0 [facility] Comment on above: Performed By: #### C BCDF #### [address] [place] [address] MCV (RBC) [Entitic vol] 88 fL Normal 80 - 100 [facility] Comment on above: Performed By: #### C BCDF #### [address] [place] [address] Monocytes (Bld) [#/Vol] 0.55 10*3/uL Normal 0.10 - 1.00 [facility] Comment on above: Performed By: #### C BCDF #### [address] [place] [address] Monocytes/100 WBC (Bld) 5.8 % Normal 2.0 - 10.0 [facility] Comment on above: Performed By: #### C BCDF #### [address] [place] [address] Neutrophils (Bld) [#/Vol] 6.15 10*3/uL Normal 1.20 - 7.70 [facility] Comment on above: Performed By: #### C BCDF #### [address] [place] [address] Neutrophils/100 WBC (Bld) 64.9 % Normal 40.0 - 80.0 [facility] Comment on above: Performed By: #### C BCDF #### [address] [place] [address] Platelets (Bld) [#/Vol] 410 10*3/uL Normal 150 - 450 [facility] Comment on above: Performed By: #### C BCDF #### [address] [place] [address] RBC (Bld) [#/Vol] 4.58 x10E12/L Normal 4.00 - 5.20 [facility] Comment on above: Performed By: #### C BCDF #### [address] [place] [address] WBC (Bld) [#/Vol] 9.5 10*3/uL Normal 4.4 - 11.3 [facility] Comment on above: Performed By: #### C BCDF #### [address] 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 Reports her asthma is stable. [...] or homicidal ideation Vitals Vital Signs Recorded: [id number] 01:08PM Heart Rate62 Wfzgwuuv201 Dqkhqhcmp48 Height5 ft 2 in Jmlhae679 lb BMI Dnzhekyfzu70.28 BSA Calculated1.79 Tobacco Useb) No Fall Screeninga) [...] ongoing well-woman care with her current local Drum Filler. She has Hematology follow-up today following our [...] Aug 06 2020 2:00PM EST (Author) Normal [facility] Complete Blood Count + Diffe marc 06-27-2020 Basophils/100 WBC (Bld) 0.5 % 0.0 - 2.0 XR-UMRUK-Qhpvr[address] Work Phone: Eosinophils (Bld) [#/Vol] 0.24 {x10E9/L} See Below OJ-WTJVM-Xatrm[address] Work Phone: Comment on above: Reference Range: 0.0 0 - 0.70 Eosinophils/100 WBC (Bld) 1.1 % 0.0 - 6.0 PT-HTJWX-Wblba[address] Work Phone: Erythrocyte distribution width (RBC) [Ratio] 15.0 % above high threshold See Below DJ-HRFKZ-Lzcbw[address] Work Phone: Comment on above: Reference Range: 11. 5 - 14.5 Hematocrit (Bld) [Volume fraction] 30.0 % below low threshold See Below VM-RJRQP-Ezrod[address] Work Phone: Comment on above: Reference Range: 36. 0 - 46.0 Hemoglobin (Bld) [Mass/Vol] 9.8 g/dL below low threshold See Below ZL-GRIWE-Mgaoo[address] Work Phone: Comment on above: Reference Range: 12. 0 - 16.0 Lymphocytes (Bld) [#/Vol] 2.25 {x10E9/L} See Below GL-TFDOM-Cwypv wn 2nd Fl Work Phone: Comment on above: Reference Range: 1.2 0 - 4.80 Lymphocytes/100 WBC (Bld) 10.4 % See Below VO-ZJFSU-Thlhn wn 2nd Fl Work Phone: Comment on above: Reference Range: 13. 0 - 44.0 MCHC (RBC) [Mass/Vol] 32.7 g/dL See Below XB-ITLZV-Euilq wn 2nd Fl Work Phone: Comment on above: Reference Range: 32. 0 - 36.0 MCV (RBC) [Entitic vol] 91 fL 80 - 100 MY-VGVOW-Xuawf wn 2nd Fl Work Phone: Monocytes (Bld) [#/Vol] 0.84 {x10E9/L} See Below LJ-KIIEZ-Xqjyw wn 2nd Fl Work Phone: Comment on above: Reference Range: 0.1 0 - 1.00 Monocytes/100 WBC (Bld) 3.9 % 2.0 - 10.0 QU-XJXAG-Jrper wn 2nd Fl Work Phone: Neutrophils/100 WBC (Bld) 82.7 % See Below FB-MUYLV-Xewvh wn 2nd Fl Work Phone: Comment on above: Reference Range: 40. 0 - 80.0 Platelets (Bld) [#/Vol] 225 {x10E9/L} 150 - 450 NP-XJVTY-Gumzp wn 2nd Fl Work Phone: RBC (Bld) [#/Vol] 3.31 {x10E12/L} below low threshold See Below DZ-NEQHA-Wtfqi [facility] Fl Work Phone: Comment on above: Reference Range: 4.0 0 - 5.20 WBC (Bld) [#/Vol] 0.0 {/100_WBC} 0.0-0.0 MG- OBGYN[address] Fl Work Phone: WBC (Bld) [#/Vol] 21.6 {x10E9/L} above high threshold 4.4 - 11.3 SI-TWWAO-Ngjtv wn 2nd Fl Work Phone: Complete Blood Count + Differential 0.11 {x10E9/L} above high threshold See Below HT-KZMHJ-Xbcwp[address] Work Phone: Comment on above: Reference Range: 0.0 0 - 0.10 Complete Blood Count + Differential 1.4 % above high threshold 0.0 - 0.9 VS-DVSAK-Vmwdh[address] Work Phone: Comment on above: Immature Granulocyte Count (IG) includes promyelocytes, myelocytes and metamyelocytes but does not include bands. Percent differential counts (%) should be interpreted in the context of the absolute cell counts (cells/L). Complete Blood Count + Differential 17.85 {x10E9/L} above high threshold See Below PZ-TKXKZ-Ymunh[address] Work Phone: Comment on above: Reference Range: 1.2 0 - 7.70 Hematologyon 06-26-2020 Hematocrit (Bld) [Volume fraction] 30.5 % below low threshold See Below TS-MPQVT-Yxkgm wn 2nd Fl Work Phone: Comment on above: Reference Range: 36. 0 - 46.0 Hemoglobin (Bld) [Mass/Vol] 10.7 g/dL below low threshold See Below US-VINIQ-Tuojs[address] Work Phone: Comment on above: Reference Range: 12. 0 - 16.0 MCV (RBC) [Entitic vol] 84 fL 80 - 100 QB-MHCGX-Rertg[address] Work Phone: Platelets (Bld) [#/Vol] 258 {x10E9/L} 150 - 450 MH-ZWBCV-Shiej[address] Work Phone: RBC (Bld) [#/Vol] 3.62 {x10E12/L} below low threshold See Below HX-CZSSB-Wabtb wn 2nd Fl Work Phone: Comment on above: Reference Range: 4.0 0 - 5.20 WBC (Bld) [#/Vol] 0.0 {/100_WBC} 0.0-0.0 MG- OBGYN-Midto wn 2nd Fl Work Phone: WBC (Bld) [#/Vol] 35.7 {x10E9/L} above high threshold 4.4 - 11.3 LZ-TUOVC-Tchbf wn 2nd Fl Work Phone: Otheron 06-26-2020 Erythrocyte distribution width (RBC) [Ratio] 14.6 % above high threshold See Below DR-MQTSO-Lwvxl wn 2nd Fl Work Phone: Comment on above: Reference Range: 11. 5 - 14.5 MCHC (RBC) [Mass/Vol] 35.1 g/dL See Below NI-MHTNG-Btdop wn 2nd Fl Work Phone: Comment on [...] 3.5 cm, located 1.0 cm from themargin. Cat Scanner Operator sections are submitted in 5 cassettes.AXQ/LMPSummary of Cassettes:Specimen Label SiteA 1 umbilical cord sections 2 membrane rolls 3 placental parenchyma, umbilical cord insertion site 4 placental parenchyma 5 placental parenchyma, lesionaxq/06/26/2020 HE-LPXHR-Fbyxu [address] Work Phone: Coronavirus 2019 RNA by PCR, Symptomaticon 06-25-2020 Coronavirus 2019 RNA by PCR, Symptomatic NOT DETECTED See Below BN-INNXG-Puxbj [address] Work Phone: Comment on above: [...] this test method. Fact sheet for providers: www.fda.gov/media/777457/downloadFact sheet for patients: www.fda.gov/media/011599/downloadThis test has received FDA Emergency Use Authorization (EUA) and has been verified by [facility] ([facility]). This test is only authorized for the duration of time that circumstances exist to justify the authorization of the emergency use of in vitro diagnostic tests for the detection of SARS-CoV-2 virus and/or diagnosis of COVID-19 infection under section 564(b)(1) of the Act, 21 U.S.C. 360bbb-3(b)(1), unless the authorization is terminated or revoked sooner. [facility] is certified under CLIA-88 as qualified to perform high complexity testing. Testing is performed in the [facility] laboratories located at [address] [place] [address]. Hematologyon 06-25-2020 ABO group Nom (Bld) A [address] Work Phone: Blood group antibody screen Ql Negative [address] Work Phone: Hematocrit (Bld) [Volume fraction] 34.7 % below low threshold See Below [address] Work Phone: Comment on above: Reference Range: 36. 0 - 46.0 Hemoglobin (Bld) [Mass/Vol] 11.6 g/dL below low threshold See Below [address] Work Phone: Comment on above: Reference Range: 12. 0 - 16.0 MCV (RBC) [Entitic vol] 90 fL 80 - [address] Work Phone: Platelets (Bld) [#/Vol] 268 {x10E9/L} 150 - [address] Work Phone: RBC (Bld) [#/Vol] 3.85 {x10E12/L} below low threshold See Below AZ-LSVEK-Pxpbw[address] Work Phone: Comment on above: Reference Range: 4.0 0 - 5.20 Rh immune globulin screen (Bld) [Interp] Positive ST-PYIJG-Aicnf[address] Work Phone: WBC (Bld) [#/Vol] 0.0 {/100_WBC} 0.0-0.0 MG- OBGYN[address] Work Phone: WBC (Bld) [#/Vol] 15.5 {x10E9/L} above high threshold 4.4 - 11.3 TD-AVSXB-Vnazo[address] Work Phone: Otheron 06-25-2020 Erythrocyte distribution width (RBC) [Ratio] 14.4 % See Below UC-XWSEN-Lyydh[address] Work Phone: Comment on above: Reference Range: 11. 5 - 14.5 MCHC (RBC) [Mass/Vol] 33.4 g/dL See Below EM-KMIWE-Jhozu[address] Work Phone: Comment on above: Reference Range: 32. 0 - 36.0 SYPHILIS SCREENING WITH REFL EXon 06-25-2020 T. pallidum IgG+IgM IA Ql (S) NONREACTIVE See Below [address] Work Phone: Comment on above: SOURCE: Reference Ra nge: NONREACTIVENo significant level of Treponema pallidum antibody detected. Repeat testing in 2 to 4 weeks may be considered if early infection or incubating syphilis infection is suspected. Imm/Pathon 06-07-2020 Bacteria identified Aer cx Nom (Genital specimen) PATIENT: KIARA ASHLEY LOCATION: [facility] [place] BILL#: [id number] : 89 AGE: SEX: F ORDERED BY: PARAS GUEVARA: VAGINAL COLLECTED: 06/07/20 09:36ANTIBIOTICS AT [facility].: RECEIVED : 06/08/20 07:27SITE: VAGINAL R E S U L T S GROUP B STREP SCREEN PRELIM 06/09/20 08:35 CULTURE IN PROGRESS. NX-IUFGD-RFS [address] [place] Work Phone: Bacteria identified Aer cx Nom (Genital specimen) PATIENT: KIARA ASHLEY LOCATION: [facility] [place] BILL#: [id number] : 89 AGE: SEX: F ORDERED BY: PARAS GUEVARA: VAGINAL COLLECTED: 06/07/20 09:36ANTIBIOTICS AT [place].: RECEIVED : 06/08/20 07:27SITE: VAGINAL R E S U L T S GROUP B STREP SCREEN FINAL 06/10/20 11:54 NEGATIVE FOR GROUP B BETA STREP. PX-PWHSL-Dmnxk [address] Work Phone: Otheron 06-07-2020 [...] growth-No malformations were identified on a limited survey-[facility] 06/22 The patient is aware [...] signed by: RILEY TREVIÑO 06/07/20 09:33 Normal JC-SVHQH-HTD [address] [place] Work Phone: Comment on above: ORDER REVISED TO A O B FOLLOW UP OR REPEAT SCAN BY RADIOLOGIST; Original Order Number: [id number] CBC AND DIFFERENTIALon 04-24 % AUTOMATED IMMATURE GRAN 1.9 % High 0.0 - 0.9 [facility] Comment on above: Result Comment: Graciela ture Granulocyte Count (IG) includes promyelocytes, myelocytes and metamyelocytes but does not include bands. Percent differential counts (%) should be interpreted in the context of the absolute cell counts (cells/L). Performed By: #### C BCDF #### [address] [place] [address] Basophils (Bld) [#/Vol] 0.08 10*3/uL Normal 0.00 - 0.10 [facility] Comment on above: Performed By: #### C BCDF #### [address] [place] [address] Basophils/100 WBC (Bld) 0.5 % Normal 0.0 - 2.0 [facility] [place] [facility] Comment on above: Performed By: #### C BCDF #### [address] [place] [address] Eosinophils (Bld) [#/Vol] 0.22 10*3/uL Normal 0.00 - 0.70 [facility] Comment on above: Performed By: #### C BCDF #### [address] [place] [address] Eosinophils/100 WBC (Bld) 1.5 % Normal 0.0 - 6.0 [facility] [place] Comment on above: Performed By: #### C BCDF #### [address] [place] [address] Erythrocyte distribution width (RBC) [Ratio] 14.0 % Normal 11.5 - 14.5 [facility] [place] Comment on above: Performed By: #### C BCDF #### [address] [place] [address] Hematocrit (Bld) [Volume fraction] 35.6 % Low 36.0 - 46.0 [facility] [place] Comment on above: Performed By: #### C BCDF #### [address] [place] [address] Hemoglobin (Bld) [Mass/Vol] 11.8 g/dL Low 12.0 - 16.0 [facility] [place] Comment on above: Performed By: #### C BCDF #### [address] [place] [address] Lymphocytes (Bld) [#/Vol] 2.38 10*3/uL Normal 1.20 - 4.80 [facility] [place] Comment on above: Performed By: #### C BCDF #### [address] [place] [address] Lymphocytes/100 WBC (Bld) 16.0 % Normal 13.0 - 44.0 [facility] [place] Comment on above: Performed By: #### C BCDF #### [address] [place] [address] MCHC (RBC) [Mass/Vol] 33.1 g/dL Normal 32.0 - 36.0 [facility] [place] Comment on above: Performed By: #### C BCDF #### [address] [place] [address] MCV (RBC) [Entitic vol] 92 fL Normal 80 - 100 [facility] [place] Comment on above: Performed By: #### C BCDF #### [address] [place] [address] Monocytes (Bld) [#/Vol] 0.74 10*3/uL Normal 0.10 - 1.00 [facility] [place] Comment on above: Performed By: #### C BCDF #### [address] [place] [address] Monocytes/100 WBC (Bld) 5.0 % Normal 2.0 - 10.0 [facility] [place] Comment on above: Performed By: #### C BCDF #### [address] [place] [address] Neutrophils (Bld) [#/Vol] 11.17 10*3/uL High 1.20 - 7.70 [facility] [place] Comment on above: Performed By: #### C BCDF #### [address] [place] [address] Neutrophils/100 WBC (Bld) 75.1 % Normal 40.0 - 80.0 [facility] [place] Comment on above: Performed By: #### C BCDF #### [address] [place] [address] Platelets (Bld) [#/Vol] 285 10*3/uL Normal 150 - 450 [facility] [place] Comment on above: Performed By: #### C BCDF #### [address] [place] [address] RBC (Bld) [#/Vol] 3.89 x10E12/L Low 4.00 - 5.20 [facility] [place] Comment on above: Performed By: #### C BCDF #### [address] [place] [address] WBC (Bld) [#/Vol] 14.9 10*3/uL High 4.4 - 11.3 [facility] Comment on above: Performed By: #### C BCDF #### [address] [place] [address] COMPREHENSIVE PANELon 2019 ALP [Catalytic activity/Vol] 79 U/L Normal 33 - 110 [facility] [place] Comment on above: Performed By: #### C MP #### [address] [place] [address] [place] [id number] [place] [address] ALT [Catalytic activity/Vol] 7 U/L Normal 7 - 45 [facility] [place] Comment on above: Result Comment: Melida ents treated with Sulfasalazine may generate falsely decreased results for ALT. Performed By: #### C MP #### [address] [place] [address] [facility] [address] [place] [address] AST [Catalytic activity/Vol] 13 U/L Normal 9 - 39 [facility] [place] Comment on above: Performed By: #### C MP #### [address] [place] [address] [place] [address] Bilirubin [Mass/Vol] 0.3 mg/dL Normal 0.0 - 1.2 [facility] [place] Comment on above: Performed By: #### C MP #### [address] [place] [address] [place] [address] Protein [Mass/Vol] 5.9 g/dL Low 6.4 - 8.2 [facility] [place] Comment on above: Performed By: #### C MP #### [address] [place] [address] [place] [place] [address] Anion gap [Moles/Vol] 12 mmol/L Normal 10 - 20 [facility] [place] Comment on above: Performed By: #### C MP #### [address] [place] [address] [place] [place] [address] Chloride [Moles/Vol] 106 mmol/L Normal 98 - 107 [facility] [place] Comment on above: Performed By: #### C MP #### [address] [place] [address] [place] [place] [address] Potassium [Moles/Vol] 3.7 mmol/L Normal 3.5 - 5.3 [facility] [place] Comment on above: Performed By: #### C MP #### [address] [place] [address] [place] [place] [address] Sodium [Moles/Vol] 137 mmol/L Normal 136 - 145 [facility] [place] Comment on above: Performed By: #### C MP #### [address] [place] [address] [place] [address] Calcium [Mass/Vol] 9.2 mg/dL Normal 8.6 - 10.3 [facility] [place] Comment on above: Performed By: #### C MP #### [address] [place] [address] [place] [address] Glucose [Mass/Vol] 95 mg/dL Normal 74 - 99 [facility] [place] Comment on above: Performed By: #### C MP #### [address] [place] [address] [place] [address] Urea nitrogen [Mass/Vol] 7 mg/dL Normal 6 - 23 [facility] [place] Comment on above: Performed By: #### C MP #### [address] [place] [address] [place] [address] Albumin [Mass/Vol] 3.4 g/dL Normal 3.4 - 5.0 [facility] [place] Comment on above: Performed By: #### C MP #### [address] [place] [address] [place] [address] Creatinine [Mass/Vol] 0.70 mg/dL Normal 0.50 - 1.05 [facility] [place] Comment on above: Performed By: #### C MP #### [address] [place] [address] [place] [address] GFR- AM. >60 Normal >60 [facility] [place] Comment on above: Result Comment: CALC ULATIONS OF ESTIMATED GFR ARE PERFORMED USING THE MDRD STUDY EQUATION FOR THE IDMS-TRACEABLE CREATININE METHODS. CLIN CHEM 2007;53:766-72 Performed By: #### C MP #### [address] [place] [address] [place] [address] GFR-NON AM. >60 Normal >60 [facility] Comment on above: Performed By: #### C MP #### [address] [place] [address] [place] [place] [address] HCO3 (Bld) [Moles/Vol] 23 mmol/L Normal 21 - 32 [facility] Comment on above: Performed By: #### C MP #### [address] [place] [address] [place] [address] FERRITINon 04-24-2020 Ferritin [Mass/Vol] 8 ug/L Normal 8 - 150 [facility] Comment on above: Performed By: #### F ERRI #### [address] [place] [address] IRON + TIBCon 04-24-2020 % SATURATION 14 % Low 25 - 45 [facility] Comment on above: Performed By: #### I RONT #### [address] [place] [address] Iron [Mass/Vol] 65 ug/dL Normal 35 - 150 [facility] Comment on above: Performed By: #### I RONT #### [address] [place] [address] TIBC 449 ug/dL High 240 - 445 [facility] Comment on above: Performed By: #### I RONT #### [address] [place] [address] Complete Blood Count + Diffe rentialon 12-25-2019 Basophils/100 WBC (Bld) 1.0 % 0.0 - 2.0 LS-NJWEZ-QXA [address] [place] Work Phone: Eosinophils (Bld) [#/Vol] 0.37 {x10E9/L} See Below NM-DPBOI-RDT [address] [place] Work Phone: Comment on above: Reference Range: 0.0 0 - 0.70 Eosinophils/100 WBC (Bld) 3.0 % 0.0 - 6.0 JO-EQSBO-DKY [address] [place] Work Phone: Erythrocyte distribution width (RBC) [Ratio] 13.4 % See Below IA-XJTHK-HVW [address] [place] Work Phone: Comment on above: Reference Range: 11. 5 - 14.5 Hematocrit (Bld) [Volume fraction] 41.8 % See Below CH-QHBYL-RSX [address] [place] Work Phone: Comment on above: Reference Range: 36. 0 - 46.0 Hemoglobin (Bld) [Mass/Vol] 13.6 g/dL See Below FG-TXCBZ-ZCG [address] [place] Work Phone: Comment on above: Reference Range: 12. 0 - 16.0 Lymphocytes (Bld) [#/Vol] 2.52 {x10E9/L} See Below LQ-DWACV-GWB [address] [place] Work Phone: Comment on above: Reference Range: 1.2 0 - 4.80 Lymphocytes/100 WBC (Bld) 20.2 % See Below JH-CXMLV-CRE [address] [place] Work Phone: Comment on above: Reference Range: 13. 0 - 44.0 MCHC (RBC) [Mass/Vol] 32.5 g/dL See Below UC-PIHLR-LNE [address] [place] Work Phone: Comment on above: Reference Range: 32. 0 - 36.0 MCV (RBC) [Entitic vol] 95 fL 80 - 100 YZ-GVQTH-IDU [address] [place] Work Phone: Monocytes (Bld) [#/Vol] 0.58 {x10E9/L} See Below GA-XBRZJ-WJE [address] [place] Work Phone: Comment on above: Reference Range: 0.1 0 - 1.00 Monocytes/100 WBC (Bld) 4.6 % 2.0 - 10.0 WE-COFLM-OZB [address] [place] Work Phone: Neutrophils/100 WBC (Bld) 70.6 % See Below ER-MRGQF-PML [address] [place] Work Phone: Comment on above: Reference Range: 40. 0 - 80.0 Platelets (Bld) [#/Vol] 372 {x10E9/L} 150 - 450 RM-KLIZT-FRQ [address] [place] Work Phone: RBC (Bld) [#/Vol] 4.40 {x10E12/L} See Below MG -OBGYN-MAC [address] [place] Work Phone: Comment on above: Reference Range: 4.0 0 - 5.20 WBC (Bld) [#/Vol] 0.0 {/100_WBC} 0.0-0.0 MG- OBGYN-MAC [address] [place] Work Phone: WBC (Bld) [#/Vol] 12.7 {x10E9/L} above high threshold 4.4 - 11.3 XM-VJMTC-RNA [address] [place] Work Phone: Comment on above: SOURCE: Complete Blood Count + Differential 8.81 {x10E9/L} above high threshold See Below BC-UZKWT-FYW [address] [place] Work Phone: Comment on above: Reference Range: 1.2 0 - 7.70 Complete Blood Count + Differential 0.6 % 0.0 - 0.9 JK-HKYNX-JOX [address] [place] Work Phone: Comment on above: Percent differential counts (%) should be interpreted in the context of the absolute cell counts (cells/L). Complete Blood Count + Differential 0.13 {x10E9/L} above high threshold See Below XS-CBHND-LTR [address] [place] Work Phone: Comment on above: Reference Range: 0.0 0 - 0.10 Cult, Urineon 12-25-2019 Bacteria identified Cx Nom (U) PATIENT: KIARA ASHLEY LOCATION: [id number] BILL#: [id number] : 89 AGE: SEX: F ORDERED BY: PARAS GUEVARA: URINE COLLECTED: 12/25/19 09:41ANTIBIOTICS AT [place].: RECEIVED : 12/25/19 17:06SITE: Clean Catch/Voided R E S U L T S URINE CULTURE,BACTERIAL FINAL 12/26/19 10:21 NO SIGNIFICANT GROWTH. ED-AAULW-LCZ [address] [place] Work Phone: Hematologyon 12-25-2019 ABO group Nom (Bld) A OB-ROFJT-CXS [address] [place] Work Phone: Blood group antibody screen Ql Negative XE-LDNQX-AQQ [address] [place] Work Phone: Rh immune globulin screen (Bld) [Interp] Positive KA-JBTXR-XQD [address] [place] Work Phone: Hepatitis B Surface Antigeno n 12-25-2019 Hepatitis B Surface Antigen NONREACTIVE See Below BP-PRXVC-WJM [address] [place] Work Phone: Comment on above: [...] Hepatitis C Antibody Test NON-REACTIVE See Below OX-LKCXB-MWQ [address] [place] Work Phone: Comment on above: SOURCE: Reference Ra nge: NONREACTIVE Patients receiving more than 5 mg/day of biotin may have interference in test results. A sample should be taken no sooner than eight hours after previous dose. Contact the testing laboratory for additional information. Metabolic Panelon 12-25-2019 ALP [Catalytic activity/Vol] 67 U/L 33 - 110 BO-DHRZQ-NSY [address] [place] Work Phone: Anion gap [Moles/Vol] 15 mmol/L 10 - 20 FN-MKSCW-VEV [address] [place] Work Phone: Bilirubin [Mass/Vol] 0.3 mg/dL 0.0 - 1.2 NF-GTZLC-DRX [address] [place] Work Phone: Calcium [Mass/Vol] 9.6 mg/dL 8.6 - 10.6 PT-NJATR-QTJ [address] [place] Work Phone: Chloride [Moles/Vol] 104 mmol/L 98 - 107 CP-MNAEA-HIL [address] [place] Work Phone: CO2 [Moles/Vol] 21 mmol/L 21 - 32 MG-OBGYN- MAC [address] [place] Work Phone: Creatinine [Mass/Vol] 0.69 mg/dL See Below HV-BZBXH-YKZ [address] [place] Work Phone: Comment on above: Reference Range: 0.5 0 - 1.05 Glucose [Mass/Vol] 83 mg/dL 74 - 99 ZH-JDQZJ-TWY [address] [place] Work Phone: Comment on above: SOURCE: Potassium [Moles/Vol] 4.1 mmol/L 3.5 - 5.3 OH-GIIRZ-FXM [address] [place] Work Phone: Protein [Mass/Vol] 6.2 g/dL below low threshold 6.4 - 8.2 AD-UZOJE-XXK [address] [place] Work Phone: Sodium [Moles/Vol] 136 mmol/L 136 - 145 YJ-WNDPD-GVC [address] [place] Work Phone: Urea nitrogen [Mass/Vol] 9 mg/dL 6 - 23 LY-LJBSC-VAD [address] [place] Work Phone: Otheron 12-25-2019 Albumin BCP dye [Mass/Vol] 3.9 g/dL 3.4 - 5.0 VO-ALSCF-PPO [address] [place] Work Phone: ALT With P-5'-P [Catalytic activity/Vol] 8 U/L 7 - 45 FZ-BUJRP-NRF [address] [place] Work Phone: Comment on above: Patients treated wit h Sulfasalazine may generate falsely decreased results for ALT. AST With P-5'-P [Catalytic activity/Vol] 11 U/L 9 - 39 SK-LBDFI-MLC [address] [place] Work Phone: NONE UL-YMXGT-NQK [address] [place] Work Phone: >60 >60 FN-LJWTK-NMK [address] [place] Work Phone: Comment on above: CALCULATIONS OF MARÍA MATED GFR ARE PERFORMED USING THE MDRD STUDY EQUATION FOR THE IDMS-TRACEABLE CREATININE METHODS. CLIN CHEM 2007;53:766-72 SYPHILIS SCREENING WITH REFL EXon 12-25-2019 T. pallidum IgG+IgM IA Ql (S) NONREACTIVE See Below TT-MEPVF-VND [address] [place] Work Phone: Comment on above: SOURCE: Reference Ra nge: NONREACTIVENo significant level of Treponema pallidum antibody detected. Repeat testing in 2 to 4 weeks may be considered if early infection or incubating syphilis infection is suspected. CBC AND DIFFERENTIALon 11-21 % AUTOMATED IMMATURE GRAN 0.9 % Normal 0.0 - 0.9 [facility] Comment on above: Result Comment: Perc ent differential counts (%) should be interpreted in the context of the absolute cell counts (cells/L). Performed By: #### C BCDF #### [address] [place] [address] Basophils (Bld) [#/Vol] 0.16 10*3/uL High 0.00 - 0.10 [facility] Comment on above: Performed By: #### C BCDF #### [address] [place] [address] Basophils/100 WBC (Bld) 1.2 % Normal 0.0 - 2.0 [facility] [place] Comment on above: Performed By: #### C BCDF #### [address] [place] [address] Eosinophils (Bld) [#/Vol] 0.80 10*3/uL High 0.00 - 0.70 [facility] Comment on above: Performed By: #### C BCDF #### [address] [place] [address] Eosinophils/100 WBC (Bld) 5.8 % Normal 0.0 - 6.0 [facility] Comment on above: Performed By: #### C BCDF #### [address] [place] [address] Erythrocyte distribution width (RBC) [Ratio] 13.6 % Normal 11.5 - 14.5 [facility] Comment on above: Performed By: #### C BCDF #### [address] [place] [address] Hematocrit (Bld) [Volume fraction] 39.4 % Normal 36.0 - 46.0 [facility] Comment on above: Performed By: #### C BCDF #### [address] [place] [address] Hemoglobin (Bld) [Mass/Vol] 13.0 g/dL Normal 12.0 - 16.0 [facility] Comment on above: Performed By: #### C BCDF #### [address] [place] [address] Lymphocytes (Bld) [#/Vol] 2.24 10*3/uL Normal 1.20 - 4.80 [facility] Comment on above: Performed By: #### C BCDF #### [address] [place] [address] Lymphocytes/100 WBC (Bld) 16.3 % Normal 13.0 - 44.0 [facility] Comment on above: Performed By: #### C BCDF #### [address] [place] [address] MCHC (RBC) [Mass/Vol] 33.0 g/dL Normal 32.0 - 36.0 [facility] Comment on above: Performed By: #### C BCDF #### [address] [place] [address] MCV (RBC) [Entitic vol] 94 fL Normal 80 - 100 [facility] Comment on above: Performed By: #### C BCDF #### [address] [place] [address] Monocytes (Bld) [#/Vol] 0.83 10*3/uL Normal 0.10 - 1.00 [facility] Comment on above: Performed By: #### C BCDF #### [address] [place] [address] Monocytes/100 WBC (Bld) 6.0 % Normal 2.0 - 10.0 [facility] Comment on above: Performed By: #### C BCDF #### [address] [place] [address] Neutrophils (Bld) [#/Vol] 9.60 10*3/uL High 1.20 - 7.70 [facility] Comment on above: Performed By: #### C BCDF #### [address] [place] [address] Neutrophils/100 WBC (Bld) 69.8 % Normal 40.0 - 80.0 [facility] Comment on above: Performed By: #### C BCDF #### [address] [place] [address] Platelets (Bld) [#/Vol] 380 10*3/uL Normal 150 - 450 [facility] Comment on above: Performed By: #### C BCDF #### [address] [place] [address] RBC (Bld) [#/Vol] 4.21 x10E12/L Normal 4.00 - 5.20 [facility] Comment on above: Performed By: #### C BCDF #### [address] [place] [address] WBC (Bld) [#/Vol] 13.8 10*3/uL High 4.4 - 11.3 [facility] Comment on above: Performed By: #### C BCDF #### [address] [place] [address] Complete Blood Count + Diffe rentialon 11-14-2019 Basophils (Bld) [#/Vol] 0.05 {x10E9/L} See Below MP-Reproductiv e Endocrinology- [place] Work Phone: Comment on above: Reference Range: 0.0 0 - 0.10 Basophils/100 WBC (Bld) 0.4 % 0.0 - 2.0 MP-Reproductiv e Endocrinology- [place] Work Phone: Eosinophils (Bld) [#/Vol] 0.89 {x10E9/L} above high threshold See Below MP-Reproductiv e Endocrinology- [place] Work Phone: Comment on above: Reference Range: 0.0 0 - 0.70 Eosinophils/100 WBC (Bld) 7.3 % 0.0 - 6.0 MP-Reproductiv e Endocrinology- [place] Work Phone: Erythrocyte distribution width (RBC) [Ratio] 13.9 % See Below MP-Reproductiv e Endocrinology- [place] Work Phone: Comment on above: Reference Range: 11. 5 - 14.5 Hematocrit (Bld) [Volume fraction] 39.4 % See Below -Reproductiv e Endocrinology- [place] Work Phone: Comment on above: Reference Range: 36. 0 - 46.0 Hemoglobin (Bld) [Mass/Vol] 12.8 g/dL See Below -Reproductiv e Endocrinology- [place] Work Phone: Comment on above: Reference Range: 12. 0 - 16.0 Lymphocytes (Bld) [#/Vol] 2.13 {x10E9/L} See Below MP-Reproductiv e Endocrinology- [place] Work Phone: Comment on above: Reference Range: 1.2 0 - 4.80 Lymphocytes/100 WBC (Bld) 17.5 % See Below MP-Reproductiv e Endocrinology- [place] Work Phone: Comment on above: Reference Range: 13. 0 - 44.0 MCHC (RBC) [Mass/Vol] 32.5 g/dL See Below MP-Reproductiv e Endocrinology- [place] Work Phone: Comment on above: Reference Range: 32. 0 - 36.0 MCV (RBC) [Entitic vol] 95 fL 80 - 100 MP-Reproductiv e Endocrinology- [place] Work Phone: Monocytes (Bld) [#/Vol] 0.60 {x10E9/L} See Below MP-Reproductiv e Endocrinology- [place] Work Phone: Comment on above: Reference Range: 0.1 0 - 1.00 Monocytes/100 WBC (Bld) 4.9 % 2.0 - 10.0 MP-Reproductiv e Endocrinology- [place] Work Phone: Neutrophils/100 WBC (Bld) 69.4 % See Below MP-Reproductiv e Endocrinology- [place] Work Phone: Comment on above: Reference Range: 40. 0 - 80.0 Platelets (Bld) [#/Vol] 423 {x10E9/L} 150 - 450 MP-Reproductiv e Endocrinology- [place] Work Phone: RBC (Bld) [#/Vol] 4.15 {x10E12/L} See Below [facility] [place] Work Phone: Comment on above: Reference Range: 4.0 0 - 5.20 WBC (Bld) [#/Vol] 12.2 {x10E9/L} above high threshold 4.4 - 11.3 [facility] [place] Work Phone: WBC (Bld) [#/Vol] 0.0 {/100_WBC} [...] high threshold See Below [facility] [place] Work Phone: Comment on above: Reference Range: 1.2 0 - 7.70 Metabolic Panelon 11-14-2019 ALP [Catalytic activity/Vol] 82 U/L 33 - 110 [facility] [place] Work Phone: Anion gap [Moles/Vol] 19 mmol/L 10 - 20 [facility]duct[facility]- [place] Work Phone: Bilirubin [Mass/Vol] 0.4 mg/dL 0.0 - 1.2 [facility]- [place] Work Phone: Calcium [Mass/Vol] 9.5 mg/dL 8.6 - 10.6 [facility] [place] Work Phone: Chloride [Moles/Vol] 100 mmol/L 98 - 107 [facility] [place] Work Phone: CO2 [Moles/Vol] 20 mmol/L below low threshold 21 - 32 [facility] [place] Work Phone: Creatinine [Mass/Vol] 0.80 mg/dL See Below [facility] [place] Work Phone: Comment on above: Reference Range: 0.5 0 - 1.05 Glucose [Mass/Vol] 86 mg/dL 74 - 99 MP-Reproductiv e [facility]- [place] Work Phone: Potassium [Moles/Vol] 4.3 mmol/L 3.5 - 5.3 MP[facility]duct[facility]- [place] Work Phone: Protein [Mass/Vol] 5.8 g/dL below low threshold 6.4 - 8.2 MP-Reproductiv e [facility]ocr[facility]- [place] Work Phone: Sodium [Moles/Vol] 135 mmol/L below low threshold 136 - 145 [facility] [place] Work Phone: Urea nitrogen [Mass/Vol] 10 mg/dL 6 - 23 [facility]duct[facility]- [place] Work Phone: Otheron 11-14-2019 Albumin BCP dye [Mass/Vol] 3.5 g/dL 3.4 - 5.0 MP[facility]roduct[facility]- [place] Work Phone: ALT With P-5'-P [Catalytic activity/Vol] 17 U/L 7 - 45 [facility] [place] Work Phone: Comment on above: Patients treated wit h Sulfasalazine may generate falsely decreased results for ALT. AST With P-5'-P [Catalytic activity/Vol] 22 U/L 9 - 39 [facility] [place] Work Phone: >60 >60 [facility] [place] Work Phone: Comment on above: CALCULATIONS OF MARÍA MATED GFR ARE PERFORMED USING THE MDRD STUDY EQUATION FOR THE IDMS-TRACEABLE CREATININE METHODS. CLIN CHEM 2007;53:766-72 CBCon 11-09-2019 Erythrocyte distribution width (RBC) [Ratio] 13.7 % See Below XM-YHPHB-Ihinc n 310 [facility] Work Phone: Comment on above: Performed By: #### L H #### [facility] [address] [place] [address] Reference Range: 11. 5 - 14.5 Hematocrit (Bld) [Volume fraction] 41.9 % See Below CQ-OQKYQ-Smefm n 310 [facility] Work Phone: Comment on above: Performed By: #### L H #### [facility] [address] [place] [address] Reference Range: 36. 0 - 46.0 Hemoglobin (Bld) [Mass/Vol] 14.0 g/dL See Below OH-XLJTZ-Qyzui n 310 [facility] Work Phone: Comment on above: Performed By: #### L H #### [facility] [address] [place] [address] Reference Range: 12. 0 - 16.0 MCHC (RBC) [Mass/Vol] 33.4 g/dL See Below WK-IMDXK-Efogw n 310 [facility] Work Phone: Comment on above: Performed By: #### L H #### [facility] [address] [place] [address] Reference Range: 32. 0 - 36.0 MCV (RBC) [Entitic vol] 94 fL 80 - 100 JS-POGFK-Crmki n 310 IV[facility] Work Phone: Comment on above: Performed By: #### L H #### [facility] [address] [place] [id number] Platelets (Bld) [#/Vol] 411 10*3/uL Normal 150 - 450 [facility] Comment on above: Performed By: #### L H #### [facility] [address] [place] [id number] RBC (Bld) [#/Vol] 4.44 x10E12/L Normal 4.00 - 5.20 [facility] Comment on above: Performed By: #### L H #### [facility] [address] [place] [id number] WBC (Bld) [#/Vol] 12.4 10*3/uL High 4.4 - 11.3 [facility] Comment on above: Performed By: #### L H #### [facility] [address] [place] [id number] COMPREHENSIVE PANELon 2018 Albumin [Mass/Vol] 3.8 g/dL Normal 3.4 - 5.0 [facility] Comment on above: Performed By: #### L H #### [facility] [address] [place] [id number] ALP [Catalytic activity/Vol] 51 U/L 33 - 110 TO-EXLXZ-Invww n 310 IV[facility] Work Phone: Comment on above: Performed By: #### L H #### [facility] [address] [place] [address] ALT [Catalytic activity/Vol] 12 U/L Normal 7 - 45 [facility] Comment on above: Result Comment: Melida ents treated with Sulfasalazine may generate falsely decreased results for ALT. Performed By: #### L H #### [facility] [address] [place] [address] Anion gap [Moles/Vol] 13 mmol/L 10 - 20 SN-CRBEG-Boszg n 310 IV[facility] Work Phone: Comment on above: Performed By: #### L H #### [facility] [address] [place] [address] AST [Catalytic activity/Vol] 12 U/L Normal 9 - 39 [facility] Comment on above: Performed By: #### L H #### [facility] [address] [place] [address] Bilirubin [Mass/Vol] 0.4 mg/dL 0.0 - 1.2 LH-FTJAS-Oqwzq n 310 [facility] Work Phone: Comment on above: Performed By: #### L H #### [facility] [address] [place] [address] Calcium [Mass/Vol] 9.3 mg/dL 8.6 - 10.3 KO-SGRNL-Ewwls n 310 IV[facility] Work Phone: Comment on above: Performed By: #### L H #### [facility] [address] [place] [address] Chloride [Moles/Vol] 102 mmol/L 98 - 107 CB-QLNXU-Qgufp n 310 [facility] Work Phone: Comment on above: Performed By: #### L H #### [facility] [address] [place] [address] Creatinine [Mass/Vol] 0.89 mg/dL See Below BV-BZFPF-Tpege n 310 [facility] Work Phone: Comment on above: Performed By: #### L H #### [facility] [address] [place] [id number] Reference Range: 0.5 0 - 1.05 GFR- AM. >60 Normal >60 [facility] Comment on above: Result Comment: CALC ULATIONS OF ESTIMATED GFR ARE PERFORMED USING THE MDRD STUDY EQUATION FOR THE IDMS-TRACEABLE CREATININE METHODS. CLIN CHEM 2007;53:766-72 Performed By: #### L H #### [facility] [address] [place] [id number] GFR-NON AM. >60 Normal >60 [facility] Comment on above: Performed By: #### L H #### [facility] [address] [place] [id number] Glucose [Mass/Vol] 74 mg/dL 74 - 99 IQ-MRFHO-Avvno n 310 [facility] Work Phone: Comment on above: Performed By: #### L H #### [facility] [address] [place] [id number] HCO3 (Bld) [Moles/Vol] 25 mmol/L Normal 21 - 32 [facility] Comment on above: Performed By: #### L H #### [facility] [address] [place] [id number] Potassium [Moles/Vol] 4.1 mmol/L 3.5 - 5.3 SW-UOYYV-Pwufu n 310 IV[facility] Work Phone: Comment on above: Performed By: #### L H #### [facility] [address] [place] [id number] Protein [Mass/Vol] 6.0 g/dL below low threshold 6.4 - 8.2 AD-MJTKI-Ftrhy n 310 IV[facility] Work Phone: Comment on above: Performed By: #### L H #### [facility] [address] [place] [id number] Sodium [Moles/Vol] 136 mmol/L 136 - 145 QU-MPYON-Giqpz n 310 IV[facility] Work Phone: Comment on above: Performed By: #### L H #### [facility] [address] [place] [address] Urea nitrogen [Mass/Vol] 11 mg/dL 6 - 23 BO-XSRHF-Ljmjq n 310 IV[facility] Work Phone: Comment on above: Performed By: #### L H #### [facility] [address] [place] [address] HCG, Beta Quantitativeon HCG.beta subunit Qn 7102 {mIU/mL} Abnormal RW-YDPRO-Blqig n 310 [facility] Work Phone: Comment on [...] HCG measurement is performed using the [employer] [place] Access Immunoassay which detects intact HCG and free beta HCG subunit. This test is not indicated for use as a tumor marker. HCG testing is performed using a different test methodology at [facility] than other [facility]. Direct result comparison should only be made within the same method. REF VALUESNON FEMALE <5MALES <5 HCG,BETA-QUANTITATIVEon 12- HCG,BETA-QUANTITA TIVE 7102 mIU/mL [facility] Comment on above: Result Comment: Low- [...] HCG measurement is performed using the [employer] [place] Access Immunoassay which detects intact HCG and free beta HCG subunit. This test is not indicated for use as a tumor marker. HCG testing is performed using a different test methodology at [facility] than other [facility]. Direct result comparison should only be made within the same method. REF VALUES NON FEMALE <5 MALES <5 Performed By: #### L #### [facility] [address] [place] [address] Hematologyon 11-09-2019 Platelets (Bld) [#/Vol] 411 {x10E9/L} 150 - 450 BT-BSRIP-Uarxr n 310 [facility] Work Phone: RBC (Bld) [#/Vol] 4.44 {x10E12/L} See Below MG -OBGYN-Risma n 310 [facility] Work Phone: Comment on above: Reference Range: 4.0 0 - 5.20 WBC (Bld) [#/Vol] 12.4 {x10E9/L} above high threshold 4.4 - 11.3 PZ-IMQYM-Syetj n 310 [facility] Work Phone: Metabolic Panelon 11-09-2019 CO2 [Moles/Vol] 25 mmol/L 21 - 32 MG-OBGYN- Risma n 310 IV[facility] Work Phone: Otheron 11-09-2019 Albumin BCP dye [Mass/Vol] 3.8 g/dL 3.4 - 5.0 NW-ESKXO-Qqtqb n 310 [facility] Work Phone: ALT With P-5'-P [Catalytic activity/Vol] 12 U/L 7 - 45 YW-OHWEL-Wdygu n 310 [facility] Work Phone: Comment on above: Patients treated wit h Sulfasalazine may generate falsely decreased results for ALT. AST With P-5'-P [Catalytic activity/Vol] 12 U/L 9 - 39 YK-JQPJU-Aoluo n 310 [facility] Work Phone: >60 >60 WU-BSEWQ-Clmew n 310 [facility] Work Phone: Comment on [...] HCG measurement is performed using the [employer] [place] Access Immunoassay which detects intact HCG and free beta HCG subunit. This test is not indicated for use as a tumor marker. HCG testing is performed using a different test methodology at [facility] than other [facility]. Direct result comparison should only be made within the same method. REF VALUESNON FEMALE <5MALES <5 HCG,BETA-QUANTITATIVEon 10-15 HCG,BETA-QUANTITA TIVE 240 mIU/mL [facility] Comment on above: Result Comment: Low- [...] HCG measurement is performed using the [employer] [place] Access Immunoassay which detects intact HCG and free beta HCG subunit. This test is not indicated for use as a tumor marker. HCG testing is performed using a different test methodology at [facility] than other [facility]. Direct result comparison should only be made within the same method. REF VALUES NON FEMALE <5 MALES <5 Performed By: #### E STRA #### [facility] [address] [place] [address] ESTRADIOLon 10-14-2019 ESTRADIOL 1871 pg/mL Normal [facility] Comment on above: Result Comment: Estr adiol measurement is performed using the [employer] Access Immunoassay. Estradiol testing is performed using a different test methodology at [facility] than other [facility]. Direct result comparison should only be made within the same method. REF VALUES FOLLICULAR PHASE 20-144 MID CYCLE 64-357 LUTEAL PHASE 56-214 POSTMENOPAUSE < 32 PREPUBERTY < 20 MALE 10-18Y < 20 ADULT MALE < 40 Performed By: #### E STRA #### [facility] [address] [place] [address] Estradiol, Serumon 9 E2 [Mass/Vol] 1871 pg/mL MG-OBGYN-Ri sma n 310 IVF Work Phone: Comment on above: Estradiol measuremen t is performed using the [employer] [place] Access Immunoassay. Estradiol testing is performed using a different test methodology at [facility] than other [facility]. Direct result comparison should only be made within the same method.REF VALUESFOLLICULAR PHASE 20-144MID CYCLE 64-357LUTEAL PHASE 56-214POSTMENOPAUSE < 32PREPUBERTY < 20MALE 10-18Y < 20ADULT MALE < 40 PROGESTERONEon 10-14-2019 PROGESTERONE 1.0 ng/mL Normal [facility] Comment on above: Result Comment: Prog esterone is performed using the [employer] Access Immunoassay. Progesterone testing is performed using a different test methodology at [facility] than other [facility]. Direct result comparison should only be made within the same method. REF VALUES MALE <0.2-0.8 FOLLICULAR PHASE <0.2-1.5 LUTEAL PHASE 7.4-15.4 POSTMENOPAUSAL <0.2-0.2 1ST TRIMESTER 12.0-84.0 2ND TRIMESTER 10.2-58.8 3RD TRIMESTER 46.5-160 Performed By: #### E BARBARA #### [facility] [address] [place] [address] Progesterone, Serumon 2018 Progesterone [Mass/Vol] 1.0 ng/mL SL-ECDUN-Tdqer n 310 IVF Work Phone: Comment on above: Progesterone is perf ormed using the [employer] Access Immunoassay. Progesterone testing is performed using a different test methodology at [facility] than other [facility]. Direct result comparison should only be made within the same method.REF VALUESMALE <0.2-0.8 FOLLICULAR PHASE <0.2-1.5 LUTEAL PHASE 7.4-15.4 POSTMENOPAUSAL <0.2-0.2 1ST TRIMESTER 12.0-84.0 2ND TRIMESTER 10.2-58.8 3RD TRIMESTER 46.5-160 ESTRADIOLon 10-11-2019 ESTRADIOL 284 pg/mL Normal [facility] Comment on above: Result Comment: Estr adiol measurement is performed using the [employer] [place] Access Immunoassay. Estradiol testing is performed using a different test methodology at [facility] than other [facility]. Direct result comparison should only be made within the same method. REF VALUES FOLLICULAR PHASE 20-144 MID CYCLE 64-357 LUTEAL PHASE 56-214 POSTMENOPAUSE < 32 PREPUBERTY < 20 MALE 10-18Y < 20 ADULT MALE < 40 Performed By: #### E STRA #### [facility] [address] [place] [address] Estradiol, Serumon 9 E2 [Mass/Vol] 284 pg/mL MG-OBGYN-Ri [facility] n 310 IVF Work Phone: Comment on above: Estradiol measuremen t is performed using the [employer] Access Immunoassay. Estradiol testing is performed using a different test methodology at [facility] than other [facility]. Direct result comparison should only be made within the same method.REF VALUESFOLLICULAR PHASE 20-144MID CYCLE 64-357LUTEAL PHASE 56-214POSTMENOPAUSE < 32PREPUBERTY < 20MALE 10-18Y < 20ADULT MALE < 40 ESTRADIOLon 10-05-2019 ESTRADIOL 129 pg/mL Normal [facility] Comment on above: Result Comment: Estr adiol measurement is performed using the [employer] Access Immunoassay. Estradiol testing is performed using a different test methodology at [facility] than other [facility]. Direct result comparison should only be made within the same method. REF VALUES FOLLICULAR PHASE 20-144 MID CYCLE 64-357 LUTEAL PHASE 56-214 POSTMENOPAUSE < 32 PREPUBERTY < 20 MALE 10-18Y < 20 ADULT MALE < 40 Performed By: #### E STRA #### [facility] [address] [place] [address] Estradiol, Serumon 9 E2 [Mass/Vol] 129 pg/mL MG-OBGYN-Ri [facility] n 310 IVF Work Phone: Comment on above: Estradiol measuremen t is performed using the [employer] [place] Access Immunoassay. Estradiol testing is performed using a different test methodology at [facility] than other [facility]. Direct result comparison should only be made within the same method.REF VALUESFOLLICULAR PHASE 20-144MID CYCLE 64-357LUTEAL PHASE 56-214POSTMENOPAUSE < 32PREPUBERTY < 20MALE 10-18Y < 20ADULT MALE < 40 PROGESTERONEon 10-05-2019 PROGESTERONE 0.2 ng/mL Normal [facility] Comment on above: Result Comment: Prog esterone is performed using the [employer] Access Immunoassay. Progesterone testing is performed using a different test methodology at [facility] than other [facility]. Direct result comparison should only be made within the same method. REF VALUES MALE <0.2-0.8 FOLLICULAR PHASE <0.2-1.5 LUTEAL PHASE 7.4-15.4 POSTMENOPAUSAL <0.2-0.2 1ST TRIMESTER 12.0-84.0 2ND TRIMESTER 10.2-58.8 3RD TRIMESTER 46.5-160 Performed By: #### E STRA #### [facility] [address] [place] [address] Progesterone, Serumon 2018 Progesterone [Mass/Vol] 0.2 ng/mL NK-TWTNM-Wdoie n 310 IVF Work Phone: Comment on above: Progesterone is perf ormed using the [employer] Access Immunoassay. Progesterone testing is performed using a different test methodology at [facility] than other [facility]. Direct result comparison should only be made within the same method.REF VALUESMALE <0.2-0.8 FOLLICULAR PHASE <0.2-1.5 LUTEAL PHASE 7.4-15.4 POSTMENOPAUSAL <0.2-0.2 1ST TRIMESTER 12.0-84.0 2ND TRIMESTER 10.2-58.8 3RD TRIMESTER 46.5-160 ESTRADIOLon 10-02-2019 ESTRADIOL 357 pg/mL Normal [facility] Comment on above: Result Comment: Estr adiol measurement is performed using the [employer] [place] Access Immunoassay. Estradiol testing is performed using a different test methodology at [facility] than other [facility]. Direct result comparison should only be made within the same method. REF VALUES FOLLICULAR PHASE 20-144 MID CYCLE 64-357 LUTEAL PHASE 56-214 POSTMENOPAUSE < 32 PREPUBERTY < 20 MALE 10-18Y < 20 ADULT MALE < 40 Performed By: #### E STRA #### [facility] [address] [place] [address] Estradiol, Serumon 9 E2 [Mass/Vol] 357 pg/mL MG-OBGYN-Cr ock er 206A IVF Work Phone: Comment on above: Estradiol measuremen t is performed using the [employer] [place] Access Immunoassay. Estradiol testing is performed using a different test methodology at [facility] than other [facility]. Direct result comparison should only be made within the same method.REF VALUESFOLLICULAR PHASE 20-144MID CYCLE 64-357LUTEAL PHASE 56-214POSTMENOPAUSE < 32PREPUBERTY < 20MALE 10-18Y < 20ADULT MALE < 40 LUTEINIZING HORMONEon 2018 LUTEINIZING HORMONE 14.7 IU/L Normal [facility] Comment on above: Result Comment: Lute inizing Hormone [LH] is performed using the [employer] Access Immunoassay. LH testing is performed using a different test methodology at [facility] than other [facility]. Direct result comparison should only be made within the same method. REF VALUES FOLLICULAR PHASE 1.5-10.0 MID-CYCLE 13.0-72.0 LUTEAL PHASE 0.5-13.0 MENOPAUSE 15.0-65.0 PREPUBERTY 0- 3.0 CHILDREN 0- 6.0 ADULT MALE 1.0- 9.0 Performed By: #### E STRA #### [facility] [address] [place] [address] Luteinizing Hormone, Serumon 10-02-2019 Lutropin Qn 14.7 {IU/L} QX-GIHFV-Dyb ck er 206A IVF Work Phone: Comment on above: Luteinizing Hormone [LH] is performed using the [employer] Access Immunoassay. LH testing is performed using a different test methodology at [facility] than other [facility]. Direct result comparison should only be made within the same method.REF VALUESFOLLICULAR PHASE 1.5-10.0MID-CYCLE 13.0-72.0LUTEAL PHASE 0.5-13.0MENOPAUSE 15.0-65.0PREPUBERTY 0- 3.0CHILDREN 0- 6.0ADULT MALE 1.0- 9.0 PROGESTERONEon 10-02-2019 PROGESTERONE 0.1 ng/mL Normal [facility] Comment on above: Result Comment: Prog esterone is performed using the [employer] Access Immunoassay. Progesterone testing is performed using a different test methodology at [facility] than other [facility]. Direct result comparison should only be made within the same method. REF VALUES MALE <0.2-0.8 FOLLICULAR PHASE <0.2-1.5 LUTEAL PHASE 7.4-15.4 POSTMENOPAUSAL <0.2-0.2 1ST TRIMESTER 12.0-84.0 2ND TRIMESTER 10.2-58.8 3RD TRIMESTER 46.5-160 Performed By: #### E STRA #### [facility] [address] [place] [address] Progesterone, Serumon 2018 Progesterone [Mass/Vol] 0.1 ng/mL YH-EUYOR-Vzbmr er 206A IVF Work Phone: Comment on above: Progesterone is perf ormed using the [employer] [place] Access Immunoassay. Progesterone testing is performed using a different test methodology at [facility] than other [facility]. Direct result comparison should only be made within the same method.REF VALUESMALE <0.2-0.8 FOLLICULAR PHASE <0.2-1.5 LUTEAL PHASE 7.4-15.4 POSTMENOPAUSAL <0.2-0.2 1ST TRIMESTER 12.0-84.0 2ND TRIMESTER 10.2-58.8 3RD TRIMESTER 46.5-160 HCG,BETA-QUANTITATIVEon - HCG,BETA-QUANTITA TIVE 10 mIU/mL [facility] Comment on above: Result Comment: Low- [...] HCG measurement is performed using the [employer] [place] Access Immunoassay which detects intact HCG and free beta HCG subunit. This test is not indicated for use as a tumor marker. HCG testing is performed using a different test methodology at [facility] than other [facility]. Direct result comparison should only be made within the same method. REF VALUES NON FEMALE <5 MALES <5 Performed By: #### L H #### [facility] [address] [place] [address] LUTEINIZING HORMONEon 2018 LUTEINIZING HORMONE 57.0 IU/L Normal [facility] Comment on above: Result Comment: Lute inizing Hormone [LH] is performed using the [employer] [place] Access Immunoassay. LH testing is performed using a different test methodology at [facility] than other [facility]. Direct result comparison should only be made within the same method. REF VALUES FOLLICULAR PHASE 1.5-10.0 MID-CYCLE 13.0-72.0 LUTEAL PHASE 0.5-13.0 MENOPAUSE 15.0-65.0 PREPUBERTY 0- 3.0 CHILDREN 0- 6.0 ADULT MALE 1.0- 9.0 Performed By: #### E STRA #### [facility] [address] [place] [address] PROGESTERONEon 08-13-2019 PROGESTERONE 6.7 ng/mL Normal [facility] Comment on above: Result Comment: Prog esterone is performed using the [employer] Access Immunoassay. Progesterone testing is performed using a different test methodology at [facility] than other [facility]. Direct result comparison should only be made within the same method. REF VALUES MALE <0.2-0.8 FOLLICULAR PHASE <0.2-1.5 LUTEAL PHASE 7.4-15.4 POSTMENOPAUSAL <0.2-0.2 1ST TRIMESTER 12.0-84.0 2ND TRIMESTER 10.2-58.8 3RD TRIMESTER 46.5-160 Performed By: #### L H #### [facility] [address] [place] [address] ESTRADIOLon 08-12-2019 ESTRADIOL 1380 pg/mL Normal [facility] Comment on above: Result Comment: Estr adiol measurement is performed using the [employer] Access Immunoassay. Estradiol testing is performed using a different test methodology at [facility] than other [facility]. Direct result comparison should only be made within the same method. REF VALUES FOLLICULAR PHASE 20-144 MID CYCLE 64-357 LUTEAL PHASE 56-214 POSTMENOPAUSE < 32 PREPUBERTY < 20 MALE 10-18Y < 20 ADULT MALE < 40 Performed By: #### L H #### [facility] [address] [place] [id number] PROGESTERONEon 08-12-2019 PROGESTERONE 1.7 ng/mL Normal [facility] Comment on above: Result Comment: Prog esterone is performed using the [employer] Access Immunoassay. Progesterone testing is performed using a different test methodology at [facility] than other [facility]. Direct result comparison should only be made within the same method. REF VALUES MALE <0.2-0.8 FOLLICULAR PHASE <0.2-1.5 LUTEAL PHASE 7.4-15.4 POSTMENOPAUSAL <0.2-0.2 1ST TRIMESTER 12.0-84.0 2ND TRIMESTER 10.2-58.8 3RD TRIMESTER 46.5-160 Performed By: #### L H #### [facility] [address] [place] [id number] ESTRADIOLon 08-11-2019 ESTRADIOL 874 pg/mL Normal [facility] Comment on above: Result Comment: Estr adiol measurement is performed using the [employer] [place] Access Immunoassay. Estradiol testing is performed using a different test methodology at [facility] than other [facility]. Direct result comparison should only be made within the same method. REF VALUES FOLLICULAR PHASE 20-144 MID CYCLE 64-357 LUTEAL PHASE 56-214 POSTMENOPAUSE < 32 PREPUBERTY < 20 MALE 10-18Y < 20 ADULT MALE < 40 Performed By: #### L H #### [facility] [address] [place] [address] PROGESTERONEon 08-11-2019 PROGESTERONE 1.2 ng/mL Normal [facility] Comment on above: Result Comment: Prog esterone is performed using the [employer] Access Immunoassay. Progesterone testing is performed using a different test methodology at [facility] than other [facility]. Direct result comparison should only be made within the same method. REF VALUES MALE <0.2-0.8 FOLLICULAR PHASE <0.2-1.5 LUTEAL PHASE 7.4-15.4 POSTMENOPAUSAL <0.2-0.2 1ST TRIMESTER 12.0-84.0 2ND TRIMESTER 10.2-58.8 3RD TRIMESTER 46.5-160 Performed By: #### L H #### [facility] [address] [place] [address] ESTRADIOLon 08-09-2019 ESTRADIOL 385 pg/mL Normal [facility] Comment on above: Result Comment: Estr adiol measurement is performed using the [employer] [place] Access Immunoassay. Estradiol testing is performed using a different test methodology at [facility] than other [facility]. Direct result comparison should only be made within the same method. REF VALUES FOLLICULAR PHASE 20-144 MID CYCLE 64-357 LUTEAL PHASE 56-214 POSTMENOPAUSE < 32 PREPUBERTY < 20 MALE 10-18Y < 20 ADULT MALE < 40 Performed By: #### L H #### [facility] [address] [place] [address] ESTRADIOLon 08-07-2019 ESTRADIOL 80 pg/mL Normal [facility] Comment on above: Result Comment: Estr adiol measurement is performed using the [employer] [place] Access Immunoassay. Estradiol testing is performed using a different test methodology at [facility] than other [facility]. Direct result comparison should only be made within the same method. REF VALUES FOLLICULAR PHASE 20-144 MID CYCLE 64-357 LUTEAL PHASE 56-214 POSTMENOPAUSE < 32 PREPUBERTY < 20 MALE 10-18Y < 20 ADULT MALE < 40 Performed By: #### L H #### [facility] [address] [place] [address] ESTRADIOLon 08-04-2019 ESTRADIOL 58 pg/mL Normal [facility] Comment on above: Result Comment: Estr adiol measurement is performed using the [employer] [place] Access Immunoassay. Estradiol testing is performed using a different test methodology at [facility] than [facility]. Direct result comparison should only be made within the same method. REF VALUES FOLLICULAR PHASE 20-144 MID CYCLE 64-357 LUTEAL PHASE 56-214 POSTMENOPAUSE < 32 PREPUBERTY < 20 MALE 10-18Y < 20 ADULT MALE < 40 Performed By: #### L H #### [facility] [address] [place] [address] ESTRADIOLon 07-07-2019 ESTRADIOL 110 pg/mL Normal [facility] Comment on above: Result Comment: Estr adiol measurement is performed using the [employer] [place] Access Immunoassay. Estradiol testing is performed using a different test methodology at [facility] than other [facility]. Direct result comparison should only be made within the same method. REF VALUES FOLLICULAR PHASE 20-144 MID CYCLE 64-357 LUTEAL PHASE 56-214 POSTMENOPAUSE < 32 PREPUBERTY < 20 MALE 10-18Y < 20 ADULT MALE < 40 Performed By: #### L H #### [facility] [address] [place] [address] NR MRI SELLA WO/Won 05-31-20 19 NR MRI SELLA WO/W Patient Name: KIARA ASHLEY STUDY: NR MRI SELLA WO/W; 05/31/2019 2:00 pm INDICATION: History of 7 mm microadenoma 2008. COMPARISON: None. ACCESSION NUMBER(S): [id number] ORDERING CLINICIAN: SHAHLA HEALY TECHNIQUE: High resolution [...] Electronically signed by: IRENE BLAKE PHYSICIAN Normal [facility] ESTRADIOLon 05-05-2019 ESTRADIOL 217 pg/mL Normal [facility] Comment on above: Result Comment: Estr adiol measurement is performed using the [employer] [place] Access Immunoassay. Estradiol testing is performed using a different test methodology at [facility] than other [facility]. Direct result comparison should only be made within the same method. REF VALUES FOLLICULAR PHASE 20-144 MID CYCLE 64-357 LUTEAL PHASE 56-214 POSTMENOPAUSE < 32 PREPUBERTY < 20 MALE 10-18Y < 20 ADULT MALE < 40 Performed By: #### E STRA #### [facility] [address] [place] [address] LUTEINIZING HORMONEon 2018 LUTEINIZING HORMONE 4.4 IU/L Normal [facility] Comment on above: Result Comment: Lute inizing Hormone [LH] is performed using the [employer] [place] Access Immunoassay. LH testing is performed using a different test methodology at [facility] than other [facility]. Direct result comparison should only be made within the same method. REF VALUES FOLLICULAR PHASE 1.5-10.0 MID-CYCLE 13.0-72.0 LUTEAL PHASE 0.5-13.0 MENOPAUSE 15.0-65.0 PREPUBERTY 0- 3.0 CHILDREN 0- 6.0 ADULT MALE 1.0- 9.0 Performed By: #### L H #### [facility] [address] [place] [address] ESTRADIOLon 04-11-2019 ESTRADIOL 118 pg/mL Normal [facility] Comment on above: Result Comment: Estr adiol measurement is performed using the [employer] [place] Access Immunoassay. Estradiol testing is performed using a different test methodology at [facility] than [facility]. Direct result comparison should only be made within the same method. REF VALUES FOLLICULAR PHASE 20-144 MID CYCLE 64-357 LUTEAL PHASE 56-214 POSTMENOPAUSE < 32 PREPUBERTY < 20 MALE 10-18Y < 20 ADULT MALE < 40 Performed By: #### E STRA #### [facility] [address] [place] [address] LUTEINIZING HORMONEon 2018 LUTEINIZING HORMONE 7.7 IU/L Normal [facility] Comment on above: Result Comment: Lute inizing Hormone [LH] is performed using the [employer] [place] Access Immunoassay. LH testing is performed using a different test methodology at [facility] than other [facility]. Direct result comparison should only be made within the same method. REF VALUES FOLLICULAR PHASE 1.5-10.0 MID-CYCLE 13.0-72.0 LUTEAL PHASE 0.5-13.0 MENOPAUSE 15.0-65.0 PREPUBERTY 0- 3.0 CHILDREN 0- 6.0 ADULT MALE 1.0- 9.0 Performed By: #### L H #### [facility] [address] [place] [address] PROGESTERONEon 04-11-2019 PROGESTERONE 0.1 ng/mL Normal [facility] Comment on above: Result Comment: Prog esterone is performed using the Jose [employer] Access Immunoassay. Progesterone testing is performed using a different test methodology at [facility] than other [facility]. Direct result comparison should only be made within the same method. REF VALUES MALE <0.2-0.8 FOLLICULAR PHASE <0.2-1.5 LUTEAL PHASE 7.4-15.4 POSTMENOPAUSAL <0.2-0.2 1ST TRIMESTER 12.0-84.0 2ND TRIMESTER 10.2-58.8 3RD TRIMESTER 46.5-160 Performed By: #### P SVEN #### [facility] [address] [place] [address] ESTRADIOLon 03-17-2019 ESTRADIOL 120 pg/mL Normal [facility] Comment on above: Result Comment: Estr adiol measurement is performed using the Jose [employer] Access Immunoassay. Estradiol testing is performed using a different test methodology at [facility] than other [facility]. Direct result comparison should only be made within the same method. REF VALUES FOLLICULAR PHASE 20-144 MID CYCLE 64-357 LUTEAL PHASE 56-214 POSTMENOPAUSE < 32 PREPUBERTY < 20 MALE 10-18Y < 20 ADULT MALE < 40 Performed By: #### E STRA #### [facility] [address] [place] [address] LUTEINIZING HORMONEon 2018 LUTEINIZING HORMONE 6.8 IU/L Normal [facility] Comment on above: Result Comment: Lute inizing Hormone [LH] is performed using the [employer] Access Immunoassay. LH testing is performed using a different test methodology at [facility] than other [facility]. Direct result comparison should only be made within the same method. REF VALUES FOLLICULAR PHASE 1.5-10.0 MID-CYCLE 13.0-72.0 LUTEAL PHASE 0.5-13.0 MENOPAUSE 15.0-65.0 PREPUBERTY 0- 3.0 CHILDREN 0- 6.0 ADULT MALE 1.0- 9.0 Performed By: #### L H #### [facility] [address] [place] [address] ESTRADIOLon 02-20-2019 ESTRADIOL 521 pg/mL Normal [facility] Comment on above: Result Comment: Estr adiol measurement is performed using the Jose [employer] Access Immunoassay. Estradiol testing is performed using a different test methodology at [facility] than other [facility]. Direct result comparison should only be made within the same method. REF VALUES FOLLICULAR PHASE 20-144 MID CYCLE 64-357 LUTEAL PHASE 56-214 POSTMENOPAUSE < 32 PREPUBERTY < 20 MALE 10-18Y < 20 ADULT MALE < 40 Performed By: #### E STRA #### [facility] [address] [place] [address] LUTEINIZING HORMONEon 2018 LUTEINIZING HORMONE 3.5 IU/L Normal [facility] Comment on above: Result Comment: Lute inizing Hormone [LH] is performed using the Jose [employer] Access Immunoassay. LH testing is performed using a different test methodology at [facility] than other [facility]. Direct result comparison should only be made within the same method. REF VALUES FOLLICULAR PHASE 1.5-10.0 MID-CYCLE 13.0-72.0 LUTEAL PHASE 0.5-13.0 MENOPAUSE 15.0-65.0 PREPUBERTY 0- 3.0 CHILDREN 0- 6.0 ADULT MALE 1.0- 9.0 Performed By: #### L H #### [facility] [address] [place] [address] Vital Signs Date Time Vital Sign Value Performing Clinician Modesto golden 12-27-2023 10:57-0500 Body mass index (BMI) [Ratio] 34.84 kg/m2 Bere JOHNSON Work Phone: [facility] 12-27-2023 10:57-0500 Body weight 83.64 kg Bere JOHNSON Work Phone: [facility] 12-27-2023 10:57-0500 Diastolic blood pressure 68 mm[Hg] Bere JOHNSON Work Phone: [facility] 12-27-2023 10:57-0500 Systolic blood pressure 110 mm[Hg] Bere JOHNSON Work Phone: [facility] 02-27-2023 11:35-0400 Body mass index (BMI) [Ratio] 29.26 kg/m2 Evelyn Perez Work Phone: [facility] [employer] 02-27-2023 11:35-0400 Body temperature 98.8 [degF] Evelyn Grubererhorn Work Phone: [facility] [employer] 02-27-2023 11:35-0400 Body weight 72.58 kg Evelyn Grubererhorn Work Phone: [facility] [employer] 02-27-2023 11:35-0400 Diastolic blood pressure 66 mm[Hg] Evelyn Grubererhorn Work Phone: [facility] [employer] 02-27-2023 11:35-0400 Heart rate 88 /min Evelyn Grubererhorn Work Phone: [facility] [employer] 02-27-2023 11:35-0400 Respiratory rate 14 /min Evelyn Grubererhorn Work Phone: [facility] [employer] 02-27-2023 11:35-0400 SaO2% (BldA) [Mass fraction] 100 % Evelyn Calderonrn Work Phone: [facility] [employer] 02-27-2023 11:35-0400 Systolic blood pressure 103 mm[Hg] Evelyn Grubererhorn Work Phone: [facility] [employer] 06-19-2021 14:03-0400 Body height 157.48 cm Evelyn Grubererhorn Work Phone: PL-QBODC-Hzeaps 310 IVF Work Phone: 06-19-2021 14:03-0400 Body mass index (BMI) [Ratio] 29.26 kg/m2 Evelyn Husain Ana Work Phone: RV-CKTKH-Jjoejf 310 IVF Work Phone: 06-19-2021 14:03-0400 Body surface area Derived from formula 1.74 m2 Evelyn Husain Ana Work Phone: ED-BOTJA-Xytijb 310 IVF Work Phone: 06-19-2021 14:03-0400 Body weight 72.58 kg Evelyn M Ana Work Phone: BO-FQWHG-Vvjlut 310 IVF Work Phone: 06-19-2021 14:03-0400 1 1 Evelyn M Ana Work Phone: CB-DDCUG-Ktugtq 310 IVF Work Phone: Comment on above: GRAV PARA 06-19-2021 14:03-0400 0 1 Evelyn M Ana Work Phone: EC-BJTPE-Cxzizy 310 IVF Work Phone: Comment on above: [employer] 06-07-2020 10:41-0400 BMI (Body Mass Index) 34.93 kg/m2 King Lappen VN-ZYMWM-FZB [address] [place] Work Phone: 06-07-2020 10:41-0400 Body weight 86.64 kg King Lappen LF-MTNDY-RTB 120 0 [place] Work Phone: 06-07-2020 10:41-0400 BP Diastolic 76 mm[Hg] King Lappen PZ-WOXQF-IMD 120 0 [place] Work Phone: 06-07-2020 10:41-0400 BP Systolic 111 mm[Hg] King Lappen NR-EVOMD-ZDA 120 0 [place] Work Phone: 06-07-2020 10:41-0400 BSA (Body Surface Area) 1.87 m2 King Lappen QZ-XJDOK-CHS [address] [place] Work Phone: 06-07-2020 10:41-0400 Pulse (Heart Rate) 101 /min King Lappen EP-BICOA-QJO [address] [place] Work Phone: 06-07-2020 10:41-0400 0 1 King Lappen KD-NXMKO-NVC 120 0 [place] Work Phone: Comment on above: [facility] 12-25-2019 10:58-0500 BMI (Body Mass Index) 30.18 kg/m2 King Lappen YW-KWUBI-DWY [address] [place] Work Phone: 12-25-2019 10:58-0500 Body weight 74.84 kg King Lappen LQ-DWEVZ-CMS 120 0 [place] Work Phone: 12-25-2019 10:58-0500 BP Diastolic 68 mm[Hg] King Lappen XZ-YCXBH-IDL 120 0 [place] Work Phone: 12-25-2019 10:58-0500 BP Systolic 112 mm[Hg] King Lappen PC-JEZWC-YHI 120 0 [place] Work Phone: 12-25-2019 10:58-0500 BSA (Body Surface Area) 1.76 m2 King Lappen WD-CXOQQ-RCV [address] [place] Work Phone: 11-09-2019 11:28-0500 Body Temperature 98.78 [degF] Kelechi Gage FB-QAURR-Irtdev 310 IVF Work Phone: 11-09-2019 11:28-0500 BP Diastolic 76 mm[Hg] Kelechi Gage NM-WKXLP-Olfwoa 310 IVF Work Phone: 11-09-2019 11:28-0500 BP Systolic 112 mm[Hg] Kelechi Gage PT-YUJPE-Qigtvb 310 IVF Work Phone: 11-09-2019 11:28-0500 Respiratory Rate 96 /min Kelechi Gage TW-LXCDV-Sbberc 310 IVF Work Phone: Encounters Encounter Date Encounter Type Care Provider Facility Start: 02-29-2024 End: 02-29-2024 ambulatory DEMARIO GISSEL Not Available Start: 02-22-2024 End: 02-22-2024 ambulatory BERE STEEL Not Available Start: 02-07-2024 End: 02-07-2024 ambulatory DEMARIO GISSEL Not Available Start: 01-24-2024 End: 01-24-2024 ambulatory BERE STEEL Not Available Start: 01-10-2024 End: 01-11-2024 ambulatory Zoya Lie Iftikhar [employer] Facility:[facility] Start: 12-27-2023 End: 12-27-2023 ambulatory BERE [...] Start: 09-14-2023 End: 09-14-2023 ambulatory Lc Waite Facility:[facility] Start: 02-27-2023 End: 02-27-2023 Emergency department patient visit EVELYN PEREZ [facility] Start: 02-27-2023 End: 02-27-2023 Emergency department patient visit Evelyn Perez Work Phone: [facility] ED Comment on above: Sprain of left ankle , unspecified ligament, initial encounter (Primary Dx) Start: 01-11-2023 End: 01-11-[address] DEMARIO RIBEIRO . Facility:[facility] Start: 09-22-2022 End: 09-22-2022 Emergency department patient visit JAMI ROMERO [facility] Start: 03-10-[address] EVELYN [...] 12-27-2021 End: 12-27-2021 ambulatory Sabina Barnhart Other [employer] Other Start: 12-27-2021 Office outpatient visit 5 minutes Sabina Barnhart [facility] Start: 07-16-2021 Patient encounter procedure Evelyn Perez Work Phone: TZ-HILKQ-Uisase 310 IVF Work Phone: Start: 07-07-2021 AUDIT Evelyn castrohofabrizio Work Phone: FR-PSAAO-Lplmfx 310 IVF Work Phone: Start: 07-07-2021 Chart Update Evelyn santana Work Phone: WY-RSDUZ-Vpomlv 310 IVF Work Phone: Start: 07-02-2021 Telephone encounter Evelyn gonzales Work Phone: GB-OMVTY-Eqzzfb 310 IVF Work Phone: Start: 06-19-2021 Patient encounter procedure Evelyn Perez Work Phone: RG-IWVOY-Wcslea 310 IVF Work Phone: Start: 06-07-2020 Patient encounter procedure King Lappen TO-VFLGK-IEV [address] [place] Work Phone: Start: 04-24-2020 Patient encounter procedure King Lappen EW-SVAVC-SBL 1200 [place] Work Phone: Start: 02-20-2020 Patient encounter procedure King Lappen QZ-OKPKD-IAC 1200 [place] Work Phone: Start: 02-14-2020 Patient encounter procedure King Lappen XM-TEIOM-OCF 1200 [place] Work Phone: Start: 01-23-2020 Patient encounter procedure King Lappen XX-HVOFX-APM 1200 [place] Work Phone: Start: 12-25-2019 Patient encounter procedure King Lappen VR-XMQTX-JCY 1200 [place] Work Phone: Start: 11-21-2019 Patient encounter procedure King Lappen BC-YSTYQ-VWG 1200 [place] Work Phone: Start: 11-16-2019 Patient encounter procedure Kelechi Gage MP-Reproductive Endocrinology-[place] 206 Work Phone: Start: 11-14-2019 Patient encounter procedure Kelechi Gage QS-ICQFJ-Xyfeas 310 IVF Work Phone: Start: 11-09-2019 Patient encounter procedure Kelechi Gage AU-JEPWA-Rxkhqz 310 IVF Work Phone: Start: 11-02-2019 Patient encounter procedure Kelechi Gage MP-Reproductive Endocrinology-[place] Work Phone: Start: 10-21-2019 Patient encounter procedure Kelechi Gage MP-Reproductive Endocrinology-[place] Work Phone: Start: 10-14-2019 Patient encounter procedure Kelechi Gage AZ-DUXRT-Hcuchv 310 IVF Work Phone: Start: 10-11-2019 Patient encounter procedure Kelechi Gage YX-WRPUS-Nbcqru 310 IVF Work Phone: Start: 10-05-2019 Patient encounter procedure Kelechi Gage FG-MGIRL-Ezwmtg 320 Work Phone: Start: 10-02-2019 Patient encounter procedure Kelechi TONGWS-RKWTC-Pyfswbl 206A IVF Work Phone: Start: 08-14-2019 Patient encounter procedure Kelechi TONGRB-DJUQI-Rfcdgv 310 IVF Work Phone: Start: 08-13-2019 Patient encounter procedure Kelechi TONGFR-QGOSR-Acmvgy 310 IVF Work Phone: Start: 08-12-2019 Patient encounter procedure Kelechi Gage YQ-XHWRH-Lmulwv 310 IVF Work Phone: Start: 08-11-2019 Patient encounter procedure Kelechi Gage MU-ZLJFX-Ntwpau 310 IVF Work Phone: Start: 08-09-2019 Patient encounter procedure Kelechi Gage WZ-SNMWZ-Hxvvow 310 IVF Work Phone: Start: 08-07-2019 Patient encounter procedure Kelechi TONGGN-BPMRM-Jxuikm 310 IVF Work Phone: Start: 08-04-2019 Patient encounter procedure Kelechi TONGSU-KZSSG-Jpdxnj 310 IVF Work Phone: Start: 07-07-2019 Patient encounter procedure Kelechi TONGCQ-VYACD-Yuyers 310 IVF Work Phone: Start: 06-08-2019 Patient encounter procedure Kelechi TONGXE-MQFDG-Vczvma 310 IVF Work Phone: Start: 05-17-2019 Patient encounter procedure Kelechi Gage OY-UCOVE-Etrnsl 310 IVF Work Phone: Start: 05-08-2019 Patient encounter procedure Kelechi TONGCQ-UDFSR-Eiyetw 310 IVF Work Phone: Start: 05-05-2019 Patient encounter procedure Kelechi Gage IH-CWNNM-Cnmwyb 310 IVF Work Phone: Start: 04-13-2019 Patient encounter procedure Kelechi Gage HF-NSWEM-Ideugm 310 IVF Work Phone: Start: 04-11-2019 Patient encounter procedure Kelechi Gage UQ-CXQEN-Nwfjur 310 IVF Work Phone: Start: 03-20-2019 Patient encounter procedure Kelechi Gage XN-FOHNE-Odhpjp 310 IVF Work Phone: Start: 03-17-2019 Patient encounter procedure Kelechi TONGIF-HZMTC-Vxbhli 310 IVF Work Phone: Start: 02-22-2019 Patient encounter procedure Kelechi Gage SU-ICGWC-Uyckdt 310 IVF Work Phone: Start: 02-20-2019 Patient encounter procedure Kelechi TONGEA-PAMSK-Mdqlkz 310 IVF Work Phone: Start: 02-13-2019 Patient encounter procedure Bruce Mayes Facility:[facility] Start: 02-08-2019 End: 02-12-2019 Patient encounter procedure Bruce Mayes Facility:[facility] Start: 01-19-2019 Patient encounter procedure Kelechi TONGBU-KBUSU-Nwpyld 310 IVF Work Phone: Patient encounter status Evelyn Perez Work Phone: TV-UERPL-Ntprro 310 IVF Work Phone: Procedures Date Procedure [...] AM EDT Routine [facility] [address] [place] [id number] Demario Ribeiro, DO [address] [place] [address] [facility] Start: 02-07-2024 End: 02-07-2024 Professional / ancillary services management 02/07/2024 9:00 AM EDT Ancillary Procedure [facility] [address] [place] [phone] [facility] Start: 01-24-2024 End: 01-24-2024 Patient encounter procedure 01/24/2024 9:30 AM EDT Routine [facility] [address] [place] [phone] Bere Steel PA [address] [place], [place] [id number] [facility] Start: 01-10-2024 End: 01-10-2024 Patient encounter procedure 01/10/2024 2:20 PM EST Routine [facility] [address] [place] [phone] Demario Ribeiro, DO [address] [place] [address] [facility] Start: 01-10-2024 End: 01-10-2024 Professional / ancillary services management 01/10/2024 2:00 PM EST Ancillary Procedure [facility] [address] [place] [id number] [facility] Start: 12-27-2023 End: 12-27-2024 US biophysical profile w non stress test US biophysical profile w non stress test Imaging Routine Hypothyroidism (acquired) ([facility]) H/O blood clots Expected: 12/27/2023 (Approximate), Expires: 12/27/2024 [facility] Work Phone: Comment on above: Expected: 12/27/2023 (Approximate), Expires: 12/27/2024 Start: 12-27-2023 End: 12-27-2024 US for US OB SCAN FOR GROWTH Imaging Routine Hypothyroidism, unspecified type (CMS/HCC) Excessive growth affecting management of in third trimester, single or unspecified fetus Expected: 12/27/2023 (Approximate), Expires: 12/27/2024 [facility] Comment on above: Expected: 12/27/2023 (Approximate), Expires: 12/27/2024 Start: 06-15-2023 Influenza vaccination Flu vacc ine (Season Ended) [facility] Start: 2021 Screening for malignant neoplasm of cervix [facility] Start: 07-25-2021 ULTRASOUND, Provider : OBGYN IVF RDMS ARDEN 1,[facility], Status: Pen, Time: 9:00 AM ULTRASOUND, Provider: OBGYN IVF RDMS AR[place] 1,[facility] O[facility], Status: Pen, Time: 9:00 AM HS-MMLSR-Aeyzmk 310 IVF Work Phone: Start: 07-16-2021 ULTRASOUND, Provider : OBGYN IVF RDMS [id number] 1,[facility], Status: Pen, Time: 1:00 PM ULTRASOUND, Provider: OBGYN IVF RDMS [id number] 1,[facility], Status: Pen, Time: 1:00 PM AS-YRDPN-Fmdasp 310 IVF Work Phone: Start: 07-07-2021 ULTRASALIN, Provider : Miguel A Barrera, Status: Pen, Time: 10:00 AM ULTRASALIN, Provider: Miguel A Barrera, Status: Pen, Time: 10:00 AM IP-JVGEN-Cqsvsk 310 IVF Work Phone: Start: 06-05-2020 MAC Imaging Order MG-WAITRESS-MAC 1200 [place] Work Phone: Start: 11-16-2019 IO Ultrasound, MP-Reproductive Endocrinology-[place] 206 Work Phone: Start: 11-14-2019 Blood count complete auto&auto difrntl wbc Complete Blood Count + Differential PO-ERBKP-Qnlavk 310 IVF Work Phone: Start: 11-14-2019 Comprehensive metabolic 2000 panel PS-KCNKS-Krknow 310 IVF Work Phone: Start: 11-02-2019 Gonadotropin chorion ic quantitative HCG, Beta Quantitative MP-Reproductive Endocrinology-[facility] chast[facility] 206 Work Phone: Start: 10-11-2019 IO Ultrasound, limited pelvic, follicle monitoring BP-DXUOI-Pocuij 310 IVF Work Phone: Start: 10-05-2019 IO Ultrasound, limited pelvic, follicle monitoring HA-RITJG-Rhfbcm 320 Work Phone: Start: 2012 Screening for malignant neoplasm of cervix Pap smear [facility] Start: 2010 DTaP/Tdap/Td vaccine (1 - Tdap) DTaP/Tdap/Td vaccine (1 - Tdap) [facility] Start: 2009 Hepatitis C screening Hepatitis C sc reen [facility] Start: 2006 HIV screening HIV screen [facility] Start: 2003 Depression Screen Depression Screen [facility] Start: 1992 Varicella vaccine (1 of 2 - 2-dose childhood series) Varicella vaccine (1 of 2 - 2-dose childhood series) [facility] Start: 03-02-1992 COVID-19 Vaccine (#1) COVID-19 Vacci ne (#1) [facility] Assay of estradiol Estradiol, Serum MG-WAITRESS-Risman 310 IVF Work Phone: Comment on above: Approx [id number] Approx [id number] Approx [id number] Assay of progesterone Progesterone, Serum BV-QSHEU-Ldewir 310 IVF Work Phone: Comment on above: Approx [id number] Gonadotropin luteinizing hormone Luteinizing Hormone, Serum CD-UHESM-Vlsxbv 310 IVF Work Phone: Comment on above: Approx [id number] HN-IGHHE-Cnkfst 320 Work Phone: IO Ultrasound, l imited pelvic, follicle monitoring JQ-HCGOY-Xsxfsa 310 IVF Work Phone: Comment on above: Approx [id number] Approx [id number] Approx [id number] NEGATED: Highlighted row has been ruled out! Planned Goals not documented OU-WAJYE-Mxfmpm 310 IVF Work Phone: Payers Date Payer Category Payer Self-pay 2016 Private Health Insurance [id number] 2016 Private Health Insurance [id number] 1991 Unknown [id number] 2.16.84 [id number] 1991 Unknown [id number] 2.16.84 0.1.497967.3.579.2.593 1991 Unknown [id number] 2.16.84 0.1.380450.3.579.2.593 1991 Unknown [id number] 2.16.84 0.1.925920.3.579.2.593 1991 Unknown [id number] 2.16.84 0.1.171935.3.579.2.593 1991 Unknown [id number] 2.16.84 0.1.861237.3.579.2.593 1991 Unknown [id number] 2.16.84 0.1.286478.3.579.2.593 1991 Unknown [id number] 2.16.84 0.1.386142.3.579.2.593 1991 Unknown [id number] 2.16.84 0.1.341661.3.579.2.593 1991 Unknown [id number] 2.16.84 0.1.730593.3.579.2.593 1991 Unknown [id number] 2.16.84 0.1.358150.3.579.2.593 1991 Unknown [id number] 2.16.84 0.1.196417.3.579.2.593 1991 Unknown [id number] 2.16.84 0.1.970060.3.579.2.593 1991 Unknown [id number] 2.16.84 0.1.631782.3.579.2.593 1991 Unknown [id number] 2.16.8 40.1.779603.3.579.2.173 1991 Unknown [id number] 2.16.8 40.1.822671.3.579.2.173 1991 Unknown [id number] 2.16. [id number] 1991 Unknown [id number] 2.16. 840.1.792359.3.579.2.196 1991 Unknown [id number] 2.16.84 0.1.810450.3.579.2.1259 1991 Unknown [id number] 2.16.84 0.1.523757.3.579.2.1259 1991 Unknown [id number] 2.16.84 0.1.180346.3.579.2.1259 1991 Unknown [id number] 2.16.84 0.1.489128.3.579.2.1259 1991 Unknown [id number] 2.16.84 0.1.115758.3.579.2.1259 1991 Unknown [id number] 2.16.84 0.1.248119.3.579.2.1259 1991 Unknown [id number] 2.16.84 0.1.497006.3.579.2.1259 1991 Unknown [id number] 2.16.840 .1.206708.3.579.2.1259 1991 Unknown [id number] 2.16.840 .1.327390.3.579.2.1259 1959 Self-pay [id number] 1959 Unknown [id number] 1959 Unknown [id number] Unknown [id number] 2.16.8 40.1.014646.3.579.2.243 Unknown [id number] 2.16.8 40.1.721318.3.579.2.243 Unknown Unknown [id number] 2.16.8 40.1.281212.3.579.2.531 Social History Date Type Detail Facility - - [facility] Work Phone: Start: 05-11-2023 End: 12-27-2023 Never a smoker Never a smoker [facility] Comment on above: [facility]; Start: 05-11-2023 End: 09-06-2023 Sex Assigned At [facility] Start: 09-22-2022 End: 04-15-2023 Tobacco smoking status NHIS Never smoked tobacco [email or web address] Phone: Start: 09-22-2022 End: 04-15-2023 Tobacco use and exposure Smokeless tobacco non-user [email or web address] Phone: Start: 1990 Sex Assigned At Not on file B ON [employer] Phone: Start: 02-17-2023 End: 02-27-2023 Exposure to SARS-CoV-2 (event) Not sure [employer] Start: 12-27-2023 Alcohol intake Current drinke r [...] status health issues are not documented Disease [facility] Work Phone: Mental Status Date Assessment Result Facility NEGATED: Highlighted row Cognitive function [Interpretation] Cognitive status health issues are not documented Disease [facility] Work Phone: History of Present [...] Problems Past Medical History: Diagnosis Date Asthma ([facility]) Infection of obstetric surgical wound Protein S deficiency ([facility]) Vaginal delivery Family History Problem Relation [...] Third trimester First trimester Hypothyroidism, unspecified type ([facility]) Hypothyroidism (acquired) ([facility]) H/O blood clots Excessive growth affecting management [...] care instructions given in writting by [facility] Care At Home document. [employer] Other Clinical Note 07-25-2021 Note Date & [...] care. Reviewed plan with Dr. Bruce Aburto, HIGH HEEL BUILDER 07/25/2021 09:22 note: ob scan LOLLY: 03/05/2022. [...] Plan reviewed by Dr. Healy. Petra Lombardi HIGH HEEL BUILDER 07/16/21 1409 TC to pt with quant = 3238 form yesterday; normal rise from 728 on 07/02; Pt doing well; no problems with Lovenox. PT transferred to [facility] to schedule OB US for next week at [facility]. Bere [address] RN 07/07/2021 11:47 Spoke with patient regarding BCHB=817. Pain=0. Patient states she will begin prometrium [...] Dr. Healy. RN to communicate. Petra Lombardi HIGH HEEL BUILDER 07/02/21 1304 Active Problems 16 weeks gestation [...] directed. Peak F (more content not included)... [facility] Chief complaint Narrative - Reported 06-19-2021 Note [...] 30 year-old who presents for a FET [id number] Hx:06/2020: IOL @ 38 weeks due to [...] HSG - images reviewed from [facility] 08/2018Uterine Cavity Evaluation:Normal uterine cavity on [...] Ashley 04/09/1989A in past year:2.8 cc125 mil/mL69% haudnywsRNI=110 million(recent IUI sample)Morph from original SA was 2.8% [id number] Work Phone: Evaluation note Note Date & Type Note Facility Evaluation note Diagnosis Sprain of left ankle, unspecified ligament, initial encounter- Primary documented in this encounter [facility] Work Phone: Evaluation note Note Date & Type Note Facility Evaluation note Diagnosis Third trimester state, incidental First trimester state, incidental Hypothyroidism, unspecified type (CMS/HCC) Hypothyroidism (acquired) (CMS/HCC) Unspecified hypothyroidism H/O blood clots Excessive growth affecting management of in third trimester, single or unspecified fetus documented in this encounter [facility] Discharge instructions Attachments Note Date & Type Note Facility Hospital Discharge instructions The following attachments cannot be sent through Care Everywhere.Ankle Sprain ([place])Ankle Sprain: Rehab Exercises ([place])documented in this encounter [facility] RASMUSSEN [employer] Work Phone: Summary Purpose Family History No [...] section and content) DATE CREATED AUTHOR 02/15/2019 [facility] DATE CREATED AUTHOR AUTHOR'S ORGANIZ ATION 11/12/2019 [facility] DATE CREATED AUTHOR AUTHOR'S ORGANIZ ATION 08/09/2020 [facility] DATE CREATED AUTHOR AUTHOR'S ORGANIZ ATION 07/26/2021 [employer] DATE CREATED AUTHOR AUTHOR'S ORGANIZ ATION 01/21/2023 [facility] DATE CREATED AUTHOR AUTHOR'S ORGANIZ ATION 03/06/2023 [facility] DATE CREATED AUTHOR AUTHOR'S ORGANIZ ATION 07/12/2023 [facility] DATE CREATED AUTHOR AUTHOR'S ORGANIZ ATION 10/04/2023 [facility] DATE CREATED AUTHOR AUTHOR'S ORGANIZ ATION 01/15/2024 [facility] DATE CREATED AUTHOR AUTHOR'S ORGANIZ ATION 03/01/2024 [facility] Specialists EPIC REASON FOR VISIT (unrecogniz ed section and content) Reason Comments Ankle Pain Rolled ankle during morning run. Swelling to lateral ankle. 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 Reason Comments Routine Visit Care Teams (unrecognized sec tion and content) Sap Pp Consultant Relationship Specialty Start Date End Date Evelyn Perez [address] [place] [id number] PCP - General Pediatrics 09/22/22 Sap Pp Consultant Relationship Specialty Start Date End Date Jesse Regan MD [address] [place], [place] [id number] PCP - General Family Medicine 11/30/23 FOR [...] BE BASED ON THE PRIMARY CLINICAL RECORDS. [employer] provides no warranty or guarantee of the accuracy or completeness of information in this document.
[2024-03-06 05:44] LABS: Hematocrit 38.8 % (36.0-48.0); Hemoglobin 12.9 g/dL (12.0-16.0); Mean Corpuscular HGB Conc 33.2 g/dL (29.9-35.2); Mean Corpuscular Hemoglobin 30.3 pg (26.7-34.0); Mean Corpuscular Volume 91.1 fL (81.0-99.0); Mean Platelet Volume 11.2 fL (9.5-13.5); Platelet Count 220 10^3/uL (150-450); Red Blood Count 4.26 10^6/uL (4.20-5.40); Red Cell Distribution Width 14.5 % (11.0-15.0); White Blood Count 13.6 10^3/uL (4.0-11.0)
[2024-03-06 05:55] LABS: Amphetamine Screen Urine NEGATIVE (NEGATIVE); Barbiturates Screen Urine NEGATIVE (NEGATIVE); Benzodiazepines Screen Urine NEGATIVE (NEGATIVE); Buprenorphine Screen Urine NEGATIVE (NEGATIVE); Cannabinoid Screen Urine NEGATIVE (NEGATIVE); Cocaine Screen Urine NEGATIVE (NEGATIVE); Methadone Screen Urine NEGATIVE (NEGATIVE); Methamphetamines Screen Urine NEGATIVE (NEGATIVE); Opiate Screen Urine NEGATIVE (NEGATIVE); Oxycodone Screen Urine NEGATIVE (NEGATIVE); Phencyclidine Screen Urine NEGATIVE (NEGATIVE); Tricyclic Antidepressant Urine NEGATIVE (NEGATIVE)
[2024-03-06] MEDS: 0.9 % SODIUM CHLORIDE 1,000 ML 125 ML IV (06:05)
[2024-03-06] MEDS: OXYTOCIN/0.9 % SODIUM CHLORIDE 10 UNITS/500 ML PLAST..BAG 6 UNIT IV (06:05)
[2024-03-06] MEDS: ROPIVACAINE HCL/PF 400 MG/200 ML PREMIX 6 MG EPIDURAL (10:49)
[2024-03-06] MEDS: 0.9 % SODIUM CHLORIDE 1,000 ML 1000 ML IV (10:50)
[2024-03-06] MEDS: ONDANSETRON PF 4 MG/2 ML VIAL IV (11:43)
[2024-03-06] MEDS: OXYTOCIN/0.9 % SODIUM CHLORIDE 20 UNITS/1,000 ML PLAST..BAG 125 UNIT IV (12:43)
--- NOTE | 2024-03-06 12:51 | PM.OBPRCVD ---
Procedure Intrapartal events: None Induction method: artificial rupture of membranes Delivery augmentation: pitocin Delivery monitor: external FHT and external uterine Route of delivery: Episiotomy Description: midline L&D Laceration Description: perineal - 2nd degree Delivery repair: Vicryl Estimated blood loss (mL): 200 Anesthesia type: Epidural Disposition: floor Infant Gender: female presentation: vertex Placental delivery description: Spontaneous cord description: 3 Vessels and Nuchal Cord (TIMES 2)
[2024-03-06] MEDS: METOCLOPRAMIDE HCL 10 MG/2 ML VIAL IVP (14:07)
[2024-03-06] MEDS: ACETAMINOPHEN 325 MG TABLET 650 MG PO ×2 (14:49→21:15)
[2024-03-06] MEDS: GLYCERIN/WITCH HAZEL PADS 1 PAD TOPICAL (14:50)
[2024-03-06] MEDS: BENZOCAINE/MENTHOL 85 GRAM SPRAY BOTTLE 1 APPLIC TOPICAL (14:50)
--- NOTE | 2024-03-06 16:53 | PC.NURSE ---
Discussed difficulty with latching and with infant's tight latch. discussed positioning for comfort and follow up for baby for correction. Verbalizes understanding
[2024-03-07] MEDS: ENOXAPARIN SODIUM 40 MG/0.4 ML SYRINGE SUBQ ×2 (01:06→23:44)
[2024-03-07] MEDS: ACETAMINOPHEN 325 MG TABLET 650 MG PO (03:00)
--- NOTE | 2024-03-07 07:32 | P.OBPN_ITS ---
OB - PN: Subj Subjective Patient comments: no complaints and pain well controlled [place] status: doing well Exam Constitutional Vital Signs, click to edit/add: Last Vital Signs Temp 97.9 F 03/06/24 21:30 Pulse 75 03/06/24 21:30 Resp 16 03/06/24 21:30 BP 110/73 03/06/24 21:30 O2 Del Method Room Air 03/06/24 21:30 Documenting provider has reviewed patient's vital signs: yes Common normals: no apparent distress Respiratory Common normals: normal respiratory effort and clear to auscultation bilaterally Cardio Common normals: regular rate and regular rhythm GI Common normals: Normal to inspection, nondistended, normoactive bowel sounds present Extremity Common normals: no clubbing, cyanosis or edema and no calf tenderness OB - PN: A/P Plan - Vaginal Delivery day: 1 Plan: routine care Time Spent with Patient Time: Total time spent is greater than 50% in coordination of care (as documented) at patient's floor/unit and/or counseling patient: Total time spent with greater than 50% in coordination of care (as documented) at patient's floor/unit and/or counseling patient: less than 15 minutes
[2024-03-07 08:10] VITALS: BP 115/60; PULSE 70; TEMP 36.6
[2024-03-07 08:25] LABS: Basophils Absolute Auto 0.1 10^3/uL (0.0-0.1); Basophils Percent Auto 0.7 % (0.2-2.0); Eosinophils Absolute Auto 0.2 10^3/uL (0.0-0.7); Eosinophils Percent Auto 1.5 % (0.9-7.0); Hematocrit 37.2 % (36.0-48.0); Hemoglobin 12.2 g/dL (12.0-16.0); Immature Granulocytes Abs Auto 0.16 10^3/uL (0.00-0.03); Immature Granulocytes Pct Auto 1.1 % (0.0-0.5); Lymphocytes Absolute Auto 2.5 10^3/uL (1.2-3.8); Lymphocytes Percent Auto 16.5 % (20.5-60.0); Mean Corpuscular HGB Conc 32.8 g/dL (29.9-35.2); Mean Corpuscular Hemoglobin 29.7 pg (26.7-34.0); Mean Corpuscular Volume 90.5 fL (81.0-99.0); Monocytes Absolute Auto 0.7 10^3/uL (0.3-0.8); Monocytes Percent Auto 4.3 % (1.7-12.0); Neutrophils Absolute Auto 11.4 10^3/uL (1.4-6.5); Neutrophils Percent Auto 75.9 % (43.0-75.0); Platelet Count 182 10^3/uL (150-450); Red Blood Count 4.11 10^6/uL (4.20-5.40); Red Cell Distribution Width 14.6 % (11.0-15.0)
[2024-03-07] MEDS: ACETAMINOPHEN 500 MG TABLET 1000 MG PO ×3 (09:07→22:44)
[2024-03-07] MEDS: LEVOTHYROXINE SODIUM 25 MCG TABLET PO (09:16)
[2024-03-07 14:44] VITALS: BP 129/77; PULSE 77; TEMP 35.9
[2024-03-07 14:45] VITALS: TEMP 37
[2024-03-07] MEDS: GLYCERIN/WITCH HAZEL PADS 1 PAD TOPICAL (19:22)
[2024-03-07 20:31] VITALS: BP 123/63; PULSE 74
[2024-03-07 21:53] VITALS: BP 123/63; PULSE 74; TEMP 36.9
[2024-03-07] MEDS: DOCUSATE SODIUM 100 MG CAPSULE PO (22:45)
[2024-03-08] MEDS: ACETAMINOPHEN 500 MG TABLET 1000 MG PO (06:40)
[2024-03-08] MEDS: LEVOTHYROXINE SODIUM 25 MCG TABLET PO (06:42)
--- NOTE | 2024-03-08 07:59 | PM.OBPN ---
OB - PN: Subj Subjective Patient comments: no complaints and pain well controlled [place] status: doing well Exam Constitutional Vital Signs, click to edit/add: Last Vital Signs Temp 98.4 F 03/07/24 21:53 Pulse 74 03/07/24 21:53 Resp 18 03/07/24 21:53 BP 123/63 03/07/24 21:53 O2 Del Method Room Air 03/07/24 21:53 Documenting provider has reviewed patient's vital signs: yes Common normals: no apparent distress Respiratory Common normals: clear to auscultation bilaterally Cardio Common normals: regular rate and regular rhythm GI Common normals: Normal to inspection, nondistended, normoactive bowel sounds present Extremity Common normals: no clubbing, cyanosis or edema and no calf tenderness Results Labs Labs: Short CBC 03/07/24 Range/Units 08:18 WBC 15.0 H (4.0-11.0) 10^3/uL Hgb 12.2 (12.0-16.0) g/dL Hct 37.2 (36.0-48.0) % Plt Count 182 (150-450) 10^3/uL OB - PN: A/P Plan - Vaginal Delivery day: 1 Plan: routine care, discharge home and follow up 6 weeks Comment: cont lovenox, precautions given to patient Time Spent with Patient Time: Total time spent is greater than 50% in coordination of care (as documented) at patient's floor/unit and/or counseling patient: Total time spent with greater than 50% in coordination of care (as documented) at patient's floor/unit and/or counseling patient: less than 15 minutes
[2024-03-08 08:30] VITALS: TEMP 36.7
[2024-03-08 08:42] VITALS: BP 114/54; PULSE 70
== END 2024-03-08 12:20 | disposition home or self-care (01) | DRG 806 ==
PROVIDERS: Admitting Provider Obstetrics & Gynecology; Visit Provider Obstetrics & Gynecology
DX: O99.12 Other diseases of the blood and blood-forming organs and certain disorders involving the immune mechanism complicating childbirth (principal); D68.59 Other primary thrombophilia; Z37.0 Single live birth; Z86.718 Personal history of other venous thrombosis and embolism; Z79.01 Long term (current) use of anticoagulants; O99.284 Endocrine, nutritional and metabolic diseases complicating childbirth; E03.9 Hypothyroidism, unspecified; Z3A.38 38 weeks gestation of pregnancy; O69.81X0 Labor and delivery complicated by cord around neck, without compression, not applicable or unspecified; O70.1 Second degree perineal laceration during delivery
CPT/HCPCS: 36415; 51701; 80307; 85025; 85027; 86850; 86900; 86901; 96372; 96374; 96375; 96376

== ENCOUNTER 2024-03-16 08:44 | Outpatient (OUT) | payer OTHER, SELFPAY ==
--- NOTE | 2024-03-16 11:53 | PC.NURSE ---
Kiara and 10 day old Ria arrive for support. Kiara states everything is going so well, she is an easy baby States baby fusses when hungry,or has soiled diaper. Wakes herself to eat every 2 hours during the day, and wakes every 3 during the night. Infant reported to have 10+ wet diapers and 8-10 yellow seedy stools in 24 hours. Latch is improved over last 10 days. Mom did have evaluated at [facility] in [place] for adjustment. Kiara states improvement was obvious after adjustment and continued stretch exercises. No concerns noted at this time. Will contact as needs with concerns. Leaves ambulatory with baby for home.
== END 2024-03-16 12:08 | disposition home or self-care (01) ==
LOC: FBCO 08:45
PROVIDERS: Visit Provider Obstetrics & Gynecology
DX: Z39.1 Encounter for care and examination of lactating mother (principal)
CPT/HCPCS: G0463

== ENCOUNTER 2024-08-15 15:33 | Outpatient (OUT) | payer OTHER, SELFPAY ==
--- OUTSIDE RECORDS SUMMARY | 2024-08-15 15:43 | XMS_ITS | CCD ---
Author Organization [facility] Care Team Providers Care Housing Management Representative Name Role Phone rBuce Mayes Attending Unavailable Bruce Mayes Primary Care Unavailable Shahla Healy Consulting Unavailable Bruce Mayes Attending Unavailable Bruce Mayes Primary Care Unavailable WeinShahla cantrell Consulting Unavailable Kelechi Gage Unavailable Unavailable OBGYN IVF RDMS ARDEN 1, MG OBGYN Unavailable Unavailable AnaEvelyn santana Unavailable Unavailabl e Riley, Shahla Unavailable Unavailable Weintamia, Shahla Unavailable Unavailable IVF NURSE OSMEL HER Unavailable Unavaila ble OBGYN IVF RDMS [id number] 1, MG OBGYN Unavailable Unavailable Paola King Unavailable Unavailable Weintamia, Shahla Unavailable Unavailable January, Jami Unavailable Unavailable Evelyn [...] Unavailable GISSEL ., DR CRUM Admitting Unavailable GISSLE ., DR CRUM Consulting Unavailable ANA, DR [...] Ana, Evelyn Husain Primary Care Provider [phone] JAMI ROMERO Attending Unavailable ANA, EVELYN Husain Primary Care Unavailabl e ANA, EVELYN Husain Primary Care Unavailabl e Lc Waite Admitting Unavailable Evelyn Perez Primary Care Unavailable Lc Waite Attending Unavailable Jesse Regan MD Primary Care Provider [phone] Link [facility], Zoya Cheung Attending Robert Perez MD, Evelyn Gracia Primary Care Zamzam vailable Ana CALDERÓN, Evelyn Gracia Primary Care Zamzam vailable Link [facility], Zoya Cheung Attending Unava ilable GISSEL, DEMARIO Attending Unavailable ELSA, BERE Attending Unavailable ELSA, BERE Attending Unavailable GISSEL, DEMARIO Attending Unavailable ELSA, BERE Attending Unavailable GISSEL, DEMARIO Attending Unavailable GISESL, DEMARIO Attending Unavailable ELSA, BERE Attending Unavailable GISSEL, DEMARIO Attending Unavailable ELSA, BERE Attending Unavailable ELSA, BERE Attending Unavailable GISSEL, DEMARIO R Referring Unavailable [facility]ITAL[facility], NIKHIL Primary Care Unavailable GISSEL, DEMARIO R Referring Unavailable SCHLACHTER, NIKHIL Primary Care Unavailable GISSEL, DEMARIO R Referring Unavailable SCHLACHTER, NIKHIL Primary Care Unavailable Allergies Allergy Classification Reported Allergen(s) Allergy Type Date of Onset Reaction(s) Facility Progesterone (2 sources) Progesterone; Translations: [Progesterone OIL] Drug Allergy [id number] n 310 IVF Work Phone: (16 sources) Progesterone; Translations: [Progesterone OIL] Drug Allergy 2 [facility] (2 sources) sesame seed extract Drug Allergy [facility] Repository (3 sources) Progesterone; Translations: [PROGESTERONE] Drug Allergy 2 [facility] (1 source) No Known Medication Allergies; Translations: [No Known Medication Allergies] Propensity to adverse reactions to drug (disorder) [facility] Repository Medications Current Medications Medication [...] Kelechi Gage MD Start : 14-Aug-2019 Active [id number] 200 actuat albuterol 0.09 mg/actuat metered dose [...] DO Start : 19-Jan-2019 Active BD Disp Novelty 27G X 1/2 (19 sources) Start: 10-03-2019 BD Disp Needle s 27G X 1/2 USE DIRECTED. Quantity: 2 Refills: 2 Shahla Healy MD Start : 03-Oct-2019 Active chorionic gonadotropin 91107 unt/ml injectable solution (19 sources) Gonadotropin Start: 10-03-2019 Chorionic Gonadotropin 56069 UNIT Intramuscular Solution Reconstituted USE DIRECTED. Quantity: [...] starting medications Quantity: 10 Refills: 2 Shahla Haely MD Start : 03-Oct-2019 Active loratadine 10 [...] Start : 25-Dec-2019 Active Peak Flow Meter [place] Rang Device (3 sources) Start: 01-23-2020 Peak Flow Mete r [place]ang Device USE DIRECTED. Quantity: 1 Refills: [...] Translations: [Infertility, female, of unspecified origin] Chronic Genitourinary symptoms and ill-defined conditions (1 source) Unspecified urinary incontinence; Translations: [Unspecified urinary incontinence] Onset: 4 Chronic Immunizations and screening for infectious disease [...] Episodic OB-related trauma to perineum and vulva (2 sources) Second degree perineal laceration during delivery; Translations: [Fourth degree perineal laceration during delivery] Onset: 02-25-2022 Episodic Other complications of ; [...] 03-29-2023 03-29-2023 Episodic Other connective tissue disease (1 source) Separation of muscle (nontraumatic), other site; Translations: [Separation of muscle (nontraumatic), other site] Onset: 05-11-2024 Episodic Other injuries and conditions due to external causes (2 sources) Injury of left ankle; Translations: [Unspecified injury of left ankle, initial encounter] Onset: 03-29-2023 03-29-2023 Episodic Other non-traumatic joint disorders (2 sources) Sinus tarsi syndrome of left ankle; Translations: [Pain in left ankle and joints of left foot] Onset: 05-15-2023 05-15-2023 Episodic Residual codes; unclassified (1 source) 38 [...] refills. Continue with anticoagulation as prescribed by 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, patient is currently 30 weeks gestation. Follow-up [...] embolism Historical No qualifying data Procedure/Surgical History Embarrass Teeth Removal (2005) IVF (11/15/2018) Medications Dulera [...] activity as tolerated Electronically signed by Link GREGORIO Zoyakandis Cheung 01/10/24 12:40 EST Normal [facility] Phone Note - Heme Onc-medica tion questionon 07-12-2023 Phone Note - Heme Onc-medication question Phone Call Information: Patient Demographics: Name: KIARA ASHLEY Date: 1990 Address: [address] [place] [address] Date and Time: 12-Jul-2023 09:31 Caller Information: call from Call From: patient Caller Name: Kiara Primary Phone Number: [phone] Reason for Call: Reason for Callmedication question [...] [facility] Script sent. Pt had no further questions or concerns at this time. Harmony Ross 07/12/2023 09:54 Lamoda Harmony 07/12/2023 09:57 Outpatient Medication Profile: * [...] acute osseous abnormality involving the left ankle. [facility] RIS CONSOLIDATED EXAMINATION: THREE XRAY VIEWS OF THE LEFT ANKLE 02/27/2023 11:46 am COMPARISON: None. HISTORY: ORDERING SYSTEM PROVIDED HISTORY: pain, swelling TECHNOLOGIST PROVIDED HISTORY: pain, swelling FINDINGS: The bone mineralization is within normal limits. The ankle mortise is stable. No acute fractures or dislocations are seen. There is no soft tissue swelling. [facility] Dario Caruso MD - 02/27/2023 EXAMINATION: THREE XRAY VIEWS [...] acute osseous abnormality involving the left ankle. [facility] Phone: Radiology Study observation (narrative) [facility] Phone: XR ANKLE LEFT (MIN 3 VIEWS)O rdered By: Dario William on 02-27-2023 [facility] Phone: PAP ACOG PANEL 2: 30 to 65on 01-19-2023 . . Normal [facility] Comment on above: Result Comment: Perf ormed at: WB Performed By: #### [id number] #### [facility] [address] [place] [address] Dr. Claire Mayes Age Gdln ACOG Testing 30-65 Normal [facility] Comment on above: Performed By: #### [id number] #### [facility] [address] [address] [address] Claire Mayes DIAGNOSIS: Comment Normal [facility] Comment on above: Result Comment: NEGA TIVE FOR INTRAEPITHELIAL LESION OR MALIGNANCY. Performed at: WB Performed By: #### [id number] #### [facility] [address] [address] [address] Claire Mayes HPV Aptima Negative Normal Negative [facility] Comment on above: Result Comment: This nucleic acid amplification test detects fourteen high-risk HPV types (16,18,31,33,35,39,45,51,52,56,58,59,66,68) without differentiation. Performed at: =G Performed By: #### [id number] #### [facility] [address] [place] [address] Dr. Claire Mayes HPV Genotype Reflex Comment Normal [facility] Comment on above: Result Comment: Crit eria not met, HPV Genotype not performed. Performed at: WB Performed By: #### [id number] #### [facility] [address] [place] [address] Dr. Claire Mayes Methodology: Comment Normal [facility] Comment on above: Result Comment: This liquid based ThinPrep(R) pap test was screened with the use of an image guided system. Performed at: WB Performed By: #### [id number] #### [facility] [address] [place] [address] Dr. Claire Mayes Note: Comment Normal [facility] Comment on above: Result Comment: The Pap smear is a screening test designed to aid in the detection of premalignant and malignant conditions of the uterine cervix. It is not a diagnostic procedure and should not be used as the sole means of detecting cervical cancer. Both false-positive and false-negative reports do occur. . Performed at: WB Performed By: #### [id number] #### [facility] [address] [place] [address] Dr. Claire Mayes Performed by: Comment Normal [facility] Comment on above: Result Comment: Sherlyn Wright, Blood Bank Assistant (ASCP) Performed at: WB Performed By: #### [id number] #### [facility] [address] [place] [address] Dr. Claire Mayes Specimen adequacy: Comment Normal [facility] Comment on above: Result Comment: Sati sfactory for evaluation. No endocervical component is identified. Performed at: WB Performed By: #### [id number] #### [facility] [address] [place] [address] Dr. Claire Mayes CBC with Diffon 09-22-2022 Abs. Basophil 0.03 k/uL Normal 0.00-0.20 [facility] Comment on above: Performed By: #### L IP, CDP, CP #### [facility] [address] [place] [address] [place] [address] [employer]: Jesse Curry MD Abs.Imm.Granulocy te 0.04 k/uL Normal 0.00-0.30 [facility] Comment on above: Performed By: #### L IP, CDP, CP #### [address] [place], [place] [address] [employer]: Jesse Curry MD Abs.Neutrophil (Seg) 12.54 k/uL High 1.50-8.10 [facility] Comment on above: Performed By: #### L IP, CDP, CP #### [address] [place] [address] [employer]: Jesse Curry MD Basophils/100 WBC (Bld) 0 % Normal 0-2 [facility] Comment on above: Performed By: #### L IP, CDP, CP #### [address] [place], [place] [address] [employer]: Jesse Curry MD Eosinophils (Bld) [#/Vol] 0.16 10*3/uL Normal 0.00-0.44 [facility] Comment on above: Performed By: #### L IP, CDP, CP #### [address] [place], [place] [address] [employer]: Jesse Curry MD Eosinophils/100 WBC (Bld) 1 % Normal 1-4 [facility] Comment on above: Performed By: #### L IP, CDP, CP #### [address] [place], [place] [address] [employer]: Jsese Curry MD Erythrocyte distribution width (RBC) [Ratio] 13.6 % Normal 11.8-14.4 [facility] Comment on above: Performed By: #### L IP, CDP, CP #### [facility] [address] [place], [facility] [employer]: Jesse Curry MD Hematocrit (Bld) [Volume fraction] 46.4 % Normal 36.3-47.1 [facility] Comment on above: Performed By: #### L IP, CDP, CP #### [address] [place], [place] [address] [employer]: Jesse Curry MD Hemoglobin (Bld) [Mass/Vol] 15.6 g/dL High 11.9-15.1 [facility] Comment on above: Performed By: #### L IP, CDP, CP #### [address] [place] [id number] [employer]: Jesse Curry MD Immature granulocytes/100 WBC (Bld) 0 % Normal 0 [facility] Comment on above: Performed By: #### L IP, CDP, CP #### [address] [place], [facility] [employer]: Jesse Curry MD Lymphocytes (Bld) [#/Vol] 0.98 10*3/uL Low 1.10-3.70 [facility] Comment on above: Performed By: #### L IP, CDP, CP #### [address] [place], [place] [address] [employer]: Jesse Curry MD Lymphocytes/100 WBC (Bld) 7 % Low 24-43 [facility] Comment on above: Performed By: #### L IP, CDP, CP #### [address] [place], [facility] [employer]: Jesse Curry MD MCH (RBC) [Entitic mass] 30.4 pg Normal 25.2-33.5 [facility] Comment on above: Performed By: #### L IP, CDP, CP #### [address] [place], [place] [id number] [employer]: Jesse Curry MD MCHC (RBC) [Mass/Vol] 33.6 g/dL Normal 28.4-34.8 [facility] Comment on above: Performed By: #### L IP, CDP, CP #### [address] [place], [place] [id number] [employer]: Jesse Curry MD MCV (RBC) [Entitic vol] 90.3 fL Normal 82.6-102.9 [facility] Comment on above: Performed By: #### L IP, CDP, CP #### [address] [place], [facility] [employer]: Jesse Curry MD Monocytes (Bld) [#/Vol] 0.58 10*3/uL Normal 0.10-1.20 [facility] Comment on above: Performed By: #### L IP, CDP, CP #### [address] [place], [facility] [employer]: Jesse Curry MD Monocytes/100 WBC (Bld) 4 % Normal 3-12 [facility] Comment on above: Performed By: #### L IP, CDP, CP #### [address] [place], [facility] [employer]: Jesse Curry MD Neutrophil (Seg) 88 % High 36-65 [facility] Comment on above: Performed By: #### L IP, CDP, CP #### [address] [place], [place] [address]83 [employer]: Jesse Curry MD NRBC Automated 0.0 per 100 WBC Normal 0.0 [facility] Comment on above: Performed By: #### L IP, CDP, CP #### [address] [place], [facility] [employer]: Jesse Curry MD Platelet mean volume (Bld) [Entitic vol] 9.9 fL Normal 8.1-13.5 [facility] Comment on above: Performed By: #### L BJ BUCK, CP #### [facility] [address] [place], [place] [id number] [employer]: Jesse Curry MD Platelets (Bld) [#/Vol] 299 10*3/uL Normal 138-453 [facility] Comment on above: Performed By: #### L BJ BUCK, CP #### [facility] [address] [place], [place] [address]388383 [employer]: Jesse Curry MD RBC (Bld) [#/Vol] 5.14 10*6/uL High 3.95-5.11 [facility] Comment on above: Performed By: #### L BJ BUCK, CP #### [address] [place], [place] 2047383 [employer]: Jesse Curry MD WBC (Bld) [#/Vol] 14.3 10*3/uL High 3.5-11.3 [facility] Comment on above: Performed By: #### L BJ BUCK, CP #### [address] [place], [place] [address]83 [employer]: Jesse Curry MD CT ABDOMEN PELVIS W [...] By: #### L BJ BUCK, CP #### [facility] [address] [place] [address] [place] [address] [employer]: Jesse Curry MD Albumin/Glob Ratio 2.0 Normal 1.0-2.5 [facility] Comment on above: Performed By: #### L BJ BUCK, CP #### [facility] [address] [place] [address] [employer]: Jesse Curry MD Alkaline Phos 77 U/L Normal 35-104 [facility] Comment on above: Performed By: #### L BJ BUCK, CP #### [facility] [address] [place] [address] [employer]: Jesse Curry MD ALT [Catalytic activity/Vol] 10 U/L Normal 5-33 [facility] Comment on above: Performed By: #### L IP, CDP, CP #### [facility] [address] [place], [place] [id number] [employer]: Jesse Curry MD Anion gap [Moles/Vol] 12 mmol/L Normal 9-17 [facility] Comment on above: Performed By: #### L IP, CDP, CP #### [facility] [address] [place], [place] 7[address]183 [employer]: Jesse Curry MD AST [Catalytic activity/Vol] 14 U/L Normal <32 [facility] Comment on above: Performed By: #### L IP, CDP, CP #### [facility] [address] [place], [place] [address] [employer]: Jesse Curry MD Bilirubin [Mass/Vol] 0.6 mg/dL Normal 0.3-1.2 [facility] Comment on above: Performed By: #### L IP, CDP, CP #### [facility] [address] [place] [address] Dr. [place], [place] 6[address]83 [employer]: Jesse Curry MD BUN/CRE Ratio 31 High 9-20 [facility] Comment on above: Performed By: #### L IP, CDP, CP #### [address] [place], [place] [address]683 [employer]: Jesse Curry MD Calcium [Mass/Vol] 9.8 mg/dL Normal 8.6-10.4 [facility] Comment on above: Performed By: #### L IP, CDP, CP #### [facility] [address] [place], [place] [address]83 [employer]: Jesse Curry MD Chloride [Moles/Vol] 104 mmol/L Normal 98-107 [facility] Comment on above: Performed By: #### L IP, CDP, CP #### [facility] [address] [place] [address] [employer]: Jesse Curry MD CO2 [Moles/Vol] 22 mmol/L Normal 20-31 [facility] Comment on above: Performed By: #### L IP CDP, CP #### [facility] [address] [place] [address] [employer]: Jesse Curry MD Creatinine [Mass/Vol] 0.85 mg/dL Normal 0.50-0.90 [facility] Comment on above: Performed By: #### L IP, CDP, CP #### [facility] [address] [place] [address] [employer]: Jesse Curry MD GFR/1.73 sq M.predicted among [...] By: #### L IP CDP, CP #### [address] [place] [address] [employer]: Jesse Curry MD Glucose [Mass/Vol] 109 mg/dL High 70-99 [facility] Comment on above: Performed By: #### L IP CDP, CP #### [address] [place] [address] [employer]: Jesse Curry MD Potassium [Moles/Vol] 4.0 mmol/L Normal 3.7-5.3 [facility] Comment on above: Performed By: #### L IP, CDP, CP #### [facility] [address] [place] [address] [employer]: Jesse Curry MD Protein [Mass/Vol] 7.1 g/dL Normal 6.4-8.3 [facility] Comment on above: Performed By: #### L IP, CDP, CP #### [facility] [address] [place], [place] [address]83 [employer]: Jesse Curry MD Sodium [Moles/Vol] 138 mmol/L Normal 135-144 [facility] Comment on above: Performed By: #### L IP, CDP, CP #### [address] [place] [address] [employer]: Jesse Curry MD Urea nitrogen [Mass/Vol] 26 mg/dL High 6-20 [facility] Comment on above: Performed By: #### L IP, CDP, CP #### [address] [place] [address] [employer]: Jesse Curry MD HCG, ,Urineon 09-22 Beta [...] with quantitative serum b-hCG level is suggested. [facility] has confirmed the use of plasma for this test. This has not been cleared or approved by the U.S. Food and Drug Administration. The FDA has determined that such clearance is not necessary. Performed By: #### U HCG #### [address] [place] [address] [employer]: Jesse Curry MD Lactic Acidon 09-22-2022 Lactate [Moles/Vol] 1.8 mmol/L Normal 0.5-2.2 [facility] Comment on above: Performed By: #### L ACTIC #### [facility] [address] [place], [place] [address]83 [employer]: Jesse Curry MD Lipaseon 09-22-2022 Lipase [Catalytic activity/Vol] 39 U/L Normal 13-60 [facility] Comment on above: Performed By: #### L IP, CDP, CP #### [facility] [address] [place], [place] [address]83 [employer]: Jesse Curry MD UA w/Reflex Cultureon 2021 Bilirubin, SemiQt,Ur Negative Normal NEG [facility] Comment on above: Performed By: #### U MICAO, UAX #### [facility] [address] [place] [address] Dr. [place], [place] 390[address]83 [employer]: Jesse Curry MD Blood, Urine Negative Normal NEG [facility] Comment on above: Performed By: #### U MICAO, UAX #### [facility] [address] [place], [place] [address] [employer]: Jesse Curry MD Clarity (U) Clear Normal CLEAR [facility] Comment on above: Performed By: #### U MICAO, UAX #### [facility] [address] [place] [address] Dr. [place], [place] [address]3 [employer]: Jesse Curry MD Color (U) Yellow Normal YEL [facility] Comment on above: Performed By: #### U MICAO, UAX #### [facility] [address] [place], [place] [address]83 [employer]: Jesse Curry MD Glucose Ql (U) Negative Normal NEG [facility] Comment on above: Performed By: #### U MICAO, UAX #### [facility] [address] [place], [place] [address]83 [employer]: Jesse Curry MD Ketones Ql (U) Negative Normal NEG [facility] Comment on above: Performed By: #### U MICAO, UAX #### [facility] [address] [place], [place] [address]37483 [employer]: Jesse Curry MD Leukocyte esterase Test strip Ql (U) Negative Normal NEG [facility] Comment on above: Performed By: #### U MICAO, UAX #### [facility] [address] [place] [address] [place] [address] [employer]: Jesse Curry MD Nitrite,Ur Negative Normal NEG [facility] Comment on above: Performed By: #### U MICAO, UAX #### [facility] [address] [place] [address] Dr. [place], [place] 3529683 [employer]: Jesse Curry MD PH,Ur 8.0 Normal 5.0-9.0 [facility] Comment on above: Performed By: #### U MICAO, UAX #### [facility] [address] [place] [address] [place] [address] [employer]: Jesse Curry MD Protein Ql (U) Negative Normal NEG [facility] Comment on above: Performed By: #### U MICAO, UAX #### [address] [place] [address] [employer]: Jesse Curry MD Spec. [place],Ur 1.020 Normal 1.010-1.020 [facility] Comment on above: Performed By: #### U MICAO, UAX #### [facility] [address] [place] [address] [place] [address] [employer]: Jesse Curry MD Urobilinogen,Ur Normal Normal NORM [facility] Comment on above: Performed By: #### U MICAO, UAX #### [facility] [address] [place] [address] Dr. [place], [place] [id number] [employer]: Jesse Curry MD Urinalysis,Microon 2 Bacteria TRACE Abnormal NONE [facility] Comment on above: Performed By: #### U MICAO, UAX #### [facility] [address] [place], [facility] [employer]: Jesse Curry MD Epithelial cells LM Ql (Urine sed) 0 TO 2 Normal 0-25 [facility] Comment on above: Performed By: #### U MICAO, UAX #### [facility] [address] [place], [facility] [employer]: Jesse Curry MD Urine RBC's None Normal 0-2 [facility] Comment on above: Performed By: #### U MICAO, UAX #### [facility] [address] [place], [facility] [employer]: Jesse Curry MD Urine WBC's 0 TO 2 Normal 0-5 [facility] Comment on above: Performed By: #### U ESTRELLITAO, UAX #### [facility] [address] [place], [facility] [employer]: Jesse Curry MD CBC AUTO DIFFon 02-20-2022 BASO # 0.1 103/ul Normal 0.0-0.1 [facility] Comment on above: Performed By: #### C BC #### [facility] [address] [address] [address] Claire Mayes Basophils/100 WBC (Bld) 0.8 % Normal 0.2-2.0 [facility] Comment on above: Performed By: #### C BC #### [facility] [address] [address] [address] Claire Mayes EO # 0.2 103/ul Normal 0.0-0.7 [facility] Comment on above: Performed By: #### C BC #### [facility] [address] [address] [address] Claire Mayes Eosinophils/100 WBC (Bld) 0.9 % Normal 0.9-7.0 [facility] Comment on above: Performed By: #### C BC #### [facility] [address] [address] Dr. Claire Mayes Erythrocyte distribution width (RBC) [Ratio] 15.0 % Normal 11.0-15.0 [facility] Comment on above: Performed By: #### C BC #### [facility] [address] [place] [address] Dr. Claire Mayes Hematocrit (Bld) [Volume fraction] 31.3 % Critically low 36.0-48.0 [facility] Comment on above: Performed By: #### C BC #### [facility] [address] [place] [address] Dr. Claire Mayes Hemoglobin (Bld) [Mass/Vol] 10.3 g/dL Critically low 12.0-16.0 [facility] Comment on above: Performed By: #### C BC #### [facility] [address] [place] [address] Dr. Claire Mayes IG # 0.21 10e3/ul Critically high 0.00-0.03 [facility] Comment on above: Performed By: #### C BC #### [facility] [address] [place] [address] Dr. Claire Mayes IG % 1.3 % Critically high 0.0-0.5 [facility] Comment on above: Performed By: #### C BC #### [facility] [address] [place] [address] Dr. Claire Mayes LYMPH # 2.1 103/ul Normal 1.2-3.8 [facility] Comment on above: Performed By: #### C BC #### [facility] [address] [place] [address] Dr. Claire Mayes Lymphocytes/100 WBC (Bld) 12.6 % Critically low 20.5-60.0 [facility] Comment on above: Performed By: #### C BC #### [facility] [address] [place] [address] Dr. Claire Mayes MANUAL DIFF REQ NO Normal [facility] Comment on above: Performed By: #### C BC #### [facility] [address] [place] [address] Dr. Claire Mayes MCH (RBC) [Entitic mass] 29.8 pg Normal 26.7-34.0 [facility] Comment on above: Performed By: #### C BC #### [facility] [address] [place] [address] Dr. Claire Mayes MCHC (RBC) [Mass/Vol] 32.9 g/dL Normal 29.9-35.2 [facility] Comment on above: Performed By: #### C BC #### [facility] [address] [place] [address] Dr. Claire Mayes MCV (RBC) [Entitic vol] 90.5 fL Normal 81.0-99.0 [facility] Comment on above: Performed By: #### C BC #### [facility] [address] [place] [address] Dr. Claire Mayes MONO # 0.8 103/ul Normal 0.3-0.8 [facility] Comment on above: Performed By: #### C BC #### [facility] [address] [place] [address] Dr. Claire Mayes Monocytes/100 WBC (Bld) 5.1 % Normal 1.7-12.0 [facility] Comment on above: Performed By: #### C BC #### [facility] [address] [place] [address] Dr. Claire Mayes NEUT # 13.2 103/ul Critically high 1.4-6.5 [facility] Comment on above: Performed By: #### C BC #### [facility] [address] [place] [address] Dr. Claire Mayes Neutrophils/100 WBC (Bld) 79.3 % Critically high 43.0-75.0 [facility] Comment on above: Performed By: #### C BC #### [facility] [address] [place] [address] Dr. Claire Mayes Platelet mean volume (Bld) [Entitic vol] 10.4 fL Normal 9.5-13.5 [facility] Comment on above: Performed By: #### C BC #### [facility] [address] [place] [address] Dr. Claire Mayes PLT 233 103/ul Normal 150-450 [facility] Comment on above: Performed By: #### C BC #### [facility] [address] [place] [address] Dr. Claire Mayes RBC 3.46 106/ul Critically low 4.20-5.40 [facility] Comment on above: Performed By: #### C BC #### [facility] [address] [place] [address] Dr. Claire Mayes WBC 16.6 103/ul Critically high 4.0-11.0 [facility] Comment on above: Performed By: #### C BC #### [facility] [address] [place] [address] Dr. Claire Mayes CBC AUTO DIFFon 02-18-2022 BASO # 0.1 103/ul Normal 0.0-0.1 [facility] Comment on above: Performed By: #### C BC #### [facility] [address] [place] [address] Dr. Claire Mayes Basophils/100 WBC (Bld) 0.7 % Normal 0.2-2.0 [facility] Comment on above: Performed By: #### C BC #### [facility] [address] [place] [address] Dr. Claire Mayes EO # 0.2 103/ul Normal 0.0-0.7 [facility] Comment on above: Performed By: #### C BC #### [facility] [address] [place] [address] Dr. Claire Mayes Eosinophils/100 WBC (Bld) 1.2 % Normal 0.9-7.0 [facility] Comment on above: Performed By: #### C BC #### [facility] [address] [place] [address] Dr. Claire Mayes Erythrocyte distribution width (RBC) [Ratio] 15.0 % Normal 11.0-15.0 [facility] Comment on above: Performed By: #### C BC #### [facility] [address] [address] [address] Claire Mayes Hematocrit (Bld) [Volume fraction] 35.1 % Critically low 36.0-48.0 [facility] Comment on above: Performed By: #### C BC #### [facility] [address] [address] [address] Claire Mayes Hemoglobin (Bld) [Mass/Vol] 11.8 g/dL Critically low 12.0-16.0 [facility] Comment on above: Performed By: #### C BC #### [facility] [address] [place] [address] Dr. Claire Mayes IG # 0.30 10e3/ul Critically high 0.00-0.03 [facility] Comment on above: Performed By: #### C BC #### [facility] [address] [place] [address] Dr. Claire Mayes IG % 1.9 % Critically high 0.0-0.5 [facility] Comment on above: Performed By: #### C BC #### [facility] [address] [place] [address] Dr. Claire Mayes LYMPH # 2.9 103/ul Normal 1.2-3.8 [facility] Comment on above: Performed By: #### C BC #### [facility] [address] [place] [address] Dr. Claire Mayes Lymphocytes/100 WBC (Bld) 18.5 % Critically low 20.5-60.0 [facility] Comment on above: Performed By: #### C BC #### [facility] [address] [place] [address] Dr. Claire Mayes MANUAL DIFF REQ NO Normal [facility] Comment on above: Performed By: #### C BC #### [facility] [address] [place] [address] Dr. Claire Mayes MCH (RBC) [Entitic mass] 30.2 pg Normal 26.7-34.0 [facility] Comment on above: Performed By: #### C BC #### [facility] [address] [address] [address] Claire Mayes MCHC (RBC) [Mass/Vol] 33.6 g/dL Normal 29.9-35.2 [facility] Comment on above: Performed By: #### C BC #### [facility] [address] [address] [address] Claire Mayes MCV (RBC) [Entitic vol] 89.8 fL Normal 81.0-99.0 [facility] Comment on above: Performed By: #### C BC #### [facility] [address] [place] [address] Dr. Claire Mayes MONO # 0.7 103/ul Normal 0.3-0.8 [facility] Comment on above: Performed By: #### C BC #### [facility] [address] [place] [address] Dr. Claire Mayes Monocytes/100 WBC (Bld) 4.7 % Normal 1.7-12.0 [facility] Comment on above: Performed By: #### C BC #### [facility] [address] [place] [address] Dr. Claire Mayes NEUT # 11.3 103/ul Critically high 1.4-6.5 [facility] Comment on above: Performed By: #### C BC #### [facility] [address] [place] [address] Dr. Claire Mayes Neutrophils/100 WBC (Bld) 73.0 % Normal 43.0-75.0 [facility] Comment on above: Performed By: #### C BC #### [facility] [address] [place], [place] [id number] Dr. Claire Mayes Platelet mean volume (Bld) [Entitic vol] 10.8 fL Normal 9.5-13.5 [facility] Comment on above: Performed By: #### C BC #### [facility] [address] [place] [address] Dr. Claire Mayes PLT 233 103/ul Normal 150-450 [facility] Comment on above: Performed By: #### C BC #### [facility] [address] [place], [place] [id number] Dr. Claire Mayes RBC 3.91 106/ul Critically low 4.20-5.40 [facility] Comment on above: Performed By: #### C BC #### [facility] [address] [address] [address] Claire Mayes WBC 15.5 103/ul Critically high 4.0-11.0 [facility] Comment on above: Performed By: #### C BC #### [facility] [address] [place] [address] Dr. Claire Mayes Covid-19 PCR (CVDTBH)on SARS-CoV-2 (COVID-19) RNA FERDINAND+probe Ql (Unsp spec) Not detected Normal NOT DETECTED [facility] Comment on above: Result Comment: When [...] for this test is supported by the [place] of Health and Human Service's declaration that [...] used). Performed By: #### C VDTBH #### [facility] [address] [place] [address] Dr. Claire Mayes DRUG SCREEN RAPID (URINE)on 02-18-2022 AMP Negative Normal NEGATIVE [facility] Comment on above: Performed By: #### D RUGRPD #### [facility] [address] [place] [address] Dr. Claire Mayes BAR Negative Normal NEGATIVE [facility] Comment on above: Performed By: #### D RUGRPD #### [facility] [address] [place] [address] Dr. Claire Mayes BUP Negative Normal NEGATIVE [facility] Comment on above: Performed By: #### D RUGRPD #### [facility] [address] [place] [address] Dr. Claire Mayes BZO Negative Normal NEGATIVE [facility] Comment on above: Performed By: #### D RUGRPD #### [facility] [address] [place] [address] Dr. Claire Mayes KIT Negative Normal NEGATIVE [facility] Comment on above: Performed By: #### D RUGRPD #### [facility] [address] [place] [address] Dr. Claire Mayes CUT-OFFS SEE BELOW Normal [facility] Comment on above: Result Comment: AMP [...] ng/mL Performed By: #### D RUGRPD #### [facility] [address] [place] [address] Dr. Claire Mayes DRUG CUT HEADER DRUG CLASS TEST SYST EM CUT-OFF CONCENTRATIONS ARE FOLLOWS: Normal [facility] Comment on above: Performed By: #### D RUGRPD #### [facility] [address] [place] [address] Dr. Claire Mayes mAMP Negative Normal NEGATIVE [facility] Comment on above: Performed By: #### D RUGRPD #### [facility] [address] [place] [address] Dr. Claire Mayes MTD Negative Normal NEGATIVE [facility] Comment on above: Performed By: #### D RUGRPD #### [facility] [address] [address] [address] Claire Mayes OPI Negative Normal NEGATIVE [facility] Comment on above: Performed By: #### D RUGRPD #### [facility] [address] [address] [address] Claire Mayes OXY Negative Normal NEGATIVE [facility] Comment on above: Performed By: #### D RUGRPD #### [facility] [address] [address] [address] Claire Mayes PCP Negative Normal NEGATIVE [facility] Comment on above: Performed By: #### D RUGRPD #### [facility] [address] [place] [address] Dr. Claire Mayes PPX Negative Normal NEGATIVE [facility] Comment on above: Performed By: #### D RUGRPD #### [facility] [address] [place] [address] Dr. Claire Mayes TCA Negative Normal NEGATIVE [facility] Comment on above: Performed By: #### D RUGRPD #### [facility] [address] [address] [address] Claire Mayes THC Negative Normal NEGATIVE [facility] Comment on above: Performed By: #### D RUGRPD #### [facility] [address] [place] [address] Dr. Claire Mayes TYPE AND SCREENon 02-18-2022 TYPE AND SCREEN Negative Normal [facility] Comment on above: Performed By: #### T NS #### [facility] [address] [place] [address] Dr. Claire Mayes US PREG BIOPHY W [...] JESSE THOMAS Date: 2022-02-17 14:27 Normal [facility] US PREG BIOPHY W NON STRESSo [...] BLU FELIPE Date: 2022-02-10 16:40 Normal [facility] GROUP B STREP CULTUREon 01-14 S. agalactiae Ag Ql (Unsp spec) Culture Observations: Beta Strep called to Belgica Lange at office 02/04/22 @1504 [facility] Isolate 1 Streptococcus agalactiae Heavy growth of ORGANISM 1 Streptococcus agalactiae ANTIBIOTIC M.I.C RX STATUS Benzylpenicillin <=0.06 S F Ampicillin <=0.25 S F Cefotaxime <=0.12 S F Ceftriaxone <=0.12 S F Levofloxacin 0.5 S F Erythromycin 2 R F Clindamycin <=0.25 S F Linezolid <=2 S F Vancomycin 0.5 S F Tetracycline >=16 R F Normal [facility] Comment on above: Performed By: #### G BSCX #### [facility] [address] [place] [address] Dr. Claire Mayes US PREG BIOPHY W [...] by: JESSE THOMAS Date: 2022-02-03 16:02 Normal [facility] LMPon 06-19-2021 Last menstrual period start date [id number] n 310 IVF Work Phone: DATA ANALYST REPORT WRITER - Office Visiton DATA ANALYST REPORT WRITER - Office Visit Diagnoses/Problems Assessed Irregular menses (626.4) (N92.6) Female infertility (628.9) (N97.9) Protein S deficiency (289.81) (D68.59) Occupation [facility] Provider Impressions 30 year-old desires to [...] ] Imaging: Saline US, can do at [place] [x ] Vitamin D, TSH, prolactin [ [...] contour on HSG - images reviewed from [facility] 08/2018 Uterine Cavity Evaluation: Normal uterine [...] Peak E2 1871--> IM P4--> successful 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 Hx: LMP: 05/29/21 Menstrual cycles: Have been fairly regular for the past 3 months; 30-35 days Pap smear: 2019, up to date Mammogram: None PMH/Surg Hx/Social Hx: See below Hx of Clotting disorders: Yes- Protein S deficiency Currently on Lovenox 40 mg daily Was on Lovenox 60 mg daily prior to Needs to be on therapeutic dosing when Genetic Screening Hx: revoPT screen negative Partner History: Franklin Ashley 04/09/1990 SA in past year: 2.8 cc 125 mil/mL 69% motility HEJ=190 million (recent IUI sample) Morph from original SA was 2.8% Active Problems Problems 16 weeks gest (more content not included)... Normal [employer] CBC AND DIFFERENTIALon 08-06 % AUTOMATED IMMATURE GRAN 0.3 % Normal 0.0 - 0.9 [facility] Comment on above: Result Comment: Graciela ture Granulocyte Count (IG) includes promyelocytes, myelocytes and metamyelocytes but does not include bands. Percent differential counts (%) should be interpreted in the context of the absolute cell counts (cells/L). Performed By: #### C BCDF #### [address] [place] [address] Basophils (Bld) [#/Vol] 0.09 10*3/uL Normal 0.00 - 0.10 [facility] Comment on above: Performed By: #### C BCDF #### [address] [place] [address] Basophils/100 WBC (Bld) 0.9 % Normal 0.0 - 2.0 [facility] Comment on above: Performed By: #### C BCDF #### [address] [place] [address] Eosinophils (Bld) [#/Vol] 0.23 10*3/uL Normal 0.00 - 0.70 [facility] Comment on above: Performed By: #### C BCDF #### [address] [place] [address] Eosinophils/100 WBC (Bld) 2.4 % Normal 0.0 - 6.0 [facility] Comment on above: Performed By: #### C BCDF #### [address] [place] [address] Erythrocyte distribution width (RBC) [Ratio] 14.3 % Normal 11.5 - 14.5 [facility] Comment on above: Performed By: #### C BCDF #### [address] [place] [address] Hematocrit (Bld) [Volume fraction] 40.4 % Normal 36.0 - 46.0 [facility] Comment on above: Performed By: #### C BCDF #### [address] [place] [address] Hemoglobin (Bld) [Mass/Vol] 12.9 g/dL Normal 12.0 - 16.0 [facility] Comment on above: Performed By: #### C BCDF #### [address] [place] [address] Lymphocytes (Bld) [#/Vol] 2.44 10*3/uL Normal 1.20 - 4.80 [facility] Comment on above: Performed By: #### C BCDF #### [address] [place] [address] Lymphocytes/100 WBC (Bld) 25.7 % Normal 13.0 - 44.0 [facility] Comment on above: Performed By: #### C BCDF #### [address] [place] [address] MCHC (RBC) [Mass/Vol] 31.9 g/dL Low 32.0 - 36.0 [facility] Comment on above: Performed By: #### C BCDF #### [address] [place] [address] MCV (RBC) [Entitic vol] 88 fL Normal 80 - 100 [facility] Comment on above: Performed By: #### C BCDF #### [address] [place] [address] Monocytes (Bld) [#/Vol] 0.55 10*3/uL Normal 0.10 - 1.00 [facility] Comment on above: Performed By: #### C BCDF #### [address] [place] [address] Monocytes/100 WBC (Bld) 5.8 % Normal 2.0 - 10.0 [facility] Comment on above: Performed By: #### C BCDF #### [address] [place] [address] Neutrophils (Bld) [#/Vol] 6.15 10*3/uL Normal 1.20 - 7.70 [facility] Comment on above: Performed By: #### C BCDF #### [address] [place] [address] Neutrophils/100 WBC (Bld) 64.9 % Normal 40.0 - 80.0 [facility] Comment on above: Performed By: #### C BCDF #### [address] [place] [address] Platelets (Bld) [#/Vol] 410 10*3/uL Normal 150 - 450 [facility] Comment on above: Performed By: #### C BCDF #### [address] [place] [address] RBC (Bld) [#/Vol] 4.58 x10E12/L Normal 4.00 - 5.20 [facility] Comment on above: Performed By: #### C BCDF #### [address] [place] [address] WBC (Bld) [#/Vol] 9.5 10*3/uL Normal 4.4 - 11.3 [facility] Comment on above: Performed By: #### C BCDF #### [facility] [address] [place] [address] DATA ANALYST REPORT WRITER - Visiton 08-06-2020 DATA ANALYST REPORT WRITER - Visit Chief Complaint The patient is [...] with LMWH and has follow-up with her Rf Technician 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 Reports her asthma is stable. [...] or homicidal ideation Vitals Vital Signs Recorded: [id number] 01:08PM Heart Rate62 Lwyfzzxv503 Tqeuklfxq14 Height5 ft 2 in Nclmro351 lb BMI Ddzypuokty73.28 BSA Calculated1.79 Tobacco Useb) No Fall Screeninga) [...] ongoing well-woman care with her current local Community Relations Specialist. She has Hematology follow-up today following our [...] Aug 06 2020 2:00PM EST (Author) Normal [employer] [facility] Complete Blood Count + Diffe marc 06-27-2020 Basophils/100 WBC (Bld) 0.5 % 0.0 - 2.0 UD-XXUFV-Cmwzb [address] Work Phone: Eosinophils (Bld) [#/Vol] 0.24 {x10E9/L} See Below JI-IOQMW-Ymudz wn 2nd Fl Work Phone: Comment on above: Reference Range: 0.0 0 - 0.70 Eosinophils/100 WBC (Bld) 1.1 % 0.0 - 6.0 XJ-VAIFL-Rpial wn 2nd Fl Work Phone: Erythrocyte distribution width (RBC) [Ratio] 15.0 % above high threshold See Below GB-ZOTTF-Ltzow wn 2nd Fl Work Phone: Comment on above: Reference Range: 11. 5 - 14.5 Hematocrit (Bld) [Volume fraction] 30.0 % below low threshold See Below AK-LAJAK-Xceru wn 2nd Fl Work Phone: Comment on above: Reference Range: 36. 0 - 46.0 Hemoglobin (Bld) [Mass/Vol] 9.8 g/dL below low threshold See Below FG-BQEQU-Xhtqj wn 2nd Fl Work Phone: Comment on above: Reference Range: 12. 0 - 16.0 Lymphocytes (Bld) [#/Vol] 2.25 {x10E9/L} See Below VA-TONDR-Xluur wn 2nd Fl Work Phone: Comment on above: Reference Range: 1.2 0 - 4.80 Lymphocytes/100 WBC (Bld) 10.4 % See Below LB-LEEFB-Kauds wn 2nd Fl Work Phone: Comment on above: Reference Range: 13. 0 - 44.0 MCHC (RBC) [Mass/Vol] 32.7 g/dL See Below ZV-VYGCC-Shocr wn 2nd Fl Work Phone: Comment on above: Reference Range: 32. 0 - 36.0 MCV (RBC) [Entitic vol] 91 fL 80 - 100 KR-IDBZC-Lyjnl wn 2nd Fl Work Phone: Monocytes (Bld) [#/Vol] 0.84 {x10E9/L} See Below SO-EYBXR-Jkbbp wn 2nd Fl Work Phone: Comment on above: Reference Range: 0.1 0 - 1.00 Monocytes/100 WBC (Bld) 3.9 % 2.0 - 10.0 XA-WVUXA-Gjywf wn 2nd Fl Work Phone: Neutrophils/100 WBC (Bld) 82.7 % See Below OR-NNCYC-Rqiww wn 2nd Fl Work Phone: Comment on above: Reference Range: 40. 0 - 80.0 Platelets (Bld) [#/Vol] 225 {x10E9/L} 150 - 450 IB-EKTNM-Pfvjm wn 2nd Fl Work Phone: RBC (Bld) [#/Vol] 3.31 {x10E12/L} below low threshold See Below RM-FUYWO-Dzkov wn 2nd Fl Work Phone: Comment on above: Reference Range: 4.0 0 - 5.20 WBC (Bld) [#/Vol] 0.0 {/100_WBC} 0.0-0.0 MG- OBGYN[address] Work Phone: WBC (Bld) [#/Vol] 21.6 {x10E9/L} above high threshold 4.4 - 11.3 WY-WTXMI-Apnzb[address] Work Phone: Complete Blood Count + Differential 0.11 {x10E9/L} above high threshold See Below QQ-KSABV-Ycamx wn 2nd Fl Work Phone: Comment on above: Reference Range: 0.0 0 - 0.10 Complete Blood Count + Differential 1.4 % above high threshold 0.0 - 0.9 FD-QOMIK-Cwncg[address] Work Phone: Comment on above: Immature Granulocyte Count (IG) includes promyelocytes, myelocytes and metamyelocytes but does not include bands. Percent differential counts (%) should be interpreted in the context of the absolute cell counts (cells/L). Complete Blood Count + Differential 17.85 {x10E9/L} above high threshold See Below RH-ZBPTS-Jfzba[address] Work Phone: Comment on above: Reference Range: 1.2 0 - 7.70 Hematologyon 06-26-2020 Hematocrit (Bld) [Volume fraction] 30.5 % below low threshold See Below WB-SQQQG-Jxenq wn 2nd Fl Work Phone: Comment on above: Reference Range: 36. 0 - 46.0 Hemoglobin (Bld) [Mass/Vol] 10.7 g/dL below low threshold See Below BM-FIQHE-Ppjmr wn 2nd Fl Work Phone: Comment on above: Reference Range: 12. 0 - 16.0 MCV (RBC) [Entitic vol] 84 fL 80 - 100 CN-RQKQI-Ptbjf wn 2nd Fl Work Phone: Platelets (Bld) [#/Vol] 258 {x10E9/L} 150 - 450 GD-RDYOY-Wuelp wn 2nd Fl Work Phone: RBC (Bld) [#/Vol] 3.62 {x10E12/L} below low threshold See Below WH-HCIXS-Sgcae wn 2nd Fl Work Phone: Comment on above: Reference Range: 4.0 0 - 5.20 WBC (Bld) [#/Vol] 0.0 {/100_WBC} 0.0-0.0 MG- OBGYN-Midto wn 2nd Fl Work Phone: WBC (Bld) [#/Vol] 35.7 {x10E9/L} above high threshold 4.4 - 11.3 FU-JVOTT-Hpspk wn 2nd Fl Work Phone: Otheron 06-26-2020 Erythrocyte distribution width (RBC) [Ratio] 14.6 % above high threshold See Below XO-WKLCD-Qfxxa wn 2nd Fl Work Phone: Comment on above: Reference Range: 11. 5 - 14.5 MCHC (RBC) [Mass/Vol] 35.1 g/dL See Below VI-ZLJQI-Dlsvd wn 2nd Fl Work Phone: Comment on above: Reference Range: 32. 0 - 36.0 Name KIARA ASHLEY Eve Diane Pathologist: ALEX ODELL, MDDate of Procedure: 06/26/2020Date Received: 06/26/2020Date Reported 06/27/2020Submitting [...] 3.5 cm, located 1.0 cm from themargin. Harvesting Supervisor sections are submitted in 5 cassettes.AXQ/LMPSummary of Cassettes:Specimen Label SiteA 1 umbilical cord sections 2 membrane rolls 3 placental parenchyma, umbilical cord insertion site 4 placental parenchyma 5 placental parenchyma, lesionaxq/06/26/2020 MI-SDJCG-Blsec wn 2nd Fl Work Phone: Coronavirus 2019 RNA by PCR, Symptomaticon 06-25-2020 Coronavirus 2019 RNA by PCR, Symptomatic NOT DETECTED See Below RZ-EKNUH-Gtlqo wn 2nd Fl Work Phone: Comment on above: SOURCE: Nasal, [...] this test method. Fact sheet for providers: www.fda.gov/media/982324/downloadFact sheet for patients: www.fda.gov/media/810779/downloadThis test has received FDA Emergency Use Authorization (EUA) and has been verified by [facility] ([facility]). This test is only authorized for the duration of time that circumstances exist to justify the authorization of the emergency use of in vitro diagnostic tests for the detection of SARS-CoV-2 virus and/or diagnosis of COVID-19 infection under section 564(b)(1) of the Act, 21 U.S.C. 360bbb-3(b)(1), unless the authorization is terminated or revoked sooner. [facility] is certified under CLIA-88 as qualified to perform high complexity testing. Testing is performed in the [facility] laboratories located at [address] [place] [address]. Hematologyon 06-25-2020 ABO group Nom (Bld) A PV-GZKDN-Earkg wn 2nd Vt Work Phone: Blood group antibody screen Ql Negative BL-CVCZZ-Epgrp wn 2nd Fl Work Phone: Hematocrit (Bld) [Volume fraction] 34.7 % below low threshold See Below DE-ILWPX-Onpax wn 2nd Fl Work Phone: Comment on above: Reference Range: 36. 0 - 46.0 Hemoglobin (Bld) [Mass/Vol] 11.6 g/dL below low threshold See Below IE-DDLXL-Rqdzu wn 2nd Fl Work Phone: Comment on above: Reference Range: 12. 0 - 16.0 MCV (RBC) [Entitic vol] 90 fL 80 - 100 YD-WHGAX-Vwmkp wn 2nd Fl Work Phone: Platelets (Bld) [#/Vol] 268 {x10E9/L} 150 - 450 JZ-BZXYA-Zitnj wn 2nd Fl Work Phone: RBC (Bld) [#/Vol] 3.85 {x10E12/L} below low threshold See Below FZ-WQXXG-Micnl wn 2nd Fl Work Phone: Comment on above: Reference Range: 4.0 0 - 5.20 Rh immune globulin screen (Bld) [Interp] Positive SO-IRRMA-Tntvp wn 2nd Fl Work Phone: WBC (Bld) [#/Vol] 0.0 {/100_WBC} 0.0-0.0 MG- OBGYN-[address] Work Phone: WBC (Bld) [#/Vol] 15.5 {x10E9/L} above high threshold 4.4 - 11.3 VJ-JCJNP-Ncyvl wn 2nd Fl Work Phone: Otheron 06-25-2020 Erythrocyte distribution width (RBC) [Ratio] 14.4 % See Below ZY-ZPDID-Jtktz wn 2nd Fl Work Phone: Comment on above: Reference Range: 11. 5 - 14.5 MCHC (RBC) [Mass/Vol] 33.4 g/dL See Below DX-QDMKD-Qodxs wn 2nd Fl Work Phone: Comment on above: Reference Range: 32. 0 - 36.0 SYPHILIS SCREENING WITH REFL EXon 06-25-2020 T. pallidum IgG+IgM IA Ql (S) NONREACTIVE See Below BW-GZMAQ-Wrvvv wn 2nd Fl Work Phone: Comment on above: SOURCE: Reference Ra nge: NONREACTIVENo significant level of Treponema pallidum antibody detected. Repeat testing in 2 to 4 weeks may be considered if early infection or incubating syphilis infection is suspected. Imm/Pathon 06-07-2020 Bacteria identified Aer cx Nom (Genital specimen) PATIENT: KIARA ASHLEY LOCATION: C1009 BILL#: [id number] : 89 AGE: SEX: F ORDERED BY: PARAS GUEVARA: VAGINAL COLLECTED: 06/07/20 09:36ANTIBIOTICS AT [facility].: RECEIVED : 06/08/20 07:27SITE: VAGINAL R E S U L T S GROUP B STREP SCREEN PRELIM 06/09/20 08:35 CULTURE IN PROGRESS. MC-XAKGQ-XFW [address] [place] Work Phone: Bacteria identified Aer cx Nom (Genital specimen) PATIENT: KIARA ASHLYE LOCATION: [facility] [place] BILL#: [id number] : 89 AGE: SEX: F ORDERED BY: PARAS GUEVARA: VAGINAL COLLECTED: 06/07/20 09:36ANTIBIOTICS AT [place].: RECEIVED : 06/08/20 07:27SITE: VAGINAL R E S U L T S GROUP B STREP SCREEN FINAL 06/10/20 11:54 NEGATIVE FOR GROUP B BETA STREP. ST-UOANL-Wxuur wn 2nd Fl Work Phone: Otheron 06-07-2020 [...] growth-No malformations were identified on a limited survey-[facility] 06/22 The patient is [...] signed by: RILEY TREVIÑO 06/07/20 09:33 Normal TO-UYHMR-CBN [address] [place] Work Phone: Comment on above: ORDER REVISED TO A O B FOLLOW UP OR REPEAT SCAN BY RADIOLOGIST; Original Order Number: [id number] CBC AND DIFFERENTIALon 04-24 % AUTOMATED IMMATURE GRAN 1.9 % High 0.0 - 0.9 [facility] [place] Comment on above: Result Comment: Graciela ture Granulocyte Count (IG) includes promyelocytes, myelocytes and metamyelocytes but does not include bands. Percent differential counts (%) should be interpreted in the context of the absolute cell counts (cells/L). Performed By: #### C BCDF #### [address] [place] [address] Basophils (Bld) [#/Vol] 0.08 10*3/uL Normal 0.00 - 0.10 [facility] [place] Comment on above: Performed By: #### C BCDF #### [address] [place] [address] Basophils/100 WBC (Bld) 0.5 % Normal 0.0 - 2.0 [facility] [place] Comment on above: Performed By: #### C BCDF #### [address] [place] [address] Eosinophils (Bld) [#/Vol] 0.22 10*3/uL Normal 0.00 - 0.70 [facility] [place] Comment on above: Performed By: #### C BCDF #### [address] [place] [address] Eosinophils/100 WBC (Bld) 1.5 % Normal 0.0 - 6.0 [facility] [place] Comment on above: Performed By: #### C BCDF #### [address] [place] [address] Erythrocyte distribution width (RBC) [Ratio] 14.0 % Normal 11.5 - 14.5 [facility] [place] Comment on above: Performed By: #### C BCDF #### [address] [place] [address] Hematocrit (Bld) [Volume fraction] 35.6 % Low 36.0 - 46.0 [facility] [place] Comment on above: Performed By: #### C BCDF #### [address] [place] [address] Hemoglobin (Bld) [Mass/Vol] 11.8 g/dL Low 12.0 - 16.0 [facility] [place] Comment on above: Performed By: #### C BCDF #### [address] [place] [address] Lymphocytes (Bld) [#/Vol] 2.38 10*3/uL Normal 1.20 - 4.80 [facility] [place] Comment on above: Performed By: #### C BCDF #### [address] [place] [address] Lymphocytes/100 WBC (Bld) 16.0 % Normal 13.0 - 44.0 [facility] [place] Comment on above: Performed By: #### C BCDF #### [address] [place] [address] MCHC (RBC) [Mass/Vol] 33.1 g/dL Normal 32.0 - 36.0 [facility] [place] Comment on above: Performed By: #### C BCDF #### [address] [place] [address] MCV (RBC) [Entitic vol] 92 fL Normal 80 - 100 [facility] [place] Comment on above: Performed By: #### C BCDF #### [address] [place] [address] Monocytes (Bld) [#/Vol] 0.74 10*3/uL Normal 0.10 - 1.00 [facility] [place] Comment on above: Performed By: #### C BCDF #### [address] [place] [address] Monocytes/100 WBC (Bld) 5.0 % Normal 2.0 - 10.0 [facility] [place] Comment on above: Performed By: #### C BCDF #### [address] [place] [address] Neutrophils (Bld) [#/Vol] 11.17 10*3/uL High 1.20 - 7.70 [facility] [place] Comment on above: Performed By: #### C BCDF #### [address] [place] [address] Neutrophils/100 WBC (Bld) 75.1 % Normal 40.0 - 80.0 [facility] [place] Comment on above: Performed By: #### C BCDF #### [address] [place] [address] Platelets (Bld) [#/Vol] 285 10*3/uL Normal 150 - 450 [facility] [place] Comment on above: Performed By: #### C BCDF #### [address] [place] [address] RBC (Bld) [#/Vol] 3.89 x10E12/L Low 4.00 - 5.20 [facility] [place] Comment on above: Performed By: #### C BCDF #### [address] [place] [address] WBC (Bld) [#/Vol] 14.9 10*3/uL High 4.4 - 11.3 [facility] [place] Comment on above: Performed By: #### C BCDF #### [address] [place] [address] COMPREHENSIVE PANELon 2019 ALP [Catalytic activity/Vol] 79 U/L Normal 33 - 110 [facility] [place] Comment on above: Performed By: #### C MP #### [address] [place] [address] [place] [address] ALT [Catalytic activity/Vol] 7 U/L Normal 7 - 45 [facility] [place] Comment on above: Result Comment: Melida ents treated with Sulfasalazine may generate falsely decreased results for ALT. Performed By: #### C MP #### [address] [place] [address] [place] [address] AST [Catalytic activity/Vol] 13 U/L Normal 9 - 39 [facility] [place] Comment on above: Performed By: #### C MP #### [address] [place] [address] [place] [address] Bilirubin [Mass/Vol] 0.3 mg/dL Normal 0.0 - 1.2 [facility] [place] Comment on above: Performed By: #### C MP #### [address] [place] [address] [place] [address] Protein [Mass/Vol] 5.9 g/dL Low 6.4 - 8.2 [facility] [place] Comment on above: Performed By: #### C MP #### [address] [place] [address] [place] [address] Anion gap [Moles/Vol] 12 mmol/L Normal 10 - 20 [facility] [place] Comment on above: Performed By: #### C MP #### [address] [place] [address] [place] [address] Chloride [Moles/Vol] 106 mmol/L Normal 98 - 107 [facility] [place] Comment on above: Performed By: #### C MP #### [address] [place] [address] [place] [address] Potassium [Moles/Vol] 3.7 mmol/L Normal 3.5 - 5.3 [facility] [place] Comment on above: Performed By: #### C MP #### [address] [place] [address] [place] [address] Sodium [Moles/Vol] 137 mmol/L Normal 136 - 145 [facility] [place] Comment on above: Performed By: #### C MP #### [address] [place] [address] [place] [address] Calcium [Mass/Vol] 9.2 mg/dL Normal 8.6 - 10.3 [facility] [place] Comment on above: Performed By: #### C MP #### [address] [place] [address] [place] [address] Glucose [Mass/Vol] 95 mg/dL Normal 74 - 99 [facility] [place] Comment on above: Performed By: #### C MP #### [address] [place] [address] [place] [address] Urea nitrogen [Mass/Vol] 7 mg/dL Normal 6 - 23 [facility] [place] Comment on above: Performed By: #### C MP #### [address] [place] [address] [place] [address] Albumin [Mass/Vol] 3.4 g/dL Normal 3.4 - 5.0 [facility] [place] Comment on above: Performed By: #### C MP #### [address] [place] [address] [place] [address] Creatinine [Mass/Vol] 0.70 mg/dL Normal 0.50 - 1.05 [facility] [place] Comment on above: Performed By: #### C MP #### [address] [place] [address] [place] [address] GFR- AM. >60 Normal >60 [facility] [place] Comment on above: Result Comment: CALC ULATIONS OF ESTIMATED GFR ARE PERFORMED USING THE MDRD STUDY EQUATION FOR THE IDMS-TRACEABLE CREATININE METHODS. CLIN CHEM 2007;53:766-72 Performed By: #### C MP #### [address] [place] [address] [place] [address] GFR-NON AM. >60 Normal >60 [facility] [place] Comment on above: Performed By: #### C MP #### [address] [place] [address] [place] [address] HCO3 (Bld) [Moles/Vol] 23 mmol/L Normal 21 - 32 [facility] [place] Comment on above: Performed By: #### C MP #### [address] [place] [address] [place] [address] FERRITINon 04-24-2020 Ferritin [Mass/Vol] 8 ug/L Normal 8 - 150 [facility] [place] Comment on above: Performed By: #### F ERRI #### [address] [place] [address] IRON + TIBCon 04-24-2020 % SATURATION 14 % Low 25 - 45 [facility] [place] Comment on above: Performed By: #### I RONT #### [address] [place] [address] Iron [Mass/Vol] 65 ug/dL Normal 35 - 150 [facility] [place] Comment on above: Performed By: #### I RONT #### [address] [place] [address] TIBC 449 ug/dL High 240 - 445 [facility] [place] Comment on above: Performed By: #### I RONT #### [facility] [address] [address] [place] [address] Complete Blood Count + Diffcharo tran 12-25-2019 Basophils/100 WBC (Bld) 1.0 % 0.0 - 2.0 YA-AUCFO-BAA [address] [place] Work Phone: Eosinophils (Bld) [#/Vol] 0.37 {x10E9/L} See Below MG-MLQQG-NEW [address] [place] Work Phone: Comment on above: Reference Range: 0.0 0 - 0.70 Eosinophils/100 WBC (Bld) 3.0 % 0.0 - 6.0 YZ-BAHEU-XEN [address] [place] Work Phone: Erythrocyte distribution width (RBC) [Ratio] 13.4 % See Below ID-EDHRM-ZSS 1200 [place] Work Phone: Comment on above: Reference Range: 11. 5 - 14.5 Hematocrit (Bld) [Volume fraction] 41.8 % See Below JO-DFADQ-OTF 1200 [place] Work Phone: Comment on above: Reference Range: 36. 0 - 46.0 Hemoglobin (Bld) [Mass/Vol] 13.6 g/dL See Below AC-TVAWI-GWB [address] [place] Work Phone: Comment on above: Reference Range: 12. 0 - 16.0 Lymphocytes (Bld) [#/Vol] 2.52 {x10E9/L} See Below CQ-ZOHYI-YYD [address] [place] Work Phone: Comment on above: Reference Range: 1.2 0 - 4.80 Lymphocytes/100 WBC (Bld) 20.2 % See Below YA-LPICW-UEL [address] [place] Work Phone: Comment on above: Reference Range: 13. 0 - 44.0 MCHC (RBC) [Mass/Vol] 32.5 g/dL See Below LL-CHZOI-LLY [address] [place] Work Phone: Comment on above: Reference Range: 32. 0 - 36.0 MCV (RBC) [Entitic vol] 95 fL 80 - 100 AR-JEEVB-ODN 1200 [place] Work Phone: Monocytes (Bld) [#/Vol] 0.58 {x10E9/L} See Below PR-BSDSB-CRD 1200 [place] Work Phone: Comment on above: Reference Range: 0.1 0 - 1.00 Monocytes/100 WBC (Bld) 4.6 % 2.0 - 10.0 QP-EZRDQ-HFD 1200 [place] Work Phone: Neutrophils/100 WBC (Bld) 70.6 % See Below PQ-ALREA-YMC [address] [place] Work Phone: Comment on above: Reference Range: 40. 0 - 80.0 Platelets (Bld) [#/Vol] 372 {x10E9/L} 150 - 450 GR-LYAIL-FPA [address] [place] Work Phone: RBC (Bld) [#/Vol] 4.40 {x10E12/L} See Below MG -OBGYN-MAC 1200 [place] Work Phone: Comment on above: Reference Range: 4.0 0 - 5.20 WBC (Bld) [#/Vol] 0.0 {/100_WBC} 0.0-0.0 MG- OBGYN-MAC 1200 [place] Work Phone: WBC (Bld) [#/Vol] 12.7 {x10E9/L} above high threshold 4.4 - 11.3 NE-WNLHH-ZUX 1200 [place] Work Phone: Comment on above: SOURCE: Complete Blood Count + Differential 8.81 {x10E9/L} above high threshold See Below NU-PPWIJ-AVV 1200 [place] Work Phone: Comment on above: Reference Range: 1.2 0 - 7.70 Complete Blood Count + Differential 0.6 % 0.0 - 0.9 KJ-ADHOI-GAR [address] [place] Work Phone: Comment on above: Percent differential counts (%) should be interpreted in the context of the absolute cell counts (cells/L). Complete Blood Count + Differential 0.13 {x10E9/L} above high threshold See Below IY-XKAJP-IBE 1200 [place] Work Phone: Comment on above: Reference Range: 0.0 0 - 0.10 Cult, Urineon 12-25-2019 Bacteria identified Cx Nom (U) PATIENT: KIARA ASHLEY [place]ATION[place] [facility] [place] BILL#: [id number] : 89 AGE: SEX: F ORDERED BY: PARAS GUEVARA: URINE COLLECTED: 12/25/19 09:41ANTIBIOTICS AT [place].: RECEIVED : 12/25/19 17:06SITE: Clean Catch/Voided R E S U L T S URINE CULTURE,BACTERIAL FINAL 12/26/19 10:21 NO SIGNIFICANT GROWTH. FT-BCZCZ-PNX 1200 [place] Work Phone: Hematologyon 12-25-2019 ABO group Nom (Bld) A CQ-GSITC-OMO 1200 [place] Work Phone: Blood group antibody screen Ql Negative YK-WKNHV-FFP 1200 [place] Work Phone: Rh immune globulin screen (Bld) [Interp] Positive PL-QXUGK-PVP 1200 [place] Work Phone: Hepatitis B Surface Antigeno n 12-25-2019 Hepatitis B Surface Antigen NONREACTIVE See Below LX-XSUKA-MBG 1200 [place] Work Phone: Comment on above: [...] Hepatitis C Antibody Test NON-REACTIVE See Below PE-LCKDX-LOP 1200 [place] Work Phone: Comment on above: SOURCE: Reference Ra nge: NONREACTIVE Patients receiving more than 5 mg/day of biotin may have interference in test results. A sample should be taken no sooner than eight hours after previous dose. Contact the testing laboratory for additional information. Metabolic Panelon 12-25-2019 ALP [Catalytic activity/Vol] 67 U/L 33 - 110 QD-NLXWD-LSH 1200 [place] Work Phone: Anion gap [Moles/Vol] 15 mmol/L 10 - 20 FH-TKRMT-QIN 1200 [place] Work Phone: Bilirubin [Mass/Vol] 0.3 mg/dL 0.0 - 1.2 HV-FLFJK-SPM 1200 [place] Work Phone: Calcium [Mass/Vol] 9.6 mg/dL 8.6 - 10.6 LU-CTBSL-SPU 1200 [place] Work Phone: Chloride [Moles/Vol] 104 mmol/L 98 - 107 XW-KQYZX-ESY 1200 [place] Work Phone: CO2 [Moles/Vol] 21 mmol/L 21 - 32 MG-OBGYN- MAC 1200 [place] Work Phone: Creatinine [Mass/Vol] 0.69 mg/dL See Below AM-KVIGD-MTP 1200 [place] Work Phone: Comment on above: Reference Range: 0.5 0 - 1.05 Glucose [Mass/Vol] 83 mg/dL 74 - 99 VK-OQPRK-YYC 1200 [place] Work Phone: Comment on above: SOURCE: Potassium [Moles/Vol] 4.1 mmol/L 3.5 - 5.3 RT-EJLPG-COG 1200 [place] Work Phone: Protein [Mass/Vol] 6.2 g/dL below low threshold 6.4 - 8.2 HH-ZBVVK-SYZ 1200 [place] Work Phone: Sodium [Moles/Vol] 136 mmol/L 136 - 145 ZE-LNSYY-VWM 1200 [place] Work Phone: Urea nitrogen [Mass/Vol] 9 mg/dL 6 - 23 ED-AHIAV-AGW 1200 [place] Work Phone: Otheron 12-25-2019 Albumin BCP dye [Mass/Vol] 3.9 g/dL 3.4 - 5.0 WD-ITSHH-GTY 1200 [place] Work Phone: ALT With P-5'-P [Catalytic activity/Vol] 8 U/L 7 - 45 FM-LEYRQ-VIX 1200 [place] Work Phone: Comment on above: Patients treated wit h Sulfasalazine may generate falsely decreased results for ALT. AST With P-5'-P [Catalytic activity/Vol] 11 U/L 9 - 39 ZF-QZXXQ-KBJ 1200 [place] Work Phone: NONE BB-DIKUL-VJI 1200 [place] Work Phone: >60 >60 IN-JOVIA-OMZ 1200 [place] Work Phone: Comment on above: CALCULATIONS OF MARÍA MATED GFR ARE PERFORMED USING THE MDRD STUDY EQUATION FOR THE IDMS-TRACEABLE CREATININE METHODS. CLIN CHEM 2007;53:766-72 SYPHILIS SCREENING WITH REFL EXon 12-25-2019 T. pallidum IgG+IgM IA Ql (S) NONREACTIVE See Below MB-EQZPJ-IWQ 1200 [place] Work Phone: Comment on above: SOURCE: Reference Ra nge: NONREACTIVENo significant level of Treponema pallidum antibody detected. Repeat testing in 2 to 4 weeks may be considered if early infection or incubating syphilis infection is suspected. CBC AND DIFFERENTIALon 11-21 % AUTOMATED IMMATURE GRAN 0.9 % Normal 0.0 - 0.9 [facility] [place] Comment on above: Result Comment: Perc ent differential counts (%) should be interpreted in the context of the absolute cell counts (cells/L). Performed By: #### C BCDF #### [facility] [address] [place] [address] Basophils (Bld) [#/Vol] 0.16 10*3/uL High 0.00 - 0.10 [facility] [place] Comment on above: Performed By: #### C BCDF #### [address] [place] [address] Basophils/100 WBC (Bld) 1.2 % Normal 0.0 - 2.0 [facility] [place] Comment on above: Performed By: #### C BCDF #### [address] [place] [address] Eosinophils (Bld) [#/Vol] 0.80 10*3/uL High 0.00 - 0.70 [facility] [place] Comment on above: Performed By: #### C BCDF #### [address] [place] [address] Eosinophils/100 WBC (Bld) 5.8 % Normal 0.0 - 6.0 [facility] [place] Comment on above: Performed By: #### C BCDF #### [address] [place] [address] Erythrocyte distribution width (RBC) [Ratio] 13.6 % Normal 11.5 - 14.5 [facility] [place] Comment on above: Performed By: #### C BCDF #### [address] [place] [address] Hematocrit (Bld) [Volume fraction] 39.4 % Normal 36.0 - 46.0 [facility] [place] Comment on above: Performed By: #### C BCDF #### [address] [place] [address] Hemoglobin (Bld) [Mass/Vol] 13.0 g/dL Normal 12.0 - 16.0 [facility] Comment on above: Performed By: #### C BCDF #### [address] [place] [address] Lymphocytes (Bld) [#/Vol] 2.24 10*3/uL Normal 1.20 - 4.80 [facility] [place] Comment on above: Performed By: #### C BCDF #### [address] [place] [address] Lymphocytes/100 WBC (Bld) 16.3 % Normal 13.0 - 44.0 [facility] [place] Comment on above: Performed By: #### C BCDF #### [address] [place] [address] MCHC (RBC) [Mass/Vol] 33.0 g/dL Normal 32.0 - 36.0 [facility] [place] Comment on above: Performed By: #### C BCDF #### [address] [place] [address] MCV (RBC) [Entitic vol] 94 fL Normal 80 - 100 [facility] [place] Comment on above: Performed By: #### C BCDF #### [address] [place] [address] Monocytes (Bld) [#/Vol] 0.83 10*3/uL Normal 0.10 - 1.00 [facility] [place] Comment on above: Performed By: #### C BCDF #### [address] [place] [address] Monocytes/100 WBC (Bld) 6.0 % Normal 2.0 - 10.0 [facility] [place] Comment on above: Performed By: #### C BCDF #### [address] [place] [address] Neutrophils (Bld) [#/Vol] 9.60 10*3/uL High 1.20 - 7.70 [facility] [place] Comment on above: Performed By: #### C BCDF #### [address] [place] [address] Neutrophils/100 WBC (Bld) 69.8 % Normal 40.0 - 80.0 [facility] [place] Comment on above: Performed By: #### C BCDF #### [address] [place] [address] Platelets (Bld) [#/Vol] 380 10*3/uL Normal 150 - 450 [facility] [place] Comment on above: Performed By: #### C BCDF #### [address] [place] [address] RBC (Bld) [#/Vol] 4.21 x10E12/L Normal 4.00 - 5.20 [facility] [place] Comment on above: Performed By: #### C BCDF #### [address] [place] [address] WBC (Bld) [#/Vol] 13.8 10*3/uL High 4.4 - 11.3 [facility] Comment on above: Performed By: #### C BCDF #### [address] [place] [address] Complete Blood Count + Diffe rentialon 11-14-2019 Basophils (Bld) [#/Vol] 0.05 {x10E9/L} See [facility] Work [facility]: Comment on above: Reference Range: 0.0 0 - 0.10 Basophils/100 WBC (Bld) 0.4 % 0.0 - 2.0 MP-Reproductiv e [facility] Work Phone: Eosinophils (Bld) [#/Vol] 0.89 {x10E9/L} above high threshold See Below -Reproductiv e Endocrinology- [place] Work Phone: Comment on above: Reference Range: 0.0 0 - 0.70 Eosinophils/100 WBC (Bld) 7.3 % 0.0 - 6.0 MP-Reproductiv e Endocrinology- [place] Work Phone: Erythrocyte distribution width (RBC) [Ratio] 13.9 % See Below MP-Reproductiv e Endocrinology- [place] Work Phone: Comment on above: Reference Range: 11. 5 - 14.5 Hematocrit (Bld) [Volume fraction] 39.4 % See Below MP-Reproductiv e Endocrinology- [place] Work Phone: Comment on above: Reference Range: 36. 0 - 46.0 Hemoglobin (Bld) [Mass/Vol] 12.8 g/dL See Below MP-Reproductiv e Endocrinology- [place] Work Phone: Comment on above: Reference Range: 12. 0 - 16.0 Lymphocytes (Bld) [#/Vol] 2.13 {x10E9/L} See Below MP-Reproductiv e Endocrinology- [place] Work Phone: Comment on above: Reference Range: 1.2 0 - 4.80 Lymphocytes/100 WBC (Bld) 17.5 % See Below MP-Reproductiv e Endocrinology- [place] [address] Work Phone: Comment on above: Reference Range: 13. 0 - 44.0 MCHC (RBC) [Mass/Vol] 32.5 g/dL See Below MP-Reproductiv e Endocrinology- [place] 206 Work Phone: Comment on above: Reference Range: 32. 0 - 36.0 MCV (RBC) [Entitic vol] 95 fL 80 - 100 MP-Reproductiv e Endocrinology- [place] 206 Work Phone: Monocytes (Bld) [#/Vol] 0.60 {x10E9/L} See Below MP-Reproductiv e Endocrinology- [place] Work Phone: Comment on above: Reference Range: 0.1 0 - 1.00 Monocytes/100 WBC (Bld) 4.9 % 2.0 - 10.0 MP-Reproductiv e Endocrinology- [place] Work Phone: Neutrophils/100 WBC (Bld) 69.4 % See Below MP-Reproductiv e Endocrinology- [place] Work Phone: Comment on above: Reference Range: [...] 0.0 {/100_WBC} 0.0-0.0 MP- Reproductiv e Endocrinology- [place] Work Phone: Complete Blood Count + Differential 0.5 % 0.0 - 0.9 MP-Reproductiv e Endocrinology- [place] Work Phone: Comment on above: Percent differential counts (%) should be interpreted in the context of the absolute cell counts (cells/L). Complete Blood Count + Differential 8.42 {x10E9/L} above high threshold See Below MP-Reproductiv e Endocrinology- [place] Work Phone: Comment on above: Reference Range: 1.2 0 - 7.70 Metabolic Panelon 11-14-2019 ALP [Catalytic activity/Vol] 82 U/L 33 - 110 MP-Reproductiv e Endocrinology- [place] Work Phone: Anion gap [Moles/Vol] 19 mmol/L 10 - 20 MP-Reproductiv e Endocrinology- [place] Work Phone: Bilirubin [Mass/Vol] 0.4 mg/dL 0.0 - 1.2 MP-Reproductiv e Endocrinology- [place] Work Phone: Calcium [Mass/Vol] 9.5 mg/dL 8.6 - 10.6 MP-Reproductiv e Endocrinology- [place] Work Phone: Chloride [Moles/Vol] 100 mmol/L 98 - 107 MP-Reproductiv e Endocrinology- [place] Work Phone: CO2 [Moles/Vol] 20 mmol/L below low threshold 21 - 32 MP-Reproductiv e Endocrinology- [place] Work Phone: Creatinine [Mass/Vol] 0.80 mg/dL See Below MP-Reproductiv e [facility]ocr[facility]- [place] Work Phone: Comment on above: Reference Range: 0.5 0 - 1.05 Glucose [Mass/Vol] 86 mg/dL 74 - 99 MP-Reproductiv e [facility] Work Phone: Potassium [Moles/Vol] 4.3 mmol/L 3.5 - 5.3 MP-Reproductiv e [facility] Work Phone: Protein [Mass/Vol] 5.8 g/dL below low threshold 6.4 - 8.2 [facility] Sodium [Moles/Vol] 135 mmol/L below low threshold 136 - 145 MP-Reproductiv e [facility] Work Phone: Urea nitrogen [Mass/Vol] 10 mg/dL 6 - 23 MP-Reproductiv e [facility] Work Phone: Otheron 11-14-2019 Albumin BCP dye [Mass/Vol] 3.5 g/dL 3.4 - 5.0 MP-Reproductiv [facility] Work Phone: ALT With P-5'-P [Catalytic activity/Vol] 17 U/L 7 - 45 MP-Reproductiv [facility] Work Phone: Comment on above: Patients treated wit h Sulfasalazine may generate falsely decreased results for ALT. AST With P-5'-P [Catalytic activity/Vol] 22 U/L 9 - 39 MP-Reproductiv [facility] Work Phone: >60 >60 MP-Reproductiv [facility] Work Phone: Comment on above: CALCULATIONS OF MARÍA MATED GFR ARE PERFORMED USING THE MDRD STUDY EQUATION FOR THE IDMS-TRACEABLE CREATININE METHODS. CLIN CHEM 2007;53:766-72 CBCon 11-09-2019 Erythrocyte distribution width (RBC) [Ratio] 13.7 % See Below ME-TGVHB-Gngsd n 310 IVF Work Phone: Comment on above: Performed By: #### L H #### [facility] [address] [place] [address] Reference Range: 11. 5 - 14.5 Hematocrit (Bld) [Volume fraction] 41.9 % See Below ZM-STXNU-Omhnq n 310 IVF Work Phone: Comment on above: Performed By: #### L H #### [facility] [address] [place] [address] Reference Range: 36. 0 - 46.0 Hemoglobin (Bld) [Mass/Vol] 14.0 g/dL See Below SN-BEQKX-Fvtgh n 310 IVF Work Phone: Comment on above: Performed By: #### L H #### [facility] [address] [place] [address] Reference Range: 12. 0 - 16.0 MCHC (RBC) [Mass/Vol] 33.4 g/dL See Below MJ-XIUER-Xgrgi n 310 IVF Work Phone: Comment on above: Performed By: #### L H #### [facility] [address] [place] [address] Reference Range: 32. 0 - 36.0 MCV (RBC) [Entitic vol] 94 fL 80 - 100 OC-XOQLK-Zvmns n 310 IVF Work Phone: Comment on above: Performed By: #### L H #### [facility] [address] [place] [id number] Platelets (Bld) [#/Vol] 411 10*3/uL Normal 150 - 450 [facility] Comment on above: Performed By: #### L H #### [facility] [address] [place] [id number] RBC (Bld) [#/Vol] 4.44 x10E12/L Normal 4.00 - 5.20 [facility] Comment on above: Performed By: #### L H #### [facility] [address] [place] [address] WBC (Bld) [#/Vol] 12.4 10*3/uL High 4.4 - 11.3 [facility] Comment on above: Performed By: #### L H #### [facility] [address] [place] [id number] COMPREHENSIVE PANELon 2018 Albumin [Mass/Vol] 3.8 g/dL Normal 3.4 - 5.0 [facility] Comment on above: Performed By: #### L H #### [facility] [address] [place] [id number] ALP [Catalytic activity/Vol] 51 U/L 33 - 110 NZ-PBGUT-Cvrnw n 310 IVF Work Phone: Comment on above: Performed By: #### L H #### [facility] [address] [place] [id number] ALT [Catalytic activity/Vol] 12 U/L Normal 7 - 45 [facility] Comment on above: Result Comment: Melida ents treated with Sulfasalazine may generate falsely decreased results for ALT. Performed By: #### L H #### [facility] [address] [place] [id number] Anion gap [Moles/Vol] 13 mmol/L 10 - 20 NY-MCSCL-Mwixg n 310 IVF Work Phone: Comment on above: Performed By: #### L H #### [facility] [address] [place] [id number] AST [Catalytic activity/Vol] 12 U/L Normal 9 - 39 [facility] Comment on above: Performed By: #### L H #### [facility] [address] [place] [id number] Bilirubin [Mass/Vol] 0.4 mg/dL 0.0 - 1.2 VR-RTYZN-Chmno n 310 IVF Work Phone: Comment on above: Performed By: #### L H #### [facility] [address] [place] [id number] Calcium [Mass/Vol] 9.3 mg/dL 8.6 - 10.3 NE-JIJMV-Xondz n 310 IVF Work Phone: Comment on above: Performed By: #### L H #### [facility] [address] [place] [id number] Chloride [Moles/Vol] 102 mmol/L 98 - 107 HS-QRQOS-Saxzu n 310 IVF Work Phone: Comment on above: Performed By: #### L H #### [facility] [address] [place] [id number] Creatinine [Mass/Vol] 0.89 mg/dL See Below LR-CMCGK-Kkavq n 310 IVF Work Phone: Comment on above: Performed By: #### L H #### [facility] [address] [place] [id number] Reference Range: 0.5 0 - 1.05 GFR- AM. >60 Normal >60 [facility] Comment on above: Result Comment: CALC ULATIONS OF ESTIMATED GFR ARE PERFORMED USING THE MDRD STUDY EQUATION FOR THE IDMS-TRACEABLE CREATININE METHODS. CLIN CHEM 2007;53:766-72 Performed By: #### L H #### [facility] [address] [place] [id number] GFR-NON AM. >60 Normal >60 [facility] Comment on above: Performed By: #### L H #### [facility] [address] [place] [id number] Glucose [Mass/Vol] 74 mg/dL 74 - 99 DV-WQUNT-Cosgl n 310 IVF Work Phone: Comment on above: Performed By: #### L H #### [facility] [address] [place] [id number] HCO3 (Bld) [Moles/Vol] 25 mmol/L Normal 21 - 32 [facility] Comment on above: Performed By: #### L H #### [facility] [address] [place] [id number] Potassium [Moles/Vol] 4.1 mmol/L 3.5 - 5.3 RN-LLLRB-Gepbs n 310 IVF Work Phone: Comment on above: Performed By: #### L H #### [facility] [address] [place] [address] Protein [Mass/Vol] 6.0 g/dL below low threshold 6.4 - 8.2 MS-BXRKA-Quyfr n 310 IVF Work Phone: Comment on above: Performed By: #### L H #### [facility] [address] [place] [id number] Sodium [Moles/Vol] 136 mmol/L 136 - 145 ZQ-LMPOT-Bukda n 310 IVF Work Phone: Comment on above: Performed By: #### L H #### [facility] [address] [place] [id number] Urea nitrogen [Mass/Vol] 11 mg/dL 6 - 23 JW-ZTTPV-Dufot n 310 IVF Work Phone: Comment on above: Performed By: #### L H #### [facility] [address] [place] [id number] HCG, Beta Quantitativeon HCG.beta subunit Qn 7102 {mIU/mL} Abnormal BD-ZDQTG-Kwzyf n 310 IVF Work Phone: Comment on [...] HCG measurement is performed using the [employer] [place] Access Immunoassay which detects intact HCG and free beta HCG subunit. This test is not indicated for use as a tumor marker. HCG testing is performed using a different test methodology at [facility] than other [facility]. Direct result comparison should only be made within the same method. REF VALUESNON FEMALE <5MALES <5 HCG,BETA-QUANTITATIVEon 12-2 HCG,BETA-QUANTITA TIVE 7102 mIU/mL [facility] Comment on above: Result Comment: Low- level [...] HCG measurement is performed using the [employer] [place] Access Immunoassay which detects intact HCG and free beta HCG subunit. This test is not indicated for use as a tumor marker. HCG testing is performed using a different test methodology at [facility] than other [facility]. Direct result comparison should only be made within the same method. REF VALUES NON FEMALE <5 MALES <5 Performed By: #### L H #### [facility] [address] [place] [address] Hematologyon 11-09-2019 Platelets (Bld) [#/Vol] 411 {x10E9/L} 150 - 450 PB-JQPDX-Onfmc n 310 IVF Work Phone: RBC (Bld) [#/Vol] 4.44 {x10E12/L} See Below MG -OBGYN-Risma n 310 IVF Work Phone: Comment on above: Reference Range: 4.0 0 - 5.20 WBC (Bld) [#/Vol] 12.4 {x10E9/L} above high threshold 4.4 - 11.3 KF-XJOKA-Cfgma n 310 IVF Work Phone: Metabolic Panelon 11-09-2019 CO2 [Moles/Vol] 25 mmol/L 21 - 32 MG-OBGYN- Risma n 310 IVF Work Phone: Otheron 11-09-2019 Albumin BCP dye [Mass/Vol] 3.8 g/dL 3.4 - 5.0 JL-ELJPY-Xbocw n 310 IVF Work Phone: ALT With P-5'-P [Catalytic activity/Vol] 12 U/L 7 - 45 BH-UTPIN-Bdhat n 310 IVF Work Phone: Comment on above: Patients treated wit h Sulfasalazine may generate falsely decreased results for ALT. AST With P-5'-P [Catalytic activity/Vol] 12 U/L 9 - 39 LG-QAOYH-Asptp n 310 IVF Work Phone: >60 >60 QF-MBRGN-Ifvwa n 310 IVF Work Phone: Comment on [...] HCG measurement is performed using the [email or web address] Access Immunoassay which detects intact HCG and free beta HCG subunit. This test is not indicated for use as a tumor marker. HCG testing is performed using a different test methodology at [facility] than other [facility]. Direct result comparison should only be made within the same method. REF VALUESNON FEMALE <5MALES <5 HCG,BETA-QUANTITATIVEon 10-15 HCG,BETA-QUANTITA TIVE 240 mIU/mL [facility] Comment on above: Result Comment: Low- level [...] HCG measurement is performed using the [employer] [place] Access Immunoassay which detects intact HCG and free beta HCG subunit. This test is not indicated for use as a tumor marker. HCG testing is performed using a different test methodology at [facility] than other [facility]. Direct result comparison should only be made within the same method. REF VALUES NON FEMALE <5 MALES <5 Performed By: #### E STRA #### [facility] [address] [place] [address] ESTRADIOLon 10-14-2019 ESTRADIOL 1871 pg/mL Normal [facility] Comment on above: Result Comment: Estr adiol measurement is performed using the [employer] [place] Access Immunoassay. Estradiol testing is performed using a different test methodology at [facility] than other [facility]. Direct result comparison should only be made within the same method. REF VALUES FOLLICULAR PHASE 20-144 MID CYCLE 64-357 LUTEAL PHASE 56-214 POSTMENOPAUSE < 32 PREPUBERTY < 20 MALE 10-18Y < 20 ADULT MALE < 40 Performed By: #### E STRA #### [facility] [address] [place] [address] Estradiol, Serumon 9 E2 [Mass/Vol] 1871 pg/mL MG-OBGYN-Ri sma n 310 IVF Work Phone: Comment on above: Estradiol measuremen t is performed using the [employer] Access Immunoassay. Estradiol testing is performed using a different test methodology at [facility] than other [facility]. Direct result comparison should only be made within the same method.REF VALUESFOLLICULAR PHASE 20-144MID CYCLE 64-357LUTEAL PHASE 56-214POSTMENOPAUSE < 32PREPUBERTY < 20MALE 10-18Y < 20ADULT MALE < 40 PROGESTERONEon 10-14-2019 PROGESTERONE 1.0 ng/mL Normal [facility] Comment on above: Result Comment: Prog esterone is performed using the [employer] [place] Access Immunoassay. Progesterone testing is performed using a different test methodology at [facility] than other [facility]. Direct result comparison should only be made within the same method. REF VALUES MALE <0.2-0.8 FOLLICULAR PHASE <0.2-1.5 LUTEAL PHASE 7.4-15.4 POSTMENOPAUSAL <0.2-0.2 1ST TRIMESTER 12.0-84.0 2ND TRIMESTER 10.2-58.8 3RD TRIMESTER 46.5-160 Performed By: #### E STRA #### [facility] [address] [place] [address] Progesterone, Serumon 2018 Progesterone [Mass/Vol] 1.0 ng/mL KM-LPDDS-Ywdng n 310 IVF Work Phone: Comment on above: Progesterone is perf ormed using the [employer] [place] Access Immunoassay. Progesterone testing is performed using a different test methodology at [facility] than other [facility]. Direct result comparison should only be made within the same method.REF VALUESMALE <0.2-0.8 FOLLICULAR PHASE <0.2-1.5 LUTEAL PHASE 7.4-15.4 POSTMENOPAUSAL <0.2-0.2 1ST TRIMESTER 12.0-84.0 2ND TRIMESTER 10.2-58.8 3RD TRIMESTER 46.5-160 ESTRADIOLon 10-11-2019 ESTRADIOL 284 pg/mL Normal [facility] Comment on above: Result Comment: Estr adiol measurement is performed using the [employer] [place] Access Immunoassay. Estradiol testing is performed using a different test methodology at [facility] than [facility]. Direct result comparison should only be made within the same method. REF VALUES FOLLICULAR PHASE 20-144 MID CYCLE 64-357 LUTEAL PHASE 56-214 POSTMENOPAUSE < 32 PREPUBERTY < 20 MALE 10-18Y < 20 ADULT MALE < 40 Performed By: #### E STRA #### [facility] [address] [place] [address] Estradiol, Serumon 9 E2 [Mass/Vol] 284 pg/mL MG-OBGYN-Ri sma n 310 IVF Work Phone: Comment on above: Estradiol measuremen t is performed using the [employer] [place] Access Immunoassay. Estradiol testing is performed using a different test methodology at [facility] than [facility]. Direct result comparison should only be made within the same method.REF VALUESFOLLICULAR PHASE 20-144MID CYCLE 64-357LUTEAL PHASE 56-214POSTMENOPAUSE < 32PREPUBERTY < 20MALE 10-18Y < 20ADULT MALE < 40 ESTRADIOLon 10-05-2019 ESTRADIOL 129 pg/mL Normal [facility] Comment on above: Result Comment: Estr adiol measurement is performed using the [employer] [place] Access Immunoassay. Estradiol testing is performed using a different test methodology at [facility] than other [facility]. Direct result comparison should only be made within the same method. REF VALUES FOLLICULAR PHASE 20-144 MID CYCLE 64-357 LUTEAL PHASE 56-214 POSTMENOPAUSE < 32 PREPUBERTY < 20 MALE 10-18Y < 20 ADULT MALE < 40 Performed By: #### E STRA #### [facility] [address] [place] [address] Estradiol, Serumon 9 E2 [Mass/Vol] 129 pg/mL MG-OBGYN-Ri sma n 310 IVF Work Phone: Comment on above: Estradiol measuremen t is performed using the [employer] [place] Access Immunoassay. Estradiol testing is performed using a different test methodology at [facility] than other [facility]. Direct result comparison should only be made within the same method.REF VALUESFOLLICULAR PHASE 20-144MID CYCLE 64-357LUTEAL PHASE 56-214POSTMENOPAUSE < 32PREPUBERTY < 20MALE 10-18Y < 20ADULT MALE < 40 PROGESTERONEon 10-05-2019 PROGESTERONE 0.2 ng/mL Normal [facility] Comment on above: Result Comment: Prog esterone is performed using the [employer] Access Immunoassay. Progesterone testing is performed using a different test methodology at [facility] than other [facility]. Direct result comparison should only be made within the same method. REF VALUES MALE <0.2-0.8 FOLLICULAR PHASE <0.2-1.5 LUTEAL PHASE 7.4-15.4 POSTMENOPAUSAL <0.2-0.2 1ST TRIMESTER 12.0-84.0 2ND TRIMESTER 10.2-58.8 3RD TRIMESTER 46.5-160 Performed By: #### E BARBARA #### [facility] [address] [place] [address] Progesterone, Serumon 2018 Progesterone [Mass/Vol] 0.2 ng/mL WH-YBFKW-Khkgv n 310 IVF Work Phone: Comment on above: Progesterone is perf ormed using the [employer] Access Immunoassay. Progesterone testing is performed using a different test methodology at [facility] than other [facility]. Direct result comparison should only be made within the same method.REF VALUESMALE <0.2-0.8 FOLLICULAR PHASE <0.2-1.5 LUTEAL PHASE 7.4-15.4 POSTMENOPAUSAL <0.2-0.2 1ST TRIMESTER 12.0-84.0 2ND TRIMESTER 10.2-58.8 3RD TRIMESTER 46.5-160 ESTRADIOLon 10-02-2019 ESTRADIOL 357 pg/mL Normal [facility] Comment on above: Result Comment: Estr adiol measurement is performed using the [employer] Access Immunoassay. Estradiol testing is performed using a different test methodology at [facility] than other [facility]. Direct result comparison should only be made within the same method. REF VALUES FOLLICULAR PHASE 20-144 MID CYCLE 64-357 LUTEAL PHASE 56-214 POSTMENOPAUSE < 32 PREPUBERTY < 20 MALE 10-18Y < 20 ADULT MALE < 40 Performed By: #### E STRA #### [facility] [address] [place] [address] Estradiol, Serumon 9 E2 [Mass/Vol] 357 pg/mL MG-OBGYN-Cr ock er 206A IVF Work Phone: Comment on above: Estradiol measuremen t is performed using the [employer] Access Immunoassay. Estradiol testing is performed using a different test methodology at [facility] than other [facility]. Direct result comparison should only be made within the same method.REF VALUESFOLLICULAR PHASE 20-144MID CYCLE 64-357LUTEAL PHASE 56-214POSTMENOPAUSE < 32PREPUBERTY < 20MALE 10-18Y < 20ADULT MALE < 40 LUTEINIZING HORMONEon 2018 LUTEINIZING HORMONE 14.7 IU/L Normal [facility] Comment on above: Result Comment: Lute inizing Hormone [LH] is performed using the [employer] [place] Access Immunoassay. LH testing is performed using a different test methodology at [facility] than other [facility]. Direct result comparison should only be made within the same method. REF VALUES FOLLICULAR PHASE 1.5-10.0 MID-CYCLE 13.0-72.0 LUTEAL PHASE 0.5-13.0 MENOPAUSE 15.0-65.0 PREPUBERTY 0- 3.0 CHILDREN 0- 6.0 ADULT MALE 1.0- 9.0 Performed By: #### E STRA #### [facility] [address] [place] [address] Luteinizing Hormone, Serumon 10-02-2019 Lutropin Qn 14.7 {IU/L} EL-XWXOB-Abb ck er 206A IVF Work Phone: Comment on above: Luteinizing Hormone [LH] is performed using the [email or web address] Access Immunoassay. LH testing is performed using a different test methodology at [facility] than other [facility]. Direct result comparison should only be made within the same method.REF VALUESFOLLICULAR PHASE 1.5-10.0MID-CYCLE 13.0-72.0LUTEAL PHASE 0.5-13.0MENOPAUSE 15.0-65.0PREPUBERTY 0- 3.0CHILDREN 0- 6.0ADULT MALE 1.0- 9.0 PROGESTERONEon 10-02-2019 PROGESTERONE 0.1 ng/mL Normal [facility] Comment on above: Result Comment: Prog esterone is performed using the [employer] [place] Access Immunoassay. Progesterone testing is performed using a different test methodology at [facility] than other [facility]. Direct result comparison should only be made within the same method. REF VALUES MALE <0.2-0.8 FOLLICULAR PHASE <0.2-1.5 LUTEAL PHASE 7.4-15.4 POSTMENOPAUSAL <0.2-0.2 1ST TRIMESTER 12.0-84.0 2ND TRIMESTER 10.2-58.8 3RD TRIMESTER 46.5-160 Performed By: #### E STRA #### [facility] [address] [place] [address] Progesterone, Serumon 2018 Progesterone [Mass/Vol] 0.1 ng/mL CJ-NSTZY-Qlklf er 206A IVF Work Phone: Comment on above: Progesterone is perf ormed using the [employer] Access Immunoassay. Progesterone testing is performed using a different test methodology at [facility] than other [facility]. Direct result comparison should only be made within the same method.REF VALUESMALE <0.2-0.8 FOLLICULAR PHASE <0.2-1.5 LUTEAL PHASE 7.4-15.4 POSTMENOPAUSAL <0.2-0.2 1ST TRIMESTER 12.0-84.0 2ND TRIMESTER 10.2-58.8 3RD TRIMESTER 46.5-160 HCG,BETA-QUANTITATIVEon 09-2 HCG,BETA-QUANTITA TIVE 10 mIU/mL [facility] Comment on above: Result Comment: Low- level [...] HCG measurement is performed using the [employer] [place] Access Immunoassay which detects intact HCG and free beta HCG subunit. This test is not indicated for use as a tumor marker. HCG testing is performed using a different test methodology at [facility] than other [facility]. Direct result comparison should only be made within the same method. REF VALUES NON FEMALE <5 MALES <5 Performed By: #### L H #### [facility] [address] [place] [id number] LUTEINIZING HORMONEon 2018 LUTEINIZING HORMONE 57.0 IU/L Normal [facility] Comment on above: Result Comment: Lute inizing Hormone [LH] is performed using the [employer] Access Immunoassay. LH testing is performed using a different test methodology at [facility] than other [facility]. Direct result comparison should only be made within the same method. REF VALUES FOLLICULAR PHASE 1.5-10.0 MID-CYCLE 13.0-72.0 LUTEAL PHASE 0.5-13.0 MENOPAUSE 15.0-65.0 PREPUBERTY 0- 3.0 CHILDREN 0- 6.0 ADULT MALE 1.0- 9.0 Performed By: #### E STRA #### [facility] [address] [place] [address] PROGESTERONEon 08-13-2019 PROGESTERONE 6.7 ng/mL Normal [facility] Comment on above: Result Comment: Prog esterone is performed using the [employer] Access Immunoassay. Progesterone testing is performed using a different test methodology at [facility] than other [facility]. Direct result comparison should only be made within the same method. REF VALUES MALE <0.2-0.8 FOLLICULAR PHASE <0.2-1.5 LUTEAL PHASE 7.4-15.4 POSTMENOPAUSAL <0.2-0.2 1ST TRIMESTER 12.0-84.0 2ND TRIMESTER 10.2-58.8 3RD TRIMESTER 46.5-160 Performed By: #### L H #### [facility] [address] [place] [address] ESTRADIOLon 08-12-2019 ESTRADIOL 1380 pg/mL Normal [facility] Comment on above: Result Comment: Estr adiol measurement is performed using the [employer] [place] Access Immunoassay. Estradiol testing is performed using a different test methodology at [facility] than [facility]. Direct result comparison should only be made within the same method. REF VALUES FOLLICULAR PHASE 20-144 MID CYCLE 64-357 LUTEAL PHASE 56-214 POSTMENOPAUSE < 32 PREPUBERTY < 20 MALE 10-18Y < 20 ADULT MALE < 40 Performed By: #### L H #### [facility] [address] [place] [address] PROGESTERONEon 08-12-2019 PROGESTERONE 1.7 ng/mL Normal [facility] Comment on above: Result Comment: Prog esterone is performed using the [employer] [place] Access Immunoassay. Progesterone testing is performed using a different test methodology at [facility] than [facility]. Direct result comparison should only be made within the same method. REF VALUES MALE <0.2-0.8 FOLLICULAR PHASE <0.2-1.5 LUTEAL PHASE 7.4-15.4 POSTMENOPAUSAL <0.2-0.2 1ST TRIMESTER 12.0-84.0 2ND TRIMESTER 10.2-58.8 3RD TRIMESTER 46.5-160 Performed By: #### L H #### [facility] [address] [place] [address] ESTRADIOLon 08-11-2019 ESTRADIOL 874 pg/mL Normal [facility] Comment on above: Result Comment: Estr adiol measurement is performed using the [employer] Access Immunoassay. Estradiol testing is performed using a different test methodology at [facility] than [facility]. Direct result comparison should only be made within the same method. REF VALUES FOLLICULAR PHASE 20-144 MID CYCLE 64-357 LUTEAL PHASE 56-214 POSTMENOPAUSE < 32 PREPUBERTY < 20 MALE 10-18Y < 20 ADULT MALE < 40 Performed By: #### L H #### [facility] [address] [place] [address] PROGESTERONEon 08-11-2019 PROGESTERONE 1.2 ng/mL Normal [facility] Comment on above: Result Comment: Prog esterone is performed using the [employer] Access Immunoassay. Progesterone testing is performed using a different test methodology at [facility] than other [facility]. Direct result comparison should only be made within the same method. REF VALUES MALE <0.2-0.8 FOLLICULAR PHASE <0.2-1.5 LUTEAL PHASE 7.4-15.4 POSTMENOPAUSAL <0.2-0.2 1ST TRIMESTER 12.0-84.0 2ND TRIMESTER 10.2-58.8 3RD TRIMESTER 46.5-160 Performed By: #### L H #### [facility] [address] [place] [address] ESTRADIOLon 08-09-2019 ESTRADIOL 385 pg/mL Normal [facility] Comment on above: Result Comment: Estr adiol measurement is performed using the [employer] [place] Access Immunoassay. Estradiol testing is performed using a different test methodology at [facility] than other [facility]. Direct result comparison should only be made within the same method. REF VALUES FOLLICULAR PHASE 20-144 MID CYCLE 64-357 LUTEAL PHASE 56-214 POSTMENOPAUSE < 32 PREPUBERTY < 20 MALE 10-18Y < 20 ADULT MALE < 40 Performed By: #### L H #### [facility] [address] [place] [address] ESTRADIOLon 08-07-2019 ESTRADIOL 80 pg/mL Normal [facility] Comment on above: Result Comment: Estr adiol measurement is performed using the [employer] [place] Access Immunoassay. Estradiol testing is performed using a different test methodology at [facility] than [facility]. Direct result comparison should only be made within the same method. REF VALUES FOLLICULAR PHASE 20-144 MID CYCLE 64-357 LUTEAL PHASE 56-214 POSTMENOPAUSE < 32 PREPUBERTY < 20 MALE 10-18Y < 20 ADULT MALE < 40 Performed By: #### L H #### [facility] [facility] [address] [place] [address] ESTRADIOLon 08-04-2019 ESTRADIOL 58 pg/mL Normal [facility] Comment on above: Result Comment: Estr adiol measurement is performed using the [employer] [place] Access Immunoassay. Estradiol testing is performed using a different test methodology at [facility] than other [facility]. Direct result comparison should only be made within the same method. REF VALUES FOLLICULAR PHASE 20-144 MID CYCLE 64-357 LUTEAL PHASE 56-214 POSTMENOPAUSE < 32 PREPUBERTY < 20 MALE 10-18Y < 20 ADULT MALE < 40 Performed By: #### L H #### [facility] [address] [place] [address] ESTRADIOLon 07-07-2019 ESTRADIOL 110 pg/mL Normal [facility] Comment on above: Result Comment: Estr adiol measurement is performed using the Jose [email or web address] Access Immunoassay. Estradiol testing is performed using a different test methodology at [facility] than other [facility]. Direct result comparison should only be made within the same method. REF VALUES FOLLICULAR PHASE 20-144 MID CYCLE 64-357 LUTEAL PHASE 56-214 POSTMENOPAUSE < 32 PREPUBERTY < 20 MALE 10-18Y < 20 ADULT MALE < 40 Performed By: #### L H #### [facility] [address] [place] [address] NR MRI SELLA WO/Won 05-31-20 19 NR MRI SELLA WO/W Patient Name: KIARA ASHLEY STUDY: NR MRI SELLA WO/W; 05/31/2019 2:00 pm INDICATION: History of 7 mm microadenoma 2008. COMPARISON: None. ACCESSION NUMBER(S): [id number] ORDERING CLINICIAN: SHAHLA HEALY TECHNIQUE: High resolution [...] Electronically signed by: IRENE BLAKE PHYSICIAN Normal [facility] ESTRADIOLon 05-05-2019 ESTRADIOL 217 pg/mL Normal [facility] Comment on above: Result Comment: Estr adiol measurement is performed using the Jose [employer] Access Immunoassay. Estradiol testing is performed using a different test methodology at [facility] than other [facility]. Direct result comparison should only be made within the same method. REF VALUES FOLLICULAR PHASE 20-144 MID CYCLE 64-357 LUTEAL PHASE 56-214 POSTMENOPAUSE < 32 PREPUBERTY < 20 MALE 10-18Y < 20 ADULT MALE < 40 Performed By: #### E STRA #### [facility] [address] [place] [address] LUTEINIZING HORMONEon 2018 LUTEINIZING HORMONE 4.4 IU/L Normal [facility] Comment on above: Result Comment: Lute inizing Hormone [LH] is performed using the Jose Ryan Access Immunoassay. LH testing is performed using a different test methodology at [facility] than other [facility]. Direct result comparison should only be made within the same method. REF VALUES FOLLICULAR PHASE 1.5-10.0 MID-CYCLE 13.0-72.0 LUTEAL PHASE 0.5-13.0 MENOPAUSE 15.0-65.0 PREPUBERTY 0- 3.0 CHILDREN 0- 6.0 ADULT MALE 1.0- 9.0 Performed By: #### L H #### [facility] [address] [place] [address] ESTRADIOLon 04-11-2019 ESTRADIOL 118 pg/mL Normal [facility] Comment on above: Result Comment: Estr adiol measurement is performed using the Jose [place] Access Immunoassay. Estradiol testing is performed using a different test methodology at [facility] than other [facility]. Direct result comparison should only be made within the same method. REF VALUES FOLLICULAR PHASE 20-144 MID CYCLE 64-357 LUTEAL PHASE 56-214 POSTMENOPAUSE < 32 PREPUBERTY < 20 MALE 10-18Y < 20 ADULT MALE < 40 Performed By: #### E STRA #### [facility] [address] [place] [address] LUTEINIZING HORMONEon 2018 LUTEINIZING HORMONE 7.7 IU/L Normal [facility] Comment on above: Result Comment: Lute inizing Hormone [LH] is performed using the Jose [email or web address] Access Immunoassay. LH testing is performed using a different test methodology at [facility] than other [facility]. Direct result comparison should only be made within the same method. REF VALUES FOLLICULAR PHASE 1.5-10.0 MID-CYCLE 13.0-72.0 LUTEAL PHASE 0.5-13.0 MENOPAUSE 15.0-65.0 PREPUBERTY 0- 3.0 CHILDREN 0- 6.0 ADULT MALE 1.0- 9.0 Performed By: #### L H #### [facility] [address] [place] [address] PROGESTERONEon 04-11-2019 PROGESTERONE 0.1 ng/mL Normal [facility] Comment on above: Result Comment: Prog esterone is performed using the Jose [email or web address] Access Immunoassay. Progesterone testing is performed using a different test methodology at [facility] than [facility]. Direct result comparison should only be made within the same method. REF VALUES MALE <0.2-0.8 FOLLICULAR PHASE <0.2-1.5 LUTEAL PHASE 7.4-15.4 POSTMENOPAUSAL <0.2-0.2 1ST TRIMESTER 12.0-84.0 2ND TRIMESTER 10.2-58.8 3RD TRIMESTER 46.5-160 Performed By: #### P SVEN #### [facility] [address] [place] [address] ESTRADIOLon 03-17-2019 ESTRADIOL 120 pg/mL Normal [facility] Comment on above: Result Comment: Estr adiol measurement is performed using the Jose [email or web address] Access Immunoassay. Estradiol testing is performed using a different test methodology at [facility] than [facility]. Direct result comparison should only be made within the same method. REF VALUES FOLLICULAR PHASE 20-144 MID CYCLE 64-357 LUTEAL PHASE 56-214 POSTMENOPAUSE < 32 PREPUBERTY < 20 MALE 10-18Y < 20 ADULT MALE < 40 Performed By: #### E STRA #### [facility] [address] [place] [address] LUTEINIZING HORMONEon 2018 LUTEINIZING HORMONE 6.8 IU/L Normal [facility] Comment on above: Result Comment: Lute inizing Hormone [LH] is performed using the Jose [place] Access Immunoassay. LH testing is performed using a different test methodology at [facility] than other [facility]. Direct result comparison should only be made within the same method. REF VALUES FOLLICULAR PHASE 1.5-10.0 MID-CYCLE 13.0-72.0 LUTEAL PHASE 0.5-13.0 MENOPAUSE 15.0-65.0 PREPUBERTY 0- 3.0 CHILDREN 0- 6.0 ADULT MALE 1.0- 9.0 Performed By: #### L H #### [facility] [address] [place] [address] ESTRADIOLon 02-20-2019 ESTRADIOL 521 pg/mL Normal [facility] Comment on above: Result Comment: Estr adiol measurement is performed using the Jose [employer] Access Immunoassay. Estradiol testing is performed using a different test methodology at [facility] than other [facility]. Direct result comparison should only be made within the same method. REF VALUES FOLLICULAR PHASE 20-144 MID CYCLE 64-357 LUTEAL PHASE 56-214 POSTMENOPAUSE < 32 PREPUBERTY < 20 MALE 10-18Y < 20 ADULT MALE < 40 Performed By: #### E STRA #### [facility] [address] [place] [address] LUTEINIZING HORMONEon 2018 LUTEINIZING HORMONE 3.5 IU/L Normal [facility] Comment on above: Result Comment: Lute inizing Hormone [LH] is performed using the Jose [employer] Access Immunoassay. LH testing is performed using a different test methodology at [facility] than other [facility]. Direct result comparison should only be made within the same method. REF VALUES FOLLICULAR PHASE 1.5-10.0 MID-CYCLE 13.0-72.0 LUTEAL PHASE 0.5-13.0 MENOPAUSE 15.0-65.0 PREPUBERTY 0- 3.0 CHILDREN 0- 6.0 ADULT MALE 1.0- 9.0 Performed By: #### L H #### [facility] [address] [place] [address] Vital Signs Date Time Vital Sign Value Performing Clinician Faci lity 12-27-2023 10:57-0500 Body mass index (BMI) [Ratio] 34.84 kg/m2 Bere JOHNSON Work Phone: [facility] 12-27-2023 10:57-0500 Body weight 83.64 kg Bere Almeidaamanda JOHNSON Work Phone: [facility] 12-27-2023 10:57-0500 Diastolic blood pressure 68 mm[Hg] Bere Almeidaey PA Work Phone: [facility] 12-27-2023 10:57-0500 Systolic blood pressure 110 mm[Hg] Bere Almeidaamanda JOHNSON Work Phone: [facility] 02-27-2023 11:35-0400 Body mass index (BMI) [Ratio] 29.26 kg/m2 Evelyn [facility]Ana [facility] 02-27-2023 11:35-0400 Body temperature 98.8 [degF] Evelyn Grubererhorn [facility] Phone[facility] [employer] [facility] [employer] 02-27-2023 11:35-0400 Body weight 72.58 kg Evelyn Grubererhorn Work Phone[facility] 02-27-2023 11:35-0400 Diastolic blood pressure 66 mm[Hg] Evelyn Grubererhorn Work Phone: [facility] 02-27-2023 11:35-0400 Heart rate 88 /min Evelyn Grubererhorn Work Phone[facility] 02-27-2023 11:35-0400 Respiratory rate 14 /min Evelyn Grubererhorn Work Phone[facility] 02-27-2023 11:35-0400 SaO2% (BldA) [Mass fraction] 100 % Evelyn Grubererhorn Work Phone: [facility] 02-27-2023 11:35-0400 Systolic blood pressure 103 mm[Hg] Evelyn Ana Work Phone: [facility] 06-19-2021 14:03-0400 Body height 157.48 cm Evelyn Lisha UngerAna Work Phone: YY-MDAZM-Vhatjl 310 IVF Work Phone: 06-19-2021 14:03-0400 Body mass index (BMI) [Ratio] 29.26 kg/m2 [facility] Ana Work Phone: UF-EWHUD-Xhmcwl 310 IVF Work Phone: 06-19-2021 14:03-0400 Body surface area Derived from formula 1.74 m2 [facility] Ana Work Phone: VA-RPWWY-Ijisos 310 IVF Work Phone: 06-19-2021 14:03-0400 Body weight 72.58 kg [facility] Ana Work Phone: WF-KEWAH-Cakxzp 310 IVF Work Phone: 06-19-2021 14:03-0400 1 1 [facility] Ana Work Phone: RR-VCKAR-Rpxstc 310 IVF Work Phone: Comment on above: GRAV PARA 06-19-2021 14:03-0400 0 1 [facility] Ana Work Phone: LQ-FRIXY-Pyaiya 310 IVF Work Phone: Comment on above: [employer] 06-07-2020 10:41-0400 BMI (Body Mass Index) 34.93 kg/m2 King Lappen DB-VXCJI-QIJ [address] [place] Work Phone: 06-07-2020 10:41-0400 Body weight 86.64 kg King Lappen RK-VAOVB-YPU 120 0 [place] Work Phone: 06-07-2020 10:41-0400 BP Diastolic 76 mm[Hg] King Lappen UQ-MZUAO-FQN 120 0 [place] Work Phone: 06-07-2020 10:41-0400 BP Systolic 111 mm[Hg] King Lappen KV-XAOKH-IES 120 0 [place] Work Phone: 06-07-2020 10:41-0400 BSA (Body Surface Area) 1.87 m2 King Lappen YF-SBQAZ-TYD [address] [place] Work Phone: 06-07-2020 10:41-0400 Pulse (Heart Rate) 101 /min King Lappen OQ-BFZGK-OBP [address] [place] Work Phone: 06-07-2020 10:41-0400 0 1 King Lappen SI-TKEFX-NBL 120 0 [place] Work Phone: Comment on above: [employer] 12-25-2019 10:58-0500 BMI (Body Mass Index) 30.18 kg/m2 King Lappen OC-MHVBG-HYB [address] [place] Work Phone: 12-25-2019 10:58-0500 Body weight 74.84 kg King Lappen FX-XORCZ-SQZ 120 0 [place] Work Phone: 12-25-2019 10:58-0500 BP Diastolic 68 mm[Hg] King Lappen ZR-TDSMK-QUR 120 0 [place] Work Phone: 12-25-2019 10:58-0500 BP Systolic 112 mm[Hg] King Lappen XV-UPHIN-OPT 120 0 [place] Work Phone: 12-25-2019 10:58-0500 BSA (Body Surface Area) 1.76 m2 King Lappen UE-RNJKD-BUP [address] [place] Work Phone: 11-09-2019 11:28-0500 Body Temperature 98.78 [degF] Kelechi Gage BM-HLPAB-Yjanss 310 IVF Work Phone: 11-09-2019 11:28-0500 BP Diastolic 76 mm[Hg] Kelechi Gage UJ-NYZGH-Fgvskk 310 IVF Work Phone: 11-09-2019 11:28-0500 BP Systolic 112 mm[Hg] Kelechi Gage QW-QFGVJ-Qooqxp 310 IVF Work Phone: 11-09-2019 11:28-0500 Respiratory Rate 96 /min Kelechi Gage VS-CDKLN-Scpwfm 310 IVF Work Phone: Encounters Encounter Date Encounter Type Care Provider Facility Start: 07-18-2024 ambulatory [facility] Start: 06-22-2024 End: 07-16-2024 ambulatory [facility] Start: 05-11-2024 End: 06-15-2024 ambulatory [facility] Start: 04-17-2024 End: 04-17-2024 ambulatory BERE STEEL Not Available Start: 03-27-2024 End: 03-27-2024 ambulatory BERE ELSA Not Available Start: 02-29-2024 End: 02-29-2024 ambulatory DEMARIO GISSEL Not Available Start: 02-22-2024 End: 02-22-2024 ambulatory BERE ELSA Not Available Start: 02-07-2024 End: 02-07-2024 ambulatory DEMARIO GISSEL Not Available Start: 01-24-2024 End: 01-24-2024 ambulatory BERE ELSA Not Available Start: 01-10-2024 End: 01-11-2024 ambulatory Zoya Buitrago 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 Facility:Pulmonology & Critical Care Medicine [facility] Start: 12-27-2023 End: 12-27-2023 flow sheet Bere Steel PA Work Phone: [facility] Comment on above: Third trimester preg teddy; First trimester ; Hypothyroidism, unspecified type (CMS/HCC); Hypothyroidism (acquired) (CMS/HCC); H/O blood clots; Excessive growth affecting management of in third trimester, single or unspecified fetus Start: 12-27-2023 End: 12-27-2023 ambulatory BERE ELSA Not Available Start: 11-30-2023 End: 11-30-2023 ambulatory DEMARIO GISSEL Not Available Start: 11-03-2023 End: 11-03-2023 ambulatory DEMARIO GISSEL Not Available Start: 10-05-2023 End: 10-05-2023 ambulatory BERE ELSA Not Available Start: 09-14-2023 End: 09-14-2023 ambulatory Lc Waite Facility:[facility] Start: 02-27-2023 End: 02-27-2023 Emergency [...] 12-27-2021 End: 12-27-2021 ambulatory Sabina Barnhart Other [employer] Other Start: 12-27-2021 Office outpatient visit 5 minutes Sabinarene Barnhart [facility] Start: 07-16-2021 Patient encounter procedure Evelyn Grubererhorn Work Phone: HE-VOEHN-Cgwvus 310 IVF Work Phone: Start: 07-07-2021 AUDIT Evelyn Husain Scherm erhorn Work Phone: TZ-ZRFPW-Cwfqwl 310 IVF Work Phone: Start: 07-07-2021 Chart Update Evelyn Husain Scherm erhorn Work Phone: LO-GDAUI-Bbcfib 310 IVF Work Phone: Start: 07-02-2021 Telephone encounter Evelyn Husain Alejandro martínezkleverclarisse Work Phone: PT-OQLUJ-Kkqufd 310 IVF Work Phone: Start: 06-19-2021 Patient encounter procedure Evelyn Trevinohorn Work Phone: VR-KONNK-Kiwgwp 310 IVF Work Phone: Start: 06-07-2020 Patient encounter procedure King Lappen US-IWYHV-LGF [address] [place] Work Phone: Start: 04-24-2020 Patient encounter procedure King Lappen MF-IMMNZ-QAW [address] [place] Work Phone: Start: 02-20-2020 Patient encounter procedure King Lappen GK-HCMUW-QOX [address] [place] Work Phone: Start: 02-14-2020 Patient encounter procedure King Lappen PS-ZVOBO-VKQ [address] [place] Work Phone: Start: 01-23-2020 Patient encounter procedure King Lappen MG-CSECF-JST [address] [place] Work Phone: Start: 12-25-2019 Patient encounter procedure King Lappen QC-LRIJX-IMX [address] [place] Work Phone: Start: 11-21-2019 Patient encounter procedure King Lappen JP-CVNEI-GUL [address] [place] Work Phone: Start: 11-16-2019 Patient encounter procedure Kelechi Gage MP-Reproductive Endocrinology-Balwinder 206 Work Phone: Start: 11-14-2019 Patient encounter procedure Kelechi Gage US-EKJUR-Aiyasy 310 IVF Work Phone: Start: 11-09-2019 Patient encounter procedure Kelechi Gage RQ-IXMPB-Ynhcjq 310 IVF Work Phone: Start: 11-02-2019 Patient encounter procedure Kelechi Gage MP-Reproductive Endocrinology-Risman Work Phone: Start: 10-21-2019 Patient encounter procedure Kelechi Gage MP-Reproductive Endocrinology-Risman Work Phone: Start: 10-14-2019 Patient encounter procedure Kelechi Gage YK-FATZQ-Lqgzrw 310 IVF Work Phone: Start: 10-11-2019 Patient encounter procedure Kelechi Gage TC-YDYYC-Omjtkp 310 IVF Work Phone: Start: 10-05-2019 Patient encounter procedure Kelechi Gage GV-JNLVL-Jmduxa 320 Work Phone: Start: 10-02-2019 Patient encounter procedure Kelechi Gage RZ-AUQJS-Bjqoblm 206A IVF Work Phone: Start: 08-14-2019 Patient encounter procedure Kelechi Gage LP-PKEMP-Rsnfal 310 IVF Work Phone: Start: 08-13-2019 Patient encounter procedure Kelechi Gage WF-XIMVI-Vziafd 310 IVF Work Phone: Start: 08-12-2019 Patient encounter procedure Kelechi Gage VT-IRANL-Fegixa 310 IVF Work Phone: Start: 08-11-2019 Patient encounter procedure Kelechi Gage CE-OABVB-Npizbv 310 IVF Work Phone: Start: 08-09-2019 Patient encounter procedure Kelechi Gage LI-CFVSE-Lrtpml 310 IVF Work Phone: Start: 08-07-2019 Patient encounter procedure Kelechi Gage LR-JHRRB-Tsewyy 310 IVF Work Phone: Start: 08-04-2019 Patient encounter procedure Kelechi Gage XA-AGGTW-Rhqfbi 310 IVF Work Phone: Start: 07-07-2019 Patient encounter procedure Kelechi Gage ZJ-KHEGS-Jizkax 310 IVF Work Phone: Start: 06-08-2019 Patient encounter procedure Kelechi Gage AO-HOEHO-Tkjagi 310 IVF Work Phone: Start: 05-17-2019 Patient encounter procedure Kelechi Gage XQ-LTAQO-Qgpvvz 310 IVF Work Phone: Start: 05-08-2019 Patient encounter procedure Kelechi Gage YR-JOPIM-Gdqfvz 310 IVF Work Phone: Start: 05-05-2019 Patient encounter procedure Kelechi Gage KG-WMUNF-Ehzwkl 310 IVF Work Phone: Start: 04-13-2019 Patient encounter procedure Kelechi Gage OK-LEODZ-Jtzagy 310 IVF Work Phone: Start: 04-11-2019 Patient encounter procedure Kelechi Gage HI-DPNCT-Utxztf 310 IVF Work Phone: Start: 03-20-2019 Patient encounter procedure Kelechi TONGIK-TYLGW-Wbqqsn 310 IVF Work Phone: Start: 03-17-2019 Patient encounter procedure Kelechi TONGMR-HPZQV-Xeqpms 310 IVF Work Phone: Start: 02-22-2019 Patient encounter procedure Kelechi Gage AF-XGEAO-Vhyrea 310 IVF Work Phone: Start: 02-20-2019 Patient encounter procedure Kelechi Gage EI-YEHYI-Wsgqxq 310 IVF Work Phone: Start: 02-13-2019 Patient encounter procedure Bruce Mayes Facility:[facility] Start: 02-08-2019 End: 02-12-2019 Patient encounter procedure Bruce Mayes Facility:[facility] Start: 01-19-2019 Patient encounter procedure Kelechi Gage JX-YOTGQ-Drtjtj 310 IVF Work Phone: Patient encounter status Evelyn Perez Work Phone: IA-ATYZV-Gqvzpt 310 IVF Work Phone: Procedures Date Procedure [...] Gage Extraction of wisdom tooth Eve aguirre Gage Plan of Treatment Date Care Activity Detail Author Start: 02-07-2024 End: 02-07-2024 Patient encounter procedure 02/07/2024 9:40 AM EDT Routine [facility] [address] [place], [place] [address] Demario Ribeiro DO [address] [place] [address] [facility] Start: 02-07-2024 End: 02-07-2024 Professional / ancillary services management 02/07/2024 9:00 AM EDT Ancillary Procedure [facility] [address] [place], [place] [address] [facility] Start: 01-24-2024 End: 01-24-2024 Patient encounter procedure 01/24/2024 9:30 AM EDT Routine [facility] [address] [place], [place] [id number] Bere Steel PA [address] [place] [address] [facility] Start: 01-10-2024 End: 01-10-2024 Patient encounter procedure 01/10/2024 2:20 PM EST Routine [facility] [address] [place] [id number] Demario Ribeiro, DO [address] [place], [place] [id number] [facility] Start: 01-10-2024 End: 01-10-2024 Professional / ancillary services management 01/10/2024 2:00 PM EST Ancillary Procedure [facility] [address] [place], [place] [address] [facility] Start: 12-27-2023 End: 12-27-2024 [...] unspecified fetus Expected: 12/27/2023 (Approximate), Expires: 12/27/2024 [facility] Comment on above: Expected: 12/27/2023 (Approximate), Expires: 12/27/2024 Start: 06-15-2023 Influenza vaccination Flu vacc ine (Season Ended) [facility] Start: 2021 Screening for malignant neoplasm of cervix [facility] Start: 07-25-2021 ULTRASOUND, Provider : OBGYN IVF RDMS ARDEN 1,[facility], Status: Pen, Time: 9:00 AM ULTRASOUND, Provider: OBGYN IVF RDMS ARDEN 1,MG OBGYN, Status: Pen, Time: 9:00 AM UQ-MYDKZ-Dozkzi 310 IVF Work Phone: Start: 07-16-2021 ULTRASOUND, Provider : OBGYN IVF RDMS [id number] 1,MG OBGYN, Status: Pen, Time: 1:00 PM ULTRASOUND, Provider: OBGYN IVF RDMS [id number] 1,[facility] OBGYN, Status: Pen, Time: 1:00 PM MI-QKIZK-Ykrjqp 310 IVF Work Phone: Start: 07-07-2021 ULTRASALIN, Provider : Miguel A Barrera, Status: Pen, Time: 10:00 AM ULTRASALIN, Provider: Miguel A Barrera, Status: Pen, Time: 10:00 AM CJ-LRPJR-Btwpmz 310 IVF Work Phone: Start: 06-05-2020 MAC Imaging Order MG-ENGINEERING SURVEYOR-MAC 1200 [place] Work Phone: Start: 11-16-2019 IO Ultrasound, -Reproductive Endocrinology-[facility] chastity 206 Work Phone: Start: 11-14-2019 Blood count complete auto&auto difrntl wbc Complete Blood Count + Differential DP-AYWTJ-Qhfnxo 310 IVF Work Phone: Start: 11-14-2019 Comprehensive metabolic 2000 panel PH-FHOIG-Hlyiqm 310 IVF Work Phone: Start: 11-02-2019 Gonadotropin chorion ic quantitative HCG, Beta Quantitative -Reproductive Endocrinology-[facility] chastity 206 Work Phone: Start: 10-11-2019 IO Ultrasound, limited pelvic, follicle monitoring TH-PAPAG-Hawkuw 310 IVF Work Phone: Start: 10-05-2019 IO Ultrasound, limited pelvic, follicle monitoring KQ-SQEFV-Hnvmhl 320 Work Phone: Start: 2012 Screening for malignant neoplasm of cervix Pap smear [facility] Start: 2010 DTaP/Tdap/Td vaccine ( - Tdap) DTaP/Tdap/Td vaccine ( - Tdap) [facility] Start: 2009 Hepatitis C screening Hepatitis C sc reen [facility] Start: 2006 HIV screening HIV screen [facility] Start: 2003 Depression Screen Depression Screen [facility] Start: 1992 Varicella vaccine (1 of 2 - 2-dose childhood series) Varicella vaccine (1 of 2 - 2-dose childhood series) [facility] Start: 03-02-1992 COVID-19 Vaccine (#1) COVID-19 Vacci ne (#1) [facility] Assay of estradiol Estradiol, Serum MG-ENGINEERING SURVEYOR-Risman 310 IVF Work Phone: Comment on above: Approx [id number] Approx [id number] Approx [id number] Assay of progesterone Progesterone, Serum FB-EPUHN-Etlzox 310 IVF Work Phone: Comment on above: Approx [id number] Gonadotropin luteinizing hormone Luteinizing Hormone, Serum ET-VZMXQ-Gucmka 310 IVF Work Phone: Comment on above: Approx [id number] XD-UKADX-Dkowqf 320 Work Phone: IO Ultrasound, l imited pelvic, follicle monitoring OA-XDYHF-Wteyyc 310 IVF Work Phone: Comment on above: Approx [id number] Approx [id number] Approx [id number] NEGATED: Highlighted row has been ruled out! Planned Goals not documented ZH-TBXGH-Sycdgj 310 IVF Work Phone: Payers Date Payer Category Payer Self-pay 2016 Private Health Insurance [id number] 2016 Private Health Insurance [id number] 1991 Unknown [id number] 2.16.84 0.1.150620.3.579.2.593 1991 Unknown [id number] 2.16.84 0.1.815944.3.579.2.593 1991 Unknown [id number] 2.16.84 0.1.349522.3.579.2.593 1991 Unknown [id number] 2.16.84 0.1.599934.3.579.2.593 1991 Unknown [id number] 2.16.84 0.1.081670.3.579.2.593 1991 Unknown [id number] 2.16.84 0.1.346011.3.579.2.593 1991 Unknown [id number] 2.16.84 0.1.790046.3.579.2.593 1991 Unknown [id number] 2.16.84 0.1.693916.3.579.2.593 1991 Unknown [id number] 2.16.84 0.1.504911.3.579.2.593 1991 Unknown [id number] 2.16.84 0.1.990543.3.579.2.593 1991 Unknown [id number] 2.16.84 0.1.956792.3.579.2.593 1991 Unknown [id number] 2.16.84 0.1.597822.3.579.2.593 1991 Unknown [id number] 2.16.84 0.1.131235.3.579.2.593 1991 Unknown [id number] 2.16.84 0.1.785366.3.579.2.593 1991 Unknown [id number] 2.16.8 40.1.781048.3.579.2.173 1991 Unknown [id number] 2.16.8 40.1.878213.3.579.2.173 1991 Unknown [id number] 2.16. 840.1.606269.3.579.2.196 1991 Unknown [id number] 2.16. 840.1.699433.3.579.2.196 1991 Unknown [id number] 2.16.84 0.1.709266.3.579.2.1259 1991 Unknown [id number] 2.16.84 0.1.096077.3.579.2.1259 1991 Unknown [id number] 2.16.84 0.1.160932.3.579.2.1259 1991 Unknown [id number] 2.16.84 0.1.843470.3.579.2.1259 1991 Unknown [id number] 2.16.84 0.1.857177.3.579.2.1259 1991 Unknown [id number] 2.16.84 0.1.351823.3.579.2.1259 1991 Unknown [id number] 2.16.84 0.1.922078.3.579.2.1259 1991 Unknown [id number] 2.16.84 0.1.490271.3.579.2.1259 1991 Unknown [id number] 2.16.84 0.1.745405.3.579.2.1259 1991 Unknown [id number] 2.16.840 .1.475699.3.579.2.1259 1991 Unknown [id number] 2.16.840 .1.142775.3.579.2.1259 1991 Unknown [id number] 2.16.8 40.1.216752.3.579.2.1286 1991 Unknown [id number] 2.16.8 40.1.814766.3.579.2.1286 1991 Unknown [id number] 2.16.8 40.1.080232.3.579.2.1286 1959 Self-pay [id number] 1959 Unknown [id number] 1959 Unknown [id number] Unknown [id number] 2.16.8 40.1.726925.3.579.2.243 Unknown [id number] 2.16.8 40.1.598977.3.579.2.243 Unknown Unknown [id number] 2.16.8 40.1.177174.3.579.2.531 Social History Date Type Detail Facility - - GR-DKJYS-Phrjzl 310 IVF Work Phone: Start: 05-11-2023 End: 12-27-2023 Never a smoker Never a smoker [facility] Comment on above: [facility]; Start: 05-11-2023 End: 09-06-2023 Sex Assigned At [facility] Start: 09-22-2022 End: 04-15-2023 Tobacco smoking status NHIS Never smoked tobacco [employer] Work Phone: Start: 09-22-2022 End: 04-15-2023 Tobacco use and exposure Smokeless tobacco non-user [employer] Phone: Start: 1990 Sex Assigned At Not on file B [facility] Phone: Start: 02-17-2023 End: 02-27-2023 Exposure to SARS-CoV-2 (event) Not sure [employer] Start: 12-27-2023 Alcohol intake Current drinke r [...] status health issues are not documented Disease [id number] 310 IVF Work Phone: Mental Status Date Assessment Result Facility NEGATED: Highlighted row Cognitive function [Interpretation] Cognitive status health issues are not documented Disease [id number] 310 IVF Work Phone: History of Present [...] Problems Past Medical History: Diagnosis Date Asthma ([facility]) Infection of obstetric surgical wound Protein S deficiency ([facility]) Vaginal delivery Family History Problem Relation Name [...] of: ELIZABETH Daly documented in this encounter [facility] Healthcare Evaluation note 12-27-2021 Note Date [...] Patient care instructions given in writting by [facility] Care At Home document. [employer] Other Clinical Note 07-25-2021 Note Date & [...] care. Reviewed plan with Dr. Bruce Aburto, G[employer] LEAK INSPECTOR HELPER 07/25/2021 09:22 note: ob scan LOLLY: 03/05/2022. [...] Plan reviewed by Dr. Healy. Petra Harjit GAS LEAK INSPECTOR HELPER 07/16/21 1409 TC to pt with quant = 3238 form yesterday; normal rise from 728 on 07/02; Pt doing well; no problems with Lovenox. PT transferred to [facility] to schedule OB US for next week at [facility]. Bere Way RN 07/07/2021 11:47 Spoke with patient regarding SQPS=407. Pain=0. Patient states she will begin prometrium BID and Lovenox today. Patient will repeat BHCg on Wednesday when she is at work. Patient aware RN will call her WednesdayJuly 07 with results and plan. Lucy Dunlap R.N.07/03/2021 12:19 Spoke to patient, will start Prometrium 100 mg BID and Lovenox 40 mg BID today (+Protein S deficiency). [place] to f/u with patient tomorrow once HCG level is back. Patient verbalized understanding. Rosibel Sam RN 07/02/2021 13:54 MD note: Reviewed positive test. LMP 7/15, conceived on christy cycle/IC. Plan to get HCG drawn today. Start Prometrium 100mg BID. Start Lovenox 40mg BID SQ. Plan per Dr. Healy. RN to communicate. Petra Lombardi G[employer] LEAK INSPECTOR HELPER 07/02/21 1304 Active Problems 16 weeks gestation [...] directed. Peak F (more content not included)... scenios Chief complaint Narrative - Reported 06-19-2021 Note [...] 30 year-old who presents for a FET [id number] Hx:06/2020: IOL @ 38 weeks due to [...] contour on HSG - images reviewed from [facility] 08/2018Uterine Cavity Evaluation:Normal uterine cavity on [...] on therapeutic dosing when Genetic Screening Hx: Ladies Who Launch foresKitchon screen negativePartner History:Franklin Ashley 04/09/1989A in past year:2.8 cc125 mil/mL69% lzhqbyvpQVE=069 million(recent IUI sample)Morph from original SA was 2.8% [id number] 310 IVF Work Phone: Evaluation note Note Date & Type Note Facility Evaluation note Diagnosis Sprain of left ankle, unspecified ligament, initial encounter- Primary documented in this encounter [employer] Work Phone: Evaluation note Note Date & Type Note Facility Evaluation note Diagnosis Third trimester state, incidental First trimester state, incidental Hypothyroidism, unspecified type (CMS/HCC) Hypothyroidism (acquired) (CMS/HCC) Unspecified hypothyroidism H/O blood clots Excessive growth affecting management of in third trimester, single or unspecified fetus documented in this encounter [facility] Hospital Discharge instructions Attachments Note Date & Type Note Facility Hospital Discharge instructions The following attachments cannot be sent through Care Everywhere.Ankle Sprain ([place])Ankle Sprain: Rehab Exercises ([place])documented in this encounter [employer] Work Phone: Summary Purpose Family History No [...] DATE CREATED AUTHOR [place] [facility] DATE CREATED AUTHOR AUTHOR'S ORGANIZ ATION 11/12/2019 [facility] DATE CREATED AUTHOR AUTHOR'S ORGANIZ ATION 08/09/2020 [facility] DATE CREATED AUTHOR AUTHOR'S ORGANIZ ATION 07/26/2021 [employer] DATE CREATED AUTHOR AUTHOR'S ORGANIZ ATION 01/21/2023 [facility] DATE CREATED AUTHOR AUTHOR'S ORGANIZ ATION 03/06/2023 [facility] DATE CREATED AUTHOR AUTHOR'S ORGANIZ ATION 07/12/2023 [facility] [place] DATE CREATED AUTHOR AUTHOR'S ORGANIZ ATION 10/04/2023 [facility] DATE CREATED AUTHOR AUTHOR'S ORGANIZ ATION 01/15/2024 [facility] DATE CREATED AUTHOR AUTHOR'S ORGANIZ ATION 04/18/2024 [facility] DATE CREATED AUTHOR AUTHOR'S ORGANIZ ATION 08/12/2024 [facility] REASON FOR VISIT (unrecogniz ed section and content) Reason Comments Ankle Pain Rolled ankle during morning run. Swelling to lateral ankle. 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 Reason Comments Routine Visit Care Teams (unrecognized sec tion and content) Housing Management Representative Relationship Specialty Start Date End Date Evelyn Perez [address] [place] [id number] PCP - General Pediatrics 09/22/22 Housing Management Representative Relationship Specialty Start Date End Date Jesse Regan MD [address] [place] [address] PCP - General Family Medicine 11/30/23 FOR [...] BE BASED ON THE PRIMARY CLINICAL RECORDS. [facility] [employer] provides no warranty or guarantee of the accuracy or completeness of information in this document.
[2024-08-15 16:07] LABS: Basophils Absolute Auto 0.1 10^3/uL (0.0-0.1); Eosinophils Absolute Auto 0.6 10^3/uL (0.0-0.7); Eosinophils Percent Auto 5.9 % (0.9-7.0); Hematocrit 45.9 % (36.0-48.0); Hemoglobin 15.1 g/dL (12.0-16.0); Immature Granulocytes Abs Auto 0.02 10^3/uL (0.00-0.03); Immature Granulocytes Pct Auto 0.2 % (0.0-0.5); Lymphocytes Absolute Auto 3.1 10^3/uL (1.2-3.8); Lymphocytes Percent Auto 29.3 % (20.5-60.0); Mean Corpuscular HGB Conc 32.9 g/dL (29.9-35.2); Mean Corpuscular Hemoglobin 29.9 pg (26.7-34.0); Mean Corpuscular Volume 90.9 fL (81.0-99.0); Mean Platelet Volume 9.2 fL (9.5-13.5); Monocytes Absolute Auto 0.4 10^3/uL (0.3-0.8); Monocytes Percent Auto 4.1 % (1.7-12.0); Neutrophils Absolute Auto 6.2 10^3/uL (1.4-6.5); Neutrophils Percent Auto 59.5 % (43.0-75.0); Platelet Count 388 10^3/uL (150-450); Red Blood Count 5.05 10^6/uL (4.20-5.40); Red Cell Distribution Width 13.8 % (11.0-15.0); White Blood Count 10.5 10^3/uL (4.0-11.0)
[2024-08-15 16:24] LABS: INR 0.95; Partial Thromboplastin Time 28.6 sec (22.3-36.2); Prothrombin Time 10.1 sec (9.0-11.6)
[2024-08-15 16:34] LABS: Estimated Average Glucose 97 mg/dL
[2024-08-15 16:44] LABS: Thyroid Stimulating Hormone 21.186 uIU/mL (0.358-3.740)
[2024-08-15 16:51] LABS: HCG Quantitative <1 mIU/mL
[2024-08-15 18:20] LABS: Free T4 0.62 ng/dL (0.76-1.46)
[2024-08-17 04:12] LABS: FSH 4.4 mIU/mL (.); Luteinizing Hormone(LH) 4.6 mIU/mL (.); Progesterone 0.1 ng/mL (.)
[2024-08-23 02:08] LABS: DHEA, Serum 66 ng/dL (31-701)
== END 2024-08-15 15:34 | disposition home or self-care (01) ==
PROVIDERS: Visit Provider Obstetrics & Gynecology
DX: N92.0 Excessive and frequent menstruation with regular cycle (principal); N93.9 Abnormal uterine and vaginal bleeding, unspecified; Z86.718 Personal history of other venous thrombosis and embolism; E28.2 Polycystic ovarian syndrome
CPT/HCPCS: 36415; 82626; 82627; 83001; 83002; 83036; 84144; 84439; 84443; 84702; 85025; 85520; 85610; 85730

== ENCOUNTER 2024-08-17 19:54 | Outpatient (OUT) | payer OTHER, SELFPAY ==
--- NOTE | 2024-08-17 19:56 | US_ITS ---
The [address] [address] Patient Name: ELVIN STUART MRN: [id number] date: 1990 Sex: F Assigned Patient Location: US Current Patient Location: Accession/Order Number: [id number] Exam Date: 08/17/2024 20:03 Report Date: 08/18/2024 07:35 At the request of: RADAMES CHAUHAN Procedure: US pelvis w/ transvaginal EXAMINATION: US pelvis w/ transvaginal HISTORY: MENORRHAGIA WITH REGULAR CYCLE N92.0 COMPARISON: No relevant comparison available. TECHNIQUE: Transabdominal and/or transvaginal sonographic examination was performed as indicated by examination type. FINDINGS: UTERUS: Normal size and appearance. Uterus size: 7.5 x 3.7 x 5.5 cm ENDOMETRIUM: Normal homogeneous appearance. Endometrial thickness: 2 mm RIGHT OVARY: Normal size and appearance. Duplex Doppler demonstrates normal waveform and flow; resistive index 0.5. Ovary size: 3.0 x 1.8 x 2.7 cm LEFT OVARY: Normal size and appearance. Duplex Doppler demonstrates normal waveform and flow; resistive index 0.6. Ovary size: 3.1 x 1.4 x 2.5 cm CUL-DE-SAC: Trace amount of free fluid; likely physiologic. BLADDER: Unremarkable. OTHER: None. US/US pelvis w/ transvaginal IMPRESSION: 1. No abnormal or suspicious findings to account for patient's symptoms. Electronically authenticated by: BLU FELIPE Date: 08/18/2024 07:35
--- OUTSIDE RECORDS SUMMARY | 2024-08-17 19:58 | XMS_ITS | CCD ---
Author Organization [facility] Care Team Providers Care Electrician [employer] Name Role Phone Bruce Mayes Attending Unavailable Bruce Mayes Primary Care Unavailable Shahla Healy Consulting Unavailable Bruce Mayes Attending Unavailable Bruce Mayes Primary Care Unavailable Weintamia Shahla Consulting Unavailable Kelechi Gage Unavailable Unavailable OBGYN IVF RDMS ARDEN 1, MG OBGYN Unavailable Unavailable AnaEvelyn santana Unavailable Unavailabl e Weinerman, Shahla Unavailable Unavailable Weinerman, Shahla Unavailable Unavailable IVF NURSE OSMEL HER Unavailable Unavaila ble OBGYN IVF RDMS [id number] 1, MG OBGYN Unavailable Unavailable Lappen, King Unavailable Unavailable Weinerman, Shahla Unavailable Unavailable January, Jami Unavailable Unavailable Evelyn Perez Unavailable Unavailable Unavailable Unavailable Unavailable Sabina Barnhart Unavailable ANA, DR EVELYN Husain Primary Care Unavail able QUINTIN ., DR CRUM Attending Unavailable QUINTIN ., DR CRUM Admitting Unavailable ANA, DR EVELYN Husain Primary Care Unavail able QUINTIN ., DR CRUM Attending Unavailable QUINTIN ., DR CRUM Admitting Unavailable QUINTIN ., DR CRUM Consulting Unavailable QUINTIN ., DR CRUM Attending Unavailable QUINTIN ., DR CRUM Admitting Unavailable ANA, DR EVELYN Husain Primary Care Unavail able ANA, DR EVELYN Husain Primary Care Unavail able QUINTIN ., DR CRUM Attending Unavailable QUINTIN ., DR CRUM Admitting Unavailable QUINTIN ., DR CRUM Consulting Unavailable ANA, DR EVELYN Husain Primary Care Unavail able QUINTIN ., DR CRUM Attending Unavailable QUINTIN ., DR CRUM Admitting Unavailable ZIEBER, DR BLU Starr Consulting Unavailable WEST, DR JESSE Alvarez Consulting Unavailable ANA, DR EVELYN Husain Primary Care Unavail able QUINTIN ., DR CRUM Attending Unavailable QUINTIN ., DR CRUM Admitting Unavailable QUINTIN ., DR CRMU Consulting Unavailable KARASIK ., DR SHETH Consulting Unavailabl e KARASIK ., DR SHETH Attending Unavailabl e KARASIK ., DR SHETH Admitting Unavailabl e ANA, DR EVELYN Husain Primary Care Unavail able WEST, DR JESSE Alvarez Consulting Unavailable ANA, DR EVELYN Husain Primary Care Unavail able QUINTIN ., DR CRUM Attending Unavailable QUINTIN ., DR CRUM Admitting Unavailable QUINTIN ., DR CRUM Consulting Unavailable KARASIK ., DR SHETH Consulting Unavailabl e QUINTIN ., DR CRUM Primary Care Unavailable KARASIK ., DR SHETH Attending Unavailabl e KARASIK ., DR SHETH Admitting Unavailabl e QUINTIN ., DR CRUM Consulting Unavailable QUINTIN ., DR CRUM Procedure Practitioner Unavail able QUINTIN ., DR CRUM Consulting Unavailable ANA, DR EVELYN Husain Primary Care Unavail able QUINTIN ., DR CRUM Attending Unavailable QUINTIN ., DR CRUM Admitting Unavailable ANA, DR EVELYN Husain Primary Care Unavail able QUINTIN ., DR CRUM Attending Unavailable QUINTIN ., DR CRUM Admitting Unavailable QUINTIN ., DR CRUM Consulting Unavailable ANA, DR EVELYN Husain Primary Care Unavail able QUINTIN ., DR CRUM Attending Unavailable QUINTIN ., DR CRUM Admitting Unavailable ANA, DR EVELYN Husain Primary Care Unavail able QUINTIN ., DR CRUM Attending Unavailable QUINTIN ., DR CRUM Admitting Unavailable ANA, DR EVELYN Husain Primary Care Unavail able QUINTIN ., DR CRUM Attending Unavailable QUINTIN ., DR CRUM Admitting Unavailable Ana, Evelyn Husain Primary Care Provider JAMI ROMERO Attending Unavailable ANA, EVELYN Husain Primary Care Unavailabl e ANA, EVELYN Husain Primary Care Unavailabl e KunLc stacy Admitting Unavailable Ana, [facility]elyn [facility] Unavailable Lc Waite Attending Unavailable Jesse Regan MD Primary Care Provider Link [facility], Zoya Cheung Attending Zamzamva nevaeh Perez MD, Evelyn Gracia Primary Care Zamzam vailable Ana CALDERÓN, Evelyn Gracia Primary Care Zamzam vailable Link [facility], Zoya Cheung Attending Unava ilable QUINTIN, DEMARIO R Referring Unavailable SCHLACHTER, NIKHIL Primary Care Unavailable QUINTIN, DEMARIO R Referring Unavailable SCHLACHTER, NIKHIL Primary Care Unavailable QUINTIN, DEMARIO R Referring Unavailable SCHLACHTER, NIKHIL Primary Care Unavailable QUINTIN, DEMARIO R Referring Unavailable SCHLACHTER, NIKHIL Primary Care Unavailable QUINTIN, DEMARIO Attending Unavailable ELSA, BERE Attending Unavailable ELSA, BERE Attending Unavailable QUINTIN, DEMARIO Attending Unavailable ELSA, BERE Attending Unavailable QUINTIN, DEMARIO Attending Unavailable QUINTIN, DEMARIO Attending Unavailable ELSA, BERE Attending Unavailable QUINTIN, DEMARIO Attending Unavailable ELSA, BERE Attending Unavailable ELSA, BERE Attending Unavailable QUINTIN, DEMARIO Attending Unavailable Allergies Allergy Classification Reported Allergen(s) Allergy Type Date of Onset Reaction(s) Facility Progesterone (2 sources) Progesterone; Translations: [Progesterone OIL] Drug Allergy [id number] IVF Work Phone: (16 sources) Progesterone; Translations: [Progesterone OIL] Drug Allergy 2 [facility] (2 sources) sesame seed extract Drug Allergy [facility] (6 sources) Progesterone; Translations: [PROGESTERONE] Drug Allergy 2 [facility] (1 source) No Known Medication Allergies; Translations: [No Known Medication Allergies] Propensity to adverse reactions to drug (disorder) [facility] Medications Current Medications Medication Drug Class(es) Dates Sig (Normalized) Sig (Original) cholecalciferol 0.025 mg oral tablet (2 sources) Vitamin D cholecalciferol (Vitamin D-3) 25 MCG (1000 UT) tablet 1 {tab} by oral route. 0 Active 0.6 ml enoxaparin sodium 100 mg/ml prefilled syringe (20 sources) Low Molecular Weight Heparin Start: 10-31-2023 Enoxaparin Sodium 60 MG/0.6ML solution prefilled syringe 40 mg Daily 10/31/2023 Active Start: 10-31-2023 Enoxaparin Sod ium 60 MG/0.6ML solution prefilled syringe Start: 06-07-2020 [...] Active levothyroxine sodium 0.025 mg oral tablet (7 sources) l-Thyroxine Start: 09-06-2023 End: 12-26-2024 take 1 tablet by mouth before mealtime levothyroxine (Synthroid) 25 MCG tablet Indications: First trimester , Hypothyroidism, unspecified type (CMS/HCC) Take 1 tablet (25 mcg) by mouth in the morning. Take before meals. 90 tablet 12/28/2023 Active norethindrone 0.35 mg oral tablet (2 sources) Start: 08-15-2024 End: 08-15-2025 take 1 tablet by mouth once daily norethindrone (Micronor) 0.35 MG tablet Indications: Abnormal uterine bleeding (AUB) , Menorrhagia with regular cycle Take 1 tablet (0.35 mg) by mouth Daily 28 tablet 11 08/15/2024 08/15/2025 Active ondansetron 4 mg disintegrating oral tablet [...] Active MV-Min-Fe Fum-FA-DH A ( 1 PO) (5 sources) MV-Min- Fe Fum-FA-DHA ( 1 PO) Active MV-Min- Fe Fum-FA-DHA ( 1 PO) 0 [...] Kelechi Gage MD Start : 14-Aug-2019 Active [id number] 200 actuat albuterol 0.09 mg/actuat metered dose inhaler (18 sources) beta2-Adrenergic Agonist Start: 05-19-2019 Ventolin HFA [...] puff every 4 (four) hours if needed. Active take 2 puff(s) by in halation [...] DO Start : 19-Jan-2019 Active BD Disp [place] 27G X 1/2 (19 sources) Start: 10-03-2019 BD Disp Needle s 27G X 1/2 USE DIRECTED. Quantity: 2 Refills: 2 Shahla Healy MD Start : 03-Oct-2019 Active calcium carbonate 1500 mg / cholecalciferol 800 unt oral tablet (4 sources) Vitamin D End: 08-15-2024 Calcium Carb-Cholecalciferol 600-20 MG-MCG tablet orally once a day 08/15/2024 Discontinued chorionic gonadotropin 03128 unt/ml injectable solution (19 sources) Gonadotropin Start: 10-03-2019 Chorionic Gonadotropin 43985 UNIT Intramuscular Solution Reconstituted USE DIRECTED. Quantity: [...] the morning and 2 puffs before bedtime. Active hydrocortisone acetate 25 mg/ml / pramoxine hydrochloride 10 mg/ml rectal cream (2 sources) Corticosteroid Start: 04-17-2024 End: 08-15-2024 pramoxine-hydrocortisone, perianal, (Analpram-HC) 2.5-1 % cream Indications: Other hemorrhoids Insert into the rectum 2 (two) times a day 30 g 1 04/17/2024 08/15/2024 Discontinued letrozole 2.5 mg oral tablet (19 sources) Aromatase Inhibitor Start: 10-03-2019 take 2 tablets by mouth once daily, then take 3-7 tablets by mouth once daily Letrozole 2.5 MG Oral Tablet TAKE 2 TABLET Daily take tablets on cycle days 3-7 please perform urine negative home test prior to starting medications Quantity: 10 Refills: 2 Riley CALDERÓN, Shahla Start : 03-Oct-2019 Active loratadine 10 mg oral capsule (20 sources) Start: 05-17-2019 take 1 capsule by mouth once daily Claritin 10 MG Oral Capsule TAKE 1 CAPSULE Daily Quantity: 30 Refills: 0 Ordered: 17-May-2019 DO Start : 17-May-2019 Active take 1 tablet by mouth in the mo rning loratadine (Claritin) 10 MG tablet Take 10 mg by mouth in the morning. Active metoclopramide 10 mg oral tablet (8 sources) Dopamine-2 Receptor Antagonist Start: 02-07-2024 End: 08-15-2024 take 1 tablet by mouth every six hours metoclopramide (Reglan) 10 MG tablet Indications: Third trimester , Heartburn during in second trimester , Nausea and vomiting during Take 1 tablet (10 mg) by mouth every 6 (six) hours 120 tablet 02/07/2024 08/15/2024 Discontinued Start: 11-30-2023 End: 12-30-2023 take 1 tablet [...] Start : 25-Dec-2019 Active Peak Flow Meter Adrian Rang Device (3 sources) Start: 01-23-2020 Peak Flow Mete r Adrian Rang Device USE DIRECTED. Quantity: 1 Refills: [...] origin] Chronic Genitourinary symptoms and ill-defined conditions (4 sources) Unspecified urinary incontinence; Translations: [Urinary incontinence] Onset: 4 05-10-2024 Chronic Immunizations and screening for infectious disease (20 sources) Patient encounter status; Translations: [Screening examination for venereal disease] Onset: 2 Resolved: 2 Episodic Menstrual disorders (20 sources) Irregular periods; Translations: [Irregular menstrual cycle] 10-01-2024 Chronic Other and unspecified benign neoplasm (20 [...] not applicable or unspecified] 12-27-2023 Episodic Other endocrine disorders (1 source) Polycystic ovary syndrome; Translations: [Polycystic ovarian syndrome] 08-15-2024 Chronic Other female genital disorders (1 source) Abnormal uterine bleeding; Translations: [Abnormal uterine and vaginal bleeding, unspecified] 08-15-2024 Chronic Other nervous system disorders (20 sources) Postoperative [...] Episodic OB-related trauma to perineum and vulva (5 sources) Second degree perineal laceration during delivery; Translations: [Fourth degree perineal laceration during delivery] Onset: 02-25-2022 05-10-2024 Episodic Other complications of ; puerperium affecting [...] Onset: 02-03-2022 Episodic Other connective tissue disease (5 sources) Pain in left foot; Translations: [Pain in left foot] Onset: 03-29-2023 03-29-2023 Episodic Other connective tissue disease (5 sources) Peroneal tendinitis of left lower limb; Translations: [Peroneal tendinitis, left leg] Onset: 03-29-2023 03-29-2023 Episodic Other connective tissue disease (5 sources) Metatarsalgia of left foot; Translations: [Metatarsalgia, left foot] Onset: 03-29-2023 03-29-2023 Episodic Other connective tissue disease (1 source) Separation of muscle (nontraumatic), other site; Translations: [Separation of muscle (nontraumatic), other site] Onset: 05-11-2024 Episodic Other connective tissue disease (3 sources) Diastasis recti; Translations: [Separation of muscle (nontraumatic), other site] Onset: 05-10-2024 05-10-2024 Episodic Other injuries and conditions due to external causes (5 sources) Injury of left ankle; Translations: [Unspecified injury of left ankle, initial encounter] Onset: 03-29-2023 03-29-2023 Episodic Other non-traumatic joint disorders (5 sources) Sinus tarsi syndrome of left ankle; Translations: [Pain in left ankle and joints of left foot] Onset: 03-29-2023 03-29-2023 Episodic Other and delivery including normal (20 sources) test positive; Translations: [] Onset: 02-24-2022 Resolved: 03-27-2024 Episodic Residual codes; unclassified (1 source) 38 [...] weeks gestation of ] Sprains and strains (7 sources) Sprain of left ankle; Translations: [Sprain of unspecified ligament of left ankle, initial encounter] Onset: 02-27-2023 Episodic Unclassified (20 sources) Patient encounter status; Translations: [Fertility testing] NEGATED: Highlighted row has not occurred!Residual codes; unclassified (20 sources) Disease Episodic Results Test Name Value Interpretation Reference Range Facility ALL CBC WITH AUTO DIFFon BASOPHILS ABSOLUTE AUTO 0.1 [facility] Basophils/100 WBC (Bld) 1.0 % 0.2 - 2.0 % [facility] Eosinophils/100 WBC (Bld) 5.9 % 0.9 - 7.0 % [facility] Erythrocyte distribution width (RBC) [Ratio] 13.8 % 11.0 - 15.0 % [facility] Hematocrit (Bld) [Volume fraction] 45.9 % 36.0 - 48.0 % [facility] Hemoglobin (Bld) [Mass/Vol] 15.1 g/dL 12.0 - 16.0 g/dL [facility] IMMATURE GRANULOCYTES ABS AUTO 0.02 [facility] Immature granulocytes/100 WBC (Bld) 0.2 % 0.0 - 0.5 % [facility] Interpretation and review of laboratory results Abnormal [facility] LYMPHOCYTES ABSOLUTE AUTO 3.1 [facility] Lymphocytes/100 WBC (Bld) 29.3 % 20.5 - 60.0 % [facility] MCH (RBC) [Entitic mass] 29.9 pg 26.7 - 34.0 pg [facility] MCHC (RBC) [Mass/Vol] 32.9 g/dL 29.9 - 35.2 g/dL [facility] MCV (RBC) [Entitic vol] 90.9 fL 81.0 - 99.0 fL [facility] MONOCYTES ABSOLUTE AUTO 0.4 [facility] Monocytes/100 WBC (Bld) 4.1 % 1.7 - 12.0 % [facility] NEUTROPHILS ABSOLUTE AUTO 6.2 [facility] Neutrophils/100 WBC (Bld) 59.5 % 43.0 - 75.0 % [facility] Platelet mean volume (Bld) [Entitic vol] 9.2 fL Low 9.5 - 13.5 [facility]L [facility] PLT 388 [facility] RBC 5.05 [facility] WBC 10.5 [facility] Pulmonology Office/Clinic No gabino 01-10-2024 Pulmonology Office/Clinic Note Chief Complaint 1yr [...] refills. Continue with anticoagulation as prescribed by BURR PICKER, patient is currently 30 weeks gestation. Follow-up [...] embolism Historical No qualifying data Procedure/Surgical History [place] Teeth Removal (2005) IVF (11/15/2018) Medications Dulera [...] Link Zoya PERKINS 01/10/24 12:40 EST Normal [facility] Phone Note - Heme Onc-medica tion questionon 07-12-2023 Phone Note - Heme Onc-medication question Phone Call Information: Patient Demographics: Name: KIARA ASHLEY Date: 1990 Address: [address] [place] [address] Date and Time: 12-Jul-2023 09:31 Caller Information: call from Call From: patient Caller Name: Kiara Primary Phone Number: [phone] Reason for Call: Reason for Callmedication question [...] asked for script to be sent to [facility]. Script sent. Pt had no [...] 09:57 by Harmony Ross (N MGR) Normal [facility] XR ANKLE LEFT (MIN 3 VIEWS)o n [...] Dario William MD 02/27/23 Final result Normal [facility] 1. No acute osseous abnormality involving the left ankle. [facility] EXAMINATION: THREE XRAY VIEWS OF THE LEFT ANKLE 02/27/2023 11:46 am COMPARISON: None. HISTORY: ORDERING SYSTEM PROVIDED HISTORY: pain, swelling TECHNOLOGIST PROVIDED HISTORY: pain, swelling FINDINGS: The bone mineralization is within normal limits. The ankle mortise is stable. No acute fractures or dislocations are seen. There is no soft tissue swelling. [facility] Dario William MD - [...] acute osseous abnormality involving the left ankle. [facility] Phone: Radiology Study observation (narrative) [facility] Phone: XR ANKLE LEFT (MIN 3 VIEWS)O rdered By: Dario William on 02-27-2023 [facility] Phone: PAP ACOG PANEL 2: 30 to 65on 01-19-2023 . . Normal [facility] Comment on above: Result Comment: Perf ormed at: WB Performed By: #### [id number] #### [facility] [address] [place] [address] Dr. Claire Mayes Age Gdln ACOG Testing 30-65 Normal [facility] Comment on above: Performed By: #### [id number] #### [facility] [address] [address] [address] Claire Mayes DIAGNOSIS: Comment Normal [facility] Comment on above: Result Comment: NEGA TIVE FOR INTRAEPITHELIAL LESION OR MALIGNANCY. Performed at: WB Performed By: #### [id number] #### [facility] [address] [address] [address] Claire Mayes HPV Aptima Negative Normal Negative [facility] Comment on above: Result Comment: This nucleic acid amplification test detects fourteen high-risk HPV types (16,18,31,33,35,39,45,51,52,56,58,59,66,68) without differentiation. Performed at: =G Performed By: #### [id number] #### [facility] [address] [place] [address] Dr. Claire Mayes HPV Genotype Reflex Comment Normal [facility] Comment on above: Result Comment: Crit eria not met, HPV Genotype not performed. Performed at: WB Performed By: #### [id number] #### [facility] [address] [place] [address] Dr. Claire Mayes Methodology: Comment Normal [facility] Comment on above: Result Comment: This liquid based ThinPrep(R) pap test was screened with the use of an image guided system. Performed at: WB Performed By: #### [id number] #### [facility] [address] [place] [address] Dr. Claire Mayes Note: Comment Normal [facility] Comment on above: Result Comment: The Pap smear is a screening test designed to aid in the detection of premalignant and malignant conditions of the uterine cervix. It is not a diagnostic procedure and should not be used as the sole means of detecting cervical cancer. Both false-positive and false-negative reports do occur. . Performed at: WB Performed By: #### [id number] #### [facility] [address] [place] [address] Dr. Claire Mayes Performed by: Comment Normal [facility] Comment on above: Result Comment: Sherlyn Wright, Snow Blower (ASCP) Performed at: WB Performed By: #### [id number] #### [facility] [address] [place] [address] Dr. Claire Mayes Specimen adequacy: Comment Normal [facility] Comment on above: Result Comment: Sati sfactory for evaluation. No endocervical component is identified. Performed at: WB Performed By: #### [id number] #### [facility] [address] [place] [address] Dr. Claire Mayes CBC with Diffon 09-22-2022 Abs. Basophil 0.03 k/uL Normal 0.00-0.20 [facility] Comment on above: Performed By: #### L BJ BUCK, CP #### [facility] [address] [place] [address] Plastics Scientist: Jesse Curry MD Abs.Imm.Granulocy te 0.04 k/uL Normal 0.00-0.30 [facility] Comment on above: Performed By: #### L BJ BUCK, CP #### [facility] [address] [place] [address] Dr. [place], [place] [address] Plastics Scientist: Jesse Curry MD Abs.Neutrophil (Seg) 12.54 k/uL High 1.50-8.10 [facility] Comment on above: Performed By: #### L IP, CDP, CP #### [address] [place], [place] [address] Plastics Scientist: Jesse Curry MD Basophils/100 WBC (Bld) 0 % Normal 0-2 [facility] Comment on above: Performed By: #### L IP, CDP, CP #### [address] [place], [place] [address] Plastics Scientist: eJsse Curry MD Eosinophils (Bld) [#/Vol] 0.16 10*3/uL Normal 0.00-0.44 [facility] Comment on above: Performed By: #### L IP, CDP, CP #### [address] [place], [place] [address] Plastics Scientist: Jesse Curry MD Eosinophils/100 WBC (Bld) 1 % Normal 1-4 [facility] Comment on above: Performed By: #### L IP, CDP, CP #### [address] [place], [facility] Plastics Scientist: Jesse Curry MD Erythrocyte distribution width (RBC) [Ratio] 13.6 % Normal 11.8-14.4 [facility] Comment on above: Performed By: #### L IP, CDP, CP #### [address] [place], [facility] Plastics Scientist: Jesse Curry MD Hematocrit (Bld) [Volume fraction] 46.4 % Normal 36.3-47.1 [facility] Comment on above: Performed By: #### L IP, CDP, CP #### [address] [place], [place] [id number] Plastics Scientist: Jesse Curry MD Hemoglobin (Bld) [Mass/Vol] 15.6 g/dL High 11.9-15.1 [facility] Comment on above: Performed By: #### L IP, CDP, CP #### [address] [place], [place] [id number] Plastics Scientist: Jesse Curry MD Immature granulocytes/100 WBC (Bld) 0 % Normal 0 [facility] Comment on above: Performed By: #### L IP, CDP, CP #### [address] [place], [facility] Plastics Scientist: Jesse Curry MD Lymphocytes (Bld) [#/Vol] 0.98 10*3/uL Low 1.10-3.70 [facility] Comment on above: Performed By: #### L IP, CDP, CP #### [address] [place], [facility] Plastics Scientist: Jesse Curry MD Lymphocytes/100 WBC (Bld) 7 % Low 24-43 [facility] Comment on above: Performed By: #### L IP, CDP, CP #### [address] [place], [facility] Plastics Scientist: Jesse Curry MD MCH (RBC) [Entitic mass] 30.4 pg Normal 25.2-33.5 [facility] Comment on above: Performed By: #### L IP, CDP, CP #### [address] [place], [place] [id number] Plastics Scientist: Jesse Curry MD MCHC (RBC) [Mass/Vol] 33.6 g/dL Normal 28.4-34.8 [facility] Comment on above: Performed By: #### L IP, CDP, CP #### [address] [place] [facility] Plastics Scientist: Jesse Curry MD MCV (RBC) [Entitic vol] 90.3 fL Normal 82.6-102.9 [facility] Comment on above: Performed By: #### L IP, CDP, CP #### [address] [place] [address] Plastics Scientist: Jesse Curry MD Monocytes (Bld) [#/Vol] 0.58 10*3/uL Normal 0.10-1.20 [facility] Comment on above: Performed By: #### L IP, CDP, CP #### [address] [place] [address] Plastics Scientist: Jesse Curry MD Monocytes/100 WBC (Bld) 4 % Normal 3-12 [facility] Comment on above: Performed By: #### L IP CDP, CP #### [address] [place], [facility] Plastics Scientist: Jesse Curry MD Neutrophil (Seg) 88 % High 36-65 [facility] Comment on above: Performed By: #### L CIELO CDP, CP #### [address] [place], [facility] Plastics Scientist: Jesse Curry MD NRBC Automated 0.0 per 100 WBC Normal 0.0 [facility] Comment on above: Performed By: #### L IP, CDP, CP #### [address] [place], [facility] Plastics Scientist: Jesse Curry MD Platelet mean volume (Bld) [Entitic vol] 9.9 fL Normal 8.1-13.5 [facility] Comment on above: Performed By: #### L IP, CDP, CP #### [address] [place] [address] Plastics Scientist: Jesse Curry MD Platelets (Bld) [#/Vol] 299 10*3/uL Normal 138-453 [facility] Comment on above: Performed By: #### L IPBJ, CP #### [facility] [address] [place] [address] Plastics Scientist: Jesse Curry MD RBC (Bld) [#/Vol] 5.14 10*6/uL High 3.95-5.11 [facility] Comment on above: Performed By: #### L IPBJ, CP #### [facility] [address] [place] [address] Plastics Scientist: Jesse Curry MD WBC (Bld) [#/Vol] 14.3 10*3/uL High 3.5-11.3 [facility] Comment on above: Performed By: #### L BJ BUCK, CP #### [facility] [address] [place] [id number] Plastics Scientist: Jesse Curry MD CT ABDOMEN PELVIS W [...] by: Miguel A Maldonado DO Signed by: Migue lA Maldonado DO 09/22/22 Final result Normal [facility] Comp Metabolic Profon 2021 Albumin [Mass/Vol] 4.7 g/dL Normal 3.5-5.2 [facility] Comment on above: Performed By: #### L IP CDP, CP #### [facility] [address] [place] [address] Dr. [place] [address] Plastics Scientist: Jesse Curry MD Albumin/Glob Ratio 2.0 Normal 1.0-2.5 [facility] Comment on above: Performed By: #### L IP CDP, CP #### [facility] [address] [place] [address] [place] [address] Plastics Scientist: Jesse Curry MD Alkaline Phos 77 U/L Normal 35-104 [facility] Comment on above: Performed By: #### L IP CDP, CP #### [facility] [address] [place] [address] [place] [address] Plastics Scientist: Jesse Curry MD ALT [Catalytic activity/Vol] 10 U/L Normal 5-33 [facility] Comment on above: Performed By: #### L IP, CDP, CP #### [facility] [address] [place] [address] [place] [address] Plastics Scientist: Jesse Curry MD Anion gap [Moles/Vol] 12 mmol/L Normal 9-17 [facility] Comment on above: Performed By: #### L IP, CDP, CP #### [facility] [address] [place], [place] [id number] Plastics Scientist: Jesse Curry MD AST [Catalytic activity/Vol] 14 U/L Normal <32 [facility] Comment on above: Performed By: #### L IP, CDP, CP #### [facility] [address] [place], [place] [id number] Plastics Scientist: Jesse Curry MD Bilirubin [Mass/Vol] 0.6 mg/dL Normal 0.3-1.2 [facility] Comment on above: Performed By: #### L IP, CDP, CP #### [facility] [address] [place] [address] Dr[place], [place] [id number] Plastics Scientist: Jesse Curry MD BUN/CRE Ratio 31 High 9-20 [facility] Comment on above: Performed By: #### L IP, CDP, CP #### [facility] [address] [place] [address] Dr. [place], [place] [id number] Plastics Scientist: Jesse Curry MD Calcium [Mass/Vol] 9.8 mg/dL Normal 8.6-10.4 [facility] Comment on above: Performed By: #### L IP, CDP, CP #### [address] [place], [place] 8288683 Plastics Scientist: Jesse Curry MD Chloride [Moles/Vol] 104 mmol/L Normal 98-107 [facility] Comment on above: Performed By: #### L IP, CDP, CP #### [facility] [address] [place], [place] [id number] Plastics Scientist: Jesse Curry MD CO2 [Moles/Vol] 22 mmol/L Normal 20-31 [facility] Comment on above: Performed By: #### L IP, CDP, CP #### [facility] [address] [place] [address] [place], [place] [id number] Plastics Scientist: Jesse Curry MD Creatinine [Mass/Vol] 0.85 mg/dL Normal 0.50-0.90 [facility] Comment on above: Performed By: #### L BJ BUCK, CP #### [facility] [address] [place] [address] Plastics Scientist: Jesse Curry MD GFR/1.73 sq M.predicted among non-blacks MDRD (S/P/Bld) [Vol rate/Area] mL/min/{1.73_m2} Normal >60 [facility] Comment on above: Result Comment: Effective [...] By: #### L BJ BUCK, CP #### [address] [place] [address] Plastics Scientist: Jesse Curry MD Glucose [Mass/Vol] 109 mg/dL High 70-99 [facility] Comment on above: Performed By: #### L BJ BUCK, CP #### [address] [place] [address] Plastics Scientist: Jesse Curry MD Potassium [Moles/Vol] 4.0 mmol/L Normal 3.7-5.3 [facility] Comment on above: Performed By: #### L BJ BUCK, CP #### [address] [place] [address] Plastics Scientist: Jesse Curry MD Protein [Mass/Vol] 7.1 g/dL Normal 6.4-8.3 [facility] Comment on above: Performed By: #### L CIELO CDP, CP #### [address] [place] [address] Plastics Scientist: Jesse Curry MD Sodium [Moles/Vol] 138 mmol/L Normal 135-144 [facility] Comment on above: Performed By: #### L BJ BUCK, CP #### [facility] [address] [place] [address] Plastics Scientist: Jesse Curry MD Urea nitrogen [Mass/Vol] 26 mg/dL High 6-20 [facility] Comment on above: Performed By: #### L BJ BUCK, CP #### [facility] [address] [place] [address] Plastics Scientist: Jesse Curry MD HCG, ,Urineon 09-22 Beta HCG ( test) Ql (U) Negative Normal NEG [facility] Comment on above: Result Comment: Spec imens with hCG levels near the threshold of the test (25 mIU/mL) may give a negative or indeterminate result. In such cases, another test should be performed with a new specimen in 48-72 hours. If early is suspected clinically in this setting, correlation with quantitative serum b-hCG level is suggested. [facility] has confirmed the use of plasma for this test. This has not been cleared or approved by the U.[place]. Food and Drug Administration. The FDA has determined that such clearance is not necessary. Performed By: #### U HCG #### [facility] [address] [place] [address] [place] [address] Plastics Scientist: Jesse Curry MD Lactic Acidon 7 Lactate [Moles/Vol] 1.8 mmol/L Normal 0.5-2.2 [facility] Comment on above: Performed By: #### L ACTIC #### [facility] [address] [place] [address] Plastics Scientist: Jesse Curry MD Lipaseon 7 Lipase [Catalytic activity/Vol] 39 U/L Normal 13-60 [facility] Comment on above: Performed By: #### L BJ BUCK, CP #### [facility] [address] [place] [address] [place], [place] [id number] Plastics Scientist: Jesse Curry MD UA w/Reflex Cultureon 2021 Bilirubin, SemiQt,Ur Negative Normal NEG [facility] Comment on above: Performed By: #### U MICAO, UAX #### [address] [place], [place] [id number] Plastics Scientist: Jesse Curry MD Blood, Urine Negative Normal NEG [facility] Comment on above: Performed By: #### U MICAO, UAX #### [address] [place], [place] [id number] Plastics Scientist: Jesse Curry MD Clarity (U) Clear Normal CLEAR [facility] Comment on above: Performed By: #### U MICAO, UAX #### [address] [place], [place] [id number] Plastics Scientist: Jesse Curyr MD Color (U) Yellow Normal YEL [facility] Comment on above: Performed By: #### U MICAO, UAX #### [address] [place], [place] [id number] Plastics Scientist: Jesse Curry MD Glucose Ql (U) Negative Normal NEG [facility] Comment on above: Performed By: #### U MICAO, UAX #### [address] [place], [place] [id number] Plastics Scientist: Jesse Curry MD Ketones Ql (U) Negative Normal NEG [facility] Comment on above: Performed By: #### U MICAO, UAX #### [address] [place], [place] [id number] Plastics Scientist: Jesse Curry MD Leukocyte esterase Test strip Ql (U) Negative Normal NEG [facility] Comment on above: Performed By: #### U MICAO, UAX #### [facility] [address] [place], [place] [id number] Plastics Scientist: Jesse Curry MD Nitrite,Ur Negative Normal NEG [facility] Comment on above: Performed By: #### U MICAO, UAX #### [facility] [address] [place], [place] [id number] Plastics Scientist: Jesse Curry MD PH,Ur 8.0 Normal 5.0-9.0 [facility] Comment on above: Performed By: #### U MICAO, UAX #### [facility] [address] [place], [place] [id number] Plastics Scientist: Jesse Curry MD Protein Ql (U) Negative Normal NEG [facility] Comment on above: Performed By: #### U MICAO, UAX #### [facility] [address] [place] [address] Dr. [place], [facility] Plastics Scientist: Jesse Curry MD Spec. [place],Ur 1.020 Normal 1.010-1.020 [facility] Comment on above: Performed By: #### U MICAO, UAX #### [address] [place], [place] 6332483 Plastics Scientist: Jesse Curry MD Urobilinogen,Ur Normal Normal NORM [facility] Comment on above: Performed By: #### U MICAO, UAX #### [facility] [address] [place] [address] Dr. [place], [place] [id number] Plastics Scientist: Jesse Curry MD Urinalysis,Microon 2 Bacteria TRACE Abnormal NONE [facility] Comment on above: Performed By: #### U MICAO, UAX #### [facility] [address] [place] [address] Dr. [place], [place] 3684383 Plastics Scientist: Jesse Curry MD Epithelial cells LM Ql (Urine sed) 0 TO 2 Normal 0-25 [facility] Comment on above: Performed By: #### U MICAO, UAX #### [facility] [address] [place] [address] Plastics Scientist: Jesse Curry MD Urine RBC's None Normal 0-2 [facility] Comment on above: Performed By: #### U MICAO, UAX #### [facility] [address] [place] [address] Plastics Scientist: Jesse Curry MD Urine WBC's 0 TO 2 Normal 0-5 [facility] Comment on above: Performed By: #### U MICAO, UAX #### [facility] [address] [place] [address] Plastics Scientist: Jesse Curry MD CBC AUTO DIFFon 02-20-2022 BASO # 0.1 103/ul Normal 0.0-0.1 [facility] Comment on above: Performed By: #### C BC #### [facility] [address] [place] [address] Dr. Claire Mayes Basophils/100 WBC (Bld) 0.8 % Normal 0.2-2.0 [facility] Comment on above: Performed By: #### C BC #### [facility] [address] [place] [address] Dr. Claire Mayes EO # 0.2 103/ul Normal 0.0-0.7 [facility] Comment on above: Performed By: #### C BC #### [facility] [address] [place] [address] Dr. Claire Mayes Eosinophils/100 WBC (Bld) 0.9 % Normal 0.9-7.0 [facility] Comment on above: Performed By: #### C BC #### [facility] [address] [place] [address] Dr. Claire Mayes Erythrocyte distribution width (RBC) [Ratio] 15.0 % Normal 11.0-15.0 [facility] Comment on above: Performed By: #### C BC #### [facility] [address] [place] [address] Dr. Claire Mayes Hematocrit (Bld) [Volume fraction] 31.3 % Critically low 36.0-48.0 [facility] Comment on above: Performed By: #### C BC #### [facility] [address] [place] [address] Dr. Claire Mayes Hemoglobin (Bld) [Mass/Vol] 10.3 g/dL Critically low 12.0-16.0 [facility] Comment on above: Performed By: #### C BC #### [facility] [address] [place] [address] Dr. Claire Mayes IG # 0.21 10e3/ul Critically high 0.00-0.03 [facility] Comment on above: Performed By: #### C BC #### [facility] [address] [place] [address] Dr. Claire Mayes IG % 1.3 % Critically high 0.0-0.5 [facility] Comment on above: Performed By: #### C BC #### [facility] [address] [place] [address] Dr. Claier Mayes LYMPH # 2.1 103/ul Normal 1.2-3.8 [facility] Comment on above: Performed By: #### C BC #### [facility] [address] [place] [address] Dr. Claire Mayes Lymphocytes/100 WBC (Bld) 12.6 % Critically low 20.5-60.0 [facility] Comment on above: Performed By: #### C BC #### [facility] [address] [place] [address] Dr. Claire Mayes MANUAL DIFF REQ NO Normal [facility] Comment on above: Performed By: #### C BC #### [facility] [address] [place] [address] Dr. Claire Mayes MCH (RBC) [Entitic mass] 29.8 pg Normal 26.7-34.0 [facility] Comment on above: Performed By: #### C BC #### [facility] [address] [place] [address] Dr. Claire Mayes MCHC (RBC) [Mass/Vol] 32.9 g/dL Normal 29.9-35.2 [facility] Comment on above: Performed By: #### C BC #### [facility] [address] [place] [address] Dr. Claire Mayes MCV (RBC) [Entitic vol] 90.5 fL Normal 81.0-99.0 [facility] Comment on above: Performed By: #### C BC #### [facility] [address] [place] [address] Dr. Claire Mayes MONO # 0.8 103/ul Normal 0.3-0.8 [facility] Comment on above: Performed By: #### C BC #### [facility] [address] [place] [address] Dr. Claire Mayes Monocytes/100 WBC (Bld) 5.1 % Normal 1.7-12.0 [facility] Comment on above: Performed By: #### C BC #### [facility] [address] [place] [address] Dr. Claire Mayes NEUT # 13.2 103/ul Critically high 1.4-6.5 [facility] Comment on above: Performed By: #### C BC #### [facility] [address] [place] [address] Dr. Claire Mayes Neutrophils/100 WBC (Bld) 79.3 % Critically high 43.0-75.0 [facility] Comment on above: Performed By: #### C BC #### [facility] [address] [place] [address] Dr. Claire Mayes Platelet mean volume (Bld) [Entitic vol] 10.4 fL Normal 9.5-13.5 [facility] Comment on above: Performed By: #### C BC #### [facility] [address] [place] [address] Dr. Claire Mayes PLT 233 103/ul Normal 150-450 [facility] Comment on above: Performed By: #### C BC #### [facility] [address] [place] [address] Dr. Claire Mayes RBC 3.46 106/ul Critically low 4.20-5.40 [facility] Comment on above: Performed By: #### C BC #### [facility] [address] [place] [address] Dr. Claire Mayes WBC 16.6 103/ul Critically high 4.0-11.0 [facility] Comment on above: Performed By: #### C BC #### [facility] [address] [place] [address] Dr. Claire Mayes CBC AUTO DIFFon 02-18-2022 BASO # 0.1 103/ul Normal 0.0-0.1 [facility] Comment on above: Performed By: #### C BC #### [facility] [address] [place] [address] Dr. Claire Mayes Basophils/100 WBC (Bld) 0.7 % Normal 0.2-2.0 [facility] Comment on above: Performed By: #### C BC #### [facility] [address] [place] [address] Dr. Claire Mayes EO # 0.2 103/ul Normal 0.0-0.7 [facility] Comment on above: Performed By: #### C BC #### [facility] [address] [place] [address] Dr. Claire Mayes Eosinophils/100 WBC (Bld) 1.2 % Normal 0.9-7.0 [facility] Comment on above: Performed By: #### C BC #### [facility] [address] [place] [address] Dr. Claire Mayes Erythrocyte distribution width (RBC) [Ratio] 15.0 % Normal 11.0-15.0 [facility] Comment on above: Performed By: #### C BC #### [facility] [address] [place] [address] Dr. Claire Mayes Hematocrit (Bld) [Volume fraction] 35.1 % Critically low 36.0-48.0 [facility] Comment on above: Performed By: #### C BC #### [facility] [address] [place] [address] Dr. Claire Mayes Hemoglobin (Bld) [Mass/Vol] 11.8 g/dL Critically low 12.0-16.0 [facility] Comment on above: Performed By: #### C BC #### [facility] [address] [place] [address] Dr. Claire Mayes IG # 0.30 10e3/ul Critically high 0.00-0.03 [facility] Comment on above: Performed By: #### C BC #### [facility] [address] [place] [address] Dr. Claire Mayes IG % 1.9 % Critically high 0.0-0.5 [facility] Comment on above: Performed By: #### C BC #### [facility] [address] [place] [address] Dr. Claire Mayes LYMPH # 2.9 103/ul Normal 1.2-3.8 [facility] Comment on above: Performed By: #### C BC #### [facility] [address] [place] [address] Dr. Claire Mayes Lymphocytes/100 WBC (Bld) 18.5 % Critically low 20.5-60.0 [facility] Comment on above: Performed By: #### C BC #### [facility] [address] [place] [address] Dr. Claire Mayes MANUAL DIFF REQ NO Normal [facility] Comment on above: Performed By: #### C BC #### [facility] [address] [place] [address] Dr. Claire Mayes MCH (RBC) [Entitic mass] 30.2 pg Normal 26.7-34.0 [facility] Comment on above: Performed By: #### C BC #### [facility] [address] [place] [address] Dr. Claire Mayes MCHC (RBC) [Mass/Vol] 33.6 g/dL Normal 29.9-35.2 [facility] Comment on above: Performed By: #### C BC #### [facility] [address] [place] [address] Dr. Claire Mayes MCV (RBC) [Entitic vol] 89.8 fL Normal 81.0-99.0 [facility] Comment on above: Performed By: #### C BC #### [facility] [address] [address] [address] Claire Mayes MONO # 0.7 103/ul Normal 0.3-0.8 [facility] Comment on above: Performed By: #### C BC #### [facility] [address] [address] [address] Claire Mayes Monocytes/100 WBC (Bld) 4.7 % Normal 1.7-12.0 [facility] Comment on above: Performed By: #### C BC #### [facility] [address] [place] [address] Dr. Claire Mayes NEUT # 11.3 103/ul Critically high 1.4-6.5 [facility] Comment on above: Performed By: #### C BC #### [facility] [address] [place] [address] Dr. Claire Mayes Neutrophils/100 WBC (Bld) 73.0 % Normal 43.0-75.0 [facility] Comment on above: Performed By: #### C BC #### [facility] [address] [place] [address] Dr. Claire Mayes Platelet mean volume (Bld) [Entitic vol] 10.8 fL Normal 9.5-13.5 [facility] Comment on above: Performed By: #### C BC #### [facility] [address] [place] [address] Dr. Claire Mayes PLT 233 103/ul Normal 150-450 [facility] Comment on above: Performed By: #### C BC #### [facility] [address] [place] [address] Dr. Claire Maeys RBC 3.91 106/ul Critically low 4.20-5.40 [facility] Comment on above: Performed By: #### C BC #### [facility] [address] [place] [address] Dr. Claire Mayes WBC 15.5 103/ul Critically high 4.0-11.0 [facility] Comment on above: Performed By: #### C BC #### [facility] [address] [place] [address] Dr. Claire Mayes Covid-19 PCR ([facility])on SARS-CoV-2 (COVID-19) RNA FERDIN[place]+probe Ql (Unsp spec) Not detected Normal NOT DETECTED [facility] Comment on above: Result Comment: When [...] for this test is supported by the [employer] of Health and Human Service's declaration that [...] used). Performed By: #### C VDTBH #### [facility] [address] [place] [address] Dr. Claire Mayes DRUG SCREEN RAPID (URINE)on 02-18-2022 AMP Negative Normal NEGATIVE [facility] Comment on above: Performed By: #### D RUGRPD #### [facility] [address] [place] [address] Dr. Claire Mayes BAR Negative Normal NEGATIVE [facility] Comment on above: Performed By: #### D RUGRPD #### [facility] [address] [place] [address] Dr. Claire Mayes BUP Negative Normal NEGATIVE [facility] Comment on above: Performed By: #### D RUGRPD #### [facility] [address] [place] [address] Dr. Claire Mayes BZO Negative Normal NEGATIVE [facility] Comment on above: Performed By: #### D RUGRPD #### [facility] [address] [place] [address] Dr. Claire Mayes KIT Negative Normal NEGATIVE [facility] Comment on above: Performed By: #### D RUGRPD #### [facility] [address] [place] [address] Dr. Claire Mayes CUT-OFFS SEE BELOW Normal [facility] Comment on above: Result Comment: AMP [...] ng/mL Performed By: #### D RUGRPD #### [facility] [address] [place] [address] Dr. Claire Mayes DRUG CUT HEADER DRUG CLASS TEST SYST EM CUT-OFF CONCENTRATIONS ARE FOLLOWS: Normal [facility] Comment on above: Performed By: #### D RUGRPD #### [facility] [address] [place] [address] Dr. Claire Mayes mAMP Negative Normal NEGATIVE [facility] Comment on above: Performed By: #### D RUGRPD #### [facility] [address] [place] [address] Dr. Claire Mayes MTD Negative Normal NEGATIVE [facility] Comment on above: Performed By: #### D RUGRPD #### [facility] [address] [place] [address] Dr. Claire Mayes OPI Negative Normal NEGATIVE [facility] Comment on above: Performed By: #### D RUGRPD #### [facility] [address] [place] [address] Dr. Claire aMyes OXY Negative Normal NEGATIVE [facility] Comment on above: Performed By: #### D RUGRPD #### [facility] [address] [address] [address] Claire Mayes PCP Negative Normal NEGATIVE [facility] Comment on above: Performed By: #### D RUGRPD #### [facility] [address] [address] [address] Claire Mayes PPX Negative Normal NEGATIVE [facility] Comment on above: Performed By: #### D RUGRPD #### [facility] [address] [address] [address] Claire Mayes TCA Negative Normal NEGATIVE [facility] Comment on above: Performed By: #### D RUGRPD #### [facility] [address] [address] [address] Claire Mayes THC Negative Normal NEGATIVE [facility] Comment on above: Performed By: #### D RUGRPD #### [facility] [address] [address] [address] Claire Mayes TYPE AND SCREENon 02-18-2022 TYPE AND SCREEN Negative Normal [facility] Comment on above: Performed By: #### T NS #### [facility] [address] [address] [address] Claire Mayes US PREG BIOPHY W [...] JESSE THOMAS Date: 2022-02-17 14:27 Normal [facility] US PREG BIOPHY W NON STRESSo [...] by: BLU FELIPE Date: 2022-02-10 16:40 Normal [facility] GROUP B STREP CULTUREon 01-14 S. agalactiae Ag Ql (Unsp spec) Culture Observations: Beta Strep called to [place] Lange at office 02/04/22 @[address] [place] [address] Isolate 1 Streptococcus agalactiae Heavy growth of ORGANISM 1 Streptococcus agalactiae ANTIBIOTIC M.I.C RX STATUS Benzylpenicillin <=0.06 S F Ampicillin <=0.25 S F Cefotaxime <=0.12 S F Ceftriaxone <=0.12 S F Levofloxacin 0.5 S F Erythromycin 2 R F Clindamycin <=0.25 S F Linezolid <=2 S F Vancomycin 0.5 S F Tetracycline >=16 R F Normal [facility] Comment on above: Performed By: #### G BSCX #### [facility] [address] [place] [address] Dr. 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 Verbal consent obtained for telemedicine visit. History of Present IllnessIVF Consult: Patient is [...] contour on HSG - images reviewed from [facility] 08/2018 Uterine Cavity Evaluation: Normal uterine [...] Peak E2 1871--> IM P4--> successful IUP [facility] Hx: LMP: 05/29/21 Menstrual cycles: Have been [...] year: 2.8 cc 125 mil/mL 69% motility LHP=475 million (recent IUI sample) Morph from original SA was 2.8% Active Problems Problems 16 weeks gest (more content not included)... Normal [facility] CBC AND DIFFERENTIALon 08-06 % AUTOMATED IMMATURE GRAN 0.3 % Normal 0.0 - 0.9 [facility] Comment on above: Result Comment: Graciela ture Granulocyte Count (IG) includes promyelocytes, myelocytes and metamyelocytes but does not include bands. Percent differential counts (%) should be interpreted in the context of the absolute cell counts (cells/L). Performed By: #### C BCDF #### [address] [place] [address] Basophils (Bld) [#/Vol] 0.09 10*3/uL Normal 0.00 - 0.10 [facility] Comment on above: Performed By: #### C BCDF #### [address] [place] [address] Basophils/100 WBC (Bld) 0.9 % Normal 0.0 - 2.0 [facility] Comment on above: Performed By: #### C BCDF #### [address] [place] [address] Eosinophils (Bld) [#/Vol] 0.23 10*3/uL Normal 0.00 - 0.70 [facility] [place] Comment on above: Performed By: #### C BCDF #### [address] [place] [address] Eosinophils/100 WBC (Bld) 2.4 % Normal 0.0 - 6.0 [facility] [place] Comment on above: Performed By: #### C BCDF #### [address] [place] [address] Erythrocyte distribution width (RBC) [Ratio] 14.3 % Normal 11.5 - 14.5 [facility] [place] Comment on above: Performed By: #### C BCDF #### [address] [place] [address] Hematocrit (Bld) [Volume fraction] 40.4 % Normal 36.0 - 46.0 [facility] [place] Comment on above: Performed By: #### C BCDF #### [address] [place] [address] Hemoglobin (Bld) [Mass/Vol] 12.9 g/dL Normal 12.0 - 16.0 [facility] [place] Comment on above: Performed By: #### C BCDF #### [address] [place] [address] Lymphocytes (Bld) [#/Vol] 2.44 10*3/uL Normal 1.20 - 4.80 [facility] [place] Comment on above: Performed By: #### C BCDF #### [address] [place] [address] Lymphocytes/100 WBC (Bld) 25.7 % Normal 13.0 - 44.0 [facility] [place] Comment on above: Performed By: #### C BCDF #### [address] [place] [address] MCHC (RBC) [Mass/Vol] 31.9 g/dL Low 32.0 - 36.0 [facility] [place] Comment on above: Performed By: #### C BCDF #### [address] [place] [address] MCV (RBC) [Entitic vol] 88 fL Normal 80 - 100 [facility] [place] Comment on above: Performed By: #### C BCDF #### [address] [place] [address] Monocytes (Bld) [#/Vol] 0.55 10*3/uL Normal 0.10 - 1.00 [facility] [place] Comment on above: Performed By: #### C BCDF #### [address] [place] [address] Monocytes/100 WBC (Bld) 5.8 % Normal 2.0 - 10.0 [facility] [place] Comment on above: Performed By: #### C BCDF #### [address] [place] [address] Neutrophils (Bld) [#/Vol] 6.15 10*3/uL Normal 1.20 - 7.70 [facility] [place] Comment on above: Performed By: #### C BCDF #### [address] [place] [address] Neutrophils/100 WBC (Bld) 64.9 % Normal 40.0 - 80.0 [facility] [place] Comment on above: Performed By: #### C BCDF #### [address] [place] [address] Platelets (Bld) [#/Vol] 410 10*3/uL Normal 150 - 450 [facility] [place] Comment on above: Performed By: #### C BCDF #### [address] [place] [address] RBC (Bld) [#/Vol] 4.58 x10E12/L Normal 4.00 - 5.20 [facility] [place] Comment on above: Performed By: #### C BCDF #### [address] [place] [address] WBC (Bld) [#/Vol] 9.5 10*3/uL Normal 4.4 - 11.3 [facility] [place] Comment on above: Performed By: #### C BCDF #### [address] [place] [address] COAL CRUSHER OPERATOR - Visiton 08-06-2020 COAL CRUSHER OPERATOR - Visit Chief Complaint The patient [...] with LMWH and has follow-up with her Electrical Electronics Technician 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 Reports her asthma is [...] or homicidal ideation Vitals Vital Signs Recorded: [id number] 01:08PM Heart Rate62 Qrhinbip875 Bzoqriyoj02 Height5 ft 2 in Vrwmtt604 lb BMI Aqatqfjdqj18.28 BSA Calculated1.79 Tobacco Useb) No Fall Screeninga) [...] ongoing well-woman care with her current local Supervisor [employer]. She has Hematology follow-up today following our [...] Aug 06 2020 2:00PM EST (Author) Normal [employer] Complete Blood Count + Diffe marc 06-27-2020 Basophils/100 WBC (Bld) 0.5 % 0.0 - 2.0 CV-JMVJA-Gfhmr[address] Work Phone: Eosinophils (Bld) [#/Vol] 0.24 {x10E9/L} See Below FT-IAQFW-Yzija[address] Work Phone: Comment on above: Reference Range: 0.0 0 - 0.70 Eosinophils/100 WBC (Bld) 1.1 % 0.0 - 6.0 QG-ISANL-Eqpbi [address] Work Phone: Erythrocyte distribution width (RBC) [Ratio] 15.0 % above high threshold See Below TJ-QSXAD-Fyecx[address] Work Phone: Comment on above: Reference Range: 11. 5 - 14.5 Hematocrit (Bld) [Volume fraction] 30.0 % below low threshold See Below TZ-ODHWG-Wvnjm[address] Work Phone: Comment on above: Reference Range: 36. 0 - 46.0 Hemoglobin (Bld) [Mass/Vol] 9.8 g/dL below low threshold See Below LY-ONKVG-Ugayl 2nd Fl Work Phone: Comment on above: Reference Range: 12. 0 - 16.0 Lymphocytes (Bld) [#/Vol] 2.25 {x10E9/L} See Below HN-HEQXA-Dqjpm 2nd Fl Work Phone: Comment on above: Reference Range: 1.2 0 - 4.80 Lymphocytes/100 WBC (Bld) 10.4 % See Below PD-PBUPZ-Zqmmy 2nd Fl Work Phone: Comment on above: Reference Range: 13. 0 - 44.0 MCHC (RBC) [Mass/Vol] 32.7 g/dL See Below MW-YHOQR-Rrzvp 2nd Fl Work Phone: Comment on above: Reference Range: 32. 0 - 36.0 MCV (RBC) [Entitic vol] 91 fL 80 - 100 FC-SFDTB-Hnawq 2nd Fl Work Phone: Monocytes (Bld) [#/Vol] 0.84 {x10E9/L} See Below US-VEVLV-Syish 2nd Fl Work Phone: Comment on above: Reference Range: 0.1 0 - 1.00 Monocytes/100 WBC (Bld) 3.9 % 2.0 - 10.0 RC-PWPIM-Duykc 2nd Fl Work Phone: Neutrophils/100 WBC (Bld) 82.7 % See Below PT-HQQSF-Zvizg 2nd Fl Work Phone: Comment on above: Reference Range: 40. 0 - 80.0 Platelets (Bld) [#/Vol] 225 {x10E9/L} 150 - 450 WN-RSLKM-Mikui 2nd Fl Work Phone: RBC (Bld) [#/Vol] 3.31 {x10E12/L} below low threshold See Below YH-SRZOW-Phxzo wn 2nd Fl Work Phone: Comment on above: Reference Range: 4.0 0 - 5.20 WBC (Bld) [#/Vol] 0.0 {/100_WBC} 0.0-0.0 MG- OBGYN[address] Fl Work Phone: WBC (Bld) [#/Vol] 21.6 {x10E9/L} above high threshold 4.4 - 11.3 KW-THNWB-Olgyb wn 2nd Fl Work Phone: Complete Blood Count + Differential 0.11 {x10E9/L} above high threshold See Below WY-MEMGO-Ghdcv wn 2nd Fl Work Phone: Comment on above: Reference Range: 0.0 0 - 0.10 Complete Blood Count + Differential 1.4 % above high threshold 0.0 - 0.9 WD-KEGPT-Ltrlf wn 2nd Fl Work Phone: Comment on above: Immature Granulocyte Count (IG) includes promyelocytes, myelocytes and metamyelocytes but does not include bands. Percent differential counts (%) should be interpreted in the context of the absolute cell counts (cells/L). Complete Blood Count + Differential 17.85 {x10E9/L} above high threshold See Below CO-XFNUD-Axqsv wn 2nd Fl Work Phone: Comment on above: Reference Range: 1.2 0 - 7.70 Hematologyon 06-26-2020 Hematocrit (Bld) [Volume fraction] 30.5 % below low threshold See Below MW-LAMBT-Oxaaf wn 2nd Fl Work Phone: Comment on above: Reference Range: 36. 0 - 46.0 Hemoglobin (Bld) [Mass/Vol] 10.7 g/dL below low threshold See Below DF-LBTLE-Fwtvt wn 2nd Fl Work Phone: Comment on above: Reference Range: 12. 0 - 16.0 MCV (RBC) [Entitic vol] 84 fL 80 - 100 AH-XVSDW-Pbjga wn 2nd Fl Work Phone: Platelets (Bld) [#/Vol] 258 {x10E9/L} 150 - 450 UU-RGZYT-Onzvh wn 2nd Fl Work Phone: RBC (Bld) [#/Vol] 3.62 {x10E12/L} below low threshold See Below MU-OLOXU-Fpqxm wn 2nd Fl Work Phone: Comment on above: Reference Range: 4.0 0 - 5.20 WBC (Bld) [#/Vol] 0.0 {/100_WBC} 0.0-0.0 MG- OBGYN-Midto wn 2nd Fl Work Phone: WBC (Bld) [#/Vol] 35.7 {x10E9/L} above high threshold 4.4 - 11.3 UO-RGIXV-Ryhxc wn 2nd Fl Work Phone: Otheron 06-26-2020 Erythrocyte distribution width (RBC) [Ratio] 14.6 % above high threshold See Below TD-TENZW-Doaqz wn 2nd Fl Work Phone: Comment on above: Reference Range: 11. 5 - 14.5 MCHC (RBC) [Mass/Vol] 35.1 g/dL See Below ZQ-XOOFT-Zdgxz wn 2nd Fl Work Phone: Comment on [...] 3.5 cm, located 1.0 cm from themargin. Personal Service Workers sections are submitted in 5 cassettes.AXQ/LMPSummary of Cassettes:Specimen Label SiteA 1 umbilical cord sections 2 membrane rolls 3 placental parenchyma, umbilical cord insertion site 4 placental parenchyma 5 placental parenchyma, lesionaxq/06/26/2020 JJ-SRYJF-Zyofp[address] Work Phone: Coronavirus 2019 RNA by PCR, Symptomaticon 06-25-2020 Coronavirus 2019 RNA by PCR, Symptomatic NOT DETECTED See Below AW-WFFAU-Dwynt wn 2nd Fl Work Phone: Comment on [...] this test method. Fact sheet for providers: www.fda.gov/media/193399/downloadFact sheet for patients: www.fda.gov/media/943559/downloadThis test has received FDA Emergency Use Authorization (EUA) and has been verified by [facility] ([facility]). This test is only authorized for the duration of time that circumstances exist to justify the authorization of the emergency use of in vitro diagnostic tests for the detection of SARS-CoV-2 virus and/or diagnosis of COVID-19 infection under section 564(b)(1) of the Act, 21 U.S.C. 360bbb-3(b)(1), unless the authorization is terminated or revoked sooner. [facility] is certified under CLIA-88 as qualified to perform high complexity testing. Testing is performed in the [facility] laboratories located at [address] [place] [address]. Hematologyon 06-25-2020 ABO group Nom (Bld) A [address] Work Phone: Blood group antibody screen Ql Negative [address] Work Phone: Hematocrit (Bld) [Volume fraction] 34.7 % below low threshold See Below [address] Work Phone: Comment on above: Reference Range: 36. 0 - 46.0 Hemoglobin (Bld) [Mass/Vol] 11.6 g/dL below low threshold See Below [address] Work Phone: Comment on above: Reference Range: 12. 0 - 16.0 MCV (RBC) [Entitic vol] 90 fL 80 - [address] Work Phone: Platelets (Bld) [#/Vol] 268 {x10E9/L} 150 - 450 NM-BBVEI-Hrday[address] Work Phone: RBC (Bld) [#/Vol] 3.85 {x10E12/L} below low threshold See Below MV-EFTVZ-Rzgnq[address] Work Phone: Comment on above: Reference Range: 4.0 0 - 5.20 Rh immune globulin screen (Bld) [Interp] Positive ZQ-ANVMM-Wcwel[address] Work Phone: WBC (Bld) [#/Vol] 0.0 {/100_WBC} 0.0-0.0 MG- OBGYN-[address] Work Phone: WBC (Bld) [#/Vol] 15.5 {x10E9/L} above high threshold 4.4 - 11.3 UR-KCFHW-Rcjcg[address] Work Phone: Otheron 06-25-2020 Erythrocyte distribution width (RBC) [Ratio] 14.4 % See Below EC-DUVJI-Ixhyj[address] Work Phone: Comment on above: Reference Range: 11. 5 - 14.5 MCHC (RBC) [Mass/Vol] 33.4 g/dL See Below XA-RAKPS-Oqnzw[address] Work Phone: Comment on above: Reference Range: 32. 0 - 36.0 SYPHILIS SCREENING WITH REFL EXon 06-25-2020 T. pallidum IgG+IgM IA Ql (S) NONREACTIVE See Below FH-GSNAF-Jdhir[address] Work Phone: Comment on above: SOURCE: Reference Ra nge: NONREACTIVENo significant level of Treponema pallidum antibody detected. Repeat testing in 2 to 4 weeks may be considered if early infection or incubating syphilis infection is suspected. Imm/Pathon 06-07-2020 Bacteria identified Aer cx Nom (Genital specimen) PATIENT: KIARA ASHLEY LOCATION: [facility] [place] BILL#: [id number] : 89 AGE: SEX: F ORDERED BY: PARAS GUEVARA: VAGINAL COLLECTED: 06/07/20 09:36ANTIBIOTICS AT [place].: RECEIVED : 06/08/20 07:27SITE: VAGINAL R E S U L T S GROUP B STREP SCREEN PRELIM 06/09/20 08:35 CULTURE IN PROGRESS. OC-BPZKO-PIJ [address] [place] Work Phone: Bacteria identified Aer cx Nom (Genital specimen) PATIENT: KIARA ASHLEY LOCATION: [facility] [place] BILL#: [id number] : 89 AGE: SEX: F ORDERED BY: PAARS GUEVARA: VAGINAL COLLECTED: 06/07/20 09:36ANTIBIOTICS AT [place].: RECEIVED : 06/08/20 07:27SITE: VAGINAL R E S U L T S GROUP B STREP SCREEN FINAL 06/10/20 11:54 NEGATIVE FOR GROUP B BETA STREP. PJ-PHKDM-Bznjs wn 2nd Fl Work Phone: Otheron 06-07-2020 Interpreted by: ELÍAS GÓMEZ LBLCYGBN86/24/20 09:33Indication======== Growth for Suspect Problem with Growth, [...] growth-No malformations were identified on a limited survey-[facility] 06/22 The patient is [...] signed by: RILEY TREVIÑO 06/07/20 09:33 Normal CS-BACUO-FKD [address] [place] Work Phone: Comment on above: ORDER REVISED TO A O B FOLLOW UP OR REPEAT SCAN BY RADIOLOGIST; Original Order Number: [id number] CBC AND DIFFERENTIALon 04-24 % AUTOMATED IMMATURE GRAN 1.9 % High 0.0 - 0.9 [facility] [place] Comment on above: Result Comment: Graciela ture Granulocyte Count (IG) includes promyelocytes, myelocytes and metamyelocytes but does not include bands. Percent differential counts (%) should be interpreted in the context of the absolute cell counts (cells/L). Performed By: #### C BCDF #### [address] [place] [address] Basophils (Bld) [#/Vol] 0.08 10*3/uL Normal 0.00 - 0.10 [facility] [place] Comment on above: Performed By: #### C BCDF #### [address] [place] [address] Basophils/100 WBC (Bld) 0.5 % Normal 0.0 - 2.0 [facility] [place] Comment on above: Performed By: #### C BCDF #### [address] [place] [address] Eosinophils (Bld) [#/Vol] 0.22 10*3/uL Normal 0.00 - 0.70 [facility] [place] Comment on above: Performed By: #### C BCDF #### [address] [place] [address] Eosinophils/100 WBC (Bld) 1.5 % Normal 0.0 - 6.0 [facility] [place] Comment on above: Performed By: #### C BCDF #### [address] [place] [address] Erythrocyte distribution width (RBC) [Ratio] 14.0 % Normal 11.5 - 14.5 [facility] [place] Comment on above: Performed By: #### C BCDF #### [address] [place] [address] Hematocrit (Bld) [Volume fraction] 35.6 % Low 36.0 - 46.0 [facility] [place] Comment on above: Performed By: #### C BCDF #### [address] [place] [address] Hemoglobin (Bld) [Mass/Vol] 11.8 g/dL Low 12.0 - 16.0 [facility] [place] Comment on above: Performed By: #### C BCDF #### [address] [place] [address] Lymphocytes (Bld) [#/Vol] 2.38 10*3/uL Normal 1.20 - 4.80 [facility] [place] Comment on above: Performed By: #### C BCDF #### [address] [place] [address] Lymphocytes/100 WBC (Bld) 16.0 % Normal 13.0 - 44.0 [facility] [place] Comment on above: Performed By: #### C BCDF #### [address] [place] [address] MCHC (RBC) [Mass/Vol] 33.1 g/dL Normal 32.0 - 36.0 [facility] [place] Comment on above: Performed By: #### C BCDF #### [address] [place] [address] MCV (RBC) [Entitic vol] 92 fL Normal 80 - 100 [facility] [place] Comment on above: Performed By: #### C BCDF #### [address] [place] [address] Monocytes (Bld) [#/Vol] 0.74 10*3/uL Normal 0.10 - 1.00 [facility] [place] Comment on above: Performed By: #### C BCDF #### [address] [place] [address] Monocytes/100 WBC (Bld) 5.0 % Normal 2.0 - 10.0 [facility] [place] Comment on above: Performed By: #### C BCDF #### [address] [place] [address] Neutrophils (Bld) [#/Vol] 11.17 10*3/uL High 1.20 - 7.70 [facility] [place] Comment on above: Performed By: #### C BCDF #### [address] [place] [address] Neutrophils/100 WBC (Bld) 75.1 % Normal 40.0 - 80.0 [facility] [place] Comment on above: Performed By: #### C BCDF #### [address] [place] [address] Platelets (Bld) [#/Vol] 285 10*3/uL Normal 150 - 450 [facility] [place] Comment on above: Performed By: #### C BCDF #### [address] [place] [address] RBC (Bld) [#/Vol] 3.89 x10E12/L Low 4.00 - 5.20 [facility] [place] Comment on above: Performed By: #### C BCDF #### [address] [place] [address] WBC (Bld) [#/Vol] 14.9 10*3/uL High 4.4 - 11.3 [facility] Comment on above: Performed By: #### C BCDF #### [address] [place] [address] COMPREHENSIVE PANELon 2019 ALP [Catalytic activity/Vol] 79 U/L Normal 33 - 110 [facility] [place] Comment on above: Performed By: #### C MP #### [address] [place] [address] [facility] [address] [place] [address] ALT [Catalytic activity/Vol] 7 U/L Normal 7 - 45 [facility] [place] Comment on above: Result Comment: Melida ents treated with Sulfasalazine may generate falsely decreased results for ALT. Performed By: #### C MP #### [address] [place] [address] [place] [address] AST [Catalytic activity/Vol] 13 U/L Normal 9 - 39 [facility] [place] Comment on above: Performed By: #### C MP #### [address] [place] [address] [place] [address] Bilirubin [Mass/Vol] 0.3 mg/dL Normal 0.0 - 1.2 [facility] [place] Comment on above: Performed By: #### C MP #### [address] [place] [address] [place] [address] Protein [Mass/Vol] 5.9 g/dL Low 6.4 - 8.2 [facility] [place] Comment on above: Performed By: #### C MP #### [address] [place] [address] [place] [address] Anion gap [Moles/Vol] 12 mmol/L Normal 10 - 20 [facility] [place] Comment on above: Performed By: #### C MP #### [address] [place] [address] [place] [address] Chloride [Moles/Vol] 106 mmol/L Normal 98 - 107 [facility] [place] Comment on above: Performed By: #### C MP #### [address] [place] [address] [place] [address] Potassium [Moles/Vol] 3.7 mmol/L Normal 3.5 - 5.3 [facility] [place] Comment on above: Performed By: #### C MP #### [address] [place] [address] [place] [address] Sodium [Moles/Vol] 137 mmol/L Normal 136 - 145 [facility] [place] Comment on above: Performed By: #### C MP #### [address] [place] [address] [place] [address] Calcium [Mass/Vol] 9.2 mg/dL Normal 8.6 - 10.3 [facility] [place] Comment on above: Performed By: #### C MP #### [address] [place] [address] [place] [address] Glucose [Mass/Vol] 95 mg/dL Normal 74 - 99 [facility] [place] Comment on above: Performed By: #### C MP #### [address] [place] [address] [place] [address] Urea nitrogen [Mass/Vol] 7 mg/dL Normal 6 - 23 [facility] [place] Comment on above: Performed By: #### C MP #### [address] [place] [address] [place] [address] Albumin [Mass/Vol] 3.4 g/dL Normal 3.4 - 5.0 [facility] [place] Comment on above: Performed By: #### C MP #### [address] [place] [address] [place] [address] Creatinine [Mass/Vol] 0.70 mg/dL Normal 0.50 - 1.05 [facility] [place] Comment on above: Performed By: #### C MP #### [address] [place] [address] [place] [address] GFR- AM. >60 Normal >60 [facility] [place] Comment on above: Result Comment: CALC ULATIONS OF ESTIMATED GFR ARE PERFORMED USING THE MDRD STUDY EQUATION FOR THE IDMS-TRACEABLE CREATININE METHODS. CLIN CHEM 2007;53:766-72 Performed By: #### C MP #### [address] [place] [address] [address] GFR-NON AM. >60 Normal >60 [facility] [place] Comment on above: Performed By: #### C MP #### [address] [place] [address] [place] [address] HCO3 (Bld) [Moles/Vol] 23 mmol/L Normal 21 - 32 [facility] [place] Comment on above: Performed By: #### C MP #### [address] [place] [address] [place] [address] FERRITINon 04-24-2020 Ferritin [Mass/Vol] 8 ug/L Normal 8 - 150 [facility] [place] Comment on above: Performed By: #### F ERRI #### [address] [place] [address] IRON + TIBCon 04-24-2020 % SATURATION 14 % Low 25 - 45 [facility] [place] Comment on above: Performed By: #### I RONT #### [address] [address] Iron [Mass/Vol] 65 ug/dL Normal 35 - 150 [facility] [place] Comment on above: Performed By: #### I RONT #### [address] [place] [address] TIBC 449 ug/dL High 240 - 445 [facility] [place] Comment on above: Performed By: #### I RONT #### [address] [address] Complete Blood Count + Diffe rentialon 12-25-2019 Basophils/100 WBC (Bld) 1.0 % 0.0 - 2.0 DH-TAYNY-AJA [address] [place] Work Phone: Eosinophils (Bld) [#/Vol] 0.37 {x10E9/L} See Below OY-WYGLG-VSQ [address] [place] Work Phone: Comment on above: Reference Range: 0.0 0 - 0.70 Eosinophils/100 WBC (Bld) 3.0 % 0.0 - 6.0 FT-LNOJH-HMN [address] [place] Work Phone: Erythrocyte distribution width (RBC) [Ratio] 13.4 % See Below ZV-EPJRB-SSK [address] [place] Work Phone: Comment on above: Reference Range: 11. 5 - 14.5 Hematocrit (Bld) [Volume fraction] 41.8 % See Below IJ-UWDGO-VKA [address] [place] Work Phone: Comment on above: Reference Range: 36. 0 - 46.0 Hemoglobin (Bld) [Mass/Vol] 13.6 g/dL See Below VM-UMNOK-IKR [address] [place] Work Phone: Comment on above: Reference Range: 12. 0 - 16.0 Lymphocytes (Bld) [#/Vol] 2.52 {x10E9/L} See Below JE-JTUNK-JBD [address] [place] Work Phone: Comment on above: Reference Range: 1.2 0 - 4.80 Lymphocytes/100 WBC (Bld) 20.2 % See Below EI-PBIPK-SIJ [address] Work Phone: Comment on above: Reference Range: 13. 0 - 44.0 MCHC (RBC) [Mass/Vol] 32.5 g/dL See Below RT-CGPEW-OYP [address] Work Phone: Comment on above: Reference Range: 32. 0 - 36.0 MCV (RBC) [Entitic vol] 95 fL 80 - 100 AV-HVTBQ-XWE [address] Work Phone: Monocytes (Bld) [#/Vol] 0.58 {x10E9/L} See Below ML-RYWQN-GCI [address] [place] Work Phone: Comment on above: Reference Range: 0.1 0 - 1.00 Monocytes/100 WBC (Bld) 4.6 % 2.0 - 10.0 GQ-UORKI-JNI [address] [place] Work Phone: Neutrophils/100 WBC (Bld) 70.6 % See Below MK-EVSLP-SIK [address] [place] Work Phone: Comment on above: Reference Range: 40. 0 - 80.0 Platelets (Bld) [#/Vol] 372 {x10E9/L} 150 - 450 ID-XIDQG-KPK [address] [place] Work Phone: RBC (Bld) [#/Vol] 4.40 {x10E12/L} See Below MG -OBGYN-MAC [address] [place] Work Phone: Comment on above: Reference Range: 4.0 0 - 5.20 WBC (Bld) [#/Vol] 0.0 {/100_WBC} 0.0-0.0 MG- OBGYN-MAC [address] [place] Work Phone: WBC (Bld) [#/Vol] 12.7 {x10E9/L} above high threshold 4.4 - 11.3 ST-VIMNZ-TFB [address] [place] Work Phone: Comment on above: SOURCE: Complete Blood Count + Differential 8.81 {x10E9/L} above high threshold See Below MC-UZVLM-EHY [address] [place] Work Phone: Comment on above: Reference Range: 1.2 0 - 7.70 Complete Blood Count + Differential 0.6 % 0.0 - 0.9 XD-EICBM-EAO [address] [place] Work Phone: Comment on above: Percent differential counts (%) should be interpreted in the context of the absolute cell counts (cells/L). Complete Blood Count + Differential 0.13 {x10E9/L} above high threshold See Below MM-NKAYY-YEJ [address] [place] Work Phone: Comment on above: Reference Range: 0.0 0 - 0.10 Cult, Urineon 12-25-2019 Bacteria identified Cx Nom (U) PATIENT: KIARA ASHLEY LOCATION: [facility] [place] BILL#: [id number] : 89 AGE: SEX: F ORDERED BY: PARAS GUEVARA: URINE COLLECTED: 12/25/19 09:41ANTIBIOTICS AT [place].: RECEIVED : 12/25/19 17:06SITE: Clean Catch/Voided R E S U L T S URINE CULTURE,BACTERIAL FINAL 12/26/19 10:21 NO SIGNIFICANT GROWTH. QY-CGBSJ-OHG [address] [place] Work Phone: Hematologyon 12-25-2019 ABO group Nom (Bld) A RB-NPIDQ-JEP [address] [place] Work Phone: Blood group antibody screen Ql Negative SH-AOQHK-JZD [address] [place] Work Phone: Rh immune globulin screen (Bld) [Interp] Positive GA-NFGEU-KLR [address] [place] Work Phone: Hepatitis B Surface Antigeno n 12-25-2019 Hepatitis B Surface Antigen NONREACTIVE See Below FJ-OWRHW-WTW [address] [place] Work Phone: Comment on above: [...] Hepatitis C Antibody Test NON-REACTIVE See Below LM-YWJNK-JGO [address] [place] Work Phone: Comment on above: SOURCE: Reference Ra nge: NONREACTIVE Patients receiving more than 5 mg/day of biotin may have interference in test results. A sample should be taken no sooner than eight hours after previous dose. Contact the testing laboratory for additional information. Metabolic Panelon 12-25-2019 ALP [Catalytic activity/Vol] 67 U/L 33 - 110 IQ-IBGUK-TTZ [address] [place] Work Phone: Anion gap [Moles/Vol] 15 mmol/L 10 - 20 OO-SUYJK-LOP [address] [place] Work Phone: Bilirubin [Mass/Vol] 0.3 mg/dL 0.0 - 1.2 XW-NXHBC-NGF [address] [place] Work Phone: Calcium [Mass/Vol] 9.6 mg/dL 8.6 - 10.6 OU-RVSCY-CSH [address] [place] Work Phone: Chloride [Moles/Vol] 104 mmol/L 98 - 107 CY-DPKNN-KED [address] [place] Work Phone: CO2 [Moles/Vol] 21 mmol/L 21 - 32 MG-OBGYN- MAC 1200 [place] Work Phone: Creatinine [Mass/Vol] 0.69 mg/dL See Below XX-CBZOL-NRV 1200 [place] Work Phone: Comment on above: Reference Range: 0.5 0 - 1.05 Glucose [Mass/Vol] 83 mg/dL 74 - 99 UW-TOQNP-LOY 1200 [place] Work Phone: Comment on above: SOURCE: Potassium [Moles/Vol] 4.1 mmol/L 3.5 - 5.3 NC-UTFER-XGF 1200 [place] Work Phone: Protein [Mass/Vol] 6.2 g/dL below low threshold 6.4 - 8.2 TW-GQBNV-RBL 1200 [place] Work Phone: Sodium [Moles/Vol] 136 mmol/L 136 - 145 WO-ASKMU-SOK 1200 [place] Work Phone: Urea nitrogen [Mass/Vol] 9 mg/dL 6 - 23 OP-QRJUQ-WLE 1200 [place] Work Phone: Otheron 12-25-2019 Albumin BCP dye [Mass/Vol] 3.9 g/dL 3.4 - 5.0 RY-PNRLA-ZNI 1200 [place] Work Phone: ALT With P-5'-P [Catalytic activity/Vol] 8 U/L 7 - 45 IU-XMGWA-LFX 1200 [place] Work Phone: Comment on above: Patients treated wit h Sulfasalazine may generate falsely decreased results for ALT. AST With P-5'-P [Catalytic activity/Vol] 11 U/L 9 - 39 NZ-HDPHU-KNJ 1200 [place] Work Phone: NONE PY-GIBJR-BBF 1200 [place] Work Phone: >60 >60 FA-LQVYT-JKG 1200 [place] Work Phone: Comment on above: CALCULATIONS OF MARÍA MATED GFR ARE PERFORMED USING THE MDRD STUDY EQUATION FOR THE IDMS-TRACEABLE CREATININE METHODS. CLIN CHEM 2007;53:766-72 SYPHILIS SCREENING WITH REFL EXon 12-25-2019 T. pallidum IgG+IgM IA Ql (S) NONREACTIVE See Below RY-YDJLU-MLC 1200 [place] Work Phone: Comment on above: SOURCE: Reference Ra nge: NONREACTIVENo significant level of Treponema pallidum antibody detected. Repeat testing in 2 to 4 weeks may be considered if early infection or incubating syphilis infection is suspected. CBC AND DIFFERENTIALon 11-21 % AUTOMATED IMMATURE GRAN 0.9 % Normal 0.0 - 0.9 [facility] [place] Comment on above: Result Comment: Perc ent differential counts (%) should be interpreted in the context of the absolute cell counts (cells/L). Performed By: #### C BCDF #### [address] [place] [address] Basophils (Bld) [#/Vol] 0.16 10*3/uL High 0.00 - 0.10 [facility] [place] Comment on above: Performed By: #### C BCDF #### [address] [place] [address] Basophils/100 WBC (Bld) 1.2 % Normal 0.0 - 2.0 [facility] [place] Comment on above: Performed By: #### C BCDF #### [address] [place] [address] Eosinophils (Bld) [#/Vol] 0.80 10*3/uL High 0.00 - 0.70 [facility] [place] Comment on above: Performed By: #### C BCDF #### [address] [place] [address] Eosinophils/100 WBC (Bld) 5.8 % Normal 0.0 - 6.0 [facility] [place] Comment on above: Performed By: #### C BCDF #### [address] [place] [address] Erythrocyte distribution width (RBC) [Ratio] 13.6 % Normal 11.5 - 14.5 [facility] [place] Comment on above: Performed By: #### C BCDF #### [address] [place] [address] Hematocrit (Bld) [Volume fraction] 39.4 % Normal 36.0 - 46.0 [facility] [place] Comment on above: Performed By: #### C BCDF #### [address] [place] [address] Hemoglobin (Bld) [Mass/Vol] 13.0 g/dL Normal 12.0 - 16.0 [facility] [place] Comment on above: Performed By: #### C BCDF #### [address] [place] [address] Lymphocytes (Bld) [#/Vol] 2.24 10*3/uL Normal 1.20 - 4.80 [facility] [place] Comment on above: Performed By: #### C BCDF #### [address] [place] [address] Lymphocytes/100 WBC (Bld) 16.3 % Normal 13.0 - 44.0 [facility] [place] Comment on above: Performed By: #### C BCDF #### [address] [place] [address] MCHC (RBC) [Mass/Vol] 33.0 g/dL Normal 32.0 - 36.0 [facility] [place] Comment on above: Performed By: #### C BCDF #### [address] [place] [address] MCV (RBC) [Entitic vol] 94 fL Normal 80 - 100 [facility] [place] Comment on above: Performed By: #### C BCDF #### [address] [place] [address] Monocytes (Bld) [#/Vol] 0.83 10*3/uL Normal 0.10 - 1.00 [facility] [place] Comment on above: Performed By: #### C BCDF #### [address] [place] [address] Monocytes/100 WBC (Bld) 6.0 % Normal 2.0 - 10.0 [facility] [place] Comment on above: Performed By: #### C BCDF #### [address] [place] [address] Neutrophils (Bld) [#/Vol] 9.60 10*3/uL High 1.20 - 7.70 [facility] [place] Comment on above: Performed By: #### C BCDF #### [address] [place] [address] Neutrophils/100 WBC (Bld) 69.8 % Normal 40.0 - 80.0 [facility] [place] Comment on above: Performed By: #### C BCDF #### [address] [place] [address] Platelets (Bld) [#/Vol] 380 10*3/uL Normal 150 - 450 [facility] [place] Comment on above: Performed By: #### C BCDF #### [address] [place] [address] RBC (Bld) [#/Vol] 4.21 x10E12/L Normal 4.00 - 5.20 [facility] [place] Comment on above: Performed By: #### C BCDF #### [address] [place] [address] WBC (Bld) [#/Vol] 13.8 10*3/uL High 4.4 - 11.3 [facility] Comment on above: Performed By: #### C BCDF #### [facility] [address] [address] Complete Blood Count + Diffe rentialon 11-14-2019 Basophils (Bld) [#/Vol] 0.05 {x10E9/L} See Below MP-Reproductiv e Endocrinology- [place] Work Phone: Comment on above: Reference Range: 0.0 0 - 0.10 Basophils/100 WBC (Bld) 0.4 % 0.0 - 2.0 [facility] Work Phone: Eosinophils (Bld) [#/Vol] 0.89 {x10E9/L} above high threshold See Below MP-Reproductiv e Endocrinology- [place] Work Phone: Comment on above: Reference Range: 0.0 0 - 0.70 Eosinophils/100 WBC (Bld) 7.3 % 0.0 - 6.0 [facility] Work Phone: Erythrocyte distribution width (RBC) [Ratio] 13.9 % See Below [facility] Work Phone: Comment on above: Reference Range: 11. 5 - 14.5 Hematocrit (Bld) [Volume fraction] 39.4 % See Below [facility] Work Phone: Comment on above: Reference Range: 36. 0 - 46.0 Hemoglobin (Bld) [Mass/Vol] 12.8 g/dL See Below MP-Reproductiv e Endocrinology- [place] Work Phone: Comment on above: Reference Range: [...] 32.5 g/dL See Below MP-Reproductiv e Endocrinology- [place] Work Phone: Comment on above: Reference Range: [...] 69.4 % See Below MP-Reproductiv e Endocrinology- [place] Work Phone: Comment on above: Reference Range: 40. 0 - 80.0 Platelets (Bld) [#/Vol] 423 {x10E9/L} 150 - 450 MP-Reproductiv e Endocrinology- [place] Work Phone: RBC (Bld) [#/Vol] 4.15 {x10E12/L} See Below MP -Reproductiv e Endocrinology- [place] Work Phone: Comment on above: Reference Range: 4.0 0 - 5.20 WBC (Bld) [#/Vol] 12.2 {x10E9/L} above high threshold 4.4 - 11.3 MP-Reproductiv e Endocrinology- [place] Work Phone: WBC (Bld) [#/Vol] 0.0 {/100_WBC} 0.0-0.0 MP- Reproductiv e Endocrinology- [place] Work Phone: Complete Blood Count + Differential 0.5 % 0.0 - 0.9 MP-Reproductiv e Endocrinology- [place] Work Phone: Comment on above: Percent differential counts (%) should be interpreted in the context of the absolute cell counts (cells/L). Complete Blood Count + Differential 8.42 {x10E9/L} above high threshold See Below MP-Reproductiv e Endocrinology- [place] Work Phone: Comment on above: Reference Range: 1.2 0 - 7.70 Metabolic Panelon 11-14-2019 ALP [Catalytic activity/Vol] 82 U/L 33 - 110 MP-Reproductiv e Endocrinology- [place] Work Phone: Anion gap [Moles/Vol] 19 mmol/L 10 - 20 MP-Reproductiv e Endocrinology- [place] Work Phone: Bilirubin [Mass/Vol] 0.4 mg/dL 0.0 - 1.2 MP-Reproductiv e Endocrinology- [place] Work Phone: Calcium [Mass/Vol] 9.5 mg/dL 8.6 - 10.6 MP-Reproductiv e Endocrinology- [place] Work Phone: Chloride [Moles/Vol] 100 mmol/L 98 - 107 MP-Reproductiv e Endocrinology- [place] Work Phone: CO2 [Moles/Vol] 20 mmol/L below low threshold 21 - 32 MP-Reproductiv e Endocrinology- [place] Work Phone: Creatinine [Mass/Vol] 0.80 mg/dL See Below MP-Reproductiv e Endocrinology- [place] Work Phone: Comment on above: Reference Range: 0.5 0 - 1.05 Glucose [Mass/Vol] 86 mg/dL 74 - 99 MP-Reproductiv e Endocrinology- [place] Work Phone: Potassium [Moles/Vol] 4.3 mmol/L 3.5 - 5.3 MP-Reproductiv e Endocrinology- [place] Work Phone: Protein [Mass/Vol] 5.8 g/dL below low threshold 6.4 - 8.2 MP-Reproductiv e Endocrinologycooala - [facility] [place] Work Phone: Sodium [Moles/Vol] 135 mmol/L below low threshold 136 - 145 MP-Reproductiv e Endocrinology- [place] Work Phone: Urea nitrogen [Mass/Vol] 10 mg/dL 6 - 23 [facility] Work Phone: Otheron 11-14-2019 Albumin BCP dye [Mass/Vol] 3.5 g/dL 3.4 - 5.0 MP-Reproductiv e Endocrinologycooala - [employer] [facility] [place] Work Phone: ALT With P-5'-P [Catalytic activity/Vol] 17 U/L 7 - 45 MP-Reproductiv e [facility] Work Phone: Comment on above: Patients treated wit h Sulfasalazine may generate falsely decreased results for ALT. AST With P-5'-P [Catalytic activity/Vol] 22 U/L 9 - 39 [facility] [place] Work Phone: >60 >60 MP-Reproductiv e [facility] Work Phone: Comment on above: CALCULATIONS OF MARÍA MATED GFR ARE PERFORMED USING THE MDRD STUDY EQUATION FOR THE IDMS-TRACEABLE CREATININE METHODS. CLIN CHEM 2007;53:766-72 CBCon 11-09-2019 Erythrocyte distribution width (RBC) [Ratio] 13.7 % See Below FM-MQTZV-Vvoir n 310 [place] Work Phone: Comment on above: Performed By: #### L H #### [facility] [address] [place] [address] Reference Range: 11. 5 - 14.5 Hematocrit (Bld) [Volume fraction] 41.9 % See Below QQ-FXKCS-Itxlt n 310 IVF Work Phone: Comment on above: Performed By: #### L H #### [facility] [address] [place] [address] Reference Range: 36. 0 - 46.0 Hemoglobin (Bld) [Mass/Vol] 14.0 g/dL See Below CY-OYSQB-Nejuz n 310 IVF Work Phone: Comment on above: Performed By: #### L H #### [facility] [address] [place] [address] Reference Range: 12. 0 - 16.0 MCHC (RBC) [Mass/Vol] 33.4 g/dL See Below HT-IEUVD-Skyeq n 310 IVF Work Phone: Comment on above: Performed By: #### L H #### [facility] [address] [place] [address] Reference Range: 32. 0 - 36.0 MCV (RBC) [Entitic vol] 94 fL 80 - 100 PR-LLKRQ-Dhlio n 310 IVF Work Phone: Comment on above: Performed By: #### L H #### [facility] [address] [place] [address] Platelets (Bld) [#/Vol] 411 10*3/uL Normal 150 - 450 [facility] Comment on above: Performed By: #### L H #### [facility] [address] [place] [address] RBC (Bld) [#/Vol] 4.44 x10E12/L Normal 4.00 - 5.20 [facility] Comment on above: Performed By: #### L H #### [facility] [address] [place] [address] WBC (Bld) [#/Vol] 12.4 10*3/uL High 4.4 - 11.3 [facility] Comment on above: Performed By: #### L H #### [facility] [address] [place] [id number] COMPREHENSIVE PANELon 2018 Albumin [Mass/Vol] 3.8 g/dL Normal 3.4 - 5.0 [facility] Comment on above: Performed By: #### L H #### [facility] [address] [place] [address] ALP [Catalytic activity/Vol] 51 U/L 33 - 110 GF-HAPUY-Laqxt n 310 IVF Work Phone: Comment on above: Performed By: #### L H #### [facility] [address] [place] [address] ALT [Catalytic activity/Vol] 12 U/L Normal 7 - 45 [facility] Comment on above: Result Comment: Melida ents treated with Sulfasalazine may generate falsely decreased results for ALT. Performed By: #### L H #### [facility] [address] [place] [address] Anion gap [Moles/Vol] 13 mmol/L 10 - 20 QK-FTETJ-Rskjg n 310 IVF Work Phone: Comment on above: Performed By: #### L H #### [facility] [address] [place] [id number] AST [Catalytic activity/Vol] 12 U/L Normal 9 - 39 [facility] Comment on above: Performed By: #### L H #### [facility] [address] [place] [address] Bilirubin [Mass/Vol] 0.4 mg/dL 0.0 - 1.2 WX-GGIGP-Obsrv n 310 IVF Work Phone: Comment on above: Performed By: #### L H #### [facility] [address] [place] [address] Calcium [Mass/Vol] 9.3 mg/dL 8.6 - 10.3 RV-FYHFN-Axhgz n 310 IVF Work Phone: Comment on above: Performed By: #### L H #### [facility] [address] [place] [address] Chloride [Moles/Vol] 102 mmol/L 98 - 107 QG-JNJDM-Ygezc n 310 IVF Work Phone: Comment on above: Performed By: #### L H #### [facility] [address] [place] [address] Creatinine [Mass/Vol] 0.89 mg/dL See Below LV-ZDJJP-Jdoke n 310 IVF Work Phone: Comment on above: Performed By: #### L H #### [facility] [address] [place] [id number] Reference Range: 0.5 0 - 1.05 GFR- AM. >60 Normal >60 [facility] Comment on above: Result Comment: CALC ULATIONS OF ESTIMATED GFR ARE PERFORMED USING THE MDRD STUDY EQUATION FOR THE IDMS-TRACEABLE CREATININE METHODS. CLIN CHEM 2007;53:766-72 Performed By: #### L H #### [facility] [address] [place] [id number] GFR-NON AM. >60 Normal >60 [facility] Comment on above: Performed By: #### L H #### [facility] [address] [place] [address] Glucose [Mass/Vol] 74 mg/dL 74 - 99 FT-OIITF-Gslrw n 310 IVF Work Phone: Comment on above: Performed By: #### L H #### [facility] [address] [place] [address] HCO3 (Bld) [Moles/Vol] 25 mmol/L Normal 21 - 32 [facility] Comment on above: Performed By: #### L H #### [facility] [address] [place] [id number] Potassium [Moles/Vol] 4.1 mmol/L 3.5 - 5.3 NM-UPITP-Yswnr n 310 IVF Work Phone: Comment on above: Performed By: #### L H #### [facility] [address] [place] [address] Protein [Mass/Vol] 6.0 g/dL below low threshold 6.4 - 8.2 MM-NJPIX-Qgjsb n 310 IVF Work Phone: Comment on above: Performed By: #### L H #### [facility] [address] [place] [id number] Sodium [Moles/Vol] 136 mmol/L 136 - 145 WE-RAEKE-Kpksg n 310 IVF Work Phone: Comment on above: Performed By: #### L H #### [facility] [address] [place] [address] Urea nitrogen [Mass/Vol] 11 mg/dL 6 - 23 MP-JMPVW-Uxxnj n 310 IVF Work Phone: Comment on above: Performed By: #### L H #### [facility] [address] [place] [address] HCG, Beta Quantitativeon HCG.beta subunit Qn 7102 {mIU/mL} Abnormal RD-CBCNE-Borlx n 310 IVF Work Phone: Comment on [...] HCG measurement is performed using the [email or web address] Access Immunoassay which detects intact HCG and free beta HCG subunit. This test is not indicated for use as a tumor marker. HCG testing is performed using a different test methodology at [facility] than other [facility]. Direct result comparison should only be made within the same method. REF VALUESNON FEMALE <5MALES <5 HCG,BETA-QUANTITATIVEon 12- HCG,BETA-QUANTITA TIVE 7102 mIU/mL [facility] Comment on above: Result Comment: Low- [...] HCG measurement is performed using the [email or web address] Access Immunoassay which detects intact HCG and free beta HCG subunit. This test is not indicated for use as a tumor marker. HCG testing is performed using a different test methodology at [facility] than other [facility]. Direct result comparison should only be made within the same method. REF VALUES NON FEMALE <5 MALES <5 Performed By: #### L H #### [facility] [address] [place] [address] Hematologyon 11-09-2019 Platelets (Bld) [#/Vol] 411 {x10E9/L} 150 - 450 PP-PEHZY-Eopwb n 310 IVF Work Phone: RBC (Bld) [#/Vol] 4.44 {x10E12/L} See Below MG -OBGYN-Risma n 310 IVF Work Phone: Comment on above: Reference Range: 4.0 0 - 5.20 WBC (Bld) [#/Vol] 12.4 {x10E9/L} above high threshold 4.4 - 11.3 QA-DWZNI-Hrvpp n 310 IVF Work Phone: Metabolic Panelon 11-09-2019 CO2 [Moles/Vol] 25 mmol/L 21 - 32 MG-OBGYN- Risma n 310 IVF Work Phone: Otheron 11-09-2019 Albumin BCP dye [Mass/Vol] 3.8 g/dL 3.4 - 5.0 HP-XUEWX-Iifie n 310 IVF Work Phone: ALT With P-5'-P [Catalytic activity/Vol] 12 U/L 7 - 45 TT-BZTOH-Fnpkk n 310 IVF Work Phone: Comment on above: Patients treated wit h Sulfasalazine may generate falsely decreased results for ALT. AST With P-5'-P [Catalytic activity/Vol] 12 U/L 9 - 39 LY-BQULS-Dpaft n 310 IVF Work Phone: >60 >60 DA-XYDXO-Szsmu n 310 IVF Work Phone: Comment on [...] HCG measurement is performed using the [employer] [place] Access Immunoassay which detects intact HCG and free beta HCG subunit. This test is not indicated for use as a tumor marker. HCG testing is performed using a different test methodology at [facility] than other [facility]. Direct result comparison should only be made within the same method. REF VALUESNON FEMALE <5MALES <5 HCG,BETA-QUANTITATIVEon 10-15 HCG,BETA-QUANTITA TIVE 240 mIU/mL [facility] Comment on above: Result Comment: Low- [...] HCG measurement is performed using the [employer] [place] Access Immunoassay which detects intact HCG and free beta HCG subunit. This test is not indicated for use as a tumor marker. HCG testing is performed using a different test methodology at [facility] than other [facility]. Direct result comparison should only be made within the same method. REF VALUES NON FEMALE <5 MALES <5 Performed By: #### E STRA #### [facility] [address] [place] [address] ESTRADIOLon 10-14-2019 ESTRADIOL 1871 pg/mL Normal [facility] Comment on above: Result Comment: Estr adiol measurement is performed using the [employer] Access Immunoassay. Estradiol testing is performed using a different test methodology at [facility] than [facility]. Direct result comparison should only be made within the same method. REF VALUES FOLLICULAR PHASE 20-144 MID CYCLE 64-357 LUTEAL PHASE 56-214 POSTMENOPAUSE < 32 PREPUBERTY < 20 MALE 10-18Y < 20 ADULT MALE < 40 Performed By: #### E STRA #### [facility] [address] [place] [address] Estradiol, Serumon 9 E2 [Mass/Vol] 1871 pg/mL MG-OBGYN-Ri sma n 310 IVF Work Phone: Comment on above: Estradiol measuremen t is performed using the [employer] Access Immunoassay. Estradiol testing is performed using a different test methodology at [facility] than other [facility]. Direct result comparison should only be made within the same method.REF VALUESFOLLICULAR PHASE 20-144MID CYCLE 64-357LUTEAL PHASE 56-214POSTMENOPAUSE < 32PREPUBERTY < 20MALE 10-18Y < 20ADULT MALE < 40 PROGESTERONEon 10-14-2019 PROGESTERONE 1.0 ng/mL Normal [facility] Comment on above: Result Comment: Prog esterone is performed using the [employer] [place] Access Immunoassay. Progesterone testing is performed using a different test methodology at [facility] than other [facility]. Direct result comparison should only be made within the same method. REF VALUES MALE <0.2-0.8 FOLLICULAR PHASE <0.2-1.5 LUTEAL PHASE 7.4-15.4 POSTMENOPAUSAL <0.2-0.2 1ST TRIMESTER 12.0-84.0 2ND TRIMESTER 10.2-58.8 3RD TRIMESTER 46.5-160 Performed By: #### E BARBARA #### [facility] [address] [place] [address] Progesterone, Serumon 2018 Progesterone [Mass/Vol] 1.0 ng/mL HY-DZIBA-Yhzsm n 310 IVF Work Phone: Comment on above: Progesterone is perf ormed using the [employer] [place] Access Immunoassay. Progesterone testing is performed using a different test methodology at [facility] than other [facility]. Direct result comparison should only be made within the same method.REF VALUESMALE <0.2-0.8 FOLLICULAR PHASE <0.2-1.5 LUTEAL PHASE 7.4-15.4 POSTMENOPAUSAL <0.2-0.2 1ST TRIMESTER 12.0-84.0 2ND TRIMESTER 10.2-58.8 3RD TRIMESTER 46.5-160 ESTRADIOLon 10-11-2019 ESTRADIOL 284 pg/mL Normal [facility] Comment on above: Result Comment: Estr adiol measurement is performed using the [employer] [place] Access Immunoassay. Estradiol testing is performed using a different test methodology at [facility] than other [facility]. Direct result comparison should only be made within the same method. REF VALUES FOLLICULAR PHASE 20-144 MID CYCLE 64-357 LUTEAL PHASE 56-214 POSTMENOPAUSE < 32 PREPUBERTY < 20 MALE 10-18Y < 20 ADULT MALE < 40 Performed By: #### E STRA #### [facility] [address] [place] [address] Estradiol, Serumon 9 E2 [Mass/Vol] 284 pg/mL MG-OBGYN-Ri [facility] n 310 IVF Work Phone: Comment on above: Estradiol measuremen t is performed using the [employer] [place] Access Immunoassay. Estradiol testing is performed using a different test methodology at [facility] than other [facility]. Direct result comparison should only be made within the same method.REF VALUESFOLLICULAR PHASE 20-144MID CYCLE 64-357LUTEAL PHASE 56-214POSTMENOPAUSE < 32PREPUBERTY < 20MALE 10-18Y < 20ADULT MALE < 40 ESTRADIOLon 10-05-2019 ESTRADIOL 129 pg/mL Normal [facility] Comment on above: Result Comment: Estr adiol measurement is performed using the [employer] [place] Access Immunoassay. Estradiol testing is performed using a different test methodology at [facility] than other [facility]. Direct result comparison should only be made within the same method. REF VALUES FOLLICULAR PHASE 20-144 MID CYCLE 64-357 LUTEAL PHASE 56-214 POSTMENOPAUSE < 32 PREPUBERTY < 20 MALE 10-18Y < 20 ADULT MALE < 40 Performed By: #### E STRA #### [facility] [address] [place] [address] Estradiol, Serumon 9 E2 [Mass/Vol] 129 pg/mL MG-OBGYN-Ri [facility] n 310 IVF Work Phone: Comment on above: Estradiol measuremen t is performed using the [employer] [place] Access Immunoassay. Estradiol testing is performed using a different test methodology at [facility] than other [facility]. Direct result comparison should only be made within the same method.REF VALUESFOLLICULAR PHASE 20-144MID CYCLE 64-357LUTEAL PHASE 56-214POSTMENOPAUSE < 32PREPUBERTY < 20MALE 10-18Y < 20ADULT MALE < 40 PROGESTERONEon 10-05-2019 PROGESTERONE 0.2 ng/mL Normal [facility] Comment on above: Result Comment: Prog esterone is performed using the [email or web address] Access Immunoassay. Progesterone testing is performed using a different test methodology at [facility] than other [facility]. Direct result comparison should only be made within the same method. REF VALUES MALE <0.2-0.8 FOLLICULAR PHASE <0.2-1.5 LUTEAL PHASE 7.4-15.4 POSTMENOPAUSAL <0.2-0.2 1ST TRIMESTER 12.0-84.0 2ND TRIMESTER 10.2-58.8 3RD TRIMESTER 46.5-160 Performed By: #### E STRA #### [facility] [address] [place] [address] Progesterone, Serumon 2018 Progesterone [Mass/Vol] 0.2 ng/mL KB-RPJXC-Tqyxu n 310 IVF Work Phone: Comment on above: Progesterone is perf ormed using the [employer] Access Immunoassay. Progesterone testing is performed using a different test methodology at [facility] than other [facility]. Direct result comparison should only be made within the same method.REF VALUESMALE <0.2-0.8 FOLLICULAR PHASE <0.2-1.5 LUTEAL PHASE 7.4-15.4 POSTMENOPAUSAL <0.2-0.2 1ST TRIMESTER 12.0-84.0 2ND TRIMESTER 10.2-58.8 3RD TRIMESTER 46.5-160 ESTRADIOLon 10-02-2019 ESTRADIOL 357 pg/mL Normal [facility] Comment on above: Result Comment: Estr adiol measurement is performed using the [email or web address] Access Immunoassay. Estradiol testing is performed using a different test methodology at [facility] than other [facility]. Direct result comparison should only be made within the same method. REF VALUES FOLLICULAR PHASE 20-144 MID CYCLE 64-357 LUTEAL PHASE 56-214 POSTMENOPAUSE < 32 PREPUBERTY < 20 MALE 10-18Y < 20 ADULT MALE < 40 Performed By: #### E BARBARA #### [facility] [address] [place] [address] Estradiol, Serumon 9 E2 [Mass/Vol] 357 pg/mL MG-OBGYN-Cr ock er 206A IVF Work Phone: Comment on above: Estradiol measuremen t is performed using the [employer] Access Immunoassay. Estradiol testing is performed using a different test methodology at [facility] than other [facility]. Direct result comparison should only be made within the same method.REF VALUESFOLLICULAR PHASE 20-144MID CYCLE 64-357LUTEAL PHASE 56-214POSTMENOPAUSE < 32PREPUBERTY < 20MALE 10-18Y < 20ADULT MALE < 40 LUTEINIZING HORMONEon 2018 LUTEINIZING HORMONE 14.7 IU/L Normal [facility] Comment on above: Result Comment: Lute inizing Hormone [LH] is performed using the [employer] Access Immunoassay. LH testing is performed using a different test methodology at [facility] than other [facility]. Direct result comparison should only be made within the same method. REF VALUES FOLLICULAR PHASE 1.5-10.0 MID-CYCLE 13.0-72.0 LUTEAL PHASE 0.5-13.0 MENOPAUSE 15.0-65.0 PREPUBERTY 0- 3.0 CHILDREN 0- 6.0 ADULT MALE 1.0- 9.0 Performed By: #### E BARBARA #### [facility] [address] [place] [address] Luteinizing Hormone, Serumon 10-02-2019 Lutropin Qn 14.7 {IU/L} SP-PYTRO-Yic ck er 206A IVF Work Phone: Comment on above: Luteinizing Hormone [LH] is performed using the [employer] [place] Access Immunoassay. LH testing is performed using a different test methodology at [facility] than other [facility]. Direct result comparison should only be made within the same method.REF VALUESFOLLICULAR PHASE 1.5-10.0MID-CYCLE 13.0-72.0LUTEAL PHASE 0.5-13.0MENOPAUSE 15.0-65.0PREPUBERTY 0- 3.0CHILDREN 0- 6.0ADULT MALE 1.0- 9.0 PROGESTERONEon 10-02-2019 PROGESTERONE 0.1 ng/mL Normal [facility] Comment on above: Result Comment: Prog esterone is performed using the [employer] Access Immunoassay. Progesterone testing is performed using a different test methodology at [facility] than other [facility]. Direct result comparison should only be made within the same method. REF VALUES MALE <0.2-0.8 FOLLICULAR PHASE <0.2-1.5 LUTEAL PHASE 7.4-15.4 POSTMENOPAUSAL <0.2-0.2 1ST TRIMESTER 12.0-84.0 2ND TRIMESTER 10.2-58.8 3RD TRIMESTER 46.5-160 Performed By: #### E STRA #### [facility] [address] [place] [address] Progesterone, Serumon 2018 Progesterone [Mass/Vol] 0.1 ng/mL CW-QLJLD-Hqkwk er 206A IVF Work Phone: Comment on above: Progesterone is perf ormed using the [employer] [place] Access Immunoassay. Progesterone testing is performed using a different test methodology at [facility] than other [facility]. Direct result comparison should only be made within the same method.REF VALUESMALE <0.2-0.8 FOLLICULAR PHASE <0.2-1.5 LUTEAL PHASE 7.4-15.4 POSTMENOPAUSAL <0.2-0.2 1ST TRIMESTER 12.0-84.0 2ND TRIMESTER 10.2-58.8 3RD TRIMESTER 46.5-160 HCG,BETA-QUANTITATIVEon 07-17 HCG,BETA-QUANTITA TIVE 10 mIU/mL [facility] Comment on above: Result Comment: Low- [...] HCG measurement is performed using the [email or web address] Access Immunoassay which detects intact HCG and free beta HCG subunit. This test is not indicated for use as a tumor marker. HCG testing is performed using a different test methodology at [facility] than [facility]. Direct result comparison should only be made within the same method. REF VALUES NON FEMALE <5 MALES <5 Performed By: #### L H #### [facility] [address] [place] [address] LUTEINIZING HORMONEon 2018 LUTEINIZING HORMONE 57.0 IU/L Normal [facility] Comment on above: Result Comment: Lute inizing Hormone [LH] is performed using the [email or web address] Access Immunoassay. LH testing is performed using a different test methodology at [facility] than other [facility]. Direct result comparison should only be made within the same method. REF VALUES FOLLICULAR PHASE 1.5-10.0 MID-CYCLE 13.0-72.0 LUTEAL PHASE 0.5-13.0 MENOPAUSE 15.0-65.0 PREPUBERTY 0- 3.0 CHILDREN 0- 6.0 ADULT MALE 1.0- 9.0 Performed By: #### E STRA #### [facility] [address] [place] [address] PROGESTERONEon 08-13-2019 PROGESTERONE 6.7 ng/mL Normal [facility] Comment on above: Result Comment: Prog esterone is performed using the [email or web address] Access Immunoassay. Progesterone testing is performed using a different test methodology at [facility] than [facility]. Direct result comparison should only be made within the same method. REF VALUES MALE <0.2-0.8 FOLLICULAR PHASE <0.2-1.5 LUTEAL PHASE 7.4-15.4 POSTMENOPAUSAL <0.2-0.2 1ST TRIMESTER 12.0-84.0 2ND TRIMESTER 10.2-58.8 3RD TRIMESTER 46.5-160 Performed By: #### L H #### [facility] [address] [place] [address] ESTRADIOLon 08-12-2019 ESTRADIOL 1380 pg/mL Normal [facility] Comment on above: Result Comment: Estr adiol measurement is performed using the [email or web address] Access Immunoassay. Estradiol testing is performed using a different test methodology at [facility] than [facility]. Direct result comparison should only be made within the same method. REF VALUES FOLLICULAR PHASE 20-144 MID CYCLE 64-357 LUTEAL PHASE 56-214 POSTMENOPAUSE < 32 PREPUBERTY < 20 MALE 10-18Y < 20 ADULT MALE < 40 Performed By: #### L H #### [facility] [address] [place] [address] PROGESTERONEon 08-12-2019 PROGESTERONE 1.7 ng/mL Normal [facility] Comment on above: Result Comment: Prog esterone is performed using the [employer] [place] Access Immunoassay. Progesterone testing is performed using a different test methodology at [facility] than other [facility]. Direct result comparison should only be made within the same method. REF VALUES MALE <0.2-0.8 FOLLICULAR PHASE <0.2-1.5 LUTEAL PHASE 7.4-15.4 POSTMENOPAUSAL <0.2-0.2 1ST TRIMESTER 12.0-84.0 2ND TRIMESTER 10.2-58.8 3RD TRIMESTER 46.5-160 Performed By: #### L H #### [facility] [address] [place] [address] ESTRADIOLon 08-11-2019 ESTRADIOL 874 pg/mL Normal [facility] Comment on above: Result Comment: Estr adiol measurement is performed using the [employer] [place] Access Immunoassay. Estradiol testing is performed using a different test methodology at [facility] than other [facility]. Direct result comparison should only be made within the same method. REF VALUES FOLLICULAR PHASE 20-144 MID CYCLE 64-357 LUTEAL PHASE 56-214 POSTMENOPAUSE < 32 PREPUBERTY < 20 MALE 10-18Y < 20 ADULT MALE < 40 Performed By: #### L H #### [facility] [address] [place] [address] PROGESTERONEon 08-11-2019 PROGESTERONE 1.2 ng/mL Normal [facility] Comment on above: Result Comment: Prog esterone is performed using the [employer] [place] Access Immunoassay. Progesterone testing is performed using a different test methodology at [facility] than other [facility]. Direct result comparison should only be made within the same method. REF VALUES MALE <0.2-0.8 FOLLICULAR PHASE <0.2-1.5 LUTEAL PHASE 7.4-15.4 POSTMENOPAUSAL <0.2-0.2 1ST TRIMESTER 12.0-84.0 2ND TRIMESTER 10.2-58.8 3RD TRIMESTER 46.5-160 Performed By: #### L H #### [facility] [address] [place] [address] ESTRADIOLon 08-09-2019 ESTRADIOL 385 pg/mL Normal [facility] Comment on above: Result Comment: Estr adiol measurement is performed using the [employer] [place] Access Immunoassay. Estradiol testing is performed using a different test methodology at [facility] than other [facility]. Direct result comparison should only be made within the same method. REF VALUES FOLLICULAR PHASE 20-144 MID CYCLE 64-357 LUTEAL PHASE 56-214 POSTMENOPAUSE < 32 PREPUBERTY < 20 MALE 10-18Y < 20 ADULT MALE < 40 Performed By: #### L H #### [facility] [address] [place] [address] ESTRADIOLon 08-07-2019 ESTRADIOL 80 pg/mL Normal [facility] Comment on above: Result Comment: Estr adiol measurement is performed using the [employer] Access Immunoassay. Estradiol testing is performed using a different test methodology at [facility] than [facility]. Direct result comparison should only be made within the same method. REF VALUES FOLLICULAR PHASE 20-144 MID CYCLE 64-357 LUTEAL PHASE 56-214 POSTMENOPAUSE < 32 PREPUBERTY < 20 MALE 10-18Y < 20 ADULT MALE < 40 Performed By: #### L H #### [facility] [address] [place] [address] ESTRADIOLon 08-04-2019 ESTRADIOL 58 pg/mL Normal [facility] Comment on above: Result Comment: Estr adiol measurement is performed using the [employer] Access Immunoassay. Estradiol testing is performed using a different test methodology at [facility] than [facility]. Direct result comparison should only be made within the same method. REF VALUES FOLLICULAR PHASE 20-144 MID CYCLE 64-357 LUTEAL PHASE 56-214 POSTMENOPAUSE < 32 PREPUBERTY < 20 MALE 10-18Y < 20 ADULT MALE < 40 Performed By: #### L H #### [facility] [address] [place] [address] ESTRADIOLon 07-07-2019 ESTRADIOL 110 pg/mL Normal [facility] Comment on above: Result Comment: Estr adiol measurement is performed using the [employer] Access Immunoassay. Estradiol testing is performed using a different test methodology at [facility] than [facility]. Direct result comparison should only be made within the same method. REF VALUES FOLLICULAR PHASE 20-144 MID CYCLE 64-357 LUTEAL PHASE 56-214 POSTMENOPAUSE < 32 PREPUBERTY < 20 MALE 10-18Y < 20 ADULT MALE < 40 Performed By: #### L H #### [facility] [address] [place] [address] NR MRI SELLA WO/Won 05-31-20 19 NR MRI SELLA WO/W Patient Name: KIARA ASHLEY STUDY: NR MRI SELLA WO/W; 05/31/2019 2:00 pm INDICATION: History of 7 mm microadenoma 2008. COMPARISON: None. ACCESSION NUMBER(S): [id number] ORDERING CLINICIAN: SHAHLA HEALY TECHNIQUE: High resolution [...] magnum. Electronically signed by: PHYSICIAN ELLEN Normal [facility] ESTRADIOLon 05-05-2019 ESTRADIOL 217 pg/mL Normal [facility] Comment on above: Result Comment: Estr adiol measurement is performed using the [email or web address] Access Immunoassay. Estradiol testing is performed using a different test methodology at [facility] than other [facility]. Direct result comparison should only be made within the same method. REF VALUES FOLLICULAR PHASE 20-144 MID CYCLE 64-357 LUTEAL PHASE 56-214 POSTMENOPAUSE < 32 PREPUBERTY < 20 MALE 10-18Y < 20 ADULT MALE < 40 Performed By: #### E STRA #### [facility] [address] [place] [address] LUTEINIZING HORMONEon 2018 LUTEINIZING HORMONE 4.4 IU/L Normal [facility] Comment on above: Result Comment: Lute inizing Hormone [LH] is performed using the [employer] Access Immunoassay. LH testing is performed using a different test methodology at [facility] than [facility]. Direct result comparison should only be made within the same method. REF VALUES FOLLICULAR PHASE 1.5-10.0 MID-CYCLE 13.0-72.0 LUTEAL PHASE 0.5-13.0 MENOPAUSE 15.0-65.0 PREPUBERTY 0- 3.0 CHILDREN 0- 6.0 ADULT MALE 1.0- 9.0 Performed By: #### L H #### [facility] [address] [place] [address] ESTRADIOLon 04-11-2019 ESTRADIOL 118 pg/mL Normal [facility] Comment on above: Result Comment: Estr adiol measurement is performed using the [employer] [place] Access Immunoassay. Estradiol testing is performed using a different test methodology at [facility] than [facility]. Direct result comparison should only be made within the same method. REF VALUES FOLLICULAR PHASE 20-144 MID CYCLE 64-357 LUTEAL PHASE 56-214 POSTMENOPAUSE < 32 PREPUBERTY < 20 MALE 10-18Y < 20 ADULT MALE < 40 Performed By: #### E STRA #### [facility] [address] [place] [address] LUTEINIZING HORMONEon 2018 LUTEINIZING HORMONE 7.7 IU/L Normal [facility] Comment on above: Result Comment: Lute inizing Hormone [LH] is performed using the [employer] Access Immunoassay. LH testing is performed using a different test methodology at [facility] than [facility]. Direct result comparison should only be made within the same method. REF VALUES FOLLICULAR PHASE 1.5-10.0 MID-CYCLE 13.0-72.0 LUTEAL PHASE 0.5-13.0 MENOPAUSE 15.0-65.0 PREPUBERTY 0- 3.0 CHILDREN 0- 6.0 ADULT MALE 1.0- 9.0 Performed By: #### L H #### [facility] [address] [place] [address] PROGESTERONEon 04-11-2019 PROGESTERONE 0.1 ng/mL Normal [facility] Comment on above: Result Comment: Prog esterone is performed using the [email or web address] Access Immunoassay. Progesterone testing is performed using a different test methodology at [facility] than other [facility]. Direct result comparison should only be made within the same method. REF VALUES MALE <0.2-0.8 FOLLICULAR PHASE <0.2-1.5 LUTEAL PHASE 7.4-15.4 POSTMENOPAUSAL <0.2-0.2 1ST TRIMESTER 12.0-84.0 2ND TRIMESTER 10.2-58.8 3RD TRIMESTER 46.5-160 Performed By: #### P SVEN #### [facility] [address] [place] [address] ESTRADIOLon 03-17-2019 ESTRADIOL 120 pg/mL Normal [facility] Comment on above: Result Comment: Estr adiol measurement is performed using the [email or web address] Access Immunoassay. Estradiol testing is performed using a different test methodology at [facility] than [facility]. Direct result comparison should only be made within the same method. REF VALUES FOLLICULAR PHASE 20-144 MID CYCLE 64-357 LUTEAL PHASE 56-214 POSTMENOPAUSE < 32 PREPUBERTY < 20 MALE 10-18Y < 20 ADULT MALE < 40 Performed By: #### E STRA #### [facility] [address] [place] [address] LUTEINIZING HORMONEon 2018 LUTEINIZING HORMONE 6.8 IU/L Normal [facility] Comment on above: Result Comment: Lute inizing Hormone [LH] is performed using the [email or web address] Access Immunoassay. LH testing is performed using a different test methodology at [facility] than other [facility]. Direct result comparison should only be made within the same method. REF VALUES FOLLICULAR PHASE 1.5-10.0 MID-CYCLE 13.0-72.0 LUTEAL PHASE 0.5-13.0 MENOPAUSE 15.0-65.0 PREPUBERTY 0- 3.0 CHILDREN 0- 6.0 ADULT MALE 1.0- 9.0 Performed By: #### L H #### [facility] [address] [place] [address] ESTRADIOLon 02-20-2019 ESTRADIOL 521 pg/mL Normal [facility] Comment on above: Result Comment: Estr adiol measurement is performed using the [email or web address] Access Immunoassay. Estradiol testing is performed using a different test methodology at [facility] than other [facility]. Direct result comparison should only be made within the same method. REF VALUES FOLLICULAR PHASE 20-144 MID CYCLE 64-357 LUTEAL PHASE 56-214 POSTMENOPAUSE < 32 PREPUBERTY < 20 MALE 10-18Y < 20 ADULT MALE < 40 Performed By: #### E STRA #### [facility] [address] [place] [address] LUTEINIZING HORMONEon 2018 LUTEINIZING HORMONE 3.5 IU/L Normal [facility] Comment on above: Result Comment: Lute inizing Hormone [LH] is performed using the [email or web address] Access Immunoassay. LH testing is performed using a different test methodology at [facility] than [facility]. Direct result comparison should only be made within the same method. REF VALUES FOLLICULAR PHASE 1.5-10.0 MID-CYCLE 13.0-72.0 LUTEAL PHASE 0.5-13.0 MENOPAUSE 15.0-65.0 PREPUBERTY 0- 3.0 CHILDREN 0- 6.0 ADULT MALE 1.0- 9.0 Performed By: #### L H #### [facility] [address] [place] [address] Vital Signs Date Time Vital Sign Value Performing Clinician Modesto golden 08-15-2024 14:040 Body height 157.5 cm [employer] Work Phone: [facility] [employer] 08-15-2024 14: Body mass index (BMI) [Ratio] 30.54 kg/m2 [employer] Work Phone: [facility] [employer] 08-15-2024 14: Body weight 75.75 kg [employer] Phone: [facility] [employer] 08-15-2024 14:040 Diastolic blood pressure 76 mm[Hg] [employer] Phone: [facility] 08-15-2024 14:27-0400 Systolic blood pressure 114 mm[Hg] Demario Quintin DO Work Phone: [facility] 12-27-2023 10:57-0500 Body mass index (BMI) [Ratio] 34.84 kg/m2 Bere Steel PA Work Phone: [facility] 12-27-2023 10:57-0500 Body weight 83.64 kg Bere Almeidaey PA Work Phone: [facility] 12-27-2023 10:57-0500 Diastolic blood pressure 68 mm[Hg] Bere Steel PA Work Phone: [facility] 12-27-2023 10:57-0500 Systolic blood pressure 110 mm[Hg] Bere Steel PA Work Phone: [facility] 02-27-2023 11:35-0400 Body mass index (BMI) [Ratio] 29.26 kg/m2 Evelyn Ana [facility] 02-27-2023 11:35-0400 Body temperature 98.8 [degF] Evelyn Ana Work Phone: [facility] 02-27-2023 11:35-0400 Body weight 72.58 kg Evelyn Ana Work Phone: [facility] 02-27-2023 11:35-0400 Diastolic blood pressure 66 mm[Hg] Evelyn Ana Work Phone: [facility] 02-27-2023 11:35-0400 Heart rate 88 /min Evelyn Ana Work Phone: [facility] 02-27-2023 11:35-0400 Respiratory rate 14 /min Evelyn Ana Work Phone: [facility] 02-27-2023 11:35-0400 SaO2% (BldA) [Mass fraction] 100 % Evelyn Grubererhorn Work Phone: [facility] [employer] 02-27-2023 11:35-0400 Systolic blood pressure 103 mm[Hg] Evelyn Grubererhorn Work Phone: [facility] 06-19-2021 14:03-0400 Body height 157.48 cm Evelyn Husain Ana Work Phone: BC-DHSGH-Cfvpmr 310 IVF Work Phone: 06-19-2021 14:03-0400 Body mass index (BMI) [Ratio] 29.26 kg/m2 Evelyn Husain Ana Work Phone: XB-BTWEI-Sbdtzr 310 IVF Work Phone: 06-19-2021 14:03-0400 Body surface area Derived from formula 1.74 m2 Evelyn Husain Ana Work Phone: AK-HVDZT-Edaspy 310 IVF Work Phone: 06-19-2021 14:03-0400 Body weight 72.58 kg Evelyn Husain Ana Work Phone: MT-QBLLK-Eycljp 310 IVF Work Phone: 06-19-2021 14:03-0400 1 1 Evelyn Husain Ana Work Phone: JC-ABPXF-Ypmwno 310 IVF Work Phone: Comment on above: GRAV PARA 06-19-2021 14:03-0400 0 1 Evelyn Husain Ana Work Phone: XL-UKWDY-Yllvww 310 IVF Work Phone: Comment on above: [employer] 06-07-2020 10:41-0400 BMI (Body Mass Index) 34.93 kg/m2 King Lappen AT-WAWZQ-FDF [address] [place] Work Phone: 06-07-2020 10:41-0400 Body weight 86.64 kg King Lappen ZX-LSMUI-IQV 120 0 [place] Work Phone: 06-07-2020 10:41-0400 BP Diastolic 76 mm[Hg] King Lappen MS-XWMGY-LLT 120 0 [place] Work Phone: 06-07-2020 10:41-0400 BP Systolic 111 mm[Hg] King Lappen GR-MHGYS-JPF 120 0 [place] Work Phone: 06-07-2020 10:41-0400 BSA (Body Surface Area) 1.87 m2 King Lappen YZ-KMHIB-NHM 1200 [place] Work Phone: 06-07-2020 10:41-0400 Pulse (Heart Rate) 101 /min King Lappen RN-FRUFW-KFP 1200 [place] Work Phone: 06-07-2020 10:41-0400 0 1 King Lappen QO-DZWKA-MKA 120 0 [place] Work Phone: Comment on above: [employer] 12-25-2019 10:58-0500 BMI (Body Mass Index) 30.18 kg/m2 King Lappen AW-BVPSL-DSG 1200 [place] Work Phone: 12-25-2019 10:58-0500 Body weight 74.84 kg King Lappen SF-NQNXD-WFW 120 0 [place] Work Phone: 12-25-2019 10:58-0500 BP Diastolic 68 mm[Hg] King Lappen XA-MDDBC-SDI 120 0 [place] Work Phone: 12-25-2019 10:58-0500 BP Systolic 112 mm[Hg] King Lappen DK-EIWAZ-BDA 120 0 [place] Work Phone: 12-25-2019 10:58-0500 BSA (Body Surface Area) 1.76 m2 King Lappen NI-EGECL-YGS 1200 [place] Work Phone: 11-09-2019 11:28-0500 Body Temperature 98.78 [degF] Kelechi Gage OS-ZWYOT-Oglzlg 310 IVF Work Phone: 11-09-2019 11:28-0500 BP Diastolic 76 mm[Hg] Kelechi TONGVH-EIFSV-Qtaxgb 310 IVF Work Phone: 11-09-2019 11:28-0500 BP Systolic 112 mm[Hg] Kelechi TONGRS-HPYLV-Acctmf 310 IVF Work Phone: 11-09-2019 11:28-0500 Respiratory Rate 96 /min Kelechi TONGWW-YKEZY-Thksgs 310 IVF Work Phone: Encounters Encounter Date Encounter Type Care Provider Facility Start: 08-15-2024 End: 08-15-2024 Office outpatient visit 15 minutes Demario Quintin DO Work Phone: [facility] Comment on above: Abnormal uterine ble eding (AUB); Menorrhagia with regular cycle; PCOS (polycystic ovarian syndrome); H/O blood clots Start: 08-15-2024 End: 08-15-2024 Bamboo flowsheet Demario Quintin DO Work Phone: [facility] Start: 08-15-2024 End: 08-15-2024 Bamboo flowsheet Demario Quintin DO Work Phone: [facility] Start: 08-15-2024 End: 08-15-2024 Clinisync Result Encounter Demario Quintin DO Work Phone: [facility] External Department Unsolicited Start: 08-15-2024 End: 08-15-2024 ambulatory DEMARIO QUINTIN Not Available Start: 08-15-2024 ambulatory DEMARIO R [facility] Start: 07-18-2024 ambulatory DEMARIO R QUINTIN [facility] Start: 06-22-2024 End: 07-16-2024 ambulatory DEMARIO R [facility] Start: 05-11-2024 End: 06-15-2024 ambulatory DEMARIO R [facility] Start: 04-17-2024 End: 04-17-2024 ambulatory BERE ELSA Not Available Start: 03-27-2024 End: 03-27-2024 ambulatory BERE ELSA Not Available Start: 02-29-2024 End: 02-29-2024 ambulatory DEMARIO QUINTIN Not Available Start: 02-22-2024 End: 02-22-2024 ambulatory BERE ELSA Not Available Start: 02-07-2024 End: 02-07-2024 ambulatory DEMARIO QUINTIN Not Available Start: 01-24-2024 End: 01-24-2024 ambulatory BERE STEEL Not Available Start: 01-10-2024 End: 01-11-2024 ambulatory Zoya Cheung Iftikhar COOK 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 Facility:[facility] Start: 12-27-2023 End: 12-27-2023 flow sheet Bere JOHNSON Work Phone: [facility] OB Comment on above: Third trimester preg teddy; First trimester ; Hypothyroidism, unspecified type (CMS/HCC); Hypothyroidism (acquired) (CMS/HCC); H/O blood clots; Excessive growth affecting management of in third trimester, single or unspecified fetus Start: 12-27-2023 End: 12-27-2023 ambulatory BERE STEEL Not Available Start: 11-30-2023 End: 11-30-2023 ambulatory DEMARIO QUINTIN Not Available Start: 11-03-2023 End: 11-03-2023 ambulatory DEMARIO QUINTIN Not Available Start: 10-05-2023 End: 10-05-2023 ambulatory BERE STEEL Not Available Start: 09-14-2023 End: 09-14-2023 ambulatory Lc Waite Facility:[facility] Start: 02-27-2023 End: 02-27-2023 Emergency department patient visit EVELYN GARCÍARN [facility] Start: 02-27-2023 End: 02-27-2023 Emergency department patient visit Evelyn Ana Work Phone: [facility] ED Comment on above: Sprain of left ankle , unspecified ligament, initial encounter (Primary Dx) Start: 01-11-2023 End: 01-11-[address] DEMARIO RIBEIRO . Facility:[facility] Start: 09-22-2022 End: 09-22-2022 Emergency department patient visit JAMI [facility] Start: 03-10-[address] EVELYN PEREZ Facility:H1 Start: 03-03-[address] EVELYN PEREZ Facility:H1 Start: 02-24-2022 End: 02-24-[address] EVELYN PEREZ Facility:H1 Start: 02-18-2022 End: 02-21-2022 Evaluation and management of inpatient DR DOMENIC RONQUILLO . Facility:H1 Start: 02-17-2022 End: 02-17-[address] JESSE THOMAS Facility:H1 Start: 02-13-2022 End: 02-13-[address] DOMENIC RONQUILLO . Facility:H1 Start: 02-10-2022 End: 02-10-[address] DEAMRIO RIBEIRO . Facility:H1 Start: 02-06-2022 End: 02-06-[address] DEMARIO RIBEIRO . Facility:H1 Start: 02-03-2022 End: 02-03-[address] JESSE THOMAS Facility:H1 Start: 02-02-2022 End: 02-02-[address] EVELYN PEREZ Facility:H1 Start: 01-27-[address] EVELYN PEREZ Facility:H1 Start: 12-27-2021 End: 12-27-2021 ambulatory Sabina Barnhart Other [facility] Other Start: 12-27-2021 Office outpatient visit 5 minutes Sabina Barnhart [facility] Start: 07-16-2021 Patient encounter procedure Evelyn Perez Work Phone: TV-CYHHC-Irkimq 310 IVF Work Phone: Start: 07-07-2021 AUDIT Evelyn santana Work Phone: RX-RVCTR-Etotjy 310 IVF Work Phone: Start: 07-07-2021 Chart Update Evelyn santana Work Phone: CW-NYBTU-Ogdksb 310 IVF Work Phone: Start: 07-02-2021 Telephone encounter Evelyn Husain Alejandro higginbothamerhorn Work Phone: OC-AZYLV-Xkieph 310 IVF Work Phone: Start: 06-19-2021 Patient encounter procedure Evelyn Husain Ana Work Phone: UO-ZMFSL-Rffsde 310 IVF Work Phone: Start: 06-07-2020 Patient encounter procedure King Lappen CP-WYMNB-WXV 1200 [place] Work Phone: Start: 04-24-2020 Patient encounter procedure King Lappen AE-GXMKU-XPD 1200 [place] Work Phone: Start: 02-20-2020 Patient encounter procedure King Lappen CM-BHFDS-KGS 1200 [place] Work Phone: Start: 02-14-2020 Patient encounter procedure King Lappen CA-XXMFL-QCA 1200 [place] Work Phone: Start: 01-23-2020 Patient encounter procedure King Lappen BO-UAJTR-NOR 1200 [place] Work Phone: Start: 12-25-2019 Patient encounter procedure King Lappen EJ-KYDWA-JMP 1200 [place] Work Phone: Start: 11-21-2019 Patient encounter procedure King Lappen FH-WCFRS-RJD 1200 [place] Work Phone: Start: 11-16-2019 Patient encounter procedure Kelechi Gage MP-Reproductive Endocrinology-Haslet 206 Work Phone: Start: 11-14-2019 Patient encounter procedure Kelechi Gage PM-HVFNH-Jcqouc 310 IVF Work Phone: Start: 11-09-2019 Patient encounter procedure Kelechi Gage KK-WUWKQ-Mfwmrt 310 IVF Work Phone: Start: 11-02-2019 Patient encounter procedure Kelechi Gage MP-Reproductive Endocrinology-[place] Work Phone: Start: 10-21-2019 Patient encounter procedure Kelechi Gage MP-Reproductive Endocrinology-[place] Work Phone: Start: 10-14-2019 Patient encounter procedure Kelechi TONGEQ-XHDST-Oetxcp 310 IVF Work Phone: Start: 10-11-2019 Patient encounter procedure Kelechi TONGTD-LLRZO-Fmznss 310 IVF Work Phone: Start: 10-05-2019 Patient encounter procedure Kelechi TONGXH-TSPXN-Ackxmc 320 Work Phone: Start: 10-02-2019 Patient encounter procedure Kelechi TONGOL-TLSQF-Wnxokrk 206A IVF Work Phone: Start: 08-14-2019 Patient encounter procedure Kelechi Gage ST-FVPAN-Yztfms 310 IVF Work Phone: Start: 08-13-2019 Patient encounter procedure Kelechi TONGZR-MYAUN-Jwrwdg 310 IVF Work Phone: Start: 08-12-2019 Patient encounter procedure Kelechi TONGFM-CVLCD-Wahkvt 310 IVF Work Phone: Start: 08-11-2019 Patient encounter procedure Kelechi TONGYF-FHMQL-Cpeihq 310 IVF Work Phone: Start: 08-09-2019 Patient encounter procedure Kelechi TONGFR-QTDZI-Ornubt 310 IVF Work Phone: Start: 08-07-2019 Patient encounter procedure Kelechi TONGQW-WBJPJ-Mupqck 310 IVF Work Phone: Start: 08-04-2019 Patient encounter procedure Kelechi TONGQL-ZHBCV-Sdhzas 310 IVF Work Phone: Start: 07-07-2019 Patient encounter procedure Kelechi Gage IM-VOJRT-Reqwei 310 IVF Work Phone: Start: 06-08-2019 Patient encounter procedure Kelechi Gage YW-GXXQC-Cjgozz 310 IVF Work Phone: Start: 05-17-2019 Patient encounter procedure Kelechi Gage BP-SNJQK-Kfqdlp 310 IVF Work Phone: Start: 05-08-2019 Patient encounter procedure Kelechi Gage WZ-LDPBR-Ndkpmi 310 IVF Work Phone: Start: 05-05-2019 Patient encounter procedure Kelechi Gage ES-KVEUQ-Rilscl 310 IVF Work Phone: Start: 04-13-2019 Patient encounter procedure Kelechi Gage PI-TLADO-Tpjzxy 310 IVF Work Phone: Start: 04-11-2019 Patient encounter procedure Kelechi Gage ZF-LIGVA-Reaevk 310 IVF Work Phone: Start: 03-20-2019 Patient encounter procedure Kelechi Gage CP-QWDEY-Kqmefy 310 IVF Work Phone: Start: 03-17-2019 Patient encounter procedure Kelechi Gage RQ-VVMNY-Akathl 310 IVF Work Phone: Start: 02-22-2019 Patient encounter procedure Kelechi Gage WR-YEALC-Khpctb 310 IVF Work Phone: Start: 02-20-2019 Patient encounter procedure Kelechi Gage DV-MLAVF-Clezmn 310 IVF Work Phone: Start: 02-13-2019 Patient encounter procedure Bruce Montiel Mayes Facility:[facility] [place] [facility] Start: 02-08-2019 End: 02-12-2019 Patient encounter procedure Bruce Mayes Facility:[facility] [place] [facility] Start: 01-19-2019 Patient encounter procedure Kelechi Gage LR-BBTND-Nliucn 310 IVF Work Phone: Patient encounter status Evelyn Perez Work Phone: TV-EKQZY-Bzkrhs 310 IVF Work Phone: Procedures Date Procedure Procedure Detail Performing Clinician Start: 08-15-2024 ALL CBC WITH AUTO DIFF Demario Quintin DO Work Phone: Start: 02-27-2023 Radex ankle complete minimum 3 [...] Gage Start: 10-05-2019 Assay of estradiol Arsenio stacy Too Start: 10-05-2019 IO Ultrasound, limit ed pelvic, [...] Treatment Date Care Activity Detail Author Start: 10-31-2024 End: 10-31-2024 Patient encounter procedure 10/31/2024 9:20 AM EST Office Visit [facility] [address] [place] [address] Demario Ribeiro, DO [address] [place] [address] [facility] Start: 08-15-2024 End: 08-15-2024 Patient encounter procedure 08/15/2024 2:20 PM EDT Office Visit [facility] [address] [place] [id number] Demario Ribeiro, DO [address] [place] [address] Arrived [facility] Comment on above: Arrived Start: 08-15-2024 End: 08-15-2025 ANTI XA LMWH ([facility]) ANTI XA LMWH ([facility]) Lab Routine Abnormal uterine bleeding (AUB) Menorrhagia with regular cycle H/O blood clots Expected: 08/15/2024 (Approximate), Expires: 08/15/2025 [facility] Comment on above: Expected: 08/15/2024 (Approximate), Expires: 08/15/2025 Start: 08-15-2024 End: 08-15-2025 aPTT in Blood by Coagulation assay APTT Lab Routine Menorrhagia with regular cycle Expected: 08/15/2024 (Approximate), Expires: 08/15/2025 [facility] Comment on above: Expected: 08/15/2024 (Approximate), Expires: 08/15/2025 Start: 08-15-2024 End: 08-15-2025 DHEA DHEA Lab Routine PCOS (polycystic ovarian syndrome) Expected: 08/15/2024 (Approximate), Expires: 08/15/2025 [facility] Comment on above: Expected: 08/15/2024 (Approximate), Expires: 08/15/2025 Start: 08-15-2024 End: 08-15-2025 US for US PELVIS-TRANSVAG IF INDICATED Imaging Routine Menorrhagia with regular cycle Expected: 08/15/2024 (Approximate), Expires: 08/15/2025 [facility] Comment on above: Expected: 08/15/2024 (Approximate), Expires: 08/15/2025 Start: 02-07-2024 End: 02-07-2024 Patient encounter procedure 02/07/2024 9:40 AM EDT Routine [facility] [address] [place], [place] [phone] Demario Ribeiro, DO [address] [place] [address] [facility] Start: 02-07-2024 End: 02-07-2024 Professional / ancillary services management 02/07/2024 9:00 AM EDT Ancillary Procedure [facility] [address] [place], [place] [id number] [facility] Start: 01-24-2024 End: 01-24-2024 Patient encounter procedure 01/24/2024 9:30 AM EDT Routine [facility] [address] [place], [place] [address] Bere Steel PA [address] [place] [address] [facility] Start: 01-10-2024 End: 01-10-2024 Patient encounter procedure 01/10/2024 2:20 PM EST Routine [facility] [address] [place], [place] [id number] Demario Ribeiro, DO [address] [place] [address] [facility] Start: 01-10-2024 End: 01-10-2024 Professional / ancillary services management 01/10/2024 2:00 PM EST Ancillary Procedure [facility] [address] [facility] [address] [place] [address] [facility] Start: 12-27-2023 End: 12-27-2024 US biophysical profile w non stress test US biophysical profile w non stress test Imaging Routine Hypothyroidism (acquired) (CMS/HCC) H/O blood clots Expected: 12/27/2023 (Approximate), Expires: 12/27/2024 [facility] Work Phone: Comment on above: Expected: [...] Influenza vaccination Flu vacc ine (Season Ended) [facility] Start: 2021 Screening for malignant neoplasm of cervix [facility] Start: 07-25-2021 ULTRASOUND, Provider : OBGYN IVF RDMS ARDEN 1,[facility], Status: Pen, Time: 9:00 AM ULTRASOUND, Provider: OBGYN IVF RDMS ARDEN 1,MG OBG[facility], Status: Pen, Time: 9:00 AM IC-YHWQY-Xdbsfo 310 IVF Work Phone: Start: 07-16-2021 ULTRASOUND, Provider : OBGYN IVF RDMS [id number] 1,[facility] OBG[facility], Status: Pen, Time: 1:00 PM ULTRASOUND, Provider: OBGYN IVF RDMS [id number] 1,[facility] OBG[facility], Status: Pen, Time: 1:00 PM NG-SRZFY-Eviarf 310 IVF Work Phone: Start: 07-07-2021 ULTRASALIN, Provider : Miguel A Barrera, Status: Pen, Time: 10:00 AM ULTRASALIN, Provider: Miguel A Barrera, Status: Pen, Time: 10:00 AM JW-LCMHP-Jouwue 310 IVF Work Phone: Start: 06-05-2020 MAC Imaging Order MG-FLEECER-MAC 1200 [place] Work Phone: Start: 11-16-2019 IO Ultrasound, -Reproductive Endocrinology-[facility] chastity 206 Work Phone: Start: 11-14-2019 Blood count complete auto&auto difrntl wbc Complete Blood Count + Differential PR-ZGVBZ-Rjnqht 310 IVF Work Phone: Start: 11-14-2019 Comprehensive metabolic 2000 panel VY-BWUQC-Qnqtzi 310 IVF Work Phone: Start: 11-02-2019 Gonadotropin chorion ic quantitative HCG, Beta Quantitative -Reproductive Endocrinology-[facility] chastity 206 Work Phone: Start: 10-11-2019 IO Ultrasound, limited pelvic, follicle monitoring CD-LXPKC-Mxfsxf 310 IVF Work Phone: Start: 10-05-2019 IO Ultrasound, limited pelvic, follicle monitoring FZ-WAVIC-Qykdkb 320 Work Phone: Start: 2012 Screening for malignant neoplasm of cervix Pap smear [facility] Start: 2010 DTaP/Tdap/Td vaccine (1 - Tdap) DTaP/Tdap/Td vaccine (1 - Tdap) [facility] Start: 2009 Hepatitis C screening Hepatitis C sc reen [facility] Start: 2006 HIV screening HIV screen [facility] Start: 2003 Depression Screen Depression Screen [facility] Start: 1992 Varicella vaccine (1 of 2 - 2-dose childhood series) Varicella vaccine (1 of 2 - 2-dose childhood series) [facility] Start: 03-02-1992 COVID-19 Vaccine (#1) COVID-19 Vacci ne (#1) [facility] Assay of estradiol Estradiol, Serum MG-FLEECER-Risman 310 IVF Work Phone: Comment on above: Approx [id number] Approx [id number] Approx [id number] Assay of progesterone Progesterone, Serum BQ-ALDJU-Ermudz 310 IVF Work Phone: Comment on above: Approx [id number] CBC W Auto Differential panel - Blood CBC and differential Lab Routine PCOS (polycystic ovarian syndrome) Ordered: 08/15/2024 [facility] Comment on above: Ordered: 08/15/2024 DHEA-sulfate DHEA-sulfate Lab Routine PCOS (polycystic ovarian syndrome) Ordered: 08/15/2024 [facility] Comment on above: Ordered: 08/15/2024 Estradiol Estradiol Lab Ro utine Abnormal uterine bleeding (AUB) Menorrhagia with regular cycle H/O blood clots Ordered: 08/15/2024 [facility] Comment on above: Ordered: 08/15/2024 Follicle stimulating hormone Follicle stimulating hormone Lab Routine PCOS (polycystic ovarian syndrome) Ordered: 08/15/2024 [facility] Comment on above: Ordered: 08/15/2024 Gonadotropin luteinizing hormone Luteinizing Hormone, Serum NV-OKAOJ-Oclyio 310 IVF Work Phone: Comment on above: Approx [id number] hCG, quantitative, hCG, quantitative, Lab Routine Menorrhagia with regular cycle Ordered: 08/15/2024 [facility] Comment on above: Ordered: 08/15/2024 Hemoglobin A1c/Hemoglobin.total in Blood Hemoglobin A1c Lab Routine Menorrhagia with regular cycle Ordered: 08/15/2024 [facility] Comment on above: Ordered: 08/15/2024 Luteinizing hormone Luteinizing hormone Lab Routine PCOS (polycystic ovarian syndrome) Ordered: 08/15/2024 [facility] Comment on above: Ordered: 08/15/2024 Progesterone Progesterone Lab Routine Abnormal uterine bleeding (AUB) Menorrhagia with regular cycle H/O blood clots Ordered: 08/15/2024 [facility] Comment on above: Ordered: 08/15/2024 Prothrombin time (PT ) in Blood by Coagulation assay Protime-INR Lab Routine Abnormal uterine bleeding (AUB) Menorrhagia with regular cycle H/O blood clots Ordered: 08/15/2024 [facility] [employer] Comment on above: Ordered: 08/15/2024 Thyrotropin [Units/volume] in Serum or Plasma TSH Lab Routine Menorrhagia with regular cycle Ordered: 08/15/2024 [facility] [employer] Work Phone: Comment on above: Ordered: 08/15/2024 Thyroxine (T4) free [Mass/volume] in Serum or Plasma T4, free Lab Routine Menorrhagia with regular cycle Ordered: 08/15/2024 [facility] [employer] Comment on above: Ordered: 08/15/2024 IE-XFRVB-Zmngqg 320 Work Phone: IO Ultrasound, l imited pelvic, follicle monitoring WD-RDSPJ-Grjjqf 310 IVF Work Phone: Comment on above: Approx [id number] Approx [id number] Approx [id number] NEGATED: Highlighted row has been ruled out! Planned Goals not documented QL-ZHALO-Uweubk 310 IVF Work Phone: Payers Date Payer Category Payer Self-pay 2016 Private Health Insurance [id number] 2016 Private Health Insurance [id number] 1991 Unknown [id number] 2.16.84 0.1.391477.3.579.2.593 1991 Unknown [id number] 2.16.84 0.1.670595.3.579.2.593 1991 Unknown [id number] 2.16.84 0.1.778006.3.579.2.593 1991 Unknown [id number] 2.16.84 0.1.947618.3.579.2.593 1991 Unknown [id number] 2.16.84 0.1.398033.3.579.2.593 1991 Unknown [id number] 2.16.84 0.1.847476.3.579.2.593 1991 Unknown [id number] 2.16.84 0.1.849859.3.579.2.593 1991 Unknown [id number] 2.16.84 0.1.124263.3.579.2.593 1991 Unknown [id number] 2.16.84 0.1.798607.3.579.2.593 1991 Unknown [id number] 2.16.84 0.1.513110.3.579.2.593 1991 Unknown [id number] 2.16.84 0.1.563954.3.579.2.593 1991 Unknown [id number] 2.16.84 0.1.218781.3.579.2.593 1991 Unknown [id number] 2.16.84 0.1.477616.3.579.2.593 1991 Unknown [id number] 2.16.84 0.1.350654.3.579.2.593 1991 Unknown [id number] 2.16.8 40.1.394804.3.579.2.173 1991 Unknown [id number] 2.16.8 40.1.585969.3.579.2.173 1991 Unknown [id number] 2.16. 840.1.127193.3.579.2.196 1991 Unknown [id number] 2.16. 840.1.565483.3.579.2.196 1991 Unknown [id number] 2.16.8 40.1.998801.3.579.2.1286 1991 Unknown [id number] 2.16.8 40.1.721166.3.579.2.1286 1991 Unknown [id number] 2.16.8 40.1.709364.3.579.2.1286 1991 Unknown [id number] 2.16.8 40.1.339191.3.579.2.1286 1991 Unknown [id number] 2.16.84 0.1.720359.3.579.2.1259 1991 Unknown [id number] 2.16.84 0.1.391338.3.579.2.1259 1991 Unknown [id number] 2.16.84 0.1.611163.3.579.2.1259 1991 Unknown [id number] 2.16.84 0.1.944990.3.579.2.1259 1991 Unknown [id number] 2.16.84 0.1.823932.3.579.2.1259 1991 Unknown [id number] 2.16.84 0.1.143464.3.579.2.1259 1991 Unknown [id number] 2.16.84 0.1.494767.3.579.2.1259 1991 Unknown [id number] 2.16.84 0.1.802276.3.579.2.1259 1991 Unknown [id number] 2.16.84 0.1.217160.3.579.2.1259 1991 Unknown [id number] 2.16.84 0.1.540797.3.579.2.1259 1991 Unknown [id number] 2.16.840 .1.125537.3.579.2.1259 1991 Unknown [id number] 2.16.840 .1.429618.3.579.2.1259 1959 Self-pay [id number] 1959 Unknown [id number] 1959 Unknown [id number] Unknown [id number] .16.8 40.1.975125.3.579.2.243 Unknown [id number] 2.16.8 40.1.064422.3.579.2.243 Unknown Unknown [id number] 2.16.8 40.1.026372.3.579.2.531 Social History Date Type Detail Facility - - JJ-HNWUD-Ohfcty 310 IVF Work Phone: Start: 2023 End: 12-27-2023 Never a smoker Never a smoker [facility]; Start: 2023 End: 09-06-2023 Sex Assigned At [facility] Start: 09-22-2022 End: 04-15-2023 Tobacco smoking status NHIS Never smoked tobacco [facility] [employer] Phone: Start: 09-22-2022 End: 04-15-2023 Tobacco use and exposure Smokeless tobacco non-user [facility] Phone: Start: 1990 Sex Assigned At Not on file [facility] [employer] Phone: Start: 02-17-2023 End: 02-27-2023 Exposure to SARS-CoV-2 (event) Not sure [employer] Start: 12-27-2023 Alcohol intake Current drinke r of alcohol (finding) [facility] Frequency of Alcohol Consumption Not on file [facility] How many standard dr inks containing alcohol do you have on a typical day? 1 or 2 [facility] How often do you hav e 6 or more drinks on 1 occasion? Monthly [facility] Start: 06-25-2023 [facility] Start: 04-17-2024 End: 08-15-2024 Alcoholic beverage intake Ex-drinker (finding) [facility] Functional Status Date Assessment Result Facility NEGATED: Highlighted row Functional performance Functional status health issues are not documented Disease TY-MNRTZ-Akmjdb 310 IVF Work Phone: Mental Status Date Assessment Result Facility NEGATED: Highlighted row Cognitive function [Interpretation] Cognitive status health issues are not documented Disease PF-CIJZF-Ucpxeq 310 IVF Work Phone: History of Present illness Narrative 08-15-2024 Belgica Pisano LPN - 08/15/2024 2:20 PM EDT Note Date & Type Note Facility 08-15-2024 History of Presen t illness Narrative Reason for Appointment: Patient ID: Kiara Ashley is a 33 y.o. female who presents for Menstrual Problem Patient presents today for Acute Visit. MEDICATIONS Current Outpatient Medications Medication Instructions albuterol HFA 90 mcg/act inhaler 1 puff, Inhalation, Every 4 hours PRN Enoxaparin Sodium 40 mg, Daily levothyroxine (SYNTHROID) 25 mcg, Oral, Daily before breakfast loratadine (CLARITIN) 10 mg, Oral, Daily mometasone-formoterol (Dulera) 200-5 MCG/ACT inhaler 2 puffs, Inhalation, 2 times daily RT MV-Min-Fe Fum-FA-DHA ( 1 PO) ALLERGIES Allergies Allergen Reactions Progesterone Unknown Other Reaction(s): Other (See Comments) Injections with seseme seed oil Other Reaction(s): Not available PROBLEMS Active Ambulatory Problems Diagnosis Date Noted Sprain of calcaneofibular ligament of left ankle 03/29/2023 Injury of ankle, left, initial encounter 03/29/2023 Left foot pain 03/29/2023 Sinus tarsi syndrome, 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 Peroneal tendinitis of left lower extremity 03/29/2023 Metatarsalgia of left foot 03/29/2023 Fourth degree perineal tear during delivery with problem 05/10/2024 Spontaneous vaginal delivery 05/10/2024 Bladder leak 05/10/2024 Diastasis recti 05/10/2024 Resolved Ambulatory Problems Diagnosis Date Noted Second trimester 11/26/2023 Past Medical History: Diagnosis Date Asthma ([facility]/HCC) Deep vein thrombosis ([facility]) 2013 Infection of obstetric surgical wound 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) Vaginal delivery HISTORY PAST MEDICAL HISTORY SOCIAL HISTORY Past Medical History: Diagnosis Date Asthma (CMS/HCC) Deep vein thrombosis (CMS/HCC) 2013 Infection of obstetric surgical wound Protein S deficiency (CMS/HCC) Vaginal delivery Social History Tobacco Use Smoking status: Never Smokeless tobacco: Never Substance Use Topics Alcohol use: Not Currently Alcohol/week: 1.0 standard drink of alcohol Types: 1 Glasses of wine per week Drug use: Never FAMILY HISTORY Family History Problem Relation Name Age of Onset Arthritis Mother Becka Stroke Mother Becka Thyroid disease Mother Becka Cancer Maternal Grandmother Mally Heart disease Paternal Grandmother Mally Hyperlipidemia Paternal Grandmother Mally Hypertension Paternal Grandmother Mally Diabetes Paternal Grandmother Mally Mental illness Paternal Grandmother Mally COPD Paternal Grandmother Mally Diabetes Paternal Grandfather Gene Hypertension Paternal Grandfather Gene Hyperlipidemia Paternal Grandfather Gene Heart disease Paternal Grandfather Gene SURGICAL HISTORY Past Surgical History: Procedure Laterality Date FERTILITY SURGERY 2019 Invetro egg retrival WISDOM TOOTH EXTRACTION 11/15/2006 REVIEW OF SYSTEMS Review of Systems: Review of Systems Constitutional: Negative. HENT: Negative. Eyes: Negative. Respiratory: Negative. Cardiovascular: Negative. Gastrointestinal: Negative. Genitourinary: Positive for menstrual problem. Musculoskeletal: Negative. Skin: Negative. Neurological: Negative. All other systems reviewed and are negative. Hematological: Negative. Endocrine: Negative. Allergic/Immunologic: Negative. OBJECTIVE Objective: Physical Exam Constitutional: Appearance: Normal appearance. She is well-developed. Cardiovascular: Rate and Rhythm: Normal rate and regular rhythm. Pulmonary: Effort: Pulmonary effort is normal. Breath sounds: Normal breath sounds. Abdominal: General: Bowel sounds are normal. There is no distension. Palpations: Abdomen is soft. Tenderness: There is no abdominal tenderness. There is no guarding or rebound. Musculoskeletal: General: No swelling. Normal range of motion. Right lower leg: No edema. Left lower leg: No edema. Neurological: Mental Status: She is alert and oriented to person, place, and time. Skin: General: Skin is warm and dry. Psychiatric: Mood and Affect: Mood normal. Behavior: Behavior normal. Vitals and nursing note reviewed. Exam conducted with a head athletic trainer/strength coach present. Vitals: Estimated body mass index is 30.54 kg/m as calculated from the following: Height as of this encounter: 5' 2 . Weight as of this encounter: 167 lb. BP: 114/76 Patient's last menstrual period was 07/30/2024. ASSESSMENT & PLAN ICD-10-CM 1. Abnormal uterine bleeding (AUB) N93.9 Pt having irregular menstrual cycle. Pt is continued on synthroid. Pt given labs to have obtained. Pt is and having irregular periods, cramping, migraines. Pt to return for annual Documented by Belgica Pisano LPN on behalf of: Demario Ribeiro DO documented in this encounter [facility] History of Present illness Narrative 12-27-2023 ELIZABETH [...] other viral communicable diseases (ICD-10 - Z20.828) 12 Feb, 2022 Other Additional time spent conducting pre-visit phone call, screening for symptoms, instructions on social distancing, application and removal of PPE, and cleaning of examination room, equipment and supplies was preformed. Patient education given for testing methodology and results. Patient care instructions given in writting by [facility] Care At Home document. [facility] Other Clinical Note 07-25-2021 Note Date & [...] care. Reviewed plan with Dr. Bruce Aburto, BLOCKING MACHINE OPERATOR SECOND 07/25/2021 09:22 note: ob scan LOLLY: 03/05/2022. [...] Plan reviewed by Dr. Healy. Petra Lombardi BLOCKING MACHINE OPERATOR SECOND 07/16/21 1409 TC to pt with quant = 3238 form yesterday; normal rise from 728 on 07/02; Pt doing well; no problems with Lovenox. [facility] schedule OB US for next week at [facility]. Bere Way RN 07/07/2021 11:47 Spoke with patient regarding PPRS=970. Pain=0. Patient states she will begin prometrium BID and Lovenox today. Patient will repeat BHCg on Wednesday when she is at work. Patient aware RN will call her WednesdayJuly 07 with results and plan. Lucy Dunlap R.N.07/03/2021 12:19 Spoke to patient, will start Prometrium 100 mg BID and Lovenox 40 mg BID today (+Protein S deficiency). [place] to f/u with patient tomorrow once HCG level is back. Patient verbalized understanding. Rosibel Sam RN 07/02/2021 13:54 MD note: Reviewed positive test. LMP 15, conceived on christy cycle/IC. Plan to get HCG drawn today. Start Prometrium 100mg BID. Start Lovenox 40mg BID SQ. Plan per Dr. Healy. RN to communicate. Petra Lombardi BLOCKING MACHINE OPERATOR SECOND 07/02/21 1304 Active Problems 16 weeks gestation [...] directed. Peak F (more content not included)... [employer] Chief complaint Narrative - Reported 06-19-2021 Note [...] 30 year-old who presents for a FET [id number] Hx:06/2020: IOL @ 38 weeks due to [...] contour on HSG - images reviewed from [facility] 08/2018Uterine Cavity Evaluation:Normal uterine cavity on [...] Ashley 04/09/1989A in past year:2.8 cc125 mil/mL69% [id number] million(recent IUI sample)Morph from original SA was 2.8% [id number] Work Phone: Evaluation note Note Date & Type Note Facility Evaluation note Diagnosis Sprain of left ankle, unspecified ligament, initial encounter- Primary documented in this encounter [facility] Work Phone: Evaluation note Note Date & Type Note Facility Evaluation note Diagnosis Third trimester state, incidental First trimester state, incidental Hypothyroidism, unspecified type (CMS/HCC) Hypothyroidism (acquired) (CMS/HCC) Unspecified hypothyroidism H/O blood clots Excessive growth affecting management of in third trimester, single or unspecified fetus documented in this encounter [facility] Evaluation note Note Date & Type Note Facility Evaluation note Diagnosis Abnormal uterine bleeding (AUB) Menorrhagia with regular cycle PCOS (polycystic ovarian syndrome) Polycystic ovaries H/O blood clots documented in this encounter [facility] Discharge instructions Attachments Note Date & Type Note Facility Hospital Discharge instructions The following attachments cannot be sent through Care Everywhere.Ankle Sprain (Romanian)Ankle Sprain: Rehab Exercises (Romanian)documented in this encounter [facility] Work Phone: Summary Purpose Family History Grandmother Name Dates Details Family history of [...] DATE CREATED AUTHOR AUTHOR'S ORGANIZ ATION 11/12/2019 [facility] DATE CREATED AUTHOR AUTHOR'S ORGANIZ ATION 08/09/2020 [facility] DATE CREATED AUTHOR AUTHOR'S ORGANIZ ATION 07/26/2021 [employer] DATE CREATED AUTHOR AUTHOR'S ORGANIZ ATION 01/21/2023 [facility] DATE CREATED AUTHOR AUTHOR'S ORGANIZ ATION 03/06/2023 [facility] DATE CREATED AUTHOR AUTHOR'S ORGANIZ ATION 07/12/2023 [facility] DATE CREATED AUTHOR AUTHOR'S ORGANIZ ATION 10/04/2023 [facility] DATE CREATED AUTHOR AUTHOR'S ORGANIZ ATION 01/15/2024 [facility] DATE CREATED AUTHOR AUTHOR'S ORGANIZ ATION 08/16/2024 [facility] DATE CREATED AUTHOR AUTHOR'S ORGANIZ ATION 08/17/2024 [facility] EPIC REASON FOR VISIT (unrecogniz ed section and content) Reason Comments Ankle Pain Rolled ankle during morning run. Swelling to lateral ankle. Took ibuprofen and tylenol winemaker. Reason Comments Routine Visit Reason Comments Menstrual Problem Care Teams (unrecognized sec tion and content) [employer] Relationship Specialty Start Date End Date Evelyn Perez [address] [place] [id number] PCP - General Pediatrics 09/22/22 [employer] Relationship Specialty Start Date End Date Jesse Regan MD [address] [place] [address] PCP - General Family Medicine 11/30/23 [employer] Relationship Specialty Start Date End Date Jesse Regan MD [address] [place] [address] PCP - General Family Medicine 11/30/23 [employer] Relationship Specialty Start Date End Date Jesse Regan MD [address] [place], [place] [id number] PCP - General Family Medicine 11/30/23 [employer] Relationship Specialty Start Date End Date Jesse Regan MD [address] [place] [address] PCP - General Family Medicine 11/30/23 FOR [...] BE BASED ON THE PRIMARY CLINICAL RECORDS. [facility] [place] [facility]. provides no warranty or guarantee of the accuracy or completeness of information in this document.
== END 2024-08-17 19:55 | disposition home or self-care (01) ==
LOC: US 19:55
PROVIDERS: PCP Obstetrics & Gynecology; Visit Provider Obstetrics & Gynecology
DX: N92.0 Excessive and frequent menstruation with regular cycle (principal)
CPT/HCPCS: 76830; 76856

== ENCOUNTER 2024-10-31 19:27 | Outpatient (REF) | payer OTHER, SELFPAY ==
--- OUTSIDE RECORDS SUMMARY | 2024-10-31 19:32 | XMS_ITS | CCD ---
Author Organization [facility] CliniSywv Care Team Providers Care Spark Plug Assembler Name Role Phone Bruce Mayes Attending Unavailable Bruce Mayes Primary Care Unavailable Weinerman, Shahla Consulting Unavailable Bruce Mayes Attending Unavailable Bruce Mayes Primary Care Unavailable Weinerman, Shahla Consulting Unavailable Kelechi Gage Unavailable Unavailable OBGYN IVF RDMS ARDEN 1, MG OBGYN Unavailable Unavailable AnaEvelyn santana Unavailable Unavailabl e Weinerman, Shahla Unavailable Unavailable Weinerman, Shahla Unavailable Unavailable IVF NURSE OSMEL HER Unavailable Unavaila ble OBGYN IVF RDMS [id number], MG OBGYN Unavailable Unavailable Paola King Unavailable Unavailable Weinerman, Shahla Unavailable Unavailable [...] able QUINTIN ., DR CRUM Attending Unavailable QUITNIN ., DR CRUM Admitting Unavailable QUINTIN ., [...] DR CRUM Consulting Unavailable KARASIK ., DR SHEHT Consulting Unavailabl e KARASIK ., DR SHETH [...] DR CRUM Admitting Unavailable QUINTIN ., DR CURM Consulting Unavailable ANA, DR EVELYN Husain Primary [...] Unavailable Ana, Evelyn Husain Primary Care Provider [phone] JAMI ROMERO Attending Unavailable ANA, EVELYN Husain Primary Care Unavailabl e ANA, EVELYN Husain Primary Care Unavailabl charo Regan MD, Jesse Humphrey Primary Care Provider Link [employer]UM[employer] LEAD ADS MARKETING-MANAGER WATER WASTEWATER, Zoya Cheung Attending Unava ilkenya Perez MD, Evelyn [facility] Zamzam vailable Ana CALDERÓN, Evelyn Gracia Primary [facility] Zamzam vailable Link [facility], Zoya Cheung Attending Unava ilable QUINTIN, DEMARIO Attending Unavailable ELSA, BERE Attending Unavailable ELSA, BERE Attending Unavailable QUINTIN, DEMARIO Attending Unavailable ELSA, BERE Attending Unavailable QUINTIN, DEMARIO Attending Unavailable QUINTIN, DEMARIO Attending Unavailable ELSA, BERE Attending Unavailable QUINTIN, DEMARIO Attending Unavailable ELSA, BERE Attending Unavailable ELSA, BERE Attending Unavailable QUINTIN, DEMARIO Attending Unavailable Schlachter [facility], [facility] Provide r LATASHAER, NIKHIL Primary Care Unavailable QUINTIN, DEMARIO R Referring Unavailable SCHLACHTER, NIKHIL Primary Care Unavailable QUINTIN, DEMARIO R Referring Unavailable SCHLACHTER, [facility] Primary Care Unavailable QUINTIN, DEMARIO R Referring Unavailable SCHLACHTER, [facility] Primary [facility] Unavailable QUINTIN, DEMARIO R Referring Unavailable Ana, MD [facility] Provider [facility], DO L[facility] Gr Attending [facility] Unavailable [facility] Admitting Unavailable Ana, [facility] Unavailable SCHLACHTER, NIKHIL Attending Unavailable SCHLACHTER, NIKHIL Referring Unavailable SCHLACHTER, [facility] Primary Care Unavailable Allergies Allergy Classification Reported Allergen(s) Allergy Type Date of Onset Reaction(s) Facility Progesterone (2 sources) Progesterone; Translations: [Progesterone OIL] Drug Allergy [facility]Ywr[facility] n 310 IVF Work Phone: (18 sources) Progesterone; Translations: [Progesterone OIL] Drug Allergy 2 Other (See Comments) [facility] (2 sources) sesame seed extract Drug Allergy [facility] (8 sources) Progesterone; Translations: [PROGESTERONE] Drug Allergy 2 Unknown [facility] (1 source) No Known Medication Allergies; Translations: [No Known Medication Allergies] Propensity to adverse reactions to drug (disorder) [facility] Repository Medications Current Medications Medication Drug Class(es) Dates Sig (Normalized) Sig (Original) amoxicillin 875 mg / clavulanate 125 mg oral tablet (1 source) Penicillin-class Antibacterial Start: 10-10-2024 End: 10-20-2024 take 1 tablet by mouth once in the morning amoxicillin-pot clavulanate (AUGMENTIN) 875-125 mg per tablet Take 1 tablet by mouth in the morning and 1 tablet before bedtime. Do all this for 10 days. 20 tablet 10/10/2024 10/20/2024 Active calcium carbonate 1250 mg / cholecalciferol 200 unt oral tablet (6 sources) Vitamin D take 1 tablet by mouth once in the morning calcium carbonate-vitami n D3 (OSCAL 500 + D) 500 mg(1,250mg) -200 units per tablet Take 1 tablet by mouth in the morning and 1 tablet in the evening. Take with meals. Active End: 08-15-2024 Calcium Carb-Cholecalciferol 600-20 MG-MCG tablet orally once a day 08/15/2024 Discontinued cholecalciferol 0.025 mg oral tablet (2 sources) [...] Start : 08-Feb-2019 Active 0.6 ML Syringe inject 0.6 mL by sub cutaneous injection in the morning enoxaparin (LOVENOX) 40 mg/0.4 mL syringe Inject 0.6 mL (60 mg total) under the skin in the morning and 0.6 mL (60 mg total) before bedtime. Active enoxaparin (LOVE NOX) 300 MG/3ML injection Inject 0.4 mLs into the skin daily 0 Active levothyroxine sodium 0.05 mg oral tablet (11 sources) l-Thyroxine Start: 08-16-2024 take 1 tablet by mouth in the morning levothyroxine (SYNTHROID, LEVOTHROID) 50 MCG tablet Take 1 tablet (50 mcg total) by mouth in the morning. 90 tablet 1 08/16/2024 Active Start: 09-06-2023 End: 12-26-2024 take 1 tablet by mouth in the morning levothyroxine (SYNTHROID, LEVOTHROID) 25 MCG tablet Take 1 tablet (25 mcg total) by mouth in the morning. 90 tablet 1 03/21/2024 08/16/2024 Discontinued magnesium oxide 400 mg oral capsule (1 source) take 1 capsule by mouth in the evening magnesium oxide 400 mg magnesium capsule Take 1 capsule (400 mg total) by mouth in the evening. Active norethindrone 0.35 mg oral tablet (3 sources) Start: 08-15-20 24 End: 08-15-20 25 take 1 tablet by mouth once daily norethindrone (Micronor) 0.35 MG tablet Indications: Abnormal uterine bleeding (AUB) , Menorrhagia with regular cycle Take 1 tablet (0.35 mg) by mouth Daily 28 tablet 11 08/15/2024 08/15/2025 Active ondansetron 4 mg disintegrating oral tablet (4 sources) Serotonin-3 Receptor Antagonist Start: 09-22-20 22 take 1 tablet by mouth every eight [...] Refills: 0 DO Start : 23-Jan-2020 Active 25/IRON FUM/FOLIC/D SMITH (-1 ORAL) (2 sources) 25/IRON FUM/FOLIC/DHA (-1 ORAL) Take by mouth. Active MV & Min w/FA-DHA ( ADULT GUMMY/DHA/FA PO) (1 source) MV & Mi n w/FA-DHA ( ADULT GUMMY/DHA/FA PO) Take by mouth 0 Active MV-Min-Fe Fum-FA-DH A ( 1 PO) (6 sources) MV-Min- Fe Fum-FA-DHA ( 1 PO) [...] Kelechi Gage MD Start : 14-Aug-2019 Active [id number] 200 actuat albuterol 0.09 mg/actuat metered dose inhaler (20 sources) beta2-Adrenergic Agonist Start: 05-19-2019 Ventolin HFA 108 (90 Base) MCG/ACT Inhalation Aerosol Solution Quantity: 18 Refills: 0 Ordered: 19-May-2019 DO Start : 19-May-2019 Active Start: 05-19-2019 Ventolin HFA 1 08 (90 Base) MCG/ACT Inhalation Aerosol Solution Quantity: 18 Refills: 0 DO Start : 19-May-2019 Active take 2 puff(s) by in halation every six hours as needed for wheezing albuterol (PROVENTIL HFA;VENTOLIN HFA) 90 mcg/actuation inhaler Inhale 2 puffs every 6 (six) hours as needed for wheezing. Active take 1 puff(s) by in halation every four hours albuterol HFA 90 mcg/act inhaler Inhale 1 puff every 4 (four) hours if needed. Active alpha-tocopherol acetate 30 unt / ascorbic [...] DO Start : 19-Jan-2019 Active BD Disp [place] 27G X 1/2 (19 sources) Start: 10-03-2019 BD Disp Needle s 27G X 1/2 USE DIRECTED. Quantity: 2 Refills: 2 Shahla Healy MD Start : 03-Oct-2019 Active chorionic gonadotropin 50324 unt/ml injectable solution (19 sources) Gonadotropin Start: 10-03-2019 Chorionic Gonadotropin 20948 UNIT Intramuscular Solution Reconstituted USE DIRECTED. Quantity: 1 Refills: 1 Shahla Healy MD Start : 03-Oct-2019 Active famotidine 20 mg oral tablet (20 sources) Histamine-2 Receptor Antagonist Start: 01-19-2019 End: 10-10-2024 Pepcid 20 MG Oral Tablet Refills: 0 [...] halation in the morning mometasone-formoterol (DULERA) 200-5 mcg/actuation inhaler Inhale 2 puffs in the morning and 2 puffs before bedtime. Active hydrocortisone acetate 25 mg/ml / pramoxine hydrochloride 10 mg/ml rectal cream (3 sources) Corticosteroid Start: 04-17-2024 End: 08-15-2024 pramoxine-hydrocortisone, [...] morning. Active metoclopramide 10 mg oral tablet (11 sources) Dopamine-2 Receptor Antagonist Start: 09-22-2023 End: 10-10-2024 take 1 tablet by mouth every six hours metoclopramide (Reglan) 10 MG tablet Indications: Third trimester , Heartburn during in second trimester , Nausea and vomiting during Take 1 tablet (10 mg) by mouth every 6 (six) hours 120 tablet 02/07/2024 08/15/2024 Discontinued Start: 09-22-2022 take 1 tablet by immanuel [...] Start : 25-Dec-2019 Active Peak Flow Meter [place] Rang Device (3 sources) Start: 01-23-2020 Peak Flow Mete r [place] Rang Device USE DIRECTED. Quantity: 1 Refills: [...] Active Problems Problem Classification Problem Date Documented Date Episodic/Chronic Asthma (20 sources) Asthma; Translations: [Asthma, unspecified type, unspecified] Chronic Cancer; other and unspecified primary (20 sources) Personal history of other benign neoplasm; Translations: [History of neoplasm of pituitary gland] Episodic Coagulation and hemorrhagic disorders (20 sources) Protein S deficiency disease; Translations: [Thrombophilia] Onset: 02-25-2022 Chronic Esophageal disorders (20 sources) Gastroesophageal reflux disease; Translations: [Esophageal reflux] Chronic Female infertility (20 sources) Female infertility; Translations: [Infertility, female, of unspecified origin] Chronic Genitourinary symptoms and ill-defined conditions (5 sources) Urinary incontinence; Translations: [Unspecified urinary incontinence] Onset: 05-10-2024 05-10-2024 Chronic Immunizations and screening for infectious disease (20 sources) Patient encounter status; Translations: [Screening examination for venereal disease] Onset: 12-27-2021 Resolved: 12-27-2021 Episodic Menstrual disorders (20 sources) Irregular periods; Translations: [Irregular menstrual cycle] 08-15-2024 Chronic Other and unspecified benign neoplasm (20 [...] or unspecified] 12-27-2023 Episodic Other endocrine disorders (2 sources) Polycystic ovary syndrome; Translations: [Polycystic ovarian syndrome] 08-15-2024 Chronic Other female genital disorders (2 sources) Abnormal uterine bleeding; Translations: [Abnormal uterine and [...] care status; Translations: [Patient encounter status] Onset: 02-02-2022 Resolved: 06-19-2021 Episodic Other upper respiratory disease (20 sources) Seasonal allergy; Translations: [Allergic rhinitis, cause unspecified] Chronic Other upper respiratory infections (1 source) Sinusitis Onset: 10-10-2024 Chronic Other upper respiratory infections (2 sources) Acute maxillary sinusitis; Translations: [Acute maxillary sinusitis, unspecified] Onset: 10-10-2024 10-10-2024 Episodic Pulmonary heart disease (2 sources) Saddle embolus of pulmonary artery; 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] Onset: 05-11-2023 05-11-2023 Chronic Pulmonary heart disease (20 sources) Pulmonary embolism; [...] Translations: [ state, incidental] Episodic Thyroid disorders (7 sources) Hypothyroidism; Translations: [Hypothyroidism, unspecified] Onset: 10-10-2024 12-27-2023 Chronic Unclassified (2 sources) [facility] Onset: 02-08-2019 Unclassified (1 source) PERSONAL HISTORY OF COVID-19; Translations: [PERSONAL HISTORY OF COVID-19] Onset: 02-25-2022 Unclassified (1 source) CONTACT W/AND (SUSP) EXPOS COVID-19; Translations: [CONTACT W/AND (SUSP) EXPOS COVID-19] Onset: 02-25-2022 Viral infection (20 sources) Human papilloma virus infection; Translations: [Human papillomavirus in conditions classified elsewhere and of unspecified site] Episodic Past or Other Problems Problem Classification Problem Date Documented Da te Episodic/Chronic Abdominal pain (18 sources) Pain in female pelvis; Translations: [Unspecified symptom associated with female genital organs] Onset: 09-22-2022 Episodic OB-related trauma to perineum and vulva (6 sources) Second degree perineal laceration during delivery; Translations: [Fourth degree perineal tear during delivery with problem ] Onset: 02-25-2022 05-10-2024 Episodic Other complications of [...] Onset: 02-03-2022 Episodic Other connective tissue disease (6 sources) Pain in left foot; Translations: [Pain in left foot] Onset: 03-29-2023 03-29-2023 Episodic Other connective tissue disease (6 sources) Peroneal tendinitis of left lower limb; Translations: [Peroneal tendinitis, left leg] Onset: 03-29-2023 03-29-2023 Episodic Other connective tissue disease (6 sources) Metatarsalgia of left foot; Translations: [Metatarsalgia, left foot] Onset: 03-29-2023 03-29-2023 Episodic Other connective tissue disease (4 sources) Diastasis recti; Translations: [Separation of muscle (nontraumatic), other site] Onset: 05-10-2024 05-10-2024 Episodic Other connective tissue disease (1 source) Separation of muscle (nontraumatic), other site; Translations: [Separation of muscle (nontraumatic), other site] Onset: 05-11-2024 Episodic Other injuries and conditions due to external causes (6 sources) Injury of left ankle; Translations: [Unspecified injury of left ankle, initial encounter] Onset: 03-29-2023 03-29-2023 Episodic Other non-traumatic joint disorders (6 sources) Sinus tarsi syndrome of left ankle; Translations: [Pain in left ankle and joints of left foot] Onset: 03-29-2023 03-29-2023 Episodic Other and delivery including normal (20 sources) test positive; Translations: [] Onset: 02-24-2022 Resolved: 03-27-2024 Episodic Phlebitis; thrombophlebitis and thromboembolism (20 sources) H/O: thrombosis; Translations: [H/O: Deep vein thrombosis] Onset: 05-11-2023 12-27-2023 Episodic Residual codes; unclassified (1 source) 38 [...] weeks gestation of ] Sprains and strains (8 sources) Sprain of left ankle; Translations: [Sprain of unspecified ligament of left ankle, initial encounter] Onset: 02-27-2023 Episodic Unclassified (20 sources) Patient encounter status; Translations: [Fertility testing] NEGATED: Highlighted row has not occurred!Residual codes; unclassified (20 sources) Disease Episodic Results Test Name Value Interpretation Reference Range Facility ALL CBC WITH AUTO DIFFon BASOPHILS ABSOLUTE AUTO 0.1 [facility] Basophils/100 WBC (Bld) 1.0 % 0.2 - 2.0 % [facility] Eosinophils/100 WBC (Bld) 5.9 % 0.9 - 7.0 % [facility] Erythrocyte distribution width (RBC) [Ratio] 13.8 % 11.0 - 15.0 % [facility] Hematocrit (Bld) [Volume fraction] 45.9 % 36.0 - 48.0 % [facility] Hemoglobin (Bld) [Mass/Vol] 15.1 g/dL 12.0 - 16.0 g/dL [facility] IMMATURE GRANULOCYTES ABS AUTO 0.02 [facility] Immature granulocytes/100 WBC (Bld) 0.2 % 0.0 - 0.5 % [facility] Interpretation and review of laboratory results Abnormal [facility] LYMPHOCYTES ABSOLUTE AUTO 3.1 [facility] Lymphocytes/100 WBC (Bld) 29.3 % 20.5 - 60.0 % [facility] MCH (RBC) [Entitic mass] 29.9 pg 26.7 - 34.0 pg [facility] MCHC (RBC) [Mass/Vol] 32.9 g/dL 29.9 - 35.2 g/dL [facility] MCV (RBC) [Entitic vol] 90.9 fL 81.0 - 99.0 fL [facility] MONOCYTES ABSOLUTE AUTO 0.4 [facility] Monocytes/100 WBC (Bld) 4.1 % 1.7 - 12.0 % [facility] NEUTROPHILS ABSOLUTE AUTO 6.2 [facility] Neutrophils/100 WBC (Bld) 59.5 % 43.0 - 75.0 % [facility] Platelet mean volume (Bld) [Entitic vol] 9.2 fL Low 9.5 - 13.5 fL [facility] EO # 0.6 [facility] PLT 388 [facility] RBC 5.05 [facility] WBC 10.5 [facility] Pulmonology Office/Clinic No gabino 01-10-2024 Pulmonology Office/Clinic [...] refills. Continue with anticoagulation as prescribed by PROJECT DRILLING ENGINEER, patient is currently 30 weeks gestation. [...] embolism Historical No qualifying data Procedure/Surgical History [place] Teeth Removal (2005) IVF (11/15/2018) Medications Dulera [...] Zoya PERKINS 01/10/24 12:40 EST Normal [facility] Phone Note - Heme Onc-medica tion questionon 07-12-2023 Phone Note - Heme Onc-medication question Phone Call Information: Patient Demographics: Name: KIARA ASHLEY Date: 1990 Address: [address] [place] [address] Date and Time: 12-Jul-2023 09:31 Caller Information: call from Call From: patient Caller Name: Kiara Primary Phone Number: [phone] Reason for Call: Reason for Callmedication question [...] 09:57 by Harmony Ross (N MGR) Normal [facility] XR ANKLE LEFT (MIN 3 [...] Dario William MD 02/27/23 Final result Normal [facility] 1. No acute osseous abnormality involving the left ankle. [facility] EXAMINATION: THREE XRAY VIEWS OF THE LEFT ANKLE 02/27/2023 11:46 am COMPARISON: None. HISTORY: ORDERING SYSTEM PROVIDED HISTORY: pain, swelling TECHNOLOGIST PROVIDED HISTORY: pain, swelling FINDINGS: The bone mineralization is within normal limits. The ankle mortise is stable. No acute fractures or dislocations are seen. There is no soft tissue swelling. [facility] Dario William MD - [...] acute osseous abnormality involving the left ankle. [facility] Phone: Radiology Study observation (narrative) [facility] Phone: XR ANKLE LEFT (MIN 3 VIEWS)O rdered By: Dario William on 02-27-2023 [employer] Phone: PAP ACOG PANEL 2: 30 to 65on 01-19-2023 . . Normal [facility] Comment on above: Result Comment: Perf ormed at: WB Performed By: #### [id number] #### [facility] [address] [place] [address] Dr. Claire Mayes Age Gdln ACOG Testing 30-65 Normal [facility] Comment on above: Performed By: #### [id number] #### [facility] [address] [address] [address] Claire Mayes DIAGNOSIS: Comment Normal [facility] Comment on above: Result Comment: NEGA TIVE FOR INTRAEPITHELIAL LESION OR MALIGNANCY. Performed at: WB Performed By: #### [id number] #### [facility] [address] [address] [address] Claire Mayes HPV Aptima Negative Normal Negative [facility] Comment on above: Result Comment: This nucleic acid amplification test detects fourteen high-risk HPV types (16,18,31,33,35,39,45,51,52,56,58,59,66,68) without differentiation. Performed at: =G Performed By: #### [id number] #### [facility] [address] [address] [address] Claire Mayes HPV Genotype Reflex Comment Normal [facility] Comment on above: Result Comment: Crit eria not met, HPV Genotype not performed. Performed at: WB Performed By: #### [id number] #### [facility] [address] [place] [address] Dr. Claire Mayes Methodology: Comment Normal [facility] Comment on above: Result Comment: This liquid based ThinPrep(R) pap test was screened with the use of an image guided system. Performed at: WB Performed By: #### [id number] #### [facility] [address] [place] [address] Dr. Claire Mayes Note: Comment Normal [facility] Comment on above: Result Comment: The Pap smear is a screening test designed to aid in the detection of premalignant and malignant conditions of the uterine cervix. It is not a diagnostic procedure and should not be used as the sole means of detecting cervical cancer. Both false-positive and false-negative reports do occur. . Performed at: WB Performed By: #### [id number] #### [facility] [address] [place] [address] Dr. Claire Mayes Performed by: Comment Normal [facility] Comment on above: Result Comment: Sherlyn Wright, Music Teacher (ASCP) Performed at: WB Performed By: #### [id number] #### [facility] [address] [place] [address] Dr. Claire Mayes Specimen adequacy: Comment Normal [facility] Comment on above: Result Comment: Sati sfactory for evaluation. No endocervical component is identified. Performed at: WB Performed By: #### [id number] #### [facility] [address] [place] [address] Dr. Claire Mayes CBC with Diffon 09-22-2022 Abs. Basophil 0.03 k/uL Normal 0.00-0.20 [facility] Comment on above: Performed By: #### L BJ BUCK, CP #### [facility] [address] [place] [address] [employer] Supervisor: Jesse Curry MD Abs.Imm.Granulocy te 0.04 k/uL Normal 0.00-0.30 [facility] Comment on above: Performed By: #### L IP, CDP, CP #### [address] [place], [place] [id number] [employer] Supervisor: Jesse Curry MD Abs.Neutrophil (Seg) 12.54 k/uL High 1.50-8.10 [facility] Comment on above: Performed By: #### L IP, CDP, CP #### [address] [place], [facility] [employer] Supervisor: Jesse Curry MD Basophils/100 WBC (Bld) 0 % Normal 0-2 [facility] Comment on above: Performed By: #### L IP, CDP, CP #### [address] [place], [place] [address] [employer] Supervisor: Jesse Curry MD Eosinophils (Bld) [#/Vol] 0.16 10*3/uL Normal 0.00-0.44 [facility] Comment on above: Performed By: #### L IP, CDP, CP #### [address] [place], [facility] [employer] Supervisor: Jesse Curry MD Eosinophils/100 WBC (Bld) 1 % Normal 1-4 [facility] Comment on above: Performed By: #### L IP, CDP, CP #### [address] [place], [place] [address] [employer] Supervisor: Jesse Curry MD Erythrocyte distribution width (RBC) [Ratio] 13.6 % Normal 11.8-14.4 [facility] Comment on above: Performed By: #### L IP, CDP, CP #### [address] [place], [facility] [employer] Supervisor: Jesse Curry MD Hematocrit (Bld) [Volume fraction] 46.4 % Normal 36.3-47.1 [facility] Comment on above: Performed By: #### L IP, CDP, CP #### [address] [place], [facility] [employer] Supervisor: Jesse Curry MD Hemoglobin (Bld) [Mass/Vol] 15.6 g/dL High 11.9-15.1 [facility] Comment on above: Performed By: #### L IP, CDP, CP #### [facility] [address] [place] [address] Dr. [place], [place] [id number] [employer] Supervisor: Jesse Curry MD Immature granulocytes/100 WBC (Bld) 0 % Normal 0 [facility] Comment on above: Performed By: #### L IP, CDP, CP #### [address] [place], [place] [id number] [employer] Supervisor: Jesse Curry MD Lymphocytes (Bld) [#/Vol] 0.98 10*3/uL Low 1.10-3.70 [facility] Comment on above: Performed By: #### L IP, CDP, CP #### [address] [place], [facility] [employer] Supervisor: Jesse Curry MD Lymphocytes/100 WBC (Bld) 7 % Low 24-43 [facility] Comment on above: Performed By: #### L IP, CDP, CP #### [address] [place], [facility] [employer] Supervisor: Jesse Curry MD MCH (RBC) [Entitic mass] 30.4 pg Normal 25.2-33.5 [facility] Comment on above: Performed By: #### L IP, CDP, CP #### [facility] [address] [place] [address] Dr. [place], [place] [id number] [employer] Supervisor: Jesse Curry MD MCHC (RBC) [Mass/Vol] 33.6 g/dL Normal 28.4-34.8 [facility] Comment on above: Performed By: #### L IP, CDP, CP #### [address] [place] [address] [employer] Supervisor: Jesse Curry MD MCV (RBC) [Entitic vol] 90.3 fL Normal 82.6-102.9 [facility] Comment on above: Performed By: #### L IP CDP, CP #### [facility] [address] [place], [place] [id number] [employer] Supervisor: Jesse Curry MD Monocytes (Bld) [#/Vol] 0.58 10*3/uL Normal 0.10-1.20 [facility] Comment on above: Performed By: #### L IP, CDP, CP #### [facility] [address] [place], [place] [id number] [employer] Supervisor: Jesse Curry MD Monocytes/100 WBC (Bld) 4 % Normal 3-12 [facility] Comment on above: Performed By: #### L CIELO CDP, CP #### [address] [place], [place] [address] [employer] Supervisor: Jesse Curry MD Neutrophil (Seg) 88 % High 36-65 [facility] Comment on above: Performed By: #### L BJ BUCK, CP #### [address] [place], [place] [id number] [employer] Supervisor: Jesse Curry MD NRBC Automated 0.0 per 100 WBC Normal 0.0 [facility] Comment on above: Performed By: #### L CIELO CDP, CP #### [address] [place], [facility] [employer] Supervisor: Jesse Curry MD Platelet mean volume (Bld) [Entitic vol] 9.9 fL Normal 8.1-13.5 [facility] Comment on above: Performed By: #### L IP CDP, CP #### [address] [place] [address] [employer] Supervisor: Jesse Curry MD Platelets (Bld) [#/Vol] 299 10*3/uL Normal 138-453 [facility] Comment on above: Performed By: #### L BJ BUCK, CP #### [facility] [address] [place] [address] [employer] Supervisor: Jesse Curry MD RBC (Bld) [#/Vol] 5.14 10*6/uL High 3.95-5.11 [facility] Comment on above: Performed By: #### L BJ BUCK, CP #### [facility] [address] [place] [address] [employer] Supervisor: eJsse Curry MD WBC (Bld) [#/Vol] 14.3 10*3/uL High 3.5-11.3 [facility] Comment on above: Performed By: #### L BJ BUCK, CP #### [facility] [address] [place] [id number] [employer] Supervisor: Jesse Curry MD CT ABDOMEN PELVIS W [...] A Maldonado DO 09/22/22 Final result Normal [facility] Comp Metabolic Profon 2021 Albumin [Mass/Vol] 4.7 g/dL Normal 3.5-5.2 [facility] Comment on above: Performed By: #### L IP, CDP, CP #### [facility] [address] [place] [address] [place] [address] [employer] Supervisor: Jesse Curry MD Albumin/Glob Ratio 2.0 Normal 1.0-2.5 [facility] Comment on above: Performed By: #### L IP, CDP, CP #### [address] [place] [address] [employer] Supervisor: Jesse Curry MD Alkaline Phos 77 U/L Normal 35-104 [facility] Comment on above: Performed By: #### L IP, CDP, CP #### [address] [place], [place] [id number] [employer] Supervisor: Jesse Curry MD ALT [Catalytic activity/Vol] 10 U/L Normal 5-33 [facility] Comment on above: Performed By: #### L IP, CDP, CP #### [address] [place] [address] [employer] Supervisor: Jesse Curry MD Anion gap [Moles/Vol] 12 mmol/L Normal 9-17 [facility] Comment on above: Performed By: #### L IP, CDP, CP #### [address] [place], [place] [address]83 [employer] Supervisor: Jesse Curry MD AST [Catalytic activity/Vol] 14 U/L Normal <32 [facility] Comment on above: Performed By: #### L IP, CDP, CP #### [facility] [address] [place], [place] [id number] [employer] Supervisor: Jesse Curry MD Bilirubin [Mass/Vol] 0.6 mg/dL Normal 0.3-1.2 [facility] Comment on above: Performed By: #### L IP, CDP, CP #### [facility] [address] [place], [place] [id number] [employer] Supervisor: Jesse Curry MD BUN/CRE Ratio 31 High 9-20 [facility] Comment on above: Performed By: #### L IP, CDP, CP #### [facility] [address] [place], [place] [id number] [employer] Supervisor: Jesse Curry MD Calcium [Mass/Vol] 9.8 mg/dL Normal 8.6-10.4 [facility] Comment on above: Performed By: #### L IP, CDP, CP #### [facility] [address] [place] [address] Dr. [place], [place] [id number] [employer] Supervisor: Jesse Curry MD Chloride [Moles/Vol] 104 mmol/L Normal 98-107 [facility] Comment on above: Performed By: #### L IP, CDP, CP #### [facility] [address] [place], [place] 492[address]83 [employer] Supervisor: Jesse Curry MD CO2 [Moles/Vol] 22 mmol/L Normal 20-31 [facility] Comment on above: Performed By: #### L IP, CDP, CP #### [facility] [address] [place], [place] 2237[address] [employer] Supervisor: Jesse Curry MD Creatinine [Mass/Vol] 0.85 mg/dL Normal 0.50-0.90 [facility] Comment on above: Performed By: #### L IP, CDP, CP #### [address] [place] [address] [employer] Supervisor: Jesse Curry MD GFR/1.73 sq M.predicted among non-blacks MDRD (S/P/Bld) [Vol rate/Area] mL/min/{1.73_m2} Normal >60 [facility] Comment on above: Result Comment: Effective Aug [...] By: #### L IP CDP, CP #### [address] [place] [address] [employer] Supervisor: Jesse Curry MD Glucose [Mass/Vol] 109 mg/dL High 70-99 [facility] Comment on above: Performed By: #### L CIELO CDP, CP #### [address] [place] [address] [employer] Supervisor: Jesse Curry MD Potassium [Moles/Vol] 4.0 mmol/L Normal 3.7-5.3 [facility] Comment on above: Performed By: #### L IP, CDP, CP #### [facility] [address] [place] [address] [place] [address] [employer] Supervisor: Jesse Curry MD Protein [Mass/Vol] 7.1 g/dL Normal 6.4-8.3 [facility] Comment on above: Performed By: #### L IP, CDP, CP #### [address] [place] [address] [employer] Supervisor: Jesse Curry MD Sodium [Moles/Vol] 138 mmol/L Normal 135-144 [facility] Comment on above: Performed By: #### L BJ BUCK, CP #### [facility] [address] [place] [address] [employer] Supervisor: Jesse Curry MD Urea nitrogen [Mass/Vol] 26 mg/dL High 6-20 [facility] Comment on above: Performed By: #### L BJ BUCK, CP #### [facility] [address] [place] [address] [employer] Supervisor: Jesse Curry MD HCG, ,Urineon 09-22 Beta HCG ( test) Ql (U) Negative Normal NEG [facility] Comment on above: Result Comment: Spec imens with hCG levels near the threshold of the test (25 mIU/mL) may give a negative or indeterminate result. In such cases, another test should be performed with a new specimen in 48-72 hours. If early is suspected clinically in this setting, correlation with quantitative serum b-hCG level is suggested. [facility] has confirmed the use of plasma for this test. This has not been cleared or approved by the [place]. Food and Drug Administration. The FDA has determined that such clearance is not necessary. Performed By: #### U HCG #### [address] [place] [address] [employer] Supervisor: Jesse Curry MD Lactic Acidon 09-22-2022 Lactate [Moles/Vol] 1.8 mmol/L Normal 0.5-2.2 [facility] Comment on above: Performed By: #### L ACTIC #### [facility] [address] [place] [address] [employer] Supervisor: Jesse Curry MD Lipaseon 09-22-2022 Lipase [Catalytic activity/Vol] 39 U/L Normal 13-60 [facility] Comment on above: Performed By: #### L BJ BUCK, CP #### [facility] [address] [place] [address] [employer] Supervisor: Jesse Curry MD UA w/Reflex Cultureon 2021 Bilirubin, SemiQt,Ur Negative Normal NEG [facility] Comment on above: Performed By: #### U MICAO, UAX #### [facility] [address] [place] [address] [employer] Supervisor: Jesse Curry MD Blood, Urine Negative Normal NEG [facility] Comment on above: Performed By: #### U MICAO, UAX #### [facility] [address] [place] [address] [place] [address] [employer] Supervisor: Jesse Curry MD Clarity (U) Clear Normal CLEAR [facility] Comment on above: Performed By: #### U MICAO, UAX #### [facility] [address] [place] [address] Dr. [place], [place] [id number] [employer] Supervisor: Jesse Curry MD Color (U) Yellow Normal YEL [facility] Comment on above: Performed By: #### U MICAO, UAX #### [facility] [address] [place] [address] [place] [address] [employer] Supervisor: Jesse Curry MD Glucose Ql (U) Negative Normal NEG [facility] Comment on above: Performed By: #### U MICAO, UAX #### [facility] [address] [place] [address] [place] [address] [employer] Supervisor: Jesse Curry MD Ketones Ql (U) Negative Normal NEG [facility] Comment on above: Performed By: #### U MICAO, UAX #### [facility] [address] [place] [address] [place] [address] [employer] Supervisor: Jesse Curry MD Leukocyte esterase Test strip Ql (U) Negative Normal NEG [facility] Comment on above: Performed By: #### U MICAO, UAX #### [facility] [address] [place] [address] Dr. [place], [place] [id number] [employer] Supervisor: Jesse Curry MD Nitrite,Ur Negative Normal NEG [facility] Comment on above: Performed By: #### U MICAO, UAX #### [facility] [address] [place] [address] Dr. [place], [place] [phone] [employer] Supervisor: Jesse Curry MD PH,Ur 8.0 Normal 5.0-9.0 [facility] Comment on above: Performed By: #### U MICAO, UAX #### [facility] [address] [place] [address] [place] [address] [employer] Supervisor: Jesse Curry MD Protein Ql (U) Negative Normal NEG [facility] Comment on above: Performed By: #### U MICAO, UAX #### [address] [place], [place] [id number] [employer] Supervisor: Jesse Curry MD Spec. [place],Ur 1.020 Normal 1.010-1.020 [facility] Comment on above: Performed By: #### U MICAO, UAX #### [facility] [address] [place] [address] Dr. [place], [place] [id number] [employer] Supervisor: Jesse Curry MD Urobilinogen,Ur Normal Normal NORM [facility] Comment on above: Performed By: #### U MICAO, UAX #### [facility] [address] [place] [address] Dr. [place], [facility] [employer] Supervisor: Jesse Curry MD Urinalysis,Microon 2 Bacteria TRACE Abnormal NONE [facility] Comment on above: Performed By: #### U MICAO, UAX #### [address] [place], [place] [address]683 [employer] Supervisor: Jesse Curry MD Epithelial cells LM Ql (Urine sed) 0 TO 2 Normal 0-25 [facility] Comment on above: Performed By: #### U MICAO, UAX #### [facility] [address] [place], [place] [id number] [employer] Supervisor: Jesse Curry MD Urine RBC's None Normal 0-2 [facility] Comment on above: Performed By: #### U ESTRELLITAO, UAX #### [facility] [address] [place], [place] [address]83 [employer] Supervisor: Jesse Curry MD Urine WBC's 0 TO 2 Normal 0-5 [facility] Comment on above: Performed By: #### U DARIO, UAX #### [facility] [address] [place] [address] [employer] Supervisor: Jesse Curry MD CBC AUTO DIFFon 02-20-2022 BASO # 0.1 103/ul Normal 0.0-0.1 [facility] Comment on above: Performed By: #### C BC #### [facility] [address] [place] [address] Dr. Claire Mayes Basophils/100 WBC (Bld) 0.8 % Normal 0.2-2.0 [facility] Comment on above: Performed By: #### C BC #### [facility] [address] [place] [address] Dr. Claire Mayes EO # 0.2 103/ul Normal 0.0-0.7 [facility] Comment on above: Performed By: #### C BC #### [facility] [address] [place] [address] Dr. Claire Mayes Eosinophils/100 WBC (Bld) 0.9 % Normal 0.9-7.0 [facility] Comment on above: Performed By: #### C BC #### [facility] [address] [place] [address] Dr. Claire Mayes Erythrocyte distribution width (RBC) [Ratio] 15.0 % Normal 11.0-15.0 [facility] Comment on above: Performed By: #### C BC #### [facility] [address] [place] [address] Dr. Claire Mayes Hematocrit (Bld) [Volume fraction] 31.3 % Critically low 36.0-48.0 [facility] Comment on above: Performed By: #### C BC #### [facility] [address] [place] [address] Dr. Claire Mayes Hemoglobin (Bld) [Mass/Vol] 10.3 g/dL Critically low 12.0-16.0 [facility] Comment on above: Performed By: #### C BC #### [facility] [address] [place] [address] Dr. Claire Mayes IG # 0.21 10e3/ul Critically high 0.00-0.03 [facility] Comment on above: Performed By: #### C BC #### [facility] [address] [place] [address] Dr. Claire Mayes IG % 1.3 % Critically high 0.0-0.5 [facility] Comment on above: Performed By: #### C BC #### [facility] [address] [place] [address] Dr. Claire Mayes LYMPH # 2.1 103/ul Normal 1.2-3.8 [facility] Comment on above: Performed By: #### C BC #### [facility] [address] [place] [address] Dr. Claire Mayes Lymphocytes/100 WBC (Bld) 12.6 % Critically low 20.5-60.0 [facility] Comment on above: Performed By: #### C BC #### [facility] [address] [place] [address] Dr. Claire Mayes MANUAL DIFF REQ NO Normal [facility] Comment on above: Performed By: #### C BC #### [facility] [address] [place] [address] Dr. Claire Mayes MCH (RBC) [Entitic mass] 29.8 pg Normal 26.7-34.0 [facility] Comment on above: Performed By: #### C BC #### [facility] [address] [place] [address] Dr. Claire Mayes MCHC (RBC) [Mass/Vol] 32.9 g/dL Normal 29.9-35.2 [facility] Comment on above: Performed By: #### C BC #### [facility] [address] [address] [address] Claire Mayes MCV (RBC) [Entitic vol] 90.5 fL Normal 81.0-99.0 [facility] Comment on above: Performed By: #### C BC #### [facility] [address] [address] [address] Claire Mayes MONO # 0.8 103/ul Normal 0.3-0.8 [facility] Comment on above: Performed By: #### C BC #### [facility] [address] [address] [address] Claire Mayes Monocytes/100 WBC (Bld) 5.1 % Normal 1.7-12.0 [facility] Comment on above: Performed By: #### C BC #### [facility] [address] [address] [address] Claire Mayes NEUT # 13.2 103/ul Critically high 1.4-6.5 [facility] Comment on above: Performed By: #### C BC #### [facility] [address] [place] [address] Dr. Claire Mayes Neutrophils/100 WBC (Bld) 79.3 % Critically high 43.0-75.0 [facility] Comment on above: Performed By: #### C BC #### [facility] [address] [address] [address] Claire Mayes Platelet mean volume (Bld) [Entitic vol] 10.4 fL Normal 9.5-13.5 [facility] Comment on above: Performed By: #### C BC #### [facility] [address] [place] [address] Dr. Claire Mayes PLT 233 103/ul Normal 150-450 [facility] Comment on above: Performed By: #### C BC #### [facility] [address] [place] [address] Dr. Claire Mayes RBC 3.46 106/ul Critically low 4.20-5.40 [facility] Comment on above: Performed By: #### C BC #### [facility] [address] [address] [address] Claire Mayes WBC 16.6 103/ul Critically high 4.0-11.0 [facility] Comment on above: Performed By: #### C BC #### [facility] [address] [address] [address] Claire Mayes CBC AUTO DIFFon 02-18-2022 BASO # 0.1 103/ul Normal 0.0-0.1 [facility] Comment on above: Performed By: #### C BC #### [facility] [address] [address] [address] Claire Mayes Basophils/100 WBC (Bld) 0.7 % Normal 0.2-2.0 [facility] Comment on above: Performed By: #### C BC #### [facility] [address] [address] [address] Claire Mayes EO # 0.2 103/ul Normal 0.0-0.7 [facility] Comment on above: Performed By: #### C BC #### [facility] [address] [address] [address] Claire Mayes Eosinophils/100 WBC (Bld) 1.2 % Normal 0.9-7.0 [facility] Comment on above: Performed By: #### C BC #### [facility] [address] [address] [address] Claire Mayes Erythrocyte distribution width (RBC) [Ratio] 15.0 % Normal 11.0-15.0 [facility] Comment on above: Performed By: #### C BC #### [facility] [address] [place] [address] Dr. Claire Mayes Hematocrit (Bld) [Volume fraction] 35.1 % Critically low 36.0-48.0 [facility] Comment on above: Performed By: #### C BC #### [facility] [address] [place] [address] Dr. Claire Mayes Hemoglobin (Bld) [Mass/Vol] 11.8 g/dL Critically low 12.0-16.0 [facility] Comment on above: Performed By: #### C BC #### [facility] [address] [address] [address] Claire Mayes IG # 0.30 10e3/ul Critically high 0.00-0.03 [facility] Comment on above: Performed By: #### C BC #### [facility] [address] [address] [address] Claire Mayes IG % 1.9 % Critically high 0.0-0.5 [facility] Comment on above: Performed By: #### C BC #### [facility] [address] [place] [address] Dr. Claire Mayes LYMPH # 2.9 103/ul Normal 1.2-3.8 [facility] Comment on above: Performed By: #### C BC #### [facility] [address] [place] [address] Dr. Claire Mayes Lymphocytes/100 WBC (Bld) 18.5 % Critically low 20.5-60.0 [facility] Comment on above: Performed By: #### C BC #### [facility] [address] [place] [address] Dr. Claire Mayes MANUAL DIFF REQ NO Normal [facility] Comment on above: Performed By: #### C BC #### [facility] [address] [place] [address] Dr. Claire Mayes MCH (RBC) [Entitic mass] 30.2 pg Normal 26.7-34.0 [facility] Comment on above: Performed By: #### C BC #### [facility] [address] [place] [address] Dr. Claire Mayes MCHC (RBC) [Mass/Vol] 33.6 g/dL Normal 29.9-35.2 [facility] Comment on above: Performed By: #### C BC #### [facility] [address] [place] [address] Dr. Claire Mayes MCV (RBC) [Entitic vol] 89.8 fL Normal 81.0-99.0 [facility] Comment on above: Performed By: #### C BC #### [facility] [address] [address] [address] Claire Mayes MONO # 0.7 103/ul Normal 0.3-0.8 [facility] Comment on above: Performed By: #### C BC #### [facility] [address] [address] [address] Claire Mayes Monocytes/100 WBC (Bld) 4.7 % Normal 1.7-12.0 [facility] Comment on above: Performed By: #### C BC #### [facility] [address] [address] [address] Claire Mayes NEUT # 11.3 103/ul Critically high 1.4-6.5 [facility] Comment on above: Performed By: #### C BC #### [facility] [address] [place] [address] Dr. Claire Mayes Neutrophils/100 WBC (Bld) 73.0 % Normal 43.0-75.0 [facility] Comment on above: Performed By: #### C BC #### [facility] [address] [address] [address] Claire Mayes Platelet mean volume (Bld) [Entitic vol] 10.8 fL Normal 9.5-13.5 [facility] Comment on above: Performed By: #### C BC #### [facility] [address] [address] [address] Claire Mayes PLT 233 103/ul Normal 150-450 [facility] Comment on above: Performed By: #### C BC #### [facility] [address] [address] [address] Claire Mayes RBC 3.91 106/ul Critically low 4.20-5.40 [facility] Comment on above: Performed By: #### C BC #### [facility] [address] [address] [address] Claire Mayes WBC 15.5 103/ul Critically high 4.0-11.0 [facility] Comment on above: Performed By: #### C BC #### [facility] [address] [place] [address] Dr. Claire Mayes Covid-19 PCR ([facility])on SARS-CoV-2 (COVID-19) RNA FERDINAND+probe Ql (Unsp spec) Not detected Normal NOT DETECTED [facility] Comment on above: Result Comment: When diagnostic [...] for this test is supported by the [place] of Health and Human Service's declaration that [...] longer be used). Performed By: #### C VDTB #### [facility] [address] [place] [address] Dr. Claire Mayes DRUG SCREEN RAPID (URINE)on 02-18-2022 AMP Negative Normal NEGATIVE [facility] Comment on above: Performed By: #### D RUGRPD #### [facility] [address] [place] [address] Dr. Claire Mayes BAR Negative Normal NEGATIVE [facility] Comment on above: Performed By: #### D RUGRPD #### [facility] [address] [place] [address] Dr. Claire Mayes BUP Negative Normal NEGATIVE [facility] Comment on above: Performed By: #### D RUGRPD #### [facility] [address] [place] [address] Dr. Claire Mayes BZO Negative Normal NEGATIVE [facility] Comment on above: Performed By: #### D RUGRPD #### [facility] [address] [address] [address] Claire Mayes KIT Negative Normal NEGATIVE [facility] Comment on above: Performed By: #### D RUGRPD #### [facility] [address] [place] [address] Dr. Claire Mayes CUT-OFFS SEE BELOW Normal [facility] Comment on above: Result Comment: [...] ng/mL Performed By: #### D RUGRPD #### [facility] [address] [place] [address] Dr. Claire Mayes DRUG CUT HEADER DRUG CLASS TEST SYST EM CUT-OFF CONCENTRATIONS ARE FOLLOWS: Normal [facility] Comment on above: Performed By: #### D RUGRPD #### [facility] [address] [place] [address] Dr. Claire Mayes mAMP Negative Normal NEGATIVE [facility] Comment on above: Performed By: #### D RUGRPD #### [facility] [address] [place] [address] Dr. Claire Mayes MTD Negative Normal NEGATIVE [facility] Comment on above: Performed By: #### D RUGRPD #### [facility] [address] [place] [address] Dr. Claire Mayes OPI Negative Normal NEGATIVE [facility] Comment on above: Performed By: #### D RUGRPD #### [facility] [address] [place] [address] Dr. Claire Mayes OXY Negative Normal NEGATIVE [facility] Comment on above: Performed By: #### D RUGRPD #### [facility] [address] [address] [address] Claire Mayes PCP Negative Normal NEGATIVE [facility] Comment on above: Performed By: #### D RUGRPD #### [facility] [address] [address] [address] Claire Mayes PPX Negative Normal NEGATIVE [facility] Comment on above: Performed By: #### D RUGRPD #### [facility] [address] [address] [address] Claire Mayes TCA Negative Normal NEGATIVE [facility] Comment on above: Performed By: #### D RUGRPD #### [facility] [address] [address] [address] Claire Mayes THC Negative Normal NEGATIVE [facility] Comment on above: Performed By: #### D RUGRPD #### [facility] [address] [place] [address] Dr. Claire Mayes TYPE AND SCREENon 02-18-2022 TYPE AND SCREEN Negative Normal [facility] Comment on above: Performed By: #### T NS #### [facility] [address] [place] [address] Dr. Claire Mayes US PREG BIOPHY W [...] JESSE THOMAS Date: 2022-02-17 14:27 Normal [facility] US PREG BIOPHY W NON STRESSo n [...] FELIPE Date: 2022-02-10 16:40 Normal [facility] GROUP B STREP CULTUREon 01-14 S. agalactiae Ag Ql (Unsp spec) Culture Observations: Beta Strep called to Belgica Lange at office 02/04/22 @[address] [place] [address] Isolate 1 Streptococcus agalactiae Heavy growth of ORGANISM 1 Streptococcus agalactiae ANTIBIOTIC M.I.C RX STATUS Benzylpenicillin <=0.06 S F Ampicillin <=0.25 S F Cefotaxime <=0.12 S F Ceftriaxone <=0.12 S F Levofloxacin 0.5 S F Erythromycin 2 R F Clindamycin <=0.25 S F Linezolid <=2 S F Vancomycin 0.5 S F Tetracycline >=16 R F Normal [facility] Comment on above: Performed By: #### G BSCX #### [facility] [address] [place] [address] Dr. Claire Mayes US PREG BIOPHY W [...] biophysical profile score: 8.0 Electronically authenticated by: JESES THOMAS Date: 2022-02-03 16:02 Normal [facility] LMPon 06-19-2021 Last menstrual period start date 29May2021 ED-OXNWU-Lyak[facility] n 310 IVF Work Phone: STEM CRUSHER - Office Visiton 08-0 [facility] - Office Visit Diagnoses/Problems Assessed Irregular menses (626.4) (N92.6) Female infertility (628.9) (N97.9) Protein S deficiency (289.81) (D68.59) Occupation [employer] ED Provider Impressions 30 year-old desires [...] ] Imaging: Saline US, can do at [place] [x ] Vitamin D, TSH, prolactin [ [...] contour on HSG - images reviewed from [facility] 08/2018 Uterine Cavity Evaluation: Normal uterine cavity [...] Peak E2 1871--> IM P4--> successful 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 Performed By: #### C BCDF #### [address] [place] [address] Basophils (Bld) [#/Vol] 0.09 10*3/uL Normal 0.00 - 0.10 [facility] Comment on above: Performed By: #### C BCDF #### [address] [place] [address] Basophils/100 WBC (Bld) 0.9 % Normal 0.0 - 2.0 [facility] Comment on above: Performed By: #### C BCDF #### [address] [place] [address] Eosinophils (Bld) [#/Vol] 0.23 10*3/uL Normal 0.00 - 0.70 [facility] Comment on above: Performed By: #### C BCDF #### [address] [place] [address] Eosinophils/100 WBC (Bld) 2.4 % Normal 0.0 - 6.0 [facility] Comment on above: Performed By: #### C BCDF #### [address] [place] [address] Erythrocyte distribution width (RBC) [Ratio] 14.3 % Normal 11.5 - 14.5 [facility] Comment on above: Performed By: #### C BCDF #### [address] [place] [address] Hematocrit (Bld) [Volume fraction] 40.4 % Normal 36.0 - 46.0 [facility] Comment on above: Performed By: #### C BCDF #### [address] [place] [address] Hemoglobin (Bld) [Mass/Vol] 12.9 g/dL Normal 12.0 - 16.0 [facility] Comment on above: Performed By: #### C BCDF #### [address] [place] [address] Lymphocytes (Bld) [#/Vol] 2.44 10*3/uL Normal 1.20 - 4.80 [facility] Comment on above: Performed By: #### C BCDF #### [address] [place] [address] Lymphocytes/100 WBC (Bld) 25.7 % Normal 13.0 - 44.0 [facility] Comment on above: Performed By: #### C BCDF #### [address] [place] [address] MCHC (RBC) [Mass/Vol] 31.9 g/dL Low 32.0 - 36.0 [facility] Comment on above: Performed By: #### C BCDF #### [address] [place] [address] MCV (RBC) [Entitic vol] 88 fL Normal 80 - 100 [facility] Comment on above: Performed By: #### C BCDF #### [address] [place] [address] Monocytes (Bld) [#/Vol] 0.55 10*3/uL Normal 0.10 - 1.00 [facility] Comment on above: Performed By: #### C BCDF #### [address] [place] [address] Monocytes/100 WBC (Bld) 5.8 % Normal 2.0 - 10.0 [facility] Comment on above: Performed By: #### C BCDF #### [address] [place] [address] Neutrophils (Bld) [#/Vol] 6.15 10*3/uL Normal 1.20 - 7.70 [facility] Comment on above: Performed By: #### C BCDF #### [address] [place] [address] Neutrophils/100 WBC (Bld) 64.9 % Normal 40.0 - 80.0 [facility] Comment on above: Performed By: #### C BCDF #### [address] [place] [address] Platelets (Bld) [#/Vol] 410 10*3/uL Normal 150 - 450 [facility] Comment on above: Performed By: #### C BCDF #### [address] [place] [address] RBC (Bld) [#/Vol] 4.58 x10E12/L Normal 4.00 - 5.20 [facility] Comment on above: Performed By: #### C BCDF #### [address] [place] [address] WBC (Bld) [#/Vol] 9.5 10*3/uL Normal 4.4 - 11.3 [facility] Comment on above: Performed By: #### C BCDF #### [address] 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 Reports her asthma is stable. [...] or homicidal ideation Vitals Vital Signs Recorded: [id number] 01:08PM Heart Rate62 Fvtrzhqa247 Nbpertsmg78 Height5 ft 2 in Kzcyia362 lb BMI Ukuqfcqilp64.28 BSA Calculated1.79 Tobacco Useb) No Fall Screeninga) [...] ongoing well-woman care with her current local Clinical Molecular Geneticist. She has Hematology follow-up today following our [...] Aug 06 2020 2:00PM EST (Author) Normal [facility] Complete Blood Count + Diffe marc 06-27-2020 Basophils/100 WBC (Bld) 0.5 % 0.0 - 2.0 AU-USNYX-Fyxaz[address] Work Phone: Eosinophils (Bld) [#/Vol] 0.24 {x10E9/L} See Below AM-GAPPN-Qfyda[address] Work Phone: Comment on above: Reference Range: 0.0 0 - 0.70 Eosinophils/100 WBC (Bld) 1.1 % 0.0 - 6.0 WN-GWMHU-Nnoix[address] Work Phone: Erythrocyte distribution width (RBC) [Ratio] 15.0 % above high threshold See Below UW-ODWGM-Ptldv wn 2nd Fl Work Phone: Comment on above: Reference Range: 11. 5 - 14.5 Hematocrit (Bld) [Volume fraction] 30.0 % below low threshold See Below AR-GHEDT-Izzed[address] Work Phone: Comment on above: Reference Range: 36. 0 - 46.0 Hemoglobin (Bld) [Mass/Vol] 9.8 g/dL below low threshold See Below AR-MNLXK-Iygkv 2nd Fl Work Phone: Comment on above: Reference Range: 12. 0 - 16.0 Lymphocytes (Bld) [#/Vol] 2.25 {x10E9/L} See Below GS-YUBFT-Evjpp 2nd Fl Work Phone: Comment on above: Reference Range: 1.2 0 - 4.80 Lymphocytes/100 WBC (Bld) 10.4 % See Below ZM-AIKVS-Fwkia 2nd Fl Work Phone: Comment on above: Reference Range: 13. 0 - 44.0 MCHC (RBC) [Mass/Vol] 32.7 g/dL See Below ZA-ERWVE-Xqdxj 2nd Fl Work Phone: Comment on above: Reference Range: 32. 0 - 36.0 MCV (RBC) [Entitic vol] 91 fL 80 - 100 OC-BGNLW-Ugiyd wn 2nd Fl Work Phone: Monocytes (Bld) [#/Vol] 0.84 {x10E9/L} See Below CT-XFUSP-Emutd wn 2nd Fl Work Phone: Comment on above: Reference Range: 0.1 0 - 1.00 Monocytes/100 WBC (Bld) 3.9 % 2.0 - 10.0 HY-ZXYLM-Utazc wn 2nd Fl Work Phone: Neutrophils/100 WBC (Bld) 82.7 % See Below OY-JDPXZ-Gawxt 2nd Fl Work Phone: Comment on above: Reference Range: 40. 0 - 80.0 Platelets (Bld) [#/Vol] 225 {x10E9/L} 150 - 450 GI-BFVIX-Sivhc 2nd Fl Work Phone: RBC (Bld) [#/Vol] 3.31 {x10E12/L} below low threshold See Below ND-QGFIU-Qdpyc 2nd Fl Work Phone: Comment on above: Reference Range: 4.0 0 - 5.20 WBC (Bld) [#/Vol] 0.0 {/100_WBC} 0.0-0.0 MG- OBGYN[address] Work Phone: WBC (Bld) [#/Vol] 21.6 {x10E9/L} above high threshold 4.4 - 11.3 WR-HFYIL-Ghwgb[address] Work Phone: Complete Blood Count + Differential 0.11 {x10E9/L} above high threshold See Below ZT-IPIBC-Uzgdk[address] Work Phone: Comment on above: Reference Range: 0.0 0 - 0.10 Complete Blood Count + Differential 1.4 % above high threshold 0.0 - 0.9 DX-IVKIB-Jroom[address] Work Phone: Comment on above: Immature Granulocyte Count (IG) includes promyelocytes, myelocytes and metamyelocytes but does not include bands. Percent differential counts (%) should be interpreted in the context of the absolute cell counts (cells/L). Complete Blood Count + Differential 17.85 {x10E9/L} above high threshold See Below OA-TNWGI-Hxubu[address] Work Phone: Comment on above: Reference Range: 1.2 0 - 7.70 Hematologyon 06-26-2020 Hematocrit (Bld) [Volume fraction] 30.5 % below low threshold See Below XD-FMMJV-Ufqgm[address] Work Phone: Comment on above: Reference Range: 36. 0 - 46.0 Hemoglobin (Bld) [Mass/Vol] 10.7 g/dL below low threshold See Below WG-GOXQX-Eawrh[address] Work Phone: Comment on above: Reference Range: 12. 0 - 16.0 MCV (RBC) [Entitic vol] 84 fL 80 - 100 GT-MZLHX-Lnats[address] Work Phone: Platelets (Bld) [#/Vol] 258 {x10E9/L} 150 - 450 RO-AKSEI-Yvhsx 2nd Fl Work Phone: RBC (Bld) [#/Vol] 3.62 {x10E12/L} below low threshold See Below XQ-EHVHV-Sftkz wn 2nd Fl Work Phone: Comment on above: Reference Range: 4.0 0 - 5.20 WBC (Bld) [#/Vol] 0.0 {/100_WBC} 0.0-0.0 MG- OBGYN-Midto 2nd Fl Work Phone: WBC (Bld) [#/Vol] 35.7 {x10E9/L} above high threshold 4.4 - 11.3 JQ-AUHPV-Jgjgx 2nd Fl Work Phone: Otheron 06-26-2020 Erythrocyte distribution width (RBC) [Ratio] 14.6 % above high threshold See Below OO-ABPQU-Zfxpo wn 2nd Fl Work Phone: Comment on above: Reference Range: 11. 5 - 14.5 MCHC (RBC) [Mass/Vol] 35.1 g/dL See Below JW-JMMXM-Wrbno 2nd Fl Work Phone: Comment on above: [...] 3.5 cm, located 1.0 cm from themargin. Type Mapper sections are submitted in 5 cassettes.AXQ/LMPSummary of Cassettes:Specimen Label SiteA 1 umbilical cord sections 2 membrane rolls 3 placental parenchyma, umbilical cord insertion site 4 placental parenchyma 5 placental parenchyma, lesionaxq/06/26/2020 OA-XWBNH-Mtnpy 2nd Fl Work Phone: Coronavirus 2019 RNA by PCR, Symptomaticon 06-25-2020 Coronavirus 2019 RNA by PCR, Symptomatic NOT DETECTED See Below YF-MTOCP-Mkoyy wn 2nd Fl Work Phone: Comment on [...] this test method. Fact sheet for providers: www.fda.gov/media/806786/downloadFact sheet for patients: www.fda.gov/media/851419/downloadThis test has received FDA Emergency Use Authorization (EUA) and has been verified by [facility] ([facility]). This test is only authorized for the duration of time that circumstances exist to justify the authorization of the emergency use of in vitro diagnostic tests for the detection of SARS-CoV-2 virus and/or diagnosis of COVID-19 infection under section 564(b)(1) of the Act, 21 U.S.C. 360bbb-3(b)(1), unless the authorization is terminated or revoked sooner. [facility] is certified under CLIA-88 as qualified to perform high complexity testing. Testing is performed in the [facility] laboratories located at [address] [place] [address]. Hematologyon 06-25-2020 ABO group Nom (Bld) A [address] Work Phone: Blood group antibody screen Ql Negative [address] Work Phone: Hematocrit (Bld) [Volume fraction] 34.7 % below low threshold See Below [address] Work Phone: Comment on above: Reference Range: 36. 0 - 46.0 Hemoglobin (Bld) [Mass/Vol] 11.6 g/dL below low threshold See Below [address] Work Phone: Comment on above: Reference Range: 12. 0 - 16.0 MCV (RBC) [Entitic vol] 90 fL 80 - 100 MI-DIOHZ-Gznph[address] Work Phone: Platelets (Bld) [#/Vol] 268 {x10E9/L} 150 - 450 JF-WYRSU-Dribk[address] Work Phone: RBC (Bld) [#/Vol] 3.85 {x10E12/L} below low threshold See Below MD-HSRQQ-Cvmdv[address] Work Phone: Comment on above: Reference Range: 4.0 0 - 5.20 Rh immune globulin screen (Bld) [Interp] Positive SV-WPFKL-Thpjr[address] Work Phone: WBC (Bld) [#/Vol] 0.0 {/100_WBC} 0.0-0.0 MG- OBGYN[address] Work Phone: WBC (Bld) [#/Vol] 15.5 {x10E9/L} above high threshold 4.4 - 11.3 IA-IURXW-Sooxl[address] Work Phone: Otheron 06-25-2020 Erythrocyte distribution width (RBC) [Ratio] 14.4 % See Below JN-BRCTE-Bjlhb[address] Work Phone: Comment on above: Reference Range: 11. 5 - 14.5 MCHC (RBC) [Mass/Vol] 33.4 g/dL See Below SI-QUGLE-Bqhho[address] Work Phone: Comment on above: Reference Range: 32. 0 - 36.0 SYPHILIS SCREENING WITH REFL EXon 06-25-2020 T. pallidum IgG+IgM IA Ql (S) NONREACTIVE See Below XF-HGUQF-Xiesl[address] Work Phone: Comment on above: SOURCE: Reference Ra nge: NONREACTIVENo significant level of Treponema pallidum antibody detected. Repeat testing in 2 to 4 weeks may be considered if early infection or incubating syphilis infection is suspected. Imm/Pathon 06-07-2020 Bacteria identified Aer cx Nom (Genital specimen) PATIENT: KIARA ASHLEY [place] [facility] [place]#: [id number] : 89 AGE: SEX: F ORDERED BY: PARAS GUEVARA: VAGINAL COLLECTED: 06/07/20 09:36ANTIBIOTICS AT [place].: RECEIVED : 06/08/20 07:27SITE: VAGINAL R E S U L T S GROUP B STREP SCREEN PRELIM 06/09/20 08:35 CULTURE IN PROGRESS. QV-LGWMO-EDY [address] [place] Work Phone: Bacteria identified Aer cx Nom (Genital specimen) PATIENT: KIARA ASHLEY [place] [facility] [place] BILL#: [id number] : 89 AGE: SEX: F ORDERED BY: PARAS GUEVARA: VAGINAL COLLECTED: 06/07/20 09:36ANTIBIOTICS AT [place].: RECEIVED : 06/08/20 07:27SITE: VAGINAL R E S U L T S GROUP B STREP SCREEN FINAL 06/10/20 11:54 NEGATIVE FOR GROUP B BETA STREP. YY-HXSXX-Lcqva wn 2nd Fl Work Phone: Otheron 06-07-2020 [...] signed by: RILEY TREVIÑO 06/07/20 09:33 Normal EU-OZDPB-UZV [address] [place] Work Phone: Comment on above: ORDER REVISED TO A O B FOLLOW UP OR REPEAT SCAN BY RADIOLOGIST; Original Order Number: [id number] CBC AND DIFFERENTIALon 04-24 % AUTOMATED IMMATURE GRAN 1.9 % High 0.0 - 0.9 [facility] Comment on above: Result Comment: Graciela ture Granulocyte Count (IG) includes promyelocytes, myelocytes and metamyelocytes but does not include bands. Percent differential counts (%) should be interpreted in the context of the absolute cell counts (cells/L). Performed By: #### C BCDF #### [address] [place] [address] Basophils (Bld) [#/Vol] 0.08 10*3/uL Normal 0.00 - 0.10 [facility] Comment on above: Performed By: #### C BCDF #### [address] [place] [address] Basophils/100 WBC (Bld) 0.5 % Normal 0.0 - 2.0 [facility] Comment on above: Performed By: #### C BCDF #### [address] [place] [address] Eosinophils (Bld) [#/Vol] 0.22 10*3/uL Normal 0.00 - 0.70 [facility] Comment on above: Performed By: #### C BCDF #### [address] [place] [address] Eosinophils/100 WBC (Bld) 1.5 % Normal 0.0 - 6.0 [facility] Comment on above: Performed By: #### C BCDF #### [address] [place] [address] Erythrocyte distribution width (RBC) [Ratio] 14.0 % Normal 11.5 - 14.5 [facility] Comment on above: Performed By: #### C BCDF #### [address] [place] [address] Hematocrit (Bld) [Volume fraction] 35.6 % Low 36.0 - 46.0 [facility] Comment on above: Performed By: #### C BCDF #### [address] [place] [address] Hemoglobin (Bld) [Mass/Vol] 11.8 g/dL Low 12.0 - 16.0 [facility] Comment on above: Performed By: #### C BCDF #### [address] [place] [address] Lymphocytes (Bld) [#/Vol] 2.38 10*3/uL Normal 1.20 - 4.80 [facility] Comment on above: Performed By: #### C BCDF #### [address] [place] [address] Lymphocytes/100 WBC (Bld) 16.0 % Normal 13.0 - 44.0 [facility] Comment on above: Performed By: #### C BCDF #### [address] [place] [address] MCHC (RBC) [Mass/Vol] 33.1 g/dL Normal 32.0 - 36.0 [facility] Comment on above: Performed By: #### C BCDF #### [address] [place] [address] MCV (RBC) [Entitic vol] 92 fL Normal 80 - 100 [facility] Comment on above: Performed By: #### C BCDF #### [address] [place] [address] Monocytes (Bld) [#/Vol] 0.74 10*3/uL Normal 0.10 - 1.00 [facility] Comment on above: Performed By: #### C BCDF #### [address] [place] [address] Monocytes/100 WBC (Bld) 5.0 % Normal 2.0 - 10.0 [facility] Comment on above: Performed By: #### C BCDF #### [address] [place] [address] Neutrophils (Bld) [#/Vol] 11.17 10*3/uL High 1.20 - 7.70 [facility] Comment on above: Performed By: #### C BCDF #### [address] [place] [address] Neutrophils/100 WBC (Bld) 75.1 % Normal 40.0 - 80.0 [facility] Comment on above: Performed By: #### C BCDF #### [address] [place] [address] Platelets (Bld) [#/Vol] 285 10*3/uL Normal 150 - 450 [facility] Comment on above: Performed By: #### C BCDF #### [address] [place] [address] RBC (Bld) [#/Vol] 3.89 x10E12/L Low 4.00 - 5.20 [facility] Comment on above: Performed By: #### C BCDF #### [address] [place] [address] WBC (Bld) [#/Vol] 14.9 10*3/uL High 4.4 - 11.3 [facility] Comment on above: Performed By: #### C BCDF #### [address] [place] [address] COMPREHENSIVE PANELon 2019 ALP [Catalytic activity/Vol] 79 U/L Normal 33 - 110 [facility] Comment on above: Performed By: #### C MP #### [address] [place] [address] [facility] [address] [place] [address] ALT [Catalytic activity/Vol] 7 U/L Normal 7 - 45 [facility] Comment on above: Result Comment: Melida ents treated with Sulfasalazine may generate falsely decreased results for ALT. Performed By: #### C MP #### [address] [place] [address] [place] [address] AST [Catalytic activity/Vol] 13 U/L Normal 9 - 39 [facility] Comment on above: Performed By: #### C MP #### [address] [place] [address] [place] [address] Bilirubin [Mass/Vol] 0.3 mg/dL Normal 0.0 - 1.2 [facility] Comment on above: Performed By: #### C MP #### [address] [place] [address] [place] [address] Protein [Mass/Vol] 5.9 g/dL Low 6.4 - 8.2 [facility] Comment on above: Performed By: #### C MP #### [address] [place] [address] [place] [address] Anion gap [Moles/Vol] 12 mmol/L Normal 10 - 20 [facility] Comment on above: Performed By: #### C MP #### [address] [place] [address] [place] [address] Chloride [Moles/Vol] 106 mmol/L Normal 98 - 107 [facility] Comment on above: Performed By: #### C MP #### [address] [place] [address] [place] [address] Potassium [Moles/Vol] 3.7 mmol/L Normal 3.5 - 5.3 [facility] Comment on above: Performed By: #### C MP #### [address] [place] [address] [place] [address] Sodium [Moles/Vol] 137 mmol/L Normal 136 - 145 [facility] Comment on above: Performed By: #### C MP #### [address] [place] [address] [place] [address] Calcium [Mass/Vol] 9.2 mg/dL Normal 8.6 - 10.3 [facility] Comment on above: Performed By: #### C MP #### [address] [place] [address] [place] [address] Glucose [Mass/Vol] 95 mg/dL Normal 74 - 99 [facility] Comment on above: Performed By: #### C MP #### [address] [place] [address] [place] [address] Urea nitrogen [Mass/Vol] 7 mg/dL Normal 6 - 23 [facility] Comment on above: Performed By: #### C MP #### [address] [place] [address] [place] [address] Albumin [Mass/Vol] 3.4 g/dL Normal 3.4 - 5.0 [facility] Comment on above: Performed By: #### C MP #### [address] [place] [address] [place] [address] Creatinine [Mass/Vol] 0.70 mg/dL Normal 0.50 - 1.05 [facility] Comment on above: Performed By: #### C MP #### [address] [place] [address] [place] [address] GFR- AM. >60 Normal >60 [facility] Comment on above: Result Comment: CALC ULATIONS OF ESTIMATED GFR ARE PERFORMED USING THE MDRD STUDY EQUATION FOR THE IDMS-TRACEABLE CREATININE METHODS. CLIN CHEM 2007;53:766-72 Performed By: #### C MP #### [address] [place] [address] [place] [address] GFR-NON AM. >60 Normal >60 [facility] [place] on above: Performed By: #### C MP #### [address] [place] [address] [place] [address] HCO3 (Bld) [Moles/Vol] 23 mmol/L Normal 21 - 32 [facility] [place] on above: Performed By: #### C MP #### [address] [place] [address] [place] [address] FERRITINon 04-24-2020 Ferritin [Mass/Vol] 8 ug/L Normal 8 - 150 [facility] [place] [place] on above: Performed By: #### F ERRI #### [address] [place] [address] IRON + TIBCon 04-24-2020 % SATURATION 14 % Low 25 - 45 [facility] [place] on above: Performed By: #### I RONT #### [address] [place] [address] Iron [Mass/Vol] 65 ug/dL Normal 35 - 150 [facility] [place] on above: Performed By: #### I RONT #### [address] [place] [address] TIBC 449 ug/dL High 240 - 445 [facility] [place] Comment on above: Performed By: #### I RONT #### [address] [place] [address] Complete Blood Count + Diffe rentialon 12-25-2019 Basophils/100 WBC (Bld) 1.0 % 0.0 - 2.0 XH-ZPBXA-GAI 1200 [place] Work Phone: Eosinophils (Bld) [#/Vol] 0.37 {x10E9/L} See Below HU-IDOPU-BWJ 1200 [place] Work Phone: Comment on above: Reference Range: 0.0 0 - 0.70 Eosinophils/100 WBC (Bld) 3.0 % 0.0 - 6.0 GY-BUILL-AGP 1200 [place] Work Phone: Erythrocyte distribution width (RBC) [Ratio] 13.4 % See Below SQ-ZETNZ-PMJ 1200 [place] Work Phone: Comment on above: Reference Range: 11. 5 - 14.5 Hematocrit (Bld) [Volume fraction] 41.8 % See Below GQ-IBLHH-HMY 1200 [place] Work Phone: Comment on above: Reference Range: 36. 0 - 46.0 Hemoglobin (Bld) [Mass/Vol] 13.6 g/dL See Below LY-CEEFU-LHW 1200 [place] Work Phone: Comment on above: Reference Range: 12. 0 - 16.0 Lymphocytes (Bld) [#/Vol] 2.52 {x10E9/L} See Below MA-SOBGE-GJR 1200 [place] Work Phone: Comment on above: Reference Range: 1.2 0 - 4.80 Lymphocytes/100 WBC (Bld) 20.2 % See Below AI-ZTFRM-NDP 1200 [place] Work Phone: Comment on above: Reference Range: 13. 0 - 44.0 MCHC (RBC) [Mass/Vol] 32.5 g/dL See Below LJ-BXGFT-DCQ 1200 [place] Work Phone: Comment on above: Reference Range: 32. 0 - 36.0 MCV (RBC) [Entitic vol] 95 fL 80 - 100 KE-ZWFJU-JZN 1200 [place] Work Phone: Monocytes (Bld) [#/Vol] 0.58 {x10E9/L} See Below MN-CZDEZ-KHU 1200 [place] Work Phone: Comment on above: Reference Range: 0.1 0 - 1.00 Monocytes/100 WBC (Bld) 4.6 % 2.0 - 10.0 XM-LPEUE-MWY 1200 [place] Work Phone: Neutrophils/100 WBC (Bld) 70.6 % See Below HL-WNAXC-JEN 1200 [place] Work Phone: Comment on above: Reference Range: 40. 0 - 80.0 Platelets (Bld) [#/Vol] 372 {x10E9/L} 150 - 450 MQ-AFRYJ-GBH 1200 [place] Work Phone: RBC (Bld) [#/Vol] 4.40 {x10E12/L} See Below MG -OBGYN-MAC 1200 [place] Work Phone: Comment on above: Reference Range: 4.0 0 - 5.20 WBC (Bld) [#/Vol] 0.0 {/100_WBC} 0.0-0.0 MG- OBGYN-MAC 1200 [place] Work Phone: WBC (Bld) [#/Vol] 12.7 {x10E9/L} above high threshold 4.4 - 11.3 YY-CLRJU-AHE 1200 [place] Work Phone: Comment on above: SOURCE: Complete Blood Count + Differential 8.81 {x10E9/L} above high threshold See Below YE-ZRKJJ-QDM 1200 [place] Work Phone: Comment on above: Reference Range: 1.2 0 - 7.70 Complete Blood Count + Differential 0.6 % 0.0 - 0.9 OB-FITMW-DBX 1200 [place] Work Phone: Comment on above: Percent differential counts (%) should be interpreted in the context of the absolute cell counts (cells/L). Complete Blood Count + Differential 0.13 {x10E9/L} above high threshold See Below OD-TAMKV-PHG 1200 [place] Work Phone: Comment on above: Reference Range: 0.0 0 - 0.10 Cult, Urineon 12-25-2019 Bacteria identified Cx Nom (U) PATIENT: KIARA ASHLEY LOCATION: [facility] BILL#: [id number] : 89 AGE: SEX: F ORDERED BY: PARAS GUEVARA: URINE COLLECTED: 12/25/19 09:41ANTIBIOTICS AT [facility].: RECEIVED : 12/25/19 17:06SITE: Clean Catch/Voided R E S U L T S URINE CULTURE,BACTERIAL FINAL 12/26/19 10:21 NO SIGNIFICANT GROWTH. EQ-KFFEC-ZDT 1200 [place] Work Phone: Hematologyon 12-25-2019 ABO group Nom (Bld) A YW-WRACX-XIJ 1200 [place] Work Phone: Blood group antibody screen Ql Negative RY-PPQCG-PWZ 1200 [place] Work Phone: Rh immune globulin screen (Bld) [Interp] Positive OG-HPMFC-FWN 1200 [place] Work Phone: Hepatitis B Surface Antigeno n 12-25-2019 Hepatitis B Surface Antigen NONREACTIVE See Below WG-JIENQ-XTM 1200 [place] Work Phone: Comment on above: [...] Hepatitis C Antibody Test NON-REACTIVE See Below VV-JGWDW-SIL 1200 [place] Work Phone: Comment on above: SOURCE: Reference Ra nge: NONREACTIVE Patients receiving more than 5 mg/day of biotin may have interference in test results. A sample should be taken no sooner than eight hours after previous dose. Contact the testing laboratory for additional information. Metabolic Panelon 12-25-2019 ALP [Catalytic activity/Vol] 67 U/L 33 - 110 RW-DCKML-VEO 1200 [place] Work Phone: Anion gap [Moles/Vol] 15 mmol/L 10 - 20 UN-BSLEU-MSX 1200 [place] Work Phone: Bilirubin [Mass/Vol] 0.3 mg/dL 0.0 - 1.2 UC-OWULD-XOU 1200 [place] Work Phone: Calcium [Mass/Vol] 9.6 mg/dL 8.6 - 10.6 CY-QOZQF-EZV 1200 [place] Work Phone: Chloride [Moles/Vol] 104 mmol/L 98 - 107 DY-WMKFI-REP 1200 [place] Work Phone: CO2 [Moles/Vol] 21 mmol/L 21 - 32 MG-OBGYN- MAC 1200 [place] Work Phone: Creatinine [Mass/Vol] 0.69 mg/dL See Below MC-XMNWA-MFW 1200 [place] Work Phone: Comment on above: Reference Range: 0.5 0 - 1.05 Glucose [Mass/Vol] 83 mg/dL 74 - 99 HA-PKYKL-EVH 1200 [place] Work Phone: Comment on above: SOURCE: Potassium [Moles/Vol] 4.1 mmol/L 3.5 - 5.3 LZ-ZADDU-WTN 1200 [place] Work Phone: Protein [Mass/Vol] 6.2 g/dL below low threshold 6.4 - 8.2 SD-GKWWN-MPB 1200 [place] Work Phone: Sodium [Moles/Vol] 136 mmol/L 136 - 145 NU-WQQHQ-DBY 1200 [place] Work Phone: Urea nitrogen [Mass/Vol] 9 mg/dL 6 - 23 TS-QBOJL-RWP 1200 [place] Work Phone: Otheron 12-25-2019 Albumin BCP dye [Mass/Vol] 3.9 g/dL 3.4 - 5.0 ZX-ZPBZD-MFC 1200 [place] Work Phone: ALT With P-5'-P [Catalytic activity/Vol] 8 U/L 7 - 45 PP-UZAIU-PPJ 1200 [place] Work Phone: Comment on above: Patients treated wit h Sulfasalazine may generate falsely decreased results for ALT. AST With P-5'-P [Catalytic activity/Vol] 11 U/L 9 - 39 WY-UBTOA-CBZ 1200 [place] Work Phone: NONE HG-EVSUV-JRS 1200 [place] Work Phone: >60 >60 KH-MPWZV-CNL 1200 [place] Work Phone: Comment on above: CALCULATIONS OF MARÍA MATED GFR ARE PERFORMED USING THE MDRD STUDY EQUATION FOR THE IDMS-TRACEABLE CREATININE METHODS. CLIN CHEM 2007;53:766-72 SYPHILIS SCREENING WITH REFL EXon 12-25-2019 T. pallidum IgG+IgM IA Ql (S) NONREACTIVE See Below OS-ZNLLY-GNL 1200 [place] Work Phone: Comment on above: [...] (cells/L). Performed By: #### C BCDF #### [address] [place] [address] Basophils (Bld) [#/Vol] 0.16 10*3/uL High 0.00 - 0.10 [facility] [place] on above: Performed By: #### C BCDF #### [address] [place] [address] Basophils/100 WBC (Bld) 1.2 % Normal 0.0 - 2.0 [facility] Comment on above: Performed By: #### C BCDF #### [address] [place] [address] Eosinophils (Bld) [#/Vol] 0.80 10*3/uL High 0.00 - 0.70 [facility] Comment on above: Performed By: #### C BCDF #### [address] [place] [address] Eosinophils/100 WBC (Bld) 5.8 % Normal 0.0 - 6.0 [facility] Comment on above: Performed By: #### C BCDF #### [address] [place] [address] Erythrocyte distribution width (RBC) [Ratio] 13.6 % Normal 11.5 - 14.5 [facility] Comment on above: Performed By: #### C BCDF #### [address] [place] [address] Hematocrit (Bld) [Volume fraction] 39.4 % Normal 36.0 - 46.0 [facility] Comment on above: Performed By: #### C BCDF #### [address] [place] [address] Hemoglobin (Bld) [Mass/Vol] 13.0 g/dL Normal 12.0 - 16.0 [facility] Comment on above: Performed By: #### C BCDF #### [address] [place] [address] Lymphocytes (Bld) [#/Vol] 2.24 10*3/uL Normal 1.20 - 4.80 [facility] Comment on above: Performed By: #### C BCDF #### [address] [place] [address] Lymphocytes/100 WBC (Bld) 16.3 % Normal 13.0 - 44.0 [facility] Comment on above: Performed By: #### C BCDF #### [address] [place] [address] MCHC (RBC) [Mass/Vol] 33.0 g/dL Normal 32.0 - 36.0 [facility] Comment on above: Performed By: #### C BCDF #### [address] [place] [address] MCV (RBC) [Entitic vol] 94 fL Normal 80 - 100 [facility] Comment on above: Performed By: #### C BCDF #### [address] [place] [address] Monocytes (Bld) [#/Vol] 0.83 10*3/uL Normal 0.10 - 1.00 [facility] [place] on above: Performed By: #### C BCDF #### [address] [place] [address] Monocytes/100 WBC (Bld) 6.0 % Normal 2.0 - 10.0 [facility] Comment on above: Performed By: #### C BCDF #### [address] [place] [address] Neutrophils (Bld) [#/Vol] 9.60 10*3/uL High 1.20 - 7.70 [facility] Comment on above: Performed By: #### C BCDF #### [address] [place] [address] Neutrophils/100 WBC (Bld) 69.8 % Normal 40.0 - 80.0 [facility] Comment on above: Performed By: #### C BCDF #### [address] [place] [address] Platelets (Bld) [#/Vol] 380 10*3/uL Normal 150 - 450 [facility] Comment on above: Performed By: #### C BCDF #### [address] [place] [address] RBC (Bld) [#/Vol] 4.21 x10E12/L Normal 4.00 - 5.20 [facility] Comment on above: Performed By: #### C BCDF #### [address] [place] [address] WBC (Bld) [#/Vol] 13.8 10*3/uL High 4.4 - 11.3 [facility] Comment on above: Performed By: #### C BCDF #### [facility] [address] [facility] [place] [address] Complete Blood Count + Brionna tran 11-14-2019 Basophils (Bld) [#/Vol] 0.05 {x10E9/L} See Below MP-Reproductiv e Endocrinology- [place] Work Phone: Comment on above: Reference Range: 0.0 0 - 0.10 Basophils/100 WBC (Bld) 0.4 % 0.0 - 2.0 MP-Reproductiv e Endocrinology- [place] Work Phone: Eosinophils (Bld) [#/Vol] 0.89 {x10E9/L} above high threshold See Below MP-Reproductiv e Endocrinology- [place] Work Phone: Comment on above: Reference Range: 0.0 0 - 0.70 Eosinophils/100 WBC (Bld) 7.3 % 0.0 - 6.0 MP-Reproductiv e Endocrinology- [place] Work Phone: Erythrocyte distribution width (RBC) [Ratio] 13.9 % See Below MP-Reproductiv e Endocrinology- [place] Work Phone: Comment on above: Reference Range: 11. 5 - 14.5 Hematocrit (Bld) [Volume fraction] 39.4 % See Below -Reproductiv e Endocrinology- [place] Work Phone: Comment on above: Reference Range: [...] 17.5 % See Below MP-Reproductiv e Endocrinology- [place] 206 Work Phone: Comment on above: Reference Range: 13. 0 - 44.0 MCHC (RBC) [Mass/Vol] 32.5 g/dL See Below MP-Reproductiv e Endocrinology- [place] 206 Work Phone: Comment on above: Reference Range: 32. 0 - 36.0 MCV (RBC) [Entitic vol] 95 fL 80 - 100 MP-Reproductiv e Endocrinology- [place] 206 Work Phone: Monocytes (Bld) [#/Vol] 0.60 {x10E9/L} See Below MP-Reproductiv e Endocrinology- [place] 206 Work Phone: Comment on above: Reference Range: 0.1 0 - 1.00 Monocytes/100 WBC (Bld) 4.9 % 2.0 - 10.0 MP-Reproductiv e Endocrinology- [place] 206 Work Phone: Neutrophils/100 WBC (Bld) 69.4 % See Below MP-Reproductiv e Endocrinology- [place] 206 Work Phone: Comment on above: Reference Range: 40. 0 - 80.0 Platelets (Bld) [#/Vol] 423 {x10E9/L} 150 - 450 MP-Reproductiv e Endocrinology- [place] 206 Work Phone: RBC (Bld) [#/Vol] 4.15 {x10E12/L} See Below MP -[facility]iv e [facility] 206 Work Phone: Comment on above: Reference Range: 4.0 0 - 5.20 WBC (Bld) [#/Vol] 12.2 {x10E9/L} above high threshold 4.4 - 11.3 MP-Reproductiv e Endocrinology- [place] 206 Work Phone: WBC (Bld) [#/Vol] 0.0 {/100_WBC} 0.0-0.0 MP- Reproductiv e Endocrinology- [place] 206 Work Phone: Complete Blood Count + Differential 0.5 % 0.0 - 0.9 MP-Reproductiv e Endocrinology- [place] Work Phone: Comment on above: Percent differential counts (%) should be interpreted in the context of the absolute cell counts (cells/L). Complete Blood Count + Differential 8.42 {x10E9/L} above high threshold See Below MP-Reproductiv e Endocrinology- [place] Work Phone: Comment on above: Reference Range: 1.2 0 - 7.70 Metabolic Panelon 11-14-2019 ALP [Catalytic activity/Vol] 82 U/L 33 - 110 MP-Reproductiv e Endocrinology- [place] Work Phone: Anion gap [Moles/Vol] 19 mmol/L 10 - 20 MP-Reproductiv e Endocrinology- [place] Work Phone: Bilirubin [Mass/Vol] 0.4 mg/dL 0.0 - 1.2 MP-Reproductiv e Endocrinology- [place] Work Phone: Calcium [Mass/Vol] 9.5 mg/dL 8.6 - 10.6 MP-Reproductiv e Endocrinology- [place] Work Phone: Chloride [Moles/Vol] 100 mmol/L 98 - 107 MP-Reproductiv e Endocrinology- [place] Work Phone: CO2 [Moles/Vol] 20 mmol/L below low threshold 21 - 32 MP-Reproductiv e Endocrinology- [place] Work Phone: Creatinine [Mass/Vol] 0.80 mg/dL See Below MP-Reproductiv e Endocrinology- [place] Work Phone: Comment on above: Reference Range: 0.5 0 - 1.05 Glucose [Mass/Vol] 86 mg/dL 74 - 99 MP-Reproductiv e Endocrinology- [place] Work Phone: Potassium [Moles/Vol] 4.3 mmol/L 3.5 - 5.3 MP-Reproductiv e Endocrinology- [place] Work Phone: Protein [Mass/Vol] 5.8 g/dL below low threshold 6.4 - 8.2 [facility] Work Phone: Sodium [Moles/Vol] 135 mmol/L below low threshold 136 - 145 [facility] Work Phone: Urea nitrogen [Mass/Vol] 10 mg/dL 6 - 23 MP-Reproductiv e [facility] Work Phone: Otheron 11-14-2019 Albumin BCP dye [Mass/Vol] 3.5 g/dL 3.4 - 5.0 MP-Reproductiv e [facility] Work Phone: ALT With P-5'-P [Catalytic activity/Vol] 17 U/L 7 - 45 MP-Reproductiv e [facility] Work Phone: Comment on above: Patients treated wit h Sulfasalazine may generate falsely decreased results for ALT. AST With P-5'-P [Catalytic activity/Vol] 22 U/L 9 - 39 [facility] [place] Work Phone: >60 >60 MP-[address]ductiv [facility] Work Phone: Comment on above: CALCULATIONS OF MARÍA MATED GFR ARE PERFORMED USING THE MDRD STUDY EQUATION FOR THE IDMS-TRACEABLE CREATININE METHODS. CLIN CHEM 2007;53:766-72 CBCon 11-09-2019 Erythrocyte distribution width (RBC) [Ratio] 13.7 % See Below XU-GURAG-Otogr n 310 [facility] Work Phone: Comment on above: Performed By: #### L H #### [facility] [address] [place] [address] Reference Range: 11. 5 - 14.5 Hematocrit (Bld) [Volume fraction] 41.9 % See Below HU-SQWSX-Xayla n 310 [facility] Work Phone: Comment on above: Performed By: #### L H #### [facility] [address] [place] [address] Reference Range: 36. 0 - 46.0 Hemoglobin (Bld) [Mass/Vol] 14.0 g/dL See Below GC-YMMIW-Nafzj n 310 [facility] Work Phone: Comment on above: Performed By: #### L H #### [facility] [address] [place] [address] Reference Range: 12. 0 - 16.0 MCHC (RBC) [Mass/Vol] 33.4 g/dL See Below QB-ORWOR-Mjzoi n 310 [facility] Work Phone: Comment on above: Performed By: #### L H #### [facility] [address] [place] [id number] Reference Range: 32. 0 - 36.0 MCV (RBC) [Entitic vol] 94 fL 80 - 100 GS-CAMNS-Qjmew n 310 [facility] Work Phone: Comment on above: Performed By: #### L H #### [facility] [address] [place] [id number] Platelets (Bld) [#/Vol] 411 10*3/uL Normal 150 - 450 [facility] Comment on above: Performed By: #### L H #### [facility] [address] [place] [id number] RBC (Bld) [#/Vol] 4.44 x10E12/L Normal 4.00 - 5.20 [facility] Comment on above: Performed By: #### L H #### [facility] [address] [place] [id number] WBC (Bld) [#/Vol] 12.4 10*3/uL High 4.4 - 11.3 [facility] Comment on above: Performed By: #### L H #### [facility] [address] [place] [id number] COMPREHENSIVE PANELon 2018 Albumin [Mass/Vol] 3.8 g/dL Normal 3.4 - 5.0 [facility] Comment on above: Performed By: #### L H #### [facility] [address] [place] [id number] ALP [Catalytic activity/Vol] 51 U/L 33 - 110 PQ-HJVIB-Byvad n 310 [facility] Work Phone: Comment on above: Performed By: #### L H #### [facility] [address] [place] [address] ALT [Catalytic activity/Vol] 12 U/L Normal 7 - 45 [facility] Comment on above: Result Comment: Melida ents treated with Sulfasalazine may generate falsely decreased results for ALT. Performed By: #### L H #### [facility] [address] [place] [address] Anion gap [Moles/Vol] 13 mmol/L 10 - 20 SV-OFYSP-Sadnn n 310 [facility] Work Phone: Comment on above: Performed By: #### L H #### [facility] [address] [place] [address] AST [Catalytic activity/Vol] 12 U/L Normal 9 - 39 [facility] Comment on above: Performed By: #### L H #### [facility] [address] [place] [address] Bilirubin [Mass/Vol] 0.4 mg/dL 0.0 - 1.2 SF-ZRYSL-Wkoou n 310 [facility] Work Phone: Comment on above: Performed By: #### L H #### [facility] [address] [place] [address] Calcium [Mass/Vol] 9.3 mg/dL 8.6 - 10.3 OI-CJAFP-Ktehs n 310 [facility] Work Phone: Comment on above: Performed By: #### L H #### [facility] [address] [place] [address] Chloride [Moles/Vol] 102 mmol/L 98 - 107 KX-VVLBC-Vejei n 310 [facility] Work Phone: Comment on above: Performed By: #### L H #### [facility] [address] [place] [address] Creatinine [Mass/Vol] 0.89 mg/dL See Below PO-EVSJJ-Jshxu n 310 [facility] Work Phone: Comment on above: Performed By: #### L H #### [facility] [address] [place] [address] Reference Range: 0.5 0 - 1.05 GFR- AM. >60 Normal >60 [facility] Comment on above: Result Comment: CALC ULATIONS OF ESTIMATED GFR ARE PERFORMED USING THE MDRD STUDY EQUATION FOR THE IDMS-TRACEABLE CREATININE METHODS. CLIN CHEM 2007;53:766-72 Performed By: #### L H #### [facility] [address] [place] [address] GFR-NON AM. >60 Normal >60 [facility] Comment on above: Performed By: #### L H #### [facility] [address] [place] [address] Glucose [Mass/Vol] 74 mg/dL 74 - 99 QP-KWURL-Dsbna n 310 [facility] Work Phone: Comment on above: Performed By: #### L H #### [facility] [address] [place] [address] HCO3 (Bld) [Moles/Vol] 25 mmol/L Normal 21 - 32 [facility] Comment on above: Performed By: #### L H #### [facility] [address] [place] [address] Potassium [Moles/Vol] 4.1 mmol/L 3.5 - 5.3 ZZ-OKSLA-Oiyet n 310 [facility] Work Phone: Comment on above: Performed By: #### L H #### [facility] [address] [place] [address] Protein [Mass/Vol] 6.0 g/dL below low threshold 6.4 - 8.2 VS-MZGEU-Wbykd n 310 [facility] Work Phone: Comment on above: Performed By: #### L H #### [facility] [address] [place] [address] Sodium [Moles/Vol] 136 mmol/L 136 - 145 FR-ZIAPC-Ibhob n 310 [facility] Work Phone: Comment on above: Performed By: #### L H #### [facility] [address] [place] [address] Urea nitrogen [Mass/Vol] 11 mg/dL 6 - 23 FN-FDHWI-Mzaxs n 310 [facility] Work Phone: Comment on above: Performed By: #### L H #### [facility] [address] [place] [address] HCG, Beta Quantitativeon HCG.beta subunit Qn 7102 {mIU/mL} Abnormal XG-DGTDY-Vdtmr n 310 [facility] Work Phone: Comment on [...] HCG measurement is performed using the [employer] [place] Access Immunoassay which detects intact HCG and free beta HCG subunit. This test is not indicated for use as a tumor marker. HCG testing is performed using a different test methodology at [facility] than other [facility]. Direct result comparison should only be made within the same method. REF VALUESNON FEMALE <5MALES <5 HCG,BETA-QUANTITATIVEon - HCG,BETA-QUANTITA TIVE 7102 mIU/mL [facility] Comment on above: Result Comment: Low- [...] HCG measurement is performed using the [employer] [place] Access Immunoassay which detects intact HCG and free beta HCG subunit. This test is not indicated for use as a tumor marker. HCG testing is performed using a different test methodology at [facility] than other [facility]. Direct result comparison should only be made within the same method. REF VALUES NON FEMALE <5 MALES <5 Performed By: #### L H #### [facility] [address] [place] [address] Hematologyon 11-09-2019 Platelets (Bld) [#/Vol] 411 {x10E9/L} 150 - 450 QV-XHNII-Tmpcc n 310 [facility] Work Phone: RBC (Bld) [#/Vol] 4.44 {x10E12/L} See Below MG -OBGYN-Risma n 310 [facility] Work Phone: Comment on above: Reference Range: 4.0 0 - 5.20 WBC (Bld) [#/Vol] 12.4 {x10E9/L} above high threshold 4.4 - 11.3 CH-UAZYM-Banbm n 310 [facility] Work Phone: Metabolic Panelon 11-09-2019 CO2 [Moles/Vol] 25 mmol/L 21 - 32 MG-OBGYN- Risma n 310 [facility] Work Phone: Otheron 11-09-2019 Albumin BCP dye [Mass/Vol] 3.8 g/dL 3.4 - 5.0 XQ-CRLEZ-Xylrf n 310 [facility] Work Phone: ALT With P-5'-P [Catalytic activity/Vol] 12 U/L 7 - 45 QW-RQOWU-Lzrhv n 310 [facility] Work Phone: Comment on above: Patients treated wit h Sulfasalazine may generate falsely decreased results for ALT. AST With P-5'-P [Catalytic activity/Vol] 12 U/L 9 - 39 YE-LNTEB-Fmuqg n 310 [facility] Work Phone: >60 >60 PC-EEKKW-Cpwip n 310 [facility] Work Phone: Comment on above: CALCULATIONS OF MARÍA MATED GFR ARE PERFORMED USING THE MDRD STUDY EQUATION FOR THE IDMS-TRACEABLE CREATININE METHODS. CLIN CHEM 2007;53:766-72 HCG, Beta Quantitativeon HCG.beta subunit Qn 240 {mIU/mL} Abnormal [facility] Work Phone: Comment on above: Low-level positive [...] performed using a different test methodology at [facility] than other [facility]. Direct result comparison should only be made within the same method. REF VALUESNON FEMALE <5MALES <5 HCG,BETA-QUANTITATIVEon 10-15 HCG,BETA-QUANTITA TIVE 240 mIU/mL [facility] Comment on above: Result Comment: Low- [...] performed using a different test methodology at [facility] than other [facility]. Direct result comparison should only be made within the same method. REF VALUES NON FEMALE <5 MALES <5 Performed By: #### E STRA #### [facility] [address] [place] [address] ESTRADIOLon 10-14-2019 ESTRADIOL 1871 pg/mL Normal [facility] Comment on above: Result Comment: Estr adiol measurement is performed using the [employer] [place] Access Immunoassay. Estradiol testing is performed using a different test methodology at [facility] than other [facility]. Direct result comparison should only be made within the same method. REF VALUES FOLLICULAR PHASE 20-144 MID CYCLE 64-357 LUTEAL PHASE 56-214 POSTMENOPAUSE < 32 PREPUBERTY < 20 MALE 10-18Y < 20 ADULT MALE < 40 Performed By: #### E BARBARA #### [facility] [address] [place] [address] Estradiol, Serumon 9 E2 [Mass/Vol] 1871 pg/mL MG-OBGYN-Ri sma n 310 IVF Work Phone: Comment on above: Estradiol measuremen t is performed using the [employer] Access Immunoassay. Estradiol testing is performed using a different test methodology at [facility] than other [facility]. Direct result comparison should only be made within the same method.REF VALUESFOLLICULAR PHASE 20-144MID CYCLE 64-357LUTEAL PHASE 56-214POSTMENOPAUSE < 32PREPUBERTY < 20MALE 10-18Y < 20ADULT MALE < 40 PROGESTERONEon 10-14-2019 PROGESTERONE 1.0 ng/mL Normal [facility] Comment on above: Result Comment: Prog esterone is performed using the [employer] Access Immunoassay. Progesterone testing is performed using a different test methodology at [facility] than other [facility]. Direct result comparison should only be made within the same method. REF VALUES MALE <0.2-0.8 FOLLICULAR PHASE <0.2-1.5 LUTEAL PHASE 7.4-15.4 POSTMENOPAUSAL <0.2-0.2 1ST TRIMESTER 12.0-84.0 2ND TRIMESTER 10.2-58.8 3RD TRIMESTER 46.5-160 Performed By: #### E BARBARA #### [facility] [address] [place] [address] Progesterone, Serumon 2018 Progesterone [Mass/Vol] 1.0 ng/mL [id number]-Hjxlm n 310 IVF Work Phone: Comment on above: Progesterone is perf ormed using the [employer] Access Immunoassay. Progesterone testing is performed using a different test methodology at [facility] than [facility]. Direct result comparison should only be made within the same method.REF VALUESMALE <0.2-0.8 FOLLICULAR PHASE <0.2-1.5 LUTEAL PHASE 7.4-15.4 POSTMENOPAUSAL <0.2-0.2 1ST TRIMESTER 12.0-84.0 2ND TRIMESTER 10.2-58.8 3RD TRIMESTER 46.5-160 ESTRADIOLon 10-11-2019 ESTRADIOL 284 pg/mL Normal [facility] Comment on above: Result Comment: Estr adiol measurement is performed using the [employer] Access Immunoassay. Estradiol testing is performed using a different test methodology at [facility] than other [facility]. Direct result comparison should only be made within the same method. REF VALUES FOLLICULAR PHASE 20-144 MID CYCLE 64-357 LUTEAL PHASE 56-214 POSTMENOPAUSE < 32 PREPUBERTY < 20 MALE 10-18Y < 20 ADULT MALE < 40 Performed By: #### E STRA #### [facility] [address] [place] [address] Estradiol, Serumon 9 E2 [Mass/Vol] 284 pg/mL MG-OBGYN-Ri [facility] n 310 IVF Work Phone: Comment on above: Estradiol measuremen t is performed using the [employer] [place] Access Immunoassay. Estradiol testing is performed using a different test methodology at [facility] than other [facility]. Direct result comparison should only be made within the same method.REF VALUESFOLLICULAR PHASE 20-144MID CYCLE 64-357LUTEAL PHASE 56-214POSTMENOPAUSE < 32PREPUBERTY < 20MALE 10-18Y < 20ADULT MALE < 40 ESTRADIOLon 10-05-2019 ESTRADIOL 129 pg/mL Normal [facility] Comment on above: Result Comment: Estr adiol measurement is performed using the [employer] Access Immunoassay. Estradiol testing is performed using a different test methodology at [facility] than other [facility]. Direct result comparison should only be made within the same method. REF VALUES FOLLICULAR PHASE 20-144 MID CYCLE 64-357 LUTEAL PHASE 56-214 POSTMENOPAUSE < 32 PREPUBERTY < 20 MALE 10-18Y < 20 ADULT MALE < 40 Performed By: #### E STRA #### [facility] [address] [place] [address] Estradiol, Serumon 9 E2 [Mass/Vol] 129 pg/mL MG-OBGYN-Ri [facility] n 310 IVF Work Phone: Comment on above: Estradiol measuremen t is performed using the [employer] [place] Access Immunoassay. Estradiol testing is performed using a different test methodology at [facility] than other [facility]. Direct result comparison should only be made within the same method.REF VALUESFOLLICULAR PHASE 20-144MID CYCLE 64-357LUTEAL PHASE 56-214POSTMENOPAUSE < 32PREPUBERTY < 20MALE 10-18Y < 20ADULT MALE < 40 PROGESTERONEon 10-05-2019 PROGESTERONE 0.2 ng/mL Normal [facility] Comment on above: Result Comment: Prog esterone is performed using the Jose [employer] Access Immunoassay. Progesterone testing is performed using a different test methodology at [facility] than other [facility]. Direct result comparison should only be made within the same method. REF VALUES MALE <0.2-0.8 FOLLICULAR PHASE <0.2-1.5 LUTEAL PHASE 7.4-15.4 POSTMENOPAUSAL <0.2-0.2 1ST TRIMESTER 12.0-84.0 2ND TRIMESTER 10.2-58.8 3RD TRIMESTER 46.5-160 Performed By: #### E STRA #### [facility] [address] [place] [address] Progesterone, Serumon 2018 Progesterone [Mass/Vol] 0.2 ng/mL [id number]-Pqruv n 310 IVF Work Phone: Comment on above: Progesterone is perf ormed using the [employer] Access Immunoassay. Progesterone testing is performed using a different test methodology at [facility] than other [facility]. Direct result comparison should only be made within the same method.REF VALUESMALE <0.2-0.8 FOLLICULAR PHASE <0.2-1.5 LUTEAL PHASE 7.4-15.4 POSTMENOPAUSAL <0.2-0.2 1ST TRIMESTER 12.0-84.0 2ND TRIMESTER 10.2-58.8 3RD TRIMESTER 46.5-160 ESTRADIOLon 10-02-2019 ESTRADIOL 357 pg/mL Normal [facility] Comment on above: Result Comment: Estr adiol measurement is performed using the [employer] Access Immunoassay. Estradiol testing is performed using a different test methodology at [facility] than other [facility]. Direct result comparison should only be made within the same method. REF VALUES FOLLICULAR PHASE 20-144 MID CYCLE 64-357 LUTEAL PHASE 56-214 POSTMENOPAUSE < 32 PREPUBERTY < 20 MALE 10-18Y < 20 ADULT MALE < 40 Performed By: #### E STRA #### [facility] [address] [place] [address] Estradiol, Serumon 9 E2 [Mass/Vol] 357 pg/mL MG-OBGYN-Cr ock er 206A IVF Work Phone: Comment on above: Estradiol measuremen t is performed using the [employer] [place] Access Immunoassay. Estradiol testing is performed using a different test methodology at [facility] than other [facility]. Direct result comparison should only be made within the same method.REF VALUESFOLLICULAR PHASE 20-144MID CYCLE 64-357LUTEAL PHASE 56-214POSTMENOPAUSE < 32PREPUBERTY < 20MALE 10-18Y < 20ADULT MALE < 40 LUTEINIZING HORMONEon 2018 LUTEINIZING HORMONE 14.7 IU/L Normal [facility] Comment on above: Result Comment: Lute inizing Hormone [LH] is performed using the [employer] [place] Access Immunoassay. LH testing is performed using a different test methodology at [facility] than other [facility]. Direct result comparison should only be made within the same method. REF VALUES FOLLICULAR PHASE 1.5-10.0 MID-CYCLE 13.0-72.0 LUTEAL PHASE 0.5-13.0 MENOPAUSE 15.0-65.0 PREPUBERTY 0- 3.0 CHILDREN 0- 6.0 ADULT MALE 1.0- 9.0 Performed By: #### E STRA #### [facility] [address] [place] [address] Luteinizing Hormone, Serumon 10-02-2019 Lutropin Qn 14.7 {IU/L} CV-[id number]-Itl ck er 206A IVF Work Phone: Comment on above: Luteinizing Hormone [LH] is performed using the [employer] Access Immunoassay. LH testing is performed using a different test methodology at [facility] than other [facility]. Direct result comparison should only be made within the same method.REF VALUESFOLLICULAR PHASE 1.5-10.0MID-CYCLE 13.0-72.0LUTEAL PHASE 0.5-13.0MENOPAUSE 15.0-65.0PREPUBERTY 0- 3.0CHILDREN 0- 6.0ADULT MALE 1.0- 9.0 PROGESTERONEon 10-02-2019 PROGESTERONE 0.1 ng/mL Normal [facility] Comment on above: Result Comment: Prog esterone is performed using the [employer] Access Immunoassay. Progesterone testing is performed using a different test methodology at [facility] than other [facility]. Direct result comparison should only be made within the same method. REF VALUES MALE <0.2-0.8 FOLLICULAR PHASE <0.2-1.5 LUTEAL PHASE 7.4-15.4 POSTMENOPAUSAL <0.2-0.2 1ST TRIMESTER 12.0-84.0 2ND TRIMESTER 10.2-58.8 3RD TRIMESTER 46.5-160 Performed By: #### E STRA #### [facility] [address] [place] [address] Progesterone, Serumon 2018 Progesterone [Mass/Vol] 0.1 ng/mL JR-VDDMI-Areoy er 206A IVF Work Phone: Comment on above: Progesterone is perf ormed using the [employer] Access Immunoassay. Progesterone testing is performed using a different test methodology at [facility] than other [facility]. Direct result comparison should only be made within the same method.REF VALUESMALE <0.2-0.8 FOLLICULAR PHASE <0.2-1.5 LUTEAL PHASE 7.4-15.4 POSTMENOPAUSAL <0.2-0.2 1ST TRIMESTER 12.0-84.0 2ND TRIMESTER 10.2-58.8 3RD TRIMESTER 46.5-160 HCG,BETA-QUANTITATIVEon -2 HCG,BETA-QUANTITA TIVE 10 mIU/mL [facility] Comment on above: Result Comment: Low- [...] HCG measurement is performed using the [employer] [place] Access Immunoassay which detects intact HCG and free beta HCG subunit. This test is not indicated for use as a tumor marker. HCG testing is performed using a different test methodology at [facility] than [facility]. Direct result comparison should only be made within the same method. REF VALUES NON FEMALE <5 MALES <5 Performed By: #### L H #### [facility] [address] [place] [address] LUTEINIZING HORMONEon 2018 LUTEINIZING HORMONE 57.0 IU/L Normal [facility] Comment on above: Result Comment: Lute inizing Hormone [LH] is performed using the [employer] Access Immunoassay. LH testing is performed using a different test methodology at [facility] than other [facility]. Direct result comparison should only be made within the same method. REF VALUES FOLLICULAR PHASE 1.5-10.0 MID-CYCLE 13.0-72.0 LUTEAL PHASE 0.5-13.0 MENOPAUSE 15.0-65.0 PREPUBERTY 0- 3.0 CHILDREN 0- 6.0 ADULT MALE 1.0- 9.0 Performed By: #### E STRA #### [facility] [address] [place] [address] PROGESTERONEon 08-13-2019 PROGESTERONE 6.7 ng/mL Normal [facility] Comment on above: Result Comment: Prog esterone is performed using the [employer] Access Immunoassay. Progesterone testing is performed using a different test methodology at [facility] than [facility]. Direct result comparison should only be made within the same method. REF VALUES MALE <0.2-0.8 FOLLICULAR PHASE <0.2-1.5 LUTEAL PHASE 7.4-15.4 POSTMENOPAUSAL <0.2-0.2 1ST TRIMESTER 12.0-84.0 2ND TRIMESTER 10.2-58.8 3RD TRIMESTER 46.5-160 Performed By: #### L H #### [facility] [address] [place] [address] ESTRADIOLon 08-12-2019 ESTRADIOL 1380 pg/mL Normal [facility] Comment on above: Result Comment: Estr adiol measurement is performed using the [employer] Access Immunoassay. Estradiol testing is performed using a different test methodology at [facility] than other [facility]. Direct result comparison should only be made within the same method. REF VALUES FOLLICULAR PHASE 20-144 MID CYCLE 64-357 LUTEAL PHASE 56-214 POSTMENOPAUSE < 32 PREPUBERTY < 20 MALE 10-18Y < 20 ADULT MALE < 40 Performed By: #### L H #### [facility] [address] [place] [address] PROGESTERONEon 08-12-2019 PROGESTERONE 1.7 ng/mL Normal [facility] Comment on above: Result Comment: Prog esterone is performed using the [employer] [place] Access Immunoassay. Progesterone testing is performed using a different test methodology at [facility] than other [facility]. Direct result comparison should only be made within the same method. REF VALUES MALE <0.2-0.8 FOLLICULAR PHASE <0.2-1.5 LUTEAL PHASE 7.4-15.4 POSTMENOPAUSAL <0.2-0.2 1ST TRIMESTER 12.0-84.0 2ND TRIMESTER 10.2-58.8 3RD TRIMESTER 46.5-160 Performed By: #### L H #### [facility] [address] [place] [address] ESTRADIOLon 08-11-2019 ESTRADIOL 874 pg/mL Normal [facility] Comment on above: Result Comment: Estr adiol measurement is performed using the [employer] Access Immunoassay. Estradiol testing is performed using a different test methodology at [facility] than other [facility]. Direct result comparison should only be made within the same method. REF VALUES FOLLICULAR PHASE 20-144 MID CYCLE 64-357 LUTEAL PHASE 56-214 POSTMENOPAUSE < 32 PREPUBERTY < 20 MALE 10-18Y < 20 ADULT MALE < 40 Performed By: #### L H #### [facility] [address] [place] [address] PROGESTERONEon 08-11-2019 PROGESTERONE 1.2 ng/mL Normal [facility] Comment on above: Result Comment: Prog esterone is performed using the [employer] Access Immunoassay. Progesterone testing is performed using a different test methodology at [facility] than other [facility]. Direct result comparison should only be made within the same method. REF VALUES MALE <0.2-0.8 FOLLICULAR PHASE <0.2-1.5 LUTEAL PHASE 7.4-15.4 POSTMENOPAUSAL <0.2-0.2 1ST TRIMESTER 12.0-84.0 2ND TRIMESTER 10.2-58.8 3RD TRIMESTER 46.5-160 Performed By: #### L H #### [facility] [address] [place] [address] ESTRADIOLon 08-09-2019 ESTRADIOL 385 pg/mL Normal [facility] Comment on above: Result Comment: Estr adiol measurement is performed using the [employer] [place] Access Immunoassay. Estradiol testing is performed using a different test methodology at [facility] than other [facility]. Direct result comparison should only be made within the same method. REF VALUES FOLLICULAR PHASE 20-144 MID CYCLE 64-357 LUTEAL PHASE 56-214 POSTMENOPAUSE < 32 PREPUBERTY < 20 MALE 10-18Y < 20 ADULT MALE < 40 Performed By: #### L H #### [facility] [address] [place] [address] ESTRADIOLon 08-07-2019 ESTRADIOL 80 pg/mL Normal [facility] Comment on above: Result Comment: Estr adiol measurement is performed using the [employer] Access Immunoassay. Estradiol testing is performed using a different test methodology at [facility] than [facility]. Direct result comparison should only be made within the same method. REF VALUES FOLLICULAR PHASE 20-144 MID CYCLE 64-357 LUTEAL PHASE 56-214 POSTMENOPAUSE < 32 PREPUBERTY < 20 MALE 10-18Y < 20 ADULT MALE < 40 Performed By: #### L H #### [facility] [address] [place] [address] ESTRADIOLon 08-04-2019 ESTRADIOL 58 pg/mL Normal [facility] Comment on above: Result Comment: Estr adiol measurement is performed using the [employer] [place] Access Immunoassay. Estradiol testing is performed using a different test methodology at [facility] than [facility]. Direct result comparison should only be made within the same method. REF VALUES FOLLICULAR PHASE 20-144 MID CYCLE 64-357 LUTEAL PHASE 56-214 POSTMENOPAUSE < 32 PREPUBERTY < 20 MALE 10-18Y < 20 ADULT MALE < 40 Performed By: #### L H #### [facility] [address] [place] [address] ESTRADIOLon 07-07-2019 ESTRADIOL 110 pg/mL Normal [facility] Comment on above: Result Comment: Estr adiol measurement is performed using the [employer] Access Immunoassay. Estradiol testing is performed using a different test methodology at [facility] than other [facility]. Direct result comparison should only be made within the same method. REF VALUES FOLLICULAR PHASE 20-144 MID CYCLE 64-357 LUTEAL PHASE 56-214 POSTMENOPAUSE < 32 PREPUBERTY < 20 MALE 10-18Y < 20 ADULT MALE < 40 Performed By: #### L H #### [facility] [address] [place] [address] NR MRI SELLA WO/Won 05-31-20 19 NR MRI SELLA WO/W Patient Name: KIARA ASHLEY STUDY: NR MRI SELLA WO/W; 05/31/2019 2:00 pm INDICATION: History of 7 mm microadenoma 2008. COMPARISON: None. ACCESSION NUMBER(S): [id number] ORDERING CLINICIAN: SHAHLA HEALY TECHNIQUE: High resolution [...] signed by: IRENE BLAKE PHYSICIAN Normal [facility] ESTRADIOLon 05-05-2019 ESTRADIOL 217 pg/mL Normal [facility] Comment on above: Result Comment: Estr adiol measurement is performed using the [employer] Access Immunoassay. Estradiol testing is performed using a different test methodology at [facility] than other [facility]. Direct result comparison should only be made within the same method. REF VALUES FOLLICULAR PHASE 20-144 MID CYCLE 64-357 LUTEAL PHASE 56-214 POSTMENOPAUSE < 32 PREPUBERTY < 20 MALE 10-18Y < 20 ADULT MALE < 40 Performed By: #### E STRA #### [facility] [address] [place] [address] LUTEINIZING HORMONEon 2018 LUTEINIZING HORMONE 4.4 IU/L Normal [facility] Comment on above: Result Comment: Lute inizing Hormone [LH] is performed using the [employer] Access Immunoassay. LH testing is performed using a different test methodology at [facility] than other [facility]. Direct result comparison should only be made within the same method. REF VALUES FOLLICULAR PHASE 1.5-10.0 MID-CYCLE 13.0-72.0 LUTEAL PHASE 0.5-13.0 MENOPAUSE 15.0-65.0 PREPUBERTY 0- 3.0 CHILDREN 0- 6.0 ADULT MALE 1.0- 9.0 Performed By: #### L H #### [facility] [address] [place] [address] ESTRADIOLon 04-11-2019 ESTRADIOL 118 pg/mL Normal [facility] Comment on above: Result Comment: Estr adiol measurement is performed using the [employer] [place] Access Immunoassay. Estradiol testing is performed using a different test methodology at [facility] than [facility]. Direct result comparison should only be made within the same method. REF VALUES FOLLICULAR PHASE 20-144 MID CYCLE 64-357 LUTEAL PHASE 56-214 POSTMENOPAUSE < 32 PREPUBERTY < 20 MALE 10-18Y < 20 ADULT MALE < 40 Performed By: #### E STRA #### [facility] [address] [place] [address] LUTEINIZING HORMONEon 2018 LUTEINIZING HORMONE 7.7 IU/L Normal [facility] Comment on above: Result Comment: Lute inizing Hormone [LH] is performed using the [employer] [place] [place] Access Immunoassay. LH testing is performed using a different test methodology at [facility] than other [facility]. Direct result comparison should only be made within the same method. REF VALUES FOLLICULAR PHASE 1.5-10.0 MID-CYCLE 13.0-72.0 LUTEAL PHASE 0.5-13.0 MENOPAUSE 15.0-65.0 PREPUBERTY 0- 3.0 CHILDREN 0- 6.0 ADULT MALE 1.0- 9.0 Performed By: #### L H #### [facility] [address] [place] [address] PROGESTERONEon 04-11-2019 PROGESTERONE 0.1 ng/mL Normal [facility] Comment on above: Result Comment: Prog esterone is performed using the [employer] Access Immunoassay. Progesterone testing is performed using a different test methodology at [facility] than other [facility]. Direct result comparison should only be made within the same method. REF VALUES MALE <0.2-0.8 FOLLICULAR PHASE <0.2-1.5 LUTEAL PHASE 7.4-15.4 POSTMENOPAUSAL <0.2-0.2 1ST TRIMESTER 12.0-84.0 2ND TRIMESTER 10.2-58.8 3RD TRIMESTER 46.5-160 Performed By: #### P SVEN #### [facility] [address] [place] [address] ESTRADIOLon 03-17-2019 ESTRADIOL 120 pg/mL Normal [facility] Comment on above: Result Comment: Estr adiol measurement is performed using the [employer] Access Immunoassay. Estradiol testing is performed using a different test methodology at [facility] than other [facility]. Direct result comparison should only be made within the same method. REF VALUES FOLLICULAR PHASE 20-144 MID CYCLE 64-357 LUTEAL PHASE 56-214 POSTMENOPAUSE < 32 PREPUBERTY < 20 MALE 10-18Y < 20 ADULT MALE < 40 Performed By: #### E STRA #### [facility] [address] [place] [address] LUTEINIZING HORMONEon 2018 LUTEINIZING HORMONE 6.8 IU/L Normal [facility] Comment on above: Result Comment: Lute inizing Hormone [LH] is performed using the [employer] Access Immunoassay. LH testing is performed using a different test methodology at [facility] than other [facility]. Direct result comparison should only be made within the same method. REF VALUES FOLLICULAR PHASE 1.5-10.0 MID-CYCLE 13.0-72.0 LUTEAL PHASE 0.5-13.0 MENOPAUSE 15.0-65.0 PREPUBERTY 0- 3.0 CHILDREN 0- 6.0 ADULT MALE 1.0- 9.0 Performed By: #### L H #### [facility] [address] [place] [address] ESTRADIOLon 02-20-2019 ESTRADIOL 521 pg/mL Normal [facility] Comment on above: Result Comment: Estr adiol measurement is performed using the [employer] Access Immunoassay. Estradiol testing is performed using a different test methodology at [facility] than other [facility]. Direct result comparison should only be made within the same method. REF VALUES FOLLICULAR PHASE 20-144 MID CYCLE 64-357 LUTEAL PHASE 56-214 POSTMENOPAUSE < 32 PREPUBERTY < 20 MALE 10-18Y < 20 ADULT MALE < 40 Performed By: #### E STRA #### [facility] [address] [place] [address] LUTEINIZING HORMONEon 2018 LUTEINIZING HORMONE 3.5 IU/L Normal [facility] Comment on above: Result Comment: Lute inizing Hormone [LH] is performed using the [employer] Access Immunoassay. LH testing is performed using a different test methodology at [facility] than other [facility]. Direct result comparison should only be made within the same method. REF VALUES FOLLICULAR PHASE 1.5-10.0 MID-CYCLE 13.0-72.0 LUTEAL PHASE 0.5-13.0 MENOPAUSE 15.0-65.0 PREPUBERTY 0- 3.0 CHILDREN 0- 6.0 ADULT MALE 1.0- 9.0 Performed By: #### L H #### [facility] [address] [place] [address] Vital Signs Date Time Vital Sign Value Performing Clinician [place] golden 10-10-2024 10:24-0500 Body mass index (BMI) [Ratio] 28.72 kg/m2 Nikhil PERKINS Work Phone: [facility] 10-10-2024 10:24-0500 Body weight 71.22 kg Nikhil PERKINS Work Phone: [facility] 10-10-2024 10:24-0500 Diastolic blood pressure 60 mm[Hg] Nikhil Garces APRN-MANAGER [employer] Work Phone: [facility] 10-10-2024 10:24-0500 Heart rate 87 /min Nikhil Garces APRN-MANAGER [employer] Work Phone: [facility] [employer] [facility] 10-10-2024 10:24-0500 Respiratory rate 16 /min Nikhil Garces [employer]ING-MANAGER [employer] Work Phone: [facility] 10-10-2024 10:24-0500 SaO2% (BldA) [Mass fraction] 98 % Nikhil Garces APRN-MANAGER [employer] Work Phone: [facility] 10-10-2024 10:24-0500 Systolic blood pressure 120 mm[Hg] Nikhil Garces APRN-MANAGER [employer] Work Phone: [facility] 08-15-2024 14:27-0400 Body height 157.5 cm Demario Quintin DO Work Phone: [facility] 08-15-2024 14:27-0400 Body mass index (BMI) [Ratio] 30.54 kg/m2 Demario Quintin DO Work Phone: [facility] 08-15-2024 14:27-0400 Body weight 75.75 kg Demario Quintin DO Work Phone: [facility] 08-15-2024 14:27-0400 Diastolic blood pressure 76 mm[Hg] Demario Quintin DO Work Phone: [facility] 08-15-2024 14:27-0400 Systolic blood pressure 114 mm[Hg] Demario Quintin DO Work Phone: [facility] 12-27-2023 10:57-0500 Body mass index (BMI) [Ratio] 34.84 kg/m2 Bere JOHNSON Work Phone: [facility] 12-27-2023 10:57-0500 Body weight 83.64 kg Bere JOHNSON Work Phone: [facility] 12-27-2023 10:57-0500 Diastolic blood pressure 68 mm[Hg] Bere JOHNSON Work Phone: [facility] 12-27-2023 10:57-0500 Systolic blood pressure 110 mm[Hg] Bere JOHNSON Work Phone: [facility] 02-27-2023 11:35-0400 Body mass index (BMI) [Ratio] 29.26 kg/m2 Evelyn Grubererhorn Work Phone: [facility] [employer] 02-27-2023 11:35-0400 Body temperature 98.8 [degF] Evelyn Grubererhorn Work Phone: [facility] 02-27-2023 11:35-0400 Body weight 72.58 kg Evelyn [facility]ubererhorn [facility] 02-27-2023 11:35-0400 Diastolic blood pressure 66 mm[Hg] Evelyn Grubererhorn Work Phone: [facility] [employer] 02-27-2023 11:35-0400 Heart rate 88 /min Evelyn Grubererhorn Work Phone: [facility] [employer] 02-27-2023 11:35-0400 Respiratory rate 14 /min Evelyn Grubererhorn Work Phone: [facility] [employer] 02-27-2023 11:35-0400 SaO2% (BldA) [Mass fraction] 100 % Evelyn Grubererhorn Work Phone: [facility] [employer] 02-27-2023 11:35-0400 Systolic blood pressure 103 mm[Hg] Evelyn Grubererhorn Work Phone: [facility] 06-19-2021 14:03-0400 Body height 157.48 cm Evelyn Grubererhorn Work Phone: FO-JCLSE-Bnykec 310 IVF Work Phone: 06-19-2021 14:03-0400 Body mass index (BMI) [Ratio] 29.26 kg/m2 Evelyn Grubererhorn Work Phone: EC-VSOBW-Cuerfo 310 IVF Work Phone: 06-19-2021 14:03-0400 Body surface area Derived from formula 1.74 m2 [facility] Work Phone: EU-UWQAK-Cxrukm 310 IVF Work Phone: 06-19-2021 14:03-0400 Body weight 72.58 kg [facility] Work Phone: NR-NZCFF-Vxqhwo 310 IVF Work Phone: 06-19-2021 14:03-0400 1 1 [facility] Work Phone: BX-IVQVN-Nrpeuo 310 IVF Work Phone: Comment on above: GRAV PARA 06-19-2021 14:03-0400 0 1 [facility] Work Phone: AK-ILBDN-Qrjudd 310 IVF Work Phone: Comment on above: [employer]Scale 06-07-2020 10:41-0400 BMI (Body Mass Index) 34.93 kg/m2 King Lappen GV-GWDCP-XRJ 1200 [place] Work Phone: 06-07-2020 10:41-0400 Body weight 86.64 kg King Lappen XI-INXQF-BOB 120 0 [place] Work Phone: 06-07-2020 10:41-0400 BP Diastolic 76 mm[Hg] King Lappen RG-YQYTM-XJI 120 0 [place] Work Phone: 06-07-2020 10:41-0400 BP Systolic 111 mm[Hg] King Lappen GB-QJCKE-FXW 120 0 [place] Work Phone: 06-07-2020 10:41-0400 BSA (Body Surface Area) 1.87 m2 King Lappen MU-KOJNO-YAM 1200 [place] Work Phone: 06-07-2020 10:41-0400 Pulse (Heart Rate) 101 /min King Lappen TL-ECJTO-YCS 1200 [place] Work Phone: 06-07-2020 10:41-0400 0 1 King Lappen LB-IKNMJ-SZR 120 0 [place] Work Phone: Comment on above: Pain Scale 12-25-2019 10:58-0500 BMI (Body Mass Index) 30.18 kg/m2 King Lappen SW-EAHMW-EEC 1200 [place] Work Phone: 12-25-2019 10:58-0500 Body weight 74.84 kg King Lappen SH-EODLR-UIM 120 0 [place] Work Phone: 12-25-2019 10:58-0500 BP Diastolic 68 mm[Hg] King Lappen JP-VXYAC-PKW 120 0 [place] Work Phone: 12-25-2019 10:58-0500 BP Systolic 112 mm[Hg] King Lappen AF-JIVLR-EKU 120 0 [place] Work Phone: 12-25-2019 10:58-0500 BSA (Body Surface Area) 1.76 m2 King Lappen JD-SGBER-GQG 1200 [place] Work Phone: 11-09-2019 11:28-0500 Body Temperature 98.78 [degF] Kelechi Gage WJ-FLVGD-Hoyncm 310 IVF Work Phone: 11-09-2019 11:28-0500 BP Diastolic 76 mm[Hg] Kelechi Gage GF-TLGFH-Ltmyvy 310 IVF Work Phone: 11-09-2019 11:28-0500 BP Systolic 112 mm[Hg] Kelechi Gage DG-WBMYA-Nyvblq 310 IVF Work Phone: 11-09-2019 11:28-0500 Respiratory Rate 96 /min Kelechi Gage AE-DKSYJ-Hrwywy 310 IVF Work Phone: Encounters Encounter Date Encounter Type Care Provider Facility Start: 10-10-2024 End: 10-10-2024 Office outpatient visit 15 minutes Nikhil Garces APRN-MANAGER [employer] Work Phone: [facility] Comment on above: Acute non-recurrent maxillary sinusitis (Primary Dx); Acquired hypothyroidism Start: 10-10-2024 End: 10-10-2024 ambulatory [facility] Start: 09-07-2024 End: 09-07-2024 ambulatory MD Evelyn Perez Work Phone: [facility] Work Phone: Start: 09-07-2024 End: 09-07-2024 Patient encounter procedure MD Evelyn Perez Work Phone: [facility] [address] Work Phone: Start: 08-16-2024 End: 08-16-2024 Orders Only Nikhil Garces HUMAN INSIGHTS LEAD ADS MARKETING-MANAGER W[employer] WASTEWATER Work Phone: [facility] Comment on above: Acquired hypothyroid ism (Primary Dx) Start: 08-15-2024 End: 08-15-2024 Office outpatient visit 15 minutes Demario Quintin DO Work Phone: [facility] Comment on above: Abnormal uterine ble eding (AUB); Menorrhagia with regular cycle; PCOS (polycystic ovarian syndrome); H/O blood clots Start: 08-15-2024 End: 08-15-2024 Bamboo flowsheet Demario Quintin DO Work Phone: [facility] Start: 08-15-2024 End: 08-15-2024 Bamboo flowsheet Demario Quintin DO Work Phone: [facility] Start: 08-15-2024 End: 08-15-2024 Clinisync Result Encounter Demario Quintin DO Work Phone: [facility] External Department Unsolicited Start: 08-15-2024 End: 08-15-2024 ambulatory DEMARIO QUINTIN Not Available Start: 08-15-2024 ambulatory [facility] Start: 07-18-2024 ambulatory [facility] Start: 06-22-2024 End: 07-16-2024 ambulatory [facility] Start: 05-11-2024 End: 06-15-2024 ambulatory [facility] Start: 04-17-2024 End: 04-17-2024 ambulatory BERE ELSA Not Available Start: 03-27-2024 End: 03-27-2024 ambulatory BERE ELSA Not Available Start: 02-29-2024 End: 02-29-2024 ambulatory DEMARIO QUINTIN Not Available Start: 02-22-2024 End: 02-22-2024 ambulatory BERE ELSA Not Available Start: 02-07-2024 End: 02-07-2024 ambulatory DEMARIO QUINTIN Not Available Start: 01-24-2024 End: 01-24-2024 ambulatory BERE ELSA Not Available Start: 01-10-2024 End: 01-11-2024 ambulatory Zoya Buitrago H[employer]IGHTS LEAD ADS MARKETING-MANAGER WATER WASTEWATER Facility:Pulmonology & Critical [facility] Start: 12-27-2023 End: 12-27-2023 flow [...] 10-05-2023 ambulatory BERE ELSA Not Available Start: 02-27-2023 End: 02-27-2023 Emergency department patient visit EVELYN Husain [facility] Start: 02-27-2023 End: 02-27-2023 Emergency department patient visit Evelyn Perez Work Phone: [facility] Comment on above: Sprain of left ankle , unspecified ligament, initial encounter (Primary Dx) Start: 01-11-2023 End: 01-11-[address] DEMARIO RIBEIRO . Facility:[facility] Start: 09-22-2022 End: 09-22-2022 Emergency department patient visit JAMI ROMERO [facility] Start: 03-10-[address] EVELYN PEREZ Facility:[facility] [...] 12-27-2021 End: 12-27-2021 ambulatory Sabina Barnhart Other [email or web address] Other Start: 12-27-2021 Office outpatient vi sit 5 minutes Sabina Barnhart [facility] Start: 07-16-2021 Patient encounter procedure Evelyn Perez Work Phone: TK-MFFQO-Betmet 310 IVF Work Phone: Start: 07-07-2021 AUDIT Evelyn santana Work Phone: CP-RYXDV-Ydkrsm 310 IVF Work Phone: Start: 07-07-2021 Chart Update Evelyn castrohorn Work Phone: IP-MTXTJ-Eyhnfw 310 IVF Work Phone: Start: 07-02-2021 Telephone encounter Evelyn Husain Alejandro higginbothamdeirdreclarisse Work Phone: CX-QZKXN-Vbcxkc 310 IVF Work Phone: Start: 06-19-2021 Patient encounter procedure Evelyn Calderonrn Work Phone: UL-KQUHP-Jyfwpp 310 IVF Work Phone: Start: 06-07-2020 Patient encounter procedure King Lappen FL-NWLCE-TEK 1200 [place] Work Phone: Start: 04-24-2020 Patient encounter procedure King Lappen NE-GZKRH-NVI 1200 [place] Work Phone: Start: 02-20-2020 Patient encounter procedure King Lappen BL-HHTRA-PKT 1200 [place] Work Phone: Start: 02-14-2020 Patient encounter procedure King Lappen BT-MDGPG-LVT 1200 [place] Work Phone: Start: 01-23-2020 Patient encounter procedure King Lappen WG-BMAHK-KQX 1200 [place] Work Phone: Start: 12-25-2019 Patient encounter procedure King Lappen DM-HIUZU-ZEO 1200 [place] Work Phone: Start: 11-21-2019 Patient encounter procedure King Lappen CP-PYNTF-LGG 1200 [place] Work Phone: Start: 11-16-2019 Patient encounter procedure Kelechi Gage MP-Reproductive Endocrinology-[facility] e 206 Work Phone: Start: 11-14-2019 Patient encounter procedure Kelechi Gage OJ-FFIIE-Dcffru 310 IVF Work Phone: Start: 11-09-2019 Patient encounter procedure Kelechi Gage RG-GDELE-Vxvrpr 310 IVF Work Phone: Start: 11-02-2019 Patient encounter procedure Kelechi Gage MP-Reproductive Endocrinology-[place] Work Phone: Start: 10-21-2019 Patient encounter procedure Kelechi Gage MP-Reproductive Endocrinology-[place] Work Phone: Start: 10-14-2019 Patient encounter procedure Kelechi Gage JB-NZAQG-Scznle 310 IVF Work Phone: Start: 10-11-2019 Patient encounter procedure Kelechi Gage XZ-WGUSO-Vvfhpj 310 IVF Work Phone: Start: 10-05-2019 Patient encounter procedure Kelechi Gage GX-SWOBL-Tejtlv 320 Work Phone: Start: 10-02-2019 Patient encounter procedure Kelechi Gage BP-MOCFO-Thusipq 206A IVF Work Phone: Start: 08-14-2019 Patient encounter procedure Kelechi Gage GR-GPUGG-Nsvxlh 310 IVF Work Phone: Start: 08-13-2019 Patient encounter procedure Kelechi Gage KK-FDHPO-Mvkezu 310 IVF Work Phone: Start: 08-12-2019 Patient encounter procedure Kelechi Gage EN-CQIYX-Tcufez 310 IVF Work Phone: Start: 08-11-2019 Patient encounter procedure Kelechi Gage ZP-KWQEB-Ygtpcf 310 IVF Work Phone: Start: 08-09-2019 Patient encounter procedure Kelechi Gage GZ-LVIBN-Cxbxad 310 IVF Work Phone: Start: 08-07-2019 Patient encounter procedure Kelechi Gage YF-OSSJQ-Snhvkz 310 IVF Work Phone: Start: 08-04-2019 Patient encounter procedure Kelechi Gage EK-ZLBTZ-Etwtxl 310 IVF Work Phone: Start: 07-07-2019 Patient encounter procedure Kelechi Gage ZO-YKLJX-Zcjlcu 310 IVF Work Phone: Start: 06-08-2019 Patient encounter procedure Kelechi Gage YW-DFCOA-Kmfpdy 310 IVF Work Phone: Start: 05-17-2019 Patient encounter procedure Kelechi Gage UC-TYUDY-Ooufik 310 IVF Work Phone: Start: 05-08-2019 Patient encounter procedure Kelechi Gage UH-DNHYS-Alnivt 310 IVF Work Phone: Start: 05-05-2019 Patient encounter procedure Kelechi Gage GY-ZTYEQ-Axvzwv 310 IVF Work Phone: Start: 04-13-2019 Patient encounter procedure Kelechi Gage TT-XHWMT-Vpmajq 310 IVF Work Phone: Start: 04-11-2019 Patient encounter procedure Kelechi Gage QO-QMNBR-Hcskav 310 IVF Work Phone: Start: 03-20-2019 Patient encounter procedure Kelechi Gage OH-MREGP-Hduaug 310 IVF Work Phone: Start: 03-17-2019 Patient encounter procedure Kelechi Gage OF-NAKED-Boyyzg 310 IVF Work Phone: Start: 02-22-2019 Patient encounter procedure Kelechi Gage AN-XYGTL-Mliqeo 310 IVF Work Phone: Start: 02-20-2019 Patient encounter procedure Kelechi Gage LG-NAYXB-Fijywt 310 IVF Work Phone: Start: 02-13-2019 Patient encounter procedure Bruce T[place] Start: 02-08-2019 End: 02-12-2019 Patient encounter procedure Bruce Mayes [place] Start: 01-19-2019 Patient encounter procedure Kelechi Gage VC-WZCZQ-Anrsfb 310 IVF Work Phone: Patient encounter status Evelyn Perez Work Phone: SB-ISFPY-Mqbgsp 310 IVF Work Phone: Procedures Date Procedure Procedure Detail Performing Clinician Start: 08-15-2024 ALL CBC WITH AUTO DIFF Demario Ribeiro DO Work Phone: Start: 10-05-2023 Microscopic observat ion [Identifier] in Cervix by Cyto stain Nikhil Garces APRN-MANAGER [employer] Work Phone: Start: 02-27-2023 Radex ankle complete [...] Treatment Date Care Activity Detail Author Start: 10-05-2026 Screening for malignant neoplasm of cervix Pap Smear [facility] Start: 10-10-2025 Tobacco Screening Tobacco Screening [facility] Start: 11-16-2024 End: 08-16-2025 Thyroid profile includes TSH FT4 Thyroid profile includes TSH FT4 Lab Routine Acquired hypothyroidism Expected: 11/16/2024 (Approximate), Expires: 08/16/2025 [employer] Work Phone: Comment on above: Expected: 11/16/2024 (Approximate), Expires: 08/16/2025 Start: 10-31-2024 End: 10-31-2024 Patient encounter procedure 10/31/2024 9:20 AM EST Office Visit [facility] [address] [place] [phone] Demario Ribeiro DO [address] [place] [address] [facility] Start: 10-30-2024 End: 10-30-2024 Patient encounter procedure 10/30/2024 10:30 AM EST Office Visit [facility] [address] [place] [id number] Nikhil Garces, [employer]IGHTS LEAD ADS MARKETING-MANAGER [employer] WASTEWATER [address] [place] [address] [facility] Start: 10-28-2024 Adult BMI Screening Adult BMI Screen ing [facility] Start: 10-28-2024 Tobacco Screening Tobacco Screening [facility] Start: 10-10-2024 End: 08-16-2025 Thyroid profile includes TSH FT4 Thyroid profile includes TSH FT4 Lab Routine Acquired hypothyroidism Expected: 10/10/2024 (Approximate), Expires: 08/16/2025 [facility] Work Phone: Comment on above: Expected: 10/10/2024 (Approximate), Expires: 08/16/2025 Start: 08-15-2024 End: 08-15-2024 Patient encounter procedure 08/15/2024 2:20 PM EDT Office Visit [facility] [address] [place], [place] [phone] Demario Ribeiro DO [address] [place] [address] Arrived [facility] Comment on above: Arrived Start: 08-15-2024 End: 08-15-2025 ANTI XA LMWH ([facility]) ANTI XA [facility] ([facility]) Lab Routine Abnormal uterine bleeding (AUB) Menorrhagia with regular cycle H/O blood clots Expected: 08/15/2024 (Approximate), Expires: 08/15/2025 [facility] Comment on above: Expected: 08/15/2024 (Approximate), Expires: 08/15/2025 Start: 08-15-2024 End: 08-15-2025 aPTT in Blood by Coagulation assay APTT Lab Routine Menorrhagia with regular cycle Expected: 08/15/2024 (Approximate), Expires: 08/15/2025 [facility] Comment on above: Expected: 08/15/2024 (Approximate), [...] above: Expected: 08/15/2024 (Approximate), Expires: 08/15/2025 Start: 07-16-2024 Influenza vaccination Influenza Vacc ine [facility] Start: 02-07-2024 End: 02-07-2024 Patient encounter procedure 02/07/2024 9:40 AM EDT Routine [facility] [address] [place], [place] [phone] Demario Ribeiro, DO [address] [place] [address] [facility] Start: 02-07-2024 End: 02-07-2024 Professional / ancillary services management 02/07/2024 9:00 AM EDT Ancillary Procedure [facility] [address] [place], [place] [phone] [facility] Start: 01-24-2024 End: 01-24-2024 Patient encounter procedure 01/24/2024 9:30 AM EDT Routine [facility] [address] [place], [place] [phone] Bere Steel PA [address] [place], [place] [address] [facility] Start: 01-10-2024 End: 01-10-2024 Patient encounter procedure 01/10/2024 2:20 PM EST Routine [facility] [address] [place], [place] [address] Demario Ribeiro, DO [address] [place] [address] [facility] Start: 01-10-2024 End: 01-10-2024 Professional / ancillary services management 01/10/2024 2:00 PM EST Ancillary Procedure [facility] [address] [place], [place] [address] [facility] Start: 12-27-2023 End: 12-27-2024 US biophysical profile w non stress test US biophysical profile w non stress test Imaging Routine Hypothyroidism (acquired) (CMS/HCC) H/O blood clots Expected: 12/27/2023 (Approximate), Expires: 12/27/2024 [facility] Work Phone: Comment on above: Expected: 12/27/2023 (Approximate), Expires: 12/27/2024 Start: 12-27-2023 End: 12-27-2024 US for US OB SCAN FOR GROWTH Imaging Routine Hypothyroidism, unspecified type (CMS/HCC) Excessive growth affecting management of in third trimester, single or unspecified fetus Expected: 12/27/2023 (Approximate), Expires: 12/27/2024 [facility] Comment on above: Expected: 12/27/2023 (Approximate), Expires: 12/27/2024 Start: 06-15-2023 Influenza vaccination Flu vacc ine (Season Ended) [facility] Start: 2021 Screening for malignant neoplasm of cervix [facility] Start: 07-25-2021 ULTRASOUND, Provider : OBGYN IVF RDMS ARDEN 1,[facility], Status: Pen, Time: 9:00 AM ULTRASOUND, Provider: OBGYN IVF RDMS ARDEN 1,MG OBGYN, Status: Pen, Time: 9:00 AM DH-ODBTF-Ipwwwq 310 IVF Work Phone: Start: 07-16-2021 ULTRASOUND, Provider : OBGYN IVF RDMS [id number] 1,MG OBGYN, Status: Pen, Time: 1:00 PM ULTRASOUND, Provider: OBGYN IVF RDMS [id number] 1,MG OBGYN, Status: Pen, Time: 1:00 PM JX-YMSFM-Ulzymh 310 IVF Work Phone: Start: 07-07-2021 ULTRASALIN, Provider : Miguel A Barrera, Status: Pen, Time: 10:00 AM ULTRASALIN, Provider: Miguel A Barrera, Status: Pen, Time: 10:00 AM NS-SGQIT-Clgndt 310 IVF Work Phone: Start: 06-05-2020 MAC Imaging Order MG-CLIP ON SUNGLASSES INSPECTOR-MAC 1200 [place] Work Phone: Start: 11-16-2019 IO Ultrasound, -Reproductive Endocrinology-[facility] chastity 206 Work Phone: Start: 11-14-2019 Blood count complete auto&auto difrntl wbc Complete Blood Count + Differential UF-HDBZZ-Apecfb 310 IVF Work Phone: Start: 11-14-2019 Comprehensive metabolic 2000 panel YT-HWYCA-Cxvpdw 310 IVF Work Phone: Start: 11-02-2019 Gonadotropin chorion ic quantitative HCG, Beta Quantitative -Reproductive Endocrinology-[facility] chastity 206 Work Phone: Start: 10-11-2019 IO Ultrasound, limited pelvic, follicle monitoring XW-SVYJT-Johfze 310 IVF Work Phone: Start: 10-05-2019 IO Ultrasound, limited pelvic, follicle monitoring CJ-OMBSR-Tethpf 320 Work Phone: Start: 06-19-2019 DTaP,Tdap and Td Vaccines (6 - Td or Tdap) DTaP,Tdap and Td Vaccines (6 - Td or Tdap) [facility] Start: 2012 Screening for malignant neoplasm of cervix Pap smear [facility] Start: 2010 DTaP/Tdap/Td vaccine (1 - Tdap) DTaP/Tdap/Td vaccine (1 - Tdap) [facility] Start: 2009 Hepatitis C screening Hepatitis C sc reen [facility] Start: 2006 HIV screening HIV screen [facility] Start: 2003 Depression Screen Depression Screen [facility] Start: 2003 Depression Screening Depression Scre ening [facility] Start: 1992 Varicella vaccine (1 of 2 - 2-dose childhood series) Varicella vaccine (1 of 2 - 2-dose childhood series) [facility] Start: 03-02-1992 COVID-19 Vaccine (#1) COVID-19 Vacci ne (#1) [facility] Assay of estradiol Estradiol, Serum MG-CLIP ON SUNGLASSES INSPECTOR-Risman 310 IVF Work Phone: Comment on above: Approx [id number] Approx [id number] Approx [id number] Assay of progesterone Progesterone, Serum LQ-YFJDV-Arxadr 310 IVF Work Phone: Comment on above: Approx [id number] CBC W Auto Differential panel - Blood CBC and differential Lab Routine PCOS (polycystic ovarian syndrome) Ordered: 08/15/2024 [facility] Comment on above: Ordered: 08/15/2024 DHEA-sulfate DHEA-sulfate Lab Routine PCOS (polycystic ovarian syndrome) Ordered: 08/15/2024 [facility] Comment on above: Ordered: 08/15/2024 Estradiol Estradiol Lab Ro utine Abnormal uterine bleeding (AUB) Menorrhagia with regular cycle H/O blood clots Ordered: 08/15/2024 [facility] Comment on above: Ordered: 08/15/2024 Follicle stimulating hormone Follicle stimulating hormone Lab Routine PCOS (polycystic ovarian syndrome) Ordered: 08/15/2024 [facility] Comment on above: Ordered: 08/15/2024 Gonadotropin luteinizing hormone Luteinizing Hormone, Serum RN-FRCBB-Vswnei 310 IVF Work Phone: Comment on above: Approx [id number] hCG, quantitative, hCG, quantitative, Lab Routine Menorrhagia with regular cycle Ordered: 08/15/2024 [facility] Comment on above: Ordered: 08/15/2024 Hemoglobin A1c/Hemoglobin.total in Blood Hemoglobin A1c Lab Routine Menorrhagia with regular cycle Ordered: 08/15/2024 [facility] Comment on above: Ordered: 08/15/2024 Luteinizing hormone Luteinizing hormone Lab Routine PCOS (polycystic ovarian syndrome) Ordered: 08/15/2024 [facility] Comment on above: Ordered: 08/15/2024 Progesterone Progesterone Lab Routine Abnormal uterine bleeding (AUB) Menorrhagia with regular cycle H/O blood clots Ordered: 08/15/2024 [facility] Comment on above: Ordered: 08/15/2024 Prothrombin time (PT ) in Blood by Coagulation assay Protime-INR Lab Routine Abnormal uterine bleeding (AUB) Menorrhagia with regular cycle H/O blood clots Ordered: 08/15/2024 [facility] Comment on above: Ordered: 08/15/2024 Thyrotropin [Units/volume] in Serum or Plasma TSH Lab Routine Menorrhagia with regular cycle Ordered: 08/15/2024 [facility] [employer] Work Phone: Comment on above: Ordered: 08/15/2024 Thyroxine (T4) free [Mass/volume] in Serum or Plasma T4, free Lab Routine Menorrhagia with regular cycle Ordered: 08/15/2024 [facility] [employer] Comment on above: Ordered: 08/15/2024 WW-JXULX-Weyjyg 320 Work Phone: IO Ultrasound, l imited pelvic, follicle monitoring KH-JPTKZ-Bwycja 310 IVF Work Phone: Comment on above: Approx [id number] Approx [id number] Approx [id number] NEGATED: Highlighted row has been ruled out! 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 2016 Private Health Insurance [id number] .[id number]. [id number] 2016 Private Health Insurance [id number] 1991 Unknown [id number] 2.16.840.1.829516.3.579.2. 593 1991 Unknown [id number] 2.16.840.1.276866.3.579.2. 593 1991 Unknown [id number] 2.16.840.1.349836.3.579.2. 593 1991 Unknown [id number] 2.16.840.1.346245.3.579.2. 593 1991 Unknown [id number] 2.16.840.1.607618.3.579.2. 593 1991 Unknown [id number] 2.16.840.1.242870.3.579.2. 593 1991 Unknown [id number] 2.16.840.1.896557.3.579.2. 593 1991 Unknown [id number] 2.16.840.1.498474.3.579.2. 593 1991 Unknown [id number] 2.16.840.1.881348.3.579.2. 593 1991 Unknown [id number] 2.16.840.1.831613.3.579.2. 593 1991 Unknown [id number] 2.16.840.1.475490.3.579.2. 593 1991 Unknown [id number] 2.16.840.1.779373.3.579.2. 593 1991 Unknown [id number] 2.16.840.1.377309.3.579.2. 593 1991 Unknown [id number] 2.16.840.1.168994.3.579.2. 593 1991 Unknown [id number] 2.16.840.1.934926.3.579.2. 173 1991 Unknown [id number] 2.16.840.1.679306.3.579.2. 173 1991 Unknown [id number] 2.16.840.1.396113.3.579.2. 196 1991 Unknown [id number] 2.16.840.1.627474.3.579.2. 196 1991 Unknown [id number] 2.16.840.1.050654.3.579.2. 1259 1991 Unknown [id number] 2.16.840.1.829010.3.579.2. 1259 1991 Unknown [id number] 2.16.840.1.223128.3.579.2. 1259 1991 Unknown [id number] 2.16.840.1.550800.3.579.2. 1259 1991 Unknown [id number] 2.16.840.1.437984.3.579.2. 1259 1991 Unknown [id number] 2.16.840.1.409469.3.579.2. 1259 1991 Unknown [id number] 2.16.840.1.856662.3.579.2. 1259 1991 Unknown [id number] 2.16.840.1.313423.3.579.2. 1259 1991 Unknown [id number] 2.16.840.1.031967.3.579.2. 1259 1991 Unknown [id number] 2.16.840.1.715930.3.579.2. 1259 1991 Unknown [id number] 2.16.840.1.154198.3.579.2. 1259 1991 Unknown [id number] 2.16.840.1.788476.3.579.2. 1259 1991 Unknown [id number] 2.16.840.1.655403.3.579.2. 1286 1991 Unknown [id number] 2.16.840.1.074352.3.579.2. 1286 1991 Unknown [id number] 2.16.840.1.390067.3.579.2. 1286 1991 Unknown [id number] 2.16.840.1.673596.3.579.2. 1286 1991 Unknown [id number] 2.16.840.1.686047.3.579.2. 1286 1959 Self-pay [id number] 1959 Unknown [id number] 1959 Unknown [id number] Unknown [id number] 2.16.840.1.232326.3.579.2. 243 Unknown [id number] 2.16.840.1.288429.3.579.2. 243 Unknown Unknown Basilia BC/BS [id number] Unknown [id number] 2.16.840.1.567790.3.579.2. 531 Social History Date Type Detail Facility - - AB-TULLL-Lykyyd 310 IVF Work Phone: Start: 12-26-2020 End: 12-27-2023 Never a smoker Never a smoker [facility] Comment on above: [facility] ED; Start: 12-26-2020 End: 09-06-2023 Sex Assigned At [facility] Start: 09-22-2022 End: 06-08-2023 Tobacco smoking status NHIS Never smoked tobacco [employer] Work Phone: Start: 09-22-2022 End: 06-08-2023 Tobacco use and exposure Smokeless tobacco non-user [employer] Work Phone: Start: 1991 Sex Assigned At Not on file B ON [employer] Phone: Start: 02-17-2023 End: 02-27-2023 Exposure to SARS-CoV-2 (event) Not sure [employer] Start: 12-27-2023 Alcohol intake Current drinke r [...] Alcoholic beverage intake Ex-drinker (finding) [facility] Start: 10-28-2023 End: 10-10-2024 Alcoholic beverage intake Lifetime non-drinker (finding) [facility] Start: 1990 Sex Assigned At Female F [facility] Start: 06-20-2015 Sex Female (finding) [facility] Functional Status Date Assessment Result Facility NEGATED: Highlighted row Functional performance Functional status health issues are not documented Disease [id number] 310 IVF Work Phone: Mental Status Date Assessment Result Facility NEGATED: Highlighted row Cognitive function [Interpretation] Cognitive status health issues are not documented Disease [id number] 310 IVF Work Phone: Clinical Notes 06-15-2020 to 10-10-2024 GREGORIO Escobar - 10/10/2024 10:30 AM Dallas Pisano LPN - 08/15/2024 2:20 PM ELIZABETH Branch - 12/27/2023 10:50 AM EST Note Date & Type Note Facility 10-10-2024 History of Present illness Narrative Images from the original note were not included. [address] [place] [id number] SUBJECTIVE: Patient ID: Kiara Ashley is a 34 y.o. female. Patient presents to the office for complaints of on and off sinus pressure/congestion. Her kids have been ill as well. Her face was swollen this weekend. OTC medication is not helping. Sinusitis Associated symptoms include congestion and sinus pressure. Pertinent negatives include no coughing, ear pain, neck pain, shortness of breath or sore throat. The following portions of the patient's history were reviewed and updated as appropriate: allergies, current medications, past family history, past medical history, past social history, past surgical history and problem list. REVIEW OF SYSTEMS: Review of Systems Constitutional: Negative for fatigue, fever and unexpected weight change. HENT: Positive for congestion, sinus pressure and sinus pain. Negative for ear pain and sore throat. Eyes: Negative for photophobia, pain, discharge and visual disturbance. Respiratory: Negative for cough and shortness of breath. Cardiovascular: Negative for chest pain, palpitations and leg swelling. Gastrointestinal: Negative for abdominal pain, diarrhea, nausea and vomiting. Endocrine: Negative for polydipsia, polyphagia and polyuria. Genitourinary: Negative for difficulty urinating, frequency, hematuria and urgency. Musculoskeletal: Negative for arthralgias, gait problem, joint swelling and neck pain. Skin: Negative for pallor and rash. Neurological: Negative for dizziness, weakness, light-headedness and numbness. Psychiatric/Behavioral: Negative for sleep disturbance. The patient is not nervous/anxious. PHYSICAL EXAMINATION: Vitals: 10/10/24 1024 BP: 120/60 Pulse: 87 Resp: 16 SpO2: 98% Weight: 71.2 kg (157 lb) Physical Exam Constitutional: Appearance: She is well-developed. HENT: Head: Normocephalic and atraumatic. Right Ear: External ear normal. Left Ear: External ear normal. Nose: Congestion present. Right Sinus: Maxillary sinus tenderness present. Left Sinus: Maxillary sinus tenderness present. Eyes: Conjunctiva/sclera: Conjunctivae normal. Pupils: Pupils are equal, round, and reactive to light. Cardiovascular: Rate and Rhythm: Normal rate and regular rhythm. Heart sounds: Normal heart sounds. Pulmonary: Effort: Pulmonary effort is normal. Breath sounds: Normal breath sounds. Musculoskeletal: Cervical back: Normal range of motion. Skin: General: Skin is warm and dry. Neurological: Mental Status: She is alert and oriented to person, place, and time. Psychiatric: Mood and Affect: Mood normal. ASSESSMENT/PLAN: Kiara was seen today for sinusitis. Diagnoses and all orders for this visit: Acute non-recurrent maxillary sinusitis Acquired hypothyroidism - Thyroid profile includes TSH FT4; Future Other orders - amoxicillin-pot clavulanate (AUGMENTIN) 875-125 mg per tablet; Take 1 tablet by mouth in the morning and 1 tablet before bedtime. Do all this for 10 days. Follow-up: Augmenting bid for ten days-she is Follow up with routine appointment. GREGORIO Escobar 10/10/24 1046 documented in this encounter [employer] 08-15-2024 History of Present illness Narrative Reason for Appointment: Patient ID: [...] 11/26/2023 Past Medical History: Diagnosis Date Asthma (CMS/HCC) Deep vein thrombosis (CMS/HCC) 2013 Infection of obstetric surgical wound Protein S deficiency (CMS/HCC) Vaginal delivery HISTORY PAST MEDICAL HISTORY SOCIAL HISTORY Past Medical History: Diagnosis Date Asthma (CMS/HCC) Deep vein thrombosis (CMS/HCC) 2014 Infection of obstetric surgical wound Protein S [...] disease Paternal Grandmother Mally Hyperlipidemia Paternal Grandmother [place] Hypertension Paternal Grandmother [place] Diabetes Paternal Grandmother [place] Mental illness Paternal Grandmother [place] COPD Paternal Grandmother [place] Diabetes Paternal Grandfather Gene Hypertension Paternal Grandfather [...] nursing note reviewed. Exam conducted with a forest botany instructor present. Vitals: Estimated body mass index is [...] Demario Ribeiro DO documented in this encounter [facility] 12-27-2023 History of Present illness Narrative Reason for Appointment: Patient ID: [...] of: ELIZABETH Daly documented in this encounter [facility] 12-27-2021 Evaluation note Encounter Date Diagnosis Assessment [...] Patient care instructions given in writting by [facility] Care At Home document. [email or web address] Other 09-10-2021 NoteProgress Note Met with pt: Reviewed ultrasound results from today, single IUP with cardiac activity, size within ultrasound error for dating, appropriate interval growth from previous ultrasound, pt denies pain orbleeding. LMP 05/29/2021 8 w + 1 d [...] Reviewed plan with Dr. Bruce Aburto, MANAGER WATER WASTEWATER 07/25/2021 09:22 note: ob scan LOLLY: 03/05/2022. [...] PNV, Lovenox 40mg BID , Prometrium 100mg BIDthrough 10 weeks day. Repeat scan in 7-10 days. Plan reviewed by Dr. Healy. Petra Harjit MANAGER WATER WASTEWATER 07/16/21 1409 TC to pt with quant = 3238 form yesterday; normal rise from 728 on 07/02; Pt doing well; no problemswith Lovenox. PT transferred to [facility] to schedule OB US for next week at [facility]. Bere Way RN 07/07/2021 11:47 Spoke with patient regarding YTIG=981. Pain=0. Patient states she will begin prometrium BID and Lovenox today. Patient will repeat BHCg on Wednesday when she is at work. Patient aware RN will call her WednesdayJuly 07 with results and plan. Lucy Dunlap R.N.07/03/2021 12:19 Spoke to patient, will start Prometrium 100 mg BID and Lovenox 40 mg BID today (+Protein S deficiency). Fidelity to f/u with patient tomorrow once HCG level is back. Patient verbalized understanding. Rosibel Sam RN 07/02/2021 13:54 note: Reviewed positive test. LMP 05/29, conceived on christy cycle/IC. Plan to get HCG drawn today. Start Prometrium 100mg BID. Start Lovenox 40mg BID SQ. Plan per Dr. Healy. RN to communicate. Petra Harjit MANAGER WATER WASTEWATER 07/02/21 1304 Active Problems 16 weeks gestation [...] directed. Peak F (more content not included)... [id number] Chief complaint Narrative - Reported* An interactive audio and video telecommunication system which permits real time communications between the patient (at the originating site) and provider (at the distant site) was utilized to providethis telehealth service. * Verbal consent was requested and obtained from KIARA ASHLEY on this date, 06/19/2021 03:00 PM , fora telehealth visit. * Pt presents for a FUV to discuss transferring their remaining embryo. * MZ, Office System Analyst. * Telemedicine visit due to COVID-19 pandemic. Verbal consent obtained for telemedicine visit. * [employer] [id number] 310 IVF Work Phone: [phone] History of Present illness Narrative* IVF Consult: * Patient is a 30 year-old who presents for a FET consult * * OB Hx: * 06/2020: IOL @ 38 weeks due to history of Protein S deficiency on Lovenox (therapeutic dosing), needed forceps during delivery. * Baby did not go to NICU. Does have hip dysplasia, currently being treated with braces. * , goal is to breastfeed x 1 year * Currently on Lovenox 40 mg daily (previously was on 60 mg daily during fertility treatments) * Indication for IVF: * Ovulatory dysfunction, otherwise unexplained * *Protein S deficiency * -Has seen Dr. Mayes for hematology evaluation and confirmed Protein S deficiency * -Has seen Dr. Guevara for MFM consult; has plan for anti-coagulation management in * *Pituitary microadenoma (7 mm); history of galactorrhea * -Prolactin normal, now with galactorrhea resolved--> no medications ever given * -No visual changes or headaches * -Repeat brain MRI 05/2019 showed no pituitary adenoma * Length of infertility: * 1 year currently * Ovarian reserve testing: * AMH: 2.07 * AFC: 6 R, 5 Left * Status of fallopian tubes: * Bilaterally patent fallopian tubes with normal contour on HSG - images reviewed from [facility] 08/2018 * Uterine Cavity Evaluation: * Normal uterine cavity on HSG- images reviewed * Trial transfer: Easy transfer previously * Past Infertility Treatments: * Prior Clomid/IUI? * 4 cycles Clomid/IC, 2 cycle letrozyle IC * 4 cycles of letrozole/IUI- currently on 60 mg daily with plan to change to 40 mg BID with + test * IVF #1: 07/2010: Antagonist cycle with letrozole during stim, FSH 275 with low dose hCG added with angatonist start. Peak E2 1380--> Lupron co-trigger---> 15 eggs retrieved, 5 mature--> ICSI--> 4 2pn--> 2 blasts frozen (3AA and 5BB) * FET#1: Tried Estrace protocol--lining 2.5 mm. 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: * LMP: 05/29/21 * Menstrual cycles: Have been fairly regular for the past 3 months; 30-35 days * Pap smear: 2019, up to date * Mammogram: None * PMH/Surg Hx/Social Hx: See below * Hx of Clotting disorders: Yes- Protein S deficiency * Currently on Lovenox 40 mg daily * Was on Lovenox 60 mg daily prior to * Needs to be on therapeutic dosing when * Genetic Screening Hx: Parents R People foresight screen negative * Partner History: * Franklin Ashley 04/09/1990 * SA in past year: * 2.8 cc * 125 mil/mL * 69% motility * DSD=484 million * (recent IUI sample) * Morph from original SA was 2.8% [id number] 310 IVF Work Phone: Evaluation note* Diagnosis Sprain of left ankle, unspecified ligament, initial encounter- Primary [facility] [employer] [facility] Work Phone: evaluation note* Diagnosis Third trimester state, incidental First trimester state, incidental Hypothyroidism, unspecified type (CMS/HCC) Hypothyroidism (acquired) (CMS/HCC) Unspecified hypothyroidism H/O blood clots Excessive growth affecting management of in third trimester, single or unspecified fetus documented in this encounter [facility] HealthcareEvaluation note* Diagnosis Abnormal uterine bleeding (AUB) Menorrhagia with regular cycle PCOS (polycystic ovarian syndrome) Polycystic ovaries H/O blood clots documented in this encounter [facility] HealthcareEvaluation [facility]* Diagnosis Acquired hypothyroidism- Primary Unspecified hypothyroidism [facility] assessment information available [facility] Work Phone: Evaluation note* Diagnosis Acute non-recurrent maxillary sinusitis- Primary Acquired hypothyroidism Unspecified hypothyroidism [facility] Attachments The following attachments cannot be sent through Care Everywhere. * Ankle Sprain ([place]) * Ankle Sprain: Rehab Exercises ([place]) [facility] Work Phone: InstructionsNot on filedocumented in this encounter [facility]* Attachments The following attachments cannot be sent through Care Everywhere. * Sinusitis in adults ([place]) [facility] Purpose Family History No Family History [...] Status:Active Advance Directives No Advanced Directives Records Found Advance Directive Response Recorded Date/ Time Advance Directives No March 30 12:00pm Chief Complaint and Reason for Visit Chief Complaint z23 Additional Source Comments INFORMATION SOURCE (unrecogn ized section and content) DATE CREATED AUTHOR 02/15/2019 [facility] DATE CREATED AUTHOR AUTHOR'S ORGANIZ ATION 11/12/2019 [facility] DATE CREATED AUTHOR AUTHOR'S ORGANIZ ATION 08/09/2020 [facility] DATE CREATED AUTHOR AUTHOR'S ORGANIZ ATION 07/26/2021 [employer] DATE CREATED AUTHOR AUTHOR'S ORGANIZ ATION 01/21/2023 [facility] DATE CREATED AUTHOR AUTHOR'S ORGANIZ ATION 03/06/2023 [facility] DATE CREATED AUTHOR AUTHOR'S ORGANIZ ATION 07/12/2023 [facility] DATE CREATED AUTHOR AUTHOR'S ORGANIZ ATION 01/15/2024 [facility] DATE CREATED AUTHOR AUTHOR'S ORGANIZ ATION 08/17/2024 [facility] DATE CREATED AUTHOR AUTHOR'S ORGANIZ ATION 08/22/2024 [facility] DATE CREATED AUTHOR AUTHOR'S ORGANIZ ATION 09/30/2024 [facility] DATE CREATED AUTHOR AUTHOR'S ORGANIZ ATION 10/12/2024 [facility] REASON FOR VISIT (unrecogniz ed section and content) Reason Comments Ankle Pain Rolled ankle during morning run. Swelling to lateral ankle. 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 Reason Comments Routine Visit Reason Comments Menstrual Problem Reason Comments Sinusitis Care Teams (unrecognized sec tion and content) Spark Plug Assembler Relationship Specialty Start Date End Date Evelyn Perez [address] [place] [id number] PCP - General Pediatrics 09/22/22 Spark Plug Assembler Relationship Specialty Start Date End Date Jesse Regan MD [address] [place] [address] PCP - General Family Medicine 11/30/23 Spark Plug Assembler Relationship Specialty Start Date End Date Jesse Regan MD [address] [place] [address] PCP - General Family Medicine 11/30/23 Spark Plug Assembler Relationship Specialty Start Date End Date Jesse Regan MD [address] [place] [address] PCP - General Family Medicine 11/30/23 Spark Plug Assembler Relationship Specialty Start Date End Date Jesse Regan MD [address] [place] [address] PCP - General Family Medicine 11/30/23 Spark Plug Assembler Relationship Specialty Start Date End Date Nikhil Garces APRN-MANAGER WATER WASTEWATER [address] [place] [address] PCP - General Family Medicine 10/28/23 Team Status: Active Member Role Status Dates Evelyn Perez MD Primary Care Provider Active Team Status: Inactive Member Role Status Dates Evelyn Perez MD Primary Care Provider Active Start: September 07, 2024 End: September 07, 2024 [facility] Attending Provider Active Start: September 07, 2024 End: September 07, 2024 Spark Plug Assembler Relationship Specialty Start Date End Date Nikhil Garces, HUMAN INSIGHTS LEAD ADS MARKETING-MANAGER WATER WASTEWATER [address] [place] [address] PCP - General Family Medicine 10/28/23 Goals (unrecognized section and content) Goals may be documented in a n alternate section FOR RECORDS PERTAINING TO PATIENTS WHO ARE [...] BE BASED ON THE PRIMARY CLINICAL RECORDS. [facility]. provides no warranty or guarantee of the accuracy or completeness of information in this document.
[2024-11-09 13:07] LABS: Age Gdln ACOG Testing Note (.); HPV Aptima Negative (Negative); IGP, Aptima HPV, rfx 16/18,45 Note (.)
== END 2024-10-31 19:28 | disposition home or self-care (01) ==
LOC: LAB 19:27
PROVIDERS: PCP Obstetrics & Gynecology; Visit Provider Physician Assistant
DX: Z01.419 Encounter for gynecological examination (general) (routine) without abnormal findings (principal)
CPT/HCPCS: 87624; 88175